=== PATIENT | female | born 1970 | race African-American/Black ===

== ENCOUNTER 2016-11-03 13:23 | Inpatient (IN) | payer MEDICAID ==
[2016-11-03] MEDS ORDERED: MORPHINE SULFATE 10 MG/ML INJ ONE (13:39)
[2016-11-03] MEDS ORDERED: HYDROMORPHONE HCL INJ/PF 2 MG/ML AMPULE ONE ×2 (14:25→19:50)
[2016-11-03] MEDS ORDERED: HYDROXYUREA 500 MG CAPSULE PO SCH (22:00)
[2016-11-03] MEDS ORDERED: WARFARIN SODIUM 5 MG TABLET PO SCH (22:00)
[2016-11-04] MEDS: OXYCODONE HCL SR 40 MG TABLET PO SCH ×3 (06:33→22:49)
[2016-11-04] MEDS: HYDROMORPHONE HCL INJ/PF 2 MG/ML AMPULE IV PRN ×5 (07:52→23:57)
[2016-11-04] MEDS: FOLIC ACID 1 MG TABLET PO SCH (09:06)
[2016-11-04 09:09] LABS: HEMATOCRIT 28.8 % (36.0-47.0); HEMOGLOBIN 9.7 g/dL (12.0-15.5); HGB HCT DIFFERENCE 0.3; MEAN CORPUSCULAR HGB CONC 33.8 g/dL (32.0-36.0); MEAN CORPUSCULAR VOLUME 136 fl (80-97); RED BLOOD COUNT 2.12 10^6/uL (3.72-5.28); RED CELL DISTRIBUTION WIDTH 18.8 % (11.5-14.0)
[2016-11-04 09:11] LABS: BASOPHILS % (MANUAL) 0 % (0-2); EOSINOPHILS % (MANUAL) 0 % (0-6); HYPOCHROMASIA 1+; LYMPHOCYTES % (MANUAL) 30 % (13-45); NUCLEATED RED BLOOD CELLS 80 /100 WBC (0); OVALOCYTES 1+; POIKILOCYTOSIS 2+; POLYCHROMASIA 2+; SCHISTOCYTES SLIGHT; TOTAL CELLS COUNTED 100
[2016-11-04 09:12] LABS: HOWELL-JOLLY BODIES PRESENT; RBC MORPHOLOGY COMMENT FOLDED RBCS NOTED
[2016-11-04 09:13] LABS: TEAR DROP CELLS SLIGHT
[2016-11-04] MEDS: OXYCODONE HCL IR 5 MG TABLET PO PRN (09:42)
--- NOTE | 2016-11-04 10:35 | EKG REPORT ---
SEVERITY:- NORMAL ECG - SINUS RHYTHM : Confirmed by: No Boss MD 04-Nov-2016 10:34:37
[2016-11-04] MEDS: ACETAMINOPHEN 325 MG TABLET PO PRN ×2 (12:53→20:02)
[2016-11-04 14:00] LABS: APPEARANCE,URINE CLEAR; BILIRUBIN,URINE NEGATIVE (NEGATIVE); GLUCOSE, URINE NEGATIVE (NEGATIVE); KETONES,URINE TRACE mg/dL (NEGATIVE); LEUKOCYTE ESTERASE,URINE NEGATIVE (NEGATIVE); NITRITE,URINE NEGATIVE (NEGATIVE); PROTEIN,URINE NEGATIVE (NEGATIVE); URINE SPECIFIC GRAVITY 1.009; UROBILINOGEN,URINE NEGATIVE mg/dL (<2.0)
[2016-11-04 15:42] LABS: BLOOD UREA NITROGEN 6 mg/dL (7-20); CALCIUM 9.9 mg/dL (8.4-10.2); CREATININE RESULT 0.59 mg/dL (0.52-1.25); GLUCOSE 106 mg/dL (75-110); POTASSIUM 3.6 mmol/L (3.6-5.0)
[2016-11-04 15:43] LABS: ALANINE AMINOTRANSFERASE 43 U/L (9-52); ALBUMIN 4.9 g/dL (3.5-5.0); ALKALINE PHOSPHATASE 179 U/L (38-126); ANION GAP 15 (5-19); ASPARTATE AMINO TRANSFERASE 50 U/L (14-36); BILIRUBIN,DIRECT 1.1 mg/dL (0.0-0.4); BILIRUBIN,TOTAL 4.6 mg/dL (0.2-1.3); CARBON DIOXIDE 19 mmol/L (22-30); CHLORIDE 112 mmol/L (98-107); SODIUM 146.2 mmol/L (137-145)
[2016-11-04 15:44] LABS: TOTAL PROTEIN 8.5 g/dL (6.3-8.2)
[2016-11-04] MEDS: ONDANSETRON HCL INJ/PF 4 MG/2 ML SDV IV PRN (16:08)
--- NOTE | 2016-11-04 20:00 | PDOC H&P ---
History of Present Illness Admission Date/PCP: 11/03/16 18:20 HOMA BARRAZA MD History of Present Illness: WILLIE ALAN is a 46 year old female, she has a history of sickle cell disease, she came to the emergency room because generalized body pain. She was seen in the emergency room and she was evaluated and she was advised to be admitted . The last admission for significant bone pain crisis was April 2016. 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 Past Surgical History Past Surgical History: Reports: Appendectomy, Section, Cholecystectomy , Orthopedic Surgery - R knee, Tonsillectomy Social History Smoking Status: Never Smoker Frequency of Alcohol Use: None Hx Recreational Drug Use: No Drugs: None Hx Prescription Drug Abuse: No Family History Family History: Reviewed & Not Pertinent Parental Family History Reviewed: Yes Children Family History Reviewed: Yes Sibling(s) Family History Reviewed.: Yes Medication/Allergy Home Medications: Epoetin Federico [Procrit] 35,000 unit IJ FR 11/03/16 Folic Acid [Folvite 1 mg Tablet] 1 mg PO DAILY 11/03/16 Hydroxyurea [Hydrea 500 Mg Capsule] 500 mg PO Q12 11/03/16 Ibuprofen [Motrin 800 mg Tablet] 800 mg PO BID 11/03/16 Multivitamin [Daily Multiple Vitamin] 1 each PO DAILY 11/03/16 Oxycodone HCl [Oxycontin Sr 40 mg Tablet] 40 mg PO Q8 11/03/16 Oxycodone HCl [Roxicodone] 30 mg PO Q6HP PRN 11/03/16 Rivaroxaban [Xarelto] 20 mg PO DAILY 11/03/16 Allergies/Adverse Reactions: doxycycline [Doxycycline] Allergy (Severe, Verified 10/31/14 18:48) morphine [Morphine] Allergy (Severe, Verified 10/31/14 18:48) unknown antibiotic Allergy (Uncoded 02/27/16 09:34) Review of Systems Constitutional: ABSENT: chills, fever(s), headache(s), weight gain, weight loss Eyes: ABSENT: visual disturbances Ears: ABSENT: hearing changes Cardiovascular: ABSENT: chest pain, dyspnea on exertion, edema, orthropnea, palpitations Respiratory: ABSENT: cough, hemoptysis Gastrointestinal: ABSENT: abdominal pain, constipation, diarrhea, hematemesis, hematochezia, nausea, vomiting Genitourinary: ABSENT: dysuria, hematuria Musculoskeletal: PRESENT: back pain, muscle weakness. ABSENT: joint swelling Integumentary: ABSENT: rash, wounds Neurological: ABSENT: abnormal gait, abnormal speech, confusion, dizziness, focal weakness, syncope Psychiatric: ABSENT: anxiety, depression, homidical ideation, suicidal ideation Endocrine: ABSENT: cold intolerance, heat intolerance, menstrual abnormalities, polydipsia, polyuria Hematologic/Lymphatic: ABSENT: easy bleeding, easy bruising, lymphadenopathy Physical Exam Vital Signs: Temp Pulse Resp BP Pulse Ox 98.2 F 65 19 109/67 97 11/04/16 15:00 11/04/16 15:00 11/04/16 15:00 11/04/16 15:00 11/04/16 15:00 Intake & Output 11/03/16 11/04/16 11/05/16 06:59 06:59 06:59 Intake Total 1440 1707 Output Total 0 1300 Balance 1440 407 Weight 59.4 kg General appearance: PRESENT: mild distress Head exam: PRESENT: atraumatic, normocephalic Eye exam: PRESENT: conjunctiva pink, EOMI, PERRLA Ear exam: PRESENT: normal external ear exam Mouth exam: PRESENT: moist, tongue midline Neck exam: PRESENT: full ROM Respiratory exam: PRESENT: clear to auscultation carolyn Cardiovascular exam: PRESENT: RRR, +S1, +S2 Pulses: PRESENT: normal dorsalis pedis pul, +2 pedal pulses bilateral Vascular exam: PRESENT: normal capillary refill GI/Abdominal exam: PRESENT: normal bowel sounds, soft Rectal exam: PRESENT: deferred Neurological exam: PRESENT: alert, awake, oriented to person, oriented to place , oriented to time, oriented to situation, CN II-XII grossly intact Psychiatric exam: PRESENT: appropriate affect, normal mood Skin exam: PRESENT: dry, intact, warm Results Impressions: Chest X-Ray 11/03/16 12:52 IMPRESSION: STABLE APPEARANCE OF THE CHEST. SUPPORT DEVICES UNCHANGED. Assessment & Plan - Diagnosis (1) Sickle cell anemia with crisis Is this a current diagnosis for this admission?: YesPlan: Admitted into the hospital for management
--- NOTE | 2016-11-04 20:03 | PDOC PROGRESS REPORT ---
Subjective Progress Note for:: 11/04/16 Subjective:: She was admitted yesterday for bone pain crisis from sickle cell disease Physical Exam Vital Signs: Temp Pulse Resp BP Pulse Ox 98.2 F 65 19 109/67 97 11/04/16 15:00 11/04/16 15:00 11/04/16 15:00 11/04/16 15:00 11/04/16 15:00 Intake & Output 11/03/16 11/04/16 11/05/16 06:59 06:59 06:59 Intake Total 1440 1707 Output Total 0 1300 Balance 1440 407 Weight 59.4 kg General appearance: PRESENT: mild distress Eye exam: PRESENT: PERRLA Neck exam: PRESENT: full ROM Respiratory exam: PRESENT: clear to auscultation carolyn Cardiovascular exam: PRESENT: RRR, +S1, +S2 GI/Abdominal exam: PRESENT: normal bowel sounds, soft Rectal exam: PRESENT: deferred Neurological exam: PRESENT: alert, awake, oriented to person, oriented to place , oriented to time, oriented to situation, CN II-XII grossly intact. ABSENT: motor sensory deficit Psychiatric exam: PRESENT: appropriate affect, normal mood. ABSENT: homicidal ideation, suicidal ideation Skin exam: PRESENT: dry, intact, warm Results Impressions: Chest X-Ray 11/03/16 12:52 IMPRESSION: STABLE APPEARANCE OF THE CHEST. SUPPORT DEVICES UNCHANGED. Assessment & Plan - Diagnosis (1) Sickle cell anemia with crisis Is this a current diagnosis for this admission?: YesPlan: She is presently on IV Dilaudid for pain control, IV fluids, there is no evidence of infection , treated with IV Toradol
[2016-11-04 21:16] LABS: HEMATOCRIT 22.2 % (36.0-47.0); HGB HCT DIFFERENCE 0.9; MEAN CORPUSCULAR HEMOGLOBIN 46.2 pg (27.0-33.4); MEAN CORPUSCULAR HGB CONC 34.7 g/dL (32.0-36.0); MEAN CORPUSCULAR VOLUME 133 fl (80-97); RED BLOOD COUNT 1.66 10^6/uL (3.72-5.28); RED CELL DISTRIBUTION WIDTH 17.8 % (11.5-14.0); WHITE BLOOD COUNT 4.6 10^3/uL (4.0-10.5)
[2016-11-04 21:27] LABS: ALANINE AMINOTRANSFERASE 37 U/L (9-52); ALBUMIN 3.9 g/dL (3.5-5.0); ALKALINE PHOSPHATASE 121 U/L (38-126); ANION GAP 9 (5-19); ASPARTATE AMINO TRANSFERASE 40 U/L (14-36); BILIRUBIN,DIRECT 0.8 mg/dL (0.0-0.4); BILIRUBIN,TOTAL 3.5 mg/dL (0.2-1.3); BLOOD UREA NITROGEN 4 mg/dL (7-20); CALCIUM 8.8 mg/dL (8.4-10.2); CARBON DIOXIDE 22 mmol/L (22-30); CHLORIDE 113 mmol/L (98-107); CREATININE RESULT 0.56 mg/dL (0.52-1.25); GLUCOSE 94 mg/dL (75-110); LDH 825 U/L (313-618); POTASSIUM 3.5 mmol/L (3.6-5.0); SODIUM 143.9 mmol/L (137-145); TOTAL PROTEIN 6.4 g/dL (6.3-8.2)
[2016-11-04 21:30] LABS: BASOPHILS % (MANUAL) 0 % (0-2); EOSINOPHILS % (MANUAL) 3 % (0-6); LYMPHOCYTES % (MANUAL) 44 % (13-45); NUCLEATED RED BLOOD CELLS 58 /100 WBC (0); TOTAL CELLS COUNTED 100
[2016-11-04 21:35] LABS: ANISOCYTOSIS 1+; HELMET CELLS SLIGHT; HOWELL-JOLLY BODIES PRESENT; OVALOCYTES SLIGHT; POIKILOCYTOSIS 2+; TARGET CELLS 1+
[2016-11-04 21:38] LABS: HEMOGLOBIN 7.7 g/dL (12.0-15.5)
[2016-11-04 22:02] LABS: PROTHROMBIN TIME 18.1 SEC (11.4-15.4)
[2016-11-04] MEDS: WARFARIN SODIUM 5 MG TABLET PO SCH (22:49)
[2016-11-04] MEDS: KETOROLAC TROMETHAMINE INJ/PF 30 MG/1 ML SDV IV SCH (23:57)
[2016-11-05] MEDS: HYDROMORPHONE HCL INJ/PF 2 MG/ML AMPULE IV PRN ×5 (03:56→21:45)
[2016-11-05] MEDS: OXYCODONE HCL SR 40 MG TABLET PO SCH ×3 (06:27→22:09)
[2016-11-05] MEDS: KETOROLAC TROMETHAMINE INJ/PF 30 MG/1 ML SDV IV SCH ×3 (06:28→17:34)
[2016-11-05 06:49] LABS: ALANINE AMINOTRANSFERASE 35 U/L (9-52); ALBUMIN 3.6 g/dL (3.5-5.0); ALKALINE PHOSPHATASE 125 U/L (38-126); ANION GAP 7 (5-19); ASPARTATE AMINO TRANSFERASE 38 U/L (14-36); BILIRUBIN,TOTAL 3.9 mg/dL (0.2-1.3); BLOOD UREA NITROGEN 6 mg/dL (7-20); CALCIUM 8.7 mg/dL (8.4-10.2); CARBON DIOXIDE 20 mmol/L (22-30); CHLORIDE 116 mmol/L (98-107); CREATININE RESULT 0.68 mg/dL (0.52-1.25); GLUCOSE 92 mg/dL (75-110); POTASSIUM 3.8 mmol/L (3.6-5.0); SODIUM 143.1 mmol/L (137-145); TOTAL PROTEIN 6.4 g/dL (6.3-8.2)
[2016-11-05 07:58] LABS: HEMATOCRIT 21.8 % (36.0-47.0); MEAN CORPUSCULAR HEMOGLOBIN 46.1 pg (27.0-33.4); MEAN CORPUSCULAR HGB CONC 34.6 g/dL (32.0-36.0); MEAN CORPUSCULAR VOLUME 133 fl (80-97); RED BLOOD COUNT 1.64 10^6/uL (3.72-5.28); RED CELL DISTRIBUTION WIDTH 18.3 % (11.5-14.0); WHITE BLOOD COUNT 4.1 10^3/uL (4.0-10.5)
[2016-11-05 08:31] LABS: HEMOGLOBIN 7.6 g/dL (12.0-15.5)
[2016-11-05 08:41] LABS: BASOPHILS % (MANUAL) 1 % (0-2); EOSINOPHILS % (MANUAL) 5 % (0-6); LYMPHOCYTES % (MANUAL) 44 % (13-45); NUCLEATED RED BLOOD CELLS 85 /100 WBC (0); TOTAL CELLS COUNTED 100
[2016-11-05 08:45] LABS: HOWELL-JOLLY BODIES PRESENT
[2016-11-05 08:55] LABS: STOMATOCYTES SLIGHT
[2016-11-05 08:56] LABS: OVALOCYTES 1+; SCHISTOCYTES 1+; TARGET CELLS 1+; TEAR DROP CELLS SLIGHT
[2016-11-05 09:00] LABS: ANISOCYTOSIS 2+
[2016-11-05 09:02] LABS: POIKILOCYTOSIS 1+
[2016-11-05] MEDS ORDERED: EPOETIN ALFA SUBCUT SCH (10:00)
[2016-11-05] MEDS ORDERED: DISPOSABLE SUBCUT SCH (10:00)
[2016-11-05] MEDS: FOLIC ACID 1 MG TABLET PO SCH (10:04)
[2016-11-05] MEDS: ONDANSETRON HCL INJ/PF 4 MG/2 ML SDV IV PRN ×2 (10:39→21:45)
[2016-11-05] MEDS: OXYCODONE HCL IR 5 MG TABLET PO PRN (10:39)
[2016-11-05] MEDS ORDERED: EPOETIN ALFA INJ 20000 UNIT/1 ML VIAL (RENAL) SUBCUT ONE (11:00)
[2016-11-05] MEDS ORDERED: EPOETIN ALFA INJ 40000 UNIT/1 ML (ONCOLOGY) SUBCUT ONE (11:00)
--- NOTE | 2016-11-05 21:47 | PDOC PROGRESS REPORT ---
Subjective Progress Note for:: 11/05/16 Subjective:: She complains of pain of multiple areas of the body Physical Exam Vital Signs: Temp Pulse Resp BP Pulse Ox 98.3 F 56 L 18 106/63 99 11/05/16 16:01 11/05/16 16:01 11/05/16 16:01 11/05/16 16:01 11/05/16 16:01 Intake & Output 11/04/16 11/05/16 11/06/16 06:59 06:59 06:59 Intake Total 1440 4355 1200 Output Total 0 2700 Balance 1440 1655 1200 Weight 59.4 kg General appearance: PRESENT: mild distress Eye exam: PRESENT: PERRLA Respiratory exam: PRESENT: clear to auscultation carolyn Cardiovascular exam: PRESENT: +S1, +S2 GI/Abdominal exam: PRESENT: soft Results Laboratory Results: 11/05/16 07:28 11/05/16 06:20 11/05/16 11/05/16 11/05/16 06:20 06:20 07:28 WBC Cancelled 4.1 RBC Cancelled 1.64 L Hgb Cancelled 7.6 L Hct Cancelled 21.8 L MCV Cancelled 133 H MCH Cancelled 46.1 H MCHC Cancelled 34.6 RDW Cancelled 18.3 H Plt Count Cancelled 135 L Seg Neutrophils % Cancelled Not Reportable Lymphocytes % Cancelled Not Reportable Monocytes % Cancelled Not Reportable Eosinophils % Cancelled Not Reportable Basophils % Cancelled Not Reportable Absolute Neutrophils Cancelled Not Reportable Absolute Lymphocytes Cancelled Not Reportable Absolute Monocytes Cancelled Not Reportable Absolute Eosinophils Cancelled Not Reportable Absolute Basophils Cancelled Not Reportable Sodium 143.1 Potassium 3.8 Chloride 116 H Carbon Dioxide 20 L Anion Gap 7 BUN 6 L Creatinine 0.68 Est GFR ( Amer) > 60 Est GFR (Non-Af Amer) > 60 Glucose 92 Calcium 8.7 Total Bilirubin 3.9 H AST 38 H ALT 35 Alkaline Phosphatase 125 Total Protein 6.4 Albumin 3.6 Impressions: Chest X-Ray 11/03/16 12:52 IMPRESSION: STABLE APPEARANCE OF THE CHEST. SUPPORT DEVICES UNCHANGED. Assessment & Plan - Diagnosis (1) Sickle cell anemia with crisis Is this a current diagnosis for this admission?: Yes
[2016-11-05] MEDS: WARFARIN SODIUM 5 MG TABLET PO SCH (22:09)
[2016-11-06] MEDS: OXYCODONE HCL IR 5 MG TABLET PO PRN ×2 (00:08→16:39)
[2016-11-06] MEDS: KETOROLAC TROMETHAMINE INJ/PF 30 MG/1 ML SDV IV SCH ×4 (00:09→17:22)
[2016-11-06] MEDS: HYDROMORPHONE HCL INJ/PF 2 MG/ML AMPULE IV PRN ×6 (01:54→22:47)
[2016-11-06] MEDS: OXYCODONE HCL SR 40 MG TABLET PO SCH ×3 (05:09→21:37)
[2016-11-06] MEDS: ONDANSETRON HCL INJ/PF 4 MG/2 ML SDV IV PRN ×2 (06:00→13:56)
[2016-11-06 06:38] LABS: APPEARANCE,URINE CLEAR; BILIRUBIN,URINE NEGATIVE (NEGATIVE); GLUCOSE, URINE NEGATIVE (NEGATIVE); KETONES,URINE NEGATIVE (NEGATIVE); LEUKOCYTE ESTERASE,URINE MODERATE (NEGATIVE); NITRITE,URINE NEGATIVE (NEGATIVE); PROTEIN,URINE NEGATIVE (NEGATIVE); URINE SPECIFIC GRAVITY 1.006
[2016-11-06 06:41] LABS: PROTHROMBIN TIME 16.8 SEC (11.4-15.4)
[2016-11-06] MEDS: FOLIC ACID 1 MG TABLET PO SCH (09:05)
--- NOTE | 2016-11-06 10:58 | PDOC PROGRESS REPORT ---
Subjective Progress Note for:: 11/06/16 Subjective:: Patient was admitted for the sickle cell crisis and currently doing fair patient is complaining of right leg pain which is chronic Denied any chest pain denied any shortness of breath Physical Exam Vital Signs: Temp Pulse Resp BP Pulse Ox 98.5 F 66 16 105/63 96 11/06/16 07:58 11/06/16 07:58 11/06/16 07:58 11/06/16 07:58 11/06/16 07:58 Intake & Output 11/05/16 11/06/16 11/07/16 06:59 06:59 06:59 Intake Total 4355 2700 Output Total 2700 1800 Balance 1655 900 General appearance: PRESENT: no acute distress, well-developed, well-nourished Head exam: PRESENT: atraumatic, normocephalic Eye exam: PRESENT: conjunctiva pink, EOMI, PERRLA. ABSENT: scleral icterus Ear exam: PRESENT: normal external ear exam Mouth exam: PRESENT: moist, tongue midline Neck exam: PRESENT: full ROM. ABSENT: carotid bruit, JVD, lymphadenopathy, thyromegaly Cardiovascular exam: PRESENT: RRR. ABSENT: diastolic murmur, rubs, systolic murmur Pulses: PRESENT: normal dorsalis pedis pul, +2 pedal pulses bilateral Vascular exam: PRESENT: normal capillary refill GI/Abdominal exam: PRESENT: normal bowel sounds, soft. ABSENT: distended, guarding, mass, organolmegaly, rebound, tenderness Rectal exam: PRESENT: deferred Additional comments: On the right leg with the chronic status dermatitis Neurological exam: PRESENT: alert, awake, oriented to person, oriented to place , oriented to time, oriented to situation, CN II-XII grossly intact. ABSENT: motor sensory deficit Psychiatric exam: PRESENT: appropriate affect, normal mood. ABSENT: homicidal ideation, suicidal ideation Skin exam: PRESENT: dry, intact, warm. ABSENT: cyanosis, rash Results Laboratory Results: 11/05/16 07:28 11/05/16 06:20 11/06/16 06:10 Urine Color YELLOW Urine Appearance CLEAR Urine pH 6.0 Ur Specific [place] 1.006 Urine Protein NEGATIVE Urine Glucose (UA) NEGATIVE Urine Ketones NEGATIVE Urine Blood SMALL H Urine Nitrite NEGATIVE Ur Leukocyte Esterase MODERATE H Urine WBC (Auto) 4 Urine RBC (Auto) 1 Impressions: Chest X-Ray 11/03/16 12:52 IMPRESSION: STABLE APPEARANCE OF THE CHEST. SUPPORT DEVICES UNCHANGED. Assessment & Plan - Diagnosis (1) Sickle cell anemia with crisis Is this a current diagnosis for this admission?: YesPlan: Continues to current medications (2) Anemia Qualifiers: Anemia type: unspecified type Qualified Code(s): D64.9 - Anemia, unspecified Is this a current diagnosis for this admission?: YesPlan: Currently stable - Time Time Spent with patient: 15-24 minutes Medications reviewed and adjusted accordingly: Yes Anticipated discharge: Home, Other Within: Other - Inpatient Certification Medical Necessity: Need Close Monitoring Due to Risk of Patient Decompensation Post Hospital Care: D/C Property Field Inspector Documentation - Plan Summary Plan Summary: We will check a CBC and Chem-7 in the morning
[2016-11-06] MEDS: NORMAL SALINE 1000 ML 1,000 ML IV PRN (16:45)
[2016-11-06] MEDS: WARFARIN SODIUM 5 MG TABLET PO SCH (21:38)
[2016-11-07] MEDS: KETOROLAC TROMETHAMINE INJ/PF 30 MG/1 ML SDV IV SCH ×5 (00:42→23:57)
[2016-11-07] MEDS: HYDROMORPHONE HCL INJ/PF 2 MG/ML AMPULE IV PRN ×6 (03:02→23:03)
[2016-11-07] MEDS: OXYCODONE HCL SR 40 MG TABLET PO SCH ×3 (05:39→21:27)
[2016-11-07 05:43] LABS: ANION GAP 8 (5-19); BLOOD UREA NITROGEN 9 mg/dL (7-20); CALCIUM 8.6 mg/dL (8.4-10.2); CARBON DIOXIDE 21 mmol/L (22-30); CHLORIDE 114 mmol/L (98-107); CREATININE RESULT 0.69 mg/dL (0.52-1.25); GLUCOSE 97 mg/dL (75-110); POTASSIUM 3.5 mmol/L (3.6-5.0); SODIUM 143.3 mmol/L (137-145)
[2016-11-07 06:31] LABS: PROTHROMBIN TIME 17.4 SEC (11.4-15.4)
[2016-11-07] MEDS: OXYCODONE HCL IR 5 MG TABLET PO PRN (09:19)
[2016-11-07] MEDS: FOLIC ACID 1 MG TABLET PO SCH (09:21)
--- NOTE | 2016-11-07 10:45 | PDOC PROGRESS REPORT ---
Subjective Progress Note for:: 11/07/16 Subjective:: Patient is doing same still complains of pain in the leg and the hand. Patient' s all blood work is currently stable Physical Exam Vital Signs: Temp Pulse Resp BP Pulse Ox 98.4 F 70 20 100/60 97 11/07/16 08:00 11/07/16 08:00 11/07/16 08:00 11/07/16 08:00 11/07/16 08:00 Intake & Output 11/06/16 11/07/16 11/08/16 06:59 06:59 06:59 Intake Total 2700 3326 Output Total 1800 3100 Balance 900 226 Weight 65.8 kg General appearance: PRESENT: no acute distress, well-developed, well-nourished Head exam: PRESENT: atraumatic, normocephalic Eye exam: PRESENT: conjunctiva pink, EOMI, PERRLA. ABSENT: scleral icterus Ear exam: PRESENT: normal external ear exam Mouth exam: PRESENT: moist, tongue midline Neck exam: PRESENT: full ROM. ABSENT: carotid bruit, JVD, lymphadenopathy, thyromegaly Cardiovascular exam: PRESENT: RRR. ABSENT: diastolic murmur, rubs, systolic murmur Pulses: PRESENT: normal dorsalis pedis pul, +2 pedal pulses bilateral Vascular exam: PRESENT: normal capillary refill GI/Abdominal exam: PRESENT: normal bowel sounds, soft. ABSENT: distended, guarding, mass, organolmegaly, rebound, tenderness Rectal exam: PRESENT: deferred Extremities exam: PRESENT: other Additional comments: Chronic status dermatitis type of the changes in the lower extremities especially on the left leg Neurological exam: PRESENT: alert, awake, oriented to person, oriented to place , oriented to time, oriented to situation, CN II-XII grossly intact. ABSENT: motor sensory deficit Psychiatric exam: PRESENT: appropriate affect, normal mood. ABSENT: homicidal ideation, suicidal ideation Skin exam: PRESENT: dry, intact, warm. ABSENT: cyanosis, rash Results Laboratory Results: 11/05/16 07:28 11/07/16 05:00 11/07/16 05:00 Sodium 143.3 Potassium 3.5 L Chloride 114 H Carbon Dioxide 21 L Anion Gap 8 BUN 9 Creatinine 0.69 Est GFR ( Amer) > 60 Est GFR (Non-Af Amer) > 60 Glucose 97 Calcium 8.6 Impressions: Chest X-Ray 11/03/16 12:52 IMPRESSION: STABLE APPEARANCE OF THE CHEST. SUPPORT DEVICES UNCHANGED. Assessment & Plan - Diagnosis (1) Sickle cell anemia with crisis Is this a current diagnosis for this admission?: YesPlan: Continues to current medications (2) Anemia Qualifiers: Anemia type: unspecified type Qualified Code(s): D64.9 - Anemia, unspecified Is this a current diagnosis for this admission?: YesPlan: Currently stable - Time Time Spent with patient: 15-24 minutes Medications reviewed and adjusted accordingly: Yes Anticipated discharge: Home Within: Other - Inpatient Certification Medical Necessity: Need Close Monitoring Due to Risk of Patient Decompensation Post Hospital Care: D/C Medical Imaging Tech Documentation - Plan Summary Plan Summary: Continues to current medications
[2016-11-07] MEDS: ONDANSETRON HCL INJ/PF 4 MG/2 ML SDV IV PRN ×2 (10:47→23:03)
[2016-11-07] MEDS ORDERED: POTASSIUM CHLORIDE 10 MEQ TABLET.SA PO ONE (11:30)
[2016-11-07] MEDS: NORMAL SALINE 1000 ML 1,000 ML IV PRN (14:24)
[2016-11-07] MEDS: WARFARIN SODIUM 5 MG TABLET PO SCH (21:27)
[2016-11-08] MEDS: NORMAL SALINE 1000 ML 1,000 ML IV PRN (01:46)
[2016-11-08] MEDS: OXYCODONE HCL IR 5 MG TABLET PO PRN ×2 (01:48→16:29)
[2016-11-08] MEDS: HYDROMORPHONE HCL INJ/PF 2 MG/ML AMPULE IV PRN ×4 (03:13→19:47)
[2016-11-08] MEDS: KETOROLAC TROMETHAMINE INJ/PF 30 MG/1 ML SDV IV SCH ×3 (05:19→18:27)
[2016-11-08] MEDS: OXYCODONE HCL SR 40 MG TABLET PO SCH ×3 (05:19→23:01)
[2016-11-08 06:07] LABS: PROTHROMBIN TIME 17.4 SEC (11.4-15.4)
[2016-11-08 06:23] LABS: ANION GAP 10 (5-19); BLOOD UREA NITROGEN 10 mg/dL (7-20); CALCIUM 8.7 mg/dL (8.4-10.2); CARBON DIOXIDE 20 mmol/L (22-30); CHLORIDE 112 mmol/L (98-107); CREATININE RESULT 0.68 mg/dL (0.52-1.25); GLUCOSE 97 mg/dL (75-110); POTASSIUM 3.8 mmol/L (3.6-5.0); SODIUM 142.2 mmol/L (137-145)
[2016-11-08] MEDS: ONDANSETRON HCL INJ/PF 4 MG/2 ML SDV IV PRN (07:04)
[2016-11-08] MEDS: FOLIC ACID 1 MG TABLET PO SCH (11:16)
--- NOTE | 2016-11-08 16:50 | PDOC PROGRESS REPORT ---
Subjective Progress Note for:: 11/08/16 Subjective:: She was seen by the bedside, she continues to complain of pain of many joints. Physical Exam Vital Signs: Temp Pulse Resp BP Pulse Ox 98.5 F 57 L 20 115/63 98 11/08/16 11:07 11/08/16 11:07 11/08/16 11:07 11/08/16 11:07 11/08/16 11:07 Intake & Output 11/07/16 11/08/16 11/09/16 06:59 06:59 06:59 Intake Total 3326 3230 Output Total 3100 1300 Balance 226 1930 Weight 65.8 kg 66.6 kg General appearance: PRESENT: mild distress Eye exam: PRESENT: PERRLA Respiratory exam: PRESENT: clear to auscultation carolyn Cardiovascular exam: PRESENT: +S1, +S2 GI/Abdominal exam: PRESENT: soft Neurological exam: PRESENT: alert Results Laboratory Results: 11/05/16 07:28 11/08/16 05:15 11/08/16 05:15 Sodium 142.2 Potassium 3.8 Chloride 112 H Carbon Dioxide 20 L Anion Gap 10 BUN 10 Creatinine 0.68 Est GFR ( Amer) > 60 Est GFR (Non-Af Amer) > 60 Glucose 97 Calcium 8.7 Impressions: Chest X-Ray 11/03/16 12:52 IMPRESSION: STABLE APPEARANCE OF THE CHEST. SUPPORT DEVICES UNCHANGED. Assessment & Plan - Diagnosis (1) Sickle cell anemia with crisis Is this a current diagnosis for this admission?: YesPlan: Continue Present
[2016-11-08 18:58] LABS: HEMATOCRIT 22.4 % (36.0-47.0); HGB HCT DIFFERENCE 0.7; MEAN CORPUSCULAR HEMOGLOBIN 45.2 pg (27.0-33.4); MEAN CORPUSCULAR HGB CONC 34.2 g/dL (32.0-36.0); MEAN CORPUSCULAR VOLUME 132 fl (80-97); RED CELL DISTRIBUTION WIDTH 17.2 % (11.5-14.0); WHITE BLOOD COUNT 3.6 10^3/uL (4.0-10.5)
[2016-11-08 19:22] LABS: BASOPHILS % (MANUAL) 1 % (0-2); EOSINOPHILS % (MANUAL) 15 % (0-6); LYMPHOCYTES % (MANUAL) 37 % (13-45); NUCLEATED RED BLOOD CELLS 14 /100 WBC (0); TOTAL CELLS COUNTED 100
[2016-11-08 19:25] LABS: OVALOCYTES 1+; POLYCHROMASIA SLIGHT; TARGET CELLS 1+
[2016-11-08 19:26] LABS: ANISOCYTOSIS 1+; SCHISTOCYTES SLIGHT
[2016-11-08 19:29] LABS: HEMOGLOBIN 7.7 g/dL (12.0-15.5)
[2016-11-08] MEDS: WARFARIN SODIUM 5 MG TABLET PO SCH (23:13)
[2016-11-09] MEDS: KETOROLAC TROMETHAMINE INJ/PF 30 MG/1 ML SDV IV SCH ×5 (00:08→23:57)
[2016-11-09] MEDS: HYDROMORPHONE HCL INJ/PF 2 MG/ML AMPULE IV PRN ×6 (00:09→20:01)
[2016-11-09] MEDS: ONDANSETRON HCL INJ/PF 4 MG/2 ML SDV IV PRN ×3 (04:00→20:01)
[2016-11-09] MEDS: OXYCODONE HCL SR 40 MG TABLET PO SCH ×3 (06:03→21:45)
[2016-11-09] MEDS: NORMAL SALINE 1000 ML 1,000 ML IV PRN ×2 (06:03→16:11)
[2016-11-09 06:41] LABS: PROTHROMBIN TIME 19.9 SEC (11.4-15.4)
[2016-11-09 06:48] LABS: ANION GAP 9 (5-19); BLOOD UREA NITROGEN 9 mg/dL (7-20); CALCIUM 8.8 mg/dL (8.4-10.2); CARBON DIOXIDE 21 mmol/L (22-30); CHLORIDE 112 mmol/L (98-107); CREATININE RESULT 0.62 mg/dL (0.52-1.25); GLUCOSE 82 mg/dL (75-110); POTASSIUM 3.8 mmol/L (3.6-5.0)
[2016-11-09] MEDS: FOLIC ACID 1 MG TABLET PO SCH (10:09)
[2016-11-09 16:01] LABS: APPEARANCE,URINE CLEAR; BILIRUBIN,URINE NEGATIVE (NEGATIVE); GLUCOSE, URINE NEGATIVE (NEGATIVE); KETONES,URINE NEGATIVE (NEGATIVE); LEUKOCYTE ESTERASE,URINE TRACE (NEGATIVE); NITRITE,URINE NEGATIVE (NEGATIVE); PROTEIN,URINE NEGATIVE (NEGATIVE); URINE SPECIFIC GRAVITY 1.006; UROBILINOGEN,URINE NEGATIVE mg/dL (<2.0)
--- NOTE | 2016-11-09 18:47 | PDOC PROGRESS REPORT ---
Subjective Progress Note for:: 11/09/16 Subjective:: Seen by the bedside, she is still complain of pain pain but improving. Physical Exam Vital Signs: Temp Pulse Resp BP Pulse Ox 98.3 F 72 18 125/76 100 11/09/16 12:18 11/09/16 12:18 11/09/16 12:18 11/09/16 12:18 11/09/16 12:18 Intake & Output 11/08/16 11/09/16 11/10/16 06:59 06:59 06:59 Intake Total 4778 3330 1740 Output Total 2500 2100 Balance 2278 3330 -360 Weight 66.6 kg General appearance: PRESENT: no acute distress Head exam: PRESENT: atraumatic, normocephalic Eye exam: PRESENT: PERRLA Mouth exam: PRESENT: moist, tongue midline Neck exam: PRESENT: full ROM Respiratory exam: PRESENT: clear to auscultation carolyn Cardiovascular exam: PRESENT: +S1, +S2 Pulses: PRESENT: normal dorsalis pedis pul, +2 pedal pulses bilateral Vascular exam: PRESENT: normal capillary refill GI/Abdominal exam: PRESENT: normal bowel sounds, soft Rectal exam: PRESENT: deferred Neurological exam: PRESENT: alert, awake, oriented to person, oriented to place , oriented to time, oriented to situation, CN II-XII grossly intact Psychiatric exam: PRESENT: appropriate affect, normal mood Skin exam: PRESENT: dry, intact, warm Results Laboratory Results: 11/08/16 18:05 11/09/16 06:03 11/08/16 11/09/16 11/09/16 18:05 06:03 12:00 WBC 3.6 L RBC 1.70 L Hgb 7.7 L Hct 22.4 L MCV 132 H MCH 45.2 H MCHC 34.2 RDW 17.2 H Plt Count 82 L Seg Neutrophils % Not Reportable Lymphocytes % Not Reportable Monocytes % Not Reportable Eosinophils % Not Reportable Basophils % Not Reportable Absolute Neutrophils Not Reportable Absolute Lymphocytes Not Reportable Absolute Monocytes Not Reportable Absolute Eosinophils Not Reportable Absolute Basophils Not Reportable Sodium 142.0 Potassium 3.8 Chloride 112 H Carbon Dioxide 21 L Anion Gap 9 BUN 9 Creatinine 0.62 Est GFR ( Amer) > 60 Est GFR (Non-Af Amer) > 60 Glucose 82 Calcium 8.8 Urine Color Urine Appearance Urine pH Ur Specific [place] Urine Protein Urine Glucose (UA) Urine Ketones Urine Blood Urine Nitrite Ur Leukocyte Esterase Urine WBC (Auto) Urine RBC (Auto) Stool Occult Blood NEGATIVE 11/09/16 15:50 WBC RBC Hgb Hct MCV MCH MCHC RDW Plt Count Seg Neutrophils % Lymphocytes % Monocytes % Eosinophils % Basophils % Absolute Neutrophils Absolute Lymphocytes Absolute Monocytes Absolute Eosinophils Absolute Basophils Sodium Potassium Chloride Carbon Dioxide Anion Gap BUN Creatinine Est GFR ( Amer) Est GFR (Non-Af Amer) Glucose Calcium Urine Color YELLOW Urine Appearance CLEAR Urine pH 6.0 Ur Specific [place] 1.006 Urine Protein NEGATIVE Urine Glucose (UA) NEGATIVE Urine Ketones NEGATIVE Urine Blood SMALL H Urine Nitrite NEGATIVE Ur Leukocyte Esterase TRACE H Urine WBC (Auto) 3 Urine RBC (Auto) 1 Stool Occult Blood Impressions: Chest X-Ray 11/03/16 12:52 IMPRESSION: STABLE APPEARANCE OF THE CHEST. SUPPORT DEVICES UNCHANGED. Assessment & Plan - Diagnosis (1) Sickle cell anemia with crisis Is this a current diagnosis for this admission?: YesPlan: Continue Present
[2016-11-09] MEDS: WARFARIN SODIUM 5 MG TABLET PO SCH (21:45)
[2016-11-10] MEDS: HYDROMORPHONE HCL INJ/PF 2 MG/ML AMPULE IV PRN ×6 (00:34→20:26)
[2016-11-10] MEDS: ONDANSETRON HCL INJ/PF 4 MG/2 ML SDV IV PRN ×3 (04:21→16:27)
[2016-11-10] MEDS: OXYCODONE HCL SR 40 MG TABLET PO SCH ×2 (06:17→13:45)
[2016-11-10] MEDS: FOLIC ACID 1 MG TABLET PO SCH (09:02)
[2016-11-10 11:14] LABS: APPEARANCE,URINE CLEAR; BILIRUBIN,URINE NEGATIVE (NEGATIVE); GLUCOSE, URINE NEGATIVE (NEGATIVE); KETONES,URINE NEGATIVE (NEGATIVE); LEUKOCYTE ESTERASE,URINE TRACE (NEGATIVE); NITRITE,URINE NEGATIVE (NEGATIVE); PROTEIN,URINE NEGATIVE (NEGATIVE); URINE SPECIFIC GRAVITY 1.006; UROBILINOGEN,URINE NEGATIVE mg/dL (<2.0)
--- NOTE | 2016-11-10 14:40 | PDOC PROGRESS REPORT ---
Subjective Progress Note for:: 11/10/16 Subjective:: she was seen by the bedside ,she continues to complains of pain Physical Exam Vital Signs: Temp Pulse Resp BP Pulse Ox 98.7 F 55 L 18 124/63 99 11/10/16 11:53 11/10/16 11:53 11/10/16 11:53 11/10/16 11:53 11/10/16 11:53 Intake & Output 11/09/16 11/10/16 11/11/16 06:59 06:59 06:59 Intake Total 3330 3829 1200 Output Total 3700 Balance 3330 129 1200 General appearance: PRESENT: no acute distress Eye exam: PRESENT: PERRLA Respiratory exam: PRESENT: clear to auscultation carolyn Cardiovascular exam: PRESENT: +S1, +S2 GI/Abdominal exam: PRESENT: soft Results Laboratory Results: 11/08/16 18:05 11/09/16 06:03 11/09/16 11/10/16 15:50 10:35 Urine Color YELLOW YELLOW Urine Appearance CLEAR CLEAR Urine pH 6.0 6.0 Ur Specific [place] 1.006 1.006 Urine Protein NEGATIVE NEGATIVE Urine Glucose (UA) NEGATIVE NEGATIVE Urine Ketones NEGATIVE NEGATIVE Urine Blood SMALL H SMALL H Urine Nitrite NEGATIVE NEGATIVE Ur Leukocyte Esterase TRACE H TRACE H Urine WBC (Auto) 3 2 Urine RBC (Auto) 1 1 Impressions: Chest X-Ray 11/03/16 12:52 IMPRESSION: STABLE APPEARANCE OF THE CHEST. SUPPORT DEVICES UNCHANGED. Assessment & Plan - Diagnosis (1) Sickle cell anemia with crisis Is this a current diagnosis for this admission?: YesPlan: Continue Present
[2016-11-10] MEDS: WARFARIN SODIUM 5 MG TABLET PO SCH (21:53)
[2016-11-11] MEDS ORDERED: HYDROMORPHONE HCL INJ/PF 2 MG/ML AMPULE ONE (00:43)
[2016-11-11] MEDS: ONDANSETRON HCL INJ/PF 4 MG/2 ML SDV IV PRN ×3 (00:46→17:17)
[2016-11-11] MEDS: HYDROMORPHONE HCL INJ/PF 2 MG/ML AMPULE IV PRN ×6 (00:53→21:14)
[2016-11-11 06:09] LABS: HEMATOCRIT 21.4 % (36.0-47.0); HGB HCT DIFFERENCE 0.5; MEAN CORPUSCULAR HGB CONC 34.1 g/dL (32.0-36.0); MEAN CORPUSCULAR VOLUME 132 fl (80-97); RED BLOOD COUNT 1.63 10^6/uL (3.72-5.28); RED CELL DISTRIBUTION WIDTH 17.4 % (11.5-14.0); WHITE BLOOD COUNT 4.3 10^3/uL (4.0-10.5)
[2016-11-11 07:14] LABS: HEMOGLOBIN 7.3 g/dL (12.0-15.5)
[2016-11-11] MEDS: OXYCODONE HCL IR 5 MG TABLET PO PRN (08:00)
[2016-11-11] MEDS: FOLIC ACID 1 MG TABLET PO SCH (09:13)
[2016-11-11] MEDS ORDERED: OXYCODONE HCL SR 40 MG TABLET PO ONE (16:00)
--- NOTE | 2016-11-11 20:06 | PDOC PROGRESS REPORT ---
Subjective Progress Note for:: 11/11/16 Subjective:: She was seen by the bedside, she complained of pain in the right shoulder, she stated that she cannot elevate the right shoulder. She was admitted because of bone pain crisis and sickle cell disease. she Continues to complain of pain involving the legs and other body parts. Physical Exam Vital Signs: Temp Pulse Resp BP Pulse Ox 98.9 F 50 L 21 H 124/62 99 11/11/16 16:00 11/11/16 16:00 11/11/16 16:00 11/11/16 16:00 11/11/16 16:00 Intake & Output 11/10/16 11/11/16 11/12/16 06:59 06:59 06:59 Intake Total 3829 3484 1680 Output Total 3700 2550 1100 Balance 129 934 580 General appearance: PRESENT: mild distress Eye exam: PRESENT: PERRLA Respiratory exam: PRESENT: clear to auscultation carolyn Cardiovascular exam: PRESENT: +S1, +S2 Extremities exam: PRESENT: joint swelling - Limitation of range of motion of the right shoulder Results Laboratory Results: 11/11/16 05:20 11/09/16 06:03 11/11/16 05:20 WBC 4.3 RBC 1.63 L Hgb 7.3 L Hct 21.4 L MCV 132 H MCH 45.0 H MCHC 34.1 RDW 17.4 H Plt Count 77 L Impressions: Chest X-Ray 11/03/16 12:52 IMPRESSION: STABLE APPEARANCE OF THE CHEST. SUPPORT DEVICES UNCHANGED. Assessment & Plan - Diagnosis (1) Sickle cell anemia with crisis Is this a current diagnosis for this admission?: Yes (2) Right shoulder pain Qualifiers: Chronicity: acute Qualified Code(s): M25.511 - Pain in right shoulder Is this a current diagnosis for this admission?: YesPlan: MRI of the right shoulder is ordered
[2016-11-11] MEDS: OXYCODONE HCL SR 40 MG TABLET PO SCH (22:06)
[2016-11-11] MEDS: WARFARIN SODIUM 5 MG TABLET PO SCH (22:06)
[2016-11-12] MEDS: HYDROMORPHONE HCL INJ/PF 2 MG/ML AMPULE IV PRN ×6 (01:17→23:20)
[2016-11-12] MEDS: ONDANSETRON HCL INJ/PF 4 MG/2 ML SDV IV PRN ×3 (05:22→23:20)
[2016-11-12] MEDS: OXYCODONE HCL SR 40 MG TABLET PO SCH ×3 (05:22→22:41)
[2016-11-12] MEDS: FOLIC ACID 1 MG TABLET PO SCH (10:01)
--- NOTE | 2016-11-12 17:06 | PDOC PROGRESS REPORT ---
Subjective Progress Note for:: 11/12/16 Subjective:: MRI of the right shoulder was done, it showed of rotator cuff. She complained of pain in multiple joints Physical Exam Vital Signs: Temp Pulse Resp BP Pulse Ox 98.8 F 72 20 102/53 L 98 11/12/16 11:14 11/12/16 11:14 11/12/16 11:14 11/12/16 11:14 11/12/16 11:14 Intake & Output 11/11/16 11/12/16 11/13/16 06:59 06:59 06:59 Intake Total 3484 2980 Output Total 2550 2300 Balance 934 680 Weight 66.7 kg General appearance: PRESENT: mild distress Eye exam: PRESENT: PERRLA Respiratory exam: PRESENT: clear to auscultation carolyn Cardiovascular exam: PRESENT: +S1, +S2 GI/Abdominal exam: PRESENT: soft Results Laboratory Results: 11/11/16 05:20 11/09/16 06:03 Impressions: Chest X-Ray 11/03/16 12:52 IMPRESSION: STABLE APPEARANCE OF THE CHEST. SUPPORT DEVICES UNCHANGED. Assessment & Plan - Diagnosis (1) Sickle cell anemia with crisis Is this a current diagnosis for this admission?: Yes (2) Left rotator cuff tear Qualifiers: Rotator cuff tear extent: incomplete Qualified Code(s): M75.112 - Incomplete rotator cuff tear or rupture of left shoulder, not specified as traumatic Is this a current diagnosis for this admission?: Yes
[2016-11-12] MEDS: NORMAL SALINE 1000 ML 1,000 ML IV PRN (17:17)
[2016-11-12] MEDS: OXYCODONE HCL IR 5 MG TABLET PO PRN (17:17)
--- NOTE | 2016-11-12 17:23 | RADIOLOGY REPORT (SQ) ---
EXAM DESCRIPTION: MRI RT UPPER JOINT WITHOUT COMPLETED DATE/TIME: 11/12/2016 4:44 pm REASON FOR STUDY: RT shoulder pain COMPARISON: MRI right shoulder 05/19/2016 Right humerus radiographs 05/20/2016 TECHNIQUE: Right shoulder images acquired and stored on PACS. Multiplanar imaging to include fat sen sitive sequences such as T1, water sensitive sequences such as FST2/STIR, cartilage sensitive sequenc es such as FSPD/gradient-echo sequences. LIMITATIONS: None. 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 Set there is red marrow conversion in the right humeral head and scapula related to the patient's sic kle cell anemia. No gross fracture. JOINT OR BURSAL EFFUSION: Trace fluid in the subacromial/subdeltoid bursa on sagittal image 11 and co corine image 10 GLENO-HUMERAL ARTICULATION: Normal articulation. No subluxation. No cystic change. No osteophytes or cartilage loss. ACROMION AND AC JOINT: Type 2 acromion No down-sloping or distal spur. Sub-acromial space maintaine d. No significant AC joint arthropathy. ROTATOR CUFF AND INTERVAL: The anterior half of the supraspinatus tendon is very thin and high in sig nal from tendinopathy and high-grade partial thickness tear. This is best shown on coronal images 8- 11, and sagittal images 3-7. Mild tendinopathy in the infraspinatus tendon. subscapularis is intact . No rotator interval tear. No rotator interval thickening to suggest adhesive capsulitis. LABRUM AND BICEPS LABRAL COMPLEX: Mild intra-articular long head biceps tendinopathy. Mild increas ed intrinsic signal in the superior labrum small tear extending into the posterosuperior labrum. No paralabral cyst. REMAINDER OF LABRUM AND IGHL : No gross tear or paralabral cyst formation. Labral evaluation is less than optimal without joint distention. No thickening of IGHL to suggest adhesive capsulitis. PERIARTICULAR AND ADJACENT SOFT TISSUES: No masses or abnormal nodes. OTHER: No other significant finding. IMPRESSION: Persistent marrow signal abnormalities in the proximal right humeral diaphysis from bony infarct. High-grade partial thickness tear in the anterior half of the supraspinatus tendon Small superior labral tear without paralabral cyst TECHNICAL DOCUMENTATION: JOB ID: [id number] [facility]- All Rights Reserved
[2016-11-12] MEDS: WARFARIN SODIUM 5 MG TABLET PO SCH (22:41)
[2016-11-13] MEDS: HYDROMORPHONE HCL INJ/PF 2 MG/ML AMPULE IV PRN ×6 (03:22→23:33)
[2016-11-13] MEDS: OXYCODONE HCL SR 40 MG TABLET PO SCH ×3 (05:34→22:22)
[2016-11-13] MEDS: ONDANSETRON HCL INJ/PF 4 MG/2 ML SDV IV PRN ×3 (07:30→23:33)
[2016-11-13] MEDS: FOLIC ACID 1 MG TABLET PO SCH (10:27)
[2016-11-13] MEDS: NORMAL SALINE 1000 ML 1,000 ML IV PRN ×2 (12:34→23:33)
--- NOTE | 2016-11-13 14:21 | PDOC PROGRESS REPORT ---
Subjective Progress Note for:: 11/13/16 Subjective:: MRI of the right shoulder was done, it showed of rotator cuff. She complained of pain in multiple joints Physical Exam Vital Signs: Temp Pulse Resp BP Pulse Ox 98.5 F 50 L 18 111/58 L 100 11/13/16 11:55 11/13/16 11:55 11/13/16 11:55 11/13/16 11:55 11/13/16 11:55 Intake & Output 11/12/16 11/13/16 11/14/16 06:59 06:59 06:59 Intake Total 3837 1520 Output Total 4300 1950 Balance -463 -430 Weight 66.7 kg General appearance: PRESENT: no acute distress Eye exam: PRESENT: PERRLA Cardiovascular exam: PRESENT: +S1, +S2 GI/Abdominal exam: PRESENT: soft Neurological exam: PRESENT: alert Results Laboratory Results: 11/11/16 05:20 11/09/16 06:03 Impressions: Chest X-Ray 11/03/16 12:52 IMPRESSION: STABLE APPEARANCE OF THE CHEST. SUPPORT DEVICES UNCHANGED. 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 High-grade partial thickness tear in the anterior half of the supraspinatus tendon Small superior labral tear without paralabral cyst Assessment & Plan - Diagnosis (1) Sickle cell anemia with crisis Is this a current diagnosis for this admission?: Yes (2) Left rotator cuff tear Qualifiers: Rotator cuff tear extent: incomplete Qualified Code(s): M75.112 - Incomplete rotator cuff tear or rupture of left shoulder, not specified as traumatic Is this a current diagnosis for this admission?: Yes
[2016-11-13 16:15] LABS: APPEARANCE,URINE CLEAR; BILIRUBIN,URINE NEGATIVE (NEGATIVE); GLUCOSE, URINE NEGATIVE (NEGATIVE); KETONES,URINE NEGATIVE (NEGATIVE); LEUKOCYTE ESTERASE,URINE TRACE (NEGATIVE); NITRITE,URINE NEGATIVE (NEGATIVE); PROTEIN,URINE NEGATIVE (NEGATIVE); URINE SPECIFIC GRAVITY 1.005; UROBILINOGEN,URINE NEGATIVE mg/dL (<2.0)
[2016-11-13] MEDS: OXYCODONE HCL IR 5 MG TABLET PO PRN (17:39)
[2016-11-13] MEDS: WARFARIN SODIUM 5 MG TABLET PO SCH (22:21)
[2016-11-14] MEDS: HYDROMORPHONE HCL INJ/PF 2 MG/ML AMPULE IV PRN ×6 (03:30→23:36)
[2016-11-14] MEDS: DIPHENHYDRAMINE HCL 50 MG/ML VIAL IV PRN ×2 (03:30→23:37)
[2016-11-14] MEDS: OXYCODONE HCL SR 40 MG TABLET PO SCH ×3 (06:32→22:58)
[2016-11-14] MEDS: ONDANSETRON HCL INJ/PF 4 MG/2 ML SDV IV PRN ×3 (07:27→23:36)
[2016-11-14 07:55] LABS: PROTHROMBIN TIME 25.4 SEC (11.4-15.4)
[2016-11-14] MEDS: FOLIC ACID 1 MG TABLET PO SCH (10:03)
[2016-11-14] MEDS: NORMAL SALINE 1000 ML 1,000 ML IV PRN ×2 (10:04→20:48)
--- NOTE | 2016-11-14 12:40 | PDOC CONSULTATION ---
History of Present Illness Admission Date/PCP: 11/03/16 18:20 HOMA BARRAZA MD Patient complains of: Right Shoulder Pain History of Present Illness: WILLIE ALAN is a 46 year old female who presented to the emergency room for generalized body pain. She was found to have sickle cell crisis which she has fairly regularly. Her major complaint today is right shoulder pain which is worse than the other extremities. Patient has had right shoulder pain in the past back in April but she states it is worse currently because she is unable to fully move the arm without discomfort. Pain /10. Patient denies specific injury. Denies numbness or tingling. Previous HPI as per primary she has a history of sickle cell disease, she came to the emergency room because generalized body pain. She was seen in the emergency room and she was evaluated and she was advised to be admitted . The last admission for significant bone pain crisis was April 2016. 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 Past Surgical History Past Surgical History: Reports: Appendectomy, Section, Cholecystectomy , Orthopedic Surgery - R knee, Tonsillectomy Denies: Amputation, Coronary Artery Bypass Graft, Gastric Bypass Surgery, Herniorrhaphy, Mastectomy, Pacemaker, Tubal Ligation Social History Smoking Status: Never Smoker Frequency of Alcohol Use: None Hx Recreational Drug Use: No Drugs: None Hx Prescription Drug Abuse: No Family History Family History: Reviewed & Not Pertinent Parental Family History Reviewed: No Children Family History Reviewed: No Sibling(s) Family History Reviewed.: No Medication/Allergy Home Medications: Epoetin Federico [Procrit] 35,000 unit IJ FR 11/03/16 Folic Acid [Folvite 1 mg Tablet] 1 mg PO DAILY 11/03/16 Hydroxyurea [Hydrea 500 Mg Capsule] 500 mg PO Q12 11/03/16 Ibuprofen [Motrin 800 mg Tablet] 800 mg PO BID 11/03/16 Multivitamin [Daily Multiple Vitamin] 1 each PO DAILY 11/03/16 Oxycodone HCl [Oxycontin Sr 40 mg Tablet] 40 mg PO Q8 11/03/16 Oxycodone HCl [Roxicodone] 30 mg PO Q6HP PRN 11/03/16 Rivaroxaban [Xarelto] 20 mg PO DAILY 11/03/16 Allergies/Adverse Reactions: doxycycline [Doxycycline] Allergy (Severe, Verified 10/31/14 18:48) morphine [Morphine] Allergy (Severe, Verified 10/31/14 18:48) unknown antibiotic Allergy (Uncoded 02/27/16 09:34) Review of Systems Constitutional: PRESENT: fatigue, weakness. ABSENT: fever(s), headache(s), weight gain, weight loss Eyes: ABSENT: visual disturbances Ears: ABSENT: hearing changes Cardiovascular: ABSENT: chest pain, dyspnea on exertion, edema, orthropnea, palpitations Respiratory: ABSENT: cough, hemoptysis Gastrointestinal: ABSENT: abdominal pain, constipation, diarrhea, hematemesis, hematochezia, nausea, vomiting Genitourinary: ABSENT: dysuria, hematuria Musculoskeletal: PRESENT: as per HPI, joint swelling, muscle weakness Integumentary: ABSENT: rash, wounds Neurological: ABSENT: abnormal gait, abnormal speech, confusion, dizziness, focal weakness, syncope Psychiatric: ABSENT: anxiety, depression, homidical ideation, suicidal ideation Endocrine: ABSENT: cold intolerance, heat intolerance, menstrual abnormalities, polydipsia, polyuria Hematologic/Lymphatic: ABSENT: easy bleeding, easy bruising, lymphadenopathy Physical Exam Vital Signs: Temp Pulse Resp BP Pulse Ox 97.8 F 57 L 20 122/68 99 11/14/16 08:00 11/14/16 08:35 11/14/16 08:35 11/14/16 08:35 11/14/16 08:00 Intake & Output 11/13/16 11/14/16 11/15/16 06:59 06:59 06:59 Intake Total 1520 2470 Output Total 1950 3400 Balance -430 -930 General appearance: PRESENT: no acute distress, well-developed, well-nourished Head exam: PRESENT: atraumatic, normocephalic Eye exam: PRESENT: conjunctiva pink, EOMI, PERRLA. ABSENT: scleral icterus Ear exam: PRESENT: normal external ear exam Mouth exam: PRESENT: moist, tongue midline Neck exam: PRESENT: full ROM. ABSENT: carotid bruit, JVD, lymphadenopathy, thyromegaly Respiratory exam: PRESENT: unlabored Cardiovascular exam: PRESENT: RRR. ABSENT: diastolic murmur, rubs, systolic murmur Pulses: PRESENT: normal dorsalis pedis pul, +2 pedal pulses bilateral Vascular exam: PRESENT: normal capillary refill GI/Abdominal exam: PRESENT: normal bowel sounds, soft. ABSENT: distended, guarding, mass, organolmegaly, rebound, tenderness Rectal exam: PRESENT: deferred Musculoskeletal exam: PRESENT: other - Right shoulder: Diffuse tenderness to palpation anteriorly, posteriorly and along the acromioclavicular joint. No significant swelling. No erythema. Pain with passive abduction greater than 90 and forward flexion greater than 90. No pain with external rotation. Patient able to lean forward flexion abduction greater than 90 however positive drop arm test. Positive Neer's, [place] and [place] test but rotator cuff strength difficult to examine secondary to patient's discomfort. Neurological exam: PRESENT: alert, awake, oriented to person, oriented to place , oriented to time, oriented to situation, CN II-XII grossly intact. ABSENT: motor sensory deficit Psychiatric exam: PRESENT: appropriate affect, normal mood. ABSENT: homicidal ideation, suicidal ideation Skin exam: PRESENT: dry, intact, warm, other - Notable skin lesions throughout.. ABSENT: cyanosis Results Laboratory Results: 11/11/16 05:20 11/09/16 06:03 11/12/16 15:45 Urine Color YELLOW Urine Appearance CLEAR Urine pH 7.0 Ur Specific [place] 1.005 Urine Protein NEGATIVE Urine Glucose (UA) NEGATIVE Urine Ketones NEGATIVE Urine Blood SMALL H Urine Nitrite NEGATIVE Ur Leukocyte Esterase TRACE H Urine WBC (Auto) 2 Impressions: Chest X-Ray 11/03/16 12:52 IMPRESSION: STABLE APPEARANCE OF THE CHEST. SUPPORT DEVICES UNCHANGED. 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 High-grade partial thickness tear in the anterior half of the supraspinatus tendon Small superior labral tear without paralabral cyst Status: Image reviewed by me - I have reviewed patient's MRI which demonstrates no infarct throughout the right middle head which is consistent with previous MRI. She also has evidence of labral degenerative tears which is consistent with age and patient's pathologic process along with partial-thickness supraspinatus tear which was evident at her prior MRI. Assessment & Plan - Diagnosis (1) Right rotator cuff tear Qualifiers: Rotator cuff tear extent: incomplete Qualified Code(s): M75.111 - Incomplete rotator cuff tear or rupture of right shoulder, not specified as traumatic Is this a current diagnosis for this admission?: YesPlan: Patient is evidence of rotator cuff tear on MRI however this partial-thickness and compared to her previous MRI is unchanged. Concomitantly she has evidence of bone infarcts which may also be contributing to some of her symptoms once again a relatively stable and unchanged. 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 (2) Bone infarct Is this a current diagnosis for this admission?: Yes
--- NOTE | 2016-11-14 14:31 | PDOC PROGRESS REPORT ---
Subjective Progress Note for:: 11/14/16 Subjective:: She was seen by orthopedic the plan is to inject the shoulder with steroid Physical Exam Vital Signs: Temp Pulse Resp BP Pulse Ox 98.6 F 64 20 108/62 98 11/14/16 11:29 11/14/16 11:29 11/14/16 11:29 11/14/16 11:29 11/14/16 11:29 Intake & Output 11/13/16 11/14/16 11/15/16 06:59 06:59 06:59 Intake Total 1520 2470 Output Total 1950 3400 Balance -430 -930 General appearance: PRESENT: mild distress Eye exam: PRESENT: scleral icterus Ear exam: PRESENT: normal external ear exam Mouth exam: PRESENT: moist, tongue midline Neck exam: PRESENT: full ROM Respiratory exam: PRESENT: clear to auscultation carolyn Cardiovascular exam: PRESENT: +S1, +S2 Pulses: PRESENT: normal dorsalis pedis pul, +2 pedal pulses bilateral Vascular exam: PRESENT: normal capillary refill GI/Abdominal exam: PRESENT: normal bowel sounds, soft Rectal exam: PRESENT: deferred Neurological exam: PRESENT: alert, awake, oriented to person, oriented to place , oriented to time, oriented to situation, CN II-XII grossly intact Psychiatric exam: PRESENT: appropriate affect, normal mood Skin exam: PRESENT: dry, intact, warm Results Laboratory Results: 11/11/16 05:20 11/09/16 06:03 11/12/16 15:45 Urine Color YELLOW Urine Appearance CLEAR Urine pH 7.0 Ur Specific [place] 1.005 Urine Protein NEGATIVE Urine Glucose (UA) NEGATIVE Urine Ketones NEGATIVE Urine Blood SMALL H Urine Nitrite NEGATIVE Ur Leukocyte Esterase TRACE H Urine WBC (Auto) 2 Impressions: Chest X-Ray 11/03/16 12:52 IMPRESSION: STABLE APPEARANCE OF THE CHEST. SUPPORT DEVICES UNCHANGED. 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 High-grade partial thickness tear in the anterior half of the supraspinatus tendon Small superior labral tear without paralabral cyst Assessment & Plan - Diagnosis (1) Sickle cell anemia with crisis Is this a current diagnosis for this admission?: Yes (2) Left rotator cuff tear Qualifiers: Rotator cuff tear extent: incomplete Qualified Code(s): M75.112 - Incomplete rotator cuff tear or rupture of left shoulder, not specified as traumatic Is this a current diagnosis for this admission?: Yes
[2016-11-14 14:46] LABS: HEMATOCRIT 21.2 % (36.0-47.0); HGB HCT DIFFERENCE 0.7; MEAN CORPUSCULAR HEMOGLOBIN 45.7 pg (27.0-33.4); MEAN CORPUSCULAR HGB CONC 34.7 g/dL (32.0-36.0); MEAN CORPUSCULAR VOLUME 132 fl (80-97); RED BLOOD COUNT 1.61 10^6/uL (3.72-5.28); RED CELL DISTRIBUTION WIDTH 16.2 % (11.5-14.0); WHITE BLOOD COUNT 3.6 10^3/uL (4.0-10.5)
[2016-11-14 14:59] LABS: BASOPHILS % (MANUAL) 0 % (0-2); EOSINOPHILS % (MANUAL) 8 % (0-6); LYMPHOCYTES % (MANUAL) 54 % (13-45); NUCLEATED RED BLOOD CELLS 4 /100 WBC (0); TOTAL CELLS COUNTED 100
[2016-11-14 15:01] LABS: HELMET CELLS SLIGHT; OVALOCYTES SLIGHT; POIKILOCYTOSIS 2+; TARGET CELLS SLIGHT
[2016-11-14 15:02] LABS: ANION GAP 9 (5-19); ANISOCYTOSIS 1+; BLOOD UREA NITROGEN 7 mg/dL (7-20); CALCIUM 8.7 mg/dL (8.4-10.2); CARBON DIOXIDE 26 mmol/L (22-30); CHLORIDE 106 mmol/L (98-107); CREATININE RESULT 0.64 mg/dL (0.52-1.25); GLUCOSE 105 mg/dL (75-110); HOWELL-JOLLY BODIES PRESENT; POLYCHROMASIA SLIGHT; POTASSIUM 3.9 mmol/L (3.6-5.0); SODIUM 140.8 mmol/L (137-145)
[2016-11-14 15:04] LABS: HEMOGLOBIN 7.3 g/dL (12.0-15.5)
[2016-11-14] MEDS: HYDROXYUREA 500 MG CAPSULE PO SCH (22:58)
[2016-11-15] MEDS: HYDROMORPHONE HCL INJ/PF 2 MG/ML AMPULE IV PRN ×5 (03:54→20:28)
[2016-11-15] MEDS: OXYCODONE HCL SR 40 MG TABLET PO SCH ×3 (05:57→21:34)
[2016-11-15] MEDS: NORMAL SALINE 1000 ML 1,000 ML IV PRN ×2 (05:58→16:00)
[2016-11-15] MEDS: DIPHENHYDRAMINE HCL 50 MG/ML VIAL IV PRN ×2 (07:59→16:25)
[2016-11-15] MEDS: FOLIC ACID 1 MG TABLET PO SCH (12:06)
[2016-11-15] MEDS: RIVAROXABAN 10 MG TABLET PO SCH (12:06)
[2016-11-15] MEDS: ONDANSETRON HCL INJ/PF 4 MG/2 ML SDV IV PRN ×2 (12:07→20:29)
[2016-11-15] MEDS: HYDROXYUREA 500 MG CAPSULE PO SCH ×2 (12:07→21:34)
[2016-11-15] MEDS: MULTIVITAMIN TABLET PO SCH (12:07)
--- NOTE | 2016-11-15 13:20 | PDOC PROGRESS REPORT ---
Subjective Progress Note for:: 11/15/16 Subjective:: She said she does not feel well today Physical Exam Vital Signs: Temp Pulse Resp BP Pulse Ox 98.2 F 81 20 101/61 97 11/15/16 11:53 11/15/16 11:53 11/15/16 11:53 11/15/16 11:53 11/15/16 11:53 Intake & Output 11/14/16 11/15/16 11/16/16 06:59 06:59 06:59 Intake Total 2470 3984 Output Total 3400 4600 Balance -930 -616 General appearance: PRESENT: mild distress Eye exam: PRESENT: PERRLA Respiratory exam: PRESENT: clear to auscultation carolyn Cardiovascular exam: PRESENT: +S1, +S2 Results Laboratory Results: 11/14/16 14:00 11/14/16 14:00 11/14/16 11/14/16 14:00 14:00 WBC 3.6 L RBC 1.61 L Hgb 7.3 L Hct 21.2 L MCV 132 H MCH 45.7 H MCHC 34.7 RDW 16.2 H Plt Count 105 L Seg Neutrophils % Not Reportable Lymphocytes % Not Reportable Monocytes % Not Reportable Eosinophils % Not Reportable Basophils % Not Reportable Absolute Neutrophils Not Reportable Absolute Lymphocytes Not Reportable Absolute Monocytes Not Reportable Absolute Eosinophils Not Reportable Absolute Basophils Not Reportable Sodium 140.8 Potassium 3.9 Chloride 106 Carbon Dioxide 26 Anion Gap 9 BUN 7 Creatinine 0.64 Est GFR ( Amer) > 60 Est GFR (Non-Af Amer) > 60 Glucose 105 Calcium 8.7 Impressions: Chest X-Ray 11/03/16 12:52 IMPRESSION: STABLE APPEARANCE OF THE CHEST. SUPPORT DEVICES UNCHANGED. 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 High-grade partial thickness tear in the anterior half of the supraspinatus tendon Small superior labral tear without paralabral cyst Assessment & Plan - Diagnosis (1) Sickle cell anemia with crisis Is this a current diagnosis for this admission?: Yes (2) Left rotator cuff tear Qualifiers: Rotator cuff tear extent: incomplete Qualified Code(s): M75.112 - Incomplete rotator cuff tear or rupture of left shoulder, not specified as traumatic Is this a current diagnosis for this admission?: Yes (3) Anemia Qualifiers: Anemia type: unspecified type Qualified Code(s): D64.9 - Anemia, unspecified Is this a current diagnosis for this admission?: Yes
[2016-11-15 17:25] LABS: HEMATOCRIT 21.2 % (36.0-47.0); HGB HCT DIFFERENCE 0.4; MEAN CORPUSCULAR HGB CONC 34.1 g/dL (32.0-36.0); MEAN CORPUSCULAR VOLUME 132 fl (80-97); RED BLOOD COUNT 1.61 10^6/uL (3.72-5.28); RED CELL DISTRIBUTION WIDTH 15.9 % (11.5-14.0); WHITE BLOOD COUNT 4.1 10^3/uL (4.0-10.5)
[2016-11-15 17:30] LABS: ALANINE AMINOTRANSFERASE 58 U/L (9-52); ALBUMIN 3.8 g/dL (3.5-5.0); ALKALINE PHOSPHATASE 147 U/L (38-126); ANION GAP 7 (5-19); ASPARTATE AMINO TRANSFERASE 58 U/L (14-36); BILIRUBIN,DIRECT 0.4 mg/dL (0.0-0.4); BILIRUBIN,TOTAL 3.8 mg/dL (0.2-1.3); BLOOD UREA NITROGEN 10 mg/dL (7-20); CALCIUM 8.9 mg/dL (8.4-10.2); CARBON DIOXIDE 27 mmol/L (22-30); CHLORIDE 105 mmol/L (98-107); CREATININE RESULT 0.67 mg/dL (0.52-1.25); GLUCOSE 82 mg/dL (75-110); POTASSIUM 4.1 mmol/L (3.6-5.0); SODIUM 139.1 mmol/L (137-145); TOTAL PROTEIN 6.6 g/dL (6.3-8.2)
[2016-11-15 17:44] LABS: BAND NEUTROPHILS % (MANUAL) 1 % (3-5); BASOPHILS % (MANUAL) 0 % (0-2); EOSINOPHILS % (MANUAL) 17 % (0-6); LYMPHOCYTES % (MANUAL) 46 % (13-45); NUCLEATED RED BLOOD CELLS 5 /100 WBC (0); TOTAL CELLS COUNTED 100
[2016-11-15 17:47] LABS: OVALOCYTES SLIGHT; POIKILOCYTOSIS 2+; POLYCHROMASIA SLIGHT; ROULEAUX SLIGHT; TARGET CELLS 1+; TEAR DROP CELLS SLIGHT
[2016-11-15 17:49] LABS: HEMOGLOBIN 7.2 g/dL (12.0-15.5)
[2016-11-15 18:14] LABS: APPEARANCE,URINE CLEAR; BILIRUBIN,URINE NEGATIVE (NEGATIVE); GLUCOSE, URINE NEGATIVE (NEGATIVE); KETONES,URINE NEGATIVE (NEGATIVE); LEUKOCYTE ESTERASE,URINE SMALL (NEGATIVE); NITRITE,URINE NEGATIVE (NEGATIVE); PROTEIN,URINE NEGATIVE (NEGATIVE); URINE SPECIFIC GRAVITY 1.005
[2016-11-16] MEDS: HYDROMORPHONE HCL INJ/PF 2 MG/ML AMPULE IV PRN ×6 (00:29→20:44)
[2016-11-16] MEDS: DIPHENHYDRAMINE HCL 50 MG/ML VIAL IV PRN ×4 (00:29→22:50)
[2016-11-16] MEDS: ONDANSETRON HCL INJ/PF 4 MG/2 ML SDV IV PRN ×3 (04:40→20:44)
[2016-11-16] MEDS: OXYCODONE HCL SR 40 MG TABLET PO SCH ×3 (05:05→22:50)
[2016-11-16] MEDS: MULTIVITAMIN TABLET PO SCH (11:12)
[2016-11-16] MEDS: FOLIC ACID 1 MG TABLET PO SCH (11:13)
[2016-11-16] MEDS: RIVAROXABAN 10 MG TABLET PO SCH (11:13)
[2016-11-16] MEDS: HYDROXYUREA 500 MG CAPSULE PO SCH ×2 (11:13→22:49)
[2016-11-16] MEDS: NORMAL SALINE 1000 ML 1,000 ML IV PRN (11:14)
--- NOTE | 2016-11-16 23:06 | PDOC PROGRESS REPORT ---
Subjective Progress Note for:: 11/16/16 Subjective:: Patient reported Flu like feeling with generalized body aches, low grade fever, congestion and stuffiness with sore throat. She claimed similar symptoms with diagnosis of flu infection in the past. No chest pain or difficulty with breathing. No nausea, vomiting or abdominal pain. Physical Exam Vital Signs: Temp Pulse Resp BP Pulse Ox 99.0 F 73 15 105/59 L 99 11/16/16 00:07 11/16/16 00:07 11/16/16 00:07 11/16/16 00:07 11/16/16 00:07 Intake & Output 11/15/16 11/16/16 11/17/16 06:59 06:59 06:59 Intake Total 3984 3030 Output Total 4600 5100 Balance -616 -7520 General appearance: PRESENT: no acute distress, well-developed, well-nourished Head exam: PRESENT: atraumatic, normocephalic Eye exam: PRESENT: conjunctiva pink, EOMI, PERRLA. ABSENT: scleral icterus Mouth exam: PRESENT: moist, neck supple, tongue midline Throat exam: PRESENT: post pharyngeal erythema - minimal. ABSENT: tonsillar erythema, tonsillar exudate, tonsillogmegaly, other Neck exam: ABSENT: lymphadenopathy, tenderness Respiratory exam: PRESENT: clear to auscultation carolyn Cardiovascular exam: PRESENT: RRR. ABSENT: diastolic murmur, rubs, systolic murmur GI/Abdominal exam: PRESENT: normal bowel sounds, soft. ABSENT: distended, guarding, mass, organolmegaly, rebound, tenderness Extremities exam: ABSENT: pedal edema Musculoskeletal exam: PRESENT: deformity - related to joint deformity from her SCD Neurological exam: PRESENT: alert, awake, oriented to person, oriented to place , oriented to time, oriented to situation, CN II-XII grossly intact. ABSENT: motor sensory deficit Psychiatric exam: PRESENT: appropriate affect, normal mood. ABSENT: homicidal ideation, suicidal ideation Skin exam: PRESENT: dry, intact, warm. ABSENT: cyanosis, rash Results Laboratory Results: 11/15/16 16:30 11/15/16 16:30 11/15/16 11/15/16 11/15/16 16:30 16:30 17:50 WBC 4.1 RBC 1.61 L Hgb 7.2 L Hct 21.2 L MCV 132 H MCH 45.0 H MCHC 34.1 RDW 15.9 H Plt Count 135 L Seg Neutrophils % Not Reportable Lymphocytes % Not Reportable Monocytes % Not Reportable Eosinophils % Not Reportable Basophils % Not Reportable Absolute Neutrophils Not Reportable Absolute Lymphocytes Not Reportable Absolute Monocytes Not Reportable Absolute Eosinophils Not Reportable Absolute Basophils Not Reportable Sodium 139.1 Potassium 4.1 Chloride 105 Carbon Dioxide 27 Anion Gap 7 BUN 10 Creatinine 0.67 Est GFR ( Amer) > 60 Est GFR (Non-Af Amer) > 60 Glucose 82 Calcium 8.9 Total Bilirubin 3.8 H AST 58 H ALT 58 H Alkaline Phosphatase 147 H Total Protein 6.6 Albumin 3.8 Urine Color YELLOW Urine Appearance CLEAR Urine pH 7.0 Ur Specific [place] 1.005 Urine Protein NEGATIVE Urine Glucose (UA) NEGATIVE Urine Ketones NEGATIVE Urine Blood SMALL H Urine Nitrite NEGATIVE Ur Leukocyte Esterase SMALL H Urine WBC (Auto) 1 Urine RBC (Auto) 1 Impressions: Chest X-Ray 11/03/16 12:52 IMPRESSION: STABLE APPEARANCE OF THE CHEST. SUPPORT DEVICES UNCHANGED. 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 High-grade partial thickness tear in the anterior half of the supraspinatus tendon Small superior labral tear without paralabral cyst Assessment & Plan - Diagnosis (1) Left rotator cuff tear Qualifiers: Rotator cuff tear extent: incomplete Qualified Code(s): M75.112 - Incomplete rotator cuff tear or rupture of left shoulder, not specified as traumatic Is this a current diagnosis for this admission?: YesPlan: See covering attending physician orders. (2) Sickle cell anemia with crisis Is this a current diagnosis for this admission?: YesPlan: Continue current supportive management. Monitor Hemoglobin level and transfuse if indicated. (3) Flu-like symptoms Is this a current diagnosis for this admission?: NoPlan: Obtain Rapid influenza A and B antigen test and Rapid Strept. throat evaluation.Maintain on current medication management pending evaluation of requested test results. - Time Time Spent with patient: 25-34 minutes Medications reviewed and adjusted accordingly: Yes Anticipated discharge: Home Within: Other - Inpatient Certification Medical Necessity: Need Close Monitoring Due to Risk of Patient Decompensation, Need For IV Fluids, Need for Pain Control, Risk of Complication if Not Cared For in Hospital Post Hospital Care: D/C Training Assistant Documentation - Plan Summary Plan Summary: See covering attending physician order.
[2016-11-17] MEDS: HYDROMORPHONE HCL INJ/PF 2 MG/ML AMPULE IV PRN ×5 (00:47→21:40)
[2016-11-17] MEDS: ONDANSETRON HCL INJ/PF 4 MG/2 ML SDV IV PRN ×2 (04:49→17:27)
[2016-11-17] MEDS: DIPHENHYDRAMINE HCL 50 MG/ML VIAL IV PRN ×3 (04:49→21:40)
[2016-11-17] MEDS: OXYCODONE HCL SR 40 MG TABLET PO SCH ×3 (05:47→22:48)
[2016-11-17] MEDS: NORMAL SALINE 1000 ML 1,000 ML IV PRN (09:37)
[2016-11-17] MEDS: MULTIVITAMIN TABLET PO SCH (09:39)
[2016-11-17] MEDS: FOLIC ACID 1 MG TABLET PO SCH (09:39)
[2016-11-17] MEDS: HYDROXYUREA 500 MG CAPSULE PO SCH ×2 (09:39→22:48)
[2016-11-17] MEDS: RIVAROXABAN 10 MG TABLET PO SCH (09:40)
--- NOTE | 2016-11-17 13:12 | PDOC PROGRESS REPORT ---
Subjective Progress Note for:: 11/17/16 Subjective:: Patient denied chest pain or difficulty with breathing. No fever or chills. No significant sore throat. No nausea, vomiting or abdominal pain. Physical Exam Vital Signs: Temp Pulse Resp BP Pulse Ox 99.3 F 72 20 96/51 L 97 11/16/16 23:07 11/16/16 23:07 11/16/16 23:07 11/16/16 23:07 11/16/16 23:07 Intake & Output 11/16/16 11/17/16 11/18/16 06:59 06:59 06:59 Intake Total 3030 4052 Output Total 5100 3850 Balance -2070 202 General appearance: PRESENT: no acute distress, well-developed, well-nourished Head exam: PRESENT: atraumatic, normocephalic Eye exam: PRESENT: conjunctiva pink, EOMI, PERRLA. ABSENT: scleral icterus Mouth exam: PRESENT: moist, neck supple, tongue midline Respiratory exam: PRESENT: clear to auscultation carolyn Cardiovascular exam: PRESENT: RRR. ABSENT: diastolic murmur, rubs, systolic murmur GI/Abdominal exam: PRESENT: normal bowel sounds, soft. ABSENT: distended, guarding, mass, organomegaly, rebound, tenderness Extremities exam: ABSENT: pedal edema Musculoskeletal exam: PRESENT: deformity - related to joint deformity from her SCD Neurological exam: PRESENT: alert, awake, oriented to person, oriented to place , oriented to time, oriented to situation, CN II-XII grossly intact. ABSENT: motor sensory deficit Psychiatric exam: PRESENT: appropriate affect, normal mood. ABSENT: homicidal ideation, suicidal ideation Skin exam: PRESENT: dry, intact, warm. ABSENT: cyanosis, rash Results Laboratory Results: 11/15/16 16:30 11/15/16 16:30 Impressions: Chest X-Ray 11/03/16 12:52 IMPRESSION: STABLE APPEARANCE OF THE CHEST. SUPPORT DEVICES UNCHANGED. 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 High-grade partial thickness tear in the anterior half of the supraspinatus tendon Small superior labral tear without paralabral cyst Assessment & Plan - Diagnosis (1) Left rotator cuff tear Qualifiers: Rotator cuff tear extent: incomplete Qualified Code(s): M75.112 - Incomplete rotator cuff tear or rupture of left shoulder, not specified as traumatic Is this a current diagnosis for this admission?: Yes (2) Sickle cell anemia with crisis Is this a current diagnosis for this admission?: Yes (3) Flu-like symptoms Is this a current diagnosis for this admission?: No - Time Time Spent with patient: 25-34 minutes Medications reviewed and adjusted accordingly: Yes Anticipated discharge: Home with Homehealth Within: Other - Inpatient Certification Medical Necessity: Need Close Monitoring Due to Risk of Patient Decompensation, Need For IV Fluids, Need For Continuous Telemetry Monitoring, Need for Pain Control, Risk of Complication if Not Cared For in Hospital Post Hospital Care: D/C Treasury Manager Documentation - Plan Summary Plan Summary: Continue current medication management. Obtain CBC with differential, CMP. If Hgb is < 7.0 consider PRBC transfusion.
[2016-11-17 16:51] LABS: HEMATOCRIT 19.6 % (36.0-47.0); HGB HCT DIFFERENCE 0.5; MEAN CORPUSCULAR HEMOGLOBIN 44.8 pg (27.0-33.4); MEAN CORPUSCULAR HGB CONC 34.4 g/dL (32.0-36.0); MEAN CORPUSCULAR VOLUME 130 fl (80-97); RED CELL DISTRIBUTION WIDTH 15.6 % (11.5-14.0); WHITE BLOOD COUNT 3.6 10^3/uL (4.0-10.5)
[2016-11-17 16:56] LABS: ALANINE AMINOTRANSFERASE 54 U/L (9-52); ALBUMIN 3.7 g/dL (3.5-5.0); ALKALINE PHOSPHATASE 156 U/L (38-126); ANION GAP 7 (5-19); ASPARTATE AMINO TRANSFERASE 60 U/L (14-36); BILIRUBIN,DIRECT 0.7 mg/dL (0.0-0.4); BILIRUBIN,TOTAL 3.4 mg/dL (0.2-1.3); BLOOD UREA NITROGEN 11 mg/dL (7-20); CALCIUM 8.6 mg/dL (8.4-10.2); CARBON DIOXIDE 26 mmol/L (22-30); CHLORIDE 106 mmol/L (98-107); CREATININE RESULT 0.71 mg/dL (0.52-1.25); GLUCOSE 108 mg/dL (75-110); POTASSIUM 4.1 mmol/L (3.6-5.0); TOTAL PROTEIN 6.4 g/dL (6.3-8.2)
[2016-11-17 17:04] LABS: HEMOGLOBIN 6.7 g/dL (12.0-15.5)
[2016-11-17 17:10] LABS: ANISOCYTOSIS 1+; BASOPHILS % (MANUAL) 2 % (0-2); EOSINOPHILS % (MANUAL) 17 % (0-6); LYMPHOCYTES % (MANUAL) 49 % (13-45); NUCLEATED RED BLOOD CELLS 1 /100 WBC (0); OVALOCYTES 2+; POIKILOCYTOSIS 2+; TOTAL CELLS COUNTED 100
[2016-11-17 17:11] LABS: HOWELL-JOLLY BODIES PRESENT; HYPOCHROMASIA 2+; POLYCHROMASIA 2+; ROULEAUX SLIGHT; SCHISTOCYTES SLIGHT
[2016-11-18] MEDS: ONDANSETRON HCL INJ/PF 4 MG/2 ML SDV IV PRN ×2 (01:37→09:47)
[2016-11-18] MEDS: HYDROMORPHONE HCL INJ/PF 2 MG/ML AMPULE IV PRN ×5 (02:24→21:37)
[2016-11-18] MEDS: DIPHENHYDRAMINE HCL 50 MG/ML VIAL IV PRN ×3 (04:54→21:37)
[2016-11-18] MEDS: OXYCODONE HCL SR 40 MG TABLET PO SCH ×3 (05:59→21:37)
[2016-11-18] MEDS: HYDROXYUREA 500 MG CAPSULE PO SCH ×2 (09:47→21:37)
[2016-11-18] MEDS: RIVAROXABAN 10 MG TABLET PO SCH (09:47)
[2016-11-18] MEDS: MULTIVITAMIN TABLET PO SCH (09:47)
[2016-11-18] MEDS: FOLIC ACID 1 MG TABLET PO SCH (09:47)
[2016-11-18 12:23] LABS: HEMATOCRIT 25.2 % (36.0-47.0); HGB HCT DIFFERENCE 1.2; MEAN CORPUSCULAR HEMOGLOBIN 39.5 pg (27.0-33.4); MEAN CORPUSCULAR HGB CONC 34.8 g/dL (32.0-36.0); RED BLOOD COUNT 2.22 10^6/uL (3.72-5.28); RED CELL DISTRIBUTION WIDTH 28.9 % (11.5-14.0); WHITE BLOOD COUNT 4.3 10^3/uL (4.0-10.5)
[2016-11-18 13:31] LABS: HEMOGLOBIN 8.8 g/dL (12.0-15.5); MEAN CORPUSCULAR VOLUME 114 fl (80-97)
[2016-11-18] MEDS: OXYCODONE HCL IR 5 MG TABLET PO PRN (16:05)
--- NOTE | 2016-11-18 21:08 | PDOC PROGRESS REPORT ---
Subjective Progress Note for:: 11/18/16 Subjective:: Patient was seen by the bedside, she says she feels bad, she is requesting IV banana infusion Physical Exam Vital Signs: Temp Pulse Resp BP Pulse Ox 99.0 F 68 18 99/50 L 98 11/18/16 11:30 11/18/16 15:23 11/18/16 15:23 11/18/16 15:23 11/18/16 15:23 Intake & Output 11/17/16 11/18/16 11/19/16 06:59 06:59 06:59 Intake Total 4052 4810 1170 Output Total 3850 4300 1300 Balance 202 510 -130 General appearance: PRESENT: no acute distress Eye exam: PRESENT: PERRLA Respiratory exam: PRESENT: clear to auscultation carolyn Cardiovascular exam: PRESENT: +S1, +S2 Results Laboratory Results: 11/18/16 11:45 11/17/16 15:30 11/17/16 11/18/16 18:58 11:45 WBC 4.3 RBC 2.22 L Hgb 8.8 L D Hct 25.2 L MCV 114 H D MCH 39.5 H MCHC 34.8 RDW 28.9 H Plt Count 217 Blood Type O POSITIVE Antibody Screen NEGATIVE 11/16/16 16:25 Throat Throat Culture - Final GREATLY REDUCED NORMAL JIM Impressions: Chest X-Ray 11/03/16 12:52 IMPRESSION: STABLE APPEARANCE OF THE CHEST. SUPPORT DEVICES UNCHANGED. 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 High-grade partial thickness tear in the anterior half of the supraspinatus tendon Small superior labral tear without paralabral cyst Assessment & Plan - Diagnosis (1) Sickle cell anemia with crisis Is this a current diagnosis for this admission?: Yes (2) Left rotator cuff tear Qualifiers: Rotator cuff tear extent: incomplete Qualified Code(s): M75.112 - Incomplete rotator cuff tear or rupture of left shoulder, not specified as traumatic Is this a current diagnosis for this admission?: Yes (3) Anemia Qualifiers: Anemia type: unspecified type Qualified Code(s): D64.9 - Anemia, unspecified Is this a current diagnosis for this admission?: Yes - Plan Summary Plan Summary: To be transfused with IV banana infusion and hopefully discharge home tomorrow
[2016-11-18] MEDS: NORMAL SALINE 1000 ML 1,000 ML with POTASSIUM CHLORIDE 20 MEQ, MAGNESIUM SULFATE 8 MEQ,... IV SCH ×5 (22:20)
[2016-11-19] MEDS: ONDANSETRON HCL INJ/PF 4 MG/2 ML SDV IV PRN ×3 (01:44→18:16)
[2016-11-19] MEDS: HYDROMORPHONE HCL INJ/PF 2 MG/ML AMPULE IV PRN ×6 (01:44→22:16)
[2016-11-19] MEDS: OXYCODONE HCL SR 40 MG TABLET PO SCH ×3 (05:41→22:16)
[2016-11-19] MEDS: DIPHENHYDRAMINE HCL 50 MG/ML VIAL IV PRN ×3 (05:41→22:16)
[2016-11-19] MEDS: FOLIC ACID 1 MG TABLET PO SCH (09:42)
[2016-11-19] MEDS: MULTIVITAMIN TABLET PO SCH (09:42)
[2016-11-19] MEDS: RIVAROXABAN 10 MG TABLET PO SCH (09:43)
[2016-11-19] MEDS: HYDROXYUREA 500 MG CAPSULE PO SCH ×2 (09:45→22:16)
[2016-11-19] MEDS: NORMAL SALINE 1000 ML 1,000 ML IV PRN ×2 (09:46→19:58)
[2016-11-19 15:44] LABS: APPEARANCE,URINE CLEAR; BILIRUBIN,URINE NEGATIVE (NEGATIVE); GLUCOSE, URINE NEGATIVE (NEGATIVE); KETONES,URINE NEGATIVE (NEGATIVE); LEUKOCYTE ESTERASE,URINE SMALL (NEGATIVE); NITRITE,URINE NEGATIVE (NEGATIVE); PROTEIN,URINE NEGATIVE (NEGATIVE); URINE SPECIFIC GRAVITY 1.008; UROBILINOGEN,URINE NEGATIVE mg/dL (<2.0)
[2016-11-19] MEDS: OXYCODONE HCL IR 5 MG TABLET PO PRN (17:03)
[2016-11-19] MEDS ORDERED: DISPOSABLE SUBCUT ONE (18:00)
[2016-11-19] MEDS ORDERED: EPOETIN ALFA SUBCUT ONE (18:00)
--- NOTE | 2016-11-19 19:53 | PDOC PROGRESS REPORT ---
Subjective Progress Note for:: 11/19/16 Subjective:: Patient was seen by the bedside she has less pain today Physical Exam Vital Signs: Temp Pulse Resp BP Pulse Ox 98.9 F 72 14 105/67 99 11/19/16 16:00 11/19/16 16:00 11/19/16 16:00 11/19/16 16:00 11/19/16 16:00 Intake & Output 11/18/16 11/19/16 11/20/16 06:59 06:59 06:59 Intake Total 4810 1770 500 Output Total 4300 3300 600 Balance 510 -1530 -100 Weight 67.5 kg General appearance: PRESENT: no acute distress Eye exam: PRESENT: PERRLA Respiratory exam: PRESENT: clear to auscultation carolyn Cardiovascular exam: PRESENT: +S1, +S2 GI/Abdominal exam: PRESENT: soft Neurological exam: PRESENT: alert Results Laboratory Results: 11/18/16 11:45 11/17/16 15:30 11/19/16 11/19/16 14:20 14:25 Urine Color YELLOW Urine Appearance CLEAR Urine pH 7.0 Ur Specific [place] 1.008 Urine Protein NEGATIVE Urine Glucose (UA) NEGATIVE Urine Ketones NEGATIVE Urine Blood SMALL H Urine Nitrite NEGATIVE Ur Leukocyte Esterase SMALL H Urine WBC (Auto) 2 Urine RBC (Auto) 0 Stool Occult Blood NEGATIVE Impressions: Chest X-Ray 11/03/16 12:52 IMPRESSION: STABLE APPEARANCE OF THE CHEST. SUPPORT DEVICES UNCHANGED. 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 High-grade partial thickness tear in the anterior half of the supraspinatus tendon Small superior labral tear without paralabral cyst Assessment & Plan - Diagnosis (1) Sickle cell anemia with crisis Is this a current diagnosis for this admission?: Yes (2) Left rotator cuff tear Qualifiers: Rotator cuff tear extent: incomplete Qualified Code(s): M75.112 - Incomplete rotator cuff tear or rupture of left shoulder, not specified as traumatic Is this a current diagnosis for this admission?: Yes (3) Anemia Qualifiers: Anemia type: unspecified type Qualified Code(s): D64.9 - Anemia, unspecified Is this a current diagnosis for this admission?: Yes
[2016-11-19] MEDS: NORMAL SALINE 1000 ML 1,000 ML with POTASSIUM CHLORIDE 20 MEQ, MAGNESIUM SULFATE 8 MEQ,... IV SCH ×5 (22:16)
[2016-11-20] MEDS: ONDANSETRON HCL INJ/PF 4 MG/2 ML SDV IV PRN ×3 (02:14→22:35)
[2016-11-20] MEDS: HYDROMORPHONE HCL INJ/PF 2 MG/ML AMPULE IV PRN ×6 (02:14→22:35)
[2016-11-20] MEDS: DIPHENHYDRAMINE HCL 50 MG/ML VIAL IV PRN ×3 (05:59→22:35)
[2016-11-20] MEDS: OXYCODONE HCL SR 40 MG TABLET PO SCH ×3 (05:59→22:35)
[2016-11-20] MEDS: RIVAROXABAN 10 MG TABLET PO SCH (10:15)
[2016-11-20] MEDS: MULTIVITAMIN TABLET PO SCH (10:15)
[2016-11-20] MEDS: FOLIC ACID 1 MG TABLET PO SCH (10:15)
[2016-11-20] MEDS: HYDROXYUREA 500 MG CAPSULE PO SCH ×2 (10:16→22:35)
--- NOTE | 2016-11-20 10:16 | PDOC PROGRESS REPORT ---
Subjective Progress Note for:: 11/20/16 Subjective:: Right shoulder joint pain persist. Awaiting orthopod intervention with intrathecal injection for pain management. Patient denied chest pain or difficulty with breathing. No fever or chills. No nausea, vomiting or abdominal pain. Physical Exam Vital Signs: Temp Pulse Resp BP Pulse Ox 98.4 F 71 20 101/57 L 99 11/20/16 07:46 11/20/16 07:46 11/20/16 07:46 11/20/16 07:46 11/20/16 07:46 Intake & Output 11/19/16 11/20/16 11/21/16 06:59 06:59 06:59 Intake Total 1770 3050 Output Total 3300 600 Balance -1530 2450 Weight 67.5 kg 67.5 kg Physical Exam: General appearance: PRESENT: no acute distress, well-developed, well-nourished Head exam: PRESENT: atraumatic, normocephalic Eye exam: PRESENT: conjunctiva pink, EOMI, PERRLA. ABSENT: scleral icterus Mouth exam: PRESENT: moist, neck supple, tongue midline Respiratory exam: PRESENT: clear to auscultation carolyn Cardiovascular exam: PRESENT: RRR. ABSENT: diastolic murmur, rubs, systolic murmur GI/Abdominal exam: PRESENT: normal bowel sounds, soft. ABSENT: distended, guarding, mass, organomegaly, rebound, tenderness Extremities exam: ABSENT: pedal edema Musculoskeletal exam: PRESENT: deformity - related to joint deformity from her SCD; Right shoulder joint limited mobility due to elicited tenderness. Neurological exam: PRESENT: alert, awake, oriented to person, oriented to place , oriented to time, oriented to situation, CN II-XII grossly intact. ABSENT: motor sensory deficit Psychiatric exam: PRESENT: appropriate affect, normal mood. ABSENT: homicidal ideation, suicidal ideation Skin exam: PRESENT: dry, intact, warm. ABSENT: cyanosis, rash Results Laboratory Results: 11/18/16 11:45 11/17/16 15:30 11/19/16 11/19/16 14:20 14:25 Urine Color YELLOW Urine Appearance CLEAR Urine pH 7.0 Ur Specific [place] 1.008 Urine Protein NEGATIVE Urine Glucose (UA) NEGATIVE Urine Ketones NEGATIVE Urine Blood SMALL H Urine Nitrite NEGATIVE Ur Leukocyte Esterase SMALL H Urine WBC (Auto) 2 Urine RBC (Auto) 0 Stool Occult Blood NEGATIVE Impressions: Chest X-Ray 11/03/16 12:52 IMPRESSION: STABLE APPEARANCE OF THE CHEST. SUPPORT DEVICES UNCHANGED. 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 High-grade partial thickness tear in the anterior half of the supraspinatus tendon Small superior labral tear without paralabral cyst Assessment & Plan - Diagnosis (1) Left rotator cuff tear Qualifiers: Rotator cuff tear extent: incomplete Qualified Code(s): M75.112 - Incomplete rotator cuff tear or rupture of left shoulder, not specified as traumatic Is this a current diagnosis for this admission?: YesPlan: See covering attending physician orders. Follow up on intrathecal injection by Dr. Stern. (2) Sickle cell anemia with crisis Is this a current diagnosis for this admission?: YesPlan: Continue current supportive management. Monitor Hemoglobin level and transfuse if indicated. - Time Time Spent with patient: 25-34 minutes Medications reviewed and adjusted accordingly: Yes Anticipated discharge: Home Within: Other - Inpatient Certification Medical Necessity: Need Close Monitoring Due to Risk of Patient Decompensation, Need For IV Fluids, Need for Pain Control, Risk of Complication if Not Cared For in Hospital Post Hospital Care: D/C Application Administrator Documentation - Plan Summary Plan Summary: See covering attending physician orders.
[2016-11-20] MEDS: NORMAL SALINE 1000 ML 1,000 ML with POTASSIUM CHLORIDE 20 MEQ, MAGNESIUM SULFATE 8 MEQ,... IV SCH ×5 (22:35)
[2016-11-21] MEDS: OXYCODONE HCL IR 5 MG TABLET PO PRN (01:07)
[2016-11-21] MEDS: HYDROMORPHONE HCL INJ/PF 2 MG/ML AMPULE IV PRN ×6 (02:34→23:02)
[2016-11-21] MEDS: OXYCODONE HCL SR 40 MG TABLET PO SCH ×3 (06:28→23:06)
[2016-11-21] MEDS: ONDANSETRON HCL INJ/PF 4 MG/2 ML SDV IV PRN (06:28)
[2016-11-21] MEDS: DIPHENHYDRAMINE HCL 50 MG/ML VIAL IV PRN ×3 (06:28→23:03)
--- NOTE | 2016-11-21 09:32 | PDOC PROGRESS REPORT ---
Subjective Progress Note for:: 11/21/16 Subjective:: Right shoulder joint pain persist. Still awaiting orthopedic intervention with intrathecal injection for pain management. Patient denied chest pain or difficulty with breathing. No fever or chills. No nausea, vomiting or abdominal pain. Physical Exam Vital Signs: Temp Pulse Resp BP Pulse Ox 98.7 F 77 20 100/59 L 98 11/21/16 07:55 11/21/16 07:55 11/21/16 07:55 11/21/16 07:55 11/21/16 07:55 Intake & Output 11/20/16 11/21/16 11/22/16 06:59 06:59 06:59 Intake Total 3050 5004 Output Total 600 3600 Balance 2450 1404 Weight 67.5 kg 67.5 kg Physical Exam: General appearance: PRESENT: no acute distress, well-developed, well-nourished Head exam: PRESENT: atraumatic, normocephalic Eye exam: PRESENT: conjunctiva pink, EOMI, PERRLA. ABSENT: scleral icterus Mouth exam: PRESENT: moist, neck supple, tongue midline Respiratory exam: PRESENT: clear to auscultation carolyn Cardiovascular exam: PRESENT: RRR. ABSENT: diastolic murmur, rubs, systolic murmur GI/Abdominal exam: PRESENT: normal bowel sounds, soft. ABSENT: distended, guarding, mass, organomegaly, rebound, tenderness Extremities exam: ABSENT: pedal edema Musculoskeletal exam: PRESENT: deformity - related to joint deformity from her SCD; Right shoulder joint limited mobility due to elicited tenderness. Neurological exam: PRESENT: alert, awake, oriented to person, oriented to place , oriented to time, oriented to situation, CN II-XII grossly intact. ABSENT: motor sensory deficit Psychiatric exam: PRESENT: appropriate affect, normal mood. ABSENT: homicidal ideation, suicidal ideation Skin exam: PRESENT: dry, intact, warm. ABSENT: cyanosis, rash Results Laboratory Results: 11/18/16 11:45 11/17/16 15:30 Impressions: Chest X-Ray 11/03/16 12:52 IMPRESSION: STABLE APPEARANCE OF THE CHEST. SUPPORT DEVICES UNCHANGED. 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 High-grade partial thickness tear in the anterior half of the supraspinatus tendon Small superior labral tear without paralabral cyst Assessment & Plan - Diagnosis (1) Left rotator cuff tear Qualifiers: Rotator cuff tear extent: incomplete Qualified Code(s): M75.112 - Incomplete rotator cuff tear or rupture of left shoulder, not specified as traumatic Is this a current diagnosis for this admission?: Yes (2) Sickle cell anemia with crisis Is this a current diagnosis for this admission?: Yes - Time Time Spent with patient: 25-34 minutes Medications reviewed and adjusted accordingly: Yes Anticipated discharge: Home Within: Other - Inpatient Certification Medical Necessity: Need Close Monitoring Due to Risk of Patient Decompensation, Need for Pain Control, Risk of Complication if Not Cared For in Hospital Post Hospital Care: D/C Courtroom Deputy Or Calendar Clerk Documentation - Plan Summary Plan Summary: See covering attending physician orders.
[2016-11-21] MEDS: RIVAROXABAN 10 MG TABLET PO SCH (10:20)
[2016-11-21] MEDS: HYDROXYUREA 500 MG CAPSULE PO SCH ×2 (10:22→23:06)
[2016-11-21] MEDS: MULTIVITAMIN TABLET PO SCH (10:22)
[2016-11-21] MEDS: FOLIC ACID 1 MG TABLET PO SCH (10:22)
[2016-11-21] MEDS: NORMAL SALINE 1000 ML 1,000 ML with POTASSIUM CHLORIDE 20 MEQ, MAGNESIUM SULFATE 8 MEQ,... IV SCH ×5 (23:41)
[2016-11-21] MEDS: NORMAL SALINE 1000 ML 1,000 ML IV PRN (23:49)
[2016-11-22] MEDS: HYDROMORPHONE HCL INJ/PF 2 MG/ML AMPULE IV PRN ×5 (03:05→20:53)
[2016-11-22] MEDS: ONDANSETRON HCL INJ/PF 4 MG/2 ML SDV IV PRN (03:08)
[2016-11-22] MEDS: OXYCODONE HCL SR 40 MG TABLET PO SCH ×3 (05:36→23:45)
[2016-11-22] MEDS: DIPHENHYDRAMINE HCL 50 MG/ML VIAL IV PRN ×3 (07:34→20:52)
[2016-11-22] MEDS: HYDROXYUREA 500 MG CAPSULE PO SCH ×2 (10:55→23:46)
[2016-11-22] MEDS: FOLIC ACID 1 MG TABLET PO SCH (10:55)
[2016-11-22] MEDS: RIVAROXABAN 10 MG TABLET PO SCH (10:55)
[2016-11-22] MEDS: MULTIVITAMIN TABLET PO SCH (10:55)
[2016-11-22 19:15] LABS: APPEARANCE,URINE SLIGHTLY-CLOUDY; BILIRUBIN,URINE NEGATIVE (NEGATIVE); GLUCOSE, URINE NEGATIVE (NEGATIVE); KETONES,URINE NEGATIVE (NEGATIVE); LEUKOCYTE ESTERASE,URINE SMALL (NEGATIVE); NITRITE,URINE NEGATIVE (NEGATIVE); PROTEIN,URINE NEGATIVE (NEGATIVE); URINE SPECIFIC GRAVITY 1.008; UROBILINOGEN,URINE NEGATIVE mg/dL (<2.0)
--- NOTE | 2016-11-22 19:51 | PDOC DISCHARGE SUMMARY ---
General - Admit/Disc Date/PCP Admission Date/Primary Care Provider: 11/03/16 18:20 HOMA BARRAZA MD Discharge Date: 11/22/16 - Discharge Diagnosis (1) Sickle cell anemia with crisis Is this a current diagnosis for this admission?: Yes (2) Left rotator cuff tear Is this a current diagnosis for this admission?: Yes (3) Anemia Is this a current diagnosis for this admission?: Yes - Additional Information Home Medications: Epoetin Federico [Procrit] 35,000 unit IJ FR 11/03/16 Folic Acid [Folvite 1 mg Tablet] 1 mg PO DAILY 11/03/16 Hydroxyurea [Hydrea 500 mg Capsule] 500 mg PO Q12 11/03/16 Ibuprofen [Motrin 800 mg Tablet] 800 mg PO BID 11/03/16 Multivitamin [Daily Multiple Vitamin] 1 each PO DAILY 11/03/16 Oxycodone HCl [Oxycontin Sr 40 mg Tablet] 40 mg PO Q8 11/03/16 Oxycodone HCl [Roxicodone] 30 mg PO Q6HP PRN 11/03/16 Rivaroxaban [Xarelto] 20 mg PO DAILY 11/03/16 History of Present Illness History of Present Illness: WILLIE ALAN is a 46 year old female, she has a history of sickle cell disease, she came to the emergency room because generalized body pain. She was seen in the emergency room and she was evaluated and she was advised to be admitted . The last admission for significant bone pain crisis was April 2016. Hospital Course Hospital Course: Admitted because of bone pain crisis, sickle cell anemia requiring blood transfusion. She was treated with IV Dilaudid, and IV fluids. MRI of the right shoulder was done it showed tear of the rotator cuff Physical Exam Vital Signs: Temp Pulse Resp BP Pulse Ox 98.8 F 69 17 100/64 97 11/22/16 16:19 11/22/16 16:19 11/22/16 16:19 11/22/16 16:19 11/22/16 16:19 Intake & Output 11/21/16 11/22/16 11/23/16 06:59 06:59 06:59 Intake Total 5004 4058 1997 Output Total 3600 3300 3200 Balance 1404 758 -1203 Weight 67.5 kg General appearance: PRESENT: no acute distress Eye exam: PRESENT: PERRLA Respiratory exam: PRESENT: clear to auscultation carolyn Cardiovascular exam: PRESENT: +S1, +S2 GI/Abdominal exam: PRESENT: soft Neurological exam: PRESENT: alert, CN II-XII grossly intact Results Laboratory Results: 11/18/16 11:45 11/17/16 15:30 11/22/16 17:00 Urine Color YELLOW Urine Appearance SLIGHTLY-CLOUDY Urine pH 7.0 Ur Specific [place] 1.008 Urine Protein NEGATIVE Urine Glucose (UA) NEGATIVE Urine Ketones NEGATIVE Urine Blood SMALL H Urine Nitrite NEGATIVE Ur Leukocyte Esterase SMALL H Urine WBC (Auto) 2 Impressions: Chest X-Ray 11/03/16 12:52 IMPRESSION: STABLE APPEARANCE OF THE CHEST. SUPPORT DEVICES UNCHANGED. 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 High-grade partial thickness tear in the anterior half of the supraspinatus tendon Small superior labral tear without paralabral cyst
[2016-11-22] MEDS: NORMAL SALINE 1000 ML 1,000 ML with POTASSIUM CHLORIDE 20 MEQ, MAGNESIUM SULFATE 8 MEQ,... IV SCH ×5 (23:47)
[2016-11-23] MEDS: HYDROMORPHONE HCL INJ/PF 2 MG/ML AMPULE IV PRN ×3 (01:18→09:24)
[2016-11-23] MEDS: ONDANSETRON HCL INJ/PF 4 MG/2 ML SDV IV PRN ×2 (01:21→09:24)
[2016-11-23] MEDS: DIPHENHYDRAMINE HCL 50 MG/ML VIAL IV PRN (05:30)
[2016-11-23] MEDS: OXYCODONE HCL SR 40 MG TABLET PO SCH (05:34)
[2016-11-23 08:26] VITALS: BP 107/60
[2016-11-23] MEDS: MULTIVITAMIN TABLET PO SCH (09:24)
[2016-11-23] MEDS: HYDROXYUREA 500 MG CAPSULE PO SCH (09:24)
[2016-11-23] MEDS: FOLIC ACID 1 MG TABLET PO SCH (09:24)
== END 2016-11-23 12:03 | disposition home or self-care (01) | DRG 812 ==
LOC: ER 13:23 → 4N 18:20
PROVIDERS: ADMIT Internal Medicine; ATTEND Internal Medicine
DX: D57.819 Other sickle-cell disorders with crisis, unspecified (principal); M75.112 Incomplete rotator cuff tear or rupture of left shoulder, not specified as traumatic; Z86.14 Personal history of Methicillin resistant Staphylococcus aureus infection; Z90.49 Acquired absence of other specified parts of digestive tract; Z79.899 Other long term (current) drug therapy; Z88.8 Allergy status to other drugs, medicaments and biological substances
CPT/HCPCS: 36415; 36430; 71020; 80048; 80053; 81001; 81025; 82272; 83010; 83615; 85025; 85027; 85045; 85610; 86850; 86900; 86901; 86920; 87070; 87804; 87880; 93005; 93010; 96361; 96374; 96375; J0885; J1170; J1200; J1885; J2405; J3411; J3475; J3480; J3490; J7030; P9016; Q4081

== ENCOUNTER 2016-12-19 02:14 | Emergency (ER) | payer MEDICAID ==
[2016-12-19] MEDS ORDERED: HYDROMORPHONE HCL INJ/PF 2 MG/ML AMPULE IV ONE (03:16)
[2016-12-19] MEDS ORDERED: NORMAL SALINE 1000 ML 1,000 ML IV ONE (03:16)
[2016-12-19] MEDS ORDERED: ONDANSETRON HCL INJ/PF 4 MG/2 ML SDV IV ONE (03:17)
--- NOTE | 2016-12-19 03:31 | ER Document Report ---
ED General - General Chief Complaint: Sickle Cell Crisis Stated Complaint: BODY PAIN Time Seen by Provider: 12/19/16 02:53 Mode of Arrival: Ambulatory Information source: Patient TRAVEL OUTSIDE OF THE [place] IN LAST 30 DAYS: No - HPI Notes: Patient is a 46-year-old female history of chronic sickle cell disease presents emergency department with report that she ran out of her OxyContin 40 mg 3 times daily this morning and her oxycodone 30 mg p.o. every 6 hours as needed this morning related to needing additional medication from a bone infarct and pain and problems with the right shoulder. She received a previous cortisone injection last month for this without improvement. The patient states she has diffuse bony pain throughout her arms and legs. She denies any significant abdominal pain. She reports no chest pain or difficulty breathing. She describes mild nausea. No fever or chills. The patient states this is similar to previous episode of sickle cell pain crisis. The patient has infrequent emergency department visits and usually is very well controlled. - Related Data Allergies/Adverse Reactions: doxycycline [Doxycycline] Allergy (Severe, Verified 10/31/14 18:48) morphine [Morphine] Allergy (Severe, Verified 10/31/14 18:48) unknown antibiotic Allergy (Uncoded 02/27/16 09:34) Past Medical History - General Information source: Patient - Social History Smoking Status: Never Smoker Frequency of alcohol use: None Drug Abuse: None Lives with: Family Family History: Reviewed & Not Pertinent Patient has suicidal ideation: No Patient has homicidal ideation: No - Past Medical History Cardiac Medical History: Reports: Hx Heart Murmur Renal/ Medical History: Reports: Hx Ovarian Cysts. Denies: Hx Peritoneal Dialysis Musculoskeltal Medical History: Denies Hx Muscular Dystrophy Skin Medical History: Reports Hx MRSA Psychiatric Medical History: Reports: Hx Anxiety Denies: Hx Depression Traumatic Medical History: Denies: Hx Fractures Infectious Medical History: Reports: Hx MRSA - History of MRSA osteomyelitis Past Surgical History: Reports: Hx Appendectomy, Hx Section, Hx Cholecystectomy, Hx Orthopedic Surgery - R knee, Hx Tonsillectomy. Denies: Hx Bowel Surgery, Hx Coronary Artery Bypass Graft, Hx Gastric Bypass Surgery, Hx Herniorrhaphy, Hx Mastectomy, Hx Pacemaker, Hx Tubal Ligation - Immunizations Immunizations up to date: Yes Hx Diphtheria, Pertussis, Tetanus Vaccination: Yes Hx Pneumococcal Vaccination: 03/20/14 Review of Systems - Review of Systems Notes: REVIEW OF SYSTEMS: CONSTITUTIONAL : Denies fever, chills, or sweats. Denies recent illness. EENT: Denies eye, ear, throat, or mouth pain or symptoms. Denies nasal or sinus congestion or discharge. Denies throat, tongue, or mouth swelling or difficulty swallowing. CARDIOVASCULAR: Denies chest pain. Denies palpitations or racing or irregular heart beat. Denies ankle edema. RESPIRATORY: Denies cough, cold, or chest congestion. Denies shortness of breath, difficulty breathing, or wheezing. GASTROINTESTINAL: Denies abdominal pain or distention. Denies nausea, vomiting , or diarrhea. Denies blood in vomitus, stools, or per rectum. Denies black, tarry stools. Denies constipation. GENITOURINARY: Denies difficulty urinating, painful urination, burning, frequency, blood in urine, or discharge. FEMALE GENITOURINARY: Denies vaginal bleeding, heavy or abnormal periods, irregular periods. Denies vaginal discharge or odor. MUSCULOSKELETAL: Patient reports pain throughout her arms and her legs and through her pelvis posteriorly. The patient reports worse pain to the right lateral shoulder. SKIN: Denies rash, lesions or sores. Patient states previous cellulitis left lower extremity is resolved. HEMATOLOGIC : Denies easy bruising or bleeding. LYMPHATIC: Denies swollen, enlarged glands. NEUROLOGICAL: Denies confusion or altered mental status. Denies passing out or loss of consciousness. Denies dizziness or lightheadedness. Denies headache. Denies weakness or paralysis or loss of use of either side. Denies problems with gait or speech. Denies sensory loss, numbness, or tingling. Denies seizures. PSYCHIATRIC: Denies anxiety or stress. Denies depression, suicidal ideation, or homicidal ideation. ALL OTHER SYSTEMS REVIEWED AND NEGATIVE. Dictation was performed using [employer] voice recognition software to morbid and to wait and try to save Physical Exam - Vital signs Vitals: Temp Pulse Resp BP Pulse Ox 99.1 F 79 20 113/75 98 12/19/16 02:20 12/19/16 02:20 12/19/16 02:20 12/19/16 02:20 12/19/16 02:20 - Notes Notes: PHYSICAL EXAMINATION: GENERAL: Well-appearing, well-nourished and in Obvious discomfort. HEAD: Atraumatic, normocephalic. EYES: Pupils equal round and reactive to light, extraocular movements intact, conjunctiva are normal. ENT: Nares patent, oropharynx clear without exudates. Moist mucous membranes. NECK: Normal range of motion, supple without lymphadenopathy LUNGS: Breath sounds clear to auscultation bilaterally and equal. No wheezes rales or rhonchi. HEART: Regular rate and rhythm without murmurs ABDOMEN: Soft, nontender, nondistended abdomen. No guarding, no rebound. No masses appreciated. Female : deferred Musculoskeletal: no pitting or edema. No cyanosis. Patient has diffuse tenderness to bilateral humerus and both femurs into the bony pelvis. There is no crepitance or bony deformity or significant erythema noted. Distally the patient is neurovascularly intact. NEUROLOGICAL: Cranial nerves grossly intact. Normal speech, normal gait. Normal sensory, motor exams PSYCH: Normal mood, normal affect. SKIN: Mild dermatitis left lower extremity. No evidence for acute cellulitis or abscess or other abnormality. Course - Re-evaluation Re-evalutation: 12/19/16 03:30 Orders given for lab work, oxygen, IV normal saline bolus chest x-ray and Zofran and Dilaudid for pain relief. - Vital Signs Vital signs: Temp Pulse Resp BP Pulse Ox 99.1 F 79 20 113/75 98 12/19/16 02:20 12/19/16 02:20 12/19/16 02:20 12/19/16 02:20 12/19/16 02:20 Discharge - Discharge Clinical Impression: Sickle cell pain crisis, Opioid withdrawal
[2016-12-19] MEDS ORDERED: OXYCODONE HCL SR 10 MG TABLET PO ONE ×2 (04:04)
--- NOTE | 2016-12-19 04:56 | RADIOLOGY REPORT (SQ) ---
EXAM DESCRIPTION: CHEST SINGLE VIEW COMPLETED DATE/TIME: 12/19/2016 4:31 am REASON FOR STUDY: sickle cell pain crisis COMPARISON: 5.17.17. 09/09/2015. EXAM PARAMETERS: NUMBER OF VIEWS: One view. TECHNIQUE: Single frontal radiographic view of the chest acquired. RADIATION DOSE: NA LIMITATIONS: None. FINDINGS: LUNGS AND PLEURA: Mild in-moderate interstitial markings. Chronic. MEDIASTINUM AND HILAR STRUCTURES: No masses. Contour normal. HEART AND VASCULAR STRUCTURES: Heart normal in size. Normal vasculature. BONES: No acute findings. HARDWARE: Left mini port central line tip at the cavoatrial junction. Right upper abdominal clips. OTHER: No other significant finding. IMPRESSION: No significant interval change. Mild chronic interstitial lung disease pattern. Mini p ort central line. TECHNICAL DOCUMENTATION: JOB ID: [id number]
[2016-12-19 05:03] LABS: HEMATOCRIT 23.9 % (36.0-47.0); HGB HCT DIFFERENCE 0.1; MEAN CORPUSCULAR HEMOGLOBIN 38.2 pg (27.0-33.4); MEAN CORPUSCULAR HGB CONC 33.3 g/dL (32.0-36.0); RED BLOOD COUNT 2.08 10^6/uL (3.72-5.28); RED CELL DISTRIBUTION WIDTH 26.5 % (11.5-14.0); WHITE BLOOD COUNT 6.6 10^3/uL (4.0-10.5)
[2016-12-19 05:09] LABS: ALANINE AMINOTRANSFERASE 45 U/L (9-52); ALKALINE PHOSPHATASE 180 U/L (38-126); ANION GAP 13 (5-19); ASPARTATE AMINO TRANSFERASE 44 U/L (14-36); BILIRUBIN,DIRECT 0.7 mg/dL (0.0-0.4); BILIRUBIN,TOTAL 4.1 mg/dL (0.2-1.3); BLOOD UREA NITROGEN 8 mg/dL (7-20); CALCIUM 9.9 mg/dL (8.4-10.2); CARBON DIOXIDE 20 mmol/L (22-30); CHLORIDE 112 mmol/L (98-107); CREATININE RESULT 0.63 mg/dL (0.52-1.25); GLUCOSE 116 mg/dL (75-110); POTASSIUM 3.2 mmol/L (3.6-5.0); SODIUM 144.9 mmol/L (137-145); TOTAL PROTEIN 8.8 g/dL (6.3-8.2)
[2016-12-19 05:34] LABS: MEAN CORPUSCULAR VOLUME 115 fl (80-97)
[2016-12-19 05:38] LABS: BASOPHILS % (MANUAL) 0 % (0-2); EOSINOPHILS % (MANUAL) 0 % (0-6); LYMPHOCYTES % (MANUAL) 35 % (13-45); TOTAL CELLS COUNTED 100
[2016-12-19 05:42] LABS: ANISOCYTOSIS 3+; POIKILOCYTOSIS 2+
[2016-12-19 05:43] LABS: ACANTHOCYTES SLIGHT; BURR CELLS 1+; OVALOCYTES 1+
[2016-12-19] MEDS ORDERED: POTASSIUM CHLORIDE 10 MEQ TABLET.SA PO ONE (05:59)
[2016-12-19 06:31] LABS: APPEARANCE,URINE SLIGHTLY-CLOUDY; BILIRUBIN,URINE NEGATIVE (NEGATIVE); GLUCOSE, URINE NEGATIVE (NEGATIVE); KETONES,URINE NEGATIVE (NEGATIVE); LEUKOCYTE ESTERASE,URINE LARGE (NEGATIVE); NITRITE,URINE NEGATIVE (NEGATIVE); PROTEIN,URINE 30 mg/dL (NEGATIVE); URINE SPECIFIC GRAVITY 1.011; UROBILINOGEN,URINE NEGATIVE mg/dL (<2.0)
[2016-12-19 07:10] VITALS: BP 107/72
== END 2016-12-19 07:28 | disposition home or self-care (01) ==
LOC: ER 02:14
DX: D57.00 Hb-SS disease with crisis, unspecified (principal); F11.23 Opioid dependence with withdrawal; N30.01 Acute cystitis with hematuria; R11.0 Nausea; Z88.1 Allergy status to other antibiotic agents; Z88.5 Allergy status to narcotic agent; Z86.14 Personal history of Methicillin resistant Staphylococcus aureus infection; L30.9 Dermatitis, unspecified
CPT/HCPCS: 99284; 96361; 96374; 96375; 36415; 87086; 83735; 85025; 85045; 80053; 81001; 71010; J1170; J3490; J2405; J7030

== ENCOUNTER 2017-01-13 12:17 | Inpatient (IN) | payer MEDICAID ==
[2017-01-13] MEDS: CLINDAMYCIN 600 MG/D5W RTU 600 MG/50 ML RTUPB IV SCH ×2 (13:36→21:49)
[2017-01-13] MEDS: HYDROMORPHONE HCL INJ/PF 2 MG/ML AMPULE IV PRN ×3 (13:37→21:49)
[2017-01-13] MEDS: NORMAL SALINE 1000 ML 1,000 ML IV PRN (13:38)
--- NOTE | 2017-01-13 13:49 | RADIOLOGY REPORT (SQ) ---
EXAM DESCRIPTION: CHEST PA/LAT COMPLETED DATE/TIME: 01/13/2017 1:21 pm REASON FOR STUDY: ABDOMINAL PAIN COMPARISON: 12/19/2016 EXAM PARAMETERS: NUMBER OF VIEWS: two views TECHNIQUE: Digital Frontal and Lateral radiographic views of the chest acquired. RADIATION DOSE: NA LIMITATIONS: none FINDINGS: LUNGS AND PLEURA: No opacities, masses or pneumothorax. No pleural effusion. MEDIASTINUM AND HILAR STRUCTURES: No masses or contour abnormalities. HEART AND VASCULAR STRUCTURES: Heart normal size. No evidence for failure. BONES: No acute findings. HARDWARE: Stable position of left-sided port. OTHER: No other significant finding. IMPRESSION: NO ACUTE RADIOGRAPHIC FINDING IN THE CHEST. TECHNICAL DOCUMENTATION: JOB ID: [id number] [employer]- All Rights Reserved
--- NOTE | 2017-01-13 13:50 | RADIOLOGY REPORT (SQ) ---
EXAM DESCRIPTION: KUB/ABDOMEN (SINGLE VIEW) COMPLETED DATE/TIME: 01/13/2017 1:21 pm REASON FOR STUDY: ABDOMINAL PAIN COMPARISON: None. NUMBER OF VIEWS: One view. TECHNIQUE: Supine radiographic image of the abdomen acquired. LIMITATIONS: None. FINDINGS: BOWEL GAS PATTERN: Normal bowel gas pattern. No dilated loops. CALCIFICATIONS: No suspicious calcifications. SOFT TISSUES: Liver shadow extends to the level of the iliac crest. This could be a normal variant o r hepatomegaly. HARDWARE: Clips right upper quadrant. BONES: No bone lesions or fracture. OTHER: No other significant finding. IMPRESSION: Possible hepatomegaly.
[2017-01-13 14:17] LABS: HEMATOCRIT 20.5 % (36.0-47.0); HGB HCT DIFFERENCE 1.7; MEAN CORPUSCULAR HEMOGLOBIN 41.4 pg (27.0-33.4); MEAN CORPUSCULAR VOLUME 115 fl (80-97); RED BLOOD COUNT 1.78 10^6/uL (3.72-5.28); RED CELL DISTRIBUTION WIDTH 24.2 % (11.5-14.0)
[2017-01-13 14:36] LABS: ALANINE AMINOTRANSFERASE 45 U/L (9-52); ALKALINE PHOSPHATASE 174 U/L (38-126); ANION GAP 15 (5-19); ASPARTATE AMINO TRANSFERASE 64 U/L (14-36); BILIRUBIN,DIRECT 1.2 mg/dL (0.0-0.4); BILIRUBIN,TOTAL 5.1 mg/dL (0.2-1.3); BLOOD UREA NITROGEN 10 mg/dL (7-20); CALCIUM 9.9 mg/dL (8.4-10.2); CARBON DIOXIDE 18 mmol/L (22-30); CHLORIDE 110 mmol/L (98-107); CREATININE RESULT 0.94 mg/dL (0.52-1.25); GLUCOSE 111 mg/dL (75-110); POTASSIUM 3.8 mmol/L (3.6-5.0); SODIUM 143.1 mmol/L (137-145); TOTAL PROTEIN 8.7 g/dL (6.3-8.2)
[2017-01-13 14:43] LABS: HEMOGLOBIN 7.4 g/dL (12.0-15.5)
[2017-01-13 14:50] LABS: ANISOCYTOSIS 3+; BASOPHILS % (MANUAL) 2 % (0-2); EOSINOPHILS % (MANUAL) 1 % (0-6); HOWELL-JOLLY BODIES PRESENT; HYPOCHROMASIA SLIGHT; LYMPHOCYTES % (MANUAL) 47 % (13-45); NUCLEATED RED BLOOD CELLS 1 /100 WBC (0); OVALOCYTES 2+; POIKILOCYTOSIS 3+; POLYCHROMASIA 2+; SCHISTOCYTES 1+; TARGET CELLS 1+; TOTAL CELLS COUNTED 100
[2017-01-13] MEDS: ONDANSETRON HCL INJ/PF 4 MG/2 ML SDV IV PRN ×2 (16:34→21:49)
--- NOTE | 2017-01-13 17:15 | EKG REPORT ---
SEVERITY:- NORMAL ECG - SINUS RHYTHM : Confirmed by: No Boss MD 13-Jan-2017 17:15:25
--- NOTE | 2017-01-13 20:37 | PDOC H&P ---
History of Present Illness Admission Date/PCP: 01/13/17 12:17 History of Present Illness: WILLIE ALAN is a 47 year old female, She has a history of sickle cell disease, she came to the office today for evaluation of cellulitis affecting the left leg, pain involving multiple extremity and also jaundice,She has sickle cell disease with multiple hospital admission for sickle cell crisis including bone pain crisis, hemolytic crisis, sequestration crisis, vaso- occlusive crisis, she was evaluated in the office, on examination she has scleral jaundice, she looks sick she was in pain, she was admitted directly from the office into the hospital for management of her symptoms the hemogram revealed anemia with hemoglobin of 7 that was elevated reticulocyte count suggesting active bone marrow function. 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 Denies: HIV Past Surgical History Past Surgical History: Reports: Appendectomy, Section, Cholecystectomy , Orthopedic Surgery - R knee, Tonsillectomy Social History Smoking Status: Never Smoker Frequency of Alcohol Use: None Hx Recreational Drug Use: No Drugs: None Hx Prescription Drug Abuse: No Family History Family History: Reviewed & Not Pertinent Parental Family History Reviewed: Yes Children Family History Reviewed: Yes Sibling(s) Family History Reviewed.: Yes Medication/Allergy Home Medications: Epoetin Federico [Procrit] 60,000 unit IJ FR@1000 11/03/16 Folic Acid [Folvite 1 mg Tablet] 1 mg PO DAILY 11/03/16 Hydroxyurea [Hydrea 500 mg Capsule] 500 mg PO Q12 11/03/16 Ibuprofen [Motrin 800 mg Tablet] 800 mg PO BID 11/03/16 Multivitamin [Daily Multiple Vitamin] 1 each PO DAILY 11/03/16 Oxycodone HCl [Roxicodone] 30 mg PO Q6HP PRN 11/03/16 Rivaroxaban [Xarelto] 20 mg PO DAILY 11/03/16 Gabapentin [Neurontin 300 mg Capsule] 300 mg PO Q8 01/13/17 Oxycodone HCl [Oxycontin Sr 40 mg Tablet] 40 mg PO Q8 01/13/17 Allergies/Adverse Reactions: doxycycline [Doxycycline] Allergy (Severe, Verified 10/31/14 18:48) morphine [Morphine] Allergy (Severe, Verified 10/31/14 18:48) unknown antibiotic Allergy (Uncoded 02/27/16 09:34) Review of Systems Constitutional: PRESENT: chills, fatigue, headache(s) Eyes: ABSENT: visual disturbances Ears: ABSENT: hearing changes Cardiovascular: PRESENT: chest pain Respiratory: ABSENT: cough, hemoptysis Gastrointestinal: ABSENT: abdominal pain, constipation, diarrhea, hematemesis, hematochezia, nausea, vomiting Genitourinary: ABSENT: dysuria, hematuria Musculoskeletal: PRESENT: back pain, deformity, joint swelling Integumentary: ABSENT: rash, wounds Neurological: ABSENT: abnormal gait, abnormal speech, confusion, dizziness, focal weakness, syncope Psychiatric: ABSENT: anxiety, depression, homidical ideation, suicidal ideation Endocrine: ABSENT: cold intolerance, heat intolerance, menstrual abnormalities, polydipsia, polyuria Hematologic/Lymphatic: ABSENT: easy bleeding, easy bruising, lymphadenopathy Physical Exam Vital Signs: Temp Pulse Resp BP Pulse Ox 98.8 F 75 16 99/60 L 96 01/13/17 15:59 01/13/17 15:59 01/13/17 15:59 01/13/17 15:59 01/13/17 15:59 Intake & Output 01/12/17 01/13/17 01/14/17 06:59 06:59 06:59 Intake Total 646 Balance 646 Weight 53.3 kg General appearance: PRESENT: mild distress Eye exam: PRESENT: PERRLA Respiratory exam: PRESENT: clear to auscultation carolyn Cardiovascular exam: PRESENT: +S1, +S2 GI/Abdominal exam: PRESENT: soft Extremities exam: PRESENT: other - There is cellulitis of the left leg Musculoskeletal exam: PRESENT: deformity Neurological exam: PRESENT: alert, CN II-XII grossly intact Results Laboratory Results: 01/13/17 13:30 01/13/17 13:30 01/13/17 01/13/17 01/13/17 13:30 13:30 13:30 WBC 6.0 RBC 1.78 L Hgb 7.4 L Hct 20.5 L MCV 115 H MCH 41.4 H MCHC 36.0 RDW 24.2 H Plt Count 346 Seg Neutrophils % Not Reportable Lymphocytes % Not Reportable Monocytes % Not Reportable Eosinophils % Not Reportable Basophils % Not Reportable Absolute Neutrophils Not Reportable Absolute Lymphocytes Not Reportable Absolute Monocytes Not Reportable Absolute Eosinophils Not Reportable Absolute Basophils Not Reportable Retic Count (auto) 3.01 H Absolute Retic 0.054 Sodium 143.1 Potassium 3.8 Chloride 110 H Carbon Dioxide 18 L Anion Gap 15 BUN 10 Creatinine 0.94 Est GFR ( Amer) > 60 Est GFR (Non-Af Amer) > 60 Glucose 111 H Calcium 9.9 Total Bilirubin 5.1 H AST 64 H ALT 45 Alkaline Phosphatase 174 H Total Protein 8.7 H Albumin 5.0 TSH 0.98 Impressions: Chest X-Ray 01/13/17 00:00 IMPRESSION: NO ACUTE RADIOGRAPHIC FINDING IN THE CHEST. KUB X-Ray 01/13/17 00:00 IMPRESSION: Possible hepatomegaly. Assessment & Plan - Diagnosis (1) Cellulitis of left leg Is this a current diagnosis for this admission?: YesPlan: She will be treated with IV antibiotic (2) Jaundice Is this a current diagnosis for this admission?: Yes (3) Nulwph-bedr-xkrygirxww C disease with crisis Is this a current diagnosis for this admission?: YesPlan: IV fluids and pain control with Dilaudid (4) Mbczmk-bpdb-lnjgxltpej C disease with crisis Is this a current diagnosis for this admission?: Yes
[2017-01-14] MEDS: HYDROMORPHONE HCL INJ/PF 2 MG/ML AMPULE IV PRN ×6 (01:39→21:18)
[2017-01-14] MEDS: ONDANSETRON HCL INJ/PF 4 MG/2 ML SDV IV PRN ×4 (01:39→21:19)
[2017-01-14 02:35] LABS: APPEARANCE,URINE CLEAR; BILIRUBIN,URINE NEGATIVE (NEGATIVE); GLUCOSE, URINE NEGATIVE (NEGATIVE); KETONES,URINE NEGATIVE (NEGATIVE); LEUKOCYTE ESTERASE,URINE NEGATIVE (NEGATIVE); NITRITE,URINE NEGATIVE (NEGATIVE); PROTEIN,URINE NEGATIVE (NEGATIVE); URINE SPECIFIC GRAVITY 1.011
[2017-01-14] MEDS: DIPHENHYDRAMINE HCL 50 MG/ML VIAL IV PRN ×3 (03:34→21:19)
[2017-01-14] MEDS: CLINDAMYCIN 600 MG/D5W RTU 600 MG/50 ML RTUPB IV SCH ×3 (05:40→21:18)
[2017-01-14] MEDS: NORMAL SALINE 1000 ML 1,000 ML IV PRN (13:06)
[2017-01-14 19:01] LABS: ABSOLUTE BASOPHILS # (AUTO) 0.1 10^3/uL (0.0-0.2); ABSOLUTE EOSINOPHILS # (AUTO) 0.4 10^3/uL (0.0-0.6); ABSOLUTE LYMPHOCYTES (AUTO) 3.1 10^3/uL (0.5-4.7); ABSOLUTE MONOCYTES (AUTO) 0.7 10^3/uL (0.1-1.4); ABSOLUTE NEUT (AUTO) 2.4 10^3/uL (1.7-8.2); BASOPHILS % (AUTO) 0.8 % (0-2); EOSINOPHILS % (AUTO) 5.3 % (0-6); HEMATOCRIT 16.5 % (36.0-47.0); HGB HCT DIFFERENCE 0.9; LYMPHOCYTES % (AUTO) 47.5 % (13-45); MEAN CORPUSCULAR HEMOGLOBIN 40.9 pg (27.0-33.4); MEAN CORPUSCULAR HGB CONC 35.3 g/dL (32.0-36.0); MEAN CORPUSCULAR VOLUME 116 fl (80-97); MONOCYTES % (AUTO) 10.3 % (3-13); RED BLOOD COUNT 1.42 10^6/uL (3.72-5.28); RED CELL DISTRIBUTION WIDTH 23.8 % (11.5-14.0); SEGMENTED NEUTROPHILS % (AUTO) 36.1 % (42-78); WHITE BLOOD COUNT 6.6 10^3/uL (4.0-10.5)
[2017-01-14 19:17] LABS: ALANINE AMINOTRANSFERASE 40 U/L (9-52); ALBUMIN 3.8 g/dL (3.5-5.0); ALKALINE PHOSPHATASE 141 U/L (38-126); ANION GAP 10 (5-19); ASPARTATE AMINO TRANSFERASE 44 U/L (14-36); BILIRUBIN,DIRECT 0.5 mg/dL (0.0-0.4); BILIRUBIN,TOTAL 3.3 mg/dL (0.2-1.3); BLOOD UREA NITROGEN 9 mg/dL (7-20); CALCIUM 8.7 mg/dL (8.4-10.2); CARBON DIOXIDE 21 mmol/L (22-30); CHLORIDE 112 mmol/L (98-107); CREATININE RESULT 0.94 mg/dL (0.52-1.25); GLUCOSE 109 mg/dL (75-110); POTASSIUM 3.6 mmol/L (3.6-5.0); SODIUM 142.7 mmol/L (137-145); TOTAL PROTEIN 6.7 g/dL (6.3-8.2)
[2017-01-14 19:32] LABS: ANISOCYTOSIS 3+; HYPOCHROMASIA SLIGHT; OVALOCYTES SLIGHT; POIKILOCYTOSIS 1+; POLYCHROMASIA 1+
[2017-01-14 19:33] LABS: HOWELL-JOLLY BODIES PRESENT; TARGET CELLS 1+; TEAR DROP CELLS SLIGHT
[2017-01-14 19:34] LABS: ACANTHOCYTES SLIGHT; HEMOGLOBIN 5.8 g/dL (12.0-15.5)
[2017-01-14] MEDS: OXYCODONE HCL IR 5 MG TABLET PO PRN (19:54)
[2017-01-14] MEDS ORDERED: HYDROXYUREA 500 MG CAPSULE PO ONE (20:00)
[2017-01-14] MEDS ORDERED: FOLIC ACID 1 MG TABLET PO ONE (20:00)
[2017-01-14] MEDS ORDERED: RIVAROXABAN 10 MG TABLET PO ONE (20:00)
--- NOTE | 2017-01-14 20:27 | PDOC PROGRESS REPORT ---
Subjective Progress Note for:: 01/14/17 Subjective:: The hemoglobin is low this is most likely dilutional due to IV fluid therapy, I do not think she needs blood transfusion at this point will continue to monitor hemogram closely Physical Exam Vital Signs: Temp Pulse Resp BP Pulse Ox 98.9 F 70 20 99/59 L 99 01/14/17 19:00 01/14/17 19:00 01/14/17 19:00 01/14/17 19:00 01/14/17 19:00 Intake & Output 01/13/17 01/14/17 01/15/17 06:59 06:59 06:59 Intake Total 2626 710 Output Total 480 600 Balance 2146 110 Weight 60.2 kg General appearance: PRESENT: no acute distress Eye exam: PRESENT: PERRLA Cardiovascular exam: PRESENT: +S1, +S2 GI/Abdominal exam: PRESENT: soft Neurological exam: PRESENT: alert Results Laboratory Results: 01/14/17 18:53 01/14/17 18:53 01/14/17 01/14/17 01/14/17 01:42 18:53 18:53 WBC 6.6 RBC 1.42 L Hgb 5.8 L Hct 16.5 L MCV 116 H MCH 40.9 H MCHC 35.3 RDW 23.8 H Plt Count 268 Seg Neutrophils % 36.1 L Lymphocytes % 47.5 H Monocytes % 10.3 Eosinophils % 5.3 Basophils % 0.8 Absolute Neutrophils 2.4 Absolute Lymphocytes 3.1 Absolute Monocytes 0.7 Absolute Eosinophils 0.4 Absolute Basophils 0.1 Sodium 142.7 Potassium 3.6 Chloride 112 H Carbon Dioxide 21 L Anion Gap 10 BUN 9 Creatinine 0.94 Est GFR ( Amer) > 60 Est GFR (Non-Af Amer) > 60 Glucose 109 Calcium 8.7 Total Bilirubin 3.3 H AST 44 H ALT 40 Alkaline Phosphatase 141 H Total Protein 6.7 Albumin 3.8 Urine Color HINA Urine Appearance CLEAR Urine pH 6.0 Ur Specific [place] 1.011 Urine Protein NEGATIVE Urine Glucose (UA) NEGATIVE Urine Ketones NEGATIVE Urine Blood NEGATIVE Urine Nitrite NEGATIVE Ur Leukocyte Esterase NEGATIVE Urine WBC (Auto) 1 Urine RBC (Auto) 0 Impressions: Chest X-Ray 01/13/17 00:00 IMPRESSION: NO ACUTE RADIOGRAPHIC FINDING IN THE CHEST. KUB X-Ray 01/13/17 00:00 IMPRESSION: Possible hepatomegaly. Assessment & Plan - Diagnosis (1) Cellulitis of left leg Is this a current diagnosis for this admission?: Yes (2) Jaundice Is this a current diagnosis for this admission?: Yes (3) Dylgow-ahia-evhakhczfp C disease with crisis Is this a current diagnosis for this admission?: Yes (4) Wfazew-fpej-kuzguhauwy C disease with crisis Is this a current diagnosis for this admission?: Yes - Plan Summary Plan Summary: Continue present treatment
[2017-01-14] MEDS: GABAPENTIN 300 MG CAPSULE PO SCH (21:19)
[2017-01-14] MEDS: OXYCODONE HCL SR 40 MG TABLET PO SCH (23:33)
[2017-01-15] MEDS: ONDANSETRON HCL INJ/PF 4 MG/2 ML SDV IV PRN ×2 (01:25→17:50)
[2017-01-15] MEDS: HYDROMORPHONE HCL INJ/PF 2 MG/ML AMPULE IV PRN ×5 (01:25→23:09)
[2017-01-15] MEDS: OXYCODONE HCL IR 5 MG TABLET PO PRN ×2 (04:50→16:57)
[2017-01-15] MEDS: DIPHENHYDRAMINE HCL 50 MG/ML VIAL IV PRN ×3 (05:34→23:09)
[2017-01-15] MEDS: GABAPENTIN 300 MG CAPSULE PO SCH ×3 (05:34→21:21)
[2017-01-15] MEDS: HYDROXYUREA 500 MG CAPSULE PO SCH ×2 (05:34→17:04)
[2017-01-15] MEDS: OXYCODONE HCL SR 40 MG TABLET PO SCH ×3 (06:10→21:21)
[2017-01-15] MEDS: CLINDAMYCIN 600 MG/D5W RTU 600 MG/50 ML RTUPB IV SCH ×3 (06:10→21:21)
[2017-01-15 08:42] LABS: HEMATOCRIT 22.1 % (36.0-47.0); HGB HCT DIFFERENCE 0.7; MEAN CORPUSCULAR HEMOGLOBIN 36.9 pg (27.0-33.4); MEAN CORPUSCULAR HGB CONC 34.3 g/dL (32.0-36.0); RED BLOOD COUNT 2.06 10^6/uL (3.72-5.28); RED CELL DISTRIBUTION WIDTH 27.1 % (11.5-14.0); WHITE BLOOD COUNT 6.2 10^3/uL (4.0-10.5)
[2017-01-15 08:48] LABS: BAND NEUTROPHILS % (MANUAL) 1 % (3-5); BASOPHILS % (MANUAL) 2 % (0-2); EOSINOPHILS % (MANUAL) 6 % (0-6); LYMPHOCYTES % (MANUAL) 59 % (13-45); NUCLEATED RED BLOOD CELLS 5 /100 WBC (0); TOTAL CELLS COUNTED 100
[2017-01-15 08:50] LABS: ANISOCYTOSIS 2+; OVALOCYTES SLIGHT; POIKILOCYTOSIS 2+; POLYCHROMASIA SLIGHT
[2017-01-15 08:51] LABS: MEAN CORPUSCULAR VOLUME 107 fl (80-97); TARGET CELLS SLIGHT; TEAR DROP CELLS SLIGHT
[2017-01-15 08:54] LABS: ALANINE AMINOTRANSFERASE 36 U/L (9-52); ALBUMIN 3.7 g/dL (3.5-5.0); ALKALINE PHOSPHATASE 144 U/L (38-126); ANION GAP 10 (5-19); ASPARTATE AMINO TRANSFERASE 41 U/L (14-36); BILIRUBIN,DIRECT 0.3 mg/dL (0.0-0.4); BILIRUBIN,TOTAL 3.1 mg/dL (0.2-1.3); BLOOD UREA NITROGEN 10 mg/dL (7-20); CALCIUM 8.7 mg/dL (8.4-10.2); CARBON DIOXIDE 20 mmol/L (22-30); CHLORIDE 112 mmol/L (98-107); CREATININE RESULT 0.91 mg/dL (0.52-1.25); GLUCOSE 97 mg/dL (75-110); HEMOGLOBIN 7.6 g/dL (12.0-15.5); TOTAL PROTEIN 6.5 g/dL (6.3-8.2)
[2017-01-15] MEDS: NORMAL SALINE 1000 ML 1,000 ML IV PRN ×3 (09:03→17:04)
[2017-01-15] MEDS: FOLIC ACID 1 MG TABLET PO SCH (09:04)
--- NOTE | 2017-01-15 10:33 | PDOC PROGRESS REPORT ---
Subjective Progress Note for:: 01/15/17 Subjective:: No fever or chills. Persistent diarrhea. Discomfort in areas of cellulitis on left leg. Nausea but no vomiting. Remain on IV Dilaudid and Zofran therapy. No difficulty with breathing. No chest pain. S/P PRBC 2 units transfusion due to severe anemia with Hgb of 5.8 gm/dL. Physical Exam Vital Signs: Temp Pulse Resp BP Pulse Ox 98.9 F 70 17 100/57 L 100 01/15/17 07:32 01/15/17 07:32 01/15/17 07:32 01/15/17 07:32 01/15/17 07:32 Intake & Output 01/14/17 01/15/17 01/16/17 06:59 06:59 06:59 Intake Total 2626 2460 Output Total 480 1600 Balance 2146 860 Weight 60.2 kg 58.1 kg General appearance: PRESENT: no acute distress, cooperative Head exam: PRESENT: atraumatic, normocephalic Eye exam: PRESENT: conjunctiva pale, EOMI, PERRLA, scleral icterus - slight Mouth exam: PRESENT: moist Respiratory exam: PRESENT: clear to auscultation carolyn Cardiovascular exam: PRESENT: RRR, +S1, +S2 Vascular exam: PRESENT: pallor GI/Abdominal exam: PRESENT: normal bowel sounds, soft, tenderness - nonspecific and diffuse. ABSENT: organolmegaly Rectal exam: PRESENT: deferred Extremities exam: ABSENT: pedal edema Musculoskeletal exam: PRESENT: deformity - related to SSC disease complications Neurological exam: PRESENT: alert, awake, oriented to person, oriented to place , oriented to time, oriented to situation, CN II-XII grossly intact. ABSENT: motor sensory deficit Psychiatric exam: PRESENT: appropriate affect, normal mood. ABSENT: homicidal ideation, suicidal ideation Skin exam: PRESENT: dry, warm, other - stasis pigmentation lower left leg with excuriation martínez. Results Laboratory Results: 01/15/17 08:00 01/15/17 08:00 01/14/17 01/14/17 01/14/17 18:53 18:53 20:05 WBC 6.6 RBC 1.42 L Hgb 5.8 L Hct 16.5 L MCV 116 H MCH 40.9 H MCHC 35.3 RDW 23.8 H Plt Count 268 Seg Neutrophils % 36.1 L Lymphocytes % 47.5 H Monocytes % 10.3 Eosinophils % 5.3 Basophils % 0.8 Absolute Neutrophils 2.4 Absolute Lymphocytes 3.1 Absolute Monocytes 0.7 Absolute Eosinophils 0.4 Absolute Basophils 0.1 Sodium 142.7 Potassium 3.6 Chloride 112 H Carbon Dioxide 21 L Anion Gap 10 BUN 9 Creatinine 0.94 Est GFR ( Amer) > 60 Est GFR (Non-Af Amer) > 60 Glucose 109 Calcium 8.7 Total Bilirubin 3.3 H AST 44 H ALT 40 Alkaline Phosphatase 141 H Total Protein 6.7 Albumin 3.8 Blood Type O POSITIVE Antibody Screen NEGATIVE 01/15/17 01/15/17 08:00 08:00 WBC 6.2 RBC 2.06 L Hgb 7.6 L Hct 22.1 L MCV 107 H D MCH 36.9 H MCHC 34.3 RDW 27.1 H Plt Count 255 Seg Neutrophils % Not Reportable Lymphocytes % Not Reportable Monocytes % Not Reportable Eosinophils % Not Reportable Basophils % Not Reportable Absolute Neutrophils Not Reportable Absolute Lymphocytes Not Reportable Absolute Monocytes Not Reportable Absolute Eosinophils Not Reportable Absolute Basophils Not Reportable Sodium 142.0 Potassium 4.0 Chloride 112 H Carbon Dioxide 20 L Anion Gap 10 BUN 10 Creatinine 0.91 Est GFR ( Amer) > 60 Est GFR (Non-Af Amer) > 60 Glucose 97 Calcium 8.7 Total Bilirubin 3.1 H AST 41 H ALT 36 Alkaline Phosphatase 144 H Total Protein 6.5 Albumin 3.7 Blood Type Antibody Screen Impressions: Chest X-Ray 01/13/17 00:00 IMPRESSION: NO ACUTE RADIOGRAPHIC FINDING IN THE CHEST. KUB X-Ray 01/13/17 00:00 IMPRESSION: Possible hepatomegaly. Assessment & Plan - Diagnosis (1) Cellulitis of left leg Is this a current diagnosis for this admission?: YesPlan: Continue IV Cleocin coverage. Follow up on blood and urine culture findings. Eucerin cream topical application to affected areas for comfort. (2) Anemia, sickle cell with crisis Is this a current diagnosis for this admission?: YesPlan: Follow up on CBC indices and transfuse as indicated. (3) Diarrhea Qualifiers: Diarrhea type: unspecified type Qualified Code(s): R19.7 - Diarrhea , unspecified Is this a current diagnosis for this admission?: YesPlan: Obtain C.difficile toxin titer level. Continue supportive care withIV fluid. (4) Vvhatx-ftzp-tcloirneut C disease with crisis Is this a current diagnosis for this admission?: YesPlan: Maintain on current pain and hydration management. Monitor CBC indices. - Time Time Spent with patient: 25-34 minutes Medications reviewed and adjusted accordingly: Yes Anticipated discharge: Home - Inpatient Certification Based on my medical assessment, after consideration of the patient's comorbidities, presenting symptoms, or acuity I expect that the services needed warrant INPATIENT care.: Yes I certify that my determination is in accordance with my understanding of Medicare's requirements for reasonable and necessary INPATIENT services [42 CFR 412.3e].: Yes Medical Necessity: Need Close Monitoring Due to Risk of Patient Decompensation, Need For IV Fluids, Need for Pain Control, Need for IV Antibiotics, Risk of Complication if Not Cared For in Hospital Post Hospital Care: D/C Business Process Coordinator Documentation - Plan Summary Plan Summary: See covering attending physician orders.
[2017-01-15] MEDS: RIVAROXABAN 10 MG TABLET PO SCH (16:55)
[2017-01-15] MEDS: MINERAL OIL/PETROLATUM,WHITE CREAM 114 GM TP SCH (16:57)
[2017-01-16] MEDS: ONDANSETRON HCL INJ/PF 4 MG/2 ML SDV IV PRN ×3 (03:30→20:26)
[2017-01-16] MEDS: HYDROMORPHONE HCL INJ/PF 2 MG/ML AMPULE IV PRN ×5 (03:31→20:26)
[2017-01-16] MEDS: HYDROXYUREA 500 MG CAPSULE PO SCH ×2 (05:30→17:05)
[2017-01-16] MEDS: GABAPENTIN 300 MG CAPSULE PO SCH ×3 (05:30→21:51)
[2017-01-16] MEDS: OXYCODONE HCL SR 40 MG TABLET PO SCH ×3 (05:30→21:51)
[2017-01-16] MEDS: CLINDAMYCIN 600 MG/D5W RTU 600 MG/50 ML RTUPB IV SCH ×3 (05:30→21:51)
[2017-01-16 06:11] LABS: ABSOLUTE BASOPHILS # (AUTO) 0.1 10^3/uL (0.0-0.2); ABSOLUTE EOSINOPHILS # (AUTO) 0.7 10^3/uL (0.0-0.6); ABSOLUTE LYMPHOCYTES (AUTO) 3.2 10^3/uL (0.5-4.7); ABSOLUTE MONOCYTES (AUTO) 0.5 10^3/uL (0.1-1.4); ABSOLUTE NEUT (AUTO) 2.3 10^3/uL (1.7-8.2); BASOPHILS % (AUTO) 1.4 % (0-2); EOSINOPHILS % (AUTO) 10.2 % (0-6); HEMATOCRIT 20.7 % (36.0-47.0); HGB HCT DIFFERENCE 1.2; LYMPHOCYTES % (AUTO) 47.6 % (13-45); MEAN CORPUSCULAR HEMOGLOBIN 37.4 pg (27.0-33.4); MEAN CORPUSCULAR VOLUME 107 fl (80-97); MONOCYTES % (AUTO) 7.5 % (3-13); RED BLOOD COUNT 1.94 10^6/uL (3.72-5.28); RED CELL DISTRIBUTION WIDTH 26.9 % (11.5-14.0); SEGMENTED NEUTROPHILS % (AUTO) 33.3 % (42-78); WHITE BLOOD COUNT 6.8 10^3/uL (4.0-10.5)
[2017-01-16 06:26] LABS: HEMOGLOBIN 7.3 g/dL (12.0-15.5)
[2017-01-16 06:27] LABS: ANISOCYTOSIS 3+; OVALOCYTES 1+; POIKILOCYTOSIS 1+; POLYCHROMASIA SLIGHT; TARGET CELLS 1+; TEAR DROP CELLS SLIGHT
[2017-01-16 06:28] LABS: PLATELET CLUMPS PRESENT
[2017-01-16] MEDS: DIPHENHYDRAMINE HCL 50 MG/ML VIAL IV PRN ×2 (07:36→15:57)
[2017-01-16] MEDS: NORMAL SALINE 1000 ML 1,000 ML IV PRN ×2 (08:42→20:26)
[2017-01-16] MEDS: FOLIC ACID 1 MG TABLET PO SCH (10:01)
[2017-01-16] MEDS: MINERAL OIL/PETROLATUM,WHITE CREAM 114 GM TP SCH ×2 (10:07→17:05)
--- NOTE | 2017-01-16 12:11 | PDOC PROGRESS REPORT ---
Subjective Progress Note for:: 01/16/17 Subjective:: Less diarrhea frequency and abdominal discomfort. Improved nausea. No vomiting. No chest pain or difficulty with breathing. No fever or chills. Physical Exam Vital Signs: Temp Pulse Resp BP Pulse Ox 98.7 F 77 16 94/59 L 99 01/16/17 08:00 01/16/17 08:00 01/16/17 08:00 01/16/17 08:00 01/16/17 08:00 Intake & Output 01/15/17 01/16/17 01/17/17 06:59 06:59 06:59 Intake Total 2460 3270 Output Total 1600 4300 Balance 860 -1030 Weight 58.1 kg 57.3 kg Physical Exam: General appearance: PRESENT: no acute distress, cooperative Head exam: PRESENT: atraumatic, normocephalic Eye exam: PRESENT: conjunctiva pale, EOMI, PERRLA, scleral icterus - slight Mouth exam: PRESENT: moist Respiratory exam: PRESENT: clear to auscultation carolyn Cardiovascular exam: PRESENT: RRR, +S1, +S2 Vascular exam: PRESENT: pallor GI/Abdominal exam: PRESENT: normal bowel sounds, soft, tenderness - nonspecific and diffuse. ABSENT: organomegaly Rectal exam: PRESENT: deferred Extremities exam: ABSENT: pedal edema Musculoskeletal exam: PRESENT: deformity - related to SSC disease complications Neurological exam: PRESENT: alert, awake, oriented to person, oriented to place , oriented to time, oriented to situation, CN II-XII grossly intact. ABSENT: motor sensory deficit Psychiatric exam: PRESENT: appropriate affect, normal mood. ABSENT: homicidal ideation, suicidal ideation Skin exam: PRESENT: dry, warm, other - stasis pigmentation lower left leg. Results Laboratory Results: 01/16/17 06:00 01/15/17 08:00 01/14/17 01/16/17 20:05 06:00 WBC 6.8 RBC 1.94 L Hgb 7.3 L Hct 20.7 L MCV 107 H MCH 37.4 H MCHC 35.0 RDW 26.9 H Plt Count 253 Seg Neutrophils % 33.3 L Lymphocytes % 47.6 H Monocytes % 7.5 Eosinophils % 10.2 H Basophils % 1.4 Absolute Neutrophils 2.3 Absolute Lymphocytes 3.2 Absolute Monocytes 0.5 Absolute Eosinophils 0.7 H Absolute Basophils 0.1 Blood Type O POSITIVE Antibody Screen NEGATIVE 01/14/17 01:42 Clean Catch Midstream Urine Culture - Final NO GROWTH 2 DAYS Impressions: Chest X-Ray 01/13/17 00:00 IMPRESSION: NO ACUTE RADIOGRAPHIC FINDING IN THE CHEST. KUB X-Ray 01/13/17 00:00 IMPRESSION: Possible hepatomegaly. Assessment & Plan - Diagnosis (1) Cellulitis of left leg Is this a current diagnosis for this admission?: Yes (2) Anemia, sickle cell with crisis Is this a current diagnosis for this admission?: Yes (3) Diarrhea Qualifiers: Diarrhea type: unspecified type Qualified Code(s): R19.7 - Diarrhea , unspecified Is this a current diagnosis for this admission?: Yes (4) Mnqfhy-utbl-xofvoxrcfr C disease with crisis Is this a current diagnosis for this admission?: Yes - Time Time Spent with patient: 25-34 minutes Medications reviewed and adjusted accordingly: Yes Anticipated discharge: Home Within: Other - Inpatient Certification Based on my medical assessment, after consideration of the patient's comorbidities, presenting symptoms, or acuity I expect that the services needed warrant INPATIENT care.: Yes I certify that my determination is in accordance with my understanding of Medicare's requirements for reasonable and necessary INPATIENT services [42 CFR 412.3e].: Yes Medical Necessity: Need Close Monitoring Due to Risk of Patient Decompensation, Need For IV Fluids, Need for Pain Control, Need for IV Antibiotics, Risk of Complication if Not Cared For in Hospital Post Hospital Care: D/C Memory Care Director Documentation - Plan Summary Plan Summary: Continue current medication management. Follow up on blood culture findings. Obtain stool for C. difficile toxin titer in view of associated diarrhea on IV antibiotic therapy.
[2017-01-16] MEDS: RIVAROXABAN 10 MG TABLET PO SCH (17:03)
[2017-01-17] MEDS: HYDROMORPHONE HCL INJ/PF 2 MG/ML AMPULE IV PRN ×6 (00:37→20:57)
[2017-01-17] MEDS: DIPHENHYDRAMINE HCL 50 MG/ML VIAL IV PRN ×3 (00:37→16:54)
[2017-01-17] MEDS: ONDANSETRON HCL INJ/PF 4 MG/2 ML SDV IV PRN ×5 (00:37→20:57)
[2017-01-17] MEDS: GABAPENTIN 300 MG CAPSULE PO SCH ×3 (06:20→22:43)
[2017-01-17] MEDS: CLINDAMYCIN 600 MG/D5W RTU 600 MG/50 ML RTUPB IV SCH ×3 (06:20→22:43)
[2017-01-17] MEDS: HYDROXYUREA 500 MG CAPSULE PO SCH ×2 (06:20→18:21)
[2017-01-17] MEDS: OXYCODONE HCL SR 40 MG TABLET PO SCH ×3 (06:20→22:43)
[2017-01-17] MEDS: NORMAL SALINE 1000 ML 1,000 ML IV PRN ×2 (08:37→19:48)
[2017-01-17] MEDS: FOLIC ACID 1 MG TABLET PO SCH (10:39)
[2017-01-17] MEDS: MINERAL OIL/PETROLATUM,WHITE CREAM 114 GM TP SCH ×2 (10:39→18:21)
[2017-01-17] MEDS: RIVAROXABAN 10 MG TABLET PO SCH (16:08)
--- NOTE | 2017-01-17 20:44 | PDOC PROGRESS REPORT ---
Subjective Progress Note for:: 01/17/17 Subjective:: Patient was seen by the bedside, she was admitted because of sickle cell disease bone pain crisis, severe anemia and cellulitis of the left leg. 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 Physical Exam Vital Signs: Temp Pulse Resp BP Pulse Ox 98.9 F 78 20 91/54 L 100 01/17/17 19:21 01/17/17 19:21 01/17/17 19:21 01/17/17 19:21 01/17/17 19:21 Intake & Output 01/16/17 01/17/17 01/18/17 06:59 06:59 06:59 Intake Total 3270 5876 1761 Output Total 4300 2900 900 Balance -1030 2976 861 Weight 57.3 kg 61.1 kg General appearance: PRESENT: severe distress Eye exam: PRESENT: PERRLA Respiratory exam: PRESENT: clear to auscultation carolyn Cardiovascular exam: PRESENT: +S1, +S2 GI/Abdominal exam: PRESENT: soft Extremities exam: PRESENT: other - There is cellulitis of the left leg, swelling of the left fooT with tenderness on mild palpation of the foot Results Laboratory Results: 01/16/17 06:00 01/15/17 08:00 01/13/17 13:55 Blood Blood Culture - Final Micrococcus Species Impressions: Chest X-Ray 01/13/17 00:00 IMPRESSION: NO ACUTE RADIOGRAPHIC FINDING IN THE CHEST. KUB X-Ray 01/13/17 00:00 IMPRESSION: Possible hepatomegaly. Assessment & Plan - Diagnosis (1) Cellulitis of left leg Is this a current diagnosis for this admission?: Yes (2) Jaundice Is this a current diagnosis for this admission?: Yes (3) Xmyuna-othh-eaurchiozx C disease with crisis Is this a current diagnosis for this admission?: Yes (4) Dyqkvf-ttvd-jxneneeejh C disease with crisis Is this a current diagnosis for this admission?: Yes - Plan Summary Plan Summary: She will continue present treatment with IV fluid,antibiotic and pain control
[2017-01-18] MEDS: HYDROMORPHONE HCL INJ/PF 2 MG/ML AMPULE IV PRN ×6 (01:20→23:02)
[2017-01-18] MEDS: DIPHENHYDRAMINE HCL 50 MG/ML VIAL IV PRN ×3 (01:20→18:36)
[2017-01-18] MEDS: ONDANSETRON HCL INJ/PF 4 MG/2 ML SDV IV PRN ×6 (01:20→23:02)
[2017-01-18] MEDS: GABAPENTIN 300 MG CAPSULE PO SCH ×3 (05:17→22:00)
[2017-01-18] MEDS: HYDROXYUREA 500 MG CAPSULE PO SCH ×2 (05:17→17:34)
[2017-01-18] MEDS: NORMAL SALINE 1000 ML 1,000 ML IV PRN ×2 (06:05→19:38)
[2017-01-18] MEDS: OXYCODONE HCL SR 40 MG TABLET PO SCH ×3 (06:06→22:00)
[2017-01-18] MEDS: CLINDAMYCIN 600 MG/D5W RTU 600 MG/50 ML RTUPB IV SCH ×3 (06:06→22:00)
[2017-01-18] MEDS: MINERAL OIL/PETROLATUM,WHITE CREAM 114 GM TP SCH ×2 (09:20→17:34)
[2017-01-18] MEDS: FOLIC ACID 1 MG TABLET PO SCH (09:20)
[2017-01-18] MEDS: RIVAROXABAN 10 MG TABLET PO SCH (17:34)
[2017-01-18 19:27] LABS: HEMATOCRIT 19.8 % (36.0-47.0); HGB HCT DIFFERENCE 1.2; MEAN CORPUSCULAR HEMOGLOBIN 37.4 pg (27.0-33.4); MEAN CORPUSCULAR HGB CONC 35.3 g/dL (32.0-36.0); MEAN CORPUSCULAR VOLUME 106 fl (80-97); RED BLOOD COUNT 1.87 10^6/uL (3.72-5.28); RED CELL DISTRIBUTION WIDTH 26.2 % (11.5-14.0); WHITE BLOOD COUNT 5.7 10^3/uL (4.0-10.5)
[2017-01-18 19:41] LABS: ALANINE AMINOTRANSFERASE 53 U/L (9-52); ALBUMIN 3.9 g/dL (3.5-5.0); ALKALINE PHOSPHATASE 164 U/L (38-126); ANION GAP 9 (5-19); ASPARTATE AMINO TRANSFERASE 70 U/L (14-36); BILIRUBIN,DIRECT 0.4 mg/dL (0.0-0.4); BILIRUBIN,TOTAL 2.3 mg/dL (0.2-1.3); BLOOD UREA NITROGEN 13 mg/dL (7-20); CALCIUM 8.7 mg/dL (8.4-10.2); CARBON DIOXIDE 23 mmol/L (22-30); CHLORIDE 107 mmol/L (98-107); GLUCOSE 103 mg/dL (75-110); POTASSIUM 4.2 mmol/L (3.6-5.0); SODIUM 139.2 mmol/L (137-145); TOTAL PROTEIN 6.7 g/dL (6.3-8.2)
[2017-01-18 19:42] LABS: BASOPHILS % (MANUAL) 1 % (0-2); EOSINOPHILS % (MANUAL) 8 % (0-6); LYMPHOCYTES % (MANUAL) 51 % (13-45); NUCLEATED RED BLOOD CELLS 4 /100 WBC (0); TOTAL CELLS COUNTED 100
[2017-01-18 19:45] LABS: ANISOCYTOSIS 2+; OVALOCYTES SLIGHT; POIKILOCYTOSIS 2+; TARGET CELLS SLIGHT; TEAR DROP CELLS SLIGHT
--- NOTE | 2017-01-18 21:50 | PDOC PROGRESS REPORT ---
Subjective Progress Note for:: 01/18/17 Subjective:: Patient was seen by the bedside, she continued to complain of pain Physical Exam Vital Signs: Temp Pulse Resp BP Pulse Ox 99.3 F 87 16 103/55 L 99 01/18/17 19:51 01/18/17 19:51 01/18/17 19:51 01/18/17 19:51 01/18/17 19:51 Intake & Output 01/17/17 01/18/17 01/19/17 06:59 06:59 06:59 Intake Total 5876 3841 2196 Output Total 2900 2400 2500 Balance 2976 1441 -304 Weight 61.1 kg 61.8 kg General appearance: PRESENT: mild distress Eye exam: PRESENT: scleral icterus Ear exam: PRESENT: normal external ear exam Neck exam: PRESENT: full ROM Cardiovascular exam: PRESENT: RRR, +S1, +S2 Vascular exam: PRESENT: normal capillary refill GI/Abdominal exam: PRESENT: normal bowel sounds, soft Rectal exam: PRESENT: deferred Neurological exam: PRESENT: alert Skin exam: PRESENT: dry, intact, warm Results Laboratory Results: 01/18/17 19:04 01/18/17 19:04 01/18/17 01/18/17 19:04 19:04 WBC 5.7 RBC 1.87 L Hgb 7.0 L Hct 19.8 L MCV 106 H MCH 37.4 H MCHC 35.3 RDW 26.2 H Plt Count 227 Seg Neutrophils % Not Reportable Lymphocytes % Not Reportable Monocytes % Not Reportable Eosinophils % Not Reportable Basophils % Not Reportable Absolute Neutrophils Not Reportable Absolute Lymphocytes Not Reportable Absolute Monocytes Not Reportable Absolute Eosinophils Not Reportable Absolute Basophils Not Reportable Sodium 139.2 Potassium 4.2 Chloride 107 Carbon Dioxide 23 Anion Gap 9 BUN 13 Creatinine 0.90 Est GFR ( Amer) > 60 Est GFR (Non-Af Amer) > 60 Glucose 103 Calcium 8.7 Total Bilirubin 2.3 H AST 70 H ALT 53 H Alkaline Phosphatase 164 H Total Protein 6.7 Albumin 3.9 01/13/17 13:30 Blood Blood Culture - Final NO GROWTH IN 5 DAYS Impressions: Chest X-Ray 01/13/17 00:00 IMPRESSION: NO ACUTE RADIOGRAPHIC FINDING IN THE CHEST. KUB X-Ray 01/13/17 00:00 IMPRESSION: Possible hepatomegaly. Assessment & Plan - Diagnosis (1) Cellulitis of left leg Is this a current diagnosis for this admission?: Yes (2) Jaundice Is this a current diagnosis for this admission?: Yes (3) Treadi-qbjg-bjaadelmat C disease with crisis Is this a current diagnosis for this admission?: Yes (4) Zpdjyo-haye-sfzaaqpyzz C disease with crisis Is this a current diagnosis for this admission?: Yes - Plan Summary Plan Summary: Continue treatment
[2017-01-19] MEDS: DIPHENHYDRAMINE HCL 50 MG/ML VIAL IV PRN ×3 (03:52→20:42)
[2017-01-19] MEDS: ONDANSETRON HCL INJ/PF 4 MG/2 ML SDV IV PRN ×5 (03:52→20:37)
[2017-01-19] MEDS: HYDROMORPHONE HCL INJ/PF 2 MG/ML AMPULE IV PRN ×5 (03:52→20:37)
[2017-01-19] MEDS: GABAPENTIN 300 MG CAPSULE PO SCH ×3 (06:32→23:22)
[2017-01-19] MEDS: OXYCODONE HCL SR 40 MG TABLET PO SCH ×3 (06:32→23:22)
[2017-01-19] MEDS: CLINDAMYCIN 600 MG/D5W RTU 600 MG/50 ML RTUPB IV SCH ×3 (06:32→23:22)
[2017-01-19] MEDS: NORMAL SALINE 1000 ML 1,000 ML IV PRN ×2 (06:32→20:38)
[2017-01-19] MEDS: HYDROXYUREA 500 MG CAPSULE PO SCH ×2 (06:33→17:30)
[2017-01-19] MEDS: FOLIC ACID 1 MG TABLET PO SCH (09:48)
[2017-01-19] MEDS: MINERAL OIL/PETROLATUM,WHITE CREAM 114 GM TP SCH ×2 (09:48→17:30)
[2017-01-19] MEDS: RIVAROXABAN 10 MG TABLET PO SCH (17:30)
[2017-01-19] MEDS: NORMAL SALINE 1000 ML 1,000 ML with POTASSIUM CHLORIDE 20 MEQ, MAGNESIUM SULFATE 8 MEQ,... IV SCH ×5 (23:23)
[2017-01-20] MEDS: HYDROMORPHONE HCL INJ/PF 2 MG/ML AMPULE IV PRN ×6 (00:36→21:15)
[2017-01-20] MEDS: ONDANSETRON HCL INJ/PF 4 MG/2 ML SDV IV PRN ×6 (00:36→21:15)
[2017-01-20] MEDS: DIPHENHYDRAMINE HCL 50 MG/ML VIAL IV PRN ×3 (04:31→21:16)
[2017-01-20] MEDS: CLINDAMYCIN 600 MG/D5W RTU 600 MG/50 ML RTUPB IV SCH (05:34)
[2017-01-20] MEDS: GABAPENTIN 300 MG CAPSULE PO SCH ×3 (05:35→23:52)
[2017-01-20] MEDS: HYDROXYUREA 500 MG CAPSULE PO SCH ×2 (05:35→17:08)
[2017-01-20] MEDS: OXYCODONE HCL SR 40 MG TABLET PO SCH ×3 (05:35→23:52)
[2017-01-20] MEDS: MINERAL OIL/PETROLATUM,WHITE CREAM 114 GM TP SCH ×2 (10:56→17:08)
[2017-01-20] MEDS: FOLIC ACID 1 MG TABLET PO SCH (10:56)
[2017-01-20] MEDS ORDERED: NORMAL SALINE 10 ML SDV (AFTER EACH USE) IV PRN (16:41)
[2017-01-20] MEDS: RIVAROXABAN 10 MG TABLET PO SCH (17:08)
--- NOTE | 2017-01-20 20:50 | PDOC PROGRESS REPORT ---
Subjective Progress Note for:: 01/19/17 Subjective:: Patient was seen by the bedside, she continued to complain of pain Physical Exam Vital Signs: Temp Pulse Resp BP Pulse Ox 98.5 F 69 17 101/58 L 98 01/20/17 19:47 01/20/17 19:47 01/20/17 19:47 01/20/17 19:47 01/20/17 19:47 Intake & Output 01/19/17 01/20/17 01/21/17 06:59 06:59 06:59 Intake Total 3931 3846 2725 Output Total 3720 1580 5400 Balance 211 2266 -2675 General appearance: PRESENT: no acute distress Eye exam: PRESENT: PERRLA Cardiovascular exam: PRESENT: +S1, +S2 GI/Abdominal exam: PRESENT: soft Neurological exam: PRESENT: alert Results Laboratory Results: 01/18/17 19:04 01/18/17 19:04 01/13/17 01/20/17 13:30 09:15 Free T4 (Dialysis) 0.91 Stool for White Cells NO WBCs SEEN Impressions: Chest X-Ray 01/13/17 00:00 IMPRESSION: NO ACUTE RADIOGRAPHIC FINDING IN THE CHEST. KUB X-Ray 01/13/17 00:00 IMPRESSION: Possible hepatomegaly. Assessment & Plan - Diagnosis (1) Cellulitis of left leg Is this a current diagnosis for this admission?: Yes (2) Jaundice Is this a current diagnosis for this admission?: Yes (3) Ljcnsr-jzyr-aiyiusvnhq C disease with crisis Is this a current diagnosis for this admission?: Yes (4) Tuziea-dvfk-qcfnpgpwwr C disease with crisis Is this a current diagnosis for this admission?: Yes
--- NOTE | 2017-01-20 20:51 | PDOC PROGRESS REPORT ---
Subjective Progress Note for:: 01/20/17 Subjective:: She said she does not feel well today, She had episode of vomiting earlier today Physical Exam Vital Signs: Temp Pulse Resp BP Pulse Ox 98.5 F 69 17 101/58 L 98 01/20/17 19:47 01/20/17 19:47 01/20/17 19:47 01/20/17 19:47 01/20/17 19:47 Intake & Output 01/19/17 01/20/17 01/21/17 06:59 06:59 06:59 Intake Total 3931 3846 2725 Output Total 3720 1580 5400 Balance 211 9426 -5625 Eye exam: PRESENT: PERRLA, scleral icterus Respiratory exam: PRESENT: clear to auscultation carolyn Cardiovascular exam: PRESENT: +S1, +S2 GI/Abdominal exam: PRESENT: soft Neurological exam: PRESENT: alert Results Laboratory Results: 01/18/17 19:04 01/18/17 19:04 01/13/17 01/20/17 13:30 09:15 Free T4 (Dialysis) 0.91 Stool for White Cells NO WBCs SEEN Impressions: Chest X-Ray 01/13/17 00:00 IMPRESSION: NO ACUTE RADIOGRAPHIC FINDING IN THE CHEST. KUB X-Ray 01/13/17 00:00 IMPRESSION: Possible hepatomegaly. Assessment & Plan - Diagnosis (1) Cellulitis of left leg Is this a current diagnosis for this admission?: Yes (2) Jaundice Is this a current diagnosis for this admission?: Yes (3) Hwaqvc-jgmu-mxsojcxtli C disease with crisis Is this a current diagnosis for this admission?: Yes (4) Hvgfkq-zcbr-hqoyrhbfbe C disease with crisis Is this a current diagnosis for this admission?: Yes
[2017-01-20] MEDS: NORMAL SALINE 1000 ML 1,000 ML with POTASSIUM CHLORIDE 20 MEQ, MAGNESIUM SULFATE 8 MEQ,... IV SCH ×5 (21:15)
[2017-01-20] MEDS ORDERED: NORMAL SALINE 10 ML SDV (SCHEDULED) IV SCH (22:00)
[2017-01-21] MEDS: ONDANSETRON HCL INJ/PF 4 MG/2 ML SDV IV PRN ×6 (01:15→21:35)
[2017-01-21] MEDS: HYDROMORPHONE HCL INJ/PF 2 MG/ML AMPULE IV PRN ×6 (01:15→21:35)
[2017-01-21] MEDS: OXYCODONE HCL IR 5 MG TABLET PO PRN (03:10)
[2017-01-21] MEDS: OXYCODONE HCL SR 40 MG TABLET PO SCH ×2 (05:13→13:25)
[2017-01-21] MEDS: HYDROXYUREA 500 MG CAPSULE PO SCH ×2 (05:13→17:33)
[2017-01-21] MEDS: GABAPENTIN 300 MG CAPSULE PO SCH ×3 (05:13→21:35)
[2017-01-21] MEDS: DIPHENHYDRAMINE HCL 50 MG/ML VIAL IV PRN ×3 (05:14→21:35)
[2017-01-21] MEDS: FOLIC ACID 1 MG TABLET PO SCH (09:21)
[2017-01-21] MEDS: MINERAL OIL/PETROLATUM,WHITE CREAM 114 GM TP SCH ×2 (09:25→17:34)
[2017-01-21] MEDS ORDERED: EPOETIN ALFA INJ 40000 UNIT/1 ML (RENAL) SUBCUT SCH (10:00)
[2017-01-21] MEDS: RIVAROXABAN 10 MG TABLET PO SCH (16:27)
[2017-01-21] MEDS: NORMAL SALINE 1000 ML 1,000 ML IV PRN (16:27)
[2017-01-21] MEDS: NORMAL SALINE 1000 ML 1,000 ML with POTASSIUM CHLORIDE 20 MEQ, MAGNESIUM SULFATE 8 MEQ,... IV SCH ×5 (21:35)
--- NOTE | 2017-01-21 22:13 | PDOC PROGRESS REPORT ---
Subjective Progress Note for:: 01/21/17 Subjective:: She was seen by the bedside, she said that pains, she said whenever she walks her leg will swell Physical Exam Vital Signs: Temp Pulse Resp BP Pulse Ox 99.2 F 84 18 103/66 99 01/21/17 20:00 01/21/17 20:00 01/21/17 20:00 01/21/17 20:00 01/21/17 20:00 Intake & Output 01/20/17 01/21/17 01/22/17 06:59 06:59 06:59 Intake Total 3846 4350 2240 Output Total 1580 6800 Balance 2266 -2450 2240 General appearance: PRESENT: no acute distress Eye exam: PRESENT: PERRLA Respiratory exam: PRESENT: clear to auscultation carolyn Cardiovascular exam: PRESENT: +S1, +S2 GI/Abdominal exam: PRESENT: soft Neurological exam: PRESENT: alert Results Laboratory Results: 01/18/17 19:04 01/18/17 19:04 Impressions: Chest X-Ray 01/13/17 00:00 IMPRESSION: NO ACUTE RADIOGRAPHIC FINDING IN THE CHEST. KUB X-Ray 01/13/17 00:00 IMPRESSION: Possible hepatomegaly. Assessment & Plan - Diagnosis (1) Cellulitis of left leg Is this a current diagnosis for this admission?: Yes (2) Jaundice Is this a current diagnosis for this admission?: Yes (3) Gouxoq-wugy-iajmknbkhh C disease with crisis Is this a current diagnosis for this admission?: Yes (4) Plksay-dtkg-wciacvymhc C disease with crisis Is this a current diagnosis for this admission?: Yes
[2017-01-22 00:03] LABS: HEMATOCRIT 18.3 % (36.0-47.0); HGB HCT DIFFERENCE 0.9; MEAN CORPUSCULAR HEMOGLOBIN 37.4 pg (27.0-33.4); MEAN CORPUSCULAR HGB CONC 34.8 g/dL (32.0-36.0); MEAN CORPUSCULAR VOLUME 108 fl (80-97); RED CELL DISTRIBUTION WIDTH 25.7 % (11.5-14.0); WHITE BLOOD COUNT 5.6 10^3/uL (4.0-10.5)
[2017-01-22 00:06] LABS: ALANINE AMINOTRANSFERASE 69 U/L (9-52); ALBUMIN 3.7 g/dL (3.5-5.0); ALKALINE PHOSPHATASE 151 U/L (38-126); ANION GAP 9 (5-19); ASPARTATE AMINO TRANSFERASE 77 U/L (14-36); BILIRUBIN,DIRECT 0.3 mg/dL (0.0-0.4); BILIRUBIN,TOTAL 2.1 mg/dL (0.2-1.3); BLOOD UREA NITROGEN 12 mg/dL (7-20); CALCIUM 8.5 mg/dL (8.4-10.2); CARBON DIOXIDE 25 mmol/L (22-30); CHLORIDE 104 mmol/L (98-107); CREATININE RESULT 0.74 mg/dL (0.52-1.25); GLUCOSE 143 mg/dL (75-110); POTASSIUM 3.9 mmol/L (3.6-5.0); SODIUM 137.7 mmol/L (137-145); TOTAL PROTEIN 6.6 g/dL (6.3-8.2)
[2017-01-22 00:26] LABS: BAND NEUTROPHILS % (MANUAL) 1 % (3-5); BASOPHILS % (MANUAL) 0 % (0-2); EOSINOPHILS % (MANUAL) 1 % (0-6); LYMPHOCYTES % (MANUAL) 50 % (13-45); NUCLEATED RED BLOOD CELLS 1 /100 WBC (0); TOTAL CELLS COUNTED 100
[2017-01-22 00:30] LABS: ANISOCYTOSIS 3+; HYPOCHROMASIA SLIGHT; POIKILOCYTOSIS SLIGHT; POLYCHROMASIA 1+; TOXIC GRANULATION SLIGHT
[2017-01-22 00:31] LABS: OVALOCYTES SLIGHT; SCHISTOCYTES SLIGHT; TARGET CELLS SLIGHT; TEAR DROP CELLS SLIGHT
[2017-01-22 00:34] LABS: HEMOGLOBIN 6.4 g/dL (12.0-15.5)
[2017-01-22] MEDS: ONDANSETRON HCL INJ/PF 4 MG/2 ML SDV IV PRN ×6 (01:27→22:54)
[2017-01-22] MEDS: HYDROMORPHONE HCL INJ/PF 2 MG/ML AMPULE IV PRN ×6 (01:27→22:54)
[2017-01-22] MEDS: DIPHENHYDRAMINE HCL 50 MG/ML VIAL IV PRN ×3 (05:29→22:54)
[2017-01-22] MEDS: GABAPENTIN 300 MG CAPSULE PO SCH ×3 (05:29→22:54)
[2017-01-22] MEDS: HYDROXYUREA 500 MG CAPSULE PO SCH ×2 (05:29→17:22)
[2017-01-22] MEDS: OXYCODONE HCL SR 40 MG TABLET PO SCH ×3 (05:50→22:54)
[2017-01-22 06:16] LABS: ALANINE AMINOTRANSFERASE 66 U/L (9-52); ALBUMIN 3.7 g/dL (3.5-5.0); ALKALINE PHOSPHATASE 157 U/L (38-126); ANION GAP 7 (5-19); ASPARTATE AMINO TRANSFERASE 79 U/L (14-36); BILIRUBIN,DIRECT 0.4 mg/dL (0.0-0.4); BLOOD UREA NITROGEN 11 mg/dL (7-20); CALCIUM 8.8 mg/dL (8.4-10.2); CARBON DIOXIDE 25 mmol/L (22-30); CHLORIDE 106 mmol/L (98-107); CREATININE RESULT 0.75 mg/dL (0.52-1.25); GLUCOSE 102 mg/dL (75-110); POTASSIUM 4.5 mmol/L (3.6-5.0); SODIUM 137.9 mmol/L (137-145); TOTAL PROTEIN 6.7 g/dL (6.3-8.2)
[2017-01-22 06:44] LABS: HEMATOCRIT 18.1 % (36.0-47.0); HGB HCT DIFFERENCE 1.1; MEAN CORPUSCULAR HEMOGLOBIN 37.8 pg (27.0-33.4); MEAN CORPUSCULAR HGB CONC 35.2 g/dL (32.0-36.0); MEAN CORPUSCULAR VOLUME 107 fl (80-97); RED BLOOD COUNT 1.68 10^6/uL (3.72-5.28); RED CELL DISTRIBUTION WIDTH 25.5 % (11.5-14.0); WHITE BLOOD COUNT 5.1 10^3/uL (4.0-10.5)
[2017-01-22 06:52] LABS: BASOPHILS % (MANUAL) 0 % (0-2); EOSINOPHILS % (MANUAL) 6 % (0-6); LYMPHOCYTES % (MANUAL) 55 % (13-45); NUCLEATED RED BLOOD CELLS 4 /100 WBC (0); TOTAL CELLS COUNTED 100
[2017-01-22 06:53] LABS: ANISOCYTOSIS 3+; BURR CELLS SLIGHT; OVALOCYTES SLIGHT; POIKILOCYTOSIS 1+; POLYCHROMASIA SLIGHT; TOXIC GRANULATION SLIGHT
[2017-01-22 06:54] LABS: TARGET CELLS SLIGHT
[2017-01-22 06:56] LABS: HEMOGLOBIN 6.4 g/dL (12.0-15.5)
[2017-01-22] MEDS: FOLIC ACID 1 MG TABLET PO SCH (09:47)
[2017-01-22] MEDS: MINERAL OIL/PETROLATUM,WHITE CREAM 114 GM TP SCH ×2 (09:48→17:22)
[2017-01-22] MEDS: NORMAL SALINE 1000 ML 1,000 ML IV PRN (09:49)
[2017-01-22] MEDS: RIVAROXABAN 10 MG TABLET PO SCH (16:14)
--- NOTE | 2017-01-22 16:58 | PDOC PROGRESS REPORT ---
Subjective Progress Note for:: 01/22/17 Subjective:: She has sickle cell anemia admitted for sickle cell crisis Physical Exam Vital Signs: Temp Pulse Resp BP Pulse Ox 99.2 F 69 16 101/57 L 98 01/22/17 16:00 01/22/17 16:00 01/22/17 16:00 01/22/17 16:00 01/22/17 04:38 Intake & Output 01/21/17 01/22/17 01/23/17 06:59 06:59 06:59 Intake Total 4350 4085 540 Output Total 6800 2400 Balance -2450 1685 540 General appearance: PRESENT: no acute distress Eye exam: PRESENT: PERRLA Respiratory exam: PRESENT: clear to auscultation carolyn Cardiovascular exam: PRESENT: +S1, +S2 GI/Abdominal exam: PRESENT: soft Results Laboratory Results: 01/22/17 05:40 01/22/17 05:40 01/21/17 01/21/17 01/22/17 23:30 23:30 05:40 WBC 5.6 5.1 RBC 1.70 L 1.68 L Hgb 6.4 L 6.4 L Hct 18.3 L 18.1 L MCV 108 H 107 H MCH 37.4 H 37.8 H MCHC 34.8 35.2 RDW 25.7 H 25.5 H Plt Count 191 197 Seg Neutrophils % Not Reportable Not Reportable Lymphocytes % Not Reportable Not Reportable Monocytes % Not Reportable Not Reportable Eosinophils % Not Reportable Not Reportable Basophils % Not Reportable Not Reportable Absolute Neutrophils Not Reportable Not Reportable Absolute Lymphocytes Not Reportable Not Reportable Absolute Monocytes Not Reportable Not Reportable Absolute Eosinophils Not Reportable Not Reportable Absolute Basophils Not Reportable Not Reportable Sodium 137.7 Potassium 3.9 Chloride 104 Carbon Dioxide 25 Anion Gap 9 BUN 12 Creatinine 0.74 Est GFR ( Amer) > 60 Est GFR (Non-Af Amer) > 60 Glucose 143 H Calcium 8.5 Total Bilirubin 2.1 H AST 77 H ALT 69 H Alkaline Phosphatase 151 H Total Protein 6.6 Albumin 3.7 01/22/17 05:40 WBC RBC Hgb Hct MCV MCH MCHC RDW Plt Count Seg Neutrophils % Lymphocytes % Monocytes % Eosinophils % Basophils % Absolute Neutrophils Absolute Lymphocytes Absolute Monocytes Absolute Eosinophils Absolute Basophils Sodium 137.9 Potassium 4.5 Chloride 106 Carbon Dioxide 25 Anion Gap 7 BUN 11 Creatinine 0.75 Est GFR ( Amer) > 60 Est GFR (Non-Af Amer) > 60 Glucose 102 Calcium 8.8 Total Bilirubin 2.0 H AST 79 H ALT 66 H Alkaline Phosphatase 157 H Total Protein 6.7 Albumin 3.7 Impressions: Chest X-Ray 01/13/17 00:00 IMPRESSION: NO ACUTE RADIOGRAPHIC FINDING IN THE CHEST. KUB X-Ray 01/13/17 00:00 IMPRESSION: Possible hepatomegaly. Assessment & Plan - Diagnosis (1) Cellulitis of left leg Is this a current diagnosis for this admission?: Yes (2) Jaundice Is this a current diagnosis for this admission?: Yes (3) Rjrgrt-hvut-tjvgmfskux C disease with crisis Is this a current diagnosis for this admission?: Yes (4) Zupwme-ukcw-lwcbtvpwob C disease with crisis Is this a current diagnosis for this admission?: Yes
[2017-01-22] MEDS: NORMAL SALINE 1000 ML 1,000 ML with POTASSIUM CHLORIDE 20 MEQ, MAGNESIUM SULFATE 8 MEQ,... IV SCH ×5 (21:39)
[2017-01-23] MEDS: HYDROMORPHONE HCL INJ/PF 2 MG/ML AMPULE IV PRN ×6 (02:54→22:33)
[2017-01-23] MEDS: ONDANSETRON HCL INJ/PF 4 MG/2 ML SDV IV PRN ×6 (02:54→22:33)
[2017-01-23] MEDS: GABAPENTIN 300 MG CAPSULE PO SCH ×3 (06:34→22:04)
[2017-01-23] MEDS: DIPHENHYDRAMINE HCL 50 MG/ML VIAL IV PRN ×3 (06:35→22:33)
[2017-01-23] MEDS: HYDROXYUREA 500 MG CAPSULE PO SCH ×2 (06:35→17:20)
[2017-01-23] MEDS: OXYCODONE HCL SR 40 MG TABLET PO SCH ×3 (06:35→22:03)
[2017-01-23] MEDS: NORMAL SALINE 1000 ML 1,000 ML IV PRN ×2 (08:09→18:38)
[2017-01-23] MEDS: MINERAL OIL/PETROLATUM,WHITE CREAM 114 GM TP SCH ×2 (10:38→17:22)
[2017-01-23] MEDS: FOLIC ACID 1 MG TABLET PO SCH (10:38)
[2017-01-23 12:34] LABS: HGB HCT DIFFERENCE 0.4; MEAN CORPUSCULAR HGB CONC 34.1 g/dL (32.0-36.0); MEAN CORPUSCULAR VOLUME 109 fl (80-97); RED BLOOD COUNT 1.84 10^6/uL (3.72-5.28); RED CELL DISTRIBUTION WIDTH 26.3 % (11.5-14.0); WHITE BLOOD COUNT 6.4 10^3/uL (4.0-10.5)
[2017-01-23 12:49] LABS: HEMOGLOBIN 6.8 g/dL (12.0-15.5)
[2017-01-23 12:59] LABS: BASOPHILS % (MANUAL) 2 % (0-2); EOSINOPHILS % (MANUAL) 3 % (0-6); LYMPHOCYTES % (MANUAL) 53 % (13-45); NUCLEATED RED BLOOD CELLS 5 /100 WBC (0); TOTAL CELLS COUNTED 100
[2017-01-23 13:00] LABS: HOWELL-JOLLY BODIES PRESENT; TOXIC GRANULATION 1+
[2017-01-23 13:01] LABS: ANISOCYTOSIS 3+; OVALOCYTES 1+; POIKILOCYTOSIS 1+; POLYCHROMASIA 2+; SCHISTOCYTES SLIGHT
[2017-01-23 13:02] LABS: TARGET CELLS 1+
--- NOTE | 2017-01-23 16:42 | PDOC PROGRESS REPORT ---
Subjective Progress Note for:: 01/23/17 Subjective:: Patient was seen by the bedside ,still anemic Physical Exam Vital Signs: Temp Pulse Resp BP Pulse Ox 98.9 F 83 15 108/70 98 01/23/17 15:29 01/23/17 15:29 01/23/17 15:29 01/23/17 15:29 01/23/17 15:29 Intake & Output 01/22/17 01/23/17 01/24/17 06:59 06:59 06:59 Intake Total 4085 4080 480 Output Total 2400 1200 1300 Balance 1685 2880 -820 General appearance: PRESENT: mild distress Eye exam: PRESENT: scleral icterus Respiratory exam: PRESENT: clear to auscultation carolyn Cardiovascular exam: PRESENT: +S1, +S2 Results Laboratory Results: 01/23/17 12:10 01/22/17 05:40 01/23/17 12:10 WBC 6.4 RBC 1.84 L Hgb 6.8 L Hct 20.0 L MCV 109 H MCH 37.0 H MCHC 34.1 RDW 26.3 H Plt Count 222 Seg Neutrophils % Not Reportable Lymphocytes % Not Reportable Monocytes % Not Reportable Eosinophils % Not Reportable Basophils % Not Reportable Absolute Neutrophils Not Reportable Absolute Lymphocytes Not Reportable Absolute Monocytes Not Reportable Absolute Eosinophils Not Reportable Absolute Basophils Not Reportable Impressions: Chest X-Ray 01/13/17 00:00 IMPRESSION: NO ACUTE RADIOGRAPHIC FINDING IN THE CHEST. KUB X-Ray 01/13/17 00:00 IMPRESSION: Possible hepatomegaly. Assessment & Plan - Diagnosis (1) Cellulitis of left leg Is this a current diagnosis for this admission?: Yes (2) Jaundice Is this a current diagnosis for this admission?: Yes (3) Aasgkp-bect-lirgwsuwpx C disease with crisis Is this a current diagnosis for this admission?: Yes (4) Kijodn-nsuq-ixbssbdgmw C disease with crisis Is this a current diagnosis for this admission?: Yes
[2017-01-23] MEDS: RIVAROXABAN 10 MG TABLET PO SCH (17:20)
[2017-01-23] MEDS: NORMAL SALINE 1000 ML 1,000 ML with POTASSIUM CHLORIDE 20 MEQ, MAGNESIUM SULFATE 8 MEQ,... IV SCH ×5 (22:03)
[2017-01-24] MEDS: HYDROMORPHONE HCL INJ/PF 2 MG/ML AMPULE IV PRN ×6 (02:25→23:43)
[2017-01-24] MEDS: ONDANSETRON HCL INJ/PF 4 MG/2 ML SDV IV PRN ×6 (02:25→23:43)
[2017-01-24] MEDS: GABAPENTIN 300 MG CAPSULE PO SCH ×3 (06:01→21:59)
[2017-01-24] MEDS: OXYCODONE HCL SR 40 MG TABLET PO SCH ×3 (06:01→22:00)
[2017-01-24] MEDS: HYDROXYUREA 500 MG CAPSULE PO SCH ×2 (06:01→17:27)
[2017-01-24] MEDS: NORMAL SALINE 1000 ML 1,000 ML IV PRN ×2 (06:02→15:27)
[2017-01-24] MEDS: DIPHENHYDRAMINE HCL 50 MG/ML VIAL IV PRN ×3 (06:38→23:43)
[2017-01-24] MEDS: MINERAL OIL/PETROLATUM,WHITE CREAM 114 GM TP SCH ×2 (09:39→17:28)
[2017-01-24] MEDS: FOLIC ACID 1 MG TABLET PO SCH (09:46)
[2017-01-24] MEDS ORDERED: NORMAL SALINE 250 ML IV PRN ×2 (16:28)
[2017-01-24 17:20] LABS: HEMATOCRIT 19.9 % (36.0-47.0); HGB HCT DIFFERENCE 0.5; MEAN CORPUSCULAR HEMOGLOBIN 37.2 pg (27.0-33.4); MEAN CORPUSCULAR VOLUME 109 fl (80-97); RED BLOOD COUNT 1.82 10^6/uL (3.72-5.28); RED CELL DISTRIBUTION WIDTH 27.1 % (11.5-14.0); WHITE BLOOD COUNT 6.2 10^3/uL (4.0-10.5)
[2017-01-24] MEDS: RIVAROXABAN 10 MG TABLET PO SCH (17:27)
[2017-01-24 17:40] LABS: HEMOGLOBIN 6.8 g/dL (12.0-15.5)
--- NOTE | 2017-01-24 19:53 | PDOC PROGRESS REPORT ---
Subjective Progress Note for:: 01/24/17 Subjective:: She has anemia requiring blood transfusion Physical Exam Vital Signs: Temp Pulse Resp BP Pulse Ox 98.8 F 75 16 98/62 L 100 01/24/17 15:03 01/24/17 15:03 01/24/17 15:03 01/24/17 15:03 01/24/17 15:03 Intake & Output 01/23/17 01/24/17 01/25/17 06:59 06:59 06:59 Intake Total 4080 4114 1850 Output Total 1200 3650 900 Balance 2880 464 950 Weight 66.8 kg General appearance: PRESENT: no acute distress Eye exam: PRESENT: PERRLA Respiratory exam: PRESENT: clear to auscultation carolyn Cardiovascular exam: PRESENT: +S1, +S2 Results Laboratory Results: 01/24/17 16:35 01/22/17 05:40 01/24/17 01/24/17 16:35 16:35 WBC 6.2 RBC 1.82 L Hgb 6.8 L Hct 19.9 L MCV 109 H MCH 37.2 H MCHC 34.0 RDW 27.1 H Plt Count 225 Blood Type O POSITIVE Antibody Screen NEGATIVE Impressions: Chest X-Ray 01/13/17 00:00 IMPRESSION: NO ACUTE RADIOGRAPHIC FINDING IN THE CHEST. KUB X-Ray 01/13/17 00:00 IMPRESSION: Possible hepatomegaly. Assessment & Plan - Diagnosis (1) Cellulitis of left leg Is this a current diagnosis for this admission?: Yes (2) Jaundice Is this a current diagnosis for this admission?: Yes (3) Pbnfzr-tvdr-ucskclsdjp C disease with crisis Is this a current diagnosis for this admission?: Yes (4) Ewzkhx-qokt-eboguzwfof C disease with crisis Is this a current diagnosis for this admission?: Yes
[2017-01-25] MEDS: HYDROMORPHONE HCL INJ/PF 2 MG/ML AMPULE IV PRN ×5 (03:48→23:40)
[2017-01-25] MEDS: ONDANSETRON HCL INJ/PF 4 MG/2 ML SDV IV PRN ×4 (03:49→23:40)
[2017-01-25] MEDS: NORMAL SALINE 1000 ML 1,000 ML with POTASSIUM CHLORIDE 20 MEQ, MAGNESIUM SULFATE 8 MEQ,... IV SCH ×10 (05:24→22:33)
[2017-01-25] MEDS: HYDROXYUREA 500 MG CAPSULE PO SCH ×2 (06:06→17:20)
[2017-01-25] MEDS: GABAPENTIN 300 MG CAPSULE PO SCH ×3 (06:06→22:33)
[2017-01-25] MEDS: OXYCODONE HCL SR 40 MG TABLET PO SCH ×3 (06:06→22:32)
[2017-01-25] MEDS: DIPHENHYDRAMINE HCL 50 MG/ML VIAL IV PRN ×2 (07:53→18:58)
[2017-01-25 08:01] LABS: HEMATOCRIT 23.3 % (36.0-47.0); HEMOGLOBIN 8.2 g/dL (12.0-15.5); HGB HCT DIFFERENCE 1.3; MEAN CORPUSCULAR HEMOGLOBIN 36.7 pg (27.0-33.4); MEAN CORPUSCULAR HGB CONC 35.4 g/dL (32.0-36.0); RED BLOOD COUNT 2.25 10^6/uL (3.72-5.28); RED CELL DISTRIBUTION WIDTH 24.4 % (11.5-14.0); WHITE BLOOD COUNT 5.7 10^3/uL (4.0-10.5)
[2017-01-25 08:32] LABS: MEAN CORPUSCULAR VOLUME 104 fl (80-97)
[2017-01-25 08:34] LABS: ANISOCYTOSIS 3+; BASOPHILS % (MANUAL) 0 % (0-2); EOSINOPHILS % (MANUAL) 3 % (0-6); LYMPHOCYTES % (MANUAL) 50 % (13-45); NUCLEATED RED BLOOD CELLS 18 /100 WBC (0); OVALOCYTES 1+; POIKILOCYTOSIS 1+; POLYCHROMASIA SLIGHT; TARGET CELLS SLIGHT; TEAR DROP CELLS SLIGHT; TOTAL CELLS COUNTED 100
[2017-01-25] MEDS: FOLIC ACID 1 MG TABLET PO SCH (10:17)
[2017-01-25] MEDS: MINERAL OIL/PETROLATUM,WHITE CREAM 114 GM TP SCH ×2 (10:17→17:20)
[2017-01-25] MEDS: NORMAL SALINE 1000 ML 1,000 ML IV PRN (16:51)
[2017-01-25] MEDS: RIVAROXABAN 10 MG TABLET PO SCH (17:20)
--- NOTE | 2017-01-25 21:48 | PDOC PROGRESS REPORT ---
Subjective Progress Note for:: 01/25/17 Subjective:: She is alert, she was transfused with packed red blood cells, she will be discharged home in a.m. Physical Exam Vital Signs: Temp Pulse Resp BP Pulse Ox 98.9 F 74 19 134/63 H 98 01/25/17 19:19 01/25/17 19:19 01/25/17 19:19 01/25/17 19:19 01/25/17 19:19 Intake & Output 01/24/17 01/25/17 01/26/17 06:59 06:59 06:59 Intake Total 4114 3540 1960 Output Total 3650 2500 1800 Balance 464 1040 160 Weight 66.8 kg 68.1 kg General appearance: PRESENT: no acute distress Eye exam: PRESENT: PERRLA Respiratory exam: PRESENT: clear to auscultation carolyn Cardiovascular exam: PRESENT: +S1, +S2 GI/Abdominal exam: PRESENT: soft Results Laboratory Results: 01/25/17 06:52 01/22/17 05:40 01/24/17 01/25/17 16:35 06:52 WBC 5.7 RBC 2.25 L Hgb 8.2 L Hct 23.3 L MCV 104 H D MCH 36.7 H MCHC 35.4 RDW 24.4 H Plt Count 194 Seg Neutrophils % Not Reportable Lymphocytes % Not Reportable Monocytes % Not Reportable Eosinophils % Not Reportable Basophils % Not Reportable Absolute Neutrophils Not Reportable Absolute Lymphocytes Not Reportable Absolute Monocytes Not Reportable Absolute Eosinophils Not Reportable Absolute Basophils Not Reportable Blood Type O POSITIVE Antibody Screen NEGATIVE Impressions: Chest X-Ray 01/13/17 00:00 IMPRESSION: NO ACUTE RADIOGRAPHIC FINDING IN THE CHEST. KUB X-Ray 01/13/17 00:00 IMPRESSION: Possible hepatomegaly. Assessment & Plan - Diagnosis (1) Cellulitis of left leg Is this a current diagnosis for this admission?: Yes (2) Jaundice Is this a current diagnosis for this admission?: Yes (3) Xofehb-wnnn-fzzfgcyuec C disease with crisis Is this a current diagnosis for this admission?: Yes (4) Sfaagr-bwuo-mnbmlmtvup C disease with crisis Is this a current diagnosis for this admission?: Yes
[2017-01-26] MEDS: ONDANSETRON HCL INJ/PF 4 MG/2 ML SDV IV PRN ×5 (03:50→19:51)
[2017-01-26] MEDS: DIPHENHYDRAMINE HCL 50 MG/ML VIAL IV PRN ×3 (03:50→19:51)
[2017-01-26] MEDS: HYDROMORPHONE HCL INJ/PF 2 MG/ML AMPULE IV PRN ×5 (03:50→19:52)
[2017-01-26] MEDS: HYDROXYUREA 500 MG CAPSULE PO SCH ×2 (06:18→17:43)
[2017-01-26] MEDS: OXYCODONE HCL SR 40 MG TABLET PO SCH ×2 (06:18→15:10)
[2017-01-26] MEDS: GABAPENTIN 300 MG CAPSULE PO SCH ×2 (06:18→15:11)
[2017-01-26] MEDS: MINERAL OIL/PETROLATUM,WHITE CREAM 114 GM TP SCH ×2 (09:41→17:43)
[2017-01-26] MEDS: FOLIC ACID 1 MG TABLET PO SCH (09:41)
[2017-01-26] MEDS: NORMAL SALINE 1000 ML 1,000 ML IV PRN (15:11)
--- NOTE | 2017-01-26 15:45 | PDOC DISCHARGE SUMMARY ---
General - Admit/Disc Date/PCP Admission Date/Primary Care Provider: 01/13/17 12:17 Discharge Date: 01/26/17 - Discharge Diagnosis (1) Cellulitis of left leg Is this a current diagnosis for this admission?: Yes (2) Jaundice Is this a current diagnosis for this admission?: Yes (3) Qqjeff-gvxg-fmtbdensyn C disease with crisis Is this a current diagnosis for this admission?: Yes (4) [place]-ugmi-wnnamnvctp C disease with crisis Is this a current diagnosis for this admission?: Yes - Additional Information Discharge Diet: As Tolerated Discharge Activity: Activity As Tolerated Home Medications: Epoetin Federico [Procrit] 60,000 unit IJ FR@1000 11/03/16 Folic Acid [Folvite 1 mg Tablet] 1 mg PO DAILY 11/03/16 Hydroxyurea [Hydrea 500 mg Capsule] 500 mg PO Q12 11/03/16 Ibuprofen [Motrin 800 mg Tablet] 800 mg PO BID 11/03/16 Multivitamin [Daily Multiple Vitamin] 1 each PO DAILY 11/03/16 Oxycodone HCl [Roxicodone] 30 mg PO Q6HP PRN 11/03/16 Rivaroxaban [Xarelto] 20 mg PO DAILY 11/03/16 Gabapentin [Neurontin 300 mg Capsule] 300 mg PO Q8 01/13/17 Oxycodone HCl [Oxycontin Sr 40 mg Tablet] 40 mg PO Q8 01/13/17 History of Present Illness History of Present Illness: WILLIE ALAN is a 47 year old female, She has a history of sickle cell disease, she came to the office today for evaluation of cellulitis affecting the left leg, pain involving multiple extremity and also jaundice,She has sickle cell disease with multiple hospital admission for sickle cell crisis including bone pain crisis, hemolytic crisis, sequestration crisis, vaso- occlusive crisis, she was evaluated in the office, on examination she has scleral jaundice, she looks sick she was in pain, she was admitted directly from the office into the hospital for management of her symptoms the hemogram revealed anemia with hemoglobin of 7 that was elevated reticulocyte count suggesting active bone marrow function. Hospital Course Hospital Course: Patient was admitted for the management of sickle cell disease with bone pain crisis, she also had hemolytic anemia requiring blood transfusion.. On admission she had cellulitis of the left leg, this was treated with IV antibiotic. Patient required intravenous Dilaudid for control of pain. She was treated with isotonic normal saline. She was maintained on adequate hydration for the most part of hospital stay. Physical Exam Vital Signs: Temp Pulse Resp BP Pulse Ox 98.5 F 73 16 100/69 99 01/26/17 12:00 01/26/17 14:00 01/26/17 12:00 01/26/17 12:00 01/26/17 12:00 Intake & Output 01/25/17 01/26/17 01/27/17 06:59 06:59 06:59 Intake Total 3540 3010 Output Total 2500 4000 Balance 1040 -990 Weight 68.1 kg 61.2 kg General appearance: PRESENT: no acute distress Head exam: PRESENT: atraumatic, normocephalic Eye exam: PRESENT: PERRLA Ear exam: PRESENT: normal external ear exam Mouth exam: PRESENT: moist, tongue midline Neck exam: PRESENT: full ROM Cardiovascular exam: PRESENT: RRR, +S1, +S2 GI/Abdominal exam: PRESENT: normal bowel sounds, soft Rectal exam: PRESENT: deferred Neurological exam: PRESENT: alert, CN II-XII grossly intact Psychiatric exam: PRESENT: appropriate affect, normal mood Results Laboratory Results: 01/25/17 06:52 01/22/17 05:40 Impressions: Chest X-Ray 01/13/17 00:00 IMPRESSION: NO ACUTE RADIOGRAPHIC FINDING IN THE CHEST. KUB X-Ray 01/13/17 00:00 IMPRESSION: Possible hepatomegaly.
[2017-01-26 16:46] VITALS: BP 101/56
[2017-01-26] MEDS: RIVAROXABAN 10 MG TABLET PO SCH (17:43)
[2017-01-26 18:39] LABS: HEMATOCRIT 27.5 % (36.0-47.0); HEMOGLOBIN 9.5 g/dL (12.0-15.5); MEAN CORPUSCULAR HEMOGLOBIN 36.2 pg (27.0-33.4); MEAN CORPUSCULAR HGB CONC 34.5 g/dL (32.0-36.0); MEAN CORPUSCULAR VOLUME 105 fl (80-97); RED BLOOD COUNT 2.62 10^6/uL (3.72-5.28); RED CELL DISTRIBUTION WIDTH 24.2 % (11.5-14.0); WHITE BLOOD COUNT 5.6 10^3/uL (4.0-10.5)
[2017-01-26 19:06] LABS: BASOPHILS % (MANUAL) 0 % (0-2); EOSINOPHILS % (MANUAL) 8 % (0-6); LYMPHOCYTES % (MANUAL) 45 % (13-45); NUCLEATED RED BLOOD CELLS 19 /100 WBC (0); TOTAL CELLS COUNTED 100
[2017-01-26 19:10] LABS: ANISOCYTOSIS 3+; BURR CELLS SLIGHT; HOWELL-JOLLY BODIES PRESENT; OVALOCYTES 1+; POIKILOCYTOSIS 1+; POLYCHROMASIA SLIGHT; SCHISTOCYTES SLIGHT; TARGET CELLS 1+
== END 2017-01-26 20:30 | disposition home or self-care (01) | DRG 812 ==
LOC: 4N 12:17
PROVIDERS: ADMIT Internal Medicine; ATTEND Internal Medicine
PROC: 30233N1 Transfusion of Nonautologous Red Blood Cells into Peripheral Vein, Percutaneous Approach (ICD-10-PCS; principal; 2017-01-14)
DX: D57.219 Sickle-cell/Hb-C disease with crisis, unspecified (principal); L03.116 Cellulitis of left lower limb; D58.2 Other hemoglobinopathies; R01.1 Cardiac murmur, unspecified; R19.7 Diarrhea, unspecified; Z79.899 Other long term (current) drug therapy; Z86.14 Personal history of Methicillin resistant Staphylococcus aureus infection; Z90.49 Acquired absence of other specified parts of digestive tract; Z88.6 Allergy status to analgesic agent; Z88.1 Allergy status to other antibiotic agents; Z88.3 Allergy status to other anti-infective agents
CPT/HCPCS: 36415; 36430; 71020; 74000; 80048; 80053; 80076; 81001; 84439; 84443; 85025; 85045; 86850; 86900; 86901; 86920; 87040; 87077; 87086; 87493; 89055; 93005; 93010; J1170; J1200; J2405; J3411; J3475; J3480; J3490; J7030; P9016

== ENCOUNTER 2017-03-01 13:47 | Emergency (ER) | payer MEDICAID ==
[2017-03-01] MEDS ORDERED: HYDROMORPHONE HCL INJ/PF 2 MG/ML AMPULE IV ONE ×2 (16:17→17:25)
[2017-03-01] MEDS ORDERED: NORMAL SALINE 1000 ML 1,000 ML IV ONE (16:17)
--- NOTE | 2017-03-01 16:44 | RADIOLOGY REPORT (SQ) ---
EXAM DESCRIPTION: CHEST PA/LAT COMPLETED DATE/TIME: 03/01/2017 4:15 pm REASON FOR STUDY: sickle cell crisis COMPARISON: Two-view chest 01/13/2017, 11/03/2016, 05/29/2016 EXAM PARAMETERS: NUMBER OF VIEWS: two views TECHNIQUE: Digital Frontal and Lateral radiographic views of the chest acquired. RADIATION DOSE: NA LIMITATIONS: none FINDINGS: LUNGS AND PLEURA: No opacities, masses or pneumothorax. No pleural effusion. MEDIASTINUM AND HILAR STRUCTURES: No masses or contour abnormalities. HEART AND VASCULAR STRUCTURES: Heart normal size. No evidence for failure. BONES: No acute findings. HARDWARE: Left-sided permanent central line tip superior vena cava. Clips right upper quadrant post cholecystectomy. OTHER: No other significant finding. IMPRESSION: NO SIGNIFICANT RADIOGRAPHIC FINDING IN THE CHEST. TECHNICAL DOCUMENTATION: JOB ID: [id number] [employer]- All Rights Reserved
[2017-03-01 16:52] LABS: MEAN CORPUSCULAR HEMOGLOBIN 37.8 pg (27.0-33.4); MEAN CORPUSCULAR HGB CONC 34.5 g/dL (32.0-36.0); MEAN CORPUSCULAR VOLUME 110 fl (80-97); RED BLOOD COUNT 2.37 10^6/uL (3.72-5.28); RED CELL DISTRIBUTION WIDTH 28.5 % (11.5-14.0); WHITE BLOOD COUNT 5.8 10^3/uL (4.0-10.5)
[2017-03-01 17:11] LABS: ALANINE AMINOTRANSFERASE 45 U/L (9-52); ALBUMIN 4.6 g/dL (3.5-5.0); ALKALINE PHOSPHATASE 172 U/L (38-126); ANION GAP 13 (5-19); ASPARTATE AMINO TRANSFERASE 51 U/L (14-36); BILIRUBIN,DIRECT 1.1 mg/dL (0.0-0.4); BILIRUBIN,TOTAL 3.9 mg/dL (0.2-1.3); BLOOD UREA NITROGEN 5 mg/dL (7-20); CALCIUM 9.6 mg/dL (8.4-10.2); CARBON DIOXIDE 19 mmol/L (22-30); CHLORIDE 114 mmol/L (98-107); CREATININE RESULT 0.57 mg/dL (0.52-1.25); GLUCOSE 110 mg/dL (75-110); POTASSIUM 3.4 mmol/L (3.6-5.0); SODIUM 146.1 mmol/L (137-145); TOTAL PROTEIN 7.8 g/dL (6.3-8.2)
[2017-03-01 17:12] LABS: BASOPHILS % (MANUAL) 0 % (0-2); EOSINOPHILS % (MANUAL) 0 % (0-6); LYMPHOCYTES % (MANUAL) 37 % (13-45); NUCLEATED RED BLOOD CELLS 27 /100 WBC (0); TOTAL CELLS COUNTED 100
[2017-03-01 17:16] LABS: ANISOCYTOSIS 2+; POIKILOCYTOSIS 2+; POLYCHROMASIA SLIGHT
[2017-03-01 17:17] LABS: BURR CELLS SLIGHT; OVALOCYTES SLIGHT; PLATELET CLUMPS PRESENT; TARGET CELLS 1+
[2017-03-01] MEDS ORDERED: NORMAL SALINE 500 ML IV PRN (18:13)
[2017-03-01] MEDS ORDERED: OXYCODONE HCL SR 10 MG TABLET PO ONE (18:41)
--- NOTE | 2017-03-01 18:41 | ER Document Report ---
ED General Pain - General Chief Complaint: Sickle Cell Crisis Stated Complaint: ALL OVER PAIN Time Seen by Provider: 03/01/17 15:47 Notes: Patient is a 47-year-old female presents emergency department complaining of sickle cell crisis pain for the past 3 days. 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 Patient states that she has since followed up with Dr. Mcneil and Dr. Barraza. Patient states that she has run out of her pain medications for the past 2 weeks. She admits to generalized pain in her legs, back, extremities. TRAVEL OUTSIDE OF THE [place] IN LAST 30 DAYS: No - Related Data Allergies/Adverse Reactions: doxycycline [Doxycycline] Allergy (Severe, Verified 03/01/17 14:06) morphine [Morphine] Allergy (Severe, Verified 03/01/17 14:06) unknown antibiotic Allergy (Uncoded 03/01/17 14:06) Past Medical History - Social History Smoking Status: Unknown if Ever Smoked Family History: Reviewed & Not Pertinent - Past Medical History Cardiac Medical History: Reports: Hx Heart Murmur Denies: Hx Atrial Fibrillation, Hx Congestive Heart Failure, Hx Coronary Artery Disease, Hx Heart Attack, Hx Hypercholesterolemia, Hx Hypertension, Hx Peripheral Vascular Disease Pulmonary Medical History: Denies: Hx Tuberculosis Neurological Medical History: Denies: Hx Seizures Renal/ Medical History: Reports: Hx Ovarian Cysts. 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 Denies: Hx HIV Past Surgical History: Reports: Hx Appendectomy, Hx Section, Hx Cholecystectomy, Hx Orthopedic Surgery - R knee, Hx Tonsillectomy. Denies: Hx Bowel Surgery, Hx Coronary Artery Bypass Graft, Hx Gastric Bypass Surgery, Hx Herniorrhaphy, Hx Mastectomy, Hx Pacemaker, Hx Tubal Ligation - Immunizations Immunizations up to date: Yes Hx Diphtheria, Pertussis, Tetanus Vaccination: Yes Hx Pneumococcal Vaccination: 03/20/14 Review of Systems - Review of Systems Constitutional: No symptoms reported Cardiovascular: No symptoms reported Respiratory: No symptoms reported Gastrointestinal: No symptoms reported Musculoskeletal: No symptoms reported Hematologic/Lymphatic: See HPI Neurological/Psychological: No symptoms reported -: Yes All other systems reviewed and negative Physical Exam - Vital signs Vitals: Temp Pulse Resp BP Pulse Ox 98.8 F 71 18 107/60 97 03/01/17 14:05 03/01/17 14:05 03/01/17 14:05 03/01/17 14:05 03/01/17 14:05 - Notes Notes: PHYSICAL EXAM GENERAL: Alert, interacts well. HEAD: Normocephalic, atraumatic. EYES: Pupils equal, round, and reactive to light. Extraocular movements intact. ENT: Oral mucosa moist, tongue midline. NECK: Full range of motion. Supple. Trachea midline. LUNGS: Clear to auscultation bilaterally, no wheezes, rales, or rhonchi. No respiratory distress. HEART: Regular rate and rhythm. No murmurs, gallops, or rubs. ABDOMEN: Soft, nondistended, nontender. No guarding, rebound, or rigidity.. Bowel sounds present in all 4 quadrants. EXTREMITIES: Moves all 4 extremities spontaneously with guarding 2/2 to pain. No edema, radial and dorsalis pedis pulses 2/4 bilaterally. No cyanosis. NEUROLOGICAL: Alert and oriented x4. Normal speech. PSYCH: Normal affect, normal mood. SKIN: Warm, dry, normal turgor. No rashes or lesions noted. Course - Re-evaluation Re-evalutation: 03/01/17 20:08 Presentation is most consistent with an uncomplicated sickle cell pain crisis. Patient has no evidence of an aplastic crisis on labs. Chest x-ray and vitals are not consistent with acute chest syndrome. Vitals have remained within normal limits here in the emergency department. Patient's pain has been able to be controlled using IV analgesia. The patient is agreeable to discharge home at this time. I recommended that they follow closely with their primary psychiatric aide instructor. Return precautions have been reviewed and discussed and patient has verbalized indications to return to the emergency department. - Vital Signs Vital signs: Temp Pulse Resp BP Pulse Ox 98.8 F 71 18 114/72 98 03/01/17 14:05 03/01/17 14:05 03/01/17 17:03 03/01/17 17:03 03/01/17 17:03 - Laboratory Result Diagrams: 03/01/17 16:40 03/01/17 16:40 Laboratory results interpreted by me: 03/01/17 03/01/17 16:40 16:40 RBC 2.37 L Hgb 9.0 L Hct 26.0 L MCV 110 H MCH 37.8 H RDW 28.5 H Retic Count (auto) 7.20 H Absolute Retic 0.171 H Sodium 146.1 H Potassium 3.4 L Chloride 114 H Carbon Dioxide 19 L BUN 5 L Total Bilirubin 3.9 H Direct Bilirubin 1.1 H AST 51 H Alkaline Phosphatase 172 H - Diagnostic Test Radiology reviewed: Image reviewed, Reports reviewed Discharge - Discharge Clinical Impression: Sickle cell anemia Qualifiers: Sickle-cell associated disorders: without crisis Qualified Code(s): D57.1 - Sickle-cell disease without crisis Condition: Good Disposition: HOME, SELF-CARE Instructions: Sickle Cell Crisis ([facility]) Referrals: HOMA BARRAZA MD [Primary Care Provider] - Follow up in 3-5 days ANH MCNEIL MD [ACTIVE STAFF] - Follow up in 3-5 days
[2017-03-01 20:25] VITALS: BP 106/69
== END 2017-03-01 20:25 | disposition home or self-care (01) ==
LOC: ER 13:47
DX: D57.1 Sickle-cell disease without crisis (principal); Z88.6 Allergy status to analgesic agent; Z86.14 Personal history of Methicillin resistant Staphylococcus aureus infection; Z90.49 Acquired absence of other specified parts of digestive tract
CPT/HCPCS: 99284; 96374; 36415; 83735; 85025; 85045; 80053; 71020; J1170; J3490; J7030

== ENCOUNTER 2017-03-02 13:19 | Inpatient (IN) | payer MEDICAID ==
[2017-03-02] MEDS ORDERED: NORMAL SALINE 1000 ML 1,000 ML IV PRN (14:39)
[2017-03-02] MEDS ORDERED: HYDROMORPHONE HCL INJ/PF 2 MG/ML AMPULE ONE (14:48)
[2017-03-02 15:33] LABS: HEMATOCRIT 24.8 % (36.0-47.0); HEMOGLOBIN 8.8 g/dL (12.0-15.5); HGB HCT DIFFERENCE 1.6; MEAN CORPUSCULAR HEMOGLOBIN 38.1 pg (27.0-33.4); MEAN CORPUSCULAR HGB CONC 35.3 g/dL (32.0-36.0); MEAN CORPUSCULAR VOLUME 108 fl (80-97); RED CELL DISTRIBUTION WIDTH 28.2 % (11.5-14.0)
[2017-03-02 15:47] LABS: ANION GAP 14 (5-19); BLOOD UREA NITROGEN 4 mg/dL (7-20); CALCIUM 9.7 mg/dL (8.4-10.2); CARBON DIOXIDE 18 mmol/L (22-30); CHLORIDE 114 mmol/L (98-107); CREATININE RESULT 0.56 mg/dL (0.52-1.25); GLUCOSE 107 mg/dL (75-110); POTASSIUM 3.4 mmol/L (3.6-5.0); SODIUM 146.1 mmol/L (137-145)
[2017-03-02 16:14] LABS: WHITE BLOOD COUNT 6.4 10^3/uL (4.0-10.5)
[2017-03-02] MEDS: HYDROMORPHONE HCL INJ/PF 2 MG/ML AMPULE IV PRN ×2 (18:35→22:12)
[2017-03-02] MEDS ORDERED: (PENDING PHARMACY ID) (Oxycodone Hcl [Oxycodone Hcl] 30 MG) PO PRN (19:38)
[2017-03-02] MEDS ORDERED: DEFERASIROX PO SCH (19:45)
[2017-03-02] MEDS ORDERED: FOLIC ACID 1 MG TABLET PO ONE (21:00)
[2017-03-02] MEDS ORDERED: DULOXETINE HCL 20 MG CAPSULE.DR PO ONE (21:00)
[2017-03-02] MEDS ORDERED: GABAPENTIN 300 MG CAPSULE PO ONE (21:00)
[2017-03-02] MEDS: POTASSI CL 40 MEQ/D5-1/2NS 1L 40 MEQ/1,000 ML RTUINJ IV PRN (21:27)
[2017-03-02] MEDS: WARFARIN SODIUM 5 MG TABLET PO SCH (22:09)
[2017-03-02] MEDS: OXYCODONE HCL SR 40 MG TABLET PO SCH (22:11)
[2017-03-02] MEDS: HYDROXYUREA 500 MG CAPSULE PO SCH (22:12)
[2017-03-03] MEDS: HYDROMORPHONE HCL INJ/PF 2 MG/ML AMPULE IV PRN ×6 (01:57→22:08)
[2017-03-03] MEDS: OXYCODONE HCL SR 40 MG TABLET PO SCH ×3 (06:06→22:09)
[2017-03-03] MEDS: GABAPENTIN 300 MG CAPSULE PO SCH ×3 (06:06→22:08)
[2017-03-03 06:30] LABS: HEMATOCRIT 21.7 % (36.0-47.0); HGB HCT DIFFERENCE 1.7; MEAN CORPUSCULAR HEMOGLOBIN 38.9 pg (27.0-33.4); MEAN CORPUSCULAR HGB CONC 35.9 g/dL (32.0-36.0); MEAN CORPUSCULAR VOLUME 108 fl (80-97); RED CELL DISTRIBUTION WIDTH 27.9 % (11.5-14.0)
[2017-03-03 06:32] LABS: PROTHROMBIN TIME 15.8 SEC (11.4-15.4)
[2017-03-03 06:44] LABS: HEMOGLOBIN 7.8 g/dL (12.0-15.5)
[2017-03-03 07:52] LABS: WHITE BLOOD COUNT 5.7 10^3/uL (4.0-10.5)
[2017-03-03] MEDS: DULOXETINE HCL 20 MG CAPSULE.DR PO SCH (10:07)
[2017-03-03] MEDS: HYDROXYUREA 500 MG CAPSULE PO SCH ×2 (10:07→22:08)
[2017-03-03] MEDS: FOLIC ACID 1 MG TABLET PO SCH (10:07)
[2017-03-03] MEDS: POTASSI CL 40 MEQ/D5-1/2NS 1L 40 MEQ/1,000 ML RTUINJ IV PRN (18:29)
--- NOTE | 2017-03-03 20:03 | PDOC H&P ---
History of Present Illness Admission Date/PCP: 03/02/17 13:19 HOMA BARRAZA MD History of Present Illness: WILLIE ALAN is a 47 year old female,She has history of sickle cell disease, she was recently admitted for sickle cell bone pain crisis she presented to the emergency room the day before she came to the office for bone pain she came to the office with complaint of bone pains. There is no apparent source of any acute infection could have trigger the bone pain crisis. The initial blood work showed a preserved bone marrow erythropoiesis the reticulocyte count is normal. There is no urine collected yet for analysis. 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 Past Surgical History Past Surgical History: Reports: Appendectomy, Section, Cholecystectomy , Orthopedic Surgery - R knee, Tonsillectomy Social History Smoking Status: Never Smoker Frequency of Alcohol Use: None Hx Recreational Drug Use: No Drugs: None Hx Prescription Drug Abuse: No Family History Family History: Reviewed & Not Pertinent Parental Family History Reviewed: Yes Children Family History Reviewed: Yes Sibling(s) Family History Reviewed.: Yes Medication/Allergy Home Medications: Deferasirox [Exjade] 2,500 mg PO TID 03/02/17 Duloxetine HCl [Cymbalta 20 Mg Capsule.Dr] 20 mg PO DAILY 03/02/17 Epoetin Federico [Procrit Inj 40,000 Unit/1 Ml Vial (Nrd-Subq)] 40,000 unit SUBCUT FR@1000 03/02/17 Folic Acid [Folvite 1 mg Tablet] 1 mg PO DAILY 03/02/17 Gabapentin [Neurontin 300 mg Capsule] 300 mg PO Q8 03/02/17 Hydroxyurea [Hydrea 500 Mg Capsule] 500 mg PO BID 03/02/17 Ibuprofen [Motrin 800 mg Tablet] 800 mg PO Q8 03/02/17 Oxycodone HCl 30 mg PO Q6HP PRN 03/02/17 Oxycodone HCl [Oxycontin Sr 40 mg Tablet] 40 mg PO Q8 03/02/17 Sumatriptan Succinate [Imitrex 100 Mg Tablet] 100 mg PO DAILYP PRN 03/02/17 Warfarin Sodium [Coumadin 5 mg Tablet] 10 mg PO QHS 09/13/17 Allergies/Adverse Reactions: doxycycline [Doxycycline] Allergy (Severe, Verified 03/02/17 20:20) Review of Systems Constitutional: PRESENT: headache(s) Eyes: ABSENT: visual disturbances Ears: ABSENT: hearing changes Cardiovascular: ABSENT: chest pain, dyspnea on exertion, edema, orthropnea, palpitations Respiratory: ABSENT: cough, hemoptysis Gastrointestinal: ABSENT: abdominal pain, constipation, diarrhea, hematemesis, hematochezia, nausea, vomiting Genitourinary: ABSENT: dysuria, hematuria Musculoskeletal: PRESENT: back pain. ABSENT: joint swelling Integumentary: ABSENT: rash, wounds Neurological: ABSENT: abnormal gait, abnormal speech, confusion, dizziness, focal weakness, syncope Psychiatric: ABSENT: anxiety, depression, homidical ideation, suicidal ideation Endocrine: ABSENT: cold intolerance, heat intolerance, menstrual abnormalities, polydipsia, polyuria Hematologic/Lymphatic: ABSENT: easy bleeding, easy bruising, lymphadenopathy Physical Exam Vital Signs: Temp Pulse Resp BP Pulse Ox 98.3 F 65 17 108/57 L 98 03/03/17 16:00 03/03/17 16:00 03/03/17 16:00 03/03/17 16:00 03/03/17 16:00 Intake & Output 03/02/17 03/03/17 03/04/17 06:59 06:59 06:59 Intake Total 2030 1980 Output Total 300 900 Balance 1730 1080 Weight 53.6 kg General appearance: PRESENT: mild distress Head exam: PRESENT: atraumatic, normocephalic Eye exam: PRESENT: conjunctiva pink, EOMI, PERRLA. ABSENT: scleral icterus Ear exam: PRESENT: normal external ear exam Mouth exam: PRESENT: moist, tongue midline Neck exam: PRESENT: full ROM Respiratory exam: PRESENT: clear to auscultation carolyn Cardiovascular exam: PRESENT: RRR, +S1, +S2 Pulses: PRESENT: normal dorsalis pedis pul, +2 pedal pulses bilateral Vascular exam: PRESENT: normal capillary refill GI/Abdominal exam: PRESENT: normal bowel sounds, soft Rectal exam: PRESENT: deferred Neurological exam: PRESENT: alert, awake, oriented to person, oriented to place , oriented to time, oriented to situation, CN II-XII grossly intact Psychiatric exam: PRESENT: appropriate affect, normal mood Skin exam: PRESENT: dry, intact, warm Results Laboratory Results: 03/03/17 05:45 03/02/17 14:55 03/02/17 03/03/17 21:50 05:45 WBC 5.7 RBC 2.00 L Hgb 7.8 L Hct 21.7 L MCV 108 H MCH 38.9 H MCHC 35.9 RDW 27.9 H Plt Count 211 Stool Occult Blood NEGATIVE Assessment & Plan - Diagnosis (1) Sickle cell disease with crisis Is this a current diagnosis for this admission?: Yes Plan: Patient is admitted for management, she is admitted for observation, she will be treated with IV fluid consultation from hematology
[2017-03-03 21:29] LABS: ANION GAP 9 (5-19); BLOOD UREA NITROGEN 6 mg/dL (7-20); CALCIUM 9.3 mg/dL (8.4-10.2); CARBON DIOXIDE 21 mmol/L (22-30); CHLORIDE 110 mmol/L (98-107); CREATININE RESULT 0.65 mg/dL (0.52-1.25); GLUCOSE 108 mg/dL (75-110); POTASSIUM 4.4 mmol/L (3.6-5.0); SODIUM 139.9 mmol/L (137-145)
[2017-03-03] MEDS: ONDANSETRON HCL INJ/PF 4 MG/2 ML SDV IV PRN (22:07)
[2017-03-03] MEDS: WARFARIN SODIUM 5 MG TABLET PO SCH (22:09)
[2017-03-04 00:58] LABS: APPEARANCE,URINE CLEAR; BILIRUBIN,URINE NEGATIVE (NEGATIVE); GLUCOSE, URINE NEGATIVE (NEGATIVE); KETONES,URINE NEGATIVE (NEGATIVE); LEUKOCYTE ESTERASE,URINE MODERATE (NEGATIVE); NITRITE,URINE NEGATIVE (NEGATIVE); PROTEIN,URINE NEGATIVE (NEGATIVE); URINE SPECIFIC GRAVITY 1.005; UROBILINOGEN,URINE NEGATIVE mg/dL (<2.0)
[2017-03-04] MEDS: HYDROMORPHONE HCL INJ/PF 2 MG/ML AMPULE IV PRN ×6 (02:03→21:42)
[2017-03-04] MEDS: GABAPENTIN 300 MG CAPSULE PO SCH ×3 (05:21→21:41)
[2017-03-04] MEDS: POTASSI CL 40 MEQ/D5-1/2NS 1L 40 MEQ/1,000 ML RTUINJ IV PRN ×2 (05:21→18:02)
[2017-03-04] MEDS: OXYCODONE HCL SR 40 MG TABLET PO SCH ×3 (05:21→21:41)
[2017-03-04 06:19] LABS: PROTHROMBIN TIME 19.4 SEC (11.4-15.4)
[2017-03-04 06:58] LABS: HEMATOCRIT 22.3 % (36.0-47.0); HGB HCT DIFFERENCE 1.1; MEAN CORPUSCULAR HEMOGLOBIN 38.4 pg (27.0-33.4); MEAN CORPUSCULAR HGB CONC 35.2 g/dL (32.0-36.0); MEAN CORPUSCULAR VOLUME 109 fl (80-97); RED BLOOD COUNT 2.04 10^6/uL (3.72-5.28); RED CELL DISTRIBUTION WIDTH 27.4 % (11.5-14.0)
[2017-03-04 07:19] LABS: HEMOGLOBIN 7.8 g/dL (12.0-15.5)
[2017-03-04] MEDS: HYDROXYUREA 500 MG CAPSULE PO SCH ×2 (09:48→21:42)
[2017-03-04] MEDS: DULOXETINE HCL 20 MG CAPSULE.DR PO SCH (09:48)
[2017-03-04] MEDS: ONDANSETRON HCL INJ/PF 4 MG/2 ML SDV IV PRN ×2 (09:48→18:02)
[2017-03-04] MEDS: FOLIC ACID 1 MG TABLET PO SCH (09:48)
[2017-03-04] MEDS ORDERED: EPOETIN ALFA INJ 40000 UNIT/1 ML (ONCOLOGY) SUBCUT SCH (10:00)
[2017-03-04 15:08] LABS: APPEARANCE,URINE CLEAR; BILIRUBIN,URINE NEGATIVE (NEGATIVE); GLUCOSE, URINE NEGATIVE (NEGATIVE); KETONES,URINE NEGATIVE (NEGATIVE); LEUKOCYTE ESTERASE,URINE LARGE (NEGATIVE); NITRITE,URINE NEGATIVE (NEGATIVE); PROTEIN,URINE NEGATIVE (NEGATIVE); URINE SPECIFIC GRAVITY 1.006; UROBILINOGEN,URINE NEGATIVE mg/dL (<2.0)
--- NOTE | 2017-03-04 18:55 | PDOC PROGRESS REPORT ---
Subjective Progress Note for:: 03/04/17 Subjective:: Patient was seen by the bedside she was admitted initially for observation for the management of bone pain crisis due to sickle cell disease. She was seen by the bedside she still expresses severe pain involving the lower extremities the shoulders, she is actually able to walk from the bed to the toilet in the room. The urinalysis was positive for leukocyte esterase, bacteriuria this suggest UTI, this infection could be a contributing factor in the etiology of the bone pain crisis that she is experiencing, she will empirically be treated with IV antibiotic for UTI. The utilization review department is suggesting that patient is only appropriate for observation but patient is not dischargeable at this time due to the severe pain she is experiencing and she is requiring a lot of IV Dilaudid and p.o. analgesia. Physical Exam Vital Signs: Temp Pulse Resp BP Pulse Ox 99.0 F 75 17 97/48 L 95 03/04/17 15:06 03/04/17 15:06 03/04/17 15:06 03/04/17 15:06 03/04/17 15:06 Intake & Output 03/03/17 03/04/17 03/05/17 06:59 06:59 06:59 Intake Total 2030 5265 1710 Output Total 300 3125 1300 Balance 1730 2140 410 Weight 53.6 kg General appearance: PRESENT: severe distress Eye exam: PRESENT: PERRLA Respiratory exam: PRESENT: clear to auscultation carolyn Cardiovascular exam: PRESENT: +S1, +S2 GI/Abdominal exam: PRESENT: soft Extremities exam: PRESENT: tenderness Neurological exam: PRESENT: alert Results Laboratory Results: 03/04/17 05:45 03/03/17 20:25 03/03/17 03/04/17 03/04/17 20:25 00:35 05:45 WBC 7.0 RBC 2.04 L Hgb 7.8 L Hct 22.3 L MCV 109 H MCH 38.4 H MCHC 35.2 RDW 27.4 H Plt Count 187 Sodium 139.9 Potassium 4.4 Chloride 110 H Carbon Dioxide 21 L Anion Gap 9 BUN 6 L Creatinine 0.65 Est GFR ( Amer) > 60 Est GFR (Non-Af Amer) > 60 Glucose 108 Calcium 9.3 Urine Color YELLOW Urine Appearance CLEAR Urine pH 6.0 Ur Specific [place] 1.005 Urine Protein NEGATIVE Urine Glucose (UA) NEGATIVE Urine Ketones NEGATIVE Urine Blood NEGATIVE Urine Nitrite NEGATIVE Ur Leukocyte Esterase MODERATE H Urine WBC (Auto) 27 Urine RBC (Auto) 1 03/04/17 12:15 WBC RBC Hgb Hct MCV MCH MCHC RDW Plt Count Sodium Potassium Chloride Carbon Dioxide Anion Gap BUN Creatinine Est GFR ( Amer) Est GFR (Non-Af Amer) Glucose Calcium Urine Color YELLOW Urine Appearance CLEAR Urine pH 5.0 Ur Specific [place] 1.006 Urine Protein NEGATIVE Urine Glucose (UA) NEGATIVE Urine Ketones NEGATIVE Urine Blood SMALL H Urine Nitrite NEGATIVE Ur Leukocyte Esterase LARGE H Urine WBC (Auto) 16 Urine RBC (Auto) 1 03/02/17 20:40 Nasophary (Mrsa Only) MRSA Surveillance Culture - Final NO MRSA RECOVERED Assessment & Plan - Diagnosis (1) Sickle cell disease with crisis Is this a current diagnosis for this admission?: Yes Plan: Continue IV fluid therapy pain control with IV Dilaudid, p.o. analgesia (2) Urinary tract infection Qualifiers: Urinary tract infection type: site unspecified Hematuria presence: without hematuria Qualified Code(s): N39.0 - Urinary tract infection, site not specified Is this a current diagnosis for this admission?: Yes Plan: Patient to be started on IV Cipro 400 mg every 12
[2017-03-04] MEDS ORDERED: CIPROFLOXACIN 400 MG/D5W RTU 400 MG/200 ML RTUPB IV ONE (20:00)
[2017-03-04] MEDS: WARFARIN SODIUM 5 MG TABLET PO SCH (21:42)
[2017-03-05] MEDS: HYDROMORPHONE HCL INJ/PF 2 MG/ML AMPULE IV PRN ×6 (01:29→20:49)
[2017-03-05] MEDS: ONDANSETRON HCL INJ/PF 4 MG/2 ML SDV IV PRN ×3 (01:29→16:55)
[2017-03-05] MEDS: OXYCODONE HCL IR 5 MG TABLET PO PRN (03:59)
[2017-03-05] MEDS: GABAPENTIN 300 MG CAPSULE PO SCH ×3 (05:05→21:56)
[2017-03-05] MEDS: OXYCODONE HCL SR 40 MG TABLET PO SCH ×3 (05:05→21:56)
[2017-03-05] MEDS: CIPROFLOXACIN 400 MG/D5W RTU 400 MG/200 ML RTUPB IV SCH ×2 (05:05→17:00)
[2017-03-05] MEDS: POTASSI CL 40 MEQ/D5-1/2NS 1L 40 MEQ/1,000 ML RTUINJ IV PRN ×2 (05:06→16:57)
[2017-03-05 06:03] LABS: PROTHROMBIN TIME 24.4 SEC (11.4-15.4)
[2017-03-05 07:00] LABS: HEMATOCRIT 23.1 % (36.0-47.0); HGB HCT DIFFERENCE 0.9; MEAN CORPUSCULAR HEMOGLOBIN 37.2 pg (27.0-33.4); MEAN CORPUSCULAR HGB CONC 34.8 g/dL (32.0-36.0); MEAN CORPUSCULAR VOLUME 107 fl (80-97); RED BLOOD COUNT 2.16 10^6/uL (3.72-5.28); RED CELL DISTRIBUTION WIDTH 26.8 % (11.5-14.0); WHITE BLOOD COUNT 5.3 10^3/uL (4.0-10.5)
--- NOTE | 2017-03-05 07:50 | PDOC PROGRESS REPORT ---
Subjective Progress Note for:: 03/05/17 Subjective:: Patient continue to experience SCD related multiple joint aches and pain and episodes of nausea with vomiting. No diarrhea in last 24 hours. No difficulty with breathing. No cardiac related chest pain. No fever or chills. Physical Exam Vital Signs: Temp Pulse Resp BP Pulse Ox 98.7 F 77 18 99/63 L 94 03/05/17 00:00 03/05/17 00:00 03/05/17 00:00 03/05/17 00:00 03/05/17 00:00 Intake & Output 03/04/17 03/05/17 03/06/17 06:59 06:59 06:59 Intake Total 5265 4090 Output Total 3125 3100 Balance 2140 990 Weight 59 kg General appearance: PRESENT: mild distress - related to SCD pain Head exam: PRESENT: atraumatic, normocephalic Eye exam: PRESENT: conjunctiva pink. ABSENT: conjunctiva pale, scleral icterus Mouth exam: PRESENT: moist Respiratory exam: PRESENT: clear to auscultation carolyn Cardiovascular exam: PRESENT: RRR. ABSENT: diastolic murmur, rubs, systolic murmur Vascular exam: ABSENT: pallor GI/Abdominal exam: PRESENT: normal bowel sounds, soft. ABSENT: distended, guarding, mass, organolmegaly, rebound, tenderness Musculoskeletal exam: PRESENT: ambulatory - in her room with quad cane assistance Neurological exam: PRESENT: alert, awake, oriented to person, oriented to place , oriented to time, oriented to situation, CN II-XII grossly intact. ABSENT: motor sensory deficit Psychiatric exam: PRESENT: appropriate affect, normal mood. ABSENT: homicidal ideation, suicidal ideation Skin exam: PRESENT: dry, intact, warm. ABSENT: cyanosis, rash Results Laboratory Results: 03/03/17 20:25 03/04/17 12:15 Urine Color YELLOW Urine Appearance CLEAR Urine pH 5.0 Ur Specific [place] 1.006 Urine Protein NEGATIVE Urine Glucose (UA) NEGATIVE Urine Ketones NEGATIVE Urine Blood SMALL H Urine Nitrite NEGATIVE Ur Leukocyte Esterase LARGE H Urine WBC (Auto) 16 Urine RBC (Auto) 1 03/02/17 20:40 Nasophary (Mrsa Only) MRSA Surveillance Culture - Final NO MRSA RECOVERED Assessment & Plan - Diagnosis (1) Urinary tract infection Qualifiers: Urinary tract infection type: site unspecified Hematuria presence: without hematuria Qualified Code(s): N39.0 - Urinary tract infection, site not specified Is this a current diagnosis for this admission?: Yes Plan: Continue IV Ciprofloxacin coverage. Maintain on IV fluid. (2) [id number] C disease with crisis Is this a current diagnosis for this admission?: Yes - Time Time Spent with patient: 25-34 minutes Medications reviewed and adjusted accordingly: Yes Anticipated discharge: Home Within: Other - Inpatient Certification Based on my medical assessment, after consideration of the patient's comorbidities, presenting symptoms, or acuity I expect that the services needed warrant INPATIENT care.: Yes I certify that my determination is in accordance with my understanding of Medicare's requirements for reasonable and necessary INPATIENT services [42 CFR 412.3e].: Yes Medical Necessity: Need For IV Fluids, Need for Pain Control, Need for IV Antibiotics, Risk of Complication if Not Cared For in Hospital - Plan Summary Plan Summary: Continue current medication management. Change status to full inpatient in view of her persistent SCD related pain with need for IV Dilaudid, IV antibiotic for UTI due to associated nausea, vomiting and diarrhea upon presentation.
[2017-03-05] MEDS: DULOXETINE HCL 20 MG CAPSULE.DR PO SCH (11:27)
[2017-03-05] MEDS: FOLIC ACID 1 MG TABLET PO SCH (11:28)
[2017-03-05] MEDS: HYDROXYUREA 500 MG CAPSULE PO SCH ×2 (11:28→21:56)
[2017-03-05] MEDS: WARFARIN SODIUM 5 MG TABLET PO SCH (21:56)
[2017-03-06] MEDS: HYDROMORPHONE HCL INJ/PF 2 MG/ML AMPULE IV PRN ×6 (00:47→21:33)
[2017-03-06] MEDS: ONDANSETRON HCL INJ/PF 4 MG/2 ML SDV IV PRN ×3 (00:47→17:13)
[2017-03-06] MEDS: OXYCODONE HCL IR 5 MG TABLET PO PRN ×2 (03:23→23:19)
[2017-03-06] MEDS: OXYCODONE HCL SR 40 MG TABLET PO SCH ×3 (05:01→21:33)
[2017-03-06] MEDS: GABAPENTIN 300 MG CAPSULE PO SCH ×3 (05:01→21:33)
[2017-03-06] MEDS: POTASSI CL 40 MEQ/D5-1/2NS 1L 40 MEQ/1,000 ML RTUINJ IV PRN ×2 (05:01→19:18)
[2017-03-06] MEDS: CIPROFLOXACIN 400 MG/D5W RTU 400 MG/200 ML RTUPB IV SCH ×2 (05:01→17:13)
[2017-03-06 05:34] LABS: HEMATOCRIT 20.9 % (36.0-47.0); HGB HCT DIFFERENCE 1.6; MEAN CORPUSCULAR HEMOGLOBIN 38.2 pg (27.0-33.4); MEAN CORPUSCULAR HGB CONC 35.7 g/dL (32.0-36.0); MEAN CORPUSCULAR VOLUME 107 fl (80-97); RED BLOOD COUNT 1.95 10^6/uL (3.72-5.28); RED CELL DISTRIBUTION WIDTH 26.3 % (11.5-14.0); WHITE BLOOD COUNT 7.8 10^3/uL (4.0-10.5)
[2017-03-06 05:38] LABS: PROTHROMBIN TIME 33.7 SEC (11.4-15.4)
[2017-03-06 05:54] LABS: HEMOGLOBIN 7.5 g/dL (12.0-15.5)
[2017-03-06] MEDS: DULOXETINE HCL 20 MG CAPSULE.DR PO SCH (09:09)
[2017-03-06] MEDS: FOLIC ACID 1 MG TABLET PO SCH (09:09)
[2017-03-06] MEDS: HYDROXYUREA 500 MG CAPSULE PO SCH ×2 (09:09→21:33)
--- NOTE | 2017-03-06 11:16 | PDOC PROGRESS REPORT ---
Subjective Subjective:: Patient continue to experience SCD related multiple joint and back aches and pain. She reported fairly satisfactory pain control on her current regimen but intermittent nausea and vomiting do persist. No abdominal pain or diarrhea. No difficulty with breathing. No chest pain. No fever or chills. Urine culture is growing gram negative rods > 100,000 col/mL. Physical Exam Vital Signs: Temp Pulse Resp BP Pulse Ox 99.2 F 86 19 110/58 L 95 03/06/17 07:35 03/06/17 07:35 03/06/17 07:35 03/06/17 07:35 03/06/17 07:35 Intake & Output 03/05/17 03/06/17 03/07/17 06:59 06:59 06:59 Intake Total 4090 4564 Output Total 3100 3200 Balance 990 1364 Weight 59 kg Physical Exam: General appearance: PRESENT: mild distress - related to SCD pain Head exam: PRESENT: atraumatic, normocephalic Eye exam: PRESENT: conjunctiva pink. ABSENT: conjunctiva pale, scleral icterus Mouth exam: PRESENT: moist Respiratory exam: PRESENT: clear to auscultation carolyn Cardiovascular exam: PRESENT: RRR. ABSENT: diastolic murmur, rubs, systolic murmur Vascular exam: ABSENT: pallor GI/Abdominal exam: PRESENT: normal bowel sounds, soft. ABSENT: distended, guarding, mass, organomegaly, rebound, tenderness Musculoskeletal exam: PRESENT: ambulatory - in her room with quad cane assistance, tenderness multiple joints and back due to SCD pain crisis Neurological exam: PRESENT: alert, awake, oriented to person, oriented to place , oriented to time, oriented to situation, CN II-XII grossly intact. ABSENT: motor sensory deficit Psychiatric exam: PRESENT: appropriate affect, normal mood. ABSENT: homicidal ideation, suicidal ideation Skin exam: PRESENT: dry, intact, warm. ABSENT: cyanosis, rash Results Laboratory Results: 03/06/17 05:00 03/03/17 20:25 03/06/17 05:00 WBC 7.8 RBC 1.95 L Hgb 7.5 L Hct 20.9 L MCV 107 H MCH 38.2 H MCHC 35.7 RDW 26.3 H Plt Count 165 Assessment & Plan - Diagnosis (1) Urinary tract infection Qualifiers: Urinary tract infection type: site unspecified Hematuria presence: without hematuria Qualified Code(s): N39.0 - Urinary tract infection, site not specified Is this a current diagnosis for this admission?: Yes (2) [id number] C disease with crisis Is this a current diagnosis for this admission?: Yes - Time Time Spent with patient: 25-34 minutes Medications reviewed and adjusted accordingly: Yes Anticipated discharge: Home Within: Other - Inpatient Certification Based on my medical assessment, after consideration of the patient's comorbidities, presenting symptoms, or acuity I expect that the services needed warrant INPATIENT care.: Yes I certify that my determination is in accordance with my understanding of Medicare's requirements for reasonable and necessary INPATIENT services [42 CFR 412.3e].: Yes Medical Necessity: Need Close Monitoring Due to Risk of Patient Decompensation, Need For IV Fluids, Need for Pain Control, Need for IV Antibiotics, Risk of Complication if Not Cared For in Hospital 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 Monitor hemoglobin level and consider transfusion if below 7.0gm/dL
[2017-03-06] MEDS: WARFARIN SODIUM 5 MG TABLET PO SCH (21:33)
[2017-03-07] MEDS: HYDROMORPHONE HCL INJ/PF 2 MG/ML AMPULE IV PRN ×6 (01:38→22:04)
[2017-03-07] MEDS: ONDANSETRON HCL INJ/PF 4 MG/2 ML SDV IV PRN ×3 (01:38→17:51)
[2017-03-07] MEDS: POTASSI CL 40 MEQ/D5-1/2NS 1L 40 MEQ/1,000 ML RTUINJ IV PRN ×2 (05:06→16:27)
[2017-03-07] MEDS: OXYCODONE HCL SR 40 MG TABLET PO SCH ×3 (05:06→22:04)
[2017-03-07] MEDS: GABAPENTIN 300 MG CAPSULE PO SCH ×3 (05:06→22:04)
[2017-03-07] MEDS: CIPROFLOXACIN 400 MG/D5W RTU 400 MG/200 ML RTUPB IV SCH ×2 (05:06→17:51)
[2017-03-07 07:09] LABS: HEMATOCRIT 19.8 % (36.0-47.0); HGB HCT DIFFERENCE 1.5; MEAN CORPUSCULAR HEMOGLOBIN 38.3 pg (27.0-33.4); MEAN CORPUSCULAR VOLUME 106 fl (80-97); RED BLOOD COUNT 1.86 10^6/uL (3.72-5.28); RED CELL DISTRIBUTION WIDTH 26.3 % (11.5-14.0)
[2017-03-07 07:19] LABS: PROTHROMBIN TIME 41.6 SEC (11.4-15.4)
[2017-03-07] MEDS: OXYCODONE HCL IR 5 MG TABLET PO PRN (07:26)
[2017-03-07 08:02] LABS: HEMOGLOBIN 7.1 g/dL (12.0-15.5)
[2017-03-07 08:22] LABS: WHITE BLOOD COUNT 6.5 10^3/uL (4.0-10.5)
[2017-03-07] MEDS: FOLIC ACID 1 MG TABLET PO SCH (09:32)
[2017-03-07] MEDS: DULOXETINE HCL 20 MG CAPSULE.DR PO SCH (09:32)
[2017-03-07] MEDS: HYDROXYUREA 500 MG CAPSULE PO SCH ×2 (09:32→22:05)
[2017-03-07 15:29] LABS: APPEARANCE,URINE CLEAR; BILIRUBIN,URINE NEGATIVE (NEGATIVE); GLUCOSE, URINE NEGATIVE (NEGATIVE); KETONES,URINE NEGATIVE (NEGATIVE); LEUKOCYTE ESTERASE,URINE LARGE (NEGATIVE); NITRITE,URINE NEGATIVE (NEGATIVE); PROTEIN,URINE NEGATIVE (NEGATIVE); URINE SPECIFIC GRAVITY 1.005; UROBILINOGEN,URINE NEGATIVE mg/dL (<2.0)
--- NOTE | 2017-03-07 21:47 | PDOC PROGRESS REPORT ---
Subjective Progress Note for:: 03/07/17 Subjective:: She was seen by the bedside she continues to complain of pain of the bones she also complained of itching of the legs Physical Exam Vital Signs: Temp Pulse Resp BP Pulse Ox 98.8 F 78 17 99/55 L 94 03/07/17 20:00 03/07/17 20:00 03/07/17 20:00 03/07/17 20:00 03/07/17 20:00 Intake & Output 03/06/17 03/07/17 03/08/17 06:59 06:59 06:59 Intake Total 4564 4620 1844 Output Total 3200 2700 1000 Balance 1364 1920 844 General appearance: PRESENT: severe distress Head exam: PRESENT: atraumatic, normocephalic Eye exam: PRESENT: PERRLA Neck exam: PRESENT: full ROM Respiratory exam: PRESENT: clear to auscultation carolyn Cardiovascular exam: PRESENT: RRR, +S1, +S2 Pulses: PRESENT: normal dorsalis pedis pul, +2 pedal pulses bilateral Vascular exam: PRESENT: normal capillary refill GI/Abdominal exam: PRESENT: normal bowel sounds, soft Rectal exam: PRESENT: deferred Neurological exam: PRESENT: alert Psychiatric exam: PRESENT: appropriate affect, normal mood Skin exam: PRESENT: dry, intact, warm Results Laboratory Results: 03/07/17 06:30 03/03/17 20:25 03/07/17 03/07/17 06:30 13:50 WBC 6.5 RBC 1.86 L Hgb 7.1 L Hct 19.8 L MCV 106 H MCH 38.3 H MCHC 36.0 RDW 26.3 H Plt Count 178 Urine Color YELLOW Urine Appearance CLEAR Urine pH 5.0 Ur Specific [place] 1.005 Urine Protein NEGATIVE Urine Glucose (UA) NEGATIVE Urine Ketones NEGATIVE Urine Blood MODERATE H Urine Nitrite NEGATIVE Ur Leukocyte Esterase LARGE H Urine WBC (Auto) 15 Urine RBC (Auto) 0 03/02/17 17:42 Blood Blood Culture - Final NO GROWTH IN 5 DAYS 03/02/17 14:55 Blood Blood Culture - Final NO GROWTH IN 5 DAYS 03/04/17 00:35 Clean Catch Midstream Urine Culture - Final Klebsiella Pneumoniae Assessment & Plan - Diagnosis (1) Sickle cell disease with crisis Is this a current diagnosis for this admission?: Yes (2) Urinary tract infection Qualifiers: Urinary tract infection type: site unspecified Hematuria presence: without hematuria Qualified Code(s): N39.0 - Urinary tract infection, site not specified Is this a current diagnosis for this admission?: Yes (3) UTI due to Klebsiella species Is this a current diagnosis for this admission?: Yes
[2017-03-07] MEDS: DIPHENHYDRAMINE HCL 25 MG CAPSULE PO PRN (22:04)
[2017-03-07] MEDS: WARFARIN SODIUM 5 MG TABLET PO SCH (22:04)
[2017-03-08] MEDS: ONDANSETRON HCL INJ/PF 4 MG/2 ML SDV IV PRN ×2 (04:03→15:51)
[2017-03-08] MEDS: HYDROMORPHONE HCL INJ/PF 2 MG/ML AMPULE IV PRN ×5 (04:03→19:59)
[2017-03-08] MEDS: GABAPENTIN 300 MG CAPSULE PO SCH ×3 (05:17→21:55)
[2017-03-08] MEDS: CIPROFLOXACIN 400 MG/D5W RTU 400 MG/200 ML RTUPB IV SCH ×2 (05:17→17:40)
[2017-03-08] MEDS: OXYCODONE HCL SR 40 MG TABLET PO SCH ×3 (05:18→21:55)
[2017-03-08] MEDS: POTASSI CL 40 MEQ/D5-1/2NS 1L 40 MEQ/1,000 ML RTUINJ IV PRN ×2 (05:19→17:40)
[2017-03-08 06:00] LABS: HEMATOCRIT 19.6 % (36.0-47.0); HGB HCT DIFFERENCE 1.7; MEAN CORPUSCULAR HEMOGLOBIN 39.1 pg (27.0-33.4); MEAN CORPUSCULAR HGB CONC 36.4 g/dL (32.0-36.0); MEAN CORPUSCULAR VOLUME 108 fl (80-97); RED BLOOD COUNT 1.82 10^6/uL (3.72-5.28); RED CELL DISTRIBUTION WIDTH 27.3 % (11.5-14.0); WHITE BLOOD COUNT 6.1 10^3/uL (4.0-10.5)
[2017-03-08 06:38] LABS: HEMOGLOBIN 7.1 g/dL (12.0-15.5)
[2017-03-08] MEDS: DULOXETINE HCL 20 MG CAPSULE.DR PO SCH (09:38)
[2017-03-08] MEDS: FOLIC ACID 1 MG TABLET PO SCH (09:39)
[2017-03-08] MEDS: HYDROXYUREA 500 MG CAPSULE PO SCH ×2 (09:39→21:55)
--- NOTE | 2017-03-08 20:41 | PDOC PROGRESS REPORT ---
Subjective Progress Note for:: 03/08/17 Subjective:: She continues to experience bone pain from a sickle cell disease shows a complaint of left leg itching, she is requesting Benadryl intravenously Physical Exam Vital Signs: Temp Pulse Resp BP Pulse Ox 98.8 F 78 17 99/55 L 94 03/07/17 20:00 03/07/17 20:00 03/07/17 20:00 03/07/17 20:00 03/07/17 20:00 Intake & Output 03/07/17 03/08/17 03/09/17 06:59 06:59 06:59 Intake Total 4620 4089 1994 Output Total 2700 2000 1600 Balance 1920 2089 394 General appearance: PRESENT: no acute distress Eye exam: PRESENT: PERRLA Respiratory exam: PRESENT: clear to auscultation carolyn Cardiovascular exam: PRESENT: +S1, +S2 GI/Abdominal exam: PRESENT: soft Results Laboratory Results: 03/08/17 05:15 03/03/17 20:25 03/08/17 05:15 WBC 6.1 RBC 1.82 L Hgb 7.1 L Hct 19.6 L MCV 108 H MCH 39.1 H MCHC 36.4 H RDW 27.3 H Plt Count 196 03/02/17 17:42 Blood Blood Culture - Final NO GROWTH IN 5 DAYS Assessment & Plan - Diagnosis (1) Sickle cell disease with crisis Is this a current diagnosis for this admission?: Yes (2) Urinary tract infection Qualifiers: Urinary tract infection type: site unspecified Hematuria presence: without hematuria Qualified Code(s): N39.0 - Urinary tract infection, site not specified Is this a current diagnosis for this admission?: Yes (3) UTI due to Klebsiella species Is this a current diagnosis for this admission?: Yes
[2017-03-09] MEDS: ONDANSETRON HCL INJ/PF 4 MG/2 ML SDV IV PRN ×3 (00:02→15:51)
[2017-03-09] MEDS: HYDROMORPHONE HCL INJ/PF 2 MG/ML AMPULE IV PRN ×6 (00:02→20:10)
[2017-03-09] MEDS: OXYCODONE HCL SR 40 MG TABLET PO SCH ×3 (05:13→21:33)
[2017-03-09] MEDS: CIPROFLOXACIN 400 MG/D5W RTU 400 MG/200 ML RTUPB IV SCH ×2 (05:13→18:05)
[2017-03-09] MEDS: GABAPENTIN 300 MG CAPSULE PO SCH ×3 (05:13→21:33)
[2017-03-09 07:47] LABS: HEMATOCRIT 20.3 % (36.0-47.0); HGB HCT DIFFERENCE 1.9; MEAN CORPUSCULAR HGB CONC 36.3 g/dL (32.0-36.0); MEAN CORPUSCULAR VOLUME 107 fl (80-97); RED BLOOD COUNT 1.89 10^6/uL (3.72-5.28); RED CELL DISTRIBUTION WIDTH 28.4 % (11.5-14.0)
[2017-03-09] MEDS: POTASSI CL 40 MEQ/D5-1/2NS 1L 40 MEQ/1,000 ML RTUINJ IV PRN ×2 (08:00→18:08)
[2017-03-09 08:16] LABS: HEMOGLOBIN 7.4 g/dL (12.0-15.5)
[2017-03-09 08:17] LABS: WHITE BLOOD COUNT 5.5 10^3/uL (4.0-10.5)
[2017-03-09] MEDS: HYDROXYUREA 500 MG CAPSULE PO SCH ×2 (09:48→21:32)
[2017-03-09] MEDS: FOLIC ACID 1 MG TABLET PO SCH (09:48)
[2017-03-09] MEDS: DULOXETINE HCL 20 MG CAPSULE.DR PO SCH (09:48)
[2017-03-09] MEDS: DIPHENHYDRAMINE HCL 50 MG/ML VIAL IV PRN ×2 (12:12→20:10)
[2017-03-09] MEDS: RIVAROXABAN 10 MG TABLET PO SCH (18:04)
--- NOTE | 2017-03-09 18:57 | PDOC PROGRESS REPORT ---
Subjective Progress Note for:: 03/09/17 Subjective:: Patient continued to have pain, itching of the legs Physical Exam Vital Signs: Temp Pulse Resp BP Pulse Ox 99 F 88 15 108/57 L 94 03/09/17 16:00 03/09/17 16:00 03/09/17 16:00 03/09/17 16:00 03/09/17 16:00 Intake & Output 03/08/17 03/09/17 03/10/17 06:59 06:59 06:59 Intake Total 4089 4354 Output Total 1999 3800 Balance 2089 554 General appearance: PRESENT: no acute distress Eye exam: PRESENT: PERRLA Respiratory exam: PRESENT: clear to auscultation carolyn Cardiovascular exam: PRESENT: +S1, +S2 GI/Abdominal exam: PRESENT: soft Neurological exam: PRESENT: alert Results Laboratory Results: 03/09/17 07:34 03/03/17 20:25 03/09/17 03/09/17 05:20 07:34 WBC Cancelled 5.5 RBC Cancelled 1.89 L Hgb Cancelled 7.4 L Hct Cancelled 20.3 L MCV Cancelled 107 H MCH Cancelled 39.0 H MCHC Cancelled 36.3 H RDW Cancelled 28.4 H Plt Count Cancelled 227 Assessment & Plan - Diagnosis (1) Sickle cell disease with crisis Is this a current diagnosis for this admission?: Yes (2) Urinary tract infection Qualifiers: Urinary tract infection type: site unspecified Hematuria presence: without hematuria Qualified Code(s): N39.0 - Urinary tract infection, site not specified Is this a current diagnosis for this admission?: Yes (3) UTI due to Klebsiella species Is this a current diagnosis for this admission?: Yes
[2017-03-10] MEDS: ONDANSETRON HCL INJ/PF 4 MG/2 ML SDV IV PRN ×3 (00:11→16:23)
[2017-03-10] MEDS: HYDROMORPHONE HCL INJ/PF 2 MG/ML AMPULE IV PRN ×6 (00:11→20:05)
[2017-03-10] MEDS: DIPHENHYDRAMINE HCL 50 MG/ML VIAL IV PRN ×3 (04:11→20:05)
[2017-03-10] MEDS: CIPROFLOXACIN 400 MG/D5W RTU 400 MG/200 ML RTUPB IV SCH ×2 (05:13→17:20)
[2017-03-10] MEDS: GABAPENTIN 300 MG CAPSULE PO SCH ×3 (05:13→21:27)
[2017-03-10] MEDS: OXYCODONE HCL SR 40 MG TABLET PO SCH ×3 (05:13→21:27)
[2017-03-10] MEDS: POTASSI CL 40 MEQ/D5-1/2NS 1L 40 MEQ/1,000 ML RTUINJ IV PRN ×2 (08:03→18:52)
[2017-03-10 08:13] LABS: WHITE BLOOD COUNT 5.2 10^3/uL (4.0-10.5)
[2017-03-10 08:14] LABS: HEMATOCRIT 19.5 % (36.0-47.0); HGB HCT DIFFERENCE 0.9; MEAN CORPUSCULAR HGB CONC 35.1 g/dL (32.0-36.0); MEAN CORPUSCULAR VOLUME 108 fl (80-97); RED CELL DISTRIBUTION WIDTH 28.6 % (11.5-14.0)
[2017-03-10 09:11] LABS: HEMOGLOBIN 6.8 g/dL (12.0-15.5)
[2017-03-10] MEDS: DULOXETINE HCL 20 MG CAPSULE.DR PO SCH (11:16)
[2017-03-10] MEDS: HYDROXYUREA 500 MG CAPSULE PO SCH ×2 (11:17→21:27)
[2017-03-10] MEDS: FOLIC ACID 1 MG TABLET PO SCH (11:18)
[2017-03-10] MEDS: RIVAROXABAN 10 MG TABLET PO SCH (17:20)
[2017-03-10] MEDS ORDERED: EPOETIN ALFA INJ 40000 UNIT/1 ML (RENAL) SUBCUT ONE (21:03)
--- NOTE | 2017-03-10 21:03 | PDOC PROGRESS REPORT ---
Subjective Progress Note for:: 03/10/17 Subjective:: She has hemoglobin 6.8 will hold off transfusion today if the hemoglobin should drop further tomorrow she be transfused with blood Physical Exam Vital Signs: Temp Pulse Resp BP Pulse Ox 98.4 F 85 17 104/59 L 93 03/10/17 15:39 03/10/17 15:39 03/10/17 15:39 03/10/17 15:39 03/10/17 15:39 Intake & Output 03/09/17 03/10/17 03/11/17 06:59 06:59 06:59 Intake Total 4354 3513 2480 Output Total 3800 3600 1800 Balance 554 -54 680 General appearance: PRESENT: mild distress Eye exam: PRESENT: PERRLA Respiratory exam: PRESENT: clear to auscultation carolyn Cardiovascular exam: PRESENT: +S1, +S2 GI/Abdominal exam: PRESENT: soft Neurological exam: PRESENT: alert, CN II-XII grossly intact Results Laboratory Results: 03/10/17 06:30 03/03/17 20:25 03/10/17 03/10/17 06:30 12:00 WBC 5.2 RBC 1.80 L Hgb 6.8 L Hct 19.5 L MCV 108 H MCH 38.0 H MCHC 35.1 RDW 28.6 H Plt Count 202 Stool Occult Blood NEGATIVE Assessment & Plan - Diagnosis (1) Sickle cell disease with crisis Is this a current diagnosis for this admission?: Yes (2) Urinary tract infection Qualifiers: Urinary tract infection type: site unspecified Hematuria presence: without hematuria Qualified Code(s): N39.0 - Urinary tract infection, site not specified Is this a current diagnosis for this admission?: Yes (3) UTI due to Klebsiella species Is this a current diagnosis for this admission?: Yes
[2017-03-10] MEDS ORDERED: EPOETIN ALFA INJ 40000 UNIT/1 ML (ONCOLOGY) SUBCUT ONE (22:00)
[2017-03-11] MEDS: HYDROMORPHONE HCL INJ/PF 2 MG/ML AMPULE IV PRN ×6 (00:25→21:11)
[2017-03-11] MEDS: ONDANSETRON HCL INJ/PF 4 MG/2 ML SDV IV PRN ×3 (00:26→17:01)
[2017-03-11] MEDS: DIPHENHYDRAMINE HCL 50 MG/ML VIAL IV PRN ×3 (04:31→21:11)
[2017-03-11] MEDS: OXYCODONE HCL SR 40 MG TABLET PO SCH ×3 (05:29→21:10)
[2017-03-11] MEDS: GABAPENTIN 300 MG CAPSULE PO SCH ×3 (05:29→21:10)
[2017-03-11] MEDS: CIPROFLOXACIN 400 MG/D5W RTU 400 MG/200 ML RTUPB IV SCH ×2 (05:29→19:09)
[2017-03-11] MEDS: POTASSI CL 40 MEQ/D5-1/2NS 1L 40 MEQ/1,000 ML RTUINJ IV PRN (05:29)
[2017-03-11 07:51] LABS: HGB HCT DIFFERENCE 1.2; MEAN CORPUSCULAR HEMOGLOBIN 39.2 pg (27.0-33.4); MEAN CORPUSCULAR HGB CONC 35.8 g/dL (32.0-36.0); MEAN CORPUSCULAR VOLUME 110 fl (80-97); RED BLOOD COUNT 1.64 10^6/uL (3.72-5.28); RED CELL DISTRIBUTION WIDTH 29.2 % (11.5-14.0)
[2017-03-11 08:41] LABS: HEMOGLOBIN 6.4 g/dL (12.0-15.5)
[2017-03-11 08:43] LABS: WHITE BLOOD COUNT 5.9 10^3/uL (4.0-10.5)
[2017-03-11] MEDS: FOLIC ACID 1 MG TABLET PO SCH (09:08)
[2017-03-11] MEDS: DULOXETINE HCL 20 MG CAPSULE.DR PO SCH (09:08)
[2017-03-11] MEDS: HYDROXYUREA 500 MG CAPSULE PO SCH ×2 (09:08→21:10)
[2017-03-11 11:59] LABS: ANION GAP 11 (5-19); BLOOD UREA NITROGEN 13 mg/dL (7-20); CALCIUM 9.4 mg/dL (8.4-10.2); CARBON DIOXIDE 26 mmol/L (22-30); CHLORIDE 100 mmol/L (98-107); CREATININE RESULT 0.85 mg/dL (0.52-1.25); GLUCOSE 89 mg/dL (75-110); POTASSIUM 5.3 mmol/L (3.6-5.0); SODIUM 136.9 mmol/L (137-145)
[2017-03-11] MEDS: RIVAROXABAN 10 MG TABLET PO SCH (17:05)
--- NOTE | 2017-03-11 19:28 | PDOC PROGRESS REPORT ---
Subjective Progress Note for:: 03/11/17 Subjective:: The hemoglobin is 6.4, patient was seen by the bedside, there is no new complaints Physical Exam Vital Signs: Temp Pulse Resp BP Pulse Ox 99.0 F 88 16 106/61 94 03/11/17 17:15 03/11/17 17:15 03/11/17 17:15 03/11/17 17:15 03/11/17 17:15 Intake & Output 03/10/17 03/11/17 03/12/17 06:59 06:59 06:59 Intake Total 3513 5580 2630 Output Total 3600 4300 1200 Balance -87 1280 1430 General appearance: PRESENT: mild distress Eye exam: PRESENT: PERRLA Respiratory exam: PRESENT: clear to auscultation carolyn Cardiovascular exam: PRESENT: +S1, +S2 GI/Abdominal exam: PRESENT: soft Neurological exam: PRESENT: alert Results Laboratory Results: 03/11/17 07:30 03/11/17 11:20 03/11/17 03/11/17 03/11/17 07:30 11:20 11:20 WBC 5.9 RBC 1.64 L Hgb 6.4 L Hct 18.0 L MCV 110 H MCH 39.2 H MCHC 35.8 RDW 29.2 H Plt Count 190 Sodium 136.9 L Potassium 5.3 H Chloride 100 Carbon Dioxide 26 Anion Gap 11 BUN 13 Creatinine 0.85 Est GFR ( Amer) > 60 Est GFR (Non-Af Amer) > 60 Glucose 89 Calcium 9.4 Blood Type O POSITIVE Antibody Screen NEGATIVE Assessment & Plan - Diagnosis (1) Sickle cell disease with crisis Is this a current diagnosis for this admission?: Yes (2) Urinary tract infection Qualifiers: Urinary tract infection type: site unspecified Hematuria presence: without hematuria Qualified Code(s): N39.0 - Urinary tract infection, site not specified Is this a current diagnosis for this admission?: Yes (3) UTI due to Klebsiella species Is this a current diagnosis for this admission?: Yes (4) Anemia Qualifiers: Anemia type: other cause Other causes of anemia: other cause, not classified Qualified Code(s): D64.89 - Other specified anemias Plan: She will be transfused with 2 units of packed red blood cells
[2017-03-12] MEDS: HYDROMORPHONE HCL INJ/PF 2 MG/ML AMPULE IV PRN ×6 (01:09→22:16)
[2017-03-12] MEDS: ONDANSETRON HCL INJ/PF 4 MG/2 ML SDV IV PRN ×3 (01:10→18:10)
[2017-03-12] MEDS: DIPHENHYDRAMINE HCL 25 MG CAPSULE PO PRN (04:03)
[2017-03-12] MEDS: OXYCODONE HCL IR 5 MG TABLET PO PRN (04:03)
[2017-03-12] MEDS: GABAPENTIN 300 MG CAPSULE PO SCH ×3 (05:04→22:16)
[2017-03-12] MEDS: DIPHENHYDRAMINE HCL 50 MG/ML VIAL IV PRN ×3 (05:04→22:16)
[2017-03-12] MEDS: OXYCODONE HCL SR 40 MG TABLET PO SCH ×3 (05:05→23:32)
[2017-03-12 05:59] LABS: HEMATOCRIT 25.4 % (36.0-47.0); HGB HCT DIFFERENCE 1.6; MEAN CORPUSCULAR HEMOGLOBIN 37.1 pg (27.0-33.4); MEAN CORPUSCULAR HGB CONC 35.6 g/dL (32.0-36.0); RED BLOOD COUNT 2.44 10^6/uL (3.72-5.28); RED CELL DISTRIBUTION WIDTH 25.6 % (11.5-14.0)
[2017-03-12 06:21] LABS: MEAN CORPUSCULAR VOLUME 104 fl (80-97); WHITE BLOOD COUNT 5.1 10^3/uL (4.0-10.5)
[2017-03-12] MEDS: DULOXETINE HCL 20 MG CAPSULE.DR PO SCH (09:26)
[2017-03-12] MEDS: FOLIC ACID 1 MG TABLET PO SCH (09:26)
[2017-03-12] MEDS: HYDROXYUREA 500 MG CAPSULE PO SCH ×2 (09:26→22:16)
[2017-03-12] MEDS: POTASSI CL 40 MEQ/D5-1/2NS 1L 40 MEQ/1,000 ML RTUINJ IV PRN (09:36)
--- NOTE | 2017-03-12 11:11 | PDOC PROGRESS REPORT ---
Subjective Progress Note for:: 03/12/17 Subjective:: Patient is currently doing much better. Patient's potassium is little high patient is currently taking the IV fluid with the potassiums. Patient also received 2 units of the blood yesterday hemoglobin is about 9. Patient still complaining of hand pain and leg pain Physical Exam Vital Signs: Temp Pulse Resp BP Pulse Ox 98.9 F 79 16 103/56 L 93 03/12/17 06:32 03/12/17 06:32 03/12/17 06:32 03/12/17 06:32 03/12/17 06:32 Intake & Output 03/11/17 03/12/17 03/13/17 06:59 06:59 06:59 Intake Total 5580 3030 Output Total 4300 1200 Balance 1280 1830 General appearance: PRESENT: no acute distress, well-developed, well-nourished Head exam: PRESENT: atraumatic, normocephalic Eye exam: PRESENT: conjunctiva pink, EOMI, PERRLA. ABSENT: scleral icterus Ear exam: PRESENT: normal external ear exam Mouth exam: PRESENT: moist, tongue midline Neck exam: PRESENT: full ROM. ABSENT: carotid bruit, JVD, lymphadenopathy, thyromegaly Respiratory exam: PRESENT: clear to auscultation carolyn Cardiovascular exam: PRESENT: RRR. ABSENT: diastolic murmur, rubs, systolic murmur Pulses: PRESENT: normal dorsalis pedis pul, +2 pedal pulses bilateral Vascular exam: PRESENT: normal capillary refill GI/Abdominal exam: PRESENT: normal bowel sounds, soft. ABSENT: distended, guarding, mass, organolmegaly, rebound, tenderness Rectal exam: PRESENT: deferred Neurological exam: PRESENT: alert, awake, oriented to person, oriented to place , oriented to time, oriented to situation, CN II-XII grossly intact. ABSENT: motor sensory deficit Psychiatric exam: PRESENT: appropriate affect, normal mood. ABSENT: homicidal ideation, suicidal ideation Skin exam: PRESENT: dry, intact, warm. ABSENT: cyanosis, rash Results Laboratory Results: 03/12/17 05:05 03/11/17 11:20 03/11/17 03/11/17 03/12/17 11:20 11:20 05:05 WBC 5.1 RBC 2.44 L Hgb 9.0 L D Hct 25.4 L MCV 104 H D MCH 37.1 H MCHC 35.6 RDW 25.6 H Plt Count 200 Sodium 136.9 L Potassium 5.3 H Chloride 100 Carbon Dioxide 26 Anion Gap 11 BUN 13 Creatinine 0.85 Est GFR ( Amer) > 60 Est GFR (Non-Af Amer) > 60 Glucose 89 Calcium 9.4 Blood Type O POSITIVE Antibody Screen NEGATIVE Assessment & Plan - Diagnosis (1) Sickle cell disease with crisis Is this a current diagnosis for this admission?: Yes (2) UTI due to Klebsiella species Is this a current diagnosis for this admission?: Yes (3) Anemia Qualifiers: Anemia type: other cause Other causes of anemia: other cause, not classified Qualified Code(s): D64.89 - Other specified anemias - Time Time Spent with patient: 15-24 minutes Medications reviewed and adjusted accordingly: Yes Within: Other - Inpatient Certification Medical Necessity: Need For IV Fluids Post Hospital Care: D/C Resident Care Spec Documentation - Plan Summary Plan Summary: cont current medications. The IV fluid with the potassiums and started on D5 one half normal saline
[2017-03-12] MEDS: DEXTROSE 5%-1/2 NORMAL SALINE 1,000 ML IV PRN (11:34)
[2017-03-12] MEDS ORDERED: CIPROFLOXACIN HCL 500 MG TABLET PO ONE (12:00)
[2017-03-12] MEDS: RIVAROXABAN 10 MG TABLET PO SCH (17:48)
[2017-03-12] MEDS: CIPROFLOXACIN HCL 500 MG TABLET PO SCH (23:31)
[2017-03-13] MEDS: ONDANSETRON HCL INJ/PF 4 MG/2 ML SDV IV PRN ×3 (03:28→19:45)
[2017-03-13] MEDS: HYDROMORPHONE HCL INJ/PF 2 MG/ML AMPULE IV PRN ×6 (03:28→23:49)
[2017-03-13] MEDS: DEXTROSE 5%-1/2 NORMAL SALINE 1,000 ML IV PRN ×2 (03:35→17:14)
[2017-03-13] MEDS: OXYCODONE HCL SR 40 MG TABLET PO SCH ×3 (05:38→21:16)
[2017-03-13] MEDS: GABAPENTIN 300 MG CAPSULE PO SCH ×3 (05:38→21:16)
[2017-03-13 07:13] LABS: HEMATOCRIT 25.6 % (36.0-47.0); HGB HCT DIFFERENCE 1.4; MEAN CORPUSCULAR HEMOGLOBIN 37.4 pg (27.0-33.4); MEAN CORPUSCULAR HGB CONC 35.3 g/dL (32.0-36.0); MEAN CORPUSCULAR VOLUME 106 fl (80-97); RED BLOOD COUNT 2.42 10^6/uL (3.72-5.28); RED CELL DISTRIBUTION WIDTH 28.6 % (11.5-14.0); WHITE BLOOD COUNT 4.2 10^3/uL (4.0-10.5)
[2017-03-13 07:16] LABS: ANION GAP 9 (5-19); BLOOD UREA NITROGEN 12 mg/dL (7-20); CARBON DIOXIDE 30 mmol/L (22-30); CHLORIDE 98 mmol/L (98-107); CREATININE RESULT 0.85 mg/dL (0.52-1.25); GLUCOSE 99 mg/dL (75-110); POTASSIUM 4.6 mmol/L (3.6-5.0); SODIUM 137.1 mmol/L (137-145)
[2017-03-13] MEDS: DIPHENHYDRAMINE HCL 50 MG/ML VIAL IV PRN ×3 (07:38→23:49)
[2017-03-13] MEDS: FOLIC ACID 1 MG TABLET PO SCH (09:03)
[2017-03-13] MEDS: HYDROXYUREA 500 MG CAPSULE PO SCH ×2 (09:04→21:15)
[2017-03-13] MEDS: CIPROFLOXACIN HCL 500 MG TABLET PO SCH ×2 (09:04→21:16)
[2017-03-13] MEDS: DULOXETINE HCL 20 MG CAPSULE.DR PO SCH (09:04)
--- NOTE | 2017-03-13 13:19 | PDOC PROGRESS REPORT ---
Subjective Progress Note for:: 03/13/17 Subjective:: She is currently doing much better. Still complaining some leg and hand pain but other than that no other events happens Physical Exam Vital Signs: Temp Pulse Resp BP Pulse Ox 98.6 F 81 18 99/54 L 93 03/13/17 11:27 03/13/17 11:27 03/13/17 11:27 03/13/17 11:27 03/13/17 11:27 Intake & Output 03/12/17 03/13/17 03/14/17 06:59 06:59 06:59 Intake Total 3030 3935 Output Total 1200 2700 Balance 1830 1235 General appearance: PRESENT: no acute distress, well-developed, well-nourished Head exam: PRESENT: atraumatic, normocephalic Eye exam: PRESENT: conjunctiva pink, EOMI, PERRLA. ABSENT: scleral icterus Ear exam: PRESENT: normal external ear exam Mouth exam: PRESENT: moist, tongue midline Neck exam: PRESENT: full ROM. ABSENT: carotid bruit, JVD, lymphadenopathy, thyromegaly Respiratory exam: PRESENT: clear to auscultation carolyn Cardiovascular exam: PRESENT: RRR. ABSENT: diastolic murmur, rubs, systolic murmur Pulses: PRESENT: normal dorsalis pedis pul, +2 pedal pulses bilateral Vascular exam: PRESENT: normal capillary refill GI/Abdominal exam: PRESENT: normal bowel sounds, soft. ABSENT: distended, guarding, mass, organolmegaly, rebound, tenderness Rectal exam: PRESENT: deferred Neurological exam: PRESENT: alert, awake, oriented to person, oriented to place , oriented to time, oriented to situation, CN II-XII grossly intact. ABSENT: motor sensory deficit Psychiatric exam: PRESENT: appropriate affect, normal mood. ABSENT: homicidal ideation, suicidal ideation Skin exam: PRESENT: dry, intact, warm. ABSENT: cyanosis, rash Results Laboratory Results: 03/13/17 06:10 03/13/17 06:10 03/12/17 03/13/17 03/13/17 23:35 06:10 06:10 WBC 4.2 RBC 2.42 L Hgb 9.0 L Hct 25.6 L MCV 106 H MCH 37.4 H MCHC 35.3 RDW 28.6 H Plt Count 200 Sodium 137.1 Potassium 4.6 Chloride 98 Carbon Dioxide 30 Anion Gap 9 BUN 12 Creatinine 0.85 Est GFR ( Amer) > 60 Est GFR (Non-Af Amer) > 60 Glucose 99 Calcium 9.0 Stool Occult Blood NEGATIVE Assessment & Plan - Diagnosis (1) Sickle cell disease with crisis Is this a current diagnosis for this admission?: Yes Plan: continue IV fluid (2) UTI due to Klebsiella species Is this a current diagnosis for this admission?: Yes Plan: Continues p.o. 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
[2017-03-13] MEDS: RIVAROXABAN 10 MG TABLET PO SCH (17:12)
[2017-03-14] MEDS: ONDANSETRON HCL INJ/PF 4 MG/2 ML SDV IV PRN ×3 (04:07→19:59)
[2017-03-14] MEDS: HYDROMORPHONE HCL INJ/PF 2 MG/ML AMPULE IV PRN ×6 (04:07→23:47)
[2017-03-14] MEDS: GABAPENTIN 300 MG CAPSULE PO SCH ×3 (05:20→21:36)
[2017-03-14] MEDS: OXYCODONE HCL SR 40 MG TABLET PO SCH ×3 (05:20→21:36)
[2017-03-14 06:26] LABS: ANION GAP 8 (5-19); BLOOD UREA NITROGEN 13 mg/dL (7-20); CALCIUM 9.1 mg/dL (8.4-10.2); CARBON DIOXIDE 28 mmol/L (22-30); CHLORIDE 102 mmol/L (98-107); CREATININE RESULT 0.82 mg/dL (0.52-1.25); GLUCOSE 83 mg/dL (75-110); POTASSIUM 4.3 mmol/L (3.6-5.0); SODIUM 138.2 mmol/L (137-145)
[2017-03-14] MEDS: DIPHENHYDRAMINE HCL 50 MG/ML VIAL IV PRN ×3 (07:58→23:47)
[2017-03-14] MEDS: CIPROFLOXACIN HCL 500 MG TABLET PO SCH ×2 (09:47→21:36)
[2017-03-14] MEDS: FOLIC ACID 1 MG TABLET PO SCH (09:47)
[2017-03-14] MEDS: DULOXETINE HCL 20 MG CAPSULE.DR PO SCH (09:47)
[2017-03-14] MEDS: HYDROXYUREA 500 MG CAPSULE PO SCH ×2 (09:47→21:36)
[2017-03-14] MEDS: DEXTROSE 5%-1/2 NORMAL SALINE 1,000 ML IV PRN (09:49)
[2017-03-14 13:31] LABS: HEMATOCRIT 25.4 % (36.0-47.0); HEMOGLOBIN 9.1 g/dL (12.0-15.5); HGB HCT DIFFERENCE 1.9; MEAN CORPUSCULAR HEMOGLOBIN 38.4 pg (27.0-33.4); MEAN CORPUSCULAR HGB CONC 35.9 g/dL (32.0-36.0); MEAN CORPUSCULAR VOLUME 107 fl (80-97); RED BLOOD COUNT 2.38 10^6/uL (3.72-5.28); WHITE BLOOD COUNT 4.1 10^3/uL (4.0-10.5)
[2017-03-14] MEDS: RIVAROXABAN 10 MG TABLET PO SCH (17:18)
--- NOTE | 2017-03-14 21:53 | PDOC PROGRESS REPORT ---
Subjective Progress Note for:: 03/14/17 Subjective:: The hemoglobin is 6.4, patient was seen by the bedside, there is no new complaints Physical Exam Vital Signs: Temp Pulse Resp BP Pulse Ox 98.8 F 78 19 95/63 L 97 03/14/17 20:00 03/14/17 20:00 03/14/17 20:00 03/14/17 20:00 03/14/17 20:00 Intake & Output 03/13/17 03/14/17 03/15/17 06:59 06:59 06:59 Intake Total 3935 4171 2079 Output Total 2700 3200 1500 Balance 1235 971 579 General appearance: PRESENT: mild distress Eye exam: PRESENT: PERRLA Respiratory exam: PRESENT: clear to auscultation carolyn Cardiovascular exam: PRESENT: +S1, +S2 GI/Abdominal exam: PRESENT: soft Results Laboratory Results: 03/14/17 06:07 03/14/17 06:07 03/14/17 03/14/17 06:07 06:07 WBC 4.1 RBC 2.38 L Hgb 9.1 L Hct 25.4 L MCV 107 H MCH 38.4 H MCHC 35.9 RDW 28.0 H Plt Count 172 Sodium 138.2 Potassium 4.3 Chloride 102 Carbon Dioxide 28 Anion Gap 8 BUN 13 Creatinine 0.82 Est GFR ( Amer) > 60 Est GFR (Non-Af Amer) > 60 Glucose 83 Calcium 9.1 Assessment & Plan - Diagnosis (1) Sickle cell disease with crisis Is this a current diagnosis for this admission?: Yes (2) Urinary tract infection Qualifiers: Urinary tract infection type: site unspecified Hematuria presence: without hematuria Qualified Code(s): N39.0 - Urinary tract infection, site not specified Is this a current diagnosis for this admission?: Yes (3) UTI due to Klebsiella species Is this a current diagnosis for this admission?: Yes (4) Anemia Qualifiers: Anemia type: other cause Other causes of anemia: other cause, not classified Qualified Code(s): D64.89 - Other specified anemias Is this a current diagnosis for this admission?: Yes
[2017-03-15] MEDS: HYDROMORPHONE HCL INJ/PF 2 MG/ML AMPULE IV PRN ×5 (03:47→20:48)
[2017-03-15] MEDS: ONDANSETRON HCL INJ/PF 4 MG/2 ML SDV IV PRN ×3 (03:47→20:48)
[2017-03-15] MEDS: OXYCODONE HCL SR 40 MG TABLET PO SCH ×3 (05:25→21:16)
[2017-03-15] MEDS: GABAPENTIN 300 MG CAPSULE PO SCH ×3 (05:25→21:17)
[2017-03-15 06:16] LABS: ANION GAP 8 (5-19); BLOOD UREA NITROGEN 14 mg/dL (7-20); CALCIUM 9.2 mg/dL (8.4-10.2); CARBON DIOXIDE 28 mmol/L (22-30); CHLORIDE 102 mmol/L (98-107); CREATININE RESULT 0.86 mg/dL (0.52-1.25); GLUCOSE 116 mg/dL (75-110); POTASSIUM 4.1 mmol/L (3.6-5.0); SODIUM 138.1 mmol/L (137-145)
[2017-03-15 07:32] LABS: HEMATOCRIT 25.3 % (36.0-47.0); HEMOGLOBIN 9.1 g/dL (12.0-15.5); MEAN CORPUSCULAR HEMOGLOBIN 38.6 pg (27.0-33.4); MEAN CORPUSCULAR HGB CONC 35.8 g/dL (32.0-36.0); MEAN CORPUSCULAR VOLUME 108 fl (80-97); RED BLOOD COUNT 2.35 10^6/uL (3.72-5.28); RED CELL DISTRIBUTION WIDTH 28.3 % (11.5-14.0)
[2017-03-15] MEDS: DIPHENHYDRAMINE HCL 50 MG/ML VIAL IV PRN ×2 (07:47→16:45)
[2017-03-15 07:57] LABS: WHITE BLOOD COUNT 3.3 10^3/uL (4.0-10.5)
[2017-03-15] MEDS: DULOXETINE HCL 20 MG CAPSULE.DR PO SCH (09:28)
[2017-03-15] MEDS: CIPROFLOXACIN HCL 500 MG TABLET PO SCH ×2 (09:28→21:16)
[2017-03-15] MEDS: HYDROXYUREA 500 MG CAPSULE PO SCH ×2 (09:29→21:16)
[2017-03-15] MEDS: FOLIC ACID 1 MG TABLET PO SCH (09:29)
[2017-03-15] MEDS: RIVAROXABAN 10 MG TABLET PO SCH (17:58)
--- NOTE | 2017-03-15 21:27 | PDOC PROGRESS REPORT ---
Subjective Progress Note for:: 03/15/17 Subjective:: She continues to complain of pain Physical Exam Vital Signs: Temp Pulse Resp BP Pulse Ox 99.1 F 77 16 101/55 L 95 03/15/17 19:56 03/15/17 19:56 03/15/17 19:56 03/15/17 19:56 03/15/17 19:56 Intake & Output 03/14/17 03/15/17 03/16/17 06:59 06:59 06:59 Intake Total 4171 3719 2531 Output Total 3200 3150 1300 Balance 179 988 2167 General appearance: PRESENT: mild distress Eye exam: PRESENT: PERRLA Respiratory exam: PRESENT: clear to auscultation carolyn Cardiovascular exam: PRESENT: +S1, +S2 GI/Abdominal exam: PRESENT: soft Results Laboratory Results: 03/15/17 05:47 03/15/17 05:47 03/15/17 03/15/17 03/15/17 05:47 05:47 10:00 WBC 3.3 L RBC 2.35 L Hgb 9.1 L Hct 25.3 L MCV 108 H MCH 38.6 H MCHC 35.8 RDW 28.3 H Plt Count 170 Sodium 138.1 Potassium 4.1 Chloride 102 Carbon Dioxide 28 Anion Gap 8 BUN 14 Creatinine 0.86 Est GFR ( Amer) > 60 Est GFR (Non-Af Amer) > 60 Glucose 116 H Calcium 9.2 Stool Occult Blood NEGATIVE Assessment & Plan - Diagnosis (1) Sickle cell disease with crisis Is this a current diagnosis for this admission?: Yes (2) Urinary tract infection Qualifiers: Urinary tract infection type: site unspecified Hematuria presence: without hematuria Qualified Code(s): N39.0 - Urinary tract infection, site not specified Is this a current diagnosis for this admission?: Yes (3) UTI due to Klebsiella species Is this a current diagnosis for this admission?: Yes (4) Anemia Qualifiers: Anemia type: other cause Other causes of anemia: other cause, not classified Qualified Code(s): D64.89 - Other specified anemias Is this a current diagnosis for this admission?: Yes
[2017-03-16] MEDS: DIPHENHYDRAMINE HCL 50 MG/ML VIAL IV PRN ×3 (00:56→17:39)
[2017-03-16] MEDS: HYDROMORPHONE HCL INJ/PF 2 MG/ML AMPULE IV PRN ×6 (00:56→22:07)
[2017-03-16] MEDS: ONDANSETRON HCL INJ/PF 4 MG/2 ML SDV IV PRN ×3 (05:13→22:07)
[2017-03-16] MEDS: OXYCODONE HCL SR 40 MG TABLET PO SCH ×3 (05:13→22:07)
[2017-03-16] MEDS: GABAPENTIN 300 MG CAPSULE PO SCH ×3 (05:13→22:07)
[2017-03-16] MEDS: DEXTROSE 5%-1/2 NORMAL SALINE 1,000 ML IV PRN (05:24)
[2017-03-16 06:29] LABS: HEMATOCRIT 16.6 % (36.0-47.0); HGB HCT DIFFERENCE 0.8; MEAN CORPUSCULAR HEMOGLOBIN 37.6 pg (27.0-33.4); MEAN CORPUSCULAR HGB CONC 34.6 g/dL (32.0-36.0); MEAN CORPUSCULAR VOLUME 109 fl (80-97); RED BLOOD COUNT 1.53 10^6/uL (3.72-5.28); RED CELL DISTRIBUTION WIDTH 28.2 % (11.5-14.0); WHITE BLOOD COUNT 2.8 10^3/uL (4.0-10.5)
[2017-03-16 07:09] LABS: HEMOGLOBIN 5.8 g/dL (12.0-15.5)
[2017-03-16] MEDS: DULOXETINE HCL 20 MG CAPSULE.DR PO SCH (09:30)
[2017-03-16] MEDS: HYDROXYUREA 500 MG CAPSULE PO SCH ×2 (09:30→22:07)
[2017-03-16] MEDS: FOLIC ACID 1 MG TABLET PO SCH (09:30)
[2017-03-16] MEDS: CIPROFLOXACIN HCL 500 MG TABLET PO SCH ×2 (09:30→22:06)
[2017-03-16 15:51] LABS: HEMATOCRIT 26.1 % (36.0-47.0); HGB HCT DIFFERENCE 1.2; MEAN CORPUSCULAR HEMOGLOBIN 37.5 pg (27.0-33.4); MEAN CORPUSCULAR HGB CONC 34.9 g/dL (32.0-36.0); MEAN CORPUSCULAR VOLUME 107 fl (80-97); RED BLOOD COUNT 2.43 10^6/uL (3.72-5.28); RED CELL DISTRIBUTION WIDTH 28.2 % (11.5-14.0)
[2017-03-16 15:54] LABS: HEMOGLOBIN 9.1 g/dL (12.0-15.5)
[2017-03-16 16:26] LABS: BASOPHILS % (MANUAL) 0 % (0-2); EOSINOPHILS % (MANUAL) 7 % (0-6); LYMPHOCYTES % (MANUAL) 52 % (13-45); NUCLEATED RED BLOOD CELLS 22 /100 WBC (0); TOTAL CELLS COUNTED 100
[2017-03-16 16:30] LABS: POLYCHROMASIA SLIGHT
[2017-03-16 16:31] LABS: ANISOCYTOSIS 3+; OVALOCYTES 1+; POIKILOCYTOSIS 1+; SCHISTOCYTES 1+; TARGET CELLS 1+; TEAR DROP CELLS SLIGHT
[2017-03-16 16:32] LABS: PLATELET CLUMPS PRESENT; TOXIC GRANULATION SLIGHT
[2017-03-16 16:34] LABS: WHITE BLOOD COUNT 3.2 10^3/uL (4.0-10.5)
--- NOTE | 2017-03-16 17:20 | PDOC PROGRESS REPORT ---
Subjective Progress Note for:: 03/16/17 Subjective:: I received a call from the RN on the floor this morning that patient hemoglobin was 5.8, a repeat that was done this afternoon came back as 9.1 suggesting that the hemoglobin from this morning was erroneous, the blood was probably drawn from IV sites where the fluid was. She continued to decline of pain despite the fact that she has been on pain medication since admission Physical Exam Vital Signs: Temp Pulse Resp BP Pulse Ox 98.7 F 73 16 94/55 L 96 03/16/17 15:33 03/16/17 15:33 03/16/17 15:33 03/16/17 15:33 03/16/17 15:33 Intake & Output 03/15/17 03/16/17 03/17/17 06:59 06:59 06:59 Intake Total 3719 4381 1240 Output Total 3150 3900 700 Balance 569 481 540 General appearance: PRESENT: no acute distress, well-developed, well-nourished Head exam: PRESENT: atraumatic, normocephalic Eye exam: PRESENT: PERRLA. ABSENT: scleral icterus Ear exam: PRESENT: normal external ear exam Mouth exam: PRESENT: moist, tongue midline Neck exam: PRESENT: full ROM Cardiovascular exam: PRESENT: RRR, +S1, +S2 Pulses: PRESENT: normal dorsalis pedis pul, +2 pedal pulses bilateral Vascular exam: PRESENT: normal capillary refill GI/Abdominal exam: PRESENT: normal bowel sounds, soft Rectal exam: PRESENT: deferred Neurological exam: PRESENT: alert, awake, oriented to person, oriented to place , oriented to time, oriented to situation, CN II-XII grossly intact Psychiatric exam: PRESENT: appropriate affect, normal mood Skin exam: PRESENT: dry, intact, warm Results Laboratory Results: 03/16/17 15:40 03/15/17 05:47 03/16/17 03/16/17 03/16/17 05:56 14:20 15:40 WBC 2.8 L Cancelled 3.2 L RBC 1.53 L Cancelled 2.43 L Hgb 5.8 L D Cancelled 9.1 L D Hct 16.6 L Cancelled 26.1 L MCV 109 H Cancelled 107 H MCH 37.6 H Cancelled 37.5 H MCHC 34.6 Cancelled 34.9 RDW 28.2 H Cancelled 28.2 H Plt Count 106 L Cancelled 171 Seg Neutrophils % Cancelled Not Reportable Lymphocytes % Cancelled Not Reportable Monocytes % Cancelled Not Reportable Eosinophils % Cancelled Not Reportable Basophils % Cancelled Not Reportable Absolute Neutrophils Cancelled Not Reportable Absolute Lymphocytes Cancelled Not Reportable Absolute Monocytes Cancelled Not Reportable Absolute Eosinophils Cancelled Not Reportable Absolute Basophils Cancelled Not Reportable Assessment & Plan - Diagnosis (1) Sickle cell disease with crisis Is this a current diagnosis for this admission?: Yes (2) Urinary tract infection Qualifiers: Urinary tract infection type: site unspecified Hematuria presence: without hematuria Qualified Code(s): N39.0 - Urinary tract infection, site not specified Is this a current diagnosis for this admission?: Yes (3) UTI due to Klebsiella species Is this a current diagnosis for this admission?: Yes (4) Anemia Qualifiers: Anemia type: other cause Other causes of anemia: other cause, not classified Qualified Code(s): D64.89 - Other specified anemias Is this a current diagnosis for this admission?: Yes
[2017-03-16] MEDS: RIVAROXABAN 10 MG TABLET PO SCH (17:39)
[2017-03-17] MEDS: DIPHENHYDRAMINE HCL 50 MG/ML VIAL IV PRN ×3 (02:04→18:34)
[2017-03-17] MEDS: HYDROMORPHONE HCL INJ/PF 2 MG/ML AMPULE IV PRN ×6 (02:04→22:35)
[2017-03-17] MEDS: GABAPENTIN 300 MG CAPSULE PO SCH ×3 (05:59→21:51)
[2017-03-17] MEDS: OXYCODONE HCL SR 40 MG TABLET PO SCH ×3 (05:59→21:51)
[2017-03-17] MEDS: ONDANSETRON HCL INJ/PF 4 MG/2 ML SDV IV PRN ×2 (05:59→22:35)
[2017-03-17 06:17] LABS: HEMATOCRIT 25.1 % (36.0-47.0); HEMOGLOBIN 8.7 g/dL (12.0-15.5); MEAN CORPUSCULAR HEMOGLOBIN 37.3 pg (27.0-33.4); MEAN CORPUSCULAR HGB CONC 34.7 g/dL (32.0-36.0); MEAN CORPUSCULAR VOLUME 107 fl (80-97); RED BLOOD COUNT 2.34 10^6/uL (3.72-5.28); RED CELL DISTRIBUTION WIDTH 27.8 % (11.5-14.0)
[2017-03-17] MEDS: DULOXETINE HCL 20 MG CAPSULE.DR PO SCH (10:20)
[2017-03-17] MEDS: CIPROFLOXACIN HCL 500 MG TABLET PO SCH ×2 (10:20→21:51)
[2017-03-17] MEDS: FOLIC ACID 1 MG TABLET PO SCH (10:20)
[2017-03-17] MEDS: HYDROXYUREA 500 MG CAPSULE PO SCH ×2 (10:20→21:51)
[2017-03-17] MEDS: RIVAROXABAN 10 MG TABLET PO SCH (18:34)
--- NOTE | 2017-03-17 18:56 | PDOC PROGRESS REPORT ---
Subjective Progress Note for:: 03/17/17 Subjective:: I received a call from the RN on the floor this morning that patient hemoglobin was 5.8, a repeat that was done this afternoon came back as 9.1 suggesting that the hemoglobin from this morning was erroneous, the blood was probably drawn from IV sites where the fluid was. She continued to decline of pain despite the fact that she has been on pain medication since admission Physical Exam Vital Signs: Temp Pulse Resp BP Pulse Ox 98.7 F 77 17 100/54 L 96 03/17/17 15:36 03/17/17 15:36 03/17/17 15:36 03/17/17 15:36 03/17/17 15:36 Intake & Output 03/16/17 03/17/17 03/18/17 06:59 06:59 06:59 Intake Total 4381 3190 600 Output Total 3900 1120 Balance 481 2070 600 Weight 61.7 kg General appearance: PRESENT: mild distress Head exam: PRESENT: atraumatic, normocephalic Eye exam: PRESENT: conjunctiva pink, EOMI, PERRLA Ear exam: PRESENT: normal external ear exam Mouth exam: PRESENT: moist, tongue midline Neck exam: PRESENT: full ROM Respiratory exam: PRESENT: clear to auscultation carolyn Cardiovascular exam: PRESENT: RRR, +S1, +S2 Pulses: PRESENT: normal dorsalis pedis pul, +2 pedal pulses bilateral Vascular exam: PRESENT: normal capillary refill GI/Abdominal exam: PRESENT: normal bowel sounds, soft Rectal exam: PRESENT: deferred Neurological exam: PRESENT: alert, awake, oriented to person, oriented to place , oriented to time, oriented to situation, CN II-XII grossly intact. ABSENT: motor sensory deficit Psychiatric exam: PRESENT: appropriate affect, normal mood. ABSENT: homicidal ideation, suicidal ideation Skin exam: PRESENT: dry, intact, warm. ABSENT: cyanosis, rash Results Laboratory Results: 03/17/17 05:58 03/15/17 05:47 03/17/17 05:58 WBC 4.2 RBC 2.34 L Hgb 8.7 L Hct 25.1 L MCV 107 H MCH 37.3 H MCHC 34.7 RDW 27.8 H Plt Count 153 Assessment & Plan - Diagnosis (1) Sickle cell disease with crisis Is this a current diagnosis for this admission?: Yes (2) Urinary tract infection Qualifiers: Urinary tract infection type: site unspecified Hematuria presence: without hematuria Qualified Code(s): N39.0 - Urinary tract infection, site not specified Is this a current diagnosis for this admission?: Yes (3) UTI due to Klebsiella species Is this a current diagnosis for this admission?: Yes (4) Anemia Qualifiers: Anemia type: other cause Other causes of anemia: other cause, not classified Qualified Code(s): D64.89 - Other specified anemias Is this a current diagnosis for this admission?: Yes
[2017-03-18] MEDS: HYDROMORPHONE HCL INJ/PF 2 MG/ML AMPULE IV PRN ×5 (02:33→19:44)
[2017-03-18] MEDS: DIPHENHYDRAMINE HCL 50 MG/ML VIAL IV PRN ×3 (02:34→20:42)
[2017-03-18] MEDS: OXYCODONE HCL SR 40 MG TABLET PO SCH ×3 (05:21→21:55)
[2017-03-18] MEDS: GABAPENTIN 300 MG CAPSULE PO SCH ×3 (05:21→21:55)
[2017-03-18] MEDS: ONDANSETRON HCL INJ/PF 4 MG/2 ML SDV IV PRN ×2 (06:27→15:05)
[2017-03-18 06:50] LABS: HEMATOCRIT 25.9 % (36.0-47.0); HGB HCT DIFFERENCE 1.1; MEAN CORPUSCULAR HEMOGLOBIN 37.5 pg (27.0-33.4); MEAN CORPUSCULAR HGB CONC 34.7 g/dL (32.0-36.0); MEAN CORPUSCULAR VOLUME 108 fl (80-97); RED BLOOD COUNT 2.39 10^6/uL (3.72-5.28); RED CELL DISTRIBUTION WIDTH 28.2 % (11.5-14.0); WHITE BLOOD COUNT 4.5 10^3/uL (4.0-10.5)
[2017-03-18] MEDS ORDERED: EPOETIN ALFA INJ 40000 UNIT/1 ML (ONCOLOGY) SUBCUT SCH (10:00)
[2017-03-18] MEDS: CIPROFLOXACIN HCL 500 MG TABLET PO SCH ×2 (11:01→21:55)
[2017-03-18] MEDS: DULOXETINE HCL 20 MG CAPSULE.DR PO SCH (11:02)
[2017-03-18] MEDS: HYDROXYUREA 500 MG CAPSULE PO SCH ×2 (11:02→21:55)
[2017-03-18] MEDS: FOLIC ACID 1 MG TABLET PO SCH (11:03)
[2017-03-18 11:37] LABS: WHITE BLOOD COUNT 4.2 10^3/uL (4.0-10.5)
[2017-03-18] MEDS: RIVAROXABAN 10 MG TABLET PO SCH (17:52)
[2017-03-18] MEDS: DEXTROSE 5%-1/2 NORMAL SALINE 1,000 ML IV PRN (17:56)
--- NOTE | 2017-03-18 21:36 | PDOC PROGRESS REPORT ---
Subjective Progress Note for:: 03/18/17 Subjective:: I received a call from the RN on the floor this morning that patient hemoglobin was 5.8, a repeat that was done this afternoon came back as 9.1 suggesting that the hemoglobin from this morning was erroneous, the blood was probably drawn from IV sites where the fluid was. She continued to decline of pain despite the fact that she has been on pain medication since admission Physical Exam Vital Signs: Temp Pulse Resp BP Pulse Ox 98.8 F 74 18 97/64 L 97 03/18/17 19:07 03/18/17 19:07 03/18/17 19:07 03/18/17 19:07 03/18/17 19:07 Intake & Output 03/17/17 03/18/17 03/19/17 06:59 06:59 06:59 Intake Total 3190 2490 3942 Output Total 0986 649 9192 Balance 2070 1940 942 Weight 61.7 kg General appearance: PRESENT: no acute distress, well-developed, well-nourished Head exam: PRESENT: atraumatic, normocephalic Eye exam: PRESENT: conjunctiva pink, EOMI, PERRLA Ear exam: PRESENT: normal external ear exam Mouth exam: PRESENT: moist, tongue midline Neck exam: PRESENT: full ROM Cardiovascular exam: PRESENT: RRR, +S1, +S2 Pulses: PRESENT: normal dorsalis pedis pul, +2 pedal pulses bilateral Vascular exam: PRESENT: normal capillary refill GI/Abdominal exam: PRESENT: normal bowel sounds, soft Rectal exam: PRESENT: deferred Neurological exam: PRESENT: alert, awake, oriented to person, oriented to place , oriented to time, oriented to situation, CN II-XII grossly intact. ABSENT: motor sensory deficit Psychiatric exam: PRESENT: appropriate affect, normal mood Skin exam: PRESENT: dry, intact, warm Results Laboratory Results: 03/18/17 05:24 03/15/17 05:47 03/17/17 03/18/17 05:58 05:24 WBC 4.2 4.5 RBC 2.39 L Hgb 9.0 L Hct 25.9 L MCV 108 H MCH 37.5 H MCHC 34.7 RDW 28.2 H Plt Count 154 Assessment & Plan - Diagnosis (1) Sickle cell disease with crisis Is this a current diagnosis for this admission?: Yes (2) Urinary tract infection Qualifiers: Urinary tract infection type: site unspecified Hematuria presence: without hematuria Qualified Code(s): N39.0 - Urinary tract infection, site not specified Is this a current diagnosis for this admission?: Yes (3) UTI due to Klebsiella species Is this a current diagnosis for this admission?: Yes (4) Anemia Qualifiers: Anemia type: other cause Other causes of anemia: other cause, not classified Qualified Code(s): D64.89 - Other specified anemias Is this a current diagnosis for this admission?: Yes
[2017-03-19] MEDS: HYDROMORPHONE HCL INJ/PF 2 MG/ML AMPULE IV PRN ×6 (00:04→20:41)
[2017-03-19] MEDS: ONDANSETRON HCL INJ/PF 4 MG/2 ML SDV IV PRN ×2 (00:04→08:23)
[2017-03-19] MEDS: DIPHENHYDRAMINE HCL 50 MG/ML VIAL IV PRN ×3 (04:15→20:40)
[2017-03-19] MEDS: OXYCODONE HCL SR 40 MG TABLET PO SCH ×3 (05:06→21:43)
[2017-03-19] MEDS: GABAPENTIN 300 MG CAPSULE PO SCH ×3 (05:06→21:43)
[2017-03-19 05:44] LABS: HEMOGLOBIN 8.5 g/dL (12.0-15.5); HGB HCT DIFFERENCE 1.5; MEAN CORPUSCULAR HEMOGLOBIN 37.8 pg (27.0-33.4); MEAN CORPUSCULAR HGB CONC 35.2 g/dL (32.0-36.0); MEAN CORPUSCULAR VOLUME 107 fl (80-97); RED BLOOD COUNT 2.24 10^6/uL (3.72-5.28); RED CELL DISTRIBUTION WIDTH 27.8 % (11.5-14.0)
[2017-03-19] MEDS: DEXTROSE 5%-1/2 NORMAL SALINE 1,000 ML IV PRN ×2 (06:55→17:35)
[2017-03-19] MEDS: DULOXETINE HCL 20 MG CAPSULE.DR PO SCH (09:55)
[2017-03-19] MEDS: HYDROXYUREA 500 MG CAPSULE PO SCH ×2 (09:55→21:43)
[2017-03-19] MEDS: CIPROFLOXACIN HCL 500 MG TABLET PO SCH (09:56)
[2017-03-19] MEDS: FOLIC ACID 1 MG TABLET PO SCH (09:56)
--- NOTE | 2017-03-19 15:14 | PDOC DISCHARGE SUMMARY ---
General - Admit/Disc Date/PCP Admission Date/Primary Care Provider: 03/06/17 18:55 HOMA BARRAZA MD Discharge Date: 03/19/17 - Discharge Diagnosis (1) Sickle cell disease with crisis Is this a current diagnosis for this admission?: Yes (2) Urinary tract infection Is this a current diagnosis for this admission?: Yes (3) UTI due to Klebsiella species Is this a current diagnosis for this admission?: Yes (4) Anemia Is this a current diagnosis for this admission?: Yes (5) Opioid dependence Is this a current diagnosis for this admission?: Yes - Additional Information Discharge Diet: Regular Discharge Activity: Activity As Tolerated Home Medications: Deferasirox [Exjade] 2,500 mg PO TID 03/02/17 Duloxetine HCl [Cymbalta 20 mg Capsule.dr] 20 mg PO DAILY 03/02/17 Epoetin Federico [Procrit Inj 40,000 Unit/1 ml Vial (Oncology)] 40,000 unit SUBCUT FR@1000 03/02/17 Folic Acid [Folvite 1 mg Tablet] 1 mg PO DAILY 03/02/17 Gabapentin [Neurontin 300 mg Capsule] 300 mg PO Q8 03/02/17 Hydroxyurea [Hydrea 500 mg Capsule] 500 mg PO BID 03/02/17 Ibuprofen [Motrin 800 mg Tablet] 800 mg PO Q8 03/02/17 Oxycodone HCl 30 mg PO Q6HP PRN 03/02/17 Oxycodone HCl [Oxycontin Sr 40 mg Tablet] 40 mg PO Q8 03/02/17 Sumatriptan Succinate [Imitrex 100 mg Tablet] 100 mg PO DAILYP PRN 03/02/17 Warfarin Sodium [Coumadin 5 mg Tablet] 10 mg PO QHS 03/02/17 History of Present Illness History of Present Illness: WILLIE ALAN is a 47 year old female,She has history of sickle cell disease, she was recently admitted for sickle cell bone pain crisis she presented to the emergency room the day before she came to the office for bone pain she came to the office with complaint of bone pains. There is no apparent source of any acute infection could have trigger the bone pain crisis. The initial blood work showed a preserved bone marrow erythropoiesis the reticulocyte count is normal. There is no urine collected yet for analysis. She has multiple comorbid conditions including bone infarct, history of MRSA infection Hospital Course Hospital Course: She was admitted for the management of sickle cell disease with bone pain crisis and anemia. She was treated with IV fluid pain control was achieved with IV Dilaudid she will require blood transfusion. She also had UTI urine culture grew Klebsiella, she was treated with intravenous antibiotic, ciprofloxacin. She has a strong penchant for opioid therapy, she is on megadoses of opioid outpatient Physical Exam Vital Signs: Temp Pulse Resp BP Pulse Ox 98.2 F 77 20 103/64 97 03/19/17 12:06 03/19/17 12:06 03/19/17 12:06 03/19/17 12:06 03/19/17 12:06 Intake & Output 03/18/17 03/19/17 03/20/17 06:59 06:59 06:59 Intake Total 2490 5311 Output Total 550 4050 Balance 1940 1261 General appearance: PRESENT: no acute distress Eye exam: PRESENT: PERRLA Respiratory exam: PRESENT: clear to auscultation carolyn Cardiovascular exam: PRESENT: +S1, +S2 GI/Abdominal exam: PRESENT: soft Neurological exam: PRESENT: alert Results Laboratory Results: 03/19/17 05:00 03/15/17 05:47 03/19/17 05:00 WBC 4.0 RBC 2.24 L Hgb 8.5 L Hct 24.0 L MCV 107 H MCH 37.8 H MCHC 35.2 RDW 27.8 H Plt Count 160
[2017-03-19] MEDS: RIVAROXABAN 10 MG TABLET PO SCH (17:31)
[2017-03-20] MEDS: ONDANSETRON HCL INJ/PF 4 MG/2 ML SDV IV PRN ×3 (00:44→17:11)
[2017-03-20] MEDS: HYDROMORPHONE HCL INJ/PF 2 MG/ML AMPULE IV PRN ×6 (00:44→21:18)
[2017-03-20] MEDS: DIPHENHYDRAMINE HCL 50 MG/ML VIAL IV PRN ×3 (04:50→21:18)
[2017-03-20] MEDS: OXYCODONE HCL SR 40 MG TABLET PO SCH ×3 (05:35→21:18)
[2017-03-20] MEDS: GABAPENTIN 300 MG CAPSULE PO SCH ×3 (05:35→21:18)
[2017-03-20 05:56] LABS: HEMATOCRIT 23.9 % (36.0-47.0); HEMOGLOBIN 8.4 g/dL (12.0-15.5); HGB HCT DIFFERENCE 1.3; MEAN CORPUSCULAR HEMOGLOBIN 37.8 pg (27.0-33.4); MEAN CORPUSCULAR HGB CONC 35.2 g/dL (32.0-36.0); MEAN CORPUSCULAR VOLUME 107 fl (80-97); RED BLOOD COUNT 2.22 10^6/uL (3.72-5.28); RED CELL DISTRIBUTION WIDTH 27.4 % (11.5-14.0)
[2017-03-20] MEDS: FOLIC ACID 1 MG TABLET PO SCH (09:03)
[2017-03-20] MEDS: HYDROXYUREA 500 MG CAPSULE PO SCH ×2 (09:03→21:21)
[2017-03-20] MEDS: DULOXETINE HCL 20 MG CAPSULE.DR PO SCH (09:03)
[2017-03-20] MEDS: DEXTROSE 5%-1/2 NORMAL SALINE 1,000 ML IV PRN (11:22)
[2017-03-20] MEDS ORDERED: INFLUENZA ADLT QUAD (36MOS+) 2017-18 VAC 0.5 ML SYR IM PRN (11:24)
[2017-03-20] MEDS: RIVAROXABAN 10 MG TABLET PO SCH (17:10)
[2017-03-21] MEDS: ONDANSETRON HCL INJ/PF 4 MG/2 ML SDV IV PRN ×2 (01:59→09:52)
[2017-03-21] MEDS: DEXTROSE 5%-1/2 NORMAL SALINE 1,000 ML IV PRN (01:59)
[2017-03-21] MEDS: HYDROMORPHONE HCL INJ/PF 2 MG/ML AMPULE IV PRN ×4 (01:59→14:08)
[2017-03-21] MEDS: GABAPENTIN 300 MG CAPSULE PO SCH ×2 (06:00→14:07)
[2017-03-21] MEDS: DIPHENHYDRAMINE HCL 50 MG/ML VIAL IV PRN ×2 (06:00→14:08)
[2017-03-21] MEDS: OXYCODONE HCL SR 40 MG TABLET PO SCH ×2 (06:00→14:07)
[2017-03-21 06:01] LABS: HEMATOCRIT 24.2 % (36.0-47.0); HEMOGLOBIN 8.7 g/dL (12.0-15.5); HGB HCT DIFFERENCE 1.9; MEAN CORPUSCULAR HEMOGLOBIN 38.7 pg (27.0-33.4); MEAN CORPUSCULAR VOLUME 107 fl (80-97); RED BLOOD COUNT 2.26 10^6/uL (3.72-5.28); RED CELL DISTRIBUTION WIDTH 27.3 % (11.5-14.0); WHITE BLOOD COUNT 5.7 10^3/uL (4.0-10.5)
[2017-03-21] MEDS: HYDROXYUREA 500 MG CAPSULE PO SCH (09:53)
[2017-03-21] MEDS: FOLIC ACID 1 MG TABLET PO SCH (09:53)
[2017-03-21] MEDS: DULOXETINE HCL 20 MG CAPSULE.DR PO SCH (09:53)
[2017-03-21 10:08] LABS: APPEARANCE,URINE CLEAR; BILIRUBIN,URINE NEGATIVE (NEGATIVE); GLUCOSE, URINE NEGATIVE (NEGATIVE); KETONES,URINE NEGATIVE (NEGATIVE); LEUKOCYTE ESTERASE,URINE TRACE (NEGATIVE); NITRITE,URINE NEGATIVE (NEGATIVE); PROTEIN,URINE NEGATIVE (NEGATIVE); UROBILINOGEN,URINE NEGATIVE mg/dL (<2.0)
[2017-03-21 12:36] LABS: WHITE BLOOD COUNT 4.2 10^3/uL (4.0-10.5)
[2017-03-21 12:51] VITALS: BP 94/57
== END 2017-03-21 14:53 | disposition home or self-care (01) | DRG 812 ==
LOC: 4N 13:19 → UNDOADMOB 13:19 → OBSVTOIN 03-06 18:55 → 4N 03-06 18:55 → INTOOBSV 03-06 18:55 → 4S 03-16 18:11
PROVIDERS: ADMIT Internal Medicine; ATTEND Internal Medicine
PROC: 30233N1 Transfusion of Nonautologous Red Blood Cells into Peripheral Vein, Percutaneous Approach (ICD-10-PCS; principal; 2017-03-11)
DX: D57.00 Hb-SS disease with crisis, unspecified (principal); N39.0 Urinary tract infection, site not specified; F11.20 Opioid dependence, uncomplicated; B96.1 Klebsiella pneumoniae [K. pneumoniae] as the cause of diseases classified elsewhere; Z86.14 Personal history of Methicillin resistant Staphylococcus aureus infection; Z90.49 Acquired absence of other specified parts of digestive tract; Z79.02 Long term (current) use of antithrombotics/antiplatelets; Z79.899 Other long term (current) drug therapy; Z88.3 Allergy status to other anti-infective agents; Z86.711 Personal history of pulmonary embolism; Z88.6 Allergy status to analgesic agent
CPT/HCPCS: 36415; 36430; 80048; 81001; 82272; 82962; 84443; 85025; 85027; 85045; 85610; 86850; 86900; 86901; 86920; 87040; 87086; 87088; 87186; G0378; G0379; J0744; J0885; J1170; J1200; J2405; J3480; J3490; J7030; P9016

== ENCOUNTER 2017-08-04 13:34 | Inpatient (IN) | payer MEDICAID ==
[2017-08-04] MEDS ORDERED: NORMAL SALINE 1000 ML 1,000 ML IV PRN (14:54)
[2017-08-04] MEDS ORDERED: ONDANSETRON HCL INJ/PF 4 MG/2 ML SDV IV ONE ×2 (14:56→20:51)
[2017-08-04] MEDS ORDERED: HYDROMORPHONE HCL INJ/PF 2 MG/ML AMPULE IV ONE ×4 (14:56→20:51)
--- NOTE | 2017-08-04 14:56 | ER Document Report ---
ED Medical Screen (RME) - General Chief Complaint: Chest Pain Stated Complaint: CHEST PAIN Time Seen by Provider: 08/04/17 14:54 Mode of Arrival: Ambulatory Information source: Patient Notes: This is a 47-year-old female with a history of sickle cell disease who presents with sickle crisis. She has pain to the arms, legs and back. Past medical history: Sickle cell disease, PE Medications: Hydroxyurea, folate, oxycodone, OxyContin, Procrit, ibuprofen TRAVEL OUTSIDE OF THE [place] IN LAST 30 DAYS: No - Related Data Allergies/Adverse Reactions: doxycycline [Doxycycline] Allergy (Severe, Verified 03/02/17 20:20) Past Medical History - Social History Frequency of alcohol use: None Drug Abuse: None - Past Medical History Cardiac Medical History: Reports: Hx Heart Murmur Denies: Hx Atrial Fibrillation, Hx Congestive Heart Failure, Hx Coronary Artery Disease, Hx Heart Attack, Hx Hypercholesterolemia, Hx Hypertension, Hx Peripheral Vascular Disease Pulmonary Medical History: Denies: Hx Tuberculosis Neurological Medical History: Denies: Hx Seizures Renal/ Medical History: Reports: Hx Ovarian Cysts. 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 Denies: Hx HIV Past Surgical History: Reports: Hx Appendectomy, Hx Section, Hx Cholecystectomy, Hx Orthopedic Surgery - R knee, Hx Tonsillectomy. Denies: Hx Bowel Surgery, Hx Coronary Artery Bypass Graft, Hx Gastric Bypass Surgery, Hx Herniorrhaphy, Hx Mastectomy, Hx Pacemaker, Hx Tubal Ligation - Immunizations Immunizations up to date: Yes Hx Diphtheria, Pertussis, Tetanus Vaccination: Yes History of Influenza Vaccine for 03/2017 - 08/2017 Season: No Physical Exam - Vital signs Vitals: Temp Pulse Resp BP Pulse Ox 99.0 F 77 20 94/58 L 96 08/04/17 14:19 08/04/17 14:19 08/04/17 14:19 08/04/17 14:19 08/04/17 14:19 Course - Vital Signs Vital signs: Temp Pulse Resp BP Pulse Ox 99.0 F 77 20 94/58 L 96 08/04/17 14:19 08/04/17 14:19 08/04/17 14:19 08/04/17 14:19 08/04/17 14:19
--- NOTE | 2017-08-04 15:08 | ER Document Report ---
ED General - General Chief Complaint: Chest Pain Stated Complaint: CHEST PAIN Time Seen by Provider: 08/04/17 14:54 Mode of Arrival: Ambulatory Notes: The patient is a 47-year-old female, past medical history sickle cell disease, PE (on Xarelto), presents with 1 day of dry cough, chest pain and diffuse body aches. She said her last sickle cell crisis was 6 months ago and this feels similar to her prior episodes. Patient denies fevers, cough, increased shortness of breath, nausea, vomiting, rash or headaches. TRAVEL OUTSIDE OF THE [place] IN LAST 30 DAYS: No - Related Data Allergies/Adverse Reactions: doxycycline [Doxycycline] Allergy (Severe, Verified 03/02/17 20:20) Past Medical History - General Information source: Patient - Social History Smoking Status: Never Smoker Frequency of alcohol use: None Drug Abuse: None Family History: Reviewed & Not Pertinent Patient has suicidal ideation: No Patient has homicidal ideation: No - Past Medical History Cardiac Medical History: Reports: Hx Heart Murmur Denies: Hx Atrial Fibrillation, Hx Congestive Heart Failure, Hx Coronary Artery Disease, Hx Heart Attack, Hx Hypercholesterolemia, Hx Hypertension, Hx Peripheral Vascular Disease Pulmonary Medical History: Denies: Hx Tuberculosis Neurological Medical History: Denies: Hx Seizures Renal/ Medical History: Reports: Hx Ovarian Cysts. 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 Denies: Hx HIV Past Surgical History: Reports: Hx Appendectomy, Hx Section, Hx Cholecystectomy, Hx Orthopedic Surgery - R knee, Hx Tonsillectomy. Denies: Hx Bowel Surgery, Hx Coronary Artery Bypass Graft, Hx Gastric Bypass Surgery, Hx Herniorrhaphy, Hx Mastectomy, Hx Pacemaker, Hx Tubal Ligation - Immunizations Immunizations up to date: Yes Hx Diphtheria, Pertussis, Tetanus Vaccination: Yes Hx Pneumococcal Vaccination: 03/20/14 Review of Systems - Review of Systems Notes: REVIEW OF SYSTEMS: CONSTITUTIONAL: -fevers, -chills EENT: -eye pain, -difficulty swallowing, -nasal congestion CARDIOVASCULAR: +chest pain, -syncope. RESPIRATORY: -cough, -SOB GASTROINTESTINAL: -abdominal pain, -nausea, -vomiting, -diarrhea GENITOURINARY: -dysuria, -hematuria MUSCULOSKELETAL: +back pain, -neck pain, +arthralgias SKIN: -rash or skin lesions. HEMATOLOGIC: -easy bruising or bleeding. LYMPHATIC: -swollen, enlarged glands. NEUROLOGICAL: -altered mental status or loss of consciousness, -headache, - neurologic symptoms PSYCHIATRIC: -anxiety, -depression. ALL OTHER SYSTEMS REVIEWED AND NEGATIVE. Physical Exam - Vital signs Vitals: Temp Pulse Resp BP Pulse Ox 99.0 F 77 20 94/58 L 96 08/04/17 14:19 08/04/17 14:19 08/04/17 14:19 08/04/17 14:19 08/04/17 14:19 - Notes Notes: PHYSICAL EXAMINATION: GENERAL: Well-appearing, well-nourished and in no acute distress. HEAD: Atraumatic, normocephalic. EYES: Pupils equal round and reactive to light, extraocular movements intact, sclera anicteric, conjunctiva are pale. ENT: nares patent, oropharynx clear without exudates. Moist mucous membranes. NECK: Normal range of motion, supple without lymphadenopathy LUNGS: Breath sounds clear to auscultation bilaterally and equal. No wheezes rales or rhonchi. HEART: Regular rate and rhythm without murmurs ABDOMEN: Soft, nontender, normoactive bowel sounds. No guarding, no rebound. No masses appreciated. EXTREMITIES: Normal range of motion, no pitting or edema. No cyanosis. NEUROLOGICAL: Cranial nerves grossly intact. Normal speech, normal gait. Normal sensory and motor exams. PSYCH: Normal mood, normal affect. SKIN: Warm, Dry, normal turgor, no rashes or lesions noted. Course - Re-evaluation Re-evalutation: Patient's hemoglobin is 5.8. No active bleeding and her reticulocyte count is 10. Will transfuse patient 2 units of PRBCs. CXR is clear and she is not hypoxic to suggest acute chest syndrome. 08/04/17 20:47 Patient continuing to have her usual sickle cell pain despite multiple doses of IV narcotics. She is still receiving her PRBCs and said that she requires Benadryl and Tylenol due to mild transfusion reactions in the past. Spoke to Dr. Barraza and will admit patient as Inpatient to [facility]. - Vital Signs Vital signs: Temp Pulse Resp BP Pulse Ox 98.7 F 79 16 98/23 L 99 08/04/17 20:32 08/04/17 20:32 08/04/17 20:32 08/04/17 20:32 08/04/17 20:32 - Laboratory Result Diagrams: 08/04/17 15:23 08/04/17 15:23 Laboratory results interpreted by me: 08/04/17 08/04/17 08/04/17 15:23 15:23 16:52 RBC 1.37 L Hgb 5.8 L Hct 16.1 L MCV 117 H MCH 42.3 H RDW 18.9 H Retic Count (auto) 9.73 H Absolute Retic 0.134 H Chloride 108 H Total Bilirubin 4.6 H Direct Bilirubin 0.5 H AST 78 H Alkaline Phosphatase 141 H Crossmatch See Detail - Diagnostic Test Radiology reviewed: Image reviewed, Reports reviewed - EKG Interpretation by Me EKG shows normal: Sinus rhythm, Vega, Intervals, QRS Complexes, ST-T Waves Rate: Normal Discharge - Discharge Clinical Impression: [id number] C disease with crisis Anemia Qualifiers: Anemia type: unspecified type Qualified Code(s): D64.9 - Anemia, unspecified Condition: Stable Disposition: ADMITTED INPATIENT Admitting Provider: Da Referrals: HOMA BARRAZA MD [Primary Care Provider] - Follow up as needed
[2017-08-04 15:43] LABS: ABSOLUTE RETICS # 0.134 10^6/uL (0.028-0.122); HEMATOCRIT 16.1 % (36.0-47.0); MEAN CORPUSCULAR HEMOGLOBIN 42.3 pg (27.0-33.4); MEAN CORPUSCULAR VOLUME 117 fl (80-97); PLATELET COUNT 232 10^3/uL (150-450); RED BLOOD COUNT 1.37 10^6/uL (3.72-5.28); RED CELL DISTRIBUTION WIDTH 18.9 % (11.5-14.0); RETICULOCYTE COUNT (AUTO) 9.73 % (0.66-2.85); WHITE BLOOD COUNT 8.2 10^3/uL (4.0-10.5)
[2017-08-04 16:00] LABS: ALANINE AMINOTRANSFERASE 48 U/L (9-52); ALBUMIN 4.3 g/dL (3.5-5.0); ALKALINE PHOSPHATASE 141 U/L (38-126); ANION GAP 8 (5-19); ASPARTATE AMINO TRANSFERASE 78 U/L (14-36); BILIRUBIN,DIRECT 0.5 mg/dL (0.0-0.4); BILIRUBIN,TOTAL 4.6 mg/dL (0.2-1.3); BLOOD UREA NITROGEN 15 mg/dL (7-20); CALCIUM 9.5 mg/dL (8.4-10.2); CARBON DIOXIDE 23 mmol/L (22-30); CHLORIDE 108 mmol/L (98-107); GLUCOSE 92 mg/dL (75-110); POTASSIUM 4.9 mmol/L (3.6-5.0); SODIUM 139.1 mmol/L (137-145); TOTAL PROTEIN 6.6 g/dL (6.3-8.2)
[2017-08-04 16:15] LABS: ABSOLUTE LYMPHOCYTES# (MANUAL) 2.8 10^3/uL (0.5-4.7); ABSOLUTE MONOCYTES # (MANUAL) 0.2 10^3/uL (0.1-1.4); ABSOLUTE NEUTROPHILS# (MANUAL) 4.8 10^3/uL (1.7-8.2); BASOPHILS % (MANUAL) 1 % (0-2); EOSINOPHILS % (MANUAL) 4 % (0-6); LYMPHOCYTES % (MANUAL) 34 % (13-45); MONOCYTES % (MANUAL) 3 % (3-13); SEGMENTED NEUTROPHILS % (MAN) 58 % (42-78); TOTAL CELLS COUNTED 100
[2017-08-04 16:22] LABS: ANISOCYTOSIS 2+; OVALOCYTES SLIGHT; POIKILOCYTOSIS 2+; SCHISTOCYTES 2+; SICKLE RED CELLS 1+; TOXIC GRANULATION 2+
[2017-08-04 16:23] LABS: PLATELET COMMENT ADEQUATE; PLATELET GIANT PRESENT; PLATELET LARGE PRESENT
[2017-08-04 16:25] LABS: HEMOGLOBIN 5.8 g/dL (12.0-15.5)
[2017-08-04] MEDS ORDERED: NORMAL SALINE 250 ML IV PRN ×2 (16:26→21:31)
[2017-08-04 16:35] LABS: NUCLEATED RED BLOOD CELLS 9 /100 WBC (0)
--- NOTE | 2017-08-04 16:37 | RADIOLOGY REPORT (SQ) ---
EXAM DESCRIPTION: CHEST PA/LAT COMPLETED DATE/TIME: 08/04/2017 4:29 pm REASON FOR STUDY: chest pain COMPARISON: February 2017 EXAM PARAMETERS: NUMBER OF VIEWS: two views TECHNIQUE: Digital Frontal and Lateral radiographic views of the chest acquired. RADIATION DOSE: NA LIMITATIONS: none FINDINGS: LUNGS AND PLEURA: No opacities, masses or pneumothorax. No pleural effusion. There is daniel e prominence of the bronchovascular markings. MEDIASTINUM AND HILAR STRUCTURES: No masses or contour abnormalities. HEART AND VASCULAR STRUCTURES: The configuration of the heart and mediastinal structures is unchanged . BONES: No acute findings. HARDWARE: Port-A-Cath is unchanged in position. OTHER: No other significant finding. IMPRESSION: No acute consolidations or pleural effusions are identified. There is some prominence o f the bronchovascular markings. Other findings as noted above TECHNICAL DOCUMENTATION: JOB ID: [id number] [employer]- All Rights Reserved
[2017-08-04] MEDS ORDERED: DIPHENHYDRAMINE HCL 50 MG/ML VIAL IV ONE (19:58)
[2017-08-04] MEDS ORDERED: ACETAMINOPHEN 325 MG TABLET PO ONE (19:58)
[2017-08-04 22:03] LABS: IRON(TIBC) 230.3 ug/dL (37-170)
[2017-08-04 22:22] LABS: FREE T4 (FREE THYROXINE) 1.52 ng/dL (0.78-2.19)
[2017-08-04] MEDS ORDERED: DULOXETINE HCL 20 MG CAPSULE.DR PO ONE (22:30)
[2017-08-04] MEDS ORDERED: MULTIVITAMIN TABLET PO ONE (22:30)
[2017-08-04] MEDS ORDERED: FOLIC ACID 1 MG TABLET PO ONE (22:30)
--- NOTE | 2017-08-04 22:32 | RADIOLOGY REPORT (SQ) ---
EXAM DESCRIPTION: CT CHEST WITHOUT COMPLETED DATE/TIME: 08/04/2017 9:51 pm REASON FOR STUDY: acute chest syndrome COMPARISON: 11/19/2014 TECHNIQUE: CT scan performed of the chest without intravenous contrast. Images reviewed with lung, soft tissue and bone windows. Reconstructed coronal and sagittal MPR images reviewed. All images st ored on PACS. All CT scanners at this facility use dose modulation, iterative reconstruction, and/or weight based d osing when appropriate to reduce radiation dose to as low as reasonably achievable (ALARA). [facility]: Dose Right [facility]: CareDose [facility]: Dose Right [facility]: Teradose 4D [facility]: [employer] RADIATION DOSE: CT Rad equipment meets quality standard of care and radiation dose reduction techniq ues were employed. CTDIvol: 8.3 mGy. DLP: 311 mGy-cm. mGy. LIMITATIONS: No technical limitations. FINDINGS: LUNGS AND PLEURA: Small area patchy airspace disease is present in the posterior segment o f the right upper lobe. Small areas of subsegmental atelectasis are present in the posterior segment s of both lower lobes. No pleural effusion. HILAR AND MEDIASTINAL STRUCTURES: Stable mediastinal lymph nodes. HEART AND VASCULAR STRUCTURES: No aneurysm. No pericardial effusion. UPPER ABDOMEN: No acute findings. Limited exam. THYROID AND OTHER SOFT TISSUES: No masses. No adenopathy. BONES: No acute finding. HARDWARE: Left chest port. OTHER: No other significant findings. IMPRESSION: Small area patchy airspace disease is present in the posterior segment of the right uppe r lobe. Small areas of subsegmental atelectasis are present in the posterior segments of both lower lobes. No pleural effusion. TECHNICAL DOCUMENTATION: JOB ID: [id number] [place]-[id number] Quality ID # [id number]: Final reports with documentation of one or more dose reduction techniques (e.g., Au tomated exposure control, adjustment of the mA and/or kV according to patient size, use of iterative reconstruction technique) 2010 [employer]- All Rights Reserved
[2017-08-04 22:35] LABS: THYROID STIMULATING HORMONE 1.65 uIU/mL (0.47-4.68)
[2017-08-04 23:03] LABS: ABSOLUTE RETICS # 0.112 10^6/uL (0.028-0.122); RETICULOCYTE COUNT (AUTO) 6.94 % (0.66-2.85)
[2017-08-04 23:28] LABS: FOLATE > 20.00 ng/mL (>2.76)
[2017-08-05] MEDS: RIVAROXABAN 10 MG TABLET PO SCH ×2 (00:13→21:32)
[2017-08-05] MEDS: GABAPENTIN 300 MG CAPSULE PO SCH ×4 (00:16→21:31)
[2017-08-05] MEDS: OXYCODONE HCL SR 40 MG TABLET PO SCH ×3 (00:17→21:31)
[2017-08-05] MEDS: HYDROMORPHONE HCL INJ/PF 2 MG/ML AMPULE IV SCH ×6 (00:21→18:01)
[2017-08-05] MEDS ORDERED: DULOXETINE HCL 20 MG CAPSULE.DR PO ONE (00:51)
[2017-08-05 02:23] LABS: APPEARANCE,URINE CLEAR; BILIRUBIN,URINE NEGATIVE (NEGATIVE); COLOR,URINE YELLOW; GLUCOSE, URINE NEGATIVE (NEGATIVE); KETONES,URINE NEGATIVE (NEGATIVE); LEUKOCYTE ESTERASE,URINE SMALL (NEGATIVE); NITRITE,URINE NEGATIVE (NEGATIVE); PROTEIN,URINE NEGATIVE (NEGATIVE); URINE SPECIFIC GRAVITY 1.008; UROBILINOGEN,URINE NEGATIVE mg/dL (<2.0)
[2017-08-05 02:37] LABS: URINE AMPHETAMINES SCREEN NEGATIVE; URINE BARBITURATES SCREEN NEGATIVE; URINE BENZODIAZEPINES SCREEN NEGATIVE; URINE COCAINE SCREEN NEGATIVE; URINE MARIJUANA (THC) SCREEN NEGATIVE; URINE METHADONE SCREEN NEGATIVE; URINE PHENCYCLIDINE SCREEN NEGATIVE
[2017-08-05] MEDS: LEVOFLOXACIN 750 MG/D5W RTU 750 MG/150 ML RTUPB IV SCH ×2 (03:02→21:31)
[2017-08-05] MEDS: NORMAL SALINE 1000 ML 1,000 ML IV PRN (03:04)
[2017-08-05 05:07] LABS: ABSOLUTE BASOPHILS # (AUTO) 0.1 10^3/uL (0.0-0.2); ABSOLUTE EOSINOPHILS # (AUTO) 0.4 10^3/uL (0.0-0.6); ABSOLUTE LYMPHOCYTES (AUTO) 2.6 10^3/uL (0.5-4.7); ABSOLUTE MONOCYTES (AUTO) 0.4 10^3/uL (0.1-1.4); ABSOLUTE NEUT (AUTO) 2.9 10^3/uL (1.7-8.2); BASOPHILS % (AUTO) 1.3 % (0-2); EOSINOPHILS % (AUTO) 6.4 % (0-6); HEMATOCRIT 20.7 % (36.0-47.0); LYMPHOCYTES % (AUTO) 41.4 % (13-45); MEAN CORPUSCULAR HEMOGLOBIN 37.5 pg (27.0-33.4); MEAN CORPUSCULAR HGB CONC 35.7 g/dL (32.0-36.0); MONOCYTES % (AUTO) 5.7 % (3-13); PLATELET COUNT 217 10^3/uL (150-450); RED BLOOD COUNT 1.97 10^6/uL (3.72-5.28); RED CELL DISTRIBUTION WIDTH 26.1 % (11.5-14.0); SEGMENTED NEUTROPHILS % (AUTO) 45.2 % (42-78); TOTAL CELLS COUNTED % (AUTO) 100 %; WHITE BLOOD COUNT 6.4 10^3/uL (4.0-10.5)
[2017-08-05 05:13] LABS: INTERNATIONAL RATION (INR) 2.49; PROTHROMBIN TIME 28.2 SEC (11.4-15.4)
[2017-08-05 05:20] LABS: HEMOGLOBIN 7.4 g/dL (12.0-15.5)
[2017-08-05 05:21] LABS: ALBUMIN 3.8 g/dL (3.5-5.0); ASPARTATE AMINO TRANSFERASE 65 U/L (14-36); BILIRUBIN,DIRECT 0.8 mg/dL (0.0-0.4); BILIRUBIN,TOTAL 4.1 mg/dL (0.2-1.3); BLOOD UREA NITROGEN 14 mg/dL (7-20); CARBON DIOXIDE 23 mmol/L (22-30); CHLORIDE 109 mmol/L (98-107); GLUCOSE 86 mg/dL (75-110); MEAN CORPUSCULAR VOLUME 105 fl (80-97); PHOSPHORUS 4.1 mg/dL (2.5-4.5); TOTAL PROTEIN 5.9 g/dL (6.3-8.2)
[2017-08-05 05:22] LABS: ALANINE AMINOTRANSFERASE 40 U/L (9-52); ALKALINE PHOSPHATASE 94 U/L (38-126); ANION GAP 8 (5-19); CALCIUM 8.9 mg/dL (8.4-10.2); CHOLESTEROL 120.34 mg/dL (0-200); LIPASE 46.3 U/L (23-300); POTASSIUM 4.5 mmol/L (3.6-5.0); SODIUM 139.6 mmol/L (137-145); TRIGLYCERIDES 39 mg/dL (<150)
[2017-08-05 05:29] LABS: AMYLASE < 30 U/L (30-110)
[2017-08-05 05:33] LABS: DIRECT LDL 43 mg/dL (<100)
[2017-08-05 05:40] LABS: ANISOCYTOSIS 3+; OVALOCYTES 1+; POIKILOCYTOSIS 1+; POLYCHROMASIA SLIGHT
[2017-08-05 05:46] LABS: PLATELET COMMENT ADEQUATE
[2017-08-05] MEDS: OXYCODONE HCL IR 5 MG TABLET PO PRN ×2 (08:57→15:39)
[2017-08-05] MEDS ORDERED: DISPOSABLE SUBCUT ONE (10:00)
[2017-08-05] MEDS ORDERED: EPOETIN ALFA INJ 20000 UNIT/1 ML VIAL (RENAL) SUBCUT SCH (10:00)
[2017-08-05] MEDS ORDERED: EPOETIN ALFA SUBCUT ONE (10:00)
[2017-08-05] MEDS ORDERED: EPOETIN ALFA INJ 40000 UNIT/1 ML (ONCOLOGY) SUBCUT SCH (10:00)
[2017-08-05] MEDS: HYDROXYUREA 500 MG CAPSULE PO SCH ×2 (10:05→18:02)
[2017-08-05] MEDS: MULTIVITAMIN TABLET PO SCH (10:06)
[2017-08-05] MEDS: FOLIC ACID 1 MG TABLET PO SCH (10:06)
[2017-08-05] MEDS: DULOXETINE HCL 20 MG CAPSULE.DR PO SCH (10:19)
--- NOTE | 2017-08-05 10:59 | EKG REPORT ---
SEVERITY:- NORMAL ECG - SINUS RHYTHM : Confirmed by: Keyla Alexander 05-Aug-2017 10:59:02
[2017-08-05 11:35] LABS: PATH REVIEW PATHOLOGIST REVIEWED
[2017-08-05] MEDS: ONDANSETRON HCL INJ/PF 4 MG/2 ML SDV IV PRN (18:01)
--- NOTE | 2017-08-05 20:48 | PDOC H&P ---
History of Present Illness Admission Date/PCP: 08/04/17 21:33 HOMA BARRAZA MD History of Present Illness: WILLIE ALAN is a 47 year old femaleShe has a history of sickle cell disease, she is well-known to this hospital, she presented to the emergency room with severe bone pains associated with severe anemia, hemoglobin was 5 on presentation. A CAT scan of the chest was ordered, it showed small patchy areas of airspace disease.In the right upper lobe. This is patient first hospital admission this year, the last time she was admitted for similar presentation was in February 2017. 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 Past Surgical History Past Surgical History: Reports: Appendectomy, Section, Cholecystectomy , Orthopedic Surgery - R knee, Tonsillectomy Denies: Amputation, Coronary Artery Bypass Graft, Gastric Bypass Surgery, Herniorrhaphy, Mastectomy, Pacemaker, Tubal Ligation Social History Smoking Status: Never Smoker Frequency of Alcohol Use: None Hx Recreational Drug Use: No Drugs: None Hx Prescription Drug Abuse: No - Advance Directive Resuscitation Status: Full Code Family History Family History: Reviewed & Not Pertinent Parental Family History Reviewed: Yes Children Family History Reviewed: Yes Sibling(s) Family History Reviewed.: Yes Medication/Allergy Home Medications: Duloxetine HCl [Cymbalta 20 Mg Capsule.] 20 mg PO DAILY 08/04/17 Epoetin Federico [Procrit Inj 40,000 Unit/1 Ml Vial (Nrd-Subq)] 40,000 unit SUBCUT FR@1000 08/04/17 Epoetin Federico [Procrit] 20,000 unit SUBCUT FR@1000 08/04/17 Folic Acid [Folvite 1 mg Tablet] 1 mg PO DAILY 08/04/17 Gabapentin [Neurontin 300 mg Capsule] 300 mg PO Q8 08/04/17 Hydroxyurea [Hydrea 500 Mg Capsule] 500 mg PO BID 08/04/17 Ibuprofen [Motrin 800 mg Tablet] 800 mg PO Q8 08/04/17 Multivitamin [Tab-A-Yosvany] 1 tab PO DAILY 08/04/17 Oxycodone HCl 30 mg PO Q6HP PRN 08/04/17 Oxycodone HCl [Oxycontin Sr 40 mg Tablet] 40 mg PO Q8 08/04/17 Rivaroxaban [Xarelto] 20 mg PO QHS 08/04/17 Allergies/Adverse Reactions: doxycycline [Doxycycline] Allergy (Severe, Verified 03/02/17 20:20) Review of Systems Constitutional: PRESENT: other Eyes: ABSENT: visual disturbances Ears: ABSENT: hearing changes Respiratory: PRESENT: cough Genitourinary: ABSENT: dysuria, hematuria Musculoskeletal: PRESENT: back pain, joint swelling Neurological: PRESENT: weakness Psychiatric: ABSENT: anxiety, depression, homidical ideation, suicidal ideation Endocrine: ABSENT: cold intolerance, heat intolerance, menstrual abnormalities, polydipsia, polyuria Hematologic/Lymphatic: ABSENT: easy bleeding, easy bruising, lymphadenopathy Physical Exam Vital Signs: Temp Pulse Resp BP Pulse Ox 98.7 F 69 18 110/60 98 08/05/17 16:00 08/05/17 16:00 08/05/17 16:00 08/05/17 16:00 08/05/17 16:00 Intake & Output 08/04/17 08/05/17 08/06/17 06:59 06:59 06:59 Intake Total 1763 1340 Output Total 1000 700 Balance 763 640 Weight 64.6 kg General appearance: PRESENT: severe distress Eye exam: PRESENT: conjunctiva pale Neck exam: PRESENT: full ROM Respiratory exam: PRESENT: clear to auscultation carolyn Cardiovascular exam: PRESENT: RRR, +S1, +S2 Vascular exam: PRESENT: normal capillary refill GI/Abdominal exam: PRESENT: normal bowel sounds, soft Neurological exam: PRESENT: alert Results Laboratory Results: 08/05/17 04:35 08/05/17 04:35 08/04/17 08/05/17 08/05/17 22:39 02:05 04:35 WBC 6.4 RBC 1.97 L Hgb 7.4 L Hct 20.7 L MCV 105 H D MCH 37.5 H MCHC 35.7 RDW 26.1 H Plt Count 217 Seg Neutrophils % 45.2 Lymphocytes % 41.4 Monocytes % 5.7 Eosinophils % 6.4 H Basophils % 1.3 Absolute Neutrophils 2.9 Absolute Lymphocytes 2.6 Absolute Monocytes 0.4 Absolute Eosinophils 0.4 Absolute Basophils 0.1 Retic Count (auto) 6.94 H Absolute Retic 0.112 Sodium Potassium Chloride Carbon Dioxide Anion Gap BUN Creatinine Est GFR ( Amer) Est GFR (Non-Af Amer) Glucose Calcium Phosphorus Magnesium Total Bilirubin AST ALT Alkaline Phosphatase Ammonia Total Protein Albumin Triglycerides Cholesterol LDL Cholesterol Direct VLDL Cholesterol HDL Cholesterol Amylase Lipase Urine Color YELLOW Urine Appearance CLEAR Urine pH 6.0 Ur Specific [place] 1.008 Urine Protein NEGATIVE Urine Glucose (UA) NEGATIVE Urine Ketones NEGATIVE Urine Blood NEGATIVE Urine Nitrite NEGATIVE Ur Leukocyte Esterase SMALL H Urine WBC (Auto) 5 Urine RBC (Auto) 0 08/05/17 08/05/17 04:35 04:35 WBC RBC Hgb Hct MCV MCH MCHC RDW Plt Count Seg Neutrophils % Lymphocytes % Monocytes % Eosinophils % Basophils % Absolute Neutrophils Absolute Lymphocytes Absolute Monocytes Absolute Eosinophils Absolute Basophils Retic Count (auto) Absolute Retic Sodium 139.6 Potassium 4.5 Chloride 109 H Carbon Dioxide 23 Anion Gap 8 BUN 14 Creatinine 0.81 Est GFR ( Amer) > 60 Est GFR (Non-Af Amer) > 60 Glucose 86 Calcium 8.9 Phosphorus 4.1 Magnesium 1.9 Total Bilirubin 4.1 H AST 65 H ALT 40 Alkaline Phosphatase 94 Ammonia 38.2 H Total Protein 5.9 L Albumin 3.8 Triglycerides 39 Cholesterol 120.34 LDL Cholesterol Direct 43 VLDL Cholesterol 8.0 L HDL Cholesterol 64 Amylase < 30 L Lipase 46.3 Urine Color Urine Appearance Urine pH Ur Specific [place] Urine Protein Urine Glucose (UA) Urine Ketones Urine Blood Urine Nitrite Ur Leukocyte Esterase Urine WBC (Auto) Urine RBC (Auto) 08/04/17 08/05/17 08/05/17 22:39 04:35 04:35 Troponin I < 0.012 < 0.012 NT-Pro-B Natriuret Pep 265 H 08/05/17 15:45 Troponin I < 0.012 NT-Pro-B Natriuret Pep Impressions: Chest CT 08/04/17 00:00 IMPRESSION: Small area patchy airspace disease is present in the posterior segment of the right upper lobe. Small areas of subsegmental atelectasis are present in the posterior segments of both lower lobes. No pleural effusion. Chest X-Ray 08/04/17 16:18 IMPRESSION: No acute consolidations or pleural effusions are identified. There is some prominence of the bronchovascular markings. Other findings as noted above Assessment & Plan - Diagnosis (1) Hemolytic crisis Is this a current diagnosis for this admission?: Yes Plan: Patient presents with hemolytic crisis she requires blood transfusion (2) Sickle-cell anemia with crisis Is this a current diagnosis for this admission?: Yes
--- NOTE | 2017-08-05 20:50 | PDOC PROGRESS REPORT ---
Subjective Progress Note for:: 08/05/17 Subjective:: Patient was admitted yesterday for the management of hemolytic crises, bone pain crisis, she was seen by the bedside. Reason For Visit: BONE PAIN CRISIS/HEMOLYTIC CRISIS/ Physical Exam Vital Signs: Temp Pulse Resp BP Pulse Ox 98.7 F 69 18 110/60 98 08/05/17 16:00 08/05/17 16:00 08/05/17 16:00 08/05/17 16:00 08/05/17 16:00 Intake & Output 08/04/17 08/05/17 08/06/17 06:59 06:59 06:59 Intake Total 1763 1340 Output Total 1000 700 Balance 763 640 Weight 64.6 kg General appearance: PRESENT: mild distress Eye exam: PRESENT: PERRLA Respiratory exam: PRESENT: clear to auscultation carolyn Cardiovascular exam: PRESENT: +S1, +S2 GI/Abdominal exam: PRESENT: soft Neurological exam: PRESENT: alert Results Laboratory Results: 08/05/17 04:35 08/05/17 04:35 08/04/17 08/05/17 08/05/17 22:39 02:05 04:35 WBC 6.4 RBC 1.97 L Hgb 7.4 L Hct 20.7 L MCV 105 H D MCH 37.5 H MCHC 35.7 RDW 26.1 H Plt Count 217 Seg Neutrophils % 45.2 Lymphocytes % 41.4 Monocytes % 5.7 Eosinophils % 6.4 H Basophils % 1.3 Absolute Neutrophils 2.9 Absolute Lymphocytes 2.6 Absolute Monocytes 0.4 Absolute Eosinophils 0.4 Absolute Basophils 0.1 Retic Count (auto) 6.94 H Absolute Retic 0.112 Sodium Potassium Chloride Carbon Dioxide Anion Gap BUN Creatinine Est GFR ( Amer) Est GFR (Non-Af Amer) Glucose Calcium Phosphorus Magnesium Total Bilirubin AST ALT Alkaline Phosphatase Ammonia Total Protein Albumin Triglycerides Cholesterol LDL Cholesterol Direct VLDL Cholesterol HDL Cholesterol Amylase Lipase Urine Color YELLOW Urine Appearance CLEAR Urine pH 6.0 Ur Specific [place] 1.008 Urine Protein NEGATIVE Urine Glucose (UA) NEGATIVE Urine Ketones NEGATIVE Urine Blood NEGATIVE Urine Nitrite NEGATIVE Ur Leukocyte Esterase SMALL H Urine WBC (Auto) 5 Urine RBC (Auto) 0 08/05/17 08/05/17 04:35 04:35 WBC RBC Hgb Hct MCV MCH MCHC RDW Plt Count Seg Neutrophils % Lymphocytes % Monocytes % Eosinophils % Basophils % Absolute Neutrophils Absolute Lymphocytes Absolute Monocytes Absolute Eosinophils Absolute Basophils Retic Count (auto) Absolute Retic Sodium 139.6 Potassium 4.5 Chloride 109 H Carbon Dioxide 23 Anion Gap 8 BUN 14 Creatinine 0.81 Est GFR ( Amer) > 60 Est GFR (Non-Af Amer) > 60 Glucose 86 Calcium 8.9 Phosphorus 4.1 Magnesium 1.9 Total Bilirubin 4.1 H AST 65 H ALT 40 Alkaline Phosphatase 94 Ammonia 38.2 H Total Protein 5.9 L Albumin 3.8 Triglycerides 39 Cholesterol 120.34 LDL Cholesterol Direct 43 VLDL Cholesterol 8.0 L HDL Cholesterol 64 Amylase < 30 L Lipase 46.3 Urine Color Urine Appearance Urine pH Ur Specific [place] Urine Protein Urine Glucose (UA) Urine Ketones Urine Blood Urine Nitrite Ur Leukocyte Esterase Urine WBC (Auto) Urine RBC (Auto) 08/04/17 08/05/17 08/05/17 22:39 04:35 04:35 Troponin I < 0.012 < 0.012 NT-Pro-B Natriuret Pep 265 H 08/05/17 15:45 Troponin I < 0.012 NT-Pro-B Natriuret Pep Impressions: Chest CT 08/04/17 00:00 IMPRESSION: Small area patchy airspace disease is present in the posterior segment of the right upper lobe. Small areas of subsegmental atelectasis are present in the posterior segments of both lower lobes. No pleural effusion. Chest X-Ray 08/04/17 16:18 IMPRESSION: No acute consolidations or pleural effusions are identified. There is some prominence of the bronchovascular markings. Other findings as noted above Assessment & Plan - Diagnosis (1) Hemolytic crisis Is this a current diagnosis for this admission?: Yes (2) Sickle-cell anemia with crisis Is this a current diagnosis for this admission?: Yes (3) Pneumonia Qualifiers: Pneumonia type: due to unspecified organism Laterality: right Lung location: upper lobe of lung Qualified Code(s): J18.1 - Lobar pneumonia, unspecified organism Is this a current diagnosis for this admission?: Yes Plan: The CAT scan of the chest suggests right upper lobe pneumonia, already on Levaquin, start cefepime
[2017-08-05] MEDS ORDERED: CEFEPIME 2 GM/D5W RTU 2 GM/50 ML RTUPB IV SCH (21:00)
[2017-08-05] MEDS: HYDROMORPHONE HCL INJ/PF 2 MG/ML AMPULE IV PRN (21:30)
[2017-08-06] MEDS: CEFEPIME HCL 2 GM in NORMAL SALINE 100 ML IV SCH ×2 (00:14→12:04)
[2017-08-06] MEDS: ONDANSETRON HCL INJ/PF 4 MG/2 ML SDV IV PRN ×4 (00:32→19:30)
[2017-08-06] MEDS: HYDROMORPHONE HCL INJ/PF 2 MG/ML AMPULE IV PRN ×8 (00:33→22:38)
[2017-08-06] MEDS: NORMAL SALINE 1000 ML 1,000 ML IV PRN (00:34)
[2017-08-06] MEDS: OXYCODONE HCL SR 40 MG TABLET PO SCH ×3 (05:52→22:38)
[2017-08-06] MEDS: GABAPENTIN 300 MG CAPSULE PO SCH ×3 (05:53→22:38)
[2017-08-06 06:47] LABS: INTERNATIONAL RATION (INR) 2.67; PROTHROMBIN TIME 29.8 SEC (11.4-15.4)
[2017-08-06 06:59] LABS: ALANINE AMINOTRANSFERASE 50 U/L (9-52); ALKALINE PHOSPHATASE 113 U/L (38-126); AMYLASE 36 U/L (30-110); ANION GAP 9 (5-19); ASPARTATE AMINO TRANSFERASE 78 U/L (14-36); BILIRUBIN,DIRECT 0.7 mg/dL (0.0-0.4); BILIRUBIN,TOTAL 5.4 mg/dL (0.2-1.3); BLOOD UREA NITROGEN 12 mg/dL (7-20); CALCIUM 9.2 mg/dL (8.4-10.2); CARBON DIOXIDE 23 mmol/L (22-30); CHLORIDE 105 mmol/L (98-107); GLUCOSE 96 mg/dL (75-110); LIPASE 35.9 U/L (23-300); PHOSPHORUS 4.4 mg/dL (2.5-4.5); POTASSIUM 4.9 mmol/L (3.6-5.0); SODIUM 136.5 mmol/L (137-145); TOTAL PROTEIN 6.3 g/dL (6.3-8.2)
[2017-08-06 07:18] LABS: HEMATOCRIT 20.8 % (36.0-47.0); MEAN CORPUSCULAR HEMOGLOBIN 37.7 pg (27.0-33.4); MEAN CORPUSCULAR VOLUME 105 fl (80-97); PLATELET COUNT 206 10^3/uL (150-450); RED BLOOD COUNT 1.98 10^6/uL (3.72-5.28); RED CELL DISTRIBUTION WIDTH 25.9 % (11.5-14.0); WHITE BLOOD COUNT 5.6 10^3/uL (4.0-10.5)
[2017-08-06 08:19] LABS: ABSOLUTE MONOCYTES # (MANUAL) 0.2 10^3/uL (0.1-1.4); ABSOLUTE NEUTROPHILS# (MANUAL) 3.3 10^3/uL (1.7-8.2); BASOPHILS % (MANUAL) 0 % (0-2); EOSINOPHILS % (MANUAL) 2 % (0-6); LYMPHOCYTES % (MANUAL) 35 % (13-45); MONOCYTES % (MANUAL) 4 % (3-13); NUCLEATED RED BLOOD CELLS 4 /100 WBC (0); SEGMENTED NEUTROPHILS % (MAN) 59 % (42-78); TOTAL CELLS COUNTED 100
[2017-08-06 08:22] LABS: POLYCHROMASIA SLIGHT
[2017-08-06 08:23] LABS: ANISOCYTOSIS 3+; OVALOCYTES 2+; PLATELET COMMENT ADEQUATE; POIKILOCYTOSIS SLIGHT
[2017-08-06 08:24] LABS: HEMOGLOBIN 7.5 g/dL (12.0-15.5)
[2017-08-06] MEDS: MULTIVITAMIN TABLET PO SCH (10:02)
[2017-08-06] MEDS: HYDROXYUREA 500 MG CAPSULE PO SCH ×2 (10:02→17:48)
[2017-08-06] MEDS: FOLIC ACID 1 MG TABLET PO SCH (10:02)
[2017-08-06] MEDS: DULOXETINE HCL 20 MG CAPSULE.DR PO SCH (10:02)
[2017-08-06] MEDS: OXYCODONE HCL IR 5 MG TABLET PO PRN ×2 (11:19→17:48)
--- NOTE | 2017-08-06 14:06 | PDOC PROGRESS REPORT ---
Subjective Progress Note for:: 08/06/17 Subjective:: Patient reported fairly controlled pain level on her current regimen. There is slight nausea but no vomiting. No chest pain or difficulty with breathing. No fever or chills. Reason For Visit: BONE PAIN CRISIS/HEMOLYTIC CRISIS/ Physical Exam Vital Signs: Temp Pulse Resp BP Pulse Ox 98.5 F 70 18 103/59 L 92 08/06/17 10:47 08/06/17 10:47 08/06/17 10:47 08/06/17 10:47 08/06/17 10:47 Intake & Output 08/05/17 08/06/17 08/07/17 06:59 06:59 06:59 Intake Total 1763 2955 Output Total 1000 2400 Balance 763 555 Weight 64.6 kg 64.6 kg General appearance: PRESENT: mild distress - due to multiple joints and back localized pain Head exam: PRESENT: atraumatic, normocephalic Eye exam: PRESENT: conjunctiva pink, EOMI, PERRLA. ABSENT: scleral icterus Mouth exam: PRESENT: moist Respiratory exam: PRESENT: clear to auscultation carolyn Cardiovascular exam: PRESENT: RRR. ABSENT: diastolic murmur, rubs, systolic murmur GI/Abdominal exam: PRESENT: normal bowel sounds, soft. ABSENT: distended, guarding, mass, organolmegaly, rebound, tenderness Extremities exam: ABSENT: pedal edema Musculoskeletal exam: PRESENT: tenderness - multiple joints and mid to lower back Neurological exam: PRESENT: alert, awake, oriented to person, oriented to place , oriented to time, oriented to situation, CN II-XII grossly intact. ABSENT: motor sensory deficit Psychiatric exam: PRESENT: appropriate affect, normal mood. ABSENT: homicidal ideation, suicidal ideation Skin exam: PRESENT: dry, intact, warm. ABSENT: cyanosis, rash Results Laboratory Results: 08/06/17 06:15 08/06/17 06:15 08/06/17 08/06/17 08/06/17 06:15 06:15 06:15 WBC 5.6 RBC 1.98 L Hgb 7.5 L Hct 20.8 L MCV 105 H MCH 37.7 H MCHC 36.0 RDW 25.9 H Plt Count 206 Seg Neutrophils % Not Reportable Lymphocytes % Not Reportable Monocytes % Not Reportable Eosinophils % Not Reportable Basophils % Not Reportable Absolute Neutrophils Not Reportable Absolute Lymphocytes Not Reportable Absolute Monocytes Not Reportable Absolute Eosinophils Not Reportable Absolute Basophils Not Reportable Sodium 136.5 L Potassium 4.9 Chloride 105 Carbon Dioxide 23 Anion Gap 9 BUN 12 Creatinine 0.70 Est GFR ( Amer) > 60 Est GFR (Non-Af Amer) > 60 Glucose 96 Calcium 9.2 Phosphorus 4.4 Magnesium 1.9 Total Bilirubin 5.4 H AST 78 H ALT 50 Alkaline Phosphatase 113 Ammonia 31.3 Total Protein 6.3 Albumin 4.0 Amylase 36 Lipase 35.9 08/04/17 08/05/17 08/05/17 22:39 04:35 04:35 Troponin I < 0.012 < 0.012 NT-Pro-B Natriuret Pep 265 H 08/05/17 08/06/17 15:45 06:15 Troponin I < 0.012 NT-Pro-B Natriuret Pep 380 H Impressions: Chest CT 08/04/17 00:00 IMPRESSION: Small area patchy airspace disease is present in the posterior segment of the right upper lobe. Small areas of subsegmental atelectasis are present in the posterior segments of both lower lobes. No pleural effusion. Chest X-Ray 08/04/17 16:18 IMPRESSION: No acute consolidations or pleural effusions are identified. There is some prominence of the bronchovascular markings. Other findings as noted above Assessment & Plan - Diagnosis (1) Qkpzcy-adjr-xiptbjmaug C disease with crisis Is this a current diagnosis for this admission?: Yes Plan: See covering attending physician orders. (2) Anemia, sickle cell with crisis Is this a current diagnosis for this admission?: Yes Plan: See covering attending physician orders. (3) Sickle cell pain crisis Is this a current diagnosis for this admission?: Yes Plan: See covering attending physician orders. (4) Pneumonia Qualifiers: Pneumonia type: due to unspecified organism Laterality: right Lung location: upper lobe of lung Qualified Code(s): J18.1 - Lobar pneumonia, unspecified organism Is this a current diagnosis for this admission?: Yes Plan: See covering attending physician orders. Continue IV antibiotic therapy (5) Narcotic dependency, continuous Is this a current diagnosis for this admission?: Yes Plan: See covering attending physician orders. - Time Time Spent with patient: 25-34 minutes Medications reviewed and adjusted accordingly: Yes Anticipated discharge: Home Within: Other - Inpatient Certification Based on my medical assessment, after consideration of the patient's comorbidities, presenting symptoms, or acuity I expect that the services needed warrant INPATIENT care.: Yes I certify that my determination is in accordance with my understanding of Medicare's requirements for reasonable and necessary INPATIENT services [42 CFR 412.3e].: Yes Medical Necessity: Need Close Monitoring Due to Risk of Patient Decompensation, Need For IV Fluids, Need For Continuous Telemetry Monitoring, Need for Pain Control, Risk of Complication if Not Cared For in Hospital Post Hospital Care: D/C Eddy Current Inspector Documentation - Plan Summary Plan Summary: See covering attending physician orders.
[2017-08-06] MEDS: RIVAROXABAN 10 MG TABLET PO SCH (22:38)
[2017-08-06] MEDS: LEVOFLOXACIN 750 MG/D5W RTU 750 MG/150 ML RTUPB IV SCH (22:38)
[2017-08-07] MEDS: CEFEPIME HCL 2 GM in NORMAL SALINE 100 ML IV SCH ×3 (00:05→23:09)
[2017-08-07] MEDS: ONDANSETRON HCL INJ/PF 4 MG/2 ML SDV IV PRN ×5 (01:33→23:09)
[2017-08-07] MEDS: NORMAL SALINE 1000 ML 1,000 ML IV PRN ×3 (01:33→23:09)
[2017-08-07] MEDS: HYDROMORPHONE HCL INJ/PF 2 MG/ML AMPULE IV PRN ×8 (01:33→23:09)
[2017-08-07] MEDS: GABAPENTIN 300 MG CAPSULE PO SCH ×3 (04:55→22:25)
[2017-08-07] MEDS: OXYCODONE HCL SR 40 MG TABLET PO SCH ×3 (04:56→22:25)
[2017-08-07 05:49] LABS: HEMATOCRIT 21.6 % (36.0-47.0); MEAN CORPUSCULAR HEMOGLOBIN 37.6 pg (27.0-33.4); MEAN CORPUSCULAR HGB CONC 35.2 g/dL (32.0-36.0); MEAN CORPUSCULAR VOLUME 107 fl (80-97); PLATELET COUNT 203 10^3/uL (150-450); RED BLOOD COUNT 2.02 10^6/uL (3.72-5.28); RED CELL DISTRIBUTION WIDTH 25.6 % (11.5-14.0); WHITE BLOOD COUNT 7.3 10^3/uL (4.0-10.5)
[2017-08-07 05:50] LABS: HEMOGLOBIN 7.6 g/dL (12.0-15.5)
[2017-08-07 05:52] LABS: INTERNATIONAL RATION (INR) 2.43; PROTHROMBIN TIME 27.7 SEC (11.4-15.4)
[2017-08-07 06:26] LABS: ANISOCYTOSIS 3+; HYPOCHROMASIA 1+; POIKILOCYTOSIS 1+; POLYCHROMASIA SLIGHT; SICKLE RED CELLS 1+
[2017-08-07 06:27] LABS: PLATELET COMMENT ADEQUATE
[2017-08-07 06:40] LABS: ALANINE AMINOTRANSFERASE 46 U/L (9-52); ALBUMIN 3.8 g/dL (3.5-5.0); ALKALINE PHOSPHATASE 108 U/L (38-126); ANION GAP 7 (5-19); ASPARTATE AMINO TRANSFERASE 64 U/L (14-36); BILIRUBIN,TOTAL 5.3 mg/dL (0.2-1.3); BLOOD UREA NITROGEN 13 mg/dL (7-20); CALCIUM 9.1 mg/dL (8.4-10.2); CARBON DIOXIDE 24 mmol/L (22-30); CHLORIDE 106 mmol/L (98-107); GLUCOSE 115 mg/dL (75-110); POTASSIUM 4.5 mmol/L (3.6-5.0); SODIUM 137.4 mmol/L (137-145); TOTAL PROTEIN 6.2 g/dL (6.3-8.2)
[2017-08-07 06:43] LABS: LIPASE 40.7 U/L (23-300)
[2017-08-07 07:22] LABS: ABSOLUTE LYMPHOCYTES# (MANUAL) 2.6 10^3/uL (0.5-4.7); ABSOLUTE MONOCYTES # (MANUAL) 0.4 10^3/uL (0.1-1.4); ABSOLUTE NEUTROPHILS# (MANUAL) 3.6 10^3/uL (1.7-8.2); BASOPHILS % (MANUAL) 1 % (0-2); EOSINOPHILS % (MANUAL) 9 % (0-6); LYMPHOCYTES % (MANUAL) 36 % (13-45); MONOCYTES % (MANUAL) 5 % (3-13); NUCLEATED RED BLOOD CELLS 5 /100 WBC (0); SEGMENTED NEUTROPHILS % (MAN) 49 % (42-78); TOTAL CELLS COUNTED 100
[2017-08-07] MEDS: DULOXETINE HCL 20 MG CAPSULE.DR PO SCH (11:09)
[2017-08-07] MEDS: FOLIC ACID 1 MG TABLET PO SCH (11:10)
[2017-08-07] MEDS: HYDROXYUREA 500 MG CAPSULE PO SCH ×2 (11:10→17:04)
[2017-08-07] MEDS: MULTIVITAMIN TABLET PO SCH (11:10)
--- NOTE | 2017-08-07 16:20 | PDOC PROGRESS REPORT ---
Subjective Progress Note for:: 08/07/17 Subjective:: No chest pain or difficulty with breathing. No fever or chills. Patient continue to report nausea, poor appetite, and PO intake. No vomiting or abdominal pain. Reason For Visit: BONE PAIN CRISIS/HEMOLYTIC CRISIS/ Physical Exam Vital Signs: Temp Pulse Resp BP Pulse Ox 98.0 F 70 18 100/52 L 99 08/07/17 15:36 08/07/17 15:36 08/07/17 15:36 08/07/17 15:36 08/07/17 15:36 Intake & Output 08/06/17 08/07/17 08/08/17 06:59 06:59 06:59 Intake Total 2955 3566 Output Total 2400 1900 Balance 555 1666 Weight 64.6 kg 65 kg Physical Exam: General appearance: PRESENT: mild distress - due to multiple joints and back localized pain Head exam: PRESENT: atraumatic, normocephalic Eye exam: PRESENT: conjunctiva pink, EOMI, PERRLA. ABSENT: scleral icterus Mouth exam: PRESENT: moist Respiratory exam: PRESENT: clear to auscultation carolyn Cardiovascular exam: PRESENT: RRR. ABSENT: diastolic murmur, rubs, systolic murmur GI/Abdominal exam: PRESENT: normal bowel sounds, soft. ABSENT: distended, guarding, mass, organomegaly, rebound, tenderness Extremities exam: ABSENT: pedal edema Musculoskeletal exam: PRESENT: tenderness - multiple joints and mid to lower back Neurological exam: PRESENT: alert, awake, oriented to person, oriented to place , oriented to time, oriented to situation, CN II-XII grossly intact. ABSENT: motor sensory deficit Psychiatric exam: PRESENT: appropriate affect, normal mood. ABSENT: homicidal ideation, suicidal ideation Skin exam: PRESENT: dry, intact, warm. ABSENT: cyanosis, rash Results Laboratory Results: 08/07/17 05:00 08/07/17 05:00 08/04/17 08/07/17 08/07/17 22:39 05:00 05:00 WBC 7.3 RBC 2.02 L Hgb 7.6 L Hct 21.6 L MCV 107 H MCH 37.6 H MCHC 35.2 RDW 25.6 H Plt Count 203 Seg Neutrophils % Not Reportable Lymphocytes % Not Reportable Monocytes % Not Reportable Eosinophils % Not Reportable Basophils % Not Reportable Absolute Neutrophils Not Reportable Absolute Lymphocytes Not Reportable Absolute Monocytes Not Reportable Absolute Eosinophils Not Reportable Absolute Basophils Not Reportable Sodium 137.4 Potassium 4.5 Chloride 106 Carbon Dioxide 24 Anion Gap 7 BUN 13 Creatinine 0.80 Est GFR ( Amer) > 60 Est GFR (Non-Af Amer) > 60 Glucose 115 H Calcium 9.1 Phosphorus 4.0 Magnesium 1.8 Transferrin 178 L Total Bilirubin 5.3 H AST 64 H ALT 46 Alkaline Phosphatase 108 Ammonia Total Protein 6.2 L Albumin 3.8 Amylase Cancelled Lipase 40.7 08/07/17 08/07/17 06:59 11:05 WBC RBC Hgb Hct MCV MCH MCHC RDW Plt Count Seg Neutrophils % Lymphocytes % Monocytes % Eosinophils % Basophils % Absolute Neutrophils Absolute Lymphocytes Absolute Monocytes Absolute Eosinophils Absolute Basophils Sodium Potassium Chloride Carbon Dioxide Anion Gap BUN Creatinine Est GFR ( Amer) Est GFR (Non-Af Amer) Glucose Calcium Phosphorus Magnesium Transferrin Total Bilirubin AST ALT Alkaline Phosphatase Ammonia 44.7 H Total Protein Albumin Amylase 35 Lipase 08/05/17 02:05 Clean Catch Midstream Urine Culture - Final Mixed Urogenital [place] 08/04/17 08/05/17 08/05/17 22:39 04:35 04:35 Troponin I < 0.012 < 0.012 NT-Pro-B Natriuret Pep 265 H 08/05/17 08/06/17 08/07/17 15:45 06:15 06:59 Troponin I < 0.012 NT-Pro-B Natriuret Pep 380 H 302 H Impressions: Chest CT 08/04/17 00:00 IMPRESSION: Small area patchy airspace disease is present in the posterior segment of the right upper lobe. Small areas of subsegmental atelectasis are present in the posterior segments of both lower lobes. No pleural effusion. Chest X-Ray 08/04/17 16:18 IMPRESSION: No acute consolidations or pleural effusions are identified. There is some prominence of the bronchovascular markings. Other findings as noted above Assessment & Plan - Diagnosis (1) Fuzlnq-nrvd-qfdxyqhdyq C disease with crisis Is this a current diagnosis for this admission?: Yes (2) Anemia, sickle cell with crisis Is this a current diagnosis for this admission?: Yes (3) Sickle cell pain crisis Is this a current diagnosis for this admission?: Yes (4) Pneumonia Qualifiers: Pneumonia type: due to unspecified organism Laterality: right Lung location: upper lobe of lung Qualified Code(s): J18.1 - Lobar pneumonia, unspecified organism Is this a current diagnosis for this admission?: Yes (5) Narcotic dependency, continuous Is this a current diagnosis for this admission?: Yes - Time Time Spent with patient: 25-34 minutes Medications reviewed and adjusted accordingly: Yes Anticipated discharge: Home Within: Other - Inpatient Certification Based on my medical assessment, after consideration of the patient's comorbidities, presenting symptoms, or acuity I expect that the services needed warrant INPATIENT care.: Yes I certify that my determination is in accordance with my understanding of Medicare's requirements for reasonable and necessary INPATIENT services [42 CFR 412.3e].: Yes Medical Necessity: Need Close Monitoring Due to Risk of Patient Decompensation, Need For IV Fluids, Need For Continuous Telemetry Monitoring, Need for Pain Control, Risk of Complication if Not Cared For in Hospital Post Hospital Care: D/C Piper Helper Documentation - Plan Summary Plan Summary: Continue current medication management. Change IV Zofran dosing to q4hrs.
[2017-08-07] MEDS: RIVAROXABAN 10 MG TABLET PO SCH (22:25)
[2017-08-07] MEDS: LEVOFLOXACIN 750 MG/D5W RTU 750 MG/150 ML RTUPB IV SCH (22:25)
[2017-08-08] MEDS: HYDROMORPHONE HCL INJ/PF 2 MG/ML AMPULE IV PRN ×7 (02:08→21:43)
[2017-08-08] MEDS: ONDANSETRON HCL INJ/PF 4 MG/2 ML SDV IV PRN ×3 (05:09→18:07)
[2017-08-08] MEDS: OXYCODONE HCL SR 40 MG TABLET PO SCH ×3 (05:09→21:43)
[2017-08-08] MEDS: GABAPENTIN 300 MG CAPSULE PO SCH ×3 (05:09→21:44)
[2017-08-08] MEDS: DULOXETINE HCL 20 MG CAPSULE.DR PO SCH (10:17)
[2017-08-08] MEDS: MULTIVITAMIN TABLET PO SCH (10:17)
[2017-08-08] MEDS: FOLIC ACID 1 MG TABLET PO SCH (10:17)
[2017-08-08] MEDS: CEFEPIME HCL 2 GM in NORMAL SALINE 100 ML IV SCH ×2 (10:17→22:57)
[2017-08-08] MEDS: HYDROXYUREA 500 MG CAPSULE PO SCH ×2 (10:17→18:06)
--- NOTE | 2017-08-08 21:14 | PDOC PROGRESS REPORT ---
Subjective Progress Note for:: 08/08/17 Subjective:: She was admitted 4 management of bone pain crisis, hemolytic crisis Reason For Visit: BONE PAIN CRISIS/HEMOLYTIC CRISIS/ Physical Exam Vital Signs: Temp Pulse Resp BP Pulse Ox 98.1 F 70 16 90/41 L 95 08/08/17 15:52 08/08/17 15:52 08/08/17 15:52 08/08/17 15:52 08/08/17 15:52 Intake & Output 08/07/17 08/08/17 08/09/17 06:59 06:59 06:59 Intake Total 3566 3537 1663 Output Total 1900 2400 1800 Balance 1666 1137 -137 Weight 65 kg 64.6 kg General appearance: PRESENT: no acute distress Eye exam: PRESENT: PERRLA Respiratory exam: PRESENT: clear to auscultation carolyn Cardiovascular exam: PRESENT: +S1 GI/Abdominal exam: PRESENT: soft Neurological exam: PRESENT: alert Results Laboratory Results: 08/07/17 05:00 08/07/17 05:00 08/04/17 08/05/17 08/05/17 22:39 04:35 04:35 Troponin I < 0.012 < 0.012 NT-Pro-B Natriuret Pep 265 H 08/05/17 08/06/17 08/07/17 15:45 06:15 06:59 Troponin I < 0.012 NT-Pro-B Natriuret Pep 380 H 302 H Impressions: Chest CT 08/04/17 00:00 IMPRESSION: Small area patchy airspace disease is present in the posterior segment of the right upper lobe. Small areas of subsegmental atelectasis are present in the posterior segments of both lower lobes. No pleural effusion. Chest X-Ray 08/04/17 16:18 IMPRESSION: No acute consolidations or pleural effusions are identified. There is some prominence of the bronchovascular markings. Other findings as noted above Assessment & Plan - Diagnosis (1) Hemolytic crisis Is this a current diagnosis for this admission?: Yes (2) Sickle-cell anemia with crisis Is this a current diagnosis for this admission?: Yes (3) Pneumonia Qualifiers: Pneumonia type: due to unspecified organism Laterality: right Lung location: upper lobe of lung Qualified Code(s): J18.1 - Lobar pneumonia, unspecified organism Is this a current diagnosis for this admission?: Yes
[2017-08-08] MEDS: LEVOFLOXACIN 750 MG TABLET PO SCH (21:43)
[2017-08-08] MEDS: RIVAROXABAN 10 MG TABLET PO SCH (21:43)
[2017-08-09] MEDS: HYDROMORPHONE HCL INJ/PF 2 MG/ML AMPULE IV PRN ×8 (00:52→23:02)
[2017-08-09] MEDS: ONDANSETRON HCL INJ/PF 4 MG/2 ML SDV IV PRN ×5 (00:52→23:02)
[2017-08-09] MEDS: OXYCODONE HCL SR 40 MG TABLET PO SCH ×3 (05:36→23:02)
[2017-08-09] MEDS: GABAPENTIN 300 MG CAPSULE PO SCH ×3 (05:36→23:02)
[2017-08-09] MEDS: DULOXETINE HCL 20 MG CAPSULE.DR PO SCH (10:09)
[2017-08-09] MEDS: HYDROXYUREA 500 MG CAPSULE PO SCH ×2 (10:09→17:21)
[2017-08-09] MEDS: MULTIVITAMIN TABLET PO SCH (10:09)
[2017-08-09] MEDS: FOLIC ACID 1 MG TABLET PO SCH (10:10)
[2017-08-09] MEDS: CEFEPIME HCL 2 GM in NORMAL SALINE 100 ML IV SCH ×2 (10:33→23:02)
[2017-08-09] MEDS: NORMAL SALINE 1000 ML 1,000 ML IV PRN (11:34)
[2017-08-09] MEDS: OXYCODONE HCL IR 5 MG TABLET PO PRN (11:38)
[2017-08-09] MEDS ORDERED: DOCUSATE SODIUM 100 MG CAPSULE PO ONE (15:00)
--- NOTE | 2017-08-09 22:40 | PDOC PROGRESS REPORT ---
Subjective Progress Note for:: 08/09/17 Subjective:: She was admitted 4 management of bone pain crisis, hemolytic crisis Reason For Visit: BONE PAIN CRISIS/HEMOLYTIC CRISIS/ Physical Exam Vital Signs: Temp Pulse Resp BP Pulse Ox 99.1 F 80 14 91/48 L 96 08/09/17 16:00 08/09/17 16:00 08/09/17 16:00 08/09/17 16:00 08/09/17 16:00 Intake & Output 08/08/17 08/09/17 08/10/17 06:59 06:59 06:59 Intake Total 3537 4193 1984 Output Total 2400 4800 1600 Balance 1137 -607 384 Weight 64.6 kg 64.7 kg General appearance: PRESENT: no acute distress Eye exam: PRESENT: PERRLA Respiratory exam: PRESENT: clear to auscultation carolyn Cardiovascular exam: PRESENT: +S1, +S2 GI/Abdominal exam: PRESENT: soft Results Laboratory Results: 08/07/17 05:00 08/07/17 05:00 08/04/17 08/05/17 08/05/17 22:39 04:35 04:35 Troponin I < 0.012 < 0.012 NT-Pro-B Natriuret Pep 265 H 08/05/17 08/06/17 08/07/17 15:45 06:15 06:59 Troponin I < 0.012 NT-Pro-B Natriuret Pep 380 H 302 H Impressions: Chest CT 08/04/17 00:00 IMPRESSION: Small area patchy airspace disease is present in the posterior segment of the right upper lobe. Small areas of subsegmental atelectasis are present in the posterior segments of both lower lobes. No pleural effusion. Chest X-Ray 08/04/17 16:18 IMPRESSION: No acute consolidations or pleural effusions are identified. There is some prominence of the bronchovascular markings. Other findings as noted above Assessment & Plan - Diagnosis (1) Hemolytic crisis Is this a current diagnosis for this admission?: Yes (2) Sickle-cell anemia with crisis Is this a current diagnosis for this admission?: Yes (3) Pneumonia Qualifiers: Pneumonia type: due to unspecified organism Laterality: right Lung location: upper lobe of lung Qualified Code(s): J18.1 - Lobar pneumonia, unspecified organism Is this a current diagnosis for this admission?: Yes
[2017-08-09] MEDS: RIVAROXABAN 10 MG TABLET PO SCH (23:01)
[2017-08-09] MEDS: LEVOFLOXACIN 750 MG TABLET PO SCH (23:02)
[2017-08-10] MEDS: HYDROMORPHONE HCL INJ/PF 2 MG/ML AMPULE IV PRN ×7 (02:17→22:39)
[2017-08-10] MEDS: GABAPENTIN 300 MG CAPSULE PO SCH ×3 (05:34→21:16)
[2017-08-10] MEDS: OXYCODONE HCL SR 40 MG TABLET PO SCH ×3 (05:34→21:16)
[2017-08-10] MEDS: ONDANSETRON HCL INJ/PF 4 MG/2 ML SDV IV PRN ×3 (05:35→19:13)
[2017-08-10] MEDS: NORMAL SALINE 1000 ML 1,000 ML IV PRN ×2 (06:12→17:55)
[2017-08-10] MEDS: OXYCODONE HCL IR 5 MG TABLET PO PRN ×2 (07:55→17:52)
[2017-08-10] MEDS: MULTIVITAMIN TABLET PO SCH (10:12)
[2017-08-10] MEDS: DOCUSATE SODIUM 100 MG CAPSULE PO SCH ×2 (10:12→17:45)
[2017-08-10] MEDS: DULOXETINE HCL 20 MG CAPSULE.DR PO SCH (10:13)
[2017-08-10] MEDS: FOLIC ACID 1 MG TABLET PO SCH (10:13)
[2017-08-10] MEDS: HYDROXYUREA 500 MG CAPSULE PO SCH ×2 (10:13→17:46)
[2017-08-10] MEDS: CEFEPIME HCL 2 GM in NORMAL SALINE 100 ML IV SCH (10:23)
[2017-08-10] MEDS ORDERED: LACTULOSE SYRUP 20 GM/30 ML UDCUP PO ONE (12:00)
[2017-08-10] MEDS ORDERED: DIPHENHYDRAMINE HCL 25 MG CAPSULE PO PRN (13:51)
--- NOTE | 2017-08-10 20:29 | PDOC PROGRESS REPORT ---
Subjective Progress Note for:: 08/10/17 Subjective:: Patient was seen by the bedside, she continues to improve Reason For Visit: BONE PAIN CRISIS/HEMOLYTIC CRISIS/ Physical Exam Vital Signs: Temp Pulse Resp BP Pulse Ox 98.8 F 70 14 92/52 L 95 08/10/17 16:00 08/10/17 16:00 08/10/17 16:00 08/10/17 16:00 08/10/17 16:00 Intake & Output 08/09/17 08/10/17 08/11/17 06:59 06:59 06:59 Intake Total 4193 2634 1290 Output Total 4800 4300 1900 Balance -838 -8081 -097 Weight 64.7 kg 66.4 kg General appearance: PRESENT: no acute distress, well-developed, well-nourished Head exam: PRESENT: atraumatic, normocephalic Eye exam: PRESENT: conjunctiva pink, EOMI, PERRLA Ear exam: PRESENT: normal external ear exam Mouth exam: PRESENT: moist, tongue midline Neck exam: PRESENT: full ROM Respiratory exam: PRESENT: clear to auscultation carolyn Cardiovascular exam: PRESENT: RRR, +S1, +S2 Pulses: PRESENT: normal dorsalis pedis pul, +2 pedal pulses bilateral Vascular exam: PRESENT: normal capillary refill GI/Abdominal exam: PRESENT: normal bowel sounds, soft Rectal exam: PRESENT: deferred Neurological exam: PRESENT: alert, awake, oriented to person, oriented to place , oriented to time, oriented to situation, CN II-XII grossly intact Psychiatric exam: PRESENT: appropriate affect, normal mood Skin exam: PRESENT: dry, intact, warm Results Laboratory Results: 08/07/17 05:00 08/07/17 05:00 08/05/17 04:35 Blood Blood Culture - Final NO GROWTH IN 5 DAYS 08/04/17 22:39 Blood Blood Culture - Final NO GROWTH IN 5 DAYS 08/04/17 08/05/17 08/05/17 22:39 04:35 04:35 Troponin I < 0.012 < 0.012 NT-Pro-B Natriuret Pep 265 H 08/05/17 08/06/17 08/07/17 15:45 06:15 06:59 Troponin I < 0.012 NT-Pro-B Natriuret Pep 380 H 302 H Impressions: Chest CT 08/04/17 00:00 IMPRESSION: Small area patchy airspace disease is present in the posterior segment of the right upper lobe. Small areas of subsegmental atelectasis are present in the posterior segments of both lower lobes. No pleural effusion. Chest X-Ray 08/04/17 16:18 IMPRESSION: No acute consolidations or pleural effusions are identified. There is some prominence of the bronchovascular markings. Other findings as noted above Assessment & Plan - Diagnosis (1) Hemolytic crisis Is this a current diagnosis for this admission?: Yes (2) Sickle-cell anemia with crisis Is this a current diagnosis for this admission?: Yes (3) Pneumonia Qualifiers: Pneumonia type: due to unspecified organism Laterality: right Lung location: upper lobe of lung Qualified Code(s): J18.1 - Lobar pneumonia, unspecified organism Is this a current diagnosis for this admission?: Yes
[2017-08-10] MEDS: LEVOFLOXACIN 750 MG TABLET PO SCH (21:16)
[2017-08-10] MEDS: RIVAROXABAN 10 MG TABLET PO SCH (21:16)
[2017-08-11] MEDS: HYDROMORPHONE HCL INJ/PF 2 MG/ML AMPULE IV PRN ×7 (01:43→21:58)
[2017-08-11] MEDS: ONDANSETRON HCL INJ/PF 4 MG/2 ML SDV IV PRN ×4 (01:43→18:41)
[2017-08-11] MEDS: OXYCODONE HCL SR 40 MG TABLET PO SCH ×2 (05:22→13:50)
[2017-08-11] MEDS: GABAPENTIN 300 MG CAPSULE PO SCH ×3 (05:22→21:58)
[2017-08-11] MEDS: DULOXETINE HCL 20 MG CAPSULE.DR PO SCH (08:42)
[2017-08-11] MEDS: DOCUSATE SODIUM 100 MG CAPSULE PO SCH ×2 (08:45→17:51)
[2017-08-11] MEDS: HYDROXYUREA 500 MG CAPSULE PO SCH ×2 (08:46→17:51)
[2017-08-11] MEDS: FOLIC ACID 1 MG TABLET PO SCH (08:46)
[2017-08-11] MEDS: MULTIVITAMIN TABLET PO SCH (08:46)
[2017-08-11] MEDS: NORMAL SALINE 1000 ML 1,000 ML IV PRN ×2 (12:33→22:04)
[2017-08-11] MEDS: OXYCODONE HCL IR 5 MG TABLET PO PRN (17:51)
[2017-08-11] MEDS: RIVAROXABAN 10 MG TABLET PO SCH (21:58)
[2017-08-11] MEDS: LEVOFLOXACIN 750 MG TABLET PO SCH (21:58)
--- NOTE | 2017-08-11 21:58 | PDOC PROGRESS REPORT ---
Subjective Progress Note for:: 08/11/17 Subjective:: Patient was seen by the bedside, she continues to improve Reason For Visit: BONE PAIN CRISIS/HEMOLYTIC CRISIS/ Physical Exam Vital Signs: Temp Pulse Resp BP Pulse Ox 98.5 F 81 22 H 100/66 97 08/11/17 20:37 08/11/17 20:37 08/11/17 20:37 08/11/17 20:37 08/11/17 20:37 Intake & Output 08/10/17 08/11/17 08/12/17 06:59 06:59 06:59 Intake Total 2634 2750 1847 Output Total 4300 1900 1100 Balance -1666 850 747 Weight 66.4 kg 67.8 kg General appearance: PRESENT: mild distress Head exam: PRESENT: atraumatic, normocephalic Eye exam: ABSENT: scleral icterus Ear exam: PRESENT: normal external ear exam Mouth exam: PRESENT: moist, tongue midline Neck exam: PRESENT: full ROM Respiratory exam: PRESENT: clear to auscultation carolyn Cardiovascular exam: PRESENT: RRR, +S1, +S2 Vascular exam: PRESENT: normal capillary refill GI/Abdominal exam: PRESENT: normal bowel sounds, soft Rectal exam: PRESENT: deferred Neurological exam: PRESENT: alert. ABSENT: motor sensory deficit Psychiatric exam: PRESENT: appropriate affect, normal mood Skin exam: PRESENT: dry, intact, warm. ABSENT: cyanosis, rash Results Laboratory Results: 08/07/17 05:00 08/07/17 05:00 08/04/17 08/05/17 08/05/17 22:39 04:35 04:35 Troponin I < 0.012 < 0.012 NT-Pro-B Natriuret Pep 265 H 08/05/17 08/06/17 08/07/17 15:45 06:15 06:59 Troponin I < 0.012 NT-Pro-B Natriuret Pep 380 H 302 H Impressions: Chest CT 08/04/17 00:00 IMPRESSION: Small area patchy airspace disease is present in the posterior segment of the right upper lobe. Small areas of subsegmental atelectasis are present in the posterior segments of both lower lobes. No pleural effusion. Chest X-Ray 08/04/17 16:18 IMPRESSION: No acute consolidations or pleural effusions are identified. There is some prominence of the bronchovascular markings. Other findings as noted above Assessment & Plan - Diagnosis (1) Hemolytic crisis Is this a current diagnosis for this admission?: Yes (2) Sickle-cell anemia with crisis Is this a current diagnosis for this admission?: Yes (3) Pneumonia Qualifiers: Pneumonia type: due to unspecified organism Laterality: right Lung location: upper lobe of lung Qualified Code(s): J18.1 - Lobar pneumonia, unspecified organism Is this a current diagnosis for this admission?: Yes
[2017-08-12] MEDS: ONDANSETRON HCL INJ/PF 4 MG/2 ML SDV IV PRN ×4 (00:58→20:17)
[2017-08-12] MEDS: HYDROMORPHONE HCL INJ/PF 2 MG/ML AMPULE IV PRN ×8 (00:59→23:28)
[2017-08-12] MEDS: GABAPENTIN 300 MG CAPSULE PO SCH ×3 (05:40→21:40)
[2017-08-12] MEDS: FOLIC ACID 1 MG TABLET PO SCH (10:44)
[2017-08-12] MEDS: DOCUSATE SODIUM 100 MG CAPSULE PO SCH ×2 (10:44→16:53)
[2017-08-12] MEDS: HYDROXYUREA 500 MG CAPSULE PO SCH ×2 (10:45→16:53)
[2017-08-12] MEDS: MULTIVITAMIN TABLET PO SCH (10:46)
[2017-08-12] MEDS: DULOXETINE HCL 20 MG CAPSULE.DR PO SCH (10:46)
[2017-08-12] MEDS: OXYCODONE HCL IR 5 MG TABLET PO PRN (11:53)
[2017-08-12] MEDS ORDERED: HYDROMORPHONE HCL INJ/PF 2 MG/ML AMPULE IV PRN (19:29)
[2017-08-12] MEDS: OXYCODONE HCL SR 40 MG TABLET PO SCH (21:39)
[2017-08-12] MEDS: RIVAROXABAN 10 MG TABLET PO SCH (21:40)
[2017-08-12] MEDS: LEVOFLOXACIN 750 MG TABLET PO SCH (21:40)
--- NOTE | 2017-08-12 22:17 | PDOC PROGRESS REPORT ---
Subjective Progress Note for:: 08/12/17 Subjective:: She continues to complain of pain she said the present dose of Dilaudid, 1 mg every 4 hours as needed is not strong enough for the control pain she is requesting to have the dose increase to 2 mg every 4 hours as needed for pain control Reason For Visit: BONE PAIN CRISIS/HEMOLYTIC CRISIS/ Physical Exam Vital Signs: Temp Pulse Resp BP Pulse Ox 99.3 F 69 18 114/69 98 08/12/17 19:34 08/12/17 19:34 08/12/17 19:34 08/12/17 19:34 08/12/17 19:34 Intake & Output 08/11/17 08/12/17 08/13/17 06:59 06:59 06:59 Intake Total 2750 2813 1347 Output Total 1900 3800 Balance 850 -987 1347 Weight 67.8 kg 66.4 kg General appearance: PRESENT: no acute distress Eye exam: PRESENT: PERRLA Respiratory exam: PRESENT: clear to auscultation carolyn Cardiovascular exam: PRESENT: +S1, +S2 GI/Abdominal exam: PRESENT: soft Neurological exam: PRESENT: alert Results Laboratory Results: 08/07/17 05:00 08/07/17 05:00 08/04/17 08/05/17 08/05/17 22:39 04:35 04:35 Troponin I < 0.012 < 0.012 NT-Pro-B Natriuret Pep 265 H 08/05/17 08/06/17 08/07/17 15:45 06:15 06:59 Troponin I < 0.012 NT-Pro-B Natriuret Pep 380 H 302 H Impressions: Chest CT 08/04/17 00:00 IMPRESSION: Small area patchy airspace disease is present in the posterior segment of the right upper lobe. Small areas of subsegmental atelectasis are present in the posterior segments of both lower lobes. No pleural effusion. Chest X-Ray 08/04/17 16:18 IMPRESSION: No acute consolidations or pleural effusions are identified. There is some prominence of the bronchovascular markings. Other findings as noted above Assessment & Plan - Diagnosis (1) Hemolytic crisis Is this a current diagnosis for this admission?: Yes (2) Sickle-cell anemia with crisis Is this a current diagnosis for this admission?: Yes (3) Pneumonia Qualifiers: Pneumonia type: due to unspecified organism Laterality: right Lung location: upper lobe of lung Qualified Code(s): J18.1 - Lobar pneumonia, unspecified organism Is this a current diagnosis for this admission?: Yes
[2017-08-12] MEDS: NORMAL SALINE 1000 ML 1,000 ML IV PRN (23:29)
[2017-08-13] MEDS: ONDANSETRON HCL INJ/PF 4 MG/2 ML SDV IV PRN ×5 (02:28→23:07)
[2017-08-13] MEDS: HYDROMORPHONE HCL INJ/PF 2 MG/ML AMPULE IV PRN ×8 (02:29→23:06)
[2017-08-13] MEDS: OXYCODONE HCL IR 5 MG TABLET PO PRN ×3 (04:47→22:22)
[2017-08-13] MEDS: GABAPENTIN 300 MG CAPSULE PO SCH ×3 (06:16→21:15)
[2017-08-13] MEDS: OXYCODONE HCL SR 40 MG TABLET PO SCH ×3 (06:16→21:15)
[2017-08-13] MEDS: DOCUSATE SODIUM 100 MG CAPSULE PO SCH ×2 (09:46→17:30)
[2017-08-13] MEDS: FOLIC ACID 1 MG TABLET PO SCH (09:46)
[2017-08-13] MEDS: MULTIVITAMIN TABLET PO SCH (09:46)
[2017-08-13] MEDS: HYDROXYUREA 500 MG CAPSULE PO SCH ×2 (09:46→17:30)
[2017-08-13] MEDS: DULOXETINE HCL 20 MG CAPSULE.DR PO SCH (09:46)
[2017-08-13] MEDS: DIPHENHYDRAMINE HCL 50 MG/ML VIAL IV PRN (20:32)
--- NOTE | 2017-08-13 21:00 | PDOC PROGRESS REPORT ---
Subjective Progress Note for:: 08/13/17 Subjective:: Patient was seen by the bedside she has no new complaints Reason For Visit: BONE PAIN CRISIS/HEMOLYTIC CRISIS/ Physical Exam Vital Signs: Temp Pulse Resp BP Pulse Ox 98.9 F 90 18 112/66 96 08/13/17 20:00 08/13/17 20:00 08/13/17 20:00 08/13/17 20:00 08/13/17 20:00 Intake & Output 08/12/17 08/13/17 08/14/17 06:59 06:59 06:59 Intake Total 2813 4218 2093 Output Total 3800 1000 2400 Balance -987 3218 -307 Weight 66.4 kg 64.3 kg General appearance: PRESENT: no acute distress, well-developed, well-nourished Head exam: PRESENT: atraumatic, normocephalic Eye exam: PRESENT: conjunctiva pink, EOMI, PERRLA Ear exam: PRESENT: normal external ear exam Mouth exam: PRESENT: moist, tongue midline Neck exam: PRESENT: full ROM Respiratory exam: PRESENT: clear to auscultation carolyn Cardiovascular exam: PRESENT: RRR, +S1, +S2 Vascular exam: PRESENT: normal capillary refill GI/Abdominal exam: PRESENT: normal bowel sounds, soft Rectal exam: PRESENT: deferred Neurological exam: PRESENT: alert, awake, oriented to person, oriented to place , oriented to time, oriented to situation, CN II-XII grossly intact Psychiatric exam: PRESENT: appropriate affect, normal mood Skin exam: PRESENT: dry, intact, warm. ABSENT: cyanosis, rash Results Laboratory Results: 08/07/17 05:00 08/07/17 05:00 08/04/17 08/05/17 08/05/17 22:39 04:35 04:35 Troponin I < 0.012 < 0.012 NT-Pro-B Natriuret Pep 265 H 08/05/17 08/06/17 08/07/17 15:45 06:15 06:59 Troponin I < 0.012 NT-Pro-B Natriuret Pep 380 H 302 H Impressions: Chest CT 08/04/17 00:00 IMPRESSION: Small area patchy airspace disease is present in the posterior segment of the right upper lobe. Small areas of subsegmental atelectasis are present in the posterior segments of both lower lobes. No pleural effusion. Chest X-Ray 08/04/17 16:18 IMPRESSION: No acute consolidations or pleural effusions are identified. There is some prominence of the bronchovascular markings. Other findings as noted above Assessment & Plan - Diagnosis (1) Hemolytic crisis Is this a current diagnosis for this admission?: Yes (2) Sickle-cell anemia with crisis Is this a current diagnosis for this admission?: Yes (3) Pneumonia Qualifiers: Pneumonia type: due to unspecified organism Laterality: right Lung location: upper lobe of lung Qualified Code(s): J18.1 - Lobar pneumonia, unspecified organism Is this a current diagnosis for this admission?: Yes
[2017-08-13] MEDS: LEVOFLOXACIN 750 MG TABLET PO SCH (21:15)
[2017-08-13] MEDS: RIVAROXABAN 10 MG TABLET PO SCH (21:15)
[2017-08-13 23:19] LABS: HEMATOCRIT 18.1 % (36.0-47.0); MEAN CORPUSCULAR HEMOGLOBIN 38.9 pg (27.0-33.4); MEAN CORPUSCULAR HGB CONC 35.3 g/dL (32.0-36.0); MEAN CORPUSCULAR VOLUME 110 fl (80-97); PLATELET COUNT 194 10^3/uL (150-450); RED BLOOD COUNT 1.64 10^6/uL (3.72-5.28); RED CELL DISTRIBUTION WIDTH 27.5 % (11.5-14.0); WHITE BLOOD COUNT 6.3 10^3/uL (4.0-10.5)
[2017-08-13 23:25] LABS: ALANINE AMINOTRANSFERASE 58 U/L (9-52); ALBUMIN 3.9 g/dL (3.5-5.0); ALKALINE PHOSPHATASE 128 U/L (38-126); ANION GAP 8 (5-19); ASPARTATE AMINO TRANSFERASE 81 U/L (14-36); BILIRUBIN,DIRECT 0.4 mg/dL (0.0-0.4); BILIRUBIN,TOTAL 3.8 mg/dL (0.2-1.3); BLOOD UREA NITROGEN 12 mg/dL (7-20); CARBON DIOXIDE 30 mmol/L (22-30); CHLORIDE 106 mmol/L (98-107); GLUCOSE 98 mg/dL (75-110); POTASSIUM 4.3 mmol/L (3.6-5.0); SODIUM 143.8 mmol/L (137-145)
[2017-08-13 23:48] LABS: HYPOCHROMASIA 2+; OVALOCYTES SLIGHT; POLYCHROMASIA SLIGHT; SCHISTOCYTES SLIGHT; SICKLE RED CELLS SLIGHT; STOMATOCYTES SLIGHT; TARGET CELLS SLIGHT
[2017-08-13 23:49] LABS: ANISOCYTOSIS 3+; PLATELET COMMENT ADEQUATE; POIKILOCYTOSIS 1+
[2017-08-13 23:52] LABS: HEMOGLOBIN 6.4 g/dL (12.0-15.5)
[2017-08-13 23:58] LABS: ABSOLUTE LYMPHOCYTES# (MANUAL) 2.8 10^3/uL (0.5-4.7); ABSOLUTE MONOCYTES # (MANUAL) 0.3 10^3/uL (0.1-1.4); ABSOLUTE NEUTROPHILS# (MANUAL) 2.9 10^3/uL (1.7-8.2); BASOPHILS % (MANUAL) 1 % (0-2); EOSINOPHILS % (MANUAL) 5 % (0-6); LYMPHOCYTES % (MANUAL) 44 % (13-45); MONOCYTES % (MANUAL) 4 % (3-13); NUCLEATED RED BLOOD CELLS 22 /100 WBC (0); SEGMENTED NEUTROPHILS % (MAN) 46 % (42-78); TOTAL CELLS COUNTED 100
[2017-08-14] MEDS: HYDROMORPHONE HCL INJ/PF 2 MG/ML AMPULE IV PRN ×8 (01:55→23:27)
[2017-08-14] MEDS: DIPHENHYDRAMINE HCL 50 MG/ML VIAL IV PRN ×4 (01:56→20:17)
[2017-08-14] MEDS: ONDANSETRON HCL INJ/PF 4 MG/2 ML SDV IV PRN ×4 (04:48→23:31)
[2017-08-14] MEDS: OXYCODONE HCL SR 40 MG TABLET PO SCH ×3 (05:05→21:44)
[2017-08-14] MEDS: GABAPENTIN 300 MG CAPSULE PO SCH ×3 (05:05→21:45)
[2017-08-14] MEDS: OXYCODONE HCL IR 5 MG TABLET PO PRN ×2 (06:14→17:56)
[2017-08-14 06:44] LABS: MEAN CORPUSCULAR HEMOGLOBIN 38.3 pg (27.0-33.4); MEAN CORPUSCULAR HGB CONC 34.9 g/dL (32.0-36.0); MEAN CORPUSCULAR VOLUME 110 fl (80-97); PLATELET COUNT 192 10^3/uL (150-450); RED BLOOD COUNT 1.64 10^6/uL (3.72-5.28); RED CELL DISTRIBUTION WIDTH 27.2 % (11.5-14.0); WHITE BLOOD COUNT 6.4 10^3/uL (4.0-10.5)
[2017-08-14 06:48] LABS: ALANINE AMINOTRANSFERASE 51 U/L (9-52); ALKALINE PHOSPHATASE 134 U/L (38-126); ANION GAP 10 (5-19); ASPARTATE AMINO TRANSFERASE 78 U/L (14-36); BILIRUBIN,DIRECT 0.4 mg/dL (0.0-0.4); BILIRUBIN,TOTAL 3.9 mg/dL (0.2-1.3); BLOOD UREA NITROGEN 12 mg/dL (7-20); CALCIUM 8.8 mg/dL (8.4-10.2); CARBON DIOXIDE 28 mmol/L (22-30); CHLORIDE 105 mmol/L (98-107); GLUCOSE 112 mg/dL (75-110); POTASSIUM 4.2 mmol/L (3.6-5.0); SODIUM 143.4 mmol/L (137-145)
[2017-08-14 07:27] LABS: HEMOGLOBIN 6.3 g/dL (12.0-15.5)
[2017-08-14 07:35] LABS: ABSOLUTE LYMPHOCYTES# (MANUAL) 3.2 10^3/uL (0.5-4.7); ABSOLUTE MONOCYTES # (MANUAL) 0.1 10^3/uL (0.1-1.4); ABSOLUTE NEUTROPHILS# (MANUAL) 2.8 10^3/uL (1.7-8.2); BASOPHILS % (MANUAL) 3 % (0-2); EOSINOPHILS % (MANUAL) 2 % (0-6); LYMPHOCYTES % (MANUAL) 50 % (13-45); MONOCYTES % (MANUAL) 2 % (3-13); NUCLEATED RED BLOOD CELLS 16 /100 WBC (0); SEGMENTED NEUTROPHILS % (MAN) 43 % (42-78); TOTAL CELLS COUNTED 100
[2017-08-14 07:36] LABS: PLATELET COMMENT ADEQUATE
[2017-08-14 07:38] LABS: ANISOCYTOSIS 3+; HYPOCHROMASIA 2+; OVALOCYTES SLIGHT; POIKILOCYTOSIS 1+; POLYCHROMASIA 1+; SICKLE RED CELLS SLIGHT
[2017-08-14] MEDS: MULTIVITAMIN TABLET PO SCH (09:40)
[2017-08-14] MEDS: FOLIC ACID 1 MG TABLET PO SCH (09:40)
[2017-08-14] MEDS: DOCUSATE SODIUM 100 MG CAPSULE PO SCH ×2 (09:40→17:15)
[2017-08-14] MEDS: DULOXETINE HCL 20 MG CAPSULE.DR PO SCH (09:40)
[2017-08-14] MEDS: HYDROXYUREA 500 MG CAPSULE PO SCH ×2 (09:40→17:15)
[2017-08-14] MEDS: LEVOFLOXACIN 750 MG TABLET PO SCH (21:45)
[2017-08-14] MEDS: RIVAROXABAN 10 MG TABLET PO SCH (21:45)
[2017-08-15] MEDS: OXYCODONE HCL IR 5 MG TABLET PO PRN (00:52)
[2017-08-15] MEDS: HYDROMORPHONE HCL INJ/PF 2 MG/ML AMPULE IV PRN ×8 (02:27→23:58)
[2017-08-15] MEDS: DIPHENHYDRAMINE HCL 50 MG/ML VIAL IV PRN ×4 (02:27→21:00)
[2017-08-15] MEDS: NORMAL SALINE 1000 ML 1,000 ML IV PRN (02:31)
[2017-08-15] MEDS: ONDANSETRON HCL INJ/PF 4 MG/2 ML SDV IV PRN ×4 (05:33→23:58)
[2017-08-15] MEDS: OXYCODONE HCL SR 40 MG TABLET PO SCH ×3 (06:37→21:47)
[2017-08-15] MEDS: GABAPENTIN 300 MG CAPSULE PO SCH ×3 (06:38→21:48)
[2017-08-15] MEDS: DULOXETINE HCL 20 MG CAPSULE.DR PO SCH (09:16)
[2017-08-15] MEDS: MULTIVITAMIN TABLET PO SCH (09:16)
[2017-08-15] MEDS: HYDROXYUREA 500 MG CAPSULE PO SCH ×2 (09:16→19:45)
[2017-08-15] MEDS: FOLIC ACID 1 MG TABLET PO SCH (09:17)
[2017-08-15] MEDS: DOCUSATE SODIUM 100 MG CAPSULE PO SCH ×2 (09:17→17:58)
[2017-08-15] MEDS: RIVAROXABAN 10 MG TABLET PO SCH (21:48)
--- NOTE | 2017-08-15 21:54 | PDOC PROGRESS REPORT ---
Subjective Progress Note for:: 08/15/17 Subjective:: Patient was seen by the bedside she has no new complaints Reason For Visit: BONE PAIN CRISIS/HEMOLYTIC CRISIS/ Physical Exam Vital Signs: Temp Pulse Resp BP Pulse Ox 98.9 F 80 16 96/50 L 92 08/15/17 19:51 08/15/17 19:51 08/15/17 19:51 08/15/17 19:51 08/15/17 19:51 Intake & Output 08/14/17 08/15/17 08/16/17 06:59 06:59 06:59 Intake Total 3798 3943 1903 Output Total 5000 1500 Balance -1202 2443 1903 Weight 65.3 kg 70.7 kg General appearance: PRESENT: no acute distress Eye exam: PRESENT: PERRLA Respiratory exam: PRESENT: clear to auscultation carolyn GI/Abdominal exam: PRESENT: soft Neurological exam: PRESENT: alert Results Laboratory Results: 08/14/17 06:30 08/14/17 06:30 08/04/17 08/05/17 08/05/17 22:39 04:35 04:35 Troponin I < 0.012 < 0.012 NT-Pro-B Natriuret Pep 265 H 08/05/17 08/06/17 08/07/17 15:45 06:15 06:59 Troponin I < 0.012 NT-Pro-B Natriuret Pep 380 H 302 H Impressions: Chest CT 08/04/17 00:00 IMPRESSION: Small area patchy airspace disease is present in the posterior segment of the right upper lobe. Small areas of subsegmental atelectasis are present in the posterior segments of both lower lobes. No pleural effusion. Chest X-Ray 08/04/17 16:18 IMPRESSION: No acute consolidations or pleural effusions are identified. There is some prominence of the bronchovascular markings. Other findings as noted above Assessment & Plan - Diagnosis (1) Hemolytic crisis Is this a current diagnosis for this admission?: Yes (2) Sickle-cell anemia with crisis Is this a current diagnosis for this admission?: Yes (3) Pneumonia Qualifiers: Pneumonia type: due to unspecified organism Laterality: right Lung location: upper lobe of lung Qualified Code(s): J18.1 - Lobar pneumonia, unspecified organism Is this a current diagnosis for this admission?: Yes
[2017-08-16] MEDS: OXYCODONE HCL IR 5 MG TABLET PO PRN (01:00)
[2017-08-16] MEDS: DIPHENHYDRAMINE HCL 50 MG/ML VIAL IV PRN ×4 (03:00→21:00)
[2017-08-16] MEDS: HYDROMORPHONE HCL INJ/PF 2 MG/ML AMPULE IV PRN ×8 (03:00→23:58)
[2017-08-16] MEDS: ONDANSETRON HCL INJ/PF 4 MG/2 ML SDV IV PRN ×4 (04:19→23:58)
[2017-08-16] MEDS: OXYCODONE HCL SR 40 MG TABLET PO SCH ×3 (05:07→21:01)
[2017-08-16] MEDS: GABAPENTIN 300 MG CAPSULE PO SCH ×3 (05:08→21:00)
[2017-08-16] MEDS: NORMAL SALINE 1000 ML 1,000 ML IV PRN (08:59)
[2017-08-16] MEDS: DULOXETINE HCL 20 MG CAPSULE.DR PO SCH (09:07)
[2017-08-16] MEDS: HYDROXYUREA 500 MG CAPSULE PO SCH ×2 (09:07→18:00)
[2017-08-16] MEDS: DOCUSATE SODIUM 100 MG CAPSULE PO SCH ×2 (09:07→18:00)
[2017-08-16] MEDS: FOLIC ACID 1 MG TABLET PO SCH (09:07)
[2017-08-16] MEDS: MULTIVITAMIN TABLET PO SCH (09:07)
[2017-08-16] MEDS: RIVAROXABAN 10 MG TABLET PO SCH (21:01)
[2017-08-17] MEDS: NORMAL SALINE 1000 ML 1,000 ML IV PRN (03:10)
[2017-08-17] MEDS: HYDROMORPHONE HCL INJ/PF 2 MG/ML AMPULE IV PRN ×7 (03:10→20:54)
[2017-08-17] MEDS: DIPHENHYDRAMINE HCL 50 MG/ML VIAL IV PRN ×4 (03:11→20:55)
[2017-08-17] MEDS: GABAPENTIN 300 MG CAPSULE PO SCH ×3 (06:07→21:03)
[2017-08-17] MEDS: OXYCODONE HCL SR 40 MG TABLET PO SCH ×3 (06:07→21:02)
[2017-08-17] MEDS: ONDANSETRON HCL INJ/PF 4 MG/2 ML SDV IV PRN ×3 (06:10→18:02)
[2017-08-17] MEDS: MULTIVITAMIN TABLET PO SCH (09:02)
[2017-08-17] MEDS: DULOXETINE HCL 20 MG CAPSULE.DR PO SCH (09:02)
[2017-08-17] MEDS: FOLIC ACID 1 MG TABLET PO SCH (09:02)
[2017-08-17] MEDS: DOCUSATE SODIUM 100 MG CAPSULE PO SCH ×2 (09:02→17:00)
[2017-08-17] MEDS: HYDROXYUREA 500 MG CAPSULE PO SCH ×2 (11:17→17:00)
--- NOTE | 2017-08-17 20:55 | PDOC PROGRESS REPORT ---
Subjective Progress Note for:: 08/16/17 Subjective:: She continues to complain of pain requiring intravenous Dilaudid, she is also requesting intravenous banana infusion Reason For Visit: BONE PAIN CRISIS/HEMOLYTIC CRISIS/ Physical Exam Vital Signs: Temp Pulse Resp BP Pulse Ox 99.7 F 83 16 108/48 L 98 08/17/17 16:09 08/17/17 16:09 08/17/17 16:09 08/17/17 16:09 08/17/17 16:09 Intake & Output 08/16/17 08/17/17 08/18/17 06:59 06:59 06:59 Intake Total 4423 4050 2378 Output Total 4550 2200 1400 Balance -127 1850 978 Weight 70 kg 70 kg General appearance: PRESENT: no acute distress Eye exam: PRESENT: PERRLA Respiratory exam: PRESENT: clear to auscultation carolyn Cardiovascular exam: PRESENT: +S1, +S2 GI/Abdominal exam: PRESENT: soft Results Laboratory Results: 08/14/17 06:30 08/14/17 06:30 08/04/17 08/05/17 08/05/17 22:39 04:35 04:35 Troponin I < 0.012 < 0.012 NT-Pro-B Natriuret Pep 265 H 08/05/17 08/06/17 08/07/17 15:45 06:15 06:59 Troponin I < 0.012 NT-Pro-B Natriuret Pep 380 H 302 H Impressions: Chest CT 08/04/17 00:00 IMPRESSION: Small area patchy airspace disease is present in the posterior segment of the right upper lobe. Small areas of subsegmental atelectasis are present in the posterior segments of both lower lobes. No pleural effusion. Chest X-Ray 08/04/17 16:18 IMPRESSION: No acute consolidations or pleural effusions are identified. There is some prominence of the bronchovascular markings. Other findings as noted above Assessment & Plan - Diagnosis (1) Hemolytic crisis Is this a current diagnosis for this admission?: Yes (2) Sickle-cell anemia with crisis Is this a current diagnosis for this admission?: Yes (3) Pneumonia Qualifiers: Pneumonia type: due to unspecified organism Laterality: right Lung location: upper lobe of lung Qualified Code(s): J18.1 - Lobar pneumonia, unspecified organism Is this a current diagnosis for this admission?: Yes
--- NOTE | 2017-08-17 20:58 | PDOC PROGRESS REPORT ---
Subjective Progress Note for:: 08/17/17 Subjective:: She continues to complain of pain requiring intravenous Dilaudid, she is also requesting intravenous banana infusion Reason For Visit: BONE PAIN CRISIS/HEMOLYTIC CRISIS/ Physical Exam Vital Signs: Temp Pulse Resp BP Pulse Ox 99.7 F 83 16 108/48 L 98 08/17/17 16:09 08/17/17 16:09 08/17/17 16:09 08/17/17 16:09 08/17/17 16:09 Intake & Output 08/16/17 08/17/17 08/18/17 06:59 06:59 06:59 Intake Total 4423 4050 2378 Output Total 4550 2200 1400 Balance -127 1850 978 Weight 70 kg 70 kg General appearance: PRESENT: no acute distress Head exam: PRESENT: atraumatic, normocephalic Eye exam: PRESENT: conjunctiva pink, EOMI, PERRLA Ear exam: PRESENT: normal external ear exam Mouth exam: PRESENT: moist, tongue midline Neck exam: PRESENT: full ROM Cardiovascular exam: PRESENT: RRR, +S1, +S2 Vascular exam: PRESENT: normal capillary refill GI/Abdominal exam: PRESENT: normal bowel sounds, soft Rectal exam: PRESENT: deferred Psychiatric exam: PRESENT: appropriate affect, normal mood Skin exam: PRESENT: dry, intact, warm Results Laboratory Results: 08/14/17 06:30 08/14/17 06:30 08/04/17 08/05/17 08/05/17 22:39 04:35 04:35 Troponin I < 0.012 < 0.012 NT-Pro-B Natriuret Pep 265 H 08/05/17 08/06/17 08/07/17 15:45 06:15 06:59 Troponin I < 0.012 NT-Pro-B Natriuret Pep 380 H 302 H Impressions: Chest CT 08/04/17 00:00 IMPRESSION: Small area patchy airspace disease is present in the posterior segment of the right upper lobe. Small areas of subsegmental atelectasis are present in the posterior segments of both lower lobes. No pleural effusion. Chest X-Ray 08/04/17 16:18 IMPRESSION: No acute consolidations or pleural effusions are identified. There is some prominence of the bronchovascular markings. Other findings as noted above Assessment & Plan - Diagnosis (1) Hemolytic crisis Is this a current diagnosis for this admission?: Yes (2) Sickle-cell anemia with crisis Is this a current diagnosis for this admission?: Yes (3) Pneumonia Qualifiers: Pneumonia type: due to unspecified organism Laterality: right Lung location: upper lobe of lung Qualified Code(s): J18.1 - Lobar pneumonia, unspecified organism Is this a current diagnosis for this admission?: Yes
[2017-08-17] MEDS: RIVAROXABAN 10 MG TABLET PO SCH (21:03)
[2017-08-17 21:44] LABS: HEMATOCRIT 16.7 % (36.0-47.0); MEAN CORPUSCULAR HEMOGLOBIN 39.3 pg (27.0-33.4); MEAN CORPUSCULAR HGB CONC 35.4 g/dL (32.0-36.0); MEAN CORPUSCULAR VOLUME 111 fl (80-97); PLATELET COUNT 166 10^3/uL (150-450); RED CELL DISTRIBUTION WIDTH 28.2 % (11.5-14.0); WHITE BLOOD COUNT 6.3 10^3/uL (4.0-10.5)
[2017-08-17 22:01] LABS: ALANINE AMINOTRANSFERASE 52 U/L (9-52); ALBUMIN 3.7 g/dL (3.5-5.0); ALKALINE PHOSPHATASE 135 U/L (38-126); ANION GAP 5 (5-19); ASPARTATE AMINO TRANSFERASE 75 U/L (14-36); BILIRUBIN,DIRECT 0.4 mg/dL (0.0-0.4); BLOOD UREA NITROGEN 9 mg/dL (7-20); CALCIUM 8.7 mg/dL (8.4-10.2); CARBON DIOXIDE 30 mmol/L (22-30); CHLORIDE 103 mmol/L (98-107); GLUCOSE 80 mg/dL (75-110); POTASSIUM 4.2 mmol/L (3.6-5.0); SODIUM 137.6 mmol/L (137-145); TOTAL PROTEIN 6.1 g/dL (6.3-8.2)
[2017-08-17] MEDS: NORMAL SALINE 1000 ML 1,000 ML with POTASSIUM CHLORIDE 20 MEQ, MAGNESIUM SULFATE 8 MEQ,... IV SCH ×5 (22:08)
[2017-08-17 22:14] LABS: ABSOLUTE LYMPHOCYTES# (MANUAL) 3.5 10^3/uL (0.5-4.7); ABSOLUTE MONOCYTES # (MANUAL) 0.1 10^3/uL (0.1-1.4); ABSOLUTE NEUTROPHILS# (MANUAL) 2.1 10^3/uL (1.7-8.2); BASOPHILS % (MANUAL) 2 % (0-2); EOSINOPHILS % (MANUAL) 7 % (0-6); LYMPHOCYTES % (MANUAL) 55 % (13-45); MONOCYTES % (MANUAL) 2 % (3-13); NUCLEATED RED BLOOD CELLS 9 /100 WBC (0); SEGMENTED NEUTROPHILS % (MAN) 34 % (42-78); TOTAL CELLS COUNTED 100
[2017-08-17 22:15] LABS: ANISOCYTOSIS 4+; PLATELET COMMENT ADEQUATE
[2017-08-17 22:17] LABS: OVALOCYTES SLIGHT; POIKILOCYTOSIS 1+; POLYCHROMASIA 1+; TARGET CELLS 1+
[2017-08-17 22:36] LABS: HEMOGLOBIN 5.9 g/dL (12.0-15.5)
[2017-08-18] MEDS: ONDANSETRON HCL INJ/PF 4 MG/2 ML SDV IV PRN ×3 (00:14→12:25)
[2017-08-18] MEDS: HYDROMORPHONE HCL INJ/PF 2 MG/ML AMPULE IV PRN ×8 (00:14→22:16)
[2017-08-18] MEDS: DIPHENHYDRAMINE HCL 50 MG/ML VIAL IV PRN ×4 (03:15→22:16)
[2017-08-18] MEDS: GABAPENTIN 300 MG CAPSULE PO SCH ×3 (06:14→22:16)
[2017-08-18] MEDS: OXYCODONE HCL SR 40 MG TABLET PO SCH ×3 (06:14→22:16)
[2017-08-18 06:54] LABS: HEMATOCRIT 16.8 % (36.0-47.0); MEAN CORPUSCULAR HEMOGLOBIN 38.5 pg (27.0-33.4); MEAN CORPUSCULAR HGB CONC 35.2 g/dL (32.0-36.0); MEAN CORPUSCULAR VOLUME 110 fl (80-97); PLATELET COUNT 177 10^3/uL (150-450); RED BLOOD COUNT 1.53 10^6/uL (3.72-5.28); RED CELL DISTRIBUTION WIDTH 28.1 % (11.5-14.0); WHITE BLOOD COUNT 6.3 10^3/uL (4.0-10.5)
[2017-08-18 06:56] LABS: ALANINE AMINOTRANSFERASE 51 U/L (9-52); ALBUMIN 3.7 g/dL (3.5-5.0); ALKALINE PHOSPHATASE 134 U/L (38-126); ANION GAP 9 (5-19); ASPARTATE AMINO TRANSFERASE 76 U/L (14-36); BILIRUBIN,DIRECT 0.6 mg/dL (0.0-0.4); BILIRUBIN,TOTAL 3.2 mg/dL (0.2-1.3); BLOOD UREA NITROGEN 8 mg/dL (7-20); CALCIUM 8.7 mg/dL (8.4-10.2); CARBON DIOXIDE 30 mmol/L (22-30); CHLORIDE 102 mmol/L (98-107); GLUCOSE 84 mg/dL (75-110); POTASSIUM 4.3 mmol/L (3.6-5.0); SODIUM 140.9 mmol/L (137-145); TOTAL PROTEIN 5.7 g/dL (6.3-8.2)
[2017-08-18 07:42] LABS: HEMOGLOBIN 5.9 g/dL (12.0-15.5)
[2017-08-18 07:46] LABS: ABSOLUTE LYMPHOCYTES# (MANUAL) 2.8 10^3/uL (0.5-4.7); ABSOLUTE MONOCYTES # (MANUAL) 0.3 10^3/uL (0.1-1.4); ABSOLUTE NEUTROPHILS# (MANUAL) 2.5 10^3/uL (1.7-8.2); BASOPHILS % (MANUAL) 1 % (0-2); EOSINOPHILS % (MANUAL) 10 % (0-6); LYMPHOCYTES % (MANUAL) 45 % (13-45); MONOCYTES % (MANUAL) 5 % (3-13); NUCLEATED RED BLOOD CELLS 13 /100 WBC (0); SEGMENTED NEUTROPHILS % (MAN) 39 % (42-78); TOTAL CELLS COUNTED 100
[2017-08-18 07:47] LABS: ANISOCYTOSIS 3+; HOWELL-JOLLY BODIES PRESENT; HYPERSEGMENTED NEUTROPHILS PRESENT; HYPOCHROMASIA 1+; OVALOCYTES 1+; PLATELET COMMENT ADEQUATE; POIKILOCYTOSIS 2+; POLYCHROMASIA 2+; SCHISTOCYTES SLIGHT; SICKLE RED CELLS SLIGHT; TOXIC GRANULATION 1+
[2017-08-18] MEDS: MULTIVITAMIN TABLET PO SCH (09:14)
[2017-08-18] MEDS: HYDROXYUREA 500 MG CAPSULE PO SCH ×2 (09:14→17:49)
[2017-08-18] MEDS: DOCUSATE SODIUM 100 MG CAPSULE PO SCH ×2 (09:14→17:50)
[2017-08-18] MEDS: FOLIC ACID 1 MG TABLET PO SCH (09:14)
[2017-08-18] MEDS: DULOXETINE HCL 20 MG CAPSULE.DR PO SCH (09:14)
[2017-08-18] MEDS: NORMAL SALINE 1000 ML 1,000 ML with POTASSIUM CHLORIDE 20 MEQ, MAGNESIUM SULFATE 8 MEQ,... IV SCH ×5 (22:16)
[2017-08-18] MEDS: RIVAROXABAN 10 MG TABLET PO SCH (22:16)
--- NOTE | 2017-08-18 22:28 | PDOC PROGRESS REPORT ---
Subjective Progress Note for:: 08/18/17 Subjective:: She was admitted for the management of hemolytic anemia with a background of bone pain crisis on admission she required blood transfusion hemoglobin is low Reason For Visit: BONE PAIN CRISIS/HEMOLYTIC CRISIS/ Physical Exam Vital Signs: Temp Pulse Resp BP Pulse Ox 99.3 F 67 20 103/62 95 08/18/17 19:21 08/18/17 19:21 08/18/17 19:21 08/18/17 19:21 08/18/17 19:21 Intake & Output 08/17/17 08/18/17 08/19/17 06:59 06:59 06:59 Intake Total 4050 3618 1711 Output Total 2200 4100 800 Balance 1850 -482 911 Weight 70 kg 70.7 kg General appearance: PRESENT: mild distress Eye exam: PRESENT: PERRLA Respiratory exam: PRESENT: clear to auscultation carolyn Cardiovascular exam: PRESENT: +S1, +S2 GI/Abdominal exam: PRESENT: soft Neurological exam: PRESENT: alert Results Laboratory Results: 08/18/17 06:15 08/18/17 06:15 08/17/17 08/17/17 08/18/17 21:30 22:25 06:15 WBC 6.3 6.3 RBC 1.50 L 1.53 L Hgb 5.9 L 5.9 L Hct 16.7 L 16.8 L MCV 111 H 110 H MCH 39.3 H 38.5 H MCHC 35.4 35.2 RDW 28.2 H 28.1 H Plt Count 166 177 Seg Neutrophils % Not Reportable Lymphocytes % Not Reportable Monocytes % Not Reportable Eosinophils % Not Reportable Basophils % Not Reportable Absolute Neutrophils Not Reportable Absolute Lymphocytes Not Reportable Absolute Monocytes Not Reportable Absolute Eosinophils Not Reportable Absolute Basophils Not Reportable Sodium Potassium Chloride Carbon Dioxide Anion Gap BUN Creatinine Est GFR ( Amer) Est GFR (Non-Af Amer) Glucose Calcium Total Bilirubin AST ALT Alkaline Phosphatase Total Protein Albumin Blood Type O POSITIVE Antibody Screen NEGATIVE 08/18/17 06:15 WBC RBC Hgb Hct MCV MCH MCHC RDW Plt Count Seg Neutrophils % Lymphocytes % Monocytes % Eosinophils % Basophils % Absolute Neutrophils Absolute Lymphocytes Absolute Monocytes Absolute Eosinophils Absolute Basophils Sodium 140.9 Potassium 4.3 Chloride 102 Carbon Dioxide 30 Anion Gap 9 BUN 8 Creatinine 0.81 Est GFR ( Amer) > 60 Est GFR (Non-Af Amer) > 60 Glucose 84 Calcium 8.7 Total Bilirubin 3.2 H AST 76 H ALT 51 Alkaline Phosphatase 134 H Total Protein 5.7 L Albumin 3.7 Blood Type Antibody Screen 08/04/17 08/05/17 08/05/17 22:39 04:35 04:35 Troponin I < 0.012 < 0.012 NT-Pro-B Natriuret Pep 265 H 08/05/17 08/06/17 08/07/17 15:45 06:15 06:59 Troponin I < 0.012 NT-Pro-B Natriuret Pep 380 H 302 H Impressions: Chest CT 08/04/17 00:00 IMPRESSION: Small area patchy airspace disease is present in the posterior segment of the right upper lobe. Small areas of subsegmental atelectasis are present in the posterior segments of both lower lobes. No pleural effusion. Chest X-Ray 08/04/17 16:18 IMPRESSION: No acute consolidations or pleural effusions are identified. There is some prominence of the bronchovascular markings. Other findings as noted above Assessment & Plan - Diagnosis (1) Hemolytic crisis Is this a current diagnosis for this admission?: Yes (2) Sickle-cell anemia with crisis Is this a current diagnosis for this admission?: Yes (3) Pneumonia Qualifiers: Pneumonia type: due to unspecified organism Laterality: right Lung location: upper lobe of lung Qualified Code(s): J18.1 - Lobar pneumonia, unspecified organism Is this a current diagnosis for this admission?: Yes
[2017-08-19] MEDS: HYDROMORPHONE HCL INJ/PF 2 MG/ML AMPULE IV PRN ×6 (01:14→20:39)
[2017-08-19] MEDS: ONDANSETRON HCL INJ/PF 4 MG/2 ML SDV IV PRN ×3 (01:15→20:40)
[2017-08-19] MEDS: DIPHENHYDRAMINE HCL 50 MG/ML VIAL IV PRN ×3 (04:02→17:11)
[2017-08-19] MEDS: HYDROXYUREA 500 MG CAPSULE PO SCH ×2 (09:32→17:11)
[2017-08-19] MEDS: FOLIC ACID 1 MG TABLET PO SCH (09:32)
[2017-08-19] MEDS: DULOXETINE HCL 20 MG CAPSULE.DR PO SCH (09:32)
[2017-08-19] MEDS: DOCUSATE SODIUM 100 MG CAPSULE PO SCH ×2 (09:32→17:11)
[2017-08-19] MEDS: MULTIVITAMIN TABLET PO SCH (09:33)
[2017-08-19] MEDS: GABAPENTIN 300 MG CAPSULE PO SCH ×3 (09:50→22:34)
[2017-08-19] MEDS: OXYCODONE HCL SR 40 MG TABLET PO SCH ×2 (09:50→13:56)
[2017-08-19] MEDS: EPOETIN ALFA INJ 40000 UNIT/1 ML (ONCOLOGY) SUBCUT SCH (10:53)
--- NOTE | 2017-08-19 21:55 | PDOC PROGRESS REPORT ---
Subjective Progress Note for:: 08/19/17 Subjective:: She continues to feel unwell yesterday the hemoglobin was 5 but she was not transfused it was felt that this could be partly due to dilutional yesterday she was prescribed banana infusion Reason For Visit: BONE PAIN CRISIS/HEMOLYTIC CRISIS/ Physical Exam Vital Signs: Temp Pulse Resp BP Pulse Ox 99.1 F 73 18 109/63 96 08/19/17 20:06 08/19/17 20:06 08/19/17 20:06 08/19/17 20:06 08/19/17 20:06 Intake & Output 08/18/17 08/19/17 08/20/17 06:59 06:59 06:59 Intake Total 3619 2155 2914 Output Total 4100 3700 2400 Balance -482 -1545 514 Weight 70.7 kg 70.7 kg General appearance: PRESENT: mild distress Head exam: PRESENT: atraumatic, normocephalic Eye exam: PRESENT: conjunctiva pink, EOMI, PERRLA. ABSENT: scleral icterus Ear exam: PRESENT: normal external ear exam Mouth exam: PRESENT: moist, tongue midline Neck exam: PRESENT: full ROM Respiratory exam: PRESENT: clear to auscultation carolyn Cardiovascular exam: PRESENT: RRR, +S1, +S2 Pulses: PRESENT: normal dorsalis pedis pul, +2 pedal pulses bilateral Vascular exam: PRESENT: normal capillary refill GI/Abdominal exam: PRESENT: normal bowel sounds, soft Rectal exam: PRESENT: deferred Neurological exam: PRESENT: alert Skin exam: PRESENT: dry, intact, warm Results Laboratory Results: 08/18/17 06:15 08/18/17 06:15 08/04/17 08/05/17 08/05/17 22:39 04:35 04:35 Troponin I < 0.012 < 0.012 NT-Pro-B Natriuret Pep 265 H 08/05/17 08/06/17 08/07/17 15:45 06:15 06:59 Troponin I < 0.012 NT-Pro-B Natriuret Pep 380 H 302 H Impressions: Chest CT 08/04/17 00:00 IMPRESSION: Small area patchy airspace disease is present in the posterior segment of the right upper lobe. Small areas of subsegmental atelectasis are present in the posterior segments of both lower lobes. No pleural effusion. Chest X-Ray 08/04/17 16:18 IMPRESSION: No acute consolidations or pleural effusions are identified. There is some prominence of the bronchovascular markings. Other findings as noted above Assessment & Plan - Diagnosis (1) Hemolytic crisis Is this a current diagnosis for this admission?: Yes (2) Sickle-cell anemia with crisis Is this a current diagnosis for this admission?: Yes (3) Pneumonia Qualifiers: Pneumonia type: due to unspecified organism Laterality: right Lung location: upper lobe of lung Qualified Code(s): J18.1 - Lobar pneumonia, unspecified organism Is this a current diagnosis for this admission?: Yes - Plan Summary Plan Summary: Repeat CBC, continue other treatment
[2017-08-19] MEDS: RIVAROXABAN 10 MG TABLET PO SCH (22:34)
[2017-08-19] MEDS: NORMAL SALINE 1000 ML 1,000 ML with POTASSIUM CHLORIDE 20 MEQ, MAGNESIUM SULFATE 8 MEQ,... IV SCH ×5 (22:34)
[2017-08-20] MEDS: HYDROMORPHONE HCL INJ/PF 2 MG/ML AMPULE IV PRN ×8 (00:01→21:53)
[2017-08-20] MEDS: DIPHENHYDRAMINE HCL 50 MG/ML VIAL IV PRN ×4 (00:02→17:47)
[2017-08-20] MEDS: ONDANSETRON HCL INJ/PF 4 MG/2 ML SDV IV PRN ×4 (02:34→21:55)
[2017-08-20 03:09] LABS: HEMATOCRIT 25.1 % (36.0-47.0); MEAN CORPUSCULAR HEMOGLOBIN 35.9 pg (27.0-33.4); MEAN CORPUSCULAR HGB CONC 34.2 g/dL (32.0-36.0); PLATELET COUNT 185 10^3/uL (150-450); RED BLOOD COUNT 2.39 10^6/uL (3.72-5.28); RED CELL DISTRIBUTION WIDTH 28.5 % (11.5-14.0)
[2017-08-20 03:14] LABS: HEMOGLOBIN 8.6 g/dL (12.0-15.5)
[2017-08-20 03:15] LABS: MEAN CORPUSCULAR VOLUME 105 fl (80-97)
[2017-08-20 03:35] LABS: ABSOLUTE MONOCYTES # (MANUAL) 0.3 10^3/uL (0.1-1.4); ABSOLUTE NEUTROPHILS# (MANUAL) 2.3 10^3/uL (1.7-8.2); BASOPHILS % (MANUAL) 0 % (0-2); EOSINOPHILS % (MANUAL) 10 % (0-6); LYMPHOCYTES % (MANUAL) 40 % (13-45); MONOCYTES % (MANUAL) 5 % (3-13); NUCLEATED RED BLOOD CELLS 20 /100 WBC (0); SEGMENTED NEUTROPHILS % (MAN) 45 % (42-78); TOTAL CELLS COUNTED 100
[2017-08-20 03:46] LABS: ANISOCYTOSIS 4+; HOWELL-JOLLY BODIES PRESENT; OVALOCYTES 2+; PLATELET COMMENT ADEQUATE; POIKILOCYTOSIS 1+; TARGET CELLS 1+
[2017-08-20] MEDS: OXYCODONE HCL SR 40 MG TABLET PO SCH ×3 (06:05→22:04)
[2017-08-20] MEDS: GABAPENTIN 300 MG CAPSULE PO SCH ×3 (06:06→22:04)
[2017-08-20] MEDS: DULOXETINE HCL 20 MG CAPSULE.DR PO SCH (10:27)
[2017-08-20] MEDS: HYDROXYUREA 500 MG CAPSULE PO SCH ×2 (10:27→17:46)
[2017-08-20] MEDS: DOCUSATE SODIUM 100 MG CAPSULE PO SCH ×2 (10:28→17:47)
[2017-08-20] MEDS: FOLIC ACID 1 MG TABLET PO SCH (10:28)
[2017-08-20] MEDS: MULTIVITAMIN TABLET PO SCH (10:28)
--- NOTE | 2017-08-20 11:35 | PDOC PROGRESS REPORT ---
Subjective Progress Note for:: 08/20/17 Subjective:: Patient is currently doing fair Since still have a lot of pain Is complaining of stomach discomfort and heartburn Reason For Visit: BONE PAIN CRISIS/HEMOLYTIC CRISIS/ Physical Exam Vital Signs: Temp Pulse Resp BP Pulse Ox 99.0 F 69 16 97/55 L 96 08/20/17 04:00 08/20/17 07:00 08/20/17 00:40 08/20/17 00:40 08/20/17 00:40 Intake & Output 08/19/17 08/20/17 08/21/17 06:59 06:59 06:59 Intake Total 2155 4294 Output Total 3700 3150 Balance -1545 1144 Weight 70.7 kg 70.7 kg General appearance: PRESENT: no acute distress, well-developed, well-nourished Head exam: PRESENT: atraumatic, normocephalic Eye exam: PRESENT: conjunctiva pink, EOMI, PERRLA. ABSENT: scleral icterus Ear exam: PRESENT: normal external ear exam Mouth exam: PRESENT: moist, tongue midline Neck exam: PRESENT: full ROM. ABSENT: carotid bruit, JVD, lymphadenopathy, thyromegaly Respiratory exam: PRESENT: clear to auscultation carolyn Cardiovascular exam: PRESENT: RRR. ABSENT: diastolic murmur, rubs, systolic murmur Pulses: PRESENT: normal dorsalis pedis pul, +2 pedal pulses bilateral Vascular exam: PRESENT: normal capillary refill GI/Abdominal exam: PRESENT: normal bowel sounds, soft. ABSENT: distended, guarding, mass, organolmegaly, rebound, tenderness Rectal exam: PRESENT: deferred Neurological exam: PRESENT: alert, awake, oriented to person, oriented to place. ABSENT: motor sensory deficit Psychiatric exam: PRESENT: appropriate affect, normal mood. ABSENT: homicidal ideation, suicidal ideation Skin exam: PRESENT: dry, intact, warm. ABSENT: cyanosis, rash Results Laboratory Results: 08/20/17 02:03 08/18/17 06:15 08/20/17 02:03 WBC 5.0 RBC 2.39 L Hgb 8.6 L D Hct 25.1 L MCV 105 H D MCH 35.9 H MCHC 34.2 RDW 28.5 H Plt Count 185 Seg Neutrophils % Not Reportable Lymphocytes % Not Reportable Monocytes % Not Reportable Eosinophils % Not Reportable Basophils % Not Reportable Absolute Neutrophils Not Reportable Absolute Lymphocytes Not Reportable Absolute Monocytes Not Reportable Absolute Eosinophils Not Reportable Absolute Basophils Not Reportable 08/04/17 08/05/17 08/05/17 22:39 04:35 04:35 Troponin I < 0.012 < 0.012 NT-Pro-B Natriuret Pep 265 H 08/05/17 08/06/17 08/07/17 15:45 06:15 06:59 Troponin I < 0.012 NT-Pro-B Natriuret Pep 380 H 302 H Impressions: Chest CT 08/04/17 00:00 IMPRESSION: Small area patchy airspace disease is present in the posterior segment of the right upper lobe. Small areas of subsegmental atelectasis are present in the posterior segments of both lower lobes. No pleural effusion. Chest X-Ray 08/04/17 16:18 IMPRESSION: No acute consolidations or pleural effusions are identified. There is some prominence of the bronchovascular markings. 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
[2017-08-20] MEDS: NORMAL SALINE 1000 ML 1,000 ML IV PRN (11:38)
[2017-08-20] MEDS ORDERED: FAMOTIDINE 20 MG TABLET PO ONE (12:00)
[2017-08-20 12:44] LABS: HEMATOCRIT 28.6 % (36.0-47.0); MEAN CORPUSCULAR HEMOGLOBIN 36.5 pg (27.0-33.4); MEAN CORPUSCULAR HGB CONC 34.8 g/dL (32.0-36.0); MEAN CORPUSCULAR VOLUME 105 fl (80-97); PLATELET COUNT 196 10^3/uL (150-450); RED BLOOD COUNT 2.73 10^6/uL (3.72-5.28); RED CELL DISTRIBUTION WIDTH 28.4 % (11.5-14.0); WHITE BLOOD COUNT 5.3 10^3/uL (4.0-10.5)
[2017-08-20 13:09] LABS: ABSOLUTE LYMPHOCYTES# (MANUAL) 1.9 10^3/uL (0.5-4.7); ABSOLUTE MONOCYTES # (MANUAL) 0.3 10^3/uL (0.1-1.4); BASOPHILS % (MANUAL) 1 % (0-2); EOSINOPHILS % (MANUAL) 2 % (0-6); LYMPHOCYTES % (MANUAL) 34 % (13-45); MONOCYTES % (MANUAL) 5 % (3-13); NUCLEATED RED BLOOD CELLS 32 /100 WBC (0); SEGMENTED NEUTROPHILS % (MAN) 57 % (42-78); TOTAL CELLS COUNTED 100
[2017-08-20 13:11] LABS: ANISOCYTOSIS 2+; OVALOCYTES SLIGHT; POIKILOCYTOSIS 1+; POLYCHROMASIA SLIGHT; TARGET CELLS SLIGHT
[2017-08-20 13:12] LABS: PLATELET COMMENT ADEQUATE
[2017-08-20] MEDS ORDERED: ONDANSETRON HCL INJ/PF 4 MG/2 ML SDV ONE (21:44)
[2017-08-20] MEDS: NORMAL SALINE 1000 ML 1,000 ML with POTASSIUM CHLORIDE 20 MEQ, MAGNESIUM SULFATE 8 MEQ,... IV SCH ×5 (22:01)
[2017-08-20] MEDS: FAMOTIDINE 20 MG TABLET PO SCH (22:03)
[2017-08-20] MEDS: RIVAROXABAN 10 MG TABLET PO SCH (22:12)
[2017-08-21] MEDS: DIPHENHYDRAMINE HCL 50 MG/ML VIAL IV PRN ×4 (00:55→21:22)
[2017-08-21] MEDS: HYDROMORPHONE HCL INJ/PF 2 MG/ML AMPULE IV PRN ×3 (00:56→07:12)
[2017-08-21] MEDS: ONDANSETRON HCL INJ/PF 4 MG/2 ML SDV IV PRN ×2 (04:05→10:12)
[2017-08-21 06:08] LABS: ANION GAP 8 (5-19); BLOOD UREA NITROGEN 13 mg/dL (7-20); CALCIUM 9.1 mg/dL (8.4-10.2); CARBON DIOXIDE 27 mmol/L (22-30); CHLORIDE 103 mmol/L (98-107); GLUCOSE 112 mg/dL (75-110); SODIUM 137.7 mmol/L (137-145)
[2017-08-21] MEDS: GABAPENTIN 300 MG CAPSULE PO SCH ×3 (06:38→21:22)
[2017-08-21] MEDS: OXYCODONE HCL SR 40 MG TABLET PO SCH ×3 (06:38→21:22)
[2017-08-21] MEDS: NORMAL SALINE 1000 ML 1,000 ML IV PRN (09:59)
[2017-08-21] MEDS: FOLIC ACID 1 MG TABLET PO SCH (10:01)
[2017-08-21] MEDS: FAMOTIDINE 20 MG TABLET PO SCH ×2 (10:02→21:23)
[2017-08-21] MEDS: MULTIVITAMIN TABLET PO SCH (10:03)
[2017-08-21] MEDS: HYDROXYUREA 500 MG CAPSULE PO SCH ×2 (10:03→17:13)
[2017-08-21] MEDS: DOCUSATE SODIUM 100 MG CAPSULE PO SCH ×2 (10:04→17:13)
[2017-08-21] MEDS: DULOXETINE HCL 20 MG CAPSULE.DR PO SCH (10:04)
[2017-08-21] MEDS: OXYCODONE HCL IR 5 MG TABLET PO PRN ×2 (10:13→16:20)
--- NOTE | 2017-08-21 10:34 | PDOC PROGRESS REPORT ---
Subjective Progress Note for:: 08/21/17 Subjective:: Patient is currently doing fair Since still have a lot of pain Is complaining of stomach discomfort and heartburn Reason For Visit: BONE PAIN CRISIS/HEMOLYTIC CRISIS/ Physical Exam Vital Signs: Temp Pulse Resp BP Pulse Ox 98.2 F 74 18 97/57 L 98 08/21/17 07:13 08/21/17 07:13 08/21/17 07:13 08/21/17 07:13 08/21/17 07:13 Intake & Output 08/20/17 08/21/17 08/22/17 06:59 06:59 06:59 Intake Total 4294 3511 Output Total 3150 3700 Balance 1144 -189 Weight 70.7 kg 70.7 kg General appearance: PRESENT: no acute distress, well-developed, well-nourished Head exam: PRESENT: atraumatic, normocephalic Eye exam: PRESENT: conjunctiva pink, EOMI, PERRLA. ABSENT: scleral icterus Ear exam: PRESENT: normal external ear exam Mouth exam: PRESENT: moist, tongue midline Neck exam: PRESENT: full ROM. ABSENT: carotid bruit, JVD, lymphadenopathy, thyromegaly Respiratory exam: PRESENT: clear to auscultation carolyn Cardiovascular exam: PRESENT: RRR. ABSENT: diastolic murmur, rubs, systolic murmur Pulses: PRESENT: normal dorsalis pedis pul, +2 pedal pulses bilateral Vascular exam: PRESENT: normal capillary refill GI/Abdominal exam: PRESENT: normal bowel sounds, soft. ABSENT: distended, guarding, mass, organolmegaly, rebound, tenderness Rectal exam: PRESENT: deferred Neurological exam: PRESENT: alert, awake, oriented to person, oriented to place , oriented to time, oriented to situation, CN II-XII grossly intact. ABSENT: motor sensory deficit Psychiatric exam: PRESENT: appropriate affect, normal mood. ABSENT: homicidal ideation, suicidal ideation Skin exam: PRESENT: dry, intact, warm. ABSENT: cyanosis, rash Results Laboratory Results: 08/20/17 12:20 08/21/17 05:12 08/20/17 08/21/17 12:20 05:12 WBC 5.3 RBC 2.73 L Hgb 10.0 L Hct 28.6 L MCV 105 H MCH 36.5 H MCHC 34.8 RDW 28.4 H Plt Count 196 Seg Neutrophils % Not Reportable Lymphocytes % Not Reportable Monocytes % Not Reportable Eosinophils % Not Reportable Basophils % Not Reportable Absolute Neutrophils Not Reportable Absolute Lymphocytes Not Reportable Absolute Monocytes Not Reportable Absolute Eosinophils Not Reportable Absolute Basophils Not Reportable Sodium 137.7 Potassium 5.0 Chloride 103 Carbon Dioxide 27 Anion Gap 8 BUN 13 Creatinine 0.77 Est GFR ( Amer) > 60 Est GFR (Non-Af Amer) > 60 Glucose 112 H Calcium 9.1 08/04/17 08/05/17 08/05/17 22:39 04:35 04:35 Troponin I < 0.012 < 0.012 NT-Pro-B Natriuret Pep 265 H 08/05/17 08/06/17 08/07/17 15:45 06:15 06:59 Troponin I < 0.012 NT-Pro-B Natriuret Pep 380 H 302 H Impressions: Chest CT 08/04/17 00:00 IMPRESSION: Small area patchy airspace disease is present in the posterior segment of the right upper lobe. Small areas of subsegmental atelectasis are present in the posterior segments of both lower lobes. No pleural effusion. Chest X-Ray 08/04/17 16:18 IMPRESSION: No acute consolidations or pleural effusions are identified. There is some prominence of the bronchovascular markings. 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
[2017-08-21] MEDS: NORMAL SALINE 1000 ML 1,000 ML with POTASSIUM CHLORIDE 20 MEQ, MAGNESIUM SULFATE 8 MEQ,... IV SCH ×5 (21:23)
[2017-08-21] MEDS: RIVAROXABAN 10 MG TABLET PO SCH (21:23)
[2017-08-22] MEDS: OXYCODONE HCL IR 5 MG TABLET PO PRN ×3 (00:20→15:44)
[2017-08-22] MEDS: DIPHENHYDRAMINE HCL 50 MG/ML VIAL IV PRN ×4 (03:34→21:20)
[2017-08-22] MEDS: GABAPENTIN 300 MG CAPSULE PO SCH ×3 (05:36→21:19)
[2017-08-22] MEDS: OXYCODONE HCL SR 40 MG TABLET PO SCH ×3 (05:36→21:19)
[2017-08-22 06:42] LABS: ANION GAP 9 (5-19); BLOOD UREA NITROGEN 13 mg/dL (7-20); CALCIUM 9.1 mg/dL (8.4-10.2); CARBON DIOXIDE 27 mmol/L (22-30); CHLORIDE 101 mmol/L (98-107); GLUCOSE 102 mg/dL (75-110); POTASSIUM 4.9 mmol/L (3.6-5.0); SODIUM 136.8 mmol/L (137-145)
[2017-08-22] MEDS: ONDANSETRON HCL INJ/PF 4 MG/2 ML SDV IV PRN (08:03)
[2017-08-22] MEDS: DOCUSATE SODIUM 100 MG CAPSULE PO SCH ×2 (09:41→17:27)
[2017-08-22] MEDS: MULTIVITAMIN TABLET PO SCH (09:41)
[2017-08-22] MEDS: DULOXETINE HCL 20 MG CAPSULE.DR PO SCH (09:42)
[2017-08-22] MEDS: HYDROXYUREA 500 MG CAPSULE PO SCH ×2 (09:42→17:27)
[2017-08-22] MEDS: FAMOTIDINE 20 MG TABLET PO SCH ×2 (09:42→21:19)
[2017-08-22] MEDS: FOLIC ACID 1 MG TABLET PO SCH (09:42)
[2017-08-22] MEDS: NORMAL SALINE 1000 ML 1,000 ML IV PRN (10:47)
--- NOTE | 2017-08-22 21:14 | PDOC PROGRESS REPORT ---
Subjective Progress Note for:: 08/22/17 Subjective:: She was transfused over the weekend, she complained of pain, there is no IV Dilaudid in the hospital Reason For Visit: BONE PAIN CRISIS/HEMOLYTIC CRISIS/ Physical Exam Vital Signs: Temp Pulse Resp BP Pulse Ox 98 F 71 15 128/76 H 98 08/22/17 20:00 08/22/17 20:00 08/22/17 20:00 08/22/17 20:00 08/22/17 20:00 Intake & Output 08/21/17 08/22/17 08/23/17 06:59 06:59 06:59 Intake Total 3511 3186 2309 Output Total 3700 2300 3600 Balance -189 886 -1291 Weight 70.7 kg 70.7 kg General appearance: PRESENT: no acute distress Eye exam: PRESENT: PERRLA Respiratory exam: PRESENT: clear to auscultation carolyn Cardiovascular exam: PRESENT: +S1, +S2 GI/Abdominal exam: PRESENT: soft Results Laboratory Results: 08/20/17 12:20 08/22/17 05:30 08/22/17 05:30 Sodium 136.8 L Potassium 4.9 Chloride 101 Carbon Dioxide 27 Anion Gap 9 BUN 13 Creatinine 0.73 Est GFR ( Amer) > 60 Est GFR (Non-Af Amer) > 60 Glucose 102 Calcium 9.1 08/04/17 08/05/17 08/05/17 22:39 04:35 04:35 Troponin I < 0.012 < 0.012 NT-Pro-B Natriuret Pep 265 H 08/05/17 08/06/17 08/07/17 15:45 06:15 06:59 Troponin I < 0.012 NT-Pro-B Natriuret Pep 380 H 302 H Impressions: Chest CT 08/04/17 00:00 IMPRESSION: Small area patchy airspace disease is present in the posterior segment of the right upper lobe. Small areas of subsegmental atelectasis are present in the posterior segments of both lower lobes. No pleural effusion. Chest X-Ray 08/04/17 16:18 IMPRESSION: No acute consolidations or pleural effusions are identified. There is some prominence of the bronchovascular markings. Other findings as noted above Assessment & Plan - Diagnosis (1) Hemolytic crisis Is this a current diagnosis for this admission?: Yes (2) Sickle-cell anemia with crisis Is this a current diagnosis for this admission?: Yes (3) Pneumonia Qualifiers: Pneumonia type: due to unspecified organism Laterality: right Lung location: upper lobe of lung Qualified Code(s): J18.1 - Lobar pneumonia, unspecified organism Is this a current diagnosis for this admission?: Yes
[2017-08-22] MEDS: RIVAROXABAN 10 MG TABLET PO SCH (21:19)
[2017-08-22] MEDS: NORMAL SALINE 1000 ML 1,000 ML with POTASSIUM CHLORIDE 20 MEQ, MAGNESIUM SULFATE 8 MEQ,... IV SCH ×5 (21:20)
[2017-08-22] MEDS: HYDROMORPHONE HCL 2 MG TABLET PO PRN (22:30)
[2017-08-23] MEDS: OXYCODONE HCL IR 5 MG TABLET PO PRN (00:05)
[2017-08-23] MEDS: ONDANSETRON HCL INJ/PF 4 MG/2 ML SDV IV PRN ×4 (01:41→18:11)
[2017-08-23] MEDS: HYDROMORPHONE HCL 2 MG TABLET PO PRN ×7 (01:41→23:47)
[2017-08-23] MEDS: DIPHENHYDRAMINE HCL 50 MG/ML VIAL IV PRN ×4 (03:19→21:29)
[2017-08-23] MEDS: GABAPENTIN 300 MG CAPSULE PO SCH ×3 (05:42→21:29)
[2017-08-23] MEDS: OXYCODONE HCL SR 40 MG TABLET PO SCH ×3 (05:44→21:29)
[2017-08-23 06:36] LABS: ANION GAP 8 (5-19); BLOOD UREA NITROGEN 13 mg/dL (7-20); CALCIUM 8.9 mg/dL (8.4-10.2); CARBON DIOXIDE 28 mmol/L (22-30); CHLORIDE 104 mmol/L (98-107); GLUCOSE 103 mg/dL (75-110); SODIUM 139.8 mmol/L (137-145)
[2017-08-23] MEDS: NORMAL SALINE 1000 ML 1,000 ML IV PRN ×2 (08:01→18:10)
[2017-08-23] MEDS: FAMOTIDINE 20 MG TABLET PO SCH ×2 (09:52→21:29)
[2017-08-23] MEDS: HYDROXYUREA 500 MG CAPSULE PO SCH ×2 (09:52→17:02)
[2017-08-23] MEDS: DOCUSATE SODIUM 100 MG CAPSULE PO SCH ×2 (09:52→17:02)
[2017-08-23] MEDS: FOLIC ACID 1 MG TABLET PO SCH (09:52)
[2017-08-23] MEDS: MULTIVITAMIN TABLET PO SCH (09:52)
[2017-08-23] MEDS: DULOXETINE HCL 20 MG CAPSULE.DR PO SCH (09:53)
--- NOTE | 2017-08-23 20:43 | PDOC PROGRESS REPORT ---
Subjective Progress Note for:: 08/30/17 Subjective:: She was transfused over the weekend, she complained of pain, there is no IV Dilaudid in the hospital, she is on p.o. Dilaudid Reason For Visit: BONE PAIN CRISIS/HEMOLYTIC CRISIS/ Physical Exam Vital Signs: Temp Pulse Resp BP Pulse Ox 98.9 F 73 16 96/62 L 97 08/23/17 15:31 08/23/17 15:31 08/23/17 15:31 08/23/17 15:31 08/23/17 15:31 Intake & Output 08/22/17 08/23/17 08/24/17 06:59 06:59 06:59 Intake Total 3186 5368 1816 Output Total 2300 6200 3400 Balance 886 832 -1584 Weight 70.7 kg 70.5 kg General appearance: PRESENT: no acute distress Eye exam: PRESENT: PERRLA Respiratory exam: PRESENT: clear to auscultation carolyn Cardiovascular exam: PRESENT: +S1, +S2 GI/Abdominal exam: PRESENT: soft Neurological exam: PRESENT: alert Results Laboratory Results: 08/20/17 12:20 08/23/17 05:40 08/23/17 05:40 Sodium 139.8 Potassium 5.0 Chloride 104 Carbon Dioxide 28 Anion Gap 8 BUN 13 Creatinine 0.65 Est GFR ( Amer) > 60 Est GFR (Non-Af Amer) > 60 Glucose 103 Calcium 8.9 08/04/17 08/05/17 08/05/17 22:39 04:35 04:35 Troponin I < 0.012 < 0.012 NT-Pro-B Natriuret Pep 265 H 08/05/17 08/06/17 08/07/17 15:45 06:15 06:59 Troponin I < 0.012 NT-Pro-B Natriuret Pep 380 H 302 H Impressions: Chest CT 08/04/17 00:00 IMPRESSION: Small area patchy airspace disease is present in the posterior segment of the right upper lobe. Small areas of subsegmental atelectasis are present in the posterior segments of both lower lobes. No pleural effusion. Chest X-Ray 08/04/17 16:18 IMPRESSION: No acute consolidations or pleural effusions are identified. There is some prominence of the bronchovascular markings. Other findings as noted above Assessment & Plan - Diagnosis (1) Hemolytic crisis Is this a current diagnosis for this admission?: Yes (2) Sickle-cell anemia with crisis Is this a current diagnosis for this admission?: Yes (3) Pneumonia Qualifiers: Pneumonia type: due to unspecified organism Laterality: right Lung location: upper lobe of lung Qualified Code(s): J18.1 - Lobar pneumonia, unspecified organism Is this a current diagnosis for this admission?: Yes - Plan Summary Plan Summary: Continue treatment
[2017-08-23] MEDS: RIVAROXABAN 10 MG TABLET PO SCH (21:29)
[2017-08-23] MEDS: NORMAL SALINE 1000 ML 1,000 ML with POTASSIUM CHLORIDE 20 MEQ, MAGNESIUM SULFATE 8 MEQ,... IV SCH ×5 (21:35)
[2017-08-24] MEDS: HYDROMORPHONE HCL 2 MG TABLET PO PRN ×6 (03:24→22:13)
[2017-08-24] MEDS: DIPHENHYDRAMINE HCL 50 MG/ML VIAL IV PRN ×4 (03:24→22:13)
[2017-08-24] MEDS: OXYCODONE HCL SR 40 MG TABLET PO SCH ×3 (06:02→22:12)
[2017-08-24] MEDS: GABAPENTIN 300 MG CAPSULE PO SCH ×3 (06:02→22:12)
[2017-08-24] MEDS: DOCUSATE SODIUM 100 MG CAPSULE PO SCH ×2 (09:23→17:25)
[2017-08-24] MEDS: MULTIVITAMIN TABLET PO SCH (09:24)
[2017-08-24] MEDS: DULOXETINE HCL 20 MG CAPSULE.DR PO SCH (09:24)
[2017-08-24] MEDS: FAMOTIDINE 20 MG TABLET PO SCH ×2 (09:24→22:12)
[2017-08-24] MEDS: HYDROXYUREA 500 MG CAPSULE PO SCH ×2 (09:24→17:22)
[2017-08-24] MEDS: FOLIC ACID 1 MG TABLET PO SCH (09:24)
[2017-08-24] MEDS: ONDANSETRON HCL INJ/PF 4 MG/2 ML SDV IV PRN ×2 (12:00→18:48)
--- NOTE | 2017-08-24 15:23 | PDOC PROGRESS REPORT ---
Subjective Progress Note for:: 08/24/17 Subjective:: She was seen by the bedside, she is improving not getting out of bed yet Reason For Visit: BONE PAIN CRISIS/HEMOLYTIC CRISIS/ Physical Exam Vital Signs: Temp Pulse Resp BP Pulse Ox 99.0 F 73 15 102/54 L 94 08/24/17 12:20 08/24/17 12:20 08/24/17 12:20 08/24/17 12:20 08/24/17 12:20 Intake & Output 08/23/17 08/24/17 08/25/17 06:59 06:59 06:59 Intake Total 5353 3108 Output Total 6200 0715 Balance -492 -0304 Weight 70.5 kg 67.6 kg General appearance: PRESENT: no acute distress Eye exam: PRESENT: PERRLA Respiratory exam: PRESENT: clear to auscultation carolyn Cardiovascular exam: PRESENT: +S1, +S2 GI/Abdominal exam: PRESENT: soft Neurological exam: PRESENT: alert Results Laboratory Results: 08/20/17 12:20 08/23/17 05:40 08/04/17 08/05/17 08/05/17 22:39 04:35 04:35 Troponin I < 0.012 < 0.012 NT-Pro-B Natriuret Pep 265 H 08/05/17 08/06/17 08/07/17 15:45 06:15 06:59 Troponin I < 0.012 NT-Pro-B Natriuret Pep 380 H 302 H Impressions: Chest CT 08/04/17 00:00 IMPRESSION: Small area patchy airspace disease is present in the posterior segment of the right upper lobe. Small areas of subsegmental atelectasis are present in the posterior segments of both lower lobes. No pleural effusion. Chest X-Ray 08/04/17 16:18 IMPRESSION: No acute consolidations or pleural effusions are identified. There is some prominence of the bronchovascular markings. Other findings as noted above Assessment & Plan - Diagnosis (1) Hemolytic crisis Is this a current diagnosis for this admission?: Yes (2) Sickle-cell anemia with crisis Is this a current diagnosis for this admission?: Yes (3) Pneumonia Qualifiers: Pneumonia type: due to unspecified organism Laterality: right Lung location: upper lobe of lung Qualified Code(s): J18.1 - Lobar pneumonia, unspecified organism Is this a current diagnosis for this admission?: Yes
[2017-08-24] MEDS: NORMAL SALINE 1000 ML 1,000 ML IV PRN (18:48)
[2017-08-24] MEDS: RIVAROXABAN 10 MG TABLET PO SCH (22:12)
[2017-08-24] MEDS: NORMAL SALINE 1000 ML 1,000 ML with POTASSIUM CHLORIDE 20 MEQ, MAGNESIUM SULFATE 8 MEQ,... IV SCH ×5 (22:13)
[2017-08-25] MEDS: ONDANSETRON HCL INJ/PF 4 MG/2 ML SDV IV PRN ×3 (01:39→19:34)
[2017-08-25] MEDS: HYDROMORPHONE HCL 2 MG TABLET PO PRN ×6 (01:39→22:37)
[2017-08-25] MEDS: DIPHENHYDRAMINE HCL 50 MG/ML VIAL IV PRN ×4 (04:12→22:37)
[2017-08-25] MEDS: GABAPENTIN 300 MG CAPSULE PO SCH ×3 (05:39→21:28)
[2017-08-25] MEDS: OXYCODONE HCL SR 40 MG TABLET PO SCH ×3 (05:39→21:28)
[2017-08-25] MEDS: HYDROXYUREA 500 MG CAPSULE PO SCH ×2 (10:10→17:38)
[2017-08-25] MEDS: MULTIVITAMIN TABLET PO SCH (10:10)
[2017-08-25] MEDS: FOLIC ACID 1 MG TABLET PO SCH (10:10)
[2017-08-25] MEDS: DOCUSATE SODIUM 100 MG CAPSULE PO SCH ×2 (10:10→17:38)
[2017-08-25] MEDS: DULOXETINE HCL 20 MG CAPSULE.DR PO SCH (10:10)
[2017-08-25] MEDS: FAMOTIDINE 20 MG TABLET PO SCH ×2 (10:10→21:28)
--- NOTE | 2017-08-25 21:02 | PDOC PROGRESS REPORT ---
Subjective Progress Note for:: 08/25/17 Subjective:: Patient is seen by the bedside, she will hopefully be discharged home tomorrow Reason For Visit: BONE PAIN CRISIS/HEMOLYTIC CRISIS/ Physical Exam Vital Signs: Temp Pulse Resp BP Pulse Ox 98.2 F 82 19 95/60 L 95 08/25/17 19:52 08/25/17 19:52 08/25/17 19:52 08/25/17 19:52 08/25/17 19:52 Intake & Output 08/24/17 08/25/17 08/26/17 06:59 06:59 06:59 Intake Total 3108 1910 1924 Output Total 5850 1050 2500 Balance -2742 860 -576 Weight 67.6 kg 67.9 kg General appearance: PRESENT: no acute distress Eye exam: PRESENT: PERRLA Respiratory exam: PRESENT: clear to auscultation carolyn Cardiovascular exam: PRESENT: +S1, +S2 GI/Abdominal exam: PRESENT: soft Neurological exam: PRESENT: alert Results Laboratory Results: 08/20/17 12:20 08/23/17 05:40 08/04/17 08/05/17 08/05/17 22:39 04:35 04:35 Troponin I < 0.012 < 0.012 NT-Pro-B Natriuret Pep 265 H 08/05/17 08/06/17 08/07/17 15:45 06:15 06:59 Troponin I < 0.012 NT-Pro-B Natriuret Pep 380 H 302 H Impressions: Chest CT 08/04/17 00:00 IMPRESSION: Small area patchy airspace disease is present in the posterior segment of the right upper lobe. Small areas of subsegmental atelectasis are present in the posterior segments of both lower lobes. No pleural effusion. Chest X-Ray 08/04/17 16:18 IMPRESSION: No acute consolidations or pleural effusions are identified. There is some prominence of the bronchovascular markings. Other findings as noted above Assessment & Plan - Diagnosis (1) Hemolytic crisis Is this a current diagnosis for this admission?: Yes (2) Sickle-cell anemia with crisis Is this a current diagnosis for this admission?: Yes (3) Pneumonia Qualifiers: Pneumonia type: due to unspecified organism Laterality: right Lung location: upper lobe of lung Qualified Code(s): J18.1 - Lobar pneumonia, unspecified organism Is this a current diagnosis for this admission?: Yes
[2017-08-25] MEDS: RIVAROXABAN 10 MG TABLET PO SCH (21:28)
[2017-08-25] MEDS: NORMAL SALINE 1000 ML 1,000 ML with POTASSIUM CHLORIDE 20 MEQ, MAGNESIUM SULFATE 8 MEQ,... IV SCH ×5 (21:28)
[2017-08-26 00:43] LABS: HEMOGLOBIN 8.4 g/dL (12.0-15.5); MEAN CORPUSCULAR HEMOGLOBIN 35.7 pg (27.0-33.4); MEAN CORPUSCULAR HGB CONC 33.4 g/dL (32.0-36.0); MEAN CORPUSCULAR VOLUME 107 fl (80-97); PLATELET COUNT 167 10^3/uL (150-450); RED BLOOD COUNT 2.34 10^6/uL (3.72-5.28); RED CELL DISTRIBUTION WIDTH 27.6 % (11.5-14.0); WHITE BLOOD COUNT 4.8 10^3/uL (4.0-10.5)
[2017-08-26 01:07] LABS: ALANINE AMINOTRANSFERASE 84 U/L (9-52); ALBUMIN 3.9 g/dL (3.5-5.0); ALKALINE PHOSPHATASE 148 U/L (38-126); ANION GAP 9 (5-19); ASPARTATE AMINO TRANSFERASE 112 U/L (14-36); BILIRUBIN,TOTAL 3.8 mg/dL (0.2-1.3); BLOOD UREA NITROGEN 14 mg/dL (7-20); CARBON DIOXIDE 26 mmol/L (22-30); CHLORIDE 107 mmol/L (98-107); GLUCOSE 134 mg/dL (75-110); POTASSIUM 4.4 mmol/L (3.6-5.0); SODIUM 141.5 mmol/L (137-145); TOTAL PROTEIN 6.7 g/dL (6.3-8.2)
[2017-08-26 01:08] LABS: ABSOLUTE LYMPHOCYTES# (MANUAL) 2.4 10^3/uL (0.5-4.7); ABSOLUTE MONOCYTES # (MANUAL) 0.2 10^3/uL (0.1-1.4); BAND NEUTROPHILS % (MANUAL) 1 % (3-5); BASOPHILS % (MANUAL) 0 % (0-2); EOSINOPHILS % (MANUAL) 5 % (0-6); LYMPHOCYTES % (MANUAL) 50 % (13-45); MONOCYTES % (MANUAL) 4 % (3-13); NUCLEATED RED BLOOD CELLS 4 /100 WBC (0); SEGMENTED NEUTROPHILS % (MAN) 40 % (42-78); TOTAL CELLS COUNTED 100
[2017-08-26 01:10] LABS: ANISOCYTOSIS 4+; OVALOCYTES SLIGHT; PLATELET COMMENT ADEQUATE; POIKILOCYTOSIS 1+; POLYCHROMASIA SLIGHT; TARGET CELLS 1+
[2017-08-26] MEDS: HYDROMORPHONE HCL 2 MG TABLET PO PRN ×7 (01:39→21:08)
[2017-08-26] MEDS: ONDANSETRON HCL INJ/PF 4 MG/2 ML SDV IV PRN ×5 (01:39→21:08)
[2017-08-26] MEDS: DIPHENHYDRAMINE HCL 50 MG/ML VIAL IV PRN ×4 (04:31→22:39)
[2017-08-26] MEDS: OXYCODONE HCL SR 40 MG TABLET PO SCH ×3 (05:40→21:08)
[2017-08-26] MEDS: GABAPENTIN 300 MG CAPSULE PO SCH ×3 (05:40→21:08)
[2017-08-26] MEDS: DOCUSATE SODIUM 100 MG CAPSULE PO SCH ×2 (10:21→17:03)
[2017-08-26] MEDS: MULTIVITAMIN TABLET PO SCH (10:21)
[2017-08-26] MEDS: FAMOTIDINE 20 MG TABLET PO SCH ×2 (10:22→21:08)
[2017-08-26] MEDS: EPOETIN ALFA INJ 40000 UNIT/1 ML (ONCOLOGY) SUBCUT SCH (10:22)
[2017-08-26] MEDS: DULOXETINE HCL 20 MG CAPSULE.DR PO SCH (10:22)
[2017-08-26] MEDS: HYDROXYUREA 500 MG CAPSULE PO SCH ×2 (10:22→17:04)
[2017-08-26] MEDS: FOLIC ACID 1 MG TABLET PO SCH (10:22)
[2017-08-26] MEDS: OXYCODONE HCL IR 5 MG TABLET PO PRN ×2 (12:48→18:50)
[2017-08-26] MEDS: NORMAL SALINE 1000 ML 1,000 ML IV PRN (18:46)
--- NOTE | 2017-08-26 20:27 | PDOC DISCHARGE SUMMARY ---
General - Admit/Disc Date/PCP Admission Date/Primary Care Provider: 08/04/17 21:33 HOMA BARRAZA MD Discharge Date: 08/26/17 - Discharge Diagnosis (1) Hemolytic crisis Is this a current diagnosis for this admission?: Yes (2) Sickle-cell anemia with crisis Is this a current diagnosis for this admission?: Yes (3) Pneumonia Is this a current diagnosis for this admission?: Yes - Additional Information Resuscitation Status: Full Code Home Medications: Duloxetine HCl [Cymbalta 20 mg Capsule.dr] 20 mg PO DAILY 08/04/17 Epoetin Federico [Procrit Inj 40,000 Unit/1 ml Vial (Oncology)] 40,000 unit SUBCUT FR@1000 08/04/17 Epoetin Federico [Procrit] 20,000 unit SUBCUT FR@1000 08/04/17 Folic Acid [Folvite 1 mg Tablet] 1 mg PO DAILY 08/04/17 Gabapentin [Neurontin 300 mg Capsule] 300 mg PO Q8 08/04/17 Hydroxyurea [Hydrea 500 mg Capsule] 500 mg PO BID 08/04/17 Ibuprofen [Motrin 800 mg Tablet] 800 mg PO Q8 08/04/17 Multivitamin [Tab-A-Yosvany] 1 tab PO DAILY 08/04/17 Oxycodone HCl 30 mg PO Q6HP PRN 08/04/17 Oxycodone HCl [Oxycontin Sr 40 mg Tablet] 40 mg PO Q8 08/04/17 Rivaroxaban [Xarelto] 20 mg PO QHS 08/04/17 History of Present Illness History of Present Illness: WILLIE ALAN is a 47 year old femaleShe has a history of sickle cell disease, she is well-known to this hospital, she presented to the emergency room with severe bone pains associated with severe anemia, hemoglobin was 5 on presentation. A CAT scan of the chest was ordered, it showed small patchy areas of airspace disease.In the right upper lobe. This is patient first hospital admission this year, the last time she was admitted for similar presentation was in February 2017. She follows regularly with planner chief for her sickle cell disease ,she is on chronic anticoagulation with Xarelto Hospital Course Hospital Course: She was admitted for the management of sickle cell disease bone pain crisis with hemolytic crises and pneumonia. She was treated with IV fluids, antibiotic , bone pain was controlled with intravenous Dilaudid.She required transfusion with red blood cells Patient hospital course was prolonged because of bone pain crisis requiring pain medications, IV multivitamin Physical Exam Vital Signs: Temp Pulse Resp BP Pulse Ox 98.6 F 72 16 102/55 L 97 08/26/17 16:12 08/26/17 16:12 08/26/17 16:12 08/26/17 16:12 08/26/17 16:12 Intake & Output 08/25/17 08/26/17 08/27/17 06:59 06:59 06:59 Intake Total 1910 3258 1341 Output Total 1050 4000 1900 Balance 860 -052 -131 Weight 67.9 kg 65.7 kg General appearance: PRESENT: no acute distress Head exam: PRESENT: atraumatic Eye exam: PRESENT: PERRLA Ear exam: PRESENT: normal external ear exam Mouth exam: PRESENT: moist, tongue midline Neck exam: PRESENT: full ROM Respiratory exam: PRESENT: clear to auscultation carolyn Cardiovascular exam: PRESENT: RRR, +S1, +S2 Pulses: PRESENT: normal dorsalis pedis pul, +2 pedal pulses bilateral Vascular exam: PRESENT: normal capillary refill GI/Abdominal exam: PRESENT: normal bowel sounds, soft Rectal exam: PRESENT: deferred Neurological exam: PRESENT: alert, CN II-XII grossly intact Psychiatric exam: PRESENT: appropriate affect, normal mood Skin exam: PRESENT: dry, intact, warm Results Laboratory Results: 08/26/17 00:16 08/26/17 00:16 08/26/17 08/26/17 00:16 00:16 WBC 4.8 RBC 2.34 L Hgb 8.4 L Hct 25.0 L MCV 107 H MCH 35.7 H MCHC 33.4 RDW 27.6 H Plt Count 167 Seg Neutrophils % Not Reportable Lymphocytes % Not Reportable Monocytes % Not Reportable Eosinophils % Not Reportable Basophils % Not Reportable Absolute Neutrophils Not Reportable Absolute Lymphocytes Not Reportable Absolute Monocytes Not Reportable Absolute Eosinophils Not Reportable Absolute Basophils Not Reportable Sodium 141.5 Potassium 4.4 Chloride 107 Carbon Dioxide 26 Anion Gap 9 BUN 14 Creatinine 0.80 Est GFR ( Amer) > 60 Est GFR (Non-Af Amer) > 60 Glucose 134 H Calcium 9.0 Total Bilirubin 3.8 H AST 112 H ALT 84 H Alkaline Phosphatase 148 H Total Protein 6.7 Albumin 3.9 08/04/17 08/05/17 08/05/17 22:39 04:35 04:35 Troponin I < 0.012 < 0.012 NT-Pro-B Natriuret Pep 265 H 08/05/17 08/06/17 08/07/17 15:45 06:15 06:59 Troponin I < 0.012 NT-Pro-B Natriuret Pep 380 H 302 H Impressions: Chest CT 08/04/17 00:00 IMPRESSION: Small area patchy airspace disease is present in the posterior segment of the right upper lobe. Small areas of subsegmental atelectasis are present in the posterior segments of both lower lobes. No pleural effusion. Chest X-Ray 08/04/17 16:18 IMPRESSION: No acute consolidations or pleural effusions are identified. There is some prominence of the bronchovascular markings. Other findings as noted above Qualifiers - * PATEINT BEING DISCHARGED WITH ANY OF THE FOLLOWING DIAGNOSIS?: No
--- NOTE | 2017-08-26 20:34 | PDOC PROGRESS REPORT ---
Subjective Progress Note for:: 08/26/17 Reason For Visit: BONE PAIN CRISIS/HEMOLYTIC CRISIS/ Physical Exam Vital Signs: Temp Pulse Resp BP Pulse Ox 98.6 F 72 16 102/55 L 97 08/26/17 16:12 08/26/17 16:12 08/26/17 16:12 08/26/17 16:12 08/26/17 16:12 Intake & Output 08/25/17 08/26/17 08/27/17 06:59 06:59 06:59 Intake Total 1910 3258 1341 Output Total 1050 4000 1900 Balance 670 -821 -424 Weight 67.9 kg 65.7 kg Results Laboratory Results: 08/26/17 00:16 08/26/17 00:16 08/26/17 08/26/17 00:16 00:16 WBC 4.8 RBC 2.34 L Hgb 8.4 L Hct 25.0 L MCV 107 H MCH 35.7 H MCHC 33.4 RDW 27.6 H Plt Count 167 Seg Neutrophils % Not Reportable Lymphocytes % Not Reportable Monocytes % Not Reportable Eosinophils % Not Reportable Basophils % Not Reportable Absolute Neutrophils Not Reportable Absolute Lymphocytes Not Reportable Absolute Monocytes Not Reportable Absolute Eosinophils Not Reportable Absolute Basophils Not Reportable Sodium 141.5 Potassium 4.4 Chloride 107 Carbon Dioxide 26 Anion Gap 9 BUN 14 Creatinine 0.80 Est GFR ( Amer) > 60 Est GFR (Non-Af Amer) > 60 Glucose 134 H Calcium 9.0 Total Bilirubin 3.8 H AST 112 H ALT 84 H Alkaline Phosphatase 148 H Total Protein 6.7 Albumin 3.9 08/04/17 08/05/17 08/05/17 22:39 04:35 04:35 Troponin I < 0.012 < 0.012 NT-Pro-B Natriuret Pep 265 H 08/05/17 08/06/17 08/07/17 15:45 06:15 06:59 Troponin I < 0.012 NT-Pro-B Natriuret Pep 380 H 302 H Impressions: Chest CT 08/04/17 00:00 IMPRESSION: Small area patchy airspace disease is present in the posterior segment of the right upper lobe. Small areas of subsegmental atelectasis are present in the posterior segments of both lower lobes. No pleural effusion. Chest X-Ray 08/04/17 16:18 IMPRESSION: No acute consolidations or pleural effusions are identified. There is some prominence of the bronchovascular markings. Other findings as noted above Assessment & Plan - Diagnosis (1) Hemolytic crisis Is this a current diagnosis for this admission?: Yes (2) Sickle-cell anemia with crisis Is this a current diagnosis for this admission?: Yes (3) Pneumonia Qualifiers: Pneumonia type: due to unspecified organism Laterality: right Lung location: upper lobe of lung Qualified Code(s): J18.1 - Lobar pneumonia, unspecified organism Is this a current diagnosis for this admission?: Yes
[2017-08-26] MEDS: RIVAROXABAN 10 MG TABLET PO SCH (21:08)
[2017-08-26] MEDS: NORMAL SALINE 1000 ML 1,000 ML with POTASSIUM CHLORIDE 20 MEQ, MAGNESIUM SULFATE 8 MEQ,... IV SCH ×5 (22:39)
[2017-08-27] MEDS: HYDROMORPHONE HCL 2 MG TABLET PO PRN ×6 (00:21→16:14)
[2017-08-27] MEDS: ONDANSETRON HCL INJ/PF 4 MG/2 ML SDV IV PRN ×4 (00:46→17:05)
[2017-08-27] MEDS: OXYCODONE HCL IR 5 MG TABLET PO PRN (01:21)
[2017-08-27] MEDS: DIPHENHYDRAMINE HCL 50 MG/ML VIAL IV PRN ×3 (04:23→16:14)
[2017-08-27] MEDS: GABAPENTIN 300 MG CAPSULE PO SCH ×2 (07:02→13:05)
[2017-08-27] MEDS: DULOXETINE HCL 20 MG CAPSULE.DR PO SCH (10:05)
[2017-08-27] MEDS: FOLIC ACID 1 MG TABLET PO SCH (10:05)
[2017-08-27] MEDS: MULTIVITAMIN TABLET PO SCH (10:05)
[2017-08-27] MEDS: FAMOTIDINE 20 MG TABLET PO SCH (10:05)
[2017-08-27] MEDS: HYDROXYUREA 500 MG CAPSULE PO SCH ×2 (10:06→17:05)
[2017-08-27] MEDS: DOCUSATE SODIUM 100 MG CAPSULE PO SCH ×2 (10:07→17:03)
[2017-08-27 16:35] VITALS: BP 101/81
== END 2017-08-27 18:19 | disposition home or self-care (01) | DRG 811 ==
LOC: ER 13:34 → EH 21:33 → 4S 23:00
PROVIDERS: ADMIT Internal Medicine; ATTEND Internal Medicine
PROC: 30233N1 Transfusion of Nonautologous Red Blood Cells into Peripheral Vein, Percutaneous Approach (ICD-10-PCS; principal; 2017-08-04)
PROC: 30233N1 Transfusion of Nonautologous Red Blood Cells into Peripheral Vein, Percutaneous Approach (ICD-10-PCS; 2017-08-18)
DX: D57.00 Hb-SS disease with crisis, unspecified (principal); J18.1 Lobar pneumonia, unspecified organism; R01.1 Cardiac murmur, unspecified; Z79.899 Other long term (current) drug therapy; Z79.01 Long term (current) use of anticoagulants; Z86.14 Personal history of Methicillin resistant Staphylococcus aureus infection; Z90.49 Acquired absence of other specified parts of digestive tract; Z88.3 Allergy status to other anti-infective agents; Z79.891 Long term (current) use of opiate analgesic; Z86.711 Personal history of pulmonary embolism
CPT/HCPCS: 36415; 36430; 36591; 71046; 71250; 80048; 80053; 80061; 80076; 80307; 81001; 82140; 82150; 82607; 82728; 82746; 83010; 83540; 83550; 83690; 83735; 83880; 84100; 84439; 84443; 84466; 84484; 85025; 85045; 85610; 86850; 86900; 86901; 86902; 86920; 87040; 87086; 93005; 93010; 96361; 96374; 96375; 96376; 99285; J0692; J0885; J1170; J1200; J1956; J2405; J3411; J3475; J3480; J3490; J7030; P9016; Q4081

== ENCOUNTER 2017-09-08 17:04 | Inpatient (IN) | payer MEDICAID ==
[2017-09-08 19:25] LABS: ABSOLUTE BASOPHILS # (AUTO) 0.1 10^3/uL (0.0-0.2); ABSOLUTE EOSINOPHILS # (AUTO) 0.1 10^3/uL (0.0-0.6); ABSOLUTE LYMPHOCYTES (AUTO) 2.8 10^3/uL (0.5-4.7); ABSOLUTE MONOCYTES (AUTO) 0.5 10^3/uL (0.1-1.4); ABSOLUTE NEUT (AUTO) 2.7 10^3/uL (1.7-8.2); BASOPHILS % (AUTO) 1.9 % (0-2); HEMATOCRIT 18.8 % (36.0-47.0); LYMPHOCYTES % (AUTO) 44.3 % (13-45); MEAN CORPUSCULAR HEMOGLOBIN 35.6 pg (27.0-33.4); MEAN CORPUSCULAR VOLUME 105 fl (80-97); MONOCYTES % (AUTO) 8.7 % (3-13); PLATELET COUNT 213 10^3/uL (150-450); RED BLOOD COUNT 1.79 10^6/uL (3.72-5.28); RED CELL DISTRIBUTION WIDTH 25.9 % (11.5-14.0); SEGMENTED NEUTROPHILS % (AUTO) 43.1 % (42-78); TOTAL CELLS COUNTED % (AUTO) 100 %; WHITE BLOOD COUNT 6.3 10^3/uL (4.0-10.5)
[2017-09-08] MEDS ORDERED: AMPICILLIN SODIUM/SULBACTAM NA 3 GM in NORMAL SALINE 100 ML IV ONE (19:30)
[2017-09-08 19:35] LABS: ANION GAP 5 (5-19); BLOOD UREA NITROGEN 8 mg/dL (7-20); CALCIUM 9.3 mg/dL (8.4-10.2); CARBON DIOXIDE 26 mmol/L (22-30); CHLORIDE 106 mmol/L (98-107); GLUCOSE 87 mg/dL (75-110); POTASSIUM 3.7 mmol/L (3.6-5.0); SODIUM 137.1 mmol/L (137-145)
[2017-09-08 19:43] LABS: ALANINE AMINOTRANSFERASE 44 U/L (9-52); ALBUMIN 4.1 g/dL (3.5-5.0); ALKALINE PHOSPHATASE 110 U/L (38-126); ASPARTATE AMINO TRANSFERASE 38 U/L (14-36); BILIRUBIN,DIRECT 0.9 mg/dL (0.0-0.4); TOTAL PROTEIN 6.9 g/dL (6.3-8.2)
[2017-09-08] MEDS ORDERED: (PENDING PHARMACY ID) (Oxycodone Hcl [Oxycodone Hcl] 30 MG) PO PRN (20:01)
[2017-09-08 20:10] LABS: ANISOCYTOSIS 3+; PLATELET COMMENT ADEQUATE
[2017-09-08 20:11] LABS: OVALOCYTES SLIGHT; POIKILOCYTOSIS SLIGHT; TARGET CELLS SLIGHT
[2017-09-08 20:14] LABS: HEMOGLOBIN 6.4 g/dL (12.0-15.5)
[2017-09-08] MEDS: NORMAL SALINE 1000 ML 1,000 ML IV PRN (20:19)
--- NOTE | 2017-09-08 20:46 | PDOC H&P ---
History of Present Illness Admission Date/PCP: 09/08/17 17:04 HOMA BARRAZA MD History of Present Illness: WILLIE ALAN is a 47 year old female, She has a history of sickle cell disease, she was in the office on Tuesday for evaluation of left foot pain, she was diagnosed with cellulitis and she was prescribed clindamycin. 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 Denies: HIV Past Surgical History Past Surgical History: Reports: Appendectomy, Section, Cholecystectomy , Orthopedic Surgery - R knee, Tonsillectomy Social History Smoking Status: Never Smoker Frequency of Alcohol Use: None Hx Recreational Drug Use: No Drugs: None Hx Prescription Drug Abuse: No Family History Family History: Reviewed & Not Pertinent Parental Family History Reviewed: Yes Children Family History Reviewed: Yes Sibling(s) Family History Reviewed.: Yes Medication/Allergy Home Medications: Epoetin Federico [Procrit Inj 40,000 Unit/1 ml Vial (Oncology)] 40,000 unit SUBCUT FR@1000 08/04/17 Epoetin Federico [Procrit] 20,000 unit SUBCUT FR@1000 08/04/17 Folic Acid [Folvite 1 mg Tablet] 1 mg PO DAILY 08/04/17 Gabapentin [Neurontin 300 mg Capsule] 300 mg PO Q8 08/04/17 Hydroxyurea [Hydrea 500 mg Capsule] 500 mg PO BID 08/04/17 Ibuprofen [Motrin 800 mg Tablet] 800 mg PO Q8 08/04/17 Multivitamin [Tab-A-Yosvany] 1 tab PO DAILY 08/04/17 Oxycodone HCl 30 mg PO Q6HP PRN 08/04/17 Oxycodone HCl [Oxycontin Sr 40 mg Tablet] 40 mg PO Q8 08/04/17 Rivaroxaban [Xarelto] 20 mg PO QHS 08/04/17 Allergies/Adverse Reactions: doxycycline [Doxycycline] Allergy (Severe, Verified 03/02/17 20:20) Review of Systems Constitutional: ABSENT: chills, fever(s), headache(s), weight gain, weight loss Eyes: ABSENT: visual disturbances Ears: ABSENT: hearing changes Cardiovascular: ABSENT: chest pain, dyspnea on exertion, edema, orthropnea, palpitations Respiratory: ABSENT: cough, hemoptysis Gastrointestinal: ABSENT: abdominal pain, constipation, diarrhea, hematemesis, hematochezia, nausea, vomiting Genitourinary: ABSENT: dysuria, hematuria Musculoskeletal: PRESENT: joint swelling Integumentary: ABSENT: rash, wounds Neurological: ABSENT: abnormal gait, abnormal speech, confusion, dizziness, focal weakness, syncope Psychiatric: ABSENT: anxiety, depression, homidical ideation, suicidal ideation Endocrine: ABSENT: cold intolerance, heat intolerance, menstrual abnormalities, polydipsia, polyuria Hematologic/Lymphatic: ABSENT: easy bleeding, easy bruising, lymphadenopathy Physical Exam Vital Signs: Temp Pulse Resp BP Pulse Ox 99.0 F 76 20 96/45 L 98 09/08/17 18:08 09/08/17 18:08 09/08/17 18:08 09/08/17 18:08 09/08/17 18:08 Intake & Output 09/07/17 09/08/17 09/09/17 06:59 06:59 06:59 Weight 62.5 kg General appearance: PRESENT: no acute distress, well-developed, well-nourished Head exam: PRESENT: atraumatic, normocephalic Eye exam: PRESENT: conjunctiva pink, EOMI, PERRLA Ear exam: PRESENT: normal external ear exam Mouth exam: PRESENT: moist, tongue midline Neck exam: PRESENT: full ROM Respiratory exam: PRESENT: clear to auscultation carolyn Cardiovascular exam: PRESENT: +S1, +S2 Pulses: PRESENT: normal dorsalis pedis pul, +2 pedal pulses bilateral Vascular exam: PRESENT: normal capillary refill GI/Abdominal exam: PRESENT: soft Rectal exam: PRESENT: deferred Musculoskeletal exam: PRESENT: tenderness, other - Redness tenderness of left foot Neurological exam: PRESENT: alert Psychiatric exam: PRESENT: appropriate affect, normal mood. ABSENT: homicidal ideation, suicidal ideation Skin exam: PRESENT: dry, intact, warm Results Laboratory Results: 09/08/17 18:55 09/08/17 18:55 09/08/17 09/08/17 09/08/17 18:55 18:55 18:55 WBC 6.3 RBC 1.79 L Hgb 6.4 L Hct 18.8 L MCV 105 H MCH 35.6 H MCHC 34.0 RDW 25.9 H Plt Count 213 Seg Neutrophils % 43.1 Lymphocytes % 44.3 Monocytes % 8.7 Eosinophils % 2.0 Basophils % 1.9 Absolute Neutrophils 2.7 Absolute Lymphocytes 2.8 Absolute Monocytes 0.5 Absolute Eosinophils 0.1 Absolute Basophils 0.1 Sodium 137.1 Potassium 3.7 Chloride 106 Carbon Dioxide 26 Anion Gap 5 BUN 8 Creatinine 0.61 Est GFR ( Amer) > 60 Est GFR (Non-Af Amer) > 60 Glucose 87 Calcium 9.3 Total Bilirubin 3.0 H AST 38 H ALT 44 Alkaline Phosphatase 110 Total Protein 6.9 Albumin 4.1 Assessment & Plan - Diagnosis (1) Cellulitis of left foot Is this a current diagnosis for this admission?: Yes Plan: She is admitted inpatient to be treated with IV antibiotic because she failed outpatient treatment MRI ordered to rule out osteomyelitis (2) Sickle cell anemia Qualifiers: Sickle-cell associated disorders: with unspecified crisis Qualified Code(s) : D57.00 - Hb-SS disease with crisis, unspecified; D57.0 - Hb-SS disease with crisis Is this a current diagnosis for this admission?: Yes (3) Failure of outpatient treatment Is this a current diagnosis for this admission?: Yes
[2017-09-08] MEDS: OXYCODONE HCL IR 5 MG TABLET PO PRN (20:53)
[2017-09-08] MEDS ORDERED: FOLIC ACID 1 MG TABLET PO ONE (21:00)
[2017-09-08] MEDS ORDERED: MULTIVITAMIN TABLET PO ONE (21:00)
[2017-09-08] MEDS: GABAPENTIN 300 MG CAPSULE PO SCH (21:02)
[2017-09-08] MEDS: RIVAROXABAN 10 MG TABLET PO SCH (21:03)
[2017-09-08] MEDS: OXYCODONE HCL SR 40 MG TABLET PO SCH (21:05)
[2017-09-08 21:10] LABS: ABSOLUTE RETICS # 0.031 10^6/uL (0.028-0.122); RETICULOCYTE COUNT (AUTO) 1.75 % (0.66-2.85)
[2017-09-08] MEDS: HYDROXYUREA 500 MG CAPSULE PO SCH (21:44)
[2017-09-09] MEDS: AMPICILLIN SODIUM/SULBACTAM NA 3 GM in NORMAL SALINE 100 ML IV SCH ×3 (01:07→17:55)
[2017-09-09] MEDS: OXYCODONE HCL IR 5 MG TABLET PO PRN ×4 (03:04→22:16)
[2017-09-09] MEDS: OXYCODONE HCL SR 40 MG TABLET PO SCH ×3 (05:47→22:15)
[2017-09-09] MEDS: GABAPENTIN 300 MG CAPSULE PO SCH ×3 (05:48→22:16)
[2017-09-09 09:06] LABS: HEMATOCRIT 18.6 % (36.0-47.0); MEAN CORPUSCULAR HEMOGLOBIN 35.9 pg (27.0-33.4); MEAN CORPUSCULAR VOLUME 106 fl (80-97); PLATELET COUNT 224 10^3/uL (150-450); RED BLOOD COUNT 1.76 10^6/uL (3.72-5.28); RED CELL DISTRIBUTION WIDTH 26.3 % (11.5-14.0); WHITE BLOOD COUNT 5.9 10^3/uL (4.0-10.5)
[2017-09-09 09:19] LABS: HEMOGLOBIN 6.3 g/dL (12.0-15.5)
[2017-09-09 09:31] LABS: ABSOLUTE LYMPHOCYTES# (MANUAL) 1.9 10^3/uL (0.5-4.7); ABSOLUTE MONOCYTES # (MANUAL) 0.5 10^3/uL (0.1-1.4); ABSOLUTE NEUTROPHILS# (MANUAL) 3.3 10^3/uL (1.7-8.2); ANISOCYTOSIS 3+; BAND NEUTROPHILS % (MANUAL) 1 % (3-5); BASOPHILS % (MANUAL) 1 % (0-2); EOSINOPHILS % (MANUAL) 1 % (0-6); LYMPHOCYTES % (MANUAL) 30 % (13-45); MONOCYTES % (MANUAL) 9 % (3-13); OVALOCYTES 2+; PLATELET COMMENT ADEQUATE; PLATELET LARGE PRESENT; POIKILOCYTOSIS 2+; POLYCHROMASIA 1+; SCHISTOCYTES SLIGHT; SEGMENTED NEUTROPHILS % (MAN) 55 % (42-78); TOTAL CELLS COUNTED 100
[2017-09-09 09:32] LABS: ROULEAUX SLIGHT; TARGET CELLS SLIGHT
[2017-09-09 09:33] LABS: HOWELL-JOLLY BODIES PRESENT; PAPPENHEIMER BODIES PRESENT; TOXIC GRANULATION 2+
--- NOTE | 2017-09-09 09:57 | RADIOLOGY REPORT (SQ) ---
EXAM DESCRIPTION: CHEST SINGLE VIEW COMPLETED DATE/TIME: 09/08/2017 6:51 pm REASON FOR STUDY: cough COMPARISON: CT chest 08/04/2017 Chest films 08/04/2017, 03/01/2017 EXAM PARAMETERS: NUMBER OF VIEWS: One view. TECHNIQUE: Single frontal radiographic view of the chest acquired. RADIATION DOSE: NA LIMITATIONS: None. FINDINGS: LUNGS AND PLEURA: No opacities, masses or pneumothorax. No pleural effusion. MEDIASTINUM AND HILAR STRUCTURES: No masses. Contour normal. HEART AND VASCULAR STRUCTURES: Stable mild cardiomegaly BONES: No acute findings. HARDWARE: Unchanged left-sided permanent central line with the tip in the superior vena cava. Clips right upper quadrant post cholecystectomy OTHER: No other significant finding. IMPRESSION: Stable cardiomegaly TECHNICAL DOCUMENTATION: JOB ID: [id number] [employer]- All Rights Reserved Reading location - IP/workstation name: [email or web address]
[2017-09-09] MEDS: MULTIVITAMIN TABLET PO SCH (12:09)
[2017-09-09] MEDS: HYDROXYUREA 500 MG CAPSULE PO SCH ×2 (12:09→22:17)
[2017-09-09] MEDS: FOLIC ACID 1 MG TABLET PO SCH (12:09)
[2017-09-09] MEDS: EPOETIN ALFA INJ 20000 UNIT/1 ML VIAL (RENAL) SUBCUT SCH (12:10)
[2017-09-09] MEDS: EPOETIN ALFA INJ 40000 UNIT/1 ML (ONCOLOGY) SUBCUT SCH (12:10)
[2017-09-09] MEDS: NORMAL SALINE 1000 ML 1,000 ML IV PRN (12:11)
--- NOTE | 2017-09-09 16:28 | RADIOLOGY REPORT (SQ) ---
EXAM DESCRIPTION: MRI LT LOWER EXTREMITY WITHOUT COMPLETED DATE/TIME: 09/09/2017 3:48 pm REASON FOR STUDY: Left foot r/o osteomyelitis COMPARISON: No plain films for correlation TECHNIQUE: Multiplanar imaging of the left forefoot to include fat and fluid sensitive sequences. LIMITATIONS: None. FINDINGS: BONE MARROW: No marrow signal abnormalities worrisome for occult fracture or aggressive ma rrow replacement process. No marrow signal abnormalities worrisome for infection. There is joint sp josefina narrowing and minimal marrow edema at the base of the 1st toe proximal phalanx and metatarsal hea d related to osteoarthritis. SOFT TISSUES: No soft tissue abscess or swelling. OTHER: No other significant finding. IMPRESSION: NO EVIDENCE FOR OSTEOMYELITIS. TECHNICAL DOCUMENTATION: JOB ID: [id number] [employer]- All Rights Reserved Reading location - IP/workstation name: [email or web address]
[2017-09-09 19:10] LABS: APPEARANCE,URINE CLEAR; BILIRUBIN,URINE NEGATIVE (NEGATIVE); COLOR,URINE YELLOW; GLUCOSE, URINE NEGATIVE (NEGATIVE); KETONES,URINE NEGATIVE (NEGATIVE); LEUKOCYTE ESTERASE,URINE NEGATIVE (NEGATIVE); NITRITE,URINE NEGATIVE (NEGATIVE); PROTEIN,URINE NEGATIVE (NEGATIVE); URINE SPECIFIC GRAVITY 1.006; UROBILINOGEN,URINE NEGATIVE mg/dL (<2.0)
[2017-09-09] MEDS ORDERED: NORMAL SALINE 250 ML IV PRN ×2 (20:50)
--- NOTE | 2017-09-09 20:56 | PDOC PROGRESS REPORT ---
Subjective Progress Note for:: 09/09/17 Subjective:: She was seen by the bedside, MRI of the food was done osteomyelitis rule out, continue IV antibiotic Reason For Visit: CELLULITIS LEFT FOOT,FAILED OUT PATIENT TREATMENT Physical Exam Vital Signs: Temp Pulse Resp BP Pulse Ox 98.7 F 71 18 97/45 L 98 09/09/17 16:00 09/09/17 16:00 09/09/17 16:00 09/09/17 16:00 09/09/17 16:00 Intake & Output 09/08/17 09/09/17 09/10/17 06:59 06:59 06:59 Intake Total 1730 2160 Output Total 780 Balance 950 2160 Weight 62.5 kg General appearance: PRESENT: no acute distress Eye exam: PRESENT: PERRLA Respiratory exam: PRESENT: clear to auscultation carolyn Cardiovascular exam: PRESENT: +S1, +S2 GI/Abdominal exam: PRESENT: soft Neurological exam: PRESENT: alert Results Laboratory Results: 09/09/17 08:35 09/08/17 18:55 09/08/17 09/08/17 09/09/17 18:40 18:55 08:35 WBC 5.9 RBC 1.76 L Hgb 6.3 L Hct 18.6 L MCV 106 H MCH 35.9 H MCHC 34.0 RDW 26.3 H Plt Count 224 Seg Neutrophils % Not Reportable Lymphocytes % Not Reportable Monocytes % Not Reportable Eosinophils % Not Reportable Basophils % Not Reportable Absolute Neutrophils Not Reportable Absolute Lymphocytes Not Reportable Absolute Monocytes Not Reportable Absolute Eosinophils Not Reportable Absolute Basophils Not Reportable Retic Count (auto) 1.75 Absolute Retic 0.031 Urine Color YELLOW Urine Appearance CLEAR Urine pH 7.0 Ur Specific [place] 1.006 Urine Protein NEGATIVE Urine Glucose (UA) NEGATIVE Urine Ketones NEGATIVE Urine Blood NEGATIVE Urine Nitrite NEGATIVE Ur Leukocyte Esterase NEGATIVE Urine WBC (Auto) 1 Urine RBC (Auto) 0 Impressions: Chest X-Ray 09/08/17 00:00 IMPRESSION: Stable cardiomegaly Lower Extremity MRI 09/09/17 00:00 IMPRESSION: NO EVIDENCE FOR OSTEOMYELITIS. Assessment & Plan - Diagnosis (1) Cellulitis of left foot Is this a current diagnosis for this admission?: Yes (2) Sickle cell anemia Qualifiers: Sickle-cell associated disorders: with unspecified crisis Qualified Code(s) : D57.00 - Hb-SS disease with crisis, unspecified; D57.0 - Hb-SS disease with crisis Is this a current diagnosis for this admission?: Yes Plan: Transfuse with packed red blood cells, hemoglobin is 6 (3) Failure of outpatient treatment Is this a current diagnosis for this admission?: Yes
[2017-09-09] MEDS: RIVAROXABAN 10 MG TABLET PO SCH (22:16)
[2017-09-09] MEDS: DIPHENHYDRAMINE HCL 50 MG/ML VIAL IV PRN (23:18)
[2017-09-10] MEDS: OXYCODONE HCL IR 5 MG TABLET PO PRN ×5 (04:16→23:23)
[2017-09-10] MEDS: AMPICILLIN SODIUM/SULBACTAM NA 3 GM in NORMAL SALINE 100 ML IV SCH ×3 (04:17→17:28)
[2017-09-10] MEDS: GABAPENTIN 300 MG CAPSULE PO SCH ×3 (05:35→21:29)
[2017-09-10] MEDS: OXYCODONE HCL SR 40 MG TABLET PO SCH ×3 (05:35→21:29)
[2017-09-10] MEDS: DIPHENHYDRAMINE HCL 50 MG/ML VIAL IV PRN ×3 (07:56→23:23)
[2017-09-10] MEDS: MULTIVITAMIN TABLET PO SCH (10:09)
[2017-09-10] MEDS: HYDROXYUREA 500 MG CAPSULE PO SCH ×2 (10:09→21:29)
[2017-09-10] MEDS: FOLIC ACID 1 MG TABLET PO SCH (10:09)
--- NOTE | 2017-09-10 12:56 | PDOC PROGRESS REPORT ---
Subjective Progress Note for:: 09/10/17 Subjective:: pt is still complaining of a lot of pain due to sickle cell crisis Otherwise denied any fever patient hemoglobin is stable Reason For Visit: CELLULITIS LEFT FOOT,FAILED OUT PATIENT TREATMENT Physical Exam Vital Signs: Temp Pulse Resp BP Pulse Ox 98.9 F 76 20 93/59 L 98 09/10/17 11:19 09/10/17 11:19 09/10/17 11:19 09/10/17 11:19 09/10/17 11:19 Intake & Output 09/09/17 09/10/17 09/11/17 06:59 06:59 06:59 Intake Total 1730 4500 300 Output Total 780 Balance 950 4500 300 Weight 62.5 kg General appearance: PRESENT: no acute distress, well-developed, well-nourished Head exam: PRESENT: atraumatic, normocephalic Eye exam: PRESENT: conjunctiva pink, EOMI, PERRLA. ABSENT: scleral icterus Ear exam: PRESENT: normal external ear exam Mouth exam: PRESENT: moist, tongue midline Neck exam: PRESENT: full ROM. ABSENT: carotid bruit, JVD, lymphadenopathy, thyromegaly Respiratory exam: PRESENT: clear to auscultation carolyn Cardiovascular exam: PRESENT: RRR. ABSENT: diastolic murmur, rubs, systolic murmur Pulses: PRESENT: normal dorsalis pedis pul, +2 pedal pulses bilateral Vascular exam: PRESENT: normal capillary refill GI/Abdominal exam: PRESENT: normal bowel sounds, soft. ABSENT: distended, guarding, mass, organolmegaly, rebound, tenderness Rectal exam: PRESENT: deferred Neurological exam: PRESENT: alert, awake, oriented to person, oriented to place. ABSENT: motor sensory deficit Psychiatric exam: PRESENT: appropriate affect, normal mood. ABSENT: homicidal ideation, suicidal ideation Skin exam: PRESENT: dry, intact, warm. ABSENT: cyanosis, rash Results Laboratory Results: 09/09/17 08:35 09/08/17 18:55 09/08/17 09/09/17 18:40 21:25 Urine Color YELLOW Urine Appearance CLEAR Urine pH 7.0 Ur Specific [place] 1.006 Urine Protein NEGATIVE Urine Glucose (UA) NEGATIVE Urine Ketones NEGATIVE Urine Blood NEGATIVE Urine Nitrite NEGATIVE Ur Leukocyte Esterase NEGATIVE Urine WBC (Auto) 1 Urine RBC (Auto) 0 Blood Type O POSITIVE Antibody Screen NEGATIVE Impressions: Chest X-Ray 09/08/17 00:00 IMPRESSION: Stable cardiomegaly Lower Extremity MRI 09/09/17 00:00 IMPRESSION: NO EVIDENCE FOR OSTEOMYELITIS. Assessment & Plan - Diagnosis (1) Cellulitis of left foot Is this a current diagnosis for this admission?: Yes (2) Sickle cell anemia Qualifiers: Sickle-cell associated disorders: with unspecified crisis Qualified Code(s) : D57.00 - Hb-SS disease with crisis, unspecified; D57.0 - Hb-SS disease with crisis Is this a current diagnosis for this admission?: Yes (3) Anemia, sickle cell with crisis Is this a current diagnosis for this admission?: Yes (4) Chronic pain syndrome Is this a current diagnosis for this admission?: Yes - Time Time Spent with patient: 15-24 minutes Medications reviewed and adjusted accordingly: Yes Anticipated discharge: Other Within: Other - Inpatient Certification Medical Necessity: Need Close Monitoring Due to Risk of Patient Decompensation, Need For IV Fluids 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
[2017-09-10] MEDS: RIVAROXABAN 10 MG TABLET PO SCH (21:29)
[2017-09-11] MEDS: AMPICILLIN SODIUM/SULBACTAM NA 3 GM in NORMAL SALINE 100 ML IV SCH ×3 (01:51→17:47)
[2017-09-11] MEDS: OXYCODONE HCL IR 5 MG TABLET PO PRN ×5 (03:27→21:06)
[2017-09-11] MEDS: OXYCODONE HCL SR 40 MG TABLET PO SCH ×3 (05:35→21:06)
[2017-09-11] MEDS: DIPHENHYDRAMINE HCL 50 MG/ML VIAL IV PRN ×4 (05:35→22:58)
[2017-09-11] MEDS: GABAPENTIN 300 MG CAPSULE PO SCH ×3 (05:35→21:06)
--- NOTE | 2017-09-11 07:19 | PDOC PROGRESS REPORT ---
Subjective Progress Note for:: 09/11/17 Subjective:: pt is still complaining of a lot of pain due to sickle cell crisis Otherwise denied any fever patient hemoglobin is stable Reason For Visit: CELLULITIS LEFT FOOT,FAILED OUT PATIENT TREATMENT Physical Exam Vital Signs: Temp Pulse Resp BP Pulse Ox 99.3 F 74 19 104/60 97 09/11/17 00:00 09/11/17 00:00 09/11/17 00:00 09/11/17 00:00 09/11/17 00:00 Intake & Output 09/10/17 09/11/17 09/12/17 06:59 06:59 06:59 Intake Total 4500 3150 Balance 4500 3150 Weight 67.5 kg General appearance: PRESENT: no acute distress, well-developed, well-nourished Head exam: PRESENT: atraumatic, normocephalic Eye exam: PRESENT: conjunctiva pink, EOMI, PERRLA. ABSENT: scleral icterus Ear exam: PRESENT: normal external ear exam Mouth exam: PRESENT: moist, tongue midline Neck exam: PRESENT: full ROM. ABSENT: carotid bruit, JVD, lymphadenopathy, thyromegaly Respiratory exam: PRESENT: clear to auscultation carolyn Cardiovascular exam: PRESENT: RRR. ABSENT: diastolic murmur, rubs, systolic murmur Pulses: PRESENT: normal dorsalis pedis pul, +2 pedal pulses bilateral Vascular exam: PRESENT: normal capillary refill GI/Abdominal exam: PRESENT: normal bowel sounds, soft. ABSENT: distended, guarding, mass, organolmegaly, rebound, tenderness Rectal exam: PRESENT: deferred Additional comments: Left lower extremity discolorations with chronic venous status changes Neurological exam: PRESENT: alert, awake, oriented to person, oriented to place , oriented to time, oriented to situation, CN II-XII grossly intact. ABSENT: motor sensory deficit Psychiatric exam: PRESENT: appropriate affect, normal mood. ABSENT: homicidal ideation, suicidal ideation Skin exam: PRESENT: dry, intact, warm. ABSENT: cyanosis, rash Results Laboratory Results: 09/09/17 08:35 09/08/17 18:55 Impressions: Chest X-Ray 09/08/17 00:00 IMPRESSION: Stable cardiomegaly Lower Extremity MRI 09/09/17 00:00 IMPRESSION: NO EVIDENCE FOR OSTEOMYELITIS. Assessment & Plan - Diagnosis (1) Cellulitis of left foot Is this a current diagnosis for this admission?: Yes (2) Sickle cell anemia Qualifiers: Sickle-cell associated disorders: with unspecified crisis Qualified Code(s) : D57.00 - Hb-SS disease with crisis, unspecified; D57.0 - Hb-SS disease with crisis Is this a current diagnosis for this admission?: Yes (3) Anemia, sickle cell with crisis Is this a current diagnosis for this admission?: Yes (4) Chronic pain syndrome Is this a current diagnosis for this admission?: Yes - Time Time Spent with patient: 15-24 minutes Medications reviewed and adjusted accordingly: Yes Anticipated discharge: Other Within: Other - Inpatient Certification Medical Necessity: Need Close Monitoring Due to Risk of Patient Decompensation 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
[2017-09-11 08:10] LABS: HEMATOCRIT 23.5 % (36.0-47.0); HEMOGLOBIN 8.2 g/dL (12.0-15.5); MEAN CORPUSCULAR HEMOGLOBIN 34.8 pg (27.0-33.4); MEAN CORPUSCULAR HGB CONC 34.7 g/dL (32.0-36.0); PLATELET COUNT 286 10^3/uL (150-450); RED BLOOD COUNT 2.34 10^6/uL (3.72-5.28); RED CELL DISTRIBUTION WIDTH 23.7 % (11.5-14.0); WHITE BLOOD COUNT 6.7 10^3/uL (4.0-10.5)
[2017-09-11 08:21] LABS: ANION GAP 6 (5-19); BLOOD UREA NITROGEN 5 mg/dL (7-20); CALCIUM 8.9 mg/dL (8.4-10.2); CARBON DIOXIDE 26 mmol/L (22-30); CHLORIDE 108 mmol/L (98-107); GLUCOSE 85 mg/dL (75-110); POTASSIUM 3.7 mmol/L (3.6-5.0); SODIUM 139.9 mmol/L (137-145)
[2017-09-11] MEDS: GUAIFENESIN 600 MG TABLET.SA PO SCH ×2 (08:21→21:06)
[2017-09-11 08:34] LABS: MEAN CORPUSCULAR VOLUME 100 fl (80-97)
[2017-09-11 08:40] LABS: ABSOLUTE LYMPHOCYTES# (MANUAL) 3.1 10^3/uL (0.5-4.7); ABSOLUTE MONOCYTES # (MANUAL) 0.4 10^3/uL (0.1-1.4); ABSOLUTE NEUTROPHILS# (MANUAL) 2.8 10^3/uL (1.7-8.2); BAND NEUTROPHILS % (MANUAL) 1 % (3-5); BASOPHILS % (MANUAL) 0 % (0-2); EOSINOPHILS % (MANUAL) 5 % (0-6); LYMPHOCYTES % (MANUAL) 47 % (13-45); MONOCYTES % (MANUAL) 6 % (3-13); NUCLEATED RED BLOOD CELLS 2 /100 WBC (0); SEGMENTED NEUTROPHILS % (MAN) 41 % (42-78); TOTAL CELLS COUNTED 100
[2017-09-11 08:42] LABS: ANISOCYTOSIS 3+; POIKILOCYTOSIS 1+; POLYCHROMASIA 1+; TOXIC GRANULATION 1+
[2017-09-11 08:43] LABS: OVALOCYTES 2+; PLATELET CLUMPS PRESENT; PLATELET COMMENT ADEQUATE; TARGET CELLS 1+
[2017-09-11] MEDS: MULTIVITAMIN TABLET PO SCH (10:16)
[2017-09-11] MEDS: FOLIC ACID 1 MG TABLET PO SCH (10:16)
[2017-09-11] MEDS: HYDROXYUREA 500 MG CAPSULE PO SCH ×2 (10:17→21:06)
[2017-09-11] MEDS: RIVAROXABAN 10 MG TABLET PO SCH (21:06)
[2017-09-12] MEDS: OXYCODONE HCL IR 5 MG TABLET PO PRN ×2 (02:32→07:43)
[2017-09-12] MEDS: AMPICILLIN SODIUM/SULBACTAM NA 3 GM in NORMAL SALINE 100 ML IV SCH ×3 (02:32→17:36)
[2017-09-12] MEDS: DIPHENHYDRAMINE HCL 50 MG/ML VIAL IV PRN ×4 (05:16→23:25)
[2017-09-12] MEDS: GABAPENTIN 300 MG CAPSULE PO SCH ×3 (05:16→22:01)
[2017-09-12] MEDS: OXYCODONE HCL SR 40 MG TABLET PO SCH ×3 (05:16→22:00)
[2017-09-12] MEDS: GUAIFENESIN 600 MG TABLET.SA PO SCH ×2 (07:43→19:50)
[2017-09-12] MEDS: FOLIC ACID 1 MG TABLET PO SCH (10:03)
[2017-09-12] MEDS: MULTIVITAMIN TABLET PO SCH (10:03)
[2017-09-12] MEDS: HYDROXYUREA 500 MG CAPSULE PO SCH ×2 (10:03→22:01)
[2017-09-12] MEDS: NORMAL SALINE 1000 ML 1,000 ML IV PRN ×2 (11:12→22:06)
[2017-09-12] MEDS: HYDROMORPHONE HCL 2 MG TABLET PO PRN ×2 (12:56→19:50)
--- NOTE | 2017-09-12 20:28 | RADIOLOGY REPORT (SQ) ---
EXAM DESCRIPTION: KNEE RIGHT 2 VIEWS COMPLETED DATE/TIME: 09/12/2017 7:40 pm REASON FOR STUDY: right knee pain COMPARISON: 11/23/2014 NUMBER OF VIEWS: Two views. TECHNIQUE: AP and lateral radiographic images acquired of the right knee. LIMITATIONS: None. FINDINGS: MINERALIZATION: Normal. BONES: There is questionably mild depression of the lateral tibial plateau. No definite fracture is seen. There are some marginal osteophytes. JOINT: No effusion. SOFT TISSUES: No soft tissue swelling. No radio-opaque foreign body. OTHER: No other significant finding. IMPRESSION: Cannot exclude mild depression of the lateral tibial plateau. The absence of a signific ant joint effusion would mitigate against tibial plateau fracture. Mild degenerative joint changes i s seen in the lateral joint compartment. TECHNICAL DOCUMENTATION: JOB ID: [id number]- All Rights Reserved Reading location - IP/workstation name: [email or web address]
--- NOTE | 2017-09-12 21:45 | PDOC PROGRESS REPORT ---
Subjective Progress Note for:: 09/12/17 Subjective:: She was seen by the bedside, she complains of pain on the right knee, x-ray was done, so just osteoarthritis, the left foot is improving, MRI negative for osteomyelitis Reason For Visit: CELLULITIS LEFT FOOT,FAILED OUT PATIENT TREATMENT Physical Exam Vital Signs: Temp Pulse Resp BP Pulse Ox 99.2 F 66 20 104/54 L 99 09/12/17 19:47 09/12/17 19:47 09/12/17 19:47 09/12/17 19:47 09/12/17 19:47 Intake & Output 09/11/17 09/12/17 09/13/17 06:59 06:59 06:59 Intake Total 3150 3944 764 Balance 3150 3944 764 Weight 67.5 kg 67.8 kg General appearance: PRESENT: no acute distress Eye exam: PRESENT: PERRLA Respiratory exam: PRESENT: clear to auscultation carolyn Cardiovascular exam: PRESENT: +S2 Neurological exam: PRESENT: alert Results Laboratory Results: 09/11/17 07:29 09/11/17 07:29 Impressions: Chest X-Ray 09/08/17 00:00 IMPRESSION: Stable cardiomegaly Lower Extremity MRI 09/09/17 00:00 IMPRESSION: NO EVIDENCE FOR OSTEOMYELITIS. Knee X-Ray 09/12/17 00:00 IMPRESSION: Cannot exclude mild depression of the lateral tibial plateau. The absence of a significant joint effusion would mitigate against tibial plateau fracture. Mild degenerative joint changes is seen in the lateral joint compartment. Assessment & Plan - Diagnosis (1) Cellulitis of left foot Is this a current diagnosis for this admission?: Yes (2) Sickle cell anemia Qualifiers: Sickle-cell associated disorders: with unspecified crisis Qualified Code(s) : D57.00 - Hb-SS disease with crisis, unspecified; D57.0 - Hb-SS disease with crisis Is this a current diagnosis for this admission?: Yes (3) Failure of outpatient treatment Is this a current diagnosis for this admission?: Yes - Plan Summary Plan Summary: Continue treatment
[2017-09-12] MEDS: RIVAROXABAN 10 MG TABLET PO SCH (22:00)
[2017-09-13] MEDS: AMPICILLIN SODIUM/SULBACTAM NA 3 GM in NORMAL SALINE 100 ML IV SCH ×3 (01:09→17:30)
[2017-09-13] MEDS: HYDROMORPHONE HCL 2 MG TABLET PO PRN ×4 (01:52→19:46)
[2017-09-13] MEDS: GABAPENTIN 300 MG CAPSULE PO SCH ×3 (05:47→21:28)
[2017-09-13] MEDS: OXYCODONE HCL SR 40 MG TABLET PO SCH ×3 (05:47→21:27)
[2017-09-13] MEDS: DIPHENHYDRAMINE HCL 50 MG/ML VIAL IV PRN ×3 (05:47→18:17)
[2017-09-13] MEDS: GUAIFENESIN 600 MG TABLET.SA PO SCH ×2 (08:06→19:46)
[2017-09-13] MEDS: MULTIVITAMIN TABLET PO SCH (09:20)
[2017-09-13] MEDS: HYDROXYUREA 500 MG CAPSULE PO SCH ×2 (09:20→21:28)
[2017-09-13] MEDS: FOLIC ACID 1 MG TABLET PO SCH (09:20)
[2017-09-13] MEDS: RIVAROXABAN 10 MG TABLET PO SCH (21:28)
--- NOTE | 2017-09-13 21:35 | PDOC PROGRESS REPORT ---
Subjective Progress Note for:: 09/13/17 Subjective:: She was seen by the bedside, continue antibiotic for 1 more day, continue present treatment Reason For Visit: CELLULITIS LEFT FOOT,FAILED OUT PATIENT TREATMENT Physical Exam Vital Signs: Temp Pulse Resp BP Pulse Ox 99.3 F 70 18 101/63 98 09/13/17 15:43 09/13/17 15:43 09/13/17 15:43 09/13/17 15:43 09/13/17 15:43 Intake & Output 09/12/17 09/13/17 09/14/17 06:59 06:59 06:59 Intake Total 3944 2967 1964 Output Total 3050 Balance 3944 -83 1964 Weight 67.8 kg General appearance: PRESENT: no acute distress Eye exam: PRESENT: PERRLA Respiratory exam: PRESENT: clear to auscultation carolyn Cardiovascular exam: PRESENT: +S1, +S2 GI/Abdominal exam: PRESENT: soft Neurological exam: PRESENT: alert, CN II-XII grossly intact Results Laboratory Results: 09/11/17 07:29 09/11/17 07:29 09/08/17 19:09 Blood Blood Culture - Final NO GROWTH IN 5 DAYS 09/08/17 18:55 Blood Blood Culture - Final NO GROWTH IN 5 DAYS Impressions: Chest X-Ray 09/08/17 00:00 IMPRESSION: Stable cardiomegaly Lower Extremity MRI 09/09/17 00:00 IMPRESSION: NO EVIDENCE FOR OSTEOMYELITIS. Knee X-Ray 09/12/17 00:00 IMPRESSION: Cannot exclude mild depression of the lateral tibial plateau. The absence of a significant joint effusion would mitigate against tibial plateau fracture. Mild degenerative joint changes is seen in the lateral joint compartment. Assessment & Plan - Diagnosis (1) Cellulitis of left foot Is this a current diagnosis for this admission?: Yes (2) Sickle cell anemia Qualifiers: Sickle-cell associated disorders: with unspecified crisis Qualified Code(s) : D57.00 - Hb-SS disease with crisis, unspecified; D57.0 - Hb-SS disease with crisis Is this a current diagnosis for this admission?: Yes (3) Failure of outpatient treatment Is this a current diagnosis for this admission?: Yes
[2017-09-14] MEDS: DIPHENHYDRAMINE HCL 50 MG/ML VIAL IV PRN ×4 (00:20→17:58)
[2017-09-14] MEDS: HYDROMORPHONE HCL 2 MG TABLET PO PRN ×4 (02:28→20:54)
[2017-09-14] MEDS: AMPICILLIN SODIUM/SULBACTAM NA 3 GM in NORMAL SALINE 100 ML IV SCH ×2 (02:28→09:34)
[2017-09-14] MEDS: OXYCODONE HCL SR 40 MG TABLET PO SCH ×3 (05:52→20:54)
[2017-09-14] MEDS: GABAPENTIN 300 MG CAPSULE PO SCH ×3 (05:52→20:54)
[2017-09-14] MEDS: HYDROXYUREA 500 MG CAPSULE PO SCH ×2 (09:34→20:58)
[2017-09-14] MEDS: GUAIFENESIN 600 MG TABLET.SA PO SCH ×2 (09:34→20:54)
[2017-09-14] MEDS: MULTIVITAMIN TABLET PO SCH (09:34)
[2017-09-14] MEDS: FOLIC ACID 1 MG TABLET PO SCH (09:34)
[2017-09-14] MEDS ORDERED: AMPICILLIN SODIUM/SULBACTAM NA 3 GM in NORMAL SALINE 100 ML IV SCH (18:00)
--- NOTE | 2017-09-14 20:20 | PDOC PROGRESS REPORT ---
Subjective Progress Note for:: 09/14/17 Subjective:: Patient is seen by the bedside the cellulitis of the left foot is improved, she had a low-grade fever, she said she has more pain today Reason For Visit: CELLULITIS LEFT FOOT,FAILED OUT PATIENT TREATMENT Physical Exam Vital Signs: Temp Pulse Resp BP Pulse Ox 99.2 F 76 14 101/65 100 09/14/17 16:39 09/14/17 16:39 09/14/17 16:39 09/14/17 16:39 09/14/17 16:39 Intake & Output 09/13/17 09/14/17 09/15/17 06:59 06:59 06:59 Intake Total 2967 4096 3000 Output Total 3050 2700 2000 Balance -83 1396 1000 General appearance: PRESENT: no acute distress Head exam: PRESENT: atraumatic, normocephalic Neck exam: PRESENT: full ROM Respiratory exam: PRESENT: clear to auscultation carolyn Cardiovascular exam: PRESENT: RRR, +S1, +S2 Pulses: PRESENT: normal dorsalis pedis pul, +2 pedal pulses bilateral Vascular exam: PRESENT: normal capillary refill GI/Abdominal exam: PRESENT: normal bowel sounds, soft Rectal exam: PRESENT: deferred Neurological exam: PRESENT: alert, awake, oriented to person, oriented to place , oriented to time, oriented to situation, CN II-XII grossly intact Psychiatric exam: PRESENT: appropriate affect, normal mood Skin exam: PRESENT: dry, intact, warm. ABSENT: cyanosis, rash Results Laboratory Results: 09/11/17 07:29 09/11/17 07:29 09/08/17 19:09 Blood Blood Culture - Final NO GROWTH IN 5 DAYS 09/08/17 18:55 Blood Blood Culture - Final NO GROWTH IN 5 DAYS Impressions: Chest X-Ray 09/08/17 00:00 IMPRESSION: Stable cardiomegaly Lower Extremity MRI 09/09/17 00:00 IMPRESSION: NO EVIDENCE FOR OSTEOMYELITIS. Knee X-Ray 09/12/17 00:00 IMPRESSION: Cannot exclude mild depression of the lateral tibial plateau. The absence of a significant joint effusion would mitigate against tibial plateau fracture. Mild degenerative joint changes is seen in the lateral joint compartment. Assessment & Plan - Diagnosis (1) Cellulitis of left foot Is this a current diagnosis for this admission?: Yes (2) Sickle cell anemia Qualifiers: Sickle-cell associated disorders: with unspecified crisis Qualified Code(s) : D57.00 - Hb-SS disease with crisis, unspecified; D57.0 - Hb-SS disease with crisis Is this a current diagnosis for this admission?: Yes (3) Failure of outpatient treatment Is this a current diagnosis for this admission?: Yes
[2017-09-14] MEDS: RIVAROXABAN 10 MG TABLET PO SCH (20:54)
[2017-09-14] MEDS: NORMAL SALINE 1000 ML 1,000 ML IV PRN (20:54)
[2017-09-15] MEDS: DIPHENHYDRAMINE HCL 50 MG/ML VIAL IV PRN ×4 (00:04→18:24)
[2017-09-15] MEDS: HYDROMORPHONE HCL 2 MG TABLET PO PRN ×4 (03:38→22:08)
[2017-09-15] MEDS: OXYCODONE HCL SR 40 MG TABLET PO SCH ×2 (06:07→14:00)
[2017-09-15] MEDS: GABAPENTIN 300 MG CAPSULE PO SCH ×3 (06:07→22:09)
[2017-09-15] MEDS: GUAIFENESIN 600 MG TABLET.SA PO SCH ×2 (09:31→20:23)
[2017-09-15] MEDS: HYDROXYUREA 500 MG CAPSULE PO SCH ×2 (09:31→22:10)
[2017-09-15] MEDS: MULTIVITAMIN TABLET PO SCH (09:31)
[2017-09-15] MEDS: FOLIC ACID 1 MG TABLET PO SCH (09:31)
[2017-09-15] MEDS: NORMAL SALINE 1000 ML 1,000 ML IV PRN (18:04)
--- NOTE | 2017-09-15 20:48 | PDOC PROGRESS REPORT ---
Subjective Progress Note for:: 09/15/17 Subjective:: She was seen by the bedside, she complained of itching and some discoloration of the left foot, advised to use Bactroban cream Reason For Visit: CELLULITIS LEFT FOOT,FAILED OUT PATIENT TREATMENT Physical Exam Vital Signs: Temp Pulse Resp BP Pulse Ox 98.8 F 74 16 95/52 L 96 09/15/17 15:21 09/15/17 15:21 09/15/17 15:21 09/15/17 15:21 09/15/17 15:21 Intake & Output 09/14/17 09/15/17 09/16/17 06:59 06:59 06:59 Intake Total 4096 4644 4135 Output Total 2700 2000 Balance 1396 2644 4135 General appearance: PRESENT: no acute distress Eye exam: PRESENT: PERRLA Respiratory exam: PRESENT: clear to auscultation carolyn Cardiovascular exam: PRESENT: +S1, +S2 Results Laboratory Results: 09/11/17 07:29 09/11/17 07:29 Impressions: Chest X-Ray 09/08/17 00:00 IMPRESSION: Stable cardiomegaly Lower Extremity MRI 09/09/17 00:00 IMPRESSION: NO EVIDENCE FOR OSTEOMYELITIS. Knee X-Ray 09/12/17 00:00 IMPRESSION: Cannot exclude mild depression of the lateral tibial plateau. The absence of a significant joint effusion would mitigate against tibial plateau fracture. Mild degenerative joint changes is seen in the lateral joint compartment. Assessment & Plan - Diagnosis (1) Cellulitis of left foot Is this a current diagnosis for this admission?: Yes (2) Sickle cell anemia Qualifiers: Sickle-cell associated disorders: with unspecified crisis Qualified Code(s) : D57.00 - Hb-SS disease with crisis, unspecified; D57.0 - Hb-SS disease with crisis Is this a current diagnosis for this admission?: Yes (3) Failure of outpatient treatment Is this a current diagnosis for this admission?: Yes
[2017-09-15] MEDS ORDERED: MUPIROCIN CALCIUM 2% CREAM 15 GM TP ONE (22:00)
[2017-09-15] MEDS: RIVAROXABAN 10 MG TABLET PO SCH (22:09)
[2017-09-16] MEDS: DIPHENHYDRAMINE HCL 50 MG/ML VIAL IV PRN ×2 (00:28→06:29)
[2017-09-16] MEDS: HYDROMORPHONE HCL 2 MG TABLET PO PRN ×2 (04:01→10:17)
[2017-09-16] MEDS: NORMAL SALINE 1000 ML 1,000 ML IV PRN (04:04)
[2017-09-16] MEDS: GABAPENTIN 300 MG CAPSULE PO SCH (06:29)
--- NOTE | 2017-09-16 08:13 | PDOC DISCHARGE SUMMARY ---
General - Admit/Disc Date/PCP Admission Date/Primary Care Provider: 09/09/17 16:00 HOMA BARRAZA MD Discharge Date: 09/16/17 - Discharge Diagnosis (1) Cellulitis of left foot Is this a current diagnosis for this admission?: Yes (2) Sickle cell anemia Is this a current diagnosis for this admission?: Yes (3) Failure of outpatient treatment Is this a current diagnosis for this admission?: Yes - Additional Information Discharge Activity: Activity As Tolerated Home Medications: Epoetin Federico [Procrit Inj 40,000 Unit/1 ml Vial (Oncology)] 40,000 unit SUBCUT FR@1000 08/04/17 Epoetin Federico [Procrit] 20,000 unit SUBCUT FR@1000 08/04/17 Folic Acid [Folvite 1 mg Tablet] 1 mg PO DAILY 08/04/17 Gabapentin [Neurontin 300 mg Capsule] 300 mg PO Q8 08/04/17 Hydroxyurea [Hydrea 500 mg Capsule] 500 mg PO BID 08/04/17 Ibuprofen [Motrin 800 mg Tablet] 800 mg PO Q8 08/04/17 Multivitamin [Tab-A-Yosvany] 1 tab PO DAILY 08/04/17 Oxycodone HCl 30 mg PO Q6HP PRN 08/04/17 Oxycodone HCl [Oxycontin Sr 40 mg Tablet] 40 mg PO Q8 08/04/17 Rivaroxaban [Xarelto] 20 mg PO QHS 08/04/17 History of Present Illness History of Present Illness: WILLIE ALAN is a 47 year old female, She has a history of sickle cell disease, she was in the office on Tuesday for evaluation of left foot pain, she was diagnosed with cellulitis and she was prescribed clindamycin. 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 Hospital Course Hospital Course: Patient was admitted for the management of cellulitis of the left foot, she failed outpatient treatment, she was treated outpatient with p.o. clindamycin for 5 days without much improvement she was admitted to the hospital treated with IV Unasyn ,MRI of the foot was done Osteomyelits was rule out as a potential cause. She requiredmedication for the control of chronic pain from sickle cell disease, she required blood transfusion from sickle cell anemia. Physical Exam Vital Signs: Temp Pulse Resp BP Pulse Ox 98.6 F 72 18 93/54 L 99 09/16/17 03:42 09/16/17 03:42 09/16/17 03:42 09/16/17 03:42 09/16/17 03:42 Intake & Output 09/15/17 09/16/17 09/17/17 06:59 06:59 06:59 Intake Total 4644 5335 Output Total 2000 Balance 2644 5335 General appearance: PRESENT: no acute distress, well-developed, well-nourished Head exam: PRESENT: atraumatic, normocephalic Eye exam: PRESENT: conjunctiva pink, EOMI, PERRLA Ear exam: PRESENT: normal external ear exam Mouth exam: PRESENT: moist, tongue midline Neck exam: PRESENT: full ROM. ABSENT: carotid bruit, JVD, lymphadenopathy, thyromegaly Respiratory exam: PRESENT: clear to auscultation carolyn Cardiovascular exam: PRESENT: RRR, +S1, +S2 Pulses: PRESENT: normal dorsalis pedis pul, +2 pedal pulses bilateral Vascular exam: PRESENT: normal capillary refill GI/Abdominal exam: PRESENT: normal bowel sounds, soft Rectal exam: PRESENT: deferred Neurological exam: PRESENT: alert, awake, oriented to person, oriented to place , oriented to time, oriented to situation, CN II-XII grossly intact Psychiatric exam: PRESENT: appropriate affect, normal mood Skin exam: PRESENT: dry, intact, warm. ABSENT: cyanosis, rash Results Laboratory Results: 09/11/17 07:29 09/11/17 07:29 Impressions: Chest X-Ray 09/08/17 00:00 IMPRESSION: Stable cardiomegaly Lower Extremity MRI 09/09/17 00:00 IMPRESSION: NO EVIDENCE FOR OSTEOMYELITIS. Knee X-Ray 09/12/17 00:00 IMPRESSION: Cannot exclude mild depression of the lateral tibial plateau. The absence of a significant joint effusion would mitigate against tibial plateau fracture. Mild degenerative joint changes is seen in the lateral joint compartment. Qualifiers - * PATEINT BEING DISCHARGED WITH ANY OF THE FOLLOWING DIAGNOSIS?: No VTE patient discharged on overlapping Therapy?: Yes
[2017-09-16 09:22] VITALS: BP 98/58
[2017-09-16] MEDS ORDERED: MUPIROCIN CALCIUM 2% CREAM 15 GM TP SCH (10:00)
[2017-09-16] MEDS: GUAIFENESIN 600 MG TABLET.SA PO SCH (10:14)
[2017-09-16] MEDS: EPOETIN ALFA INJ 40000 UNIT/1 ML (ONCOLOGY) SUBCUT SCH (10:17)
[2017-09-16] MEDS: MULTIVITAMIN TABLET PO SCH (10:17)
[2017-09-16] MEDS: EPOETIN ALFA INJ 20000 UNIT/1 ML VIAL (RENAL) SUBCUT SCH (10:17)
[2017-09-16] MEDS: FOLIC ACID 1 MG TABLET PO SCH (10:17)
[2017-09-16] MEDS: HYDROXYUREA 500 MG CAPSULE PO SCH (10:17)
== END 2017-09-16 14:38 | disposition home or self-care (01) | DRG 602 ==
LOC: 5 17:04 → OBSVTOIN 09-09 16:00 → 2N 09-15 23:02
PROVIDERS: ADMIT Internal Medicine; ATTEND Internal Medicine
PROC: 30233N1 Transfusion of Nonautologous Red Blood Cells into Peripheral Vein, Percutaneous Approach (ICD-10-PCS; principal; 2017-09-10)
DX: L03.116 Cellulitis of left lower limb (principal); D57.00 Hb-SS disease with crisis, unspecified; R01.1 Cardiac murmur, unspecified; G89.4 Chronic pain syndrome; Z79.899 Other long term (current) drug therapy; Z86.14 Personal history of Methicillin resistant Staphylococcus aureus infection; Z90.49 Acquired absence of other specified parts of digestive tract; Z88.3 Allergy status to other anti-infective agents; Z90.81 Acquired absence of spleen; Z88.6 Allergy status to analgesic agent
CPT/HCPCS: 36415; 36430; 71045; 80048; 80076; 81001; 83010; 83615; 85025; 85045; 86850; 86900; 86901; 86920; 87040; 87086; G0378; G0379; J0295; J0885; J1200; J3490; J7030; J7050; P9016; Q4081

== ENCOUNTER 2017-10-09 08:26 | Emergency (ER) | payer MEDICAID ==
[2017-10-09] MEDS ORDERED: HYDROMORPHONE HCL INJ/PF 2 MG/ML AMPULE IV ONE ×2 (09:08→12:03)
[2017-10-09] MEDS ORDERED: NORMAL SALINE 1000 ML 1,000 ML IV ONE ×2 (09:08→11:39)
[2017-10-09 09:09] VITALS: BP 97/55
--- NOTE | 2017-10-09 09:44 | RADIOLOGY REPORT (SQ) ---
EXAM DESCRIPTION: CHEST 2 VIEWS COMPLETED DATE/TIME: 10/09/2017 9:32 am REASON FOR STUDY: sickle cell, pain COMPARISON: 08/04/2017 EXAM PARAMETERS: NUMBER OF VIEWS: two views TECHNIQUE: Digital Frontal and Lateral radiographic views of the chest acquired. RADIATION DOSE: NA LIMITATIONS: none FINDINGS: LUNGS AND PLEURA: Stable chronic lung change without new opacities, masses or pneumothorax . No pleural effusion. MEDIASTINUM AND HILAR STRUCTURES: No masses or contour abnormalities. HEART AND VASCULAR STRUCTURES: Heart stable in size. No evidence for failure. BONES: Stable chronic changes compatible with history of sickle cell disease. No acute osseous abnor mality. HARDWARE: Stable. OTHER: No other significant finding. IMPRESSION: NO ACUTE RADIOGRAPHIC FINDING IN THE CHEST. STABLE CHRONIC CHANGES RELATED TO PATIENT'S KNOWN SICKLE CELL DISEASE. TECHNICAL DOCUMENTATION: JOB ID: [id number] [email or web address]- All Rights Reserved Reading location - IP/workstation name: [email or web address]
[2017-10-09 10:10] LABS: ABSOLUTE RETICS # 0.123 10^6/uL (0.028-0.122); HEMATOCRIT 23.8 % (36.0-47.0); HEMOGLOBIN 8.2 g/dL (12.0-15.5); MEAN CORPUSCULAR HGB CONC 34.3 g/dL (32.0-36.0); PLATELET COUNT 272 10^3/uL (150-450); RED BLOOD COUNT 2.27 10^6/uL (3.72-5.28); RED CELL DISTRIBUTION WIDTH 25.7 % (11.5-14.0); RETICULOCYTE COUNT (AUTO) 5.42 % (0.66-2.85); WHITE BLOOD COUNT 5.2 10^3/uL (4.0-10.5)
[2017-10-09] MEDS ORDERED: FENTANYL CITRATE INJ/PF 100 MCG/2 ML AMPUL IV ONE (10:21)
[2017-10-09 10:26] LABS: ALANINE AMINOTRANSFERASE 63 U/L (9-52); ALBUMIN 3.6 g/dL (3.5-5.0); ALKALINE PHOSPHATASE 141 U/L (38-126); ANION GAP 9 (5-19); ASPARTATE AMINO TRANSFERASE 57 U/L (14-36); BILIRUBIN,DIRECT 0.7 mg/dL (0.0-0.4); BILIRUBIN,TOTAL 2.4 mg/dL (0.2-1.3); BLOOD UREA NITROGEN 7 mg/dL (7-20); CALCIUM 8.7 mg/dL (8.4-10.2); CARBON DIOXIDE 26 mmol/L (22-30); CHLORIDE 108 mmol/L (98-107); GLUCOSE 100 mg/dL (75-110); POTASSIUM 3.8 mmol/L (3.6-5.0); TOTAL PROTEIN 6.4 g/dL (6.3-8.2)
[2017-10-09 10:35] LABS: MEAN CORPUSCULAR VOLUME 105 fl (80-97)
[2017-10-09 10:41] LABS: ABSOLUTE LYMPHOCYTES# (MANUAL) 1.6 10^3/uL (0.5-4.7); ABSOLUTE MONOCYTES # (MANUAL) 0.3 10^3/uL (0.1-1.4); ABSOLUTE NEUTROPHILS# (MANUAL) 3.4 10^3/uL (1.7-8.2); BASOPHILS % (MANUAL) 0 % (0-2); EOSINOPHILS % (MANUAL) 0 % (0-6); LYMPHOCYTES % (MANUAL) 30 % (13-45); MONOCYTES % (MANUAL) 5 % (3-13); NUCLEATED RED BLOOD CELLS 19 /100 WBC (0); SEGMENTED NEUTROPHILS % (MAN) 65 % (42-78); TOTAL CELLS COUNTED 100
[2017-10-09 10:54] LABS: ANISOCYTOSIS 3+; OVALOCYTES 1+; POIKILOCYTOSIS 2+; POLYCHROMASIA 1+; TARGET CELLS SLIGHT
[2017-10-09 10:55] LABS: PLATELET COMMENT ADEQUATE
[2017-10-09] MEDS ORDERED: KETOROLAC TROMETHAMINE INJ/PF 30 MG/1 ML SDV IV ONE (11:39)
--- NOTE | 2017-10-09 12:30 | ER Document Report ---
ED General Pain - General Chief Complaint: Low Back Pain Stated Complaint: LOWER BACK/LEG PAIN Time Seen by Provider: 10/09/17 08:57 Mode of Arrival: Ambulatory Information source: Patient Notes: Patient is a 47 year old female with sickle cell anemia who presents to the ER today for bilateral leg and arm pain that started last night. Patient has OxyContin and oxycodone that she takes at home for pain but states has not been helping. She admits to intermittent chest pain only after I asked her if she has had chest pain. Patient denies any shortness of breath, nausea, vomiting, fever or chills. She sees Dr. Parker for her sickle cell. TRAVEL OUTSIDE OF THE [place] IN LAST 30 DAYS: No - Related Data Allergies/Adverse Reactions: doxycycline [Doxycycline] Allergy (Severe, Verified 03/02/17 20:20) Past Medical History - General Information source: Patient - Social History Smoking Status: Never Smoker Chew tobacco use (# tins/day): No Frequency of alcohol use: None Drug Abuse: None Family History: Reviewed & Not Pertinent Patient has suicidal ideation: No Patient has homicidal ideation: No - Past Medical History Cardiac Medical History: Reports: Hx Heart Murmur Denies: Hx Atrial Fibrillation, Hx Congestive Heart Failure, Hx Coronary Artery Disease, Hx Heart Attack, Hx Hypercholesterolemia, Hx Hypertension, Hx Peripheral Vascular Disease Pulmonary Medical History: Denies: Hx Tuberculosis Neurological Medical History: Denies: Hx Seizures Renal/ Medical History: Reports: Hx Ovarian Cysts. 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 Denies: Hx HIV Past Surgical History: Reports: Hx Appendectomy, Hx Section, Hx Cholecystectomy, Hx Orthopedic Surgery - R knee, Hx Tonsillectomy. Denies: Hx Bowel Surgery, Hx Coronary Artery Bypass Graft, Hx Gastric Bypass Surgery, Hx Herniorrhaphy, Hx Mastectomy, Hx Pacemaker, Hx Tubal Ligation - Immunizations Immunizations up to date: Yes Hx Diphtheria, Pertussis, Tetanus Vaccination: Yes Hx Pneumococcal Vaccination: 03/20/14 Review of Systems - Review of Systems Constitutional: No symptoms reported EENT: No symptoms reported Cardiovascular: See HPI Respiratory: No symptoms reported Gastrointestinal: No symptoms reported Genitourinary: No symptoms reported Female Genitourinary: No symptoms reported Musculoskeletal: See HPI Skin: No symptoms reported Hematologic/Lymphatic: No symptoms reported Neurological/Psychological: No symptoms reported Physical Exam - Vital signs Vitals: Temp Pulse Resp BP Pulse Ox 98.1 F 65 20 97/55 L 99 10/09/17 08:30 10/09/17 08:30 10/09/17 08:30 10/09/17 08:30 10/09/17 08:30 - Notes Notes: PHYSICAL EXAMINATION: GENERAL: Uncomfortable, moaning, but in no acute distress. HEAD: Atraumatic, normocephalic. EYES: Pupils equal round and reactive to light, extraocular movements intact, sclera anicteric, conjunctiva are normal. NECK: Normal range of motion, supple without lymphadenopathy LUNGS: CTAB and equal. No wheezes rales or rhonchi. HEART: Regular rate and rhythm without murmurs ABDOMEN: Soft, no tenderness. No guarding, no rebound BACK: no vertebral tenderness, normal ROM GI/: no CVA tenderness EXTREMITIES: Exquisitely tender to palpation of bilateral lower extremities and upper extremities to extremely light touch, normal capillary refill and pulses distally, normal range of motion, no pitting edema. No cyanosis. NEUROLOGICAL: Cranial nerves grossly intact. Normal sensory/motor exams. PSYCH: Normal mood, normal affect. SKIN: Warm, Dry, normal turgor, no rashes or lesions noted Course - Re-evaluation Re-evalutation: 10/09/17 12:28 absolute reticulocyte count is just barely elevated at 0.123, hemoglobin stable at 8.2, patient continues to ask for pain medication. I did consult with Dr. Parker, patient's supervisor electric who states that she can be discharged with these lab values and that she has plenty of pain medication to take at home. States that she can follow-up tomorrow in the office at 9 AM with her and is happy that we fluid resuscitated her with 2 L of IV fluids here. - Vital Signs Vital signs: Temp Pulse Resp BP Pulse Ox 98.1 F 65 20 97/55 L 99 10/09/17 08:31 10/09/17 08:31 10/09/17 08:31 10/09/17 08:31 10/09/17 08:31 - Laboratory Result Diagrams: 10/09/17 09:51 10/09/17 09:51 Laboratory results interpreted by me: 10/09/17 10/09/17 09:51 09:51 RBC 2.27 L Hgb 8.2 L Hct 23.8 L MCV 105 H D MCH 36.0 H RDW 25.7 H Retic Count (auto) 5.42 H Absolute Retic 0.123 H Chloride 108 H Total Bilirubin 2.4 H Direct Bilirubin 0.7 H AST 57 H ALT 63 H Alkaline Phosphatase 141 H Discharge - Discharge Clinical Impression: Bilateral leg pain, Bilateral arm pain Sickle cell anemia Qualifiers: Sickle-cell associated disorders: without crisis Qualified Code(s): D57.1 - Sickle-cell disease without crisis Condition: Stable Disposition: HOME, SELF-CARE Additional Instructions: Dr. Parker would like for you to call the office at 9 AM tomorrow morning to see her. Please take the pain medication she has prescribed for you. Return immediately for any new or worsening symptoms. Follow up with primary care provider, call tomorrow to make followup appointment. Referrals: HOMA BARRAZA MD [Primary Care Provider] - Follow up as needed
== END 2017-10-09 13:09 | disposition home or self-care (01) ==
LOC: ER 08:26
DX: D57.1 Sickle-cell disease without crisis (principal); M79.604 Pain in right leg; M79.605 Pain in left leg; M79.601 Pain in right arm; M79.602 Pain in left arm; R07.9 Chest pain, unspecified; Z79.891 Long term (current) use of opiate analgesic; Z88.1 Allergy status to other antibiotic agents
CPT/HCPCS: 36591; 96376; 99284; 96361; 96374; 96375; 36415; 85025; 85045; 80053; 71046; J3010; J1885; J1170; J7030

== ENCOUNTER 2017-12-03 18:39 | Emergency (ER) | payer MEDICAID ==
--- NOTE | 2017-12-03 19:01 | ER Document Report ---
ED Medical Screen (RME) - General Chief Complaint: Sickle Cell Crisis Stated Complaint: VOMITING, CHEST PAIN Time Seen by Provider: 12/03/17 19:01 Notes: 47-year-old female, history of sickle cell crisis, followed by Dr. Parekr here to the emergency department complaining of diffuse body pain, chest pain, shortness of breath. Thinks she may have a UTI. Feeling very weak. Denies any fevers. Cannot seem to get her pain under control. Has been doing okay recently with her sickle cell disease. Taking all of her medications as prescribed. I have greeted and performed a rapid initial assessment of this patient. A comprehensive ED assessment and evaluation of the patient, analysis of test results and completion of the medical decision making process will be conducted by additional ED providers. TRAVEL OUTSIDE OF THE [place] IN LAST 30 DAYS: No - Related Data Allergies/Adverse Reactions: doxycycline [Doxycycline] Allergy (Severe, Verified 12/03/17 18:53) Past Medical History - Social History Chew tobacco use (# tins/day): No Frequency of alcohol use: None Drug Abuse: None - Past Medical History Cardiac Medical History: Reports: Hx Heart Murmur Denies: Hx Atrial Fibrillation, Hx Congestive Heart Failure, Hx Coronary Artery Disease, Hx Heart Attack, Hx Hypercholesterolemia, Hx Hypertension, Hx Peripheral Vascular Disease Pulmonary Medical History: Denies: Hx Tuberculosis Neurological Medical History: Denies: Hx Seizures Renal/ Medical History: Reports: Hx Ovarian Cysts. 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 Denies: Hx HIV Past Surgical History: Reports: Hx Appendectomy, Hx Section, Hx Cholecystectomy, Hx Orthopedic Surgery - R knee, Hx Tonsillectomy. Denies: Hx Bowel Surgery, Hx Coronary Artery Bypass Graft, Hx Gastric Bypass Surgery, Hx Herniorrhaphy, Hx Mastectomy, Hx Pacemaker, Hx Tubal Ligation - Immunizations Immunizations up to date: Yes Hx Diphtheria, Pertussis, Tetanus Vaccination: Yes History of Influenza Vaccine for 03/2017 - 08/2017 Season: Refused Review of Systems - Review of Systems Constitutional: Malaise, Weakness. denies: Fever EENT: denies: Double vision, Throat pain, Mouth pain Cardiovascular: Chest pain, Heart racing. denies: Syncope, Dizziness Respiratory: Short of breath. denies: Cough, Wheezing Gastrointestinal: Nausea, Vomiting. denies: Abdominal pain Genitourinary: Burning, Dysuria. denies: Discharge, Flank pain, Hematuria Musculoskeletal: Back pain, Joint pain, Muscle pain Hematologic/Lymphatic: Other - Sickle cell disease Physical Exam - Vital signs Vitals: Temp Pulse Resp BP Pulse Ox 99.5 F 71 26 H 104/61 97 12/03/17 18:46 12/03/17 18:46 12/03/17 18:46 12/03/17 18:46 12/03/17 18:46 Interpretation: Normal - General General appearance: Appears well, Alert - Respiratory Respiratory status: No respiratory distress Chest status: Nontender Breath sounds: Normal Chest palpation: Normal - Cardiovascular Rhythm: Regular Heart sounds: Normal auscultation Murmur: No - Extremities General upper extremity: Normal inspection, Nontender, Normal color, Normal ROM , Normal temperature General lower extremity: Normal inspection, Nontender, Normal color, Normal ROM , Normal temperature, Normal weight bearing. No: Kin's sign Course - Vital Signs Vital signs: Temp Pulse Resp BP Pulse Ox 99.5 F 71 26 H 104/61 97 12/03/17 18:46 12/03/17 18:46 12/03/17 18:46 12/03/17 18:46 12/03/17 18:46 Doctor's Discharge - Discharge Referrals: HOMA BARRAZA MD [Primary Care Provider] - Follow up as needed
[2017-12-03] MEDS ORDERED: PROCHLORPERAZINE EDISYLATE INJ 10 MG/2 ML VIAL IV ONE (19:05)
[2017-12-03] MEDS ORDERED: NORMAL SALINE 1000 ML 1,000 ML IV ONE (19:05)
[2017-12-03] MEDS ORDERED: HYDROMORPHONE HCL INJ/PF 2 MG/ML AMPULE IV ONE (19:05)
[2017-12-03] MEDS ORDERED: METOCLOPRAMIDE HCL INJ/PF 10 MG/2 ML SDV IV ONE (19:13)
--- NOTE | 2017-12-03 19:35 | RADIOLOGY REPORT (SQ) ---
EXAM DESCRIPTION: CHEST SINGLE VIEW COMPLETED DATE/TIME: 12/03/2017 7:19 pm REASON FOR STUDY: sob COMPARISON: 10/09/2017 EXAM PARAMETERS: NUMBER OF VIEWS: One view. TECHNIQUE: Single frontal radiographic view of the chest acquired. RADIATION DOSE: NA LIMITATIONS: None. FINDINGS: LUNGS AND PLEURA: Stable pulmonary exam. No new focal consolidation, mass, pneumothorax, or pleural effusion. MEDIASTINUM AND HILAR STRUCTURES: No masses. Contour normal. HEART AND VASCULAR STRUCTURES: Heart normal in size. Normal vasculature. BONES: No acute findings. HARDWARE: Stable position and appearance of a left-sided Port-A-Cath. OTHER: No other significant finding. IMPRESSION: NO ACUTE RADIOGRAPHIC FINDING IN THE CHEST. TECHNICAL DOCUMENTATION: JOB ID: [id number] [employer]- All Rights Reserved Reading location - IP/workstation name: [email or web address]
[2017-12-03] MEDS: HYDROMORPHONE HCL INJ/PF 2 MG/ML AMPULE IV PRN ×3 (19:39→23:05)
[2017-12-03 20:11] LABS: HEMATOCRIT 26.3 % (36.0-47.0); HEMOGLOBIN 9.1 g/dL (12.0-15.5); MEAN CORPUSCULAR HEMOGLOBIN 40.5 pg (27.0-33.4); MEAN CORPUSCULAR HGB CONC 34.8 g/dL (32.0-36.0); MEAN CORPUSCULAR VOLUME 117 fl (80-97); PLATELET COUNT 389 10^3/uL (150-450); RED BLOOD COUNT 2.26 10^6/uL (3.72-5.28); RED CELL DISTRIBUTION WIDTH 25.2 % (11.5-14.0)
[2017-12-03 20:13] LABS: APPEARANCE,URINE SLIGHTLY-CLOUDY; BILIRUBIN,URINE NEGATIVE (NEGATIVE); COLOR,URINE YELLOW; GLUCOSE, URINE NEGATIVE (NEGATIVE); KETONES,URINE NEGATIVE (NEGATIVE); LEUKOCYTE ESTERASE,URINE LARGE (NEGATIVE); NITRITE,URINE POSITIVE (NEGATIVE); PROTEIN,URINE NEGATIVE (NEGATIVE)
[2017-12-03 20:18] LABS: ABSOLUTE RETICS # 0.202 10^6/uL (0.028-0.122); RETICULOCYTE COUNT (AUTO) 9.03 % (0.66-2.85)
[2017-12-03 20:21] LABS: ALANINE AMINOTRANSFERASE 65 U/L (9-52); ALBUMIN 4.8 g/dL (3.5-5.0); ALKALINE PHOSPHATASE 156 U/L (38-126); ANION GAP 13 (5-19); ASPARTATE AMINO TRANSFERASE 60 U/L (14-36); BILIRUBIN,DIRECT 0.8 mg/dL (0.0-0.4); BLOOD UREA NITROGEN 6 mg/dL (7-20); CARBON DIOXIDE 21 mmol/L (22-30); CHLORIDE 113 mmol/L (98-107); GLUCOSE 97 mg/dL (75-110); POTASSIUM 3.7 mmol/L (3.6-5.0); SODIUM 146.7 mmol/L (137-145)
[2017-12-03] MEDS ORDERED: CEFTRIAXONE INJ 1000 MG VIAL IV ONE (20:35)
[2017-12-03 20:36] LABS: BASOPHILS % (MANUAL) 0 % (0-2); EOSINOPHILS % (MANUAL) 2 % (0-6); LYMPHOCYTES % (MANUAL) 42 % (13-45); MONOCYTES % (MANUAL) 9 % (3-13); NUCLEATED RED BLOOD CELLS 31 /100 WBC (0); SEGMENTED NEUTROPHILS % (MAN) 47 % (42-78); TOTAL CELLS COUNTED 100
--- NOTE | 2017-12-03 20:37 | ER Document Report ---
ED General - General Chief Complaint: Sickle Cell Crisis Stated Complaint: VOMITING, CHEST PAIN Time Seen by Provider: 12/03/17 19:01 Notes: Patient is a 47-year-old female with a past medical history of sickle cell anemia type SC who presents with dysuria, body pain including pain in her extremities, chest, abdomen and back the past 2-3 days. Patient states that her symptoms started gradually and have gotten progressively worse since that time. She describes the pain as an aching, cramping pain to the affected areas. She has taken her home oxycodone with mild improvement of the pain. Nothing worsens the pain. She states that this feels very similar to when she has had sickle cell pain crises in the past. She has not seen her general doctor regarding today's concerns. She denies any associated fever, headache, neck pain, confusion, although she notes she has had some nausea and vomiting which she often gets when she is in severe pain. She is also out of her chronic pain medications at this time. TRAVEL OUTSIDE OF THE [place] IN LAST 30 DAYS: No - Related Data Allergies/Adverse Reactions: doxycycline [Doxycycline] Allergy (Severe, Verified 12/03/17 18:53) Past Medical History - General Information source: Patient - Social History Smoking Status: Never Smoker Chew tobacco use (# tins/day): No Frequency of alcohol use: None Drug Abuse: None Lives with: Alone Family History: Reviewed & Not Pertinent Patient has suicidal ideation: No Patient has homicidal ideation: No - Past Medical History Cardiac Medical History: Reports: Hx Heart Murmur Denies: Hx Atrial Fibrillation, Hx Congestive Heart Failure, Hx Coronary Artery Disease, Hx Heart Attack, Hx Hypercholesterolemia, Hx Hypertension, Hx Peripheral Vascular Disease Pulmonary Medical History: Denies: Hx Tuberculosis Neurological Medical History: Denies: Hx Seizures Renal/ Medical History: Reports: Hx Ovarian Cysts. 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 Denies: Hx HIV Past Surgical History: Reports: Hx Appendectomy, Hx Section, Hx Cholecystectomy, Hx Orthopedic Surgery - R knee, Hx Tonsillectomy. Denies: Hx Bowel Surgery, Hx Coronary Artery Bypass Graft, Hx Gastric Bypass Surgery, Hx Herniorrhaphy, Hx Mastectomy, Hx Pacemaker, Hx Tubal Ligation - Immunizations Immunizations up to date: Yes Hx Diphtheria, Pertussis, Tetanus Vaccination: Yes Hx Pneumococcal Vaccination: 03/20/14 Review of Systems - Review of Systems Notes: Constitutional: Negative for fever. HENT: Negative for sore throat. Eyes: Negative for visual changes. Cardiovascular: Negative for chest pain. Respiratory: Negative for shortness of breath. Gastrointestinal: Negative for abdominal pain, positive for nausea and vomiting Genitourinary: Positive for dysuria. Musculoskeletal: Positive for diffuse musculoskeletal pain Skin: Negative for rash. Neurological: Negative for headaches, weakness or numbness. 10 point ROS negative except as marked above and in HPI. Physical Exam - Vital signs Vitals: Temp Pulse Resp BP Pulse Ox 99.5 F 71 26 H 104/61 97 12/03/17 18:46 12/03/17 18:46 12/03/17 18:46 12/03/17 18:46 12/03/17 18:46 Interpretation: Tachypneic Notes: PHYSICAL EXAMINATION: GENERAL: Appears to be moderately uncomfortable but in no acute distress HEAD: Atraumatic, normocephalic. EYES: Pupils equal round and reactive to light, extraocular movements intact, sclera anicteric, conjunctiva are normal. ENT: nares patent, oropharynx clear without exudates. Moderately dry mucous membranes. NECK: Normal range of motion, supple without lymphadenopathy LUNGS: Breath sounds clear to auscultation bilaterally and equal. No wheezes rales or rhonchi. HEART: Regular rate and rhythm without murmurs ABDOMEN: Soft, nontender, normoactive bowel sounds. No guarding, no rebound. No masses appreciated. EXTREMITIES: Normal range of motion, no pitting or edema. No cyanosis. NEUROLOGICAL: No focal neurological deficits. Moves all extremities spontaneously and on command. PSYCH: Normal mood, normal affect. SKIN: Warm, Dry, normal turgor, no rashes or lesions noted. Course - Re-evaluation Re-evalutation: 12/03/17 20:36 The patient presents with symptoms consistent with her typical pain crisis including diffuse bilateral upper and lower extremity pain as well as abdominal and back pain. She states this is identical to prior pain crises that she has had in the past. She does however also note associated dysuria. Her urinalysis is consistent with acute cystitis. A culture has been sent and she has been given 1 g of ceftriaxone here in the emergency department. She is also had associated nausea and vomiting. Her nausea and vomiting has been controlled with a single dose of metoclopramide and she has since been able to tolerate oral intake. IV fluids have also been administered. Her chest x-rays without any evidence of acute chest syndrome. Laboratories do demonstrate ongoing hemolysis although appropriate reticulocyte count. Will continue to monitor and assess for appropriate pain control. 12/03/17 21:46 Patient's hemoglobin is improved from her prior assessment in September. Although her bilirubin level is slightly higher she does not appear to having an aplastic crisis given her hemoglobin level as well as her reticulocyte count. Patient's pain is much improved at this time point. She continues to tolerate oral intake without difficulty. She will be discharged on cephalexin. I have recommended very close up outpatient follow-up with her outfitter cabin. At this time will discharge with return precautions and follow-up recommendations. Verbal discharge instructions given a the bedside and opportunity for questions given. Medication warnings reviewed. Patient is in agreement with this plan and has verbalized understanding of return precautions and the need for primary care follow-up in the next 24-72 hours. - Vital Signs Vital signs: Temp Pulse Resp BP Pulse Ox 98.2 F 70 16 102/67 97 12/03/17 23:11 12/03/17 23:11 12/03/17 23:11 12/03/17 23:11 12/03/17 23:11 - Laboratory Result Diagrams: 12/03/17 19:45 12/03/17 19:45 Laboratory results interpreted by me: 12/03/17 12/03/17 12/03/17 19:23 19:45 19:45 RBC 2.26 L Hgb 9.1 L Hct 26.3 L MCV 117 H MCH 40.5 H RDW 25.2 H Abs Neuts (Manual) 0.0 L Abs Lymphs (Manual) 0.0 L Abs Monocytes (Manual) 0.0 L Retic Count (auto) 9.03 H Absolute Retic 0.202 H Sodium Chloride Carbon Dioxide BUN POC Glucose 113 H Total Bilirubin Direct Bilirubin AST ALT Alkaline Phosphatase Urine Blood Urine Nitrite Urine Urobilinogen Ur Leukocyte Esterase 12/03/17 12/03/17 19:45 19:45 RBC Hgb Hct MCV MCH RDW Abs Neuts (Manual) Abs Lymphs (Manual) Abs Monocytes (Manual) Retic Count (auto) Absolute Retic Sodium 146.7 H Chloride 113 H Carbon Dioxide 21 L BUN 6 L POC Glucose Total Bilirubin 5.0 H Direct Bilirubin 0.8 H AST 60 H ALT 65 H Alkaline Phosphatase 156 H Urine Blood SMALL H Urine Nitrite POSITIVE H Urine Urobilinogen 2.0 H Ur Leukocyte Esterase LARGE H - Diagnostic Test Radiology reviewed: Image reviewed, Reports reviewed Radiology results interpreted by me: 12/03/17 21:47 Chest x-ray: No acute infiltrate or pneumothorax Discharge - Discharge Clinical Impression: Sickle cell pain crisis, Cystitis Nausea and vomiting Qualifiers: Vomiting type: unspecified Vomiting Intractability: non-intractable Qualified Code(s): R11.2 - Nausea with vomiting, unspecified Condition: Stable Disposition: HOME, SELF-CARE Additional Instructions: Your urine shows findings consistent with a urinary tract infection. Please take all the antibiotics as directed even if your symptoms have improved. Please follow-up with your primary care physician as needed. Return to emergency room if you develop fever >101F, persistent vomiting, become lethargic , have severe pain in your sides, or any other symptoms that are concerning to you. You were seen today for sickle cell pain crisis. Please follow-up with your outfitter cabin. Returning to the ED if you have worsening pain, fever greater than 100.4, shortness of breath, persistent vomiting, or any other symptoms that are concerning to you. Prescriptions: Cephalexin Monohydrate [Keflex 500 mg Capsule] 500 mg PO Q6H 5 Days capsule Referrals: HOMA BARRAZA MD [Primary Care Provider] - Follow up in 3-5 days
[2017-12-03 20:47] LABS: ANISOCYTOSIS 3+; POIKILOCYTOSIS 2+; POLYCHROMASIA SLIGHT; SICKLE RED CELLS 1+; TARGET CELLS 1+
[2017-12-03 20:48] LABS: HYPOCHROMASIA 1+
[2017-12-03 20:49] LABS: PLATELET COMMENT ADEQUATE; PLATELET LARGE PRESENT
[2017-12-03 20:50] LABS: WHITE BLOOD COUNT 5.8 10^3/uL (4.0-10.5)
[2017-12-03 20:52] LABS: HOWELL-JOLLY BODIES PRESENT
[2017-12-03 20:53] LABS: OVALOCYTES SLIGHT
[2017-12-03 23:12] VITALS: BP 102/67
--- NOTE | 2017-12-04 00:12 | EKG REPORT ---
SEVERITY:- ABNORMAL ECG - SINUS RHYTHM PROBABLE POSTERIOR INFARCT : Confirmed by: Killian Moraes MD 04-Dec-2017 00:11:50
== END 2017-12-03 23:30 | disposition home or self-care (01) ==
LOC: ER 18:39
DX: D57.219 Sickle-cell/Hb-C disease with crisis, unspecified (principal); N30.90 Cystitis, unspecified without hematuria; R11.2 Nausea with vomiting, unspecified; Z88.1 Allergy status to other antibiotic agents; R06.82 Tachypnea, not elsewhere classified
CPT/HCPCS: 93005; 36591; 96376; 99284; 96375; 96365; 36415; 87086; 82962; 85025; 87088; 85045; 80053; 81001; 87186; 71045; 93010; J2765; J1170; J0696

== ENCOUNTER 2018-02-21 19:56 | Inpatient (IN) | payer MEDICAID ==
[2018-02-21 22:11] LABS: ABSOLUTE RETICS # 0.067 10^6/uL (0.028-0.122); HEMATOCRIT 26.9 % (36.0-47.0); HEMOGLOBIN 9.5 g/dL (12.0-15.5); MEAN CORPUSCULAR HEMOGLOBIN 42.6 pg (27.0-33.4); MEAN CORPUSCULAR HGB CONC 35.1 g/dL (32.0-36.0); MEAN CORPUSCULAR VOLUME 121 fl (80-97); PLATELET COUNT 241 10^3/uL (150-450); RED BLOOD COUNT 2.22 10^6/uL (3.72-5.28); RED CELL DISTRIBUTION WIDTH 15.2 % (11.5-14.0); RETICULOCYTE COUNT (AUTO) 3.03 % (0.66-2.85); WHITE BLOOD COUNT 6.3 10^3/uL (4.0-10.5)
[2018-02-21 22:20] LABS: APPEARANCE,URINE SLIGHTLY-CLOUDY; BILIRUBIN,URINE NEGATIVE (NEGATIVE); COLOR,URINE AMBER; GLUCOSE, URINE NEGATIVE (NEGATIVE); KETONES,URINE NEGATIVE (NEGATIVE); LEUKOCYTE ESTERASE,URINE SMALL (NEGATIVE); NITRITE,URINE NEGATIVE (NEGATIVE); PROTEIN,URINE NEGATIVE (NEGATIVE)
[2018-02-21 22:28] LABS: ALANINE AMINOTRANSFERASE 71 U/L (9-52); ALBUMIN 4.7 g/dL (3.5-5.0); ALKALINE PHOSPHATASE 149 U/L (38-126); ANION GAP 12 (5-19); ASPARTATE AMINO TRANSFERASE 89 U/L (14-36); BILIRUBIN,DIRECT 1.1 mg/dL (0.0-0.4); BILIRUBIN,TOTAL 6.6 mg/dL (0.2-1.3); BLOOD UREA NITROGEN 8 mg/dL (7-20); CARBON DIOXIDE 20 mmol/L (22-30); CHLORIDE 111 mmol/L (98-107); GLUCOSE 108 mg/dL (75-110); POTASSIUM 3.5 mmol/L (3.6-5.0); SODIUM 143.1 mmol/L (137-145); TOTAL PROTEIN 8.4 g/dL (6.3-8.2)
[2018-02-21] MEDS: NORMAL SALINE 1000 ML 1,000 ML IV PRN (23:06)
[2018-02-21] MEDS: CIPROFLOXACIN 400 MG/D5W RTU 400 MG/200 ML RTUPB IV SCH (23:09)
[2018-02-21] MEDS: OXYCODONE HCL IR 5 MG TABLET PO PRN (23:44)
[2018-02-22] MEDS: HYDROMORPHONE HCL INJ/PF 2 MG/ML AMPULE IV PRN ×6 (03:14→23:47)
--- NOTE | 2018-02-22 04:01 | RADIOLOGY REPORT (SQ) ---
EXAM DESCRIPTION: US ABDOMEN COMPLETED DATE/TME: 02/22/2018 00:00 CLINICAL HISTORY: abnormal liver function tests COMPARISON: None. TECHNIQUE: Real-time sonographic images of the abdomen were obtained using a curved multihertz transducer. FINDINGS: The visualized portions of the pancreas are unremarkable. The visualized portions of the aorta and IVC are unremarkable. The liver has normal contour and heterogeneous echogenicity. The common bile duct measures 0.2 cm. Prior cholecystectomy. The right kidney measures 8.5 cm in length. The left kidney measures 10.0 cm in length. No solid renal mass, shadowing renal calculi, or hydronephrosis. 2.0 cm simple cyst involving the superior pole of the right kidney. Prior splenectomy. IMPRESSION: 1. Mildly heterogeneous echogenicity of the liver is nonspecific and can be seen with acute or chronic liver disease. 2. Prior cholecystectomy and splenomegaly.
[2018-02-22] MEDS: OXYCODONE HCL SR 40 MG TABLET PO SCH ×3 (05:51→21:39)
[2018-02-22] MEDS: GABAPENTIN 300 MG CAPSULE PO SCH ×3 (05:52→21:39)
[2018-02-22] MEDS: OXYCODONE HCL IR 5 MG TABLET PO PRN ×2 (08:19→15:38)
--- NOTE | 2018-02-22 08:23 | RADIOLOGY REPORT (SQ) ---
EXAM DESCRIPTION: CHEST SINGLE VIEW COMPLETED DATE/TIME: 02/21/2018 9:28 pm REASON FOR STUDY: SOB COMPARISON: 12/03/2017 EXAM PARAMETERS: NUMBER OF VIEWS: One view. TECHNIQUE: Single frontal radiographic view of the chest acquired. RADIATION DOSE: NA LIMITATIONS: None. FINDINGS: LUNGS AND PLEURA: Stable scarring in the left base. No effusions. MEDIASTINUM AND HILAR STRUCTURES: No masses. Contour normal. HEART AND VASCULAR STRUCTURES: Heart normal in size. Normal vasculature. BONES: No acute findings. HARDWARE: None in the chest. OTHER: Unchanged position of left-sided port. IMPRESSION: NO ACUTE RADIOGRAPHIC FINDING IN THE CHEST. TECHNICAL DOCUMENTATION: JOB ID: [id number] [employer]- All Rights Reserved Reading location - IP/workstation name: [email or web address]
--- NOTE | 2018-02-22 08:24 | RADIOLOGY REPORT (SQ) ---
EXAM DESCRIPTION: CHEST SINGLE VIEW COMPLETED DATE/TIME: 02/22/2018 8:00 am REASON FOR STUDY: SOB COMPARISON: 02/21/2018. FINDINGS: Single-view chest, AP timed approximately 0741 hours. No developing opacities. No pneumothorax. Stable cardiomediastinal silhouette. Left port with tip to the superior vena cava. IMPRESSION: No acute cardiopulmonary disease. TECHNICAL DOCUMENTATION: JOB ID: [id number] Reading location - IP/workstation name: [email or web address]
[2018-02-22] MEDS: MULTIVITAMIN TABLET PO SCH (09:34)
[2018-02-22] MEDS: HYDROXYUREA 500 MG CAPSULE PO SCH ×2 (09:34→21:45)
[2018-02-22] MEDS: FOLIC ACID 1 MG TABLET PO SCH (09:34)
[2018-02-22] MEDS: CIPROFLOXACIN 400 MG/D5W RTU 400 MG/200 ML RTUPB IV SCH ×2 (09:34→21:37)
[2018-02-22] MEDS: NORMAL SALINE 1000 ML 1,000 ML IV PRN (10:56)
--- NOTE | 2018-02-22 14:36 | PDOC H&P ---
History of Present Illness Admission Date/PCP: 02/21/18 19:56 HOMA BARRAZA MD History of Present Illness: WILLIE ALAN is a 48 year old female ,she has sickle cell disease,, SS type, she came to the office for evaluation of generalized malaise, fever, generalized body pains, urinary symptoms, she stated that she does not feel well. She says she has been doing well for the last couple of weeks until the last few days when she felt unwell she thought she had a UTI and that is the trigger for the bone pain crisis she is experiencing. She was admitted directly from the office to the hospital, the blood work that was done suggest hyperbilirubinemia more in direct bilirubin suggesting hemolysis, the LFT pattern suggest obstructive jaundice. Ultrasound of the liver was done, the common bile duct is not dilated. The urinalysis is grossly abnormal the hemogram showed hemoglobin of 9 which is pretty good for this patient. 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 Denies: HIV Past Surgical History Past Surgical History: Reports: Appendectomy, Section, Cholecystectomy , Orthopedic Surgery - R knee, Tonsillectomy Social History Smoking Status: Never Smoker Frequency of Alcohol Use: None Hx Recreational Drug Use: No Drugs: None Hx Prescription Drug Abuse: No Family History Family History: Reviewed & Not Pertinent Parental Family History Reviewed: Yes Children Family History Reviewed: Yes Sibling(s) Family History Reviewed.: Yes Medication/Allergy Home Medications: Epoetin Federico [Procrit Inj 40,000 Unit/1 ml Vial (Oncology)] 40,000 unit SUBCUT FR@1000 08/04/17 Epoetin Federico [Procrit] 20,000 unit SUBCUT FR@1000 08/04/17 Folic Acid [Folvite 1 mg Tablet] 1 mg PO DAILY 08/04/17 Gabapentin [Neurontin 300 mg Capsule] 300 mg PO Q8 08/04/17 Hydroxyurea [Hydrea 500 mg Capsule] 500 mg PO BID 08/04/17 Multivitamin [Tab-A-Yosvany] 1 tab PO DAILY 08/04/17 Oxycodone HCl 30 mg PO Q6HP PRN 08/04/17 Oxycodone HCl [Oxycontin Sr 40 mg Tablet] 40 mg PO Q8 08/04/17 Rivaroxaban [Xarelto] 20 mg PO QHS 08/04/17 Allergies/Adverse Reactions: doxycycline [Doxycycline] Allergy (Severe, Verified 12/03/17 18:53) Review of Systems Constitutional: PRESENT: anorexia, fever(s) Eyes: ABSENT: visual disturbances Ears: ABSENT: hearing changes Cardiovascular: ABSENT: chest pain, dyspnea on exertion, edema, orthropnea, palpitations Respiratory: ABSENT: cough, hemoptysis Gastrointestinal: ABSENT: abdominal pain, constipation, diarrhea, hematemesis, hematochezia, nausea, vomiting Genitourinary: PRESENT: difficulty urinating, dysuria Musculoskeletal: PRESENT: back pain, joint swelling Integumentary: ABSENT: rash, wounds Neurological: ABSENT: abnormal gait, abnormal speech, confusion, dizziness, focal weakness, syncope Psychiatric: ABSENT: anxiety, depression, homidical ideation, suicidal ideation Endocrine: ABSENT: cold intolerance, heat intolerance, menstrual abnormalities, polydipsia, polyuria Hematologic/Lymphatic: ABSENT: easy bleeding, easy bruising, lymphadenopathy Physical Exam Vital Signs: Temp Pulse Resp BP Pulse Ox 98.7 F 78 17 106/63 100 02/22/18 12:05 02/22/18 12:05 02/22/18 12:05 02/22/18 12:05 02/22/18 12:05 Intake & Output 02/21/18 02/22/18 02/23/18 06:59 06:59 06:59 Intake Total 1754 1200 Balance 1754 1200 Weight 55.4 kg General appearance: PRESENT: no acute distress Head exam: PRESENT: atraumatic, normocephalic Eye exam: PRESENT: PERRLA, scleral icterus Ear exam: PRESENT: normal external ear exam Mouth exam: PRESENT: moist, tongue midline Neck exam: PRESENT: full ROM Respiratory exam: PRESENT: clear to auscultation carolyn Cardiovascular exam: PRESENT: RRR, +S1, +S2 Vascular exam: PRESENT: normal capillary refill GI/Abdominal exam: PRESENT: normal bowel sounds, soft Rectal exam: PRESENT: deferred Neurological exam: PRESENT: alert, awake, oriented to person, oriented to place , oriented to time, oriented to situation, CN II-XII grossly intact Psychiatric exam: PRESENT: appropriate affect, normal mood Skin exam: PRESENT: dry, intact, warm Results Laboratory Results: 02/21/18 21:45 02/21/18 21:45 02/21/18 02/21/18 02/21/18 21:45 21:45 21:45 WBC 6.3 RBC 2.22 L Hgb 9.5 L Hct 26.9 L MCV 121 H MCH 42.6 H MCHC 35.1 RDW 15.2 H Plt Count 241 Retic Count (auto) 3.03 H Absolute Retic 0.067 Sodium 143.1 Potassium 3.5 L Chloride 111 H Carbon Dioxide 20 L Anion Gap 12 BUN 8 Creatinine 0.56 Est GFR ( Amer) > 60 Est GFR (Non-Af Amer) > 60 Glucose 108 Calcium 10.0 Total Bilirubin 6.6 H AST 89 H ALT 71 H Alkaline Phosphatase 149 H Total Protein 8.4 H Albumin 4.7 Urine Color HINA Urine Appearance SLIGHTLY-CLOUDY Urine pH 6.0 Ur Specific [place] 1.010 Urine Protein NEGATIVE Urine Glucose (UA) NEGATIVE Urine Ketones NEGATIVE Urine Blood SMALL H Urine Nitrite NEGATIVE Ur Leukocyte Esterase SMALL H Urine WBC (Auto) 24 Urine RBC (Auto) 1 Impressions: Abdomen Ultrasound 02/22/18 00:00 IMPRESSION: 1. Mildly heterogeneous echogenicity of the liver is nonspecific and can be seen with acute or chronic liver disease. 2. Prior cholecystectomy and splenomegaly. Chest X-Ray 02/22/18 00:00 IMPRESSION: No acute cardiopulmonary disease. Assessment & Plan - Diagnosis (1) Sickle-cell anemia with crisis Is this a current diagnosis for this admission?: Yes Plan: She has bone pain crisis with sickle cell anemia, start IV fluid hydration pain control with morphine (2) Hb-SS disease with vaso-occlusive crisis Is this a current diagnosis for this admission?: Yes (3) Urinary tract infection Qualifiers: Urinary tract infection type: site unspecified Hematuria presence: without hematuria Qualified Code(s): N39.0 - Urinary tract infection, site not specified Is this a current diagnosis for this admission?: Yes Plan: Start IV antibiotic empirically (4) Hyperbilirubinemia Is this a current diagnosis for this admission?: Yes Plan: the indirect bilirubin is elevated suggesting hemolysis
[2018-02-22] MEDS: RIVAROXABAN 10 MG TABLET PO SCH (16:43)
--- NOTE | 2018-02-22 16:56 | PDOC PROGRESS REPORT ---
Subjective Progress Note for:: 02/22/18 Subjective:: Patient was admitted yesterday for bone pain crisis, she was started on Dilaudid 1 mg IV every 4 as needed, she said the Dilaudid is not effective at this dose, the dose be increased to 2 mg Reason For Visit: SICKLE CELL BONE CRISIS, UTI Physical Exam Vital Signs: Temp Pulse Resp BP Pulse Ox 98.6 F 77 20 102/58 L 100 02/22/18 16:02 02/22/18 16:02 02/22/18 16:02 02/22/18 16:02 02/22/18 16:02 Intake & Output 02/21/18 02/22/18 02/23/18 06:59 06:59 06:59 Intake Total 1754 1200 Balance 1754 1200 Weight 55.4 kg General appearance: PRESENT: mild distress Eye exam: PRESENT: PERRLA Respiratory exam: PRESENT: clear to auscultation carolyn Cardiovascular exam: PRESENT: +S1, +S2 GI/Abdominal exam: PRESENT: soft Neurological exam: PRESENT: alert Results Laboratory Results: 02/21/18 21:45 02/21/18 21:45 02/21/18 02/21/18 02/21/18 21:45 21:45 21:45 WBC 6.3 RBC 2.22 L Hgb 9.5 L Hct 26.9 L MCV 121 H MCH 42.6 H MCHC 35.1 RDW 15.2 H Plt Count 241 Retic Count (auto) 3.03 H Absolute Retic 0.067 Sodium 143.1 Potassium 3.5 L Chloride 111 H Carbon Dioxide 20 L Anion Gap 12 BUN 8 Creatinine 0.56 Est GFR ( Amer) > 60 Est GFR (Non-Af Amer) > 60 Glucose 108 Calcium 10.0 Total Bilirubin 6.6 H AST 89 H ALT 71 H Alkaline Phosphatase 149 H Total Protein 8.4 H Albumin 4.7 Urine Color HINA Urine Appearance SLIGHTLY-CLOUDY Urine pH 6.0 Ur Specific [place] 1.010 Urine Protein NEGATIVE Urine Glucose (UA) NEGATIVE Urine Ketones NEGATIVE Urine Blood SMALL H Urine Nitrite NEGATIVE Ur Leukocyte Esterase SMALL H Urine WBC (Auto) 24 Urine RBC (Auto) 1 Impressions: Abdomen Ultrasound 02/22/18 00:00 IMPRESSION: 1. Mildly heterogeneous echogenicity of the liver is nonspecific and can be seen with acute or chronic liver disease. 2. Prior cholecystectomy and splenomegaly. Chest X-Ray 02/22/18 00:00 IMPRESSION: No acute cardiopulmonary disease. Assessment & Plan - Diagnosis (1) Sickle-cell anemia with crisis Is this a current diagnosis for this admission?: Yes (2) Hb-SS disease with vaso-occlusive crisis Is this a current diagnosis for this admission?: Yes (3) Urinary tract infection Qualifiers: Urinary tract infection type: site unspecified Hematuria presence: without hematuria Qualified Code(s): N39.0 - Urinary tract infection, site not specified Is this a current diagnosis for this admission?: Yes (4) Hyperbilirubinemia Is this a current diagnosis for this admission?: Yes - Plan Summary Plan Summary: Continue IV fluid therapy, antibiotic for UTI and other treatments
[2018-02-22] MEDS ORDERED: ONDANSETRON 4 MG TAB.RAPDIS PO PRN (17:27)
[2018-02-22] MEDS: ONDANSETRON HCL INJ/PF 4 MG/2 ML SDV IV PRN (21:40)
[2018-02-23] MEDS: ONDANSETRON HCL INJ/PF 4 MG/2 ML SDV IV PRN ×4 (08:10→20:04)
[2018-02-23] MEDS: HYDROMORPHONE HCL INJ/PF 2 MG/ML AMPULE IV PRN ×4 (08:10→20:05)
[2018-02-23] MEDS: GABAPENTIN 300 MG CAPSULE PO SCH ×3 (09:38→21:54)
[2018-02-23] MEDS: OXYCODONE HCL SR 40 MG TABLET PO SCH ×3 (09:38→21:54)
[2018-02-23] MEDS: FOLIC ACID 1 MG TABLET PO SCH (09:44)
[2018-02-23] MEDS: MULTIVITAMIN TABLET PO SCH (09:44)
[2018-02-23] MEDS: HYDROXYUREA 500 MG CAPSULE PO SCH ×2 (09:45→21:54)
[2018-02-23] MEDS: CIPROFLOXACIN 400 MG/D5W RTU 400 MG/200 ML RTUPB IV SCH ×2 (09:46→21:53)
[2018-02-23] MEDS: RIVAROXABAN 10 MG TABLET PO SCH (16:03)
[2018-02-23] MEDS: NORMAL SALINE 1000 ML 1,000 ML IV PRN (21:55)
--- NOTE | 2018-02-23 22:29 | PDOC PROGRESS REPORT ---
Subjective Progress Note for:: 02/23/18 Subjective:: She was seen by the bedside, she continues to complain of pain Reason For Visit: SICKLE CELL BONE CRISIS, UTI Physical Exam Vital Signs: Temp Pulse Resp BP Pulse Ox 98.7 F 84 14 95/56 L 100 02/23/18 19:22 02/23/18 19:22 02/23/18 19:22 02/23/18 19:22 02/23/18 19:22 Intake & Output 02/22/18 02/23/18 02/24/18 06:59 06:59 06:59 Intake Total 1754 3166 882 Output Total 700 Balance 1754 3166 182 Weight 55.4 kg 60.3 kg General appearance: PRESENT: mild distress Eye exam: PRESENT: PERRLA Respiratory exam: PRESENT: clear to auscultation carolyn Cardiovascular exam: PRESENT: +S1, +S2 GI/Abdominal exam: PRESENT: soft Neurological exam: PRESENT: alert Results Laboratory Results: 02/21/18 21:45 02/21/18 21:45 Impressions: Abdomen Ultrasound 02/22/18 00:00 IMPRESSION: 1. Mildly heterogeneous echogenicity of the liver is nonspecific and can be seen with acute or chronic liver disease. 2. Prior cholecystectomy and splenomegaly. Chest X-Ray 02/22/18 00:00 IMPRESSION: No acute cardiopulmonary disease. Assessment & Plan - Diagnosis (1) Sickle-cell anemia with crisis Is this a current diagnosis for this admission?: Yes (2) Hb-SS disease with vaso-occlusive crisis Is this a current diagnosis for this admission?: Yes (3) Urinary tract infection Qualifiers: Urinary tract infection type: site unspecified Hematuria presence: without hematuria Qualified Code(s): N39.0 - Urinary tract infection, site not specified Is this a current diagnosis for this admission?: Yes Plan: The urine culture is growing gram-negative rods patient already on IV antibiotic , specific pathogen is not known yet (4) Hyperbilirubinemia Is this a current diagnosis for this admission?: Yes
[2018-02-24 00:02] LABS: HEMATOCRIT 20.5 % (36.0-47.0); MEAN CORPUSCULAR HEMOGLOBIN 41.6 pg (27.0-33.4); MEAN CORPUSCULAR HGB CONC 34.5 g/dL (32.0-36.0); MEAN CORPUSCULAR VOLUME 121 fl (80-97); PLATELET COUNT 211 10^3/uL (150-450); RED CELL DISTRIBUTION WIDTH 15.1 % (11.5-14.0); WHITE BLOOD COUNT 7.6 10^3/uL (4.0-10.5)
[2018-02-24] MEDS: ONDANSETRON HCL INJ/PF 4 MG/2 ML SDV IV PRN ×6 (00:02→20:42)
[2018-02-24] MEDS: HYDROMORPHONE HCL INJ/PF 2 MG/ML AMPULE IV PRN ×6 (00:02→20:42)
[2018-02-24 00:13] LABS: ALANINE AMINOTRANSFERASE 63 U/L (9-52); ALBUMIN 3.8 g/dL (3.5-5.0); ALKALINE PHOSPHATASE 107 U/L (38-126); ANION GAP 7 (5-19); ASPARTATE AMINO TRANSFERASE 66 U/L (14-36); BILIRUBIN,DIRECT 0.2 mg/dL (0.0-0.4); BILIRUBIN,TOTAL 3.9 mg/dL (0.2-1.3); BLOOD UREA NITROGEN 11 mg/dL (7-20); CALCIUM 8.8 mg/dL (8.4-10.2); CARBON DIOXIDE 24 mmol/L (22-30); CHLORIDE 107 mmol/L (98-107); GLUCOSE 94 mg/dL (75-110); SODIUM 137.5 mmol/L (137-145); TOTAL PROTEIN 6.7 g/dL (6.3-8.2)
[2018-02-24 00:22] LABS: ABSOLUTE MONOCYTES # (MANUAL) 0.8 10^3/uL (0.1-1.4); ABSOLUTE NEUTROPHILS# (MANUAL) 2.4 10^3/uL (1.7-8.2); BASOPHILS % (MANUAL) 0 % (0-2); EOSINOPHILS % (MANUAL) 6 % (0-6); LYMPHOCYTES % (MANUAL) 51 % (13-45); MONOCYTES % (MANUAL) 10 % (3-13); SEGMENTED NEUTROPHILS % (MAN) 32 % (42-78); TOTAL CELLS COUNTED 100
[2018-02-24 00:24] LABS: ANISOCYTOSIS SLIGHT; HOWELL-JOLLY BODIES PRESENT; PLATELET COMMENT ADEQUATE; POIKILOCYTOSIS SLIGHT; POLYCHROMASIA SLIGHT; SICKLE RED CELLS SLIGHT; TARGET CELLS SLIGHT
[2018-02-24 00:27] LABS: HEMOGLOBIN 7.1 g/dL (12.0-15.5)
[2018-02-24] MEDS: GABAPENTIN 300 MG CAPSULE PO SCH ×3 (06:02→22:26)
[2018-02-24] MEDS: OXYCODONE HCL SR 40 MG TABLET PO SCH ×3 (06:02→22:26)
[2018-02-24 07:24] LABS: HEMATOCRIT 18.3 % (36.0-47.0); MEAN CORPUSCULAR HEMOGLOBIN 42.3 pg (27.0-33.4); MEAN CORPUSCULAR VOLUME 121 fl (80-97); PLATELET COUNT 192 10^3/uL (150-450); RED BLOOD COUNT 1.52 10^6/uL (3.72-5.28); RED CELL DISTRIBUTION WIDTH 14.9 % (11.5-14.0); WHITE BLOOD COUNT 6.8 10^3/uL (4.0-10.5)
[2018-02-24 07:28] LABS: ALANINE AMINOTRANSFERASE 54 U/L (9-52); ALBUMIN 3.4 g/dL (3.5-5.0); ALKALINE PHOSPHATASE 116 U/L (38-126); ANION GAP 8 (5-19); ASPARTATE AMINO TRANSFERASE 60 U/L (14-36); BILIRUBIN,DIRECT 0.5 mg/dL (0.0-0.4); BILIRUBIN,TOTAL 3.7 mg/dL (0.2-1.3); BLOOD UREA NITROGEN 11 mg/dL (7-20); CALCIUM 8.8 mg/dL (8.4-10.2); CARBON DIOXIDE 23 mmol/L (22-30); CHLORIDE 108 mmol/L (98-107); GLUCOSE 105 mg/dL (75-110)
[2018-02-24 08:05] LABS: ABSOLUTE LYMPHOCYTES# (MANUAL) 3.7 10^3/uL (0.5-4.7); ABSOLUTE MONOCYTES # (MANUAL) 0.2 10^3/uL (0.1-1.4); ABSOLUTE NEUTROPHILS# (MANUAL) 2.5 10^3/uL (1.7-8.2); BASOPHILS % (MANUAL) 1 % (0-2); EOSINOPHILS % (MANUAL) 4 % (0-6); LYMPHOCYTES % (MANUAL) 52 % (13-45); MONOCYTES % (MANUAL) 3 % (3-13); NUCLEATED RED BLOOD CELLS 2 /100 WBC (0); SEGMENTED NEUTROPHILS % (MAN) 37 % (42-78); TOTAL CELLS COUNTED 100
[2018-02-24 08:07] LABS: PLATELET GIANT PRESENT; PLATELET LARGE PRESENT
[2018-02-24 08:08] LABS: ANISOCYTOSIS 3+; POIKILOCYTOSIS 2+
[2018-02-24 08:09] LABS: PLATELET COMMENT ADEQUATE
[2018-02-24 08:11] LABS: OVALOCYTES 1+; POLYCHROMASIA SLIGHT; SICKLE RED CELLS SLIGHT
[2018-02-24 08:13] LABS: ACANTHOCYTES SLIGHT; SCHISTOCYTES SLIGHT
[2018-02-24 08:17] LABS: HEMOGLOBIN 6.4 g/dL (12.0-15.5)
[2018-02-24] MEDS: NORMAL SALINE 1000 ML 1,000 ML IV PRN ×2 (08:46→22:30)
[2018-02-24] MEDS ORDERED: EPOETIN ALFA INJ 40000 UNIT/1 ML (ONCOLOGY) SUBCUT SCH (10:00)
[2018-02-24] MEDS ORDERED: EPOETIN ALFA INJ 20,000 UNIT/1 ML VIAL (ONCOLOGY) SUBCUT SCH (10:00)
[2018-02-24] MEDS: FOLIC ACID 1 MG TABLET PO SCH (11:00)
[2018-02-24] MEDS: CIPROFLOXACIN 400 MG/D5W RTU 400 MG/200 ML RTUPB IV SCH ×2 (11:00→22:20)
[2018-02-24] MEDS: MULTIVITAMIN TABLET PO SCH (11:00)
[2018-02-24] MEDS ORDERED: DIPHENHYDRAMINE HCL 25 MG CAPSULE PO PRN (16:14)
[2018-02-24] MEDS: RIVAROXABAN 10 MG TABLET PO SCH (16:31)
[2018-02-24] MEDS: HYDROXYUREA 500 MG CAPSULE PO SCH ×2 (16:33→22:27)
[2018-02-24] MEDS ORDERED: OXYCODONE HCL SR 40 MG TABLET PO ONE (18:44)
--- NOTE | 2018-02-24 21:04 | PDOC PROGRESS REPORT ---
Subjective Progress Note for:: 02/24/18 Subjective:: Patient continues to have bone pains due to vaso-occlusive crisis of sickle cell disease Reason For Visit: SICKLE CELL BONE CRISIS, UTI Physical Exam Vital Signs: Temp Pulse Resp BP Pulse Ox 99.3 F 79 16 101/59 L 100 02/24/18 19:21 02/24/18 19:21 02/24/18 19:21 02/24/18 19:21 02/24/18 19:21 Intake & Output 02/23/18 02/24/18 02/25/18 06:59 06:59 06:59 Intake Total 3166 1790 2049 Output Total 700 Balance 3166 1090 2049 Weight 60.3 kg 62.9 kg General appearance: PRESENT: no acute distress Eye exam: PRESENT: PERRLA Respiratory exam: PRESENT: clear to auscultation carolyn Cardiovascular exam: PRESENT: +S1, +S2 GI/Abdominal exam: PRESENT: soft Neurological exam: PRESENT: alert Results Laboratory Results: 02/24/18 06:45 02/24/18 06:45 02/23/18 02/23/18 02/24/18 23:40 23:40 06:45 WBC 7.6 6.8 RBC 1.70 L 1.52 L Hgb 7.1 L D 6.4 L Hct 20.5 L 18.3 L MCV 121 H 121 H MCH 41.6 H 42.3 H MCHC 34.5 35.0 RDW 15.1 H 14.9 H Plt Count 211 192 Seg Neutrophils % Not Reportable Not Reportable Lymphocytes % Not Reportable Not Reportable Monocytes % Not Reportable Not Reportable Eosinophils % Not Reportable Not Reportable Basophils % Not Reportable Not Reportable Absolute Neutrophils Not Reportable Not Reportable Absolute Lymphocytes Not Reportable Not Reportable Absolute Monocytes Not Reportable Not Reportable Absolute Eosinophils Not Reportable Not Reportable Absolute Basophils Not Reportable Not Reportable Sodium 137.5 Potassium 4.0 Chloride 107 Carbon Dioxide 24 Anion Gap 7 BUN 11 Creatinine 0.81 Est GFR ( Amer) > 60 Est GFR (Non-Af Amer) > 60 Glucose 94 Calcium 8.8 Total Bilirubin 3.9 H AST 66 H ALT 63 H Alkaline Phosphatase 107 Total Protein 6.7 Albumin 3.8 Blood Type Antibody Screen 02/24/18 02/24/18 06:45 11:35 WBC RBC Hgb Hct MCV MCH MCHC RDW Plt Count Seg Neutrophils % Lymphocytes % Monocytes % Eosinophils % Basophils % Absolute Neutrophils Absolute Lymphocytes Absolute Monocytes Absolute Eosinophils Absolute Basophils Sodium 139.0 Potassium 4.0 Chloride 108 H Carbon Dioxide 23 Anion Gap 8 BUN 11 Creatinine 0.83 Est GFR ( Amer) > 60 Est GFR (Non-Af Amer) > 60 Glucose 105 Calcium 8.8 Total Bilirubin 3.7 H AST 60 H ALT 54 H Alkaline Phosphatase 116 Total Protein 6.0 L Albumin 3.4 L Blood Type O POSITIVE Antibody Screen NEGATIVE 02/21/18 21:45 Clean Catch Midstream Urine Culture - Final Escherichia Coli Impressions: Abdomen Ultrasound 02/22/18 00:00 IMPRESSION: 1. Mildly heterogeneous echogenicity of the liver is nonspecific and can be seen with acute or chronic liver disease. 2. Prior cholecystectomy and splenomegaly. Chest X-Ray 02/22/18 00:00 IMPRESSION: No acute cardiopulmonary disease. Assessment & Plan - Diagnosis (1) Sickle-cell anemia with crisis Is this a current diagnosis for this admission?: Yes (2) Hb-SS disease with vaso-occlusive crisis Is this a current diagnosis for this admission?: Yes (3) Urinary tract infection Qualifiers: Urinary tract infection type: site unspecified Hematuria presence: without hematuria Qualified Code(s): N39.0 - Urinary tract infection, site not specified Is this a current diagnosis for this admission?: Yes Plan: She has E. coli UTI sensitive to ciprofloxacin (4) Hyperbilirubinemia Is this a current diagnosis for this admission?: Yes
[2018-02-24 21:18] LABS: HEMATOCRIT 22.4 % (36.0-47.0); MEAN CORPUSCULAR HEMOGLOBIN 39.7 pg (27.0-33.4); MEAN CORPUSCULAR HGB CONC 35.6 g/dL (32.0-36.0); PLATELET COUNT 213 10^3/uL (150-450); RED BLOOD COUNT 2.01 10^6/uL (3.72-5.28); RED CELL DISTRIBUTION WIDTH 22.7 % (11.5-14.0); WHITE BLOOD COUNT 6.4 10^3/uL (4.0-10.5)
[2018-02-24 21:55] LABS: MEAN CORPUSCULAR VOLUME 112 fl (80-97)
[2018-02-25] MEDS: HYDROMORPHONE HCL INJ/PF 2 MG/ML AMPULE IV PRN ×6 (00:45→21:36)
[2018-02-25] MEDS: ONDANSETRON HCL INJ/PF 4 MG/2 ML SDV IV PRN ×6 (00:45→21:35)
[2018-02-25] MEDS: GABAPENTIN 300 MG CAPSULE PO SCH ×3 (05:02→21:35)
[2018-02-25] MEDS: OXYCODONE HCL SR 40 MG TABLET PO SCH ×3 (05:03→21:47)
[2018-02-25] MEDS: MULTIVITAMIN TABLET PO SCH (09:03)
[2018-02-25] MEDS: CIPROFLOXACIN 400 MG/D5W RTU 400 MG/200 ML RTUPB IV SCH ×2 (09:03→21:33)
[2018-02-25] MEDS: FOLIC ACID 1 MG TABLET PO SCH (09:04)
[2018-02-25] MEDS: NORMAL SALINE 1000 ML 1,000 ML IV PRN ×2 (09:18→21:44)
[2018-02-25] MEDS: HYDROXYUREA 500 MG CAPSULE PO SCH ×2 (12:34→21:33)
--- NOTE | 2018-02-25 15:29 | PDOC PROGRESS REPORT ---
Subjective Progress Note for:: 02/25/18 Subjective:: Patient seen by the bedside, complaint of pain and swelling of the left thumb. Reason For Visit: SICKLE CELL BONE CRISIS, UTI Physical Exam Vital Signs: Temp Pulse Resp BP Pulse Ox 98.9 F 79 18 99/57 L 98 02/25/18 07:21 02/25/18 07:21 02/25/18 07:21 02/25/18 07:21 02/25/18 07:21 Intake & Output 02/24/18 02/25/18 02/26/18 06:59 06:59 06:59 Intake Total 1790 3991 1200 Output Total 700 4000 Balance 1090 -9 1200 Weight 62.9 kg 64.3 kg General appearance: PRESENT: mild distress Eye exam: PRESENT: PERRLA Respiratory exam: PRESENT: clear to auscultation carolyn Cardiovascular exam: PRESENT: +S1, +S2 GI/Abdominal exam: PRESENT: soft Neurological exam: PRESENT: alert Results Laboratory Results: 02/24/18 20:40 02/24/18 06:45 02/24/18 02/24/18 11:35 20:40 WBC 6.4 RBC 2.01 L Hgb 8.0 L Hct 22.4 L MCV 112 H D MCH 39.7 H MCHC 35.6 RDW 22.7 H Plt Count 213 Blood Type O POSITIVE Antibody Screen NEGATIVE Impressions: Abdomen Ultrasound 02/22/18 00:00 IMPRESSION: 1. Mildly heterogeneous echogenicity of the liver is nonspecific and can be seen with acute or chronic liver disease. 2. Prior cholecystectomy and splenomegaly. Chest X-Ray 02/22/18 00:00 IMPRESSION: No acute cardiopulmonary disease. Assessment & Plan - Diagnosis (1) Sickle-cell anemia with crisis Is this a current diagnosis for this admission?: Yes (2) Hb-SS disease with vaso-occlusive crisis Is this a current diagnosis for this admission?: Yes (3) Urinary tract infection Qualifiers: Urinary tract infection type: site unspecified Hematuria presence: without hematuria Qualified Code(s): N39.0 - Urinary tract infection, site not specified Is this a current diagnosis for this admission?: Yes (4) Hyperbilirubinemia Is this a current diagnosis for this admission?: Yes (5) E. coli UTI (urinary tract infection) Is this a current diagnosis for this admission?: Yes Plan: Continue IV ciprofloxacin
[2018-02-25] MEDS: RIVAROXABAN 10 MG TABLET PO SCH (17:05)
[2018-02-25] MEDS: DIPHENHYDRAMINE HCL 50 MG/ML VIAL IV PRN (18:55)
[2018-02-26] MEDS: HYDROMORPHONE HCL INJ/PF 2 MG/ML AMPULE IV PRN ×6 (01:37→22:28)
[2018-02-26] MEDS: DIPHENHYDRAMINE HCL 50 MG/ML VIAL IV PRN ×3 (01:39→17:57)
[2018-02-26] MEDS: OXYCODONE HCL SR 40 MG TABLET PO SCH ×3 (05:29→22:32)
[2018-02-26] MEDS: GABAPENTIN 300 MG CAPSULE PO SCH ×3 (05:29→22:32)
[2018-02-26] MEDS: CIPROFLOXACIN 400 MG/D5W RTU 400 MG/200 ML RTUPB IV SCH ×2 (09:58→22:31)
[2018-02-26] MEDS: ONDANSETRON HCL INJ/PF 4 MG/2 ML SDV IV PRN ×4 (09:58→22:28)
[2018-02-26] MEDS: FOLIC ACID 1 MG TABLET PO SCH (09:59)
[2018-02-26] MEDS: HYDROXYUREA 500 MG CAPSULE PO SCH ×2 (09:59→22:33)
[2018-02-26] MEDS: MULTIVITAMIN TABLET PO SCH (09:59)
--- NOTE | 2018-02-26 14:26 | PDOC PROGRESS REPORT ---
Subjective Progress Note for:: 02/26/18 Subjective:: She was by the bedside,, she has swelling of the left hand , x-ray ordered Reason For Visit: SICKLE CELL BONE CRISIS, UTI Physical Exam Vital Signs: Temp Pulse Resp BP Pulse Ox 99.7 F 78 18 93/48 L 99 02/26/18 11:24 02/26/18 11:24 02/26/18 11:24 02/26/18 11:24 02/26/18 11:24 Intake & Output 02/25/18 02/26/18 02/27/18 06:59 06:59 06:59 Intake Total 3991 7144 Output Total 4000 68556 Balance -9 -8870 Weight 64.3 kg 65.1 kg General appearance: PRESENT: no acute distress Eye exam: PRESENT: PERRLA Respiratory exam: PRESENT: clear to auscultation carolyn Cardiovascular exam: PRESENT: +S1, +S2 GI/Abdominal exam: PRESENT: soft Neurological exam: PRESENT: alert, CN II-XII grossly intact Results Laboratory Results: 02/24/18 20:40 02/24/18 06:45 Impressions: Abdomen Ultrasound 02/22/18 00:00 IMPRESSION: 1. Mildly heterogeneous echogenicity of the liver is nonspecific and can be seen with acute or chronic liver disease. 2. Prior cholecystectomy and splenomegaly. Chest X-Ray 02/22/18 00:00 IMPRESSION: No acute cardiopulmonary disease. Assessment & Plan - Diagnosis (1) Sickle-cell anemia with crisis Is this a current diagnosis for this admission?: Yes (2) Hb-SS disease with vaso-occlusive crisis Is this a current diagnosis for this admission?: Yes (3) Urinary tract infection Qualifiers: Urinary tract infection type: site unspecified Hematuria presence: without hematuria Qualified Code(s): N39.0 - Urinary tract infection, site not specified Is this a current diagnosis for this admission?: Yes (4) Hyperbilirubinemia Is this a current diagnosis for this admission?: Yes (5) E. coli UTI (urinary tract infection) Is this a current diagnosis for this admission?: Yes
--- NOTE | 2018-02-26 16:54 | RADIOLOGY REPORT (SQ) ---
EXAM DESCRIPTION: HAND LEFT 2 VIEWS COMPLETED DATE/TIME: 02/26/2018 4:41 pm REASON FOR STUDY: bone infarct COMPARISON: None. EXAM PARAMETERS: NUMBER OF VIEWS: Three views. TECHNIQUE: AP, lateral and oblique radiographic images acquired of the left hand. LIMITATIONS: None. FINDINGS: MINERALIZATION: Normal. BONES: No acute fracture or dislocation. No worrisome bone lesions. Joint space narrowing with sclero sis and osteophytes at the 1st carpal metacarpal joint. JOINTS: No erosions. No radha-articular osteopenia. No chondrocalcinosis. SOFT TISSUES: No swelling. No calcifications. OTHER: No other significant finding. IMPRESSION: CHRONIC DEGENERATIVE CHANGES AT THE BASE OF THE THUMB. NO ACUTE FINDINGS. TECHNICAL DOCUMENTATION: JOB ID: [id number] [employer]- All Rights Reserved Reading location - IP/workstation name: [email or web address]
[2018-02-26] MEDS: RIVAROXABAN 10 MG TABLET PO SCH (17:55)
[2018-02-26] MEDS: NORMAL SALINE 1000 ML 1,000 ML IV PRN (19:47)
[2018-02-27] MEDS: DIPHENHYDRAMINE HCL 50 MG/ML VIAL IV PRN ×3 (02:33→19:21)
[2018-02-27] MEDS: HYDROMORPHONE HCL INJ/PF 2 MG/ML AMPULE IV PRN ×6 (02:33→23:32)
[2018-02-27] MEDS: ONDANSETRON HCL INJ/PF 4 MG/2 ML SDV IV PRN ×6 (02:33→23:32)
[2018-02-27] MEDS: OXYCODONE HCL SR 40 MG TABLET PO SCH ×3 (05:37→22:30)
[2018-02-27] MEDS: GABAPENTIN 300 MG CAPSULE PO SCH ×3 (05:37→22:30)
[2018-02-27] MEDS: NORMAL SALINE 1000 ML 1,000 ML IV PRN ×2 (06:46→17:27)
[2018-02-27] MEDS: MULTIVITAMIN TABLET PO SCH (10:54)
[2018-02-27] MEDS: FOLIC ACID 1 MG TABLET PO SCH (10:55)
[2018-02-27] MEDS: CIPROFLOXACIN 400 MG/D5W RTU 400 MG/200 ML RTUPB IV SCH ×2 (10:55→22:29)
[2018-02-27] MEDS: HYDROXYUREA 500 MG CAPSULE PO SCH ×2 (11:02→22:30)
[2018-02-27] MEDS: RIVAROXABAN 10 MG TABLET PO SCH (17:26)
--- NOTE | 2018-02-27 20:55 | PDOC PROGRESS REPORT ---
Subjective Progress Note for:: 02/27/18 Subjective:: She was by the bedside,, she has swelling of the left hand , x-ray ordered Reason For Visit: SICKLE CELL BONE CRISIS, UTI Physical Exam Vital Signs: Temp Pulse Resp BP Pulse Ox 99.6 F 78 20 98/50 L 99 02/27/18 15:08 02/27/18 15:08 02/27/18 15:08 02/27/18 15:08 02/27/18 15:08 Intake & Output 02/26/18 02/27/18 02/28/18 06:59 06:59 06:59 Intake Total 7144 3830 2103 Output Total 65402 7100 1700 Balance -5304 -8534 403 Weight 65.1 kg 65.5 kg General appearance: PRESENT: no acute distress Eye exam: PRESENT: PERRLA Respiratory exam: PRESENT: clear to auscultation carolyn Cardiovascular exam: PRESENT: +S1, +S2 Neurological exam: PRESENT: alert Results Laboratory Results: 02/24/18 20:40 02/24/18 06:45 02/21/18 23:58 Blood Blood Culture - Final NO GROWTH IN 5 DAYS 02/21/18 21:45 Blood Blood Culture - Final NO GROWTH IN 5 DAYS Impressions: Abdomen Ultrasound 02/22/18 00:00 IMPRESSION: 1. Mildly heterogeneous echogenicity of the liver is nonspecific and can be seen with acute or chronic liver disease. 2. Prior cholecystectomy and splenomegaly. Chest X-Ray 02/22/18 00:00 IMPRESSION: No acute cardiopulmonary disease. Hand X-Ray 02/26/18 00:00 IMPRESSION: CHRONIC DEGENERATIVE CHANGES AT THE BASE OF THE THUMB. NO ACUTE FINDINGS. Assessment & Plan - Diagnosis (1) Sickle-cell anemia with crisis Is this a current diagnosis for this admission?: Yes (2) Hb-SS disease with vaso-occlusive crisis Is this a current diagnosis for this admission?: Yes (3) Urinary tract infection Qualifiers: Urinary tract infection type: site unspecified Hematuria presence: without hematuria Qualified Code(s): N39.0 - Urinary tract infection, site not specified Is this a current diagnosis for this admission?: Yes (4) Hyperbilirubinemia Is this a current diagnosis for this admission?: Yes (5) E. coli UTI (urinary tract infection) Is this a current diagnosis for this admission?: Yes
[2018-02-28] MEDS: HYDROMORPHONE HCL INJ/PF 2 MG/ML AMPULE IV PRN ×5 (03:24→19:59)
[2018-02-28] MEDS: DIPHENHYDRAMINE HCL 50 MG/ML VIAL IV PRN (03:25)
[2018-02-28] MEDS: ONDANSETRON HCL INJ/PF 4 MG/2 ML SDV IV PRN ×4 (03:25→20:00)
[2018-02-28] MEDS: OXYCODONE HCL SR 40 MG TABLET PO SCH ×3 (06:34→21:40)
[2018-02-28] MEDS: GABAPENTIN 300 MG CAPSULE PO SCH ×3 (06:34→21:40)
[2018-02-28] MEDS: NORMAL SALINE 1000 ML 1,000 ML IV PRN ×2 (06:34→17:50)
[2018-02-28] MEDS: CIPROFLOXACIN 400 MG/D5W RTU 400 MG/200 ML RTUPB IV SCH (10:28)
[2018-02-28] MEDS: FOLIC ACID 1 MG TABLET PO SCH (10:29)
[2018-02-28] MEDS: MULTIVITAMIN TABLET PO SCH (10:29)
[2018-02-28] MEDS: HYDROXYUREA 500 MG CAPSULE PO SCH ×2 (10:29→21:40)
--- NOTE | 2018-02-28 15:01 | PDOC DISCHARGE SUMMARY ---
General - Admit/Disc Date/PCP Admission Date/Primary Care Provider: 02/21/18 19:56 HOMA BARRAZA MD Discharge Date: 02/28/18 - Discharge Diagnosis (1) Sickle-cell anemia with crisis Is this a current diagnosis for this admission?: Yes (2) Hb-SS disease with vaso-occlusive crisis Is this a current diagnosis for this admission?: Yes (3) Urinary tract infection Is this a current diagnosis for this admission?: Yes (4) Hyperbilirubinemia Is this a current diagnosis for this admission?: Yes (5) E. coli UTI (urinary tract infection) Is this a current diagnosis for this admission?: Yes - Additional Information Home Medications: Epoetin Federico [Procrit Inj 40,000 Unit/1 ml Vial (Oncology)] 40,000 unit SUBCUT FR@1000 08/04/17 Epoetin Federico [Procrit] 20,000 unit SUBCUT FR@1000 08/04/17 Folic Acid [Folvite 1 mg Tablet] 1 mg PO DAILY 08/04/17 Gabapentin [Neurontin 300 mg Capsule] 300 mg PO Q8 08/04/17 Hydroxyurea [Hydrea 500 mg Capsule] 500 mg PO BID 08/04/17 Multivitamin [Tab-A-Yosvany] 1 tab PO DAILY 08/04/17 Oxycodone HCl 30 mg PO Q6HP PRN 08/04/17 Oxycodone HCl [Oxycontin Sr 40 mg Tablet] 40 mg PO Q8 08/04/17 Rivaroxaban [Xarelto] 20 mg PO QHS 08/04/17 History of Present Illness History of Present Illness: WILLIE ALAN is a 48 year old female ,she has sickle cell disease,, SS type, she came to the office for evaluation of generalized malaise, fever, generalized body pains, urinary symptoms, she stated that she does not feel well. She says she has been doing well for the last couple of weeks until the last few days when she felt unwell she thought she had a UTI and that is the trigger for the bone pain crisis she is experiencing. She was admitted directly from the office to the hospital, the blood work that was done suggest hyperbilirubinemia more in direct bilirubin suggesting hemolysis, the LFT pattern suggest obstructive jaundice. Ultrasound of the liver was done, the common bile duct is not dilated. The urinalysis is grossly abnormal the hemogram showed hemoglobin of 9 which is pretty good for this patient. Hospital Course Hospital Course: Patient was admitted for the management of vaso-occlusive sickle cell crisis, E. coli UTI, she was treated with IV antibiotic ,hydration and pain control with Dilaudid. Because of the inclement weather on the fact that [facility] declared mandatory evacuation, patient has been transfer to another facility for continuity of care. Physical Exam Vital Signs: Temp Pulse Resp BP Pulse Ox 99.3 F 82 18 103/60 100 02/28/18 11:56 02/28/18 14:00 02/28/18 11:56 02/28/18 11:56 02/28/18 11:56 Intake & Output 02/27/18 02/28/18 03/01/18 06:59 06:59 06:59 Intake Total 3830 3969 200 Output Total 7100 3600 Balance -3270 369 200 Weight 65.5 kg 65 kg General appearance: PRESENT: mild distress Eye exam: PRESENT: PERRLA Respiratory exam: PRESENT: clear to auscultation carolyn Cardiovascular exam: PRESENT: +S1, +S2 GI/Abdominal exam: PRESENT: soft Results Laboratory Results: 02/24/18 20:40 02/24/18 06:45 Impressions: Abdomen Ultrasound 02/22/18 00:00 IMPRESSION: 1. Mildly heterogeneous echogenicity of the liver is nonspecific and can be seen with acute or chronic liver disease. 2. Prior cholecystectomy and splenomegaly. Chest X-Ray 02/22/18 00:00 IMPRESSION: No acute cardiopulmonary disease. Hand X-Ray 02/26/18 00:00 IMPRESSION: CHRONIC DEGENERATIVE CHANGES AT THE BASE OF THE THUMB. NO ACUTE FINDINGS. Qualifiers - * PATIENT BEING DISCHARGED WITH ANY OF THE FOLLOWING DIAGNOSIS: No
[2018-02-28] MEDS: RIVAROXABAN 10 MG TABLET PO SCH (17:50)
[2018-03-01] MEDS: ONDANSETRON HCL INJ/PF 4 MG/2 ML SDV IV PRN ×3 (00:26→08:44)
[2018-03-01] MEDS: HYDROMORPHONE HCL INJ/PF 2 MG/ML AMPULE IV PRN ×4 (00:26→12:44)
[2018-03-01 00:28] VITALS: BP 107/66
[2018-03-01] MEDS: NORMAL SALINE 1000 ML 1,000 ML IV PRN (03:12)
[2018-03-01] MEDS: GABAPENTIN 300 MG CAPSULE PO SCH ×2 (06:01→13:08)
[2018-03-01] MEDS: FOLIC ACID 1 MG TABLET PO SCH (09:00)
[2018-03-01] MEDS: HYDROXYUREA 500 MG CAPSULE PO SCH (09:00)
[2018-03-01] MEDS: MULTIVITAMIN TABLET PO SCH (09:00)
[2018-03-01 10:28] LABS: ALANINE AMINOTRANSFERASE 110 U/L (9-52); ALBUMIN 3.5 g/dL (3.5-5.0); ALKALINE PHOSPHATASE 148 U/L (38-126); ANION GAP 7 (5-19); ASPARTATE AMINO TRANSFERASE 128 U/L (14-36); BILIRUBIN,DIRECT 0.4 mg/dL (0.0-0.4); BILIRUBIN,TOTAL 3.5 mg/dL (0.2-1.3); BLOOD UREA NITROGEN 8 mg/dL (7-20); CALCIUM 8.7 mg/dL (8.4-10.2); CARBON DIOXIDE 27 mmol/L (22-30); CHLORIDE 105 mmol/L (98-107); GLUCOSE 128 mg/dL (75-110); SODIUM 138.7 mmol/L (137-145); TOTAL PROTEIN 6.3 g/dL (6.3-8.2)
== END 2018-03-01 15:40 | disposition home or self-care (01) | DRG 812 ==
LOC: 4S 19:56
PROVIDERS: ADMIT Internal Medicine; ATTEND Internal Medicine
DX: D57.819 Other sickle-cell disorders with crisis, unspecified (principal); N39.0 Urinary tract infection, site not specified; B96.20 Unspecified Escherichia coli [E. coli] as the cause of diseases classified elsewhere; E80.6 Other disorders of bilirubin metabolism; F32.9 Major depressive disorder, single episode, unspecified; Z86.14 Personal history of Methicillin resistant Staphylococcus aureus infection; Z90.49 Acquired absence of other specified parts of digestive tract; Z79.899 Other long term (current) drug therapy; Z88.1 Allergy status to other antibiotic agents
CPT/HCPCS: 36415; 36430; 71045; 76700; 80053; 81001; 83010; 83615; 85025; 85027; 85045; 86850; 86900; 86901; 86902; 86920; 87040; 87086; 87088; 87186; J0744; J0885; J1170; J1200; J2405; J7030; P9016; S0119

== ENCOUNTER 2018-04-11 13:20 | Inpatient (IN) | payer MEDICAID ==
[2018-04-11] MEDS: HYDROMORPHONE HCL INJ/PF 2 MG/ML AMPULE IV PRN ×3 (16:44→21:56)
[2018-04-11 17:26] LABS: APPEARANCE,URINE CLEAR; BILIRUBIN,URINE NEGATIVE (NEGATIVE); COLOR,URINE AMBER; GLUCOSE, URINE NEGATIVE (NEGATIVE); KETONES,URINE NEGATIVE (NEGATIVE); LEUKOCYTE ESTERASE,URINE TRACE (NEGATIVE); NITRITE,URINE NEGATIVE (NEGATIVE); PROTEIN,URINE NEGATIVE (NEGATIVE); URINE SPECIFIC GRAVITY 1.014
[2018-04-11] MEDS: LEVOFLOXACIN 750 MG/D5W RTU 750 MG/150 ML RTUPB IV SCH (17:55)
[2018-04-11] MEDS: NORMAL SALINE 1000 ML 1,000 ML IV PRN (17:55)
--- NOTE | 2018-04-11 18:11 | RADIOLOGY REPORT (SQ) ---
EXAM DESCRIPTION: CHEST 2 VIEWS COMPLETED DATE/TIME: 04/11/2018 5:16 pm REASON FOR STUDY: pain crisis COMPARISON: 10/09/2017 EXAM PARAMETERS: NUMBER OF VIEWS: two views TECHNIQUE: Digital Frontal and Lateral radiographic views of the chest acquired. RADIATION DOSE: NA LIMITATIONS: none FINDINGS: LUNGS AND PLEURA: Interstitial markings are prominent but unchanged. No focal consolidati on. MEDIASTINUM AND HILAR STRUCTURES: No masses or contour abnormalities. HEART AND VASCULAR STRUCTURES: Heart normal size. No evidence for failure. BONES: No acute findings. HARDWARE: [id number] remains in place. OTHER: No other significant finding. IMPRESSION: No significant interval change in the chest. TECHNICAL DOCUMENTATION: JOB ID: [id number] [employer]- All Rights Reserved Reading location - IP/workstation name: [email or web address]
[2018-04-11 19:15] LABS: ABSOLUTE RETICS # 0.112 10^6/uL (0.028-0.122); HEMATOCRIT 24.2 % (36.0-47.0); HEMOGLOBIN 8.5 g/dL (12.0-15.5); MEAN CORPUSCULAR HEMOGLOBIN 41.1 pg (27.0-33.4); MEAN CORPUSCULAR VOLUME 117 fl (80-97); PLATELET COUNT 292 10^3/uL (150-450); RED BLOOD COUNT 2.06 10^6/uL (3.72-5.28); RED CELL DISTRIBUTION WIDTH 21.1 % (11.5-14.0); RETICULOCYTE COUNT (AUTO) 5.45 % (0.66-2.85); WHITE BLOOD COUNT 7.7 10^3/uL (4.0-10.5)
[2018-04-11 19:33] LABS: ANION GAP 13 (5-19); BLOOD UREA NITROGEN 10 mg/dL (7-20); CALCIUM 9.7 mg/dL (8.4-10.2); CARBON DIOXIDE 21 mmol/L (22-30); CHLORIDE 106 mmol/L (98-107); GLUCOSE 149 mg/dL (75-110); POTASSIUM 3.7 mmol/L (3.6-5.0)
[2018-04-11 19:37] LABS: ABSOLUTE LYMPHOCYTES# (MANUAL) 1.8 10^3/uL (0.5-4.7); ABSOLUTE MONOCYTES # (MANUAL) 0.8 10^3/uL (0.1-1.4); ABSOLUTE NEUTROPHILS# (MANUAL) 4.9 10^3/uL (1.7-8.2); BASOPHILS % (MANUAL) 0 % (0-2); EOSINOPHILS % (MANUAL) 1 % (0-6); LYMPHOCYTES % (MANUAL) 22 % (13-45); MONOCYTES % (MANUAL) 11 % (3-13); NUCLEATED RED BLOOD CELLS 2 /100 WBC (0); SEGMENTED NEUTROPHILS % (MAN) 64 % (42-78); TOTAL CELLS COUNTED 100
[2018-04-11 19:40] LABS: ANISOCYTOSIS 3+; OVALOCYTES SLIGHT; PLATELET COMMENT ADEQUATE; POIKILOCYTOSIS 1+; SCHISTOCYTES SLIGHT; SICKLE RED CELLS SLIGHT; TOXIC GRANULATION SLIGHT
[2018-04-11] MEDS ORDERED: PROMETHAZINE HCL 25 MG TABLET PO PRN (21:18)
--- NOTE | 2018-04-11 21:20 | PDOC H&P ---
History of Present Illness Admission Date/PCP: 04/11/18 13:20 HOMA BARRAZA MD History of Present Illness: WILLIE ALAN is a 48 year old female, she has history of sickle cell disease, SS, she came to the office for evaluation of body pains, jaundice, malaise. She has a history of multiple hospitalization for acute vaso- occlusive syndromes. In the office she was evaluated she was found to be jaundiced suggesting sickle cell hemolytic crisis, she was admitted directly from the office to the hospital. The hemoglobin is 8.5, there is hyperbilirubinemia, mostly in the right, elevated LDH level consistent with hemolysis. 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 Past Surgical History Past Surgical History: Reports: Appendectomy, Section, Cholecystectomy , Orthopedic Surgery - R knee, Tonsillectomy Social History Smoking Status: Never Smoker Frequency of Alcohol Use: None Hx Recreational Drug Use: No Drugs: None Hx Prescription Drug Abuse: No Family History Family History: Reviewed & Not Pertinent Parental Family History Reviewed: Yes Children Family History Reviewed: Yes Sibling(s) Family History Reviewed.: Yes Medication/Allergy Home Medications: Epoetin Federico [Procrit] 20,000 unit SUBCUT FR@1000 04/11/18 Epoetin Federico [Procrit] 40,000 unit SUBCUT FR@1000 04/11/18 Folic Acid [Folvite 1 mg Tablet] 1 mg PO DAILY 04/11/18 Gabapentin [Neurontin 300 mg Capsule] 300 mg PO Q8 04/11/18 Hydroxyurea [Hydrea 500 Mg Capsule] 500 mg PO BID 04/11/18 Morphine Sulfate [Morphine Sulfate ER] 30 mg PO Q12 04/11/18 Multivitamin [Tab-A-Yosvany (Multiple Vitamin) Tablet] 1 tab PO DAILY 04/11/18 Oxycodone HCl [Roxicodone] 30 mg PO Q6HP PRN 04/11/18 Promethazine HCl [Phenergan 25 mg Tablet] 25 mg PO Q6HP PRN 04/11/18 Rivaroxaban [Xarelto] 20 mg PO QPM 04/11/18 Allergies/Adverse Reactions: doxycycline [Doxycycline] Allergy (Severe, Verified 12/03/17 18:53) Review of Systems Constitutional: PRESENT: chills, fatigue Eyes: ABSENT: visual disturbances Ears: ABSENT: hearing changes Cardiovascular: ABSENT: chest pain, dyspnea on exertion, edema, orthropnea, palpitations Respiratory: ABSENT: cough, hemoptysis Gastrointestinal: ABSENT: abdominal pain, constipation, diarrhea, hematemesis, hematochezia, nausea, vomiting Genitourinary: ABSENT: dysuria, hematuria Musculoskeletal: PRESENT: back pain Integumentary: ABSENT: rash, wounds Neurological: ABSENT: abnormal gait, abnormal speech, confusion, dizziness, focal weakness, syncope Psychiatric: ABSENT: anxiety, depression, homidical ideation, suicidal ideation Endocrine: ABSENT: cold intolerance, heat intolerance, menstrual abnormalities, polydipsia, polyuria Hematologic/Lymphatic: ABSENT: easy bleeding, easy bruising, lymphadenopathy Physical Exam Vital Signs: Temp Pulse Resp BP Pulse Ox 99.0 F 87 21 H 110/60 100 04/11/18 19:27 04/11/18 19:27 04/11/18 19:27 04/11/18 19:27 04/11/18 19:27 Intake & Output 04/10/18 04/11/18 04/12/18 06:59 06:59 06:59 Intake Total 594 Output Total 100 Balance 494 Weight 55 kg General appearance: PRESENT: mild distress Head exam: PRESENT: atraumatic, normocephalic Eye exam: PRESENT: PERRLA, scleral icterus Ear exam: PRESENT: normal external ear exam Mouth exam: PRESENT: moist, tongue midline Neck exam: PRESENT: full ROM Respiratory exam: PRESENT: clear to auscultation carolyn Cardiovascular exam: PRESENT: RRR, +S1, +S2 Pulses: PRESENT: normal dorsalis pedis pul, +2 pedal pulses bilateral Vascular exam: PRESENT: normal capillary refill GI/Abdominal exam: PRESENT: normal bowel sounds, soft Rectal exam: PRESENT: deferred Neurological exam: PRESENT: alert Psychiatric exam: PRESENT: appropriate affect, normal mood Skin exam: PRESENT: dry, intact, warm Results Laboratory Results: 04/11/18 18:45 04/11/18 18:45 04/11/18 04/11/18 04/11/18 17:00 18:45 18:45 WBC 7.7 RBC 2.06 L Hgb 8.5 L Hct 24.2 L MCV 117 H MCH 41.1 H MCHC 35.0 RDW 21.1 H Plt Count 292 Seg Neutrophils % Not Reportable Lymphocytes % Not Reportable Monocytes % Not Reportable Eosinophils % Not Reportable Basophils % Not Reportable Absolute Neutrophils Not Reportable Absolute Lymphocytes Not Reportable Absolute Monocytes Not Reportable Absolute Eosinophils Not Reportable Absolute Basophils Not Reportable Retic Count (auto) 5.45 H Absolute Retic 0.112 Sodium 140.0 Potassium 3.7 Chloride 106 Carbon Dioxide 21 L Anion Gap 13 BUN 10 Creatinine 0.65 Est GFR ( Amer) > 60 Est GFR (Non-Af Amer) > 60 Glucose 149 H Calcium 9.7 TSH Urine Color HINA Urine Appearance CLEAR Urine pH 6.0 Ur Specific [place] 1.014 Urine Protein NEGATIVE Urine Glucose (UA) NEGATIVE Urine Ketones NEGATIVE Urine Blood SMALL H Urine Nitrite NEGATIVE Ur Leukocyte Esterase TRACE H Urine WBC (Auto) 3 Urine RBC (Auto) 0 04/11/18 18:45 WBC RBC Hgb Hct MCV MCH MCHC RDW Plt Count Seg Neutrophils % Lymphocytes % Monocytes % Eosinophils % Basophils % Absolute Neutrophils Absolute Lymphocytes Absolute Monocytes Absolute Eosinophils Absolute Basophils Retic Count (auto) Absolute Retic Sodium Potassium Chloride Carbon Dioxide Anion Gap BUN Creatinine Est GFR ( Amer) Est GFR (Non-Af Amer) Glucose Calcium TSH 1.40 Urine Color Urine Appearance Urine pH Ur Specific [place] Urine Protein Urine Glucose (UA) Urine Ketones Urine Blood Urine Nitrite Ur Leukocyte Esterase Urine WBC (Auto) Urine RBC (Auto) Impressions: Chest X-Ray 04/11/18 00:00 IMPRESSION: No significant interval change in the chest. Assessment & Plan - Diagnosis (1) Vasoocclusive sickle cell crisis Is this a current diagnosis for this admission?: Yes Plan: She has acute vaso-occlusive sickle cell crisis, start IV fluid, pain control with opioid (2) Sickle cell hemolytic anemia Qualifiers: Sickle-cell associated disorders: with unspecified crisis Qualified Code(s) : D57.00 - Hb-SS disease with crisis, unspecified; D57.0 - Hb-SS disease with crisis Is this a current diagnosis for this admission?: Yes Plan: She has hemolytic crisis, no need for immediate transition with erythrocyte presently, continue to monitor
[2018-04-11 21:32] LABS: ALANINE AMINOTRANSFERASE 38 U/L (9-52); ALBUMIN 4.8 g/dL (3.5-5.0); ALKALINE PHOSPHATASE 113 U/L (38-126); ASPARTATE AMINO TRANSFERASE 60 U/L (14-36); BILIRUBIN,DIRECT 1.3 mg/dL (0.0-0.4); BILIRUBIN,TOTAL 5.9 mg/dL (0.2-1.3); TOTAL PROTEIN 7.8 g/dL (6.3-8.2)
[2018-04-11] MEDS: MORPHINE SULFATE SR 30 MG TABLET PO SCH (22:08)
[2018-04-11] MEDS: HYDROXYUREA 500 MG CAPSULE PO SCH (22:08)
[2018-04-11] MEDS: MULTIVITAMIN TABLET PO SCH (22:09)
[2018-04-11] MEDS: GABAPENTIN 300 MG CAPSULE PO SCH (22:12)
[2018-04-11] MEDS: FOLIC ACID 1 MG TABLET PO SCH (22:57)
[2018-04-11] MEDS: OXYCODONE HCL IR 5 MG TABLET PO PRN (22:59)
[2018-04-12] MEDS: HYDROMORPHONE HCL INJ/PF 2 MG/ML AMPULE IV PRN ×7 (00:53→20:19)
[2018-04-12] MEDS: GABAPENTIN 300 MG CAPSULE PO SCH ×3 (05:07→21:54)
[2018-04-12] MEDS: OXYCODONE HCL IR 5 MG TABLET PO PRN (05:07)
[2018-04-12 08:11] LABS: INTERNATIONAL RATION (INR) 1.28; PARTIAL THROMBOPLASTIN TIME 27.6 SEC (23.5-35.8); PROTHROMBIN TIME 16.6 SEC (11.4-15.4)
[2018-04-12] MEDS: MULTIVITAMIN TABLET PO SCH (10:03)
[2018-04-12] MEDS: MORPHINE SULFATE SR 30 MG TABLET PO SCH ×2 (10:03→21:54)
[2018-04-12] MEDS: HYDROXYUREA 500 MG CAPSULE PO SCH ×2 (10:03→21:55)
[2018-04-12] MEDS: FOLIC ACID 1 MG TABLET PO SCH (10:12)
[2018-04-12] MEDS: NORMAL SALINE 1000 ML 1,000 ML IV PRN (15:04)
[2018-04-12] MEDS: PROMETHAZINE HCL INJ 25 MG/1 ML VIAL IV PRN (15:04)
--- NOTE | 2018-04-12 16:00 | PDOC PROGRESS REPORT ---
Subjective Progress Note for:: 04/12/18 Subjective:: Patient was admitted yesterday for the management of sickle cell crisis, complaint of nausea vomiting, not responding to Zofran Reason For Visit: SICK CELL, BONE PAIN CRISIS,HEMOLYTIC CRISIS, Physical Exam Vital Signs: Temp Pulse Resp BP Pulse Ox 98.8 F 88 16 109/66 98 04/12/18 15:05 04/12/18 15:05 04/12/18 15:05 04/12/18 15:05 04/12/18 15:05 Intake & Output 04/11/18 04/12/18 04/13/18 06:59 06:59 06:59 Intake Total 1816 354 Output Total 100 950 Balance 1716 -596 Weight 59.1 kg General appearance: PRESENT: mild distress Eye exam: PRESENT: PERRLA, scleral icterus Respiratory exam: PRESENT: clear to auscultation carolyn Cardiovascular exam: PRESENT: +S1, +S2 GI/Abdominal exam: PRESENT: soft Neurological exam: PRESENT: alert Results Laboratory Results: 04/11/18 18:45 04/11/18 18:45 04/11/18 04/11/18 04/11/18 17:00 18:45 18:45 WBC 7.7 RBC 2.06 L Hgb 8.5 L Hct 24.2 L MCV 117 H MCH 41.1 H MCHC 35.0 RDW 21.1 H Plt Count 292 Seg Neutrophils % Not Reportable Lymphocytes % Not Reportable Monocytes % Not Reportable Eosinophils % Not Reportable Basophils % Not Reportable Absolute Neutrophils Not Reportable Absolute Lymphocytes Not Reportable Absolute Monocytes Not Reportable Absolute Eosinophils Not Reportable Absolute Basophils Not Reportable Retic Count (auto) 5.45 H Absolute Retic 0.112 Sodium 140.0 Potassium 3.7 Chloride 106 Carbon Dioxide 21 L Anion Gap 13 BUN 10 Creatinine 0.65 Est GFR ( Amer) > 60 Est GFR (Non-Af Amer) > 60 Glucose 149 H Calcium 9.7 Total Bilirubin AST ALT Alkaline Phosphatase Total Protein Albumin TSH Free T4 Urine Color HINA Urine Appearance CLEAR Urine pH 6.0 Ur Specific [place] 1.014 Urine Protein NEGATIVE Urine Glucose (UA) NEGATIVE Urine Ketones NEGATIVE Urine Blood SMALL H Urine Nitrite NEGATIVE Ur Leukocyte Esterase TRACE H Urine WBC (Auto) 3 Urine RBC (Auto) 0 04/11/18 04/11/18 04/12/18 18:45 20:50 07:40 WBC RBC Hgb Hct MCV MCH MCHC RDW Plt Count Seg Neutrophils % Lymphocytes % Monocytes % Eosinophils % Basophils % Absolute Neutrophils Absolute Lymphocytes Absolute Monocytes Absolute Eosinophils Absolute Basophils Retic Count (auto) Absolute Retic Sodium Potassium Chloride Carbon Dioxide Anion Gap BUN Creatinine Est GFR ( Amer) Est GFR (Non-Af Amer) Glucose Calcium Total Bilirubin 5.9 H AST 60 H ALT 38 Alkaline Phosphatase 113 Total Protein 7.8 Albumin 4.8 TSH 1.40 Free T4 0.99 Urine Color Urine Appearance Urine pH Ur Specific [place] Urine Protein Urine Glucose (UA) Urine Ketones Urine Blood Urine Nitrite Ur Leukocyte Esterase Urine WBC (Auto) Urine RBC (Auto) Impressions: Chest X-Ray 04/11/18 00:00 IMPRESSION: No significant interval change in the chest. Assessment & Plan - Diagnosis (1) Vasoocclusive sickle cell crisis Is this a current diagnosis for this admission?: Yes Plan: Continue treatment (2) Sickle cell hemolytic anemia Qualifiers: Sickle-cell associated disorders: with unspecified crisis Qualified Code(s) : D57.00 - Hb-SS disease with crisis, unspecified; D57.0 - Hb-SS disease with crisis Is this a current diagnosis for this admission?: Yes Plan: She has hemolytic crisis, no need for immediate transition with erythrocyte presently, continue to monitor
[2018-04-12 16:17] LABS: HEMATOCRIT 20.1 % (36.0-47.0); MEAN CORPUSCULAR HGB CONC 35.4 g/dL (32.0-36.0); MEAN CORPUSCULAR VOLUME 116 fl (80-97); PLATELET COUNT 243 10^3/uL (150-450); RED BLOOD COUNT 1.74 10^6/uL (3.72-5.28); RED CELL DISTRIBUTION WIDTH 21.3 % (11.5-14.0)
[2018-04-12 16:34] LABS: ALANINE AMINOTRANSFERASE 42 U/L (9-52); ALBUMIN 4.3 g/dL (3.5-5.0); ALKALINE PHOSPHATASE 103 U/L (38-126); ANION GAP 11 (5-19); ASPARTATE AMINO TRANSFERASE 54 U/L (14-36); BILIRUBIN,DIRECT 1.4 mg/dL (0.0-0.4); BILIRUBIN,TOTAL 7.1 mg/dL (0.2-1.3); BLOOD UREA NITROGEN 11 mg/dL (7-20); CALCIUM 9.1 mg/dL (8.4-10.2); CARBON DIOXIDE 25 mmol/L (22-30); CHLORIDE 107 mmol/L (98-107); GLUCOSE 108 mg/dL (75-110); SODIUM 143.2 mmol/L (137-145); TOTAL PROTEIN 7.4 g/dL (6.3-8.2)
[2018-04-12] MEDS: LEVOFLOXACIN 750 MG/D5W RTU 750 MG/150 ML RTUPB IV SCH (17:04)
[2018-04-12] MEDS: RIVAROXABAN 10 MG TABLET PO SCH (17:04)
[2018-04-12 17:12] LABS: WHITE BLOOD COUNT 8.9 10^3/uL (4.0-10.5)
[2018-04-12 17:13] LABS: ABSOLUTE LYMPHOCYTES# (MANUAL) 2.3 10^3/uL (0.5-4.7); ABSOLUTE MONOCYTES # (MANUAL) 0.4 10^3/uL (0.1-1.4); ABSOLUTE NEUTROPHILS# (MANUAL) 5.9 10^3/uL (1.7-8.2); ANISOCYTOSIS 3+; BASOPHILS % (MANUAL) 0 % (0-2); EOSINOPHILS % (MANUAL) 4 % (0-6); HYPOCHROMASIA 3+; LYMPHOCYTES % (MANUAL) 26 % (13-45); MONOCYTES % (MANUAL) 4 % (3-13); NUCLEATED RED BLOOD CELLS 3 /100 WBC (0); POIKILOCYTOSIS 2+; POLYCHROMASIA SLIGHT; SEGMENTED NEUTROPHILS % (MAN) 66 % (42-78); SICKLE RED CELLS 1+; TARGET CELLS 2+; TOTAL CELLS COUNTED 100
[2018-04-12 17:14] LABS: PLATELET COMMENT ADEQUATE
[2018-04-12 17:15] LABS: HEMOGLOBIN 7.1 g/dL (12.0-15.5)
[2018-04-13] MEDS: HYDROMORPHONE HCL INJ/PF 2 MG/ML AMPULE IV PRN ×8 (00:21→22:01)
[2018-04-13] MEDS: PROMETHAZINE HCL INJ 25 MG/1 ML VIAL IV PRN ×4 (00:21→22:01)
[2018-04-13] MEDS: NORMAL SALINE 1000 ML 1,000 ML IV PRN ×2 (03:55→12:43)
[2018-04-13] MEDS: GABAPENTIN 300 MG CAPSULE PO SCH ×3 (06:22→21:59)
[2018-04-13 08:38] LABS: HEMATOCRIT 19.3 % (36.0-47.0); MEAN CORPUSCULAR HEMOGLOBIN 41.4 pg (27.0-33.4); MEAN CORPUSCULAR HGB CONC 35.6 g/dL (32.0-36.0); MEAN CORPUSCULAR VOLUME 116 fl (80-97); PLATELET COUNT 252 10^3/uL (150-450); RED BLOOD COUNT 1.65 10^6/uL (3.72-5.28); RED CELL DISTRIBUTION WIDTH 21.1 % (11.5-14.0); WHITE BLOOD COUNT 8.3 10^3/uL (4.0-10.5)
[2018-04-13 08:50] LABS: HEMOGLOBIN 6.9 g/dL (12.0-15.5)
[2018-04-13 09:04] LABS: ALANINE AMINOTRANSFERASE 35 U/L (9-52); ALKALINE PHOSPHATASE 116 U/L (38-126); ANION GAP 7 (5-19); ASPARTATE AMINO TRANSFERASE 46 U/L (14-36); BILIRUBIN,DIRECT 1.3 mg/dL (0.0-0.4); BILIRUBIN,TOTAL 6.6 mg/dL (0.2-1.3); BLOOD UREA NITROGEN 10 mg/dL (7-20); CALCIUM 9.3 mg/dL (8.4-10.2); CARBON DIOXIDE 23 mmol/L (22-30); CHLORIDE 109 mmol/L (98-107); GLUCOSE 105 mg/dL (75-110); POTASSIUM 4.4 mmol/L (3.6-5.0); SODIUM 139.3 mmol/L (137-145); TOTAL PROTEIN 6.6 g/dL (6.3-8.2)
[2018-04-13 09:05] LABS: ABSOLUTE LYMPHOCYTES# (MANUAL) 3.2 10^3/uL (0.5-4.7); ABSOLUTE MONOCYTES # (MANUAL) 0.8 10^3/uL (0.1-1.4); ABSOLUTE NEUTROPHILS# (MANUAL) 3.7 10^3/uL (1.7-8.2); ANISOCYTOSIS 2+; BASOPHILS % (MANUAL) 2 % (0-2); EOSINOPHILS % (MANUAL) 6 % (0-6); LYMPHOCYTES % (MANUAL) 38 % (13-45); MONOCYTES % (MANUAL) 10 % (3-13); OVALOCYTES 2+; PLATELET COMMENT ADEQUATE; POIKILOCYTOSIS 2+; SEGMENTED NEUTROPHILS % (MAN) 44 % (42-78); SICKLE RED CELLS SLIGHT; TOTAL CELLS COUNTED 100; TOXIC GRANULATION SLIGHT
[2018-04-13 09:06] LABS: HOWELL-JOLLY BODIES PRESENT; HYPOCHROMASIA SLIGHT; POLYCHROMASIA 2+; SCHISTOCYTES SLIGHT
[2018-04-13] MEDS: MORPHINE SULFATE SR 30 MG TABLET PO SCH ×2 (09:30→22:00)
[2018-04-13] MEDS: FOLIC ACID 1 MG TABLET PO SCH (09:30)
[2018-04-13] MEDS: HYDROXYUREA 500 MG CAPSULE PO SCH ×2 (09:31→22:00)
[2018-04-13] MEDS: MULTIVITAMIN TABLET PO SCH (09:31)
--- NOTE | 2018-04-13 09:40 | Physician Advisory Note ---
Physician Advisor ProgressNote .: Pursuant to the plan for [facility], I have reviewed the medical record for this patient. 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 Please consider documenting, if you agree: 1. 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 CK
[2018-04-13] MEDS: RIVAROXABAN 10 MG TABLET PO SCH (18:35)
[2018-04-13] MEDS: LEVOFLOXACIN 750 MG/D5W RTU 750 MG/150 ML RTUPB IV SCH (18:36)
--- NOTE | 2018-04-13 21:42 | PDOC PROGRESS REPORT ---
Subjective Progress Note for:: 04/13/18 Subjective:: Patient seen by the bedside she continues to complain of pain, she is empirically on IV antibiotic for possible UTI, history of recurrent UTI she has a painful nodule on her back, questionable, pustules , small abscess Reason For Visit: SICK CELL, BONE PAIN CRISIS,HEMOLYTIC CRISIS, Physical Exam Vital Signs: Temp Pulse Resp BP Pulse Ox 98.5 F 109 H 18 107/57 L 92 04/13/18 20:12 04/13/18 20:12 04/13/18 20:12 04/13/18 20:12 04/13/18 20:12 Intake & Output 04/12/18 04/13/18 04/14/18 06:59 06:59 06:59 Intake Total 1816 1976 1524 Output Total 100 1950 1800 Balance 1716 26 -276 Weight 59.1 kg 59.9 kg General appearance: PRESENT: no acute distress Eye exam: PRESENT: PERRLA Respiratory exam: PRESENT: clear to auscultation carolyn Cardiovascular exam: PRESENT: +S1, +S2 GI/Abdominal exam: PRESENT: soft Neurological exam: PRESENT: alert Results Laboratory Results: 04/13/18 08:15 04/13/18 08:15 04/13/18 04/13/18 08:15 08:15 WBC 8.3 RBC 1.65 L Hgb 6.9 L Hct 19.3 L MCV 116 H MCH 41.4 H MCHC 35.6 RDW 21.1 H Plt Count 252 Seg Neutrophils % Not Reportable Lymphocytes % Not Reportable Monocytes % Not Reportable Eosinophils % Not Reportable Basophils % Not Reportable Absolute Neutrophils Not Reportable Absolute Lymphocytes Not Reportable Absolute Monocytes Not Reportable Absolute Eosinophils Not Reportable Absolute Basophils Not Reportable Sodium 139.3 Potassium 4.4 Chloride 109 H Carbon Dioxide 23 Anion Gap 7 BUN 10 Creatinine 0.67 Est GFR ( Amer) > 60 Est GFR (Non-Af Amer) > 60 Glucose 105 Calcium 9.3 Total Bilirubin 6.6 H AST 46 H ALT 35 Alkaline Phosphatase 116 Total Protein 6.6 Albumin 4.0 Impressions: Chest X-Ray 04/11/18 00:00 IMPRESSION: No significant interval change in the chest. Assessment & Plan - Diagnosis (1) Vasoocclusive sickle cell crisis Is this a current diagnosis for this admission?: Yes Plan: Continue treatment (2) Sickle cell hemolytic anemia Qualifiers: Sickle-cell associated disorders: with unspecified crisis Qualified Code(s) : D57.00 - Hb-SS disease with crisis, unspecified; D57.0 - Hb-SS disease with crisis Is this a current diagnosis for this admission?: Yes
[2018-04-14] MEDS: NORMAL SALINE 1000 ML 1,000 ML IV PRN ×3 (00:59→19:37)
[2018-04-14] MEDS: HYDROMORPHONE HCL INJ/PF 2 MG/ML AMPULE IV PRN ×8 (00:59→22:29)
[2018-04-14] MEDS: PROMETHAZINE HCL INJ 25 MG/1 ML VIAL IV PRN ×3 (04:18→19:33)
[2018-04-14] MEDS: GABAPENTIN 300 MG CAPSULE PO SCH ×3 (06:35→21:01)
[2018-04-14 08:34] LABS: MEAN CORPUSCULAR HEMOGLOBIN 40.8 pg (27.0-33.4); MEAN CORPUSCULAR HGB CONC 35.2 g/dL (32.0-36.0); MEAN CORPUSCULAR VOLUME 116 fl (80-97); PLATELET COUNT 260 10^3/uL (150-450); RED BLOOD COUNT 1.47 10^6/uL (3.72-5.28); RED CELL DISTRIBUTION WIDTH 21.5 % (11.5-14.0); WHITE BLOOD COUNT 7.6 10^3/uL (4.0-10.5)
[2018-04-14 08:56] LABS: ABSOLUTE LYMPHOCYTES# (MANUAL) 3.2 10^3/uL (0.5-4.7); ABSOLUTE MONOCYTES # (MANUAL) 0.6 10^3/uL (0.1-1.4); ABSOLUTE NEUTROPHILS# (MANUAL) 3.1 10^3/uL (1.7-8.2); ALANINE AMINOTRANSFERASE 34 U/L (9-52); ALBUMIN 3.6 g/dL (3.5-5.0); ALKALINE PHOSPHATASE 130 U/L (38-126); ANION GAP 13 (5-19); ASPARTATE AMINO TRANSFERASE 47 U/L (14-36); BAND NEUTROPHILS % (MANUAL) 1 % (3-5); BASOPHILS % (MANUAL) 0 % (0-2); BILIRUBIN,DIRECT 1.2 mg/dL (0.0-0.4); BILIRUBIN,TOTAL 5.4 mg/dL (0.2-1.3); BLOOD UREA NITROGEN 12 mg/dL (7-20); CARBON DIOXIDE 25 mmol/L (22-30); CHLORIDE 107 mmol/L (98-107); EOSINOPHILS % (MANUAL) 9 % (0-6); GLUCOSE 128 mg/dL (75-110); HYPERSEGMENTED NEUTROPHILS PRESENT; LYMPHOCYTES % (MANUAL) 42 % (13-45); MONOCYTES % (MANUAL) 8 % (3-13); NUCLEATED RED BLOOD CELLS 1 /100 WBC (0); POTASSIUM 3.9 mmol/L (3.6-5.0); SEGMENTED NEUTROPHILS % (MAN) 40 % (42-78); TOTAL CELLS COUNTED 100; TOTAL PROTEIN 6.3 g/dL (6.3-8.2); TOXIC GRANULATION SLIGHT; TOXIC VACUOLATION PRESENT
[2018-04-14 08:57] LABS: ANISOCYTOSIS 2+; HOWELL-JOLLY BODIES PRESENT; HYPOCHROMASIA SLIGHT; PLATELET COMMENT ADEQUATE; POIKILOCYTOSIS 2+; POLYCHROMASIA 1+; SICKLE RED CELLS 1+; TEAR DROP CELLS SLIGHT
[2018-04-14 08:58] LABS: PLATELET LARGE PRESENT
[2018-04-14] MEDS: MORPHINE SULFATE SR 30 MG TABLET PO SCH ×2 (09:49→21:01)
[2018-04-14] MEDS: HYDROXYUREA 500 MG CAPSULE PO SCH ×2 (09:50→21:02)
[2018-04-14] MEDS: MULTIVITAMIN TABLET PO SCH (09:50)
[2018-04-14] MEDS: FOLIC ACID 1 MG TABLET PO SCH (09:50)
[2018-04-14] MEDS: RIVAROXABAN 10 MG TABLET PO SCH (17:30)
--- NOTE | 2018-04-14 20:33 | PDOC PROGRESS REPORT ---
Subjective Progress Note for:: 04/14/18 Subjective:: She was seen by the bedside continues to have pain Reason For Visit: SICK CELL, BONE PAIN CRISIS,HEMOLYTIC CRISIS, Physical Exam Vital Signs: Temp Pulse Resp BP Pulse Ox 100.2 F 102 H 20 97/45 L 95 04/14/18 19:54 04/14/18 19:54 04/14/18 19:54 04/14/18 19:54 04/14/18 19:54 Intake & Output 04/13/18 04/14/18 04/15/18 06:59 06:59 06:59 Intake Total 1975 2674 2304 Output Total 1950 2450 500 Balance 26 224 1804 Weight 59.9 kg 60.4 kg General appearance: PRESENT: no acute distress Eye exam: PRESENT: PERRLA Respiratory exam: PRESENT: clear to auscultation carolyn Cardiovascular exam: PRESENT: +S1, systolic murmur GI/Abdominal exam: PRESENT: soft Results Laboratory Results: 04/14/18 08:10 04/14/18 08:10 04/14/18 04/14/18 08:10 08:10 WBC 7.6 RBC 1.47 L Hgb 6.0 L Hct 17.0 L MCV 116 H MCH 40.8 H MCHC 35.2 RDW 21.5 H Plt Count 260 Seg Neutrophils % Not Reportable Lymphocytes % Not Reportable Monocytes % Not Reportable Eosinophils % Not Reportable Basophils % Not Reportable Absolute Neutrophils Not Reportable Absolute Lymphocytes Not Reportable Absolute Monocytes Not Reportable Absolute Eosinophils Not Reportable Absolute Basophils Not Reportable Sodium 145.0 Potassium 3.9 Chloride 107 Carbon Dioxide 25 Anion Gap 13 BUN 12 Creatinine 0.73 Est GFR ( Amer) > 60 Est GFR (Non-Af Amer) > 60 Glucose 128 H Calcium 9.0 Total Bilirubin 5.4 H AST 47 H ALT 34 Alkaline Phosphatase 130 H Total Protein 6.3 Albumin 3.6 Impressions: Chest X-Ray 04/11/18 00:00 IMPRESSION: No significant interval change in the chest. Assessment & Plan - Diagnosis (1) Vasoocclusive sickle cell crisis Is this a current diagnosis for this admission?: Yes (2) Sickle cell hemolytic anemia Qualifiers: Sickle-cell associated disorders: with unspecified crisis Qualified Code(s) : D57.00 - Hb-SS disease with crisis, unspecified; D57.0 - Hb-SS disease with crisis Is this a current diagnosis for this admission?: Yes
[2018-04-15] MEDS: HYDROMORPHONE HCL INJ/PF 2 MG/ML AMPULE IV PRN ×7 (02:02→21:45)
[2018-04-15] MEDS: PROMETHAZINE HCL INJ 25 MG/1 ML VIAL IV PRN ×4 (02:02→21:45)
[2018-04-15] MEDS: NORMAL SALINE 1000 ML 1,000 ML IV PRN ×2 (05:18→17:50)
[2018-04-15] MEDS: GABAPENTIN 300 MG CAPSULE PO SCH ×3 (05:18→21:46)
[2018-04-15 06:09] LABS: HEMATOCRIT 16.3 % (36.0-47.0); MEAN CORPUSCULAR HEMOGLOBIN 41.3 pg (27.0-33.4); MEAN CORPUSCULAR HGB CONC 35.3 g/dL (32.0-36.0); MEAN CORPUSCULAR VOLUME 117 fl (80-97); PLATELET COUNT 280 10^3/uL (150-450); RED CELL DISTRIBUTION WIDTH 21.3 % (11.5-14.0); WHITE BLOOD COUNT 7.9 10^3/uL (4.0-10.5)
[2018-04-15 06:27] LABS: ALANINE AMINOTRANSFERASE 36 U/L (9-52); ALBUMIN 3.5 g/dL (3.5-5.0); ALKALINE PHOSPHATASE 126 U/L (38-126); ANION GAP 10 (5-19); ASPARTATE AMINO TRANSFERASE 48 U/L (14-36); BILIRUBIN,TOTAL 5.2 mg/dL (0.2-1.3); BLOOD UREA NITROGEN 12 mg/dL (7-20); CALCIUM 8.6 mg/dL (8.4-10.2); CARBON DIOXIDE 23 mmol/L (22-30); CHLORIDE 108 mmol/L (98-107); GLUCOSE 102 mg/dL (75-110); POTASSIUM 4.3 mmol/L (3.6-5.0); SODIUM 140.5 mmol/L (137-145); TOTAL PROTEIN 6.2 g/dL (6.3-8.2)
[2018-04-15 06:30] LABS: ABSOLUTE LYMPHOCYTES# (MANUAL) 3.3 10^3/uL (0.5-4.7); ABSOLUTE MONOCYTES # (MANUAL) 0.7 10^3/uL (0.1-1.4); ABSOLUTE NEUTROPHILS# (MANUAL) 3.2 10^3/uL (1.7-8.2); BASOPHILS % (MANUAL) 0 % (0-2); EOSINOPHILS % (MANUAL) 8 % (0-6); LYMPHOCYTES % (MANUAL) 41 % (13-45); MONOCYTES % (MANUAL) 9 % (3-13); NUCLEATED RED BLOOD CELLS 2 /100 WBC (0); SEGMENTED NEUTROPHILS % (MAN) 41 % (42-78); TOTAL CELLS COUNTED 100
[2018-04-15 06:32] LABS: ANISOCYTOSIS 3+; OVALOCYTES SLIGHT; PLATELET COMMENT ADEQUATE; POIKILOCYTOSIS SLIGHT; POLYCHROMASIA SLIGHT; SICKLE RED CELLS SLIGHT; TARGET CELLS SLIGHT; TEAR DROP CELLS SLIGHT; TOXIC VACUOLATION PRESENT
[2018-04-15 06:34] LABS: HEMOGLOBIN 5.8 g/dL (12.0-15.5)
[2018-04-15] MEDS: MULTIVITAMIN TABLET PO SCH (09:04)
[2018-04-15] MEDS: HYDROXYUREA 500 MG CAPSULE PO SCH ×2 (09:04→21:46)
[2018-04-15] MEDS: MORPHINE SULFATE SR 30 MG TABLET PO SCH ×2 (09:04→21:45)
[2018-04-15] MEDS: FOLIC ACID 1 MG TABLET PO SCH (09:05)
--- NOTE | 2018-04-15 17:22 | PDOC PROGRESS REPORT ---
Subjective Progress Note for:: 04/15/18 Subjective:: She is admitted for the management of severe vaso-occlusive crisis and hemolytic anemia for sickle cell disease Reason For Visit: SICK CELL, BONE PAIN CRISIS,HEMOLYTIC CRISIS, Physical Exam Vital Signs: Temp Pulse Resp BP Pulse Ox 100.2 F 104 H 16 94/51 L 94 04/15/18 16:00 04/15/18 16:00 04/15/18 16:00 04/15/18 16:00 04/15/18 11:41 Intake & Output 04/14/18 04/15/18 04/16/18 06:59 06:59 06:59 Intake Total 2674 4344 670 Output Total 2450 3000 Balance 224 1344 670 Weight 60.4 kg 64 kg General appearance: PRESENT: no acute distress Eye exam: PRESENT: PERRLA, scleral icterus Respiratory exam: PRESENT: clear to auscultation carolyn Cardiovascular exam: PRESENT: +S1, +S2 GI/Abdominal exam: PRESENT: soft Neurological exam: PRESENT: alert Results Laboratory Results: 04/15/18 05:40 04/15/18 05:40 04/15/18 04/15/18 05:40 05:40 WBC 7.9 RBC 1.40 L Hgb 5.8 L Hct 16.3 L MCV 117 H MCH 41.3 H MCHC 35.3 RDW 21.3 H Plt Count 280 Seg Neutrophils % Not Reportable Lymphocytes % Not Reportable Monocytes % Not Reportable Eosinophils % Not Reportable Basophils % Not Reportable Absolute Neutrophils Not Reportable Absolute Lymphocytes Not Reportable Absolute Monocytes Not Reportable Absolute Eosinophils Not Reportable Absolute Basophils Not Reportable Sodium 140.5 Potassium 4.3 Chloride 108 H Carbon Dioxide 23 Anion Gap 10 BUN 12 Creatinine 0.73 Est GFR ( Amer) > 60 Est GFR (Non-Af Amer) > 60 Glucose 102 Calcium 8.6 Total Bilirubin 5.2 H AST 48 H ALT 36 Alkaline Phosphatase 126 Total Protein 6.2 L Albumin 3.5 04/11/18 17:00 Clean Catch Midstream Urine Culture - Final Streptococcus Bovis Grp Impressions: Chest X-Ray 04/11/18 00:00 IMPRESSION: No significant interval change in the chest. Assessment & Plan - Diagnosis (1) Vasoocclusive sickle cell crisis Is this a current diagnosis for this admission?: Yes (2) Sickle cell hemolytic anemia Qualifiers: Sickle-cell associated disorders: with unspecified crisis Qualified Code(s) : D57.00 - Hb-SS disease with crisis, unspecified; D57.0 - Hb-SS disease with crisis Is this a current diagnosis for this admission?: Yes Plan: Continue treatment, hemoglobin 5.8 she may need blood transfusion
[2018-04-15] MEDS: RIVAROXABAN 10 MG TABLET PO SCH (17:50)
[2018-04-16] MEDS: HYDROMORPHONE HCL INJ/PF 2 MG/ML AMPULE IV PRN ×8 (01:06→23:28)
[2018-04-16] MEDS: PROMETHAZINE HCL INJ 25 MG/1 ML VIAL IV PRN ×4 (05:03→23:28)
[2018-04-16] MEDS: NORMAL SALINE 1000 ML 1,000 ML IV PRN ×2 (05:03→14:09)
[2018-04-16] MEDS: GABAPENTIN 300 MG CAPSULE PO SCH ×3 (05:04→21:48)
[2018-04-16 08:30] LABS: HEMATOCRIT 15.9 % (36.0-47.0); MEAN CORPUSCULAR HEMOGLOBIN 42.6 pg (27.0-33.4); MEAN CORPUSCULAR VOLUME 118 fl (80-97); PLATELET COUNT 290 10^3/uL (150-450); RED BLOOD COUNT 1.35 10^6/uL (3.72-5.28); WHITE BLOOD COUNT 6.1 10^3/uL (4.0-10.5)
[2018-04-16 08:36] LABS: ALANINE AMINOTRANSFERASE 44 U/L (9-52); ALBUMIN 3.4 g/dL (3.5-5.0); ALKALINE PHOSPHATASE 143 U/L (38-126); ANION GAP 9 (5-19); ASPARTATE AMINO TRANSFERASE 63 U/L (14-36); BILIRUBIN,DIRECT 1.1 mg/dL (0.0-0.4); BILIRUBIN,TOTAL 4.8 mg/dL (0.2-1.3); BLOOD UREA NITROGEN 9 mg/dL (7-20); CALCIUM 8.7 mg/dL (8.4-10.2); CARBON DIOXIDE 22 mmol/L (22-30); CHLORIDE 110 mmol/L (98-107); GLUCOSE 112 mg/dL (75-110); HEMOGLOBIN 5.7 g/dL (12.0-15.5); POTASSIUM 3.9 mmol/L (3.6-5.0); SODIUM 141.4 mmol/L (137-145); TOTAL PROTEIN 6.1 g/dL (6.3-8.2)
[2018-04-16 08:51] LABS: ABSOLUTE LYMPHOCYTES# (MANUAL) 2.3 10^3/uL (0.5-4.7); ABSOLUTE NEUTROPHILS# (MANUAL) 3.1 10^3/uL (1.7-8.2); BASOPHILS % (MANUAL) 0 % (0-2); EOSINOPHILS % (MANUAL) 11 % (0-6); LYMPHOCYTES % (MANUAL) 38 % (13-45); MONOCYTES % (MANUAL) 0 % (3-13); NUCLEATED RED BLOOD CELLS 12 /100 WBC (0); SEGMENTED NEUTROPHILS % (MAN) 51 % (42-78); TOTAL CELLS COUNTED 100
[2018-04-16 08:55] LABS: ANISOCYTOSIS 3+; OVALOCYTES 2+; PLATELET COMMENT ADEQUATE; POIKILOCYTOSIS 2+; POLYCHROMASIA SLIGHT; TEAR DROP CELLS SLIGHT; TOXIC GRANULATION 1+
[2018-04-16 08:56] LABS: PLATELET GIANT PRESENT
[2018-04-16] MEDS: HYDROXYUREA 500 MG CAPSULE PO SCH ×2 (10:15→21:47)
[2018-04-16] MEDS: MORPHINE SULFATE SR 30 MG TABLET PO SCH ×2 (10:15→21:47)
[2018-04-16] MEDS: MULTIVITAMIN TABLET PO SCH (10:15)
[2018-04-16] MEDS: FOLIC ACID 1 MG TABLET PO SCH (10:16)
[2018-04-16] MEDS ORDERED: NORMAL SALINE 250 ML IV PRN ×2 (15:11)
--- NOTE | 2018-04-16 15:11 | PDOC PROGRESS REPORT ---
Subjective Progress Note for:: 04/16/18 Subjective:: She has sickle cell hemolytic crisis, she does not need exchange blood transfusion at this time since there is no acute chest syndrome, she may require a unit of packed red blood cells Reason For Visit: SICK CELL, BONE PAIN CRISIS,HEMOLYTIC CRISIS, Physical Exam Vital Signs: Temp Pulse Resp BP Pulse Ox 99.6 F 86 20 101/49 L 93 04/16/18 12:24 04/16/18 14:00 04/16/18 12:24 04/16/18 12:24 04/16/18 12:24 Intake & Output 04/15/18 04/16/18 04/17/18 06:59 06:59 06:59 Intake Total 4344 3483 1350 Output Total 3000 2250 900 Balance 1344 1233 450 Weight 64 kg 64.7 kg General appearance: PRESENT: no acute distress Eye exam: PRESENT: PERRLA Respiratory exam: PRESENT: clear to auscultation carolyn Cardiovascular exam: PRESENT: +S1, +S2 GI/Abdominal exam: PRESENT: soft Results Laboratory Results: 04/16/18 08:00 04/16/18 08:00 04/16/18 04/16/18 08:00 08:00 WBC 6.1 RBC 1.35 L Hgb 5.7 L Hct 15.9 L MCV 118 H MCH 42.6 H MCHC 36.0 RDW 22.0 H Plt Count 290 Seg Neutrophils % Not Reportable Lymphocytes % Not Reportable Monocytes % Not Reportable Eosinophils % Not Reportable Basophils % Not Reportable Absolute Neutrophils Not Reportable Absolute Lymphocytes Not Reportable Absolute Monocytes Not Reportable Absolute Eosinophils Not Reportable Absolute Basophils Not Reportable Sodium 141.4 Potassium 3.9 Chloride 110 H Carbon Dioxide 22 Anion Gap 9 BUN 9 Creatinine 0.51 L Est GFR ( Amer) > 60 Est GFR (Non-Af Amer) > 60 Glucose 112 H Calcium 8.7 Total Bilirubin 4.8 H AST 63 H ALT 44 Alkaline Phosphatase 143 H Total Protein 6.1 L Albumin 3.4 L Impressions: Chest X-Ray 04/11/18 00:00 IMPRESSION: No significant interval change in the chest. Assessment & Plan - Diagnosis (1) Vasoocclusive sickle cell crisis Is this a current diagnosis for this admission?: Yes (2) Sickle cell hemolytic anemia Qualifiers: Sickle-cell associated disorders: with unspecified crisis Qualified Code(s) : D57.00 - Hb-SS disease with crisis, unspecified; D57.0 - Hb-SS disease with crisis Is this a current diagnosis for this admission?: Yes Plan: Transfuse 1 unit of packed red blood cells
[2018-04-16 15:27] LABS: ABSOLUTE RETICS # 0.091 10^6/uL (0.028-0.122); RETICULOCYTE COUNT (AUTO) 6.71 % (0.66-2.85)
[2018-04-16 15:48] LABS: IRON(TIBC) 168.2 ug/dL (37-170)
[2018-04-16] MEDS: RIVAROXABAN 10 MG TABLET PO SCH (19:03)
[2018-04-16] MEDS: ACETAMINOPHEN 325 MG TABLET PO PRN (20:33)
[2018-04-16 21:19] LABS: HEMATOCRIT 19.3 % (36.0-47.0); MEAN CORPUSCULAR HEMOGLOBIN 39.6 pg (27.0-33.4); MEAN CORPUSCULAR HGB CONC 35.8 g/dL (32.0-36.0); PLATELET COUNT 305 10^3/uL (150-450); RED BLOOD COUNT 1.75 10^6/uL (3.72-5.28); WHITE BLOOD COUNT 5.7 10^3/uL (4.0-10.5)
[2018-04-16 21:44] LABS: HEMOGLOBIN 6.9 g/dL (12.0-15.5)
[2018-04-16 21:52] LABS: ABSOLUTE LYMPHOCYTES# (MANUAL) 2.2 10^3/uL (0.5-4.7); ABSOLUTE MONOCYTES # (MANUAL) 0.5 10^3/uL (0.1-1.4); ABSOLUTE NEUTROPHILS# (MANUAL) 2.7 10^3/uL (1.7-8.2); BASOPHILS % (MANUAL) 0 % (0-2); EOSINOPHILS % (MANUAL) 6 % (0-6); LYMPHOCYTES % (MANUAL) 38 % (13-45); MONOCYTES % (MANUAL) 8 % (3-13); SEGMENTED NEUTROPHILS % (MAN) 48 % (42-78); TOTAL CELLS COUNTED 100
[2018-04-16 21:55] LABS: ANISOCYTOSIS 4+; BURR CELLS 2+; HYPOCHROMASIA 1+; PLATELET COMMENT ADEQUATE; POLYCHROMASIA 2+; SICKLE RED CELLS 1+; TARGET CELLS 1+
[2018-04-16 21:58] LABS: MEAN CORPUSCULAR VOLUME 110 fl (80-97)
[2018-04-17] MEDS: HYDROMORPHONE HCL INJ/PF 2 MG/ML AMPULE IV PRN ×7 (02:44→21:45)
[2018-04-17] MEDS: NORMAL SALINE 1000 ML 1,000 ML IV PRN ×2 (02:49→14:15)
[2018-04-17] MEDS: PROMETHAZINE HCL INJ 25 MG/1 ML VIAL IV PRN ×3 (05:34→18:43)
[2018-04-17] MEDS: GABAPENTIN 300 MG CAPSULE PO SCH ×3 (05:34→21:46)
[2018-04-17 07:44] LABS: NUCLEATED RED BLOOD CELLS 34 /100 WBC (0)
[2018-04-17] MEDS: OXYCODONE HCL IR 5 MG TABLET PO PRN (07:45)
[2018-04-17 08:19] LABS: MEAN CORPUSCULAR HEMOGLOBIN 39.9 pg (27.0-33.4); MEAN CORPUSCULAR HGB CONC 36.4 g/dL (32.0-36.0); MEAN CORPUSCULAR VOLUME 110 fl (80-97); PLATELET COUNT 298 10^3/uL (150-450); RED BLOOD COUNT 1.74 10^6/uL (3.72-5.28); WHITE BLOOD COUNT 4.8 10^3/uL (4.0-10.5)
[2018-04-17 08:43] LABS: ALANINE AMINOTRANSFERASE 51 U/L (9-52); ALBUMIN 3.8 g/dL (3.5-5.0); ALKALINE PHOSPHATASE 128 U/L (38-126); ANION GAP 10 (5-19); ASPARTATE AMINO TRANSFERASE 75 U/L (14-36); BILIRUBIN,DIRECT 1.1 mg/dL (0.0-0.4); BILIRUBIN,TOTAL 4.8 mg/dL (0.2-1.3); BLOOD UREA NITROGEN 8 mg/dL (7-20); CALCIUM 8.9 mg/dL (8.4-10.2); CARBON DIOXIDE 25 mmol/L (22-30); CHLORIDE 107 mmol/L (98-107); GLUCOSE 93 mg/dL (75-110); POTASSIUM 4.3 mmol/L (3.6-5.0); TOTAL PROTEIN 6.4 g/dL (6.3-8.2)
[2018-04-17 08:53] LABS: HEMOGLOBIN 6.9 g/dL (12.0-15.5)
[2018-04-17 09:01] LABS: ABSOLUTE LYMPHOCYTES# (MANUAL) 2.1 10^3/uL (0.5-4.7); ABSOLUTE MONOCYTES # (MANUAL) 0.2 10^3/uL (0.1-1.4); ABSOLUTE NEUTROPHILS# (MANUAL) 2.1 10^3/uL (1.7-8.2); BASOPHILS % (MANUAL) 0 % (0-2); EOSINOPHILS % (MANUAL) 9 % (0-6); LYMPHOCYTES % (MANUAL) 43 % (13-45); MONOCYTES % (MANUAL) 5 % (3-13); NUCLEATED RED BLOOD CELLS 11 /100 WBC (0); SEGMENTED NEUTROPHILS % (MAN) 43 % (42-78); TOTAL CELLS COUNTED 100
[2018-04-17 09:13] LABS: TOXIC GRANULATION SLIGHT; TOXIC VACUOLATION PRESENT
[2018-04-17 09:14] LABS: ANISOCYTOSIS 3+; HYPOCHROMASIA 1+; OVALOCYTES 1+; PLATELET COMMENT ADEQUATE; POIKILOCYTOSIS 2+; POLYCHROMASIA 2+; SICKLE RED CELLS 1+; TARGET CELLS 1+
[2018-04-17] MEDS: MORPHINE SULFATE SR 30 MG TABLET PO SCH ×2 (10:12→21:46)
[2018-04-17] MEDS: HYDROXYUREA 500 MG CAPSULE PO SCH ×2 (10:12→21:46)
[2018-04-17] MEDS: FOLIC ACID 1 MG TABLET PO SCH (10:12)
[2018-04-17] MEDS: MULTIVITAMIN TABLET PO SCH (10:12)
[2018-04-17] MEDS: RIVAROXABAN 10 MG TABLET PO SCH (17:18)
--- NOTE | 2018-04-17 21:05 | PDOC PROGRESS REPORT ---
Subjective Progress Note for:: 04/17/18 Subjective:: ,Patient was seen by the bedside, she is very upset, she continues to complain of pain, bone pain, complaint of bone pains, swelling of the low back, advised to get a bone scan, part of the pain could be from bone infarct Reason For Visit: SICK CELL, BONE PAIN CRISIS,HEMOLYTIC CRISIS, Physical Exam Vital Signs: Temp Pulse Resp BP Pulse Ox 99.8 F 105 H 18 92/52 L 100 04/17/18 16:21 04/17/18 19:00 04/17/18 16:21 04/17/18 16:21 04/17/18 16:21 Intake & Output 04/16/18 04/17/18 04/18/18 06:59 06:59 06:59 Intake Total 3483 3772 1799 Output Total 2250 4300 4800 Balance 1233 -130 -3001 Weight 64.7 kg General appearance: PRESENT: no acute distress Eye exam: PRESENT: PERRLA Respiratory exam: PRESENT: clear to auscultation carolyn Cardiovascular exam: PRESENT: +S1, +S2 GI/Abdominal exam: PRESENT: soft Neurological exam: PRESENT: alert Results Laboratory Results: 04/17/18 07:49 04/17/18 07:49 04/16/18 04/17/18 04/17/18 20:50 07:49 07:49 WBC 5.7 4.8 RBC 1.75 L 1.74 L Hgb 6.9 L 6.9 L Hct 19.3 L 19.0 L MCV 110 H D 110 H MCH 39.6 H 39.9 H MCHC 35.8 36.4 H RDW 28.0 H 28.0 H Plt Count 305 298 Seg Neutrophils % Not Reportable Not Reportable Lymphocytes % Not Reportable Not Reportable Monocytes % Not Reportable Not Reportable Eosinophils % Not Reportable Not Reportable Basophils % Not Reportable Not Reportable Absolute Neutrophils Not Reportable Not Reportable Absolute Lymphocytes Not Reportable Not Reportable Absolute Monocytes Not Reportable Not Reportable Absolute Eosinophils Not Reportable Not Reportable Absolute Basophils Not Reportable Not Reportable Sodium 142.0 Potassium 4.3 Chloride 107 Carbon Dioxide 25 Anion Gap 10 BUN 8 Creatinine 0.63 Est GFR ( Amer) > 60 Est GFR (Non-Af Amer) > 60 Glucose 93 Calcium 8.9 Total Bilirubin 4.8 H AST 75 H ALT 51 Alkaline Phosphatase 128 H Total Protein 6.4 Albumin 3.8 04/11/18 18:57 Blood Blood Culture - Final NO GROWTH IN 5 DAYS 04/11/18 18:45 Blood Blood Culture - Final NO GROWTH IN 5 DAYS Impressions: Chest X-Ray 04/11/18 00:00 IMPRESSION: No significant interval change in the chest. Assessment & Plan - Diagnosis (1) Vasoocclusive sickle cell crisis Is this a current diagnosis for this admission?: Yes Plan: Get a bone scan (2) Sickle cell hemolytic anemia Qualifiers: Sickle-cell associated disorders: with unspecified crisis Qualified Code(s) : D57.00 - Hb-SS disease with crisis, unspecified; D57.0 - Hb-SS disease with crisis Is this a current diagnosis for this admission?: Yes
[2018-04-18] MEDS: NORMAL SALINE 1000 ML 1,000 ML IV PRN ×3 (00:23→23:45)
[2018-04-18] MEDS: OXYCODONE HCL IR 5 MG TABLET PO PRN ×4 (01:41→22:37)
[2018-04-18] MEDS: PROMETHAZINE HCL INJ 25 MG/1 ML VIAL IV PRN ×4 (01:41→22:37)
[2018-04-18] MEDS: HYDROMORPHONE HCL INJ/PF 2 MG/ML AMPULE IV PRN ×6 (01:41→18:46)
[2018-04-18] MEDS: GABAPENTIN 300 MG CAPSULE PO SCH ×3 (05:04→22:38)
[2018-04-18 08:49] LABS: HEMATOCRIT 18.8 % (36.0-47.0); MEAN CORPUSCULAR HGB CONC 35.3 g/dL (32.0-36.0); MEAN CORPUSCULAR VOLUME 111 fl (80-97); PLATELET COUNT 275 10^3/uL (150-450); RED CELL DISTRIBUTION WIDTH 27.7 % (11.5-14.0); WHITE BLOOD COUNT 4.8 10^3/uL (4.0-10.5)
[2018-04-18 09:09] LABS: ALANINE AMINOTRANSFERASE 58 U/L (9-52); ALBUMIN 3.7 g/dL (3.5-5.0); ALKALINE PHOSPHATASE 118 U/L (38-126); ANION GAP 10 (5-19); ASPARTATE AMINO TRANSFERASE 86 U/L (14-36); BILIRUBIN,DIRECT 1.1 mg/dL (0.0-0.4); BILIRUBIN,TOTAL 3.8 mg/dL (0.2-1.3); BLOOD UREA NITROGEN 9 mg/dL (7-20); CALCIUM 8.6 mg/dL (8.4-10.2); CARBON DIOXIDE 26 mmol/L (22-30); CHLORIDE 105 mmol/L (98-107); GLUCOSE 95 mg/dL (75-110); SODIUM 141.3 mmol/L (137-145); TOTAL PROTEIN 6.3 g/dL (6.3-8.2)
[2018-04-18 09:53] LABS: ABSOLUTE MONOCYTES # (MANUAL) 0.4 10^3/uL (0.1-1.4); ABSOLUTE NEUTROPHILS# (MANUAL) 1.2 10^3/uL (1.7-8.2); BASOPHILS % (MANUAL) 0 % (0-2); EOSINOPHILS % (MANUAL) 6 % (0-6); LYMPHOCYTES % (MANUAL) 62 % (13-45); MONOCYTES % (MANUAL) 8 % (3-13); NUCLEATED RED BLOOD CELLS 29 /100 WBC (0); SEGMENTED NEUTROPHILS % (MAN) 24 % (42-78); TOTAL CELLS COUNTED 100
[2018-04-18 09:55] LABS: ANISOCYTOSIS 3+; PLATELET COMMENT ADEQUATE; POLYCHROMASIA SLIGHT; SCHISTOCYTES SLIGHT; SICKLE RED CELLS 1+; TARGET CELLS SLIGHT
[2018-04-18 09:56] LABS: HEMOGLOBIN 6.6 g/dL (12.0-15.5)
[2018-04-18] MEDS: MORPHINE SULFATE SR 30 MG TABLET PO SCH ×2 (11:05→22:38)
[2018-04-18] MEDS: FOLIC ACID 1 MG TABLET PO SCH (11:06)
[2018-04-18] MEDS: HYDROXYUREA 500 MG CAPSULE PO SCH ×2 (11:06→22:38)
[2018-04-18] MEDS: MULTIVITAMIN TABLET PO SCH (11:06)
--- NOTE | 2018-04-18 16:49 | RADIOLOGY REPORT (SQ) ---
EXAM DESCRIPTION: NM WHOLE BODY BONE SCAN COMPLETED DATE/TIME: 04/18/2018 4:36 pm REASON FOR STUDY: bone pain COMPARISON: 01/29/2011. RADIONUCLIDE AND DOSE: 18.8 millicuries Tc99m HDP. The route of agent administration: Intravenous. ADDITIONAL DRUGS AND DOSES: None. TECHNIQUE: Routine delayed images at 3 hour post radionuclide injection acquired of the bony skeleto n including anterior and posterior whole-body projections and additional focused images as needed. LIMITATIONS: None. FINDINGS: BONES: Focal activity at the base of the left thumb. Otherwise normal visualization witho ut areas of photopenia or increased bony uptake of radiopharmaceutical. KIDNEYS: Symmetric excretion without obstruction. OTHER: No other significant finding. IMPRESSION: FOCAL ACTIVITY AT THE BASE OF THE LEFT THUMB CONSISTENT WITH DEGENERATIVE CHANGE. OTHER [place] UNREMARKABLE BONE SCAN. COMMENT: Quality measure 147: Current bone scan is compared with any available plain radiographs, p rior bone scans, and CT/MRI. TECHNICAL DOCUMENTATION: JOB ID: [id number] [employer]- All Rights Reserved Reading location - IP/workstation name: [email or web address]
[2018-04-18] MEDS: RIVAROXABAN 10 MG TABLET PO SCH (17:35)
--- NOTE | 2018-04-18 21:17 | PDOC PROGRESS REPORT ---
Subjective Progress Note for:: 04/18/18 Subjective:: She was seen by the bedside, the bone scan that was done did not show significant lesion Reason For Visit: SICK CELL, BONE PAIN CRISIS,HEMOLYTIC CRISIS, Physical Exam Vital Signs: Temp Pulse Resp BP Pulse Ox 99.5 F 90 20 106/58 L 100 04/18/18 16:30 04/18/18 16:30 04/18/18 16:30 04/18/18 16:30 04/18/18 16:30 Intake & Output 04/17/18 04/18/18 04/19/18 06:59 06:59 06:59 Intake Total 3772 3021 1444 Output Total 4300 7200 900 Balance -528 -5442 544 Weight 63.7 kg General appearance: PRESENT: no acute distress Neck exam: PRESENT: full ROM Respiratory exam: PRESENT: clear to auscultation carolyn Cardiovascular exam: PRESENT: +S1, +S2 Vascular exam: PRESENT: normal capillary refill GI/Abdominal exam: PRESENT: soft Rectal exam: PRESENT: deferred Neurological exam: PRESENT: alert, CN II-XII grossly intact Skin exam: PRESENT: dry, intact, warm Results Laboratory Results: 04/18/18 08:04 04/18/18 08:04 04/18/18 04/18/18 08:04 08:04 WBC 4.8 RBC 1.70 L Hgb 6.6 L Hct 18.8 L MCV 111 H MCH 39.0 H MCHC 35.3 RDW 27.7 H Plt Count 275 Seg Neutrophils % Not Reportable Lymphocytes % Not Reportable Monocytes % Not Reportable Eosinophils % Not Reportable Basophils % Not Reportable Absolute Neutrophils Not Reportable Absolute Lymphocytes Not Reportable Absolute Monocytes Not Reportable Absolute Eosinophils Not Reportable Absolute Basophils Not Reportable Sodium 141.3 Potassium 4.0 Chloride 105 Carbon Dioxide 26 Anion Gap 10 BUN 9 Creatinine 0.62 Est GFR ( Amer) > 60 Est GFR (Non-Af Amer) > 60 Glucose 95 Calcium 8.6 Total Bilirubin 3.8 H AST 86 H ALT 58 H Alkaline Phosphatase 118 Total Protein 6.3 Albumin 3.7 Impressions: Chest X-Ray 04/11/18 00:00 IMPRESSION: No significant interval change in the chest. Body Scan Nuclear Medicine 04/17/18 00:00 IMPRESSION: FOCAL ACTIVITY AT THE BASE OF THE LEFT THUMB CONSISTENT WITH DEGENERATIVE CHANGE. OTHERWISE UNREMARKABLE BONE SCAN. Assessment & Plan - Diagnosis (1) Vasoocclusive sickle cell crisis Is this a current diagnosis for this admission?: Yes Plan: Continue present treatment (2) Sickle cell hemolytic anemia Qualifiers: Sickle-cell associated disorders: with unspecified crisis Qualified Code(s) : D57.00 - Hb-SS disease with crisis, unspecified; D57.0 - Hb-SS disease with crisis Is this a current diagnosis for this admission?: Yes
[2018-04-19] MEDS: HYDROMORPHONE HCL INJ/PF 2 MG/ML AMPULE IV PRN ×8 (00:31→21:57)
[2018-04-19] MEDS: ACETAMINOPHEN 325 MG TABLET PO PRN (00:53)
[2018-04-19] MEDS: GABAPENTIN 300 MG CAPSULE PO SCH ×3 (06:42→22:02)
[2018-04-19] MEDS: PROMETHAZINE HCL INJ 25 MG/1 ML VIAL IV PRN ×3 (06:42→19:01)
[2018-04-19 08:19] LABS: MEAN CORPUSCULAR HEMOGLOBIN 38.7 pg (27.0-33.4); MEAN CORPUSCULAR HGB CONC 35.1 g/dL (32.0-36.0); MEAN CORPUSCULAR VOLUME 110 fl (80-97); PLATELET COUNT 246 10^3/uL (150-450); RED BLOOD COUNT 1.54 10^6/uL (3.72-5.28); RED CELL DISTRIBUTION WIDTH 27.1 % (11.5-14.0); WHITE BLOOD COUNT 6.1 10^3/uL (4.0-10.5)
[2018-04-19 08:28] LABS: ALANINE AMINOTRANSFERASE 60 U/L (9-52); ALBUMIN 3.5 g/dL (3.5-5.0); ALKALINE PHOSPHATASE 131 U/L (38-126); ANION GAP 9 (5-19); ASPARTATE AMINO TRANSFERASE 79 U/L (14-36); BILIRUBIN,TOTAL 3.2 mg/dL (0.2-1.3); BLOOD UREA NITROGEN 10 mg/dL (7-20); CALCIUM 8.5 mg/dL (8.4-10.2); CARBON DIOXIDE 25 mmol/L (22-30); CHLORIDE 107 mmol/L (98-107); GLUCOSE 105 mg/dL (75-110); POTASSIUM 4.2 mmol/L (3.6-5.0); SODIUM 140.7 mmol/L (137-145); TOTAL PROTEIN 6.1 g/dL (6.3-8.2)
[2018-04-19 09:01] LABS: ABSOLUTE LYMPHOCYTES# (MANUAL) 3.2 10^3/uL (0.5-4.7); ABSOLUTE MONOCYTES # (MANUAL) 0.8 10^3/uL (0.1-1.4); ABSOLUTE NEUTROPHILS# (MANUAL) 1.6 10^3/uL (1.7-8.2); BASOPHILS % (MANUAL) 2 % (0-2); EOSINOPHILS % (MANUAL) 7 % (0-6); LYMPHOCYTES % (MANUAL) 52 % (13-45); MONOCYTES % (MANUAL) 13 % (3-13); NUCLEATED RED BLOOD CELLS 10 /100 WBC (0); SEGMENTED NEUTROPHILS % (MAN) 26 % (42-78); TOTAL CELLS COUNTED 100
[2018-04-19 09:02] LABS: ANISOCYTOSIS 3+; HYPERSEGMENTED NEUTROPHILS PRESENT; PLATELET COMMENT ADEQUATE; POIKILOCYTOSIS 2+; POLYCHROMASIA 2+; TOXIC GRANULATION SLIGHT; TOXIC VACUOLATION PRESENT
[2018-04-19 09:03] LABS: OVALOCYTES 1+; SCHISTOCYTES SLIGHT; TARGET CELLS SLIGHT
[2018-04-19] MEDS: FOLIC ACID 1 MG TABLET PO SCH (09:28)
[2018-04-19] MEDS: MULTIVITAMIN TABLET PO SCH (09:28)
[2018-04-19] MEDS: MORPHINE SULFATE SR 30 MG TABLET PO SCH ×2 (09:28→22:01)
[2018-04-19] MEDS: HYDROXYUREA 500 MG CAPSULE PO SCH ×2 (09:29→22:01)
[2018-04-19] MEDS: NORMAL SALINE 1000 ML 1,000 ML IV PRN (09:36)
--- NOTE | 2018-04-19 16:57 | PDOC PROGRESS REPORT ---
Subjective Progress Note for:: 04/19/18 Subjective:: She was seen by the bedside, she continues to have pain Reason For Visit: SICK CELL, BONE PAIN CRISIS,HEMOLYTIC CRISIS, Physical Exam Vital Signs: Temp Pulse Resp BP Pulse Ox 99.4 F 79 20 92/53 L 100 04/19/18 15:07 04/19/18 15:07 04/19/18 15:07 04/19/18 15:07 04/19/18 15:07 Intake & Output 04/18/18 04/19/18 04/20/18 06:59 06:59 06:59 Intake Total 3021 3110 1479 Output Total 7200 3050 500 Balance -4179 60 979 Weight 63.7 kg 66.9 kg General appearance: PRESENT: no acute distress Eye exam: PRESENT: PERRLA Respiratory exam: PRESENT: clear to auscultation carolyn Cardiovascular exam: PRESENT: +S1, +S2 GI/Abdominal exam: PRESENT: soft Neurological exam: PRESENT: alert Results Laboratory Results: 04/19/18 06:50 04/19/18 06:50 04/19/18 04/19/18 06:50 06:50 WBC 6.1 RBC 1.54 L Hgb 6.0 L Hct 17.0 L MCV 110 H MCH 38.7 H MCHC 35.1 RDW 27.1 H Plt Count 246 Seg Neutrophils % Not Reportable Lymphocytes % Not Reportable Monocytes % Not Reportable Eosinophils % Not Reportable Basophils % Not Reportable Absolute Neutrophils Not Reportable Absolute Lymphocytes Not Reportable Absolute Monocytes Not Reportable Absolute Eosinophils Not Reportable Absolute Basophils Not Reportable Sodium 140.7 Potassium 4.2 Chloride 107 Carbon Dioxide 25 Anion Gap 9 BUN 10 Creatinine 0.66 Est GFR ( Amer) > 60 Est GFR (Non-Af Amer) > 60 Glucose 105 Calcium 8.5 Total Bilirubin 3.2 H AST 79 H ALT 60 H Alkaline Phosphatase 131 H Total Protein 6.1 L Albumin 3.5 Impressions: Chest X-Ray 04/11/18 00:00 IMPRESSION: No significant interval change in the chest. Body Scan Nuclear Medicine 04/17/18 00:00 IMPRESSION: FOCAL ACTIVITY AT THE BASE OF THE LEFT THUMB CONSISTENT WITH DEGENERATIVE CHANGE. OTHERWISE UNREMARKABLE BONE SCAN. Assessment & Plan - Diagnosis (1) Vasoocclusive sickle cell crisis Is this a current diagnosis for this admission?: Yes (2) Sickle cell hemolytic anemia Qualifiers: Sickle-cell associated disorders: with unspecified crisis Qualified Code(s) : D57.00 - Hb-SS disease with crisis, unspecified; D57.0 - Hb-SS disease with crisis Is this a current diagnosis for this admission?: Yes - Plan Summary Plan Summary: Continue IV therapy, fluid and opioid
[2018-04-19] MEDS: RIVAROXABAN 10 MG TABLET PO SCH (19:02)
[2018-04-20] MEDS: PROMETHAZINE HCL INJ 25 MG/1 ML VIAL IV PRN ×4 (01:00→19:19)
[2018-04-20] MEDS: HYDROMORPHONE HCL INJ/PF 2 MG/ML AMPULE IV PRN ×8 (01:01→22:38)
[2018-04-20] MEDS: NORMAL SALINE 1000 ML 1,000 ML IV PRN (06:52)
[2018-04-20] MEDS: GABAPENTIN 300 MG CAPSULE PO SCH ×3 (06:53→21:04)
[2018-04-20 06:58] LABS: ALANINE AMINOTRANSFERASE 58 U/L (9-52); ALBUMIN 3.3 g/dL (3.5-5.0); ALKALINE PHOSPHATASE 120 U/L (38-126); ANION GAP 8 (5-19); ASPARTATE AMINO TRANSFERASE 77 U/L (14-36); BILIRUBIN,DIRECT 0.7 mg/dL (0.0-0.4); BLOOD UREA NITROGEN 9 mg/dL (7-20); CALCIUM 8.5 mg/dL (8.4-10.2); CARBON DIOXIDE 26 mmol/L (22-30); CHLORIDE 106 mmol/L (98-107); GLUCOSE 111 mg/dL (75-110); POTASSIUM 4.1 mmol/L (3.6-5.0); TOTAL PROTEIN 5.6 g/dL (6.3-8.2)
[2018-04-20 06:59] LABS: HEMATOCRIT 16.5 % (36.0-47.0); MEAN CORPUSCULAR HGB CONC 35.2 g/dL (32.0-36.0); MEAN CORPUSCULAR VOLUME 111 fl (80-97); PLATELET COUNT 226 10^3/uL (150-450); RED BLOOD COUNT 1.49 10^6/uL (3.72-5.28); RED CELL DISTRIBUTION WIDTH 26.9 % (11.5-14.0); WHITE BLOOD COUNT 4.7 10^3/uL (4.0-10.5)
[2018-04-20 07:31] LABS: HEMOGLOBIN 5.8 g/dL (12.0-15.5)
[2018-04-20 07:39] LABS: ABSOLUTE LYMPHOCYTES# (MANUAL) 2.7 10^3/uL (0.5-4.7); ABSOLUTE MONOCYTES # (MANUAL) 0.1 10^3/uL (0.1-1.4); ABSOLUTE NEUTROPHILS# (MANUAL) 1.8 10^3/uL (1.7-8.2); BASOPHILS % (MANUAL) 0 % (0-2); EOSINOPHILS % (MANUAL) 3 % (0-6); LYMPHOCYTES % (MANUAL) 57 % (13-45); MONOCYTES % (MANUAL) 2 % (3-13); NUCLEATED RED BLOOD CELLS 9 /100 WBC (0); SEGMENTED NEUTROPHILS % (MAN) 38 % (42-78); TOTAL CELLS COUNTED 100
[2018-04-20 07:41] LABS: POIKILOCYTOSIS 2+; SCHISTOCYTES 1+
[2018-04-20 07:42] LABS: ANISOCYTOSIS 3+; HYPERSEGMENTED NEUTROPHILS PRESENT; OVALOCYTES 1+; PLATELET COMMENT ADEQUATE; POLYCHROMASIA 3+; SICKLE RED CELLS 1+; TOXIC GRANULATION SLIGHT
[2018-04-20 07:43] LABS: HYPOCHROMASIA 2+
[2018-04-20] MEDS: MULTIVITAMIN TABLET PO SCH (09:19)
[2018-04-20] MEDS: FOLIC ACID 1 MG TABLET PO SCH (09:19)
[2018-04-20] MEDS: HYDROXYUREA 500 MG CAPSULE PO SCH ×2 (09:19→21:04)
[2018-04-20] MEDS: MORPHINE SULFATE SR 30 MG TABLET PO SCH ×2 (09:19→21:55)
[2018-04-20] MEDS: RIVAROXABAN 10 MG TABLET PO SCH (17:01)
[2018-04-20] MEDS: NORMAL SALINE 1000 ML 1,000 ML with POTASSIUM CHLORIDE 20 MEQ, MAGNESIUM SULFATE 8 MEQ,... IV SCH ×5 (17:02)
--- NOTE | 2018-04-20 20:11 | PDOC PROGRESS REPORT ---
Subjective Progress Note for:: 04/20/18 Subjective:: Patient seen by the bedside, hemoglobin is 5.8 Reason For Visit: SICK CELL, BONE PAIN CRISIS,HEMOLYTIC CRISIS, Physical Exam Vital Signs: Temp Pulse Resp BP Pulse Ox 98.4 F 79 20 101/57 L 100 04/20/18 19:33 04/20/18 19:33 04/20/18 19:33 04/20/18 19:33 04/20/18 19:33 Intake & Output 04/19/18 04/20/18 04/21/18 06:59 06:59 06:59 Intake Total 3110 2701 2166 Output Total 3050 4650 1900 Balance 60 -1949 266 Weight 66.9 kg 66.7 kg General appearance: PRESENT: no acute distress Eye exam: PRESENT: PERRLA Respiratory exam: PRESENT: clear to auscultation carolyn Cardiovascular exam: PRESENT: +S1, +S2 GI/Abdominal exam: PRESENT: soft Neurological exam: PRESENT: alert Results Laboratory Results: 04/20/18 06:30 04/20/18 06:30 04/20/18 04/20/18 04/20/18 06:30 06:30 18:15 WBC 4.7 RBC 1.49 L Hgb 5.8 L Hct 16.5 L MCV 111 H MCH 39.0 H MCHC 35.2 RDW 26.9 H Plt Count 226 Seg Neutrophils % Not Reportable Lymphocytes % Not Reportable Monocytes % Not Reportable Eosinophils % Not Reportable Basophils % Not Reportable Absolute Neutrophils Not Reportable Absolute Lymphocytes Not Reportable Absolute Monocytes Not Reportable Absolute Eosinophils Not Reportable Absolute Basophils Not Reportable Sodium 140.0 Potassium 4.1 Chloride 106 Carbon Dioxide 26 Anion Gap 8 BUN 9 Creatinine 0.53 Est GFR ( Amer) > 60 Est GFR (Non-Af Amer) > 60 Glucose 111 H Calcium 8.5 Total Bilirubin 3.0 H AST 77 H ALT 58 H Alkaline Phosphatase 120 Total Protein 5.6 L Albumin 3.3 L Blood Type O POSITIVE Antibody Screen NEGATIVE Impressions: Chest X-Ray 04/11/18 00:00 IMPRESSION: No significant interval change in the chest. Body Scan Nuclear Medicine 04/17/18 00:00 IMPRESSION: FOCAL ACTIVITY AT THE BASE OF THE LEFT THUMB CONSISTENT WITH DEGENERATIVE CHANGE. OTHERWISE UNREMARKABLE BONE SCAN. Assessment & Plan - Diagnosis (1) Vasoocclusive sickle cell crisis Is this a current diagnosis for this admission?: Yes (2) Sickle cell hemolytic anemia Qualifiers: Sickle-cell associated disorders: with unspecified crisis Qualified Code(s) : D57.00 - Hb-SS disease with crisis, unspecified; D57.0 - Hb-SS disease with crisis Is this a current diagnosis for this admission?: Yes - Plan Summary Plan Summary: Transfuse with packed red blood cells
[2018-04-21] MEDS: HYDROMORPHONE HCL INJ/PF 2 MG/ML AMPULE IV PRN ×8 (01:42→23:12)
[2018-04-21] MEDS: PROMETHAZINE HCL INJ 25 MG/1 ML VIAL IV PRN ×4 (01:43→20:12)
[2018-04-21 03:20] LABS: MEAN CORPUSCULAR HEMOGLOBIN 37.6 pg (27.0-33.4); MEAN CORPUSCULAR HGB CONC 35.6 g/dL (32.0-36.0); PLATELET COUNT 246 10^3/uL (150-450); RED CELL DISTRIBUTION WIDTH 27.4 % (11.5-14.0)
[2018-04-21 03:37] LABS: ALANINE AMINOTRANSFERASE 56 U/L (9-52); ALBUMIN 3.6 g/dL (3.5-5.0); ALKALINE PHOSPHATASE 144 U/L (38-126); ANION GAP 11 (5-19); ASPARTATE AMINO TRANSFERASE 87 U/L (14-36); BILIRUBIN,DIRECT 0.7 mg/dL (0.0-0.4); BILIRUBIN,TOTAL 3.2 mg/dL (0.2-1.3); BLOOD UREA NITROGEN 10 mg/dL (7-20); CALCIUM 8.7 mg/dL (8.4-10.2); CARBON DIOXIDE 26 mmol/L (22-30); CHLORIDE 106 mmol/L (98-107); GLUCOSE 135 mg/dL (75-110); POTASSIUM 4.2 mmol/L (3.6-5.0); SODIUM 142.6 mmol/L (137-145); TOTAL PROTEIN 6.3 g/dL (6.3-8.2)
[2018-04-21 03:41] LABS: MEAN CORPUSCULAR VOLUME 106 fl (80-97); WHITE BLOOD COUNT 5.7 10^3/uL (4.0-10.5)
[2018-04-21 03:42] LABS: HEMOGLOBIN 7.1 g/dL (12.0-15.5)
[2018-04-21] MEDS: GABAPENTIN 300 MG CAPSULE PO SCH ×3 (05:03→22:24)
[2018-04-21] MEDS: NORMAL SALINE 1000 ML 1,000 ML IV PRN (06:15)
[2018-04-21] MEDS: HYDROXYUREA 500 MG CAPSULE PO SCH ×2 (11:05→22:24)
[2018-04-21] MEDS: MULTIVITAMIN TABLET PO SCH (11:06)
[2018-04-21] MEDS: FOLIC ACID 1 MG TABLET PO SCH (11:06)
[2018-04-21] MEDS: MORPHINE SULFATE SR 30 MG TABLET PO SCH ×2 (12:09→22:24)
[2018-04-21] MEDS: NORMAL SALINE 1000 ML 1,000 ML with POTASSIUM CHLORIDE 20 MEQ, MAGNESIUM SULFATE 8 MEQ,... IV SCH ×5 (17:49)
[2018-04-21] MEDS: RIVAROXABAN 10 MG TABLET PO SCH (17:49)
--- NOTE | 2018-04-21 19:42 | PDOC PROGRESS REPORT ---
Subjective Progress Note for:: 04/21/18 Subjective:: Patient seen by the bedside, she was admitted for the management of vaso- occlusive bone pain crisis, hemolytic anemia Reason For Visit: SICK CELL, BONE PAIN CRISIS,HEMOLYTIC CRISIS, Physical Exam Vital Signs: Temp Pulse Resp BP Pulse Ox 98.1 F 74 18 95/54 L 100 04/21/18 16:13 04/21/18 16:13 04/21/18 16:13 04/21/18 16:13 04/21/18 16:13 Intake & Output 04/20/18 04/21/18 04/22/18 06:59 06:59 06:59 Intake Total 2701 3539 1200 Output Total 5446 2450 1999 Balance -1949 -211 -800 Weight 66.7 kg 67 kg General appearance: PRESENT: no acute distress Eye exam: PRESENT: PERRLA Respiratory exam: PRESENT: clear to auscultation carolyn Cardiovascular exam: PRESENT: +S1, +S2 Neurological exam: PRESENT: alert, CN II-XII grossly intact Results Laboratory Results: 04/21/18 03:11 04/21/18 03:11 04/20/18 04/21/18 04/21/18 18:15 03:11 03:11 WBC 5.7 RBC 1.90 L Hgb 7.1 L Hct 20.0 L MCV 106 H D MCH 37.6 H MCHC 35.6 RDW 27.4 H Plt Count 246 Sodium 142.6 Potassium 4.2 Chloride 106 Carbon Dioxide 26 Anion Gap 11 BUN 10 Creatinine 0.58 Est GFR ( Amer) > 60 Est GFR (Non-Af Amer) > 60 Glucose 135 H Calcium 8.7 Total Bilirubin 3.2 H AST 87 H ALT 56 H Alkaline Phosphatase 144 H Total Protein 6.3 Albumin 3.6 Blood Type O POSITIVE Antibody Screen NEGATIVE Impressions: Chest X-Ray 04/11/18 00:00 IMPRESSION: No significant interval change in the chest. Body Scan Nuclear Medicine 04/17/18 00:00 IMPRESSION: FOCAL ACTIVITY AT THE BASE OF THE LEFT THUMB CONSISTENT WITH DEGENERATIVE CHANGE. OTHERWISE UNREMARKABLE BONE SCAN. Assessment & Plan - Diagnosis (1) Vasoocclusive sickle cell crisis Is this a current diagnosis for this admission?: Yes (2) Sickle cell hemolytic anemia Qualifiers: Sickle-cell associated disorders: with unspecified crisis Qualified Code(s) : D57.00 - Hb-SS disease with crisis, unspecified; D57.0 - Hb-SS disease with crisis Is this a current diagnosis for this admission?: Yes - Plan Summary Plan Summary: Continue treatment
[2018-04-22] MEDS: PROMETHAZINE HCL INJ 25 MG/1 ML VIAL IV PRN ×4 (02:21→19:41)
[2018-04-22] MEDS: HYDROMORPHONE HCL INJ/PF 2 MG/ML AMPULE IV PRN ×8 (02:21→23:09)
[2018-04-22] MEDS: GABAPENTIN 300 MG CAPSULE PO SCH ×3 (05:25→21:42)
[2018-04-22] MEDS: NORMAL SALINE 1000 ML 1,000 ML IV PRN ×2 (05:26→14:02)
[2018-04-22 06:32] LABS: HEMATOCRIT 20.2 % (36.0-47.0); MEAN CORPUSCULAR HEMOGLOBIN 38.6 pg (27.0-33.4); MEAN CORPUSCULAR HGB CONC 36.8 g/dL (32.0-36.0); MEAN CORPUSCULAR VOLUME 105 fl (80-97); PLATELET COUNT 233 10^3/uL (150-450); RED BLOOD COUNT 1.92 10^6/uL (3.72-5.28); RED CELL DISTRIBUTION WIDTH 27.6 % (11.5-14.0); WHITE BLOOD COUNT 5.1 10^3/uL (4.0-10.5)
[2018-04-22 06:36] LABS: ALANINE AMINOTRANSFERASE 55 U/L (9-52); ALBUMIN 3.7 g/dL (3.5-5.0); ALKALINE PHOSPHATASE 130 U/L (38-126); ANION GAP 9 (5-19); ASPARTATE AMINO TRANSFERASE 89 U/L (14-36); BILIRUBIN,DIRECT 0.7 mg/dL (0.0-0.4); BILIRUBIN,TOTAL 3.5 mg/dL (0.2-1.3); BLOOD UREA NITROGEN 11 mg/dL (7-20); CARBON DIOXIDE 26 mmol/L (22-30); CHLORIDE 105 mmol/L (98-107); GLUCOSE 104 mg/dL (75-110); POTASSIUM 4.4 mmol/L (3.6-5.0); SODIUM 139.6 mmol/L (137-145); TOTAL PROTEIN 6.4 g/dL (6.3-8.2)
[2018-04-22 07:15] LABS: ABSOLUTE LYMPHOCYTES# (MANUAL) 3.2 10^3/uL (0.5-4.7); ABSOLUTE MONOCYTES # (MANUAL) 0.5 10^3/uL (0.1-1.4); ABSOLUTE NEUTROPHILS# (MANUAL) 1.4 10^3/uL (1.7-8.2); BASOPHILS % (MANUAL) 0 % (0-2); EOSINOPHILS % (MANUAL) 2 % (0-6); LYMPHOCYTES % (MANUAL) 61 % (13-45); MONOCYTES % (MANUAL) 9 % (3-13); NUCLEATED RED BLOOD CELLS 2 /100 WBC (0); SEGMENTED NEUTROPHILS % (MAN) 27 % (42-78); TOTAL CELLS COUNTED 100
[2018-04-22 07:16] LABS: ANISOCYTOSIS 3+; PLATELET COMMENT ADEQUATE; POLYCHROMASIA 1+
[2018-04-22 07:18] LABS: HEMOGLOBIN 7.4 g/dL (12.0-15.5)
[2018-04-22] MEDS: MORPHINE SULFATE SR 30 MG TABLET PO SCH ×2 (09:49→21:42)
[2018-04-22] MEDS: MULTIVITAMIN TABLET PO SCH (09:49)
[2018-04-22] MEDS: OXYCODONE HCL IR 5 MG TABLET PO PRN (09:49)
[2018-04-22] MEDS: FOLIC ACID 1 MG TABLET PO SCH (09:49)
[2018-04-22] MEDS: HYDROXYUREA 500 MG CAPSULE PO SCH ×2 (09:49→21:42)
--- NOTE | 2018-04-22 10:21 | PDOC PROGRESS REPORT ---
Subjective Progress Note for:: 04/22/18 Subjective:: Is admitted for the sickle cell crisis currently doing well Patient received a 1 unit of the blood yesterday Other than that patient's denied any other symptoms except ongoing pain Reason For Visit: SICK CELL, BONE PAIN CRISIS,HEMOLYTIC CRISIS, Physical Exam Vital Signs: Temp Pulse Resp BP Pulse Ox 98.7 F 70 16 89/48 L 100 04/22/18 07:35 04/22/18 07:35 04/22/18 07:35 04/22/18 07:35 04/22/18 08:34 Intake & Output 04/21/18 04/22/18 04/23/18 06:59 06:59 05:59 Intake Total 3539 3559 Output Total 3750 2300 Balance -211 1259 Weight 67 kg 65.6 kg General appearance: PRESENT: no acute distress, well-developed, well-nourished Head exam: PRESENT: atraumatic, normocephalic Eye exam: PRESENT: conjunctiva pink, EOMI, PERRLA. ABSENT: scleral icterus Ear exam: PRESENT: normal external ear exam Mouth exam: PRESENT: moist, tongue midline Neck exam: PRESENT: full ROM. ABSENT: carotid bruit, JVD, lymphadenopathy, thyromegaly Respiratory exam: PRESENT: clear to auscultation carolyn Cardiovascular exam: PRESENT: RRR. ABSENT: diastolic murmur, rubs, systolic murmur Pulses: PRESENT: normal dorsalis pedis pul, +2 pedal pulses bilateral Vascular exam: PRESENT: normal capillary refill GI/Abdominal exam: PRESENT: normal bowel sounds, soft. ABSENT: distended, guarding, mass, organolmegaly, rebound, tenderness Rectal exam: PRESENT: deferred Neurological exam: PRESENT: alert, awake, oriented to person, oriented to place , oriented to time, oriented to situation, CN II-XII grossly intact. ABSENT: motor sensory deficit Psychiatric exam: PRESENT: appropriate affect, normal mood. ABSENT: homicidal ideation, suicidal ideation Skin exam: PRESENT: dry, intact, warm. ABSENT: cyanosis, rash Results Laboratory Results: 04/22/18 05:35 04/22/18 05:35 04/22/18 04/22/18 05:35 05:35 WBC 5.1 RBC 1.92 L Hgb 7.4 L Hct 20.2 L MCV 105 H MCH 38.6 H MCHC 36.8 H RDW 27.6 H Plt Count 233 Seg Neutrophils % Not Reportable Lymphocytes % Not Reportable Monocytes % Not Reportable Eosinophils % Not Reportable Basophils % Not Reportable Absolute Neutrophils Not Reportable Absolute Lymphocytes Not Reportable Absolute Monocytes Not Reportable Absolute Eosinophils Not Reportable Absolute Basophils Not Reportable Sodium 139.6 Potassium 4.4 Chloride 105 Carbon Dioxide 26 Anion Gap 9 BUN 11 Creatinine 0.51 L Est GFR ( Amer) > 60 Est GFR (Non-Af Amer) > 60 Glucose 104 Calcium 9.0 Total Bilirubin 3.5 H AST 89 H ALT 55 H Alkaline Phosphatase 130 H Total Protein 6.4 Albumin 3.7 Impressions: Chest X-Ray 04/11/18 00:00 IMPRESSION: No significant interval change in the chest. Body Scan Nuclear Medicine 04/17/18 00:00 IMPRESSION: FOCAL ACTIVITY AT THE BASE OF THE LEFT THUMB CONSISTENT WITH DEGENERATIVE CHANGE. OTHERWISE UNREMARKABLE BONE SCAN. Assessment & Plan - Diagnosis (1) Vasoocclusive sickle cell crisis Is this a current diagnosis for this admission?: Yes Plan: Continue a pain medication and IV fluid (2) Anemia Qualifiers: Anemia type: unspecified type Qualified Code(s): D64.9 - Anemia, unspecified Is this a current diagnosis for this admission?: Yes Plan: Post 1 unit of blood currently all stable - Time Time Spent with patient: 15-24 minutes Medications reviewed and adjusted accordingly: Yes Anticipated discharge: Home Within: Other - Inpatient Certification Based on my medical assessment, after consideration of the patient's comorbidities, presenting symptoms, or acuity I expect that the services needed warrant INPATIENT care.: Yes I certify that my determination is in accordance with my understanding of Medicare's requirements for reasonable and necessary INPATIENT services [42 CFR 412.3e].: Yes Medical Necessity: Need Close Monitoring Due to Risk of Patient Decompensation Post Hospital Care: D/C Insights Analyst Documentation - Plan Summary Plan Summary: Continues to current medications no other concerns
[2018-04-22] MEDS: NORMAL SALINE 1000 ML 1,000 ML with POTASSIUM CHLORIDE 20 MEQ, MAGNESIUM SULFATE 8 MEQ,... IV SCH ×5 (19:42)
[2018-04-22] MEDS: RIVAROXABAN 10 MG TABLET PO SCH (19:42)
[2018-04-23] MEDS: HYDROMORPHONE HCL INJ/PF 2 MG/ML AMPULE IV PRN ×8 (01:13→21:33)
[2018-04-23] MEDS: PROMETHAZINE HCL INJ 25 MG/1 ML VIAL IV PRN ×4 (01:13→18:33)
[2018-04-23] MEDS: GABAPENTIN 300 MG CAPSULE PO SCH ×3 (05:05→21:32)
[2018-04-23] MEDS: NORMAL SALINE 1000 ML 1,000 ML IV PRN (05:05)
[2018-04-23 06:00] LABS: ALANINE AMINOTRANSFERASE 53 U/L (9-52); ALBUMIN 3.7 g/dL (3.5-5.0); ALKALINE PHOSPHATASE 139 U/L (38-126); ANION GAP 8 (5-19); ASPARTATE AMINO TRANSFERASE 77 U/L (14-36); BILIRUBIN,DIRECT 0.8 mg/dL (0.0-0.4); BILIRUBIN,TOTAL 3.4 mg/dL (0.2-1.3); BLOOD UREA NITROGEN 11 mg/dL (7-20); CARBON DIOXIDE 26 mmol/L (22-30); CHLORIDE 106 mmol/L (98-107); GLUCOSE 84 mg/dL (75-110); HEMATOCRIT 19.7 % (36.0-47.0); MEAN CORPUSCULAR HEMOGLOBIN 37.5 pg (27.0-33.4); MEAN CORPUSCULAR HGB CONC 35.3 g/dL (32.0-36.0); MEAN CORPUSCULAR VOLUME 106 fl (80-97); PLATELET COUNT 234 10^3/uL (150-450); POTASSIUM 4.8 mmol/L (3.6-5.0); RED BLOOD COUNT 1.85 10^6/uL (3.72-5.28); RED CELL DISTRIBUTION WIDTH 27.8 % (11.5-14.0); TOTAL PROTEIN 6.4 g/dL (6.3-8.2); WHITE BLOOD COUNT 5.4 10^3/uL (4.0-10.5)
[2018-04-23 06:33] LABS: ABSOLUTE LYMPHOCYTES# (MANUAL) 2.8 10^3/uL (0.5-4.7); ABSOLUTE NEUTROPHILS# (MANUAL) 1.9 10^3/uL (1.7-8.2); BASOPHILS % (MANUAL) 3 % (0-2); EOSINOPHILS % (MANUAL) 9 % (0-6); LYMPHOCYTES % (MANUAL) 52 % (13-45); MONOCYTES % (MANUAL) 0 % (3-13); POLYCHROMASIA SLIGHT; SEGMENTED NEUTROPHILS % (MAN) 36 % (42-78); TOTAL CELLS COUNTED 100
[2018-04-23 06:34] LABS: ANISOCYTOSIS 3+; HYPOCHROMASIA 3+; POIKILOCYTOSIS 2+; SCHISTOCYTES 2+; SICKLE RED CELLS SLIGHT
[2018-04-23 06:35] LABS: PLATELET COMMENT ADEQUATE; TARGET CELLS 3+
--- NOTE | 2018-04-23 09:10 | PDOC PROGRESS REPORT ---
Subjective Progress Note for:: 04/23/18 Subjective:: Is admitted for the sickle cell crisis currently doing well Patient received a 1 unit of the blood yesterday Other than that patient's denied any other symptoms except ongoing pain Reason For Visit: SICK CELL, BONE PAIN CRISIS,HEMOLYTIC CRISIS, Physical Exam Vital Signs: Temp Pulse Resp BP Pulse Ox 98.9 F 73 20 93/51 L 97 04/23/18 03:12 04/23/18 03:12 04/23/18 03:12 04/23/18 05:11 04/23/18 03:12 Intake & Output 04/22/18 04/23/18 04/24/18 07:59 06:59 06:59 Intake Total Output Total Balance Weight General appearance: PRESENT: no acute distress, well-developed, well-nourished Head exam: PRESENT: atraumatic, normocephalic Eye exam: PRESENT: conjunctiva pink, EOMI, PERRLA. ABSENT: scleral icterus Ear exam: PRESENT: normal external ear exam Mouth exam: PRESENT: moist, tongue midline Neck exam: PRESENT: full ROM. ABSENT: carotid bruit, JVD, lymphadenopathy, thyromegaly Respiratory exam: PRESENT: clear to auscultation carolyn Cardiovascular exam: PRESENT: RRR. ABSENT: diastolic murmur, rubs, systolic murmur Pulses: PRESENT: normal dorsalis pedis pul, +2 pedal pulses bilateral Vascular exam: PRESENT: normal capillary refill GI/Abdominal exam: PRESENT: normal bowel sounds, soft. ABSENT: distended, guarding, mass, organolmegaly, rebound, tenderness Rectal exam: PRESENT: deferred Musculoskeletal exam: PRESENT: ambulatory Neurological exam: PRESENT: alert, awake, oriented to person, oriented to place , oriented to time, oriented to situation, CN II-XII grossly intact. ABSENT: motor sensory deficit Psychiatric exam: PRESENT: appropriate affect, normal mood. ABSENT: homicidal ideation, suicidal ideation Skin exam: PRESENT: dry, intact, warm. ABSENT: cyanosis, rash Results Laboratory Results: 04/23/18 05:10 04/23/18 05:10 04/23/18 04/23/18 05:10 05:10 WBC 5.4 RBC 1.85 L Hgb 7.0 L Hct 19.7 L MCV 106 H MCH 37.5 H MCHC 35.3 RDW 27.8 H Plt Count 234 Seg Neutrophils % Not Reportable Lymphocytes % Not Reportable Monocytes % Not Reportable Eosinophils % Not Reportable Basophils % Not Reportable Absolute Neutrophils Not Reportable Absolute Lymphocytes Not Reportable Absolute Monocytes Not Reportable Absolute Eosinophils Not Reportable Absolute Basophils Not Reportable Sodium 140.0 Potassium 4.8 Chloride 106 Carbon Dioxide 26 Anion Gap 8 BUN 11 Creatinine 0.56 Est GFR ( Amer) > 60 Est GFR (Non-Af Amer) > 60 Glucose 84 Calcium 9.0 Total Bilirubin 3.4 H AST 77 H ALT 53 H Alkaline Phosphatase 139 H Total Protein 6.4 Albumin 3.7 Impressions: Chest X-Ray 04/11/18 00:00 IMPRESSION: No significant interval change in the chest. Body Scan Nuclear Medicine 04/17/18 00:00 IMPRESSION: FOCAL ACTIVITY AT THE BASE OF THE LEFT THUMB CONSISTENT WITH DEGENERATIVE CHANGE. OTHERWISE UNREMARKABLE BONE SCAN. Assessment & Plan - Diagnosis (1) Vasoocclusive sickle cell crisis Is this a current diagnosis for this admission?: Yes Plan: Continue a pain medication and IV fluid (2) Anemia Qualifiers: Anemia type: unspecified type Qualified Code(s): D64.9 - Anemia, unspecified Is this a current diagnosis for this admission?: Yes Plan: Post 1 unit of blood currently all stable - Time Time Spent with patient: 15-24 minutes Medications reviewed and adjusted accordingly: Yes Anticipated discharge: Home Within: Other - Inpatient Certification Based on my medical assessment, after consideration of the patient's comorbidities, presenting symptoms, or acuity I expect that the services needed warrant INPATIENT care.: Yes I certify that my determination is in accordance with my understanding of Medicare's requirements for reasonable and necessary INPATIENT services [42 CFR 412.3e].: Yes Medical Necessity: Need Close Monitoring Due to Risk of Patient Decompensation Post Hospital Care: D/C Director Of Oncology Documentation - Plan Summary Plan Summary: Patient is currently doing well patient's p.o. intake is good. The IV fluid
[2018-04-23] MEDS: MORPHINE SULFATE SR 30 MG TABLET PO SCH ×2 (10:22→21:32)
[2018-04-23] MEDS: FOLIC ACID 1 MG TABLET PO SCH (10:22)
[2018-04-23] MEDS: HYDROXYUREA 500 MG CAPSULE PO SCH ×2 (10:23→21:32)
[2018-04-23] MEDS: MULTIVITAMIN TABLET PO SCH (10:23)
[2018-04-23] MEDS: OXYCODONE HCL IR 5 MG TABLET PO PRN (15:00)
[2018-04-23] MEDS: RIVAROXABAN 10 MG TABLET PO SCH (18:35)
[2018-04-24] MEDS: HYDROMORPHONE HCL INJ/PF 2 MG/ML AMPULE IV PRN ×9 (00:10→23:12)
[2018-04-24] MEDS: PROMETHAZINE HCL INJ 25 MG/1 ML VIAL IV PRN ×5 (00:10→23:13)
[2018-04-24 05:31] LABS: HEMATOCRIT 20.1 % (36.0-47.0); MEAN CORPUSCULAR HEMOGLOBIN 38.6 pg (27.0-33.4); MEAN CORPUSCULAR HGB CONC 36.7 g/dL (32.0-36.0); MEAN CORPUSCULAR VOLUME 105 fl (80-97); PLATELET COUNT 235 10^3/uL (150-450); RED BLOOD COUNT 1.91 10^6/uL (3.72-5.28); RED CELL DISTRIBUTION WIDTH 27.1 % (11.5-14.0); WHITE BLOOD COUNT 5.7 10^3/uL (4.0-10.5)
[2018-04-24 05:42] LABS: ALANINE AMINOTRANSFERASE 49 U/L (9-52); ALBUMIN 3.9 g/dL (3.5-5.0); ALKALINE PHOSPHATASE 143 U/L (38-126); ANION GAP 10 (5-19); ASPARTATE AMINO TRANSFERASE 75 U/L (14-36); BILIRUBIN,TOTAL 3.5 mg/dL (0.2-1.3); BLOOD UREA NITROGEN 12 mg/dL (7-20); CALCIUM 9.4 mg/dL (8.4-10.2); CARBON DIOXIDE 28 mmol/L (22-30); CHLORIDE 103 mmol/L (98-107); GLUCOSE 100 mg/dL (75-110); POTASSIUM 4.5 mmol/L (3.6-5.0); SODIUM 141.3 mmol/L (137-145); TOTAL PROTEIN 6.5 g/dL (6.3-8.2)
[2018-04-24] MEDS: GABAPENTIN 300 MG CAPSULE PO SCH ×3 (05:45→22:00)
[2018-04-24 06:34] LABS: ABSOLUTE LYMPHOCYTES# (MANUAL) 2.5 10^3/uL (0.5-4.7); ABSOLUTE MONOCYTES # (MANUAL) 0.1 10^3/uL (0.1-1.4); ABSOLUTE NEUTROPHILS# (MANUAL) 2.7 10^3/uL (1.7-8.2); BASOPHILS % (MANUAL) 0 % (0-2); EOSINOPHILS % (MANUAL) 6 % (0-6); LYMPHOCYTES % (MANUAL) 44 % (13-45); MONOCYTES % (MANUAL) 2 % (3-13); SEGMENTED NEUTROPHILS % (MAN) 48 % (42-78); TOTAL CELLS COUNTED 100
[2018-04-24 06:36] LABS: ANISOCYTOSIS 3+; PLATELET COMMENT ADEQUATE; POLYCHROMASIA 1+
[2018-04-24 06:41] LABS: HEMOGLOBIN 7.4 g/dL (12.0-15.5)
[2018-04-24] MEDS: MORPHINE SULFATE SR 30 MG TABLET PO SCH ×2 (09:45→22:00)
[2018-04-24] MEDS: HYDROXYUREA 500 MG CAPSULE PO SCH ×2 (09:46→22:00)
[2018-04-24] MEDS: MULTIVITAMIN TABLET PO SCH (09:46)
[2018-04-24] MEDS: FOLIC ACID 1 MG TABLET PO SCH (09:46)
[2018-04-24] MEDS: RIVAROXABAN 10 MG TABLET PO SCH (17:39)
--- NOTE | 2018-04-24 20:13 | PDOC PROGRESS REPORT ---
Subjective Progress Note for:: 04/24/18 Subjective:: Patient seen by the bedside Reason For Visit: SICK CELL, BONE PAIN CRISIS,HEMOLYTIC CRISIS, Physical Exam Vital Signs: Temp Pulse Resp BP Pulse Ox 99.6 F 92 21 H 106/65 98 04/24/18 15:18 04/24/18 15:18 04/24/18 15:18 04/24/18 15:18 04/24/18 15:18 Intake & Output 04/23/18 04/24/18 04/25/18 06:59 06:59 06:59 Intake Total 2281 681 Output Total 3200 1800 Balance -919 -1119 Weight 65.6 kg General appearance: PRESENT: no acute distress Eye exam: PRESENT: PERRLA Respiratory exam: PRESENT: clear to auscultation carolyn Cardiovascular exam: PRESENT: +S1, +S2 GI/Abdominal exam: PRESENT: soft Neurological exam: PRESENT: alert Results Laboratory Results: 04/24/18 05:00 04/24/18 05:00 04/24/18 04/24/18 05:00 05:00 WBC 5.7 RBC 1.91 L Hgb 7.4 L Hct 20.1 L MCV 105 H MCH 38.6 H MCHC 36.7 H RDW 27.1 H Plt Count 235 Seg Neutrophils % Not Reportable Lymphocytes % Not Reportable Monocytes % Not Reportable Eosinophils % Not Reportable Basophils % Not Reportable Absolute Neutrophils Not Reportable Absolute Lymphocytes Not Reportable Absolute Monocytes Not Reportable Absolute Eosinophils Not Reportable Absolute Basophils Not Reportable Sodium 141.3 Potassium 4.5 Chloride 103 Carbon Dioxide 28 Anion Gap 10 BUN 12 Creatinine 0.64 Est GFR ( Amer) > 60 Est GFR (Non-Af Amer) > 60 Glucose 100 Calcium 9.4 Total Bilirubin 3.5 H AST 75 H ALT 49 Alkaline Phosphatase 143 H Total Protein 6.5 Albumin 3.9 Impressions: Chest X-Ray 04/11/18 00:00 IMPRESSION: No significant interval change in the chest. Body Scan Nuclear Medicine 04/17/18 00:00 IMPRESSION: FOCAL ACTIVITY AT THE BASE OF THE LEFT THUMB CONSISTENT WITH DEGENERATIVE CHANGE. OTHERWISE UNREMARKABLE BONE SCAN. Assessment & Plan - Diagnosis (1) Vasoocclusive sickle cell crisis Is this a current diagnosis for this admission?: Yes (2) Sickle cell hemolytic anemia Qualifiers: Sickle-cell associated disorders: with unspecified crisis Qualified Code(s) : D57.00 - Hb-SS disease with crisis, unspecified; D57.0 - Hb-SS disease with crisis Is this a current diagnosis for this admission?: Yes
[2018-04-24] MEDS: NORMAL SALINE 1000 ML 1,000 ML with POTASSIUM CHLORIDE 20 MEQ, MAGNESIUM SULFATE 8 MEQ,... IV SCH ×5 (22:01)
[2018-04-25] MEDS: HYDROMORPHONE HCL INJ/PF 2 MG/ML AMPULE IV PRN ×8 (02:21→23:50)
[2018-04-25] MEDS: PROMETHAZINE HCL INJ 25 MG/1 ML VIAL IV PRN ×4 (05:30→23:51)
[2018-04-25] MEDS: GABAPENTIN 300 MG CAPSULE PO SCH ×3 (05:31→21:18)
[2018-04-25 06:00] LABS: ABSOLUTE EOSINOPHILS # (AUTO) 0.4 10^3/uL (0.0-0.6); TOTAL CELLS COUNTED % (AUTO) 100 %; WHITE BLOOD COUNT 6.2 10^3/uL (4.0-10.5)
[2018-04-25 06:24] LABS: ALANINE AMINOTRANSFERASE 47 U/L (9-52); ALBUMIN 3.6 g/dL (3.5-5.0); ALKALINE PHOSPHATASE 146 U/L (38-126); ANION GAP 8 (5-19); ASPARTATE AMINO TRANSFERASE 73 U/L (14-36); BILIRUBIN,DIRECT 0.8 mg/dL (0.0-0.4); BILIRUBIN,TOTAL 3.2 mg/dL (0.2-1.3); BLOOD UREA NITROGEN 12 mg/dL (7-20); CALCIUM 9.1 mg/dL (8.4-10.2); CARBON DIOXIDE 29 mmol/L (22-30); CHLORIDE 104 mmol/L (98-107); GLUCOSE 99 mg/dL (75-110); POTASSIUM 4.5 mmol/L (3.6-5.0); SODIUM 141.4 mmol/L (137-145); TOTAL PROTEIN 6.3 g/dL (6.3-8.2)
[2018-04-25 06:38] LABS: ABSOLUTE BASOPHILS # (AUTO) 0.1 10^3/uL (0.0-0.2); ABSOLUTE LYMPHOCYTES (AUTO) 1.3 10^3/uL (0.5-4.7); ABSOLUTE MONOCYTES (AUTO) 0.7 10^3/uL (0.1-1.4); ABSOLUTE NEUT (AUTO) 3.7 10^3/uL (1.7-8.2); BASOPHILS % (AUTO) 1.8 % (0-2); HEMATOCRIT 19.3 % (36.0-47.0); LYMPHOCYTES % (AUTO) 20.3 % (13-45); MEAN CORPUSCULAR HEMOGLOBIN 37.8 pg (27.0-33.4); MEAN CORPUSCULAR HGB CONC 35.3 g/dL (32.0-36.0); MEAN CORPUSCULAR VOLUME 107 fl (80-97); MONOCYTES % (AUTO) 11.1 % (3-13); PLATELET COUNT 227 10^3/uL (150-450); RED CELL DISTRIBUTION WIDTH 27.3 % (11.5-14.0); SEGMENTED NEUTROPHILS % (AUTO) 59.8 % (42-78)
[2018-04-25 07:20] LABS: HEMOGLOBIN 6.8 g/dL (12.0-15.5)
[2018-04-25 07:24] LABS: ANISOCYTOSIS 3+; POLYCHROMASIA 1+
[2018-04-25 07:27] LABS: OVALOCYTES SLIGHT; SICKLE RED CELLS SLIGHT
[2018-04-25 07:28] LABS: HOWELL-JOLLY BODIES PRESENT; PAPPENHEIMER BODIES PRESENT; POIKILOCYTOSIS 1+; TARGET CELLS 1+
[2018-04-25 07:29] LABS: PLATELET COMMENT ADEQUATE
[2018-04-25] MEDS: HYDROXYUREA 500 MG CAPSULE PO SCH ×2 (09:35→21:18)
[2018-04-25] MEDS: FOLIC ACID 1 MG TABLET PO SCH (09:35)
[2018-04-25] MEDS: MORPHINE SULFATE SR 30 MG TABLET PO SCH ×2 (09:36→21:18)
[2018-04-25] MEDS: RIVAROXABAN 10 MG TABLET PO SCH (17:31)
--- NOTE | 2018-04-25 19:45 | PDOC PROGRESS REPORT ---
Subjective Progress Note for:: 04/25/18 Subjective:: Patient is seen by the bedside, she continues to complain of pain Reason For Visit: SICK CELL, BONE PAIN CRISIS,HEMOLYTIC CRISIS, Physical Exam Vital Signs: Temp Pulse Resp BP Pulse Ox 99.6 F 85 15 91/58 L 98 04/25/18 16:45 04/25/18 16:45 04/25/18 16:45 04/25/18 16:45 04/25/18 16:45 Intake & Output 04/24/18 04/25/18 04/26/18 06:59 06:59 06:59 Intake Total 2281 2547 1688 Output Total 3200 3200 1200 Balance -919 -733 488 Weight 65.6 kg 64.4 kg General appearance: PRESENT: no acute distress Eye exam: PRESENT: PERRLA Respiratory exam: PRESENT: clear to auscultation carolyn Cardiovascular exam: PRESENT: +S1, +S2 GI/Abdominal exam: PRESENT: soft Results Laboratory Results: 04/25/18 05:30 04/25/18 05:30 04/25/18 04/25/18 05:30 05:30 WBC 6.2 RBC 1.80 L Hgb 6.8 L Hct 19.3 L MCV 107 H MCH 37.8 H MCHC 35.3 RDW 27.3 H Plt Count 227 Seg Neutrophils % 59.8 Lymphocytes % 20.3 Monocytes % 11.1 Eosinophils % 7.0 H Basophils % 1.8 Absolute Neutrophils 3.7 Absolute Lymphocytes 1.3 Absolute Monocytes 0.7 Absolute Eosinophils 0.4 Absolute Basophils 0.1 Sodium 141.4 Potassium 4.5 Chloride 104 Carbon Dioxide 29 Anion Gap 8 BUN 12 Creatinine 0.63 Est GFR ( Amer) > 60 Est GFR (Non-Af Amer) > 60 Glucose 99 Calcium 9.1 Total Bilirubin 3.2 H AST 73 H ALT 47 Alkaline Phosphatase 146 H Total Protein 6.3 Albumin 3.6 Impressions: Chest X-Ray 04/11/18 00:00 IMPRESSION: No significant interval change in the chest. Body Scan Nuclear Medicine 04/17/18 00:00 IMPRESSION: FOCAL ACTIVITY AT THE BASE OF THE LEFT THUMB CONSISTENT WITH DEGENERATIVE CHANGE. OTHERWISE UNREMARKABLE BONE SCAN. Assessment & Plan - Diagnosis (1) Vasoocclusive sickle cell crisis Is this a current diagnosis for this admission?: Yes (2) Sickle cell hemolytic anemia Qualifiers: Sickle-cell associated disorders: with unspecified crisis Qualified Code(s) : D57.00 - Hb-SS disease with crisis, unspecified; D57.0 - Hb-SS disease with crisis Is this a current diagnosis for this admission?: Yes
[2018-04-25] MEDS: NORMAL SALINE 1000 ML 1,000 ML with POTASSIUM CHLORIDE 20 MEQ, MAGNESIUM SULFATE 8 MEQ,... IV SCH ×5 (21:21)
[2018-04-26] MEDS: HYDROMORPHONE HCL INJ/PF 2 MG/ML AMPULE IV PRN ×6 (03:03→23:22)
[2018-04-26] MEDS: GABAPENTIN 300 MG CAPSULE PO SCH ×3 (05:04→23:17)
[2018-04-26 06:02] LABS: HEMATOCRIT 19.4 % (36.0-47.0); MEAN CORPUSCULAR HGB CONC 35.8 g/dL (32.0-36.0); MEAN CORPUSCULAR VOLUME 106 fl (80-97); PLATELET COUNT 227 10^3/uL (150-450); RED BLOOD COUNT 1.83 10^6/uL (3.72-5.28); RED CELL DISTRIBUTION WIDTH 27.3 % (11.5-14.0); WHITE BLOOD COUNT 5.5 10^3/uL (4.0-10.5)
[2018-04-26 06:06] LABS: HEMOGLOBIN 6.9 g/dL (12.0-15.5)
[2018-04-26 06:11] LABS: ALANINE AMINOTRANSFERASE 54 U/L (9-52); ALBUMIN 3.9 g/dL (3.5-5.0); ALKALINE PHOSPHATASE 150 U/L (38-126); ANION GAP 11 (5-19); ASPARTATE AMINO TRANSFERASE 86 U/L (14-36); BILIRUBIN,DIRECT 0.8 mg/dL (0.0-0.4); BILIRUBIN,TOTAL 3.3 mg/dL (0.2-1.3); BLOOD UREA NITROGEN 13 mg/dL (7-20); CALCIUM 9.1 mg/dL (8.4-10.2); CARBON DIOXIDE 26 mmol/L (22-30); CHLORIDE 104 mmol/L (98-107); GLUCOSE 92 mg/dL (75-110); POTASSIUM 5.1 mmol/L (3.6-5.0); TOTAL PROTEIN 6.5 g/dL (6.3-8.2)
[2018-04-26 06:21] LABS: ABSOLUTE LYMPHOCYTES# (MANUAL) 2.4 10^3/uL (0.5-4.7); ABSOLUTE MONOCYTES # (MANUAL) 0.3 10^3/uL (0.1-1.4); ABSOLUTE NEUTROPHILS# (MANUAL) 2.3 10^3/uL (1.7-8.2); BAND NEUTROPHILS % (MANUAL) 1 % (3-5); BASOPHILS % (MANUAL) 2 % (0-2); EOSINOPHILS % (MANUAL) 8 % (0-6); LYMPHOCYTES % (MANUAL) 43 % (13-45); MONOCYTES % (MANUAL) 5 % (3-13); NUCLEATED RED BLOOD CELLS 3 /100 WBC (0); SEGMENTED NEUTROPHILS % (MAN) 41 % (42-78); TOTAL CELLS COUNTED 100
[2018-04-26 06:22] LABS: ANISOCYTOSIS 3+; POIKILOCYTOSIS 1+; POLYCHROMASIA 1+; TOXIC GRANULATION 1+
[2018-04-26 06:23] LABS: HOWELL-JOLLY BODIES PRESENT; PLATELET COMMENT ADEQUATE; PLATELET LARGE PRESENT; SCHISTOCYTES SLIGHT; SICKLE RED CELLS SLIGHT
[2018-04-26] MEDS: PROMETHAZINE HCL INJ 25 MG/1 ML VIAL IV PRN ×3 (07:07→23:24)
[2018-04-26] MEDS: MORPHINE SULFATE SR 30 MG TABLET PO SCH ×2 (10:35→23:17)
[2018-04-26] MEDS: FOLIC ACID 1 MG TABLET PO SCH (10:41)
[2018-04-26] MEDS: HYDROXYUREA 500 MG CAPSULE PO SCH ×2 (10:41→23:19)
[2018-04-26] MEDS: RIVAROXABAN 10 MG TABLET PO SCH (17:15)
[2018-04-26] MEDS ORDERED: NORMAL SALINE 250 ML IV PRN ×2 (18:05)
--- NOTE | 2018-04-26 18:05 | PDOC PROGRESS REPORT ---
Subjective Progress Note for:: 04/26/18 Subjective:: Patient is seen by the bedside, the blood count is low, she will receive 1 unit of red blood cell Reason For Visit: SICK CELL, BONE PAIN CRISIS,HEMOLYTIC CRISIS, Physical Exam Vital Signs: Temp Pulse Resp BP Pulse Ox 99.0 F 79 18 88/45 L 99 04/26/18 15:46 04/26/18 15:46 04/26/18 15:46 04/26/18 15:46 04/26/18 15:46 Intake & Output 04/25/18 04/26/18 04/27/18 06:59 06:59 06:59 Intake Total 2547 3977 450 Output Total 3200 2100 Balance -653 1877 450 Weight 64.4 kg 63.3 kg General appearance: PRESENT: no acute distress Eye exam: PRESENT: PERRLA Respiratory exam: PRESENT: clear to auscultation carolyn Cardiovascular exam: PRESENT: +S1, +S2 GI/Abdominal exam: PRESENT: soft Neurological exam: PRESENT: alert Results Laboratory Results: 04/26/18 05:00 04/26/18 05:00 04/26/18 04/26/18 05:00 05:00 WBC 5.5 RBC 1.83 L Hgb 6.9 L Hct 19.4 L MCV 106 H MCH 38.0 H MCHC 35.8 RDW 27.3 H Plt Count 227 Seg Neutrophils % Not Reportable Lymphocytes % Not Reportable Monocytes % Not Reportable Eosinophils % Not Reportable Basophils % Not Reportable Absolute Neutrophils Not Reportable Absolute Lymphocytes Not Reportable Absolute Monocytes Not Reportable Absolute Eosinophils Not Reportable Absolute Basophils Not Reportable Sodium 141.0 Potassium 5.1 H Chloride 104 Carbon Dioxide 26 Anion Gap 11 BUN 13 Creatinine 0.50 L Est GFR ( Amer) > 60 Est GFR (Non-Af Amer) > 60 Glucose 92 Calcium 9.1 Total Bilirubin 3.3 H AST 86 H ALT 54 H Alkaline Phosphatase 150 H Total Protein 6.5 Albumin 3.9 Impressions: Chest X-Ray 04/11/18 00:00 IMPRESSION: No significant interval change in the chest. Body Scan Nuclear Medicine 04/17/18 00:00 IMPRESSION: FOCAL ACTIVITY AT THE BASE OF THE LEFT THUMB CONSISTENT WITH DEGENERATIVE CHANGE. OTHERWISE UNREMARKABLE BONE SCAN. Assessment & Plan - Diagnosis (1) Vasoocclusive sickle cell crisis Is this a current diagnosis for this admission?: Yes (2) Sickle cell hemolytic anemia Qualifiers: Sickle-cell associated disorders: with unspecified crisis Qualified Code(s) : D57.00 - Hb-SS disease with crisis, unspecified; D57.0 - Hb-SS disease with crisis Is this a current diagnosis for this admission?: Yes Plan: Transfuse 1 unit of red blood cell
[2018-04-26] MEDS: NORMAL SALINE 1000 ML 1,000 ML with POTASSIUM CHLORIDE 20 MEQ, MAGNESIUM SULFATE 8 MEQ,... IV SCH ×5 (23:16)
[2018-04-27 00:40] LABS: HEMATOCRIT 22.6 % (36.0-47.0); HEMOGLOBIN 8.2 g/dL (12.0-15.5); MEAN CORPUSCULAR HEMOGLOBIN 37.5 pg (27.0-33.4); MEAN CORPUSCULAR HGB CONC 36.5 g/dL (32.0-36.0); MEAN CORPUSCULAR VOLUME 103 fl (80-97); PLATELET COUNT 245 10^3/uL (150-450); RED CELL DISTRIBUTION WIDTH 27.1 % (11.5-14.0); WHITE BLOOD COUNT 5.6 10^3/uL (4.0-10.5)
[2018-04-27 00:48] LABS: ALANINE AMINOTRANSFERASE 55 U/L (9-52); ALBUMIN 3.9 g/dL (3.5-5.0); ALKALINE PHOSPHATASE 159 U/L (38-126); ANION GAP 10 (5-19); ASPARTATE AMINO TRANSFERASE 97 U/L (14-36); BILIRUBIN,DIRECT 0.7 mg/dL (0.0-0.4); BILIRUBIN,TOTAL 3.5 mg/dL (0.2-1.3); BLOOD UREA NITROGEN 18 mg/dL (7-20); CALCIUM 9.4 mg/dL (8.4-10.2); CARBON DIOXIDE 27 mmol/L (22-30); CHLORIDE 104 mmol/L (98-107); GLUCOSE 121 mg/dL (75-110); POTASSIUM 4.7 mmol/L (3.6-5.0); SODIUM 141.2 mmol/L (137-145); TOTAL PROTEIN 6.6 g/dL (6.3-8.2)
[2018-04-27 01:01] LABS: ABSOLUTE LYMPHOCYTES# (MANUAL) 2.4 10^3/uL (0.5-4.7); ABSOLUTE MONOCYTES # (MANUAL) 0.5 10^3/uL (0.1-1.4); ABSOLUTE NEUTROPHILS# (MANUAL) 2.1 10^3/uL (1.7-8.2); BAND NEUTROPHILS % (MANUAL) 1 % (3-5); BASOPHILS % (MANUAL) 1 % (0-2); EOSINOPHILS % (MANUAL) 11 % (0-6); LYMPHOCYTES % (MANUAL) 42 % (13-45); MONOCYTES % (MANUAL) 9 % (3-13); NUCLEATED RED BLOOD CELLS 3 /100 WBC (0); SEGMENTED NEUTROPHILS % (MAN) 36 % (42-78); TOTAL CELLS COUNTED 100
[2018-04-27 01:06] LABS: ANISOCYTOSIS 4+; POIKILOCYTOSIS 2+; POLYCHROMASIA SLIGHT; TARGET CELLS 1+
[2018-04-27 01:07] LABS: OVALOCYTES 1+; PLATELET COMMENT ADEQUATE; SICKLE RED CELLS SLIGHT
[2018-04-27] MEDS: OXYCODONE HCL IR 5 MG TABLET PO PRN ×3 (02:37→15:20)
[2018-04-27] MEDS: HYDROMORPHONE HCL INJ/PF 2 MG/ML AMPULE IV PRN ×3 (06:22→18:24)
[2018-04-27] MEDS: PROMETHAZINE HCL INJ 25 MG/1 ML VIAL IV PRN ×3 (06:23→18:24)
[2018-04-27] MEDS: GABAPENTIN 300 MG CAPSULE PO SCH ×3 (06:25→22:02)
[2018-04-27] MEDS: FOLIC ACID 1 MG TABLET PO SCH (09:17)
[2018-04-27] MEDS: MORPHINE SULFATE SR 30 MG TABLET PO SCH ×2 (09:17→22:02)
[2018-04-27] MEDS: HYDROXYUREA 500 MG CAPSULE PO SCH ×2 (09:17→22:02)
[2018-04-27] MEDS: RIVAROXABAN 10 MG TABLET PO SCH (17:34)
--- NOTE | 2018-04-27 21:00 | PDOC DISCHARGE SUMMARY ---
General - Admit/Disc Date/PCP Admission Date/Primary Care Provider: 04/11/18 13:20 HOMA BARRAZA MD Discharge Date: 04/27/18 - Discharge Diagnosis (1) Vasoocclusive sickle cell crisis Is this a current diagnosis for this admission?: Yes (2) Sickle cell hemolytic anemia Is this a current diagnosis for this admission?: Yes - Additional Information Prescriptions: Oxycodone HCl [Roxicodone] 30 mg PO Q6HP PRN #20 tablet PRN Reason: For Pain Morphine Sulfate [Ms-Contin Sr 30 mg Tablet] 30 mg PO Q12 #10 tablet.sa Home Medications: Epoetin Federico [Procrit] 20,000 unit SUBCUT FR@1000 04/11/18 Epoetin Federico [Procrit] 40,000 unit SUBCUT FR@1000 04/11/18 Folic Acid [Folvite 1 mg Tablet] 1 mg PO DAILY 04/11/18 Gabapentin [Neurontin 300 mg Capsule] 300 mg PO Q8 04/11/18 Hydroxyurea [Hydrea 500 mg Capsule] 500 mg PO BID 04/11/18 Morphine Sulfate [Morphine Sulfate ER] 30 mg PO Q12 04/11/18 Multivitamin [Tab-A-Yosvany (Multiple Vitamin) Tablet] 1 tab PO DAILY 04/11/18 Promethazine HCl [Phenergan 25 mg Tablet] 25 mg PO Q6HP PRN 04/11/18 Rivaroxaban [Xarelto] 20 mg PO QPM 04/11/18 Morphine Sulfate [Ms-Contin Sr 30 mg Tablet] 30 mg PO Q12 #10 tablet.sa Oxycodone HCl [Roxicodone] 30 mg PO Q6HP PRN #20 tablet 04/27/18 History of Present Illness History of Present Illness: WILLIE ALAN is a 48 year old female, she has history of sickle cell disease, SS, she came to the office for evaluation of body pains, jaundice, malaise. She has a history of multiple hospitalization for acute vaso- occlusive syndromes. In the office she was evaluated she was found to be jaundiced suggesting sickle cell hemolytic crisis, she was admitted directly from the office to the hospital. The hemoglobin is 8.5, there is hyperbilirubinemia, mostly in the right, elevated LDH level consistent with hemolysis. She also have bone pains does suggest vaso-occlusive syndrome Hospital Course Hospital Course: She was admitted for the management of vaso-occlusive syndrome, hemolytic anemia due to sickle cell disease, she required blood transfusion ,pain control was achieved with Dilaudid intravenously, IV fluid was also administered Physical Exam Vital Signs: Temp Pulse Resp BP Pulse Ox 99.8 F 94 14 107/75 97 04/27/18 18:23 04/27/18 19:00 04/27/18 18:23 04/27/18 18:23 04/27/18 18:23 Intake & Output 04/26/18 04/27/18 04/28/18 06:59 06:59 06:59 Intake Total 3977 2795 2111 Output Total 2100 2800 2000 Balance 1877 -5 111 Weight 63.3 kg 64.9 kg General appearance: PRESENT: no acute distress Eye exam: PRESENT: PERRLA, scleral icterus Respiratory exam: PRESENT: clear to auscultation carolyn Cardiovascular exam: PRESENT: +S1, +S2 GI/Abdominal exam: PRESENT: soft Neurological exam: PRESENT: alert Results Laboratory Results: 04/27/18 00:27 04/27/18 00:27 04/27/18 04/27/18 00:27 00:27 WBC 5.6 RBC 2.20 L Hgb 8.2 L Hct 22.6 L MCV 103 H MCH 37.5 H MCHC 36.5 H RDW 27.1 H Plt Count 245 Seg Neutrophils % Not Reportable Lymphocytes % Not Reportable Monocytes % Not Reportable Eosinophils % Not Reportable Basophils % Not Reportable Absolute Neutrophils Not Reportable Absolute Lymphocytes Not Reportable Absolute Monocytes Not Reportable Absolute Eosinophils Not Reportable Absolute Basophils Not Reportable Sodium 141.2 Potassium 4.7 Chloride 104 Carbon Dioxide 27 Anion Gap 10 BUN 18 Creatinine 0.68 Est GFR ( Amer) > 60 Est GFR (Non-Af Amer) > 60 Glucose 121 H Calcium 9.4 Total Bilirubin 3.5 H AST 97 H ALT 55 H Alkaline Phosphatase 159 H Total Protein 6.6 Albumin 3.9 Impressions: Chest X-Ray 04/11/18 00:00 IMPRESSION: No significant interval change in the chest. Body Scan Nuclear Medicine 04/17/18 00:00 IMPRESSION: FOCAL ACTIVITY AT THE BASE OF THE LEFT THUMB CONSISTENT WITH DEGENERATIVE CHANGE. OTHERWISE UNREMARKABLE BONE SCAN. Qualifiers - * PATIENT BEING DISCHARGED WITH ANY OF THE FOLLOWING DIAGNOSIS: No
[2018-04-27] MEDS: NORMAL SALINE 1000 ML 1,000 ML with POTASSIUM CHLORIDE 20 MEQ, MAGNESIUM SULFATE 8 MEQ,... IV SCH ×5 (22:02)
[2018-04-28] MEDS: HYDROMORPHONE HCL INJ/PF 2 MG/ML AMPULE IV PRN ×2 (00:21→06:43)
[2018-04-28] MEDS: PROMETHAZINE HCL INJ 25 MG/1 ML VIAL IV PRN ×2 (00:21→06:44)
[2018-04-28] MEDS: OXYCODONE HCL IR 5 MG TABLET PO PRN (02:34)
[2018-04-28] MEDS: GABAPENTIN 300 MG CAPSULE PO SCH (06:43)
[2018-04-28] MEDS: MORPHINE SULFATE SR 30 MG TABLET PO SCH (09:59)
[2018-04-28] MEDS: HYDROXYUREA 500 MG CAPSULE PO SCH (09:59)
[2018-04-28] MEDS: FOLIC ACID 1 MG TABLET PO SCH (10:01)
[2018-04-28] MEDS ORDERED: ONDANSETRON 4 MG TAB.RAPDIS ONE (12:06)
[2018-04-28] MEDS ORDERED: ONDANSETRON 4 MG TAB.RAPDIS SL ONE (12:30)
[2018-04-28 15:53] VITALS: BP 95/56
== END 2018-04-28 16:52 | disposition home or self-care (01) | DRG 812 ==
LOC: EEVIPCON 13:20 → 3W 13:20
PROVIDERS: ADMIT Internal Medicine; ATTEND Internal Medicine
PROC: 30273N1 Transfusion of Nonautologous Red Blood Cells into Products of Conception, Circulatory, Percutaneous Approach (ICD-10-PCS; principal; 2018-04-16)
PROC: 30273N1 Transfusion of Nonautologous Red Blood Cells into Products of Conception, Circulatory, Percutaneous Approach (ICD-10-PCS; 2018-04-20)
PROC: 30273N1 Transfusion of Nonautologous Red Blood Cells into Products of Conception, Circulatory, Percutaneous Approach (ICD-10-PCS; 2018-04-26)
PROC: 3E0234Z Introduction of Serum, Toxoid and Vaccine into Muscle, Percutaneous Approach (ICD-10-PCS; 2018-04-28)
DX: D57.00 Hb-SS disease with crisis, unspecified (principal); R17 Unspecified jaundice; M89.8X0 Other specified disorders of bone, multiple sites; Z23 Encounter for immunization; Z86.14 Personal history of Methicillin resistant Staphylococcus aureus infection; Z79.01 Long term (current) use of anticoagulants; Z79.891 Long term (current) use of opiate analgesic; Z79.899 Other long term (current) drug therapy
CPT/HCPCS: 36415; 36430; 71046; 78306; 80048; 80053; 80076; 81001; 82607; 82728; 82746; 83010; 83540; 83550; 83615; 84439; 84443; 85025; 85027; 85045; 85610; 85730; 86850; 86900; 86901; 86902; 86920; 87040; 87086; 87088; 87186; 90686; A9561; J1170; J1956; J2550; J3411; J3475; J3480; J3490; J7030; P9016; Q9969; S0119

== ENCOUNTER 2018-05-12 08:15 | Emergency (ER) | payer MEDICAID ==
--- NOTE | 2018-05-12 08:55 | ER Document Report ---
ED GI/ - General Mode of Arrival: Ambulatory Information source: Patient TRAVEL OUTSIDE OF THE [place] IN LAST 30 DAYS: No <GEORGINA RÍOS - Last Filed: 05/12/18 11:47> <RAÚL CAMP - Last Filed: 05/12/18 14:54> - General Chief Complaint: Sickle Cell Crisis Stated Complaint: STOMACH/CHEST PAIN Time Seen by Provider: 05/12/18 08:48 Notes: 48-year-old female with sickle cell disease who presents to the emergency department today with complaints of vomiting, diarrhea, abdominal pain, and associated chest pain for 2 days. Patient mentions that she now is developing "pain all over" which is consistent with her normal sickle cell flares. Patient states that she took the last of her oxycodone last night. Patient states that she has not taken her temperature because she "was too worn out to check it". Patient denies any blood in her vomiting/diarrhea or shortness of breath. (GEORGINA RÍOS) - Related Data Allergies/Adverse Reactions: doxycycline [Doxycycline] Allergy (Severe, Verified 05/12/18 08:19) Past Medical History - General Information source: Patient - Social History Smoking Status: Never Smoker Cigarette use (# per day): No Frequency of alcohol use: None Drug Abuse: None Family History: Reviewed & Not Pertinent - Past Medical History Cardiac Medical History: Reports: Hx Heart Murmur Renal/ Medical History: Reports: Hx Ovarian Cysts Skin Medical History: Reports Hx MRSA Psychiatric Medical History: Reports: Hx Anxiety, Hx Depression Infectious Medical History: Reports: Hx MRSA - History of MRSA osteomyelitis Past Surgical History: Reports: Hx Appendectomy, Hx Section, Hx Cholecystectomy, Hx Orthopedic Surgery - R knee, Hx Tonsillectomy - Immunizations Immunizations up to date: Yes Hx Diphtheria, Pertussis, Tetanus Vaccination: Yes Hx Pneumococcal Vaccination: 03/20/14 <GEORGINA RÍOS - Last Filed: 05/12/18 11:47> Review of Systems - Review of Systems Constitutional: No symptoms reported EENT: No symptoms reported Cardiovascular: See HPI, Chest pain Respiratory: denies: Short of breath Gastrointestinal: See HPI, Abdominal pain, Diarrhea, Vomiting Genitourinary: No symptoms reported Female Genitourinary: No symptoms reported Musculoskeletal: No symptoms reported Skin: No symptoms reported Hematologic/Lymphatic: No symptoms reported Neurological/Psychological: No symptoms reported -: Yes All other systems reviewed and negative <GEORGINA RÍOS - Last Filed: 05/12/18 11:47> Physical Exam <GEORGINA RÍOS - Last Filed: 05/12/18 11:47> <RAÚL CAMP - Last Filed: 05/12/18 14:54> - Vital signs Vitals: Temp Pulse Resp BP Pulse Ox 98.9 F 77 16 97/62 L 99 05/12/18 08:25 05/12/18 08:25 05/12/18 08:25 05/12/18 08:25 05/12/18 08:25 - Notes Notes: PHYSICAL EXAM GENERAL: Alert, interacts well. No acute distress. HEAD: Normocephalic, atraumatic. EYES: Pupils equal, round, and reactive to light. Extraocular movements intact. ENT: Dry oral mucosa, tongue midline. NECK: Full range of motion. Supple. Trachea midline. CHEST: Palpable port in left chest. LUNGS: Clear to auscultation bilaterally, no wheezes, rales, or rhonchi. No respiratory distress. HEART: Regular rate and rhythm. No murmurs, gallops, or rubs. ABDOMEN: Soft, diffuse mild abdominal tenderness with palpation. Non-distended. Bowel sounds present in all 4 quadrants. Slight guarding, no rigidity or rebound. EXTREMITIES: Moves all 4 extremities spontaneously. No edema, radial and dorsalis pedis pulses 2/4 bilaterally. No cyanosis. NEUROLOGICAL: Alert and oriented x3. Normal speech. PSYCH: Normal affect, normal mood. SKIN: Warm, dry, normal turgor. No rashes or lesions noted. (GEORGINA RÍOS) Course - Laboratory Result Diagrams: 05/12/18 11:30 05/12/18 11:30 <GEORGINA RÍOS - Last Filed: 05/12/18 11:47> - Laboratory Result Diagrams: 05/12/18 11:30 05/12/18 11:30 <RAÚL CAMP - Last Filed: 05/12/18 14:54> - Re-evaluation Re-evalutation: 05/12/18 14:00 CBC shows stable anemia with hemoglobin 8.1, on discharge on the eighth it was 8.2, no leukocytosis, platelets are normal, reticulocyte count is 4.13 absolute reticulocyte count of 0.091, CO2 is normal, no evidence of dehydration at this time, total and direct bilirubin are both elevated at 4.8 and 1.0, this is consistent with her prior baseline, lipase normal at 122.5, test is negative, rapid flu a and B are negative, chest x-ray was ordered for possible acute chest syndrome and this chest x-ray is negative, EKG is also negative. Patient is not hypoxic or tachypneic. Patient has no evidence of pain at this time, she is not tachycardic. Patient remains persistently mildly hypotensive, this is compared to prior blood pressures from other hospital visits and is consistent with her baseline. Patient has been hydrated with 2 L of normal saline, no further vomiting or diarrhea while in the emergency department. Discussed the case with Dr. Mcneil who states that the patient should not be prescribed any further narcotics for use at home, agrees with using Zofran, I have also advised the patient to start taking Imodium if she has further diarrhea. Agrees with discharged home and follow-up on Tuesday morning at 8 AM. ( RAÚL CAMP) - Vital Signs Vital signs: Temp Pulse Resp BP Pulse Ox 98.9 F 77 15 99/63 L 99 05/12/18 08:25 05/12/18 08:25 05/12/18 12:01 05/12/18 12:00 05/12/18 12:01 - Laboratory Laboratory results interpreted by me: 05/12/18 05/12/18 11:30 11:30 RBC 2.21 L Hgb 8.1 L Hct 23.2 L MCV 105 H MCH 36.7 H RDW 28.2 H Lymphocytes % (Manual) 47 H Retic Count (auto) 4.13 H Sodium 146.0 H Potassium 3.4 L Chloride 113 H BUN 6 L Total Bilirubin 4.8 H Direct Bilirubin 1.0 H AST 42 H Alkaline Phosphatase 133 H - EKG Interpretation by Me Additional EKG results interpreted by me: 05/12/18 14:02 EKG shows sinus rhythm at a rate of 61, normal axis, normal intervals, no ST segment elevations or depressions, no T wave inversions per my interpretation. ( RAÚL CAMP) Discharge <GEORGINA RÍOS - Last Filed: 05/12/18 11:47> <RAÚL CAMP - Last Filed: 05/12/18 14:54> - Discharge Clinical Impression: Nausea vomiting and diarrhea, Sickle cell anemia with crisis Condition: Stable Disposition: HOME, SELF-CARE Additional Instructions: Please use the Zofran 1 tablet under the tongue every 4 hours as needed for nausea or vomiting. Please drink plenty of fluids. Please slowly reintroduce food starting with bland foods such as bananas, rice, applesauce and toast and initially avoid greasy foods. You may use Imodium as directed on the package [id number]. Please return to the emergency department for worsening pain, for fevers, for uncontrollable vomiting or for new any new or concerning symptoms. Please follow-up with Dr. Mcneil at 8 AM on Tuesday morning at her office. Prescriptions: Ondansetron [Zofran Odt 4 mg Tablet] 1 - 2 tab PO Q4H PRN #15 tab.rapdis PRN Reason: For Nausea/Vomiting Referrals: HOMA BARRAZA MD [Primary Care Provider] - Follow up as needed ANH MCNEIL MD [ACTIVE STAFF] - 05/15/18 8:00 am Scribe Attestation: 05/12/18 14:54 I personally performed the services described in the documentation, reviewed and edited the documentation which was dictated to the scribe in my presence, and it accurately records my words and actions. (RAÚL CAMP) Scribe Documentation - Scribe Written by Scribe:: Jocelin Ghosh, 05/12/2018 [id number] acting as scribe for :: Marcelino <GEORGINA RÍOS - Last Filed: 05/12/18 11:47>
[2018-05-12] MEDS ORDERED: ONDANSETRON HCL INJ/PF 4 MG/2 ML SDV IV ONE ×2 (08:56→13:54)
[2018-05-12] MEDS ORDERED: HYDROMORPHONE HCL INJ/PF 2 MG/ML AMPULE IV ONE ×2 (08:57→12:00)
[2018-05-12 10:15] LABS: A TYPE INFLUENZA AG NEGATIVE (NEGATIVE); B INFLUENZA AG NEGATIVE (NEGATIVE)
--- NOTE | 2018-05-12 10:23 | RADIOLOGY REPORT (SQ) ---
EXAM DESCRIPTION: CHEST 2 VIEWS COMPLETED DATE/TIME: 05/12/2018 10:05 am REASON FOR STUDY: sickle cell chest pain COMPARISON: 04/11/2018. EXAM PARAMETERS: NUMBER OF VIEWS: two views TECHNIQUE: Digital Frontal and Lateral radiographic views of the chest acquired. RADIATION DOSE: NA LIMITATIONS: none FINDINGS: LUNGS AND PLEURA: No opacities, masses or pneumothorax. No pleural effusion. MEDIASTINUM AND HILAR STRUCTURES: No masses or contour abnormalities. HEART AND VASCULAR STRUCTURES: Heart normal size. No evidence for failure. BONES: No acute findings. HARDWARE: Vascular access port. OTHER: No other significant finding. IMPRESSION: NO ACUTE RADIOGRAPHIC FINDING IN THE CHEST. TECHNICAL DOCUMENTATION: JOB ID: [id number] [employer]- All Rights Reserved Reading location - IP/workstation name: [email or web address]
[2018-05-12] MEDS: NORMAL SALINE 1000 ML 1,000 ML IV PRN ×2 (10:58→12:56)
[2018-05-12 11:44] LABS: ABSOLUTE RETICS # 0.091 10^6/uL (0.028-0.122); HEMATOCRIT 23.2 % (36.0-47.0); HEMOGLOBIN 8.1 g/dL (12.0-15.5); MEAN CORPUSCULAR HEMOGLOBIN 36.7 pg (27.0-33.4); MEAN CORPUSCULAR VOLUME 105 fl (80-97); PLATELET COUNT 286 10^3/uL (150-450); RED BLOOD COUNT 2.21 10^6/uL (3.72-5.28); RED CELL DISTRIBUTION WIDTH 28.2 % (11.5-14.0); RETICULOCYTE COUNT (AUTO) 4.13 % (0.66-2.85); WHITE BLOOD COUNT 5.5 10^3/uL (4.0-10.5)
[2018-05-12 11:56] LABS: ALANINE AMINOTRANSFERASE 36 U/L (9-52); ALBUMIN 4.4 g/dL (3.5-5.0); ALKALINE PHOSPHATASE 133 U/L (38-126); ANION GAP 11 (5-19); ASPARTATE AMINO TRANSFERASE 42 U/L (14-36); BILIRUBIN,TOTAL 4.8 mg/dL (0.2-1.3); BLOOD UREA NITROGEN 6 mg/dL (7-20); CALCIUM 9.4 mg/dL (8.4-10.2); CARBON DIOXIDE 22 mmol/L (22-30); CHLORIDE 113 mmol/L (98-107); GLUCOSE 105 mg/dL (75-110); LIPASE 122.5 U/L (23-300); POTASSIUM 3.4 mmol/L (3.6-5.0); TOTAL PROTEIN 7.3 g/dL (6.3-8.2)
[2018-05-12] MEDS ORDERED: LIDOCAINE 2% VISCOUS SOLN 20 ML UDCUP PO ONE (12:00)
[2018-05-12] MEDS ORDERED: MAG HYDROX/AL HYDROX/SIMETH SUSP 30 ML UDCUP PO ONE (12:00)
[2018-05-12] MEDS ORDERED: METOCLOPRAMIDE HCL ORAL SOLN 10 MG/10 ML UDCUP PO ONE (12:00)
[2018-05-12 12:14] LABS: ABSOLUTE LYMPHOCYTES# (MANUAL) 2.6 10^3/uL (0.5-4.7); ABSOLUTE MONOCYTES # (MANUAL) 0.3 10^3/uL (0.1-1.4); ABSOLUTE NEUTROPHILS# (MANUAL) 2.5 10^3/uL (1.7-8.2); BASOPHILS % (MANUAL) 0 % (0-2); BURR CELLS 1+; EOSINOPHILS % (MANUAL) 2 % (0-6); LYMPHOCYTES % (MANUAL) 47 % (13-45); MONOCYTES % (MANUAL) 5 % (3-13); OVALOCYTES 1+; POLYCHROMASIA 1+; SEGMENTED NEUTROPHILS % (MAN) 46 % (42-78); TOTAL CELLS COUNTED 100
[2018-05-12 12:16] LABS: PLATELET COMMENT ADEQUATE
[2018-05-12] MEDS ORDERED: OXYCODONE-ACETAMINOPHEN 5-325 MG TABLET PO ONE (13:54)
[2018-05-12] MEDS ORDERED: ONDANSETRON ODT 4 MG TAB (6 TAB/ER DISP) PO PRN (13:59)
[2018-05-12 15:16] VITALS: BP 105/69
--- NOTE | 2018-05-12 19:16 | EKG REPORT ---
SEVERITY:- NORMAL ECG - SINUS RHYTHM : Confirmed by: No Boss MD 12-May-2018 19:15:16
== END 2018-05-12 15:15 | disposition home or self-care (01) ==
LOC: ER 08:15
DX: D57.00 Hb-SS disease with crisis, unspecified (principal); R11.2 Nausea with vomiting, unspecified; R19.7 Diarrhea, unspecified; R10.9 Unspecified abdominal pain; R07.9 Chest pain, unspecified; Z79.899 Other long term (current) drug therapy
CPT/HCPCS: 93005; 36591; 96376; 99284; 96361; 96374; 96375; 36415; 83690; 84703; 85025; 85045; 80053; 87804; 71046; 93010; J3490 ×3; J1170; J2405; J7030

== ENCOUNTER 2018-05-16 20:21 | Inpatient (IN) | payer MEDICAID ==
--- NOTE | 2018-05-16 22:41 | ER Document Report ---
ED Medical Screen (RME) - General Chief Complaint: Sickle Cell Crisis Stated Complaint: LEG PAIN Time Seen by Provider: 05/16/18 22:39 Mode of Arrival: Ambulatory Information source: Patient Notes: 48-year-old female presented to ED for complaint of sickle cell pain to the arms legs and abdomen. She states she came into the emergency room on for viral infection with nausea and vomiting. She was states she was given a GI cocktail and sent home. She states she has been nausea and vomiting since then and has not been able to keep anything down. Patient is alert and oriented respirations regular and unlabored abdomen is tender to palpation. She does have active bowel sounds and clear lung sounds. She states she has a port and she does not want peripheral blood drawn and does not want a peripheral IV. I have greeted and performed a rapid initial assessment of this patient. A comprehensive ED assessment and evaluation of the patient, analysis of test results and completion of medical decision making process will be conducted by an additional ED providers. TRAVEL OUTSIDE OF THE [place] IN LAST 30 DAYS: No - Related Data Allergies/Adverse Reactions: doxycycline [Doxycycline] Allergy (Severe, Verified 05/12/18 08:19) Past Medical History - Past Medical History Cardiac Medical History: Reports: Hx Heart Murmur Denies: Hx Atrial Fibrillation, Hx Congestive Heart Failure, Hx Coronary Artery Disease, Hx Heart Attack, Hx Hypercholesterolemia, Hx Hypertension, Hx Peripheral Vascular Disease Pulmonary Medical History: Denies: Hx Tuberculosis Neurological Medical History: Denies: Hx Seizures Renal/ Medical History: Reports: Hx Ovarian Cysts. Denies: Hx Peritoneal Dialysis Malignancy Medical History: Denies: Hx Leukemia Musculoskeltal Medical History: Denies Hx Arthritis, Denies Hx Fibromyalgia, Denies Hx Muscular Dystrophy Skin Medical History: Reports Hx MRSA Psychiatric Medical History: Reports: Hx Anxiety, Hx Depression Traumatic Medical History: Denies: Hx Fractures Infectious Medical History: Reports: Hx MRSA - History of MRSA osteomyelitis. Denies: Hx HIV Past Surgical History: Reports: Hx Appendectomy, Hx Section, Hx Cholecystectomy, Hx Orthopedic Surgery - R knee, Hx Tonsillectomy. Denies: Hx Bowel Surgery, Hx Coronary Artery Bypass Graft, Hx Gastric Bypass Surgery, Hx Herniorrhaphy, Hx Mastectomy, Hx Pacemaker, Hx Tubal Ligation - Immunizations Immunizations up to date: Yes Hx Diphtheria, Pertussis, Tetanus Vaccination: Yes History of Influenza Vaccine for 03/2017 - 08/2017 Season: Refused Physical Exam - Vital signs Vitals: Temp Pulse Resp BP Pulse Ox 98.1 F 77 18 107/66 99 05/16/18 20:28 05/16/18 20:28 05/16/18 20:28 05/16/18 20:28 05/16/18 20:28 Course - Vital Signs Vital signs: Temp Pulse Resp BP Pulse Ox 98.1 F 77 18 107/66 99 05/16/18 20:28 05/16/18 20:28 05/16/18 20:28 05/16/18 20:28 05/16/18 20:28 Doctor's Discharge - Discharge Referrals: HOMA BARRAZA MD [Primary Care Provider] - Follow up as needed
[2018-05-17] MEDS ORDERED: HYDROMORPHONE HCL INJ/PF 2 MG/ML AMPULE IV ONE ×2 (00:29→02:52)
[2018-05-17] MEDS ORDERED: ONDANSETRON HCL INJ/PF 4 MG/2 ML SDV IV ONE ×2 (00:29→02:53)
--- NOTE | 2018-05-17 00:36 | ER Document Report ---
ED General - General Chief Complaint: Sickle Cell Crisis Stated Complaint: LEG PAIN Time Seen by Provider: 05/16/18 22:39 Mode of Arrival: Ambulatory Notes: Patient is a 48-year-old female with a past medical history of sickle cell anemia that comes to the emergency department for chief complaint of 5 days of 6 symptoms with a main complaint of vomiting and inability to keep her medications down. She states she is on hydroxyurea and oxycodone, states she has vomited 6 times today. She also states that she has had a cough, some congestion, vague shortness of breath. Denies chest pain. She reports pain in her abdomen and legs, she was evaluated 5 to get this ago for pain in the same locations. She denies fever. She follows with Dr. Parker, hematology. She has a history of cholecystectomy, appendectomy, splenectomy, tubal ligation. TRAVEL OUTSIDE OF THE [place] IN LAST 30 DAYS: No - Related Data Allergies/Adverse Reactions: doxycycline [Doxycycline] Allergy (Severe, Verified 05/12/18 08:19) Past Medical History - General Information source: Patient - Social History Smoking Status: Never Smoker Frequency of alcohol use: None Drug Abuse: None Lives with: Family Family History: Reviewed & Not Pertinent - Past Medical History Cardiac Medical History: Reports: Hx Heart Murmur Denies: Hx Atrial Fibrillation, Hx Congestive Heart Failure, Hx Coronary Artery Disease, Hx Heart Attack, Hx Hypercholesterolemia, Hx Hypertension, Hx Peripheral Vascular Disease Pulmonary Medical History: Denies: Hx Tuberculosis Neurological Medical History: Denies: Hx Seizures Renal/ Medical History: Reports: Hx Ovarian Cysts. Denies: Hx Peritoneal Dialysis Malignancy Medical History: Denies: Hx Leukemia Musculoskeletal Medical History: Denies Hx Arthritis, Denies Hx Fibromyalgia, Denies Hx Muscular Dystrophy Skin Medical History: Reports Hx MRSA Psychiatric Medical History: Reports: Hx Anxiety, Hx Depression Traumatic Medical History: Denies: Hx Fractures Infectious Medical History: Reports: Hx MRSA - History of MRSA osteomyelitis. Denies: Hx HIV Past Surgical History: Reports: Hx Appendectomy, Hx Section, Hx Cholecystectomy, Hx Orthopedic Surgery - R knee, Hx Tonsillectomy. Denies: Hx Bowel Surgery, Hx Coronary Artery Bypass Graft, Hx Gastric Bypass Surgery, Hx Herniorrhaphy, Hx Mastectomy, Hx Pacemaker, Hx Tubal Ligation - Immunizations Immunizations up to date: Yes Hx Diphtheria, Pertussis, Tetanus Vaccination: Yes Hx Pneumococcal Vaccination: 03/20/14 Review of Systems - Review of Systems Constitutional: See HPI EENT: See HPI Cardiovascular: No symptoms reported Respiratory: See HPI Gastrointestinal: See HPI Genitourinary: No symptoms reported Female Genitourinary: No symptoms reported Musculoskeletal: See HPI Skin: No symptoms reported Hematologic/Lymphatic: No symptoms reported Neurological/Psychological: No symptoms reported Physical Exam - Vital signs Vitals: Temp Pulse Resp BP Pulse Ox 98.1 F 77 18 107/66 99 05/16/18 20:28 05/16/18 20:28 05/16/18 20:28 05/16/18 20:28 05/16/18 20:28 - Notes Notes: GENERAL: Alert, interacts well. No acute distress. HEAD: Normocephalic, atraumatic. EYES: Pupils equal, round, and reactive to light. Extraocular movements intact. ENT: Oral mucosa moist, tongue midline. Oropharynx unremarkable. Airway patent. Minimal congestion, no nasal septal hematoma, TM's intact. NECK: Full range of motion. Supple. Trachea midline. LUNGS: Clear to auscultation bilaterally, no wheezes, rales, or rhonchi. No respiratory distress. HEART: Regular rate and rhythm. No murmur ABDOMEN: Soft, non-tender. Non-distended. Bowel sounds present in all 4 quadrants. GENITOURINARY: Deferred EXTREMITIES: Moves all 4 extremities spontaneously. No edema, normal radial and dorsalis pedis pulses bilaterally. No cyanosis. BACK: no cervical, thoracic, lumbar midline tenderness. No saddle anesthesia, normal distal neurovascular exam. NEUROLOGICAL: Alert and oriented x3. Normal speech. [cranial nerves II through XII grossly intact]. PSYCH: Normal affect, normal mood. SKIN: Warm, dry, normal turgor. No rashes or lesions noted. Course - Re-evaluation Re-evalutation: Patient is not tachycardic, she appears to have a viral illness, she does not appear toxic. You no fever. CBC, reticulocytes, chemistry, bilirubin without significant change from prior. Given a dose of potassium. Urinalysis with contamination but possible infection. Given Keflex. After multiple doses of pain medication patient reports still feeling uncomfortable and uncomfortable going home. She states that she has had a problem filling her prescriptions because of difficulty with insurance coverage and new policies, she states that because of this she is in constant pain at home. Patient will be discussed with her provider for possible admission for sickle cell pain crisis and possible UTI. Discussed with Dr. Wyatt. Discussed with Dr. Roberson, patient's provider, patient will be admitted to the hospital. - Vital Signs Vital signs: Temp Pulse Resp BP Pulse Ox 98.1 F 77 18 107/66 99 05/16/18 20:28 05/16/18 20:28 05/16/18 20:28 05/16/18 20:28 05/16/18 20:28 - Laboratory Result Diagrams: 05/17/18 01:02 05/17/18 01:02 Laboratory results interpreted by me: 05/17/18 05/17/18 05/17/18 01:02 01:02 01:33 RBC 2.17 L Hgb 8.0 L Hct 22.8 L MCV 105 H MCH 37.0 H RDW 27.5 H Lymphocytes % (Manual) 47 H Sodium 146.8 H Potassium 3.3 L Chloride 113 H Carbon Dioxide 21 L Glucose 118 H Total Bilirubin 4.9 H Direct Bilirubin 1.3 H Urine Blood SMALL H Urine Urobilinogen 4.0 H Ur Leukocyte Esterase LARGE H Discharge - Discharge Clinical Impression: Sickle cell pain crisis Vomiting Qualifiers: Vomiting type: unspecified Vomiting Intractability: intractable Nausea presence : with nausea Qualified Code(s): R11.2 - Nausea with vomiting, unspecified Abdominal pain Qualifiers: Abdominal location: generalized Qualified Code(s): R10.84 - Generalized abdominal pain Condition: Stable Disposition: ADMITTED INPATIENT Admitting Provider: Da Unit Admitted: Medical Floor
[2018-05-17 01:30] LABS: ABSOLUTE RETICS # 0.048 10^6/uL (0.028-0.122); HEMATOCRIT 22.8 % (36.0-47.0); MEAN CORPUSCULAR HGB CONC 35.2 g/dL (32.0-36.0); MEAN CORPUSCULAR VOLUME 105 fl (80-97); PLATELET COUNT 271 10^3/uL (150-450); RED BLOOD COUNT 2.17 10^6/uL (3.72-5.28); RED CELL DISTRIBUTION WIDTH 27.5 % (11.5-14.0); WHITE BLOOD COUNT 6.8 10^3/uL (4.0-10.5)
[2018-05-17 01:53] LABS: ALANINE AMINOTRANSFERASE 33 U/L (9-52); ALBUMIN 4.6 g/dL (3.5-5.0); ALKALINE PHOSPHATASE 124 U/L (38-126); ANION GAP 13 (5-19); ASPARTATE AMINO TRANSFERASE 36 U/L (14-36); BILIRUBIN,DIRECT 1.3 mg/dL (0.0-0.4); BILIRUBIN,TOTAL 4.9 mg/dL (0.2-1.3); BLOOD UREA NITROGEN 9 mg/dL (7-20); CALCIUM 9.4 mg/dL (8.4-10.2); CARBON DIOXIDE 21 mmol/L (22-30); CHLORIDE 113 mmol/L (98-107); GLUCOSE 118 mg/dL (75-110); LIPASE 126.8 U/L (23-300); POTASSIUM 3.3 mmol/L (3.6-5.0); SODIUM 146.8 mmol/L (137-145); TOTAL PROTEIN 7.7 g/dL (6.3-8.2)
[2018-05-17 01:55] LABS: ABSOLUTE LYMPHOCYTES# (MANUAL) 3.2 10^3/uL (0.5-4.7); ABSOLUTE MONOCYTES # (MANUAL) 0.4 10^3/uL (0.1-1.4); ABSOLUTE NEUTROPHILS# (MANUAL) 2.9 10^3/uL (1.7-8.2); BASOPHILS % (MANUAL) 0 % (0-2); EOSINOPHILS % (MANUAL) 5 % (0-6); LYMPHOCYTES % (MANUAL) 47 % (13-45); MONOCYTES % (MANUAL) 6 % (3-13); NUCLEATED RED BLOOD CELLS 1 /100 WBC (0); SEGMENTED NEUTROPHILS % (MAN) 42 % (42-78); TOTAL CELLS COUNTED 100
[2018-05-17 01:56] LABS: APPEARANCE,URINE CLOUDY; BILIRUBIN,URINE NEGATIVE (NEGATIVE); COLOR,URINE YELLOW; GLUCOSE, URINE NEGATIVE (NEGATIVE); KETONES,URINE NEGATIVE (NEGATIVE); LEUKOCYTE ESTERASE,URINE LARGE (NEGATIVE); NITRITE,URINE NEGATIVE (NEGATIVE); PROTEIN,URINE NEGATIVE (NEGATIVE); URINE SPECIFIC GRAVITY 1.012
[2018-05-17 01:56] LABS: ANISOCYTOSIS 3+; OVALOCYTES SLIGHT; PLATELET COMMENT ADEQUATE; PLATELET GIANT PRESENT; PLATELET LARGE PRESENT; POIKILOCYTOSIS SLIGHT; TARGET CELLS 1+
--- NOTE | 2018-05-17 01:57 | RADIOLOGY REPORT (SQ) ---
EXAM DESCRIPTION: XR CHEST 1 VIEW COMPLETED DATE/TME: 05/17/2018 00:31 CLINICAL HISTORY: 48 years, Female, cough, shortness of breath, sickle cell COMPARISON: 05/12/2018 chest x-ray NUMBER OF VIEWS: 1 TECHNIQUE: Upright portable chest LIMITATIONS: None. FINDINGS: The heart size is normal. Wxerem-a-Fibj catheter in place. Calcified granulomata are suggested bilaterally. Lungs are otherwise clear. No pneumothorax. IMPRESSION: No acute cardiopulmonary process copyright 2010 [employer]- All Rights Reserved
[2018-05-17] MEDS ORDERED: FAMOTIDINE 20 MG TABLET PO ONE (02:52)
[2018-05-17] MEDS ORDERED: SUCRALFATE 1 GM TABLET PO ONE (02:52)
[2018-05-17] MEDS ORDERED: CEPHALEXIN 500 MG CAPSULE PO ONE (04:05)
[2018-05-17] MEDS ORDERED: POTASSIUM CHLORIDE 10 MEQ CAPSULE.ER PO ONE (04:05)
[2018-05-17] MEDS: POTASSI CL 40 MEQ/D5-1/2NS 1L 40 MEQ/1,000 ML RTUINJ IV PRN ×2 (04:59→19:16)
[2018-05-17] MEDS ORDERED: HYDROXYUREA 500 MG CAPSULE PO ONE (05:00)
[2018-05-17 05:46] LABS: URINE AMPHETAMINES SCREEN NEGATIVE; URINE BARBITURATES SCREEN NEGATIVE; URINE BENZODIAZEPINES SCREEN UNCONFIRMED POSITIVE; URINE COCAINE SCREEN NEGATIVE; URINE MARIJUANA (THC) SCREEN NEGATIVE; URINE METHADONE SCREEN NEGATIVE; URINE PHENCYCLIDINE SCREEN NEGATIVE
[2018-05-17] MEDS: PROMETHAZINE HCL INJ 25 MG/1 ML VIAL IV PRN ×3 (06:15→20:45)
[2018-05-17] MEDS: OXYCODONE HCL IR 5 MG TABLET PO PRN ×3 (06:51→19:13)
[2018-05-17] MEDS: ENOXAPARIN SODIUM INJ 40 MG/0.4 ML DISP.SYRIN SUBCUT SCH (12:49)
[2018-05-17] MEDS: HYDROXYUREA 500 MG CAPSULE PO SCH ×2 (13:09→20:44)
[2018-05-17] MEDS: HYDROMORPHONE HCL INJ/PF 2 MG/ML AMPULE IV PRN ×2 (16:41→20:46)
[2018-05-17] MEDS ORDERED: HYDROXYUREA 500 MG CAPSULE PO SCH (18:00)
[2018-05-17] MEDS ORDERED: (PENDING PHARMACY ID) (Oxycodone Hcl [Oxycontin] 40 MG) PO PRN (18:07)
[2018-05-17] MEDS ORDERED: PROMETHAZINE HCL 25 MG TABLET PO PRN (18:07)
--- NOTE | 2018-05-17 18:09 | PDOC H&P ---
History of Present Illness Admission Date/PCP: 05/17/18 04:26 HOMA BARRAZA MD History of Present Illness: WILLIE ALAN is a 48 year old female,She came to the emergency room twice for evaluation of vomiting, she said she has stomach flu virus, she is not able to keep any food down, she has sickle cell disease,. At the second emergency room visit she was not willing to go home because of the persistent vomiting. 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 Past Surgical History Past Surgical History: Reports: Appendectomy, Section, Cholecystectomy , Orthopedic Surgery - R knee, Tonsillectomy Social History Lives with: Family Smoking Status: Never Smoker Frequency of Alcohol Use: None Hx Recreational Drug Use: No Drugs: None Hx Prescription Drug Abuse: No - Advance Directive Resuscitation Status: Full Code Family History Family History: Reviewed & Not Pertinent Parental Family History Reviewed: Yes Children Family History Reviewed: Yes Sibling(s) Family History Reviewed.: Yes Medication/Allergy Home Medications: RX: Epoetin Federico [Procrit] 20,000 unit SUBCUT FR@1000 04/11/18 RX: Epoetin Federico [Procrit] 40,000 unit SUBCUT FR@1000 04/11/18 RX: Folic Acid [Folvite 1 mg Tablet] 1 mg PO DAILY 04/11/18 RX: Gabapentin [Neurontin 300 mg Capsule] 300 mg PO Q8 04/11/18 RX: Hydroxyurea [Hydrea 500 mg Capsule] 500 mg PO TID 04/11/18 RX: Multivitamin [Tab-A-Yosvany (Multiple Vitamin) Tablet] 1 tab PO DAILY 04/11/18 RX: Promethazine HCl [Phenergan 25 mg Tablet] 25 mg PO Q6HP PRN 04/11/18 RX: Rivaroxaban [Xarelto] 20 mg PO QPM 04/11/18 RX: Oxycodone HCl [Roxicodone] 30 mg PO Q6HP PRN #20 tablet 04/27/18 Oxycodone HCl [Oxycontin] 40 mg PO Q8HP PRN 05/17/18 Allergies/Adverse Reactions: doxycycline [Doxycycline] Allergy (Severe, Verified 05/12/18 08:19) Review of Systems Constitutional: ABSENT: chills, fever(s), headache(s), weight gain, weight loss Eyes: ABSENT: visual disturbances Ears: ABSENT: hearing changes Cardiovascular: ABSENT: chest pain, dyspnea on exertion, edema, orthropnea, palpitations Respiratory: ABSENT: cough, hemoptysis Gastrointestinal: PRESENT: vomiting Genitourinary: ABSENT: dysuria, hematuria Musculoskeletal: PRESENT: back pain, deformity Integumentary: ABSENT: rash, wounds Neurological: ABSENT: abnormal gait, abnormal speech, confusion, dizziness, focal weakness, syncope Psychiatric: ABSENT: anxiety, depression, homidical ideation, suicidal ideation Endocrine: ABSENT: cold intolerance, heat intolerance, menstrual abnormalities, polydipsia, polyuria Hematologic/Lymphatic: ABSENT: easy bleeding, easy bruising, lymphadenopathy Physical Exam Vital Signs: Temp Pulse Resp BP Pulse Ox 98.9 F 102 H 16 119/53 L 96 05/17/18 16:01 05/17/18 16:01 05/17/18 16:01 05/17/18 16:01 05/17/18 16:01 Intake & Output 05/16/18 05/17/18 05/18/18 06:59 06:59 06:59 Intake Total 1120 Balance 1120 Weight 57.4 kg General appearance: PRESENT: mild distress Head exam: PRESENT: atraumatic, normocephalic Eye exam: PRESENT: PERRLA Neck exam: PRESENT: full ROM Respiratory exam: PRESENT: clear to auscultation carolyn Cardiovascular exam: PRESENT: RRR, +S1, +S2 Vascular exam: PRESENT: normal capillary refill GI/Abdominal exam: PRESENT: normal bowel sounds, soft Rectal exam: PRESENT: deferred Neurological exam: PRESENT: alert Psychiatric exam: PRESENT: appropriate affect, normal mood Skin exam: PRESENT: dry, intact, warm Results Impressions: Chest X-Ray 05/17/18 00:31 IMPRESSION: No acute cardiopulmonary process copyright 2011 [employer]- All Rights Reserved Assessment & Plan - Diagnosis (1) Persistent vomiting Is this a current diagnosis for this admission?: Yes Plan: Patient is admitted for management (2) Sickle cell hemoglobin C disease Qualifiers: Sickle-cell associated disorders: with unspecified crisis Qualified Code(s) : D57.219 - Sickle-cell/Hb-C disease with crisis, unspecified Is this a current diagnosis for this admission?: Yes
[2018-05-17] MEDS: RIVAROXABAN 10 MG TABLET PO SCH (20:45)
[2018-05-17] MEDS: GABAPENTIN 300 MG CAPSULE PO SCH (20:45)
[2018-05-18] MEDS: PROMETHAZINE HCL INJ 25 MG/1 ML VIAL IV PRN ×5 (00:54→22:11)
[2018-05-18] MEDS: HYDROMORPHONE HCL INJ/PF 2 MG/ML AMPULE IV PRN ×6 (00:54→22:12)
[2018-05-18] MEDS: OXYCODONE HCL SR 40 MG TABLET PO PRN (01:58)
[2018-05-18] MEDS: GABAPENTIN 300 MG CAPSULE PO SCH ×3 (05:20→22:11)
[2018-05-18 06:01] LABS: HEMATOCRIT 17.2 % (36.0-47.0); MEAN CORPUSCULAR HEMOGLOBIN 36.5 pg (27.0-33.4); MEAN CORPUSCULAR HGB CONC 35.4 g/dL (32.0-36.0); MEAN CORPUSCULAR VOLUME 103 fl (80-97); PLATELET COUNT 192 10^3/uL (150-450); RED BLOOD COUNT 1.66 10^6/uL (3.72-5.28); RED CELL DISTRIBUTION WIDTH 26.4 % (11.5-14.0); WHITE BLOOD COUNT 10.6 10^3/uL (4.0-10.5)
[2018-05-18 06:19] LABS: HEMOGLOBIN 6.1 g/dL (12.0-15.5)
[2018-05-18 06:21] LABS: ALANINE AMINOTRANSFERASE 20 U/L (9-52); ALBUMIN 3.9 g/dL (3.5-5.0); ALKALINE PHOSPHATASE 113 U/L (38-126); ANION GAP 9 (5-19); ASPARTATE AMINO TRANSFERASE 31 U/L (14-36); BILIRUBIN,DIRECT 0.9 mg/dL (0.0-0.4); BILIRUBIN,TOTAL 4.4 mg/dL (0.2-1.3); BLOOD UREA NITROGEN 15 mg/dL (7-20); CALCIUM 9.1 mg/dL (8.4-10.2); CARBON DIOXIDE 23 mmol/L (22-30); CHLORIDE 109 mmol/L (98-107); GLUCOSE 101 mg/dL (75-110); POTASSIUM 5.1 mmol/L (3.6-5.0); SODIUM 141.3 mmol/L (137-145); TOTAL PROTEIN 6.7 g/dL (6.3-8.2)
[2018-05-18 06:24] LABS: ABSOLUTE LYMPHOCYTES# (MANUAL) 3.8 10^3/uL (0.5-4.7); ABSOLUTE MONOCYTES # (MANUAL) 0.7 10^3/uL (0.1-1.4); ABSOLUTE NEUTROPHILS# (MANUAL) 5.7 10^3/uL (1.7-8.2); BASOPHILS % (MANUAL) 1 % (0-2); EOSINOPHILS % (MANUAL) 2 % (0-6); LYMPHOCYTES % (MANUAL) 36 % (13-45); MONOCYTES % (MANUAL) 7 % (3-13); NUCLEATED RED BLOOD CELLS 1 /100 WBC (0); SEGMENTED NEUTROPHILS % (MAN) 54 % (42-78); TOTAL CELLS COUNTED 100; TOXIC GRANULATION 1+
[2018-05-18 06:25] LABS: ANISOCYTOSIS 3+; HOWELL-JOLLY BODIES PRESENT; PLATELET COMMENT ADEQUATE; POIKILOCYTOSIS 1+; SCHISTOCYTES 1+; SICKLE RED CELLS 1+
[2018-05-18] MEDS: OXYCODONE HCL IR 5 MG TABLET PO PRN (08:35)
[2018-05-18] MEDS: ENOXAPARIN SODIUM INJ 40 MG/0.4 ML DISP.SYRIN SUBCUT SCH (09:41)
[2018-05-18] MEDS: HYDROXYUREA 500 MG CAPSULE PO SCH ×2 (09:41→17:54)
[2018-05-18] MEDS: MULTIVITAMIN TABLET PO SCH (09:41)
[2018-05-18] MEDS: POTASSI CL 40 MEQ/D5-1/2NS 1L 40 MEQ/1,000 ML RTUINJ IV PRN (09:43)
[2018-05-18] MEDS: EPOETIN ALFA INJ 40000 UNIT/1 ML (RENAL) SUBCUT SCH (12:25)
[2018-05-18] MEDS: EPOETIN ALFA INJ 20000 UNIT/1 ML VIAL (RENAL) SUBCUT SCH (12:27)
[2018-05-18] MEDS: FOLIC ACID 1 MG TABLET PO SCH (12:36)
[2018-05-18] MEDS ORDERED: NORMAL SALINE 250 ML IV PRN ×2 (13:57)
[2018-05-18 14:17] LABS: ABSOLUTE RETICS # 0.032 10^6/uL (0.028-0.122); RETICULOCYTE COUNT (AUTO) 1.87 % (0.66-2.85)
[2018-05-18 15:27] LABS: FOLATE 8.52 ng/mL (>2.76)
--- NOTE | 2018-05-18 20:35 | PDOC PROGRESS REPORT ---
Subjective Progress Note for:: 05/18/18 Subjective:: Patient was admitted yesterday the hemoglobin is less than 7 Reason For Visit: PERSISTENT VOMITING,UTI,SICKLE CELL DISEASE?PAIN Physical Exam Vital Signs: Temp Pulse Resp BP Pulse Ox 99.1 F 93 17 95/55 L 96 05/18/18 18:49 05/18/18 18:49 05/18/18 18:49 05/18/18 18:49 05/18/18 18:49 Intake & Output 05/17/18 05/18/18 05/19/18 06:59 06:59 06:59 Intake Total 2800 2952 Output Total 1600 2150 Balance 1200 802 Weight 58.6 kg General appearance: PRESENT: no acute distress Eye exam: PRESENT: PERRLA Respiratory exam: PRESENT: clear to auscultation carolyn Cardiovascular exam: PRESENT: +S1, +S2 GI/Abdominal exam: PRESENT: soft Results Laboratory Results: 05/18/18 05:30 05/18/18 05:30 05/18/18 05/18/18 05/18/18 05:30 05:30 05:30 WBC 10.6 H RBC 1.66 L Hgb 6.1 L Hct 17.2 L MCV 103 H MCH 36.5 H MCHC 35.4 RDW 26.4 H Plt Count 192 Seg Neutrophils % Not Reportable Lymphocytes % Not Reportable Monocytes % Not Reportable Eosinophils % Not Reportable Basophils % Not Reportable Absolute Neutrophils Not Reportable Absolute Lymphocytes Not Reportable Absolute Monocytes Not Reportable Absolute Eosinophils Not Reportable Absolute Basophils Not Reportable Retic Count (auto) 1.87 Absolute Retic 0.032 Sodium 141.3 Potassium 5.1 H Chloride 109 H Carbon Dioxide 23 Anion Gap 9 BUN 15 Creatinine 0.87 Est GFR ( Amer) > 60 Est GFR (Non-Af Amer) > 60 Glucose 101 Calcium 9.1 Iron TIBC % Saturation Ferritin Total Bilirubin 4.4 H AST 31 ALT 20 Alkaline Phosphatase 113 Total Protein 6.7 Albumin 3.9 Vitamin B12 Folate Blood Type Antibody Screen 05/18/18 05/18/18 05:30 14:24 WBC RBC Hgb Hct MCV MCH MCHC RDW Plt Count Seg Neutrophils % Lymphocytes % Monocytes % Eosinophils % Basophils % Absolute Neutrophils Absolute Lymphocytes Absolute Monocytes Absolute Eosinophils Absolute Basophils Retic Count (auto) Absolute Retic Sodium Potassium Chloride Carbon Dioxide Anion Gap BUN Creatinine Est GFR ( Amer) Est GFR (Non-Af Amer) Glucose Calcium Iron 173.0 H TIBC 212 L % Saturation 82 Ferritin 2950.00 H Total Bilirubin AST ALT Alkaline Phosphatase Total Protein Albumin Vitamin B12 330.0 Folate 8.52 Blood Type O POSITIVE Antibody Screen NEGATIVE Impressions: Chest X-Ray 05/17/18 00:31 IMPRESSION: No acute cardiopulmonary process copyright 2010 [employer]- All Rights Reserved 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: Sickle-cell associated disorders: with unspecified crisis Qualified Code(s) : D57.219 - Sickle-cell/Hb-C disease with crisis, unspecified Is this a current diagnosis for this admission?: Yes (3) Sickle cell anemia Qualifiers: Sickle-cell associated disorders: with unspecified crisis Qualified Code(s) : D57.00 - Hb-SS disease with crisis, unspecified; D57.0 - Hb-SS disease with crisis Is this a current diagnosis for this admission?: Yes Plan: Transfuse 2 units of packed red blood cells
[2018-05-19] MEDS: OXYCODONE HCL IR 5 MG TABLET PO PRN (00:25)
[2018-05-19 01:02] LABS: ABSOLUTE BASOPHILS # (AUTO) 0.1 10^3/uL (0.0-0.2); ABSOLUTE EOSINOPHILS # (AUTO) 0.4 10^3/uL (0.0-0.6); ABSOLUTE MONOCYTES (AUTO) 0.9 10^3/uL (0.1-1.4); ABSOLUTE NEUT (AUTO) 4.5 10^3/uL (1.7-8.2); BASOPHILS % (AUTO) 1.4 % (0-2); EOSINOPHILS % (AUTO) 3.7 % (0-6); HEMATOCRIT 22.8 % (36.0-47.0); HEMOGLOBIN 8.1 g/dL (12.0-15.5); LYMPHOCYTES % (AUTO) 39.9 % (13-45); MEAN CORPUSCULAR HEMOGLOBIN 34.6 pg (27.0-33.4); MEAN CORPUSCULAR HGB CONC 35.6 g/dL (32.0-36.0); MONOCYTES % (AUTO) 9.5 % (3-13); PLATELET COUNT 191 10^3/uL (150-450); RED BLOOD COUNT 2.35 10^6/uL (3.72-5.28); RED CELL DISTRIBUTION WIDTH 24.9 % (11.5-14.0); SEGMENTED NEUTROPHILS % (AUTO) 45.5 % (42-78); TOTAL CELLS COUNTED % (AUTO) 100 %
[2018-05-19 01:05] LABS: MEAN CORPUSCULAR VOLUME 97 fl (80-97)
[2018-05-19 01:19] LABS: ANISOCYTOSIS 3+; PLATELET COMMENT ADEQUATE; POIKILOCYTOSIS 1+; SCHISTOCYTES SLIGHT; SICKLE RED CELLS 1+; TOXIC GRANULATION SLIGHT
[2018-05-19] MEDS: HYDROMORPHONE HCL INJ/PF 2 MG/ML AMPULE IV PRN ×5 (02:36→20:09)
[2018-05-19] MEDS: PROMETHAZINE HCL INJ 25 MG/1 ML VIAL IV PRN ×4 (06:36→20:09)
[2018-05-19] MEDS: GABAPENTIN 300 MG CAPSULE PO SCH ×3 (06:37→21:10)
[2018-05-19] MEDS ORDERED: EPOETIN ALFA INJ 40000 UNIT/1 ML (RENAL) SUBCUT SCH (10:00)
[2018-05-19] MEDS ORDERED: EPOETIN ALFA INJ 20000 UNIT/1 ML VIAL (RENAL) SUBCUT SCH (10:00)
[2018-05-19] MEDS: POTASSI CL 40 MEQ/D5-1/2NS 1L 40 MEQ/1,000 ML RTUINJ IV PRN (10:29)
[2018-05-19] MEDS: FOLIC ACID 1 MG TABLET PO SCH (10:29)
[2018-05-19] MEDS: MULTIVITAMIN TABLET PO SCH (10:29)
[2018-05-19] MEDS: HYDROXYUREA 500 MG CAPSULE PO SCH ×2 (10:30→18:14)
--- NOTE | 2018-05-19 14:11 | PDOC PROGRESS REPORT ---
Subjective Progress Note for:: 05/19/18 Subjective:: The urine culture is growing strep specie ,mot likely it is enterococcus specie, yaw emprically start IV ampicillin She was initially admitted for observation, this is transitioned to inpatient care Reason For Visit: SICKLE CELL CRISIS ANEMIA Physical Exam Vital Signs: Temp Pulse Resp BP Pulse Ox 100.0 F 96 16 97/64 L 94 05/19/18 11:21 05/19/18 11:21 05/19/18 11:21 05/19/18 11:21 05/19/18 11:21 Intake & Output 05/18/18 05/19/18 05/20/18 06:59 06:59 06:59 Intake Total 4550 Output Total 3150 Balance 1400 Weight 58.6 kg General appearance: PRESENT: mild distress Eye exam: PRESENT: PERRLA Respiratory exam: PRESENT: clear to auscultation carolyn Cardiovascular exam: PRESENT: +S1, +S2 GI/Abdominal exam: PRESENT: soft Extremities exam: PRESENT: other Neurological exam: PRESENT: alert Results Laboratory Results: 05/19/18 00:25 05/18/18 05/19/18 14:24 00:25 WBC 10.0 RBC 2.35 L Hgb 8.1 L Hct 22.8 L MCV 97 D MCH 34.6 H MCHC 35.6 RDW 24.9 H Plt Count 191 Seg Neutrophils % 45.5 Lymphocytes % 39.9 Monocytes % 9.5 Eosinophils % 3.7 Basophils % 1.4 Absolute Neutrophils 4.5 Absolute Lymphocytes 4.0 Absolute Monocytes 0.9 Absolute Eosinophils 0.4 Absolute Basophils 0.1 Blood Type O POSITIVE Antibody Screen NEGATIVE Impressions: Chest X-Ray 05/17/18 00:31 IMPRESSION: No acute cardiopulmonary process copyright 2011 [employer]- All Rights Reserved 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: Sickle-cell associated disorders: with unspecified crisis Qualified Code(s) : D57.219 - Sickle-cell/Hb-C disease with crisis, unspecified Is this a current diagnosis for this admission?: Yes (3) Sickle cell anemia Qualifiers: Sickle-cell associated disorders: with unspecified crisis Qualified Code(s) : D57.00 - Hb-SS disease with crisis, unspecified; D57.0 - Hb-SS disease with crisis Is this a current diagnosis for this admission?: Yes (4) Urinary tract infection Qualifiers: Urinary tract infection type: site unspecified Hematuria presence: without hematuria Qualified Code(s): N39.0 - Urinary tract infection, site not specified Is this a current diagnosis for this admission?: Yes Plan: Start IV ampicillin
[2018-05-19] MEDS: AMPICILLIN SODIUM 500 MG in NORMAL SALINE 25 ML IV SCH ×2 (16:03→20:10)
[2018-05-19] MEDS: DEXTROSE 5%-1/2 NORMAL SALINE 1,000 ML IV PRN (16:05)
[2018-05-19] MEDS: RIVAROXABAN 10 MG TABLET PO SCH ×2 (18:14→18:18)
[2018-05-20] MEDS: PROMETHAZINE HCL INJ 25 MG/1 ML VIAL IV PRN ×6 (00:18→20:54)
[2018-05-20] MEDS: HYDROMORPHONE HCL INJ/PF 2 MG/ML AMPULE IV PRN ×6 (00:18→20:55)
[2018-05-20] MEDS: AMPICILLIN SODIUM 500 MG in NORMAL SALINE 25 ML IV SCH ×4 (02:33→20:55)
[2018-05-20] MEDS: GABAPENTIN 300 MG CAPSULE PO SCH ×3 (05:39→21:24)
[2018-05-20 06:08] LABS: ABSOLUTE BASOPHILS # (AUTO) 0.1 10^3/uL (0.0-0.2); ABSOLUTE EOSINOPHILS # (AUTO) 0.4 10^3/uL (0.0-0.6); ABSOLUTE LYMPHOCYTES (AUTO) 2.2 10^3/uL (0.5-4.7); ABSOLUTE MONOCYTES (AUTO) 0.7 10^3/uL (0.1-1.4); ABSOLUTE NEUT (AUTO) 4.4 10^3/uL (1.7-8.2); BASOPHILS % (AUTO) 1.6 % (0-2); EOSINOPHILS % (AUTO) 5.5 % (0-6); HEMATOCRIT 23.5 % (36.0-47.0); HEMOGLOBIN 8.3 g/dL (12.0-15.5); LYMPHOCYTES % (AUTO) 27.8 % (13-45); MEAN CORPUSCULAR HGB CONC 35.5 g/dL (32.0-36.0); MEAN CORPUSCULAR VOLUME 99 fl (80-97); MONOCYTES % (AUTO) 9.1 % (3-13); PLATELET COUNT 209 10^3/uL (150-450); RED BLOOD COUNT 2.38 10^6/uL (3.72-5.28); RED CELL DISTRIBUTION WIDTH 25.3 % (11.5-14.0); TOTAL CELLS COUNTED % (AUTO) 100 %; WHITE BLOOD COUNT 7.9 10^3/uL (4.0-10.5)
[2018-05-20 07:01] LABS: ANISOCYTOSIS 3+; PLATELET COMMENT ADEQUATE; POIKILOCYTOSIS 1+; POLYCHROMASIA 2+; TARGET CELLS 1+
[2018-05-20 07:02] LABS: BURR CELLS 1+; SICKLE RED CELLS 1+
[2018-05-20] MEDS: FOLIC ACID 1 MG TABLET PO SCH (09:38)
[2018-05-20] MEDS: DEXTROSE 5%-1/2 NORMAL SALINE 1,000 ML IV PRN (09:38)
[2018-05-20] MEDS: HYDROXYUREA 500 MG CAPSULE PO SCH ×2 (09:38→18:43)
[2018-05-20] MEDS: MULTIVITAMIN TABLET PO SCH (09:38)
--- NOTE | 2018-05-20 18:31 | PDOC PROGRESS REPORT ---
Subjective Progress Note for:: 05/20/18 Subjective:: Patient seen by the bedside, complaining of pain ,fatigue Reason For Visit: SICKLE CELL CRISIS ANEMIA Physical Exam Vital Signs: Temp Pulse Resp BP Pulse Ox 98.2 F 84 16 97/52 L 98 05/20/18 16:00 05/20/18 16:00 05/20/18 16:00 05/20/18 16:00 05/20/18 16:00 Intake & Output 05/19/18 05/20/18 05/21/18 06:59 06:59 06:59 Intake Total 4550 4465 705 Output Total 3150 2500 2000 Balance 1400 1965 -1295 Weight 58.6 kg 58.9 kg General appearance: PRESENT: no acute distress Eye exam: PRESENT: PERRLA Respiratory exam: PRESENT: clear to auscultation carolyn Cardiovascular exam: PRESENT: +S1, +S2 GI/Abdominal exam: PRESENT: soft Neurological exam: PRESENT: alert, CN II-XII grossly intact Results Laboratory Results: 05/20/18 05:45 05/20/18 05:45 WBC 7.9 RBC 2.38 L Hgb 8.3 L Hct 23.5 L MCV 99 H MCH 35.0 H MCHC 35.5 RDW 25.3 H Plt Count 209 Seg Neutrophils % 56.0 Lymphocytes % 27.8 Monocytes % 9.1 Eosinophils % 5.5 Basophils % 1.6 Absolute Neutrophils 4.4 Absolute Lymphocytes 2.2 Absolute Monocytes 0.7 Absolute Eosinophils 0.4 Absolute Basophils 0.1 Impressions: Chest X-Ray 05/17/18 00:31 IMPRESSION: No acute cardiopulmonary process copyright 2011 [employer]- All Rights Reserved 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: Sickle-cell associated disorders: with unspecified crisis Qualified Code(s) : D57.219 - Sickle-cell/Hb-C disease with crisis, unspecified Is this a current diagnosis for this admission?: Yes (3) Sickle cell anemia Qualifiers: Sickle-cell associated disorders: with unspecified crisis Qualified Code(s) : D57.00 - Hb-SS disease with crisis, unspecified; D57.0 - Hb-SS disease with crisis Is this a current diagnosis for this admission?: Yes - Plan Summary Plan Summary: Continue treatment
[2018-05-20] MEDS: RIVAROXABAN 10 MG TABLET PO SCH (18:43)
[2018-05-21] MEDS: HYDROMORPHONE HCL INJ/PF 2 MG/ML AMPULE IV PRN ×6 (01:08→21:36)
[2018-05-21] MEDS: PROMETHAZINE HCL INJ 25 MG/1 ML VIAL IV PRN ×6 (01:08→21:36)
[2018-05-21] MEDS: DEXTROSE 5%-1/2 NORMAL SALINE 1,000 ML IV PRN ×2 (01:09→17:36)
[2018-05-21] MEDS: AMPICILLIN SODIUM 500 MG in NORMAL SALINE 25 ML IV SCH ×4 (03:13→21:38)
[2018-05-21] MEDS: GABAPENTIN 300 MG CAPSULE PO SCH ×3 (05:31→21:37)
[2018-05-21] MEDS: HYDROXYUREA 500 MG CAPSULE PO SCH ×2 (09:30→17:37)
[2018-05-21] MEDS: FOLIC ACID 1 MG TABLET PO SCH (09:30)
[2018-05-21] MEDS: MULTIVITAMIN TABLET PO SCH (09:30)
[2018-05-21] MEDS: RIVAROXABAN 10 MG TABLET PO SCH (17:37)
--- NOTE | 2018-05-21 18:25 | PDOC PROGRESS REPORT ---
Subjective Progress Note for:: 05/21/18 Subjective:: The urine culture grew Enterococcus faecalis group D, she was empirically started on IV ampicillin, will continue same antibiotic. Reason For Visit: SICKLE CELL CRISIS ANEMIA Physical Exam Vital Signs: Temp Pulse Resp BP Pulse Ox 98.8 F 82 16 93/60 L 98 05/21/18 16:00 05/21/18 16:00 05/21/18 16:00 05/21/18 16:00 05/21/18 16:00 Intake & Output 05/20/18 05/21/18 05/22/18 06:59 06:59 06:59 Intake Total 4465 2415 1075 Output Total 2500 2000 Balance 2207 663 3026 Weight 58.9 kg 60.2 kg General appearance: PRESENT: no acute distress Eye exam: PRESENT: PERRLA Respiratory exam: PRESENT: clear to auscultation carolyn Cardiovascular exam: PRESENT: +S1, +S2 GI/Abdominal exam: PRESENT: soft Neurological exam: PRESENT: alert Results Laboratory Results: 05/20/18 05:45 Impressions: Chest X-Ray 05/17/18 00:31 IMPRESSION: No acute cardiopulmonary process copyright 2011 [employer] All Rights Reserved 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: Sickle-cell associated disorders: with unspecified crisis Qualified Code(s) : D57.219 - Sickle-cell/Hb-C disease with crisis, unspecified Is this a current diagnosis for this admission?: Yes (3) Sickle cell anemia Qualifiers: Sickle-cell associated disorders: with unspecified crisis Qualified Code(s) : D57.00 - Hb-SS disease with crisis, unspecified; D57.0 - Hb-SS disease with crisis Is this a current diagnosis for this admission?: Yes (4) Enterococcus UTI Is this a current diagnosis for this admission?: Yes Plan: Continue IV ampicillin
[2018-05-22] MEDS: HYDROMORPHONE HCL INJ/PF 2 MG/ML AMPULE IV PRN ×6 (01:24→22:50)
[2018-05-22] MEDS: PROMETHAZINE HCL INJ 25 MG/1 ML VIAL IV PRN ×6 (01:25→22:51)
[2018-05-22] MEDS: AMPICILLIN SODIUM 500 MG in NORMAL SALINE 25 ML IV SCH ×4 (02:41→20:49)
[2018-05-22] MEDS: OXYCODONE HCL SR 40 MG TABLET PO PRN ×2 (02:43→21:00)
[2018-05-22] MEDS: GABAPENTIN 300 MG CAPSULE PO SCH ×3 (05:24→21:00)
[2018-05-22] MEDS: MULTIVITAMIN TABLET PO SCH (10:06)
[2018-05-22] MEDS: HYDROXYUREA 500 MG CAPSULE PO SCH ×2 (10:06→18:37)
[2018-05-22] MEDS: FOLIC ACID 1 MG TABLET PO SCH (10:06)
[2018-05-22] MEDS: DEXTROSE 5%-1/2 NORMAL SALINE 1,000 ML IV PRN (11:03)
[2018-05-22] MEDS: RIVAROXABAN 10 MG TABLET PO SCH (18:37)
[2018-05-22 21:04] LABS: ALANINE AMINOTRANSFERASE 141 U/L (9-52); ALBUMIN 3.8 g/dL (3.5-5.0); ALKALINE PHOSPHATASE 189 U/L (38-126); ANION GAP 11 (5-19); ASPARTATE AMINO TRANSFERASE 141 U/L (14-36); BILIRUBIN,DIRECT 0.3 mg/dL (0.0-0.4); BILIRUBIN,TOTAL 2.2 mg/dL (0.2-1.3); BLOOD UREA NITROGEN 12 mg/dL (7-20); CALCIUM 8.7 mg/dL (8.4-10.2); CARBON DIOXIDE 26 mmol/L (22-30); CHLORIDE 104 mmol/L (98-107); GLUCOSE 108 mg/dL (75-110); POTASSIUM 4.1 mmol/L (3.6-5.0); SODIUM 141.4 mmol/L (137-145); TOTAL PROTEIN 6.3 g/dL (6.3-8.2)
[2018-05-22 21:09] LABS: HEMATOCRIT 24.7 % (36.0-47.0); HEMOGLOBIN 8.6 g/dL (12.0-15.5); MEAN CORPUSCULAR HEMOGLOBIN 35.7 pg (27.0-33.4); MEAN CORPUSCULAR HGB CONC 34.8 g/dL (32.0-36.0); PLATELET COUNT 226 10^3/uL (150-450); RED CELL DISTRIBUTION WIDTH 25.2 % (11.5-14.0)
--- NOTE | 2018-05-22 21:15 | PDOC PROGRESS REPORT ---
Subjective Progress Note for:: 05/22/18 Subjective:: She complained of pain of the shoulder, the hips x-ray was obtained, The x-ray did not show any acute pathology of the shoulder on the hips Reason For Visit: SICKLE CELL CRISIS ANEMIA Physical Exam Vital Signs: Temp Pulse Resp BP Pulse Ox 99.2 F 91 16 91/51 L 98 05/22/18 15:23 05/22/18 15:23 05/22/18 15:23 05/22/18 15:23 05/22/18 15:23 Intake & Output 05/21/18 05/22/18 05/23/18 06:59 06:59 06:59 Intake Total 2414 1965 2048 Output Total 1999 Balance 415 1965 2048 Weight 60.2 kg 60.3 kg General appearance: PRESENT: no acute distress Eye exam: PRESENT: PERRLA Respiratory exam: PRESENT: clear to auscultation carolyn Cardiovascular exam: PRESENT: +S1, +S2 GI/Abdominal exam: PRESENT: soft Neurological exam: PRESENT: alert Results Laboratory Results: 05/22/18 20:40 05/22/18 20:40 Sodium 141.4 Potassium 4.1 Chloride 104 Carbon Dioxide 26 Anion Gap 11 BUN 12 Creatinine 0.72 Est GFR ( Amer) > 60 Est GFR (Non-Af Amer) > 60 Glucose 108 Calcium 8.7 Total Bilirubin 2.2 H AST 141 H ALT 141 H Alkaline Phosphatase 189 H Total Protein 6.3 Albumin 3.8 Impressions: Chest X-Ray 05/17/18 00:31 IMPRESSION: No acute cardiopulmonary process copyright 2011 [employer]- All Rights Reserved 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: Sickle-cell associated disorders: with unspecified crisis Qualified Code(s) : D57.219 - Sickle-cell/Hb-C disease with crisis, unspecified Is this a current diagnosis for this admission?: Yes (3) Sickle cell anemia Qualifiers: Sickle-cell associated disorders: with unspecified crisis Qualified Code(s) : D57.00 - Hb-SS disease with crisis, unspecified; D57.0 - Hb-SS disease with crisis Is this a current diagnosis for this admission?: Yes (4) Enterococcus UTI Is this a current diagnosis for this admission?: Yes
[2018-05-22 21:31] LABS: MEAN CORPUSCULAR VOLUME 103 fl (80-97)
[2018-05-22 21:38] LABS: ABSOLUTE LYMPHOCYTES# (MANUAL) 2.3 10^3/uL (0.5-4.7); ABSOLUTE MONOCYTES # (MANUAL) 0.4 10^3/uL (0.1-1.4); ABSOLUTE NEUTROPHILS# (MANUAL) 3.5 10^3/uL (1.7-8.2); BASOPHILS % (MANUAL) 0 % (0-2); EOSINOPHILS % (MANUAL) 3 % (0-6); LYMPHOCYTES % (MANUAL) 36 % (13-45); MONOCYTES % (MANUAL) 6 % (3-13); NUCLEATED RED BLOOD CELLS 39 /100 WBC (0); SEGMENTED NEUTROPHILS % (MAN) 55 % (42-78); TOTAL CELLS COUNTED 100
[2018-05-22 21:39] LABS: ANISOCYTOSIS 3+; POLYCHROMASIA SLIGHT
[2018-05-22 21:40] LABS: POIKILOCYTOSIS 1+; TARGET CELLS 1+; TEAR DROP CELLS SLIGHT
[2018-05-22 21:41] LABS: OVALOCYTES SLIGHT
[2018-05-22 21:48] LABS: WHITE BLOOD COUNT 8.5 10^3/uL (4.0-10.5)
[2018-05-22 21:53] LABS: PLATELET COMMENT ADEQUATE
[2018-05-23] MEDS: HYDROMORPHONE HCL INJ/PF 2 MG/ML AMPULE IV PRN ×5 (02:55→20:02)
[2018-05-23] MEDS: PROMETHAZINE HCL INJ 25 MG/1 ML VIAL IV PRN ×5 (02:55→20:02)
[2018-05-23] MEDS: AMPICILLIN SODIUM 500 MG in NORMAL SALINE 25 ML IV SCH ×4 (03:01→20:03)
[2018-05-23] MEDS: DEXTROSE 5%-1/2 NORMAL SALINE 1,000 ML IV PRN ×2 (03:03→20:05)
[2018-05-23] MEDS: GABAPENTIN 300 MG CAPSULE PO SCH ×3 (07:13→22:31)
[2018-05-23] MEDS: OXYCODONE HCL SR 40 MG TABLET PO PRN (08:52)
[2018-05-23] MEDS: FOLIC ACID 1 MG TABLET PO SCH (10:43)
[2018-05-23] MEDS: HYDROXYUREA 500 MG CAPSULE PO SCH ×2 (10:43→17:47)
[2018-05-23] MEDS: MULTIVITAMIN TABLET PO SCH (10:43)
[2018-05-23] MEDS: OXYCODONE HCL IR 5 MG TABLET PO PRN (14:02)
[2018-05-23] MEDS: RIVAROXABAN 10 MG TABLET PO SCH (17:47)
--- NOTE | 2018-05-23 19:08 | RADIOLOGY REPORT (SQ) ---
EXAM DESCRIPTION: SHOULDER BILAT 2 OR MORE VIEWS COMPLETED DATE/TIME: 05/23/2018 6:34 pm REASON FOR STUDY: pain bilateral shoulder pain. COMPARISON: None. NUMBER OF VIEWS: Three views. TECHNIQUE: Internal rotation, external rotation, and Y view images acquired of the right shoulder. LIMITATIONS: None. FINDINGS: MINERALIZATION: Normal. BONES: No acute fracture or dislocation. No worrisome bone lesions. JOINTS: No dislocation. VISUALIZED LUNGS AND RIBS: There is bilateral airspace disease new from prior chest 28 SOFT TISSUES: No radiopaque foreign body. OTHER: No other significant finding. IMPRESSION: 1. No acute findings involving the right or left shoulder. 2. Fairly extensive bilateral airspace disease new from prior study. TECHNICAL DOCUMENTATION: JOB ID: [id number] [employer]- All Rights Reserved Reading location - IP/workstation name: [email or web address]
--- NOTE | 2018-05-23 19:08 | RADIOLOGY REPORT (SQ) ---
EXAM DESCRIPTION: HIP BILATERAL COMPLETED DATE/TIME: 05/23/2018 6:34 pm REASON FOR STUDY: pain COMPARISON: None. NUMBER OF VIEWS: Two views TECHNIQUE: AP pelvis and additional frog-leg view of both hips. LIMITATIONS: None. FINDINGS: MINERALIZATION: Normal. HIPS: No acute fracture or dislocation. No worrisome bone lesions. PELVIS AND SACRUM: No acute fracture or dislocation. No worrisome bone lesions. PUBIS AND ISCHIUM: No acute fracture. LOWER LUMBAR SPINE: No significant findings as visualized. SOFT TISSUES: No findings. OTHER: No other significant finding. IMPRESSION: NEGATIVE STUDY OF THE PELVIS AND HIPS. TECHNICAL DOCUMENTATION: JOB ID: [id number] [employer]- All Rights Reserved Reading location - IP/workstation name: [email or web address]
--- NOTE | 2018-05-23 19:10 | RADIOLOGY REPORT (SQ) ---
EXAM DESCRIPTION: SACROILIAC JOINTS 3 OR MORE COMPLETED DATE/TIME: 05/23/2018 6:34 pm REASON FOR STUDY: pain COMPARISON: None. NUMBER OF VIEWS: Three views. TECHNIQUE: AP and oblique views of the sacroiliac joints. LIMITATIONS: None. FINDINGS: MINERALIZATION: Normal. BONES: No acute fracture or dislocation. No worrisome bone lesions. No significant osteophytes. JOINTS: The sacroiliac joints are patent. No unusual widening, sclerosis, or fusion. SOFT TISSUES: No soft tissue swelling. No radio-opaque foreign body. OTHER: No other significant finding. IMPRESSION: NORMAL STUDY OF THE SACROILIAC JOINTS. TECHNICAL DOCUMENTATION: JOB ID: [id number] [employer]- All Rights Reserved Reading location - IP/workstation name: [email or web address]
--- NOTE | 2018-05-23 21:16 | PDOC PROGRESS REPORT ---
Subjective Progress Note for:: 05/23/18 Subjective:: She complained of pain of the shoulder, the hips x-ray was obtained, The x-ray did not show any acute pathology of the shoulder on the hips Reason For Visit: SICKLE CELL CRISIS ANEMIA Physical Exam Vital Signs: Temp Pulse Resp BP Pulse Ox 99.2 F 92 18 106/59 L 98 05/23/18 20:10 05/23/18 20:10 05/23/18 20:10 05/23/18 20:10 05/23/18 20:10 Intake & Output 05/22/18 05/23/18 05/24/18 06:59 06:59 06:59 Intake Total 1965 3399 2200 Balance 1965 339 220 Weight 60.3 kg 61 kg General appearance: PRESENT: no acute distress Eye exam: PRESENT: PERRLA Respiratory exam: PRESENT: clear to auscultation carolyn Cardiovascular exam: PRESENT: +S1, +S2 Neurological exam: PRESENT: alert Results Laboratory Results: 05/22/18 20:40 05/22/18 20:40 05/22/18 20:40 WBC 8.5 RBC 2.40 L Hgb 8.6 L Hct 24.7 L MCV 103 H D MCH 35.7 H MCHC 34.8 RDW 25.2 H Plt Count 226 Seg Neutrophils % Not Reportable Lymphocytes % Not Reportable Monocytes % Not Reportable Eosinophils % Not Reportable Basophils % Not Reportable Absolute Neutrophils Not Reportable Absolute Lymphocytes Not Reportable Absolute Monocytes Not Reportable Absolute Eosinophils Not Reportable Absolute Basophils Not Reportable Impressions: Chest X-Ray 05/17/18 00:31 IMPRESSION: No acute cardiopulmonary process copyright 2011 [employer]- All Rights Reserved Hip X-Ray 05/23/18 00:00 IMPRESSION: NEGATIVE STUDY OF THE PELVIS AND HIPS. Sacroiliac Joint X-Ray 05/23/18 00:00 IMPRESSION: NORMAL STUDY OF THE SACROILIAC JOINTS. Shoulder X-Ray 05/23/18 00:00 IMPRESSION: 1. No acute findings involving the right or left shoulder. 2. Fairly extensive bilateral airspace disease new from prior study. 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: Sickle-cell associated disorders: with unspecified crisis Qualified Code(s) : D57.219 - Sickle-cell/Hb-C disease with crisis, unspecified Is this a current diagnosis for this admission?: Yes (3) Sickle cell anemia Qualifiers: Sickle-cell associated disorders: with unspecified crisis Qualified Code(s) : D57.00 - Hb-SS disease with crisis, unspecified; D57.0 - Hb-SS disease with crisis Is this a current diagnosis for this admission?: Yes (4) Enterococcus UTI Is this a current diagnosis for this admission?: Yes
[2018-05-23 21:26] LABS: ARTERIAL BLOOD FIO2 2L; ARTERIAL BLOOD H2CO3 1.43 mmol/L (1.05-1.35); ARTERIAL BLOOD HCO3 27.5 mmol/L (20-24); ARTERIAL BLOOD O2 SATURATION 98.1 % (94-98); ARTERIAL BLOOD PCO2 47.4 mmHg (35-45); ARTERIAL BLOOD PH 7.38 (7.35-7.45); ARTERIAL BLOOD PO2 116.3 mmHg (80-100)
--- NOTE | 2018-05-23 22:30 | RADIOLOGY REPORT (SQ) ---
Clinical History : pneumonia , Exam : PA and lateral views of the chest 05/23/2018 12:00 AM [employer] Comparisons : Portable AP view of the chest May 17, 2018 Findings : There is mild diffuse peribronchial thickening throughout the lungs bilaterally. There are patchy airspace opacities throughout the lung bases. The heart is normal in size. The mediastinal contours are normal in appearance. There is a left subclavian MediPort with its tip in the distal SVC. The thoracic spine is age appropriate. The shoulders are unremarkable. Limited evaluation of the upper abdomen demonstrates no gross abnormalities. Impression: Peribronchial thickening with patchy airspace opacities in the lung bases, likely representing infectious process.
[2018-05-23 22:41] LABS: HEMATOCRIT 23.4 % (36.0-47.0); HEMOGLOBIN 8.3 g/dL (12.0-15.5); MEAN CORPUSCULAR HEMOGLOBIN 36.6 pg (27.0-33.4); MEAN CORPUSCULAR HGB CONC 35.5 g/dL (32.0-36.0); MEAN CORPUSCULAR VOLUME 103 fl (80-97); PLATELET COUNT 197 10^3/uL (150-450); RED BLOOD COUNT 2.27 10^6/uL (3.72-5.28); WHITE BLOOD COUNT 5.5 10^3/uL (4.0-10.5)
[2018-05-23 22:50] LABS: ALANINE AMINOTRANSFERASE 144 U/L (9-52); ALBUMIN 3.9 g/dL (3.5-5.0); ALKALINE PHOSPHATASE 186 U/L (38-126); ANION GAP 12 (5-19); ASPARTATE AMINO TRANSFERASE 132 U/L (14-36); BILIRUBIN,DIRECT 0.5 mg/dL (0.0-0.4); BILIRUBIN,TOTAL 2.6 mg/dL (0.2-1.3); BLOOD UREA NITROGEN 13 mg/dL (7-20); CARBON DIOXIDE 26 mmol/L (22-30); CHLORIDE 103 mmol/L (98-107); GLUCOSE 109 mg/dL (75-110); POTASSIUM 4.3 mmol/L (3.6-5.0); SODIUM 140.8 mmol/L (137-145); TOTAL PROTEIN 6.5 g/dL (6.3-8.2)
[2018-05-23 23:01] LABS: ABSOLUTE LYMPHOCYTES# (MANUAL) 2.6 10^3/uL (0.5-4.7); ABSOLUTE MONOCYTES # (MANUAL) 0.8 10^3/uL (0.1-1.4); ABSOLUTE NEUTROPHILS# (MANUAL) 1.9 10^3/uL (1.7-8.2); BASOPHILS % (MANUAL) 1 % (0-2); EOSINOPHILS % (MANUAL) 2 % (0-6); LYMPHOCYTES % (MANUAL) 48 % (13-45); MONOCYTES % (MANUAL) 15 % (3-13); NUCLEATED RED BLOOD CELLS 82 /100 WBC (0); SEGMENTED NEUTROPHILS % (MAN) 34 % (42-78); TOTAL CELLS COUNTED 100
[2018-05-23 23:03] LABS: ANISOCYTOSIS 3+; PLATELET COMMENT ADEQUATE
[2018-05-23 23:05] LABS: POLYCHROMASIA SLIGHT; TARGET CELLS 1+
[2018-05-23 23:06] LABS: OVALOCYTES SLIGHT; POIKILOCYTOSIS 1+
[2018-05-24] MEDS: PROMETHAZINE HCL INJ 25 MG/1 ML VIAL IV PRN ×6 (00:30→20:45)
[2018-05-24] MEDS: HYDROMORPHONE HCL INJ/PF 2 MG/ML AMPULE IV PRN ×6 (00:31→20:45)
[2018-05-24] MEDS: AMPICILLIN SODIUM 500 MG in NORMAL SALINE 25 ML IV SCH ×2 (04:32→08:33)
[2018-05-24 06:04] LABS: HEMATOCRIT 23.9 % (36.0-47.0); HEMOGLOBIN 8.3 g/dL (12.0-15.5); MEAN CORPUSCULAR HEMOGLOBIN 35.9 pg (27.0-33.4); MEAN CORPUSCULAR HGB CONC 34.7 g/dL (32.0-36.0); MEAN CORPUSCULAR VOLUME 103 fl (80-97); PLATELET COUNT 189 10^3/uL (150-450); RED BLOOD COUNT 2.32 10^6/uL (3.72-5.28); RED CELL DISTRIBUTION WIDTH 26.7 % (11.5-14.0); WHITE BLOOD COUNT 4.7 10^3/uL (4.0-10.5)
[2018-05-24] MEDS: GABAPENTIN 300 MG CAPSULE PO SCH ×3 (06:11→21:51)
[2018-05-24 06:21] LABS: ALANINE AMINOTRANSFERASE 139 U/L (9-52); ALBUMIN 3.6 g/dL (3.5-5.0); ALKALINE PHOSPHATASE 186 U/L (38-126); ANION GAP 10 (5-19); ASPARTATE AMINO TRANSFERASE 133 U/L (14-36); BILIRUBIN,DIRECT 1.1 mg/dL (0.0-0.4); BILIRUBIN,TOTAL 3.2 mg/dL (0.2-1.3); BLOOD UREA NITROGEN 13 mg/dL (7-20); CALCIUM 8.8 mg/dL (8.4-10.2); CARBON DIOXIDE 28 mmol/L (22-30); CHLORIDE 105 mmol/L (98-107); GLUCOSE 124 mg/dL (75-110); POTASSIUM 4.1 mmol/L (3.6-5.0); SODIUM 142.5 mmol/L (137-145); TOTAL PROTEIN 6.1 g/dL (6.3-8.2)
[2018-05-24 06:45] LABS: ABSOLUTE LYMPHOCYTES# (MANUAL) 1.9 10^3/uL (0.5-4.7); ABSOLUTE MONOCYTES # (MANUAL) 0.5 10^3/uL (0.1-1.4); ABSOLUTE NEUTROPHILS# (MANUAL) 2.1 10^3/uL (1.7-8.2); BASOPHILS % (MANUAL) 0 % (0-2); EOSINOPHILS % (MANUAL) 4 % (0-6); LYMPHOCYTES % (MANUAL) 41 % (13-45); MONOCYTES % (MANUAL) 10 % (3-13); SEGMENTED NEUTROPHILS % (MAN) 45 % (42-78); TOTAL CELLS COUNTED 100
[2018-05-24 06:46] LABS: ANISOCYTOSIS 3+; HOWELL-JOLLY BODIES PRESENT; POIKILOCYTOSIS SLIGHT; POLYCHROMASIA SLIGHT; SCHISTOCYTES SLIGHT; SICKLE RED CELLS SLIGHT; TARGET CELLS SLIGHT; TOXIC GRANULATION 1+
[2018-05-24 06:47] LABS: PLATELET COMMENT ADEQUATE
[2018-05-24] MEDS: LEVOFLOXACIN 750 MG/D5W RTU 750 MG/150 ML RTUPB IV SCH (10:26)
[2018-05-24] MEDS: DEXTROSE 5%-1/2 NORMAL SALINE 1,000 ML IV PRN (10:26)
[2018-05-24] MEDS: FOLIC ACID 1 MG TABLET PO SCH (10:27)
[2018-05-24] MEDS: HYDROXYUREA 500 MG CAPSULE PO SCH ×2 (10:27→17:33)
[2018-05-24] MEDS: MULTIVITAMIN TABLET PO SCH (10:27)
[2018-05-24 11:21] LABS: NUCLEATED RED BLOOD CELLS 86 /100 WBC (0)
[2018-05-24] MEDS: RIVAROXABAN 10 MG TABLET PO SCH (17:33)
--- NOTE | 2018-05-24 17:50 | RADIOLOGY REPORT (SQ) ---
EXAM DESCRIPTION: CT ABD/PELVIS WITH IV ONLY COMPLETED DATE/TIME: 05/24/2018 5:26 pm REASON FOR STUDY: ABDOMINAL PAIN /ABNORMAL LFT COMPARISON: None. TECHNIQUE: CT scan of the abdomen and pelvis performed using helical scanning technique with dynamic intravenous contrast injection. No oral contrast. Images reviewed with lung, soft tissue, and bone windows. Reconstructed coronal and sagittal MPR images reviewed. Delayed images for evaluation of the urinary system also acquired. All images stored on PACS. All CT scanners at this facility use dose modulation, iterative reconstruction, and/or weight based d osing when appropriate to reduce radiation dose to as low as reasonably achievable (ALARA). [facility]: Dose Right [facility]: CareDose [facility]: Dose Right [facility]: Teradose 4D [facility]: Portable Zoo CONTRAST TYPE AND DOSE: contrast/concentration: Isovue 350.00 mg/ml; Total Contrast Delivered: 69.0 ml; Total Saline Delivered: 65.0 ml RENAL FUNCTION: GFR > 60. RADIATION DOSE: CT Rad equipment meets quality standard of care and radiation dose reduction techniq ues were employed. CTDIvol: 7.0 - 8.0 mGy. DLP: 1108 mGy-cm.. LIMITATIONS: None. FINDINGS: LOWER CHEST: No significant findings. No nodules or infiltrates. LIVER: Normal size. No masses. No dilated ducts. SPLEEN: Normal size. No focal lesions. PANCREAS: No masses. No significant calcifications. No adjacent inflammation or peripancreatic fluid collections. Pancreatic duct not dilated. GALLBLADDER: Surgically absent. ADRENAL GLANDS: No significant masses or asymmetry. RIGHT KIDNEY AND URETER: No solid masses. No significant calcifications. Mild hydronephrosis. LEFT KIDNEY AND URETER: No solid masses. No significant calcifications. Mild hydronephrosis. AORTA AND VESSELS: No aneurysm. No dissection. Renal arteries, SMA, celiac without stenosis. RETROPERITONEUM: No retroperitoneal adenopathy, hemorrhage or masses. BOWEL AND PERITONEAL CAVITY: No masses or inflammatory changes. No free fluid or peritoneal masses. APPENDIX: Surgically absent. PELVIS: Marked bladder distention to the level of the emboli kiss. ABDOMINAL WALL: No masses. No hernias. BONES: No significant or acute findings. OTHER: No other significant finding. IMPRESSION: Marked bladder distention to the level above mellitus. Mild bilateral hydronephrosis. TECHNICAL DOCUMENTATION: JOB ID: [id number] Quality ID # [id number]: Final reports with documentation of one or more dose reduction techniques (e.g., Au tomated exposure control, adjustment of the mA and/or kV according to patient size, use of iterative reconstruction technique) 2010 [employer]- All Rights Reserved Reading location - IP/workstation name: [email or web address]
[2018-05-24] MEDS: OXYCODONE HCL IR 5 MG TABLET PO PRN (17:52)
--- NOTE | 2018-05-24 18:28 | PDOC PROGRESS REPORT ---
Subjective Progress Note for:: 05/24/18 Subjective:: Patient was seen by the bedside, she complained of pain in the pelvic area, yesterday she complained of pain in both shoulders shoulder x-ray was done, there was a suggestion that she may have pneumonia on the basis of the shoulder x-ray, a chest x-ray was obtained, it confirmed pneumonia, patient was on IV ampicillin for E faecalis UTI, the bacteria is also sensitive to Levaquin, because she has pneumonia on the basis of the chest x-ray the antibiotic was changed from ampicillin to Levaquin. A CAT scan of the abdomen and pelvis with IV contrast was obtained, it demonstrated marked bladder distention with urine with bilateral mild nephrosis suggesting urinary retention Reason For Visit: SICKLE CELL CRISIS ANEMIA Physical Exam Vital Signs: Temp Pulse Resp BP Pulse Ox 99.2 F 86 20 94/56 L 99 05/24/18 15:49 05/24/18 15:49 05/24/18 15:49 05/24/18 15:49 05/24/18 15:49 Intake & Output 05/23/18 05/24/18 05/25/18 06:59 06:59 06:59 Intake Total 3399 2825 2350 Balance 3399 2825 2350 Weight 61 kg 63.6 kg General appearance: PRESENT: no acute distress Eye exam: PRESENT: PERRLA Respiratory exam: PRESENT: clear to auscultation carolyn Cardiovascular exam: PRESENT: +S1, +S2 GI/Abdominal exam: PRESENT: distended, soft Neurological exam: PRESENT: alert Results Laboratory Results: 05/24/18 05:50 05/24/18 05:50 05/23/18 05/23/18 05/23/18 21:10 22:20 22:20 WBC 5.5 RBC 2.27 L Hgb 8.3 L Hct 23.4 L MCV 103 H MCH 36.6 H MCHC 35.5 RDW 26.0 H Plt Count 197 Seg Neutrophils % Not Reportable Lymphocytes % Not Reportable Monocytes % Not Reportable Eosinophils % Not Reportable Basophils % Not Reportable Absolute Neutrophils Not Reportable Absolute Lymphocytes Not Reportable Absolute Monocytes Not Reportable Absolute Eosinophils Not Reportable Absolute Basophils Not Reportable Carbonic Acid 1.43 H HCO3/H2CO3 Ratio 19:1 ABG pH 7.38 ABG pCO2 47.4 H ABG pO2 116.3 H ABG HCO3 27.5 H ABG O2 Saturation 98.1 H ABG Base Excess 2.0 FiO2 2L Sodium 140.8 Potassium 4.3 Chloride 103 Carbon Dioxide 26 Anion Gap 12 BUN 13 Creatinine 0.80 Est GFR ( Amer) > 60 Est GFR (Non-Af Amer) > 60 Glucose 109 Calcium 9.0 Total Bilirubin 2.6 H AST 132 H ALT 144 H Alkaline Phosphatase 186 H Total Protein 6.5 Albumin 3.9 05/24/18 05/24/18 05:50 05:50 WBC 4.7 RBC 2.32 L Hgb 8.3 L Hct 23.9 L MCV 103 H MCH 35.9 H MCHC 34.7 RDW 26.7 H Plt Count 189 Seg Neutrophils % Not Reportable Lymphocytes % Not Reportable Monocytes % Not Reportable Eosinophils % Not Reportable Basophils % Not Reportable Absolute Neutrophils Not Reportable Absolute Lymphocytes Not Reportable Absolute Monocytes Not Reportable Absolute Eosinophils Not Reportable Absolute Basophils Not Reportable Carbonic Acid HCO3/H2CO3 Ratio ABG pH ABG pCO2 ABG pO2 ABG HCO3 ABG O2 Saturation ABG Base Excess FiO2 Sodium 142.5 Potassium 4.1 Chloride 105 Carbon Dioxide 28 Anion Gap 10 BUN 13 Creatinine 0.65 Est GFR ( Amer) > 60 Est GFR (Non-Af Amer) > 60 Glucose 124 H Calcium 8.8 Total Bilirubin 3.2 H AST 133 H ALT 139 H Alkaline Phosphatase 186 H Total Protein 6.1 L Albumin 3.6 Impressions: Hip X-Ray 05/23/18 00:00 IMPRESSION: NEGATIVE STUDY OF THE PELVIS AND HIPS. Sacroiliac Joint X-Ray 05/23/18 00:00 IMPRESSION: NORMAL STUDY OF THE SACROILIAC JOINTS. Shoulder X-Ray 05/23/18 00:00 IMPRESSION: 1. No acute findings involving the right or left shoulder. 2. Fairly extensive bilateral airspace disease new from prior study. Abdomen/Pelvis CT 05/24/18 00:00 IMPRESSION: Marked bladder distention to the level above mellitus. Mild bilateral hydronephrosis. 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: Sickle-cell associated disorders: with unspecified crisis Qualified Code(s) : D57.219 - Sickle-cell/Hb-C disease with crisis, unspecified Is this a current diagnosis for this admission?: Yes (3) Sickle cell anemia Qualifiers: Sickle-cell associated disorders: with unspecified crisis Qualified Code(s) : D57.00 - Hb-SS disease with crisis, unspecified; D57.0 - Hb-SS disease with crisis Is this a current diagnosis for this admission?: Yes (4) Enterococcus UTI Is this a current diagnosis for this admission?: Yes (5) Pneumonia Qualifiers: Pneumonia type: due to unspecified organism Laterality: unspecified laterality Lung location: unspecified part of lung Qualified Code(s): J18.9 - Pneumonia, unspecified organism Is this a current diagnosis for this admission?: Yes Plan: Continue IV Levaquin (6) Bilateral hydronephrosis Is this a current diagnosis for this admission?: Yes Plan: Insert Harris catheter (7) Retention of urine Is this a current diagnosis for this admission?: Yes Plan: Insert Harris catheter, The etiology is most likely from chronic narcotic use
[2018-05-25] MEDS: HYDROMORPHONE HCL INJ/PF 2 MG/ML AMPULE IV PRN ×6 (00:38→20:56)
[2018-05-25] MEDS: PROMETHAZINE HCL INJ 25 MG/1 ML VIAL IV PRN ×6 (00:39→20:56)
[2018-05-25] MEDS: DEXTROSE 5%-1/2 NORMAL SALINE 1,000 ML IV PRN ×2 (03:37→19:35)
[2018-05-25] MEDS: GABAPENTIN 300 MG CAPSULE PO SCH ×3 (08:47→21:19)
[2018-05-25] MEDS: FOLIC ACID 1 MG TABLET PO SCH (10:06)
[2018-05-25] MEDS: MULTIVITAMIN TABLET PO SCH (10:06)
[2018-05-25] MEDS: HYDROXYUREA 500 MG CAPSULE PO SCH ×2 (10:06→17:05)
[2018-05-25] MEDS: LEVOFLOXACIN 750 MG/D5W RTU 750 MG/150 ML RTUPB IV SCH (10:07)
[2018-05-25] MEDS: EPOETIN ALFA INJ 40000 UNIT/1 ML (RENAL) SUBCUT SCH (12:52)
[2018-05-25] MEDS: EPOETIN ALFA INJ 20000 UNIT/1 ML VIAL (RENAL) SUBCUT SCH (12:53)
[2018-05-25] MEDS: OXYCODONE HCL IR 5 MG TABLET PO PRN (14:24)
[2018-05-25] MEDS: RIVAROXABAN 10 MG TABLET PO SCH (17:05)
--- NOTE | 2018-05-25 21:23 | PDOC PROGRESS REPORT ---
Subjective Progress Note for:: 05/25/18 Subjective:: She was seen by the bedside,she has retention of urine Reason For Visit: SICKLE CELL CRISIS ANEMIA Physical Exam Vital Signs: Temp Pulse Resp BP Pulse Ox 98.7 F 75 16 94/52 L 99 05/25/18 08:27 05/25/18 08:27 05/25/18 08:27 05/25/18 08:27 05/25/18 08:27 Intake & Output 05/24/18 05/25/18 05/26/18 06:59 06:59 06:59 Intake Total 2825 3350 1000 Output Total 2400 2700 Balance 2825 950 -1700 Weight 63.6 kg 63.2 kg General appearance: PRESENT: no acute distress Eye exam: PRESENT: PERRLA Respiratory exam: PRESENT: clear to auscultation carolyn Cardiovascular exam: PRESENT: +S1, +S2 GI/Abdominal exam: PRESENT: soft Neurological exam: PRESENT: alert Results Laboratory Results: 05/24/18 05:50 05/24/18 05:50 Impressions: Hip X-Ray 05/23/18 00:00 IMPRESSION: NEGATIVE STUDY OF THE PELVIS AND HIPS. Sacroiliac Joint X-Ray 05/23/18 00:00 IMPRESSION: NORMAL STUDY OF THE SACROILIAC JOINTS. Shoulder X-Ray 05/23/18 00:00 IMPRESSION: 1. No acute findings involving the right or left shoulder. 2. Fairly extensive bilateral airspace disease new from prior study. Abdomen/Pelvis CT 05/24/18 00:00 IMPRESSION: Marked bladder distention to the level above mellitus. Mild bilateral hydronephrosis. 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: Sickle-cell associated disorders: with unspecified crisis Qualified Code(s) : D57.219 - Sickle-cell/Hb-C disease with crisis, unspecified Is this a current diagnosis for this admission?: Yes (3) Sickle cell anemia Qualifiers: Sickle-cell associated disorders: with unspecified crisis Qualified Code(s) : D57.00 - Hb-SS disease with crisis, unspecified; D57.0 - Hb-SS disease with crisis Is this a current diagnosis for this admission?: Yes (4) Enterococcus UTI Is this a current diagnosis for this admission?: Yes (5) Bilateral hydronephrosis Is this a current diagnosis for this admission?: Yes (6) Retention of urine Is this a current diagnosis for this admission?: Yes
[2018-05-26] MEDS: HYDROMORPHONE HCL INJ/PF 2 MG/ML AMPULE IV PRN ×6 (00:54→21:33)
[2018-05-26] MEDS: PROMETHAZINE HCL INJ 25 MG/1 ML VIAL IV PRN ×6 (00:54→21:34)
[2018-05-26] MEDS: GABAPENTIN 300 MG CAPSULE PO SCH ×3 (05:02→21:34)
[2018-05-26] MEDS: MULTIVITAMIN TABLET PO SCH (09:23)
[2018-05-26] MEDS: LEVOFLOXACIN 750 MG/D5W RTU 750 MG/150 ML RTUPB IV SCH (09:24)
[2018-05-26] MEDS: HYDROXYUREA 500 MG CAPSULE PO SCH ×2 (09:25→17:27)
[2018-05-26] MEDS: FOLIC ACID 1 MG TABLET PO SCH (09:34)
[2018-05-26] MEDS: DEXTROSE 5%-1/2 NORMAL SALINE 1,000 ML IV PRN (09:39)
[2018-05-26] MEDS: RIVAROXABAN 10 MG TABLET PO SCH (17:24)
--- NOTE | 2018-05-26 20:39 | PDOC PROGRESS REPORT ---
Subjective Progress Note for:: 05/26/18 Subjective:: She was seen by the bedside,she has retention of urine, Pneumonia, UTI, sickle cell disease Reason For Visit: SICKLE CELL CRISIS ANEMIA Physical Exam Vital Signs: Temp Pulse Resp BP Pulse Ox 99.5 F 94 18 106/66 99 05/26/18 19:42 05/26/18 19:42 05/26/18 19:42 05/26/18 19:42 05/26/18 19:42 Intake & Output 05/25/18 05/26/18 05/27/18 06:59 06:59 06:59 Intake Total 3350 1850 4055 Output Total 2400 4250 2700 Balance 950 -2400 1355 Weight 63.2 kg 63.7 kg General appearance: PRESENT: no acute distress Eye exam: PRESENT: PERRLA Respiratory exam: PRESENT: clear to auscultation carolyn Cardiovascular exam: PRESENT: +S1, +S2 GI/Abdominal exam: PRESENT: soft Neurological exam: PRESENT: alert Results Laboratory Results: 05/24/18 05:50 05/24/18 05:50 Impressions: Hip X-Ray 05/23/18 00:00 IMPRESSION: NEGATIVE STUDY OF THE PELVIS AND HIPS. Sacroiliac Joint X-Ray 05/23/18 00:00 IMPRESSION: NORMAL STUDY OF THE SACROILIAC JOINTS. Shoulder X-Ray 05/23/18 00:00 IMPRESSION: 1. No acute findings involving the right or left shoulder. 2. Fairly extensive bilateral airspace disease new from prior study. Abdomen/Pelvis CT 05/24/18 00:00 IMPRESSION: Marked bladder distention to the level above mellitus. Mild bilateral hydronephrosis. 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: Sickle-cell associated disorders: with unspecified crisis Qualified Code(s) : D57.219 - Sickle-cell/Hb-C disease with crisis, unspecified Is this a current diagnosis for this admission?: Yes (3) Sickle cell anemia Qualifiers: Sickle-cell associated disorders: with unspecified crisis Qualified Code(s) : D57.00 - Hb-SS disease with crisis, unspecified; D57.0 - Hb-SS disease with crisis Is this a current diagnosis for this admission?: Yes (4) Enterococcus UTI Is this a current diagnosis for this admission?: Yes (5) Bilateral hydronephrosis Is this a current diagnosis for this admission?: Yes (6) Retention of urine Is this a current diagnosis for this admission?: Yes
[2018-05-27] MEDS: HYDROMORPHONE HCL INJ/PF 2 MG/ML AMPULE IV PRN ×6 (01:37→21:59)
[2018-05-27] MEDS: PROMETHAZINE HCL INJ 25 MG/1 ML VIAL IV PRN ×6 (01:38→22:00)
[2018-05-27] MEDS: DEXTROSE 5%-1/2 NORMAL SALINE 1,000 ML IV PRN ×2 (01:38→17:56)
[2018-05-27] MEDS: GABAPENTIN 300 MG CAPSULE PO SCH ×3 (05:43→22:01)
[2018-05-27] MEDS: MULTIVITAMIN TABLET PO SCH (09:36)
[2018-05-27] MEDS: FOLIC ACID 1 MG TABLET PO SCH (09:36)
[2018-05-27] MEDS: HYDROXYUREA 500 MG CAPSULE PO SCH ×2 (09:36→17:55)
[2018-05-27] MEDS: LEVOFLOXACIN 750 MG/D5W RTU 750 MG/150 ML RTUPB IV SCH (09:42)
--- NOTE | 2018-05-27 12:04 | PDOC PROGRESS REPORT ---
Subjective Progress Note for:: 05/27/18 Subjective:: Patient is currently doing well Insert a Harris catheter in place draining the urine well without any problems Denied any abdominal pain denied any chest pain No fever no chills Reason For Visit: SICKLE CELL CRISIS ANEMIA Physical Exam Vital Signs: Temp Pulse Resp BP Pulse Ox 99.1 F 84 18 102/51 L 100 05/27/18 08:08 05/27/18 08:08 05/27/18 08:08 05/27/18 08:08 05/27/18 08:08 Intake & Output 05/26/18 05/27/18 05/28/18 06:59 06:59 06:59 Intake Total 1850 5055 Output Total 4250 4650 Balance -2400 405 Weight 63.7 kg General appearance: PRESENT: no acute distress, well-developed, well-nourished Head exam: PRESENT: atraumatic, normocephalic Eye exam: PRESENT: conjunctiva pink, EOMI, PERRLA. ABSENT: scleral icterus Ear exam: PRESENT: normal external ear exam Mouth exam: PRESENT: moist, tongue midline Neck exam: PRESENT: full ROM. ABSENT: carotid bruit, JVD, lymphadenopathy, thyromegaly Respiratory exam: PRESENT: clear to auscultation carolyn Cardiovascular exam: PRESENT: RRR. ABSENT: diastolic murmur, rubs, systolic murmur Pulses: PRESENT: normal dorsalis pedis pul, +2 pedal pulses bilateral Vascular exam: PRESENT: normal capillary refill GI/Abdominal exam: PRESENT: normal bowel sounds, soft. ABSENT: distended, guarding, mass, organolmegaly, rebound, tenderness Rectal exam: PRESENT: deferred Extremities exam: ABSENT: pedal edema Neurological exam: PRESENT: alert, awake, oriented to person, oriented to place , oriented to time, oriented to situation, CN II-XII grossly intact. ABSENT: motor sensory deficit Psychiatric exam: PRESENT: appropriate affect, normal mood. ABSENT: homicidal ideation, suicidal ideation Skin exam: PRESENT: dry, intact, warm. ABSENT: cyanosis, rash Results Laboratory Results: 05/24/18 05:50 05/24/18 05:50 Impressions: Hip X-Ray 05/23/18 00:00 IMPRESSION: NEGATIVE STUDY OF THE PELVIS AND HIPS. Sacroiliac Joint X-Ray 05/23/18 00:00 IMPRESSION: NORMAL STUDY OF THE SACROILIAC JOINTS. Shoulder X-Ray 05/23/18 00:00 IMPRESSION: 1. No acute findings involving the right or left shoulder. 2. Fairly extensive bilateral airspace disease new from prior study. Abdomen/Pelvis CT 05/24/18 00:00 IMPRESSION: Marked bladder distention to the level above mellitus. Mild bilateral hydronephrosis. Assessment & Plan - Diagnosis (1) Bilateral hydronephrosis Is this a current diagnosis for this admission?: Yes (2) Enterococcus UTI Is this a current diagnosis for this admission?: Yes (3) Pneumonia Qualifiers: Pneumonia type: due to unspecified organism Laterality: unspecified laterality Lung location: unspecified part of lung Qualified Code(s): J18.9 - Pneumonia, unspecified organism Is this a current diagnosis for this admission?: Yes (4) Sickle cell anemia Qualifiers: Sickle-cell associated disorders: with unspecified crisis Qualified Code(s) : D57.00 - Hb-SS disease with crisis, unspecified; D57.0 - Hb-SS disease with crisis Is this a current diagnosis for this admission?: Yes - Time Time Spent with patient: 15-24 minutes Medications reviewed and adjusted accordingly: Yes Anticipated discharge: Other Within: Other - Inpatient Certification 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
[2018-05-27] MEDS: RIVAROXABAN 10 MG TABLET PO SCH (17:55)
[2018-05-28] MEDS: HYDROMORPHONE HCL INJ/PF 2 MG/ML AMPULE IV PRN ×6 (02:17→23:19)
[2018-05-28] MEDS: PROMETHAZINE HCL INJ 25 MG/1 ML VIAL IV PRN ×6 (02:17→23:19)
[2018-05-28] MEDS: GABAPENTIN 300 MG CAPSULE PO SCH ×3 (05:10→21:46)
[2018-05-28] MEDS: DEXTROSE 5%-1/2 NORMAL SALINE 1,000 ML IV PRN ×2 (05:11→21:47)
--- NOTE | 2018-05-28 10:27 | PDOC PROGRESS REPORT ---
Subjective Progress Note for:: 05/28/18 Subjective:: Patient is currently doing well Insert a Harris catheter in place draining the urine well without any problems Denied any abdominal pain denied any chest pain No fever no chills Reason For Visit: SICKLE CELL CRISIS ANEMIA Physical Exam Vital Signs: Temp Pulse Resp BP Pulse Ox 99.6 F 91 16 105/62 98 05/28/18 08:01 05/28/18 08:01 05/28/18 08:01 05/28/18 08:01 05/28/18 08:01 Intake & Output 05/27/18 05/28/18 05/29/18 06:59 06:59 06:59 Intake Total 5055 2268 Output Total 4650 2250 Balance 405 18 Weight 63.5 kg 62.9 kg General appearance: PRESENT: no acute distress, well-developed, well-nourished Head exam: PRESENT: atraumatic, normocephalic Eye exam: PRESENT: conjunctiva pink, EOMI, PERRLA. ABSENT: scleral icterus Ear exam: PRESENT: normal external ear exam Mouth exam: PRESENT: moist, tongue midline Neck exam: PRESENT: full ROM. ABSENT: carotid bruit, JVD, lymphadenopathy, thyromegaly Respiratory exam: PRESENT: clear to auscultation carolyn Cardiovascular exam: PRESENT: RRR. ABSENT: diastolic murmur, rubs, systolic murmur Pulses: PRESENT: normal dorsalis pedis pul, +2 pedal pulses bilateral Vascular exam: PRESENT: normal capillary refill GI/Abdominal exam: PRESENT: normal bowel sounds, soft. ABSENT: distended, guarding, mass, organolmegaly, rebound, tenderness Rectal exam: PRESENT: deferred Neurological exam: PRESENT: alert, awake, oriented to person, oriented to place , oriented to time, oriented to situation, CN II-XII grossly intact. ABSENT: motor sensory deficit Psychiatric exam: PRESENT: appropriate affect, normal mood. ABSENT: homicidal ideation, suicidal ideation Skin exam: PRESENT: dry, intact, warm. ABSENT: cyanosis, rash Results Laboratory Results: 05/24/18 05:50 05/24/18 05:50 Impressions: Hip X-Ray 05/23/18 00:00 IMPRESSION: NEGATIVE STUDY OF THE PELVIS AND HIPS. Sacroiliac Joint X-Ray 05/23/18 00:00 IMPRESSION: NORMAL STUDY OF THE SACROILIAC JOINTS. Shoulder X-Ray 05/23/18 00:00 IMPRESSION: 1. No acute findings involving the right or left shoulder. 2. Fairly extensive bilateral airspace disease new from prior study. Abdomen/Pelvis CT 05/24/18 00:00 IMPRESSION: Marked bladder distention to the level above mellitus. Mild bilateral hydronephrosis. Assessment & Plan - Diagnosis (1) Bilateral hydronephrosis Is this a current diagnosis for this admission?: Yes (2) Enterococcus UTI Is this a current diagnosis for this admission?: Yes (3) Pneumonia Qualifiers: Pneumonia type: due to unspecified organism Laterality: unspecified laterality Lung location: unspecified part of lung Qualified Code(s): J18.9 - Pneumonia, unspecified organism Is this a current diagnosis for this admission?: Yes (4) Sickle cell anemia Qualifiers: Sickle-cell associated disorders: with unspecified crisis Qualified Code(s) : D57.00 - Hb-SS disease with crisis, unspecified; D57.0 - Hb-SS disease with crisis Is this a current diagnosis for this admission?: Yes - Time Time Spent with patient: 15-24 minutes Medications reviewed and adjusted accordingly: Yes Anticipated discharge: Home Within: Other - Plan Summary Plan Summary: Continues current medications
[2018-05-28] MEDS: MULTIVITAMIN TABLET PO SCH (10:41)
[2018-05-28] MEDS: LEVOFLOXACIN 750 MG/D5W RTU 750 MG/150 ML RTUPB IV SCH (10:41)
[2018-05-28] MEDS: FOLIC ACID 1 MG TABLET PO SCH (10:41)
[2018-05-28] MEDS: HYDROXYUREA 500 MG CAPSULE PO SCH ×2 (10:41→17:04)
[2018-05-28] MEDS: OXYCODONE HCL IR 5 MG TABLET PO PRN (17:06)
[2018-05-28] MEDS: RIVAROXABAN 10 MG TABLET PO SCH (17:06)
[2018-05-29] MEDS: OXYCODONE HCL IR 5 MG TABLET PO PRN ×2 (01:27→13:41)
[2018-05-29] MEDS: PROMETHAZINE HCL INJ 25 MG/1 ML VIAL IV PRN ×6 (03:22→23:39)
[2018-05-29] MEDS: HYDROMORPHONE HCL INJ/PF 2 MG/ML AMPULE IV PRN ×6 (03:22→23:39)
[2018-05-29] MEDS: GABAPENTIN 300 MG CAPSULE PO SCH ×3 (05:55→21:40)
[2018-05-29] MEDS: LEVOFLOXACIN 750 MG/D5W RTU 750 MG/150 ML RTUPB IV SCH (09:52)
[2018-05-29] MEDS: HYDROXYUREA 500 MG CAPSULE PO SCH ×2 (09:53→17:32)
[2018-05-29] MEDS: FOLIC ACID 1 MG TABLET PO SCH (09:53)
[2018-05-29] MEDS: MULTIVITAMIN TABLET PO SCH (09:54)
[2018-05-29] MEDS: DEXTROSE 5%-1/2 NORMAL SALINE 1,000 ML IV PRN (13:47)
[2018-05-29] MEDS: RIVAROXABAN 10 MG TABLET PO SCH (17:32)
--- NOTE | 2018-05-29 22:09 | PDOC PROGRESS REPORT ---
Subjective Progress Note for:: 05/29/18 Subjective:: She was seen by the bedside, she has pain of both knees Reason For Visit: SICKLE CELL CRISIS ANEMIA Physical Exam Vital Signs: Temp Pulse Resp BP Pulse Ox 99.3 F 87 16 98/58 L 98 05/29/18 20:06 05/29/18 20:06 05/29/18 15:48 05/29/18 20:06 05/29/18 20:06 Intake & Output 05/28/18 05/29/18 05/30/18 06:59 06:59 06:59 Intake Total 2418 1150 2380 Output Total 2250 2550 2300 Balance 168 -1400 80 Weight 63.5 kg 64.5 kg General appearance: PRESENT: no acute distress Eye exam: PRESENT: PERRLA Respiratory exam: PRESENT: clear to auscultation carolyn Cardiovascular exam: PRESENT: +S1, +S2 Neurological exam: PRESENT: alert, CN II-XII grossly intact Results Laboratory Results: 05/24/18 05:50 05/24/18 05:50 Impressions: Hip X-Ray 05/23/18 00:00 IMPRESSION: NEGATIVE STUDY OF THE PELVIS AND HIPS. Sacroiliac Joint X-Ray 05/23/18 00:00 IMPRESSION: NORMAL STUDY OF THE SACROILIAC JOINTS. Shoulder X-Ray 05/23/18 00:00 IMPRESSION: 1. No acute findings involving the right or left shoulder. 2. Fairly extensive bilateral airspace disease new from prior study. Abdomen/Pelvis CT 05/24/18 00:00 IMPRESSION: Marked bladder distention to the level above mellitus. Mild bilateral hydronephrosis. 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: Sickle-cell associated disorders: with unspecified crisis Qualified Code(s) : D57.219 - Sickle-cell/Hb-C disease with crisis, unspecified Is this a current diagnosis for this admission?: Yes (3) Sickle cell anemia Qualifiers: Sickle-cell associated disorders: with unspecified crisis Qualified Code(s) : D57.00 - Hb-SS disease with crisis, unspecified; D57.0 - Hb-SS disease with crisis Is this a current diagnosis for this admission?: Yes (4) Enterococcus UTI Is this a current diagnosis for this admission?: Yes (5) Bilateral hydronephrosis Is this a current diagnosis for this admission?: Yes (6) Retention of urine Is this a current diagnosis for this admission?: Yes
[2018-05-30] MEDS: PROMETHAZINE HCL INJ 25 MG/1 ML VIAL IV PRN ×4 (03:56→21:03)
[2018-05-30] MEDS: HYDROMORPHONE HCL INJ/PF 2 MG/ML AMPULE IV PRN ×5 (03:56→21:03)
[2018-05-30] MEDS: DEXTROSE 5%-1/2 NORMAL SALINE 1,000 ML IV PRN ×2 (03:59→19:14)
[2018-05-30] MEDS: GABAPENTIN 300 MG CAPSULE PO SCH ×3 (05:48→21:04)
[2018-05-30] MEDS: FOLIC ACID 1 MG TABLET PO SCH (09:47)
[2018-05-30] MEDS: MULTIVITAMIN TABLET PO SCH (09:47)
[2018-05-30] MEDS: LEVOFLOXACIN 750 MG/D5W RTU 750 MG/150 ML RTUPB IV SCH (09:47)
[2018-05-30] MEDS: HYDROXYUREA 500 MG CAPSULE PO SCH ×2 (09:47→18:03)
[2018-05-30] MEDS: RIVAROXABAN 10 MG TABLET PO SCH (18:03)
--- NOTE | 2018-05-30 21:00 | PDOC PROGRESS REPORT ---
Subjective Progress Note for:: 05/30/18 Subjective:: Patient seen by the bedside continues to improve Reason For Visit: SICKLE CELL CRISIS ANEMIA Physical Exam Vital Signs: Temp Pulse Resp BP Pulse Ox 98.8 F 85 18 102/62 100 05/30/18 20:03 05/30/18 20:03 05/30/18 20:03 05/30/18 20:03 05/30/18 20:03 Intake & Output 05/29/18 05/30/18 05/31/18 06:59 06:59 06:59 Intake Total 1150 4799 2200 Output Total 2550 3700 2650 Balance -1400 1099 -450 Weight 64.5 kg 65.8 kg General appearance: PRESENT: no acute distress Eye exam: PRESENT: PERRLA Respiratory exam: PRESENT: clear to auscultation carolyn Cardiovascular exam: PRESENT: +S1, +S2 GI/Abdominal exam: PRESENT: soft Neurological exam: PRESENT: alert Results Laboratory Results: 05/24/18 05:50 05/24/18 05:50 Impressions: Hip X-Ray 05/23/18 00:00 IMPRESSION: NEGATIVE STUDY OF THE PELVIS AND HIPS. Sacroiliac Joint X-Ray 05/23/18 00:00 IMPRESSION: NORMAL STUDY OF THE SACROILIAC JOINTS. Shoulder X-Ray 05/23/18 00:00 IMPRESSION: 1. No acute findings involving the right or left shoulder. 2. Fairly extensive bilateral airspace disease new from prior study. Abdomen/Pelvis CT 05/24/18 00:00 IMPRESSION: Marked bladder distention to the level above mellitus. Mild bilateral hydronephrosis. 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: Sickle-cell associated disorders: with unspecified crisis Qualified Code(s) : D57.219 - Sickle-cell/Hb-C disease with crisis, unspecified Is this a current diagnosis for this admission?: Yes (3) Sickle cell anemia Qualifiers: Sickle-cell associated disorders: with unspecified crisis Qualified Code(s) : D57.00 - Hb-SS disease with crisis, unspecified; D57.0 - Hb-SS disease with crisis Is this a current diagnosis for this admission?: Yes (4) Enterococcus UTI Is this a current diagnosis for this admission?: Yes (5) Bilateral hydronephrosis Is this a current diagnosis for this admission?: Yes (6) Retention of urine Is this a current diagnosis for this admission?: Yes
[2018-05-30 22:16] LABS: HEMATOCRIT 29.2 % (36.0-47.0); HEMOGLOBIN 10.2 g/dL (12.0-15.5); MEAN CORPUSCULAR HEMOGLOBIN 37.4 pg (27.0-33.4); MEAN CORPUSCULAR HGB CONC 34.9 g/dL (32.0-36.0); PLATELET COUNT 274 10^3/uL (150-450); RED BLOOD COUNT 2.72 10^6/uL (3.72-5.28); RED CELL DISTRIBUTION WIDTH 31.5 % (11.5-14.0); WHITE BLOOD COUNT 6.6 10^3/uL (4.0-10.5)
[2018-05-30 22:19] LABS: MEAN CORPUSCULAR VOLUME 107 fl (80-97)
[2018-05-30 22:28] LABS: ALANINE AMINOTRANSFERASE 122 U/L (9-52); ALBUMIN 4.2 g/dL (3.5-5.0); ALKALINE PHOSPHATASE 222 U/L (38-126); ANION GAP 9 (5-19); ASPARTATE AMINO TRANSFERASE 111 U/L (14-36); BILIRUBIN,DIRECT 0.7 mg/dL (0.0-0.4); BILIRUBIN,TOTAL 3.5 mg/dL (0.2-1.3); BLOOD UREA NITROGEN 12 mg/dL (7-20); CALCIUM 9.5 mg/dL (8.4-10.2); CARBON DIOXIDE 26 mmol/L (22-30); CHLORIDE 104 mmol/L (98-107); GLUCOSE 119 mg/dL (75-110); POTASSIUM 4.1 mmol/L (3.6-5.0); SODIUM 139.4 mmol/L (137-145); TOTAL PROTEIN 7.1 g/dL (6.3-8.2)
[2018-05-30 22:35] LABS: ABSOLUTE MONOCYTES # (MANUAL) 0.8 10^3/uL (0.1-1.4); ABSOLUTE NEUTROPHILS# (MANUAL) 3.4 10^3/uL (1.7-8.2); BASOPHILS % (MANUAL) 0 % (0-2); EOSINOPHILS % (MANUAL) 5 % (0-6); LYMPHOCYTES % (MANUAL) 31 % (13-45); MONOCYTES % (MANUAL) 12 % (3-13); NUCLEATED RED BLOOD CELLS 14 /100 WBC (0); SEGMENTED NEUTROPHILS % (MAN) 52 % (42-78); TOTAL CELLS COUNTED 100
[2018-05-30 22:38] LABS: TOXIC GRANULATION SLIGHT
[2018-05-30 22:39] LABS: ANISOCYTOSIS 4+; PLATELET COMMENT ADEQUATE; POIKILOCYTOSIS 2+; SICKLE RED CELLS SLIGHT; TARGET CELLS SLIGHT
[2018-05-31] MEDS: HYDROMORPHONE HCL INJ/PF 2 MG/ML AMPULE IV PRN ×6 (01:07→21:14)
[2018-05-31] MEDS: PROMETHAZINE HCL INJ 25 MG/1 ML VIAL IV PRN ×6 (01:07→21:14)
[2018-05-31] MEDS: GABAPENTIN 300 MG CAPSULE PO SCH ×3 (05:07→21:14)
[2018-05-31 06:11] LABS: HEMATOCRIT 27.3 % (36.0-47.0); HEMOGLOBIN 9.6 g/dL (12.0-15.5); MEAN CORPUSCULAR HEMOGLOBIN 37.5 pg (27.0-33.4); MEAN CORPUSCULAR HGB CONC 35.1 g/dL (32.0-36.0); MEAN CORPUSCULAR VOLUME 107 fl (80-97); PLATELET COUNT 242 10^3/uL (150-450); RED BLOOD COUNT 2.55 10^6/uL (3.72-5.28); RED CELL DISTRIBUTION WIDTH 31.2 % (11.5-14.0); WHITE BLOOD COUNT 6.2 10^3/uL (4.0-10.5)
[2018-05-31 06:28] LABS: ALANINE AMINOTRANSFERASE 107 U/L (9-52); ALBUMIN 3.8 g/dL (3.5-5.0); ALKALINE PHOSPHATASE 199 U/L (38-126); ANION GAP 8 (5-19); ASPARTATE AMINO TRANSFERASE 100 U/L (14-36); BILIRUBIN,DIRECT 1.2 mg/dL (0.0-0.4); BILIRUBIN,TOTAL 4.4 mg/dL (0.2-1.3); BLOOD UREA NITROGEN 13 mg/dL (7-20); CALCIUM 9.3 mg/dL (8.4-10.2); CARBON DIOXIDE 25 mmol/L (22-30); CHLORIDE 107 mmol/L (98-107); GLUCOSE 96 mg/dL (75-110); POTASSIUM 4.2 mmol/L (3.6-5.0); SODIUM 140.4 mmol/L (137-145); TOTAL PROTEIN 6.6 g/dL (6.3-8.2)
[2018-05-31 06:49] LABS: ABSOLUTE LYMPHOCYTES# (MANUAL) 2.3 10^3/uL (0.5-4.7); ABSOLUTE MONOCYTES # (MANUAL) 0.4 10^3/uL (0.1-1.4); ABSOLUTE NEUTROPHILS# (MANUAL) 3.3 10^3/uL (1.7-8.2); BASOPHILS % (MANUAL) 0 % (0-2); EOSINOPHILS % (MANUAL) 4 % (0-6); LYMPHOCYTES % (MANUAL) 37 % (13-45); MONOCYTES % (MANUAL) 6 % (3-13); NUCLEATED RED BLOOD CELLS 18 /100 WBC (0); SEGMENTED NEUTROPHILS % (MAN) 53 % (42-78); TOTAL CELLS COUNTED 100
[2018-05-31 06:50] LABS: OVALOCYTES SLIGHT; TARGET CELLS SLIGHT; TEAR DROP CELLS SLIGHT
[2018-05-31 06:51] LABS: ANISOCYTOSIS 4+; HOWELL-JOLLY BODIES PRESENT; PLATELET COMMENT ADEQUATE; POIKILOCYTOSIS SLIGHT; POLYCHROMASIA 1+
[2018-05-31] MEDS: DEXTROSE 5%-1/2 NORMAL SALINE 1,000 ML IV PRN ×2 (09:05→22:51)
[2018-05-31] MEDS: HYDROXYUREA 500 MG CAPSULE PO SCH ×2 (09:06→17:07)
[2018-05-31] MEDS: FOLIC ACID 1 MG TABLET PO SCH (09:06)
[2018-05-31] MEDS: MULTIVITAMIN TABLET PO SCH (09:06)
[2018-05-31] MEDS: RIVAROXABAN 10 MG TABLET PO SCH (17:04)
--- NOTE | 2018-05-31 20:35 | PDOC PROGRESS REPORT ---
Subjective Progress Note for:: 05/31/18 Subjective:: Patient seen by the bedside, DC Harris catheter, ambulate patient, hopefully discharge home soon Reason For Visit: SICKLE CELL CRISIS ANEMIA Physical Exam Vital Signs: Temp Pulse Resp BP Pulse Ox 98.9 F 93 14 101/74 97 05/31/18 20:00 05/31/18 20:00 05/31/18 20:00 05/31/18 20:00 05/31/18 20:00 Intake & Output 05/30/18 05/31/18 06/01/18 06:59 06:59 06:59 Intake Total 4799 2200 1570 Output Total 3700 4000 700 Balance 1099 -1800 870 Weight 65.8 kg 65.8 kg General appearance: PRESENT: no acute distress Eye exam: PRESENT: PERRLA Respiratory exam: PRESENT: clear to auscultation carolyn Cardiovascular exam: PRESENT: +S1, +S2 GI/Abdominal exam: PRESENT: soft Neurological exam: PRESENT: alert Results Laboratory Results: 05/31/18 05:55 05/31/18 05:55 05/30/18 05/30/18 05/31/18 21:55 21:55 05:55 WBC 6.6 6.2 RBC 2.72 L 2.55 L Hgb 10.2 L 9.6 L Hct 29.2 L 27.3 L MCV 107 H D 107 H MCH 37.4 H 37.5 H MCHC 34.9 35.1 RDW 31.5 H 31.2 H Plt Count 274 242 Seg Neutrophils % Not Reportable Not Reportable Lymphocytes % Not Reportable Not Reportable Monocytes % Not Reportable Not Reportable Eosinophils % Not Reportable Not Reportable Basophils % Not Reportable Not Reportable Absolute Neutrophils Not Reportable Not Reportable Absolute Lymphocytes Not Reportable Not Reportable Absolute Monocytes Not Reportable Not Reportable Absolute Eosinophils Not Reportable Not Reportable Absolute Basophils Not Reportable Not Reportable Sodium 139.4 Potassium 4.1 Chloride 104 Carbon Dioxide 26 Anion Gap 9 BUN 12 Creatinine 0.54 Est GFR ( Amer) > 60 Est GFR (Non-Af Amer) > 60 Glucose 119 H Calcium 9.5 Total Bilirubin 3.5 H AST 111 H ALT 122 H Alkaline Phosphatase 222 H Total Protein 7.1 Albumin 4.2 05/31/18 05:55 WBC RBC Hgb Hct MCV MCH MCHC RDW Plt Count Seg Neutrophils % Lymphocytes % Monocytes % Eosinophils % Basophils % Absolute Neutrophils Absolute Lymphocytes Absolute Monocytes Absolute Eosinophils Absolute Basophils Sodium 140.4 Potassium 4.2 Chloride 107 Carbon Dioxide 25 Anion Gap 8 BUN 13 Creatinine 0.55 Est GFR ( Amer) > 60 Est GFR (Non-Af Amer) > 60 Glucose 96 Calcium 9.3 Total Bilirubin 4.4 H AST 100 H ALT 107 H Alkaline Phosphatase 199 H Total Protein 6.6 Albumin 3.8 Impressions: Hip X-Ray 05/23/18 00:00 IMPRESSION: NEGATIVE STUDY OF THE PELVIS AND HIPS. Sacroiliac Joint X-Ray 05/23/18 00:00 IMPRESSION: NORMAL STUDY OF THE SACROILIAC JOINTS. Shoulder X-Ray 05/23/18 00:00 IMPRESSION: 1. No acute findings involving the right or left shoulder. 2. Fairly extensive bilateral airspace disease new from prior study. Abdomen/Pelvis CT 05/24/18 00:00 IMPRESSION: Marked bladder distention to the level above mellitus. Mild bilateral hydronephrosis. 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: Sickle-cell associated disorders: with unspecified crisis Qualified Code(s) : D57.219 - Sickle-cell/Hb-C disease with crisis, unspecified Is this a current diagnosis for this admission?: Yes (3) Sickle cell anemia Qualifiers: Sickle-cell associated disorders: with unspecified crisis Qualified Code(s) : D57.00 - Hb-SS disease with crisis, unspecified; D57.0 - Hb-SS disease with crisis Is this a current diagnosis for this admission?: Yes (4) Enterococcus UTI Is this a current diagnosis for this admission?: Yes (5) Bilateral hydronephrosis Is this a current diagnosis for this admission?: Yes (6) Retention of urine Is this a current diagnosis for this admission?: Yes
[2018-06-01] MEDS: HYDROMORPHONE HCL INJ/PF 2 MG/ML AMPULE IV PRN ×6 (01:16→22:01)
[2018-06-01] MEDS: PROMETHAZINE HCL INJ 25 MG/1 ML VIAL IV PRN ×6 (01:16→22:03)
[2018-06-01] MEDS: GABAPENTIN 300 MG CAPSULE PO SCH ×3 (05:27→22:03)
[2018-06-01] MEDS: MULTIVITAMIN TABLET PO SCH (09:41)
[2018-06-01] MEDS: FOLIC ACID 1 MG TABLET PO SCH (09:41)
[2018-06-01] MEDS: HYDROXYUREA 500 MG CAPSULE PO SCH ×2 (09:41→17:43)
[2018-06-01] MEDS: EPOETIN ALFA INJ 40000 UNIT/1 ML (RENAL) SUBCUT SCH (12:59)
[2018-06-01] MEDS: EPOETIN ALFA INJ 20000 UNIT/1 ML VIAL (RENAL) SUBCUT SCH (13:00)
[2018-06-01] MEDS: DEXTROSE 5%-1/2 NORMAL SALINE 1,000 ML IV PRN (13:06)
[2018-06-01] MEDS: RIVAROXABAN 10 MG TABLET PO SCH (17:43)
--- NOTE | 2018-06-01 21:11 | RADIOLOGY REPORT (SQ) ---
EXAM DESCRIPTION: CT ABD/PELVIS NO ORAL OR IV COMPLETED DATE/TIME: 06/01/2018 8:50 pm REASON FOR STUDY: FLANK PAIN R/O KIDNEY STONE COMPARISON: CT abdomen pelvis 05/24/2018 Abdominal ultrasound 02/22/2018 CT abdomen pelvis 07/31/2014, 02/22/2011 TECHNIQUE: CT scan of the abdomen and pelvis performed without intravenous or oral contrast. Images reviewed with lung, soft tissue, and bone windows. Reconstructed coronal and sagittal MPR images revi ewed. All images stored on PACS. All CT scanners at this facility use dose modulation, iterative reconstruction, and/or weight based d osing when appropriate to reduce radiation dose to as low as reasonably achievable (ALARA). [facility]: Dose Right [facility]: CareDose [facility]: Dose Right [facility]: Teradose 4D [facility]: Smart Aviate RADIATION DOSE: CT Rad equipment meets quality standard of care and radiation dose reduction techniq ues were employed. CTDIvol: 6.8 mGy. DLP: 305 mGy-cm.mGy. LIMITATIONS: None. FINDINGS: LOWER CHEST: No significant findings. No nodules or infiltrates. NON-CONTRASTED LIVER, SPLEEN, ADRENALS: No gross liver masses. Prominent portal veins and hepatic ve ins, without gross biliary ductal dilatation. Spleen surgically absent. Normal size adrenal glands PANCREAS: No masses. No peripancreatic inflammatory changes. GALLBLADDER: Surgically absent RIGHT KIDNEY AND URETER: 10 mm hyperdense lesion in the right lower pole kidney likely a hemorrhagic cyst best shown on coronal image 52. Correlation with renal ultrasound recommended for followup. N o significant calcifications. No hydronephrosis or hydroureter. LEFT KIDNEY AND URETER: No suspicious masses. Assessment limited by lack of IV contrast. No signifi cant calcifications. No hydronephrosis or hydroureter. AORTA AND RETROPERITONEUM: No aneurysm. No retroperitoneal masses or adenopathy. BOWEL AND PERITONEAL CAVITY: No obvious masses or inflammatory changes. No free fluid. APPENDIX: Surgically absent PELVIS, BLADDER, AND ABDOMINAL WALL:No abnormal masses. No free fluid. Bladder markedly distended. N ormal size female pelvic organs BONES: Biconcave vertebral bodies could be seen in sickle cell or thalassemia. OTHER: No other significant finding. IMPRESSION: Prominent portal veins and hepatic veins. No gross biliary ductal dilatation. Urinary bladder distention COMMENT: Quality ID # [id number]: Final reports with documentation of one or more dose reduction techniques (e.g., Automated exposure control, adjustment of the mA and/or kV according to patient size, use of iterative reconstruction technique) TECHNICAL DOCUMENTATION: JOB ID: [id number] [employer]- All Rights Reserved Reading location - IP/workstation name: [email or web address]
--- NOTE | 2018-06-01 22:29 | PDOC PROGRESS REPORT ---
Subjective Progress Note for:: 06/01/18 Subjective:: She has right flank pain CT scan of the abdomen showed the hemorrhagic cyst in the inferior pole of the right kidney, bladder distended Reason For Visit: SICKLE CELL CRISIS ANEMIA Physical Exam Vital Signs: Temp Pulse Resp BP Pulse Ox 99.2 F 85 18 98/57 L 97 06/01/18 20:21 06/01/18 20:21 06/01/18 20:21 06/01/18 20:21 06/01/18 20:21 Intake & Output 05/31/18 06/01/18 06/02/18 06:59 06:59 06:59 Intake Total 2200 2534 997 Output Total 4000 700 Balance -1800 1834 997 Weight 65.8 kg 64.5 kg General appearance: PRESENT: no acute distress Eye exam: PRESENT: PERRLA Respiratory exam: PRESENT: clear to auscultation carolyn Cardiovascular exam: PRESENT: +S1, +S2 Neurological exam: PRESENT: alert Results Laboratory Results: 05/31/18 05:55 05/31/18 05:55 Impressions: Hip X-Ray 05/23/18 00:00 IMPRESSION: NEGATIVE STUDY OF THE PELVIS AND HIPS. Sacroiliac Joint X-Ray 05/23/18 00:00 IMPRESSION: NORMAL STUDY OF THE SACROILIAC JOINTS. Shoulder X-Ray 05/23/18 00:00 IMPRESSION: 1. No acute findings involving the right or left shoulder. 2. Fairly extensive bilateral airspace disease new from prior study. Abdomen/Pelvis CT 06/01/18 00:00 IMPRESSION: Prominent portal veins and hepatic veins. No gross biliary ductal dilatation. Urinary bladder distention 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: Sickle-cell associated disorders: with unspecified crisis Qualified Code(s) : D57.219 - Sickle-cell/Hb-C disease with crisis, unspecified Is this a current diagnosis for this admission?: Yes (3) Sickle cell anemia Qualifiers: Sickle-cell associated disorders: with unspecified crisis Qualified Code(s) : D57.00 - Hb-SS disease with crisis, unspecified; D57.0 - Hb-SS disease with crisis Is this a current diagnosis for this admission?: Yes (4) Enterococcus UTI Is this a current diagnosis for this admission?: Yes (5) Bilateral hydronephrosis Is this a current diagnosis for this admission?: Yes (6) Retention of urine Is this a current diagnosis for this admission?: Yes (7) Hemorrhage of cyst of [place] kidney Is this a current diagnosis for this admission?: Yes
[2018-06-02] MEDS: HYDROMORPHONE HCL INJ/PF 2 MG/ML AMPULE IV PRN ×6 (01:59→22:47)
[2018-06-02] MEDS: PROMETHAZINE HCL INJ 25 MG/1 ML VIAL IV PRN ×6 (02:00→22:47)
[2018-06-02] MEDS: DEXTROSE 5%-1/2 NORMAL SALINE 1,000 ML IV PRN ×2 (06:04→19:05)
[2018-06-02] MEDS: GABAPENTIN 300 MG CAPSULE PO SCH ×3 (06:04→22:47)
[2018-06-02] MEDS: FOLIC ACID 1 MG TABLET PO SCH (10:06)
[2018-06-02] MEDS: MULTIVITAMIN TABLET PO SCH (10:06)
[2018-06-02] MEDS: HYDROXYUREA 500 MG CAPSULE PO SCH ×2 (10:22→18:49)
[2018-06-02] MEDS: RIVAROXABAN 10 MG TABLET PO SCH (18:49)
--- NOTE | 2018-06-02 20:24 | PDOC DISCHARGE SUMMARY ---
General - Admit/Disc Date/PCP Admission Date/Primary Care Provider: 05/18/18 06:26 HOMA BARRAZA MD Discharge Date: 06/02/18 - Discharge Diagnosis (1) Enterococcus UTI Is this a current diagnosis for this admission?: Yes (2) Persistent vomiting Is this a current diagnosis for this admission?: Yes (3) Sickle cell hemoglobin C disease Is this a current diagnosis for this admission?: Yes (4) Sickle cell anemia Is this a current diagnosis for this admission?: Yes (5) Bilateral hydronephrosis Is this a current diagnosis for this admission?: Yes (6) Retention of urine Is this a current diagnosis for this admission?: Yes (7) Hemorrhage of cyst of [place] kidney Is this a current diagnosis for this admission?: Yes (8) Pneumonia Is this a current diagnosis for this admission?: Yes (9) Pneumonia Is this a current diagnosis for this admission?: Yes - Additional Information Resuscitation Status: Full Code Home Medications: Epoetin Federico [Procrit] 20,000 unit SUBCUT FR@1000 04/11/18 Epoetin Federico [Procrit] 40,000 unit SUBCUT FR@1000 04/11/18 Folic Acid [Folvite 1 mg Tablet] 1 mg PO DAILY 04/11/18 Gabapentin [Neurontin 300 mg Capsule] 300 mg PO Q8 04/11/18 Hydroxyurea [Hydrea 500 mg Capsule] 500 mg PO TID 04/11/18 Multivitamin [Tab-A-Yosvany (Multiple Vitamin) Tablet] 1 tab PO DAILY 04/11/18 Promethazine HCl [Phenergan 25 mg Tablet] 25 mg PO Q6HP PRN 04/11/18 Rivaroxaban [Xarelto] 20 mg PO QPM 04/11/18 Oxycodone HCl [Roxicodone] 30 mg PO Q6HP PRN #20 tablet 04/27/18 Oxycodone HCl [Oxycontin] 40 mg PO Q8HP PRN 05/17/18 History of Present Illness History of Present Illness: WILLIE ALAN is a 48 year old female,She came to the emergency room twice for evaluation of vomiting, she said she has stomach flu virus, she is not able to keep any food down, she has sickle cell disease,. At the second emergency room visit she was not willing to go home because of the persistent vomiting. She has a history of sickle cell disease recently admitted to the hospital for sickle cell crisis including hemolytic crisis, vaso-occlusive crisis with bone pain Hospital Course Hospital Course: She was admitted for the management of sickle cell crisis including vaso- occlusive crisis, urinary tract infection, urine culture grew Enterococcus faecalis. She also had pneumonia, she was treated with IV antibiotic.Hospital course was complicated with retention of urine The etiology of the retention of urine was not clear ,this was treated with Harris catheterization,Pain control was achieved with intravenous Dilaudid. She also require blood transfusion Physical Exam Vital Signs: Temp Pulse Resp BP Pulse Ox 99.3 F 91 16 104/65 96 06/02/18 15:15 06/02/18 15:15 06/02/18 15:15 06/02/18 15:15 06/02/18 15:15 Intake & Output 06/01/18 06/02/18 06/03/18 06:59 06:59 06:59 Intake Total 2534 1997 911 Output Total 700 1700 Balance 1834 297 911 Weight 64.5 kg 64.56 kg General appearance: PRESENT: no acute distress Eye exam: PRESENT: PERRLA Respiratory exam: PRESENT: clear to auscultation carolyn Cardiovascular exam: PRESENT: +S1, +S2 GI/Abdominal exam: PRESENT: soft Neurological exam: PRESENT: alert Results Laboratory Results: 05/31/18 05:55 05/31/18 05:55 Impressions: Hip X-Ray 05/23/18 00:00 IMPRESSION: NEGATIVE STUDY OF THE PELVIS AND HIPS. Sacroiliac Joint X-Ray 05/23/18 00:00 IMPRESSION: NORMAL STUDY OF THE SACROILIAC JOINTS. Shoulder X-Ray 05/23/18 00:00 IMPRESSION: 1. No acute findings involving the right or left shoulder. 2. Fairly extensive bilateral airspace disease new from prior study. Abdomen/Pelvis CT 06/01/18 00:00 IMPRESSION: Prominent portal veins and hepatic veins. No gross biliary ductal dilatation. Urinary bladder distention Qualifiers - * PATIENT BEING DISCHARGED WITH ANY OF THE FOLLOWING DIAGNOSIS: No
[2018-06-03] MEDS: OXYCODONE HCL IR 5 MG TABLET PO PRN ×2 (01:00→13:55)
[2018-06-03] MEDS: PROMETHAZINE HCL INJ 25 MG/1 ML VIAL IV PRN ×3 (03:06→10:47)
[2018-06-03] MEDS: HYDROMORPHONE HCL INJ/PF 2 MG/ML AMPULE IV PRN ×3 (03:07→10:46)
[2018-06-03] MEDS: GABAPENTIN 300 MG CAPSULE PO SCH ×2 (06:57→13:55)
[2018-06-03] MEDS: MULTIVITAMIN TABLET PO SCH (09:51)
[2018-06-03] MEDS: FOLIC ACID 1 MG TABLET PO SCH (09:51)
[2018-06-03] MEDS: HYDROXYUREA 500 MG CAPSULE PO SCH (09:54)
[2018-06-03 12:34] VITALS: BP 115/68
== END 2018-06-03 14:22 | disposition home or self-care (01) | DRG 811 ==
LOC: ER 20:21 → INTOOBSV 05-17 04:26 → EH 05-17 04:26 → 2N 05-17 07:30 → OBSVTOIN 05-18 06:26
PROVIDERS: ADMIT Internal Medicine; ATTEND Internal Medicine
PROC: 30233N1 Transfusion of Nonautologous Red Blood Cells into Peripheral Vein, Percutaneous Approach (ICD-10-PCS; principal; 2018-05-18)
DX: D57.219 Sickle-cell/Hb-C disease with crisis, unspecified (principal); J18.9 Pneumonia, unspecified organism; N39.0 Urinary tract infection, site not specified; N13.30 Unspecified hydronephrosis; D57.00 Hb-SS disease with crisis, unspecified; B95.2 Enterococcus as the cause of diseases classified elsewhere; R33.9 Retention of urine, unspecified; N28.1 Cyst of kidney, acquired; N28.89 Other specified disorders of kidney and ureter; M89.8X9 Other specified disorders of bone, unspecified site; F41.8 Other specified anxiety disorders; Z79.01 Long term (current) use of anticoagulants; Z79.891 Long term (current) use of opiate analgesic; Z79.899 Other long term (current) drug therapy; Z86.14 Personal history of Methicillin resistant Staphylococcus aureus infection
CPT/HCPCS: 36415; 36430; 36591; 36600; 71045; 71046; 72202; 73522; 74176; 74177; 80053; 80307; 81001; 82607; 82728; 82746; 82803; 83540; 83550; 83690; 83735; 84703; 85025; 85045; 86850; 86900; 86901; 86902; 86920; 87086; 87088; 87186; 96374; 96375; 96376; 99285; G0378; J0290; J1170; J1650; J1956; J2405; J2550; J3480; J7050; P9016; Q4081

== ENCOUNTER 2018-07-06 11:48 | Emergency (ER) | payer MEDICAID ==
[2018-07-06] MEDS ORDERED: RINGERS SOLUTION,LACTATED 1,000 ML IV ONE (12:53)
[2018-07-06] MEDS ORDERED: HYDROMORPHONE HCL INJ/PF 2 MG/ML AMPULE IV ONE ×2 (12:53→16:41)
[2018-07-06] MEDS ORDERED: ONDANSETRON HCL INJ/PF 4 MG/2 ML SDV IV ONE (12:53)
--- NOTE | 2018-07-06 12:55 | ER Document Report ---
ED Medical Screen (RME) - General Chief Complaint: Pain All Over Stated Complaint: POSSIBLE SICKLE CELL CRISIS Time Seen by Provider: 07/06/18 12:45 Mode of Arrival: Ambulatory Information source: Patient Notes: This is a 48-year-old female with a history of sickle cell disease, VTE (Xarelto) who presents to the emergency room with cough, congestion, nausea and vomiting and abdominal cramping, muscle aches and pains. Patient states she felt like she started to get an upper respiratory infection a few days ago and then started getting the nausea, back pain symptoms consistent with previous sickle cell crisis. TRAVEL OUTSIDE OF THE [place] IN LAST 30 DAYS: No - Related Data Allergies/Adverse Reactions: doxycycline [Doxycycline] Allergy (Severe, Verified 07/06/18 11:54) Past Medical History - Social History Chew tobacco use (# tins/day): No Frequency of alcohol use: None Drug Abuse: None - Past Medical History Cardiac Medical History: Reports: Hx Heart Murmur Denies: Hx Atrial Fibrillation, Hx Congestive Heart Failure, Hx Coronary Artery Disease, Hx Heart Attack, Hx Hypercholesterolemia, Hx Hypertension, Hx Peripheral Vascular Disease Pulmonary Medical History: Denies: Hx Tuberculosis Neurological Medical History: Denies: Hx Seizures Renal/ Medical History: Reports: Hx Ovarian Cysts. Denies: Hx Peritoneal Dialysis Malignancy Medical History: Denies: Hx Leukemia Musculoskeltal Medical History: Denies Hx Arthritis, Denies Hx Fibromyalgia, Denies Hx Muscular Dystrophy Skin Medical History: Reports Hx MRSA Psychiatric Medical History: Reports: Hx Anxiety, Hx Depression Traumatic Medical History: Denies: Hx Fractures Infectious Medical History: Reports: Hx MRSA - History of MRSA osteomyelitis. Denies: Hx HIV Past Surgical History: Reports: Hx Appendectomy, Hx Section, Hx Cholecystectomy, Hx Orthopedic Surgery - R knee, Hx Tonsillectomy. Denies: Hx Bowel Surgery, Hx Coronary Artery Bypass Graft, Hx Gastric Bypass Surgery, Hx Herniorrhaphy, Hx Mastectomy, Hx Pacemaker, Hx Tubal Ligation - Immunizations Immunizations up to date: Yes Hx Diphtheria, Pertussis, Tetanus Vaccination: Yes History of Influenza Vaccine for 03/2017 - 08/2017 Season: No Physical Exam - Vital signs Vitals: Temp Pulse Resp BP Pulse Ox 99.2 F 78 15 106/64 98 07/06/18 12:16 07/06/18 12:16 07/06/18 12:16 07/06/18 12:16 07/06/18 12:16 Course - Vital Signs Vital signs: Temp Pulse Resp BP Pulse Ox 99.2 F 78 15 106/64 98 07/06/18 12:16 07/06/18 12:16 07/06/18 12:16 07/06/18 12:16 07/06/18 12:16 Doctor's Discharge - Discharge Referrals: HOMA BARRAZA MD [Primary Care Provider] - Follow up as needed
--- NOTE | 2018-07-06 13:24 | RADIOLOGY REPORT (SQ) ---
EXAM DESCRIPTION: CHEST 2 VIEWS COMPLETED DATE/TIME: 07/06/2018 1:14 pm REASON FOR STUDY: cough COMPARISON: 05/23/2018. EXAM PARAMETERS: NUMBER OF VIEWS: two views TECHNIQUE: Digital Frontal and Lateral radiographic views of the chest acquired. RADIATION DOSE: NA LIMITATIONS: none FINDINGS: LUNGS AND PLEURA: Chronic interstitial changes. No opacities, masses or pneumothorax. No pleural effusion. MEDIASTINUM AND HILAR STRUCTURES: No masses or contour abnormalities. HEART AND VASCULAR STRUCTURES: Heart normal size. No evidence for failure. BONES: No acute findings. HARDWARE: Vascular port. OTHER: No other significant finding. IMPRESSION: CHRONIC INTERSTITIAL CHANGES. NO ACUTE RADIOGRAPHIC FINDING IN THE CHEST. TECHNICAL DOCUMENTATION: JOB ID: [id number] [employer]- All Rights Reserved Reading location - IP/workstation name: [email or web address]
[2018-07-06 14:02] LABS: A TYPE INFLUENZA AG NEGATIVE (NEGATIVE); B INFLUENZA AG NEGATIVE (NEGATIVE)
--- NOTE | 2018-07-06 15:05 | ER Document Report ---
ED General - General Chief Complaint: Pain All Over Stated Complaint: POSSIBLE SICKLE CELL CRISIS Time Seen by Provider: 07/06/18 12:45 Mode of Arrival: Ambulatory Information source: Patient, [facility] Records Notes: This is a 48-year-old female with a history of sickle cell disease, VTE (Xarelto) who presents to the emergency room with cough, congestion, nausea and vomiting and abdominal cramping, muscle aches and pains. Patient states she felt like she started to get an upper respiratory infection a few days ago and then started getting the nausea, back pain symptoms consistent with previous sickle cell crisis. Patient abdominal pain is generalized, described as cramping and has been associated with vomiting and diarrhea. Patient states that she has been unable to keep anything down over the last 48 hours. She also reports multiple episodes of diarrhea. Patient also experiencing some aching chest pain that is associated with coughing. She describes a fever at home, chills, sweats. Patient had a hospitalization in April 2018 for pneumonia. Her primary care physician is Dr. Barraza and her oncologist is Dr. Parker. TRAVEL OUTSIDE OF THE [place] IN LAST 30 DAYS: No - HPI Onset: Other Onset/Duration: Persistent, Worse Quality of pain: Achy, Cramping, Throbbing Severity: Moderate Associated symptoms: Chest pain, Productive cough, Diarrhea, Fever, Nausea, Vomiting. denies: Shortness of breath Exacerbated by: Coughing Relieved by: Denies Similar symptoms previously: Yes Recently seen / treated by doctor: Yes - Related Data Allergies/Adverse Reactions: doxycycline [Doxycycline] Allergy (Severe, Verified 07/06/18 11:54) Past Medical History - General Information source: Patient - Social History Smoking Status: Never Smoker Chew tobacco use (# tins/day): No Frequency of alcohol use: None Drug Abuse: None Lives with: Family Family History: Reviewed & Not Pertinent Patient has suicidal ideation: No Patient has homicidal ideation: No - Past Medical History Cardiac Medical History: Reports: Hx Heart Murmur Denies: Hx Atrial Fibrillation, Hx Congestive Heart Failure, Hx Coronary Artery Disease, Hx Heart Attack, Hx Hypercholesterolemia, Hx Hypertension, Hx Peripheral Vascular Disease Pulmonary Medical History: Denies: Hx Tuberculosis Neurological Medical History: Denies: Hx Seizures Renal/ Medical History: Reports: Hx Ovarian Cysts. Denies: Hx Peritoneal Dialysis Malignancy Medical History: Denies: Hx Leukemia Musculoskeletal Medical History: Denies Hx Arthritis, Denies Hx Fibromyalgia, Denies Hx Muscular Dystrophy Skin Medical History: Reports Hx MRSA Psychiatric Medical History: Reports: Hx Anxiety, Hx Depression Traumatic Medical History: Denies: Hx Fractures Infectious Medical History: Reports: Hx MRSA - History of MRSA osteomyelitis. Denies: Hx HIV Past Surgical History: Reports: Hx Appendectomy, Hx Section, Hx Cholecystectomy, Hx Orthopedic Surgery - R knee, Hx Tonsillectomy. Denies: Hx Bowel Surgery, Hx Coronary Artery Bypass Graft, Hx Gastric Bypass Surgery, Hx Herniorrhaphy, Hx Mastectomy, Hx Pacemaker, Hx Tubal Ligation - Immunizations Immunizations up to date: Yes Hx Diphtheria, Pertussis, Tetanus Vaccination: Yes Hx Pneumococcal Vaccination: 03/20/14 Review of Systems - Review of Systems Constitutional: Fever, Malaise. denies: Weight loss EENT: Nose congestion, Throat pain. denies: Blurred vision Cardiovascular: Chest pain. denies: Dizziness, Lightheaded Respiratory: Cough. denies: Short of breath Gastrointestinal: Abdominal pain, Diarrhea, Nausea, Vomiting Genitourinary: denies: Dysuria Musculoskeletal: Back pain, Muscle pain, Muscle stiffness Skin: denies: Rash Hematologic/Lymphatic: No symptoms reported Neurological/Psychological: denies: Lost consciousness, Headaches -: Yes All other systems reviewed and negative Physical Exam - Vital signs Vitals: Temp Pulse Resp BP Pulse Ox 99.2 F 78 15 106/64 98 07/06/18 12:16 07/06/18 12:16 07/06/18 12:16 07/06/18 12:16 07/06/18 12:16 Interpretation: Normal - Notes Notes: PHYSICAL EXAMINATION: GENERAL: Well-appearing, well-nourished and in no acute distress. HEAD: Atraumatic, normocephalic. EYES: Pupils equal round and reactive to light, extraocular movements intact, conjunctiva are normal. ENT: Nares patent, oropharynx clear without exudates. Moist mucous membranes. NECK: Normal range of motion, supple without lymphadenopathy LUNGS: Breath sounds clear to auscultation bilaterally and equal. No wheezes rales or rhonchi. HEART: Regular rate and rhythm without murmurs ABDOMEN: Soft, nontender, nondistended abdomen. No guarding, no rebound. No masses appreciated. Female : deferred Musculoskeletal: Normal range of motion, no pitting or edema. No cyanosis. NEUROLOGICAL: Cranial nerves grossly intact. Normal speech, normal gait. Normal sensory, motor exams PSYCH: Normal mood, normal affect. SKIN: Warm, Dry, normal turgor, no rashes or lesions noted. Course - Re-evaluation Re-evalutation: Laboratory 07/06/18 07/06/18 07/06/18 13:20 15:06 15:06 WBC 5.4 RBC 2.31 L Hgb 8.9 L Hct 25.3 L MCV 110 H MCH 38.7 H MCHC 35.3 RDW 31.0 H Plt Count 269 Total Counted 100 Seg Neutrophils % Not Reportable Seg Neuts % (Manual) 71 Lymphocytes % Not Reportable Lymphocytes % (Manual) 22 Monocytes % Not Reportable Monocytes % (Manual) 6 Eosinophils % Not Reportable Eosinophils % (Manual) 0 Basophils % Not Reportable Basophils % (Manual) 1 Absolute Neutrophils Not Reportable Abs Neuts (Manual) 3.8 Absolute Lymphocytes Not Reportable Abs Lymphs (Manual) 1.2 Absolute Monocytes Not Reportable Abs Monocytes (Manual) 0.3 Absolute Eosinophils Not Reportable Absolute Eos (Manual) 0.0 Absolute Basophils Not Reportable Abs Basophils (Manual) 0.1 Nucleated RBCs 13 Platelet Comment ADEQUATE Polychromasia 1+ Hypochromasia 2+ Poikilocytosis 2+ Basophilic Stippling PRESENT Anisocytosis 3+ Macrocytosis 3+ Pappenheimer Bodies PRESENT Sickle Cells 1+ Target Cells 2+ Ovalocytes SLIGHT Schistocytes 1+ Retic Count (auto) 6.09 H Absolute Retic 0.141 H Sodium 139.8 Potassium 3.7 Chloride 107 Carbon Dioxide 23 Anion Gap 10 BUN 7 Creatinine 0.55 Est GFR ( Amer) > 60 Est GFR (Non-Af Amer) > 60 Glucose 113 H Calcium 9.8 Total Bilirubin 5.1 H Direct Bilirubin 0.8 H Neonat Total Bilirubin Not Reportable Neonat Direct Bilirubin Not Reportable Neonat Indirect Bili Not Reportable AST 57 H ALT 45 Alkaline Phosphatase 191 H Total Protein 8.2 Albumin 5.1 H Influenza A (Rapid) NEGATIVE Influenza B (Rapid) NEGATIVE Chest X-Ray 07/06/18 12:55 IMPRESSION: CHRONIC INTERSTITIAL CHANGES. NO ACUTE RADIOGRAPHIC FINDING IN THE CHEST. Temp Pulse Resp BP Pulse Ox 98.3 F 78 14 103/63 100 07/06/18 19:21 07/06/18 12:16 07/06/18 19:01 07/06/18 19:01 07/06/18 19:01 48-year-old female with sickle cell disease presents with upper respiratory complaints including cough, nasal congestion as well as complaints of pain in her legs and low back which is typical of a sickle cell flare. Patient is currently undergoing treatment with Dr. Parker and states that her pain medications have been suddenly decreased. CBC shows a stable anemia. Reticulocyte count and absolute reticulocyte are elevated. No evidence of acute chest on chest x-ray. Patient is influenza negative. Exam most consistent with upper respiratory infection likely viral. Patient did receive IV fluids, Dilaudid, fentanyl, Reglan, Benadryl during her ED course. 07/06/18 16:40 Patient reevaluated and reports that pain has not resolved. She does state that she was recently cut off from her pain medications medical aide. 07/07/18 11:25 On third reevaluation patient is resting comfortably. She will be discharged home in stable condition. Patient was evaluated and treated as appropriate for the patient's presenting symptoms and complaint, with consideration of any critical or life threatening conditions that may be associated with their obtained history and exam as noted above. All results were discussed with patient . Patient provided the opportunity to ask questions, and express concerns. Patient was educated on treatments based on their presumed diagnosis as noted above. At this time we will discharge the patient with return precautions and follow-up recommendations. Verbal discharge instructions given a the bedside. Medication warnings reviewed. Patient is in agreement with this plan and has verbalized understanding of return precautions. After careful consideration I feel that that patient can be safely discharged from the emergency department, they were advised to followup with a primary care physician in 2-3 days. Dictation on this chart was performed using voice recognition software and may result in unintended grammatical, spelling, syntax or errors. 07/07/18 11:28 Presentation is most consistent with a viral upper respiratory infection. Patient is overall well appearance, vitals within normal limits, well-hydrated. Patient denies any headache, neck pain, and has no evidence of meningismus on examination. Lungs are clear bilaterally. No evidence of respiratory distress. Based on clinical exam and history, I do not suspect an acute pneumonia, meningitis, strep pharyngitis, or an acute encephalitis. Will discharge patient with return precautions and followup recommendations. They are in agreement this plan have verbalized understanding return precautions. - Vital Signs Vital signs: Temp Pulse Resp BP Pulse Ox 98.3 F 78 14 103/63 100 07/06/18 19:21 07/06/18 12:16 07/06/18 19:01 07/06/18 19:01 07/06/18 19:01 - Laboratory Result Diagrams: 07/06/18 15:06 07/06/18 15:06 Laboratory results interpreted by me: 07/06/18 07/06/18 15:06 15:06 RBC 2.31 L Hgb 8.9 L Hct 25.3 L MCV 110 H MCH 38.7 H RDW 31.0 H Retic Count (auto) 6.09 H Absolute Retic 0.141 H Glucose 113 H Total Bilirubin 5.1 H Direct Bilirubin 0.8 H AST 57 H Alkaline Phosphatase 191 H Albumin 5.1 H - Diagnostic Test Radiology reviewed: Image reviewed, Reports reviewed Discharge - Discharge Clinical Impression: Sickle cell anemia with crisis URI (upper respiratory infection) Qualifiers: URI type: unspecified URI Qualified Code(s): J06.9 - Acute upper respiratory infection, unspecified Nausea & vomiting Qualifiers: Vomiting type: unspecified Vomiting Intractability: unspecified Qualified Code(s): R11.2 - Nausea with vomiting, unspecified Diarrhea Qualifiers: Diarrhea type: unspecified type Qualified Code(s): R19.7 - Diarrhea, unsp ecified Abdominal pain Qualifiers: Abdominal location: unspecified location Qualified Code(s): R10.9 - Unspecified abdominal pain Condition: Good Disposition: HOME, SELF-CARE Instructions: Diarrhea, Nonspecific ([facility]), Intravenous (IV) Fluids ([facility]), Sickle Cell Crisis ([facility]), Upper Respiratory Illness ([facility]), Viral Syndrome ([facility]), Vomiting ([facility]) Additional Instructions: Your symptoms are most likely due to a viral infection it should resolve over the next 7-14 days. You should take [id number] guanfacine per bottle instructions to help thin the mucus. For nasal congestion: I would recommend that you get [id number] oxymetazoline also known is afrin. Use only per bottle instructions and be sure to never use this for more than 3 days if you can develop severe rebound congestion. You may also use tylenol or ibuprofen as needed for aches and thorat discomfort. Please be sure to drink plenty of fluids and get rest. Return to the emergency department he began having difficulty breathing, chest pain, persistent vomiting, or any other symptoms that are concerning to you. Your symptoms are likely due to a viral illness and should resolve in the next several days. You can take [id number] loperamide also known as Imodium as needed for diarrhea per box instructions. Continue to stay hydrated with plenty of solution such as Gatorade or Pedialyte. You are being prescribed Zofran to take as needed for nausea and vomiting. Please return if you develop severe abdominal pain, pass out, become unable to tolerate any oral fluids for 12 more hours, or any other symptoms that are concerning to you. Prescriptions: Ondansetron [Zofran Odt 4 mg Tablet] 1 - 2 tab PO Q4H PRN #15 tab.rapdis PRN Reason: For Nausea/Vomiting Referrals: HOMA BARRAZA MD [Primary Care Provider] - Follow up as needed
[2018-07-06 15:27] LABS: ABSOLUTE RETICS # 0.141 10^6/uL (0.028-0.122); HEMATOCRIT 25.3 % (36.0-47.0); HEMOGLOBIN 8.9 g/dL (12.0-15.5); MEAN CORPUSCULAR HEMOGLOBIN 38.7 pg (27.0-33.4); MEAN CORPUSCULAR HGB CONC 35.3 g/dL (32.0-36.0); MEAN CORPUSCULAR VOLUME 110 fl (80-97); PLATELET COUNT 269 10^3/uL (150-450); RED BLOOD COUNT 2.31 10^6/uL (3.72-5.28); RETICULOCYTE COUNT (AUTO) 6.09 % (0.66-2.85); WHITE BLOOD COUNT 5.4 10^3/uL (4.0-10.5)
[2018-07-06 15:34] LABS: ALANINE AMINOTRANSFERASE 45 U/L (9-52); ALBUMIN 5.1 g/dL (3.5-5.0); ALKALINE PHOSPHATASE 191 U/L (38-126); ANION GAP 10 (5-19); ASPARTATE AMINO TRANSFERASE 57 U/L (14-36); BILIRUBIN,DIRECT 0.8 mg/dL (0.0-0.4); BILIRUBIN,TOTAL 5.1 mg/dL (0.2-1.3); BLOOD UREA NITROGEN 7 mg/dL (7-20); CALCIUM 9.8 mg/dL (8.4-10.2); CARBON DIOXIDE 23 mmol/L (22-30); CHLORIDE 107 mmol/L (98-107); GLUCOSE 113 mg/dL (75-110); POTASSIUM 3.7 mmol/L (3.6-5.0); SODIUM 139.8 mmol/L (137-145); TOTAL PROTEIN 8.2 g/dL (6.3-8.2)
[2018-07-06 15:59] LABS: ABSOLUTE LYMPHOCYTES# (MANUAL) 1.2 10^3/uL (0.5-4.7); ABSOLUTE MONOCYTES # (MANUAL) 0.3 10^3/uL (0.1-1.4); ABSOLUTE NEUTROPHILS# (MANUAL) 3.8 10^3/uL (1.7-8.2); ANISOCYTOSIS 3+; BASOPHILS % (MANUAL) 1 % (0-2); EOSINOPHILS % (MANUAL) 0 % (0-6); LYMPHOCYTES % (MANUAL) 22 % (13-45); MONOCYTES % (MANUAL) 6 % (3-13); NUCLEATED RED BLOOD CELLS 13 /100 WBC (0); POIKILOCYTOSIS 2+; POLYCHROMASIA 1+; SEGMENTED NEUTROPHILS % (MAN) 71 % (42-78); TOTAL CELLS COUNTED 100
[2018-07-06 16:00] LABS: HYPOCHROMASIA 2+; OVALOCYTES SLIGHT; PAPPENHEIMER BODIES PRESENT; SCHISTOCYTES 1+; SICKLE RED CELLS 1+; TARGET CELLS 2+
[2018-07-06 16:01] LABS: PLATELET COMMENT ADEQUATE
[2018-07-06] MEDS ORDERED: DIPHENHYDRAMINE HCL 50 MG/ML VIAL IV ONE (16:41)
[2018-07-06] MEDS ORDERED: METOCLOPRAMIDE HCL INJ/PF 10 MG/2 ML SDV IV ONE (16:41)
[2018-07-06] MEDS ORDERED: FENTANYL CITRATE INJ/PF 100 MCG/2 ML AMPUL IV ONE (17:34)
[2018-07-06] MEDS ORDERED: ONDANSETRON ODT 4 MG TAB (6 TAB/ER DISP) PO PRN (18:04)
[2018-07-06] MEDS ORDERED: HYDROCODONE/ACETAMINOPHEN 5-325 MG (6 TAB/ER DISP) PO PRN (18:04)
[2018-07-06 19:11] VITALS: BP 103/63
== END 2018-07-06 19:22 | disposition home or self-care (01) ==
LOC: EEVIPCON 11:48 → ER 11:48
DX: D57.00 Hb-SS disease with crisis, unspecified (principal); J06.9 Acute upper respiratory infection, unspecified; M79.10 Myalgia, unspecified site; R11.2 Nausea with vomiting, unspecified; R19.7 Diarrhea, unspecified; R10.9 Unspecified abdominal pain; Z79.02 Long term (current) use of antithrombotics/antiplatelets
CPT/HCPCS: 36591; 96376; 99284; 96374; 96375; 36415; 85025; 85045; 80053; 87804; 71046; J1200; J3010; J2765; J1170; J2405; J7120; 96361

== ENCOUNTER 2018-07-09 14:23 | Emergency (ER) | payer MEDICAID ==
[2018-07-09] MEDS ORDERED: NORMAL SALINE 1000 ML 1,000 ML IV ONE (14:43)
[2018-07-09] MEDS ORDERED: MORPHINE SULFATE 10 MG/ML INJ IV ONE (14:43)
--- NOTE | 2018-07-09 14:45 | ER Document Report ---
ED Medical Screen (RME) - General Chief Complaint: Sickle Cell Crisis Stated Complaint: FEVER Time Seen by Provider: 07/09/18 14:42 Mode of Arrival: Ambulatory Information source: Patient TRAVEL OUTSIDE OF THE [place] IN LAST 30 DAYS: No - HPI Patient complains to provider of: fever; sickle cell crisis, ST Onset: Yesterday - pt with c/o SC crisis, ST, and decreased po intake - Related Data Allergies/Adverse Reactions: doxycycline [Doxycycline] Allergy (Severe, Verified 07/06/18 11:54) Past Medical History - Social History Chew tobacco use (# tins/day): No Frequency of alcohol use: None Drug Abuse: None - Past Medical History Cardiac Medical History: Reports: Hx Heart Murmur Denies: Hx Atrial Fibrillation, Hx Congestive Heart Failure, Hx Coronary Artery Disease, Hx Heart Attack, Hx Hypercholesterolemia, Hx Hypertension, Hx Peripheral Vascular Disease Pulmonary Medical History: Denies: Hx Tuberculosis Neurological Medical History: Denies: Hx Seizures Renal/ Medical History: Reports: Hx Ovarian Cysts. Denies: Hx Peritoneal Dialysis Malignancy Medical History: Denies: Hx Leukemia Musculoskeltal Medical History: Denies Hx Arthritis, Denies Hx Fibromyalgia, Denies Hx Muscular Dystrophy Skin Medical History: Reports Hx MRSA Psychiatric Medical History: Reports: Hx Anxiety, Hx Depression Traumatic Medical History: Denies: Hx Fractures Infectious Medical History: Reports: Hx MRSA - History of MRSA osteomyelitis. Denies: Hx HIV Past Surgical History: Reports: Hx Appendectomy, Hx Section, Hx Cholecystectomy, Hx Orthopedic Surgery - R knee, Hx Tonsillectomy. Denies: Hx Bowel Surgery, Hx Coronary Artery Bypass Graft, Hx Gastric Bypass Surgery, Hx Herniorrhaphy, Hx Mastectomy, Hx Pacemaker, Hx Tubal Ligation - Immunizations Immunizations up to date: Yes Hx Diphtheria, Pertussis, Tetanus Vaccination: Yes History of Influenza Vaccine for 03/2017 - 08/2017 Season: No Physical Exam - Vital signs Vitals: Temp Pulse Resp BP Pulse Ox 99.1 F 97 20 116/70 98 07/09/18 14:28 07/09/18 14:28 07/09/18 14:28 07/09/18 14:28 07/09/18 14:28 Course - Vital Signs Vital signs: Temp Pulse Resp BP Pulse Ox 99.1 F 97 20 116/70 98 07/09/18 14:28 07/09/18 14:28 07/09/18 14:28 07/09/18 14:28 07/09/18 14:28 Doctor's Discharge - Discharge Referrals: HOMA BARRAZA MD [Primary Care Provider] - Follow up as needed
--- NOTE | 2018-07-09 15:24 | RADIOLOGY REPORT (SQ) ---
EXAM DESCRIPTION: CHEST 2 VIEWS COMPLETED DATE/TIME: 07/09/2018 3:16 pm REASON FOR STUDY: fever; cough COMPARISON: 07/06/2018. EXAM PARAMETERS: NUMBER OF VIEWS: two views TECHNIQUE: Digital Frontal and Lateral radiographic views of the chest acquired. RADIATION DOSE: NA LIMITATIONS: none FINDINGS: LUNGS AND PLEURA: No opacities, masses or pneumothorax. No pleural effusion. MEDIASTINUM AND HILAR STRUCTURES: No masses or contour abnormalities. HEART AND VASCULAR STRUCTURES: Heart normal size. No evidence for failure. BONES: No acute findings. HARDWARE: Vascular port. Surgical clips in the upper abdomen. OTHER: No other significant finding. IMPRESSION: NO ACUTE RADIOGRAPHIC FINDING IN THE CHEST. TECHNICAL DOCUMENTATION: JOB ID: [id number] [employer]- All Rights Reserved Reading location - IP/workstation name: [email or web address]
[2018-07-09 15:30] LABS: APPEARANCE,URINE CLEAR; BILIRUBIN,URINE NEGATIVE (NEGATIVE); COLOR,URINE AMBER; GLUCOSE, URINE NEGATIVE (NEGATIVE); KETONES,URINE NEGATIVE (NEGATIVE); LEUKOCYTE ESTERASE,URINE SMALL (NEGATIVE); NITRITE,URINE NEGATIVE (NEGATIVE); PROTEIN,URINE NEGATIVE (NEGATIVE); URINE SPECIFIC GRAVITY 1.014
[2018-07-09] MEDS ORDERED: HYDROMORPHONE HCL INJ/PF 2 MG/ML AMPULE IV ONE ×2 (16:20→18:37)
--- NOTE | 2018-07-09 16:25 | ER Document Report ---
ED General - General Chief Complaint: Sickle Cell Crisis Stated Complaint: FEVER Time Seen by Provider: 07/09/18 14:42 Mode of Arrival: Ambulatory Notes: Patient is a 48-year-old female with sickle cell disease that presents to the emergency department for chief complaint of cough, runny nose, congestion, and some chest discomfort. Patient states that the symptoms started several days ago, she was seen in the emergency department earlier in the week, was diagnosed with a URI, her symptoms persisted, and she thinks that her sickle cell is flared up, she is having pain in her back, shoulders and legs, which is typical of her sickle cell pain crisis, so she decided come back to the emergency department. She currently rates her pain as a 6 out of 10, describes as a constant aching sensation in several joints. She had a cough that is been nonproductive as well as a sore throat. She is had a hard time swallowing and decreased oral intake as a result of her sore throat. Past Medical History: Sickle cell disease, hemolytic anemia Past Surgical History: Tonsillectomy, cholecystectomy, tubal ligation, appen dectomy, splenectomy, port placement Social History: Denies tobacco, alcohol or drug use. Family History: Reviewed and noncontributory for presenting illness Allergies: Reviewed, see documented allergy list. REVIEW OF SYSTEMS: Other than noted above, the 12 point review of systems was reviewed with the patient and were negative, all pertinent findings are included in the HPI. PHYSICAL EXAMINATION: Vital signs reviewed, nursing noted reviewed. GENERAL: Well-appearing, well-nourished and in no acute distress. HEAD: Atraumatic, normocephalic. EYES: Eyes appear normal, extraocular movements intact, scleral icterus, conjunctiva are normal. ENT: nares patent, mild posterior pharynx erythema, tonsils are surgically absent, moist mucous membranes. NECK: Normal range of motion, supple without lymphadenopathy LUNGS: Breath sounds clear to auscultation bilaterally and equal. No wheezes rales or rhonchi. HEART: Regular rate and rhythm without murmurs ABDOMEN: Soft, nontender, normoactive bowel sounds. No rebound, guarding, or rigidity. No masses appreciated. EXTREMITIES: Nontender, good range of motion, no pitting or edema. NEUROLOGICAL: No focal neurological deficits. Moves all extremities spontaneously Motor and sensory grossly intact on exam. PSYCH: Normal mood, normal affect. SKIN: Warm, Dry, normal turgor, no rashes or lesions noted on exposed skin TRAVEL OUTSIDE OF THE [place] IN LAST 30 DAYS: No - Related Data Allergies/Adverse Reactions: doxycycline [Doxycycline] Allergy (Severe, Verified 07/06/18 11:54) Past Medical History - General Information source: Patient - Social History Smoking Status: Never Smoker Chew tobacco use (# tins/day): No Frequency of alcohol use: None Drug Abuse: None Family History: Reviewed & Not Pertinent Patient has suicidal ideation: No Patient has homicidal ideation: No - Past Medical History Cardiac Medical History: Reports: Hx Heart Murmur Denies: Hx Atrial Fibrillation, Hx Congestive Heart Failure, Hx Coronary Artery Disease, Hx Heart Attack, Hx Hypercholesterolemia, Hx Hypertension, Hx Peripheral Vascular Disease Pulmonary Medical History: Denies: Hx Tuberculosis Neurological Medical History: Denies: Hx Seizures Renal/ Medical History: Reports: Hx Ovarian Cysts. Denies: Hx Peritoneal Dialysis Malignancy Medical History: Denies: Hx Leukemia Musculoskeletal Medical History: Denies Hx Arthritis, Denies Hx Fibromyalgia, Denies Hx Muscular Dystrophy Skin Medical History: Reports Hx MRSA Psychiatric Medical History: Reports: Hx Anxiety, Hx Depression Traumatic Medical History: Denies: Hx Fractures Infectious Medical History: Reports: Hx MRSA - History of MRSA osteomyelitis. Denies: Hx HIV Past Surgical History: Reports: Hx Appendectomy, Hx Section, Hx Cholecystectomy, Hx Orthopedic Surgery - R knee, Hx Tonsillectomy. Denies: Hx Bowel Surgery, Hx Coronary Artery Bypass Graft, Hx Gastric Bypass Surgery, Hx Herniorrhaphy, Hx Mastectomy, Hx Pacemaker, Hx Tubal Ligation - Immunizations Immunizations up to date: Yes Hx Diphtheria, Pertussis, Tetanus Vaccination: Yes Hx Pneumococcal Vaccination: 03/20/14 Physical Exam - Vital signs Vitals: Temp Pulse Resp BP Pulse Ox 99.1 F 97 20 116/70 98 07/09/18 14:28 07/09/18 14:28 07/09/18 14:28 07/09/18 14:28 07/09/18 14:28 Course - Re-evaluation Re-evalutation: Patient seen and examined vital signs reviewed. Laboratory data and imaging were ordered as appropriate for the patient's presenting symptoms and complaint, with consideration of any critical or life threatening conditions that may be associated with their obtained history and exam as noted above. Patient was treated with IV fluids, IV Dilaudid and Phenergan Results were reviewed when available and demonstrated slightly increased bilirubin from the patient's prior visit, and slightly decreased hemoglobin, but still in safe range, patient does have a history of hemolytic anemia, she is missed several doses of her hydroxyurea, which is explaining a worsening of her hemolytic anemia, but it has been worse in the past, the patient is not demonstrating any signs of kernicterus, or worsening symptoms from that st andpoint, I advised her that she needs to resume taking her hydroxyurea, she is given a prescription for Phenergan to take at home, and is well as oxycodone IR to take for her breakthrough pain for her sickle cell pain crisis. There was otherwise no evidence of acute infection, her chest x-ray is negative, no bilateral infiltrates, no concern for acute chest syndrome. Patient will be discharged to home advised to follow-up or if her symptoms worsen to return to the ED which she was agreeable to. The patient was re-evaluated and was improved, her evaluation was most consistent with hemolytic anemia, hyperbilirubinemia, URI, sickle cell pain crisis. Results were discussed with the patient at this point, after careful consideration I feel that that patient can be discharged from the emergency department, the patient was educated treatments and reasons to return to the emergency department based on their presumed diagnosis as noted above, they were advised to followup with a primary care physician in 2-3 days. Patient was agreeable to plan of care. *Note is created using voice recognition software and may contain spelling, syntax or grammatical errors. Laboratory 07/09/18 07/09/18 07/09/18 14:59 14:59 16:30 WBC 7.6 RBC 2.09 L Hgb 8.3 L Hct 23.0 L MCV 110 H MCH 39.7 H MCHC 36.0 RDW 30.0 H Plt Count 238 Total Counted 100 Seg Neutrophils % Not Reportable Seg Neuts % (Manual) 50 Lymphocytes % Not Reportable Lymphocytes % (Manual) 38 Monocytes % Not Reportable Monocytes % (Manual) 5 Eosinophils % Not Reportable Eosinophils % (Manual) 7 H Basophils % Not Reportable Basophils % (Manual) 0 Absolute Neutrophils Not Reportable Abs Neuts (Manual) 3.8 Absolute Lymphocytes Not Reportable Abs Lymphs (Manual) 2.9 Absolute Monocytes Not Reportable Abs Monocytes (Manual) 0.4 Absolute Eosinophils Not Reportable Absolute Eos (Manual) 0.5 Absolute Basophils Not Reportable Abs Basophils (Manual) 0.0 Platelet Comment ADEQUATE Polychromasia SLIGHT Poikilocytosis 1+ Anisocytosis 4+ Macrocytosis 2+ Target Cells SLIGHT Ovalocytes SLIGHT Retic Count (auto) 3.64 H Absolute Retic 0.076 Sodium Potassium Chloride Carbon Dioxide Anion Gap BUN Creatinine Est GFR ( Amer) Est GFR (Non-Af Amer) Glucose Calcium Total Bilirubin Direct Bilirubin Neonat Total Bilirubin Neonat Direct Bilirubin Neonat Indirect Bili AST ALT Alkaline Phosphatase Total Protein Albumin Urine Color HINA Urine Appearance CLEAR Urine pH 5.0 Ur Specific [place] 1.014 Urine Protein NEGATIVE Urine Glucose (UA) NEGATIVE Urine Ketones NEGATIVE Urine Blood NEGATIVE Urine Nitrite NEGATIVE Urine Bilirubin NEGATIVE Urine Urobilinogen 4.0 H Ur Leukocyte Esterase SMALL H Urine WBC (Auto) 2 Urine RBC (Auto) 0 Squamous Epi Cells Auto 2 Urine Mucus (Auto) OCC Urine Ascorbic Acid NEGATIVE Group A Strep Rapid NEGATIVE 07/09/18 16:30 WBC RBC Hgb Hct MCV MCH MCHC RDW Plt Count Total Counted Seg Neutrophils % Seg Neuts % (Manual) Lymphocytes % Lymphocytes % (Manual) Monocytes % Monocytes % (Manual) Eosinophils % Eosinophils % (Manual) Basophils % Basophils % (Manual) Absolute Neutrophils Abs Neuts (Manual) Absolute Lymphocytes Abs Lymphs (Manual) Absolute Monocytes Abs Monocytes (Manual) Absolute Eosinophils Absolute Eos (Manual) Absolute Basophils Abs Basophils (Manual) Platelet Comment Polychromasia Poikilocytosis Anisocytosis Macrocytosis Target Cells Ovalocytes Retic Count (auto) Absolute Retic Sodium 140.3 Potassium 3.7 Chloride 110 H Carbon Dioxide 20 L Anion Gap 10 BUN 11 Creatinine 0.76 Est GFR ( Amer) > 60 Est GFR (Non-Af Amer) > 60 Glucose 104 Calcium 9.9 Total Bilirubin 6.0 H Direct Bilirubin 1.0 H Neonat Total Bilirubin Not Reportable Neonat Direct Bilirubin Not Reportable Neonat Indirect Bili Not Reportable AST 38 H ALT 37 Alkaline Phosphatase 157 H Total Protein 7.9 Albumin 5.0 Urine Color Urine Appearance Urine pH Ur Specific [place] Urine Protein Urine Glucose (UA) Urine Ketones Urine Blood Urine Nitrite Urine Bilirubin Urine Urobilinogen Ur Leukocyte Esterase Urine WBC (Auto) Urine RBC (Auto) Squamous Epi Cells Auto Urine Mucus (Auto) Urine Ascorbic Acid Group A Strep Rapid Chest X-Ray 07/09/18 14:43 IMPRESSION: NO ACUTE RADIOGRAPHIC FINDING IN THE CHEST. - Vital Signs Vital signs: Temp Pulse Resp BP Pulse Ox 99.1 F 87 17 106/75 99 07/09/18 19:14 07/09/18 19:14 07/09/18 19:14 07/09/18 19:14 07/09/18 19:14 - Laboratory Result Diagrams: 07/09/18 16:30 07/09/18 16:30 Laboratory results interpreted by me: 07/09/18 07/09/18 07/09/18 14:59 16:30 16:30 RBC 2.09 L Hgb 8.3 L Hct 23.0 L MCV 110 H MCH 39.7 H RDW 30.0 H Eosinophils % (Manual) 7 H Retic Count (auto) 3.64 H Chloride 110 H Carbon Dioxide 20 L Total Bilirubin 6.0 H Direct Bilirubin 1.0 H AST 38 H Alkaline Phosphatase 157 H Urine Urobilinogen 4.0 H Ur Leukocyte Esterase SMALL H Discharge - Discharge Clinical Impression: Sickle cell pain crisis, Hyperbilirubinemia Hemolytic anemia Qualifiers: Hemolytic anemia type: other hemoglobinopathy Qualified Code(s): D58.2 - Other hemoglobinopathies URI (upper respiratory infection) Qualifiers: URI type: unspecified URI Qualified Code(s): J06.9 - Acute upper respiratory infection, unspecified Condition: Stable Disposition: HOME, SELF-CARE Additional Instructions: Please follow-up with your primary care physician, and please start retaking your hydroxyurea, as your hemolytic anemia could continue to worsen if you do not, please take the prescribed medications to help manage her symptoms at home, you can also purchase Chloraseptic spray from the pharmacy, its [id number] to help with your sore throat. And ultimately if your symptoms do not improve, or they are worsening, you can always return to the emergency department. Prescriptions: Oxycodone HCl [Oxycontin Ir 5 Mg Tablet] 1 mg PO Q6H PRN #15 tablet PRN Reason: For Pain Promethazine HCl [Phenergan 25 mg Tablet] 1 tab PO Q6H PRN #15 tablet PRN Reason: nausea/vomiting Referrals: HOMA BARRAZA MD [Primary Care Provider] - Follow up in 3-5 days
[2018-07-09] MEDS ORDERED: DEXAMETHASONE SOD PHOS INJ 10 MG/1 ML VIAL IV ONE (16:26)
[2018-07-09 16:44] LABS: ABSOLUTE RETICS # 0.076 10^6/uL (0.028-0.122); HEMOGLOBIN 8.3 g/dL (12.0-15.5); MEAN CORPUSCULAR HEMOGLOBIN 39.7 pg (27.0-33.4); MEAN CORPUSCULAR VOLUME 110 fl (80-97); PLATELET COUNT 238 10^3/uL (150-450); RED BLOOD COUNT 2.09 10^6/uL (3.72-5.28); RETICULOCYTE COUNT (AUTO) 3.64 % (0.66-2.85); WHITE BLOOD COUNT 7.6 10^3/uL (4.0-10.5)
[2018-07-09 16:59] LABS: ALANINE AMINOTRANSFERASE 37 U/L (9-52); ALKALINE PHOSPHATASE 157 U/L (38-126); ANION GAP 10 (5-19); ASPARTATE AMINO TRANSFERASE 38 U/L (14-36); BLOOD UREA NITROGEN 11 mg/dL (7-20); CALCIUM 9.9 mg/dL (8.4-10.2); CARBON DIOXIDE 20 mmol/L (22-30); CHLORIDE 110 mmol/L (98-107); GLUCOSE 104 mg/dL (75-110); POTASSIUM 3.7 mmol/L (3.6-5.0); SODIUM 140.3 mmol/L (137-145); TOTAL PROTEIN 7.9 g/dL (6.3-8.2)
[2018-07-09 17:03] LABS: ABSOLUTE LYMPHOCYTES# (MANUAL) 2.9 10^3/uL (0.5-4.7); ABSOLUTE MONOCYTES # (MANUAL) 0.4 10^3/uL (0.1-1.4); ABSOLUTE NEUTROPHILS# (MANUAL) 3.8 10^3/uL (1.7-8.2); BASOPHILS % (MANUAL) 0 % (0-2); EOSINOPHILS % (MANUAL) 7 % (0-6); LYMPHOCYTES % (MANUAL) 38 % (13-45); MONOCYTES % (MANUAL) 5 % (3-13); SEGMENTED NEUTROPHILS % (MAN) 50 % (42-78); TOTAL CELLS COUNTED 100
[2018-07-09 17:05] LABS: ANISOCYTOSIS 4+; OVALOCYTES SLIGHT; PLATELET COMMENT ADEQUATE; POIKILOCYTOSIS 1+; POLYCHROMASIA SLIGHT; TARGET CELLS SLIGHT
[2018-07-09] MEDS ORDERED: ONDANSETRON HCL INJ/PF 4 MG/2 ML SDV IV ONE (17:24)
[2018-07-09] MEDS ORDERED: PROMETHAZINE HCL INJ 25 MG/1 ML VIAL IV ONE (17:31)
[2018-07-09] MEDS ORDERED: LIDOCAINE 2% INJ-PF (20 MG/ML) 10 ML AMPUL NEB ONE (17:32)
[2018-07-09 19:15] VITALS: BP 106/75
== END 2018-07-09 19:15 | disposition home or self-care (01) ==
LOC: ER 14:23
DX: D57.00 Hb-SS disease with crisis, unspecified (principal); E80.6 Other disorders of bilirubin metabolism; J06.9 Acute upper respiratory infection, unspecified; Z86.14 Personal history of Methicillin resistant Staphylococcus aureus infection; Z90.49 Acquired absence of other specified parts of digestive tract
CPT/HCPCS: 36591; 96376; 94640; 99284; 96361; 96374; 96375; 36415; 87070; 87880; 85025; 85045; 80053; 81001; 71046; J2270; J1170; J2550; J7030; J3490; J1100

== ENCOUNTER 2018-07-14 10:22 | Emergency (ER) | payer MEDICAID ==
[2018-07-14] MEDS ORDERED: HYDROMORPHONE HCL INJ/PF 2 MG/ML AMPULE IV ONE ×3 (10:44→13:12)
[2018-07-14] MEDS ORDERED: NORMAL SALINE 1000 ML 1,000 ML IV ONE (10:44)
--- NOTE | 2018-07-14 11:07 | ER Document Report ---
Entered by GEORGINA RÍOS SCRIBE 07/14/18 1104 Acting as scribe for:RAÚL CAMP DO ED Medical Screen (RME) - General Chief Complaint: Sickle Cell Crisis Stated Complaint: CHEST PAIN Time Seen by Provider: 07/14/18 10:39 Primary Care Provider: HOMA BARRAZA MD [Primary Care Provider] - Follow up as needed Notes: 48-year-old female with sickle cell disease on Xarelto who presents to the emergency department today with complaints of chest pain and feeling like her "throat is closing". Patient states she was treated here in this ED about one week ago for this same throat sensation. Patient states that it seemed to subside but she has had recent sick contacts and she states "it came right back". Patient states she "feels like she is choking in her sleep" and describes it as a "closing sensation" which she states she has had several times in the past. Patient states she has a history of acute chest syndrome in the past and her symptoms today feel more similar to that then a lung infection. Patient states she has never had to have an exchange transfusion but has had PEs in the past. Patient states she is prescribed OxyContin 40 mg twice daily for her pain ane she has been taking it as prescribed. Patient states she had a fever of 101.2 prior to arrival today. I have greeted and performed a rapid initial assessment of this patient. A comprehensive ED assessment and evaluation of the patient, analysis of test results, and completion of the medical decision making process will be conducted by additional ED providers. Review of systems: Constitutional: Fevers. EENT: Throat closing sensation. Cardiovascular: Chest pain. Respiratory: No symptoms reported Gastrointestinal: No symptoms reported Genitourinary: No symptoms reported Musculoskeletal: No symptoms reported Skin: No symptoms reported Hematologic/Lymphatic: No symptoms reported Neurological/Psychological: No symptoms reported Yes All other systems reviewed and negative PHYSICAL EXAM GENERAL: Alert, interacts well. No acute distress. HEAD: Normocephalic, atraumatic. EYES: Pupils equal, round, and reactive to light. Extraocular movements intact. ENT: Oral mucosa moist, tongue midline. NECK: Full range of motion. Supple. Trachea midline. LUNGS: Clear to auscultation bilaterally, no wheezes, rales, or rhonchi. No respiratory distress. HEART: Regular rate and rhythm. 06/25 end systolic murmur. EXTREMITIES: Moves all 4 extremities spontaneously. NEUROLOGICAL: Alert and oriented x3. Normal speech. PSYCH: Normal affect, normal mood. SKIN: Warm and dry. TRAVEL OUTSIDE OF THE [place] IN LAST 30 DAYS: No - Related Data Allergies/Adverse Reactions: doxycycline [Doxycycline] Allergy (Severe, Verified 07/14/18 10:25) Past Medical History - Past Medical History Cardiac Medical History: Reports: Hx Heart Murmur Denies: Hx Atrial Fibrillation, Hx Congestive Heart Failure, Hx Coronary Artery Disease, Hx Heart Attack, Hx Hypercholesterolemia, Hx Hypertension, Hx Peripheral Vascular Disease Pulmonary Medical History: Denies: Hx Tuberculosis Neurological Medical History: Denies: Hx Seizures Renal/ Medical History: Reports: Hx Ovarian Cysts. Denies: Hx Peritoneal Dialysis Malignancy Medical History: Denies: Hx Leukemia Musculoskeltal Medical History: Denies Hx Arthritis, Denies Hx Fibromyalgia, Denies Hx Muscular Dystrophy Skin Medical History: Reports Hx MRSA Psychiatric Medical History: Reports: Hx Anxiety, Hx Depression Traumatic Medical History: Denies: Hx Fractures Infectious Medical History: Reports: Hx MRSA - History of MRSA osteomyelitis. Denies: Hx HIV Past Surgical History: Reports: Hx Appendectomy, Hx Section, Hx Cholecystectomy, Hx Orthopedic Surgery - R knee, Hx Tonsillectomy. Denies: Hx Bowel Surgery, Hx Coronary Artery Bypass Graft, Hx Gastric Bypass Surgery, Hx Herniorrhaphy, Hx Mastectomy, Hx Pacemaker, Hx Tubal Ligation - Immunizations Immunizations up to date: Yes Hx Diphtheria, Pertussis, Tetanus Vaccination: Yes History of Influenza Vaccine for 03/2017 - 08/2017 Season: No Physical Exam - Vital signs Vitals: Temp Pulse Resp BP Pulse Ox 99.0 F 91 18 93/54 L 99 07/14/18 10:37 07/14/18 10:37 07/14/18 10:37 07/14/18 10:37 07/14/18 10:37 Course - Vital Signs Vital signs: Temp Pulse Resp BP Pulse Ox 99.0 F 91 18 93/54 L 99 07/14/18 10:37 07/14/18 10:37 07/14/18 10:37 07/14/18 10:37 07/14/18 10:37 Doctor's Discharge - Discharge Referrals: HOMA BARRAZA MD [Primary Care Provider] - Follow up as needed I personally performed the services described in the documentation, reviewed and edited the documentation which was dictated to the scribe in my presence, and it accurately records my words and actions.
--- NOTE | 2018-07-14 11:27 | RADIOLOGY REPORT (SQ) ---
EXAM DESCRIPTION: CHEST 2 VIEWS COMPLETED DATE/TIME: 07/14/2018 11:14 am REASON FOR STUDY: chest pain, sickle cell, ?acute chest COMPARISON: 07/09/2018 EXAM PARAMETERS: NUMBER OF VIEWS: two views TECHNIQUE: Digital Frontal and Lateral radiographic views of the chest acquired. RADIATION DOSE: NA LIMITATIONS: none FINDINGS: LUNGS AND PLEURA: No opacities, masses or pneumothorax. No pleural effusion. MEDIASTINUM AND HILAR STRUCTURES: No masses or contour abnormalities. HEART AND VASCULAR STRUCTURES: Heart normal size. No evidence for failure. BONES: No acute findings. HARDWARE: Injection port on the left. OTHER: No other significant finding. IMPRESSION: NO ACUTE RADIOGRAPHIC FINDING IN THE CHEST. TECHNICAL DOCUMENTATION: JOB ID: [id number] [employer]- All Rights Reserved Reading location - IP/workstation name: [email or web address]
[2018-07-14] MEDS ORDERED: KETOROLAC TROMETHAMINE INJ/PF 30 MG/1 ML SDV IV ONE (11:45)
[2018-07-14 12:18] LABS: ALANINE AMINOTRANSFERASE 53 U/L (9-52); ALBUMIN 4.7 g/dL (3.5-5.0); ALKALINE PHOSPHATASE 159 U/L (38-126); ANION GAP 8 (5-19); ASPARTATE AMINO TRANSFERASE 50 U/L (14-36); BILIRUBIN,DIRECT 0.5 mg/dL (0.0-0.4); BILIRUBIN,TOTAL 3.6 mg/dL (0.2-1.3); BLOOD UREA NITROGEN 8 mg/dL (7-20); CALCIUM 9.8 mg/dL (8.4-10.2); CARBON DIOXIDE 23 mmol/L (22-30); CHLORIDE 111 mmol/L (98-107); GLUCOSE 106 mg/dL (75-110); POTASSIUM 4.2 mmol/L (3.6-5.0); TOTAL PROTEIN 7.6 g/dL (6.3-8.2)
[2018-07-14 12:24] LABS: A TYPE INFLUENZA AG NEGATIVE (NEGATIVE); B INFLUENZA AG NEGATIVE (NEGATIVE)
[2018-07-14 12:35] LABS: ABSOLUTE RETICS # 0.069 10^6/uL (0.028-0.122); HEMATOCRIT 21.6 % (36.0-47.0); MEAN CORPUSCULAR HGB CONC 35.5 g/dL (32.0-36.0); MEAN CORPUSCULAR VOLUME 110 fl (80-97); PLATELET COUNT 289 10^3/uL (150-450); RED BLOOD COUNT 1.97 10^6/uL (3.72-5.28); RED CELL DISTRIBUTION WIDTH 30.4 % (11.5-14.0); RETICULOCYTE COUNT (AUTO) 3.52 % (0.66-2.85); WHITE BLOOD COUNT 5.4 10^3/uL (4.0-10.5)
[2018-07-14 12:48] LABS: HEMOGLOBIN 7.7 g/dL (12.0-15.5)
[2018-07-14 12:54] LABS: ABSOLUTE LYMPHOCYTES# (MANUAL) 1.6 10^3/uL (0.5-4.7); ABSOLUTE MONOCYTES # (MANUAL) 0.2 10^3/uL (0.1-1.4); ABSOLUTE NEUTROPHILS# (MANUAL) 3.4 10^3/uL (1.7-8.2); BASOPHILS % (MANUAL) 0 % (0-2); EOSINOPHILS % (MANUAL) 4 % (0-6); LYMPHOCYTES % (MANUAL) 30 % (13-45); MONOCYTES % (MANUAL) 3 % (3-13); NUCLEATED RED BLOOD CELLS 5 /100 WBC (0); SEGMENTED NEUTROPHILS % (MAN) 63 % (42-78); TOTAL CELLS COUNTED 100
[2018-07-14 12:56] LABS: ANISOCYTOSIS 4+; OVALOCYTES 1+; PLATELET COMMENT ADEQUATE; PLATELET LARGE PRESENT; POIKILOCYTOSIS 2+; POLYCHROMASIA 2+; SCHISTOCYTES 1+; SICKLE RED CELLS SLIGHT
[2018-07-14 12:57] LABS: HYPOCHROMASIA 2+; PAPPENHEIMER BODIES PRESENT; TARGET CELLS SLIGHT
[2018-07-14 13:08] VITALS: BP 111/73
--- NOTE | 2018-07-14 13:52 | ER Document Report ---
ED General - General Chief Complaint: Sickle Cell Crisis Stated Complaint: CHEST PAIN Time Seen by Provider: 07/14/18 10:39 Primary Care Provider: HOMA BARRAZA MD [Primary Care Provider] - Follow up in 3-5 days TRAVEL OUTSIDE OF THE [place] IN LAST 30 DAYS: No - HPI Patient complains to provider of: Sickle cell pain chest pain feeling unwell Notes: Patient coming in for the above-stated symptoms. Patient was seen by triage provider's notes provided below 48-year-old female with sickle cell disease on Xarelto who presents to the emergency department today with complaints of chest pain and feeling like her "throat is closing". Patient states she was treated here in this ED about one week ago for this same throat sensation. Patient states that it seemed to subside but she has had recent sick contacts and she states "it came right back". Patient states she "feels like she is choking in her sleep" and describes it as a "closing sensation" which she states she has had several times in the past. Patient states she has a history of acute chest syndrome in the past and her symptoms today feel more similar to that then a lung infection. Patient states she has never had to have an exchange transfusion but has had PEs in the past. Patient states she is prescribed OxyContin 40 mg twice daily for her pain ane she has been taking it as prescribed. Patient states she had a fever of 101.2 prior to arrival today. Upon my evaluation patient is resting healthily. Patient states that multiple sick contacts with grandchildren coming over with viral-like illnesses. Patient states she has been compliant with her pain management at home. Patient states most of her pain is throughout her entire body in her neck and arms and her chest. Patient looks to be no obvious distress upon my evaluation. Patient states she is slightly nauseous. Patient does state recent multiple visits here to the ER. A brief review of the patient's past medical records available in [employer] was performed - Related Data Allergies/Adverse Reactions: doxycycline [Doxycycline] Allergy (Severe, Verified 07/14/18 10:25) Past Medical History - Social History Smoking Status: Unknown if Ever Smoked Family History: Reviewed & Not Pertinent Patient has suicidal ideation: No Patient has homicidal ideation: No - Past Medical History Cardiac Medical History: Reports: Hx Heart Murmur Denies: Hx Atrial Fibrillation, Hx Congestive Heart Failure, Hx Coronary Artery Disease, Hx Heart Attack, Hx Hypercholesterolemia, Hx Hypertension, Hx Peripheral Vascular Disease Pulmonary Medical History: Denies: Hx Tuberculosis Neurological Medical History: Denies: Hx Seizures Renal/ Medical History: Reports: Hx Ovarian Cysts. Denies: Hx Peritoneal Dialysis Malignancy Medical History: Denies: Hx Leukemia Musculoskeletal Medical History: Denies Hx Arthritis, Denies Hx Fibromyalgia, Denies Hx Muscular Dystrophy Skin Medical History: Reports Hx MRSA Psychiatric Medical History: Reports: Hx Anxiety, Hx Depression Traumatic Medical History: Denies: Hx Fractures Infectious Medical History: Reports: Hx MRSA - History of MRSA osteomyelitis. Denies: Hx HIV Past Surgical History: Reports: Hx Appendectomy, Hx Section, Hx Cholecystectomy, Hx Orthopedic Surgery - R knee, Hx Tonsillectomy. Denies: Hx Bowel Surgery, Hx Coronary Artery Bypass Graft, Hx Gastric Bypass Surgery, Hx H erniorrhaphy, Hx Mastectomy, Hx Pacemaker, Hx Tubal Ligation - Immunizations Immunizations up to date: Yes Hx Diphtheria, Pertussis, Tetanus Vaccination: Yes Hx Pneumococcal Vaccination: 03/20/14 Review of Systems - Review of Systems Constitutional: No symptoms reported EENT: No symptoms reported Cardiovascular: Chest pain Respiratory: No symptoms reported Gastrointestinal: Nausea Genitourinary: No symptoms reported Female Genitourinary: No symptoms reported Musculoskeletal: Muscle pain Skin: No symptoms reported Hematologic/Lymphatic: No symptoms reported Neurological/Psychological: No symptoms reported -: Yes All other systems reviewed and negative Physical Exam - Vital signs Vitals: Temp Pulse Resp BP Pulse Ox 99.0 F 91 18 93/54 L 99 07/14/18 10:37 07/14/18 10:37 07/14/18 10:37 07/14/18 10:37 07/14/18 10:37 Interpretation: Normal - General General appearance: Appears well, Alert - HEENT Head: Normocephalic, Atraumatic Eyes: Normal Pupils: PERRL - Respiratory Respiratory status: No respiratory distress Chest status: Nontender Breath sounds: Normal Chest palpation: Normal - Cardiovascular Rhythm: Regular Heart sounds: Normal auscultation Murmur: No - Abdominal Inspection: Normal Distension: No distension Bowel sounds: Normal Tenderness: Nontender Organomegaly: No organomegaly - Back Back: Normal, Nontender - Extremities General upper extremity: Normal inspection, Nontender, Normal color, Normal ROM, Normal temperature General lower extremity: Normal inspection, Nontender, Normal color, Normal ROM, Normal temperature, Normal weight bearing. No: Kin's sign - Neurological Neuro grossly intact: Yes Cognition: Normal Orientation: AAOx4 Zeeshan Coma Scale Eye Opening: Spontaneous [place] Coma Scale Verbal: Oriented [place] Coma Scale Motor: Obeys Commands Zeeshan Coma Scale Total: 15 Speech: Normal Motor strength normal: LUE, RUE, LLE, RLE Sensory: Normal - Psychological Associated symptoms: Normal affect, Normal mood - Skin Skin Temperature: Warm Skin Moisture: Dry Skin Color: Normal Course - Re-evaluation Re-evalutation: 07/14/18 15:30 Laboratory studies actually showed improvement patient's reticulocyte count and decrease in the patient's bilirubin. Patient does have slight worsening of her anemia at 7.7 however patient states normally she is only transfuse when this becomes below 7. Vital signs remained stable. Patient stating that she was still and a small amount of pain and did recommend another dose however explained the patient with her vital signs and her laboratory studies show improvement more likely she will be discharged home requesting as discussed her case with her PCP I did call Dr. Barraza did reviewed patient's laboratory studies who agrees with outpatient management at this time no need for admission patient is to continue her home medications. - Vital Signs Vital signs: Temp Pulse Resp BP Pulse Ox 99.0 F 80 18 111/73 100 07/14/18 10:37 07/14/18 13:07 07/14/18 13:07 07/14/18 13:07 07/14/18 13:07 - Laboratory Result Diagrams: 07/14/18 11:35 07/14/18 11:35 Laboratory results interpreted by me: 07/14/18 07/14/18 11:35 11:35 RBC 1.97 L Hgb 7.7 L Hct 21.6 L MCV 110 H MCH 39.0 H RDW 30.4 H Retic Count (auto) 3.52 H Chloride 111 H Total Bilirubin 3.6 H Direct Bilirubin 0.5 H AST 50 H ALT 53 H Alkaline Phosphatase 159 H Lactate Dehydrogenase 284 H Discharge - Discharge Clinical Impression: Flu-like symptoms Sickle cell anemia Qualifiers: Sickle-cell associated disorders: with unspecified crisis Qualified Code(s): D57.00 - Hb-SS disease with crisis, unspecified; D57.0 - Hb-SS disease with cr cate Condition: Good Disposition: HOME, SELF-CARE Instructions: Sickle Cell Crisis ([facility]) Additional Instructions: Laboratory studies today showed improvement of your reticulocyte count your anemia is at 7.7 I did discuss your case with Dr. Barraza and did review your lab results from the last 3 visits he recommends discharge at this time for you to follow-up in his office sometime next week please call their office today to schedule an appointment continue all home medications Prescriptions: Ondansetron [Zofran Odt 4 mg Tablet] 1 - 2 tab PO Q4H PRN #30 tab.rapdis PRN Reason: For Nausea/Vomiting Referrals: HOMA BARRAZA MD [Primary Care Provider] - Follow up in 3-5 days
--- NOTE | 2018-07-14 22:57 | EKG REPORT ---
SEVERITY:- NORMAL ECG - SINUS RHYTHM : Confirmed by: No Boss MD 14-Jul-2018 22:55:58
== END 2018-07-14 14:33 | disposition home or self-care (01) ==
LOC: ER 10:22
DX: D57.00 Hb-SS disease with crisis, unspecified (principal); R07.9 Chest pain, unspecified; R50.9 Fever, unspecified; Z79.01 Long term (current) use of anticoagulants
CPT/HCPCS: 93005; 36591; 96376; 99284; 96361; 96374; 96375; 36415; 87040; 83615; 85025; 85045; 80053; 87804; 71046; 93010; J1885; J1170; J7030

== ENCOUNTER 2018-09-11 14:16 | Inpatient (IN) | payer MEDICAID ==
--- NOTE | 2018-09-11 15:59 | ER Document Report ---
ED Medical Screen (RME) - General Chief Complaint: Sickle Cell Crisis Stated Complaint: ABDOMINAL PAIN Time Seen by Provider: 09/11/18 15:54 Primary Care Provider: HOMA BARRAZA MD [Primary Care Provider] - Follow up as needed Notes: Patient is a 48-year-old female with sickle cell anemia that presents to the emergency department for chief complaint of chest pain, nausea, vomiting, diarrhea and overall body aches. Patient reports that she does not have any symptoms over the weekend, and seem to get worse so she decided come to the emergency department. ROS: Other than noted above, the 12 point review of systems was reviewed with the patient and were negative, all pertinent findings are included in the HPI. PHYSICAL EXAMINATION: Vital signs reviewed. GENERAL: Well-appearing, well-nourished and in no acute distress, but appears uncomfortable HEAD: Atraumatic, normocephalic. EYES: Pupils equal round extraocular movements intact, conjunctiva are normal. ENT: Nares patent NECK: Normal range of motion CV: Heart regular rate and rhythm LUNGS: No respiratory distress, lungs clear to auscultation Musculoskeletal: Normal range of motion NEUROLOGICAL: Normal speech PSYCH: Normal mood, normal affect. MDM: Patient seen and examined for rapid initial assessment. Vital signs reviewed. A comprehensive ED assessment and evaluation of the patient, analysis of test results and completion of the medical decision making process will be conducted by additional ED providers. *Note is created using voice recognition software and may contain spelling, syntax or grammatical errors. TRAVEL OUTSIDE OF THE [place] IN LAST 30 DAYS: No - Related Data Allergies/Adverse Reactions: doxycycline [Doxycycline] Allergy (Severe, Verified 08/03/18 12:34) Past Medical History - Past Medical History Cardiac Medical History: Reports: Hx Heart Murmur Denies: Hx Atrial Fibrillation, Hx Congestive Heart Failure, Hx Coronary Artery Disease, Hx Heart Attack, Hx Hypercholesterolemia, Hx Hypertension, Hx Peripheral Vascular Disease Pulmonary Medical History: Denies: Hx Tuberculosis Neurological Medical History: Denies: Hx Seizures Renal/ Medical History: Reports: Hx Ovarian Cysts. 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 Denies: Hx HIV Past Surgical History: Reports: Hx Appendectomy, Hx Section, Hx Cholecystectomy, Hx Orthopedic Surgery - R knee, Hx Tonsillectomy. Denies: Hx Bowel Surgery, Hx Coronary Artery Bypass Graft, Hx Gastric Bypass Surgery, Hx Herniorrhaphy, Hx Mastectomy, Hx Pacemaker, Hx Tubal Ligation - Immunizations Immunizations up to date: Yes Hx Diphtheria, Pertussis, Tetanus Vaccination: Yes History of Influenza Vaccine for 03/2017 - 08/2017 Season: No Physical Exam - Vital signs Vitals: Temp Pulse Resp BP Pulse Ox 98.5 F 79 18 104/64 95 09/11/18 14:25 09/11/18 14:25 09/11/18 14:25 09/11/18 14:25 09/11/18 14:25 Course - Vital Signs Vital signs: Temp Pulse Resp BP Pulse Ox 98.5 F 79 18 104/64 95 09/11/18 14:25 09/11/18 14:25 09/11/18 14:25 09/11/18 14:25 09/11/18 14:25 Doctor's Discharge - Discharge Referrals: HOMA BARRAZA MD [Primary Care Provider] - Follow up as needed
[2018-09-11] MEDS ORDERED: NORMAL SALINE 1000 ML 1,000 ML IV ONE (16:01)
[2018-09-11] MEDS ORDERED: ONDANSETRON HCL INJ/PF 4 MG/2 ML SDV IV ONE (16:01)
[2018-09-11] MEDS ORDERED: HYDROMORPHONE HCL INJ/PF 2 MG/ML AMPULE IV ONE (16:01)
--- NOTE | 2018-09-11 16:43 | RADIOLOGY REPORT (SQ) ---
EXAM DESCRIPTION: CHEST 2 VIEWS COMPLETED DATE/TIME: 09/11/2018 4:34 pm REASON FOR STUDY: chest pain, sickle cell COMPARISON: 08/03/2018. EXAM PARAMETERS: NUMBER OF VIEWS: two views TECHNIQUE: Digital Frontal and Lateral radiographic views of the chest acquired. RADIATION DOSE: NA LIMITATIONS: none FINDINGS: LUNGS AND PLEURA: No opacities, masses or pneumothorax. No pleural effusion. MEDIASTINUM AND HILAR STRUCTURES: No masses or contour abnormalities. HEART AND VASCULAR STRUCTURES: Heart normal size. No evidence for failure. BONES: No acute findings. HARDWARE: Vascular port. OTHER: No other significant finding. IMPRESSION: NO ACUTE RADIOGRAPHIC FINDING IN THE CHEST. TECHNICAL DOCUMENTATION: JOB ID: [id number] [employer]- All Rights Reserved Reading location - IP/workstation name: [email or web address]
[2018-09-11 17:46] LABS: ABSOLUTE RETICS # 0.107 10^6/uL (0.028-0.122); HEMOGLOBIN 9.5 g/dL (12.0-15.5); MEAN CORPUSCULAR HEMOGLOBIN 41.8 pg (27.0-33.4); MEAN CORPUSCULAR HGB CONC 35.3 g/dL (32.0-36.0); PLATELET COUNT 218 10^3/uL (150-450); RED BLOOD COUNT 2.28 10^6/uL (3.72-5.28); RED CELL DISTRIBUTION WIDTH 32.3 % (11.5-14.0); RETICULOCYTE COUNT (AUTO) 4.72 % (0.66-2.85); WHITE BLOOD COUNT 6.4 10^3/uL (4.0-10.5)
[2018-09-11 17:59] LABS: ALANINE AMINOTRANSFERASE 45 U/L (9-52); ALKALINE PHOSPHATASE 167 U/L (38-126); ANION GAP 13 (5-19); ASPARTATE AMINO TRANSFERASE 56 U/L (14-36); BILIRUBIN,DIRECT 0.7 mg/dL (0.0-0.4); BILIRUBIN,TOTAL 3.5 mg/dL (0.2-1.3); BLOOD UREA NITROGEN 8 mg/dL (7-20); CALCIUM 10.1 mg/dL (8.4-10.2); CARBON DIOXIDE 20 mmol/L (22-30); CHLORIDE 107 mmol/L (98-107); GLUCOSE 102 mg/dL (75-110); LIPASE 89.2 U/L (23-300); POTASSIUM 4.5 mmol/L (3.6-5.0); SODIUM 139.9 mmol/L (137-145); TOTAL PROTEIN 9.2 g/dL (6.3-8.2)
[2018-09-11 18:00] LABS: MEAN CORPUSCULAR VOLUME 119 fl (80-97)
[2018-09-11 18:28] LABS: ABSOLUTE LYMPHOCYTES# (MANUAL) 2.4 10^3/uL (0.5-4.7); ABSOLUTE NEUTROPHILS# (MANUAL) 3.8 10^3/uL (1.7-8.2); ANISOCYTOSIS 3+; BASOPHILS % (MANUAL) 1 % (0-2); EOSINOPHILS % (MANUAL) 2 % (0-6); HYPOCHROMASIA 3+; LYMPHOCYTES % (MANUAL) 37 % (13-45); MONOCYTES % (MANUAL) 0 % (3-13); POIKILOCYTOSIS 1+; POLYCHROMASIA 2+; SCHISTOCYTES SLIGHT; SEGMENTED NEUTROPHILS % (MAN) 60 % (42-78); TARGET CELLS 2+; TOTAL CELLS COUNTED 100
[2018-09-11 18:29] LABS: NUCLEATED RED BLOOD CELLS 31 /100 WBC (0)
[2018-09-11 18:30] LABS: PLATELET COMMENT ADEQUATE
[2018-09-11] MEDS: HYDROMORPHONE HCL INJ/PF 2 MG/ML AMPULE IV PRN ×2 (21:15→22:37)
--- NOTE | 2018-09-11 21:22 | ER Document Report ---
ED General - General Chief Complaint: Sickle Cell Crisis Stated Complaint: ABDOMINAL PAIN Time Seen by Provider: 09/11/18 15:54 Primary Care Provider: HOMA BARRAZA MD [Primary Care Provider] - Follow up as needed Notes: Patient is a 48-year-old female with a past medical history of sickle cell anemia, presents with nausea, vomiting, diarrhea and bilateral lower extremity pain. Patient states that symptoms have been ongoing for the past 72 hours, have not been improving despite use of oxycodone. She states this prompted her to come to the emergency department for assessment. States this feels very toi lar to pain crisis that she has had in the past. The pain in the bilateral lower extremities is described as being the entirety of both legs and has a severe, throbbing, constant, spasming pain. Nothing seems to trigger the pain. Oxycodone does not help. She has not seen her primary doctor today regarding today's concerns. Denies fever. Has been able to tolerate oral intake in between episodes of vomiting. She denies any focal abdominal pain, does states she developed some generalized abdominal cramping prior to episodes of vomiting or diarrhea but denies any abdominal pain at the time of my assessment. TRAVEL OUTSIDE OF THE [place] IN LAST 30 DAYS: No - Related Data Allergies/Adverse Reactions: doxycycline [Doxycycline] Allergy (Severe, Verified 08/03/18 12:34) Past Medical History - General Information source: Patient - Social History Smoking Status: Never Smoker Frequency of alcohol use: None Drug Abuse: None Lives with: Family Family History: Reviewed & Not Pertinent Patient has suicidal ideation: No Patient has homicidal ideation: No - Past Medical History Cardiac Medical History: Reports: Hx Heart Murmur Denies: Hx Atrial Fibrillation, Hx Congestive Heart Failure, Hx Coronary Artery Disease, Hx Heart Attack, Hx Hypercholesterolemia, Hx Hypertension, Hx Peripheral Vascular Disease Pulmonary Medical History: Denies: Hx Tuberculosis Neurological Medical History: Denies: Hx Seizures Renal/ Medical History: Reports: Hx Ovarian Cysts. 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 Denies: Hx HIV Past Surgical History: Reports: Hx Appendectomy, Hx Section, Hx Chol ecystectomy, Hx Orthopedic Surgery - R knee, Hx Tonsillectomy. Denies: Hx Bowel Surgery, Hx Coronary Artery Bypass Graft, Hx Gastric Bypass Surgery, Hx Herniorrhaphy, Hx Mastectomy, Hx Pacemaker, Hx Tubal Ligation - Immunizations Immunizations up to date: Yes Hx Diphtheria, Pertussis, Tetanus Vaccination: Yes Hx Pneumococcal Vaccination: 03/20/14 Review of Systems - Review of Systems Notes: Constitutional: Negative for fever. HENT: Negative for sore throat. Eyes: Negative for visual changes. Cardiovascular: Negative for chest pain. Respiratory: Negative for shortness of breath. Gastrointestinal: Positive for abdominal cramping, vomiting and diarrhea Genitourinary: Negative for dysuria. Musculoskeletal: Positive for bilateral lower extremity pain Skin: Negative for rash. Neurological: Negative for headaches, weakness or numbness. 10 point ROS negative except as marked above and in HPI. Physical Exam - Vital signs Vitals: Temp Pulse Resp BP Pulse Ox 98.5 F 79 18 104/64 95 09/11/18 14:25 09/11/18 14:25 09/11/18 14:25 09/11/18 14:25 09/11/18 14:25 Interpretation: Normal Notes: PHYSICAL EXAMINATION: GENERAL: Appears moderately uncomfortable but in no acute distress HEAD: Atraumatic, normocephalic. EYES: Pupils equal round and reactive to light, extraocular movements intact, s clera anicteric, conjunctiva are normal. ENT: nares patent, oropharynx clear without exudates. Moderately dry mucous membranes. NECK: Normal range of motion, supple without lymphadenopathy LUNGS: Breath sounds clear to auscultation bilaterally and equal. No wheezes rales or rhonchi. HEART: Regular rate and rhythm without murmurs ABDOMEN: Soft, nontender, normoactive bowel sounds. No guarding, no rebound. No masses appreciated. EXTREMITIES: Normal range of motion, no pitting or edema. No cyanosis. NEUROLOGICAL: No focal neurological deficits. Moves all extremities spontaneously and on command. PSYCH: Normal mood, normal affect. SKIN: Warm, Dry, normal turgor, no rashes or lesions noted. Course - Re-evaluation Re-evalutation: 09/11/18 21:21 Presentation is most consistent with an uncomplicated sickle cell pain crisis. Patient has had associated nausea, vomiting and diarrhea which she states is normal for her pain crises. Patient has no evidence of an aplastic crisis on labs. Chest x-ray and vitals are not consistent with acute chest syndrome. Vitals have remained within normal limits here in the emergency department. Patient however has not had successful pain control here in the ED, is requesting hospitalizastion. - Vital Signs Vital signs: Temp Pulse Resp BP Pulse Ox 98.5 F 73 20 111/59 L 98 09/11/18 22:15 09/11/18 22:15 09/11/18 22:15 09/11/18 22:15 09/11/18 22:15 - Laboratory Result Diagrams: 09/11/18 17:25 09/11/18 17:25 Laboratory results interpreted by me: 09/11/18 09/11/18 17:25 17:25 RBC 2.28 L Hgb 9.5 L Hct 27.0 L MCV 119 H D MCH 41.8 H RDW 32.3 H Monocytes % (Manual) 0 L Abs Monocytes (Manual) 0.0 L Retic Count (auto) 4.72 H Carbon Dioxide 20 L Total Bilirubin 3.5 H Direct Bilirubin 0.7 H AST 56 H Alkaline Phosphatase 167 H Total Protein 9.2 H - Diagnostic Test Radiology reviewed: Image reviewed, Reports reviewed Radiology results interpreted by me: 09/11/18 21:21 Chest x-ray: No acute infiltrate or pneumothorax - EKG Interpretation by Me Additional EKG results interpreted by me: 09/12/18 02:24 Sinus rhythm, rate 79. No ST elevations or depressions. QTC is 445. Discharge - Discharge Clinical Impression: Nausea vomiting and diarrhea, Sickle cell pain crisis Condition: Fair Disposition: ADMITTED INPATIENT Admitting Provider: Da Unit Admitted: Medical Floor Referrals: HOMA BARRAZA MD [Primary Care Provider] - Follow up as needed
--- NOTE | 2018-09-11 21:24 | EKG REPORT ---
SEVERITY:- NORMAL ECG - SINUS RHYTHM : Confirmed by: No Boss MD 11-Sep-2018 21:22:20
[2018-09-12] MEDS: HYDROMORPHONE HCL INJ/PF 2 MG/ML AMPULE IV PRN ×7 (00:57→22:55)
[2018-09-12] MEDS ORDERED: HYDROMORPHONE HCL INJ/PF 2 MG/ML AMPULE IV PRN (03:34)
[2018-09-12] MEDS: NORMAL SALINE 1000 ML 1,000 ML IV PRN ×2 (06:08→17:42)
--- NOTE | 2018-09-12 21:49 | PDOC H&P ---
History of Present Illness Admission Date/PCP: 09/12/18 02:32 HOMA BARRAZA MD History of Present Illness: WILLIE ALAN is a 48 year old female, She to the emergency room for ev aluation of pain of the extremities, generalized body pain she has sickle cell disease. 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 Past Surgical History Past Surgical History: Reports: Appendectomy, Section, Cholecystectomy, Orthopedic Surgery - R knee, Tonsillectomy Social History Lives with: Family Smoking Status: Never Smoker Frequency of Alcohol Use: None Hx Recreational Drug Use: No Drugs: None Hx Prescription Drug Abuse: No - Advance Directive Resuscitation Status: Full Code Family History Family History: Reviewed & Not Pertinent Parental Family History Reviewed: Yes Children Family History Reviewed: Yes Sibling(s) Family History Reviewed.: Yes Medication/Allergy Home Medications: Epoetin Federico [Procrit Inj 20,000 Unit/1 ml Vial (Renal)] 20,000 unit SQ FR 08/03/18 Epoetin Federico [Procrit Inj 40,000 Unit/1 ml Vial (Renal)] 40,000 unit SQ FR 08/03/18 Folic Acid [Folvite 1 mg Tablet] 1 mg PO DAILY 08/03/18 Gabapentin [Neurontin 300 mg Capsule] 300 mg PO Q12 08/03/18 Hydroxyurea [Hydrea 500 mg Capsule] 500 mg PO TID 08/03/18 Multivitamin [Multiple Vitamins] 1 tab PO DAILY 08/03/18 Oxycodone HCl [Oxycontin Sr 40 mg Tablet] 40 mg PO Q12 08/03/18 Promethazine HCl [Phenergan 25 mg Tablet] 25 mg PO Q6HP PRN 08/03/18 Rivaroxaban [Xarelto] 20 mg PO QPM 08/03/18 Allergies/Adverse Reactions: doxycycline [Doxycycline] Allergy (Severe, Verified 08/03/18 12:34) Review of Systems Constitutional: PRESENT: headache(s) Respiratory: ABSENT: as per HPI, cough, dyspnea, hemoptysis, sputum, other Gastrointestinal: PRESENT: abdominal pain Genitourinary: ABSENT: as per HPI, difficulty urinating, dysuria, hematuria, nocturia, other Musculoskeletal: PRESENT: back pain, joint swelling Neurological: PRESENT: abnormal gait Physical Exam Vital Signs: Temp Pulse Resp BP Pulse Ox 99.5 F 83 16 101/67 97 09/12/18 19:13 09/12/18 19:13 09/12/18 19:13 09/12/18 19:13 09/12/18 19:13 Intake & Output 09/11/18 09/12/18 09/13/18 06:59 06:59 06:59 Intake Total 1000 1708 Output Total 5 Balance 1000 1703 Weight 61 kg Head exam: PRESENT: atraumatic, normocephalic Eye exam: PRESENT: conjunctiva pink, EOMI, PERRLA Ear exam: PRESENT: normal external ear exam Mouth exam: PRESENT: moist, tongue midline Neck exam: PRESENT: full ROM Respiratory exam: PRESENT: clear to auscultation carolyn Cardiovascular exam: PRESENT: RRR, +S1, +S2 Vascular exam: PRESENT: normal capillary refill GI/Abdominal exam: PRESENT: normal bowel sounds, soft Rectal exam: PRESENT: deferred Neurological exam: PRESENT: alert, CN II-XII grossly intact Psychiatric exam: PRESENT: appropriate affect, normal mood Skin exam: PRESENT: dry, intact, warm Results Laboratory Results: 09/11/18 17:25 09/11/18 17:25 09/11/18 17:25 Troponin I < 0.012 Impressions: Chest X-Ray 09/11/18 16:00 IMPRESSION: NO ACUTE RADIOGRAPHIC FINDING IN THE CHEST. Assessment & Plan - Diagnosis (1) Sickle-cell disease with vaso-occlusive pain Is this a current diagnosis for this admission?: Yes
[2018-09-12] MEDS ORDERED: RIVAROXABAN 10 MG TABLET PO ONE (22:30)
[2018-09-12] MEDS: GABAPENTIN 300 MG CAPSULE PO SCH (22:44)
[2018-09-12] MEDS: MULTIVITAMIN TABLET PO SCH (22:45)
[2018-09-12] MEDS ORDERED: HYDROXYUREA 500 MG CAPSULE PO ONE (23:00)
[2018-09-13] MEDS: PROMETHAZINE HCL 25 MG TABLET PO PRN ×3 (02:23→22:58)
[2018-09-13] MEDS: HYDROMORPHONE HCL INJ/PF 2 MG/ML AMPULE IV PRN ×6 (02:59→22:57)
[2018-09-13] MEDS: NORMAL SALINE 1000 ML 1,000 ML IV PRN ×3 (03:00→23:00)
[2018-09-13] MEDS: GABAPENTIN 300 MG CAPSULE PO SCH ×2 (10:14→22:57)
[2018-09-13] MEDS: FOLIC ACID 1 MG TABLET PO SCH (10:14)
[2018-09-13] MEDS: MULTIVITAMIN TABLET PO SCH (10:14)
[2018-09-13] MEDS: HYDROXYUREA 500 MG CAPSULE PO SCH ×3 (10:15→17:11)
--- NOTE | 2018-09-13 16:53 | PDOC PROGRESS REPORT ---
Subjective Progress Note for:: 09/13/18 Subjective:: Patient seen by the bedside, she continues to complain of pain Reason For Visit: NAUSEA,VOMITING,DIARRHEA,SICKLE CELL PAIN CRISIS Physical Exam Vital Signs: Temp Pulse Resp BP Pulse Ox 99.0 F 77 16 97/61 L 94 09/13/18 08:06 09/13/18 08:06 09/13/18 08:06 09/13/18 08:06 09/13/18 08:06 Intake & Output 09/12/18 09/13/18 09/14/18 06:59 06:59 06:59 Intake Total 1000 2638 1000 Output Total 5 Balance 1000 2633 1000 Weight 61 kg 61 kg Eye exam: PRESENT: PERRLA Mouth exam: PRESENT: moist, tongue midline Neck exam: PRESENT: full ROM Respiratory exam: PRESENT: clear to auscultation carolyn Cardiovascular exam: PRESENT: RRR, +S1, +S2 Vascular exam: PRESENT: normal capillary refill GI/Abdominal exam: PRESENT: normal bowel sounds, soft Rectal exam: PRESENT: deferred Neurological exam: PRESENT: alert, CN II-XII grossly intact Psychiatric exam: PRESENT: appropriate affect, normal mood Skin exam: PRESENT: dry, intact, warm Results Laboratory Results: 09/11/18 17:25 09/11/18 17:25 09/11/18 17:25 Troponin I < 0.012 Impressions: Chest X-Ray 09/11/18 16:00 IMPRESSION: NO ACUTE RADIOGRAPHIC FINDING IN THE CHEST. Assessment & Plan - Diagnosis (1) Sickle-cell disease with vaso-occlusive pain Is this a current diagnosis for this admission?: Yes Plan: Continue treatment
[2018-09-13] MEDS: RIVAROXABAN 10 MG TABLET PO SCH (17:11)
[2018-09-13 18:49] LABS: HEMATOCRIT 22.7 % (36.0-47.0); MEAN CORPUSCULAR HEMOGLOBIN 42.1 pg (27.0-33.4); MEAN CORPUSCULAR HGB CONC 35.3 g/dL (32.0-36.0); MEAN CORPUSCULAR VOLUME 119 fl (80-97); PLATELET COUNT 187 10^3/uL (150-450); WHITE BLOOD COUNT 5.3 10^3/uL (4.0-10.5)
[2018-09-13 18:51] LABS: ALANINE AMINOTRANSFERASE 41 U/L (9-52); ALBUMIN 4.1 g/dL (3.5-5.0); ALKALINE PHOSPHATASE 136 U/L (38-126); ANION GAP 8 (5-19); ASPARTATE AMINO TRANSFERASE 53 U/L (14-36); BILIRUBIN,DIRECT 0.1 mg/dL (0.0-0.4); BLOOD UREA NITROGEN 8 mg/dL (7-20); CALCIUM 9.2 mg/dL (8.4-10.2); CARBON DIOXIDE 25 mmol/L (22-30); CHLORIDE 105 mmol/L (98-107); GLUCOSE 110 mg/dL (75-110); POTASSIUM 4.1 mmol/L (3.6-5.0); SODIUM 137.7 mmol/L (137-145); TOTAL PROTEIN 7.6 g/dL (6.3-8.2)
[2018-09-13 19:16] LABS: ABSOLUTE MONOCYTES # (MANUAL) 0.1 10^3/uL (0.1-1.4); BASOPHILS % (MANUAL) 1 % (0-2); EOSINOPHILS % (MANUAL) 3 % (0-6); LYMPHOCYTES % (MANUAL) 56 % (13-45); MONOCYTES % (MANUAL) 2 % (3-13); NUCLEATED RED BLOOD CELLS 4 /100 WBC (0); SEGMENTED NEUTROPHILS % (MAN) 38 % (42-78); TOTAL CELLS COUNTED 100
[2018-09-13 19:19] LABS: ANISOCYTOSIS 4+; OVALOCYTES 1+; POIKILOCYTOSIS 2+; POLYCHROMASIA SLIGHT; TARGET CELLS 1+
[2018-09-13 19:20] LABS: PLATELET COMMENT ADEQUATE
[2018-09-14] MEDS: HYDROMORPHONE HCL INJ/PF 2 MG/ML AMPULE IV PRN ×4 (03:12→19:56)
[2018-09-14 06:55] LABS: MEAN CORPUSCULAR HEMOGLOBIN 42.3 pg (27.0-33.4); MEAN CORPUSCULAR HGB CONC 35.1 g/dL (32.0-36.0); MEAN CORPUSCULAR VOLUME 121 fl (80-97); PLATELET COUNT 187 10^3/uL (150-450); RED BLOOD COUNT 1.74 10^6/uL (3.72-5.28); RED CELL DISTRIBUTION WIDTH 30.6 % (11.5-14.0)
[2018-09-14 07:18] LABS: ABSOLUTE LYMPHOCYTES# (MANUAL) 2.2 10^3/uL (0.5-4.7); ABSOLUTE MONOCYTES # (MANUAL) 0.2 10^3/uL (0.1-1.4); ABSOLUTE NEUTROPHILS# (MANUAL) 2.4 10^3/uL (1.7-8.2); ANISOCYTOSIS 4+; BASOPHILS % (MANUAL) 0 % (0-2); EOSINOPHILS % (MANUAL) 7 % (0-6); HOWELL-JOLLY BODIES PRESENT; LYMPHOCYTES % (MANUAL) 43 % (13-45); MONOCYTES % (MANUAL) 4 % (3-13); NUCLEATED RED BLOOD CELLS 3 /100 WBC (0); OVALOCYTES SLIGHT; PLATELET COMMENT ADEQUATE; POIKILOCYTOSIS 1+; SEGMENTED NEUTROPHILS % (MAN) 46 % (42-78); TARGET CELLS SLIGHT; TEAR DROP CELLS SLIGHT; TOTAL CELLS COUNTED 100
[2018-09-14 07:19] LABS: ALANINE AMINOTRANSFERASE 42 U/L (9-52); ALBUMIN 3.8 g/dL (3.5-5.0); ALKALINE PHOSPHATASE 152 U/L (38-126); ANION GAP 9 (5-19); ASPARTATE AMINO TRANSFERASE 51 U/L (14-36); BILIRUBIN,DIRECT 0.6 mg/dL (0.0-0.4); BILIRUBIN,TOTAL 3.4 mg/dL (0.2-1.3); BLOOD UREA NITROGEN 11 mg/dL (7-20); CALCIUM 9.2 mg/dL (8.4-10.2); CARBON DIOXIDE 22 mmol/L (22-30); CHLORIDE 106 mmol/L (98-107); GLUCOSE 121 mg/dL (75-110); POLYCHROMASIA SLIGHT; POTASSIUM 3.9 mmol/L (3.6-5.0); SODIUM 136.6 mmol/L (137-145); TOTAL PROTEIN 7.2 g/dL (6.3-8.2); WHITE BLOOD COUNT 5.3 10^3/uL (4.0-10.5)
[2018-09-14 07:20] LABS: HEMOGLOBIN 7.4 g/dL (12.0-15.5)
[2018-09-14] MEDS: FOLIC ACID 1 MG TABLET PO SCH (10:08)
[2018-09-14] MEDS: GABAPENTIN 300 MG CAPSULE PO SCH (10:08)
[2018-09-14] MEDS: HYDROXYUREA 500 MG CAPSULE PO SCH ×3 (10:08→17:37)
[2018-09-14] MEDS: MULTIVITAMIN TABLET PO SCH (10:08)
[2018-09-14] MEDS: NORMAL SALINE 1000 ML 1,000 ML IV PRN ×2 (11:09→20:02)
[2018-09-14] MEDS: PROMETHAZINE HCL 25 MG TABLET PO PRN (15:56)
[2018-09-14] MEDS: RIVAROXABAN 10 MG TABLET PO SCH (17:37)
--- NOTE | 2018-09-14 20:20 | PDOC PROGRESS REPORT ---
Subjective Progress Note for:: 09/14/18 Subjective:: Patient was seen by the bedside complain of pain Reason For Visit: NAUSEA,VOMITING,DIARRHEA,SICKLE CELL PAIN CRISIS Physical Exam Vital Signs: Temp Pulse Resp BP Pulse Ox 98.0 F 80 20 97/66 L 100 09/14/18 14:48 09/14/18 14:48 09/14/18 14:48 09/14/18 14:48 09/14/18 14:48 Intake & Output 09/13/18 09/14/18 09/15/18 06:59 06:59 06:59 Intake Total 2638 2293 3145 Output Total 5 Balance 2633 2293 3145 Weight 61 kg 62 kg General appearance: PRESENT: no acute distress Eye exam: PRESENT: PERRLA Respiratory exam: PRESENT: clear to auscultation carolyn Cardiovascular exam: PRESENT: +S1, +S2 GI/Abdominal exam: PRESENT: soft Neurological exam: PRESENT: alert Results Laboratory Results: 09/14/18 05:00 09/14/18 05:00 09/14/18 09/14/18 05:00 05:00 WBC 5.3 RBC 1.74 L Hgb 7.4 L Hct 21.0 L MCV 121 H MCH 42.3 H MCHC 35.1 RDW 30.6 H Plt Count 187 Seg Neutrophils % Not Reportable Lymphocytes % Not Reportable Monocytes % Not Reportable Eosinophils % Not Reportable Basophils % Not Reportable Absolute Neutrophils Not Reportable Absolute Lymphocytes Not Reportable Absolute Monocytes Not Reportable Absolute Eosinophils Not Reportable Absolute Basophils Not Reportable Sodium 136.6 L Potassium 3.9 Chloride 106 Carbon Dioxide 22 Anion Gap 9 BUN 11 Creatinine 0.58 Est GFR ( Amer) > 60 Est GFR (Non-Af Amer) > 60 Glucose 121 H Calcium 9.2 Total Bilirubin 3.4 H AST 51 H ALT 42 Alkaline Phosphatase 152 H Total Protein 7.2 Albumin 3.8 09/11/18 17:25 Troponin I < 0.012 Impressions: Chest X-Ray 09/11/18 16:00 IMPRESSION: NO ACUTE RADIOGRAPHIC FINDING IN THE CHEST. Assessment & Plan - Diagnosis (1) Sickle-cell disease with vaso-occlusive pain Is this a current diagnosis for this admission?: Yes Plan: Continue present treatment
[2018-09-14] MEDS ORDERED: ONDANSETRON 4 MG TAB.RAPDIS PO PRN (21:22)
[2018-09-15] MEDS: HYDROMORPHONE HCL INJ/PF 2 MG/ML AMPULE IV PRN ×6 (00:03→21:14)
[2018-09-15] MEDS: GABAPENTIN 300 MG CAPSULE PO SCH ×3 (00:03→21:17)
[2018-09-15] MEDS: NORMAL SALINE 1000 ML 1,000 ML IV PRN ×3 (04:16→23:25)
[2018-09-15 07:33] LABS: ALANINE AMINOTRANSFERASE 45 U/L (9-52); ALBUMIN 3.5 g/dL (3.5-5.0); ALKALINE PHOSPHATASE 178 U/L (38-126); ANION GAP 10 (5-19); ASPARTATE AMINO TRANSFERASE 54 U/L (14-36); BILIRUBIN,DIRECT 0.8 mg/dL (0.0-0.4); BILIRUBIN,TOTAL 3.1 mg/dL (0.2-1.3); BLOOD UREA NITROGEN 10 mg/dL (7-20); CALCIUM 9.1 mg/dL (8.4-10.2); CARBON DIOXIDE 23 mmol/L (22-30); CHLORIDE 107 mmol/L (98-107); GLUCOSE 108 mg/dL (75-110); POTASSIUM 3.8 mmol/L (3.6-5.0); SODIUM 139.6 mmol/L (137-145); TOTAL PROTEIN 7.2 g/dL (6.3-8.2)
[2018-09-15 07:39] LABS: HEMATOCRIT 19.1 % (36.0-47.0); MEAN CORPUSCULAR HEMOGLOBIN 41.2 pg (27.0-33.4); MEAN CORPUSCULAR HGB CONC 34.5 g/dL (32.0-36.0); MEAN CORPUSCULAR VOLUME 120 fl (80-97); PLATELET COUNT 166 10^3/uL (150-450); RED BLOOD COUNT 1.59 10^6/uL (3.72-5.28); RED CELL DISTRIBUTION WIDTH 29.9 % (11.5-14.0); WHITE BLOOD COUNT 4.5 10^3/uL (4.0-10.5)
[2018-09-15 08:07] LABS: ABSOLUTE NEUTROPHILS# (MANUAL) 2.3 10^3/uL (1.7-8.2); BASOPHILS % (MANUAL) 1 % (0-2); EOSINOPHILS % (MANUAL) 2 % (0-6); LYMPHOCYTES % (MANUAL) 45 % (13-45); MONOCYTES % (MANUAL) 1 % (3-13); NUCLEATED RED BLOOD CELLS 4 /100 WBC (0); SEGMENTED NEUTROPHILS % (MAN) 51 % (42-78); TOTAL CELLS COUNTED 100
[2018-09-15 08:19] LABS: ANISOCYTOSIS 3+; BURR CELLS SLIGHT; HOWELL-JOLLY BODIES PRESENT; OVALOCYTES 1+; PAPPENHEIMER BODIES PRESENT; PLATELET COMMENT ADEQUATE; POIKILOCYTOSIS 1+; POLYCHROMASIA SLIGHT; SCHISTOCYTES 1+; SICKLE RED CELLS SLIGHT; TARGET CELLS SLIGHT
[2018-09-15 08:21] LABS: HEMOGLOBIN 6.6 g/dL (12.0-15.5)
[2018-09-15] MEDS: MULTIVITAMIN TABLET PO SCH (10:14)
[2018-09-15] MEDS: FOLIC ACID 1 MG TABLET PO SCH (10:14)
[2018-09-15] MEDS: HYDROXYUREA 500 MG CAPSULE PO SCH ×3 (10:16→17:44)
[2018-09-15] MEDS: RIVAROXABAN 10 MG TABLET PO SCH (17:43)
[2018-09-15] MEDS: PROMETHAZINE HCL 25 MG TABLET PO PRN (17:48)
[2018-09-15] MEDS: EPOETIN ALFA INJ 40000 UNIT/1 ML (RENAL) SUBCUT SCH (21:16)
[2018-09-15] MEDS: EPOETIN ALFA INJ 20000 UNIT/1 ML VIAL (RENAL) SUBCUT SCH (21:17)
--- NOTE | 2018-09-15 22:01 | PDOC PROGRESS REPORT ---
Subjective Progress Note for:: 09/15/18 Subjective:: Patient seen by the bedside, she continues to complain of pain Reason For Visit: NAUSEA,VOMITING,DIARRHEA,SICKLE CELL PAIN CRISIS Physical Exam Vital Signs: Temp Pulse Resp BP Pulse Ox 99.2 F 88 18 102/62 99 09/15/18 19:28 09/15/18 19:28 09/15/18 19:28 09/15/18 19:28 09/15/18 19:28 Intake & Output 09/14/18 09/15/18 09/16/18 06:59 06:59 06:59 Intake Total 2293 4390 1503 Balance 2293 4390 1503 Weight 62 kg 61.4 kg General appearance: PRESENT: no acute distress Eye exam: PRESENT: PERRLA Respiratory exam: PRESENT: clear to auscultation carolyn Cardiovascular exam: PRESENT: +S1, +S2 GI/Abdominal exam: PRESENT: soft Neurological exam: PRESENT: alert Results Laboratory Results: 09/15/18 05:30 09/15/18 05:30 09/15/18 09/15/18 05:30 05:30 WBC 4.5 RBC 1.59 L Hgb 6.6 L Hct 19.1 L MCV 120 H MCH 41.2 H MCHC 34.5 RDW 29.9 H Plt Count 166 Seg Neutrophils % Not Reportable Lymphocytes % Not Reportable Monocytes % Not Reportable Eosinophils % Not Reportable Basophils % Not Reportable Absolute Neutrophils Not Reportable Absolute Lymphocytes Not Reportable Absolute Monocytes Not Reportable Absolute Eosinophils Not Reportable Absolute Basophils Not Reportable Sodium 139.6 Potassium 3.8 Chloride 107 Carbon Dioxide 23 Anion Gap 10 BUN 10 Creatinine 0.58 Est GFR ( Amer) > 60 Est GFR (Non-Af Amer) > 60 Glucose 108 Calcium 9.1 Total Bilirubin 3.1 H AST 54 H ALT 45 Alkaline Phosphatase 178 H Total Protein 7.2 Albumin 3.5 09/11/18 17:25 Troponin I < 0.012 Impressions: Chest X-Ray 09/11/18 16:00 IMPRESSION: NO ACUTE RADIOGRAPHIC FINDING IN THE CHEST. Assessment & Plan - Diagnosis (1) Sickle-cell disease with vaso-occlusive pain Is this a current diagnosis for this admission?: Yes Plan: Continue present treatment
[2018-09-16] MEDS: HYDROMORPHONE HCL INJ/PF 2 MG/ML AMPULE IV PRN ×6 (01:04→21:06)
[2018-09-16 06:09] LABS: HEMATOCRIT 19.5 % (36.0-47.0); MEAN CORPUSCULAR HEMOGLOBIN 41.8 pg (27.0-33.4); MEAN CORPUSCULAR HGB CONC 35.3 g/dL (32.0-36.0); MEAN CORPUSCULAR VOLUME 118 fl (80-97); PLATELET COUNT 183 10^3/uL (150-450); RED BLOOD COUNT 1.65 10^6/uL (3.72-5.28); RED CELL DISTRIBUTION WIDTH 29.7 % (11.5-14.0); WHITE BLOOD COUNT 4.7 10^3/uL (4.0-10.5)
[2018-09-16 06:15] LABS: HEMOGLOBIN 6.9 g/dL (12.0-15.5)
[2018-09-16 06:19] LABS: ALANINE AMINOTRANSFERASE 48 U/L (9-52); ALBUMIN 3.7 g/dL (3.5-5.0); ALKALINE PHOSPHATASE 179 U/L (38-126); ANION GAP 6 (5-19); ASPARTATE AMINO TRANSFERASE 72 U/L (14-36); BILIRUBIN,DIRECT 0.6 mg/dL (0.0-0.4); BLOOD UREA NITROGEN 8 mg/dL (7-20); CARBON DIOXIDE 23 mmol/L (22-30); CHLORIDE 109 mmol/L (98-107); GLUCOSE 94 mg/dL (75-110); SODIUM 138.4 mmol/L (137-145); TOTAL PROTEIN 6.7 g/dL (6.3-8.2)
[2018-09-16 06:39] LABS: ABSOLUTE LYMPHOCYTES# (MANUAL) 2.5 10^3/uL (0.5-4.7); ABSOLUTE MONOCYTES # (MANUAL) 0.2 10^3/uL (0.1-1.4); BASOPHILS % (MANUAL) 0 % (0-2); EOSINOPHILS % (MANUAL) 0 % (0-6); LYMPHOCYTES % (MANUAL) 53 % (13-45); MONOCYTES % (MANUAL) 4 % (3-13); SEGMENTED NEUTROPHILS % (MAN) 43 % (42-78); TOTAL CELLS COUNTED 100
[2018-09-16 06:40] LABS: POLYCHROMASIA 3+
[2018-09-16 06:41] LABS: ANISOCYTOSIS 4+; BURR CELLS 1+; PLATELET COMMENT ADEQUATE; POIKILOCYTOSIS 3+; SICKLE RED CELLS 1+; TARGET CELLS 1+
[2018-09-16] MEDS: MULTIVITAMIN TABLET PO SCH (09:11)
[2018-09-16] MEDS: GABAPENTIN 300 MG CAPSULE PO SCH ×2 (09:11→21:05)
[2018-09-16] MEDS: HYDROXYUREA 500 MG CAPSULE PO SCH ×3 (09:11→17:04)
[2018-09-16] MEDS: FOLIC ACID 1 MG TABLET PO SCH (09:12)
[2018-09-16] MEDS: NORMAL SALINE 1000 ML 1,000 ML IV PRN ×2 (12:56→17:08)
--- NOTE | 2018-09-16 13:38 | PDOC PROGRESS REPORT ---
Subjective Progress Note for:: 09/16/18 Subjective:: Patient reported nausea but no vomiting. P.O intake limited due to associated nausea. No abdominal pain. No chest pain or difficulty with breathing. Patient reported itchy wound on dorsal aspect of left foot. No fever or chills. Reason For Visit: NAUSEA,VOMITING,DIARRHEA,SICKLE CELL PAIN CRISIS Physical Exam Vital Signs: Temp Pulse Resp BP Pulse Ox 98.0 F 82 18 100/57 L 100 09/16/18 11:49 09/16/18 11:49 09/16/18 11:49 09/16/18 11:49 09/16/18 11:49 Intake & Output 09/15/18 09/16/18 09/17/18 06:59 06:59 06:59 Intake Total 4390 3224 1000 Balance 4390 3224 1000 Weight 61.4 kg 63.3 kg General appearance: PRESENT: no acute distress Head exam: PRESENT: atraumatic, normocephalic Eye exam: PRESENT: conjunctiva pink. ABSENT: scleral icterus Ear exam: PRESENT: normal external ear exam Mouth exam: PRESENT: moist Respiratory exam: PRESENT: clear to auscultation carolyn Cardiovascular exam: PRESENT: RRR. ABSENT: diastolic murmur, rubs, systolic murmur Vascular exam: ABSENT: pallor GI/Abdominal exam: PRESENT: normal bowel sounds, soft. ABSENT: distended, guarding, mass, organolmegaly, rebound, tenderness Extremities exam: ABSENT: pedal edema Neurological exam: PRESENT: alert, awake, oriented to person, oriented to place, oriented to time, oriented to situation, CN II-XII grossly intact. ABSENT: motor sensory deficit Psychiatric exam: PRESENT: appropriate affect, normal mood. ABSENT: homicidal ideation, suicidal ideation Skin exam: PRESENT: dry, warm Results Laboratory Results: 09/16/18 05:00 09/16/18 05:00 09/16/18 09/16/18 05:00 05:00 WBC 4.7 RBC 1.65 L Hgb 6.9 L Hct 19.5 L MCV 118 H MCH 41.8 H MCHC 35.3 RDW 29.7 H Plt Count 183 Seg Neutrophils % Not Reportable Lymphocytes % Not Reportable Monocytes % Not Reportable Eosinophils % Not Reportable Basophils % Not Reportable Absolute Neutrophils Not Reportable Absolute Lymphocytes Not Reportable Absolute Monocytes Not Reportable Absolute Eosinophils Not Reportable Absolute Basophils Not Reportable Sodium 138.4 Potassium 4.0 Chloride 109 H Carbon Dioxide 23 Anion Gap 6 BUN 8 Creatinine 0.55 Est GFR ( Amer) > 60 Est GFR (Non-Af Amer) > 60 Glucose 94 Calcium 9.0 Total Bilirubin 3.0 H AST 72 H ALT 48 Alkaline Phosphatase 179 H Total Protein 6.7 Albumin 3.7 09/11/18 17:25 Troponin I < 0.012 Impressions: Chest X-Ray 09/11/18 16:00 IMPRESSION: NO ACUTE RADIOGRAPHIC FINDING IN THE CHEST. Assessment & Plan - Diagnosis (1) Nausea alone Is this a current diagnosis for this admission?: Yes Plan: D/C oral Zofran. Start on IV Zofran 4 mg [id number] prn for nausea or vomiting. (2) Sickle-cell disease with vaso-occlusive pain Is this a current diagnosis for this admission?: Yes Plan: Continue all current medication management. (3) Cellulitis of left foot Is this a current diagnosis for this admission?: Yes Plan: Start on Bactroban topically to affected areas bid. - Time Time Spent with patient: 25-34 minutes Medications reviewed and adjusted accordingly: Yes Anticipated discharge: Home Within: Other - Inpatient Certification Based on my medical assessment, after consideration of the patient's comorbidities, presenting symptoms, or acuity I expect that the services needed warrant INPATIENT care.: Yes I certify that my determination is in accordance with my understanding of Medicare's requirements for reasonable and necessary INPATIENT services [42 CFR 412.3e].: Yes Medical Necessity: Significant Comorbidiites Make Outpatient Treatment Too Risky, Need Close Monitoring Due to Risk of Patient Decompensation, Need for Pain Control, Risk of Complication if Not Cared For in Hospital, Risk of Diagnosis Which Will Require Inpatient Eval/Care/Monitoring Post Hospital Care: D/C Mental Health Program Specialist Documentation - Plan Summary Plan Summary: Continue current medication management. with necessary adjustment.
[2018-09-16] MEDS: RIVAROXABAN 10 MG TABLET PO SCH (17:04)
[2018-09-16] MEDS: MUPIROCIN 2% OINTMENT 22 GM TP SCH (17:05)
[2018-09-17] MEDS: HYDROMORPHONE HCL INJ/PF 2 MG/ML AMPULE IV PRN ×6 (01:07→21:35)
[2018-09-17] MEDS: PROMETHAZINE HCL 25 MG TABLET PO PRN (01:08)
[2018-09-17] MEDS: NORMAL SALINE 1000 ML 1,000 ML IV PRN ×3 (01:08→20:00)
[2018-09-17 06:08] LABS: HEMATOCRIT 20.1 % (36.0-47.0); MEAN CORPUSCULAR HEMOGLOBIN 42.1 pg (27.0-33.4); MEAN CORPUSCULAR HGB CONC 35.5 g/dL (32.0-36.0); MEAN CORPUSCULAR VOLUME 119 fl (80-97); PLATELET COUNT 189 10^3/uL (150-450); RED BLOOD COUNT 1.69 10^6/uL (3.72-5.28); RED CELL DISTRIBUTION WIDTH 30.1 % (11.5-14.0); WHITE BLOOD COUNT 5.1 10^3/uL (4.0-10.5)
[2018-09-17 06:11] LABS: ALANINE AMINOTRANSFERASE 65 U/L (9-52); ALBUMIN 3.6 g/dL (3.5-5.0); ALKALINE PHOSPHATASE 175 U/L (38-126); ANION GAP 7 (5-19); ASPARTATE AMINO TRANSFERASE 81 U/L (14-36); BILIRUBIN,DIRECT 0.7 mg/dL (0.0-0.4); BILIRUBIN,TOTAL 2.8 mg/dL (0.2-1.3); BLOOD UREA NITROGEN 10 mg/dL (7-20); CARBON DIOXIDE 23 mmol/L (22-30); CHLORIDE 108 mmol/L (98-107); GLUCOSE 109 mg/dL (75-110); POTASSIUM 3.5 mmol/L (3.6-5.0); SODIUM 137.9 mmol/L (137-145); TOTAL PROTEIN 6.8 g/dL (6.3-8.2)
[2018-09-17 06:14] LABS: HEMOGLOBIN 7.1 g/dL (12.0-15.5)
[2018-09-17 06:37] LABS: ABSOLUTE LYMPHOCYTES# (MANUAL) 2.4 10^3/uL (0.5-4.7); ABSOLUTE MONOCYTES # (MANUAL) 0.4 10^3/uL (0.1-1.4); ABSOLUTE NEUTROPHILS# (MANUAL) 2.1 10^3/uL (1.7-8.2); BAND NEUTROPHILS % (MANUAL) 1 % (3-5); BASOPHILS % (MANUAL) 0 % (0-2); EOSINOPHILS % (MANUAL) 3 % (0-6); LYMPHOCYTES % (MANUAL) 46 % (13-45); MONOCYTES % (MANUAL) 8 % (3-13); NUCLEATED RED BLOOD CELLS 1 /100 WBC (0); SEGMENTED NEUTROPHILS % (MAN) 41 % (42-78); TOTAL CELLS COUNTED 100
[2018-09-17 06:39] LABS: PLATELET COMMENT ADEQUATE
[2018-09-17 06:40] LABS: PAPPENHEIMER BODIES PRESENT
[2018-09-17 06:44] LABS: ANISOCYTOSIS 4+; HYPOCHROMASIA 2+
[2018-09-17 06:45] LABS: SCHISTOCYTES SLIGHT; TARGET CELLS 1+
[2018-09-17 06:46] LABS: SICKLE RED CELLS 1+
[2018-09-17] MEDS: MULTIVITAMIN TABLET PO SCH (09:22)
[2018-09-17] MEDS: GABAPENTIN 300 MG CAPSULE PO SCH ×2 (09:22→21:35)
[2018-09-17] MEDS: HYDROXYUREA 500 MG CAPSULE PO SCH ×3 (09:22→17:25)
[2018-09-17] MEDS: FOLIC ACID 1 MG TABLET PO SCH (09:22)
[2018-09-17] MEDS: MUPIROCIN 2% OINTMENT 22 GM TP SCH ×2 (09:22→17:25)
--- NOTE | 2018-09-17 13:11 | PDOC PROGRESS REPORT ---
Subjective Progress Note for:: 09/17/18 Subjective:: Patient reported some improvement in her nausea. No abdominal pain or vomiting. No chest pain or difficulty with breathing. No fever or chills. Reason For Visit: NAUSEA,VOMITING,DIARRHEA,SICKLE CELL PAIN CRISIS Physical Exam Vital Signs: Temp Pulse Resp BP Pulse Ox 99.0 F 88 18 108/55 L 98 09/17/18 07:54 09/17/18 07:54 09/17/18 07:54 09/17/18 07:54 09/17/18 07:54 Intake & Output 09/16/18 09/17/18 09/18/18 06:59 06:59 06:59 Intake Total 3224 4932 833 Balance 3224 4932 833 Weight 63.3 kg 64.8 kg Physical Exam: General appearance: PRESENT: no acute distress Head exam: PRESENT: atraumatic, normocephalic Eye exam: PRESENT: conjunctiva pink. ABSENT: scleral icterus Ear exam: PRESENT: normal external ear exam Mouth exam: PRESENT: moist Respiratory exam: PRESENT: clear to auscultation carolyn Cardiovascular exam: PRESENT: RRR. ABSENT: diastolic murmur, rubs, systolic murmur Vascular exam: ABSENT: pallor GI/Abdominal exam: PRESENT: normal bowel sounds, soft. ABSENT: distended, guarding, mass, organomegaly, rebound, tenderness Extremities exam: ABSENT: pedal edema Neurological exam: PRESENT: alert, awake, oriented to person, oriented to place, oriented to time, oriented to situation, CN II-XII grossly intact. ABSENT: motor sensory deficit Psychiatric exam: PRESENT: appropriate affect, normal mood. ABSENT: homicidal ideation, suicidal ideation Skin exam: PRESENT: dry, warm, lesion on dorsal aspect of right foot. Results Laboratory Results: 09/17/18 05:20 09/17/18 05:20 09/17/18 09/17/18 05:20 05:20 WBC 5.1 RBC 1.69 L Hgb 7.1 L Hct 20.1 L MCV 119 H MCH 42.1 H MCHC 35.5 RDW 30.1 H Plt Count 189 Seg Neutrophils % Not Reportable Lymphocytes % Not Reportable Monocytes % Not Reportable Eosinophils % Not Reportable Basophils % Not Reportable Absolute Neutrophils Not Reportable Absolute Lymphocytes Not Reportable Absolute Monocytes Not Reportable Absolute Eosinophils Not Reportable Absolute Basophils Not Reportable Sodium 137.9 Potassium 3.5 L Chloride 108 H Carbon Dioxide 23 Anion Gap 7 BUN 10 Creatinine 0.57 Est GFR ( Amer) > 60 Est GFR (Non-Af Amer) > 60 Glucose 109 Calcium 9.0 Total Bilirubin 2.8 H AST 81 H ALT 65 H Alkaline Phosphatase 175 H Total Protein 6.8 Albumin 3.6 09/11/18 17:25 Troponin I < 0.012 Impressions: Chest X-Ray 09/11/18 16:00 IMPRESSION: NO ACUTE RADIOGRAPHIC FINDING IN THE CHEST. Assessment & Plan - Diagnosis (1) Nausea alone Is this a current diagnosis for this admission?: Yes (2) Sickle-cell disease with vaso-occlusive pain Is this a current diagnosis for this admission?: Yes (3) Cellulitis of left foot Is this a current diagnosis for this admission?: Yes - Time Time Spent with patient: 25-34 minutes Medications reviewed and adjusted accordingly: Yes Anticipated discharge: Home Within: Other - Inpatient Certification Based on my medical assessment, after consideration of the patient's comorbidities, presenting symptoms, or acuity I expect that the services needed warrant INPATIENT care.: Yes I certify that my determination is in accordance with my understanding of Medicare's requirements for reasonable and necessary INPATIENT services [42 CFR 412.3e].: Yes Medical Necessity: Significant Comorbidiites Make Outpatient Treatment Too Risky, Need Close Monitoring Due to Risk of Patient Decompensation, Need For IV Fluids, Need for Pain Control, Risk of Complication if Not Cared For in Hospital, Risk of Diagnosis Which Will Require Inpatient Eval/Care/Monitoring Post Hospital Care: D/C Process Design Chemical Engineer Documentation - Plan Summary Plan Summary: Continue current medication management.
[2018-09-17] MEDS: ONDANSETRON HCL INJ/PF 4 MG/2 ML SDV IV PRN ×2 (13:23→17:27)
[2018-09-17] MEDS: RIVAROXABAN 10 MG TABLET PO SCH (17:25)
[2018-09-18] MEDS: HYDROMORPHONE HCL INJ/PF 2 MG/ML AMPULE IV PRN ×6 (01:38→21:49)
[2018-09-18] MEDS: PROMETHAZINE HCL 25 MG TABLET PO PRN (01:38)
[2018-09-18] MEDS: ONDANSETRON HCL INJ/PF 4 MG/2 ML SDV IV PRN ×4 (05:47→17:42)
[2018-09-18] MEDS: NORMAL SALINE 1000 ML 1,000 ML IV PRN ×2 (05:57→13:49)
[2018-09-18 06:29] LABS: HEMATOCRIT 19.4 % (36.0-47.0); MEAN CORPUSCULAR HEMOGLOBIN 42.3 pg (27.0-33.4); MEAN CORPUSCULAR HGB CONC 35.8 g/dL (32.0-36.0); MEAN CORPUSCULAR VOLUME 118 fl (80-97); PLATELET COUNT 200 10^3/uL (150-450); RED BLOOD COUNT 1.64 10^6/uL (3.72-5.28); RED CELL DISTRIBUTION WIDTH 30.3 % (11.5-14.0); WHITE BLOOD COUNT 4.4 10^3/uL (4.0-10.5)
[2018-09-18 06:33] LABS: HEMOGLOBIN 6.9 g/dL (12.0-15.5)
[2018-09-18 06:36] LABS: ALANINE AMINOTRANSFERASE 80 U/L (9-52); ALBUMIN 3.6 g/dL (3.5-5.0); ALKALINE PHOSPHATASE 156 U/L (38-126); ANION GAP 8 (5-19); ASPARTATE AMINO TRANSFERASE 88 U/L (14-36); BILIRUBIN,DIRECT 0.7 mg/dL (0.0-0.4); BILIRUBIN,TOTAL 3.3 mg/dL (0.2-1.3); BLOOD UREA NITROGEN 11 mg/dL (7-20); CALCIUM 8.7 mg/dL (8.4-10.2); CARBON DIOXIDE 24 mmol/L (22-30); CHLORIDE 106 mmol/L (98-107); GLUCOSE 108 mg/dL (75-110); SODIUM 137.5 mmol/L (137-145); TOTAL PROTEIN 6.4 g/dL (6.3-8.2)
[2018-09-18 07:09] LABS: ABSOLUTE LYMPHOCYTES# (MANUAL) 1.8 10^3/uL (0.5-4.7); ABSOLUTE MONOCYTES # (MANUAL) 0.4 10^3/uL (0.1-1.4); ABSOLUTE NEUTROPHILS# (MANUAL) 1.8 10^3/uL (1.7-8.2); BASOPHILS % (MANUAL) 0 % (0-2); EOSINOPHILS % (MANUAL) 6 % (0-6); LYMPHOCYTES % (MANUAL) 41 % (13-45); MONOCYTES % (MANUAL) 10 % (3-13); NUCLEATED RED BLOOD CELLS 12 /100 WBC (0); SEGMENTED NEUTROPHILS % (MAN) 42 % (42-78); TOTAL CELLS COUNTED 100
[2018-09-18 07:13] LABS: TOXIC VACUOLATION PRESENT
[2018-09-18 07:16] LABS: ANISOCYTOSIS 3+; HOWELL-JOLLY BODIES PRESENT; TARGET CELLS 2+
[2018-09-18 07:17] LABS: POLYCHROMASIA 2+
[2018-09-18 07:18] LABS: HELMET CELLS SLIGHT; SCHISTOCYTES SLIGHT
[2018-09-18 07:19] LABS: HYPOCHROMASIA SLIGHT
[2018-09-18 07:20] LABS: PLATELET COMMENT ADEQUATE
[2018-09-18 07:21] LABS: SICKLE RED CELLS 1+
[2018-09-18] MEDS: MUPIROCIN 2% OINTMENT 22 GM TP SCH ×2 (09:35→17:42)
[2018-09-18] MEDS: MULTIVITAMIN TABLET PO SCH (09:35)
[2018-09-18] MEDS: GABAPENTIN 300 MG CAPSULE PO SCH ×2 (09:35→21:04)
[2018-09-18] MEDS: HYDROXYUREA 500 MG CAPSULE PO SCH ×3 (09:35→17:41)
[2018-09-18] MEDS: FOLIC ACID 1 MG TABLET PO SCH (09:35)
[2018-09-18] MEDS ORDERED: DIPHENHYDRAMINE HCL 25 MG CAPSULE PO PRN (17:18)
[2018-09-18] MEDS: RIVAROXABAN 10 MG TABLET PO SCH (17:42)
--- NOTE | 2018-09-18 19:01 | PDOC PROGRESS REPORT ---
Subjective Progress Note for:: 09/18/18 Subjective:: Patient continues to have pain affecting extremities, she continues to require pain medication, she is asking for Benadryl Reason For Visit: NAUSEA,VOMITING,DIARRHEA,SICKLE CELL PAIN CRISIS Physical Exam Vital Signs: Temp Pulse Resp BP Pulse Ox 98.6 F 84 16 95/52 L 99 09/18/18 15:52 09/18/18 15:52 09/18/18 15:52 09/18/18 15:52 09/18/18 16:45 Intake & Output 09/17/18 09/18/18 09/19/18 06:59 06:59 06:59 Intake Total 4932 2813 2119 Balance 4932 2813 2119 Weight 64.8 kg General appearance: PRESENT: no acute distress Eye exam: PRESENT: PERRLA Respiratory exam: PRESENT: clear to auscultation carolyn Cardiovascular exam: PRESENT: +S1, +S2 GI/Abdominal exam: PRESENT: soft Neurological exam: PRESENT: alert Results Laboratory Results: 09/18/18 05:40 09/18/18 05:40 09/18/18 09/18/18 05:40 05:40 WBC 4.4 RBC 1.64 L Hgb 6.9 L Hct 19.4 L MCV 118 H MCH 42.3 H MCHC 35.8 RDW 30.3 H Plt Count 200 Seg Neutrophils % Not Reportable Lymphocytes % Not Reportable Monocytes % Not Reportable Eosinophils % Not Reportable Basophils % Not Reportable Absolute Neutrophils Not Reportable Absolute Lymphocytes Not Reportable Absolute Monocytes Not Reportable Absolute Eosinophils Not Reportable Absolute Basophils Not Reportable Sodium 137.5 Potassium 4.0 Chloride 106 Carbon Dioxide 24 Anion Gap 8 BUN 11 Creatinine 0.59 Est GFR ( Amer) > 60 Est GFR (Non-Af Amer) > 60 Glucose 108 Calcium 8.7 Total Bilirubin 3.3 H AST 88 H ALT 80 H Alkaline Phosphatase 156 H Total Protein 6.4 Albumin 3.6 09/11/18 17:25 Troponin I < 0.012 Impressions: Chest X-Ray 09/11/18 16:00 IMPRESSION: NO ACUTE RADIOGRAPHIC FINDING IN THE CHEST. Assessment & Plan - Diagnosis (1) Sickle-cell disease with vaso-occlusive pain Is this a current diagnosis for this admission?: Yes Plan: Continue treatment
[2018-09-18] MEDS: KETOROLAC TROMETHAMINE INJ/PF 30 MG/1 ML SDV IV SCH (21:04)
[2018-09-19] MEDS: KETOROLAC TROMETHAMINE INJ/PF 30 MG/1 ML SDV IV SCH ×3 (01:12→10:23)
[2018-09-19] MEDS: NORMAL SALINE 1000 ML 1,000 ML IV PRN ×3 (01:12→22:27)
[2018-09-19] MEDS: PROMETHAZINE HCL 25 MG TABLET PO PRN ×2 (01:50→22:24)
[2018-09-19] MEDS: HYDROMORPHONE HCL INJ/PF 2 MG/ML AMPULE IV PRN ×2 (01:50→22:22)
[2018-09-19 06:54] LABS: ALANINE AMINOTRANSFERASE 95 U/L (9-52); ALBUMIN 3.2 g/dL (3.5-5.0); ALKALINE PHOSPHATASE 173 U/L (38-126); ANION GAP 6 (5-19); ASPARTATE AMINO TRANSFERASE 108 U/L (14-36); BILIRUBIN,TOTAL 2.9 mg/dL (0.2-1.3); BLOOD UREA NITROGEN 10 mg/dL (7-20); CALCIUM 8.6 mg/dL (8.4-10.2); CARBON DIOXIDE 25 mmol/L (22-30); CHLORIDE 109 mmol/L (98-107); GLUCOSE 101 mg/dL (75-110); POTASSIUM 3.8 mmol/L (3.6-5.0); SODIUM 139.6 mmol/L (137-145); TOTAL PROTEIN 6.3 g/dL (6.3-8.2)
[2018-09-19 06:55] LABS: HEMATOCRIT 18.5 % (36.0-47.0); MEAN CORPUSCULAR HEMOGLOBIN 42.6 pg (27.0-33.4); MEAN CORPUSCULAR HGB CONC 35.4 g/dL (32.0-36.0); MEAN CORPUSCULAR VOLUME 120 fl (80-97); PLATELET COUNT 209 10^3/uL (150-450); RED BLOOD COUNT 1.54 10^6/uL (3.72-5.28); RED CELL DISTRIBUTION WIDTH 30.8 % (11.5-14.0); WHITE BLOOD COUNT 4.2 10^3/uL (4.0-10.5)
[2018-09-19 07:20] LABS: HEMOGLOBIN 6.6 g/dL (12.0-15.5)
[2018-09-19 07:25] LABS: ABSOLUTE LYMPHOCYTES# (MANUAL) 2.1 10^3/uL (0.5-4.7); ABSOLUTE MONOCYTES # (MANUAL) 0.2 10^3/uL (0.1-1.4); ABSOLUTE NEUTROPHILS# (MANUAL) 1.6 10^3/uL (1.7-8.2); BASOPHILS % (MANUAL) 0 % (0-2); EOSINOPHILS % (MANUAL) 8 % (0-6); LYMPHOCYTES % (MANUAL) 49 % (13-45); MONOCYTES % (MANUAL) 5 % (3-13); NUCLEATED RED BLOOD CELLS 9 /100 WBC (0); SEGMENTED NEUTROPHILS % (MAN) 38 % (42-78); TOTAL CELLS COUNTED 100
[2018-09-19 07:27] LABS: ANISOCYTOSIS 4+; TOXIC GRANULATION 1+
[2018-09-19 07:28] LABS: HELMET CELLS 1+; OVALOCYTES 2+; PLATELET COMMENT ADEQUATE; POIKILOCYTOSIS 3+; SCHISTOCYTES 1+; TARGET CELLS SLIGHT; TEAR DROP CELLS 1+
[2018-09-19] MEDS: MULTIVITAMIN TABLET PO SCH (10:22)
[2018-09-19] MEDS: MUPIROCIN 2% OINTMENT 22 GM TP SCH ×2 (10:22→18:35)
[2018-09-19] MEDS: FOLIC ACID 1 MG TABLET PO SCH (10:22)
[2018-09-19] MEDS: GABAPENTIN 300 MG CAPSULE PO SCH ×2 (10:22→22:24)
[2018-09-19] MEDS: HYDROXYUREA 500 MG CAPSULE PO SCH ×3 (10:23→18:38)
[2018-09-19] MEDS ORDERED: HYDROMORPHONE HCL INJ/PF 2 MG/ML AMPULE IV PRN ×2 (13:31→18:29)
[2018-09-19] MEDS: RIVAROXABAN 10 MG TABLET PO SCH (18:36)
[2018-09-19] MEDS: DIPHENHYDRAMINE HCL 50 MG/ML VIAL IV PRN (18:36)
--- NOTE | 2018-09-19 19:33 | PDOC PROGRESS REPORT ---
Subjective Progress Note for:: 09/19/18 Subjective:: Patient seen by the bedside,she continues to complain of pain Reason For Visit: NAUSEA,VOMITING,DIARRHEA,SICKLE CELL PAIN CRISIS Physical Exam Vital Signs: Temp Pulse Resp BP Pulse Ox 99.8 F 86 18 111/61 100 09/19/18 16:00 09/19/18 16:00 09/19/18 16:00 09/19/18 16:00 09/19/18 16:00 Intake & Output 09/18/18 09/19/18 09/20/18 06:59 06:59 06:59 Intake Total 2813 3499 1640 Balance 2813 3499 1640 Weight 64.3 kg General appearance: PRESENT: no acute distress Eye exam: PRESENT: PERRLA Respiratory exam: PRESENT: clear to auscultation carolyn Cardiovascular exam: PRESENT: +S1, +S2 GI/Abdominal exam: PRESENT: soft Neurological exam: PRESENT: alert Results Laboratory Results: 09/19/18 06:25 09/19/18 06:25 09/19/18 09/19/18 06:25 06:25 WBC 4.2 RBC 1.54 L Hgb 6.6 L Hct 18.5 L MCV 120 H MCH 42.6 H MCHC 35.4 RDW 30.8 H Plt Count 209 Seg Neutrophils % Not Reportable Lymphocytes % Not Reportable Monocytes % Not Reportable Eosinophils % Not Reportable Basophils % Not Reportable Absolute Neutrophils Not Reportable Absolute Lymphocytes Not Reportable Absolute Monocytes Not Reportable Absolute Eosinophils Not Reportable Absolute Basophils Not Reportable Sodium 139.6 Potassium 3.8 Chloride 109 H Carbon Dioxide 25 Anion Gap 6 BUN 10 Creatinine 0.67 Est GFR ( Amer) > 60 Est GFR (Non-Af Amer) > 60 Glucose 101 Calcium 8.6 Total Bilirubin 2.9 H AST 108 H ALT 95 H Alkaline Phosphatase 173 H Total Protein 6.3 Albumin 3.2 L 09/11/18 17:25 Troponin I < 0.012 Impressions: Chest X-Ray 09/11/18 16:00 IMPRESSION: NO ACUTE RADIOGRAPHIC FINDING IN THE CHEST. Assessment & Plan - Diagnosis (1) Sickle-cell disease with vaso-occlusive pain Is this a current diagnosis for this admission?: Yes Plan: increase dilaudid frequency
[2018-09-20] MEDS: DIPHENHYDRAMINE HCL 50 MG/ML VIAL IV PRN ×2 (00:35→17:52)
[2018-09-20] MEDS: HYDROMORPHONE HCL INJ/PF 2 MG/ML AMPULE IV PRN ×6 (01:41→21:59)
[2018-09-20] MEDS: ONDANSETRON HCL INJ/PF 4 MG/2 ML SDV IV PRN ×3 (04:31→21:58)
[2018-09-20] MEDS: NORMAL SALINE 1000 ML 1,000 ML IV PRN (08:24)
[2018-09-20] MEDS: MULTIVITAMIN TABLET PO SCH (09:35)
[2018-09-20] MEDS: FOLIC ACID 1 MG TABLET PO SCH (09:36)
[2018-09-20] MEDS: GABAPENTIN 300 MG CAPSULE PO SCH ×2 (09:36→21:59)
[2018-09-20] MEDS: HYDROXYUREA 500 MG CAPSULE PO SCH ×3 (10:04→17:51)
[2018-09-20] MEDS: MUPIROCIN 2% OINTMENT 22 GM TP SCH ×2 (10:04→17:54)
[2018-09-20 10:33] LABS: HEMATOCRIT 19.2 % (36.0-47.0); MEAN CORPUSCULAR HEMOGLOBIN 42.7 pg (27.0-33.4); MEAN CORPUSCULAR HGB CONC 35.6 g/dL (32.0-36.0); MEAN CORPUSCULAR VOLUME 120 fl (80-97); PLATELET COUNT 224 10^3/uL (150-450); RED CELL DISTRIBUTION WIDTH 31.2 % (11.5-14.0)
[2018-09-20 10:46] LABS: HEMOGLOBIN 6.8 g/dL (12.0-15.5)
[2018-09-20 10:53] LABS: BAND NEUTROPHILS % (MANUAL) 1 % (3-5); BASOPHILS % (MANUAL) 0 % (0-2); EOSINOPHILS % (MANUAL) 1 % (0-6); LYMPHOCYTES % (MANUAL) 43 % (13-45); MONOCYTES % (MANUAL) 7 % (3-13); NUCLEATED RED BLOOD CELLS 67 /100 WBC (0); SEGMENTED NEUTROPHILS % (MAN) 48 % (42-78); TOTAL CELLS COUNTED 100
[2018-09-20 11:01] LABS: ALANINE AMINOTRANSFERASE 101 U/L (9-52); ALBUMIN 3.5 g/dL (3.5-5.0); ALKALINE PHOSPHATASE 148 U/L (38-126); ASPARTATE AMINO TRANSFERASE 106 U/L (14-36); BILIRUBIN,DIRECT 0.7 mg/dL (0.0-0.4); BILIRUBIN,TOTAL 3.2 mg/dL (0.2-1.3); BLOOD UREA NITROGEN 7 mg/dL (7-20); GLUCOSE 118 mg/dL (75-110); POTASSIUM 4.1 mmol/L (3.6-5.0); TOTAL PROTEIN 6.6 g/dL (6.3-8.2)
[2018-09-20 11:04] LABS: ANISOCYTOSIS 4+; OVALOCYTES 1+; POIKILOCYTOSIS 2+; POLYCHROMASIA 2+; SCHISTOCYTES 1+; SICKLE RED CELLS SLIGHT; SMUDGE CELLS PRESENT; TARGET CELLS SLIGHT; TEAR DROP CELLS SLIGHT
[2018-09-20 11:05] LABS: HOWELL-JOLLY BODIES PRESENT; PAPPENHEIMER BODIES PRESENT
[2018-09-20 11:06] LABS: WHITE BLOOD COUNT 3.4 10^3/uL (4.0-10.5)
[2018-09-20 11:08] LABS: ABSOLUTE LYMPHOCYTES# (MANUAL) 1.5 10^3/uL (0.5-4.7); ABSOLUTE MONOCYTES # (MANUAL) 0.2 10^3/uL (0.1-1.4); ABSOLUTE NEUTROPHILS# (MANUAL) 1.7 10^3/uL (1.7-8.2)
[2018-09-20 11:09] LABS: PLATELET COMMENT ADEQUATE
[2018-09-20 11:36] LABS: CARBON DIOXIDE 24 mmol/L (22-30); CHLORIDE 110 mmol/L (98-107); SODIUM 139.1 mmol/L (137-145)
[2018-09-20 11:53] LABS: ANION GAP 5 (5-19)
[2018-09-20 16:25] LABS: ALANINE AMINOTRANSFERASE 107 U/L (9-52); ALBUMIN 3.9 g/dL (3.5-5.0); ALKALINE PHOSPHATASE 155 U/L (38-126); ASPARTATE AMINO TRANSFERASE 105 U/L (14-36); BILIRUBIN,DIRECT 0.3 mg/dL (0.0-0.4); BILIRUBIN,TOTAL 2.6 mg/dL (0.2-1.3); TOTAL PROTEIN 6.9 g/dL (6.3-8.2)
[2018-09-20] MEDS: RIVAROXABAN 10 MG TABLET PO SCH (17:51)
[2018-09-20] MEDS: NORMAL SALINE 1000 ML 1,000 ML with POTASSIUM CHLORIDE 20 MEQ, MAGNESIUM SULFATE 8 MEQ,... IV SCH ×5 (18:25)
--- NOTE | 2018-09-20 18:40 | PDOC PROGRESS REPORT ---
Subjective Progress Note for:: 09/27/18 Reason For Visit: NAUSEA,VOMITING,DIARRHEA,SICKLE CELL PAIN CRISIS Physical Exam Vital Signs: Temp Pulse Resp BP Pulse Ox 98.5 F 80 16 95/51 L 99 09/20/18 15:31 09/20/18 15:31 09/20/18 15:31 09/20/18 15:31 09/20/18 15:31 Intake & Output 09/19/18 09/20/18 09/21/18 06:59 06:59 06:59 Intake Total 3499 2458 2735 Balance 3499 2458 2735 Weight 64.3 kg 64.1 kg General appearance: PRESENT: no acute distress Eye exam: PRESENT: PERRLA Respiratory exam: PRESENT: clear to auscultation carolyn Cardiovascular exam: PRESENT: +S1, +S2 GI/Abdominal exam: PRESENT: soft Neurological exam: PRESENT: alert, CN II-XII grossly intact Results Laboratory Results: 09/20/18 10:10 09/20/18 10:10 09/20/18 09/20/18 09/20/18 10:10 10:10 15:23 WBC 3.4 L RBC 1.60 L Hgb 6.8 L Hct 19.2 L MCV 120 H MCH 42.7 H MCHC 35.6 RDW 31.2 H Plt Count 224 Seg Neutrophils % Not Reportable Lymphocytes % Not Reportable Monocytes % Not Reportable Eosinophils % Not Reportable Basophils % Not Reportable Absolute Neutrophils Not Reportable Absolute Lymphocytes Not Reportable Absolute Monocytes Not Reportable Absolute Eosinophils Not Reportable Absolute Basophils Not Reportable Sodium 139.1 Potassium 4.1 Chloride 110 H Carbon Dioxide 24 Anion Gap 5 BUN 7 Creatinine 0.58 Est GFR ( Amer) > 60 Est GFR (Non-Af Amer) > 60 Glucose 118 H Calcium 9.0 Total Bilirubin 3.2 H 2.6 H AST 106 H 105 H ALT 101 H 107 H Alkaline Phosphatase 148 H 155 H Total Protein 6.6 6.9 Albumin 3.5 3.9 09/11/18 17:25 Troponin I < 0.012 Impressions: Chest X-Ray 09/11/18 16:00 IMPRESSION: NO ACUTE RADIOGRAPHIC FINDING IN THE CHEST. Assessment & Plan - Diagnosis (1) Sickle-cell disease with vaso-occlusive pain Is this a current diagnosis for this admission?: Yes (2) Anemia, sickle cell with crisis Is this a current diagnosis for this admission?: Yes Plan: The anemia is partly hemolytic but is very mild ,it is mainly dilutional
[2018-09-21] MEDS: HYDROMORPHONE HCL INJ/PF 2 MG/ML AMPULE IV PRN ×7 (01:04→21:24)
[2018-09-21] MEDS: DIPHENHYDRAMINE HCL 50 MG/ML VIAL IV PRN ×3 (01:05→21:20)
[2018-09-21] MEDS: ONDANSETRON HCL INJ/PF 4 MG/2 ML SDV IV PRN ×2 (04:13→18:36)
[2018-09-21] MEDS: NORMAL SALINE 1000 ML 1,000 ML IV PRN ×2 (04:37→15:13)
[2018-09-21] MEDS: MUPIROCIN 2% OINTMENT 22 GM TP SCH ×2 (11:20→18:24)
[2018-09-21] MEDS: FOLIC ACID 1 MG TABLET PO SCH (11:20)
[2018-09-21] MEDS: GABAPENTIN 300 MG CAPSULE PO SCH ×2 (11:20→21:22)
[2018-09-21] MEDS: HYDROXYUREA 500 MG CAPSULE PO SCH ×3 (11:20→18:24)
[2018-09-21 11:56] LABS: HEMATOCRIT 19.8 % (36.0-47.0); MEAN CORPUSCULAR HEMOGLOBIN 43.4 pg (27.0-33.4); MEAN CORPUSCULAR HGB CONC 36.2 g/dL (32.0-36.0); MEAN CORPUSCULAR VOLUME 120 fl (80-97); PLATELET COUNT 231 10^3/uL (150-450); RED BLOOD COUNT 1.65 10^6/uL (3.72-5.28); RED CELL DISTRIBUTION WIDTH 31.8 % (11.5-14.0); WHITE BLOOD COUNT 4.4 10^3/uL (4.0-10.5)
[2018-09-21 12:16] LABS: ALANINE AMINOTRANSFERASE 90 U/L (9-52); ALBUMIN 3.7 g/dL (3.5-5.0); ALKALINE PHOSPHATASE 142 U/L (38-126); ANION GAP 7 (5-19); ASPARTATE AMINO TRANSFERASE 83 U/L (14-36); BILIRUBIN,DIRECT 0.6 mg/dL (0.0-0.4); BILIRUBIN,TOTAL 2.9 mg/dL (0.2-1.3); BLOOD UREA NITROGEN 8 mg/dL (7-20); CARBON DIOXIDE 25 mmol/L (22-30); CHLORIDE 107 mmol/L (98-107); GLUCOSE 85 mg/dL (75-110); POTASSIUM 4.2 mmol/L (3.6-5.0); SODIUM 138.7 mmol/L (137-145)
[2018-09-21 12:20] LABS: ABSOLUTE LYMPHOCYTES# (MANUAL) 1.9 10^3/uL (0.5-4.7); ABSOLUTE MONOCYTES # (MANUAL) 0.3 10^3/uL (0.1-1.4); ABSOLUTE NEUTROPHILS# (MANUAL) 2.1 10^3/uL (1.7-8.2); BASOPHILS % (MANUAL) 0 % (0-2); EOSINOPHILS % (MANUAL) 1 % (0-6); LYMPHOCYTES % (MANUAL) 44 % (13-45); MONOCYTES % (MANUAL) 7 % (3-13); NUCLEATED RED BLOOD CELLS 45 /100 WBC (0); SEGMENTED NEUTROPHILS % (MAN) 48 % (42-78); TOTAL CELLS COUNTED 100
[2018-09-21 12:25] LABS: ANISOCYTOSIS 3+; HOWELL-JOLLY BODIES PRESENT; OVALOCYTES 1+; PAPPENHEIMER BODIES PRESENT; PLATELET COMMENT ADEQUATE; POIKILOCYTOSIS 1+; POLYCHROMASIA SLIGHT; SCHISTOCYTES 1+; SICKLE RED CELLS 1+; SPHEROCYTES SLIGHT; TARGET CELLS 1+; TEAR DROP CELLS SLIGHT
[2018-09-21 12:27] LABS: HEMOGLOBIN 7.2 g/dL (12.0-15.5)
[2018-09-21] MEDS: RIVAROXABAN 10 MG TABLET PO SCH (18:24)
[2018-09-21] MEDS: NORMAL SALINE 1000 ML 1,000 ML with POTASSIUM CHLORIDE 20 MEQ, MAGNESIUM SULFATE 8 MEQ,... IV SCH ×5 (18:36)
--- NOTE | 2018-09-21 23:03 | PDOC PROGRESS REPORT ---
Subjective Progress Note for:: 09/21/18 Subjective:: Patient seen by the bedside,she continues to complain of pain Reason For Visit: NAUSEA,VOMITING,DIARRHEA,SICKLE CELL PAIN CRISIS Physical Exam Vital Signs: Temp Pulse Resp BP Pulse Ox 98.7 F 77 18 98/58 L 100 09/21/18 12:23 09/21/18 12:23 09/21/18 12:23 09/21/18 12:23 09/21/18 12:23 Intake & Output 09/20/18 09/21/18 09/22/18 06:59 06:59 06:59 Intake Total 9975 2335 2705 Balance 2987 3605 2700 Weight 64.1 kg 66.4 kg General appearance: PRESENT: no acute distress Eye exam: PRESENT: PERRLA Respiratory exam: PRESENT: chest wall tenderness Cardiovascular exam: PRESENT: +S1, +S2 GI/Abdominal exam: PRESENT: soft Neurological exam: PRESENT: alert Results Laboratory Results: 09/21/18 11:25 09/21/18 11:25 09/21/18 09/21/18 11:25 11:25 WBC 4.4 RBC 1.65 L Hgb 7.2 L Hct 19.8 L MCV 120 H MCH 43.4 H MCHC 36.2 H RDW 31.8 H Plt Count 231 Seg Neutrophils % Not Reportable Lymphocytes % Not Reportable Monocytes % Not Reportable Eosinophils % Not Reportable Basophils % Not Reportable Absolute Neutrophils Not Reportable Absolute Lymphocytes Not Reportable Absolute Monocytes Not Reportable Absolute Eosinophils Not Reportable Absolute Basophils Not Reportable Sodium 138.7 Potassium 4.2 Chloride 107 Carbon Dioxide 25 Anion Gap 7 BUN 8 Creatinine 0.69 Est GFR ( Amer) > 60 Est GFR (Non-Af Amer) > 60 Glucose 85 Calcium 9.0 Total Bilirubin 2.9 H AST 83 H ALT 90 H Alkaline Phosphatase 142 H Total Protein 7.0 Albumin 3.7 09/11/18 17:25 Troponin I < 0.012 Impressions: Chest X-Ray 09/11/18 16:00 IMPRESSION: NO ACUTE RADIOGRAPHIC FINDING IN THE CHEST. Assessment & Plan - Diagnosis (1) Sickle-cell disease with vaso-occlusive pain Is this a current diagnosis for this admission?: Yes Plan: increase dilaudid frequency (2) Anemia, sickle cell with crisis Is this a current diagnosis for this admission?: Yes Plan: The anemia is partly hemolytic but is very mild ,it is mainly dilutional
[2018-09-22] MEDS: HYDROMORPHONE HCL INJ/PF 2 MG/ML AMPULE IV PRN ×8 (00:24→23:09)
[2018-09-22 04:42] LABS: HEMATOCRIT 19.7 % (36.0-47.0); MEAN CORPUSCULAR HEMOGLOBIN 42.8 pg (27.0-33.4); MEAN CORPUSCULAR HGB CONC 35.3 g/dL (32.0-36.0); MEAN CORPUSCULAR VOLUME 121 fl (80-97); PLATELET COUNT 208 10^3/uL (150-450); RED BLOOD COUNT 1.63 10^6/uL (3.72-5.28); RED CELL DISTRIBUTION WIDTH 31.9 % (11.5-14.0); WHITE BLOOD COUNT 4.7 10^3/uL (4.0-10.5)
[2018-09-22 04:55] LABS: ALANINE AMINOTRANSFERASE 77 U/L (9-52); ALBUMIN 3.7 g/dL (3.5-5.0); ALKALINE PHOSPHATASE 175 U/L (38-126); ANION GAP 6 (5-19); ASPARTATE AMINO TRANSFERASE 68 U/L (14-36); BILIRUBIN,DIRECT 0.5 mg/dL (0.0-0.4); BILIRUBIN,TOTAL 2.8 mg/dL (0.2-1.3); BLOOD UREA NITROGEN 11 mg/dL (7-20); CALCIUM 9.1 mg/dL (8.4-10.2); CARBON DIOXIDE 23 mmol/L (22-30); CHLORIDE 110 mmol/L (98-107); GLUCOSE 101 mg/dL (75-110); SODIUM 138.6 mmol/L (137-145); TOTAL PROTEIN 6.4 g/dL (6.3-8.2)
[2018-09-22 05:29] LABS: ABSOLUTE LYMPHOCYTES# (MANUAL) 1.7 10^3/uL (0.5-4.7); ABSOLUTE MONOCYTES # (MANUAL) 0.5 10^3/uL (0.1-1.4); ABSOLUTE NEUTROPHILS# (MANUAL) 2.3 10^3/uL (1.7-8.2); BASOPHILS % (MANUAL) 1 % (0-2); EOSINOPHILS % (MANUAL) 4 % (0-6); LYMPHOCYTES % (MANUAL) 37 % (13-45); MONOCYTES % (MANUAL) 10 % (3-13); NUCLEATED RED BLOOD CELLS 33 /100 WBC (0); SEGMENTED NEUTROPHILS % (MAN) 48 % (42-78); TOTAL CELLS COUNTED 100
[2018-09-22 05:32] LABS: ANISOCYTOSIS 4+; HYPOCHROMASIA SLIGHT; POIKILOCYTOSIS 1+; POLYCHROMASIA 1+
[2018-09-22 05:33] LABS: HOWELL-JOLLY BODIES PRESENT; OVALOCYTES 1+; PLATELET COMMENT ADEQUATE; TARGET CELLS 1+
[2018-09-22] MEDS: DIPHENHYDRAMINE HCL 50 MG/ML VIAL IV PRN ×3 (07:19→20:23)
[2018-09-22] MEDS: HYDROXYUREA 500 MG CAPSULE PO SCH ×3 (09:19→17:27)
[2018-09-22] MEDS: FOLIC ACID 1 MG TABLET PO SCH (09:19)
[2018-09-22] MEDS: MUPIROCIN 2% OINTMENT 22 GM TP SCH ×2 (09:19→17:28)
[2018-09-22] MEDS: GABAPENTIN 300 MG CAPSULE PO SCH ×2 (09:19→21:48)
[2018-09-22] MEDS: ONDANSETRON HCL INJ/PF 4 MG/2 ML SDV IV PRN ×2 (10:46→17:34)
[2018-09-22] MEDS: NORMAL SALINE 1000 ML 1,000 ML IV PRN (11:20)
[2018-09-22] MEDS: RIVAROXABAN 10 MG TABLET PO SCH (17:27)
[2018-09-22] MEDS: NORMAL SALINE 1000 ML 1,000 ML with POTASSIUM CHLORIDE 20 MEQ, MAGNESIUM SULFATE 8 MEQ,... IV SCH ×5 (17:27)
[2018-09-22] MEDS: PROMETHAZINE HCL 25 MG TABLET PO PRN (21:50)
--- NOTE | 2018-09-22 22:01 | PDOC PROGRESS REPORT ---
Subjective Progress Note for:: 09/22/18 Subjective:: Patient seen by the bedside,she continues to complain of pain Reason For Visit: NAUSEA,VOMITING,DIARRHEA,SICKLE CELL PAIN CRISIS Physical Exam Vital Signs: Temp Pulse Resp BP Pulse Ox 98.5 F 80 22 H 96/59 L 100 09/22/18 19:11 09/22/18 19:11 09/22/18 19:11 09/22/18 19:11 09/22/18 19:11 Intake & Output 09/21/18 09/22/18 09/23/18 06:59 06:59 06:59 Intake Total 4758 4100 1023 Balance 4758 4100 1023 Weight 66.4 kg 66.5 kg General appearance: PRESENT: no acute distress Eye exam: PRESENT: PERRLA Respiratory exam: PRESENT: clear to auscultation carolyn Cardiovascular exam: PRESENT: +S1, +S2 GI/Abdominal exam: PRESENT: soft Neurological exam: PRESENT: alert Results Laboratory Results: 09/22/18 04:20 09/22/18 04:20 09/22/18 09/22/18 04:20 04:20 WBC 4.7 RBC 1.63 L Hgb 7.0 L Hct 19.7 L MCV 121 H MCH 42.8 H MCHC 35.3 RDW 31.9 H Plt Count 208 Seg Neutrophils % Not Reportable Lymphocytes % Not Reportable Monocytes % Not Reportable Eosinophils % Not Reportable Basophils % Not Reportable Absolute Neutrophils Not Reportable Absolute Lymphocytes Not Reportable Absolute Monocytes Not Reportable Absolute Eosinophils Not Reportable Absolute Basophils Not Reportable Sodium 138.6 Potassium 4.0 Chloride 110 H Carbon Dioxide 23 Anion Gap 6 BUN 11 Creatinine 0.57 Est GFR ( Amer) > 60 Est GFR (Non-Af Amer) > 60 Glucose 101 Calcium 9.1 Total Bilirubin 2.8 H AST 68 H ALT 77 H Alkaline Phosphatase 175 H Total Protein 6.4 Albumin 3.7 09/11/18 17:25 Troponin I < 0.012 Impressions: Chest X-Ray 09/11/18 16:00 IMPRESSION: NO ACUTE RADIOGRAPHIC FINDING IN THE CHEST. Assessment & Plan - Diagnosis (1) Sickle-cell disease with vaso-occlusive pain Is this a current diagnosis for this admission?: Yes (2) Anemia, sickle cell with crisis Is this a current diagnosis for this admission?: Yes
[2018-09-22] MEDS: EPOETIN ALFA INJ 20000 UNIT/1 ML VIAL (RENAL) SUBCUT SCH (22:51)
[2018-09-22] MEDS: EPOETIN ALFA INJ 40000 UNIT/1 ML (RENAL) SUBCUT SCH (22:52)
[2018-09-23] MEDS: HYDROMORPHONE HCL INJ/PF 2 MG/ML AMPULE IV PRN ×7 (02:02→22:14)
[2018-09-23] MEDS: PROMETHAZINE HCL 25 MG TABLET PO PRN (06:04)
[2018-09-23 06:37] LABS: ALANINE AMINOTRANSFERASE 70 U/L (9-52); ALBUMIN 3.6 g/dL (3.5-5.0); ALKALINE PHOSPHATASE 157 U/L (38-126); ANION GAP 6 (5-19); ASPARTATE AMINO TRANSFERASE 59 U/L (14-36); BILIRUBIN,DIRECT 0.5 mg/dL (0.0-0.4); BILIRUBIN,TOTAL 2.8 mg/dL (0.2-1.3); BLOOD UREA NITROGEN 10 mg/dL (7-20); CALCIUM 8.9 mg/dL (8.4-10.2); CARBON DIOXIDE 23 mmol/L (22-30); CHLORIDE 109 mmol/L (98-107); GLUCOSE 109 mg/dL (75-110); POTASSIUM 4.5 mmol/L (3.6-5.0); SODIUM 138.3 mmol/L (137-145); TOTAL PROTEIN 6.9 g/dL (6.3-8.2)
[2018-09-23 08:00] LABS: HEMATOCRIT 20.1 % (36.0-47.0); MEAN CORPUSCULAR HEMOGLOBIN 43.3 pg (27.0-33.4); MEAN CORPUSCULAR HGB CONC 35.4 g/dL (32.0-36.0); MEAN CORPUSCULAR VOLUME 122 fl (80-97); PLATELET COUNT 209 10^3/uL (150-450); RED BLOOD COUNT 1.64 10^6/uL (3.72-5.28); WHITE BLOOD COUNT 4.9 10^3/uL (4.0-10.5)
[2018-09-23 08:28] LABS: ABSOLUTE LYMPHOCYTES# (MANUAL) 2.2 10^3/uL (0.5-4.7); ABSOLUTE MONOCYTES # (MANUAL) 0.2 10^3/uL (0.1-1.4); ABSOLUTE NEUTROPHILS# (MANUAL) 2.3 10^3/uL (1.7-8.2); BASOPHILS % (MANUAL) 0 % (0-2); EOSINOPHILS % (MANUAL) 5 % (0-6); LYMPHOCYTES % (MANUAL) 44 % (13-45); MONOCYTES % (MANUAL) 4 % (3-13); NUCLEATED RED BLOOD CELLS 56 /100 WBC (0); SEGMENTED NEUTROPHILS % (MAN) 47 % (42-78); TOTAL CELLS COUNTED 100
[2018-09-23 08:33] LABS: ANISOCYTOSIS 4+; HOWELL-JOLLY BODIES PRESENT; OVALOCYTES 1+; PLATELET COMMENT ADEQUATE; POIKILOCYTOSIS 1+; POLYCHROMASIA 1+; SCHISTOCYTES SLIGHT; TARGET CELLS SLIGHT
[2018-09-23 08:35] LABS: HEMOGLOBIN 7.1 g/dL (12.0-15.5)
[2018-09-23] MEDS: DIPHENHYDRAMINE HCL 50 MG/ML VIAL IV PRN ×3 (09:04→22:15)
[2018-09-23] MEDS: FOLIC ACID 1 MG TABLET PO SCH (09:39)
[2018-09-23] MEDS: MUPIROCIN 2% OINTMENT 22 GM TP SCH ×2 (09:39→18:52)
[2018-09-23] MEDS: GABAPENTIN 300 MG CAPSULE PO SCH ×2 (09:39→22:16)
[2018-09-23] MEDS: HYDROXYUREA 500 MG CAPSULE PO SCH ×3 (09:39→19:01)
[2018-09-23] MEDS: ONDANSETRON HCL INJ/PF 4 MG/2 ML SDV IV PRN ×2 (12:11→19:01)
[2018-09-23] MEDS: RIVAROXABAN 10 MG TABLET PO SCH (19:01)
[2018-09-23] MEDS: NORMAL SALINE 1000 ML 1,000 ML with POTASSIUM CHLORIDE 20 MEQ, MAGNESIUM SULFATE 8 MEQ,... IV SCH ×5 (19:02)
--- NOTE | 2018-09-23 21:40 | PDOC PROGRESS REPORT ---
Subjective Progress Note for:: 09/23/18 Subjective:: Patient seen by the bedside,she continues to complain of pain Reason For Visit: NAUSEA,VOMITING,DIARRHEA,SICKLE CELL PAIN CRISIS Physical Exam Vital Signs: Temp Pulse Resp BP Pulse Ox 98.4 F 84 16 104/59 L 100 09/23/18 19:14 09/23/18 19:14 09/23/18 19:14 09/23/18 19:14 09/23/18 19:14 Intake & Output 09/22/18 09/23/18 09/24/18 06:59 06:59 06:59 Intake Total 4100 3646 1500 Balance 4100 3646 1500 Weight 66.5 kg 67.9 kg General appearance: PRESENT: no acute distress Eye exam: PRESENT: PERRLA Respiratory exam: PRESENT: clear to auscultation carolyn Cardiovascular exam: PRESENT: +S1, +S2 GI/Abdominal exam: PRESENT: soft Neurological exam: PRESENT: alert Results Laboratory Results: 09/23/18 07:16 09/23/18 06:08 09/23/18 09/23/18 09/23/18 06:08 06:08 07:16 WBC Cancelled 4.9 RBC Cancelled 1.64 L Hgb Cancelled 7.1 L Hct Cancelled 20.1 L MCV Cancelled 122 H MCH Cancelled 43.3 H MCHC Cancelled 35.4 RDW Cancelled 32.0 H Plt Count Cancelled 209 Seg Neutrophils % Cancelled Not Reportable Lymphocytes % Cancelled Not Reportable Monocytes % Cancelled Not Reportable Eosinophils % Cancelled Not Reportable Basophils % Cancelled Not Reportable Absolute Neutrophils Cancelled Not Reportable Absolute Lymphocytes Cancelled Not Reportable Absolute Monocytes Cancelled Not Reportable Absolute Eosinophils Cancelled Not Reportable Absolute Basophils Cancelled Not Reportable Sodium 138.3 Potassium 4.5 Chloride 109 H Carbon Dioxide 23 Anion Gap 6 BUN 10 Creatinine 0.60 Est GFR ( Amer) > 60 Est GFR (Non-Af Amer) > 60 Glucose 109 Calcium 8.9 Total Bilirubin 2.8 H AST 59 H ALT 70 H Alkaline Phosphatase 157 H Total Protein 6.9 Albumin 3.6 09/11/18 17:25 Troponin I < 0.012 Impressions: Chest X-Ray 09/11/18 16:00 IMPRESSION: NO ACUTE RADIOGRAPHIC FINDING IN THE CHEST. Assessment & Plan - Diagnosis (1) Sickle-cell disease with vaso-occlusive pain Is this a current diagnosis for this admission?: Yes Plan: increase dilaudid frequency (2) Anemia, sickle cell with crisis Is this a current diagnosis for this admission?: Yes Plan: The anemia is partly hemolytic but is very mild ,it is mainly dilutional
[2018-09-24] MEDS: PROMETHAZINE HCL 25 MG TABLET PO PRN (02:04)
[2018-09-24] MEDS: HYDROMORPHONE HCL INJ/PF 2 MG/ML AMPULE IV PRN ×6 (02:05→21:44)
[2018-09-24] MEDS: NORMAL SALINE 1000 ML 1,000 ML IV PRN (05:45)
[2018-09-24] MEDS: DIPHENHYDRAMINE HCL 50 MG/ML VIAL IV PRN ×3 (08:56→21:46)
[2018-09-24] MEDS: FOLIC ACID 1 MG TABLET PO SCH (10:48)
[2018-09-24] MEDS: MUPIROCIN 2% OINTMENT 22 GM TP SCH ×2 (10:48→19:50)
[2018-09-24] MEDS: HYDROXYUREA 500 MG CAPSULE PO SCH ×3 (10:48→19:49)
[2018-09-24] MEDS: GABAPENTIN 300 MG CAPSULE PO SCH ×2 (10:48→21:47)
[2018-09-24] MEDS: ONDANSETRON HCL INJ/PF 4 MG/2 ML SDV IV PRN (11:59)
[2018-09-24 12:42] LABS: HEMATOCRIT 20.1 % (36.0-47.0); MEAN CORPUSCULAR HEMOGLOBIN 43.8 pg (27.0-33.4); MEAN CORPUSCULAR HGB CONC 35.4 g/dL (32.0-36.0); MEAN CORPUSCULAR VOLUME 124 fl (80-97); PLATELET COUNT 198 10^3/uL (150-450); RED BLOOD COUNT 1.63 10^6/uL (3.72-5.28); RED CELL DISTRIBUTION WIDTH 32.2 % (11.5-14.0); WHITE BLOOD COUNT 4.1 10^3/uL (4.0-10.5)
[2018-09-24 12:55] LABS: ALANINE AMINOTRANSFERASE 61 U/L (9-52); ALBUMIN 3.8 g/dL (3.5-5.0); ALKALINE PHOSPHATASE 167 U/L (38-126); ANION GAP 8 (5-19); ASPARTATE AMINO TRANSFERASE 52 U/L (14-36); BILIRUBIN,DIRECT 0.4 mg/dL (0.0-0.4); BILIRUBIN,TOTAL 2.4 mg/dL (0.2-1.3); BLOOD UREA NITROGEN 9 mg/dL (7-20); CARBON DIOXIDE 25 mmol/L (22-30); CHLORIDE 104 mmol/L (98-107); GLUCOSE 109 mg/dL (75-110); POTASSIUM 4.6 mmol/L (3.6-5.0); SODIUM 137.1 mmol/L (137-145); TOTAL PROTEIN 6.8 g/dL (6.3-8.2)
[2018-09-24 13:31] LABS: ABSOLUTE LYMPHOCYTES# (MANUAL) 1.8 10^3/uL (0.5-4.7); ABSOLUTE MONOCYTES # (MANUAL) 0.2 10^3/uL (0.1-1.4); ABSOLUTE NEUTROPHILS# (MANUAL) 1.7 10^3/uL (1.7-8.2); BASOPHILS % (MANUAL) 0 % (0-2); EOSINOPHILS % (MANUAL) 10 % (0-6); LYMPHOCYTES % (MANUAL) 45 % (13-45); MONOCYTES % (MANUAL) 4 % (3-13); NUCLEATED RED BLOOD CELLS 68 /100 WBC (0); SEGMENTED NEUTROPHILS % (MAN) 41 % (42-78); TOTAL CELLS COUNTED 100
[2018-09-24 13:34] LABS: TOXIC GRANULATION 1+
[2018-09-24 13:35] LABS: ANISOCYTOSIS 4+; HOWELL-JOLLY BODIES PRESENT; OVALOCYTES 1+; PLATELET COMMENT ADEQUATE; POIKILOCYTOSIS 2+; TARGET CELLS SLIGHT; TEAR DROP CELLS SLIGHT
[2018-09-24 13:39] LABS: HEMOGLOBIN 7.1 g/dL (12.0-15.5)
--- NOTE | 2018-09-24 18:35 | PDOC PROGRESS REPORT ---
Subjective Progress Note for:: 09/24/18 Subjective:: Patient seen by the bedside,she continues to complain of pain Reason For Visit: NAUSEA,VOMITING,DIARRHEA,SICKLE CELL PAIN CRISIS Physical Exam Vital Signs: Temp Pulse Resp BP Pulse Ox 98.9 F 83 16 108/64 100 09/24/18 15:26 09/24/18 15:26 09/24/18 15:26 09/24/18 15:26 09/24/18 15:26 Intake & Output 09/23/18 09/24/18 09/25/18 06:59 06:59 06:59 Intake Total 4646 2150 Output Total 140 Balance 4646 2009 Weight 67.9 kg 69.3 kg General appearance: PRESENT: no acute distress Eye exam: PRESENT: PERRLA Respiratory exam: PRESENT: clear to auscultation carolyn Cardiovascular exam: PRESENT: +S1, +S2 GI/Abdominal exam: PRESENT: soft Neurological exam: PRESENT: alert, CN II-XII grossly intact Results Laboratory Results: 09/24/18 11:50 09/24/18 11:50 09/24/18 09/24/18 11:50 11:50 WBC 4.1 RBC 1.63 L Hgb 7.1 L Hct 20.1 L MCV 124 H MCH 43.8 H MCHC 35.4 RDW 32.2 H Plt Count 198 Seg Neutrophils % Not Reportable Lymphocytes % Not Reportable Monocytes % Not Reportable Eosinophils % Not Reportable Basophils % Not Reportable Absolute Neutrophils Not Reportable Absolute Lymphocytes Not Reportable Absolute Monocytes Not Reportable Absolute Eosinophils Not Reportable Absolute Basophils Not Reportable Sodium 137.1 Potassium 4.6 Chloride 104 Carbon Dioxide 25 Anion Gap 8 BUN 9 Creatinine 0.60 Est GFR ( Amer) > 60 Est GFR (Non-Af Amer) > 60 Glucose 109 Calcium 9.0 Total Bilirubin 2.4 H AST 52 H ALT 61 H Alkaline Phosphatase 167 H Total Protein 6.8 Albumin 3.8 09/11/18 17:25 Troponin I < 0.012 Impressions: Chest X-Ray 09/11/18 16:00 IMPRESSION: NO ACUTE RADIOGRAPHIC FINDING IN THE CHEST. Assessment & Plan - Diagnosis (1) Sickle-cell disease with vaso-occlusive pain Is this a current diagnosis for this admission?: Yes Plan: increase dilaudid frequency (2) Anemia, sickle cell with crisis Is this a current diagnosis for this admission?: Yes
[2018-09-24] MEDS: RIVAROXABAN 10 MG TABLET PO SCH (19:49)
[2018-09-25] MEDS: HYDROMORPHONE HCL INJ/PF 2 MG/ML AMPULE IV PRN ×6 (00:55→22:40)
[2018-09-25] MEDS: PROMETHAZINE HCL 25 MG TABLET PO PRN (00:58)
[2018-09-25] MEDS: DIPHENHYDRAMINE HCL 50 MG/ML VIAL IV PRN ×3 (04:12→17:57)
[2018-09-25 06:44] LABS: MEAN CORPUSCULAR HEMOGLOBIN 44.2 pg (27.0-33.4); MEAN CORPUSCULAR HGB CONC 35.6 g/dL (32.0-36.0); MEAN CORPUSCULAR VOLUME 124 fl (80-97); PLATELET COUNT 170 10^3/uL (150-450); RED BLOOD COUNT 1.61 10^6/uL (3.72-5.28); RED CELL DISTRIBUTION WIDTH 32.7 % (11.5-14.0); WHITE BLOOD COUNT 4.8 10^3/uL (4.0-10.5)
[2018-09-25 06:54] LABS: ALANINE AMINOTRANSFERASE 59 U/L (9-52); ALBUMIN 3.8 g/dL (3.5-5.0); ALKALINE PHOSPHATASE 186 U/L (38-126); ANION GAP 8 (5-19); ASPARTATE AMINO TRANSFERASE 59 U/L (14-36); BILIRUBIN,DIRECT 0.6 mg/dL (0.0-0.4); BILIRUBIN,TOTAL 2.7 mg/dL (0.2-1.3); BLOOD UREA NITROGEN 11 mg/dL (7-20); CARBON DIOXIDE 27 mmol/L (22-30); CHLORIDE 103 mmol/L (98-107); GLUCOSE 94 mg/dL (75-110); POTASSIUM 4.3 mmol/L (3.6-5.0); SODIUM 137.8 mmol/L (137-145); TOTAL PROTEIN 7.2 g/dL (6.3-8.2)
[2018-09-25] MEDS: ONDANSETRON HCL INJ/PF 4 MG/2 ML SDV IV PRN ×2 (07:40→17:57)
[2018-09-25 08:47] LABS: ABSOLUTE LYMPHOCYTES# (MANUAL) 1.8 10^3/uL (0.5-4.7); ABSOLUTE MONOCYTES # (MANUAL) 0.3 10^3/uL (0.1-1.4); ABSOLUTE NEUTROPHILS# (MANUAL) 2.2 10^3/uL (1.7-8.2); BASOPHILS % (MANUAL) 0 % (0-2); EOSINOPHILS % (MANUAL) 10 % (0-6); LYMPHOCYTES % (MANUAL) 37 % (13-45); MONOCYTES % (MANUAL) 7 % (3-13); NUCLEATED RED BLOOD CELLS 59 /100 WBC (0); SEGMENTED NEUTROPHILS % (MAN) 46 % (42-78); TOTAL CELLS COUNTED 100
[2018-09-25 08:50] LABS: ANISOCYTOSIS 4+; HOWELL-JOLLY BODIES PRESENT; PAPPENHEIMER BODIES PRESENT; PLATELET COMMENT ADEQUATE; POLYCHROMASIA SLIGHT; SICKLE RED CELLS 1+; TARGET CELLS 1+
[2018-09-25 08:58] LABS: HEMOGLOBIN 7.1 g/dL (12.0-15.5)
[2018-09-25] MEDS: HYDROXYUREA 500 MG CAPSULE PO SCH ×3 (11:07→17:22)
[2018-09-25] MEDS: GABAPENTIN 300 MG CAPSULE PO SCH ×2 (11:07→22:38)
[2018-09-25] MEDS: FOLIC ACID 1 MG TABLET PO SCH (11:07)
[2018-09-25] MEDS: MUPIROCIN 2% OINTMENT 22 GM TP SCH ×2 (11:08→17:22)
[2018-09-25] MEDS: OXYCODONE HCL SR 40 MG TABLET PO SCH (17:20)
[2018-09-25] MEDS: RIVAROXABAN 10 MG TABLET PO SCH (17:21)
--- NOTE | 2018-09-25 21:41 | PDOC DISCHARGE SUMMARY ---
General - Admit/Disc Date/PCP Admission Date/Primary Care Provider: 09/12/18 02:32 HOMA BARRAZA MD Discharge Date: 09/26/18 - Discharge Diagnosis (1) Sickle-cell disease with vaso-occlusive pain Is this a current diagnosis for this admission?: Yes (2) Anemia, sickle cell with crisis Is this a current diagnosis for this admission?: Yes - Additional Information Resuscitation Status: Full Code Home Medications: Epoetin Federico [Procrit Inj 20,000 Unit/1 ml Vial (Renal)] 20,000 unit SQ FR 08/03/18 Epoetin Federico [Procrit Inj 40,000 Unit/1 ml Vial (Renal)] 40,000 unit SQ FR 08/03/18 Folic Acid [Folvite 1 mg Tablet] 1 mg PO DAILY 08/03/18 Gabapentin [Neurontin 300 mg Capsule] 300 mg PO Q12 08/03/18 Hydroxyurea [Hydrea 500 mg Capsule] 500 mg PO TID 08/03/18 Multivitamin [Multiple Vitamins] 1 tab PO DAILY 08/03/18 Oxycodone HCl [Oxycontin Sr 40 mg Tablet] 40 mg PO Q12 08/03/18 Promethazine HCl [Phenergan 25 mg Tablet] 25 mg PO Q6HP PRN 08/03/18 Rivaroxaban [Xarelto] 20 mg PO QPM 08/03/18 History of Present Illness History of Present Illness: WILLIE ALAN is a 48 year old female, She to the emergency room for evaluation of pain of the extremities, generalized body pain she has sickle cell disease. She was just discharged from this hospital on 08/21/2018.She has chronic sickle cell hemolytic anemia, the hemogram that was done in the emergency room demonstrated hemoglobin 9.5 which is super good for this patient.She complains of diffuse pain Hospital Course Hospital Course: Patient was admitted for the management of vaso-occlusive sickle cell pain crises she was treated with intravenous opioid therapy, intravenous fluid. Hospital course was prolongedDue to prolonged vaso-occlusive pain crisis.There was anemia but she was not symptomatic from the anemia it was not hemolytic a nemia, consistent with dilutional anemia there was no indication for blood transfusion Physical Exam Vital Signs: Temp Pulse Resp BP Pulse Ox 99.5 F 87 18 100/60 99 09/25/18 14:50 09/25/18 14:50 09/25/18 14:50 09/25/18 14:50 09/25/18 14:50 Intake & Output 09/24/18 09/25/18 09/26/18 06:59 06:59 06:59 Intake Total 2150 290 Output Total 140 Balance 2009 290 Weight 69.3 kg 71.2 kg General appearance: PRESENT: no acute distress Head exam: PRESENT: atraumatic, normocephalic Eye exam: PRESENT: PERRLA Ear exam: PRESENT: normal external ear exam Mouth exam: PRESENT: moist, tongue midline Neck exam: PRESENT: full ROM Respiratory exam: PRESENT: clear to auscultation carolyn Cardiovascular exam: PRESENT: RRR, +S1, +S2 Pulses: PRESENT: normal dorsalis pedis pul, +2 pedal pulses bilateral Vascular exam: PRESENT: normal capillary refill GI/Abdominal exam: PRESENT: normal bowel sounds, soft Rectal exam: PRESENT: deferred Neurological exam: PRESENT: alert, CN II-XII grossly intact Psychiatric exam: PRESENT: appropriate affect, normal mood Skin exam: PRESENT: dry, intact, warm Results Laboratory Results: 09/25/18 06:30 09/25/18 06:30 09/25/18 09/25/18 06:30 06:30 WBC 4.8 RBC 1.61 L Hgb 7.1 L Hct 20.0 L MCV 124 H MCH 44.2 H MCHC 35.6 RDW 32.7 H Plt Count 170 Seg Neutrophils % Not Reportable Lymphocytes % Not Reportable Monocytes % Not Reportable Eosinophils % Not Reportable Basophils % Not Reportable Absolute Neutrophils Not Reportable Absolute Lymphocytes Not Reportable Absolute Monocytes Not Reportable Absolute Eosinophils Not Reportable Absolute Basophils Not Reportable Sodium 137.8 Potassium 4.3 Chloride 103 Carbon Dioxide 27 Anion Gap 8 BUN 11 Creatinine 0.67 Est GFR ( Amer) > 60 Est GFR (Non-Af Amer) > 60 Glucose 94 Calcium 9.0 Total Bilirubin 2.7 H AST 59 H ALT 59 H Alkaline Phosphatase 186 H Total Protein 7.2 Albumin 3.8 09/11/18 17:25 Troponin I < 0.012 Impressions: Chest X-Ray 09/11/18 16:00 IMPRESSION: NO ACUTE RADIOGRAPHIC FINDING IN THE CHEST. Qualifiers - * PATIENT BEING DISCHARGED WITH ANY OF THE FOLLOWING DIAGNOSIS: No
[2018-09-26] MEDS: DIPHENHYDRAMINE HCL 50 MG/ML VIAL IV PRN ×2 (00:30→07:16)
[2018-09-26] MEDS: OXYCODONE HCL SR 40 MG TABLET PO SCH (05:22)
[2018-09-26] MEDS: HYDROMORPHONE HCL INJ/PF 2 MG/ML AMPULE IV PRN (07:16)
[2018-09-26 08:32] VITALS: BP 111/62
[2018-09-26] MEDS: MUPIROCIN 2% OINTMENT 22 GM TP SCH (09:39)
[2018-09-26] MEDS: GABAPENTIN 300 MG CAPSULE PO SCH (09:41)
[2018-09-26] MEDS: FOLIC ACID 1 MG TABLET PO SCH (09:41)
[2018-09-26] MEDS: HYDROXYUREA 500 MG CAPSULE PO SCH (09:41)
[2018-09-26] MEDS: ONDANSETRON HCL INJ/PF 4 MG/2 ML SDV IV PRN (12:03)
== END 2018-09-26 12:42 | disposition home or self-care (01) | DRG 812 ==
LOC: ER 14:16 → EH 09-12 02:32 → 4S 09-12 05:55 → 2N 09-19 23:20
PROVIDERS: ADMIT Internal Medicine; ATTEND Internal Medicine
DX: D57.00 Hb-SS disease with crisis, unspecified (principal); L03.116 Cellulitis of left lower limb; Z79.01 Long term (current) use of anticoagulants; Z79.899 Other long term (current) drug therapy; Z86.14 Personal history of Methicillin resistant Staphylococcus aureus infection
CPT/HCPCS: 36415; 71046; 80053; 80076; 83010; 83615; 83690; 83735; 84484; 85025; 85045; 93005; 93010; 96361; 96374; 96375; 96376; 99285; J1170; J1200; J1642; J1885; J2405; J3411; J3475; J3480; J3490; J7030; Q4081

== ENCOUNTER 2018-10-17 17:00 | Emergency (ER) | payer MEDICAID ==
[2018-10-17] MEDS ORDERED: DIPHENHYDRAMINE HCL 50 MG/ML VIAL IV ONE ×2 (17:42→22:15)
[2018-10-17] MEDS ORDERED: HYDROMORPHONE HCL INJ/PF 2 MG/ML AMPULE IV ONE ×3 (17:42→23:45)
[2018-10-17] MEDS ORDERED: ONDANSETRON HCL INJ/PF 4 MG/2 ML SDV IV ONE ×2 (17:42→22:15)
--- NOTE | 2018-10-17 17:45 | ER Document Report ---
ED Medical Screen (RME) - General Chief Complaint: Sickle Cell Crisis Stated Complaint: LEG PAIN Time Seen by Provider: 10/17/18 17:34 Primary Care Provider: HOMA BARRAZA MD [Primary Care Provider] - Follow up as needed TRAVEL OUTSIDE OF THE [place] IN LAST 30 DAYS: No - HPI Notes: 10/17/18 17:42 Patient is a 48-year-old female who presents emergency department complaining of sickle cell exacerbation/crisis that began over the past 1.5 days. She was evaluated a couple days ago and was feeling better upon discharge, but symptoms worsened thereafter. Patient states that the pain is in her legs, abdomen, chest, arms. Patient states that this is typical presentation for her flareups. She did see her family provider, Dr. Barraza, who was going to try to admit her, but told her that there are no beds available and to come to the emergency department. He did not call ahead, but told patient to have ED provider give him a call. Denies HOFFMANN, fever, neck pain, URI, SOB, or rash. I have treated and performed a rapid initial assessment of this patient. A comprehensive ED assessment and evaluation of the patient, analysis of test results and completion of medical decision making process will be conducted by additional ED providers. PHYSICAL EXAMINATION: GENERAL: Well-appearing, well-nourished and in no acute distress. A&Ox4. Answers questions appropriately. LUNGS: Breath sounds clear to auscultation bilaterally and equal. No wheezes rales or rhonchi. HEART: Regular rate and rhythm without murmurs, rubs, gallops. - Related Data Allergies/Adverse Reactions: doxycycline [Doxycycline] Allergy (Severe, Verified 08/03/18 12:34) Past Medical History - Past Medical History Cardiac Medical History: Reports: Hx Heart Murmur Denies: Hx Atrial Fibrillation, Hx Congestive Heart Failure, Hx Coronary Artery Disease, Hx Heart Attack, Hx Hypercholesterolemia, Hx Hypertension, Hx Peripheral Vascular Disease Pulmonary Medical History: Denies: Hx Tuberculosis Neurological Medical History: Denies: Hx Seizures Renal/ Medical History: Reports: Hx Ovarian Cysts. 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 Denies: Hx HIV Past Surgical History: Reports: Hx Appendectomy, Hx Section, Hx Cholecystectomy, Hx Orthopedic Surgery - R knee, Hx Tonsillectomy. Denies: Hx Bowel Surgery, Hx Coronary Artery Bypass Graft, Hx Gastric Bypass Surgery, Hx Herniorrhaphy, Hx Mastectomy, Hx Pacemaker, Hx Tubal Ligation - Immunizations Immunizations up to date: Yes Hx Diphtheria, Pertussis, Tetanus Vaccination: Yes History of Influenza Vaccine for 03/2017 - 08/2017 Season: No Physical Exam - Vital signs Vitals: Temp Pulse Resp BP Pulse Ox 99.4 F 90 18 104/62 100 10/17/18 17:13 10/17/18 17:13 10/17/18 17:13 10/17/18 17:13 10/17/18 17:13 Course - Vital Signs Vital signs: Temp Pulse Resp BP Pulse Ox 99.4 F 90 18 104/62 100 10/17/18 17:13 10/17/18 17:13 10/17/18 17:13 10/17/18 17:13 10/17/18 17:13 Doctor's Discharge - Discharge Referrals: HOMA BARRAZA MD [Primary Care Provider] - Follow up as needed
--- NOTE | 2018-10-17 18:11 | RADIOLOGY REPORT (SQ) ---
EXAM DESCRIPTION: CHEST 2 VIEWS COMPLETED DATE/TIME: 10/17/2018 5:56 pm REASON FOR STUDY: chest pain COMPARISON: 10/15/2018 EXAM PARAMETERS: NUMBER OF VIEWS: two views TECHNIQUE: Digital Frontal and Lateral radiographic views of the chest acquired. RADIATION DOSE: NA LIMITATIONS: none FINDINGS: LUNGS AND PLEURA: No opacities, masses or pneumothorax. No pleural effusion. MEDIASTINUM AND HILAR STRUCTURES: No masses or contour abnormalities. HEART AND VASCULAR STRUCTURES: Heart normal size. No evidence for failure. BONES: No acute findings. HARDWARE: [id number] is in place. OTHER: No other significant finding. IMPRESSION: NO ACUTE RADIOGRAPHIC FINDING IN THE CHEST. TECHNICAL DOCUMENTATION: JOB ID: [id number] [employer]- All Rights Reserved Reading location - IP/workstation name: [email or web address]
[2018-10-17] MEDS ORDERED: FENTANYL CITRATE INJ/PF 100 MCG/2 ML AMPUL IM ONE (19:07)
[2018-10-17] MEDS: NORMAL SALINE 1000 ML 1,000 ML IV PRN (22:26)
[2018-10-17 23:01] LABS: HEMATOCRIT 24.3 % (36.0-47.0); HEMOGLOBIN 8.5 g/dL (12.0-15.5); MEAN CORPUSCULAR VOLUME 123 fl (80-97); RED BLOOD COUNT 1.97 10^6/uL (3.72-5.28); WHITE BLOOD COUNT 6.6 10^3/uL (4.0-10.5)
[2018-10-17 23:02] LABS: ABSOLUTE RETICS # 0.058 10^6/uL (0.028-0.122); MEAN CORPUSCULAR HEMOGLOBIN 43.3 pg (27.0-33.4); MEAN CORPUSCULAR HGB CONC 35.2 g/dL (32.0-36.0); PLATELET COUNT 295 10^3/uL (150-450); RED CELL DISTRIBUTION WIDTH 24.4 % (11.5-14.0); RETICULOCYTE COUNT (AUTO) 2.96 % (0.66-2.85)
[2018-10-17 23:03] LABS: ALANINE AMINOTRANSFERASE 54 U/L (9-52); ALBUMIN 5.1 g/dL (3.5-5.0); ALKALINE PHOSPHATASE 171 U/L (38-126); ANION GAP 14 (5-19); ASPARTATE AMINO TRANSFERASE 58 U/L (14-36); BILIRUBIN,DIRECT 1.1 mg/dL (0.0-0.4); BILIRUBIN,TOTAL 5.8 mg/dL (0.2-1.3); BLOOD UREA NITROGEN 10 mg/dL (7-20); CALCIUM 10.2 mg/dL (8.4-10.2); CARBON DIOXIDE 19 mmol/L (22-30); CHLORIDE 113 mmol/L (98-107); GLUCOSE 106 mg/dL (75-110); POTASSIUM 3.9 mmol/L (3.6-5.0); SODIUM 145.5 mmol/L (137-145); TOTAL PROTEIN 9.2 g/dL (6.3-8.2)
[2018-10-17 23:14] LABS: ABSOLUTE LYMPHOCYTES# (MANUAL) 2.4 10^3/uL (0.5-4.7); ABSOLUTE MONOCYTES # (MANUAL) 0.8 10^3/uL (0.1-1.4); ANISOCYTOSIS 3+; BASOPHILS % (MANUAL) 2 % (0-2); EOSINOPHILS % (MANUAL) 0 % (0-6); LYMPHOCYTES % (MANUAL) 36 % (13-45); METAMYELOCYTES % (MANUAL) 2 % (0); MONOCYTES % (MANUAL) 12 % (3-13); NUCLEATED RED BLOOD CELLS 4 /100 WBC (0); SEGMENTED NEUTROPHILS % (MAN) 48 % (42-78); TOTAL CELLS COUNTED 100
[2018-10-17 23:15] LABS: PLATELET COMMENT ADEQUATE; PLATELET GIANT PRESENT; PLATELET LARGE PRESENT; TARGET CELLS SLIGHT
--- NOTE | 2018-10-17 23:28 | EKG REPORT ---
SEVERITY:- NORMAL ECG - SINUS RHYTHM : Confirmed by: Keyla Alexander 17-Oct-2018 23:28:11
--- NOTE | 2018-10-17 23:44 | ER Document Report ---
ED General - General Chief Complaint: Sickle Cell Crisis Stated Complaint: LEG PAIN Time Seen by Provider: 10/17/18 17:34 Primary Care Provider: HOMA BARRAZA MD [Primary Care Provider] - Follow up tomorrow Mode of Arrival: Ambulatory Information source: Patient, [facility] Records Notes: Patient is a 48-year-old female who presents emergency department complaining of sickle cell exacerbation/crisis that began over the past 1.5 days. She was evaluated a couple days ago and was feeling better upon discharge, but symptoms worsened thereafter. Patient states that the pain is in her legs, abdomen, chest, arms. Patient states that this is typical presentation for her flareups. She did see her family provider, Dr. Barraza, who was going to try to admit her, but told her that there are no beds available and to come to the emergency department. He did not call ahead, but told patient to have ED provider give him a call. Denies HOFFMANN, fever, neck pain, URI, SOB, or rash. TRAVEL OUTSIDE OF THE [place] IN LAST 30 DAYS: No - HPI Onset: Other Onset/Duration: Persistent, Worse Quality of pain: Achy, Throbbing Severity: Moderate Pain Level: 3 Associated symptoms: Body/muscle aches. denies: Chills, Fever, Nausea, Vomiting, Shortness of breath Exacerbated by: Denies Relieved by: Denies Similar symptoms previously: Yes Recently seen / treated by doctor: Yes - Related Data Allergies/Adverse Reactions: doxycycline [Doxycycline] Allergy (Severe, Verified 08/03/18 12:34) Past Medical History - General Information source: Patient - Social History Smoking Status: Never Smoker Frequency of alcohol use: None Drug Abuse: None Lives with: Family Family History: Reviewed & Not Pertinent Patient has suicidal ideation: No Patient has homicidal ideation: No - Past Medical History Cardiac Medical History: Reports: Hx Heart Murmur Denies: Hx Atrial Fibrillation, Hx Congestive Heart Failure, Hx Coronary Artery Disease, Hx Heart Attack, Hx Hypercholesterolemia, Hx Hypertension, Hx Peripheral Vascular Disease Pulmonary Medical History: Denies: Hx Tuberculosis Neurological Medical History: Denies: Hx Seizures Renal/ Medical History: Reports: Hx Ovarian Cysts. 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 Denies: Hx HIV Past Surgical History: Reports: Hx Appendectomy, Hx Section, Hx Cholecystectomy, Hx Orthopedic Surgery - R knee, Hx Tonsillectomy. Denies: Hx Bowel Surgery, Hx Coronary Artery Bypass Graft, Hx Gastric Bypass Surgery, Hx Herniorrhaphy, Hx Mastectomy, Hx Pacemaker, Hx Tubal Ligation - Immunizations Immunizations up to date: Yes Hx Diphtheria, Pertussis, Tetanus Vaccination: Yes Hx Pneumococcal Vaccination: 03/20/14 Review of Systems - Review of Systems Notes: REVIEW OF SYSTEMS: CONSTITUTIONAL : Denies fever, chills, or sweats. Denies recent illness. Denies weight loss, recent hospitalizations. EENT: Denies visual changes, eye pain. Denies sore throat, oral lesions, difficulty swallowing. CARDIOVASCULAR: Denies chest pain. Denies palpitations. Denies lower extremity edema. RESPIRATORY: Denies cough. Denies shortness of breath, wheezing. GASTROINTESTINAL: Denies abdominal distention. Denies nausea, vomiting, or diarrhea. Denies blood in vomitus, stools, or per rectum. Denies black, tarry stools. Denies constipation. GENITOURINARY: Denies difficulty urinating, painful urination, frequency, blood in urine, or vaginal discharge. MUSCULOSKELETAL: Denies neck pain or stiffness. + joint pain SKIN: Denies rash, lesions or sores. HEMATOLOGIC : Denies easy bruising or bleeding. LYMPHATIC: Denies swollen glands. NEUROLOGICAL: Denies confusion or altered mental status. Denies loss of consciousness. Denies dizziness or lightheadedness. Denies headache. Denies weakness or paralysis. Denies problems difficulty with ambulation, slurred speech. Denies sensory loss, numbness, or tingling. Denies seizures. PSYCHIATRIC: Denies anxiety or stress. Denies depression, suicidal ideation, or homicidal ideation. Denies visual or auditory hallucinations. Physical Exam - Vital signs Vitals: Temp Pulse Resp BP Pulse Ox 99.4 F 90 18 104/62 100 10/17/18 17:13 10/17/18 17:13 10/17/18 17:13 10/17/18 17:13 10/17/18 17:13 - Notes Notes: PHYSICAL EXAMINATION: GENERAL: Well-appearing, well-nourished and in no acute distress. HEAD: Atraumatic, normocephalic. EYES: Pupils equal round and reactive to light, extraocular movements intact, conjunctiva are normal. ENT: Nares patent, oropharynx clear without exudates. Moist mucous membranes. NECK: Normal range of motion, supple without lymphadenopathy LUNGS: Breath sounds clear to auscultation bilaterally and equal. No wheezes rales or rhonchi. HEART: Regular rate and rhythm without murmurs ABDOMEN: Soft, nontender, nondistended abdomen. No guarding, no rebound. No masses appreciated. Female : deferred Musculoskeletal: Normal range of motion, no pitting or edema. No cyanosis. Left lower extremity with skin texture and color change. DP pulse intact. No obvious deformity. NEUROLOGICAL: Cranial nerves grossly intact. Normal speech, normal gait. Normal sensory, motor exams PSYCH: Normal mood, normal affect. SKIN: Left lower extremity with skin texture and color change. Course - Re-evaluation Re-evalutation: Laboratory 10/17/18 10/17/18 10/17/18 22:20 22:20 22:20 WBC 6.6 RBC 1.97 L Hgb 8.5 L Hct 24.3 L MCV 123 H MCH 43.3 H MCHC 35.2 RDW 24.4 H Plt Count 295 Total Counted 100 Seg Neutrophils % Not Reportable Seg Neuts % (Manual) 48 Lymphocytes % Not Reportable Lymphocytes % (Manual) 36 Monocytes % Not Reportable Monocytes % (Manual) 12 Eosinophils % Not Reportable Eosinophils % (Manual) 0 Basophils % Not Reportable Basophils % (Manual) 2 Metamyelocytes % 2 H Absolute Neutrophils Not Reportable Abs Neuts (Manual) 3.3 Absolute Lymphocytes Not Reportable Abs Lymphs (Manual) 2.4 Absolute Monocytes Not Reportable Abs Monocytes (Manual) 0.8 Absolute Eosinophils Not Reportable Absolute Eos (Manual) 0.0 Absolute Basophils Not Reportable Abs Basophils (Manual) 0.1 Nucleated RBCs 4 Large Platelets PRESENT Giant Platelets PRESENT Platelet Comment ADEQUATE Anisocytosis 3+ Macrocytosis 4+ Target Cells SLIGHT Retic Count (auto) 2.96 H Absolute Retic 0.058 Sodium 145.5 H Potassium 3.9 Chloride 113 H Carbon Dioxide 19 L Anion Gap 14 BUN 10 Creatinine 0.61 Est GFR ( Amer) > 60 Est GFR (Non-Af Amer) > 60 Glucose 106 Calcium 10.2 Total Bilirubin 5.8 H Direct Bilirubin 1.1 H Neonat Total Bilirubin Not Reportable Neonat Direct Bilirubin Not Reportable Neonat Indirect Bili Not Reportable AST 58 H ALT 54 H Alkaline Phosphatase 171 H Troponin I < 0.012 Total Protein 9.2 H Albumin 5.1 H Chest X-Ray 10/17/18 17:41 IMPRESSION: NO ACUTE RADIOGRAPHIC FINDING IN THE CHEST. 48-year-old female with sickle cell anemia presents with complaint of abdominal pain, back pain and leg pain. Patient was recently admitted and discharged home for similar symptoms. Vital signs reviewed upon arrival and within normal limits. Patient does not appear toxic or dehydrated. She is in no acute distress. 10/17/18 23:47 Patient states that she is supposed to be a direct admission by Dr. Barraza who I just spoke to and states that he does not want the patient admitted and that she can be discharged home. 10/18/18 01:01 I explained to the patient that Dr. Barraza does not want her admitted at this time. Patient is requesting additional pain medication and Benadryl. Advised to follow-up with her primary care physician for outpatient pain medications. Patient was evaluated and treated as appropriate for the patient's presenting symptoms and complaint, with consideration of any critical or life threatening conditions that may be associated with their obtained history and exam as noted above. All results were discussed with patient and her primary care physician Dr. Barraza. Patient provided the opportunity to ask questions, and express concerns. Patient was educated on treatments based on their presumed diagnosis as noted above. At this time we will discharge the patient with return precautions and follow-up recommendations. Verbal discharge instructions given a the bedside. Medication warnings reviewed. Patient is in agreement with this plan and has verbalized understanding of return precautions. After careful consideration I feel that that patient can be safely discharged from the emergency department, they were advised to followup with a primary care physician in 2-3 days. Dictation on this chart was performed using voice recognition software and may result in unintended grammatical, spelling, syntax or errors. - Vital Signs Vital signs: Temp Pulse Resp BP Pulse Ox 99.4 F 90 18 104/62 100 10/17/18 17:13 10/17/18 17:13 10/17/18 17:13 10/17/18 17:13 10/17/18 17:13 - Laboratory Result Diagrams: 10/17/18 22:20 10/17/18 22:20 Laboratory results interpreted by me: 10/17/18 10/17/18 22:20 22:20 RBC 1.97 L Hgb 8.5 L Hct 24.3 L MCV 123 H MCH 43.3 H RDW 24.4 H Metamyelocytes % 2 H Retic Count (auto) 2.96 H Sodium 145.5 H Chloride 113 H Carbon Dioxide 19 L Total Bilirubin 5.8 H Direct Bilirubin 1.1 H AST 58 H ALT 54 H Alkaline Phosphatase 171 H Total Protein 9.2 H Albumin 5.1 H - Diagnostic Test Radiology reviewed: Image reviewed, Reports reviewed - EKG Interpretation by Me EKG shows normal: Sinus rhythm Rate: Normal Rhythm: NSR When compared to previous EKG there are: No significant change Discharge - Discharge Clinical Impression: Sickle cell pain crisis Sickle cell anemia Qualifiers: Sickle-cell associated disorders: without crisis Qualified Code(s): D57.1 - Sickle-cell disease without crisis Condition: Good Disposition: HOME, SELF-CARE Instructions: Sickle Cell Crisis ([facility]) Additional Instructions: Follow up with your [id number] hours for further care or return to the ED IMMEDIATELY if symptoms worsen or you have any concerns. If you cannot afford to follow up with your primary care physician a list of low cost clinics have been provided at the end of your discharge papers as well. Most prescribed medications have multiple side effects. The safest thing to do is when filling your prescription speak to your pharmacist regarding possible interactions with your normal home medications and over the counter medications such as Ibuprofen, Tylenol, Benadryl. If you experience any symptoms that cause you discomfort or concern you should discontinue the medication immediately and return to the emergency room or call your primary care physician. Prescriptions: Oxycodone HCl [Oxycodone HCl 10 MG Tablet] 1 tab PO Q6H PRN #15 tablet PRN Reason: PAIN Referrals: HOMA BARRAZA MD [Primary Care Provider] - Follow up tomorrow
[2018-10-18] MEDS ORDERED: DIPHENHYDRAMINE HCL 50 MG/ML VIAL IV ONE (00:29)
[2018-10-18] MEDS: NORMAL SALINE 1000 ML 1,000 ML IV PRN (00:39)
[2018-10-18] MEDS ORDERED: METOCLOPRAMIDE HCL INJ/PF 10 MG/2 ML SDV IV ONE (02:10)
[2018-10-18] MEDS ORDERED: HYDROMORPHONE HCL INJ/PF 2 MG/ML AMPULE IV ONE (02:11)
[2018-10-18 02:36] VITALS: BP 111/65
== END 2018-10-18 02:49 | disposition home or self-care (01) ==
LOC: ER 17:00
DX: D57.00 Hb-SS disease with crisis, unspecified (principal)
CPT/HCPCS: 93005; 36591; 96376; 99284; 96372; 96374; 96375; 36415; 85025; 85045; 80053; 84484; 71046; 93010; J1200 ×2; J3010; J2765; J1170 ×2; J2405; J7030 ×2; J1642

== ENCOUNTER 2018-10-23 11:26 | Emergency (ER) | payer MEDICAID ==
--- NOTE | 2018-10-23 11:52 | ER Document Report ---
ED Medical Screen (RME) - General Chief Complaint: Chest Pain Stated Complaint: CHEST PAIN Time Seen by Provider: 10/23/18 11:44 Primary Care Provider: HOMA BARRAZA MD [Primary Care Provider] - Follow up as needed Mode of Arrival: Wheelchair Information source: Patient Notes: 48-year-old female presented to ED for complaint of chest pain since yesterday. She states she was seen in the emergency room a week ago for sickle cell crisis. She states that when she was discharged was given a prescription for oxycodone and the pharmacy would not fill it because she is on long-acting oxycodone. Patient states she has not really gotten better since she was here a week ago. She states she did follow-up with her primary care doctor but the chest pain started yesterday so she came back today. Patient is alert oriented respirations regular and unlabored speaking in full sentences walks with a even steady gait and is in no acute distress at this time. I have greeted and performed a rapid initial assessment of this patient. A comprehensive ED assessment and evaluation of the patient, analysis of test results and completion of medical decision making process will be conducted by an additional ED providers. TRAVEL OUTSIDE OF THE [place] IN LAST 30 DAYS: No - Related Data Allergies/Adverse Reactions: doxycycline [Doxycycline] Allergy (Severe, Verified 08/03/18 12:34) Past Medical History - Social History Frequency of alcohol use: None Drug Abuse: None - Past Medical History Cardiac Medical History: Reports: Hx Heart Murmur Denies: Hx Atrial Fibrillation, Hx Congestive Heart Failure, Hx Coronary Artery Disease, Hx Heart Attack, Hx Hypercholesterolemia, Hx Hypertension, Hx Peripheral Vascular Disease Pulmonary Medical History: Denies: Hx Tuberculosis Neurological Medical History: Denies: Hx Seizures Renal/ Medical History: Reports: Hx Ovarian Cysts. 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 Denies: Hx HIV Past Surgical History: Reports: Hx Appendectomy, Hx Section, Hx Cholecystectomy, Hx Orthopedic Surgery - R knee, Hx Tonsillectomy. Denies: Hx Bowel Surgery, Hx Coronary Artery Bypass Graft, Hx Gastric Bypass Surgery, Hx Herniorrhaphy, Hx Mastectomy, Hx Pacemaker, Hx Tubal Ligation - Immunizations Immunizations up to date: Yes Hx Diphtheria, Pertussis, Tetanus Vaccination: Yes History of Influenza Vaccine for 03/2017 - 08/2017 Season: No Physical Exam - Vital signs Vitals: Temp Pulse Resp BP Pulse Ox 98.7 F 79 16 95/56 L 100 10/23/18 11:32 10/23/18 11:32 10/23/18 11:32 10/23/18 11:32 10/23/18 11:32 Course - Vital Signs Vital signs: Temp Pulse Resp BP Pulse Ox 98.7 F 79 16 95/56 L 100 10/23/18 11:32 10/23/18 11:32 10/23/18 11:32 10/23/18 11:32 10/23/18 11:32 Doctor's Discharge - Discharge Referrals: HOMA BARRAZA MD [Primary Care Provider] - Follow up as needed
[2018-10-23] MEDS ORDERED: HYDROMORPHONE HCL INJ/PF 2 MG/ML AMPULE IV ONE ×2 (12:57→14:52)
[2018-10-23] MEDS ORDERED: NORMAL SALINE 1000 ML 1,000 ML IV ONE ×2 (12:57→14:52)
--- NOTE | 2018-10-23 13:16 | RADIOLOGY REPORT (SQ) ---
EXAM DESCRIPTION: CHEST 2 VIEWS COMPLETED DATE/TIME: 10/23/2018 1:08 pm REASON FOR STUDY: chest pain COMPARISON: 10/17/2018 EXAM PARAMETERS: NUMBER OF VIEWS: two views TECHNIQUE: Digital Frontal and Lateral radiographic views of the chest acquired. RADIATION DOSE: NA LIMITATIONS: none FINDINGS: LUNGS AND PLEURA: No opacities, masses or pneumothorax. No pleural effusion. MEDIASTINUM AND HILAR STRUCTURES: No masses or contour abnormalities. HEART AND VASCULAR STRUCTURES: Heart normal size. No evidence for failure. BONES: No acute findings. HARDWARE: None in the chest. OTHER: Unchanged position of left-sided port. IMPRESSION: NO ACUTE RADIOGRAPHIC FINDING IN THE CHEST. TECHNICAL DOCUMENTATION: JOB ID: [id number] [employer]- All Rights Reserved Reading location - IP/workstation name: [email or web address]
[2018-10-23 13:21] LABS: ALANINE AMINOTRANSFERASE 37 U/L (9-52); ALBUMIN 4.7 g/dL (3.5-5.0); ALKALINE PHOSPHATASE 179 U/L (38-126); ANION GAP 11 (5-19); ASPARTATE AMINO TRANSFERASE 51 U/L (14-36); BILIRUBIN,TOTAL 4.8 mg/dL (0.2-1.3); BLOOD UREA NITROGEN 9 mg/dL (7-20); CALCIUM 9.8 mg/dL (8.4-10.2); CARBON DIOXIDE 21 mmol/L (22-30); CHLORIDE 112 mmol/L (98-107); GLUCOSE 107 mg/dL (75-110); LIPASE 174.5 U/L (23-300); SODIUM 143.6 mmol/L (137-145); TOTAL PROTEIN 8.7 g/dL (6.3-8.2)
[2018-10-23 13:22] LABS: ABSOLUTE RETICS # 0.104 10^6/uL (0.028-0.122); HEMATOCRIT 23.6 % (36.0-47.0); HEMOGLOBIN 8.3 g/dL (12.0-15.5); MEAN CORPUSCULAR HGB CONC 35.1 g/dL (32.0-36.0); MEAN CORPUSCULAR VOLUME 123 fl (80-97); PLATELET COUNT 367 10^3/uL (150-450); RED BLOOD COUNT 1.93 10^6/uL (3.72-5.28); RED CELL DISTRIBUTION WIDTH 24.7 % (11.5-14.0); RETICULOCYTE COUNT (AUTO) 5.38 % (0.66-2.85); WHITE BLOOD COUNT 5.7 10^3/uL (4.0-10.5)
[2018-10-23 13:35] LABS: CREATINE KINASE MB < 0.22 ng/mL (<4.55); TROPONIN I < 0.012 ng/mL
[2018-10-23 14:16] LABS: ABSOLUTE LYMPHOCYTES# (MANUAL) 2.1 10^3/uL (0.5-4.7); ABSOLUTE MONOCYTES # (MANUAL) 0.3 10^3/uL (0.1-1.4); ABSOLUTE NEUTROPHILS# (MANUAL) 3.4 10^3/uL (1.7-8.2); BASOPHILS % (MANUAL) 0 % (0-2); EOSINOPHILS % (MANUAL) 0 % (0-6); LYMPHOCYTES % (MANUAL) 36 % (13-45); MONOCYTES % (MANUAL) 5 % (3-13); NUCLEATED RED BLOOD CELLS 6 /100 WBC (0); SEGMENTED NEUTROPHILS % (MAN) 59 % (42-78); TOTAL CELLS COUNTED 100
[2018-10-23 14:17] LABS: ANISOCYTOSIS 3+; OVALOCYTES 2+; POLYCHROMASIA 1+; SICKLE RED CELLS 2+; TARGET CELLS 1+
[2018-10-23 14:18] LABS: PLATELET COMMENT ADEQUATE; PLATELET LARGE PRESENT; POIKILOCYTOSIS 2+
[2018-10-23 15:53] LABS: APPEARANCE,URINE SLIGHTLY-CLOUDY; BILIRUBIN,URINE NEGATIVE (NEGATIVE); COLOR,URINE YELLOW; GLUCOSE, URINE NEGATIVE (NEGATIVE); KETONES,URINE NEGATIVE (NEGATIVE); LEUKOCYTE ESTERASE,URINE SMALL (NEGATIVE); NITRITE,URINE NEGATIVE (NEGATIVE); PROTEIN,URINE NEGATIVE (NEGATIVE); UROBILINOGEN,URINE NEGATIVE mg/dL (<2.0)
--- NOTE | 2018-10-23 16:11 | EKG REPORT ---
SEVERITY:- NORMAL ECG - SINUS RHYTHM : Confirmed by: No Boss MD 23-Oct-2018 16:10:15
[2018-10-23] MEDS ORDERED: OXYCODONE HCL IR 5 MG TABLET PO ONE (16:43)
--- NOTE | 2018-10-23 16:45 | ER Document Report ---
Entered by CARSON BEDOYA SCRIBE 10/23/18 1255 Acting as scribe for:RAÚL CAMP DO ED General - General Chief Complaint: Chest Pain Stated Complaint: CHEST PAIN Time Seen by Provider: 10/23/18 11:44 Primary Care Provider: HOMA BARRAZA MD [Primary Care Provider] - Follow up as needed Mode of Arrival: Wheelchair Information source: Patient Notes: Patient is a 48 year old female with sickle cell anemia presents to the emergency department complaining of generalized pain and chest pain onset 1 week ago. Patient states she is having her normal sickle cell pain but states her chest pain is new. She describes the chest pain as a constant sharpness with no alleviating or relieving factors. Patient states she has had chest pain in the past that was diagnosed with acute chest syndrome. She has never had to have an exchange transfusion. She did recently a sickle cell crisis for which she was prescribed oxycodone however the pharmacy would not fill it because she is already on OxyContin. Patient's grinding operator is Dr. Mcneil although she states she is transferring to Dr. Harris. Patient is currently prescribed gabapentin, hydroxyurea, procrit, oxycodone and oxycotin. TRAVEL OUTSIDE OF THE [place] IN LAST 30 DAYS: No - Related Data Allergies/Adverse Reactions: doxycycline [Doxycycline] Allergy (Severe, Verified 08/03/18 12:34) Past Medical History - General Information source: Patient - Social History Smoking Status: Never Smoker Frequency of alcohol use: None Drug Abuse: None Family History: Reviewed & Not Pertinent Patient has suicidal ideation: No Patient has homicidal ideation: No - Past Medical History Cardiac Medical History: Reports: Hx Heart Murmur Renal/ Medical History: Reports: Hx Ovarian Cysts Skin Medical History: Reports Hx MRSA Psychiatric Medical History: Reports: Hx Anxiety Infectious Medical History: Reports: Hx MRSA - History of MRSA osteomyelitis Past Surgical History: Reports: Hx Appendectomy, Hx Section, Hx Cholecystectomy, Hx Orthopedic Surgery - R knee, Hx Tonsillectomy - Immunizations Immunizations up to date: Yes Hx Diphtheria, Pertussis, Tetanus Vaccination: Yes Hx Pneumococcal Vaccination: 03/20/14 Review of Systems - Review of Systems Constitutional: See HPI EENT: No symptoms reported Cardiovascular: See HPI, Chest pain Respiratory: No symptoms reported Gastrointestinal: No symptoms reported Genitourinary: No symptoms reported Female Genitourinary: No symptoms reported Musculoskeletal: No symptoms reported Skin: No symptoms reported Hematologic/Lymphatic: No symptoms reported Neurological/Psychological: No symptoms reported -: Yes All other systems reviewed and negative Physical Exam - Vital signs Vitals: Temp Pulse Resp BP Pulse Ox 98.7 F 79 16 95/56 L 100 10/23/18 11:32 10/23/18 11:32 10/23/18 11:32 10/23/18 11:32 10/23/18 11:32 - Notes Notes: GENERAL: Alert, interacts well. No acute distress. HEAD: Normocephalic, atraumatic. EYES: Pupils equal, round, and reactive to light. Extraocular movements intact. ENT: Oral mucosa moist, tongue midline. NECK: Full range of motion. Supple. Trachea midline. LUNGS: Clear to auscultation bilaterally, no wheezes, rales, or rhonchi. No respiratory distress.Port in the left anterior chest wall. Tender to palpation over sternum. HEART: Regular rate and rhythm. No murmurs, gallops, or rubs. ABDOMEN: Soft, RLQ tender to palpation. Non-distended. Bowel sounds present in all 4 quadrants. No guarding, rigidity, or rebound. EXTREMITIES: Moves all 4 extremities spontaneously. No edema, radial and dorsalis pedis pulses 2/4 bilaterally. No cyanosis. NEUROLOGICAL: Alert and oriented x3. Normal speech. PSYCH: Normal affect, normal mood. SKIN: Warm, dry, normal turgor. No rashes or lesions noted. Course - Re-evaluation Re-evalutation: 10/23/18 14:53 CBC shows chronic anemia with hemoglobin 8.3 slightly lower than discharge, reticulocyte count elevated at 5.38, absolute reticulocyte count normal at 0.104, CO2 slightly low at 21, total and direct bilirubin persistently elevated at 4.8 and 1.0, cardiac enzymes negative, test negative, lipase normal at 174.5, chest x-ray does not reveal any signs of pulmonary infarct. EKG is nonischemic. Patient is rechecked, does appear somewhat uncomfortable however she states that she had been feeling better and her pain restarted approximately 30 minutes ago. Will be given another liter of fluid and another milligram of Dilaudid, cardiac enzymes will be repeated. 10/23/18 16:42 Troponin is negative on the repeat, pain is improved after second liter fluids and second dose of Dilaudid. Patient still has the prescription that she was written on the for oxycodone 10 mg 1 tablet every 6 hours as needed number 15 tablets. States that several pharmacies refused to fill it because she is already receiving other narcotics. I did call and discussed with this with the [facility] pharmacy who apparently called Dr. Mcneli's office on the and they stated that she has a pain contract with them and they should not fill this medication. I then spoke with Dr. Mcneil directly who said that she does not want to prescribe additional pain medications for this patient until she has seen her, states that the patient can come to our office tomorrow morning at 10 AM. Discussed this plan with the patient who states that she does not want to go see Dr. Mcneil tomorrow because she has a new patient appointment with Dr. Harris on 27 October. Discussed with patient that I cannot force a pharmacy to fill a prescription and if she is on a pain management contract that we have to abide by that. Patient will be given a single dose of oxycodone by mouth here and discharged to home. - Vital Signs Vital signs: Temp Pulse Resp BP Pulse Ox 98.7 F 79 16 95/56 L 100 10/23/18 11:32 10/23/18 11:32 10/23/18 11:32 10/23/18 11:32 10/23/18 11:32 - Laboratory Result Diagrams: 10/23/18 12:36 10/23/18 12:36 Laboratory results interpreted by me: 10/23/18 10/23/18 10/23/18 12:36 12:36 15:40 RBC 1.93 L Hgb 8.3 L Hct 23.6 L MCV 123 H MCH 43.0 H RDW 24.7 H Retic Count (auto) 5.38 H Chloride 112 H Carbon Dioxide 21 L Total Bilirubin 4.8 H Direct Bilirubin 1.0 H AST 51 H Alkaline Phosphatase 179 H Total Protein 8.7 H Urine Blood SMALL H Ur Leukocyte Esterase SMALL H - EKG Interpretation by Me Additional EKG results interpreted by me: 10/23/18 14:53 EKG shows sinus rhythm at a rate of 75, normal axis, normal intervals, no ST segment elevations or depressions, no T wave inversions per my interpretation. Discharge - Discharge Clinical Impression: Sickle cell anemia with crisis Condition: Stable Disposition: HOME, SELF-CARE Additional Instructions: We have given you an additional dose of oxycodone immediate release by mouth here. I spoke with Dr. Mcneil and she has requested that you come to her office tomorrow morning at 10 AM for reevaluation. Return to the emergency department for worsening chest pain, shortness of breath, fever or any new or concerning symptoms. Referrals: HOMA BARRAZA MD [Primary Care Provider] - Follow up as needed ANH MCNEIL MD [ACTIVE STAFF] - 10/24/18 10:00 am I personally performed the services described in the documentation, reviewed and edited the documentation which was dictated to the scribe in my presence, and it accurately records my words and actions.
[2018-10-23 17:05] VITALS: BP 117/87
[2018-10-23] MEDS ORDERED: HEPARIN SOD (PORCINE) 1,000 UNIT/ML 10 ML VIAL IV ONE (17:11)
[2018-10-23] MEDS ORDERED: HYDROCODONE/ACETAMINOPHEN 5-325 MG TABLET PO ONE (17:21)
== END 2018-10-23 17:27 | disposition home or self-care (01) ==
LOC: ER 11:26
DX: D57.00 Hb-SS disease with crisis, unspecified (principal); R07.9 Chest pain, unspecified; R10.813 Right lower quadrant abdominal tenderness; Z79.891 Long term (current) use of opiate analgesic; Z79.899 Other long term (current) drug therapy; Z88.1 Allergy status to other antibiotic agents
CPT/HCPCS: 93005; 36591; 96376; 99284; 96361; 96374; 36415; 87086; 82553; 83690; 84703; 85025; 87088; 85045; 80053; 81001; 84484; 87186; 71046; 93010; J1644; J1170; J7030; J3490

== ENCOUNTER 2018-10-30 09:43 | Emergency (ER) | payer MEDICAID ==
[2018-10-30] MEDS ORDERED: HYDROMORPHONE HCL INJ/PF 2 MG/ML AMPULE IV ONE ×4 (10:40→13:41)
[2018-10-30] MEDS ORDERED: NORMAL SALINE 1000 ML 1,000 ML IV ONE (10:40)
--- NOTE | 2018-10-30 10:42 | ER Document Report ---
ED Medical Screen (RME) - General Chief Complaint: Sickle Cell Crisis Stated Complaint: CHEST PAIN/LEGS,BACK AND SIDE PAIN Time Seen by Provider: 10/30/18 10:39 Primary Care Provider: HOMA BARRAZA MD [Primary Care Provider] - Follow up as needed Mode of Arrival: Wheelchair Information source: Patient Notes: 48-year-old female presented to ED for complaint of chest pain and swelling to the left side pain to the arms and legs with swelling. She states she is having a sickle cell crisis. She states she has similar pains to this when she has sickle cell crisis. Patient has been ordered blood and urine as well as pain medications. She is also been ordered IV fluids and oxygen. Her port has been accessed. I have greeted and performed a rapid initial assessment of this patient. A comprehensive ED assessment and evaluation of the patient, analysis of test results and completion of medical decision making process will be conducted by an additional ED providers. Dictation of this chart was performed using voice recognition software; therefore, there may be some unintended grammatical errors. TRAVEL OUTSIDE OF THE [place] IN LAST 30 DAYS: No - Related Data Allergies/Adverse Reactions: doxycycline [Doxycycline] Allergy (Severe, Verified 08/03/18 12:34) Past Medical History - Past Medical History Cardiac Medical History: Reports: Hx Heart Murmur Denies: Hx Atrial Fibrillation, Hx Congestive Heart Failure, Hx Coronary Artery Disease, Hx Heart Attack, Hx Hypercholesterolemia, Hx Hypertension, Hx Peripheral Vascular Disease Pulmonary Medical History: Denies: Hx Tuberculosis Neurological Medical History: Denies: Hx Seizures Renal/ Medical History: Reports: Hx Ovarian Cysts. 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 Denies: Hx HIV Past Surgical History: Reports: Hx Appendectomy, Hx Section, Hx Cholecystectomy, Hx Orthopedic Surgery - R knee, Hx Tonsillectomy. Denies: Hx Bowel Surgery, Hx Coronary Artery Bypass Graft, Hx Gastric Bypass Surgery, Hx Herniorrhaphy, Hx Mastectomy, Hx Pacemaker, Hx Tubal Ligation - Immunizations Immunizations up to date: Yes Hx Diphtheria, Pertussis, Tetanus Vaccination: Yes History of Influenza Vaccine for 03/2017 - 08/2017 Season: No Physical Exam - Vital signs Vitals: Temp Pulse Resp BP Pulse Ox 100.1 F 97 20 109/45 L 93 10/30/18 09:58 10/30/18 09:58 10/30/18 09:58 10/30/18 09:58 10/30/18 09:58 Course - Vital Signs Vital signs: Temp Pulse Resp BP Pulse Ox 100.1 F 97 20 109/45 L 93 10/30/18 09:58 10/30/18 09:58 10/30/18 09:58 10/30/18 09:58 10/30/18 09:58 Doctor's Discharge - Discharge Referrals: HOMA BARRAZA MD [Primary Care Provider] - Follow up as needed
--- NOTE | 2018-10-30 10:43 | ER Document Report ---
ED General - General Chief Complaint: Sickle Cell Crisis Stated Complaint: CHEST PAIN/LEGS,BACK AND SIDE PAIN Time Seen by Provider: 10/30/18 10:39 Primary Care Provider: HOMA BARRAZA MD [Primary Care Provider] - Follow up as needed Mode of Arrival: Wheelchair Notes: Patient is a 48-year-old female with history of sickle cell disease that presents to the emergency department for chief complaint of chest pain, and bone pain. Patient states that her symptoms started getting worse Tuesday, and progressed, she reports having a fever of 102 F at home as well, she is been taken Tylenol for that. She is had pain in her arms and legs as well. But mainly in her chest and she feels short of breath. She currently rates her pain as a 10 out of 10 describes it as a throbbing and aching sensation. She states that her pain is somewhat worse with it breath. She has been taking her home OxyContin 30 mg twice daily without any improvement of her symptoms so she decided come to the emergency department. She was recently here about 7 days ago for sickle cell pain crisis, was discharged home. She denies having any cough associated with this, but does feel short of breath. She has not had any nausea, vomiting, abdominal pain or diarrhea. She reports having acute chest syndrome remotely in the past. Patient also is complaining that her legs have been swollen, which is not typical for her. Past Medical History: Sickle cell disease Past Surgical History: Mediport placement Social History: Denies current tobacco, alcohol or drug use. 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 Family History: Reviewed and noncontributory for presenting illness Allergies: Reviewed, see documented allergy list. REVIEW OF SYSTEMS: Other than noted above, the 12 point review of systems was reviewed with the patient and were negative, all pertinent findings are included in the HPI. PHYSICAL EXAMINATION: Vital signs reviewed, nursing noted reviewed. GENERAL: Patient appears rather uncomfortable on exam HEAD: Atraumatic, normocephalic. EYES: Eyes appear normal, extraocular movements intact, sclera anicteric, conjunctiva are normal. ENT: nares patent, oropharynx clear without exudates. Moist mucous membranes. NECK: Normal range of motion, supple without lymphadenopathy LUNGS: Increased work of breathing, but lungs are clear bilaterally in all conrad. No wheezing, rhonchi or rales. HEART: Regular rate and rhythm without murmurs ABDOMEN: Soft, nontender, normoactive bowel sounds. No rebound, guarding, or rigidity. No masses appreciated. EXTREMITIES: Both legs are tender to palpate on exam, upper extremities are nontender, good range of motion, 1+ pitting edema to the distal tibias. NEUROLOGICAL: No focal neurological deficits. Moves all extremities s pontaneously Motor and sensory grossly intact on exam. PSYCH: Patient appears uncomfortable and anxious, answering questions appropriately. SKIN: Warm, Dry, normal turgor, no rashes or lesions noted on exposed skin TRAVEL OUTSIDE OF THE [place] IN LAST 30 DAYS: No - Related Data Allergies/Adverse Reactions: doxycycline [Doxycycline] Allergy (Severe, Verified 08/03/18 12:34) Past Medical History - General Information source: Patient - Social History Smoking Status: Never Smoker Family History: Reviewed & Not Pertinent - Past Medical History Cardiac Medical History: Reports: Hx Heart Murmur Denies: Hx Atrial Fibrillation, Hx Congestive Heart Failure, Hx Coronary Artery Disease, Hx Heart Attack, Hx Hypercholesterolemia, Hx Hypertension, Hx Peripheral Vascular Disease Pulmonary Medical History: Denies: Hx Tuberculosis Neurological Medical History: Denies: Hx Seizures Renal/ Medical History: Reports: Hx Ovarian Cysts. 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 Denies: Hx HIV Past Surgical History: Reports: Hx Appendectomy, Hx Section, Hx Cholecystectomy, Hx Orthopedic Surgery - R knee, Hx Tonsillectomy. Denies: Hx Bowel Surgery, Hx Coronary Artery Bypass Graft, Hx Gastric Bypass Surgery, Hx Herniorrhaphy, Hx Mastectomy, Hx Pacemaker, Hx Tubal Ligation - Immunizations Immunizations up to date: Yes Hx Diphtheria, Pertussis, Tetanus Vaccination: Yes Hx Pneumococcal Vaccination: 03/20/14 Physical Exam - Vital signs Vitals: Temp Pulse Resp BP Pulse Ox 100.1 F 97 20 109/45 L 93 10/30/18 09:58 10/30/18 09:58 10/30/18 09:58 10/30/18 09:58 10/30/18 09:58 Course - Re-evaluation Re-evalutation: Patient seen and examined vital signs reviewed. Laboratory data and imaging were ordered as appropriate for the patient's presenting symptoms and complaint, with consideration of any critical or life threatening conditions that may be associated with their obtained history and exam as noted above. Patient was treated with IV fluids, 1 L normal saline, given a total of 4 mg of IV Dilaudid which did help her pain, she is also given Zofran for nausea. Results were reviewed when available and demonstrated significant anemia of 5.9, which the patient has dropped several points, from 8.3 from less than a week ago, reticulocyte count is around her baseline, at 5. Bilirubin is around her baseline as well. Her chest x-ray was concerning for bilateral pulmonary edema and concern for acute chest syndrome, given patient's presenting with chest pain, and has sickle cell anemia and acute drop in her hemoglobin. Patient was started on broad-spectrum antibiotics, with Rocephin and azithromycin, and this presentation. She was noted to have a temperature of 100.1 F here, apparently had a temperature of 102 F at home. She was initially mildly hypoxic, at 91%, she is placed on submental oxygen, and has come up to 97% on 2 L nasal cannula. The patient was re-evaluated and was improved after pain control, is alert, respiratory rate is improved as well. Patient was started on 1 unit packed red blood cells simple blood transfusion, to help treat her acute chest syndrome as well, while awaiting transport to receive plasmapheresis presumably when she arrives to [facility]. Patient was reassessed several times, to check on how she was doing, and has been maintaining stable vital signs. Evaluation was most consistent with acute chest syndrome, acute on chronic anemia Results were discussed with the patient at this point after careful conside ration I feel that that patient should be transferred to [facility], ED to ED transfer due to likely need for plasmapheresis, and concern for acute chest syndrome. This was discussed with the patient that it is in the best interest for their care to be transferred, the risks and benefits of transfer were discussed, including but not limited to clinical deterioration during transport, respiratory distress, and potential for traumatic injuries. Patient agreed with this plan of care. *Note is created using voice recognition software and may contain spelling, syntax or grammatical errors. Laboratory 10/30/18 10/30/18 10/30/18 10:49 10:49 10:49 WBC 5.4 RBC 1.35 L Hgb 5.9 L Hct 16.1 L MCV 120 H MCH 43.6 H MCHC 36.5 H RDW 25.5 H Plt Count 301 Total Counted 100 Seg Neutrophils % Not Reportable Seg Neuts % (Manual) 63 Lymphocytes % Not Reportable Lymphocytes % (Manual) 30 Atypical Lymphs % 1 Monocytes % Not Reportable Monocytes % (Manual) 3 Eosinophils % Not Reportable Eosinophils % (Manual) 2 Basophils % Not Reportable Basophils % (Manual) 1 Absolute Neutrophils Not Reportable Abs Neuts (Manual) 3.4 Absolute Lymphocytes Not Reportable Abs Lymphs (Manual) 1.7 Absolute Monocytes Not Reportable Abs Monocytes (Manual) 0.2 Absolute Eosinophils Not Reportable Absolute Eos (Manual) 0.1 Absolute Basophils Not Reportable Abs Basophils (Manual) 0.1 Nucleated RBCs 41 Smudge Cells PRESENT Toxic Granulation SLIGHT Platelet Comment ADEQUATE Polychromasia 1+ Poikilocytosis 2+ Anisocytosis 3+ Macrocytosis 3+ Pappenheimer Bodies PRESENT Sickle Cells SLIGHT Tear Drop Cells SLIGHT Ovalocytes 1+ [place] Bodies PRESENT Schistocytes SLIGHT Retic Count (auto) 5.57 H Absolute Retic 0.075 Sodium 140.5 Potassium 3.7 Chloride 106 Carbon Dioxide 24 Anion Gap 11 BUN 9 Creatinine 0.69 Est GFR ( Amer) > 60 Est GFR (Non-Af Amer) > 60 Glucose 110 Calcium 9.1 Total Bilirubin 4.7 H Direct Bilirubin 0.8 H Neonat Total Bilirubin Not Reportable Neonat Direct Bilirubin Not Reportable Neonat Indirect Bili Not Reportable AST 46 H ALT 44 Alkaline Phosphatase 152 H Troponin I NT-Pro-B Natriuret Pep Total Protein 7.6 Albumin 4.1 Serum HCG, Qual NEGATIVE Blood Type Antibody Screen 10/30/18 10/30/18 10:49 12:05 WBC RBC Hgb Hct MCV MCH MCHC RDW Plt Count Total Counted Seg Neutrophils % Seg Neuts % (Manual) Lymphocytes % Lymphocytes % (Manual) Atypical Lymphs % Monocytes % Monocytes % (Manual) Eosinophils % Eosinophils % (Manual) Basophils % Basophils % (Manual) Absolute Neutrophils Abs Neuts (Manual) Absolute Lymphocytes Abs Lymphs (Manual) Absolute Monocytes Abs Monocytes (Manual) Absolute Eosinophils Absolute Eos (Manual) Absolute Basophils Abs Basophils (Manual) Nucleated RBCs Smudge Cells Toxic Granulation Platelet Comment Polychromasia Poikilocytosis Anisocytosis Macrocytosis Pappenheimer Bodies Sickle Cells Tear Drop Cells Ovalocytes [place] Bodies Schistocytes Retic Count (auto) Absolute Retic Sodium Potassium Chloride Carbon Dioxide Anion Gap BUN Creatinine Est GFR ( Amer) Est GFR (Non-Af Amer) Glucose Calcium Total Bilirubin Direct Bilirubin Neonat Total Bilirubin Neonat Direct Bilirubin Neonat Indirect Bili AST ALT Alkaline Phosphatase Troponin I < 0.012 NT-Pro-B Natriuret Pep 435 H Total Protein Albumin Serum HCG, Qual Blood Type O POSITIVE Antibody Screen NEGATIVE Chest X-Ray 10/30/18 10:42 IMPRESSION: Pulmonary vascular congestion. No pulmonary edema. At 1305 patient was reevaluated, and was hemodynamically stable, and prepared for transport, by air ALS transport, as the patient cannot wait for ground tra nsport, due to her acute chest syndrome, which is a life-threatening condition for sickle cell patients. - Vital Signs Vital signs: Temp Pulse Resp BP Pulse Ox 98.9 F 86 18 114/80 98 10/30/18 14:37 10/30/18 14:37 10/30/18 14:37 10/30/18 14:37 10/30/18 14:37 - Laboratory Result Diagrams: 10/30/18 10:49 10/30/18 10:49 Laboratory results interpreted by me: 10/30/18 10/30/18 10/30/18 10:49 10:49 10:49 RBC 1.35 L Hgb 5.9 L Hct 16.1 L MCV 120 H MCH 43.6 H MCHC 36.5 H RDW 25.5 H Retic Count (auto) 5.57 H Total Bilirubin 4.7 H Direct Bilirubin 0.8 H AST 46 H Alkaline Phosphatase 152 H NT-Pro-B Natriuret Pep 435 H Crossmatch 10/30/18 12:05 RBC Hgb Hct MCV MCH MCHC RDW Retic Count (auto) Total Bilirubin Direct Bilirubin AST Alkaline Phosphatase NT-Pro-B Natriuret Pep Crossmatch See Detail - EKG Interpretation by Me Additional EKG results interpreted by me: EKG demonstrates sinus rhythm with a ventricular rate of 92 bpm, normal axis, QTC 471 ms, no ST elevation, this is compared with the prior EKG from 10/23/2018, without significant change. Critical Care Note - Critical Care Note Total time excluding time spent on procedures (mins): 50 Comments: Critical care time 50 minutes exclusive from separate billable procedures for a patient requiring complex medical decision making, and high potential for clinical deterioration. In a patient with acute chest syndrome and sickle cell anemia. Time spent obtaining history from patient or surrogate, discussions with consultants, development of treatment plan with patient or surrogate, evaluation of patient's response to treatment, examination of patient, ordering and performing treatments and interventions, ordering and review of laboratory studies, re-evaluation of patient's condition, ordering and review of radiographic studies and review of old charts Discharge - Discharge Clinical Impression: Acute chest syndrome, Hemolytic crisis, Hyperbilirubinemia Sickle cell anemia Qualifiers: Sickle-cell associated disorders: with acute chest syndrome Qualified Code(s): D57.01 - Hb-SS disease with acute chest syndrome Condition: Serious Disposition: [place] Referrals: HOMA BARRAZA MD [Primary Care Provider] - Follow up as needed
--- NOTE | 2018-10-30 11:09 | RADIOLOGY REPORT (SQ) ---
EXAM DESCRIPTION: CHEST 2 VIEWS COMPLETED DATE/TIME: 10/30/2018 10:57 am REASON FOR STUDY: chest pain, sickle cell COMPARISON: 10/23/2018 EXAM PARAMETERS: NUMBER OF VIEWS: two views TECHNIQUE: Digital Frontal and Lateral radiographic views of the chest acquired. RADIATION DOSE: NA LIMITATIONS: none FINDINGS: LUNGS AND PLEURA: There is mild pulmonary vascular prominence. There is no pulmonary evesn a. No focal airspace disease is seen. MEDIASTINUM AND HILAR STRUCTURES: No masses or contour abnormalities. HEART AND VASCULAR STRUCTURES: Heart normal size. No evidence for failure. BONES: No acute findings. HARDWARE: Injection port on the left. OTHER: No other significant finding. IMPRESSION: Pulmonary vascular congestion. No pulmonary edema. TECHNICAL DOCUMENTATION: JOB ID: [id number]- All Rights Reserved Reading location - IP/workstation name: [email or web address]
[2018-10-30 11:16] LABS: HEMATOCRIT 16.1 % (36.0-47.0); MEAN CORPUSCULAR VOLUME 120 fl (80-97); RED BLOOD COUNT 1.35 10^6/uL (3.72-5.28); WHITE BLOOD COUNT 5.4 10^3/uL (4.0-10.5)
[2018-10-30 11:17] LABS: MEAN CORPUSCULAR HEMOGLOBIN 43.6 pg (27.0-33.4); MEAN CORPUSCULAR HGB CONC 36.5 g/dL (32.0-36.0); PLATELET COUNT 301 10^3/uL (150-450); RED CELL DISTRIBUTION WIDTH 25.5 % (11.5-14.0)
[2018-10-30 11:19] LABS: ABSOLUTE RETICS # 0.075 10^6/uL (0.028-0.122); RETICULOCYTE COUNT (AUTO) 5.57 % (0.66-2.85)
[2018-10-30 11:20] LABS: ALANINE AMINOTRANSFERASE 44 U/L (9-52); ALBUMIN 4.1 g/dL (3.5-5.0); ALKALINE PHOSPHATASE 152 U/L (38-126); ANION GAP 11 (5-19); ASPARTATE AMINO TRANSFERASE 46 U/L (14-36); BILIRUBIN,DIRECT 0.8 mg/dL (0.0-0.4); BILIRUBIN,TOTAL 4.7 mg/dL (0.2-1.3); BLOOD UREA NITROGEN 9 mg/dL (7-20); CALCIUM 9.1 mg/dL (8.4-10.2); CARBON DIOXIDE 24 mmol/L (22-30); CHLORIDE 106 mmol/L (98-107); GLUCOSE 110 mg/dL (75-110); POTASSIUM 3.7 mmol/L (3.6-5.0); SODIUM 140.5 mmol/L (137-145); TOTAL PROTEIN 7.6 g/dL (6.3-8.2)
[2018-10-30] MEDS ORDERED: CEFTRIAXONE 1 GM/D5W RTU 1 GM/50 ML RTUPB IV ONE (11:40)
[2018-10-30] MEDS ORDERED: AZITHROMYCIN INJ 500 MG VIAL IV ONE (11:41)
[2018-10-30 11:43] LABS: ABSOLUTE LYMPHOCYTES# (MANUAL) 1.7 10^3/uL (0.5-4.7); ABSOLUTE MONOCYTES # (MANUAL) 0.2 10^3/uL (0.1-1.4); ABSOLUTE NEUTROPHILS# (MANUAL) 3.4 10^3/uL (1.7-8.2); BASOPHILS % (MANUAL) 1 % (0-2); EOSINOPHILS % (MANUAL) 2 % (0-6); LYMPHOCYTES % (MANUAL) 30 % (13-45); MONOCYTES % (MANUAL) 3 % (3-13); NUCLEATED RED BLOOD CELLS 41 /100 WBC (0); SEGMENTED NEUTROPHILS % (MAN) 63 % (42-78); TOTAL CELLS COUNTED 100
[2018-10-30 11:45] LABS: NT PRO BNP 435 pg/mL (<125)
[2018-10-30 11:48] LABS: TROPONIN I < 0.012 ng/mL
[2018-10-30 11:49] LABS: POLYCHROMASIA 1+; TOXIC GRANULATION SLIGHT
[2018-10-30 11:50] LABS: ANISOCYTOSIS 3+; HOWELL-JOLLY BODIES PRESENT; OVALOCYTES 1+; PAPPENHEIMER BODIES PRESENT; POIKILOCYTOSIS 2+; SCHISTOCYTES SLIGHT; SICKLE RED CELLS SLIGHT; SMUDGE CELLS PRESENT; TEAR DROP CELLS SLIGHT
[2018-10-30 11:51] LABS: HEMOGLOBIN 5.9 g/dL (12.0-15.5); PLATELET COMMENT ADEQUATE
--- NOTE | 2018-10-30 12:58 | EKG REPORT ---
SEVERITY:- NORMAL ECG - SINUS RHYTHM : Confirmed by: Killian Moraes MD 30-Oct-2018 12:58:25
[2018-10-30] MEDS ORDERED: NORMAL SALINE 250 ML IV PRN (13:15)
[2018-10-30 14:38] VITALS: BP 114/80
== END 2018-10-30 14:38 | disposition short-term general hospital (02) ==
LOC: ER 09:43
DX: D57.01 Hb-SS disease with acute chest syndrome (principal); E80.6 Other disorders of bilirubin metabolism; R50.9 Fever, unspecified; R06.02 Shortness of breath; R60.0 Localized edema; R09.02 Hypoxemia; R09.89 Other specified symptoms and signs involving the circulatory and respiratory systems; Z88.1 Allergy status to other antibiotic agents
CPT/HCPCS: 93005; 36591; 96376; 99291; 96361; 96375; 96365; 96368; 86900; 86901; 36415; 87040; 36430; 86850; 84703; 85025; 85045; 80053; 84484; 86920; 86902; 83880; 71046; 93010; P9016; J1170; J7030; J0456; J0696

== ENCOUNTER 2018-11-19 22:11 | Inpatient (IN) | payer MEDICAID ==
[2018-11-20 00:44] LABS: ABSOLUTE RETICS # 0.052 10^6/uL (0.028-0.122); HEMATOCRIT 23.9 % (36.0-47.0); HEMOGLOBIN 8.4 g/dL (12.0-15.5); MEAN CORPUSCULAR HEMOGLOBIN 43.4 pg (27.0-33.4); MEAN CORPUSCULAR HGB CONC 35.2 g/dL (32.0-36.0); MEAN CORPUSCULAR VOLUME 123 fl (80-97); PLATELET COUNT 287 10^3/uL (150-450); RED BLOOD COUNT 1.94 10^6/uL (3.72-5.28); RED CELL DISTRIBUTION WIDTH 27.3 % (11.5-14.0); RETICULOCYTE COUNT (AUTO) 2.68 % (0.66-2.85); WHITE BLOOD COUNT 5.4 10^3/uL (4.0-10.5)
[2018-11-20 00:57] LABS: ALANINE AMINOTRANSFERASE 46 U/L (9-52); ALBUMIN 4.8 g/dL (3.5-5.0); ALKALINE PHOSPHATASE 155 U/L (38-126); ANION GAP 9 (5-19); ASPARTATE AMINO TRANSFERASE 60 U/L (14-36); BILIRUBIN,DIRECT 0.8 mg/dL (0.0-0.4); BILIRUBIN,TOTAL 4.8 mg/dL (0.2-1.3); BLOOD UREA NITROGEN 8 mg/dL (7-20); CALCIUM 9.9 mg/dL (8.4-10.2); CARBON DIOXIDE 20 mmol/L (22-30); CHLORIDE 110 mmol/L (98-107); GLUCOSE 107 mg/dL (75-110); POTASSIUM 3.8 mmol/L (3.6-5.0); SODIUM 139.4 mmol/L (137-145); TOTAL PROTEIN 8.6 g/dL (6.3-8.2)
[2018-11-20 00:58] LABS: ABSOLUTE LYMPHOCYTES# (MANUAL) 2.4 10^3/uL (0.5-4.7); ABSOLUTE MONOCYTES # (MANUAL) 0.3 10^3/uL (0.1-1.4); BASOPHILS % (MANUAL) 0 % (0-2); EOSINOPHILS % (MANUAL) 1 % (0-6); LYMPHOCYTES % (MANUAL) 44 % (13-45); MONOCYTES % (MANUAL) 6 % (3-13); NUCLEATED RED BLOOD CELLS 2 /100 WBC (0); SEGMENTED NEUTROPHILS % (MAN) 49 % (42-78); TOTAL CELLS COUNTED 100
[2018-11-20 01:00] LABS: PLATELET COMMENT ADEQUATE
[2018-11-20 01:01] LABS: HOWELL-JOLLY BODIES PRESENT
[2018-11-20 01:04] LABS: ANISOCYTOSIS 3+; HYPOCHROMASIA 1+; SCHISTOCYTES SLIGHT; SICKLE RED CELLS 1+; TARGET CELLS 3+
[2018-11-20] MEDS ORDERED: NORMAL SALINE 1000 ML 1,000 ML IV ONE ×2 (01:19→02:27)
[2018-11-20] MEDS ORDERED: ONDANSETRON HCL INJ/PF 4 MG/2 ML SDV IV ONE (01:20)
[2018-11-20] MEDS ORDERED: HYDROMORPHONE HCL INJ/PF 2 MG/ML AMPULE IV ONE ×4 (01:20→07:06)
[2018-11-20 01:36] LABS: LIPASE 165.7 U/L (23-300)
[2018-11-20 01:37] LABS: CREATINE KINASE < 20 U/L (30-135)
[2018-11-20 01:40] LABS: APPEARANCE,URINE CLEAR; BILIRUBIN,URINE NEGATIVE (NEGATIVE); COLOR,URINE YELLOW; GLUCOSE, URINE NEGATIVE (NEGATIVE); KETONES,URINE NEGATIVE (NEGATIVE); LEUKOCYTE ESTERASE,URINE TRACE (NEGATIVE); NITRITE,URINE NEGATIVE (NEGATIVE); PROTEIN,URINE NEGATIVE (NEGATIVE); URINE SPECIFIC GRAVITY 1.012
[2018-11-20 01:50] LABS: NT PRO BNP 120 pg/mL (<125)
[2018-11-20 01:51] LABS: CREATINE KINASE MB < 0.22 ng/mL (<4.55); TROPONIN I < 0.012 ng/mL
--- NOTE | 2018-11-20 02:18 | RADIOLOGY REPORT (SQ) ---
EXAM DESCRIPTION: XR CHEST 2 VIEWS COMPLETED DATE/TME: 11/20/2018 01:19 CLINICAL HISTORY: 48 years, Female, chest pain, h/o pulm edema, sickle cell COMPARISON: 10/15/2018 chest NUMBER OF VIEWS: 2 TECHNIQUE: 2 view chest LIMITATIONS: None. FINDINGS: Heart size normal. [id number] catheter in place. Minor scarring left lung base. Lungs otherwise clear. No pneumothorax IMPRESSION: No acute cardiopulmonary process copyright 2010 [employer]- All Rights Reserved
[2018-11-20] MEDS ORDERED: DIPHENHYDRAMINE HCL 50 MG/ML VIAL IV ONE ×2 (03:01→07:06)
--- NOTE | 2018-11-20 06:41 | ER Document Report ---
Entered by CARSON BEDOYA SCRIBE 11/20/18 0133 Acting as scribe for:RAÚL CAMP DO ED General - General Chief Complaint: Sickle Cell Crisis Stated Complaint: BODY PAIN, MUSCLE PAIN Time Seen by Provider: 11/20/18 01:07 Mode of Arrival: Ambulatory Information source: Patient Notes: Patient is a 48 year old female with sickle cell anemia presents to the emergency department complaining of generalized body pain and chest pain. Patient states she was recently transferred to [facility] after being diagnosed with pulmonary edema and was admitted for 6 days. Patient states she has not had any pain until 3 days ago. She states her pain is her "typical sickle cell pain" and describes it as pain in her bilateral upper extremities, bilateral lower extremities, back and chest. Patient states she has taken her prescribed 8mg of oxycodone (2x daily) with no relief. She also complains of fevers (peak fever of 101.0), denies shortness of breath, admits urinary burning and nausea. She denies any vomiting or hematuria. She states this does not feel like the pain she was having when she had to be transferred to [facility]. Patient's employee relations consultant is Dr. Parker she is attempting to transfer to Dr. Harris. Patient's PCP is Dr. Roberson. TRAVEL OUTSIDE OF THE [place] IN LAST 30 DAYS: No - Related Data Allergies/Adverse Reactions: doxycycline [Doxycycline] Allergy (Severe, Verified 08/03/18 12:34) Past Medical History - General Information source: Patient - Social History Smoking Status: Never Smoker Frequency of alcohol use: None Drug Abuse: None Family History: Reviewed & Not Pertinent Patient has suicidal ideation: No Patient has homicidal ideation: No - Past Medical History Cardiac Medical History: Reports: Hx Heart Murmur Renal/ Medical History: Reports: Hx Ovarian Cysts Skin Medical History: Reports Hx MRSA Psychiatric Medical History: Reports: Hx Anxiety Infectious Medical History: Reports: Hx MRSA - History of MRSA osteomyelitis Past Surgical History: Reports: Hx Appendectomy, Hx Section, Hx Cholecystectomy, Hx Orthopedic Surgery - R knee, Hx Tonsillectomy - Immunizations Immunizations up to date: Yes Hx Diphtheria, Pertussis, Tetanus Vaccination: Yes Hx Pneumococcal Vaccination: 03/20/14 Review of Systems - Review of Systems Constitutional: No symptoms reported EENT: No symptoms reported Cardiovascular: See HPI, Chest pain Respiratory: No symptoms reported. denies: Short of breath Gastrointestinal: No symptoms reported Genitourinary: See HPI Female Genitourinary: No symptoms reported Musculoskeletal: See HPI Skin: No symptoms reported Hematologic/Lymphatic: No symptoms reported Neurological/Psychological: No symptoms reported -: Yes All other systems reviewed and negative Physical Exam - Vital signs Vitals: Temp Pulse Resp BP Pulse Ox 99.1 F 64 24 H 97/67 L 100 11/19/18 22:30 11/19/18 22:30 11/19/18 22:30 11/19/18 22:30 11/19/18 22:30 - Notes Notes: GENERAL: Alert, interacts well. No acute distress. HEAD: Normocephalic, atraumatic. EYES: Pupils equal, round, and reactive to light. Extraocular movements intact. ENT: Oral mucosa moist, tongue midline. NECK: Full range of motion. Supple. Trachea midline. LUNGS: Clear to auscultation bilaterally, no wheezes, rales, or rhonchi. No respiratory distress. Port noted to the left side of the chest. HEART: Regular rate and rhythm. No murmurs, gallops, or rubs. ABDOMEN: Soft, diffuse mild tenderness to palpation, worse epigastrically. Non- distended. Bowel sounds present in all 4 quadrants. No guarding, rigidity, or rebound. EXTREMITIES: Moves all 4 extremities spontaneously. No edema, radial and dorsalis pedis pulses 2/4 bilaterally. No cyanosis. NEUROLOGICAL: Alert and oriented x3. Normal speech. PSYCH: Normal affect, normal mood. SKIN: Warm, dry, normal turgor. No rashes or lesions noted. Course - Re-evaluation Re-evalutation: 11/20/18 01:54 CBC reveals chronic anemia with hemoglobin 8.4, better than prior visit, reticulocyte counts are both actually normal, CMP reveals low CO2 at 20, total and direct bilirubin are both chronically elevated at 4.8 and 0.8, similarly she has elevated AST and alkaline phosphatase which is a chronic finding for her, cardiac enzymes negative, proBNP pretty normal at 120, significantly lower than when she had to be transferred to [facility], lipase normal, urinalysis shows trace leukocyte esterase, only 1 WBC and no squamous epithelial cells. This does not appear to be consistent with urinary tract infection, will be sent for culture. Chest x-ray is pending, EKG is nonischemic. Patient will be treated with fluids for hydration and pain medication and be reevaluated. Currently no evidence of acute chest syndrome. 11/20/18 03:02 Chest x-ray does not show any pulmonary edema. Patient is having no respiratory distress at this time. Adding oxygen has not decreased her pain. Patient is actually complaining of increased pain since going to radiology despite having had 2 doses of Dilaudid. Patient is rechecked and currently does appear somewhat uncomfortable wincing while I talked to her. We will try 1 more dose of Dilaudid through the IV and she request that we had Benadryl to this as she states that with Dr. Roberson typically does and it has helped her in the past. We will try this and then reevaluate. 11/20/18 06:33 Patient's pain is still not controlled, I have discussed the patient with Dr. Martinez, who is covering for Dr. Roberson who accepts the patient to the floor but also requests that I try and call Dr. Roberson at 7:00 to tell him about the patient. The grain wafer machine operator does tell me that he does not start taking his own call until 8 AM however I will still try to call him at [address] Martinez's request. 11/20/18 07:24 Dr. Mccabe did not answer when we called him at 710, he is not officially receiving his own calls again until 8 AM although I did try to contact him as requested by Dr. Martinez at 7 AM. Patient remains stable. - Vital Signs Vital signs: Temp Pulse Resp BP Pulse Ox 99.1 F 64 24 H 97/67 L 100 11/19/18 22:30 11/19/18 22:30 11/19/18 22:30 11/19/18 22:30 11/19/18 22:30 - Laboratory Result Diagrams: 11/20/18 00:24 11/20/18 00:24 Laboratory results interpreted by me: 11/20/18 11/20/18 11/20/18 00:24 00:24 00:24 RBC 1.94 L Hgb 8.4 L Hct 23.9 L MCV 123 H MCH 43.4 H RDW 27.3 H Chloride 110 H Carbon Dioxide 20 L Total Bilirubin 4.8 H Direct Bilirubin 0.8 H AST 60 H Alkaline Phosphatase 155 H Creatine Kinase < 20 L Total Protein 8.6 H Urine Urobilinogen Ur Leukocyte Esterase 11/20/18 00:47 RBC Hgb Hct MCV MCH RDW Chloride Carbon Dioxide Total Bilirubin Direct Bilirubin AST Alkaline Phosphatase Creatine Kinase Total Protein Urine Urobilinogen 2.0 H Ur Leukocyte Esterase TRACE H - EKG Interpretation by Me Additional EKG results interpreted by me: 11/20/18 01:55 EKG shows sinus rhythm at a rate of 68, normal axis, normal intervals, no ST segment elevations or depressions, isolated T wave inversions in lead III, T w ave flattening in V2 per my interpretation. Discharge - Discharge Clinical Impression: Sickle cell crisis Condition: Good Disposition: ADMITTED INPATIENT [facility]: Telemetry I personally performed the services described in the documentation, reviewed and edited the documentation which was dictated to the scribe in my presence, and it accurately records my words and actions.
--- NOTE | 2018-11-20 07:29 | EKG REPORT ---
SEVERITY:- NORMAL ECG - SINUS RHYTHM : Confirmed by: Killian Moraes MD 20-Nov-2018 07:27:46
[2018-11-20 09:36] LABS: INTERNATIONAL RATION (INR) 1.32; PROTHROMBIN TIME 17.1 SEC (11.4-15.4)
[2018-11-20 09:37] LABS: PARTIAL THROMBOPLASTIN TIME 29.6 SEC (23.5-35.8)
[2018-11-20 09:50] LABS: LIPASE 112.7 U/L (23-300); PHOSPHORUS 3.3 mg/dL (2.5-4.5)
[2018-11-20 10:11] LABS: FREE T4 (FREE THYROXINE) 1.02 ng/dL (0.78-2.19)
[2018-11-20 10:12] LABS: TROPONIN I < 0.012 ng/mL
[2018-11-20 10:18] LABS: CREATINE KINASE MB < 0.22 ng/mL (<4.55)
[2018-11-20 10:25] LABS: THYROID STIMULATING HORMONE 1.79 uIU/mL (0.47-4.68)
[2018-11-20] MEDS: NORMAL SALINE 1000 ML 1,000 ML IV PRN ×2 (10:37→17:33)
[2018-11-20] MEDS: HYDROMORPHONE HCL INJ/PF 2 MG/ML AMPULE IV PRN ×4 (11:27→23:34)
[2018-11-20 13:21] LABS: URINE AMPHETAMINES SCREEN NEGATIVE; URINE BARBITURATES SCREEN NEGATIVE; URINE BENZODIAZEPINES SCREEN NEGATIVE; URINE COCAINE SCREEN NEGATIVE; URINE MARIJUANA (THC) SCREEN NEGATIVE; URINE METHADONE SCREEN NEGATIVE; URINE PHENCYCLIDINE SCREEN NEGATIVE
[2018-11-20 15:43] LABS: CREATINE KINASE MB < 0.22 ng/mL (<4.55); TROPONIN I < 0.012 ng/mL
[2018-11-20] MEDS: CIPROFLOXACIN 400 MG/D5W RTU 400 MG/200 ML RTUPB IV SCH (18:13)
[2018-11-20] MEDS: DIPHENHYDRAMINE HCL 50 MG/ML VIAL IV PRN ×2 (18:13→22:15)
--- NOTE | 2018-11-20 21:24 | PDOC H&P ---
History of Present Illness Admission Date/PCP: 11/20/18 06:57 HOMA BARRAZA MD History of Present Illness: WILLIE ALAN is a 48 year old female,She came to emergency room for ev aluation of generalized body pains, urinary symptoms, recently discharged from [facility]. The last time she presented to the emergency room she was diagnosed with diffuse infiltrate of the chest, I assume they were concerned about acute chest syndrome she was then transferred to [place] for evaluation. She was not treated with exchange blood transfusion. She recently has increased ED visit for evaluation of bone pains which typically is felt to be due to acute vaso-occlusive crisis when she arrived in the ER, she was febrile to temperature recorded was 99.1, the blood pressure was on the low side 97/67, she also has urinary symptoms frequency of urination and urgency. 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 Past Surgical History Past Surgical History: Reports: Appendectomy, Section, Cholecystectomy, Orthopedic Surgery - R knee, Tonsillectomy Social History Smoking Status: Never Smoker Frequency of Alcohol Use: None Hx Recreational Drug Use: No Drugs: None Hx Prescription Drug Abuse: No Family History Family History: Reviewed & Not Pertinent Parental Family History Reviewed: Yes Children Family History Reviewed: Yes Sibling(s) Family History Reviewed.: Yes Medication/Allergy Home Medications: Epoetin Federico [Procrit Inj 40,000 Unit/1 ml Vial (Renal)] 60,000 unit SQ FR 11/20/18 Folic Acid [Folvite 1 mg Tablet] 1 mg PO DAILY 11/20/18 Gabapentin [Neurontin 300 mg Capsule] 300 mg PO Q8 11/20/18 Hydroxyurea [Hydrea 500 mg Capsule] 500 mg PO TID 11/20/18 Multivitamin [Multiple Vitamins] 1 tab PO DAILY 11/20/18 Oxycodone HCl [Oxycodone HCl 10 MG Tablet] 10 mg PO Q6HP PRN 11/20/18 Oxycodone HCl [Oxycontin] 30 mg PO Q12 11/20/18 Promethazine HCl [Phenergan 25 mg Tablet] 25 mg PO Q6HP PRN 11/20/18 Rivaroxaban [Xarelto] 20 mg PO QPM 11/20/18 Allergies/Adverse Reactions: doxycycline [Doxycycline] Allergy (Severe, Verified 08/03/18 12:34) Review of Systems Constitutional: ABSENT: chills, fever(s), headache(s), weight gain, weight loss Eyes: ABSENT: visual disturbances Ears: ABSENT: hearing changes Cardiovascular: ABSENT: chest pain, dyspnea on exertion, edema, orthropnea, palpitations Respiratory: ABSENT: cough, hemoptysis Gastrointestinal: ABSENT: abdominal pain, constipation, diarrhea, hematemesis, hematochezia, nausea, vomiting Genitourinary: ABSENT: dysuria, hematuria Musculoskeletal: PRESENT: back pain. ABSENT: joint swelling Integumentary: ABSENT: rash, wounds Neurological: ABSENT: abnormal gait, abnormal speech, confusion, dizziness, fo kristin weakness, syncope Psychiatric: ABSENT: anxiety, depression, homidical ideation, suicidal ideation Endocrine: ABSENT: cold intolerance, heat intolerance, menstrual abnormalities, polydipsia, polyuria Hematologic/Lymphatic: ABSENT: easy bleeding, easy bruising, lymphadenopathy Physical Exam Vital Signs: Temp Pulse Resp BP Pulse Ox 99.0 F 72 16 108/57 L 99 11/20/18 19:31 11/20/18 19:31 11/20/18 19:31 11/20/18 19:31 11/20/18 19:31 Intake & Output 11/19/18 11/20/18 11/21/18 06:59 06:59 06:59 Intake Total 1999 1032 Balance 1999 1032 Weight 66.224 kg General appearance: PRESENT: mild distress Head exam: PRESENT: atraumatic, normocephalic Eye exam: PRESENT: PERRLA Ear exam: PRESENT: normal external ear exam Mouth exam: PRESENT: moist, tongue midline Neck exam: PRESENT: full ROM Respiratory exam: PRESENT: clear to auscultation carolyn Cardiovascular exam: PRESENT: RRR, +S1, +S2 Pulses: PRESENT: normal dorsalis pedis pul, +2 pedal pulses bilateral Vascular exam: PRESENT: normal capillary refill GI/Abdominal exam: PRESENT: normal bowel sounds, soft Rectal exam: PRESENT: deferred Neurological exam: PRESENT: alert, CN II-XII grossly intact Psychiatric exam: PRESENT: appropriate affect, normal mood Skin exam: PRESENT: dry, intact, warm. ABSENT: cyanosis, rash Results Laboratory Results: 11/20/18 00:24 11/20/18 00:24 11/20/18 11/20/18 11/20/18 00:24 00:24 00:24 WBC 5.4 RBC 1.94 L Hgb 8.4 L Hct 23.9 L MCV 123 H MCH 43.4 H MCHC 35.2 RDW 27.3 H Plt Count 287 Seg Neutrophils % Not Reportable Lymphocytes % Not Reportable Monocytes % Not Reportable Eosinophils % Not Reportable Basophils % Not Reportable Absolute Neutrophils Not Reportable Absolute Lymphocytes Not Reportable Absolute Monocytes Not Reportable Absolute Eosinophils Not Reportable Absolute Basophils Not Reportable Retic Count (auto) 2.68 Absolute Retic 0.052 Sodium 139.4 Potassium 3.8 Chloride 110 H Carbon Dioxide 20 L Anion Gap 9 BUN 8 Creatinine 0.55 Est GFR ( Amer) > 60 Est GFR (Non-Af Amer) > 60 Glucose 107 Calcium 9.9 Phosphorus Magnesium Total Bilirubin 4.8 H AST 60 H ALT 46 Alkaline Phosphatase 155 H Ammonia Total Protein 8.6 H Albumin 4.8 Amylase Lipase 165.7 TSH Free T4 Urine Color Urine Appearance Urine pH Ur Specific [place] Urine Protein Urine Glucose (UA) Urine Ketones Urine Blood Urine Nitrite Ur Leukocyte Esterase Urine WBC (Auto) 11/20/18 11/20/18 11/20/18 00:47 09:15 09:15 WBC RBC Hgb Hct MCV MCH MCHC RDW Plt Count Seg Neutrophils % Lymphocytes % Monocytes % Eosinophils % Basophils % Absolute Neutrophils Absolute Lymphocytes Absolute Monocytes Absolute Eosinophils Absolute Basophils Retic Count (auto) Absolute Retic Sodium Potassium Chloride Carbon Dioxide Anion Gap BUN Creatinine Est GFR ( Amer) Est GFR (Non-Af Amer) Glucose Calcium Phosphorus 3.3 Magnesium 1.7 Total Bilirubin AST ALT Alkaline Phosphatase Ammonia 23.8 Total Protein Albumin Amylase 61 Lipase 112.7 TSH Free T4 Urine Color YELLOW Urine Appearance CLEAR Urine pH 6.0 Ur Specific [place] 1.012 Urine Protein NEGATIVE Urine Glucose (UA) NEGATIVE Urine Ketones NEGATIVE Urine Blood NEGATIVE Urine Nitrite NEGATIVE Ur Leukocyte Esterase TRACE H Urine WBC (Auto) 1 11/20/18 09:15 WBC RBC Hgb Hct MCV MCH MCHC RDW Plt Count Seg Neutrophils % Lymphocytes % Monocytes % Eosinophils % Basophils % Absolute Neutrophils Absolute Lymphocytes Absolute Monocytes Absolute Eosinophils Absolute Basophils Retic Count (auto) Absolute Retic Sodium Potassium Chloride Carbon Dioxide Anion Gap BUN Creatinine Est GFR ( Amer) Est GFR (Non-Af Amer) Glucose Calcium Phosphorus Magnesium Total Bilirubin AST ALT Alkaline Phosphatase Ammonia Total Protein Albumin Amylase Lipase TSH 1.79 Free T4 1.02 Urine Color Urine Appearance Urine pH Ur Specific [place] Urine Protein Urine Glucose (UA) Urine Ketones Urine Blood Urine Nitrite Ur Leukocyte Esterase Urine WBC (Auto) 11/20/18 11/20/18 11/20/18 00:24 00:24 09:15 Creatine Kinase < 20 L < 20 L CK-MB (CK-2) < 0.22 Troponin I < 0.012 NT-Pro-B Natriuret Pep 120 11/20/18 11/20/18 11/20/18 09:15 14:50 14:50 Creatine Kinase < 20 L CK-MB (CK-2) < 0.22 < 0.22 Troponin I < 0.012 < 0.012 NT-Pro-B Natriuret Pep Impressions: Chest X-Ray 11/20/18 01:19 IMPRESSION: No acute cardiopulmonary process copyright 2011 [employer]- All Rights Reserved Assessment & Plan - Diagnosis (1) Vaso-occlusive sickle cell crisis Is this a current diagnosis for this admission?: Yes Plan: Patient is admitted for management of vaso-occlusive sickle cell crisis (2) Sickle cell disease Qualifiers: Sickle-cell associated disorders: with unspecified crisis Qualified Code(s): D57.00 - Hb-SS disease with crisis, unspecified; D57.0 - Hb-SS disease with crisis Is this a current diagnosis for this admission?: Yes
[2018-11-20 22:17] LABS: CREATINE KINASE MB < 0.22 ng/mL (<4.55); TROPONIN I < 0.012 ng/mL
[2018-11-20] MEDS ORDERED: ACETAMINOPHEN 325 MG TABLET PO PRN (22:42)
[2018-11-20] MEDS: ONDANSETRON HCL INJ/PF 4 MG/2 ML SDV IV PRN (22:56)
[2018-11-21] MEDS: HYDROMORPHONE HCL INJ/PF 2 MG/ML AMPULE IV PRN ×6 (03:45→23:48)
[2018-11-21] MEDS: DIPHENHYDRAMINE HCL 50 MG/ML VIAL IV PRN ×6 (03:45→23:48)
[2018-11-21 04:55] LABS: MEAN CORPUSCULAR HEMOGLOBIN 43.1 pg (27.0-33.4); MEAN CORPUSCULAR VOLUME 123 fl (80-97); PLATELET COUNT 265 10^3/uL (150-450); RED CELL DISTRIBUTION WIDTH 27.3 % (11.5-14.0); WHITE BLOOD COUNT 3.5 10^3/uL (4.0-10.5)
[2018-11-21 04:59] LABS: ALANINE AMINOTRANSFERASE 45 U/L (9-52); ALBUMIN 4.2 g/dL (3.5-5.0); ALKALINE PHOSPHATASE 112 U/L (38-126); ANION GAP 11 (5-19); ASPARTATE AMINO TRANSFERASE 44 U/L (14-36); BILIRUBIN,DIRECT 0.6 mg/dL (0.0-0.4); BILIRUBIN,TOTAL 4.3 mg/dL (0.2-1.3); BLOOD UREA NITROGEN 6 mg/dL (7-20); CALCIUM 9.1 mg/dL (8.4-10.2); CARBON DIOXIDE 23 mmol/L (22-30); CHLORIDE 108 mmol/L (98-107); GLUCOSE 118 mg/dL (75-110); POTASSIUM 3.8 mmol/L (3.6-5.0); SODIUM 141.5 mmol/L (137-145); TOTAL PROTEIN 7.3 g/dL (6.3-8.2)
[2018-11-21 05:07] LABS: HEMOGLOBIN 7.4 g/dL (12.0-15.5)
[2018-11-21] MEDS: CIPROFLOXACIN 400 MG/D5W RTU 400 MG/200 ML RTUPB IV SCH ×2 (05:48→17:07)
[2018-11-21 06:33] LABS: ABSOLUTE MONOCYTES # (MANUAL) 0.2 10^3/uL (0.1-1.4); BAND NEUTROPHILS % (MANUAL) 1 % (3-5); BASOPHILS % (MANUAL) 0 % (0-2); EOSINOPHILS % (MANUAL) 3 % (0-6); LYMPHOCYTES % (MANUAL) 29 % (13-45); MONOCYTES % (MANUAL) 6 % (3-13); NUCLEATED RED BLOOD CELLS 4 /100 WBC (0); SEGMENTED NEUTROPHILS % (MAN) 61 % (42-78); TOTAL CELLS COUNTED 100
[2018-11-21 06:39] LABS: ANISOCYTOSIS 4+; BURR CELLS SLIGHT; HYPOCHROMASIA 1+; POIKILOCYTOSIS 2+; POLYCHROMASIA SLIGHT
[2018-11-21 06:40] LABS: HOWELL-JOLLY BODIES PRESENT; OVALOCYTES 1+; PAPPENHEIMER BODIES PRESENT; PLATELET COMMENT ADEQUATE; SCHISTOCYTES SLIGHT; SICKLE RED CELLS SLIGHT; STOMATOCYTES 1+; TARGET CELLS 1+
[2018-11-21] MEDS: ONDANSETRON HCL INJ/PF 4 MG/2 ML SDV IV PRN ×3 (07:41→23:48)
[2018-11-21] MEDS: NORMAL SALINE 1000 ML 1,000 ML IV PRN ×3 (09:34→19:53)
--- NOTE | 2018-11-21 19:41 | PDOC PROGRESS REPORT ---
Subjective Progress Note for:: 11/21/18 Subjective:: Patient seen by the bedside she continues to complain of pain, she is requesting more pain medication Reason For Visit: SICKLE CELL BONE PAIN CRISIS Physical Exam Vital Signs: Temp Pulse Resp BP Pulse Ox 99.0 F 65 16 101/66 98 11/20/18 23:14 11/20/18 23:14 11/20/18 23:14 11/20/18 23:14 11/20/18 23:14 Intake & Output 11/20/18 11/21/18 11/22/18 06:59 06:59 06:59 Intake Total 1999 2261 157 Output Total 300 Balance 1999 1961 157 Weight 66.224 kg 61.9 kg General appearance: PRESENT: no acute distress Eye exam: PRESENT: PERRLA Respiratory exam: PRESENT: clear to auscultation carolyn Cardiovascular exam: PRESENT: +S1, +S2 GI/Abdominal exam: PRESENT: soft Neurological exam: PRESENT: alert Results Laboratory Results: 11/21/18 04:25 11/21/18 04:25 11/21/18 11/21/18 04:25 04:25 WBC 3.5 L RBC 1.70 L Hgb 7.4 L Hct 21.0 L MCV 123 H MCH 43.1 H MCHC 35.0 RDW 27.3 H Plt Count 265 Seg Neutrophils % Not Reportable Lymphocytes % Not Reportable Monocytes % Not Reportable Eosinophils % Not Reportable Basophils % Not Reportable Absolute Neutrophils Not Reportable Absolute Lymphocytes Not Reportable Absolute Monocytes Not Reportable Absolute Eosinophils Not Reportable Absolute Basophils Not Reportable Sodium 141.5 Potassium 3.8 Chloride 108 H Carbon Dioxide 23 Anion Gap 11 BUN 6 L Creatinine 0.47 L Est GFR ( Amer) > 60 Est GFR (Non-Af Amer) > 60 Glucose 118 H Calcium 9.1 Total Bilirubin 4.3 H AST 44 H ALT 45 Alkaline Phosphatase 112 Total Protein 7.3 Albumin 4.2 11/20/18 11/20/18 11/20/18 00:24 00:24 09:15 Creatine Kinase < 20 L < 20 L CK-MB (CK-2) < 0.22 Troponin I < 0.012 NT-Pro-B Natriuret Pep 120 11/20/18 11/20/18 11/20/18 09:15 14:50 14:50 Creatine Kinase < 20 L CK-MB (CK-2) < 0.22 < 0.22 Troponin I < 0.012 < 0.012 NT-Pro-B Natriuret Pep 11/20/18 11/20/18 21:00 21:26 Creatine Kinase < 20 L CK-MB (CK-2) < 0.22 Troponin I < 0.012 NT-Pro-B Natriuret Pep Impressions: Chest X-Ray 11/20/18 01:19 IMPRESSION: No acute cardiopulmonary process copyright 2011 [employer]- All Rights Reserved Assessment & Plan - Diagnosis (1) Vaso-occlusive sickle cell crisis Is this a current diagnosis for this admission?: Yes (2) Sickle cell disease Qualifiers: Sickle-cell associated disorders: with unspecified crisis Qualified Code(s): D57.00 - Hb-SS disease with crisis, unspecified; D57.0 - Hb-SS disease with crisis Is this a current diagnosis for this admission?: Yes (3) Urinary tract infection Qualifiers: Encounter type: subsequent encounter Is this a current diagnosis for this admission?: Yes Plan: continue treatment with IV antibiotic
[2018-11-22] MEDS: DIPHENHYDRAMINE HCL 50 MG/ML VIAL IV PRN ×5 (03:54→20:28)
[2018-11-22] MEDS: HYDROMORPHONE HCL INJ/PF 2 MG/ML AMPULE IV PRN ×5 (03:54→20:29)
[2018-11-22] MEDS: NORMAL SALINE 1000 ML 1,000 ML IV PRN ×3 (03:55→23:06)
[2018-11-22 04:43] LABS: ABSOLUTE RETICS # 0.055 10^6/uL (0.028-0.122); HEMATOCRIT 19.9 % (36.0-47.0); MEAN CORPUSCULAR HGB CONC 35.6 g/dL (32.0-36.0); MEAN CORPUSCULAR VOLUME 124 fl (80-97); PLATELET COUNT 262 10^3/uL (150-450); RED BLOOD COUNT 1.61 10^6/uL (3.72-5.28); RETICULOCYTE COUNT (AUTO) 3.38 % (0.66-2.85); WHITE BLOOD COUNT 5.8 10^3/uL (4.0-10.5)
[2018-11-22 04:45] LABS: ALANINE AMINOTRANSFERASE 39 U/L (9-52); ALBUMIN 3.9 g/dL (3.5-5.0); ALKALINE PHOSPHATASE 100 U/L (38-126); ANION GAP 8 (5-19); ASPARTATE AMINO TRANSFERASE 41 U/L (14-36); BILIRUBIN,DIRECT 0.7 mg/dL (0.0-0.4); BILIRUBIN,TOTAL 4.4 mg/dL (0.2-1.3); BLOOD UREA NITROGEN 5 mg/dL (7-20); CALCIUM 9.2 mg/dL (8.4-10.2); CARBON DIOXIDE 22 mmol/L (22-30); CHLORIDE 111 mmol/L (98-107); GLUCOSE 94 mg/dL (75-110); POTASSIUM 3.7 mmol/L (3.6-5.0); SODIUM 141.3 mmol/L (137-145); TOTAL PROTEIN 6.8 g/dL (6.3-8.2)
[2018-11-22 04:48] LABS: HEMOGLOBIN 7.1 g/dL (12.0-15.5)
[2018-11-22] MEDS: CIPROFLOXACIN 400 MG/D5W RTU 400 MG/200 ML RTUPB IV SCH (05:15)
[2018-11-22 05:51] LABS: ABSOLUTE LYMPHOCYTES# (MANUAL) 3.7 10^3/uL (0.5-4.7); ABSOLUTE MONOCYTES # (MANUAL) 0.1 10^3/uL (0.1-1.4); BASOPHILS % (MANUAL) 0 % (0-2); EOSINOPHILS % (MANUAL) 2 % (0-6); LYMPHOCYTES % (MANUAL) 60 % (13-45); MONOCYTES % (MANUAL) 2 % (3-13); NUCLEATED RED BLOOD CELLS 4 /100 WBC (0); SEGMENTED NEUTROPHILS % (MAN) 32 % (42-78); TOTAL CELLS COUNTED 100
[2018-11-22 05:59] LABS: ANISOCYTOSIS 3+; POIKILOCYTOSIS 1+; POLYCHROMASIA SLIGHT
[2018-11-22 06:00] LABS: HOWELL-JOLLY BODIES PRESENT; OVALOCYTES 1+; PAPPENHEIMER BODIES PRESENT; PLATELET COMMENT ADEQUATE; SCHISTOCYTES 1+; SICKLE RED CELLS SLIGHT; STOMATOCYTES 1+; TARGET CELLS 1+
[2018-11-22] MEDS: ONDANSETRON HCL INJ/PF 4 MG/2 ML SDV IV PRN ×2 (12:22→20:28)
[2018-11-22] MEDS: AMPICILLIN SODIUM 1 GM in NORMAL SALINE 50 ML IV SCH ×3 (15:00→23:07)
[2018-11-23] MEDS: DIPHENHYDRAMINE HCL 50 MG/ML VIAL IV PRN ×6 (00:32→20:58)
[2018-11-23] MEDS: HYDROMORPHONE HCL INJ/PF 2 MG/ML AMPULE IV PRN ×6 (00:32→20:57)
[2018-11-23] MEDS: ONDANSETRON HCL INJ/PF 4 MG/2 ML SDV IV PRN ×2 (04:35→12:48)
[2018-11-23 04:57] LABS: HEMATOCRIT 20.3 % (36.0-47.0); MEAN CORPUSCULAR HEMOGLOBIN 43.5 pg (27.0-33.4); MEAN CORPUSCULAR HGB CONC 34.9 g/dL (32.0-36.0); MEAN CORPUSCULAR VOLUME 125 fl (80-97); PLATELET COUNT 259 10^3/uL (150-450); RED BLOOD COUNT 1.63 10^6/uL (3.72-5.28); RED CELL DISTRIBUTION WIDTH 26.1 % (11.5-14.0)
[2018-11-23 05:05] LABS: ALANINE AMINOTRANSFERASE 45 U/L (9-52); ALBUMIN 3.8 g/dL (3.5-5.0); ALKALINE PHOSPHATASE 124 U/L (38-126); ANION GAP 10 (5-19); ASPARTATE AMINO TRANSFERASE 37 U/L (14-36); BILIRUBIN,DIRECT 0.5 mg/dL (0.0-0.4); BLOOD UREA NITROGEN 7 mg/dL (7-20); CALCIUM 8.8 mg/dL (8.4-10.2); CARBON DIOXIDE 24 mmol/L (22-30); CHLORIDE 109 mmol/L (98-107); GLUCOSE 93 mg/dL (75-110); POTASSIUM 3.4 mmol/L (3.6-5.0); SODIUM 142.6 mmol/L (137-145); TOTAL PROTEIN 6.4 g/dL (6.3-8.2)
[2018-11-23 05:07] LABS: HEMOGLOBIN 7.1 g/dL (12.0-15.5)
[2018-11-23] MEDS: AMPICILLIN SODIUM 1 GM in NORMAL SALINE 50 ML IV SCH ×3 (05:11→17:14)
[2018-11-23 05:26] LABS: ABSOLUTE LYMPHOCYTES# (MANUAL) 2.5 10^3/uL (0.5-4.7); ABSOLUTE MONOCYTES # (MANUAL) 0.2 10^3/uL (0.1-1.4); BASOPHILS % (MANUAL) 1 % (0-2); EOSINOPHILS % (MANUAL) 8 % (0-6); LYMPHOCYTES % (MANUAL) 49 % (13-45); MONOCYTES % (MANUAL) 4 % (3-13); NUCLEATED RED BLOOD CELLS 3 /100 WBC (0); SEGMENTED NEUTROPHILS % (MAN) 37 % (42-78); TOTAL CELLS COUNTED 100
[2018-11-23 05:29] LABS: BURR CELLS SLIGHT; HOWELL-JOLLY BODIES PRESENT; OVALOCYTES 2+; PAPPENHEIMER BODIES PRESENT; PLATELET COMMENT ADEQUATE; SCHISTOCYTES 1+; SICKLE RED CELLS SLIGHT; TARGET CELLS 1+; TEAR DROP CELLS SLIGHT
[2018-11-23 05:30] LABS: ANISOCYTOSIS 3+; HYPOCHROMASIA SLIGHT; POIKILOCYTOSIS 2+; POLYCHROMASIA SLIGHT
[2018-11-23] MEDS: NORMAL SALINE 1000 ML 1,000 ML IV PRN ×2 (08:29→17:14)
--- NOTE | 2018-11-23 19:44 | PDOC PROGRESS REPORT ---
Subjective Progress Note for:: 11/22/18 Subjective:: She has seen by the bedside she continues to require Dilaudid Reason For Visit: SICKLE CELL BONE PAIN CRISIS Physical Exam Vital Signs: Temp Pulse Resp BP Pulse Ox 98.9 F 70 18 97/56 L 100 11/23/18 15:50 11/23/18 15:50 11/23/18 15:50 11/23/18 15:50 11/23/18 15:50 Intake & Output 11/22/18 11/23/18 11/24/18 06:59 06:59 06:59 Intake Total 3544 3564 3024 Balance 3546 3561 302 Weight 61.9 kg 61.9 kg General appearance: PRESENT: no acute distress Eye exam: PRESENT: PERRLA Respiratory exam: PRESENT: clear to auscultation carolyn Cardiovascular exam: PRESENT: +S1, +S2 Neurological exam: PRESENT: alert Results Laboratory Results: 11/23/18 04:30 11/23/18 04:30 11/23/18 11/23/18 04:30 04:30 WBC 5.0 RBC 1.63 L Hgb 7.1 L Hct 20.3 L MCV 125 H MCH 43.5 H MCHC 34.9 RDW 26.1 H Plt Count 259 Seg Neutrophils % Not Reportable Lymphocytes % Not Reportable Monocytes % Not Reportable Eosinophils % Not Reportable Basophils % Not Reportable Absolute Neutrophils Not Reportable Absolute Lymphocytes Not Reportable Absolute Monocytes Not Reportable Absolute Eosinophils Not Reportable Absolute Basophils Not Reportable Sodium 142.6 Potassium 3.4 L Chloride 109 H Carbon Dioxide 24 Anion Gap 10 BUN 7 Creatinine 0.56 Est GFR ( Amer) > 60 Est GFR (Non-Af Amer) > 60 Glucose 93 Calcium 8.8 Total Bilirubin 4.0 H AST 37 H ALT 45 Alkaline Phosphatase 124 Total Protein 6.4 Albumin 3.8 11/20/18 11/20/18 11/20/18 00:24 00:24 09:15 Creatine Kinase < 20 L < 20 L CK-MB (CK-2) < 0.22 Troponin I < 0.012 NT-Pro-B Natriuret Pep 120 11/20/18 11/20/18 11/20/18 09:15 14:50 14:50 Creatine Kinase < 20 L CK-MB (CK-2) < 0.22 < 0.22 Troponin I < 0.012 < 0.012 NT-Pro-B Natriuret Pep 11/20/18 11/20/18 21:00 21:26 Creatine Kinase < 20 L CK-MB (CK-2) < 0.22 Troponin I < 0.012 NT-Pro-B Natriuret Pep Impressions: Chest X-Ray 11/20/18 01:19 IMPRESSION: No acute cardiopulmonary process copyright 2011 [employer]- All Rights Reserved Assessment & Plan - Diagnosis (1) Vaso-occlusive sickle cell crisis Is this a current diagnosis for this admission?: Yes (2) Sickle cell disease Qualifiers: Sickle-cell associated disorders: with unspecified crisis Qualified Code(s): D57.00 - Hb-SS disease with crisis, unspecified; D57.0 - Hb-SS disease with crisis Is this a current diagnosis for this admission?: Yes (3) Urinary tract infection Qualifiers: Encounter type: subsequent encounter Is this a current diagnosis for this admission?: Yes (4) Urinary tract infection due to Enterococcus Is this a current diagnosis for this admission?: Yes Plan: Start IV ampicillin
--- NOTE | 2018-11-23 19:50 | PDOC PROGRESS REPORT ---
Subjective Progress Note for:: 11/23/18 Subjective:: Patient seen by the bedside, she complained of lower abdominal pain probably for UTI Reason For Visit: SICKLE CELL BONE PAIN CRISIS Physical Exam Vital Signs: Temp Pulse Resp BP Pulse Ox 98.9 F 70 18 97/56 L 100 11/23/18 15:50 11/23/18 15:50 11/23/18 15:50 11/23/18 15:50 11/23/18 15:50 Intake & Output 11/22/18 11/23/18 11/24/18 06:59 06:59 06:59 Intake Total 3544 3564 3029 Balance 3544 3564 3026 Weight 61.9 kg 61.9 kg General appearance: PRESENT: no acute distress Eye exam: PRESENT: PERRLA Respiratory exam: PRESENT: clear to auscultation carolyn Cardiovascular exam: PRESENT: +S1, +S2 GI/Abdominal exam: PRESENT: soft Neurological exam: PRESENT: alert Results Laboratory Results: 11/23/18 04:30 11/23/18 04:30 11/23/18 11/23/18 04:30 04:30 WBC 5.0 RBC 1.63 L Hgb 7.1 L Hct 20.3 L MCV 125 H MCH 43.5 H MCHC 34.9 RDW 26.1 H Plt Count 259 Seg Neutrophils % Not Reportable Lymphocytes % Not Reportable Monocytes % Not Reportable Eosinophils % Not Reportable Basophils % Not Reportable Absolute Neutrophils Not Reportable Absolute Lymphocytes Not Reportable Absolute Monocytes Not Reportable Absolute Eosinophils Not Reportable Absolute Basophils Not Reportable Sodium 142.6 Potassium 3.4 L Chloride 109 H Carbon Dioxide 24 Anion Gap 10 BUN 7 Creatinine 0.56 Est GFR ( Amer) > 60 Est GFR (Non-Af Amer) > 60 Glucose 93 Calcium 8.8 Total Bilirubin 4.0 H AST 37 H ALT 45 Alkaline Phosphatase 124 Total Protein 6.4 Albumin 3.8 11/20/18 11/20/18 11/20/18 00:24 00:24 09:15 Creatine Kinase < 20 L < 20 L CK-MB (CK-2) < 0.22 Troponin I < 0.012 NT-Pro-B Natriuret Pep 120 11/20/18 11/20/18 11/20/18 09:15 14:50 14:50 Creatine Kinase < 20 L CK-MB (CK-2) < 0.22 < 0.22 Troponin I < 0.012 < 0.012 NT-Pro-B Natriuret Pep 11/20/18 11/20/18 21:00 21:26 Creatine Kinase < 20 L CK-MB (CK-2) < 0.22 Troponin I < 0.012 NT-Pro-B Natriuret Pep Impressions: Chest X-Ray 11/20/18 01:19 IMPRESSION: No acute cardiopulmonary process copyright 2011 [employer]- All Rights Reserved Assessment & Plan - Diagnosis (1) Vaso-occlusive sickle cell crisis Is this a current diagnosis for this admission?: Yes Plan: continue treatment (2) Sickle cell disease Qualifiers: Sickle-cell associated disorders: with unspecified crisis Qualified Code(s): D57.00 - Hb-SS disease with crisis, unspecified; D57.0 - Hb-SS disease with crisis Is this a current diagnosis for this admission?: Yes (3) Urinary tract infection Qualifiers: Encounter type: subsequent encounter Is this a current diagnosis for this admission?: Yes (4) Urinary tract infection due to Enterococcus Is this a current diagnosis for this admission?: Yes Plan: continue IV ampicillin
[2018-11-24] MEDS: HYDROMORPHONE HCL INJ/PF 2 MG/ML AMPULE IV PRN ×6 (00:57→21:53)
[2018-11-24] MEDS: DIPHENHYDRAMINE HCL 50 MG/ML VIAL IV PRN ×6 (00:58→21:54)
[2018-11-24] MEDS: NORMAL SALINE 1000 ML 1,000 ML IV PRN ×2 (02:00→17:00)
[2018-11-24] MEDS: AMPICILLIN SODIUM 1 GM in NORMAL SALINE 50 ML IV SCH ×5 (05:18→17:01)
[2018-11-24] MEDS: ONDANSETRON HCL INJ/PF 4 MG/2 ML SDV IV PRN ×3 (05:19→21:54)
[2018-11-24] MEDS ORDERED: CLOBETASOL PROPIONATE 0.05% CREAM 15 GM TP PRN (18:31)
[2018-11-24] MEDS ORDERED: NORMAL SALINE 1000 ML 1,000 ML with POTASSIUM CHLORIDE 20 MEQ, MAGNESIUM SULFATE 8 MEQ,... IV ONE ×5 (20:00)
--- NOTE | 2018-11-24 20:52 | PDOC PROGRESS REPORT ---
Subjective Progress Note for:: 11/24/18 Subjective:: Patient seen by the bedside no new complaints Reason For Visit: SICKLE CELL BONE PAIN CRISIS Physical Exam Vital Signs: Temp Pulse Resp BP Pulse Ox 99.2 F 76 16 94/56 L 99 11/24/18 20:11 11/24/18 20:11 11/24/18 20:11 11/24/18 20:11 11/24/18 20:11 Intake & Output 11/23/18 11/24/18 11/25/18 06:59 06:59 06:59 Intake Total 3564 4846 1544 Balance 3564 4846 1544 Weight 61.9 kg 61.9 kg General appearance: PRESENT: no acute distress Eye exam: PRESENT: PERRLA Respiratory exam: PRESENT: clear to auscultation carolyn Cardiovascular exam: PRESENT: +S1, +S2 Results Laboratory Results: 11/23/18 04:30 11/23/18 04:30 11/20/18 11/20/18 11/20/18 00:24 00:24 09:15 Creatine Kinase < 20 L < 20 L CK-MB (CK-2) < 0.22 Troponin I < 0.012 NT-Pro-B Natriuret Pep 120 11/20/18 11/20/18 11/20/18 09:15 14:50 14:50 Creatine Kinase < 20 L CK-MB (CK-2) < 0.22 < 0.22 Troponin I < 0.012 < 0.012 NT-Pro-B Natriuret Pep 11/20/18 11/20/18 21:00 21:26 Creatine Kinase < 20 L CK-MB (CK-2) < 0.22 Troponin I < 0.012 NT-Pro-B Natriuret Pep Impressions: Chest X-Ray 11/20/18 01:19 IMPRESSION: No acute cardiopulmonary process copyright 2010 [employer]- All Rights Reserved Assessment & Plan - Diagnosis (1) Vaso-occlusive sickle cell crisis Is this a current diagnosis for this admission?: Yes Plan: continue treatment (2) Sickle cell disease Qualifiers: Sickle-cell associated disorders: with unspecified crisis Qualified Code(s): D57.00 - Hb-SS disease with crisis, unspecified; D57.0 - Hb-SS disease with crisis Is this a current diagnosis for this admission?: Yes (3) Urinary tract infection Qualifiers: Encounter type: subsequent encounter Is this a current diagnosis for this admission?: Yes (4) Urinary tract infection due to Enterococcus Is this a current diagnosis for this admission?: Yes
[2018-11-25] MEDS: AMPICILLIN SODIUM 1 GM in NORMAL SALINE 50 ML IV SCH ×5 (00:47→23:54)
[2018-11-25] MEDS: HYDROMORPHONE HCL INJ/PF 2 MG/ML AMPULE IV PRN ×6 (02:08→22:31)
[2018-11-25] MEDS: DIPHENHYDRAMINE HCL 50 MG/ML VIAL IV PRN ×6 (02:08→22:31)
[2018-11-25] MEDS: ONDANSETRON HCL INJ/PF 4 MG/2 ML SDV IV PRN ×3 (06:03→22:31)
[2018-11-25] MEDS: NORMAL SALINE 1000 ML 1,000 ML IV PRN ×2 (10:13→18:29)
--- NOTE | 2018-11-25 11:15 | PDOC PROGRESS REPORT ---
Subjective Progress Note for:: 11/25/18 Subjective:: Patient reported that most of her preadmission medication have not been administered. No chest pain or difficulty with breathing. Her nausea is currently under control. There is chills with low grade fever. Tolerating oral feeding. Reason For Visit: SICKLE CELL BONE PAIN CRISIS Physical Exam Vital Signs: Temp Pulse Resp BP Pulse Ox 99.3 F 81 18 97/63 L 100 11/25/18 08:01 11/25/18 08:01 11/25/18 08:01 11/25/18 08:01 11/25/18 08:01 Intake & Output 11/24/18 11/25/18 11/26/18 06:59 06:59 06:59 Intake Total 4846 3304 50 Balance 4846 3304 50 Weight 61.9 kg 62.2 kg General appearance: PRESENT: mild distress - due to her sickle cell disease related pain. Head exam: PRESENT: atraumatic, normocephalic Eye exam: PRESENT: conjunctiva pink. ABSENT: scleral icterus Ear exam: PRESENT: normal external ear exam Mouth exam: PRESENT: moist Respiratory exam: PRESENT: clear to auscultation carolyn Cardiovascular exam: PRESENT: RRR. ABSENT: diastolic murmur, rubs, systolic murmur Vascular exam: ABSENT: pallor GI/Abdominal exam: PRESENT: normal bowel sounds, soft. ABSENT: distended, guarding, mass, organolmegaly, rebound, tenderness Extremities exam: PRESENT: tenderness - multiple joints related to SCDx chronic pain. ABSENT: pedal edema Musculoskeletal exam: PRESENT: deformity - related to SCDx arthropathy Neurological exam: PRESENT: alert, awake, oriented to person, oriented to place, oriented to time, oriented to situation, CN II-XII grossly intact. ABSENT: motor sensory deficit Psychiatric exam: PRESENT: appropriate affect, normal mood. ABSENT: homicidal ideation, suicidal ideation Skin exam: PRESENT: dry, warm Results Laboratory Results: 11/23/18 04:30 11/23/18 04:30 11/20/18 11/20/18 11/20/18 00:24 00:24 09:15 Creatine Kinase < 20 L < 20 L CK-MB (CK-2) < 0.22 Troponin I < 0.012 NT-Pro-B Natriuret Pep 120 11/20/18 11/20/18 11/20/18 09:15 14:50 14:50 Creatine Kinase < 20 L CK-MB (CK-2) < 0.22 < 0.22 Troponin I < 0.012 < 0.012 NT-Pro-B Natriuret Pep 11/20/18 11/20/18 21:00 21:26 Creatine Kinase < 20 L CK-MB (CK-2) < 0.22 Troponin I < 0.012 NT-Pro-B Natriuret Pep Impressions: Chest X-Ray 11/20/18 01:19 IMPRESSION: No acute cardiopulmonary process copyright 2010 [employer]- All Rights Reserved Assessment & Plan - Diagnosis (1) Urinary tract infection due to Enterococcus Is this a current diagnosis for this admission?: Yes Plan: Continue IV Ampicillin coverage. (2) Chronic pain syndrome Is this a current diagnosis for this admission?: Yes Plan: Continue current medication management. (3) Vaso-occlusive sickle cell crisis Is this a current diagnosis for this admission?: Yes Plan: Maintain on current medication management. (4) Sickle-cell anemia with crisis Is this a current diagnosis for this admission?: Yes Plan: Restart her preadmission medication as appropriate for SCDx management. - Time Time Spent with patient: 25-34 minutes Medications reviewed and adjusted accordingly: Yes Anticipated discharge: Home with Homehealth Within: Other - Inpatient Certification Based on my medical assessment, after consideration of the patient's comorbidities, presenting symptoms, or acuity I expect that the services needed warrant INPATIENT care.: Yes I certify that my determination is in accordance with my understanding of Medicare's requirements for reasonable and necessary INPATIENT services [42 CFR 412.3e].: Yes Medical Necessity: Significant Comorbidiites Make Outpatient Treatment Too Risky, Need Close Monitoring Due to Risk of Patient Decompensation, Need For IV Fluids, Need For Continuous Telemetry Monitoring, Need for Pain Control, Need for IV Antibiotics, Risk of Complication if Not Cared For in Hospital, Risk of Diagnosis Which Will Require Inpatient Eval/Care/Monitoring Post Hospital Care: 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
[2018-11-25] MEDS: FOLIC ACID 1 MG TABLET PO SCH (12:35)
[2018-11-25] MEDS ORDERED: EPOETIN ALFA INJ 40000 UNIT/1 ML (RENAL) SUBCUT ONE (13:00)
[2018-11-25] MEDS: GABAPENTIN 300 MG CAPSULE PO SCH ×2 (14:24→22:27)
[2018-11-25] MEDS: HYDROXYUREA 500 MG CAPSULE PO SCH ×2 (14:24→18:27)
[2018-11-25] MEDS: MULTIVITAMIN TABLET PO SCH (14:41)
[2018-11-25] MEDS: RIVAROXABAN 10 MG TABLET PO SCH (17:22)
[2018-11-26] MEDS: DIPHENHYDRAMINE HCL 50 MG/ML VIAL IV PRN ×6 (02:23→22:37)
[2018-11-26] MEDS: HYDROMORPHONE HCL INJ/PF 2 MG/ML AMPULE IV PRN ×6 (02:23→22:37)
[2018-11-26] MEDS: NORMAL SALINE 1000 ML 1,000 ML IV PRN ×3 (02:36→22:37)
[2018-11-26] MEDS: GABAPENTIN 300 MG CAPSULE PO SCH ×3 (06:23→22:13)
[2018-11-26] MEDS: AMPICILLIN SODIUM 1 GM in NORMAL SALINE 50 ML IV SCH ×4 (06:23→23:50)
[2018-11-26] MEDS: FOLIC ACID 1 MG TABLET PO SCH (09:00)
[2018-11-26] MEDS: MULTIVITAMIN TABLET PO SCH (09:00)
[2018-11-26] MEDS: HYDROXYUREA 500 MG CAPSULE PO SCH ×2 (09:14→18:02)
[2018-11-26] MEDS: ONDANSETRON HCL INJ/PF 4 MG/2 ML SDV IV PRN ×2 (10:27→18:49)
[2018-11-26] MEDS ORDERED: HYDROXYUREA 500 MG CAPSULE PO ONE (11:00)
--- NOTE | 2018-11-26 14:13 | PDOC PROGRESS REPORT ---
Subjective Progress Note for:: 11/26/18 Subjective:: Patient reported right hand pain and swelling upon waking up this morning. She denied any known trauma but reported that similar event in the past was related to fracture on X ray of the affected hand. No chest pain. Breathing is okay. No fever or chills. Reason For Visit: SICKLE CELL BONE PAIN CRISIS Physical Exam Vital Signs: Temp Pulse Resp BP Pulse Ox 98.8 F 80 18 99/61 L 99 11/26/18 12:00 11/26/18 12:00 11/26/18 12:00 11/26/18 12:00 11/26/18 12:00 Intake & Output 11/25/18 11/26/18 11/27/18 06:59 06:59 06:59 Intake Total 3304 4340 1784 Balance 3304 4340 1784 Weight 62.2 kg 62.5 kg Physical Exam: General appearance: PRESENT: mild distress - due to her sickle cell disease related pain. Head exam: PRESENT: atraumatic, normocephalic Eye exam: PRESENT: conjunctiva pink. ABSENT: scleral icterus Ear exam: PRESENT: normal external ear exam Mouth exam: PRESENT: moist Respiratory exam: PRESENT: clear to auscultation carolyn Cardiovascular exam: PRESENT: RRR. ABSENT: diastolic murmur, rubs, systolic murmur Vascular exam: ABSENT: pallor GI/Abdominal exam: PRESENT: normal bowel sounds, soft. ABSENT: distended, guarding, mass, organomegaly, rebound, tenderness Extremities exam: PRESENT: tenderness - multiple joints related to SCDx chronic pain. ABSENT: pedal edema Musculoskeletal exam: PRESENT: deformity - related to SCDx arthropathy, there is obvious soft tissue swelling in the thenar region with expressed tenderness to palpation. Neurological exam: PRESENT: alert, awake, oriented to person, oriented to place, oriented to time, oriented to situation, CN II-XII grossly intact. ABSENT: mo tor sensory deficit Psychiatric exam: PRESENT: appropriate affect, normal mood. ABSENT: homicidal i deation, suicidal ideation Skin exam: PRESENT: dry, warm Results Laboratory Results: 11/23/18 04:30 11/23/18 04:30 11/20/18 18:21 Blood Blood Culture - Final NO GROWTH IN 5 DAYS 11/20/18 17:45 Blood Blood Culture - Final NO GROWTH IN 5 DAYS 11/20/18 11/20/18 11/20/18 00:24 00:24 09:15 Creatine Kinase < 20 L < 20 L CK-MB (CK-2) < 0.22 Troponin I < 0.012 NT-Pro-B Natriuret Pep 120 11/20/18 11/20/18 11/20/18 09:15 14:50 14:50 Creatine Kinase < 20 L CK-MB (CK-2) < 0.22 < 0.22 Troponin I < 0.012 < 0.012 NT-Pro-B Natriuret Pep 11/20/18 11/20/18 21:00 21:26 Creatine Kinase < 20 L CK-MB (CK-2) < 0.22 Troponin I < 0.012 NT-Pro-B Natriuret Pep Impressions: Chest X-Ray 11/20/18 01:19 IMPRESSION: No acute cardiopulmonary process copyright 2010 [employer]- All Rights Reserved Assessment & Plan - Diagnosis (1) Urinary tract infection due to Enterococcus Is this a current diagnosis for this admission?: Yes (2) Chronic pain syndrome Is this a current diagnosis for this admission?: Yes (3) Vaso-occlusive sickle cell crisis Is this a current diagnosis for this admission?: Yes (4) Sickle-cell anemia with crisis Is this a current diagnosis for this admission?: Yes (5) Localized swelling on right hand Is this a current diagnosis for this admission?: Yes Plan: Obtain X ray evaluation for possible fracture. Continue current pain management regimen. Emphasized avoidance of excessive stress on the affected hand. - Time Time Spent with patient: 25-34 minutes Medications reviewed and adjusted accordingly: Yes Anticipated discharge: Home with Homehealth Within: Other - Inpatient Certification Based on my medical assessment, after consideration of the patient's comorbidities, presenting symptoms, or acuity I expect that the services needed warrant INPATIENT care.: Yes I certify that my determination is in accordance with my understanding of Medicare's requirements for reasonable and necessary INPATIENT services [42 CFR 412.3e].: Yes Medical Necessity: Significant Comorbidiites Make Outpatient Treatment Too Risky, Need Close Monitoring Due to Risk of Patient Decompensation, Need For IV Fluids, Need for Pain Control, Need for IV Antibiotics, Risk of Complication if Not Cared For in Hospital, Risk of Diagnosis Which Will Require Inpatient Eval/Care/Monitoring Post Hospital Care: 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
[2018-11-26 14:59] LABS: HEMATOCRIT 19.5 % (36.0-47.0); MEAN CORPUSCULAR HEMOGLOBIN 43.1 pg (27.0-33.4); MEAN CORPUSCULAR VOLUME 123 fl (80-97); PLATELET COUNT 243 10^3/uL (150-450); RED BLOOD COUNT 1.58 10^6/uL (3.72-5.28); RED CELL DISTRIBUTION WIDTH 25.7 % (11.5-14.0); WHITE BLOOD COUNT 5.3 10^3/uL (4.0-10.5)
[2018-11-26 15:02] LABS: HEMOGLOBIN 6.8 g/dL (12.0-15.5)
--- NOTE | 2018-11-26 15:06 | RADIOLOGY REPORT (SQ) ---
EXAM DESCRIPTION: HAND RIGHT 2 VIEWS COMPLETED DATE/TIME: 11/26/2018 2:43 pm REASON FOR STUDY: swelling and pain COMPARISON: 08/09/2018 EXAM PARAMETERS: NUMBER OF VIEWS: Two view. TECHNIQUE: AP and lateral radiographic images acquired of the right hand. LIMITATIONS: None. FINDINGS: MINERALIZATION: Osteopenia. BONES: No acute fracture or dislocation. No worrisome bone lesions. JOINTS: No effusion. SOFT TISSUES: No significant soft tissue swelling. No radiopaque foreign body. OTHER: No other significant finding. IMPRESSION: NO FRACTURE. TECHNICAL DOCUMENTATION: JOB ID: [id number] [place]-72 2010 [employer]- All Rights Reserved Reading location - IP/workstation name: [email or web address]
[2018-11-26 15:19] LABS: ANION GAP 8 (5-19); BLOOD UREA NITROGEN 8 mg/dL (7-20); CALCIUM 8.9 mg/dL (8.4-10.2); CARBON DIOXIDE 25 mmol/L (22-30); CHLORIDE 107 mmol/L (98-107); GLUCOSE 92 mg/dL (75-110); POTASSIUM 4.2 mmol/L (3.6-5.0); SODIUM 139.6 mmol/L (137-145)
[2018-11-26 15:28] LABS: ABSOLUTE LYMPHOCYTES# (MANUAL) 2.7 10^3/uL (0.5-4.7); ABSOLUTE MONOCYTES # (MANUAL) 0.2 10^3/uL (0.1-1.4); BASOPHILS % (MANUAL) 4 % (0-2); EOSINOPHILS % (MANUAL) 7 % (0-6); LYMPHOCYTES % (MANUAL) 51 % (13-45); MONOCYTES % (MANUAL) 4 % (3-13); NUCLEATED RED BLOOD CELLS 10 /100 WBC (0); SEGMENTED NEUTROPHILS % (MAN) 34 % (42-78); TOTAL CELLS COUNTED 100
[2018-11-26 15:32] LABS: ANISOCYTOSIS 3+; OVALOCYTES 1+; PLATELET COMMENT ADEQUATE; POIKILOCYTOSIS 1+; POLYCHROMASIA SLIGHT; TARGET CELLS SLIGHT
[2018-11-26] MEDS: RIVAROXABAN 10 MG TABLET PO SCH (18:02)
[2018-11-27] MEDS: DIPHENHYDRAMINE HCL 50 MG/ML VIAL IV PRN ×5 (03:29→19:45)
[2018-11-27] MEDS: ONDANSETRON HCL INJ/PF 4 MG/2 ML SDV IV PRN ×2 (03:29→15:48)
[2018-11-27] MEDS: HYDROMORPHONE HCL INJ/PF 2 MG/ML AMPULE IV PRN ×5 (03:29→19:45)
[2018-11-27] MEDS: GABAPENTIN 300 MG CAPSULE PO SCH ×3 (05:16→22:56)
[2018-11-27] MEDS: AMPICILLIN SODIUM 1 GM in NORMAL SALINE 50 ML IV SCH ×3 (05:16→17:15)
[2018-11-27] MEDS: NORMAL SALINE 1000 ML 1,000 ML IV PRN ×2 (05:19→14:10)
[2018-11-27 05:47] LABS: HEMATOCRIT 19.3 % (36.0-47.0); MEAN CORPUSCULAR HGB CONC 34.5 g/dL (32.0-36.0); MEAN CORPUSCULAR VOLUME 125 fl (80-97); PLATELET COUNT 231 10^3/uL (150-450); RED BLOOD COUNT 1.55 10^6/uL (3.72-5.28); RED CELL DISTRIBUTION WIDTH 25.6 % (11.5-14.0)
[2018-11-27 06:02] LABS: HEMOGLOBIN 6.7 g/dL (12.0-15.5)
[2018-11-27 06:06] LABS: ABSOLUTE MONOCYTES # (MANUAL) 0.2 10^3/uL (0.1-1.4); BASOPHILS % (MANUAL) 1 % (0-2); EOSINOPHILS % (MANUAL) 4 % (0-6); LYMPHOCYTES % (MANUAL) 54 % (13-45); MONOCYTES % (MANUAL) 3 % (3-13); NUCLEATED RED BLOOD CELLS 9 /100 WBC (0); SEGMENTED NEUTROPHILS % (MAN) 38 % (42-78); TOTAL CELLS COUNTED 100
[2018-11-27 06:23] LABS: ANISOCYTOSIS 2+; HYPOCHROMASIA 1+; PLATELET COMMENT ADEQUATE; POLYCHROMASIA 1+; SCHISTOCYTES SLIGHT; SICKLE RED CELLS 2+; TARGET CELLS 2+
[2018-11-27 06:25] LABS: WHITE BLOOD COUNT 5.5 10^3/uL (4.0-10.5)
[2018-11-27] MEDS: FOLIC ACID 1 MG TABLET PO SCH (09:00)
[2018-11-27] MEDS: HYDROXYUREA 500 MG CAPSULE PO SCH ×3 (09:00→17:14)
[2018-11-27] MEDS: MULTIVITAMIN TABLET PO SCH (09:00)
[2018-11-27] MEDS: RIVAROXABAN 10 MG TABLET PO SCH (17:14)
--- NOTE | 2018-11-27 18:35 | PDOC PROGRESS REPORT ---
Subjective Progress Note for:: 11/27/18 Subjective:: Patient was seen by the bedside, she continues to complain of pain, the hemoglobin is 6.5, she wants to be transfused, she said whenever she has low hemoglobin she has more pain Reason For Visit: SICKLE CELL BONE PAIN CRISIS Physical Exam Vital Signs: Temp Pulse Resp BP Pulse Ox 99.5 F 82 16 93/57 L 100 11/27/18 15:07 11/27/18 15:07 11/27/18 15:07 11/27/18 15:07 11/27/18 15:07 Intake & Output 11/26/18 11/27/18 11/28/18 06:59 06:59 06:59 Intake Total 4340 4480 1320 Output Total 400 Balance 4340 4480 920 Weight 62.5 kg 63.7 kg General appearance: PRESENT: no acute distress Eye exam: PRESENT: PERRLA Respiratory exam: PRESENT: clear to auscultation carolyn Cardiovascular exam: PRESENT: +S1, +S2 GI/Abdominal exam: PRESENT: soft Neurological exam: PRESENT: alert Results Laboratory Results: 11/27/18 05:20 11/26/18 15:11 11/27/18 05:20 WBC 5.5 RBC 1.55 L Hgb 6.7 L Hct 19.3 L MCV 125 H MCH 43.0 H MCHC 34.5 RDW 25.6 H Plt Count 231 Seg Neutrophils % Not Reportable Lymphocytes % Not Reportable Monocytes % Not Reportable Eosinophils % Not Reportable Basophils % Not Reportable Absolute Neutrophils Not Reportable Absolute Lymphocytes Not Reportable Absolute Monocytes Not Reportable Absolute Eosinophils Not Reportable Absolute Basophils Not Reportable 11/20/18 11/20/18 11/20/18 00:24 00:24 09:15 Creatine Kinase < 20 L < 20 L CK-MB (CK-2) < 0.22 Troponin I < 0.012 NT-Pro-B Natriuret Pep 120 11/20/18 11/20/18 11/20/18 09:15 14:50 14:50 Creatine Kinase < 20 L CK-MB (CK-2) < 0.22 < 0.22 Troponin I < 0.012 < 0.012 NT-Pro-B Natriuret Pep 11/20/18 11/20/18 21:00 21:26 Creatine Kinase < 20 L CK-MB (CK-2) < 0.22 Troponin I < 0.012 NT-Pro-B Natriuret Pep Impressions: Chest X-Ray 11/20/18 01:19 IMPRESSION: No acute cardiopulmonary process copyright 2011 [employer]- All Rights Reserved Hand X-Ray 11/26/18 00:00 IMPRESSION: NO FRACTURE. Assessment & Plan - Diagnosis (1) Vaso-occlusive sickle cell crisis Is this a current diagnosis for this admission?: Yes Plan: continue treatment (2) Sickle cell disease Qualifiers: Sickle-cell associated disorders: with unspecified crisis Qualified Code(s): D57.00 - Hb-SS disease with crisis, unspecified; D57.0 - Hb-SS disease with crisis Is this a current diagnosis for this admission?: Yes (3) Urinary tract infection Qualifiers: Encounter type: subsequent encounter Is this a current diagnosis for this admission?: Yes Plan: continue treatment with IV antibiotic (4) Urinary tract infection due to Enterococcus Is this a current diagnosis for this admission?: Yes Plan: continue IV ampicillin
[2018-11-27] MEDS ORDERED: NORMAL SALINE 250 ML IV PRN ×2 (18:40)
[2018-11-28] MEDS: DIPHENHYDRAMINE HCL 50 MG/ML VIAL IV PRN ×6 (00:27→21:28)
[2018-11-28] MEDS: HYDROMORPHONE HCL INJ/PF 2 MG/ML AMPULE IV PRN ×6 (00:27→21:28)
[2018-11-28] MEDS: ONDANSETRON HCL INJ/PF 4 MG/2 ML SDV IV PRN ×3 (00:27→17:14)
[2018-11-28] MEDS: AMPICILLIN SODIUM 1 GM in NORMAL SALINE 50 ML IV SCH ×4 (00:29→18:03)
[2018-11-28] MEDS: GABAPENTIN 300 MG CAPSULE PO SCH ×3 (05:00→21:28)
[2018-11-28 06:13] LABS: HEMATOCRIT 22.9 % (36.0-47.0); MEAN CORPUSCULAR HGB CONC 34.7 g/dL (32.0-36.0); PLATELET COUNT 216 10^3/uL (150-450); RED BLOOD COUNT 1.99 10^6/uL (3.72-5.28); RED CELL DISTRIBUTION WIDTH 31.8 % (11.5-14.0); WHITE BLOOD COUNT 6.8 10^3/uL (4.0-10.5)
[2018-11-28] MEDS: NORMAL SALINE 1000 ML 1,000 ML IV PRN ×3 (06:39→22:13)
[2018-11-28 07:16] LABS: MEAN CORPUSCULAR VOLUME 115 fl (80-97)
[2018-11-28 07:28] LABS: HEMOGLOBIN 7.9 g/dL (12.0-15.5)
[2018-11-28 07:42] LABS: ABSOLUTE LYMPHOCYTES# (MANUAL) 3.5 10^3/uL (0.5-4.7); ABSOLUTE MONOCYTES # (MANUAL) 0.5 10^3/uL (0.1-1.4); BASOPHILS % (MANUAL) 1 % (0-2); EOSINOPHILS % (MANUAL) 5 % (0-6); LYMPHOCYTES % (MANUAL) 52 % (13-45); MONOCYTES % (MANUAL) 7 % (3-13); NUCLEATED RED BLOOD CELLS 17 /100 WBC (0); SEGMENTED NEUTROPHILS % (MAN) 35 % (42-78); TOTAL CELLS COUNTED 100
[2018-11-28 07:44] LABS: ANISOCYTOSIS 4+; BURR CELLS SLIGHT; HOWELL-JOLLY BODIES PRESENT; OVALOCYTES 1+; PLATELET COMMENT ADEQUATE; POIKILOCYTOSIS 2+; POLYCHROMASIA 1+; SCHISTOCYTES SLIGHT; SICKLE RED CELLS 1+; TARGET CELLS 1+
[2018-11-28] MEDS: FOLIC ACID 1 MG TABLET PO SCH (09:05)
[2018-11-28] MEDS: MULTIVITAMIN TABLET PO SCH (09:05)
[2018-11-28] MEDS: HYDROXYUREA 500 MG CAPSULE PO SCH ×3 (09:06→17:14)
[2018-11-28] MEDS: RIVAROXABAN 10 MG TABLET PO SCH (17:14)
--- NOTE | 2018-11-28 20:51 | PDOC PROGRESS REPORT ---
Subjective Progress Note for:: 11/28/18 Subjective:: she continues to complains of pain ,she was transfused with red blood cells yesterday Reason For Visit: SICKLE CELL BONE PAIN CRISIS Physical Exam Vital Signs: Temp Pulse Resp BP Pulse Ox 99.2 F 76 18 107/66 99 11/28/18 20:00 11/28/18 20:00 11/28/18 20:00 11/28/18 20:00 11/28/18 20:00 Intake & Output 11/27/18 11/28/18 11/29/18 06:59 06:59 06:59 Intake Total 4480 4470 1228 Output Total 400 Balance 4480 4070 1228 Weight 63.7 kg 63.1 kg General appearance: PRESENT: no acute distress Eye exam: PRESENT: PERRLA Respiratory exam: PRESENT: clear to auscultation carolyn Cardiovascular exam: PRESENT: +S1, +S2 GI/Abdominal exam: PRESENT: soft Neurological exam: PRESENT: alert Results Laboratory Results: 11/28/18 05:50 11/26/18 15:11 11/27/18 11/28/18 19:07 05:50 WBC 6.8 RBC 1.99 L Hgb 7.9 L Hct 22.9 L MCV 115 H D MCH 40.0 H MCHC 34.7 RDW 31.8 H Plt Count 216 Seg Neutrophils % Not Reportable Lymphocytes % Not Reportable Monocytes % Not Reportable Eosinophils % Not Reportable Basophils % Not Reportable Absolute Neutrophils Not Reportable Absolute Lymphocytes Not Reportable Absolute Monocytes Not Reportable Absolute Eosinophils Not Reportable Absolute Basophils Not Reportable Blood Type O POSITIVE Antibody Screen NEGATIVE 11/20/18 11/20/18 11/20/18 00:24 00:24 09:15 Creatine Kinase < 20 L < 20 L CK-MB (CK-2) < 0.22 Troponin I < 0.012 NT-Pro-B Natriuret Pep 120 11/20/18 11/20/18 11/20/18 09:15 14:50 14:50 Creatine Kinase < 20 L CK-MB (CK-2) < 0.22 < 0.22 Troponin I < 0.012 < 0.012 NT-Pro-B Natriuret Pep 11/20/18 11/20/18 21:00 21:26 Creatine Kinase < 20 L CK-MB (CK-2) < 0.22 Troponin I < 0.012 NT-Pro-B Natriuret Pep Impressions: Chest X-Ray 11/20/18 01:19 IMPRESSION: No acute cardiopulmonary process copyright 2011 [employer]- All Rights Reserved Hand X-Ray 11/26/18 00:00 IMPRESSION: NO FRACTURE. Assessment & Plan - Diagnosis (1) Vaso-occlusive sickle cell crisis Is this a current diagnosis for this admission?: Yes (2) Sickle cell disease Qualifiers: Sickle-cell associated disorders: with unspecified crisis Qualified Code(s): D57.00 - Hb-SS disease with crisis, unspecified; D57.0 - Hb-SS disease with crisis Is this a current diagnosis for this admission?: Yes (3) Urinary tract infection Qualifiers: Encounter type: subsequent encounter Is this a current diagnosis for this admission?: Yes (4) Urinary tract infection due to Enterococcus Is this a current diagnosis for this admission?: Yes
[2018-11-29] MEDS: AMPICILLIN SODIUM 1 GM in NORMAL SALINE 50 ML IV SCH ×3 (00:42→12:30)
[2018-11-29] MEDS: ONDANSETRON HCL INJ/PF 4 MG/2 ML SDV IV PRN ×3 (01:36→18:21)
[2018-11-29] MEDS: HYDROMORPHONE HCL INJ/PF 2 MG/ML AMPULE IV PRN ×6 (01:36→22:26)
[2018-11-29] MEDS: DIPHENHYDRAMINE HCL 50 MG/ML VIAL IV PRN ×6 (01:36→22:27)
[2018-11-29] MEDS: GABAPENTIN 300 MG CAPSULE PO SCH ×3 (05:42→22:27)
[2018-11-29] MEDS: MULTIVITAMIN TABLET PO SCH (09:52)
[2018-11-29] MEDS: HYDROXYUREA 500 MG CAPSULE PO SCH ×3 (09:52→18:20)
[2018-11-29] MEDS: FOLIC ACID 1 MG TABLET PO SCH (09:52)
[2018-11-29] MEDS: NORMAL SALINE 1000 ML 1,000 ML IV PRN ×2 (12:30→18:28)
[2018-11-29] MEDS: RIVAROXABAN 10 MG TABLET PO SCH (18:20)
--- NOTE | 2018-11-29 19:28 | PDOC PROGRESS REPORT ---
Subjective Progress Note for:: 11/29/18 Subjective:: She complain of pain of the coccyx on inspection of the back, there is redness of the coccyx Reason For Visit: SICKLE CELL BONE PAIN CRISIS Physical Exam Vital Signs: Temp Pulse Resp BP Pulse Ox 99.2 F 76 14 101/61 98 11/29/18 16:00 11/29/18 16:00 11/29/18 16:00 11/29/18 16:00 11/29/18 16:00 Intake & Output 11/28/18 11/29/18 11/30/18 06:59 06:59 06:59 Intake Total 4470 4297 1518 Output Total 400 Balance 4070 4297 1518 Weight 63.1 kg 64.8 kg General appearance: PRESENT: no acute distress Eye exam: PRESENT: PERRLA Respiratory exam: PRESENT: clear to auscultation carolyn Cardiovascular exam: PRESENT: +S1, +S2 GI/Abdominal exam: PRESENT: soft Neurological exam: PRESENT: alert Results Laboratory Results: 11/28/18 05:50 11/26/18 15:11 11/20/18 11/20/18 11/20/18 00:24 00:24 09:15 Creatine Kinase < 20 L < 20 L CK-MB (CK-2) < 0.22 Troponin I < 0.012 NT-Pro-B Natriuret Pep 120 11/20/18 11/20/18 11/20/18 09:15 14:50 14:50 Creatine Kinase < 20 L CK-MB (CK-2) < 0.22 < 0.22 Troponin I < 0.012 < 0.012 NT-Pro-B Natriuret Pep 11/20/18 11/20/18 21:00 21:26 Creatine Kinase < 20 L CK-MB (CK-2) < 0.22 Troponin I < 0.012 NT-Pro-B Natriuret Pep Impressions: Chest X-Ray 11/20/18 01:19 IMPRESSION: No acute cardiopulmonary process copyright 2011 [employer]- All Rights Reserved Hand X-Ray 11/26/18 00:00 IMPRESSION: NO FRACTURE. Assessment & Plan - Diagnosis (1) Vaso-occlusive sickle cell crisis Is this a current diagnosis for this admission?: Yes Plan: continue treatment (2) Sickle cell disease Qualifiers: Sickle-cell associated disorders: with unspecified crisis Qualified Code(s): D57.00 - Hb-SS disease with crisis, unspecified; D57.0 - Hb-SS disease with crisis Is this a current diagnosis for this admission?: Yes (3) Urinary tract infection Qualifiers: Encounter type: subsequent encounter Is this a current diagnosis for this admission?: Yes (4) Urinary tract infection due to Enterococcus Is this a current diagnosis for this admission?: Yes (5) Coccyalgia Is this a current diagnosis for this admission?: Yes Plan: X-Ray of the pelvis is ordered
--- NOTE | 2018-11-29 20:49 | RADIOLOGY REPORT (SQ) ---
XR PELVIS 1-2 VIEWS HISTORY: Coccyx pain COMPARISON: 05/23/2018 FINDINGS: The proximal femurs are intact. No hip joint dislocations. The iliopubic and ilioischial lines are well-maintained. There is no SI joint or pubic symphysis diastases. The sacrum and coccyx is obscured by overlying bowel gas. IMPRESSION: No displaced fracture is seen although evaluation is limited due to overlying bowel gas.
--- NOTE | 2018-11-29 20:53 | RADIOLOGY REPORT (SQ) ---
AP PELVIS AND 2 VIEWS OF SACRUM HISTORY: Pelvic pain. COMPARISON: None. FINDINGS: No acute fracture or dislocation is seen. The joint spaces are preserved. The soft tissues are unremarkable. IMPRESSION: No acute pelvic findings are seen, although evaluation is limited due to overlying bowel gas.
[2018-11-30] MEDS: ONDANSETRON HCL INJ/PF 4 MG/2 ML SDV IV PRN ×3 (02:29→18:46)
[2018-11-30] MEDS: HYDROMORPHONE HCL INJ/PF 2 MG/ML AMPULE IV PRN ×6 (02:29→22:57)
[2018-11-30] MEDS: DIPHENHYDRAMINE HCL 50 MG/ML VIAL IV PRN ×6 (02:29→22:57)
[2018-11-30] MEDS: NORMAL SALINE 1000 ML 1,000 ML IV PRN ×2 (03:12→10:54)
[2018-11-30] MEDS: GABAPENTIN 300 MG CAPSULE PO SCH ×3 (06:35→22:57)
[2018-11-30] MEDS: FOLIC ACID 1 MG TABLET PO SCH (09:02)
[2018-11-30] MEDS: HYDROXYUREA 500 MG CAPSULE PO SCH ×3 (09:02→17:44)
[2018-11-30] MEDS: MULTIVITAMIN TABLET PO SCH (09:02)
[2018-11-30] MEDS: RIVAROXABAN 10 MG TABLET PO SCH (17:44)
--- NOTE | 2018-11-30 20:45 | PDOC PROGRESS REPORT ---
Subjective Progress Note for:: 11/30/18 Subjective:: Patient seen by the bedside, she was able to get out of bed today Reason For Visit: SICKLE CELL BONE PAIN CRISIS Physical Exam Vital Signs: Temp Pulse Resp BP Pulse Ox 99.2 F 80 16 106/62 100 11/30/18 19:14 11/30/18 19:14 11/30/18 19:14 11/30/18 19:14 11/30/18 19:14 Intake & Output 11/29/18 11/30/18 12/01/18 06:59 06:59 06:59 Intake Total 4297 3874 1814 Balance 4297 3874 1814 Weight 64.8 kg 65.9 kg General appearance: PRESENT: no acute distress Eye exam: PRESENT: PERRLA Respiratory exam: PRESENT: clear to auscultation carolyn Cardiovascular exam: PRESENT: +S1, +S2 GI/Abdominal exam: PRESENT: soft Results Laboratory Results: 11/28/18 05:50 11/26/18 15:11 11/20/18 11/20/18 11/20/18 00:24 00:24 09:15 Creatine Kinase < 20 L < 20 L CK-MB (CK-2) < 0.22 Troponin I < 0.012 NT-Pro-B Natriuret Pep 120 11/20/18 11/20/18 11/20/18 09:15 14:50 14:50 Creatine Kinase < 20 L CK-MB (CK-2) < 0.22 < 0.22 Troponin I < 0.012 < 0.012 NT-Pro-B Natriuret Pep 11/20/18 11/20/18 21:00 21:26 Creatine Kinase < 20 L CK-MB (CK-2) < 0.22 Troponin I < 0.012 NT-Pro-B Natriuret Pep Impressions: Chest X-Ray 11/20/18 01:19 IMPRESSION: No acute cardiopulmonary process copyright 2011 [employer]- All Rights Reserved Hand X-Ray 11/26/18 00:00 IMPRESSION: NO FRACTURE. Pelvis X-Ray 11/29/18 00:00 IMPRESSION: No displaced fracture is seen although evaluation is limited due to overlying bowel gas. Sacrum and Coccyx X-Ray 11/29/18 00:00 IMPRESSION: No acute pelvic findings are seen, although evaluation is limited due to overlying bowel gas. Assessment & Plan - Diagnosis (1) Vaso-occlusive sickle cell crisis Is this a current diagnosis for this admission?: Yes (2) Sickle cell disease Qualifiers: Sickle-cell associated disorders: with unspecified crisis Qualified Code(s): D57.00 - Hb-SS disease with crisis, unspecified; D57.0 - Hb-SS disease with crisis Is this a current diagnosis for this admission?: Yes (3) Urinary tract infection Qualifiers: Encounter type: subsequent encounter Is this a current diagnosis for this admission?: Yes (4) Urinary tract infection due to Enterococcus Is this a current diagnosis for this admission?: Yes
[2018-12-01] MEDS: ONDANSETRON HCL INJ/PF 4 MG/2 ML SDV IV PRN ×3 (02:58→18:58)
[2018-12-01] MEDS: HYDROMORPHONE HCL INJ/PF 2 MG/ML AMPULE IV PRN ×6 (02:58→23:01)
[2018-12-01] MEDS: DIPHENHYDRAMINE HCL 50 MG/ML VIAL IV PRN ×6 (02:58→23:02)
[2018-12-01] MEDS: NORMAL SALINE 1000 ML 1,000 ML IV PRN ×2 (03:59→12:21)
[2018-12-01] MEDS: GABAPENTIN 300 MG CAPSULE PO SCH ×3 (06:54→21:29)
[2018-12-01] MEDS: HYDROXYUREA 500 MG CAPSULE PO SCH ×3 (09:40→17:24)
[2018-12-01] MEDS: FOLIC ACID 1 MG TABLET PO SCH (09:40)
[2018-12-01] MEDS: MULTIVITAMIN TABLET PO SCH (09:40)
[2018-12-01] MEDS ORDERED: EPOETIN ALFA INJ 20,000 UNIT/1 ML VIAL (ONCOLOGY) SUBCUT SCH (10:00)
[2018-12-01] MEDS ORDERED: DISPOSABLE SUBCUT ONE (10:00)
[2018-12-01] MEDS ORDERED: EPOETIN ALFA INJ 40000 UNIT/1 ML (ONCOLOGY) SUBCUT SCH (10:00)
[2018-12-01] MEDS ORDERED: EPOETIN ALFA INJ 40000 UNIT/1 ML (RENAL) SUBCUT SCH (10:00)
[2018-12-01] MEDS ORDERED: EPOETIN ALFA SUBCUT ONE (10:00)
[2018-12-01] MEDS: RIVAROXABAN 10 MG TABLET PO SCH (17:24)
[2018-12-02] MEDS: ONDANSETRON HCL INJ/PF 4 MG/2 ML SDV IV PRN ×3 (03:08→22:57)
[2018-12-02] MEDS: DIPHENHYDRAMINE HCL 50 MG/ML VIAL IV PRN ×5 (03:08→22:57)
[2018-12-02] MEDS: HYDROMORPHONE HCL INJ/PF 2 MG/ML AMPULE IV PRN ×6 (03:08→22:57)
[2018-12-02] MEDS: GABAPENTIN 300 MG CAPSULE PO SCH ×3 (07:15→23:08)
[2018-12-02] MEDS: HYDROXYUREA 500 MG CAPSULE PO SCH ×3 (10:00→18:15)
[2018-12-02] MEDS: NORMAL SALINE 1000 ML 1,000 ML IV PRN (15:07)
[2018-12-02] MEDS: RIVAROXABAN 10 MG TABLET PO SCH (18:10)
[2018-12-02] MEDS: MULTIVITAMIN TABLET PO SCH (18:14)
[2018-12-02] MEDS: FOLIC ACID 1 MG TABLET PO SCH (18:14)
[2018-12-03] MEDS: HYDROMORPHONE HCL INJ/PF 2 MG/ML AMPULE IV PRN ×2 (02:58→06:55)
[2018-12-03] MEDS: DIPHENHYDRAMINE HCL 50 MG/ML VIAL IV PRN ×5 (02:59→21:27)
[2018-12-03] MEDS: GABAPENTIN 300 MG CAPSULE PO SCH ×3 (06:50→21:27)
[2018-12-03] MEDS ORDERED: HYDROMORPHONE HCL INJ/PF 2 MG/ML AMPULE IV PRN (09:26)
[2018-12-03] MEDS: MULTIVITAMIN TABLET PO SCH (10:36)
[2018-12-03] MEDS: FOLIC ACID 1 MG TABLET PO SCH (10:36)
[2018-12-03] MEDS: HYDROXYUREA 500 MG CAPSULE PO SCH ×3 (10:36→18:17)
[2018-12-03] MEDS: ONDANSETRON HCL INJ/PF 4 MG/2 ML SDV IV PRN (11:10)
--- NOTE | 2018-12-03 14:03 | PDOC PROGRESS REPORT ---
Subjective Progress Note for:: 12/01/18 Subjective:: Patient seen by the bedside, she was able to get out of bed today Reason For Visit: SICKLE CELL BONE PAIN CRISIS Physical Exam Vital Signs: Temp Pulse Resp BP Pulse Ox 99.2 F 76 18 108/65 95 12/03/18 12:00 12/03/18 12:00 12/03/18 12:00 12/03/18 12:00 12/03/18 12:00 Intake & Output 12/02/18 12/03/18 12/04/18 06:59 06:59 06:59 Intake Total 3554 1850 Balance 3554 1850 Weight 65.3 kg 65.5 kg General appearance: PRESENT: no acute distress Eye exam: PRESENT: PERRLA Respiratory exam: PRESENT: clear to auscultation carolyn Cardiovascular exam: PRESENT: +S1, +S2 Neurological exam: PRESENT: alert Results Laboratory Results: 11/28/18 05:50 11/26/18 15:11 11/20/18 11/20/18 11/20/18 00:24 00:24 09:15 Creatine Kinase < 20 L < 20 L CK-MB (CK-2) < 0.22 Troponin I < 0.012 NT-Pro-B Natriuret Pep 120 11/20/18 11/20/18 11/20/18 09:15 14:50 14:50 Creatine Kinase < 20 L CK-MB (CK-2) < 0.22 < 0.22 Troponin I < 0.012 < 0.012 NT-Pro-B Natriuret Pep 11/20/18 11/20/18 21:00 21:26 Creatine Kinase < 20 L CK-MB (CK-2) < 0.22 Troponin I < 0.012 NT-Pro-B Natriuret Pep Impressions: Chest X-Ray 11/20/18 01:19 IMPRESSION: No acute cardiopulmonary process copyright 2011 [employer]- All Rights Reserved Hand X-Ray 11/26/18 00:00 IMPRESSION: NO FRACTURE. Pelvis X-Ray 11/29/18 00:00 IMPRESSION: No displaced fracture is seen although evaluation is limited due to overlying bowel gas. Sacrum and Coccyx X-Ray 11/29/18 00:00 IMPRESSION: No acute pelvic findings are seen, although evaluation is limited due to overlying bowel gas. Assessment & Plan - Diagnosis (1) Vaso-occlusive sickle cell crisis Is this a current diagnosis for this admission?: Yes Plan: continue treatment (2) Sickle cell disease Qualifiers: Sickle-cell associated disorders: with unspecified crisis Qualified Code(s): D57.00 - Hb-SS disease with crisis, unspecified; D57.0 - Hb-SS disease with crisis Is this a current diagnosis for this admission?: Yes (3) Urinary tract infection Qualifiers: Encounter type: subsequent encounter Is this a current diagnosis for this admission?: Yes (4) Urinary tract infection due to Enterococcus Is this a current diagnosis for this admission?: Yes
--- NOTE | 2018-12-03 14:05 | PDOC PROGRESS REPORT ---
Subjective Progress Note for:: 12/02/18 Subjective:: Patient is alert complaining of back pain Reason For Visit: SICKLE CELL BONE PAIN CRISIS Physical Exam Vital Signs: Temp Pulse Resp BP Pulse Ox 99.2 F 76 18 108/65 95 12/03/18 12:00 12/03/18 12:00 12/03/18 12:00 12/03/18 12:00 12/03/18 12:00 Intake & Output 12/02/18 12/03/18 12/04/18 06:59 06:59 06:59 Intake Total 3554 1850 Balance 3554 1850 Weight 65.3 kg 65.5 kg General appearance: PRESENT: no acute distress Eye exam: PRESENT: PERRLA Respiratory exam: PRESENT: clear to auscultation carolyn Cardiovascular exam: PRESENT: +S1, +S2 GI/Abdominal exam: PRESENT: soft Neurological exam: PRESENT: alert Results Laboratory Results: 11/28/18 05:50 11/26/18 15:11 11/20/18 11/20/18 11/20/18 00:24 00:24 09:15 Creatine Kinase < 20 L < 20 L CK-MB (CK-2) < 0.22 Troponin I < 0.012 NT-Pro-B Natriuret Pep 120 11/20/18 11/20/18 11/20/18 09:15 14:50 14:50 Creatine Kinase < 20 L CK-MB (CK-2) < 0.22 < 0.22 Troponin I < 0.012 < 0.012 NT-Pro-B Natriuret Pep 11/20/18 11/20/18 21:00 21:26 Creatine Kinase < 20 L CK-MB (CK-2) < 0.22 Troponin I < 0.012 NT-Pro-B Natriuret Pep Impressions: Chest X-Ray 11/20/18 01:19 IMPRESSION: No acute cardiopulmonary process copyright 2011 [employer]- All Rights Reserved Hand X-Ray 11/26/18 00:00 IMPRESSION: NO FRACTURE. Pelvis X-Ray 11/29/18 00:00 IMPRESSION: No displaced fracture is seen although evaluation is limited due to overlying bowel gas. Sacrum and Coccyx X-Ray 11/29/18 00:00 IMPRESSION: No acute pelvic findings are seen, although evaluation is limited due to overlying bowel gas. Assessment & Plan - Diagnosis (1) Vaso-occlusive sickle cell crisis Is this a current diagnosis for this admission?: Yes Plan: continue treatment (2) Sickle cell disease Qualifiers: Sickle-cell associated disorders: with unspecified crisis Qualified Code(s): D57.00 - Hb-SS disease with crisis, unspecified; D57.0 - Hb-SS disease with crisis Is this a current diagnosis for this admission?: Yes (3) Urinary tract infection Qualifiers: Encounter type: subsequent encounter Is this a current diagnosis for this admission?: Yes (4) Urinary tract infection due to Enterococcus Is this a current diagnosis for this admission?: Yes Plan: continue IV ampicillin
[2018-12-03] MEDS ORDERED: PROMETHAZINE HCL 25 MG TABLET PO PRN (14:07)
--- NOTE | 2018-12-03 14:07 | PDOC PROGRESS REPORT ---
Subjective Progress Note for:: 12/03/18 Subjective:: She continues to complain of pain, she has pain of the spine she said, I will DC IV Dilaudid, start p.o. medication get MRI of the spine Reason For Visit: SICKLE CELL BONE PAIN CRISIS Physical Exam Vital Signs: Temp Pulse Resp BP Pulse Ox 99.2 F 76 18 108/65 95 12/03/18 12:00 12/03/18 12:00 12/03/18 12:00 12/03/18 12:00 12/03/18 12:00 Intake & Output 12/02/18 12/03/18 12/04/18 06:59 06:59 06:59 Intake Total 3554 1850 Balance 3554 1850 Weight 65.3 kg 65.5 kg General appearance: PRESENT: no acute distress Eye exam: PRESENT: PERRLA Respiratory exam: PRESENT: clear to auscultation carolyn Cardiovascular exam: PRESENT: +S1, +S2 GI/Abdominal exam: PRESENT: soft Neurological exam: PRESENT: alert Results Laboratory Results: 11/28/18 05:50 11/26/18 15:11 11/20/18 11/20/18 11/20/18 00:24 00:24 09:15 Creatine Kinase < 20 L < 20 L CK-MB (CK-2) < 0.22 Troponin I < 0.012 NT-Pro-B Natriuret Pep 120 11/20/18 11/20/18 11/20/18 09:15 14:50 14:50 Creatine Kinase < 20 L CK-MB (CK-2) < 0.22 < 0.22 Troponin I < 0.012 < 0.012 NT-Pro-B Natriuret Pep 11/20/18 11/20/18 21:00 21:26 Creatine Kinase < 20 L CK-MB (CK-2) < 0.22 Troponin I < 0.012 NT-Pro-B Natriuret Pep Impressions: Chest X-Ray 11/20/18 01:19 IMPRESSION: No acute cardiopulmonary process copyright 2011 [employer]- All Rights Reserved Hand X-Ray 11/26/18 00:00 IMPRESSION: NO FRACTURE. Pelvis X-Ray 11/29/18 00:00 IMPRESSION: No displaced fracture is seen although evaluation is limited due to overlying bowel gas. Sacrum and Coccyx X-Ray 11/29/18 00:00 IMPRESSION: No acute pelvic findings are seen, although evaluation is limited due to overlying bowel gas. Assessment & Plan - Diagnosis (1) Vaso-occlusive sickle cell crisis Is this a current diagnosis for this admission?: Yes (2) Sickle cell disease Qualifiers: Sickle-cell associated disorders: with unspecified crisis Qualified Code(s): D57.00 - Hb-SS disease with crisis, unspecified; D57.0 - Hb-SS disease with crisis Is this a current diagnosis for this admission?: Yes (3) Urinary tract infection due to Enterococcus Is this a current diagnosis for this admission?: Yes Plan: d/c IV ampicillin
[2018-12-03] MEDS ORDERED: (PENDING PHARMACY ID) (Oxycodone Hcl [Oxycontin] 30 MG) PO SCH (14:15)
[2018-12-03] MEDS ORDERED: ONDANSETRON HCL INJ/PF 4 MG/2 ML SDV IV PRN (14:44)
[2018-12-03] MEDS ORDERED: OXYCODONE HCL SR 10 MG TABLET PO SCH (15:00)
[2018-12-03] MEDS: NORMAL SALINE 1000 ML 1,000 ML IV PRN (15:10)
[2018-12-03] MEDS: OXYCODONE HCL IR 5 MG TABLET PO PRN ×2 (15:12→21:26)
--- NOTE | 2018-12-03 17:36 | RADIOLOGY REPORT (SQ) ---
EXAM DESCRIPTION: MRI LUMBAR SPINE WITHOUT COMPLETED DATE/TIME: 12/03/2018 4:39 pm REASON FOR STUDY: radiculopathy ,lumbar COMPARISON: 04/25/2013 TECHNIQUE: Sagittal and Axial imaging includes T1, T2, STIR and gradient echo sequences. Coronal T2/ HASTE imaging. LIMITATIONS: None. FINDINGS: VISUALIZED UPPER ABDOMEN: Limited evaluation. No acute or suspicious findings suggested. 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 . The lowest well-developed disc space is labeled L5-S1. ALIGNMENT: Anatomic. VERTEBRAE: Intact. BONE MARROW: Normal. No marrow replacement or reactive changes. DISC SIGNAL: Normal. No significant abnormal signal or loss of height. POSTERIOR ELEMENTS: Generally intact. No pars defect evident. HARDWARE: None in the spine. CORD AND CONUS: Normal in size and signal intensity. Conus at the appropriate level. SOFT TISSUES: No aortic aneurysm seen. No bulky retroperitoneal adenopathy or mass. Similar multilev el small nerve root sheath cysts. L1-L2: No significant spinal stenosis or exit foraminal stenosis. L2-L3: No significant spinal stenosis or exit foraminal stenosis. L3-L4: No significant spinal stenosis or exit foraminal stenosis. L4-L5: No significant spinal stenosis or exit foraminal stenosis. L5-S1: No significant spinal stenosis or exit foraminal stenosis. LOWER THORACIC: Incompletely imaged. No stenosis seen. SACRUM: Visualized upper sacrum intact. OTHER: No other significant findings. IMPRESSION: No significant changes from the previous exam. No significant spinal stenosis or exit f oraminal stenosis. TECHNICAL DOCUMENTATION: JOB ID: [id number] [id number] 2010 [employer]- All Rights Reserved Reading location - IP/workstation name: [facility]
[2018-12-03] MEDS: RIVAROXABAN 10 MG TABLET PO SCH (18:17)
[2018-12-04] MEDS: DIPHENHYDRAMINE HCL 50 MG/ML VIAL IV PRN ×6 (01:30→22:22)
[2018-12-04] MEDS: GABAPENTIN 300 MG CAPSULE PO SCH ×3 (05:48→22:22)
[2018-12-04] MEDS ORDERED: OXYCODONE HCL SR 10 MG TABLET PO SCH (06:00)
[2018-12-04] MEDS: MULTIVITAMIN TABLET PO SCH (09:14)
[2018-12-04] MEDS: FOLIC ACID 1 MG TABLET PO SCH (09:14)
[2018-12-04] MEDS: HYDROXYUREA 500 MG CAPSULE PO SCH ×3 (09:14→18:02)
[2018-12-04] MEDS: OXYCODONE HCL IR 5 MG TABLET PO PRN ×3 (09:59→22:21)
[2018-12-04] MEDS: NORMAL SALINE 1000 ML 1,000 ML IV PRN ×2 (14:00→22:21)
[2018-12-04] MEDS: RIVAROXABAN 10 MG TABLET PO SCH (18:02)
[2018-12-04] MEDS: OXYCODONE HCL SR 10 MG TABLET PO SCH (18:03)
--- NOTE | 2018-12-04 21:53 | PDOC DISCHARGE SUMMARY ---
General - Admit/Disc Date/PCP Admission Date/Primary Care Provider: 11/20/18 06:57 HOMA BARRAZA MD Discharge Date: 12/05/18 - Discharge Diagnosis (1) Vaso-occlusive sickle cell crisis Is this a current diagnosis for this admission?: Yes (2) Sickle cell disease Is this a current diagnosis for this admission?: Yes (3) Urinary tract infection due to Enterococcus Is this a current diagnosis for this admission?: Yes - Additional Information Home Medications: Epoetin Federico [Procrit Inj 40,000 Unit/1 ml Vial (Renal)] 60,000 unit SQ FR 11/20/18 Folic Acid [Folvite 1 mg Tablet] 1 mg PO DAILY 11/20/18 Gabapentin [Neurontin 300 mg Capsule] 300 mg PO Q8 11/20/18 Hydroxyurea [Hydrea 500 mg Capsule] 500 mg PO TID 11/20/18 Multivitamin [Multiple Vitamins] 1 tab PO DAILY 11/20/18 Oxycodone HCl [Oxycodone HCl 10 MG Tablet] 10 mg PO Q6HP PRN 11/20/18 Oxycodone HCl [Oxycontin] 30 mg PO Q12 11/20/18 Promethazine HCl [Phenergan 25 mg Tablet] 25 mg PO Q6HP PRN 11/20/18 Rivaroxaban [Xarelto] 20 mg PO QPM 11/20/18 History of Present Illness History of Present Illness: WILLIE ALAN is a 48 year old female,She came to emergency room for evaluation of generalized body pains, urinary symptoms, recently discharged from [facility]. The last time she presented to the emergency room she was diagnosed with diffuse infiltrate of the chest, I assume they were concerned about acute chest syndrome she was then transferred to [place] for evaluation. She was not treated with exchange blood transfusion. She recently has increased ED visit for evaluation of bone pains which typically is felt to be due to acute vaso-occlusive crisis when she arrived in the ER, she was febrile to temperature recorded was 99.1, the blood pressure was on the low side 97/67, she also has urinary symptoms frequency of urination and urgency. The chest x-ray that was done on this visit was clear Hospital Course Hospital Course: She has sickle cell disease she was admitted for the management of acute vaso- occlusive crisis with bone pain crisis she was treated primarily with IV fluid pain control with Dilaudid. She also has UTI due to Enterococcus faecalis, she was treated with IV ampicillin. She also required blood transfusion with packed red blood cells because of hemolytic anemia Physical Exam Vital Signs: Temp Pulse Resp BP Pulse Ox 99.1 F 71 16 100/74 98 12/04/18 15:39 12/04/18 15:39 12/04/18 15:39 12/04/18 15:39 12/04/18 15:39 Intake & Output 12/03/18 12/04/18 12/05/18 06:59 06:59 06:59 Intake Total 1850 1420 960 Balance 1850 1420 960 Weight 65.5 kg General appearance: PRESENT: no acute distress, well-developed, well-nourished Head exam: PRESENT: atraumatic, normocephalic Eye exam: PRESENT: conjunctiva pink, EOMI, PERRLA Ear exam: PRESENT: normal external ear exam Mouth exam: PRESENT: moist, tongue midline Neck exam: PRESENT: full ROM Respiratory exam: PRESENT: clear to auscultation carolyn Cardiovascular exam: PRESENT: RRR, +S1, +S2 Pulses: PRESENT: normal dorsalis pedis pul, +2 pedal pulses bilateral Vascular exam: PRESENT: normal capillary refill GI/Abdominal exam: PRESENT: normal bowel sounds, soft Rectal exam: PRESENT: deferred Neurological exam: PRESENT: alert, awake, oriented to person, oriented to place, oriented to time, oriented to situation, CN II-XII grossly intact Psychiatric exam: PRESENT: appropriate affect, normal mood Skin exam: PRESENT: dry, intact, warm Results Laboratory Results: 11/28/18 05:50 11/26/18 15:11 11/20/18 11/20/18 11/20/18 00:24 00:24 09:15 Creatine Kinase < 20 L < 20 L CK-MB (CK-2) < 0.22 Troponin I < 0.012 NT-Pro-B Natriuret Pep 120 11/20/18 11/20/18 11/20/18 09:15 14:50 14:50 Creatine Kinase < 20 L CK-MB (CK-2) < 0.22 < 0.22 Troponin I < 0.012 < 0.012 NT-Pro-B Natriuret Pep 11/20/18 11/20/18 21:00 21:26 Creatine Kinase < 20 L CK-MB (CK-2) < 0.22 Troponin I < 0.012 NT-Pro-B Natriuret Pep Impressions: Chest X-Ray 11/20/18 01:19 IMPRESSION: No acute cardiopulmonary process copyright 2011 [employer]- All Rights Reserved Hand X-Ray 11/26/18 00:00 IMPRESSION: NO FRACTURE. Pelvis X-Ray 11/29/18 00:00 IMPRESSION: No displaced fracture is seen although evaluation is limited due to overlying bowel gas. Sacrum and Coccyx X-Ray 11/29/18 00:00 IMPRESSION: No acute pelvic findings are seen, although evaluation is limited due to overlying bowel gas. Lumbar Spine MRI 12/03/18 00:00 IMPRESSION: No significant changes from the previous exam. No significant spinal stenosis or exit foraminal stenosis. Qualifiers - * PATIENT BEING DISCHARGED WITH ANY OF THE FOLLOWING DIAGNOSIS: No VTE patient discharged on overlapping Therapy?: No Reason(s) for not prescribing Overlap Therapy:: Not indicated Stroke Pt being discharged on Anti-thrombolytic therapy?: No Reason(s) for not prescribing Anti-thrombolytic therapy:: Not indicated Stroke Pt being discharged on Anti-coagulation therapy?: No Reason(s) for not prescribing Anti-coagulation therapy:: Not indicated Stroke Pt being discharged on Statins?: No Reason(s) for not prescribing Statins therapy:: Not indicated LA Pt being discharged on Aspirin therapy?: No Reason(s) for not prescribing Aspirin therapy:: Not indicated LA Pt being discharged on Statins?: No Reason(s) for not prescribing Statin therapy:: Not indicated LA Pt discharged ACEI/ARBS?: No Reason(s) for not prescribing ACEI/ARBS:: Not indicated Acute Heart Failure - Is this a Heart Failure Patient?: No 3. Anticoagulant therapy for permanect/persistent/paraoxysmal Afib or Aflutter: N/A
[2018-12-05] MEDS: DIPHENHYDRAMINE HCL 50 MG/ML VIAL IV PRN ×3 (02:35→11:28)
[2018-12-05] MEDS: OXYCODONE HCL SR 10 MG TABLET PO SCH (05:25)
[2018-12-05] MEDS: GABAPENTIN 300 MG CAPSULE PO SCH (05:26)
[2018-12-05 09:37] VITALS: BP 156/69
[2018-12-05] MEDS: HYDROXYUREA 500 MG CAPSULE PO SCH (09:47)
[2018-12-05] MEDS: FOLIC ACID 1 MG TABLET PO SCH (09:47)
[2018-12-05] MEDS: MULTIVITAMIN TABLET PO SCH (09:47)
[2018-12-05] MEDS: OXYCODONE HCL IR 5 MG TABLET PO PRN (11:28)
== END 2018-12-05 13:15 | disposition home or self-care (01) | DRG 812 ==
LOC: ER 11-20 01:43 → EH 11-20 06:57 → 5 11-20 10:28
PROVIDERS: ADMIT Internal Medicine; ATTEND Internal Medicine
PROC: 30233N1 Transfusion of Nonautologous Red Blood Cells into Peripheral Vein, Percutaneous Approach (ICD-10-PCS; principal; 2018-11-27)
DX: D57.00 Hb-SS disease with crisis, unspecified (principal); N39.0 Urinary tract infection, site not specified; B95.2 Enterococcus as the cause of diseases classified elsewhere; Z79.899 Other long term (current) drug therapy; Z86.14 Personal history of Methicillin resistant Staphylococcus aureus infection; Z79.891 Long term (current) use of opiate analgesic; Z79.01 Long term (current) use of anticoagulants; Z88.1 Allergy status to other antibiotic agents
CPT/HCPCS: 36415; 36430; 36591; 71046; 72148; 72170; 72220; 80048; 80053; 80076; 80307; 81001; 82140; 82150; 82550; 82553; 83036; 83690; 83735; 83880; 84100; 84439; 84443; 84484; 85025; 85045; 85610; 85730; 86850; 86900; 86901; 86902; 86920; 87040; 87086; 87088; 87186; 93005; 93010; 96361; 96374; 96375; 96376; 99285; J0290; J0744; J0885; J1170; J1200; J1642; J2405; J3411; J3475; J3480; J3490; J7030; P9016; Q4081

== ENCOUNTER 2018-12-26 20:02 | Emergency (ER) | payer MEDICAID ==
[2018-12-26] MEDS ORDERED: NORMAL SALINE 1000 ML 1,000 ML IV ONE (20:58)
--- NOTE | 2018-12-26 21:01 | ER Document Report ---
ED Medical Screen (RME) - General Chief Complaint: Pain All Over Stated Complaint: BODY PAIN Time Seen by Provider: 12/26/18 20:58 Primary Care Provider: SAVANNA AWAN MD [Primary Care Provider] - Follow up as needed Mode of Arrival: Wheelchair Information source: Patient Notes: Patient presents complaining of sickle cell pain crisis for the past 4 days. Patient complains of leg arm chest and back pain. Patient also complains of dysuria symptoms and is concerned she may have a UTI. Patient states she has had urinary tract infection symptoms off and on for the past week. Patient does report fever at home that was 102. Patient does have a history of sickle cell anemia, previous cholecystectomy, appendectomy, tubal ligation, and splenectomy. I have greeted and performed a rapid initial assessment of this patient. A comprehensive ED assessment and evaluation of the patient, analysis of test results and completion of the medical decision making process will be conducted by additional ED providers. TRAVEL OUTSIDE OF THE [place] IN LAST 30 DAYS: No - Related Data Allergies/Adverse Reactions: doxycycline [Doxycycline] Allergy (Severe, Verified 12/26/18 20:21) Past Medical History - Social History Frequency of alcohol use: None Drug Abuse: None - Past Medical History Cardiac Medical History: Reports: Hx Heart Murmur Denies: Hx Atrial Fibrillation, Hx Congestive Heart Failure, Hx Coronary Artery Disease, Hx Heart Attack, Hx Hypercholesterolemia, Hx Hypertension, Hx Peripheral Vascular Disease Pulmonary Medical History: Denies: Hx Tuberculosis Neurological Medical History: Denies: Hx Seizures Renal/ Medical History: Reports: Hx Ovarian Cysts. 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 Denies: Hx HIV Past Surgical History: Reports: Hx Appendectomy, Hx Section, Hx Cholecystectomy, Hx Orthopedic Surgery - R knee, Hx Tonsillectomy. Denies: Hx Bowel Surgery, Hx Coronary Artery Bypass Graft, Hx Gastric Bypass Surgery, Hx Herniorrhaphy, Hx Mastectomy, Hx Pacemaker, Hx Tubal Ligation - Immunizations Immunizations up to date: Yes Hx Diphtheria, Pertussis, Tetanus Vaccination: Yes History of Influenza Vaccine for 03/2017 - 08/2017 Season: No Physical Exam - Vital signs Vitals: Temp Pulse Resp BP Pulse Ox 98.5 F 88 18 98/63 L 99 12/26/18 20:32 12/26/18 20:32 12/26/18 20:32 12/26/18 20:32 12/26/18 20:32 - General Notes: Sclera icteric, flank pain bilateral Course - Vital Signs Vital signs: Temp Pulse Resp BP Pulse Ox 98.5 F 88 18 98/63 L 99 12/26/18 20:32 12/26/18 20:32 12/26/18 20:32 12/26/18 20:32 12/26/18 20:32 Doctor's Discharge - Discharge Referrals: SAVANNA AWAN MD [Primary Care Provider] - Follow up as needed
--- NOTE | 2018-12-26 21:26 | EKG REPORT ---
SEVERITY:- NORMAL ECG - SINUS RHYTHM : Confirmed by: No Boss MD 26-Dec-2018 21:25:34
--- NOTE | 2018-12-26 21:58 | RADIOLOGY REPORT (SQ) ---
EXAM DESCRIPTION: PA and lateral views of the chest CLINICAL HISTORY: 48 years Female, cp COMPARISON: 11/20/2018. FINDINGS: Left chest port with tip in the distal superior vena cava. Cardiomediastinal silhouette is not enlarged. No obvious acute lung or pleural abnormalities. No change since recent study. Cannot exclude subtle chronic interstitial changes. IMPRESSION: No obvious acute findings. Possible subtle chronic interstitial findings.
[2018-12-26] MEDS ORDERED: HYDROMORPHONE HCL INJ/PF 2 MG/ML AMPULE IV ONE ×2 (22:14→23:51)
[2018-12-26] MEDS ORDERED: ONDANSETRON HCL INJ/PF 4 MG/2 ML SDV IV ONE (22:14)
--- NOTE | 2018-12-26 22:23 | ER Document Report ---
ED General - General Chief Complaint: Pain All Over Stated Complaint: BODY PAIN Time Seen by Provider: 12/26/18 20:58 Primary Care Provider: SAVANNA AWAN MD [Primary Care Provider] - Follow up as needed Mode of Arrival: Wheelchair TRAVEL OUTSIDE OF THE [place] IN LAST 30 DAYS: No - HPI Notes: Patient is a 48-year-old female history of sickle cell disease SC status post splenic and appendectomy tubal ligation and cholecystectomy and recurrent left lower extremity cellulitis presents to the emergency department with report of a 4-day history of bilateral leg pain and arm pain and some chest wall pain and back pain. The patient describes her back pain is left greater than right and reports some dysuria and describes a fever of 102 early this morning about 4 AM. The patient denies any difficulty breathing or vomiting, but she does report some nausea. No constipation or diarrhea or vaginal discharge. The patient states there have been no recent medication changes, and she is not out of her medications. No significant skin rash. - Related Data Allergies/Adverse Reactions: doxycycline [Doxycycline] Allergy (Severe, Verified 12/26/18 20:21) Past Medical History - General Information source: Patient - Social History Smoking Status: Never Smoker Frequency of alcohol use: None Drug Abuse: None Lives with: Family Family History: Reviewed & Not Pertinent Patient has suicidal ideation: No Patient has homicidal ideation: No - Past Medical History Cardiac Medical History: Reports: Hx Heart Murmur Denies: Hx Atrial Fibrillation, Hx Congestive Heart Failure, Hx Coronary Artery Disease, Hx Heart Attack, Hx Hypercholesterolemia, Hx Hypertension, Hx Peripheral Vascular Disease Pulmonary Medical History: Denies: Hx Tuberculosis Neurological Medical History: Denies: Hx Seizures Renal/ Medical History: Reports: Hx Ovarian Cysts. 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 Denies: Hx HIV Past Surgical History: Reports: Hx Appendectomy, Hx Section, Hx Cho lecystectomy, Hx Orthopedic Surgery - R knee, Hx Tonsillectomy. Denies: Hx Bowel Surgery, Hx Coronary Artery Bypass Graft, Hx Gastric Bypass Surgery, Hx Herniorrhaphy, Hx Mastectomy, Hx Pacemaker, Hx Tubal Ligation - Immunizations Immunizations up to date: Yes Hx Diphtheria, Pertussis, Tetanus Vaccination: Yes Hx Pneumococcal Vaccination: 03/20/14 Review of Systems - Review of Systems -: Yes All other systems reviewed and negative Physical Exam - Vital signs Vitals: Temp Pulse Resp BP Pulse Ox 98.5 F 88 18 98/63 L 99 12/26/18 20:32 12/26/18 20:32 12/26/18 20:32 12/26/18 20:32 12/26/18 20:32 - Notes Notes: PHYSICAL EXAMINATION: GENERAL: Well-appearing, well-nourished and in no acute distress. HEAD: Atraumatic, normocephalic. EYES: Pupils equal round and reactive to light, extraocular movements intact, conjunctiva are normal. ENT: Nares patent, oropharynx clear without exudates. Moist mucous membranes. NECK: Normal range of motion, supple without lymphadenopathy LUNGS: Breath sounds clear to auscultation bilaterally and equal. No wheezes rales or rhonchi. HEART: Regular rate and rhythm without murmurs. Examination of the patient's left upper chest wall shows mid port site is intact and clear without abnormality. ABDOMEN: Soft, nondistended abdomen. No guarding, no rebound. No masses appreciated. Surgical scars are well-healed. Patient has pain to the left lower quadrant of the abdomen extending around to the left flank region. Female : deferred Musculoskeletal: Normal range of motion. No cyanosis. Diffuse pain throughout the anterior chest and rib cage and back and lower extremities which patient states is typical for sickle cell pain. Trace edema right lower extremity with 1+ edema left lower extremity which patient states is chronic. NEUROLOGICAL: Cranial nerves grossly intact. Normal speech, normal gait. Normal sensory, motor exams PSYCH: Normal mood, normal affect. SKIN: Warm, Dry, normal turgor, no lesions noted. No gross cellulitis but she does have some exfoliative epidermal changes on the left which she states are chronic consistent with dermatitis and eczema. Course - Re-evaluation Re-evalutation: 12/26/18 22:22 Blood cultures taken. Patient was placed upon supplemental oxygen and was given normal saline bolus of 1 L. Patient was given IV Zofran and Dilaudid for pain. After repeat Dilaudid, the patient had adequate pain relief and felt stable for discharge. Patient was given Rocephin for possible UTI and a urine culture was obtained. She will be sent home on Bactrim. 12/27/18 01:53 12/27/18 01:55 Patient was given Benadryl for her itching with improvement. 12/27/18 01:56 No evidence for systemic allergic reaction or sepsis or significant anemia beyond the patient's baseline. No evidence for obvious cellulitis. No evidence for aplastic crisis and the patient's pain is controlled. - Vital Signs Vital signs: Temp Pulse Resp BP Pulse Ox 98.5 F 88 20 110/71 97 12/26/18 20:32 12/26/18 20:32 12/26/18 22:01 12/26/18 22:01 12/26/18 22:13 - Laboratory Result Diagrams: 12/26/18 22:00 12/26/18 22:00 Laboratory results interpreted by me: 12/26/18 12/26/18 12/26/18 22:00 22:00 22:00 RBC 2.06 L Hgb 8.4 L Hct 24.0 L MCV 117 H MCH 40.9 H RDW 28.5 H Retic Count (auto) 3.93 H PT 16.2 H Glucose 116 H Total Bilirubin 4.3 H Direct Bilirubin 0.7 H AST 73 H Alkaline Phosphatase 169 H Urine Blood Urine Urobilinogen Ur Leukocyte Esterase 12/27/18 00:30 RBC Hgb Hct MCV MCH RDW Retic Count (auto) PT Glucose Total Bilirubin Direct Bilirubin AST Alkaline Phosphatase Urine Blood SMALL H Urine Urobilinogen 4.0 H Ur Leukocyte Esterase SMALL H Discharge - Discharge Clinical Impression: Dermatitis Urinary tract infection Qualifiers: Urinary tract infection type: acute cystitis Hematuria presence: without hematuria Qualified Code(s): N30.00 - Acute cystitis without hematuria Sickle cell hemoglobin C disease Qualifiers: Sickle-cell associated disorders: with unspecified crisis Qualified Code(s): D57.219 - Sickle-cell/Hb-C disease with crisis, unspecified Condition: Stable Disposition: HOME, SELF-CARE Instructions: Trimethoprim-Sulfa ([facility]), Urinary Tract Infection ([facility]), Corticosteroid Medication ([facility]), Atopic Dermatitis (Eczema) ([facility]), Sickle Cell Crisis ([facility]) Additional Instructions: Drink plenty of fluids. Return to the emergency department in case of uncontrolled vomiting, uncontrolled pain, difficulty breathing or severe swelling to the leg. Prescriptions: Sulfamethoxazole/Trimethoprim [Bactrim Ds Tablet] 1 each PO BID #20 tablet RX: Triamcinolone Acetonide [Aristocort 0.1% Cream] 1 applic TP BID #1 tub Referrals: SAVANNA AWAN MD [Primary Care Provider] - Follow up as needed
[2018-12-26 22:30] LABS: VENOUS BLOOD BASE EXCESS -0.2 mmol/L; VENOUS BLOOD HCO3 24.6 mmol/L (20-32); VENOUS BLOOD PCO2 40.4 mmHg (35-63); VENOUS BLOOD PH 7.4 (7.30-7.42)
[2018-12-26 22:33] LABS: INTERNATIONAL RATION (INR) 1.29; PROTHROMBIN TIME 16.2 SEC (11.4-15.4)
[2018-12-26 22:43] LABS: ABSOLUTE BASOPHILS # (AUTO) 0.1 10^3/uL (0.0-0.2); ABSOLUTE EOSINOPHILS # (AUTO) 0.1 10^3/uL (0.0-0.6); ABSOLUTE LYMPHOCYTES (AUTO) 1.3 10^3/uL (0.5-4.7); ABSOLUTE MONOCYTES (AUTO) 0.3 10^3/uL (0.1-1.4); ABSOLUTE NEUT (AUTO) 4.4 10^3/uL (1.7-8.2); ABSOLUTE RETICS # 0.081 10^6/uL (0.028-0.122); BASOPHILS % (AUTO) 1.4 % (0-2); EOSINOPHILS % (AUTO) 1.5 % (0-6); HEMOGLOBIN 8.4 g/dL (12.0-15.5); LYMPHOCYTES % (AUTO) 20.9 % (13-45); MEAN CORPUSCULAR HEMOGLOBIN 40.9 pg (27.0-33.4); MEAN CORPUSCULAR VOLUME 117 fl (80-97); PLATELET COUNT 275 10^3/uL (150-450); RED BLOOD COUNT 2.06 10^6/uL (3.72-5.28); RED CELL DISTRIBUTION WIDTH 28.5 % (11.5-14.0); RETICULOCYTE COUNT (AUTO) 3.93 % (0.66-2.85); SEGMENTED NEUTROPHILS % (AUTO) 71.2 % (42-78); TOTAL CELLS COUNTED % (AUTO) 100 %; WHITE BLOOD COUNT 6.2 10^3/uL (4.0-10.5)
[2018-12-26 22:46] LABS: ALANINE AMINOTRANSFERASE 49 U/L (9-52); ALBUMIN 4.7 g/dL (3.5-5.0); ALKALINE PHOSPHATASE 169 U/L (38-126); ANION GAP 10 (5-19); ASPARTATE AMINO TRANSFERASE 73 U/L (14-36); BILIRUBIN,DIRECT 0.7 mg/dL (0.0-0.4); BILIRUBIN,TOTAL 4.3 mg/dL (0.2-1.3); BLOOD UREA NITROGEN 11 mg/dL (7-20); CALCIUM 9.5 mg/dL (8.4-10.2); CARBON DIOXIDE 24 mmol/L (22-30); CHLORIDE 104 mmol/L (98-107); GLUCOSE 116 mg/dL (75-110); POTASSIUM 4.3 mmol/L (3.6-5.0); SODIUM 137.9 mmol/L (137-145); TOTAL PROTEIN 8.1 g/dL (6.3-8.2)
--- NOTE | 2018-12-26 23:07 | RADIOLOGY REPORT (SQ) ---
EXAM DESCRIPTION: CT ABDOMEN PELVIS WITH IV CONTRAST COMPLETED DATE/TME: 12/26/2018 22:16 CLINICAL HISTORY: 48 years, Female, LLQ to L flank pain, hx sickle cell disease COMPARISON: 06/01/2018 CT TECHNIQUE: 440 Images stored on PACS. All CT scanners at this facility use dose modulation, iterative reconstruction, and/or weight based dosing when appropriate to reduce radiation dose to as low as reasonably achievable (ALARA). [facility]: Dose Right [facility]: CareDose [facility]: Dose Right [facility]: Teradose 4D [facility]: [employer] LIMITATIONS: None. FINDINGS: Limited evaluation of the lung bases show scarring in the left lung base. Osseous structures are grossly intact. Hepatomegaly. Presumed splenectomy. The adrenal glands, pancreas, kidneys are unremarkable. Status post cholecystectomy. No gross evidence for bowel obstruction. Large amount of stool in the colon. No free air or free fluid. Appendix not well seen. No pericecal inflammation. IMPRESSION: Abundant stool in the colon. Hepatomegaly. TECHNICAL DOCUMENTATION: Quality ID # [id number]: Final reports with documentation of one or more dose reduction techniques (e.g., Automated exposure control, adjustment of the mA and/or kV according to patient size, use of iterative reconstruction technique) copyright 2010 [employer]- All Rights Reserved
[2018-12-26 23:08] LABS: ANISOCYTOSIS 4+; HYPOCHROMASIA 2+; POIKILOCYTOSIS 2+; SICKLE RED CELLS 1+; TARGET CELLS 1+
[2018-12-26 23:10] LABS: PLATELET COMMENT ADEQUATE
[2018-12-26] MEDS ORDERED: SODIUM BICARBONATE 8.4% INJ 50 MEQ/50 ML DISP.SYRIN IV ONE (23:46)
[2018-12-26] MEDS ORDERED: CALCIUM GLUCONATE 1000 MG/10 ML INJ IV ONE (23:47)
[2018-12-26] MEDS ORDERED: INSULIN REG, HUMAN 100 UNIT/ML 3 ML VIAL (PYX) IV ONE (23:47)
[2018-12-27 01:15] LABS: APPEARANCE,URINE CLEAR; BILIRUBIN,URINE NEGATIVE (NEGATIVE); COLOR,URINE YELLOW; GLUCOSE, URINE NEGATIVE (NEGATIVE); KETONES,URINE NEGATIVE (NEGATIVE); LEUKOCYTE ESTERASE,URINE SMALL (NEGATIVE); NITRITE,URINE NEGATIVE (NEGATIVE); PROTEIN,URINE NEGATIVE (NEGATIVE); URINE SPECIFIC GRAVITY 1.033
[2018-12-27] MEDS ORDERED: DIPHENHYDRAMINE HCL 50 MG/ML VIAL IV ONE (01:28)
[2018-12-27] MEDS ORDERED: HYDROMORPHONE HCL INJ/PF 2 MG/ML AMPULE IV ONE (01:28)
[2018-12-27] MEDS ORDERED: CEFTRIAXONE 1 GM/D5W RTU 1 GM/50 ML RTUPB IV ONE (02:00)
[2018-12-27 04:13] VITALS: BP 116/74
== END 2018-12-27 04:25 | disposition home or self-care (01) ==
LOC: ER 20:02
DX: N30.00 Acute cystitis without hematuria (principal); D57.219 Sickle-cell/Hb-C disease with crisis, unspecified; L50.9 Urticaria, unspecified; Z90.49 Acquired absence of other specified parts of digestive tract; L03.116 Cellulitis of left lower limb; M79.604 Pain in right leg; M79.605 Pain in left leg; M79.601 Pain in right arm; M79.602 Pain in left arm; R07.89 Other chest pain; M54.9 Dorsalgia, unspecified; R30.0 Dysuria; R50.9 Fever, unspecified; R11.0 Nausea
CPT/HCPCS: 93005; 36591; 96376; 99284; 96361; 96375; 96365; 96366; 36415; 87040; 87086; 85025; 85610; 85045; 80053; 81001; 84484; 82803; 83605; 71046; 74177; 93010; J1200; J1170 ×2; J2405; J7030; J0696; J1642

== ENCOUNTER 2018-12-30 17:11 | Inpatient (IN) | payer MEDICAID ==
[2018-12-30] MEDS ORDERED: NORMAL SALINE 1000 ML 1,000 ML IV ONE ×2 (17:54→20:44)
[2018-12-30] MEDS ORDERED: HYDROMORPHONE HCL INJ/PF 2 MG/ML AMPULE IV ONE ×3 (17:54→22:00)
[2018-12-30] MEDS ORDERED: DIPHENHYDRAMINE HCL 50 MG/ML VIAL IV ONE ×2 (17:54→20:44)
[2018-12-30] MEDS ORDERED: ONDANSETRON HCL INJ/PF 4 MG/2 ML SDV IV ONE ×2 (17:54→20:44)
--- NOTE | 2018-12-30 17:56 | ER Document Report ---
ED Medical Screen (RME) - General Chief Complaint: Chest Pain Stated Complaint: WEAKNESS Time Seen by Provider: 12/30/18 17:50 Primary Care Provider: SAVANNA AWAN MD [Primary Care Provider] - Follow up as needed Notes: Patient is a 48-year-old female history of sickle cell anemia presents to the emergency department for "typical crisis." Patient is well-known to the emergency department for same. Patient states bilateral arms, bilateral legs, chest, lower back hurt. Patient states this is "my typical pain." Patient states "typically Dilaudid helps and then I go home." GENERAL: Alert, interacts well. No acute distress. LUNGS: Clear to auscultation bilaterally, no wheezes, rales, or rhonchi. No respiratory distress. I have greeted and performed a rapid initial assessment of this patient. A comprehensive ED assessment and evaluation of the patient, analysis of test results and completion of the medical decision making process will be conducted by additional ED providers. I have specifically instructed the patient or family members with the patient to immediately return to any nursing staff should anything change in the patient's condition or with their chief complaint. This medical record was dictated with voice recognizing software. There may be grammatical, syntax errors that are unintended. TRAVEL OUTSIDE OF THE [place] IN LAST 30 DAYS: No - Related Data Allergies/Adverse Reactions: doxycycline [Doxycycline] Allergy (Severe, Verified 12/30/18 17:12) Past Medical History - Social History Frequency of alcohol use: None Drug Abuse: None - Past Medical History Cardiac Medical History: Reports: Hx Heart Murmur Denies: Hx Atrial Fibrillation, Hx Congestive Heart Failure, Hx Coronary Artery Disease, Hx Heart Attack, Hx Hypercholesterolemia, Hx Hypertension, Hx Peripheral Vascular Disease Pulmonary Medical History: Denies: Hx Tuberculosis Neurological Medical History: Denies: Hx Seizures Renal/ Medical History: Reports: Hx Ovarian Cysts. 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 Denies: Hx HIV Past Surgical History: Reports: Hx Appendectomy, Hx Section, Hx Cholecystectomy, Hx Orthopedic Surgery - R knee, Hx Tonsillectomy. Denies: Hx Bowel Surgery, Hx Coronary Artery Bypass Graft, Hx Gastric Bypass Surgery, Hx Herniorrhaphy, Hx Mastectomy, Hx Pacemaker, Hx Tubal Ligation - Immunizations Immunizations up to date: Yes Hx Diphtheria, Pertussis, Tetanus Vaccination: Yes History of Influenza Vaccine for 03/2017 - 08/2017 Season: No Physical Exam - Vital signs Vitals: Temp Pulse Resp BP Pulse Ox 99.1 F 80 24 H 103/64 100 12/30/18 17:33 12/30/18 17:33 12/30/18 17:33 12/30/18 17:33 12/30/18 17:33 Course - Vital Signs Vital signs: Temp Pulse Resp BP Pulse Ox 99.1 F 80 24 H 103/64 100 12/30/18 17:33 12/30/18 17:33 12/30/18 17:33 12/30/18 17:33 12/30/18 17:33 Doctor's Discharge - Discharge Referrals: SAVANNA AWAN MD [Primary Care Provider] - Follow up as needed
[2018-12-30 19:07] LABS: ABSOLUTE RETICS # 0.061 10^6/uL (0.028-0.122); HEMOGLOBIN 8.4 g/dL (12.0-15.5); MEAN CORPUSCULAR HEMOGLOBIN 40.8 pg (27.0-33.4); MEAN CORPUSCULAR HGB CONC 34.9 g/dL (32.0-36.0); MEAN CORPUSCULAR VOLUME 117 fl (80-97); PLATELET COUNT 327 10^3/uL (150-450); RED BLOOD COUNT 2.06 10^6/uL (3.72-5.28); RETICULOCYTE COUNT (AUTO) 2.97 % (0.66-2.85); WHITE BLOOD COUNT 6.5 10^3/uL (4.0-10.5)
[2018-12-30 19:16] LABS: ABSOLUTE LYMPHOCYTES# (MANUAL) 1.8 10^3/uL (0.5-4.7); ABSOLUTE MONOCYTES # (MANUAL) 0.8 10^3/uL (0.1-1.4); ANISOCYTOSIS 3+; BASOPHILS % (MANUAL) 0 % (0-2); EOSINOPHILS % (MANUAL) 2 % (0-6); HYPOCHROMASIA SLIGHT; LYMPHOCYTES % (MANUAL) 28 % (13-45); MONOCYTES % (MANUAL) 12 % (3-13); PLATELET COMMENT ADEQUATE; POIKILOCYTOSIS 2+; POLYCHROMASIA 1+; SCHISTOCYTES 1+; SEGMENTED NEUTROPHILS % (MAN) 58 % (42-78); SICKLE RED CELLS 1+; TARGET CELLS 2+; TOTAL CELLS COUNTED 100
[2018-12-30 19:20] LABS: ALANINE AMINOTRANSFERASE 53 U/L (9-52); ALBUMIN 4.7 g/dL (3.5-5.0); ALKALINE PHOSPHATASE 179 U/L (38-126); ANION GAP 9 (5-19); ASPARTATE AMINO TRANSFERASE 76 U/L (14-36); BILIRUBIN,DIRECT 0.7 mg/dL (0.0-0.4); BILIRUBIN,TOTAL 4.4 mg/dL (0.2-1.3); BLOOD UREA NITROGEN 7 mg/dL (7-20); CALCIUM 9.8 mg/dL (8.4-10.2); CARBON DIOXIDE 22 mmol/L (22-30); CHLORIDE 110 mmol/L (98-107); GLUCOSE 105 mg/dL (75-110); POTASSIUM 3.9 mmol/L (3.6-5.0); TOTAL PROTEIN 8.5 g/dL (6.3-8.2)
--- NOTE | 2018-12-30 19:45 | RADIOLOGY REPORT (SQ) ---
EXAM DESCRIPTION: CHEST 2 VIEWS COMPLETED DATE/TIME: 12/30/2018 7:20 pm REASON FOR STUDY: SC with pain COMPARISON: Chest x-ray 12/26/2018. EXAM PARAMETERS: NUMBER OF VIEWS: two views TECHNIQUE: Digital Frontal and Lateral radiographic views of the chest acquired. RADIATION DOSE: NA LIMITATIONS: none FINDINGS: LUNGS AND PLEURA: No consolidation, pneumothorax or pleural effusion. MEDIASTINUM AND HILAR STRUCTURES: No masses or contour abnormalities. HEART AND VASCULAR STRUCTURES: Heart normal size. No evidence for failure. BONES: No acute findings. HARDWARE: There is a left-sided Port-A-Cath with the tip overlying the region of the SVC. IMPRESSION: NO ACUTE RADIOGRAPHIC FINDING IN THE CHEST. TECHNICAL DOCUMENTATION: JOB ID: [id number] [employer]- All Rights Reserved Reading location - IP/workstation name: [email or web address]
[2018-12-30 20:03] LABS: APPEARANCE,URINE CLEAR; BILIRUBIN,URINE NEGATIVE (NEGATIVE); COLOR,URINE YELLOW; GLUCOSE, URINE NEGATIVE (NEGATIVE); KETONES,URINE NEGATIVE (NEGATIVE); LEUKOCYTE ESTERASE,URINE NEGATIVE (NEGATIVE); NITRITE,URINE NEGATIVE (NEGATIVE); PROTEIN,URINE NEGATIVE (NEGATIVE); URINE SPECIFIC GRAVITY 1.011; UROBILINOGEN,URINE NEGATIVE mg/dL (<2.0)
[2018-12-30 20:18] LABS: NT PRO BNP 59 pg/mL (<125)
[2018-12-30 20:20] LABS: CREATINE KINASE MB < 0.22 ng/mL (<4.55); TROPONIN I < 0.012 ng/mL
--- NOTE | 2018-12-30 21:39 | ER Document Report ---
ED General - General Chief Complaint: Chest Pain Stated Complaint: WEAKNESS Time Seen by Provider: 12/30/18 17:50 Mode of Arrival: Ambulatory Information source: Patient TRAVEL OUTSIDE OF THE [place] IN LAST 30 DAYS: No - HPI Onset: Yesterday Onset/Duration: Sudden Quality of pain: Sharp Severity: Severe Pain Level: 5 Associated symptoms: Chest pain Exacerbated by: Denies Relieved by: Denies Similar symptoms previously: Yes Recently seen / treated by doctor: Yes - Related Data Allergies/Adverse Reactions: doxycycline [Doxycycline] Allergy (Severe, Verified 12/30/18 17:12) Past Medical History - General Information source: Patient - Social History Smoking Status: Never Smoker Frequency of alcohol use: None Drug Abuse: None Family History: Reviewed & Not Pertinent Patient has suicidal ideation: No Patient has homicidal ideation: No - Past Medical History Cardiac Medical History: Reports: Hx Heart Murmur Denies: Hx Atrial Fibrillation, Hx Congestive Heart Failure, Hx Coronary Artery Disease, Hx Heart Attack, Hx Hypercholesterolemia, Hx Hypertension, Hx Peripheral Vascular Disease Pulmonary Medical History: Denies: Hx Tuberculosis Neurological Medical History: Denies: Hx Seizures Renal/ Medical History: Reports: Hx Ovarian Cysts. 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 Denies: Hx HIV Past Surgical History: Reports: Hx Appendectomy, Hx Section, Hx Cholec ystectomy, Hx Orthopedic Surgery - R knee, Hx Tonsillectomy. Denies: Hx Bowel Surgery, Hx Coronary Artery Bypass Graft, Hx Gastric Bypass Surgery, Hx Herniorrhaphy, Hx Mastectomy, Hx Pacemaker, Hx Tubal Ligation - Immunizations Immunizations up to date: Yes Hx Diphtheria, Pertussis, Tetanus Vaccination: Yes Hx Pneumococcal Vaccination: 03/20/14 Review of Systems - Review of Systems Constitutional: No symptoms reported EENT: No symptoms reported Cardiovascular: Chest pain Respiratory: No symptoms reported Gastrointestinal: No symptoms reported Genitourinary: No symptoms reported Female Genitourinary: No symptoms reported Musculoskeletal: Back pain, Joint pain Skin: No symptoms reported Hematologic/Lymphatic: No symptoms reported Neurological/Psychological: No symptoms reported -: Yes All other systems reviewed and negative Physical Exam - Vital signs Vitals: Temp Pulse Resp BP Pulse Ox 99.1 F 80 24 H 103/64 100 12/30/18 17:33 12/30/18 17:33 12/30/18 17:33 12/30/18 17:33 12/30/18 17:33 Interpretation: Normal - General General appearance: Appears well, Alert In distress: Moderate - HEENT Head: Normocephalic, Atraumatic Eyes: Normal Pupils: PERRL - Respiratory Respiratory status: No respiratory distress Chest status: Nontender Breath sounds: Normal Chest palpation: Normal - Cardiovascular Rhythm: Regular Heart sounds: Normal auscultation Murmur: No - Abdominal Inspection: Normal Distension: No distension Bowel sounds: Normal Tenderness: Nontender Organomegaly: No organomegaly - Back Back: Normal, Nontender - Extremities General upper extremity: Normal inspection, Nontender, Normal color, Normal ROM, Normal temperature General lower extremity: Normal inspection, Nontender, Normal color, Normal ROM, Normal temperature, Normal weight bearing. No: Kin's sign - Neurological Neuro grossly intact: Yes Cognition: Normal Orientation: AAOx4 Zeeshan Coma Scale Eye Opening: Spontaneous [place] Coma Scale Verbal: Oriented Zeeshan Coma Scale Motor: Obeys Commands [place] Coma Scale Total: 15 Speech: Normal Motor strength normal: LUE, RUE, LLE, RLE Sensory: Normal - Psychological Associated symptoms: Normal affect, Normal mood - Skin Skin Temperature: Warm Skin Moisture: Dry Skin Color: Normal Course - Vital Signs Vital signs: Temp Pulse Resp BP Pulse Ox 99.1 F 80 14 116/60 100 12/30/18 17:33 12/30/18 17:33 12/30/18 22:02 12/30/18 22:02 12/30/18 22:02 - Laboratory Result Diagrams: 12/30/18 18:50 12/30/18 18:50 Laboratory results interpreted by me: 12/30/18 12/30/18 12/30/18 18:50 18:50 18:50 RBC 2.06 L Hgb 8.4 L Hct 24.0 L MCV 117 H MCH 40.8 H RDW 27.0 H Retic Count (auto) 2.97 H Chloride 110 H Creatinine 0.51 L Iron Ferritin Total Bilirubin 4.4 H Direct Bilirubin 0.7 H AST 76 H ALT 53 H Alkaline Phosphatase 179 H Creatine Kinase 22 L Total Protein 8.5 H 12/30/18 18:50 RBC Hgb Hct MCV MCH RDW Retic Count (auto) Chloride Creatinine Iron 218.4 H Ferritin 3250.00 H Total Bilirubin Direct Bilirubin AST ALT Alkaline Phosphatase Creatine Kinase Total Protein - Diagnostic Test Radiology reviewed: Reports reviewed Radiology results interpreted by me: 12/30/18 21:56 Chest x-ray is negative. - EKG Interpretation by Me EKG shows normal: Sinus rhythm Rate: Normal Rhythm: NSR When compared to previous EKG there are: No significant change Additional EKG results interpreted by me: 12/30/18 21:56 EKG is unchanged from old EKG on December 26, 2018. No STEMI. - Transfer of Care Notes: 12/30/18 21:57 I consulted the patient's primary care provider Dr. Roberson. He will admit patient to the hospital for pain control. Discharge - Discharge Clinical Impression: Sickle cell anemia with crisis, Sickle cell pain crisis Condition: Stable Disposition: ADMITTED INPATIENT Admitting Provider: Da Unit Admitted: Telemetry
[2018-12-30 21:43] LABS: IRON(TIBC) 218.4 ug/dL (37-170); PHOSPHORUS 3.8 mg/dL (2.5-4.5)
[2018-12-30 22:10] LABS: FREE T4 (FREE THYROXINE) 0.9 ng/dL (0.78-2.19)
[2018-12-30 22:24] LABS: THYROID STIMULATING HORMONE 0.84 uIU/mL (0.47-4.68)
[2018-12-30] MEDS: NORMAL SALINE 1000 ML 1,000 ML IV PRN (22:37)
[2018-12-31 00:11] LABS: URINE AMPHETAMINES SCREEN NEGATIVE; URINE BARBITURATES SCREEN NEGATIVE; URINE BENZODIAZEPINES SCREEN NEGATIVE; URINE COCAINE SCREEN NEGATIVE; URINE MARIJUANA (THC) SCREEN NEGATIVE; URINE METHADONE SCREEN NEGATIVE; URINE PHENCYCLIDINE SCREEN NEGATIVE
[2018-12-31 00:30] LABS: INTERNATIONAL RATION (INR) 1.46; PROTHROMBIN TIME 17.9 SEC (11.4-15.4)
[2018-12-31 01:39] LABS: CREATINE KINASE MB < 0.22 ng/mL (<4.55); TROPONIN I < 0.012 ng/mL
[2018-12-31] MEDS: HYDROMORPHONE HCL INJ/PF 2 MG/ML AMPULE IV SCH ×4 (02:11→20:08)
[2018-12-31] MEDS: OXYCODONE HCL IR 5 MG TABLET PO PRN ×3 (06:28→18:40)
[2018-12-31] MEDS: GABAPENTIN 300 MG CAPSULE PO SCH ×3 (06:28→22:13)
[2018-12-31 07:00] LABS: HEMATOCRIT 20.1 % (36.0-47.0); MEAN CORPUSCULAR HEMOGLOBIN 40.6 pg (27.0-33.4); MEAN CORPUSCULAR HGB CONC 34.9 g/dL (32.0-36.0); MEAN CORPUSCULAR VOLUME 116 fl (80-97); PLATELET COUNT 256 10^3/uL (150-450); RED BLOOD COUNT 1.73 10^6/uL (3.72-5.28); RED CELL DISTRIBUTION WIDTH 26.3 % (11.5-14.0); WHITE BLOOD COUNT 7.2 10^3/uL (4.0-10.5)
[2018-12-31 07:14] LABS: ABSOLUTE MONOCYTES # (MANUAL) 0.6 10^3/uL (0.1-1.4); BASOPHILS % (MANUAL) 1 % (0-2); EOSINOPHILS % (MANUAL) 0 % (0-6); LYMPHOCYTES % (MANUAL) 42 % (13-45); MONOCYTES % (MANUAL) 8 % (3-13); SEGMENTED NEUTROPHILS % (MAN) 49 % (42-78); TOTAL CELLS COUNTED 100
[2018-12-31 07:15] LABS: ANISOCYTOSIS 3+; PLATELET COMMENT ADEQUATE; POIKILOCYTOSIS 2+; POLYCHROMASIA SLIGHT; SCHISTOCYTES 1+; SICKLE RED CELLS 2+; TARGET CELLS 1+
[2018-12-31 07:25] LABS: ALANINE AMINOTRANSFERASE 47 U/L (9-52); ALBUMIN 3.5 g/dL (3.5-5.0); ALKALINE PHOSPHATASE 117 U/L (38-126); ANION GAP 7 (5-19); ASPARTATE AMINO TRANSFERASE 59 U/L (14-36); BILIRUBIN,DIRECT 0.5 mg/dL (0.0-0.4); BILIRUBIN,TOTAL 4.1 mg/dL (0.2-1.3); BLOOD UREA NITROGEN 8 mg/dL (7-20); CALCIUM 8.7 mg/dL (8.4-10.2); CARBON DIOXIDE 21 mmol/L (22-30); CHLORIDE 113 mmol/L (98-107); GLUCOSE 103 mg/dL (75-110); POTASSIUM 3.9 mmol/L (3.6-5.0); TOTAL PROTEIN 6.6 g/dL (6.3-8.2)
[2018-12-31 07:34] LABS: CREATINE KINASE MB < 0.22 ng/mL (<4.55); TROPONIN I < 0.012 ng/mL
[2018-12-31] MEDS ORDERED: ENOXAPARIN SODIUM INJ 40 MG/0.4 ML DISP.SYRIN SUBCUT SCH (10:00)
[2018-12-31] MEDS: SULFAMETHOXAZOLE/TRIMETHOPRIM 800-160 MG TABLET PO SCH ×2 (10:25→17:52)
[2018-12-31] MEDS: FOLIC ACID 1 MG TABLET PO SCH (10:25)
[2018-12-31] MEDS: OXYCODONE HCL SR 10 MG TABLET PO SCH ×2 (10:25→22:13)
[2018-12-31] MEDS: HYDROXYUREA 500 MG CAPSULE PO SCH ×3 (10:25→17:52)
[2018-12-31] MEDS: MULTIVITAMIN TABLET PO SCH (10:25)
[2018-12-31] MEDS: TRIAMCINOLONE ACETONIDE 0.1% CREAM 15 GM TOP SCH ×2 (10:26→17:53)
[2018-12-31] MEDS: NORMAL SALINE 1000 ML 1,000 ML IV PRN (11:12)
[2018-12-31] MEDS: DIPHENHYDRAMINE HCL 50 MG/ML VIAL IV PRN ×2 (12:34→18:41)
[2018-12-31] MEDS: ONDANSETRON HCL INJ/PF 4 MG/2 ML SDV IV PRN ×2 (14:06→20:08)
[2018-12-31 15:00] LABS: CREATINE KINASE MB < 0.22 ng/mL (<4.55); TROPONIN I < 0.012 ng/mL
--- NOTE | 2018-12-31 15:32 | PDOC H&P ---
History of Present Illness Admission Date/PCP: 12/30/18 21:46 HOMA BARRAZA MD History of Present Illness: WILLIE ALAN is a 48 year old female, She has a history of sickle cell disease, she came to the emergency room for evaluation of generalized body pains. 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, The ferritin is 3250, the percentage saturation of the transferrin is 80% Past Medical History Cardiac Medical History: Reports: Heart Murmur Psychiatric Medical History: Denies: Depression Hematology: Reports: Anemia - Sickle Cell, Sickle Cell Disease Infectious Medical History: 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 Past Surgical History Past Surgical History: Reports: Appendectomy, Section, Cholecystectomy, Orthopedic Surgery - R knee, Tonsillectomy Denies: Amputation, Coronary Artery Bypass Graft, Gastric Bypass Surgery, Herniorrhaphy, Mastectomy, Pacemaker, Tubal Ligation Social History Smoking Status: Never Smoker Frequency of Alcohol Use: None Hx Recreational Drug Use: No Drugs: None Hx Prescription Drug Abuse: No Family History Family History: Reviewed & Not Pertinent Parental Family History Reviewed: Yes Children Family History Reviewed: Yes Sibling(s) Family History Reviewed.: Yes Medication/Allergy Home Medications: Epoetin Federico [Procrit Inj 40,000 Unit/1 ml Vial (Renal)] 60,000 unit SQ FR 11/20/18 Folic Acid [Folvite 1 mg Tablet] 1 mg PO DAILY 11/20/18 Gabapentin [Neurontin 300 mg Capsule] 300 mg PO Q8 11/20/18 Hydroxyurea [Hydrea 500 mg Capsule] 500 mg PO TID 11/20/18 Multivitamin [Multiple Vitamins] 1 tab PO DAILY 11/20/18 Oxycodone HCl [Oxycodone HCl 10 MG Tablet] 10 mg PO Q6HP PRN 11/20/18 Oxycodone HCl [Oxycontin] 30 mg PO Q12 11/20/18 Promethazine HCl [Phenergan 25 mg Tablet] 25 mg PO Q6HP PRN 11/20/18 Rivaroxaban [Xarelto] 20 mg PO QPM 11/20/18 Sulfamethoxazole/Trimethoprim [Bactrim Ds Tablet] 1 each PO BID #20 tablet 12/27/18 Triamcinolone Acetonide [Aristocort 0.1% Cream] 1 applic TP BID #1 tub 12/27/18 Allergies/Adverse Reactions: doxycycline [Doxycycline] Allergy (Severe, Verified 12/30/18 17:12) Physical Exam Vital Signs: Temp Pulse Resp BP Pulse Ox 98.9 F 73 17 116/65 100 12/31/18 12:00 12/31/18 12:00 12/31/18 12:00 12/31/18 12:00 12/31/18 12:00 Intake & Output 12/30/18 12/31/18 01/01/19 06:59 06:59 06:59 Intake Total 2595 1360 Balance 2595 1360 Weight 61.3 kg Results Laboratory Results: 12/31/18 06:22 12/31/18 06:22 12/30/18 12/30/18 12/30/18 18:50 18:50 18:50 WBC 6.5 RBC 2.06 L Hgb 8.4 L Hct 24.0 L MCV 117 H MCH 40.8 H MCHC 34.9 RDW 27.0 H Plt Count 327 Seg Neutrophils % Not Reportable Lymphocytes % Not Reportable Monocytes % Not Reportable Eosinophils % Not Reportable Basophils % Not Reportable Absolute Neutrophils Not Reportable Absolute Lymphocytes Not Reportable Absolute Monocytes Not Reportable Absolute Eosinophils Not Reportable Absolute Basophils Not Reportable Retic Count (auto) 2.97 H Absolute Retic 0.061 Sodium 141.4 Potassium 3.9 Chloride 110 H Carbon Dioxide 22 Anion Gap 9 BUN 7 Creatinine 0.51 L Est GFR ( Amer) > 60 Est GFR (Non-Af Amer) > 60 Glucose 105 Calcium 9.8 Phosphorus Magnesium Iron TIBC % Saturation Ferritin Total Bilirubin 4.4 H AST 76 H ALT 53 H Alkaline Phosphatase 179 H Ammonia Total Protein 8.5 H Albumin 4.7 Amylase Lipase Vitamin B12 Folate TSH Free T4 Serum HCG, Qual NEGATIVE Urine Color Urine Appearance Urine pH Ur Specific [place] Urine Protein Urine Glucose (UA) Urine Ketones Urine Blood Urine Nitrite Ur Leukocyte Esterase Urine WBC (Auto) Urine RBC (Auto) 12/30/18 12/30/18 12/30/18 18:50 18:50 18:50 WBC RBC Hgb Hct MCV MCH MCHC RDW Plt Count Seg Neutrophils % Lymphocytes % Monocytes % Eosinophils % Basophils % Absolute Neutrophils Absolute Lymphocytes Absolute Monocytes Absolute Eosinophils Absolute Basophils Retic Count (auto) Cancelled Absolute Retic Cancelled Sodium Potassium Chloride Carbon Dioxide Anion Gap BUN Creatinine Est GFR ( Amer) Est GFR (Non-Af Amer) Glucose Calcium Phosphorus 3.8 Magnesium 2.2 Iron 218.4 H TIBC 256 % Saturation 85 Ferritin 3250.00 H Total Bilirubin AST ALT Alkaline Phosphatase Ammonia Total Protein Albumin Amylase 84 Lipase 157.4 Vitamin B12 370.0 Folate 16.10 TSH Free T4 Serum HCG, Qual Urine Color Urine Appearance Urine pH Ur Specific [place] Urine Protein Urine Glucose (UA) Urine Ketones Urine Blood Urine Nitrite Ur Leukocyte Esterase Urine WBC (Auto) Urine RBC (Auto) 12/30/18 12/30/18 12/30/18 18:50 19:35 23:45 WBC RBC Hgb Hct MCV MCH MCHC RDW Plt Count Seg Neutrophils % Lymphocytes % Monocytes % Eosinophils % Basophils % Absolute Neutrophils Absolute Lymphocytes Absolute Monocytes Absolute Eosinophils Absolute Basophils Retic Count (auto) Absolute Retic Sodium Potassium Chloride Carbon Dioxide Anion Gap BUN Creatinine Est GFR ( Amer) Est GFR (Non-Af Amer) Glucose Calcium Phosphorus Magnesium Iron TIBC % Saturation Ferritin Total Bilirubin AST ALT Alkaline Phosphatase Ammonia 27.1 Total Protein Albumin Amylase Lipase Vitamin B12 Folate TSH 0.84 Free T4 0.90 Serum HCG, Qual Urine Color YELLOW Urine Appearance CLEAR Urine pH 7.0 Ur Specific [place] 1.011 Urine Protein NEGATIVE Urine Glucose (UA) NEGATIVE Urine Ketones NEGATIVE Urine Blood NEGATIVE Urine Nitrite NEGATIVE Ur Leukocyte Esterase NEGATIVE Urine WBC (Auto) 1 Urine RBC (Auto) 0 12/31/18 12/31/18 06:22 06:22 WBC 7.2 RBC 1.73 L Hgb 7.0 L Hct 20.1 L MCV 116 H MCH 40.6 H MCHC 34.9 RDW 26.3 H Plt Count 256 Seg Neutrophils % Not Reportable Lymphocytes % Not Reportable Monocytes % Not Reportable Eosinophils % Not Reportable Basophils % Not Reportable Absolute Neutrophils Not Reportable Absolute Lymphocytes Not Reportable Absolute Monocytes Not Reportable Absolute Eosinophils Not Reportable Absolute Basophils Not Reportable Retic Count (auto) Absolute Retic Sodium 141.3 Potassium 3.9 Chloride 113 H Carbon Dioxide 21 L Anion Gap 7 BUN 8 Creatinine 0.60 Est GFR ( Amer) > 60 Est GFR (Non-Af Amer) > 60 Glucose 103 Calcium 8.7 Phosphorus Magnesium Iron TIBC % Saturation Ferritin Total Bilirubin 4.1 H AST 59 H ALT 47 Alkaline Phosphatase 117 Ammonia Total Protein 6.6 Albumin 3.5 Amylase Lipase Vitamin B12 Folate TSH Free T4 Serum HCG, Qual Urine Color Urine Appearance Urine pH Ur Specific [place] Urine Protein Urine Glucose (UA) Urine Ketones Urine Blood Urine Nitrite Ur Leukocyte Esterase Urine WBC (Auto) Urine RBC (Auto) 12/30/18 12/30/18 12/31/18 18:50 18:50 00:43 Creatine Kinase 22 L 20 L CK-MB (CK-2) < 0.22 Troponin I < 0.012 NT-Pro-B Natriuret Pep 59 12/31/18 12/31/18 12/31/18 00:43 06:22 06:22 Creatine Kinase 24 L CK-MB (CK-2) < 0.22 < 0.22 Troponin I < 0.012 < 0.012 NT-Pro-B Natriuret Pep 12/31/18 12/31/18 12:50 14:10 Creatine Kinase 26 L CK-MB (CK-2) < 0.22 Troponin I < 0.012 NT-Pro-B Natriuret Pep Impressions: Chest X-Ray 12/30/18 17:54 IMPRESSION: NO ACUTE RADIOGRAPHIC FINDING IN THE CHEST. Assessment & Plan - Diagnosis (1) Vaso-occlusive sickle cell crisis Is this a current diagnosis for this admission?: Yes Plan: Start pain medication ,IV fluid (2) Secondary hemochromatosis Is this a current diagnosis for this admission?: Yes (3) Hemolytic anemia Qualifiers: Hemolytic anemia type: other hemoglobinopathy Qualified Code(s): D58.2 - Other hemoglobinopathies Is this a current diagnosis for this admission?: Yes
[2018-12-31] MEDS: RIVAROXABAN 10 MG TABLET PO SCH (17:52)
--- NOTE | 2018-12-31 18:30 | PDOC PROGRESS REPORT ---
Subjective Progress Note for:: 12/31/18 Subjective:: Patient seen by the bedside, she continues to continues of pain Reason For Visit: SCD WITH BONE PAIN CRISIS,HEMOLYTIC CRISIS Physical Exam Vital Signs: Temp Pulse Resp BP Pulse Ox 98.8 F 85 12 112/65 100 12/31/18 16:00 12/31/18 16:00 12/31/18 16:00 12/31/18 16:00 12/31/18 16:00 Intake & Output 12/30/18 12/31/18 01/01/19 06:59 06:59 06:59 Intake Total 2595 1360 Balance 2595 1360 Weight 61.3 kg General appearance: PRESENT: no acute distress Eye exam: PRESENT: PERRLA Respiratory exam: PRESENT: clear to auscultation carolyn Cardiovascular exam: PRESENT: +S1, +S2 GI/Abdominal exam: PRESENT: soft Neurological exam: PRESENT: alert Results Laboratory Results: 12/31/18 06:22 12/31/18 06:22 12/30/18 12/30/18 12/30/18 18:50 18:50 18:50 WBC 6.5 RBC 2.06 L Hgb 8.4 L Hct 24.0 L MCV 117 H MCH 40.8 H MCHC 34.9 RDW 27.0 H Plt Count 327 Seg Neutrophils % Not Reportable Lymphocytes % Not Reportable Monocytes % Not Reportable Eosinophils % Not Reportable Basophils % Not Reportable Absolute Neutrophils Not Reportable Absolute Lymphocytes Not Reportable Absolute Monocytes Not Reportable Absolute Eosinophils Not Reportable Absolute Basophils Not Reportable Retic Count (auto) 2.97 H Absolute Retic 0.061 Sodium 141.4 Potassium 3.9 Chloride 110 H Carbon Dioxide 22 Anion Gap 9 BUN 7 Creatinine 0.51 L Est GFR ( Amer) > 60 Est GFR (Non-Af Amer) > 60 Glucose 105 Calcium 9.8 Phosphorus Magnesium Iron TIBC % Saturation Ferritin Total Bilirubin 4.4 H AST 76 H ALT 53 H Alkaline Phosphatase 179 H Ammonia Total Protein 8.5 H Albumin 4.7 Amylase Lipase Vitamin B12 Folate TSH Free T4 Serum HCG, Qual NEGATIVE Urine Color Urine Appearance Urine pH Ur Specific [place] Urine Protein Urine Glucose (UA) Urine Ketones Urine Blood Urine Nitrite Ur Leukocyte Esterase Urine WBC (Auto) Urine RBC (Auto) 12/30/18 12/30/18 12/30/18 18:50 18:50 18:50 WBC RBC Hgb Hct MCV MCH MCHC RDW Plt Count Seg Neutrophils % Lymphocytes % Monocytes % Eosinophils % Basophils % Absolute Neutrophils Absolute Lymphocytes Absolute Monocytes Absolute Eosinophils Absolute Basophils Retic Count (auto) Cancelled Absolute Retic Cancelled Sodium Potassium Chloride Carbon Dioxide Anion Gap BUN Creatinine Est GFR ( Amer) Est GFR (Non-Af Amer) Glucose Calcium Phosphorus 3.8 Magnesium 2.2 Iron 218.4 H TIBC 256 % Saturation 85 Ferritin 3250.00 H Total Bilirubin AST ALT Alkaline Phosphatase Ammonia Total Protein Albumin Amylase 84 Lipase 157.4 Vitamin B12 370.0 Folate 16.10 TSH Free T4 Serum HCG, Qual Urine Color Urine Appearance Urine pH Ur Specific [place] Urine Protein Urine Glucose (UA) Urine Ketones Urine Blood Urine Nitrite Ur Leukocyte Esterase Urine WBC (Auto) Urine RBC (Auto) 12/30/18 12/30/18 12/30/18 18:50 19:35 23:45 WBC RBC Hgb Hct MCV MCH MCHC RDW Plt Count Seg Neutrophils % Lymphocytes % Monocytes % Eosinophils % Basophils % Absolute Neutrophils Absolute Lymphocytes Absolute Monocytes Absolute Eosinophils Absolute Basophils Retic Count (auto) Absolute Retic Sodium Potassium Chloride Carbon Dioxide Anion Gap BUN Creatinine Est GFR ( Amer) Est GFR (Non-Af Amer) Glucose Calcium Phosphorus Magnesium Iron TIBC % Saturation Ferritin Total Bilirubin AST ALT Alkaline Phosphatase Ammonia 27.1 Total Protein Albumin Amylase Lipase Vitamin B12 Folate TSH 0.84 Free T4 0.90 Serum HCG, Qual Urine Color YELLOW Urine Appearance CLEAR Urine pH 7.0 Ur Specific [place] 1.011 Urine Protein NEGATIVE Urine Glucose (UA) NEGATIVE Urine Ketones NEGATIVE Urine Blood NEGATIVE Urine Nitrite NEGATIVE Ur Leukocyte Esterase NEGATIVE Urine WBC (Auto) 1 Urine RBC (Auto) 0 12/31/18 12/31/18 06:22 06:22 WBC 7.2 RBC 1.73 L Hgb 7.0 L Hct 20.1 L MCV 116 H MCH 40.6 H MCHC 34.9 RDW 26.3 H Plt Count 256 Seg Neutrophils % Not Reportable Lymphocytes % Not Reportable Monocytes % Not Reportable Eosinophils % Not Reportable Basophils % Not Reportable Absolute Neutrophils Not Reportable Absolute Lymphocytes Not Reportable Absolute Monocytes Not Reportable Absolute Eosinophils Not Reportable Absolute Basophils Not Reportable Retic Count (auto) Absolute Retic Sodium 141.3 Potassium 3.9 Chloride 113 H Carbon Dioxide 21 L Anion Gap 7 BUN 8 Creatinine 0.60 Est GFR ( Amer) > 60 Est GFR (Non-Af Amer) > 60 Glucose 103 Calcium 8.7 Phosphorus Magnesium Iron TIBC % Saturation Ferritin Total Bilirubin 4.1 H AST 59 H ALT 47 Alkaline Phosphatase 117 Ammonia Total Protein 6.6 Albumin 3.5 Amylase Lipase Vitamin B12 Folate TSH Free T4 Serum HCG, Qual Urine Color Urine Appearance Urine pH Ur Specific [place] Urine Protein Urine Glucose (UA) Urine Ketones Urine Blood Urine Nitrite Ur Leukocyte Esterase Urine WBC (Auto) Urine RBC (Auto) 12/30/18 12/30/18 12/31/18 18:50 18:50 00:43 Creatine Kinase 22 L 20 L CK-MB (CK-2) < 0.22 Troponin I < 0.012 NT-Pro-B Natriuret Pep 59 12/31/18 12/31/18 12/31/18 00:43 06:22 06:22 Creatine Kinase 24 L CK-MB (CK-2) < 0.22 < 0.22 Troponin I < 0.012 < 0.012 NT-Pro-B Natriuret Pep 12/31/18 12/31/18 12:50 14:10 Creatine Kinase 26 L CK-MB (CK-2) < 0.22 Troponin I < 0.012 NT-Pro-B Natriuret Pep Impressions: Chest X-Ray 12/30/18 17:54 IMPRESSION: NO ACUTE RADIOGRAPHIC FINDING IN THE CHEST. Assessment & Plan - Diagnosis (1) Vaso-occlusive sickle cell crisis Is this a current diagnosis for this admission?: Yes (2) Secondary hemochromatosis Is this a current diagnosis for this admission?: Yes (3) Hemolytic anemia Qualifiers: Hemolytic anemia type: other hemoglobinopathy Qualified Code(s): D58.2 - Other hemoglobinopathies Is this a current diagnosis for this admission?: Yes
[2018-12-31] MEDS: PROMETHAZINE HCL 25 MG TABLET PO PRN (18:41)
--- NOTE | 2018-12-31 19:01 | EKG REPORT ---
SEVERITY:- NORMAL ECG - SINUS RHYTHM : Confirmed by: No Boss MD 31-Dec-2018 19:00:58
--- NOTE | 2018-12-31 19:01 | EKG REPORT ---
SEVERITY:- NORMAL ECG - SINUS RHYTHM : Confirmed by: No Boss MD 31-Dec-2018 19:01:02
[2019-01-01] MEDS: HYDROMORPHONE HCL INJ/PF 2 MG/ML AMPULE IV SCH ×4 (02:04→20:45)
[2019-01-01] MEDS: DIPHENHYDRAMINE HCL 50 MG/ML VIAL IV PRN ×4 (02:04→20:45)
[2019-01-01] MEDS: GABAPENTIN 300 MG CAPSULE PO SCH ×3 (05:03→22:38)
[2019-01-01] MEDS: OXYCODONE HCL IR 5 MG TABLET PO PRN ×2 (05:03→19:35)
[2019-01-01 05:28] LABS: HEMATOCRIT 21.2 % (36.0-47.0); MEAN CORPUSCULAR HEMOGLOBIN 40.1 pg (27.0-33.4); MEAN CORPUSCULAR HGB CONC 34.3 g/dL (32.0-36.0); MEAN CORPUSCULAR VOLUME 117 fl (80-97); PLATELET COUNT 300 10^3/uL (150-450); RED BLOOD COUNT 1.81 10^6/uL (3.72-5.28); RED CELL DISTRIBUTION WIDTH 26.9 % (11.5-14.0); WHITE BLOOD COUNT 6.9 10^3/uL (4.0-10.5)
[2019-01-01 05:29] LABS: HEMOGLOBIN 7.3 g/dL (12.0-15.5)
[2019-01-01 05:39] LABS: ABSOLUTE LYMPHOCYTES# (MANUAL) 3.4 10^3/uL (0.5-4.7); ABSOLUTE MONOCYTES # (MANUAL) 0.6 10^3/uL (0.1-1.4); BASOPHILS % (MANUAL) 1 % (0-2); EOSINOPHILS % (MANUAL) 2 % (0-6); LYMPHOCYTES % (MANUAL) 49 % (13-45); MONOCYTES % (MANUAL) 8 % (3-13); NUCLEATED RED BLOOD CELLS 2 /100 WBC (0); SEGMENTED NEUTROPHILS % (MAN) 40 % (42-78); TOTAL CELLS COUNTED 100
[2019-01-01 05:40] LABS: PLATELET COMMENT ADEQUATE
[2019-01-01 05:41] LABS: ANISOCYTOSIS 3+; HOWELL-JOLLY BODIES PRESENT; POIKILOCYTOSIS 2+; POLYCHROMASIA SLIGHT; SCHISTOCYTES SLIGHT; SICKLE RED CELLS 1+; TARGET CELLS SLIGHT
[2019-01-01 05:42] LABS: HYPOCHROMASIA 1+
[2019-01-01 05:49] LABS: ALANINE AMINOTRANSFERASE 47 U/L (9-52); ALKALINE PHOSPHATASE 122 U/L (38-126); ANION GAP 11 (5-19); ASPARTATE AMINO TRANSFERASE 60 U/L (14-36); BILIRUBIN,DIRECT 0.6 mg/dL (0.0-0.4); BILIRUBIN,TOTAL 3.9 mg/dL (0.2-1.3); BLOOD UREA NITROGEN 7 mg/dL (7-20); CALCIUM 8.7 mg/dL (8.4-10.2); CARBON DIOXIDE 20 mmol/L (22-30); CHLORIDE 110 mmol/L (98-107); GLUCOSE 126 mg/dL (75-110); POTASSIUM 3.7 mmol/L (3.6-5.0); TOTAL PROTEIN 7.2 g/dL (6.3-8.2)
[2019-01-01] MEDS: NORMAL SALINE 1000 ML 1,000 ML IV PRN ×2 (06:40→22:38)
[2019-01-01] MEDS: HYDROXYUREA 500 MG CAPSULE PO SCH ×3 (11:24→20:44)
[2019-01-01] MEDS: FOLIC ACID 1 MG TABLET PO SCH (11:24)
[2019-01-01] MEDS: OXYCODONE HCL SR 10 MG TABLET PO SCH ×2 (11:24→22:38)
[2019-01-01] MEDS: MULTIVITAMIN TABLET PO SCH (11:24)
[2019-01-01] MEDS: SULFAMETHOXAZOLE/TRIMETHOPRIM 800-160 MG TABLET PO SCH ×2 (11:24→19:36)
[2019-01-01] MEDS: TRIAMCINOLONE ACETONIDE 0.1% CREAM 15 GM TOP SCH ×2 (11:31→20:45)
[2019-01-01] MEDS: RIVAROXABAN 10 MG TABLET PO SCH (19:35)
--- NOTE | 2019-01-01 20:44 | PDOC PROGRESS REPORT ---
Subjective Progress Note for:: 01/01/19 Subjective:: Patient seen by the bedside Reason For Visit: SCD WITH BONE PAIN CRISIS,HEMOLYTIC CRISIS Physical Exam Vital Signs: Temp Pulse Resp BP Pulse Ox 99.2 F 82 20 104/65 100 01/01/19 17:41 01/01/19 17:41 01/01/19 17:41 01/01/19 17:41 01/01/19 17:41 Intake & Output 12/31/18 01/01/19 01/02/19 06:59 06:59 06:59 Intake Total 2595 3320 437 Balance 2595 3320 437 Weight 61.3 kg 65.3 kg General appearance: PRESENT: no acute distress Eye exam: PRESENT: PERRLA Respiratory exam: PRESENT: clear to auscultation carolyn Cardiovascular exam: PRESENT: +S1, +S2 GI/Abdominal exam: PRESENT: soft Neurological exam: PRESENT: alert Results Laboratory Results: 01/01/19 05:00 01/01/19 05:00 01/01/19 01/01/19 05:00 05:00 WBC 6.9 RBC 1.81 L Hgb 7.3 L Hct 21.2 L MCV 117 H MCH 40.1 H MCHC 34.3 RDW 26.9 H Plt Count 300 Seg Neutrophils % Not Reportable Lymphocytes % Not Reportable Monocytes % Not Reportable Eosinophils % Not Reportable Basophils % Not Reportable Absolute Neutrophils Not Reportable Absolute Lymphocytes Not Reportable Absolute Monocytes Not Reportable Absolute Eosinophils Not Reportable Absolute Basophils Not Reportable Sodium 140.5 Potassium 3.7 Chloride 110 H Carbon Dioxide 20 L Anion Gap 11 BUN 7 Creatinine 0.65 Est GFR ( Amer) > 60 Est GFR (Non-Af Amer) > 60 Glucose 126 H Calcium 8.7 Total Bilirubin 3.9 H AST 60 H ALT 47 Alkaline Phosphatase 122 Total Protein 7.2 Albumin 4.0 12/30/18 12/30/18 12/31/18 18:50 18:50 00:43 Creatine Kinase 22 L 20 L CK-MB (CK-2) < 0.22 Troponin I < 0.012 NT-Pro-B Natriuret Pep 59 12/31/18 12/31/18 12/31/18 00:43 06:22 06:22 Creatine Kinase 24 L CK-MB (CK-2) < 0.22 < 0.22 Troponin I < 0.012 < 0.012 NT-Pro-B Natriuret Pep 12/31/18 12/31/18 12:50 14:10 Creatine Kinase 26 L CK-MB (CK-2) < 0.22 Troponin I < 0.012 NT-Pro-B Natriuret Pep Impressions: Chest X-Ray 12/30/18 17:54 IMPRESSION: NO ACUTE RADIOGRAPHIC FINDING IN THE CHEST. Assessment & Plan - Diagnosis (1) Vaso-occlusive sickle cell crisis Is this a current diagnosis for this admission?: Yes Plan: continue pain medication ,IV fluid (2) Secondary hemochromatosis Is this a current diagnosis for this admission?: Yes (3) Hemolytic anemia Qualifiers: Hemolytic anemia type: other hemoglobinopathy Qualified Code(s): D58.2 - O ther hemoglobinopathies Is this a current diagnosis for this admission?: Yes
[2019-01-02] MEDS: HYDROMORPHONE HCL INJ/PF 2 MG/ML AMPULE IV SCH ×4 (02:41→20:14)
[2019-01-02] MEDS: DIPHENHYDRAMINE HCL 50 MG/ML VIAL IV PRN ×4 (02:43→21:15)
[2019-01-02] MEDS: GABAPENTIN 300 MG CAPSULE PO SCH ×3 (06:10→21:15)
[2019-01-02] MEDS: OXYCODONE HCL IR 5 MG TABLET PO PRN (06:11)
[2019-01-02 06:40] LABS: ABSOLUTE BASOPHILS # (AUTO) 0.1 10^3/uL (0.0-0.2); ABSOLUTE EOSINOPHILS # (AUTO) 0.3 10^3/uL (0.0-0.6); ABSOLUTE LYMPHOCYTES (AUTO) 3.1 10^3/uL (0.5-4.7); ABSOLUTE MONOCYTES (AUTO) 0.4 10^3/uL (0.1-1.4); ABSOLUTE NEUT (AUTO) 2.2 10^3/uL (1.7-8.2); BASOPHILS % (AUTO) 1.2 % (0-2); EOSINOPHILS % (AUTO) 4.7 % (0-6); HEMATOCRIT 19.2 % (36.0-47.0); LYMPHOCYTES % (AUTO) 50.4 % (13-45); MEAN CORPUSCULAR HEMOGLOBIN 40.3 pg (27.0-33.4); MEAN CORPUSCULAR HGB CONC 34.8 g/dL (32.0-36.0); MEAN CORPUSCULAR VOLUME 116 fl (80-97); MONOCYTES % (AUTO) 7.1 % (3-13); PLATELET COUNT 274 10^3/uL (150-450); RED BLOOD COUNT 1.65 10^6/uL (3.72-5.28); RED CELL DISTRIBUTION WIDTH 26.3 % (11.5-14.0); SEGMENTED NEUTROPHILS % (AUTO) 36.6 % (42-78); TOTAL CELLS COUNTED % (AUTO) 100 %; WHITE BLOOD COUNT 6.1 10^3/uL (4.0-10.5)
[2019-01-02 06:42] LABS: HEMOGLOBIN 6.7 g/dL (12.0-15.5)
[2019-01-02 07:08] LABS: ANISOCYTOSIS 3+; HYPOCHROMASIA 1+; PLATELET COMMENT ADEQUATE; POIKILOCYTOSIS 1+; SICKLE RED CELLS 1+
[2019-01-02 07:16] LABS: ALANINE AMINOTRANSFERASE 53 U/L (9-52); ALBUMIN 3.7 g/dL (3.5-5.0); ALKALINE PHOSPHATASE 147 U/L (38-126); ANION GAP 8 (5-19); ASPARTATE AMINO TRANSFERASE 58 U/L (14-36); BILIRUBIN,DIRECT 0.6 mg/dL (0.0-0.4); BILIRUBIN,TOTAL 3.4 mg/dL (0.2-1.3); BLOOD UREA NITROGEN 10 mg/dL (7-20); CALCIUM 8.5 mg/dL (8.4-10.2); CARBON DIOXIDE 22 mmol/L (22-30); CHLORIDE 109 mmol/L (98-107); GLUCOSE 89 mg/dL (75-110); POTASSIUM 4.3 mmol/L (3.6-5.0); TOTAL PROTEIN 6.6 g/dL (6.3-8.2)
[2019-01-02] MEDS: OXYCODONE HCL SR 10 MG TABLET PO SCH ×2 (11:21→21:15)
[2019-01-02] MEDS: SULFAMETHOXAZOLE/TRIMETHOPRIM 800-160 MG TABLET PO SCH ×2 (11:22→17:35)
[2019-01-02] MEDS: HYDROXYUREA 500 MG CAPSULE PO SCH ×3 (11:22→17:36)
[2019-01-02] MEDS: FOLIC ACID 1 MG TABLET PO SCH (11:22)
[2019-01-02] MEDS: TRIAMCINOLONE ACETONIDE 0.1% CREAM 15 GM TOP SCH ×2 (11:22→17:36)
[2019-01-02] MEDS: MULTIVITAMIN TABLET PO SCH (11:22)
[2019-01-02] MEDS: NORMAL SALINE 1000 ML 1,000 ML IV PRN (14:53)
[2019-01-02] MEDS: RIVAROXABAN 10 MG TABLET PO SCH (17:36)
--- NOTE | 2019-01-02 22:34 | PDOC PROGRESS REPORT ---
Subjective Progress Note for:: 01/02/19 Subjective:: Patient seen by the bedside, the hemoglobin was 6.7 is most likely dilutional Reason For Visit: SCD WITH BONE PAIN CRISIS,HEMOLYTIC CRISIS Physical Exam Vital Signs: Temp Pulse Resp BP Pulse Ox 99.2 F 92 15 96/53 L 100 01/02/19 16:43 01/02/19 16:43 01/02/19 16:43 01/02/19 16:43 01/02/19 16:43 Intake & Output 01/01/19 01/02/19 01/03/19 06:59 06:59 06:59 Intake Total 3320 2607 1666 Balance 3320 2607 1666 Weight 65.3 kg 66.4 kg General appearance: PRESENT: no acute distress Eye exam: PRESENT: PERRLA Respiratory exam: PRESENT: clear to auscultation carolyn Cardiovascular exam: PRESENT: +S1, +S2 GI/Abdominal exam: PRESENT: soft Neurological exam: PRESENT: alert Results Laboratory Results: 01/02/19 06:00 01/02/19 06:00 01/02/19 01/02/19 06:00 06:00 WBC 6.1 RBC 1.65 L Hgb 6.7 L Hct 19.2 L MCV 116 H MCH 40.3 H MCHC 34.8 RDW 26.3 H Plt Count 274 Seg Neutrophils % 36.6 L Lymphocytes % 50.4 H Monocytes % 7.1 Eosinophils % 4.7 Basophils % 1.2 Absolute Neutrophils 2.2 Absolute Lymphocytes 3.1 Absolute Monocytes 0.4 Absolute Eosinophils 0.3 Absolute Basophils 0.1 Sodium 138.7 Potassium 4.3 Chloride 109 H Carbon Dioxide 22 Anion Gap 8 BUN 10 Creatinine 0.79 Est GFR ( Amer) > 60 Est GFR (Non-Af Amer) > 60 Glucose 89 Calcium 8.5 Total Bilirubin 3.4 H AST 58 H ALT 53 H Alkaline Phosphatase 147 H Total Protein 6.6 Albumin 3.7 12/30/18 19:35 Clean Catch Midstream Urine Culture - Final Staph Coagulase Negative 12/30/18 12/30/18 12/31/18 18:50 18:50 00:43 Creatine Kinase 22 L 20 L CK-MB (CK-2) < 0.22 Troponin I < 0.012 NT-Pro-B Natriuret Pep 59 12/31/18 12/31/18 12/31/18 00:43 06:22 06:22 Creatine Kinase 24 L CK-MB (CK-2) < 0.22 < 0.22 Troponin I < 0.012 < 0.012 NT-Pro-B Natriuret Pep 12/31/18 12/31/18 12:50 14:10 Creatine Kinase 26 L CK-MB (CK-2) < 0.22 Troponin I < 0.012 NT-Pro-B Natriuret Pep Impressions: Chest X-Ray 12/30/18 17:54 IMPRESSION: NO ACUTE RADIOGRAPHIC FINDING IN THE CHEST. Assessment & Plan - Diagnosis (1) Vaso-occlusive sickle cell crisis Is this a current diagnosis for this admission?: Yes (2) Secondary hemochromatosis Is this a current diagnosis for this admission?: Yes (3) Hemolytic anemia Qualifiers: Hemolytic anemia type: other hemoglobinopathy Qualified Code(s): D58.2 - Other hemoglobinopathies Is this a current diagnosis for this admission?: Yes
[2019-01-03] MEDS: HYDROMORPHONE HCL INJ/PF 2 MG/ML AMPULE IV SCH ×4 (02:33→20:15)
[2019-01-03] MEDS: NORMAL SALINE 1000 ML 1,000 ML IV PRN ×4 (02:33→20:21)
[2019-01-03] MEDS: GABAPENTIN 300 MG CAPSULE PO SCH ×3 (05:11→23:19)
[2019-01-03] MEDS: OXYCODONE HCL IR 5 MG TABLET PO PRN ×3 (05:11→18:41)
[2019-01-03 07:59] LABS: HEMATOCRIT 17.5 % (36.0-47.0); MEAN CORPUSCULAR HEMOGLOBIN 39.6 pg (27.0-33.4); MEAN CORPUSCULAR HGB CONC 34.1 g/dL (32.0-36.0); MEAN CORPUSCULAR VOLUME 116 fl (80-97); PLATELET COUNT 236 10^3/uL (150-450); RED CELL DISTRIBUTION WIDTH 26.7 % (11.5-14.0); WHITE BLOOD COUNT 5.6 10^3/uL (4.0-10.5)
[2019-01-03 08:16] LABS: ALANINE AMINOTRANSFERASE 48 U/L (9-52); ALBUMIN 3.5 g/dL (3.5-5.0); ALKALINE PHOSPHATASE 149 U/L (38-126); ANION GAP 7 (5-19); ASPARTATE AMINO TRANSFERASE 56 U/L (14-36); BILIRUBIN,DIRECT 0.7 mg/dL (0.0-0.4); BILIRUBIN,TOTAL 2.9 mg/dL (0.2-1.3); BLOOD UREA NITROGEN 11 mg/dL (7-20); CALCIUM 8.4 mg/dL (8.4-10.2); CARBON DIOXIDE 23 mmol/L (22-30); CHLORIDE 109 mmol/L (98-107); GLUCOSE 104 mg/dL (75-110); POTASSIUM 4.5 mmol/L (3.6-5.0); TOTAL PROTEIN 6.4 g/dL (6.3-8.2)
[2019-01-03] MEDS: DIPHENHYDRAMINE HCL 50 MG/ML VIAL IV PRN ×3 (08:25→20:19)
[2019-01-03 08:34] LABS: HEMOGLOBIN 5.9 g/dL (12.0-15.5)
[2019-01-03 08:51] LABS: ABSOLUTE LYMPHOCYTES# (MANUAL) 2.4 10^3/uL (0.5-4.7); ABSOLUTE MONOCYTES # (MANUAL) 0.1 10^3/uL (0.1-1.4); BAND NEUTROPHILS % (MANUAL) 1 % (3-5); BASOPHILS % (MANUAL) 0 % (0-2); EOSINOPHILS % (MANUAL) 9 % (0-6); LYMPHOCYTES % (MANUAL) 42 % (13-45); MONOCYTES % (MANUAL) 1 % (3-13); NUCLEATED RED BLOOD CELLS 4 /100 WBC (0); SEGMENTED NEUTROPHILS % (MAN) 47 % (42-78); TOTAL CELLS COUNTED 100
[2019-01-03 08:57] LABS: ANISOCYTOSIS 3+; HOWELL-JOLLY BODIES PRESENT; OVALOCYTES SLIGHT; PAPPENHEIMER BODIES PRESENT; PLATELET COMMENT ADEQUATE; POIKILOCYTOSIS 1+; POLYCHROMASIA SLIGHT; SCHISTOCYTES SLIGHT; TARGET CELLS SLIGHT
[2019-01-03] MEDS: TRIAMCINOLONE ACETONIDE 0.1% CREAM 15 GM TOP SCH ×2 (10:06→17:53)
[2019-01-03] MEDS: FOLIC ACID 1 MG TABLET PO SCH (10:07)
[2019-01-03] MEDS: SULFAMETHOXAZOLE/TRIMETHOPRIM 800-160 MG TABLET PO SCH ×2 (10:07→17:52)
[2019-01-03] MEDS: MULTIVITAMIN TABLET PO SCH (10:07)
[2019-01-03] MEDS: HYDROXYUREA 500 MG CAPSULE PO SCH ×3 (10:07→17:52)
[2019-01-03] MEDS: OXYCODONE HCL SR 10 MG TABLET PO SCH ×2 (10:07→23:18)
[2019-01-03] MEDS: ONDANSETRON HCL INJ/PF 4 MG/2 ML SDV IV PRN (14:23)
[2019-01-03] MEDS: RIVAROXABAN 10 MG TABLET PO SCH (17:52)
--- NOTE | 2019-01-03 19:20 | PDOC PROGRESS REPORT ---
Subjective Progress Note for:: 01/03/19 Subjective:: Patient is alert Reason For Visit: SCD WITH BONE PAIN CRISIS,HEMOLYTIC CRISIS Physical Exam Vital Signs: Temp Pulse Resp BP Pulse Ox 98.8 F 87 21 H 98/54 L 100 01/03/19 13:01 01/03/19 13:01 01/03/19 07:24 01/03/19 13:01 01/03/19 13:01 Intake & Output 01/02/19 01/03/19 01/04/19 06:59 06:59 06:59 Intake Total 2607 4493 910 Balance 2607 4493 910 Weight 66.4 kg 67.1 kg General appearance: PRESENT: no acute distress Eye exam: PRESENT: PERRLA Respiratory exam: PRESENT: clear to auscultation carolyn Cardiovascular exam: PRESENT: +S1, +S2 GI/Abdominal exam: PRESENT: soft Neurological exam: PRESENT: alert Results Laboratory Results: 01/03/19 07:00 01/03/19 07:00 01/03/19 01/03/19 07:00 07:00 WBC 5.6 RBC 1.50 L Hgb 5.9 L Hct 17.5 L MCV 116 H MCH 39.6 H MCHC 34.1 RDW 26.7 H Plt Count 236 Seg Neutrophils % Not Reportable Lymphocytes % Not Reportable Monocytes % Not Reportable Eosinophils % Not Reportable Basophils % Not Reportable Absolute Neutrophils Not Reportable Absolute Lymphocytes Not Reportable Absolute Monocytes Not Reportable Absolute Eosinophils Not Reportable Absolute Basophils Not Reportable Sodium 139.4 Potassium 4.5 Chloride 109 H Carbon Dioxide 23 Anion Gap 7 BUN 11 Creatinine 0.87 Est GFR ( Amer) > 60 Est GFR (Non-Af Amer) > 60 Glucose 104 Calcium 8.4 Total Bilirubin 2.9 H AST 56 H ALT 48 Alkaline Phosphatase 149 H Total Protein 6.4 Albumin 3.5 12/30/18 12/30/18 12/31/18 18:50 18:50 00:43 Creatine Kinase 22 L 20 L CK-MB (CK-2) < 0.22 Troponin I < 0.012 NT-Pro-B Natriuret Pep 59 12/31/18 12/31/18 12/31/18 00:43 06:22 06:22 Creatine Kinase 24 L CK-MB (CK-2) < 0.22 < 0.22 Troponin I < 0.012 < 0.012 NT-Pro-B Natriuret Pep 12/31/18 12/31/18 12:50 14:10 Creatine Kinase 26 L CK-MB (CK-2) < 0.22 Troponin I < 0.012 NT-Pro-B Natriuret Pep Impressions: Chest X-Ray 12/30/18 17:54 IMPRESSION: NO ACUTE RADIOGRAPHIC FINDING IN THE CHEST. Assessment & Plan - Diagnosis (1) Vaso-occlusive sickle cell crisis Is this a current diagnosis for this admission?: Yes (2) Secondary hemochromatosis Is this a current diagnosis for this admission?: Yes (3) Hemolytic anemia Qualifiers: Hemolytic anemia type: other hemoglobinopathy Qualified Code(s): D58.2 - Other hemoglobinopathies Is this a current diagnosis for this admission?: Yes Plan: The hemoglobin is 5, continue to watch closely
[2019-01-04] MEDS: DIPHENHYDRAMINE HCL 50 MG/ML VIAL IV PRN ×4 (02:04→20:47)
[2019-01-04] MEDS: HYDROMORPHONE HCL INJ/PF 2 MG/ML AMPULE IV SCH ×4 (02:04→20:45)
[2019-01-04] MEDS: OXYCODONE HCL IR 5 MG TABLET PO PRN ×2 (05:44→17:10)
[2019-01-04] MEDS: GABAPENTIN 300 MG CAPSULE PO SCH ×3 (05:45→21:58)
[2019-01-04] MEDS: NORMAL SALINE 1000 ML 1,000 ML IV PRN ×2 (09:36→18:42)
[2019-01-04] MEDS: HYDROXYUREA 500 MG CAPSULE PO SCH ×3 (09:37→17:06)
[2019-01-04] MEDS: OXYCODONE HCL SR 10 MG TABLET PO SCH ×2 (09:37→21:58)
[2019-01-04] MEDS: MULTIVITAMIN TABLET PO SCH (09:37)
[2019-01-04] MEDS: SULFAMETHOXAZOLE/TRIMETHOPRIM 800-160 MG TABLET PO SCH ×2 (09:37→17:06)
[2019-01-04] MEDS: FOLIC ACID 1 MG TABLET PO SCH (09:37)
[2019-01-04] MEDS: TRIAMCINOLONE ACETONIDE 0.1% CREAM 15 GM TOP SCH ×2 (09:39→17:06)
[2019-01-04] MEDS: RIVAROXABAN 10 MG TABLET PO SCH (17:06)
[2019-01-04 21:18] LABS: HEMATOCRIT 17.2 % (36.0-47.0); MEAN CORPUSCULAR HEMOGLOBIN 39.5 pg (27.0-33.4); MEAN CORPUSCULAR HGB CONC 34.3 g/dL (32.0-36.0); MEAN CORPUSCULAR VOLUME 115 fl (80-97); PLATELET COUNT 256 10^3/uL (150-450); RED BLOOD COUNT 1.49 10^6/uL (3.72-5.28); RED CELL DISTRIBUTION WIDTH 27.4 % (11.5-14.0); WHITE BLOOD COUNT 4.8 10^3/uL (4.0-10.5)
[2019-01-04 21:19] LABS: HEMOGLOBIN 5.9 g/dL (12.0-15.5)
[2019-01-04 21:32] LABS: BLOOD UREA NITROGEN 11 mg/dL (7-20); CALCIUM 8.6 mg/dL (8.4-10.2); GLUCOSE 86 mg/dL (75-110)
[2019-01-04 21:33] LABS: ABSOLUTE LYMPHOCYTES# (MANUAL) 2.1 10^3/uL (0.5-4.7); ABSOLUTE MONOCYTES # (MANUAL) 0.3 10^3/uL (0.1-1.4); BASOPHILS % (MANUAL) 0 % (0-2); EOSINOPHILS % (MANUAL) 9 % (0-6); LYMPHOCYTES % (MANUAL) 44 % (13-45); MONOCYTES % (MANUAL) 7 % (3-13); NUCLEATED RED BLOOD CELLS 15 /100 WBC (0); SEGMENTED NEUTROPHILS % (MAN) 40 % (42-78); TOTAL CELLS COUNTED 100
[2019-01-04 21:39] LABS: ANISOCYTOSIS 2+; HOWELL-JOLLY BODIES PRESENT; PLATELET COMMENT ADEQUATE; POIKILOCYTOSIS 1+; POLYCHROMASIA 1+; SCHISTOCYTES 1+; SICKLE RED CELLS 1+; TARGET CELLS 1+
[2019-01-04 21:40] LABS: ANION GAP 7 (5-19); CARBON DIOXIDE 24 mmol/L (22-30); CHLORIDE 106 mmol/L (98-107); POTASSIUM 4.7 mmol/L (3.6-5.0)
--- NOTE | 2019-01-04 21:43 | PDOC PROGRESS REPORT ---
Subjective Progress Note for:: 01/04/19 Subjective:: Patient seen by the bedside Reason For Visit: SCD WITH BONE PAIN CRISIS,HEMOLYTIC CRISIS Physical Exam Vital Signs: Temp Pulse Resp BP Pulse Ox 99.0 F 90 14 100/53 L 97 01/04/19 19:46 01/04/19 19:46 01/04/19 19:46 01/04/19 19:46 01/04/19 19:46 Intake & Output 01/03/19 01/04/19 01/05/19 06:59 06:59 06:59 Intake Total 4493 3978 1832 Balance 4493 3978 1832 Weight 67.1 kg 67.5 kg General appearance: PRESENT: no acute distress Eye exam: PRESENT: PERRLA Respiratory exam: PRESENT: clear to auscultation carolyn Cardiovascular exam: PRESENT: +S1, +S2 GI/Abdominal exam: PRESENT: soft Neurological exam: PRESENT: alert Results Laboratory Results: 01/04/19 21:04 Seg Neutrophils % Not Reportable Lymphocytes % Not Reportable Monocytes % Not Reportable Eosinophils % Not Reportable Basophils % Not Reportable Absolute Neutrophils Not Reportable Absolute Lymphocytes Not Reportable Absolute Monocytes Not Reportable Absolute Eosinophils Not Reportable Absolute Basophils Not Reportable 12/30/18 12/30/18 12/31/18 18:50 18:50 00:43 Creatine Kinase 22 L 20 L CK-MB (CK-2) < 0.22 Troponin I < 0.012 NT-Pro-B Natriuret Pep 59 12/31/18 12/31/18 12/31/18 00:43 06:22 06:22 Creatine Kinase 24 L CK-MB (CK-2) < 0.22 < 0.22 Troponin I < 0.012 < 0.012 NT-Pro-B Natriuret Pep 12/31/18 12/31/18 12:50 14:10 Creatine Kinase 26 L CK-MB (CK-2) < 0.22 Troponin I < 0.012 NT-Pro-B Natriuret Pep Impressions: Chest X-Ray 12/30/18 17:54 IMPRESSION: NO ACUTE RADIOGRAPHIC FINDING IN THE CHEST. Assessment & Plan - Diagnosis (1) Vaso-occlusive sickle cell crisis Is this a current diagnosis for this admission?: Yes (2) Secondary hemochromatosis Is this a current diagnosis for this admission?: Yes (3) Hemolytic anemia Qualifiers: Hemolytic anemia type: other hemoglobinopathy Qualified Code(s): D58.2 - Other hemoglobinopathies Is this a current diagnosis for this admission?: Yes
[2019-01-05] MEDS: OXYCODONE HCL IR 5 MG TABLET PO PRN ×4 (00:46→19:39)
[2019-01-05] MEDS: HYDROMORPHONE HCL INJ/PF 2 MG/ML AMPULE IV SCH ×4 (02:10→20:14)
[2019-01-05] MEDS: DIPHENHYDRAMINE HCL 50 MG/ML VIAL IV PRN ×4 (02:10→20:13)
[2019-01-05] MEDS: NORMAL SALINE 1000 ML 1,000 ML IV PRN ×2 (05:33→14:41)
[2019-01-05] MEDS: GABAPENTIN 300 MG CAPSULE PO SCH ×3 (05:34→21:03)
[2019-01-05 07:38] LABS: HEMATOCRIT 16.7 % (36.0-47.0); MEAN CORPUSCULAR HEMOGLOBIN 40.6 pg (27.0-33.4); MEAN CORPUSCULAR HGB CONC 35.1 g/dL (32.0-36.0); MEAN CORPUSCULAR VOLUME 116 fl (80-97); PLATELET COUNT 254 10^3/uL (150-450); RED BLOOD COUNT 1.44 10^6/uL (3.72-5.28); RED CELL DISTRIBUTION WIDTH 27.6 % (11.5-14.0); WHITE BLOOD COUNT 4.5 10^3/uL (4.0-10.5)
[2019-01-05 07:48] LABS: ANION GAP 6 (5-19); BLOOD UREA NITROGEN 12 mg/dL (7-20); CALCIUM 8.6 mg/dL (8.4-10.2); CARBON DIOXIDE 24 mmol/L (22-30); CHLORIDE 106 mmol/L (98-107); GLUCOSE 88 mg/dL (75-110); POTASSIUM 4.9 mmol/L (3.6-5.0)
[2019-01-05] MEDS: ONDANSETRON HCL INJ/PF 4 MG/2 ML SDV IV PRN (08:21)
[2019-01-05 08:35] LABS: HEMOGLOBIN 5.9 g/dL (12.0-15.5)
[2019-01-05 08:41] LABS: ABSOLUTE MONOCYTES # (MANUAL) 0.1 10^3/uL (0.1-1.4); BASOPHILS % (MANUAL) 0 % (0-2); EOSINOPHILS % (MANUAL) 7 % (0-6); LYMPHOCYTES % (MANUAL) 44 % (13-45); MONOCYTES % (MANUAL) 3 % (3-13); NUCLEATED RED BLOOD CELLS 15 /100 WBC (0); SEGMENTED NEUTROPHILS % (MAN) 46 % (42-78); TOTAL CELLS COUNTED 100
[2019-01-05 08:43] LABS: ANISOCYTOSIS 3+; OVALOCYTES 1+; PLATELET COMMENT ADEQUATE; PLATELET LARGE PRESENT; POIKILOCYTOSIS 1+; TARGET CELLS 1+
[2019-01-05] MEDS: EPOETIN ALFA EPBX SUBCUT SCH (09:46)
[2019-01-05] MEDS: DISPOSABLE SUBCUT SCH (09:46)
[2019-01-05] MEDS: [UNRECOGNIZED DRUG - OTHER] SUBCUT SCH (09:46)
[2019-01-05] MEDS: TRIAMCINOLONE ACETONIDE 0.1% CREAM 15 GM TOP SCH ×2 (09:52→17:03)
[2019-01-05] MEDS: MULTIVITAMIN TABLET PO SCH (09:53)
[2019-01-05] MEDS: HYDROXYUREA 500 MG CAPSULE PO SCH ×3 (09:53→17:02)
[2019-01-05] MEDS: SULFAMETHOXAZOLE/TRIMETHOPRIM 800-160 MG TABLET PO SCH ×2 (09:53→17:03)
[2019-01-05] MEDS: FOLIC ACID 1 MG TABLET PO SCH (09:53)
[2019-01-05] MEDS: OXYCODONE HCL SR 10 MG TABLET PO SCH ×2 (09:53→21:03)
[2019-01-05] MEDS ORDERED: EPOETIN ALFA INJ 40000 UNIT/1 ML (RENAL) SUBCUT SCH (10:00)
[2019-01-05] MEDS: RIVAROXABAN 10 MG TABLET PO SCH (17:02)
--- NOTE | 2019-01-05 20:51 | PDOC PROGRESS REPORT ---
Subjective Progress Note for:: 01/05/19 Subjective:: . Patient with persistent anemia ,hemoglobin 5.9 Reason For Visit: SCD WITH BONE PAIN CRISIS,HEMOLYTIC CRISIS Physical Exam Vital Signs: Temp Pulse Resp BP Pulse Ox 98.1 F 90 17 99/47 L 96 01/05/19 16:00 01/05/19 16:00 01/05/19 16:00 01/05/19 16:00 01/05/19 16:00 Intake & Output 01/04/19 01/05/19 01/06/19 06:59 06:59 06:59 Intake Total 3978 3582 1273 Output Total 700 Balance 3978 3582 573 Weight 67.5 kg 68.2 kg General appearance: PRESENT: no acute distress Eye exam: PRESENT: PERRLA Respiratory exam: PRESENT: clear to auscultation carolyn Cardiovascular exam: PRESENT: +S1, +S2 Neurological exam: PRESENT: alert Results Laboratory Results: 01/05/19 05:30 01/05/19 05:30 01/04/19 01/04/19 01/05/19 21:04 21:04 05:30 WBC 4.8 4.5 RBC 1.49 L 1.44 L Hgb 5.9 L 5.9 L Hct 17.2 L 16.7 L MCV 115 H 116 H MCH 39.5 H 40.6 H MCHC 34.3 35.1 RDW 27.4 H 27.6 H Plt Count 256 254 Seg Neutrophils % Not Reportable Not Reportable Lymphocytes % Not Reportable Not Reportable Monocytes % Not Reportable Not Reportable Eosinophils % Not Reportable Not Reportable Basophils % Not Reportable Not Reportable Absolute Neutrophils Not Reportable Not Reportable Absolute Lymphocytes Not Reportable Not Reportable Absolute Monocytes Not Reportable Not Reportable Absolute Eosinophils Not Reportable Not Reportable Absolute Basophils Not Reportable Not Reportable Sodium 136.6 L Potassium 4.7 Chloride 106 Carbon Dioxide 24 Anion Gap 7 BUN 11 Creatinine 0.90 Est GFR ( Amer) > 60 Est GFR (Non-Af Amer) > 60 Glucose 86 Calcium 8.6 01/05/19 05:30 WBC RBC Hgb Hct MCV MCH MCHC RDW Plt Count Seg Neutrophils % Lymphocytes % Monocytes % Eosinophils % Basophils % Absolute Neutrophils Absolute Lymphocytes Absolute Monocytes Absolute Eosinophils Absolute Basophils Sodium 136.2 L Potassium 4.9 Chloride 106 Carbon Dioxide 24 Anion Gap 6 BUN 12 Creatinine 0.82 Est GFR ( Amer) > 60 Est GFR (Non-Af Amer) > 60 Glucose 88 Calcium 8.6 01/04/19 22:35 Sputum Gram Stain - Final 01/04/19 22:35 Sputum Sputum Culture - Final 12/31/18 00:43 Blood Blood Culture - Final NO GROWTH IN 5 DAYS 12/30/18 23:45 Blood Blood Culture - Final NO GROWTH IN 5 DAYS 12/30/18 12/30/18 12/31/18 18:50 18:50 00:43 Creatine Kinase 22 L 20 L CK-MB (CK-2) < 0.22 Troponin I < 0.012 NT-Pro-B Natriuret Pep 59 12/31/18 12/31/18 12/31/18 00:43 06:22 06:22 Creatine Kinase 24 L CK-MB (CK-2) < 0.22 < 0.22 Troponin I < 0.012 < 0.012 NT-Pro-B Natriuret Pep 12/31/18 12/31/18 12:50 14:10 Creatine Kinase 26 L CK-MB (CK-2) < 0.22 Troponin I < 0.012 NT-Pro-B Natriuret Pep Impressions: Chest X-Ray 12/30/18 17:54 IMPRESSION: NO ACUTE RADIOGRAPHIC FINDING IN THE CHEST. Assessment & Plan - Diagnosis (1) Vaso-occlusive sickle cell crisis Is this a current diagnosis for this admission?: Yes (2) Secondary hemochromatosis Is this a current diagnosis for this admission?: Yes (3) Hemolytic anemia Qualifiers: Hemolytic anemia type: other hemoglobinopathy Qualified Code(s): D58.2 - Other hemoglobinopathies Is this a current diagnosis for this admission?: Yes
[2019-01-06] MEDS: NORMAL SALINE 1000 ML 1,000 ML IV PRN ×3 (01:29→18:07)
[2019-01-06] MEDS: OXYCODONE HCL IR 5 MG TABLET PO PRN (01:29)
[2019-01-06] MEDS: HYDROMORPHONE HCL INJ/PF 2 MG/ML AMPULE IV SCH ×3 (02:07→14:25)
[2019-01-06] MEDS: DIPHENHYDRAMINE HCL 50 MG/ML VIAL IV PRN ×4 (02:07→22:22)
[2019-01-06] MEDS: GABAPENTIN 300 MG CAPSULE PO SCH ×3 (06:05→21:38)
[2019-01-06] MEDS: HYDROXYUREA 500 MG CAPSULE PO SCH ×3 (11:00→17:42)
--- NOTE | 2019-01-06 11:02 | PDOC PROGRESS REPORT ---
Subjective Progress Note for:: 01/06/19 Subjective:: Patient was admitted for the sickle cell crisis chronic anemia Patient is currently seeing [facility] for rehab medicine for sickle cell crisis patient hemoglobin was 5.9 Patient received a blood transfusions 3 months back when hemoglobin was around 6 Patient's ferritin is high Patient is complaining of pain in the left elbow and the leg Reason For Visit: SCD WITH BONE PAIN CRISIS,HEMOLYTIC CRISIS Physical Exam Vital Signs: Temp Pulse Resp BP Pulse Ox 98.7 F 91 16 97/56 L 98 01/06/19 00:00 01/06/19 00:00 01/06/19 00:00 01/06/19 00:00 01/06/19 00:00 Intake & Output 01/05/19 01/06/19 01/07/19 06:59 06:59 06:59 Intake Total 3582 3215 Output Total 700 Balance 3582 2515 Weight 68.2 kg 69.5 kg General appearance: PRESENT: no acute distress, well-developed, well-nourished Head exam: PRESENT: atraumatic, normocephalic Eye exam: PRESENT: conjunctiva pink, EOMI, PERRLA. ABSENT: scleral icterus Ear exam: PRESENT: normal external ear exam Mouth exam: PRESENT: moist, tongue midline Neck exam: PRESENT: full ROM. ABSENT: carotid bruit, JVD, lymphadenopathy, thyromegaly Respiratory exam: PRESENT: clear to auscultation carolyn Cardiovascular exam: PRESENT: RRR. ABSENT: diastolic murmur, rubs, systolic murmur Vascular exam: PRESENT: normal capillary refill GI/Abdominal exam: PRESENT: normal bowel sounds, soft. ABSENT: distended, guarding, mass, organolmegaly, rebound, tenderness Rectal exam: PRESENT: deferred Neurological exam: PRESENT: alert, awake, oriented to person, oriented to place, oriented to time, oriented to situation, CN II-XII grossly intact. ABSENT: motor sensory deficit Psychiatric exam: PRESENT: appropriate affect, normal mood. ABSENT: homicidal ideation, suicidal ideation Skin exam: PRESENT: dry, intact, warm. ABSENT: cyanosis, rash Results Laboratory Results: 01/05/19 05:30 01/05/19 05:30 01/04/19 22:35 Sputum Gram Stain - Final 01/04/19 22:35 Sputum Sputum Culture - Final 07/13/19 07/13/19 07/14/19 18:50 18:50 00:43 Creatine Kinase 22 L 20 L CK-MB (CK-2) < 0.22 Troponin I < 0.012 NT-Pro-B Natriuret Pep 59 12/31/18 12/31/18 12/31/18 00:43 06:22 06:22 Creatine Kinase 24 L CK-MB (CK-2) < 0.22 < 0.22 Troponin I < 0.012 < 0.012 NT-Pro-B Natriuret Pep 12/31/18 12/31/18 12:50 14:10 Creatine Kinase 26 L CK-MB (CK-2) < 0.22 Troponin I < 0.012 NT-Pro-B Natriuret Pep Impressions: Chest X-Ray 12/30/18 17:54 IMPRESSION: NO ACUTE RADIOGRAPHIC FINDING IN THE CHEST. Assessment & Plan - Diagnosis (1) Sickle cell pain crisis Is this a current diagnosis for this admission?: Yes Plan: Consult the ethernet network architect for further evaluations (2) Sickle-cell anemia with crisis Is this a current diagnosis for this admission?: Yes Plan: Check the hemoglobin consult the ethernet network architect if is still below 6 consider 1 unit of the blood (3) Chronic pain syndrome Is this a current diagnosis for this admission?: Yes Plan: on chronic pain medications - Time Time Spent with patient: 15-24 minutes Medications reviewed and adjusted accordingly: Yes Anticipated discharge: Other Within: Other - Plan Summary Plan Summary: We will check a CBC and Chem-7 Consult ethernet network architect
[2019-01-06] MEDS: SULFAMETHOXAZOLE/TRIMETHOPRIM 800-160 MG TABLET PO SCH ×2 (11:05→17:42)
[2019-01-06] MEDS: MULTIVITAMIN TABLET PO SCH (11:05)
[2019-01-06] MEDS: TRIAMCINOLONE ACETONIDE 0.1% CREAM 15 GM TOP SCH ×2 (11:06→17:42)
[2019-01-06] MEDS: OXYCODONE HCL SR 10 MG TABLET PO SCH (11:06)
[2019-01-06] MEDS: FOLIC ACID 1 MG TABLET PO SCH (11:06)
[2019-01-06 11:19] LABS: MEAN CORPUSCULAR HEMOGLOBIN 40.7 pg (27.0-33.4); MEAN CORPUSCULAR HGB CONC 35.2 g/dL (32.0-36.0); MEAN CORPUSCULAR VOLUME 116 fl (80-97); PLATELET COUNT 235 10^3/uL (150-450); RED BLOOD COUNT 1.39 10^6/uL (3.72-5.28); RED CELL DISTRIBUTION WIDTH 27.8 % (11.5-14.0); WHITE BLOOD COUNT 4.9 10^3/uL (4.0-10.5)
[2019-01-06 11:25] LABS: ANION GAP 6 (5-19); BLOOD UREA NITROGEN 10 mg/dL (7-20); CALCIUM 8.5 mg/dL (8.4-10.2); CARBON DIOXIDE 22 mmol/L (22-30); CHLORIDE 107 mmol/L (98-107); GLUCOSE 121 mg/dL (75-110); POTASSIUM 4.2 mmol/L (3.6-5.0)
[2019-01-06 12:03] LABS: ABSOLUTE MONOCYTES # (MANUAL) 0.2 10^3/uL (0.1-1.4); BASOPHILS % (MANUAL) 4 % (0-2); EOSINOPHILS % (MANUAL) 7 % (0-6); LYMPHOCYTES % (MANUAL) 40 % (13-45); MONOCYTES % (MANUAL) 4 % (3-13); NUCLEATED RED BLOOD CELLS 27 /100 WBC (0); SEGMENTED NEUTROPHILS % (MAN) 45 % (42-78); TOTAL CELLS COUNTED 100
[2019-01-06 12:06] LABS: ANISOCYTOSIS 3+; OVALOCYTES 1+; POIKILOCYTOSIS 1+; POLYCHROMASIA SLIGHT
[2019-01-06 12:07] LABS: HOWELL-JOLLY BODIES PRESENT; PLATELET COMMENT ADEQUATE; TARGET CELLS SLIGHT
[2019-01-06 12:10] LABS: HEMOGLOBIN 5.6 g/dL (12.0-15.5)
--- NOTE | 2019-01-06 14:55 | PDOC CONSULTATION ---
Consultation Consult Date: 01/06/19 Provider Consulted: SAVANNA AWAN Consult reason:: Patient with acute Sickle Cell pain crisis History of Present Illness Admission Date/PCP: 12/30/18 21:46 HOMA BARRAZA MD History of Present Illness: WILLIE ALAN is a 49 year old female with long standing sickle cell anemia and frequent hospitalizations for the same. She states that over the past 5 days, during this admission, her pain has been continuous. It is typical for her pain crises. No new chest pain or dyspnea. No nausea or constipation. Her arms and hands are swollen. She is asking for her PRN meds to be increased from q 6 hours to q 4 hours. She has not yet been given any oxygen. 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 Denies: HIV Past Surgical History Past Surgical History: Reports: Appendectomy, Section, Cholecystectomy, Orthopedic Surgery - R knee, Tonsillectomy Denies: Amputation, Coronary Artery Bypass Graft, Gastric Bypass Surgery, Herniorrhaphy, Mastectomy, Pacemaker, Tubal Ligation Social History Smoking Status: Never Smoker Frequency of Alcohol Use: None Hx Recreational Drug Use: No Drugs: None Hx Prescription Drug Abuse: No Family History Family History: Reviewed & Not Pertinent Parental Family History Reviewed: Yes Children Family History Reviewed: Yes Sibling(s) Family History Reviewed.: Yes Medication/Allergy Home Medications: Epoetin Federico [Procrit Inj 40,000 Unit/1 ml Vial (Renal)] 60,000 unit SQ FR 11/20/18 Folic Acid [Folvite 1 mg Tablet] 1 mg PO DAILY 11/20/18 Gabapentin [Neurontin 300 mg Capsule] 300 mg PO Q8 11/20/18 Hydroxyurea [Hydrea 500 mg Capsule] 500 mg PO TID 11/20/18 Multivitamin [Multiple Vitamins] 1 tab PO DAILY 11/20/18 Oxycodone HCl [Oxycodone HCl 10 MG Tablet] 10 mg PO Q6HP PRN 11/20/18 Oxycodone HCl [Oxycontin] 30 mg PO Q12 11/20/18 Promethazine HCl [Phenergan 25 mg Tablet] 25 mg PO Q6HP PRN 11/20/18 Rivaroxaban [Xarelto] 20 mg PO QPM 11/20/18 Sulfamethoxazole/Trimethoprim [Bactrim Ds Tablet] 1 each PO BID #20 tablet 04/07 Triamcinolone Acetonide [Aristocort 0.1% Cream] 1 applic TP BID #1 tub 12/27/18 Allergies/Adverse Reactions: doxycycline [Doxycycline] Allergy (Severe, Verified 12/30/18 17:12) Review of Systems Constitutional: ABSENT: fever(s), headache(s) Eyes: ABSENT: visual disturbances Ears: ABSENT: hearing changes Nose, Mouth, and Throat: ABSENT: sore throat Cardiovascular: ABSENT: dyspnea on exertion Respiratory: ABSENT: dyspnea Gastrointestinal: ABSENT: constipation, diarrhea, nausea Musculoskeletal: PRESENT: as per HPI, joint swelling Integumentary: PRESENT: pruritus Neurological: ABSENT: confusion, dizziness Hematologic/Lymphatic: ABSENT: easy bruising Physical Exam Vital Signs: Temp Pulse Resp BP Pulse Ox 98.7 F 91 16 97/56 L 98 01/06/19 00:00 01/06/19 00:00 01/06/19 00:00 01/06/19 00:00 01/06/19 00:00 Intake & Output 01/05/19 01/06/19 01/07/19 06:59 06:59 06:59 Intake Total 3582 3215 1312 Output Total 700 Balance 3582 2515 1312 Weight 68.2 kg 69.5 kg General appearance: PRESENT: mild distress, well-developed, well-nourished Head exam: PRESENT: normocephalic Eye exam: PRESENT: EOMI, PERRLA Mouth exam: PRESENT: tongue midline Neck exam: ABSENT: lymphadenopathy, tenderness Respiratory exam: PRESENT: clear to auscultation carolyn, unlabored Cardiovascular exam: PRESENT: RRR. ABSENT: systolic murmur GI/Abdominal exam: PRESENT: normal bowel sounds, soft. ABSENT: tenderness Extremities exam: PRESENT: +1 edema - upper extremities. Musculoskeletal exam: PRESENT: normal inspection Neurological exam: PRESENT: alert, awake Psychiatric exam: PRESENT: appropriate affect Skin exam: PRESENT: normal color Results Laboratory Results: 01/06/19 10:15 01/06/19 10:15 01/06/19 01/06/19 10:15 10:15 WBC 4.9 RBC 1.39 L Hgb 5.6 L Hct 16.0 L MCV 116 H MCH 40.7 H MCHC 35.2 RDW 27.8 H Plt Count 235 Seg Neutrophils % Not Reportable Lymphocytes % Not Reportable Monocytes % Not Reportable Eosinophils % Not Reportable Basophils % Not Reportable Absolute Neutrophils Not Reportable Absolute Lymphocytes Not Reportable Absolute Monocytes Not Reportable Absolute Eosinophils Not Reportable Absolute Basophils Not Reportable Sodium 135.2 L Potassium 4.2 Chloride 107 Carbon Dioxide 22 Anion Gap 6 BUN 10 Creatinine 0.73 Est GFR ( Amer) > 60 Est GFR (Non-Af Amer) > 60 Glucose 121 H Calcium 8.5 12/30/18 12/30/18 12/31/18 18:50 18:50 00:43 Creatine Kinase 22 L 20 L CK-MB (CK-2) < 0.22 Troponin I < 0.012 NT-Pro-B Natriuret Pep 59 12/31/18 12/31/18 12/31/18 00:43 06:22 06:22 Creatine Kinase 24 L CK-MB (CK-2) < 0.22 < 0.22 Troponin I < 0.012 < 0.012 NT-Pro-B Natriuret Pep 12/31/18 12/31/18 12:50 14:10 Creatine Kinase 26 L CK-MB (CK-2) < 0.22 Troponin I < 0.012 NT-Pro-B Natriuret Pep Impressions: Chest X-Ray 12/30/18 17:54 IMPRESSION: NO ACUTE RADIOGRAPHIC FINDING IN THE CHEST. Assessment & Plan - Diagnosis (1) Secondary hemochromatosis Is this a current diagnosis for this admission?: Yes Plan: Will try to start Jadenu as outpatient. It is not available here in the hospital. Will try very hard to avoid blood transfusions. (2) Sickle-cell anemia with crisis Is this a current diagnosis for this admission?: Yes Plan: I will increase NS to 150 per hour. She should be wearing oxygen all the time. I will arrange. I will increase Dilaudid to q 4 hours and will temporarily increase her Oxycontin to 40 mg BID.
[2019-01-06] MEDS: RIVAROXABAN 10 MG TABLET PO SCH (17:42)
[2019-01-06] MEDS: HYDROMORPHONE HCL INJ/PF 2 MG/ML AMPULE IV PRN ×2 (18:35→22:22)
[2019-01-06] MEDS: PROMETHAZINE HCL 25 MG TABLET PO PRN (18:35)
[2019-01-06] MEDS: OXYCODONE HCL SR 40 MG TABLET PO SCH (21:38)
[2019-01-06] MEDS ORDERED: OXYCODONE HCL SR 10 MG TABLET PO SCH (22:00)
[2019-01-07] MEDS: PROMETHAZINE HCL 25 MG TABLET PO PRN (02:29)
[2019-01-07] MEDS: HYDROMORPHONE HCL INJ/PF 2 MG/ML AMPULE IV PRN ×6 (02:29→23:14)
[2019-01-07] MEDS: NORMAL SALINE 1000 ML 1,000 ML IV PRN ×4 (02:32→21:05)
[2019-01-07] MEDS: GABAPENTIN 300 MG CAPSULE PO SCH ×3 (05:30→21:04)
[2019-01-07] MEDS: DIPHENHYDRAMINE HCL 50 MG/ML VIAL IV PRN ×3 (06:10→23:13)
[2019-01-07] MEDS: HYDROXYUREA 500 MG CAPSULE PO SCH ×3 (09:19→18:28)
[2019-01-07] MEDS: FOLIC ACID 1 MG TABLET PO SCH (09:19)
[2019-01-07] MEDS: OXYCODONE HCL SR 40 MG TABLET PO SCH ×2 (09:19→21:04)
[2019-01-07] MEDS: MULTIVITAMIN TABLET PO SCH (09:19)
[2019-01-07] MEDS: TRIAMCINOLONE ACETONIDE 0.1% CREAM 15 GM TOP SCH ×2 (09:21→18:28)
--- NOTE | 2019-01-07 10:08 | PDOC PROGRESS REPORT ---
Subjective Progress Note for:: 01/07/19 Subjective:: Patient was admitted for the sickle cell crisis chronic anemia Patient is currently seeing [facility] for sickle cell crisis patient hemoglobin was 5.9 Patient received a blood transfusions 3 months back when hemoglobin was around 6 Patient's ferritin is high Patient is complaining of pain in the left elbow and the leg Reason For Visit: SCD WITH BONE PAIN CRISIS,HEMOLYTIC CRISIS Physical Exam Vital Signs: Temp Pulse Resp BP Pulse Ox 98.7 F 86 18 98/59 L 99 01/07/19 08:00 01/07/19 08:00 01/07/19 08:00 01/07/19 08:00 01/07/19 08:00 Intake & Output 01/06/19 01/07/19 01/08/19 06:59 06:59 06:59 Intake Total 3215 5564 1000 Output Total 700 Balance 2515 5564 1000 Weight 69.5 kg 69.2 kg General appearance: PRESENT: no acute distress, well-developed, well-nourished Head exam: PRESENT: atraumatic, normocephalic Eye exam: PRESENT: conjunctiva pink, EOMI, PERRLA. ABSENT: scleral icterus Ear exam: PRESENT: normal external ear exam Mouth exam: PRESENT: moist, tongue midline Neck exam: PRESENT: full ROM. ABSENT: carotid bruit, JVD, lymphadenopathy, thyromegaly Cardiovascular exam: PRESENT: RRR. ABSENT: diastolic murmur, rubs, systolic murmur Pulses: PRESENT: normal dorsalis pedis pul, +2 pedal pulses bilateral Vascular exam: PRESENT: normal capillary refill GI/Abdominal exam: PRESENT: normal bowel sounds, soft. ABSENT: distended, guarding, mass, organolmegaly, rebound, tenderness Rectal exam: PRESENT: deferred Neurological exam: PRESENT: alert, awake, oriented to person, oriented to place, oriented to time, oriented to situation, CN II-XII grossly intact. ABSENT: motor sensory deficit Psychiatric exam: PRESENT: appropriate affect, normal mood. ABSENT: homicidal ideation, suicidal ideation Skin exam: PRESENT: dry, intact, warm. ABSENT: cyanosis, rash Results Laboratory Results: 01/06/19 10:15 01/06/19 10:15 01/06/19 01/06/19 10:15 10:15 WBC 4.9 RBC 1.39 L Hgb 5.6 L Hct 16.0 L MCV 116 H MCH 40.7 H MCHC 35.2 RDW 27.8 H Plt Count 235 Seg Neutrophils % Not Reportable Lymphocytes % Not Reportable Monocytes % Not Reportable Eosinophils % Not Reportable Basophils % Not Reportable Absolute Neutrophils Not Reportable Absolute Lymphocytes Not Reportable Absolute Monocytes Not Reportable Absolute Eosinophils Not Reportable Absolute Basophils Not Reportable Sodium 135.2 L Potassium 4.2 Chloride 107 Carbon Dioxide 22 Anion Gap 6 BUN 10 Creatinine 0.73 Est GFR ( Amer) > 60 Est GFR (Non-Af Amer) > 60 Glucose 121 H Calcium 8.5 12/30/18 12/30/18 12/31/18 18:50 18:50 00:43 Creatine Kinase 22 L 20 L CK-MB (CK-2) < 0.22 Troponin I < 0.012 NT-Pro-B Natriuret Pep 59 12/31/18 12/31/18 12/31/18 00:43 06:22 06:22 Creatine Kinase 24 L CK-MB (CK-2) < 0.22 < 0.22 Troponin I < 0.012 < 0.012 NT-Pro-B Natriuret Pep 12/31/18 12/31/18 12:50 14:10 Creatine Kinase 26 L CK-MB (CK-2) < 0.22 Troponin I < 0.012 NT-Pro-B Natriuret Pep Impressions: Chest X-Ray 12/30/18 17:54 IMPRESSION: NO ACUTE RADIOGRAPHIC FINDING IN THE CHEST. Assessment & Plan - Diagnosis (1) Sickle cell pain crisis Is this a current diagnosis for this admission?: Yes Plan: Continues to current medications (2) Sickle-cell anemia with crisis Is this a current diagnosis for this admission?: Yes Plan: As per practice management consultant currently hold the blood transfusion (3) Chronic pain syndrome Is this a current diagnosis for this admission?: Yes Plan: on chronic pain medications - Time Time Spent with patient: 15-24 minutes Medications reviewed and adjusted accordingly: Yes Anticipated discharge: Other Within: Other - Plan Summary Plan Summary: Continue current medication
[2019-01-07] MEDS: ONDANSETRON HCL INJ/PF 4 MG/2 ML SDV IV PRN ×2 (10:51→19:32)
[2019-01-07] MEDS: RIVAROXABAN 10 MG TABLET PO SCH (18:28)
[2019-01-08] MEDS: ONDANSETRON HCL INJ/PF 4 MG/2 ML SDV IV PRN ×3 (02:53→18:27)
[2019-01-08] MEDS: HYDROMORPHONE HCL INJ/PF 2 MG/ML AMPULE IV PRN ×6 (02:53→22:30)
[2019-01-08] MEDS: DIPHENHYDRAMINE HCL 50 MG/ML VIAL IV PRN ×3 (06:30→22:30)
[2019-01-08] MEDS: GABAPENTIN 300 MG CAPSULE PO SCH ×3 (06:30→22:29)
[2019-01-08] MEDS: NORMAL SALINE 1000 ML 1,000 ML IV PRN ×4 (06:31→22:38)
--- NOTE | 2019-01-08 07:37 | PDOC PROGRESS REPORT ---
Subjective Progress Note for:: 01/08/19 Subjective:: Patient states that her feet and hands are still swollen. Pain is being controlled better with the increased pain medications, but overall, pain has not greatly improved. Right wrist is painful again, similar to previously when it was fractured. She requests X-ray. ROS: No dyspnea. No chest pain. Good appetite. Reason For Visit: SCD WITH BONE PAIN CRISIS,HEMOLYTIC CRISIS Physical Exam Vital Signs: Temp Pulse Resp BP Pulse Ox 99.4 F 89 16 106/62 100 01/07/19 23:06 01/07/19 23:06 01/07/19 23:06 01/07/19 23:06 01/07/19 23:06 Intake & Output 01/07/19 01/08/19 01/09/19 06:59 06:59 06:59 Intake Total 5564 5688 Balance 5564 5688 Weight 69.2 kg 69.2 kg General appearance: PRESENT: well-developed, well-nourished Head exam: PRESENT: normocephalic Respiratory exam: PRESENT: unlabored Musculoskeletal exam: PRESENT: other - chronic joint abnormalities. Moves all 4 extremities without difficulty. Edema in hands and feet. Neurological exam: PRESENT: alert, awake Psychiatric exam: PRESENT: appropriate affect Skin exam: PRESENT: normal color Results Laboratory Results: 01/06/19 10:15 01/06/19 10:15 12/30/18 12/30/18 12/31/18 18:50 18:50 00:43 Creatine Kinase 22 L 20 L CK-MB (CK-2) < 0.22 Troponin I < 0.012 NT-Pro-B Natriuret Pep 59 12/31/18 12/31/18 12/31/18 00:43 06:22 06:22 Creatine Kinase 24 L CK-MB (CK-2) < 0.22 < 0.22 Troponin I < 0.012 < 0.012 NT-Pro-B Natriuret Pep 12/31/18 12/31/18 12:50 14:10 Creatine Kinase 26 L CK-MB (CK-2) < 0.22 Troponin I < 0.012 NT-Pro-B Natriuret Pep Impressions: Chest X-Ray 12/30/18 17:54 IMPRESSION: NO ACUTE RADIOGRAPHIC FINDING IN THE CHEST. Assessment & Plan - Diagnosis (1) Secondary hemochromatosis Is this a current diagnosis for this admission?: Yes Plan: Try to hold off on blood transfusions. Will try to start Jadenu as outpatient. (2) Sickle-cell anemia with crisis Is this a current diagnosis for this admission?: Yes Plan: Continue oxygen, fluids, and pain medications without changes. I have encouraged her to walk in [place] with assistance. - Plan Summary Plan Summary: I will order right wrist X-ray for the pain, as per her request.
[2019-01-08] MEDS: HYDROXYUREA 500 MG CAPSULE PO SCH ×3 (10:16→17:06)
[2019-01-08] MEDS: MULTIVITAMIN TABLET PO SCH (10:16)
[2019-01-08] MEDS: FOLIC ACID 1 MG TABLET PO SCH (10:16)
[2019-01-08] MEDS: OXYCODONE HCL SR 40 MG TABLET PO SCH ×2 (10:17→22:29)
[2019-01-08] MEDS: TRIAMCINOLONE ACETONIDE 0.1% CREAM 15 GM TOP SCH ×2 (10:21→17:08)
--- NOTE | 2019-01-08 11:04 | RADIOLOGY REPORT (SQ) ---
EXAM DESCRIPTION: WRIST RIGHT 2 VIEWS COMPLETED DATE/TIME: 01/08/2019 9:30 am REASON FOR STUDY: pain COMPARISON: None. NUMBER OF VIEWS: Two views. TECHNIQUE: AP and lateral radiographic images acquired of the right wrist. LIMITATIONS: None. FINDINGS: No acute fracture or bony abnormality seen. Minimal degenerative change at the 1st carpom etacarpal joint. IMPRESSION: Minimal degenerative change 1st carpometacarpal joint. Otherwise, normal right wrist. TECHNICAL DOCUMENTATION: JOB ID: [id number] [employer]- All Rights Reserved Reading location - IP/workstation name: [email or web address]
[2019-01-08] MEDS: RIVAROXABAN 10 MG TABLET PO SCH (17:06)
--- NOTE | 2019-01-08 20:12 | PDOC PROGRESS REPORT ---
Subjective Progress Note for:: 01/08/19 Subjective:: Patient seen by the bedside, she has no new complaint, she was seen about the weekend by the management architect Reason For Visit: SCD WITH BONE PAIN CRISIS,HEMOLYTIC CRISIS Physical Exam Vital Signs: Temp Pulse Resp BP Pulse Ox 97.9 F 81 15 92/58 L 96 01/08/19 16:35 01/08/19 16:35 01/08/19 16:35 01/08/19 16:35 01/08/19 16:35 Intake & Output 01/07/19 01/08/19 01/09/19 06:59 06:59 06:59 Intake Total 5564 5688 2047 Balance 5564 5688 2047 Weight 69.2 kg 69.2 kg General appearance: PRESENT: no acute distress Eye exam: PRESENT: PERRLA Respiratory exam: PRESENT: clear to auscultation carolyn Cardiovascular exam: PRESENT: +S1, +S2 GI/Abdominal exam: PRESENT: soft Neurological exam: PRESENT: alert Results Laboratory Results: 01/06/19 10:15 01/06/19 10:15 12/30/18 12/30/18 12/31/18 18:50 18:50 00:43 Creatine Kinase 22 L 20 L CK-MB (CK-2) < 0.22 Troponin I < 0.012 NT-Pro-B Natriuret Pep 59 12/31/18 12/31/18 12/31/18 00:43 06:22 06:22 Creatine Kinase 24 L CK-MB (CK-2) < 0.22 < 0.22 Troponin I < 0.012 < 0.012 NT-Pro-B Natriuret Pep 12/31/18 12/31/18 12:50 14:10 Creatine Kinase 26 L CK-MB (CK-2) < 0.22 Troponin I < 0.012 NT-Pro-B Natriuret Pep Impressions: Chest X-Ray 12/30/18 17:54 IMPRESSION: NO ACUTE RADIOGRAPHIC FINDING IN THE CHEST. Wrist X-Ray 01/08/19 07:32 IMPRESSION: Minimal degenerative change 1st carpometacarpal joint. Otherwise, normal right wrist. Assessment & Plan - Diagnosis (1) Vaso-occlusive sickle cell crisis Is this a current diagnosis for this admission?: Yes (2) Secondary hemochromatosis Is this a current diagnosis for this admission?: Yes (3) Hemolytic anemia Qualifiers: Hemolytic anemia type: other hemoglobinopathy Qualified Code(s): D58.2 - Other hemoglobinopathies Is this a current diagnosis for this admission?: Yes
[2019-01-09] MEDS: ONDANSETRON HCL INJ/PF 4 MG/2 ML SDV IV PRN ×3 (02:36→18:46)
[2019-01-09] MEDS: HYDROMORPHONE HCL INJ/PF 2 MG/ML AMPULE IV PRN ×6 (02:36→22:43)
[2019-01-09] MEDS: NORMAL SALINE 1000 ML 1,000 ML IV PRN ×3 (06:42→22:44)
[2019-01-09] MEDS: GABAPENTIN 300 MG CAPSULE PO SCH ×3 (06:42→22:43)
[2019-01-09] MEDS: DIPHENHYDRAMINE HCL 50 MG/ML VIAL IV PRN ×3 (06:43→22:44)
--- NOTE | 2019-01-09 07:47 | PDOC PROGRESS REPORT ---
Subjective Progress Note for:: 01/09/19 Subjective:: Pain controlled but still severe, today had long discussion about SS dx in general and what to expect overall. Reason For Visit: SCD WITH BONE PAIN CRISIS,HEMOLYTIC CRISIS Physical Exam Vital Signs: Temp Pulse Resp BP Pulse Ox 98.1 F 79 16 102/55 L 99 01/08/19 23:43 01/08/19 23:43 01/08/19 23:43 01/08/19 23:43 01/08/19 23:43 Intake & Output 01/08/19 01/09/19 01/10/19 06:59 06:59 06:59 Intake Total 5688 4697 Balance 5688 4697 Weight 69.2 kg 68.1 kg General appearance: PRESENT: no acute distress, well-developed, well-nourished Head exam: PRESENT: atraumatic, normocephalic Eye exam: PRESENT: conjunctiva pink, EOMI, PERRLA. ABSENT: scleral icterus Ear exam: PRESENT: normal external ear exam Mouth exam: PRESENT: moist, tongue midline Neck exam: ABSENT: carotid bruit, JVD, lymphadenopathy, thyromegaly Respiratory exam: PRESENT: clear to auscultation carolyn. ABSENT: rales, rhonchi, wheezes Cardiovascular exam: PRESENT: RRR. ABSENT: diastolic murmur, rubs, systolic murmur Pulses: PRESENT: normal dorsalis pedis pul Vascular exam: PRESENT: normal capillary refill GI/Abdominal exam: PRESENT: normal bowel sounds, soft. ABSENT: distended, guarding, mass, organolmegaly, rebound, tenderness Rectal exam: PRESENT: deferred Extremities exam: PRESENT: full ROM. ABSENT: calf tenderness, clubbing, pedal edema Neurological exam: PRESENT: alert, awake, oriented to person, oriented to place, oriented to time, oriented to situation, CN II-XII grossly intact. ABSENT: motor sensory deficit Psychiatric exam: PRESENT: appropriate affect, normal mood. ABSENT: homicidal ideation, suicidal ideation Skin exam: PRESENT: dry, intact, warm. ABSENT: cyanosis, rash Results Laboratory Results: 01/06/19 10:15 01/06/19 10:15 12/30/18 12/30/18 12/31/18 18:50 18:50 00:43 Creatine Kinase 22 L 20 L CK-MB (CK-2) < 0.22 Troponin I < 0.012 NT-Pro-B Natriuret Pep 59 12/31/18 12/31/18 12/31/18 00:43 06:22 06:22 Creatine Kinase 24 L CK-MB (CK-2) < 0.22 < 0.22 Troponin I < 0.012 < 0.012 NT-Pro-B Natriuret Pep 12/31/18 12/31/18 12:50 14:10 Creatine Kinase 26 L CK-MB (CK-2) < 0.22 Troponin I < 0.012 NT-Pro-B Natriuret Pep Impressions: Chest X-Ray 12/30/18 17:54 IMPRESSION: NO ACUTE RADIOGRAPHIC FINDING IN THE CHEST. Wrist X-Ray 01/08/19 07:32 IMPRESSION: Minimal degenerative change 1st carpometacarpal joint. Otherwise, normal right wrist. Assessment & Plan - Diagnosis (1) Sickle-cell anemia with crisis Is this a current diagnosis for this admission?: Yes Plan: Cont w/ current pain control and other supportive measures. (2) Anemia Qualifiers: 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 Qualified Code(s): D58.2 - Other hemoglobinopathies Is this a current diagnosis for this admission?: Yes Plan: 2nd to SS disease, hold on transfusion for now. She usually did get transfusions in past once hb fell below 6 but she is very concerned about her 2nd hemachromatosis so as of now Dr. Ramirez and her have held on blood transfusion. She is clinically stable so we can hold today. (3) Secondary hemochromatosis Is this a current diagnosis for this admission?: Yes Plan: There are plans to start chelation tx w/ Jadenu as outpt - Time Time Spent with patient: 35 or more minutes - Inpatient Certification Based on my medical assessment, after consideration of the patient's comorbidities, presenting symptoms, or acuity I expect that the services needed warrant INPATIENT care.: Yes I certify that my determination is in accordance with my understanding of Medicare's requirements for reasonable and necessary INPATIENT services [42 CFR 412.3e].: Yes Medical Necessity: Need For IV Fluids, Need for Pain Control
[2019-01-09] MEDS: HYDROXYUREA 500 MG CAPSULE PO SCH ×3 (09:32→17:00)
[2019-01-09] MEDS: OXYCODONE HCL SR 40 MG TABLET PO SCH ×2 (09:32→22:43)
[2019-01-09] MEDS: MULTIVITAMIN TABLET PO SCH (09:32)
[2019-01-09] MEDS: FOLIC ACID 1 MG TABLET PO SCH (09:32)
[2019-01-09] MEDS: TRIAMCINOLONE ACETONIDE 0.1% CREAM 15 GM TOP SCH ×2 (09:33→17:01)
[2019-01-09] MEDS: RIVAROXABAN 10 MG TABLET PO SCH (17:00)
[2019-01-09 19:20] LABS: ANION GAP 5 (5-19); BLOOD UREA NITROGEN 6 mg/dL (7-20); CALCIUM 8.5 mg/dL (8.4-10.2); CARBON DIOXIDE 24 mmol/L (22-30); CHLORIDE 108 mmol/L (98-107); GLUCOSE 71 mg/dL (75-110); HEMATOCRIT 16.6 % (36.0-47.0); MEAN CORPUSCULAR HEMOGLOBIN 41.4 pg (27.0-33.4); MEAN CORPUSCULAR HGB CONC 34.6 g/dL (32.0-36.0); PLATELET COUNT 200 10^3/uL (150-450); POTASSIUM 4.2 mmol/L (3.6-5.0); RED BLOOD COUNT 1.39 10^6/uL (3.72-5.28); RED CELL DISTRIBUTION WIDTH 29.6 % (11.5-14.0); WHITE BLOOD COUNT 4.6 10^3/uL (4.0-10.5)
[2019-01-09 19:26] LABS: HEMOGLOBIN 5.7 g/dL (12.0-15.5)
[2019-01-09 19:27] LABS: MEAN CORPUSCULAR VOLUME 120 fl (80-97)
[2019-01-09 19:38] LABS: ABSOLUTE MONOCYTES # (MANUAL) 0.1 10^3/uL (0.1-1.4); BASOPHILS % (MANUAL) 2 % (0-2); EOSINOPHILS % (MANUAL) 5 % (0-6); LYMPHOCYTES % (MANUAL) 42 % (13-45); MONOCYTES % (MANUAL) 3 % (3-13); NUCLEATED RED BLOOD CELLS 108 /100 WBC (0); SEGMENTED NEUTROPHILS % (MAN) 47 % (42-78); TOTAL CELLS COUNTED 100
[2019-01-09 19:42] LABS: ANISOCYTOSIS 4+; HYPOCHROMASIA 4+; POIKILOCYTOSIS 1+; SICKLE RED CELLS 1+
[2019-01-09 19:45] LABS: PLATELET COMMENT ADEQUATE
--- NOTE | 2019-01-09 20:05 | PDOC PROGRESS REPORT ---
Subjective Progress Note for:: 01/09/19 Subjective:: Patient seen by the bedside, she has no new complaint, she was seen by the candy spreader Reason For Visit: SCD WITH BONE PAIN CRISIS,HEMOLYTIC CRISIS Physical Exam Vital Signs: Temp Pulse Resp BP Pulse Ox 98.8 F 80 16 91/50 L 98 01/09/19 15:20 01/09/19 15:20 01/09/19 15:20 01/09/19 15:20 01/09/19 15:20 Intake & Output 01/08/19 01/09/19 01/10/19 06:59 06:59 06:59 Intake Total 5688 4697 1240 Balance 5688 4697 1240 Weight 69.2 kg 68.1 kg General appearance: PRESENT: no acute distress Head exam: PRESENT: atraumatic, normocephalic Eye exam: PRESENT: PERRLA Mouth exam: PRESENT: moist, tongue midline Neck exam: PRESENT: full ROM Respiratory exam: PRESENT: clear to auscultation carolyn Cardiovascular exam: PRESENT: +S1, +S2 Vascular exam: PRESENT: normal capillary refill GI/Abdominal exam: PRESENT: normal bowel sounds, soft Rectal exam: PRESENT: deferred Neurological exam: PRESENT: alert, CN II-XII grossly intact Psychiatric exam: PRESENT: appropriate affect, normal mood Skin exam: PRESENT: dry, intact, warm. ABSENT: cyanosis, rash Results Laboratory Results: 01/09/19 18:37 01/09/19 18:37 01/09/19 01/09/19 18:37 18:37 WBC 4.6 RBC 1.39 L Hgb 5.7 L Hct 16.6 L MCV 120 H D MCH 41.4 H MCHC 34.6 RDW 29.6 H Plt Count 200 Seg Neutrophils % Not Reportable Lymphocytes % Not Reportable Monocytes % Not Reportable Eosinophils % Not Reportable Basophils % Not Reportable Absolute Neutrophils Not Reportable Absolute Lymphocytes Not Reportable Absolute Monocytes Not Reportable Absolute Eosinophils Not Reportable Absolute Basophils Not Reportable Sodium 137.0 Potassium 4.2 Chloride 108 H Carbon Dioxide 24 Anion Gap 5 BUN 6 L Creatinine 0.53 Est GFR ( Amer) > 60 Est GFR (Non-Af Amer) > 60 Glucose 71 L Calcium 8.5 12/30/18 12/30/18 12/31/18 18:50 18:50 00:43 Creatine Kinase 22 L 20 L CK-MB (CK-2) < 0.22 Troponin I < 0.012 NT-Pro-B Natriuret Pep 59 12/31/18 12/31/18 12/31/18 00:43 06:22 06:22 Creatine Kinase 24 L CK-MB (CK-2) < 0.22 < 0.22 Troponin I < 0.012 < 0.012 NT-Pro-B Natriuret Pep 12/31/18 12/31/18 12:50 14:10 Creatine Kinase 26 L CK-MB (CK-2) < 0.22 Troponin I < 0.012 NT-Pro-B Natriuret Pep Impressions: Chest X-Ray 12/30/18 17:54 IMPRESSION: NO ACUTE RADIOGRAPHIC FINDING IN THE CHEST. Wrist X-Ray 01/08/19 07:32 IMPRESSION: Minimal degenerative change 1st carpometacarpal joint. Otherwise, normal right wrist. Assessment & Plan - Diagnosis (1) Vaso-occlusive sickle cell crisis Is this a current diagnosis for this admission?: Yes (2) Secondary hemochromatosis Is this a current diagnosis for this admission?: Yes (3) Hemolytic anemia Qualifiers: Hemolytic anemia type: other hemoglobinopathy Qualified Code(s): D58.2 - Other hemoglobinopathies Is this a current diagnosis for this admission?: Yes
[2019-01-10] MEDS: HYDROMORPHONE HCL INJ/PF 2 MG/ML AMPULE IV PRN ×6 (02:46→23:26)
[2019-01-10] MEDS: ONDANSETRON HCL INJ/PF 4 MG/2 ML SDV IV PRN (02:46)
[2019-01-10] MEDS: NORMAL SALINE 1000 ML 1,000 ML IV PRN ×3 (05:33→15:57)
[2019-01-10] MEDS: GABAPENTIN 300 MG CAPSULE PO SCH ×3 (05:33→22:55)
[2019-01-10] MEDS: DIPHENHYDRAMINE HCL 50 MG/ML VIAL IV PRN ×3 (06:53→22:55)
[2019-01-10 07:07] LABS: MEAN CORPUSCULAR HEMOGLOBIN 41.7 pg (27.0-33.4); MEAN CORPUSCULAR HGB CONC 35.2 g/dL (32.0-36.0); MEAN CORPUSCULAR VOLUME 119 fl (80-97); PLATELET COUNT 214 10^3/uL (150-450); RED BLOOD COUNT 1.43 10^6/uL (3.72-5.28); RED CELL DISTRIBUTION WIDTH 30.4 % (11.5-14.0); WHITE BLOOD COUNT 4.9 10^3/uL (4.0-10.5)
[2019-01-10 07:22] LABS: ANION GAP 6 (5-19); BLOOD UREA NITROGEN 6 mg/dL (7-20); CALCIUM 8.2 mg/dL (8.4-10.2); CARBON DIOXIDE 25 mmol/L (22-30); CHLORIDE 107 mmol/L (98-107); GLUCOSE 87 mg/dL (75-110); POTASSIUM 4.1 mmol/L (3.6-5.0)
--- NOTE | 2019-01-10 07:26 | PDOC PROGRESS REPORT ---
Subjective Progress Note for:: 01/10/19 Subjective:: Still w/ pain but controlled, needs the IV pain meds on schedule, having headache and c/o of L ear pain this am. Discussed w/ pt that HOFFMANN can come from termite inspector zofran use so encouraged use of phenergan more for nausea for next 24 hours to see if that helps, told nursing also. Hb is still in 5 range, discussed w/ pt to talk to Dr. Ramirez about whether transfusion would be appropriate or not. Reason For Visit: SCD WITH BONE PAIN CRISIS,HEMOLYTIC CRISIS Physical Exam Vital Signs: Temp Pulse Resp BP Pulse Ox 97.8 F 78 16 94/55 L 99 01/10/19 00:00 01/10/19 00:00 01/10/19 00:00 01/10/19 00:00 01/10/19 00:00 Intake & Output 01/09/19 01/10/19 01/11/19 06:59 06:59 06:59 Intake Total 4697 3720 Balance 4697 3720 Weight 68.1 kg 68.1 kg General appearance: PRESENT: no acute distress, well-developed, well-nourished Head exam: PRESENT: atraumatic, normocephalic Eye exam: PRESENT: conjunctiva pink, EOMI, PERRLA. ABSENT: scleral icterus Ear exam: PRESENT: normal external ear exam Mouth exam: PRESENT: moist, tongue midline Neck exam: ABSENT: carotid bruit, JVD, lymphadenopathy, thyromegaly Respiratory exam: PRESENT: clear to auscultation carolyn. ABSENT: rales, rhonchi, wheezes Cardiovascular exam: PRESENT: RRR. ABSENT: diastolic murmur, rubs, systolic murmur Pulses: PRESENT: normal dorsalis pedis pul Vascular exam: PRESENT: normal capillary refill GI/Abdominal exam: PRESENT: normal bowel sounds, soft. ABSENT: distended, guarding, mass, organolmegaly, rebound, tenderness Rectal exam: PRESENT: deferred Extremities exam: PRESENT: full ROM. ABSENT: calf tenderness, clubbing, pedal edema Neurological exam: PRESENT: alert, awake, oriented to person, oriented to place, oriented to time, oriented to situation, CN II-XII grossly intact. ABSENT: motor sensory deficit Psychiatric exam: PRESENT: appropriate affect, normal mood. ABSENT: homicidal ideation, suicidal ideation Skin exam: PRESENT: dry, intact, warm. ABSENT: cyanosis, rash Results Laboratory Results: 01/09/19 01/09/19 18:37 18:37 WBC 4.6 RBC 1.39 L Hgb 5.7 L Hct 16.6 L MCV 120 H D MCH 41.4 H MCHC 34.6 RDW 29.6 H Plt Count 200 Seg Neutrophils % Not Reportable Lymphocytes % Not Reportable Monocytes % Not Reportable Eosinophils % Not Reportable Basophils % Not Reportable Absolute Neutrophils Not Reportable Absolute Lymphocytes Not Reportable Absolute Monocytes Not Reportable Absolute Eosinophils Not Reportable Absolute Basophils Not Reportable Sodium 137.0 Potassium 4.2 Chloride 108 H Carbon Dioxide 24 Anion Gap 5 BUN 6 L Creatinine 0.53 Est GFR ( Amer) > 60 Est GFR (Non-Af Amer) > 60 Glucose 71 L Calcium 8.5 12/30/18 12/30/18 12/31/18 18:50 18:50 00:43 Creatine Kinase 22 L 20 L CK-MB (CK-2) < 0.22 Troponin I < 0.012 NT-Pro-B Natriuret Pep 59 12/31/18 12/31/18 12/31/18 00:43 06:22 06:22 Creatine Kinase 24 L CK-MB (CK-2) < 0.22 < 0.22 Troponin I < 0.012 < 0.012 NT-Pro-B Natriuret Pep 12/31/18 12/31/18 12:50 14:10 Creatine Kinase 26 L CK-MB (CK-2) < 0.22 Troponin I < 0.012 NT-Pro-B Natriuret Pep Impressions: Chest X-Ray 12/30/18 17:54 IMPRESSION: NO ACUTE RADIOGRAPHIC FINDING IN THE CHEST. Wrist X-Ray 01/08/19 07:32 IMPRESSION: Minimal degenerative change 1st carpometacarpal joint. Otherwise, normal right wrist. Assessment & Plan - Diagnosis (1) Sickle-cell anemia with crisis Is this a current diagnosis for this admission?: Yes Plan: Con't current regimen, no changes in pain regimen today but still in moderate crisis so con't (2) Anemia Qualifiers: 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 Qualified Code(s): D58.2 - Other hemoglobinopathies Is this a current diagnosis for this admission?: Yes Plan: I believe pt would benefit from transfusion but will let Dr. Ramirez and pt decide after today's hb (3) Secondary hemochromatosis Is this a current diagnosis for this admission?: Yes Plan: Tx planned at outpt w/ Jadenu - Time Time Spent with patient: 15-24 minutes - Inpatient Certification Based on my medical assessment, after consideration of the patient's comorbidities, presenting symptoms, or acuity I expect that the services needed warrant INPATIENT care.: Yes I certify that my determination is in accordance with my understanding of Medicare's requirements for reasonable and necessary INPATIENT services [42 CFR 412.3e].: Yes Medical Necessity: Need For IV Fluids, Need for Pain Control
[2019-01-10 08:08] LABS: ABSOLUTE MONOCYTES # (MANUAL) 0.1 10^3/uL (0.1-1.4); BASOPHILS % (MANUAL) 0 % (0-2); EOSINOPHILS % (MANUAL) 4 % (0-6); LYMPHOCYTES % (MANUAL) 41 % (13-45); MONOCYTES % (MANUAL) 2 % (3-13); NUCLEATED RED BLOOD CELLS 102 /100 WBC (0); SEGMENTED NEUTROPHILS % (MAN) 53 % (42-78); TOTAL CELLS COUNTED 100
[2019-01-10 08:11] LABS: ANISOCYTOSIS 3+; HOWELL-JOLLY BODIES PRESENT; OVALOCYTES 1+; PAPPENHEIMER BODIES PRESENT; PLATELET COMMENT ADEQUATE; POIKILOCYTOSIS 1+; POLYCHROMASIA 1+; SICKLE RED CELLS 1+; TARGET CELLS SLIGHT
[2019-01-10] MEDS: HYDROXYUREA 500 MG CAPSULE PO SCH ×3 (09:18→17:01)
[2019-01-10] MEDS: OXYCODONE HCL SR 40 MG TABLET PO SCH ×2 (09:18→22:56)
[2019-01-10] MEDS: MULTIVITAMIN TABLET PO SCH (09:19)
[2019-01-10] MEDS: FOLIC ACID 1 MG TABLET PO SCH (09:19)
[2019-01-10] MEDS: TRIAMCINOLONE ACETONIDE 0.1% CREAM 15 GM TOP SCH ×2 (10:51→17:01)
[2019-01-10] MEDS: PROMETHAZINE HCL 25 MG TABLET PO PRN ×2 (10:52→19:20)
--- NOTE | 2019-01-10 14:33 | PDOC PROGRESS REPORT ---
Subjective Progress Note for:: 01/10/19 Subjective:: Patient seen by the bedside, still anemic from sickle cell disease Reason For Visit: SCD WITH BONE PAIN CRISIS,HEMOLYTIC CRISIS Physical Exam Vital Signs: Temp Pulse Resp BP Pulse Ox 99.3 F 80 18 100/56 L 100 01/10/19 07:34 01/10/19 07:34 01/10/19 07:34 01/10/19 07:34 01/10/19 07:34 Intake & Output 01/09/19 01/10/19 01/11/19 06:59 06:59 06:59 Intake Total 4697 3720 565 Balance 4697 3720 565 Weight 68.1 kg 68.1 kg General appearance: PRESENT: no acute distress Eye exam: PRESENT: PERRLA Respiratory exam: PRESENT: clear to auscultation carolyn Cardiovascular exam: PRESENT: +S1, +S2 Neurological exam: PRESENT: alert Results Laboratory Results: 01/10/19 06:00 01/10/19 06:00 01/09/19 01/09/19 01/10/19 18:37 18:37 06:00 WBC 4.6 RBC 1.39 L Hgb 5.7 L Hct 16.6 L MCV 120 H D MCH 41.4 H MCHC 34.6 RDW 29.6 H Plt Count 200 Seg Neutrophils % Not Reportable Lymphocytes % Not Reportable Monocytes % Not Reportable Eosinophils % Not Reportable Basophils % Not Reportable Absolute Neutrophils Not Reportable Absolute Lymphocytes Not Reportable Absolute Monocytes Not Reportable Absolute Eosinophils Not Reportable Absolute Basophils Not Reportable Sodium 137.0 138.3 Potassium 4.2 4.1 Chloride 108 H 107 Carbon Dioxide 24 25 Anion Gap 5 6 BUN 6 L 6 L Creatinine 0.53 0.59 Est GFR ( Amer) > 60 > 60 Est GFR (Non-Af Amer) > 60 > 60 Glucose 71 L 87 Calcium 8.5 8.2 L 01/10/19 06:00 WBC 4.9 RBC 1.43 L Hgb 6.0 L Hct 17.0 L MCV 119 H MCH 41.7 H MCHC 35.2 RDW 30.4 H Plt Count 214 Seg Neutrophils % Not Reportable Lymphocytes % Not Reportable Monocytes % Not Reportable Eosinophils % Not Reportable Basophils % Not Reportable Absolute Neutrophils Not Reportable Absolute Lymphocytes Not Reportable Absolute Monocytes Not Reportable Absolute Eosinophils Not Reportable Absolute Basophils Not Reportable Sodium Potassium Chloride Carbon Dioxide Anion Gap BUN Creatinine Est GFR ( Amer) Est GFR (Non-Af Amer) Glucose Calcium 12/30/18 12/30/18 12/31/18 18:50 18:50 00:43 Creatine Kinase 22 L 20 L CK-MB (CK-2) < 0.22 Troponin I < 0.012 NT-Pro-B Natriuret Pep 59 12/31/18 12/31/18 12/31/18 00:43 06:22 06:22 Creatine Kinase 24 L CK-MB (CK-2) < 0.22 < 0.22 Troponin I < 0.012 < 0.012 NT-Pro-B Natriuret Pep 12/31/18 12/31/18 12:50 14:10 Creatine Kinase 26 L CK-MB (CK-2) < 0.22 Troponin I < 0.012 NT-Pro-B Natriuret Pep Impressions: Chest X-Ray 12/30/18 17:54 IMPRESSION: NO ACUTE RADIOGRAPHIC FINDING IN THE CHEST. Wrist X-Ray 01/08/19 07:32 IMPRESSION: Minimal degenerative change 1st carpometacarpal joint. Otherwise, normal right wrist. Assessment & Plan - Diagnosis (1) Vaso-occlusive sickle cell crisis Is this a current diagnosis for this admission?: Yes (2) Secondary hemochromatosis Is this a current diagnosis for this admission?: Yes (3) Hemolytic anemia Qualifiers: Hemolytic anemia type: other hemoglobinopathy Qualified Code(s): D58.2 - Other hemoglobinopathies Is this a current diagnosis for this admission?: Yes
[2019-01-10] MEDS: RIVAROXABAN 10 MG TABLET PO SCH (17:00)
[2019-01-11] MEDS: HYDROMORPHONE HCL INJ/PF 2 MG/ML AMPULE IV PRN ×5 (03:42→20:01)
[2019-01-11] MEDS: GABAPENTIN 300 MG CAPSULE PO SCH ×3 (06:23→21:29)
[2019-01-11 06:29] LABS: HEMATOCRIT 17.1 % (36.0-47.0); MEAN CORPUSCULAR HEMOGLOBIN 42.2 pg (27.0-33.4); MEAN CORPUSCULAR HGB CONC 35.3 g/dL (32.0-36.0); MEAN CORPUSCULAR VOLUME 120 fl (80-97); PLATELET COUNT 190 10^3/uL (150-450); RED BLOOD COUNT 1.43 10^6/uL (3.72-5.28); RED CELL DISTRIBUTION WIDTH 31.1 % (11.5-14.0); WHITE BLOOD COUNT 3.6 10^3/uL (4.0-10.5)
[2019-01-11 06:41] LABS: ANION GAP 5 (5-19); BLOOD UREA NITROGEN 5 mg/dL (7-20); CALCIUM 8.6 mg/dL (8.4-10.2); CARBON DIOXIDE 25 mmol/L (22-30); CHLORIDE 108 mmol/L (98-107); GLUCOSE 99 mg/dL (75-110); POTASSIUM 3.9 mmol/L (3.6-5.0)
[2019-01-11] MEDS: DIPHENHYDRAMINE HCL 50 MG/ML VIAL IV PRN ×2 (07:44→15:41)
[2019-01-11] MEDS ORDERED: NORMAL SALINE 250 ML IV PRN (07:44)
--- NOTE | 2019-01-11 07:49 | PDOC PROGRESS REPORT ---
Subjective Progress Note for:: 01/11/19 Subjective:: Patient states that she still feels terrible. No improvement. Her pain is very bad and she has been told that it is not yet time for her pain meds. Reason For Visit: SCD WITH BONE PAIN CRISIS,HEMOLYTIC CRISIS Physical Exam Vital Signs: Temp Pulse Resp BP Pulse Ox 98.4 F 82 16 106/58 L 97 01/11/19 00:00 01/11/19 00:00 01/11/19 00:00 01/11/19 00:00 01/11/19 00:00 Intake & Output 01/10/19 01/11/19 01/12/19 06:59 06:59 06:59 Intake Total 3720 3186 Balance 3720 3186 Weight 68.1 kg 68.1 kg General appearance: PRESENT: mild distress, well-developed, well-nourished Head exam: PRESENT: normocephalic Respiratory exam: PRESENT: unlabored Neurological exam: PRESENT: alert, awake Psychiatric exam: PRESENT: appropriate affect Skin exam: PRESENT: normal color Results Laboratory Results: 01/11/19 05:53 01/09/19 01/10/19 01/11/19 18:37 06:00 05:53 WBC 4.6 4.9 RBC 1.39 L 1.43 L Hgb 5.7 L 6.0 L Hct 16.6 L 17.0 L MCV 120 H D 119 H MCH 41.4 H 41.7 H MCHC 34.6 35.2 RDW 29.6 H 30.4 H Plt Count 200 214 Seg Neutrophils % Not Reportable Lymphocytes % Not Reportable Monocytes % Not Reportable Eosinophils % Not Reportable Basophils % Not Reportable Absolute Neutrophils Not Reportable Absolute Lymphocytes Not Reportable Absolute Monocytes Not Reportable Absolute Eosinophils Not Reportable Absolute Basophils Not Reportable Sodium 138.2 Potassium 3.9 Chloride 108 H Carbon Dioxide 25 Anion Gap 5 BUN 5 L Creatinine 0.53 Est GFR ( Amer) > 60 Est GFR (Non-Af Amer) > 60 Glucose 99 Calcium 8.6 01/11/19 05:53 WBC RBC Hgb Hct MCV MCH MCHC RDW Plt Count Seg Neutrophils % Not Reportable Lymphocytes % Not Reportable Monocytes % Not Reportable Eosinophils % Not Reportable Basophils % Not Reportable Absolute Neutrophils Not Reportable Absolute Lymphocytes Not Reportable Absolute Monocytes Not Reportable Absolute Eosinophils Not Reportable Absolute Basophils Not Reportable Sodium Potassium Chloride Carbon Dioxide Anion Gap BUN Creatinine Est GFR ( Amer) Est GFR (Non-Af Amer) Glucose Calcium 12/30/18 12/30/18 12/31/18 18:50 18:50 00:43 Creatine Kinase 22 L 20 L CK-MB (CK-2) < 0.22 Troponin I < 0.012 NT-Pro-B Natriuret Pep 59 12/31/18 12/31/18 12/31/18 00:43 06:22 06:22 Creatine Kinase 24 L CK-MB (CK-2) < 0.22 < 0.22 Troponin I < 0.012 < 0.012 NT-Pro-B Natriuret Pep 12/31/18 12/31/18 12:50 14:10 Creatine Kinase 26 L CK-MB (CK-2) < 0.22 Troponin I < 0.012 NT-Pro-B Natriuret Pep Impressions: Chest X-Ray 12/30/18 17:54 IMPRESSION: NO ACUTE RADIOGRAPHIC FINDING IN THE CHEST. Wrist X-Ray 01/08/19 07:32 IMPRESSION: Minimal degenerative change 1st carpometacarpal joint. Otherwise, normal right wrist. Assessment & Plan - Diagnosis (1) Secondary hemochromatosis Is this a current diagnosis for this admission?: Yes Plan: To start [facility] as outpatient. (2) Sickle-cell anemia with crisis Is this a current diagnosis for this admission?: Yes Plan: Continue current care. We discussed blood transfusion. I will go ahead and transfuse 1 unit today. I offered to increase pain meds, but she declined. She has requested 1 banana bag. I will arrange.
[2019-01-11 08:26] LABS: ABSOLUTE LYMPHOCYTES# (MANUAL) 1.2 10^3/uL (0.5-4.7); ABSOLUTE MONOCYTES # (MANUAL) 0.1 10^3/uL (0.1-1.4); BASOPHILS % (MANUAL) 0 % (0-2); EOSINOPHILS % (MANUAL) 9 % (0-6); LYMPHOCYTES % (MANUAL) 33 % (13-45); MONOCYTES % (MANUAL) 2 % (3-13); NUCLEATED RED BLOOD CELLS 302 /100 WBC (0); SEGMENTED NEUTROPHILS % (MAN) 56 % (42-78); TOTAL CELLS COUNTED 100
[2019-01-11 08:42] LABS: ANISOCYTOSIS 4+; HOWELL-JOLLY BODIES PRESENT; PLATELET COMMENT ADEQUATE; POLYCHROMASIA SLIGHT; SCHISTOCYTES SLIGHT; SICKLE RED CELLS 1+; TARGET CELLS SLIGHT
[2019-01-11] MEDS: MULTIVITAMIN TABLET PO SCH (09:54)
[2019-01-11] MEDS: OXYCODONE HCL SR 40 MG TABLET PO SCH ×2 (09:54→21:29)
[2019-01-11] MEDS: HYDROXYUREA 500 MG CAPSULE PO SCH ×3 (09:54→17:40)
[2019-01-11] MEDS: FOLIC ACID 1 MG TABLET PO SCH (09:54)
[2019-01-11] MEDS: TRIAMCINOLONE ACETONIDE 0.1% CREAM 15 GM TOP SCH ×2 (09:55→17:40)
[2019-01-11] MEDS: PROMETHAZINE HCL 25 MG TABLET PO PRN ×2 (11:44→20:01)
[2019-01-11] MEDS ORDERED: NORMAL SALINE 1000 ML 1,000 ML with POTASSIUM CHLORIDE 10 MEQ, MAGNESIUM SULFATE 8 MEQ,... IV ONE ×5 (12:00)
[2019-01-11] MEDS: RIVAROXABAN 10 MG TABLET PO SCH (17:40)
--- NOTE | 2019-01-11 18:24 | PDOC PROGRESS REPORT ---
Subjective Progress Note for:: 01/11/19 Subjective:: Patient seen by the bedside, she said she is weak she received 1 unit of red blood cells Reason For Visit: SCD WITH BONE PAIN CRISIS,HEMOLYTIC CRISIS Physical Exam Vital Signs: Temp Pulse Resp BP Pulse Ox 97.8 F 72 18 98/56 L 99 01/11/19 16:00 01/11/19 16:00 01/11/19 16:00 01/11/19 16:00 01/11/19 16:00 Intake & Output 01/10/19 01/11/19 01/12/19 06:59 06:59 06:59 Intake Total 3720 3186 1300 Balance 3720 3186 1300 Weight 68.1 kg 68.1 kg General appearance: PRESENT: no acute distress Eye exam: PRESENT: PERRLA Respiratory exam: PRESENT: clear to auscultation carolyn Cardiovascular exam: PRESENT: +S1, +S2 GI/Abdominal exam: PRESENT: soft Neurological exam: PRESENT: alert Results Laboratory Results: 01/11/19 05:53 01/11/19 05:53 01/11/19 01/11/19 01/11/19 05:53 05:53 09:08 WBC 3.6 L RBC 1.43 L Hgb 6.0 L Hct 17.1 L MCV 120 H MCH 42.2 H MCHC 35.3 RDW 31.1 H Plt Count 190 Seg Neutrophils % Not Reportable Lymphocytes % Not Reportable Monocytes % Not Reportable Eosinophils % Not Reportable Basophils % Not Reportable Absolute Neutrophils Not Reportable Absolute Lymphocytes Not Reportable Absolute Monocytes Not Reportable Absolute Eosinophils Not Reportable Absolute Basophils Not Reportable Sodium 138.2 Potassium 3.9 Chloride 108 H Carbon Dioxide 25 Anion Gap 5 BUN 5 L Creatinine 0.53 Est GFR ( Amer) > 60 Est GFR (Non-Af Amer) > 60 Glucose 99 Calcium 8.6 Blood Type O POSITIVE Antibody Screen NEGATIVE 12/30/18 12/30/18 12/31/18 18:50 18:50 00:43 Creatine Kinase 22 L 20 L CK-MB (CK-2) < 0.22 Troponin I < 0.012 NT-Pro-B Natriuret Pep 59 12/31/18 12/31/18 12/31/18 00:43 06:22 06:22 Creatine Kinase 24 L CK-MB (CK-2) < 0.22 < 0.22 Troponin I < 0.012 < 0.012 NT-Pro-B Natriuret Pep 12/31/18 12/31/18 12:50 14:10 Creatine Kinase 26 L CK-MB (CK-2) < 0.22 Troponin I < 0.012 NT-Pro-B Natriuret Pep Impressions: Chest X-Ray 12/30/18 17:54 IMPRESSION: NO ACUTE RADIOGRAPHIC FINDING IN THE CHEST. Wrist X-Ray 01/08/19 07:32 IMPRESSION: Minimal degenerative change 1st carpometacarpal joint. Otherwise, normal right wrist. Assessment & Plan - Diagnosis (1) Vaso-occlusive sickle cell crisis Is this a current diagnosis for this admission?: Yes (2) Secondary hemochromatosis Is this a current diagnosis for this admission?: Yes (3) Hemolytic anemia Qualifiers: Hemolytic anemia type: other hemoglobinopathy Qualified Code(s): D58.2 - Other hemoglobinopathies Is this a current diagnosis for this admission?: Yes
[2019-01-11 19:00] LABS: HEMATOCRIT 21.5 % (36.0-47.0); MEAN CORPUSCULAR HGB CONC 35.3 g/dL (32.0-36.0); PLATELET COUNT 188 10^3/uL (150-450); RED BLOOD COUNT 1.94 10^6/uL (3.72-5.28); RED CELL DISTRIBUTION WIDTH 31.6 % (11.5-14.0)
[2019-01-11 19:01] LABS: HEMOGLOBIN 7.6 g/dL (12.0-15.5)
[2019-01-11 19:02] LABS: MEAN CORPUSCULAR VOLUME 111 fl (80-97)
[2019-01-11 19:16] LABS: WHITE BLOOD COUNT 4.3 10^3/uL (4.0-10.5)
[2019-01-12] MEDS: DIPHENHYDRAMINE HCL 50 MG/ML VIAL IV PRN ×3 (00:21→16:33)
[2019-01-12] MEDS: HYDROMORPHONE HCL INJ/PF 2 MG/ML AMPULE IV PRN ×6 (00:22→20:38)
[2019-01-12] MEDS: PROMETHAZINE HCL 25 MG TABLET PO PRN ×3 (04:24→20:38)
[2019-01-12] MEDS: GABAPENTIN 300 MG CAPSULE PO SCH ×3 (05:33→21:52)
[2019-01-12 06:10] LABS: HEMATOCRIT 21.1 % (36.0-47.0); MEAN CORPUSCULAR HEMOGLOBIN 39.7 pg (27.0-33.4); MEAN CORPUSCULAR HGB CONC 36.3 g/dL (32.0-36.0); MEAN CORPUSCULAR VOLUME 109 fl (80-97); PLATELET COUNT 175 10^3/uL (150-450); RED BLOOD COUNT 1.93 10^6/uL (3.72-5.28); RED CELL DISTRIBUTION WIDTH 32.5 % (11.5-14.0)
[2019-01-12 06:17] LABS: ALANINE AMINOTRANSFERASE 49 U/L (9-52); ALBUMIN 3.4 g/dL (3.5-5.0); ALKALINE PHOSPHATASE 128 U/L (38-126); ANION GAP 6 (5-19); ASPARTATE AMINO TRANSFERASE 63 U/L (14-36); BILIRUBIN,DIRECT 0.4 mg/dL (0.0-0.4); BILIRUBIN,TOTAL 2.8 mg/dL (0.2-1.3); BLOOD UREA NITROGEN 7 mg/dL (7-20); CALCIUM 8.1 mg/dL (8.4-10.2); CARBON DIOXIDE 24 mmol/L (22-30); CHLORIDE 110 mmol/L (98-107); GLUCOSE 87 mg/dL (75-110); HEMOGLOBIN 7.6 g/dL (12.0-15.5); POTASSIUM 3.7 mmol/L (3.6-5.0); TOTAL PROTEIN 6.2 g/dL (6.3-8.2)
[2019-01-12 07:41] LABS: ABSOLUTE LYMPHOCYTES# (MANUAL) 1.4 10^3/uL (0.5-4.7); ABSOLUTE MONOCYTES # (MANUAL) 0.2 10^3/uL (0.1-1.4); BASOPHILS % (MANUAL) 0 % (0-2); EOSINOPHILS % (MANUAL) 8 % (0-6); LYMPHOCYTES % (MANUAL) 34 % (13-45); MONOCYTES % (MANUAL) 5 % (3-13); NUCLEATED RED BLOOD CELLS 111 /100 WBC (0); SEGMENTED NEUTROPHILS % (MAN) 53 % (42-78); TOTAL CELLS COUNTED 100
[2019-01-12 07:43] LABS: ANISOCYTOSIS 4+; PLATELET COMMENT ADEQUATE
[2019-01-12 07:44] LABS: OVALOCYTES 1+; POIKILOCYTOSIS 2+; POLYCHROMASIA SLIGHT; TARGET CELLS 2+
[2019-01-12 07:50] LABS: SCHISTOCYTES SLIGHT; SICKLE RED CELLS SLIGHT
[2019-01-12] MEDS: NORMAL SALINE 1000 ML 1,000 ML IV PRN ×3 (08:30→20:38)
--- NOTE | 2019-01-12 08:31 | PDOC PROGRESS REPORT ---
Subjective Progress Note for:: 01/12/19 Subjective:: Patient feeling about the same. She states that she would like to try to walk later today. Her shoulder is still very painful. ROS: No nausea. No itching. Reason For Visit: SCD WITH BONE PAIN CRISIS,HEMOLYTIC CRISIS Physical Exam Vital Signs: Temp Pulse Resp BP Pulse Ox 98.8 F 76 17 107/57 L 100 01/12/19 00:35 01/12/19 00:35 01/12/19 00:35 01/12/19 00:35 01/12/19 00:35 Intake & Output 01/11/19 01/12/19 01/13/19 06:59 06:59 06:59 Intake Total 3186 3198 Balance 3186 3198 Weight 68.1 kg 67.3 kg General appearance: PRESENT: no acute distress, well-developed, well-nourished Head exam: PRESENT: normocephalic Respiratory exam: PRESENT: clear to auscultation carolyn, unlabored Cardiovascular exam: PRESENT: RRR. ABSENT: systolic murmur GI/Abdominal exam: PRESENT: soft. ABSENT: tenderness Extremities exam: ABSENT: pedal edema Neurological exam: PRESENT: alert, awake Psychiatric exam: PRESENT: appropriate affect Skin exam: PRESENT: normal color Results Laboratory Results: 01/12/19 05:36 01/12/19 05:36 01/11/19 01/11/19 01/11/19 05:53 09:08 18:45 WBC 3.6 L 4.3 RBC 1.43 L 1.94 L Hgb 6.0 L 7.6 L Hct 17.1 L 21.5 L MCV 120 H 111 H D MCH 42.2 H 39.0 H MCHC 35.3 35.3 RDW 31.1 H 31.6 H Plt Count 190 188 Seg Neutrophils % Lymphocytes % Monocytes % Eosinophils % Basophils % Absolute Neutrophils Absolute Lymphocytes Absolute Monocytes Absolute Eosinophils Absolute Basophils Sodium Potassium Chloride Carbon Dioxide Anion Gap BUN Creatinine Est GFR ( Amer) Est GFR (Non-Af Amer) Glucose Calcium Total Bilirubin AST ALT Alkaline Phosphatase Total Protein Albumin Blood Type O POSITIVE Antibody Screen NEGATIVE 01/12/19 01/12/19 05:36 05:36 WBC 4.0 RBC 1.93 L Hgb 7.6 L Hct 21.1 L MCV 109 H MCH 39.7 H MCHC 36.3 H RDW 32.5 H Plt Count 175 Seg Neutrophils % Not Reportable Lymphocytes % Not Reportable Monocytes % Not Reportable Eosinophils % Not Reportable Basophils % Not Reportable Absolute Neutrophils Not Reportable Absolute Lymphocytes Not Reportable Absolute Monocytes Not Reportable Absolute Eosinophils Not Reportable Absolute Basophils Not Reportable Sodium 139.7 Potassium 3.7 Chloride 110 H Carbon Dioxide 24 Anion Gap 6 BUN 7 Creatinine 0.49 L Est GFR ( Amer) > 60 Est GFR (Non-Af Amer) > 60 Glucose 87 Calcium 8.1 L Total Bilirubin 2.8 H AST 63 H ALT 49 Alkaline Phosphatase 128 H Total Protein 6.2 L Albumin 3.4 L Blood Type Antibody Screen 12/30/18 12/30/18 12/31/18 18:50 18:50 00:43 Creatine Kinase 22 L 20 L CK-MB (CK-2) < 0.22 Troponin I < 0.012 NT-Pro-B Natriuret Pep 59 12/31/18 12/31/18 12/31/18 00:43 06:22 06:22 Creatine Kinase 24 L CK-MB (CK-2) < 0.22 < 0.22 Troponin I < 0.012 < 0.012 NT-Pro-B Natriuret Pep 12/31/18 12/31/18 12:50 14:10 Creatine Kinase 26 L CK-MB (CK-2) < 0.22 Troponin I < 0.012 NT-Pro-B Natriuret Pep Impressions: Chest X-Ray 12/30/18 17:54 IMPRESSION: NO ACUTE RADIOGRAPHIC FINDING IN THE CHEST. Wrist X-Ray 01/08/19 07:32 IMPRESSION: Minimal degenerative change 1st carpometacarpal joint. Otherwise, normal right wrist. Assessment & Plan - Diagnosis (1) Secondary hemochromatosis Is this a current diagnosis for this admission?: Yes (2) Sickle-cell anemia with crisis Is this a current diagnosis for this admission?: Yes Plan: No changes today. She received 1 unit pRBCs yesterday. Continue fluids, pain management, oxygen.
[2019-01-12] MEDS: HYDROXYUREA 500 MG CAPSULE PO SCH ×3 (09:38→17:35)
[2019-01-12] MEDS: FOLIC ACID 1 MG TABLET PO SCH (09:38)
[2019-01-12] MEDS: OXYCODONE HCL SR 40 MG TABLET PO SCH ×2 (09:38→21:52)
[2019-01-12] MEDS: TRIAMCINOLONE ACETONIDE 0.1% CREAM 15 GM TOP SCH ×2 (09:38→17:35)
[2019-01-12] MEDS: MULTIVITAMIN TABLET PO SCH (09:38)
[2019-01-12] MEDS: [UNRECOGNIZED DRUG - OTHER] SUBCUT SCH ×2 (11:15→11:52)
[2019-01-12] MEDS: DISPOSABLE SUBCUT SCH ×2 (11:15→11:52)
[2019-01-12] MEDS: EPOETIN ALFA EPBX SUBCUT SCH ×2 (11:15→11:52)
--- NOTE | 2019-01-12 17:21 | PDOC PROGRESS REPORT ---
Subjective Progress Note for:: 01/12/19 Subjective:: Patient seen by the bedside she continues to complain of fatigue Reason For Visit: SCD WITH BONE PAIN CRISIS,HEMOLYTIC CRISIS Physical Exam Vital Signs: Temp Pulse Resp BP Pulse Ox 98.8 F 80 18 101/64 100 01/12/19 12:08 01/12/19 12:08 01/12/19 12:08 01/12/19 12:08 01/12/19 12:08 Intake & Output 01/11/19 01/12/19 01/13/19 06:59 06:59 06:59 Intake Total 3186 3198 933 Balance 3186 3198 933 Weight 68.1 kg 67.3 kg General appearance: PRESENT: no acute distress Eye exam: PRESENT: PERRLA Respiratory exam: PRESENT: clear to auscultation carolyn Cardiovascular exam: PRESENT: +S1, +S2 GI/Abdominal exam: PRESENT: soft Neurological exam: PRESENT: alert Results Laboratory Results: 01/12/19 05:36 01/12/19 05:36 01/11/19 01/12/19 01/12/19 18:45 05:36 05:36 WBC 4.3 4.0 RBC 1.94 L 1.93 L Hgb 7.6 L 7.6 L Hct 21.5 L 21.1 L MCV 111 H D 109 H MCH 39.0 H 39.7 H MCHC 35.3 36.3 H RDW 31.6 H 32.5 H Plt Count 188 175 Seg Neutrophils % Not Reportable Lymphocytes % Not Reportable Monocytes % Not Reportable Eosinophils % Not Reportable Basophils % Not Reportable Absolute Neutrophils Not Reportable Absolute Lymphocytes Not Reportable Absolute Monocytes Not Reportable Absolute Eosinophils Not Reportable Absolute Basophils Not Reportable Sodium 139.7 Potassium 3.7 Chloride 110 H Carbon Dioxide 24 Anion Gap 6 BUN 7 Creatinine 0.49 L Est GFR ( Amer) > 60 Est GFR (Non-Af Amer) > 60 Glucose 87 Calcium 8.1 L Total Bilirubin 2.8 H AST 63 H ALT 49 Alkaline Phosphatase 128 H Total Protein 6.2 L Albumin 3.4 L 12/30/18 12/30/18 12/31/18 18:50 18:50 00:43 Creatine Kinase 22 L 20 L CK-MB (CK-2) < 0.22 Troponin I < 0.012 NT-Pro-B Natriuret Pep 59 12/31/18 12/31/18 12/31/18 00:43 06:22 06:22 Creatine Kinase 24 L CK-MB (CK-2) < 0.22 < 0.22 Troponin I < 0.012 < 0.012 NT-Pro-B Natriuret Pep 12/31/18 12/31/18 12:50 14:10 Creatine Kinase 26 L CK-MB (CK-2) < 0.22 Troponin I < 0.012 NT-Pro-B Natriuret Pep Impressions: Chest X-Ray 12/30/18 17:54 IMPRESSION: NO ACUTE RADIOGRAPHIC FINDING IN THE CHEST. Wrist X-Ray 01/08/19 07:32 IMPRESSION: Minimal degenerative change 1st carpometacarpal joint. Otherwise, normal right wrist. Assessment & Plan - Diagnosis (1) Vaso-occlusive sickle cell crisis Is this a current diagnosis for this admission?: Yes (2) Secondary hemochromatosis Is this a current diagnosis for this admission?: Yes (3) Hemolytic anemia Qualifiers: Hemolytic anemia type: other hemoglobinopathy Qualified Code(s): D58.2 - Other hemoglobinopathies Is this a current diagnosis for this admission?: Yes
[2019-01-12] MEDS: RIVAROXABAN 10 MG TABLET PO SCH (17:35)
[2019-01-13] MEDS: HYDROMORPHONE HCL INJ/PF 2 MG/ML AMPULE IV PRN ×6 (00:39→23:35)
[2019-01-13] MEDS: ONDANSETRON HCL INJ/PF 4 MG/2 ML SDV IV PRN (00:39)
[2019-01-13] MEDS: DIPHENHYDRAMINE HCL 50 MG/ML VIAL IV PRN ×3 (00:39→19:29)
[2019-01-13] MEDS: NORMAL SALINE 1000 ML 1,000 ML IV PRN ×4 (04:48→23:35)
[2019-01-13] MEDS: PROMETHAZINE HCL 25 MG TABLET PO PRN ×3 (04:48→23:35)
[2019-01-13 06:39] LABS: HEMATOCRIT 21.6 % (36.0-47.0); MEAN CORPUSCULAR HEMOGLOBIN 39.6 pg (27.0-33.4); MEAN CORPUSCULAR HGB CONC 35.4 g/dL (32.0-36.0); MEAN CORPUSCULAR VOLUME 112 fl (80-97); PLATELET COUNT 164 10^3/uL (150-450); RED BLOOD COUNT 1.93 10^6/uL (3.72-5.28); RED CELL DISTRIBUTION WIDTH 32.9 % (11.5-14.0); WHITE BLOOD COUNT 4.4 10^3/uL (4.0-10.5)
[2019-01-13] MEDS: GABAPENTIN 300 MG CAPSULE PO SCH ×3 (06:59→21:07)
[2019-01-13 07:00] LABS: ANION GAP 7 (5-19); BLOOD UREA NITROGEN 7 mg/dL (7-20); CALCIUM 8.3 mg/dL (8.4-10.2); CARBON DIOXIDE 25 mmol/L (22-30); CHLORIDE 107 mmol/L (98-107); GLUCOSE 112 mg/dL (75-110); POTASSIUM 3.7 mmol/L (3.6-5.0)
[2019-01-13 07:18] LABS: ABSOLUTE LYMPHOCYTES# (MANUAL) 1.4 10^3/uL (0.5-4.7); ABSOLUTE MONOCYTES # (MANUAL) 0.3 10^3/uL (0.1-1.4); BASOPHILS % (MANUAL) 1 % (0-2); EOSINOPHILS % (MANUAL) 5 % (0-6); LYMPHOCYTES % (MANUAL) 31 % (13-45); MONOCYTES % (MANUAL) 6 % (3-13); NUCLEATED RED BLOOD CELLS 70 /100 WBC (0); SEGMENTED NEUTROPHILS % (MAN) 57 % (42-78); TOTAL CELLS COUNTED 100
[2019-01-13 07:22] LABS: ANISOCYTOSIS 4+; BURR CELLS SLIGHT; HOWELL-JOLLY BODIES PRESENT; OVALOCYTES 1+; PLATELET COMMENT ADEQUATE; POIKILOCYTOSIS 1+; POLYCHROMASIA 1+; TARGET CELLS SLIGHT
[2019-01-13 07:25] LABS: HEMOGLOBIN 7.7 g/dL (12.0-15.5)
[2019-01-13] MEDS: TRIAMCINOLONE ACETONIDE 0.1% CREAM 15 GM TOP SCH ×2 (09:48→17:05)
[2019-01-13] MEDS: OXYCODONE HCL SR 40 MG TABLET PO SCH (09:48)
[2019-01-13] MEDS: HYDROXYUREA 500 MG CAPSULE PO SCH ×3 (09:48→17:04)
[2019-01-13] MEDS: MULTIVITAMIN TABLET PO SCH (09:48)
[2019-01-13] MEDS: FOLIC ACID 1 MG TABLET PO SCH (09:48)
--- NOTE | 2019-01-13 12:00 | PDOC PROGRESS REPORT ---
Subjective Progress Note for:: 01/13/19 Subjective:: Pt w/ still a lot of pain, tearful when I saw her, received pain med at 8am but I have ordered extra dose for now Reason For Visit: SCD WITH BONE PAIN CRISIS,HEMOLYTIC CRISIS Physical Exam Vital Signs: Temp Pulse Resp BP Pulse Ox 99.1 F 90 18 99/52 L 97 01/13/19 07:29 01/13/19 07:29 01/13/19 07:29 01/13/19 07:29 01/13/19 07:29 Intake & Output 01/12/19 01/13/19 01/14/19 06:59 06:59 06:59 Intake Total 3198 3821 753 Balance 3198 3821 753 Weight 67.3 kg 67.5 kg General appearance: PRESENT: no acute distress, well-developed, well-nourished Head exam: PRESENT: atraumatic, normocephalic Eye exam: PRESENT: conjunctiva pink, EOMI, PERRLA. ABSENT: scleral icterus Ear exam: PRESENT: normal external ear exam Mouth exam: PRESENT: moist, tongue midline Neck exam: ABSENT: carotid bruit, JVD, lymphadenopathy, thyromegaly Respiratory exam: PRESENT: clear to auscultation carolyn. ABSENT: rales, rhonchi, wheezes Cardiovascular exam: PRESENT: RRR. ABSENT: diastolic murmur, rubs, systolic murmur Pulses: PRESENT: normal dorsalis pedis pul Vascular exam: PRESENT: normal capillary refill GI/Abdominal exam: PRESENT: normal bowel sounds, soft. ABSENT: distended, gu arding, mass, organolmegaly, rebound, tenderness Rectal exam: PRESENT: deferred Extremities exam: PRESENT: full ROM. ABSENT: calf tenderness, clubbing, pedal edema Neurological exam: PRESENT: alert, awake, oriented to person, oriented to place, oriented to time, oriented to situation, CN II-XII grossly intact. ABSENT: mot or sensory deficit Psychiatric exam: PRESENT: appropriate affect, normal mood. ABSENT: homicidal ideation, suicidal ideation Skin exam: PRESENT: dry, intact, warm. ABSENT: cyanosis, rash Results Laboratory Results: 01/13/19 05:31 01/13/19 05:31 01/13/19 01/13/19 05:31 05:31 WBC 4.4 RBC 1.93 L Hgb 7.7 L Hct 21.6 L MCV 112 H MCH 39.6 H MCHC 35.4 RDW 32.9 H Plt Count 164 Seg Neutrophils % Not Reportable Lymphocytes % Not Reportable Monocytes % Not Reportable Eosinophils % Not Reportable Basophils % Not Reportable Absolute Neutrophils Not Reportable Absolute Lymphocytes Not Reportable Absolute Monocytes Not Reportable Absolute Eosinophils Not Reportable Absolute Basophils Not Reportable Sodium 138.9 Potassium 3.7 Chloride 107 Carbon Dioxide 25 Anion Gap 7 BUN 7 Creatinine 0.53 Est GFR ( Amer) > 60 Est GFR (Non-Af Amer) > 60 Glucose 112 H Calcium 8.3 L 12/30/18 12/30/18 12/31/18 18:50 18:50 00:43 Creatine Kinase 22 L 20 L CK-MB (CK-2) < 0.22 Troponin I < 0.012 NT-Pro-B Natriuret Pep 59 12/31/18 12/31/18 12/31/18 00:43 06:22 06:22 Creatine Kinase 24 L CK-MB (CK-2) < 0.22 < 0.22 Troponin I < 0.012 < 0.012 NT-Pro-B Natriuret Pep 12/31/18 12/31/18 12:50 14:10 Creatine Kinase 26 L CK-MB (CK-2) < 0.22 Troponin I < 0.012 NT-Pro-B Natriuret Pep Impressions: Chest X-Ray 12/30/18 17:54 IMPRESSION: NO ACUTE RADIOGRAPHIC FINDING IN THE CHEST. Wrist X-Ray 01/08/19 07:32 IMPRESSION: Minimal degenerative change 1st carpometacarpal joint. Otherwise, normal right wrist. Assessment & Plan - Diagnosis (1) Sickle-cell anemia with crisis Is this a current diagnosis for this admission?: Yes Plan: Still severe, con't supportive measures, give extra dose pain med now (2) Anemia Qualifiers: 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 Qualified Code(s): D58.2 - Other hemoglobinopathies Is this a current diagnosis for this admission?: Yes Plan: Severe, given transfusion w/ minimal benefit. (3) Secondary hemochromatosis Is this a current diagnosis for this admission?: Yes Plan: Plan Rx at outpt - Time Time Spent with patient: 15-24 minutes - Inpatient Certification Based on my medical assessment, after consideration of the patient's comor bidities, presenting symptoms, or acuity I expect that the services needed warrant INPATIENT care.: Yes I certify that my determination is in accordance with my understanding of Medicare's requirements for reasonable and necessary INPATIENT services [42 CFR 412.3e].: Yes Medical Necessity: Need for Pain Control
--- NOTE | 2019-01-13 12:03 | PDOC PROGRESS REPORT ---
Subjective Progress Note for:: 01/13/19 Subjective:: She complain of fatigue, tiredness, malaise Reason For Visit: SCD WITH BONE PAIN CRISIS,HEMOLYTIC CRISIS Physical Exam Vital Signs: Temp Pulse Resp BP Pulse Ox 99.1 F 90 18 99/52 L 97 01/13/19 07:29 01/13/19 07:29 01/13/19 07:29 01/13/19 07:29 01/13/19 07:29 Intake & Output 01/12/19 01/13/19 01/14/19 06:59 06:59 06:59 Intake Total 3198 3821 753 Balance 3198 3821 753 Weight 67.3 kg 67.5 kg General appearance: PRESENT: no acute distress Eye exam: PRESENT: PERRLA Respiratory exam: PRESENT: clear to auscultation carolyn Cardiovascular exam: PRESENT: +S1, +S2 Results Laboratory Results: 01/13/19 05:31 01/13/19 05:31 01/13/19 01/13/19 05:31 05:31 WBC 4.4 RBC 1.93 L Hgb 7.7 L Hct 21.6 L MCV 112 H MCH 39.6 H MCHC 35.4 RDW 32.9 H Plt Count 164 Seg Neutrophils % Not Reportable Lymphocytes % Not Reportable Monocytes % Not Reportable Eosinophils % Not Reportable Basophils % Not Reportable Absolute Neutrophils Not Reportable Absolute Lymphocytes Not Reportable Absolute Monocytes Not Reportable Absolute Eosinophils Not Reportable Absolute Basophils Not Reportable Sodium 138.9 Potassium 3.7 Chloride 107 Carbon Dioxide 25 Anion Gap 7 BUN 7 Creatinine 0.53 Est GFR ( Amer) > 60 Est GFR (Non-Af Amer) > 60 Glucose 112 H Calcium 8.3 L 12/30/18 12/30/18 12/31/18 18:50 18:50 00:43 Creatine Kinase 22 L 20 L CK-MB (CK-2) < 0.22 Troponin I < 0.012 NT-Pro-B Natriuret Pep 59 12/31/18 12/31/18 12/31/18 00:43 06:22 06:22 Creatine Kinase 24 L CK-MB (CK-2) < 0.22 < 0.22 Troponin I < 0.012 < 0.012 NT-Pro-B Natriuret Pep 07/14/19 07/14/19 12:50 14:10 Creatine Kinase 26 L CK-MB (CK-2) < 0.22 Troponin I < 0.012 NT-Pro-B Natriuret Pep Impressions: Chest X-Ray 12/30/18 17:54 IMPRESSION: NO ACUTE RADIOGRAPHIC FINDING IN THE CHEST. Wrist X-Ray 01/08/19 07:32 IMPRESSION: Minimal degenerative change 1st carpometacarpal joint. Otherwise, normal right wrist. Assessment & Plan - Diagnosis (1) Vaso-occlusive sickle cell crisis Is this a current diagnosis for this admission?: Yes (2) Secondary hemochromatosis Is this a current diagnosis for this admission?: Yes (3) Hemolytic anemia Qualifiers: Hemolytic anemia type: other hemoglobinopathy Qualified Code(s): D58.2 - Other hemoglobinopathies Is this a current diagnosis for this admission?: Yes
[2019-01-13] MEDS ORDERED: HYDROMORPHONE HCL INJ/PF 2 MG/ML AMPULE IV ONE (15:00)
[2019-01-13] MEDS: RIVAROXABAN 10 MG TABLET PO SCH (17:04)
[2019-01-14] MEDS: HYDROMORPHONE HCL INJ/PF 2 MG/ML AMPULE IV PRN ×5 (03:36→20:23)
[2019-01-14] MEDS: DIPHENHYDRAMINE HCL 50 MG/ML VIAL IV PRN ×3 (03:36→20:23)
[2019-01-14] MEDS: GABAPENTIN 300 MG CAPSULE PO SCH ×3 (06:13→21:03)
[2019-01-14 06:46] LABS: HEMATOCRIT 21.8 % (36.0-47.0); MEAN CORPUSCULAR HEMOGLOBIN 39.9 pg (27.0-33.4); MEAN CORPUSCULAR VOLUME 114 fl (80-97); PLATELET COUNT 139 10^3/uL (150-450); RED BLOOD COUNT 1.91 10^6/uL (3.72-5.28); RED CELL DISTRIBUTION WIDTH 33.6 % (11.5-14.0)
[2019-01-14 06:55] LABS: ANION GAP 6 (5-19); BLOOD UREA NITROGEN 8 mg/dL (7-20); CALCIUM 8.4 mg/dL (8.4-10.2); CARBON DIOXIDE 26 mmol/L (22-30); CHLORIDE 108 mmol/L (98-107); GLUCOSE 96 mg/dL (75-110)
[2019-01-14 07:09] LABS: HEMOGLOBIN 7.6 g/dL (12.0-15.5)
[2019-01-14 07:15] LABS: ABSOLUTE MONOCYTES # (MANUAL) 0.1 10^3/uL (0.1-1.4); BASOPHILS % (MANUAL) 0 % (0-2); EOSINOPHILS % (MANUAL) 12 % (0-6); LYMPHOCYTES % (MANUAL) 39 % (13-45); MONOCYTES % (MANUAL) 3 % (3-13); NUCLEATED RED BLOOD CELLS 100 /100 WBC (0); SEGMENTED NEUTROPHILS % (MAN) 46 % (42-78); TOTAL CELLS COUNTED 100
[2019-01-14 07:17] LABS: WHITE BLOOD COUNT 3.6 10^3/uL (4.0-10.5)
[2019-01-14 07:21] LABS: ABSOLUTE LYMPHOCYTES# (MANUAL) 1.4 10^3/uL (0.5-4.7); PLATELET COMMENT DECREASED
[2019-01-14 07:22] LABS: ANISOCYTOSIS 4+; BURR CELLS 2+; POIKILOCYTOSIS 1+; POLYCHROMASIA 1+
[2019-01-14 07:23] LABS: HOWELL-JOLLY BODIES PRESENT; SCHISTOCYTES 1+; SICKLE RED CELLS 2+; TARGET CELLS 1+
[2019-01-14] MEDS: PROMETHAZINE HCL 25 MG TABLET PO PRN ×2 (07:43→16:16)
[2019-01-14] MEDS: NORMAL SALINE 1000 ML 1,000 ML IV PRN ×3 (08:20→21:04)
[2019-01-14] MEDS: TRIAMCINOLONE ACETONIDE 0.1% CREAM 15 GM TOP SCH ×2 (09:53→17:00)
[2019-01-14] MEDS: MULTIVITAMIN TABLET PO SCH (09:53)
[2019-01-14] MEDS: HYDROXYUREA 500 MG CAPSULE PO SCH ×3 (09:53→17:00)
[2019-01-14] MEDS: FOLIC ACID 1 MG TABLET PO SCH (09:53)
--- NOTE | 2019-01-14 11:35 | PDOC PROGRESS REPORT ---
Subjective Progress Note for:: 01/14/19 Subjective:: Pain better today, patient has been getting up. Reason For Visit: SCD WITH BONE PAIN CRISIS,HEMOLYTIC CRISIS Physical Exam Vital Signs: Temp Pulse Resp BP Pulse Ox 98.1 F 75 17 102/62 95 01/14/19 08:00 01/14/19 08:00 01/14/19 08:00 01/14/19 08:00 01/14/19 08:00 Intake & Output 01/13/19 01/14/19 01/15/19 06:59 06:59 06:59 Intake Total 3821 4153 1000 Balance 3821 4153 1000 Weight 67.5 kg 68.2 kg General appearance: PRESENT: no acute distress, well-developed, well-nourished Head exam: PRESENT: atraumatic, normocephalic Eye exam: PRESENT: conjunctiva pink, EOMI, PERRLA. ABSENT: scleral icterus Ear exam: PRESENT: normal external ear exam Mouth exam: PRESENT: moist, tongue midline Neck exam: ABSENT: carotid bruit, JVD, lymphadenopathy, thyromegaly Respiratory exam: PRESENT: clear to auscultation carolyn. ABSENT: rales, rhonchi, wheezes Cardiovascular exam: PRESENT: RRR. ABSENT: diastolic murmur, rubs, systolic murmur Pulses: PRESENT: normal dorsalis pedis pul Vascular exam: PRESENT: normal capillary refill GI/Abdominal exam: PRESENT: normal bowel sounds, soft. ABSENT: distended, guarding, mass, organolmegaly, rebound, tenderness Rectal exam: PRESENT: deferred Extremities exam: PRESENT: full ROM. ABSENT: calf tenderness, clubbing, pedal edema Neurological exam: PRESENT: alert, awake, oriented to person, oriented to place, oriented to time, oriented to situation, CN II-XII grossly intact. ABSENT: motor sensory deficit Psychiatric exam: PRESENT: appropriate affect, normal mood. ABSENT: homicidal ideation, suicidal ideation Skin exam: PRESENT: dry, intact, warm. ABSENT: cyanosis, rash Results Laboratory Results: 01/14/19 06:18 01/14/19 06:18 01/14/19 01/14/19 06:18 06:18 WBC 3.6 L RBC 1.91 L Hgb 7.6 L Hct 21.8 L MCV 114 H MCH 39.9 H MCHC 35.0 RDW 33.6 H Plt Count 139 L Seg Neutrophils % Not Reportable Lymphocytes % Not Reportable Monocytes % Not Reportable Eosinophils % Not Reportable Basophils % Not Reportable Absolute Neutrophils Not Reportable Absolute Lymphocytes Not Reportable Absolute Monocytes Not Reportable Absolute Eosinophils Not Reportable Absolute Basophils Not Reportable Sodium 140.0 Potassium 4.0 Chloride 108 H Carbon Dioxide 26 Anion Gap 6 BUN 8 Creatinine 0.48 L Est GFR ( Amer) > 60 Est GFR (Non-Af Amer) > 60 Glucose 96 Calcium 8.4 12/30/18 12/30/18 12/31/18 18:50 18:50 00:43 Creatine Kinase 22 L 20 L CK-MB (CK-2) < 0.22 Troponin I < 0.012 NT-Pro-B Natriuret Pep 59 12/31/18 12/31/18 12/31/18 00:43 06:22 06:22 Creatine Kinase 24 L CK-MB (CK-2) < 0.22 < 0.22 Troponin I < 0.012 < 0.012 NT-Pro-B Natriuret Pep 12/31/18 12/31/18 12:50 14:10 Creatine Kinase 26 L CK-MB (CK-2) < 0.22 Troponin I < 0.012 NT-Pro-B Natriuret Pep Impressions: Chest X-Ray 12/30/18 17:54 IMPRESSION: NO ACUTE RADIOGRAPHIC FINDING IN THE CHEST. Wrist X-Ray 01/08/19 07:32 IMPRESSION: Minimal degenerative change 1st carpometacarpal joint. Otherwise, normal right wrist. Assessment & Plan - Diagnosis (1) Sickle-cell anemia with crisis Is this a current diagnosis for this admission?: Yes Plan: Continue with current supportive measures (2) Anemia Qualifiers: 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 Qualified Code(s): D58.2 - Other hemoglobinopathies Is this a current diagnosis for this admission?: Yes Plan: Hemoglobin stable hold on transfusion (3) Secondary hemochromatosis Is this a current diagnosis for this admission?: Yes Plan: Further treatment as an outpatient
[2019-01-14] MEDS: RIVAROXABAN 10 MG TABLET PO SCH (17:00)
--- NOTE | 2019-01-14 17:11 | PDOC PROGRESS REPORT ---
Subjective Progress Note for:: 01/14/19 Subjective:: Patient is extremely deconditioned what she needs now is physical therapy and rehabilitation, she has Medicaid insurance I do not know that we play out, discharge planning to be consulted for advise Reason For Visit: SCD WITH BONE PAIN CRISIS,HEMOLYTIC CRISIS Physical Exam Vital Signs: Temp Pulse Resp BP Pulse Ox 98.5 F 76 18 101/55 L 97 01/14/19 16:00 01/14/19 16:00 01/14/19 16:00 01/14/19 16:00 01/14/19 16:00 Intake & Output 01/13/19 01/14/19 01/15/19 06:59 06:59 06:59 Intake Total 3821 4153 2560 Balance 3821 4153 2560 Weight 67.5 kg 68.2 kg General appearance: PRESENT: no acute distress Eye exam: PRESENT: PERRLA Respiratory exam: PRESENT: clear to auscultation carolyn Cardiovascular exam: PRESENT: +S1, +S2 GI/Abdominal exam: PRESENT: soft Neurological exam: PRESENT: alert Results Laboratory Results: 01/14/19 06:18 01/14/19 06:18 01/14/19 01/14/19 06:18 06:18 WBC 3.6 L RBC 1.91 L Hgb 7.6 L Hct 21.8 L MCV 114 H MCH 39.9 H MCHC 35.0 RDW 33.6 H Plt Count 139 L Seg Neutrophils % Not Reportable Lymphocytes % Not Reportable Monocytes % Not Reportable Eosinophils % Not Reportable Basophils % Not Reportable Absolute Neutrophils Not Reportable Absolute Lymphocytes Not Reportable Absolute Monocytes Not Reportable Absolute Eosinophils Not Reportable Absolute Basophils Not Reportable Sodium 140.0 Potassium 4.0 Chloride 108 H Carbon Dioxide 26 Anion Gap 6 BUN 8 Creatinine 0.48 L Est GFR ( Amer) > 60 Est GFR (Non-Af Amer) > 60 Glucose 96 Calcium 8.4 12/30/18 12/30/18 12/31/18 18:50 18:50 00:43 Creatine Kinase 22 L 20 L CK-MB (CK-2) < 0.22 Troponin I < 0.012 NT-Pro-B Natriuret Pep 59 12/31/18 12/31/18 12/31/18 00:43 06:22 06:22 Creatine Kinase 24 L CK-MB (CK-2) < 0.22 < 0.22 Troponin I < 0.012 < 0.012 NT-Pro-B Natriuret Pep 12/31/18 12/31/18 12:50 14:10 Creatine Kinase 26 L CK-MB (CK-2) < 0.22 Troponin I < 0.012 NT-Pro-B Natriuret Pep Impressions: Chest X-Ray 12/30/18 17:54 IMPRESSION: NO ACUTE RADIOGRAPHIC FINDING IN THE CHEST. Wrist X-Ray 01/08/19 07:32 IMPRESSION: Minimal degenerative change 1st carpometacarpal joint. Otherwise, normal right wrist. Assessment & Plan - Diagnosis (1) Vaso-occlusive sickle cell crisis Is this a current diagnosis for this admission?: Yes (2) Secondary hemochromatosis Is this a current diagnosis for this admission?: Yes (3) Hemolytic anemia Qualifiers: Hemolytic anemia type: other hemoglobinopathy Qualified Code(s): D58.2 - Other hemoglobinopathies Is this a current diagnosis for this admission?: Yes
[2019-01-15] MEDS: PROMETHAZINE HCL 25 MG TABLET PO PRN (00:23)
[2019-01-15] MEDS: HYDROMORPHONE HCL INJ/PF 2 MG/ML AMPULE IV PRN ×6 (00:23→22:42)
[2019-01-15] MEDS: DIPHENHYDRAMINE HCL 50 MG/ML VIAL IV PRN ×3 (04:54→22:41)
[2019-01-15] MEDS: GABAPENTIN 300 MG CAPSULE PO SCH ×3 (05:00→22:42)
[2019-01-15 06:06] LABS: HEMATOCRIT 23.7 % (36.0-47.0); HEMOGLOBIN 8.3 g/dL (12.0-15.5); MEAN CORPUSCULAR HEMOGLOBIN 40.4 pg (27.0-33.4); MEAN CORPUSCULAR HGB CONC 34.8 g/dL (32.0-36.0); MEAN CORPUSCULAR VOLUME 116 fl (80-97); PLATELET COUNT 150 10^3/uL (150-450); RED BLOOD COUNT 2.05 10^6/uL (3.72-5.28); RED CELL DISTRIBUTION WIDTH 33.6 % (11.5-14.0)
[2019-01-15 06:25] LABS: ANION GAP 7 (5-19); BLOOD UREA NITROGEN 6 mg/dL (7-20); CALCIUM 8.9 mg/dL (8.4-10.2); CARBON DIOXIDE 27 mmol/L (22-30); CHLORIDE 107 mmol/L (98-107); GLUCOSE 101 mg/dL (75-110); POTASSIUM 3.8 mmol/L (3.6-5.0)
[2019-01-15 06:28] LABS: WHITE BLOOD COUNT 3.7 10^3/uL (4.0-10.5)
[2019-01-15 06:29] LABS: ABSOLUTE LYMPHOCYTES# (MANUAL) 1.6 10^3/uL (0.5-4.7); ABSOLUTE MONOCYTES # (MANUAL) 0.4 10^3/uL (0.1-1.4); BASOPHILS % (MANUAL) 0 % (0-2); EOSINOPHILS % (MANUAL) 6 % (0-6); LYMPHOCYTES % (MANUAL) 43 % (13-45); MONOCYTES % (MANUAL) 10 % (3-13); NUCLEATED RED BLOOD CELLS 75 /100 WBC (0); PLATELET COMMENT ADEQUATE; SEGMENTED NEUTROPHILS % (MAN) 41 % (42-78); TOTAL CELLS COUNTED 100
[2019-01-15 06:39] LABS: ANISOCYTOSIS 4+; POIKILOCYTOSIS 2+; POLYCHROMASIA 1+
[2019-01-15 06:40] LABS: BURR CELLS SLIGHT; HOWELL-JOLLY BODIES PRESENT; SCHISTOCYTES SLIGHT; SICKLE RED CELLS 1+; TARGET CELLS 2+
--- NOTE | 2019-01-15 08:26 | PDOC PROGRESS REPORT ---
Subjective Progress Note for:: 01/15/19 Subjective:: Feeling better today, encouraged ambulation Reason For Visit: SCD WITH BONE PAIN CRISIS,HEMOLYTIC CRISIS Physical Exam Vital Signs: Temp Pulse Resp BP Pulse Ox 98.5 F 84 17 104/66 98 01/14/19 20:08 01/14/19 20:08 01/14/19 20:08 01/14/19 20:08 01/14/19 20:08 Intake & Output 01/14/19 01/15/19 01/16/19 06:59 06:59 06:59 Intake Total 4153 4240 Balance 4153 4240 Weight 68.2 kg 68 kg General appearance: PRESENT: no acute distress, well-developed, well-nourished Head exam: PRESENT: atraumatic, normocephalic Eye exam: PRESENT: conjunctiva pink, EOMI, PERRLA. ABSENT: scleral icterus Ear exam: PRESENT: normal external ear exam Mouth exam: PRESENT: moist, tongue midline Neck exam: ABSENT: carotid bruit, JVD, lymphadenopathy, thyromegaly Respiratory exam: PRESENT: clear to auscultation carolyn. ABSENT: rales, rhonchi, wheezes Cardiovascular exam: PRESENT: RRR. ABSENT: diastolic murmur, rubs, systolic murmur Pulses: PRESENT: normal dorsalis pedis pul Vascular exam: PRESENT: normal capillary refill GI/Abdominal exam: PRESENT: normal bowel sounds, soft. ABSENT: distended, guarding, mass, organolmegaly, rebound, tenderness Rectal exam: PRESENT: deferred Extremities exam: PRESENT: full ROM. ABSENT: calf tenderness, clubbing, pedal edema Neurological exam: PRESENT: alert, awake, oriented to person, oriented to place, oriented to time, oriented to situation, CN II-XII grossly intact. ABSENT: motor sensory deficit Psychiatric exam: PRESENT: appropriate affect, normal mood. ABSENT: homicidal ideation, suicidal ideation Skin exam: PRESENT: dry, intact, warm. ABSENT: cyanosis, rash Results Laboratory Results: 01/15/19 05:01 01/15/19 05:01 01/15/19 01/15/19 05:01 05:01 WBC 3.7 L RBC 2.05 L Hgb 8.3 L Hct 23.7 L MCV 116 H MCH 40.4 H MCHC 34.8 RDW 33.6 H Plt Count 150 Seg Neutrophils % Not Reportable Lymphocytes % Not Reportable Monocytes % Not Reportable Eosinophils % Not Reportable Basophils % Not Reportable Absolute Neutrophils Not Reportable Absolute Lymphocytes Not Reportable Absolute Monocytes Not Reportable Absolute Eosinophils Not Reportable Absolute Basophils Not Reportable Sodium 141.2 Potassium 3.8 Chloride 107 Carbon Dioxide 27 Anion Gap 7 BUN 6 L Creatinine 0.46 L Est GFR ( Amer) > 60 Est GFR (Non-Af Amer) > 60 Glucose 101 Calcium 8.9 12/30/18 12/30/18 12/31/18 18:50 18:50 00:43 Creatine Kinase 22 L 20 L CK-MB (CK-2) < 0.22 Troponin I < 0.012 NT-Pro-B Natriuret Pep 59 12/31/18 12/31/18 12/31/18 00:43 06:22 06:22 Creatine Kinase 24 L CK-MB (CK-2) < 0.22 < 0.22 Troponin I < 0.012 < 0.012 NT-Pro-B Natriuret Pep 12/31/18 12/31/18 12:50 14:10 Creatine Kinase 26 L CK-MB (CK-2) < 0.22 Troponin I < 0.012 NT-Pro-B Natriuret Pep Impressions: Chest X-Ray 12/30/18 17:54 IMPRESSION: NO ACUTE RADIOGRAPHIC FINDING IN THE CHEST. Wrist X-Ray 01/08/19 07:32 IMPRESSION: Minimal degenerative change 1st carpometacarpal joint. Otherwise, normal right wrist. Assessment & Plan - Diagnosis (1) Sickle-cell anemia with crisis Is this a current diagnosis for this admission?: Yes Plan: improving, cont current management (2) Anemia Qualifiers: 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 Qualified Code(s): D58.2 - Other hemoglobinopathies Is this a current diagnosis for this admission?: Yes Plan: stable (3) Secondary hemochromatosis Is this a current diagnosis for this admission?: Yes Plan: rx as outpt
[2019-01-15] MEDS: TRIAMCINOLONE ACETONIDE 0.1% CREAM 15 GM TOP SCH ×2 (09:57→18:26)
[2019-01-15] MEDS: FOLIC ACID 1 MG TABLET PO SCH (09:59)
[2019-01-15] MEDS: HYDROXYUREA 500 MG CAPSULE PO SCH ×3 (09:59→18:25)
[2019-01-15] MEDS: MULTIVITAMIN TABLET PO SCH (09:59)
[2019-01-15] MEDS: NORMAL SALINE 1000 ML 1,000 ML IV PRN ×3 (10:01→22:42)
[2019-01-15] MEDS: RIVAROXABAN 10 MG TABLET PO SCH (18:26)
--- NOTE | 2019-01-15 19:15 | PDOC PROGRESS REPORT ---
Subjective Progress Note for:: 01/15/19 Subjective:: Patient seen by the bedside, she is very deconditioned, she will need rehabilitation and PT Reason For Visit: SCD WITH BONE PAIN CRISIS,HEMOLYTIC CRISIS Physical Exam Vital Signs: Temp Pulse Resp BP Pulse Ox 99.6 F 80 16 108/68 99 01/15/19 16:21 01/15/19 16:21 01/15/19 16:21 01/15/19 16:21 01/15/19 16:21 Intake & Output 01/14/19 01/15/19 01/16/19 06:59 06:59 06:59 Intake Total 4153 4240 1610 Balance 4153 4240 1610 Weight 68.2 kg 68 kg General appearance: PRESENT: no acute distress Eye exam: PRESENT: PERRLA Respiratory exam: PRESENT: clear to auscultation carolyn Cardiovascular exam: PRESENT: +S1, +S2 Neurological exam: PRESENT: alert Results Laboratory Results: 01/15/19 05:01 01/15/19 05:01 01/15/19 01/15/19 05:01 05:01 WBC 3.7 L RBC 2.05 L Hgb 8.3 L Hct 23.7 L MCV 116 H MCH 40.4 H MCHC 34.8 RDW 33.6 H Plt Count 150 Seg Neutrophils % Not Reportable Lymphocytes % Not Reportable Monocytes % Not Reportable Eosinophils % Not Reportable Basophils % Not Reportable Absolute Neutrophils Not Reportable Absolute Lymphocytes Not Reportable Absolute Monocytes Not Reportable Absolute Eosinophils Not Reportable Absolute Basophils Not Reportable Sodium 141.2 Potassium 3.8 Chloride 107 Carbon Dioxide 27 Anion Gap 7 BUN 6 L Creatinine 0.46 L Est GFR ( Amer) > 60 Est GFR (Non-Af Amer) > 60 Glucose 101 Calcium 8.9 12/30/18 12/30/18 12/31/18 18:50 18:50 00:43 Creatine Kinase 22 L 20 L CK-MB (CK-2) < 0.22 Troponin I < 0.012 NT-Pro-B Natriuret Pep 59 12/31/18 12/31/18 12/31/18 00:43 06:22 06:22 Creatine Kinase 24 L CK-MB (CK-2) < 0.22 < 0.22 Troponin I < 0.012 < 0.012 NT-Pro-B Natriuret Pep 12/31/18 12/31/18 12:50 14:10 Creatine Kinase 26 L CK-MB (CK-2) < 0.22 Troponin I < 0.012 NT-Pro-B Natriuret Pep Impressions: Chest X-Ray 12/30/18 17:54 IMPRESSION: NO ACUTE RADIOGRAPHIC FINDING IN THE CHEST. Wrist X-Ray 01/08/19 07:32 IMPRESSION: Minimal degenerative change 1st carpometacarpal joint. Otherwise, normal right wrist. Assessment & Plan - Diagnosis (1) Vaso-occlusive sickle cell crisis Is this a current diagnosis for this admission?: Yes (2) Secondary hemochromatosis Is this a current diagnosis for this admission?: Yes (3) Hemolytic anemia Qualifiers: Hemolytic anemia type: other hemoglobinopathy Qualified Code(s): D58.2 - Other hemoglobinopathies Is this a current diagnosis for this admission?: Yes
[2019-01-16] MEDS: HYDROMORPHONE HCL INJ/PF 2 MG/ML AMPULE IV PRN ×6 (02:42→22:56)
[2019-01-16] MEDS: DIPHENHYDRAMINE HCL 50 MG/ML VIAL IV PRN ×3 (06:44→22:57)
[2019-01-16] MEDS: NORMAL SALINE 1000 ML 1,000 ML IV PRN ×3 (06:44→21:15)
[2019-01-16] MEDS: GABAPENTIN 300 MG CAPSULE PO SCH ×3 (06:44→22:28)
--- NOTE | 2019-01-16 08:17 | PDOC PROGRESS REPORT ---
Subjective Progress Note for:: 01/16/19 Subjective:: Patient states no significant changes. However, she would like to try to go home this week. She states that they stopped giving her the OxyContin about 3 days ago. She is not sure why. She is also having dysuria. Reason For Visit: SCD WITH BONE PAIN CRISIS,HEMOLYTIC CRISIS Physical Exam Vital Signs: Temp Pulse Resp BP Pulse Ox 98.7 F 74 16 105/67 99 01/15/19 23:21 01/15/19 23:21 01/15/19 23:21 01/15/19 23:21 01/15/19 23:21 Intake & Output 01/15/19 01/16/19 01/17/19 06:59 06:59 06:59 Intake Total 4240 4648 Balance 4240 4648 Weight 68 kg 67.8 kg General appearance: PRESENT: well-developed, well-nourished Head exam: PRESENT: normocephalic Eye exam: PRESENT: EOMI Respiratory exam: PRESENT: unlabored Extremities exam: ABSENT: pedal edema Neurological exam: PRESENT: alert, awake Psychiatric exam: PRESENT: appropriate affect Skin exam: PRESENT: normal color Results Laboratory Results: 01/15/19 05:01 01/15/19 05:01 12/30/18 12/30/18 12/31/18 18:50 18:50 00:43 Creatine Kinase 22 L 20 L CK-MB (CK-2) < 0.22 Troponin I < 0.012 NT-Pro-B Natriuret Pep 59 12/31/18 12/31/18 12/31/18 00:43 06:22 06:22 Creatine Kinase 24 L CK-MB (CK-2) < 0.22 < 0.22 Troponin I < 0.012 < 0.012 NT-Pro-B Natriuret Pep 12/31/18 12/31/18 12:50 14:10 Creatine Kinase 26 L CK-MB (CK-2) < 0.22 Troponin I < 0.012 NT-Pro-B Natriuret Pep Impressions: Chest X-Ray 12/30/18 17:54 IMPRESSION: NO ACUTE RADIOGRAPHIC FINDING IN THE CHEST. Wrist X-Ray 01/08/19 07:32 IMPRESSION: Minimal degenerative change 1st carpometacarpal joint. Otherwise, normal right wrist. Assessment & Plan - Diagnosis (1) Secondary hemochromatosis Is this a current diagnosis for this admission?: Yes Plan: Trying to obtain [facility] as outpatient. (2) Sickle-cell anemia with crisis Is this a current diagnosis for this admission?: Yes Plan: Will restart her long-acting narcotics, as this "fell off" her MAR after 7 days, and no one was notified. (3) Dysuria Is this a current diagnosis for this admission?: Yes Plan: Check urinalysis and culture.
[2019-01-16] MEDS: TRIAMCINOLONE ACETONIDE 0.1% CREAM 15 GM TOP SCH ×2 (10:40→18:02)
[2019-01-16] MEDS: MULTIVITAMIN TABLET PO SCH (10:41)
[2019-01-16] MEDS: OXYCODONE HCL SR 40 MG TABLET PO SCH ×2 (10:41→22:28)
[2019-01-16] MEDS: FOLIC ACID 1 MG TABLET PO SCH (10:41)
[2019-01-16] MEDS: HYDROXYUREA 500 MG CAPSULE PO SCH ×3 (12:13→18:02)
[2019-01-16] MEDS: RIVAROXABAN 10 MG TABLET PO SCH (18:02)
[2019-01-16 18:35] LABS: APPEARANCE,URINE CLEAR; BILIRUBIN,URINE NEGATIVE (NEGATIVE); COLOR,URINE YELLOW; GLUCOSE, URINE NEGATIVE (NEGATIVE); KETONES,URINE NEGATIVE (NEGATIVE); LEUKOCYTE ESTERASE,URINE TRACE (NEGATIVE); NITRITE,URINE NEGATIVE (NEGATIVE); PROTEIN,URINE NEGATIVE (NEGATIVE); URINE SPECIFIC GRAVITY 1.009
--- NOTE | 2019-01-16 21:43 | PDOC PROGRESS REPORT ---
Subjective Progress Note for:: 01/16/19 Subjective:: She is advised to get more exercise, she has Medicaid she cannot get into a facility for rehabilitation, she needs to work with PT hopefully discharge in a day or 2 Reason For Visit: SCD WITH BONE PAIN CRISIS,HEMOLYTIC CRISIS Physical Exam Vital Signs: Temp Pulse Resp BP Pulse Ox 99.0 F 80 17 101/64 99 01/16/19 20:00 01/16/19 20:00 01/16/19 20:00 01/16/19 20:00 01/16/19 20:00 Intake & Output 01/15/19 01/16/19 01/17/19 06:59 06:59 06:59 Intake Total 4240 4648 2190 Balance 4240 4648 2190 Weight 68 kg 67.8 kg General appearance: PRESENT: no acute distress Respiratory exam: PRESENT: clear to auscultation carolyn Cardiovascular exam: PRESENT: +S1, +S2 GI/Abdominal exam: PRESENT: soft Results Laboratory Results: 01/15/19 05:01 01/15/19 05:01 01/16/19 17:50 Urine Color YELLOW Urine Appearance CLEAR Urine pH 6.0 Ur Specific [place] 1.009 Urine Protein NEGATIVE Urine Glucose (UA) NEGATIVE Urine Ketones NEGATIVE Urine Blood SMALL H Urine Nitrite NEGATIVE Ur Leukocyte Esterase TRACE H Urine WBC (Auto) 1 Urine RBC (Auto) 1 12/30/18 12/30/18 12/31/18 18:50 18:50 00:43 Creatine Kinase 22 L 20 L CK-MB (CK-2) < 0.22 Troponin I < 0.012 NT-Pro-B Natriuret Pep 59 12/31/18 12/31/18 12/31/18 00:43 06:22 06:22 Creatine Kinase 24 L CK-MB (CK-2) < 0.22 < 0.22 Troponin I < 0.012 < 0.012 NT-Pro-B Natriuret Pep 12/31/18 12/31/18 12:50 14:10 Creatine Kinase 26 L CK-MB (CK-2) < 0.22 Troponin I < 0.012 NT-Pro-B Natriuret Pep Impressions: Chest X-Ray 12/30/18 17:54 IMPRESSION: NO ACUTE RADIOGRAPHIC FINDING IN THE CHEST. Wrist X-Ray 01/08/19 07:32 IMPRESSION: Minimal degenerative change 1st carpometacarpal joint. Otherwise, normal right wrist. Assessment & Plan - Diagnosis (1) Vaso-occlusive sickle cell crisis Is this a current diagnosis for this admission?: Yes (2) Secondary hemochromatosis Is this a current diagnosis for this admission?: Yes (3) Hemolytic anemia Qualifiers: Hemolytic anemia type: other hemoglobinopathy Qualified Code(s): D58.2 - Other hemoglobinopathies Is this a current diagnosis for this admission?: Yes
[2019-01-17] MEDS: HYDROMORPHONE HCL INJ/PF 2 MG/ML AMPULE IV PRN ×5 (02:56→19:59)
[2019-01-17] MEDS: NORMAL SALINE 1000 ML 1,000 ML IV PRN ×3 (04:08→17:23)
[2019-01-17] MEDS: DIPHENHYDRAMINE HCL 50 MG/ML VIAL IV PRN ×2 (06:47→15:27)
[2019-01-17] MEDS: GABAPENTIN 300 MG CAPSULE PO SCH ×3 (06:49→21:49)
--- NOTE | 2019-01-17 08:42 | PDOC PROGRESS REPORT ---
Subjective Progress Note for:: 01/17/19 Subjective:: Patient doing better, energy level is getting better, pain is getting better Reason For Visit: SCD WITH BONE PAIN CRISIS,HEMOLYTIC CRISIS Physical Exam Vital Signs: Temp Pulse Resp BP Pulse Ox 98.8 F 78 16 104/62 98 01/17/19 00:00 01/17/19 00:00 01/17/19 00:00 01/17/19 00:00 01/17/19 00:00 Intake & Output 01/16/19 01/17/19 01/18/19 06:59 06:59 06:59 Intake Total 4648 3910 Balance 4648 3910 Weight 67.8 kg 68.7 kg General appearance: PRESENT: no acute distress, well-developed, well-nourished Head exam: PRESENT: atraumatic, normocephalic Eye exam: PRESENT: conjunctiva pink, EOMI, PERRLA. ABSENT: scleral icterus Ear exam: PRESENT: normal external ear exam Mouth exam: PRESENT: moist, tongue midline Neck exam: ABSENT: carotid bruit, JVD, lymphadenopathy, thyromegaly Respiratory exam: PRESENT: clear to auscultation carolyn. ABSENT: rales, rhonchi, wheezes Cardiovascular exam: PRESENT: RRR. ABSENT: diastolic murmur, rubs, systolic murmur Pulses: PRESENT: normal dorsalis pedis pul Vascular exam: PRESENT: normal capillary refill GI/Abdominal exam: PRESENT: normal bowel sounds, soft. ABSENT: distended, guarding, mass, organolmegaly, rebound, tenderness Rectal exam: PRESENT: deferred Extremities exam: PRESENT: full ROM. ABSENT: calf tenderness, clubbing, pedal edema Neurological exam: PRESENT: alert, awake, oriented to person, oriented to place, oriented to time, oriented to situation, CN II-XII grossly intact. ABSENT: motor sensory deficit Psychiatric exam: PRESENT: appropriate affect, normal mood. ABSENT: homicidal ideation, suicidal ideation Skin exam: PRESENT: dry, intact, warm. ABSENT: cyanosis, rash Results Laboratory Results: 01/15/19 05:01 01/15/19 05:01 01/16/19 17:50 Urine Color YELLOW Urine Appearance CLEAR Urine pH 6.0 Ur Specific [place] 1.009 Urine Protein NEGATIVE Urine Glucose (UA) NEGATIVE Urine Ketones NEGATIVE Urine Blood SMALL H Urine Nitrite NEGATIVE Ur Leukocyte Esterase TRACE H Urine WBC (Auto) 1 Urine RBC (Auto) 1 12/30/18 12/30/18 12/31/18 18:50 18:50 00:43 Creatine Kinase 22 L 20 L CK-MB (CK-2) < 0.22 Troponin I < 0.012 NT-Pro-B Natriuret Pep 59 12/31/18 12/31/18 12/31/18 00:43 06:22 06:22 Creatine Kinase 24 L CK-MB (CK-2) < 0.22 < 0.22 Troponin I < 0.012 < 0.012 NT-Pro-B Natriuret Pep 12/31/18 12/31/18 12:50 14:10 Creatine Kinase 26 L CK-MB (CK-2) < 0.22 Troponin I < 0.012 NT-Pro-B Natriuret Pep Impressions: Chest X-Ray 12/30/18 17:54 IMPRESSION: NO ACUTE RADIOGRAPHIC FINDING IN THE CHEST. Wrist X-Ray 01/08/19 07:32 IMPRESSION: Minimal degenerative change 1st carpometacarpal joint. Otherwise, normal right wrist. Assessment & Plan - Diagnosis (1) Sickle-cell anemia with crisis Is this a current diagnosis for this admission?: Yes Plan: Continue supportive care, patient will walk more today and see if she is doing better. (2) Anemia Qualifiers: 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 Qualified Code(s): D58.2 - Other hemoglobinopathies Is this a current diagnosis for this admission?: Yes Plan: Hemoglobin stable (3) Secondary hemochromatosis Is this a current diagnosis for this admission?: Yes Plan: Treatment as outpatient
[2019-01-17] MEDS: OXYCODONE HCL SR 40 MG TABLET PO SCH ×2 (10:38→21:49)
[2019-01-17] MEDS: MULTIVITAMIN TABLET PO SCH (10:38)
[2019-01-17] MEDS: HYDROXYUREA 500 MG CAPSULE PO SCH ×3 (10:38→18:04)
[2019-01-17] MEDS: FOLIC ACID 1 MG TABLET PO SCH (10:38)
[2019-01-17] MEDS: TRIAMCINOLONE ACETONIDE 0.1% CREAM 15 GM TOP SCH ×2 (10:43→18:04)
--- NOTE | 2019-01-17 16:08 | PDOC PROGRESS REPORT ---
Subjective Progress Note for:: 01/17/19 Subjective:: She is advised to get more exercise, she has Medicaid she cannot get into a facility for rehabilitation, she needs to work with PT hopefully discharge in a day or 2 Reason For Visit: SCD WITH BONE PAIN CRISIS,HEMOLYTIC CRISIS Physical Exam Vital Signs: Temp Pulse Resp BP Pulse Ox 98.7 F 78 16 115/71 96 01/17/19 12:00 01/17/19 12:00 01/17/19 12:00 01/17/19 12:00 01/17/19 12:00 Intake & Output 01/16/19 01/17/19 01/18/19 06:59 06:59 06:59 Intake Total 4648 3910 1815 Balance 4648 3910 1815 Weight 67.8 kg 68.7 kg General appearance: PRESENT: no acute distress Eye exam: PRESENT: PERRLA Respiratory exam: PRESENT: clear to auscultation carolyn Cardiovascular exam: PRESENT: +S1, +S2 Results Laboratory Results: 01/15/19 05:01 01/15/19 05:01 01/16/19 17:50 Urine Color YELLOW Urine Appearance CLEAR Urine pH 6.0 Ur Specific [place] 1.009 Urine Protein NEGATIVE Urine Glucose (UA) NEGATIVE Urine Ketones NEGATIVE Urine Blood SMALL H Urine Nitrite NEGATIVE Ur Leukocyte Esterase TRACE H Urine WBC (Auto) 1 Urine RBC (Auto) 1 12/30/18 12/30/18 12/31/18 18:50 18:50 00:43 Creatine Kinase 22 L 20 L CK-MB (CK-2) < 0.22 Troponin I < 0.012 NT-Pro-B Natriuret Pep 59 12/31/18 12/31/18 12/31/18 00:43 06:22 06:22 Creatine Kinase 24 L CK-MB (CK-2) < 0.22 < 0.22 Troponin I < 0.012 < 0.012 NT-Pro-B Natriuret Pep 12/31/18 12/31/18 12:50 14:10 Creatine Kinase 26 L CK-MB (CK-2) < 0.22 Troponin I < 0.012 NT-Pro-B Natriuret Pep Impressions: Chest X-Ray 12/30/18 17:54 IMPRESSION: NO ACUTE RADIOGRAPHIC FINDING IN THE CHEST. Wrist X-Ray 01/08/19 07:32 IMPRESSION: Minimal degenerative change 1st carpometacarpal joint. Otherwise, normal right wrist. Assessment & Plan - Diagnosis (1) Vaso-occlusive sickle cell crisis Is this a current diagnosis for this admission?: Yes (2) Secondary hemochromatosis Is this a current diagnosis for this admission?: Yes (3) Hemolytic anemia Qualifiers: Hemolytic anemia type: other hemoglobinopathy Qualified Code(s): D58.2 - Other hemoglobinopathies Is this a current diagnosis for this admission?: Yes
[2019-01-17] MEDS: RIVAROXABAN 10 MG TABLET PO SCH (18:04)
[2019-01-18] MEDS: DIPHENHYDRAMINE HCL 50 MG/ML VIAL IV PRN ×3 (00:06→16:41)
[2019-01-18] MEDS: NORMAL SALINE 1000 ML 1,000 ML IV PRN ×3 (00:07→14:07)
[2019-01-18] MEDS: HYDROMORPHONE HCL INJ/PF 2 MG/ML AMPULE IV PRN ×6 (00:07→20:44)
[2019-01-18] MEDS: GABAPENTIN 300 MG CAPSULE PO SCH ×3 (06:52→22:09)
--- NOTE | 2019-01-18 07:55 | PDOC PROGRESS REPORT ---
Subjective Progress Note for:: 01/18/19 Subjective:: Patient states that she is starting to be able to walk around better. She is anxious to go home. She is still having pain in her arms and shoulders. Her long-acting narcotic has been restarted and this is helping. Reason For Visit: SCD WITH BONE PAIN CRISIS,HEMOLYTIC CRISIS Physical Exam Vital Signs: Temp Pulse Resp BP Pulse Ox 99.1 F 83 17 101/64 97 01/17/19 19:36 01/17/19 19:36 01/17/19 19:36 01/17/19 19:36 01/17/19 19:36 Intake & Output 01/17/19 01/18/19 01/19/19 06:59 06:59 06:59 Intake Total 3910 5915 Output Total 900 Balance 3910 5015 Weight 68.7 kg 67.5 kg General appearance: PRESENT: well-developed, well-nourished Head exam: PRESENT: normocephalic Respiratory exam: PRESENT: unlabored Neurological exam: PRESENT: alert, awake Psychiatric exam: PRESENT: appropriate affect Skin exam: PRESENT: normal color Results Laboratory Results: 01/15/19 05:01 01/15/19 05:01 12/30/18 12/30/18 12/31/18 18:50 18:50 00:43 Creatine Kinase 22 L 20 L CK-MB (CK-2) < 0.22 Troponin I < 0.012 NT-Pro-B Natriuret Pep 59 12/31/18 12/31/18 12/31/18 00:43 06:22 06:22 Creatine Kinase 24 L CK-MB (CK-2) < 0.22 < 0.22 Troponin I < 0.012 < 0.012 NT-Pro-B Natriuret Pep 12/31/18 12/31/18 12:50 14:10 Creatine Kinase 26 L CK-MB (CK-2) < 0.22 Troponin I < 0.012 NT-Pro-B Natriuret Pep Impressions: Chest X-Ray 12/30/18 17:54 IMPRESSION: NO ACUTE RADIOGRAPHIC FINDING IN THE CHEST. Wrist X-Ray 01/08/19 07:32 IMPRESSION: Minimal degenerative change 1st carpometacarpal joint. Otherwise, normal right wrist. Assessment & Plan - Diagnosis (1) Secondary hemochromatosis Is this a current diagnosis for this admission?: Yes (2) Sickle-cell anemia with crisis Is this a current diagnosis for this admission?: Yes (3) Dysuria Is this a current diagnosis for this admission?: Yes - Plan Summary Plan Summary: No changes today. I will sign off. Please call again if needed. Rx for her narcotics have been left in her chart for discharge. I will see her again in about 2 weeks as outpatient.
[2019-01-18] MEDS: OXYCODONE HCL SR 40 MG TABLET PO SCH ×2 (10:43→22:09)
[2019-01-18] MEDS: HYDROXYUREA 500 MG CAPSULE PO SCH ×3 (10:43→18:09)
[2019-01-18] MEDS: FOLIC ACID 1 MG TABLET PO SCH (10:43)
[2019-01-18] MEDS: MULTIVITAMIN TABLET PO SCH (10:43)
[2019-01-18] MEDS: TRIAMCINOLONE ACETONIDE 0.1% CREAM 15 GM TOP SCH ×2 (10:45→18:10)
[2019-01-18] MEDS: RIVAROXABAN 10 MG TABLET PO SCH (18:09)
--- NOTE | 2019-01-18 20:16 | PDOC PROGRESS REPORT ---
Subjective Progress Note for:: 01/18/19 Subjective:: Patient seen by the bedside, she will be discharge home in a.m. Reason For Visit: SCD WITH BONE PAIN CRISIS,HEMOLYTIC CRISIS Physical Exam Vital Signs: Temp Pulse Resp BP Pulse Ox 98.9 F 81 16 113/71 96 01/18/19 11:16 01/18/19 11:16 01/18/19 11:16 01/18/19 11:16 01/18/19 11:16 Intake & Output 01/17/19 01/18/19 01/19/19 06:59 06:59 06:59 Intake Total 3910 5915 1960 Output Total 900 Balance 3910 5015 1960 Weight 68.7 kg 67.5 kg General appearance: PRESENT: no acute distress Eye exam: PRESENT: PERRLA Respiratory exam: PRESENT: clear to auscultation carolyn Cardiovascular exam: PRESENT: +S1, +S2 GI/Abdominal exam: PRESENT: soft Neurological exam: PRESENT: alert Results Laboratory Results: 01/15/19 05:01 01/15/19 05:01 01/16/19 17:50 Clean Catch Midstream Urine Culture - Final Mixed Urogenital [place] 12/30/18 12/30/18 12/31/18 18:50 18:50 00:43 Creatine Kinase 22 L 20 L CK-MB (CK-2) < 0.22 Troponin I < 0.012 NT-Pro-B Natriuret Pep 59 12/31/18 12/31/18 12/31/18 00:43 06:22 06:22 Creatine Kinase 24 L CK-MB (CK-2) < 0.22 < 0.22 Troponin I < 0.012 < 0.012 NT-Pro-B Natriuret Pep 12/31/18 12/31/18 12:50 14:10 Creatine Kinase 26 L CK-MB (CK-2) < 0.22 Troponin I < 0.012 NT-Pro-B Natriuret Pep Impressions: Chest X-Ray 12/30/18 17:54 IMPRESSION: NO ACUTE RADIOGRAPHIC FINDING IN THE CHEST. Wrist X-Ray 01/08/19 07:32 IMPRESSION: Minimal degenerative change 1st carpometacarpal joint. Otherwise, normal right wrist. Assessment & Plan - Diagnosis (1) Vaso-occlusive sickle cell crisis Is this a current diagnosis for this admission?: Yes (2) Secondary hemochromatosis Is this a current diagnosis for this admission?: Yes (3) Hemolytic anemia Qualifiers: Hemolytic anemia type: other hemoglobinopathy Qualified Code(s): D58.2 - Other hemoglobinopathies Is this a current diagnosis for this admission?: Yes
[2019-01-19] MEDS: HYDROMORPHONE HCL INJ/PF 2 MG/ML AMPULE IV PRN ×5 (00:46→18:17)
[2019-01-19] MEDS: DIPHENHYDRAMINE HCL 50 MG/ML VIAL IV PRN ×3 (00:47→18:17)
[2019-01-19] MEDS: NORMAL SALINE 1000 ML 1,000 ML IV PRN ×2 (03:05→09:16)
[2019-01-19] MEDS: GABAPENTIN 300 MG CAPSULE PO SCH ×2 (05:06→13:49)
[2019-01-19] MEDS: FOLIC ACID 1 MG TABLET PO SCH (09:06)
[2019-01-19] MEDS: MULTIVITAMIN TABLET PO SCH (09:06)
[2019-01-19] MEDS: HYDROXYUREA 500 MG CAPSULE PO SCH ×3 (09:06→17:22)
[2019-01-19] MEDS: TRIAMCINOLONE ACETONIDE 0.1% CREAM 15 GM TOP SCH ×2 (09:06→18:19)
[2019-01-19] MEDS ORDERED: DISPOSABLE SUBCUT SCH (10:00)
[2019-01-19] MEDS ORDERED: [UNRECOGNIZED DRUG - OTHER] SUBCUT SCH (10:00)
[2019-01-19] MEDS ORDERED: EPOETIN ALFA EPBX SUBCUT SCH (10:00)
[2019-01-19] MEDS: OXYCODONE HCL SR 40 MG TABLET PO SCH (10:55)
[2019-01-19] MEDS: DISPOSABLE SUBCUT SCH (10:57)
[2019-01-19] MEDS: EPOETIN ALFA EPBX SUBCUT SCH (10:57)
[2019-01-19] MEDS: [UNRECOGNIZED DRUG - OTHER] SUBCUT SCH (10:57)
[2019-01-19] MEDS: RIVAROXABAN 10 MG TABLET PO SCH (17:22)
[2019-01-19 18:29] VITALS: BP 103/65
--- NOTE | 2019-01-20 14:18 | PDOC DISCHARGE SUMMARY ---
General - Admit/Disc Date/PCP Admission Date/Primary Care Provider: 12/30/18 21:46 HOMA BARRAZA MD Discharge Date: 01/19/19 - Discharge Diagnosis (1) Vaso-occlusive sickle cell crisis Is this a current diagnosis for this admission?: Yes (2) Secondary hemochromatosis Is this a current diagnosis for this admission?: Yes (3) Hemolytic anemia Is this a current diagnosis for this admission?: Yes - Additional Information Discharge Diet: As Tolerated, Regular Discharge Activity: Activity As Tolerated, Balance Activity w/Rest, Slowly Increase Activity Home Medications: Epoetin Federico [Procrit Inj 40,000 Unit/1 ml Vial (Renal)] 60,000 unit SQ FR 11/20/18 Folic Acid [Folvite 1 mg Tablet] 1 mg PO DAILY 11/20/18 Gabapentin [Neurontin 300 mg Capsule] 300 mg PO Q8 11/20/18 Hydroxyurea [Hydrea 500 mg Capsule] 500 mg PO TID 11/20/18 Multivitamin [Multiple Vitamins] 1 tab PO DAILY 11/20/18 Oxycodone HCl [Oxycodone HCl 10 MG Tablet] 10 mg PO Q6HP PRN 11/20/18 Oxycodone HCl [Oxycontin] 30 mg PO Q12 11/20/18 Promethazine HCl [Phenergan 25 mg Tablet] 25 mg PO Q6HP PRN 11/20/18 Rivaroxaban [Xarelto] 20 mg PO QPM 11/20/18 Sulfamethoxazole/Trimethoprim [Bactrim Ds Tablet] 1 each PO BID #20 tablet 12/27/18 Triamcinolone Acetonide [Aristocort 0.1% Cream] 1 applic TP BID #1 tub 12/27/18 History of Present Illness History of Present Illness: WILLIE ALAN is a 48 year old female, She has a history of sickle cell disease, she came to the emergency room for evaluation of generalized body pains. 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, The ferritin is 3250, the percentage saturation of the transferrin is 80% Hospital Course Hospital Course: Patient was admitted for the management of vaso-occlusive crisis with pain involving extremities on the torso. She was seen in consultation by logistics technician Dr. Viveros, she was managed with intravenous pain medication, hydration with fluid Physical Exam Vital Signs: Temp Pulse Resp BP Pulse Ox 99.0 F 80 18 112/65 98 01/19/19 16:40 01/19/19 16:40 01/19/19 16:40 01/19/19 16:40 01/19/19 16:40 Intake & Output 01/19/19 01/20/19 01/21/19 06:59 06:59 06:59 Intake Total 3966 2527 Balance 3966 2527 Weight 64.8 kg Results Laboratory Results: 01/15/19 05:01 01/15/19 05:01 12/30/18 12/30/18 12/31/18 18:50 18:50 00:43 Creatine Kinase 22 L 20 L CK-MB (CK-2) < 0.22 Troponin I < 0.012 NT-Pro-B Natriuret Pep 59 12/31/18 12/31/18 12/31/18 00:43 06:22 06:22 Creatine Kinase 24 L CK-MB (CK-2) < 0.22 < 0.22 Troponin I < 0.012 < 0.012 NT-Pro-B Natriuret Pep 12/31/18 12/31/18 12:50 14:10 Creatine Kinase 26 L CK-MB (CK-2) < 0.22 Troponin I < 0.012 NT-Pro-B Natriuret Pep Impressions: Chest X-Ray 12/30/18 17:54 IMPRESSION: NO ACUTE RADIOGRAPHIC FINDING IN THE CHEST. Wrist X-Ray 01/08/19 07:32 IMPRESSION: Minimal degenerative change 1st carpometacarpal joint. Otherwise, normal right wrist.
== END 2019-01-19 18:53 | disposition home or self-care (01) | DRG 812 ==
LOC: ER 17:11 → EH 21:46 → 4N 23:19
PROVIDERS: ADMIT Internal Medicine; ATTEND Internal Medicine
PROC: 30233N1 Transfusion of Nonautologous Red Blood Cells into Peripheral Vein, Percutaneous Approach (ICD-10-PCS; principal; 2019-01-11)
DX: D57.00 Hb-SS disease with crisis, unspecified (principal); R01.1 Cardiac murmur, unspecified; E83.118 Other hemochromatosis; Z86.14 Personal history of Methicillin resistant Staphylococcus aureus infection; Z79.891 Long term (current) use of opiate analgesic
CPT/HCPCS: 36415; 36430; 36591; 71046; 80048; 80053; 80076; 80307; 81001; 82140; 82150; 82550; 82553; 82607; 82728; 82746; 83036; 83540; 83550; 83615; 83690; 83735; 83880; 84100; 84439; 84443; 84484; 84703; 85025; 85045; 85610; 85730; 86850; 86900; 86901; 86920; 87040; 87070; 87086; 87205; 93005; 93010; 96361; 96374; 96375; 96376; 99285; J1170; J1200; J1642; J2405; J3411; J3475; J3480; J3490; J7030; P9016; Q5106

== ENCOUNTER 2019-02-11 16:24 | Emergency (ER) | payer MEDICAID ==
--- NOTE | 2019-02-11 16:45 | ER Document Report ---
ED Medical Screen (RME) - General Chief Complaint: Sickle Cell Crisis Stated Complaint: VOMITING/FEVER Time Seen by Provider: 02/11/19 16:41 Primary Care Provider: HOMA BARRAZA MD [Primary Care Provider] - Follow up as needed Mode of Arrival: Wheelchair Information source: Patient Notes: 49-year-old female presented to ED for complaint of body especially to her legs arms and back. She states this is where she always gets pain when she has a sickle cell crisis. She has a history of sickle cell anemia, cholecystectomy, splenectomy, appendectomy, tonsillectomy, bilateral tubal ligation knee surgery and . The knee surgery was due to an infection not to a broken bone. Patient is alert oriented respirations regular and unlabored in no acute dis tress at this moment. I have greeted and performed a rapid initial assessment of this patient. A comprehensive ED assessment and evaluation of the patient, analysis of test results and completion of medical decision making process will be conducted by an additional ED providers. TRAVEL OUTSIDE OF THE [place] IN LAST 30 DAYS: No - Related Data Allergies/Adverse Reactions: doxycycline [Doxycycline] Allergy (Severe, Verified 12/30/18 17:12) Past Medical History - Social History Frequency of alcohol use: None Drug Abuse: None - Past Medical History Cardiac Medical History: Reports: Hx Heart Murmur Denies: Hx Atrial Fibrillation, Hx Congestive Heart Failure, Hx Coronary Artery Disease, Hx Heart Attack, Hx Hypercholesterolemia, Hx Hypertension, Hx Peripheral Vascular Disease Pulmonary Medical History: Denies: Hx Tuberculosis Neurological Medical History: Denies: Hx Seizures Renal/ Medical History: Reports: Hx Ovarian Cysts. 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 Denies: Hx HIV Past Surgical History: Reports: Hx Appendectomy, Hx Section, Hx Cholecystectomy, Hx Orthopedic Surgery - R knee, Hx Tonsillectomy. Denies: Hx Bowel Surgery, Hx Coronary Artery Bypass Graft, Hx Gastric Bypass Surgery, Hx Herniorrhaphy, Hx Mastectomy, Hx Pacemaker, Hx Tubal Ligation - Immunizations Immunizations up to date: Yes Hx Diphtheria, Pertussis, Tetanus Vaccination: Yes History of Influenza Vaccine for 03/2017 - 08/2017 Season: No Physical Exam - Vital signs Vitals: Temp Pulse Resp BP Pulse Ox 99.0 F 83 24 H 102/51 L 97 02/11/19 16:28 02/11/19 16:28 02/11/19 16:28 02/11/19 16:28 02/11/19 16:28 Course - Vital Signs Vital signs: Temp Pulse Resp BP Pulse Ox 99.0 F 83 24 H 102/51 L 97 02/11/19 16:28 02/11/19 16:28 02/11/19 16:28 02/11/19 16:28 02/11/19 16:28 Doctor's Discharge - Discharge Referrals: HOMA BARRAZA MD [Primary Care Provider] - Follow up as needed
[2019-02-11] MEDS ORDERED: HYDROMORPHONE HCL INJ/PF 2 MG/ML AMPULE IV ONE ×3 (16:49→21:06)
[2019-02-11] MEDS ORDERED: NORMAL SALINE 1000 ML 1,000 ML IV ONE ×2 (16:50→18:47)
[2019-02-11 17:46] LABS: ABSOLUTE RETICS # 0.119 10^6/uL (0.028-0.122); HEMATOCRIT 25.8 % (36.0-47.0); MEAN CORPUSCULAR HEMOGLOBIN 41.4 pg (27.0-33.4); MEAN CORPUSCULAR HGB CONC 34.9 g/dL (32.0-36.0); MEAN CORPUSCULAR VOLUME 119 fl (80-97); PLATELET COUNT 277 10^3/uL (150-450); RED BLOOD COUNT 2.18 10^6/uL (3.72-5.28); RED CELL DISTRIBUTION WIDTH 31.3 % (11.5-14.0); RETICULOCYTE COUNT (AUTO) 5.45 % (0.66-2.85); WHITE BLOOD COUNT 4.7 10^3/uL (4.0-10.5)
[2019-02-11 17:56] LABS: ALBUMIN 4.6 g/dL (3.5-5.0); ALKALINE PHOSPHATASE 165 U/L (38-126); ANION GAP 10 (5-19); ASPARTATE AMINO TRANSFERASE 55 U/L (14-36); BILIRUBIN,DIRECT 0.7 mg/dL (0.0-0.4); BILIRUBIN,TOTAL 3.2 mg/dL (0.2-1.3); BLOOD UREA NITROGEN 7 mg/dL (7-20); CALCIUM 9.4 mg/dL (8.4-10.2); CARBON DIOXIDE 24 mmol/L (22-30); CHLORIDE 103 mmol/L (98-107); GLUCOSE 108 mg/dL (75-110); TOTAL PROTEIN 7.8 g/dL (6.3-8.2)
[2019-02-11 18:12] LABS: ABSOLUTE LYMPHOCYTES# (MANUAL) 0.6 10^3/uL (0.5-4.7); ABSOLUTE MONOCYTES # (MANUAL) 0.1 10^3/uL (0.1-1.4); ANISOCYTOSIS 4+; BASOPHILS % (MANUAL) 0 % (0-2); EOSINOPHILS % (MANUAL) 0 % (0-6); LYMPHOCYTES % (MANUAL) 13 % (13-45); MONOCYTES % (MANUAL) 2 % (3-13); NUCLEATED RED BLOOD CELLS 60 /100 WBC (0); OVALOCYTES SLIGHT; POIKILOCYTOSIS 2+; POLYCHROMASIA SLIGHT; SEGMENTED NEUTROPHILS % (MAN) 85 % (42-78); TOTAL CELLS COUNTED 100
[2019-02-11 18:13] LABS: PLATELET COMMENT ADEQUATE; SICKLE RED CELLS 1+; TARGET CELLS SLIGHT
[2019-02-11] MEDS ORDERED: METOCLOPRAMIDE HCL INJ/PF 10 MG/2 ML SDV IV ONE (18:46)
[2019-02-11] MEDS ORDERED: DIPHENHYDRAMINE HCL 50 MG/ML VIAL IV ONE (18:47)
--- NOTE | 2019-02-11 18:51 | ER Document Report ---
ED General - General Chief Complaint: Sickle Cell Crisis Stated Complaint: VOMITING/FEVER Time Seen by Provider: 02/11/19 16:41 Primary Care Provider: HOMA BARRAZA MD [Primary Care Provider] - Follow up tomorrow Mode of Arrival: Wheelchair Information source: Patient, [facility] Records Notes: 49-year-old female with sickle cell disease, degenerative disc disease, chronic back pain presents with complaint of nausea, vomiting, diarrhea, abdominal pain and myalgia that started 2 days prior to arrival. Patient also reports a fever of 102 at home. Patient's myalgias are typical of her sickle cell flare and are located in her legs, arms and back. Patient's abdominal pain is generalized described as a cramping pain. Patient's last episode of diarrhea and vomiting more this morning. She denies any black or bloody stools. She denies any chest pain, shortness of breath, cough, sick contacts. Patient did receive IV fluids and Dilaudid prior to my exam but states that she is still in significant pain. Patient takes p.o. Dilaudid at home for her sickle cell flares. TRAVEL OUTSIDE OF THE [place] IN LAST 30 DAYS: No - HPI Onset: Other Onset/Duration: Gradual, Persistent Quality of pain: Cramping Severity: Moderate Associated symptoms: Body/muscle aches, Diarrhea, Fever, Nausea, Vomiting. den ies: Chest pain, Nonproductive cough, Productive cough, Headache, Shortness of breath, Weakness Exacerbated by: Denies Relieved by: Denies Similar symptoms previously: Yes Recently seen / treated by doctor: Yes - Related Data Allergies/Adverse Reactions: doxycycline [Doxycycline] Allergy (Severe, Verified 12/30/18 17:12) Past Medical History - General Information source: Patient - Social History Smoking Status: Never Smoker Frequency of alcohol use: None Drug Abuse: None Lives with: Family Family History: Reviewed & Not Pertinent Patient has suicidal ideation: No Patient has homicidal ideation: No - Past Medical History Cardiac Medical History: Reports: Hx Heart Murmur Denies: Hx Atrial Fibrillation, Hx Congestive Heart Failure, Hx Coronary Artery Disease, Hx Heart Attack, Hx Hypercholesterolemia, Hx Hypertension, Hx Peripheral Vascular Disease Pulmonary Medical History: Denies: Hx Tuberculosis Neurological Medical History: Denies: Hx Seizures Renal/ Medical History: Reports: Hx Ovarian Cysts. 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 Denies: Hx HIV Past Surgical History: Reports: Hx Appendectomy, Hx Section, Hx Cholecystectomy, Hx Orthopedic Surgery - R knee, Hx Tonsillectomy. Denies: Hx Bowel Surgery, Hx Coronary Artery Bypass Graft, Hx Gastric Bypass Surgery, Hx Herniorrhaphy, Hx Mastectomy, Hx Pacemaker, Hx Tubal Ligation - Immunizations Immunizations up to date: Yes Hx Diphtheria, Pertussis, Tetanus Vaccination: Yes Hx Pneumococcal Vaccination: 03/20/14 Review of Systems - Review of Systems Notes: REVIEW OF SYSTEMS: CONSTITUTIONAL : + fever, +chills, denies sweats. Denies recent illness. Denies weight loss, recent hospitalizations. EENT: Denies visual changes, eye pain. Denies sore throat, oral lesions, difficulty swallowing. CARDIOVASCULAR: Denies chest pain. Denies palpitations. Denies lower extremity edema. RESPIRATORY: Denies cough. Denies shortness of breath, wheezing. GASTROINTESTINAL: Denies abdominal distention. + nausea, vomiting, or diarrhea. Denies blood in vomitus, stools, or per rectum. Denies black, tarry stools. Denies constipation. GENITOURINARY: Denies difficulty urinating, painful urination, frequency, blood in urine, or vaginal discharge. MUSCULOSKELETAL: Denies neck pain or stiffness. Denies joint pain or swelling. SKIN: Denies rash, lesions or sores. HEMATOLOGIC : Denies easy bruising or bleeding. LYMPHATIC: Denies swollen glands. NEUROLOGICAL: Denies confusion or altered mental status. Denies loss of consciousness. Denies dizziness or lightheadedness. Denies headache. Denies weakness or paralysis. Denies problems difficulty with ambulation, slurred speech. Denies sensory loss, numbness, or tingling. Denies seizures. PSYCHIATRIC: Denies anxiety or stress. Denies depression, suicidal ideation, or homicidal ideation. Denies visual or auditory hallucinations. Physical Exam - Vital signs Vitals: Temp Pulse Resp BP Pulse Ox 99.0 F 83 24 H 102/51 L 97 02/11/19 16:28 02/11/19 16:28 02/11/19 16:28 02/11/19 16:28 02/11/19 16:28 - Notes Notes: PHYSICAL EXAMINATION: GENERAL: Well-appearing, well-nourished and in no acute distress. HEAD: Atraumatic, normocephalic. EYES: Pupils equal round and reactive to light, extraocular movements intact, conjunctiva are normal. ENT: Nares patent, oropharynx clear without exudates. Moist mucous membranes. NECK: Normal range of motion, supple without lymphadenopathy LUNGS: Breath sounds clear to auscultation bilaterally and equal. No wheezes rales or rhonchi. HEART: Regular rate and rhythm without murmurs ABDOMEN: Soft, nontender, nondistended abdomen. No guarding, no rebound. No masses appreciated. Female : deferred Musculoskeletal: Normal range of motion, no pitting or edema. No cyanosis. NEUROLOGICAL: Cranial nerves grossly intact. Normal speech, normal gait. Normal sensory, motor exams PSYCH: Normal mood, normal affect. SKIN: Warm, Dry, normal turgor, no rashes or lesions noted. Course - Re-evaluation Re-evalutation: Temp Pulse Resp BP Pulse Ox 100.1 F 83 24 H 102/51 L 97 02/11/19 17:30 02/11/19 16:28 02/11/19 16:28 02/11/19 16:28 02/11/19 16:28 Laboratory 02/11/19 02/11/19 02/11/19 17:25 17:25 17:25 WBC 4.7 RBC 2.18 L Hgb 9.0 L Hct 25.8 L MCV 119 H MCH 41.4 H MCHC 34.9 RDW 31.3 H Plt Count 277 Lymph % (Auto) Not Reportable Mercer % (Auto) Not Reportable Eos % (Auto) Not Reportable Baso % (Auto) Not Reportable Reticulocyte # 0.119 Absolute Neuts (auto) Not Reportable Absolute Lymphs (auto) Not Reportable Absolute Monos (auto) Not Reportable Absolute Eos (auto) Not Reportable Absolute Basos (auto) Not Reportable Total Counted 100 Seg Neutrophils % Not Reportable Seg Neuts % (Manual) 85 H Lymphocytes % (Manual) 13 Monocytes % (Manual) 2 L Eosinophils % (Manual) 0 Basophils % (Manual) 0 Abs Neuts (Manual) 4.0 Abs Lymphs (Manual) 0.6 Abs Monocytes (Manual) 0.1 Absolute Eos (Manual) 0.0 Abs Basophils (Manual) 0.0 Nucleated RBCs 60 Platelet Comment ADEQUATE Polychromasia SLIGHT Poikilocytosis 2+ Anisocytosis 4+ Macrocytosis 3+ Sickle Cells 1+ Target Cells SLIGHT Ovalocytes SLIGHT Retic Count (auto) 5.45 H Sodium 137.4 Potassium 4.0 Chloride 103 Carbon Dioxide 24 Anion Gap 10 BUN 7 Creatinine 0.64 Est GFR ( Amer) > 60 Est GFR (MDRD) Non-Af > 60 Glucose 108 Calcium 9.4 Total Bilirubin 3.2 H Direct Bilirubin 0.7 H Neonat Total Bilirubin Not Reportable Neonat Direct Bilirubin Not Reportable Neonat Indirect Bili Not Reportable AST 55 H ALT 29 Alkaline Phosphatase 165 H Total Protein 7.8 Albumin 4.6 Lipase 49.5 Temp Pulse Resp BP Pulse Ox 100.1 F 83 23 H 101/64 96 02/11/19 19:38 02/11/19 16:28 02/11/19 19:01 02/11/19 19:01 02/11/19 19:01 02/11/19 18:51 History-2 days of myalgias, nausea, vomiting, diarrhea. Patient evaluated. Vital signs were reviewed. Patient is febrile, hypotensive. Previous medical records and nursing notes reviewed. Patient does not appear toxic or dehydrated they are in no acute distress Exam Findings: Benign physical exam Lab Findings: CBC is without leukocytosis, does show a stable anemia which is the patient's baseline. CMP is without electrolyte abnormalities, shows normal LFTs and renal function. Lipase within normal limits. CXR: May reflect pneumonitis but patient has no productive cough, shortness of breath, tachypnea, tachycardia. She is in no respiratory distress Patient Interventions/Monitor: IV fluids, Dilaudid, Zofran, Reglan, Benadryl, fentanyl. On reevaluation patient states that she does not feel well enough to go home. Patient has had no episodes of vomiting or diarrhea during her ED course. Fever has resolved. I did touch base with the patient's primary care physician Dr. Barraza in route reviewed the patient's physical exam, vital signs and labs. He states that he will see the patient first thing in the morning. Patient is agreeable to this. Patient will be discharged home with Vishal. Revaluation: Patient reports mild improvement of her pain and nausea. MDM: Presentation of an overall well-appearing patient in no acute distress with complaints of nausea, vomiting, diarrhea. This is consistent with likely viral gastroenteritis. Patient has no abdominal tenderness on exam and specifically no tenderness in the RLQ, LLQ, RUQ. Overall well hydrated on exam. Able to tolerate oral intake here in the emergency department. Low clinical suspicion for any acute life-threatening etiology based on exam and history including acute cholecystitis, SBO, appendicitis, nephrolithiasis, or pylonephritis. CMP without evidence of acute hepatitis or significant dehydration. Will plan for discharge at this time with return precautions and followup recommendations. Patient was evaluated and treated as appropriate for the patient's presenting symptoms and complaint, with consideration of any critical or life threatening conditions that may be associated with their obtained history and exam as noted above. All results were discussed with patient and patient's primary care physician. Patient provided the opportunity to ask questions, and express concerns. Patient was educated on treatments based on their presumed diagnosis as noted above. At this time we will discharge the patient with return precautions and follow-up recommendations. Verbal discharge instructions given a the bedside. Medication warnings reviewed. Patient is in agreement with this plan and has verbalized understanding of return precautions. After careful consideration I feel that that patient can be safely discharged from the emergency department, they were advised to followup with a primary care physician in 2-3 days. Dictation on this chart was performed using voice recognition software and may result in unintended grammatical, spelling, syntax or errors. 02/11/19 23:14 - Vital Signs Vital signs: Temp Pulse Resp BP Pulse Ox 99 F 83 21 H 113/71 93 02/12/19 00:00 02/11/19 16:28 02/12/19 00:00 02/11/19 23:00 02/12/19 00:00 - Laboratory Result Diagrams: 02/11/19 17:25 02/11/19 17:25 Laboratory results interpreted by me: 02/11/19 02/11/19 02/11/19 17:25 17:25 19:33 RBC 2.18 L Hgb 9.0 L Hct 25.8 L MCV 119 H MCH 41.4 H RDW 31.3 H Seg Neuts % (Manual) 85 H Monocytes % (Manual) 2 L Retic Count (auto) 5.45 H Total Bilirubin 3.2 H Direct Bilirubin 0.7 H AST 55 H Alkaline Phosphatase 165 H Urine Ketones TRACE H Urine Blood SMALL H Urine Urobilinogen 2.0 H Ur Leukocyte Esterase TRACE H - Diagnostic Test Radiology reviewed: Image reviewed, Reports reviewed Discharge - Discharge Clinical Impression: Myalgia, History of sickle cell disease, Nausea vomiting and diarrhea, Chronic pain syndrome Fever Qualifiers: Fever type: unspecified Qualified Code(s): R50.9 - Fever, unspecified Condition: Good Disposition: HOME, SELF-CARE Instructions: Antinausea Medication ([facility]), Diarrhea, Nonspecific ([facility]), Fever ([facility]), Intravenous (IV) Fluids ([facility]), Vomiting ([facility]) Additional Instructions: Your symptoms are likely due to a viral illness and should resolve in the next several days. You can take [id number] loperamide also known as Imodium as needed for diarrhea per box instructions. Continue to stay hydrated with plenty of solution such as Gatorade or Pedialyte. You are being prescribed Zofran to take as needed for nausea and vomiting. Please return if you develop severe abdominal pain, pass out, become unable to tolerate any oral fluids for 12 more hours, or any other symptoms that are concerning to you. Prescriptions: Famotidine [Pepcid 40 mg Tablet] 40 mg PO DAILY 10 Days #10 tablet Ondansetron [Zofran Odt 4 mg Tablet] 1 - 2 tab PO Q4H PRN #15 tab.rapdis PRN Reason: For Nausea/Vomiting Referrals: HOMA BARRAZA MD [Primary Care Provider] - Follow up tomorrow
[2019-02-11 19:48] LABS: APPEARANCE,URINE CLEAR; BILIRUBIN,URINE NEGATIVE (NEGATIVE); COLOR,URINE YELLOW; GLUCOSE, URINE NEGATIVE (NEGATIVE); KETONES,URINE TRACE mg/dL (NEGATIVE); LEUKOCYTE ESTERASE,URINE TRACE (NEGATIVE); NITRITE,URINE NEGATIVE (NEGATIVE); PROTEIN,URINE NEGATIVE (NEGATIVE); URINE SPECIFIC GRAVITY 1.008
[2019-02-11] MEDS ORDERED: ACETAMINOPHEN 325 MG TABLET PO ONE (21:14)
[2019-02-11] MEDS ORDERED: IBUPROFEN 600 MG TABLET PO ONE (21:14)
[2019-02-11] MEDS ORDERED: ONDANSETRON HCL INJ/PF 4 MG/2 ML SDV IV ONE (22:18)
[2019-02-11] MEDS ORDERED: FAMOTIDINE INJ/PF 20 MG/2 ML SDV IV ONE (22:19)
[2019-02-11] MEDS ORDERED: LOPERAMIDE HCL 2 MG CAPSULE PO ONE (22:19)
--- NOTE | 2019-02-11 22:26 | RADIOLOGY REPORT (SQ) ---
EXAM DESCRIPTION: XR CHEST 2 VIEWS COMPLETED DATE/TME: 02/11/2019 21:29 CLINICAL HISTORY: 49 years, Female, fever sickle cell COMPARISON: 12/30/2018 chest NUMBER OF VIEWS: 2 TECHNIQUE: 2 view chest LIMITATIONS: None. FINDINGS: Heart size is stable. Elzydv-z-Huch catheter in place. No pneumothorax. Slightly coarsened interstitial changes bilaterally, unchanged. Some equivocal retrocardiac airspace opacity. Osteopenia. IMPRESSION: Equivocal retrocardiac airspace opacity may reflect pneumonitis. copyright 2010 [employer]- All Rights Reserved
[2019-02-11] MEDS ORDERED: FENTANYL CITRATE INJ/PF 100 MCG/2 ML AMPUL IV ONE (23:08)
[2019-02-11] MEDS ORDERED: ONDANSETRON ODT 4 MG TAB (6 TAB/ER DISP) PO PRN (23:16)
[2019-02-11 23:42] VITALS: BP 113/71
== END 2019-02-12 00:13 | disposition home or self-care (01) ==
LOC: ER 16:24
DX: M79.10 Myalgia, unspecified site (principal); R11.2 Nausea with vomiting, unspecified; R19.7 Diarrhea, unspecified; G89.4 Chronic pain syndrome; R50.9 Fever, unspecified; D57.1 Sickle-cell disease without crisis; Z86.14 Personal history of Methicillin resistant Staphylococcus aureus infection
CPT/HCPCS: 36415; 83690; 85025; 85045; 80053; 81001; 71046; J3490 ×3; J1200; J3010; J2765; J1170; J2405; J7030; S0028; 96361; 96374; 96375; 96376; 99284

== ENCOUNTER 2019-02-14 18:14 | Inpatient (IN) | payer MEDICAID ==
[2019-02-14] MEDS ORDERED: NORMAL SALINE 1000 ML 1,000 ML IV ONE ×2 (18:48→20:53)
[2019-02-14] MEDS ORDERED: ONDANSETRON HCL INJ/PF 4 MG/2 ML SDV IV ONE (18:49)
--- NOTE | 2019-02-14 18:51 | ER Document Report ---
ED Medical Screen (RME) - General Chief Complaint: Vomiting Stated Complaint: VOMITNG Time Seen by Provider: 02/14/19 18:44 Primary Care Provider: HOMA BARRAZA MD [Primary Care Provider] - Follow up as needed Mode of Arrival: Wheelchair Information source: Patient Notes: This 49-year-old female with sickle cell disease presents emergency department today with complaints of nausea vomiting diarrhea since Tuesday. Also complains of generalized abdominal pain. She was evaluated in the emergency department on Tuesday. Still reports having same symptoms does not feel good. She reports she contacted her provider Dr. Viveros and was told to come the emergency department. She reports Dr. Rawls would like to be contacted. I have greeted and performed a rapid initial assessment of this patient. A comprehensive ED assessment and evaluation of the patient, analysis of test results and completion of the medical decision making process will be conducted by additional ED providers. Dictation of this chart was performed using voice recognition software; therefore, there may be some unintended grammatical errors. TRAVEL OUTSIDE OF THE [place] IN LAST 30 DAYS: No - Related Data Allergies/Adverse Reactions: doxycycline [Doxycycline] Allergy (Severe, Verified 02/14/19 18:16) Past Medical History - Social History Frequency of alcohol use: None Drug Abuse: None - Past Medical History Cardiac Medical History: Reports: Hx Heart Murmur Denies: Hx Atrial Fibrillation, Hx Congestive Heart Failure, Hx Coronary Artery Disease, Hx Heart Attack, Hx Hypercholesterolemia, Hx Hypertension, Hx Peripheral Vascular Disease Pulmonary Medical History: Denies: Hx Tuberculosis Neurological Medical History: Denies: Hx Seizures Renal/ Medical History: Reports: Hx Ovarian Cysts. 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 Denies: Hx HIV Past Surgical History: Reports: Hx Appendectomy, Hx Section, Hx Cholecystectomy, Hx Orthopedic Surgery - R knee, Hx Tonsillectomy. Denies: Hx Bowel Surgery, Hx Coronary Artery Bypass Graft, Hx Gastric Bypass Surgery, Hx Herniorrhaphy, Hx Mastectomy, Hx Pacemaker, Hx Tubal Ligation - Immunizations Immunizations up to date: Yes Hx Diphtheria, Pertussis, Tetanus Vaccination: Yes History of Influenza Vaccine for 03/2017 - 08/2017 Season: No Physical Exam - Vital signs Vitals: Temp Pulse Resp BP Pulse Ox 99.2 F 81 18 101/59 L 98 02/14/19 18:30 02/14/19 18:30 02/14/19 18:30 02/14/19 18:30 02/14/19 18:30 Course - Vital Signs Vital signs: Temp Pulse Resp BP Pulse Ox 99.2 F 81 18 101/59 L 98 02/14/19 18:30 02/14/19 18:30 02/14/19 18:30 02/14/19 18:30 02/14/19 18:30 Doctor's Discharge - Discharge Referrals: HOMA BARRAZA MD [Primary Care Provider] - Follow up as needed
[2019-02-14] MEDS ORDERED: HYDROMORPHONE HCL INJ/PF 2 MG/ML AMPULE IV ONE ×2 (19:25→22:02)
--- NOTE | 2019-02-14 19:30 | ER Document Report ---
ED General - General Chief Complaint: Vomiting Stated Complaint: VOMITNG Time Seen by Provider: 02/14/19 18:44 Primary Care Provider: HOMA BARRAZA MD [Primary Care Provider] - Follow up as needed Mode of Arrival: Wheelchair TRAVEL OUTSIDE OF THE [place] IN LAST 30 DAYS: No - HPI Notes: Patient is a 49-year-old female that presents to the emergency department for chief complaint of nausea vomiting and diarrhea. Patient states for the last 5 days she has had multiple episodes of vomiting and diarrhea. She states today she has had 4 episodes of emesis and 6 episodes of loose stools. She states the stools are dark black. Patient has not taken her Xarelto in 5 days because she has been vomiting all of her medications up. Patient also reports diffuse abdominal cramping and pain. She usually takes Dilaudid for her sickle cell pain but has been unable to keep medications down. She denies any new symptoms today compared to her presentation on February 11 but states the symptoms are not getting any better. Patient did contact Dr. Viveros today and discussed her presentation, Dr. Leon recommended coming to the emergency room. Patient has not followed with Dr. Barraza in the office. Past Medical History: Sickle cell anemia Past Surgical History: Cholecystectomy, appendectomy, , tonsillectomy Social History: Denies drugs alcohol and tobacco use Family History: Reviewed and noncontributory for presenting illness Allergies: Reviewed, see documented allergy list. REVIEW OF SYSTEMS: CONSTITUTIONAL : No fever No chills No diaphoresis No recent illness EENT: No vision changes No congestion No sore throat CARDIOVASCULAR: No chest pain No palpitations RESPIRATORY: No shortness of breath No cough No difficulty breathing GASTROINTESTINAL: abdominal pain nausea vomiting diarrhea GENITOURINARY: No dysuria No hematuria No difficulty urinating MUSCULOSKELETAL: back pain leg pain arm pain SKIN: No rashes No lesions LYMPHATIC: No swollen, enlarged glands. NEUROLOGICAL: No lightheadedness No headache No weakness No paresthesias PSYCHIATRIC: No anxiety No depression PHYSICAL EXAMINATION: Vital signs reviewed, nursing noted reviewed. GENERAL: Ill-appearing, well-nourished and in no acute distress. HEAD: Atraumatic, normocephalic. EYES: Eyes appear normal, extraocular movements intact, sclera anicteric, conjunctiva are normal. ENT: nares patent, oropharynx clear without exudates. Dry mucous membranes. NECK: Normal range of motion, supple without lymphadenopathy LUNGS: Breath sounds clear to auscultation bilaterally and equal. No wheezes rales or rhonchi. HEART: Regular rate and rhythm without murmurs ABDOMEN: Soft, diffusely tender. No rebound, guarding, or rigidity. No masses appreciated. EXTREMITIES: Diffusely tender without long bone deformity or signs of injury, good range of motion, no pitting or edema. NEUROLOGICAL: No focal neurological deficits. Moves all extremities spontaneously Motor and sensory grossly intact on exam. PSYCH: Normal mood, normal affect. SKIN: Warm, Dry, normal turgor, no rashes or lesions noted on exposed skin - Related Data Allergies/Adverse Reactions: doxycycline [Doxycycline] Allergy (Severe, Verified 02/14/19 18:16) Past Medical History - General Information source: Patient - Social History Smoking Status: Never Smoker Frequency of alcohol use: None Drug Abuse: None Family History: Reviewed & Not Pertinent Patient has suicidal ideation: No Patient has homicidal ideation: No - Past Medical History Cardiac Medical History: Reports: Hx Heart Murmur Denies: Hx Atrial Fibrillation, Hx Congestive Heart Failure, Hx Coronary Artery Disease, Hx Heart Attack, Hx Hypercholesterolemia, Hx Hypertension, Hx Peripheral Vascular Disease Pulmonary Medical History: Denies: Hx Tuberculosis Neurological Medical History: Denies: Hx Seizures Renal/ Medical History: Reports: Hx Ovarian Cysts. 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 Denies: Hx HIV Past Surgical History: Reports: Hx Appendectomy, Hx Section, Hx Cholecystectomy, Hx Orthopedic Surgery - R knee, Hx Tonsillectomy. Denies: Hx Bowel Surgery, Hx Coronary Artery Bypass Graft, Hx Gastric Bypass Surgery, Hx Herniorrhaphy, Hx Mastectomy, Hx Pacemaker, Hx Tubal Ligation - Immunizations Immunizations up to date: Yes Hx Diphtheria, Pertussis, Tetanus Vaccination: Yes Hx Pneumococcal Vaccination: 03/20/14 Physical Exam - Vital signs Vitals: Temp Pulse Resp BP Pulse Ox 99.2 F 81 18 101/59 L 98 02/14/19 18:30 02/14/19 18:30 02/14/19 18:30 02/14/19 18:30 02/14/19 18:30 Course - Re-evaluation Re-evalutation: 02/14/19 19:29 Vitals reviewed. Nursing notes reviewed. Patient given IV fluids, Zofran and Dilaudid for symptomatic management. She has no new symptoms today compared to her prior visit but does have some dry mucous membranes and may be becoming dehydrated. Lab work will be obtained to further evaluate. 02/14/19 20:55 Patient's lab work shows a mild decrease in her hemoglobin. She is Hemoccult negative in the emergency room and not acutely bleeding. Patient also has a low BUN and creatinine and mild hypokalemia. She was given 2 L of fluid in the emergency room for her dehydration. Potassium will be replaced. Patient has had multiple episodes of diarrhea while in the emergency room and has continued to feel nauseated. She is not tolerating oral intake and her sickle cell pain has become out of control. Patient has now had multiple visits to the emergency room without improvement. She will be admitted to the hospital for hydration and pain control. Stool culture has been obtained. Care discussed with Dr. Barraza who accepts admission. Laboratory 02/14/19 02/14/19 02/14/19 19:15 19:15 19:54 WBC 5.4 RBC 2.15 L Hgb 8.7 L Hct 24.9 L MCV 116 H MCH 40.3 H MCHC 34.9 RDW 29.3 H Plt Count 266 Lymph % (Auto) Not Reportable Nye % (Auto) Not Reportable Eos % (Auto) Not Reportable Baso % (Auto) Not Reportable Reticulocyte # 0.045 Absolute Neuts (auto) Not Reportable Absolute Lymphs (auto) Not Reportable Absolute Monos (auto) Not Reportable Absolute Eos (auto) Not Reportable Absolute Basos (auto) Not Reportable Total Counted 100 Seg Neutrophils % Not Reportable Seg Neuts % (Manual) 53 Lymphocytes % (Manual) 37 Monocytes % (Manual) 8 Eosinophils % (Manual) 1 Basophils % (Manual) 1 Abs Neuts (Manual) 2.9 Abs Lymphs (Manual) 2.0 Abs Monocytes (Manual) 0.4 Absolute Eos (Manual) 0.1 Abs Basophils (Manual) 0.1 Nucleated RBCs 1 Platelet Comment ADEQUATE Polychromasia SLIGHT Poikilocytosis 2+ Anisocytosis 4+ Macrocytosis 3+ Sickle Cells SLIGHT Target Cells 1+ Ovalocytes SLIGHT Retic Count (auto) 2.07 Sodium 139.2 Potassium 3.4 L Chloride 108 H Carbon Dioxide 22 Anion Gap 9 BUN 4 L Creatinine 0.51 L Est GFR ( Amer) > 60 Est GFR (MDRD) Non-Af > 60 Glucose 107 Calcium 9.5 Total Bilirubin 4.0 H Direct Bilirubin 0.7 H Neonat Total Bilirubin Not Reportable Neonat Direct Bilirubin Not Reportable Neonat Indirect Bili Not Reportable AST 65 H ALT 38 Alkaline Phosphatase 163 H Total Protein 8.1 Albumin 4.5 Urine Color YELLOW Urine Appearance CLEAR Urine pH 7.0 Ur Specific [place] 1.013 Urine Protein NEGATIVE Urine Glucose (UA) NEGATIVE Urine Ketones NEGATIVE Urine Blood SMALL H Urine Nitrite NEGATIVE Urine Bilirubin NEGATIVE Urine Urobilinogen 4.0 H Ur Leukocyte Esterase TRACE H Urine WBC (Auto) 2 Urine RBC (Auto) 1 Urine Bacteria (Auto) TRACE Squamous Epi Cells Auto 1 Urine Mucus (Auto) RARE Urine Ascorbic Acid NEGATIVE - Vital Signs Vital signs: Temp Pulse Resp BP Pulse Ox 99.2 F 81 18 101/59 L 98 02/14/19 18:30 02/14/19 18:30 02/14/19 18:30 02/14/19 18:30 02/14/19 18:30 - Laboratory Result Diagrams: 02/14/19 19:15 02/14/19 19:15 Laboratory results interpreted by me: 02/14/19 02/14/19 02/14/19 19:15 19:15 19:54 RBC 2.15 L Hgb 8.7 L Hct 24.9 L MCV 116 H MCH 40.3 H RDW 29.3 H Potassium 3.4 L Chloride 108 H BUN 4 L Creatinine 0.51 L Total Bilirubin 4.0 H Direct Bilirubin 0.7 H AST 65 H Alkaline Phosphatase 163 H Urine Blood SMALL H Urine Urobilinogen 4.0 H Ur Leukocyte Esterase TRACE H Discharge - Discharge Clinical Impression: Dehydration, Sickle cell pain crisis, Hypokalemia Abdominal pain Qualifiers: Abdominal location: generalized Qualified Code(s): R10.84 - Generalized abdominal pain Intractable vomiting Qualifiers: Vomiting type: unspecified Nausea presence: with nausea Qualified Code(s): R11.2 - Nausea with vomiting, unspecified Condition: Stable Disposition: ADMITTED OBSERVATION Admitting Provider: Da Unit Admitted: Medical Floor Referrals: HOMA BARRAZA MD [Primary Care Provider] - Follow up as needed
[2019-02-14 19:35] LABS: ABSOLUTE RETICS # 0.045 10^6/uL (0.028-0.122); HEMATOCRIT 24.9 % (36.0-47.0); HEMOGLOBIN 8.7 g/dL (12.0-15.5); MEAN CORPUSCULAR HEMOGLOBIN 40.3 pg (27.0-33.4); MEAN CORPUSCULAR HGB CONC 34.9 g/dL (32.0-36.0); MEAN CORPUSCULAR VOLUME 116 fl (80-97); PLATELET COUNT 266 10^3/uL (150-450); RED BLOOD COUNT 2.15 10^6/uL (3.72-5.28); RED CELL DISTRIBUTION WIDTH 29.3 % (11.5-14.0); RETICULOCYTE COUNT (AUTO) 2.07 % (0.66-2.85); WHITE BLOOD COUNT 5.4 10^3/uL (4.0-10.5)
[2019-02-14 19:43] LABS: ALBUMIN 4.5 g/dL (3.5-5.0); ALKALINE PHOSPHATASE 163 U/L (38-126); ANION GAP 9 (5-19); ASPARTATE AMINO TRANSFERASE 65 U/L (14-36); BILIRUBIN,DIRECT 0.7 mg/dL (0.0-0.4); BLOOD UREA NITROGEN 4 mg/dL (7-20); CALCIUM 9.5 mg/dL (8.4-10.2); CARBON DIOXIDE 22 mmol/L (22-30); CHLORIDE 108 mmol/L (98-107); GLUCOSE 107 mg/dL (75-110); POTASSIUM 3.4 mmol/L (3.6-5.0); TOTAL PROTEIN 8.1 g/dL (6.3-8.2)
[2019-02-14 19:52] LABS: ABSOLUTE MONOCYTES # (MANUAL) 0.4 10^3/uL (0.1-1.4); BASOPHILS % (MANUAL) 1 % (0-2); EOSINOPHILS % (MANUAL) 1 % (0-6); LYMPHOCYTES % (MANUAL) 37 % (13-45); MONOCYTES % (MANUAL) 8 % (3-13); NUCLEATED RED BLOOD CELLS 1 /100 WBC (0); SEGMENTED NEUTROPHILS % (MAN) 53 % (42-78); TOTAL CELLS COUNTED 100
[2019-02-14 19:54] LABS: ANISOCYTOSIS 4+; OVALOCYTES SLIGHT; PLATELET COMMENT ADEQUATE; POIKILOCYTOSIS 2+; POLYCHROMASIA SLIGHT; SICKLE RED CELLS SLIGHT; TARGET CELLS 1+
[2019-02-14 20:21] LABS: APPEARANCE,URINE CLEAR; BILIRUBIN,URINE NEGATIVE (NEGATIVE); GLUCOSE, URINE NEGATIVE (NEGATIVE); KETONES,URINE NEGATIVE (NEGATIVE); LEUKOCYTE ESTERASE,URINE TRACE (NEGATIVE); NITRITE,URINE NEGATIVE (NEGATIVE); PROTEIN,URINE NEGATIVE (NEGATIVE); URINE SPECIFIC GRAVITY 1.013
[2019-02-14 20:24] LABS: COLOR,URINE YELLOW
[2019-02-14] MEDS: POTASSI CL 20 MEQ/50 ML RIDER 20 MEQ/50 ML RTUPB IV SCH (21:25)
[2019-02-14] MEDS ORDERED: GABAPENTIN 300 MG CAPSULE PO ONE (23:00)
[2019-02-14] MEDS ORDERED: HYDROXYUREA 500 MG CAPSULE PO ONE (23:00)
[2019-02-14] MEDS ORDERED: OXYCODONE HCL SR 10 MG TABLET PO ONE (23:00)
[2019-02-15] MEDS: OXYCODONE HCL IR 5 MG TABLET PO PRN ×4 (00:35→15:24)
[2019-02-15] MEDS: PROMETHAZINE HCL 25 MG TABLET PO PRN ×2 (00:36→15:24)
[2019-02-15] MEDS: POTASSI CL 20 MEQ/50 ML RIDER 20 MEQ/50 ML RTUPB IV SCH (00:53)
[2019-02-15] MEDS: POTASSI CL 40 MEQ/NS 1L 1,000 ML IV PRN ×2 (05:10→15:02)
[2019-02-15] MEDS: GABAPENTIN 300 MG CAPSULE PO SCH ×3 (06:10→22:06)
[2019-02-15 07:25] LABS: HEMATOCRIT 22.2 % (36.0-47.0); MEAN CORPUSCULAR HEMOGLOBIN 39.6 pg (27.0-33.4); MEAN CORPUSCULAR HGB CONC 34.4 g/dL (32.0-36.0); MEAN CORPUSCULAR VOLUME 115 fl (80-97); PLATELET COUNT 236 10^3/uL (150-450); RED BLOOD COUNT 1.92 10^6/uL (3.72-5.28); RED CELL DISTRIBUTION WIDTH 28.8 % (11.5-14.0); WHITE BLOOD COUNT 6.7 10^3/uL (4.0-10.5)
[2019-02-15 07:34] LABS: ANION GAP 7 (5-19); BLOOD UREA NITROGEN 4 mg/dL (7-20); CALCIUM 8.7 mg/dL (8.4-10.2); CARBON DIOXIDE 22 mmol/L (22-30); CHLORIDE 111 mmol/L (98-107); GLUCOSE 97 mg/dL (75-110)
[2019-02-15 07:39] LABS: HEMOGLOBIN 7.6 g/dL (12.0-15.5)
[2019-02-15 07:42] LABS: ABSOLUTE LYMPHOCYTES# (MANUAL) 2.7 10^3/uL (0.5-4.7); ABSOLUTE MONOCYTES # (MANUAL) 0.4 10^3/uL (0.1-1.4); BASOPHILS % (MANUAL) 0 % (0-2); EOSINOPHILS % (MANUAL) 3 % (0-6); LYMPHOCYTES % (MANUAL) 36 % (13-45); MONOCYTES % (MANUAL) 6 % (3-13); SEGMENTED NEUTROPHILS % (MAN) 51 % (42-78); TOTAL CELLS COUNTED 100
[2019-02-15 07:44] LABS: ANISOCYTOSIS 4+; POIKILOCYTOSIS 1+; POLYCHROMASIA 1+
[2019-02-15 07:45] LABS: BURR CELLS SLIGHT; HOWELL-JOLLY BODIES PRESENT; OVALOCYTES 1+; PAPPENHEIMER BODIES PRESENT; PLATELET COMMENT ADEQUATE; SCHISTOCYTES SLIGHT; TARGET CELLS SLIGHT; TEAR DROP CELLS SLIGHT
[2019-02-15 07:48] LABS: POTASSIUM 4.9 mmol/L (3.6-5.0)
[2019-02-15] MEDS: MULTIVITAMIN TABLET PO SCH (10:54)
[2019-02-15] MEDS: OXYCODONE HCL SR 10 MG TABLET PO SCH ×2 (10:55→22:07)
[2019-02-15] MEDS: HYDROXYUREA 500 MG CAPSULE PO SCH ×3 (10:56→17:35)
[2019-02-15] MEDS: FOLIC ACID 1 MG TABLET PO SCH (10:56)
[2019-02-15] MEDS: HYDROMORPHONE HCL INJ/PF 2 MG/ML AMPULE IV PRN ×2 (13:36→20:38)
[2019-02-15] MEDS: RIVAROXABAN 10 MG TABLET PO SCH (17:35)
--- NOTE | 2019-02-15 20:33 | PDOC H&P ---
History of Present Illness Admission Date/PCP: 02/14/19 21:02 HOMA BARRAZA MD History of Present Illness: WILLIE ALAN is a 49 year old female, She has sickle cell disease, opioid dependence, she was just discharged from this hospital on 01/20/2019 after almost 3 weeks of inpatient care, she stated that she had diarrhea and vomiting for a day she was not particularly interested about coming to the emergency room for evaluation of the diarrhea or vomiting but she decided to come to the ER when she started having pain this was about 2 days ago, the ER provider gave me a call and we discussed case we concluded that there was no need to admit and that she should follow with me in the office the following day but she did not come up to see him in the office she came to emergency room again last night with the same complaint the ER physician felt she probably needed to be admitted for hydration. She has a very strong penchant for opioid usage, immediately she came in yesterday she was requesting for IV Dilaudid despite already on p.o. 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 Past Surgical History Past Surgical History: Reports: Appendectomy, Section, Cholecystectomy, Orthopedic Surgery - R knee, Tonsillectomy Social History Smoking Status: Never Smoker Frequency of Alcohol Use: None Hx Recreational Drug Use: No Drugs: None Hx Prescription Drug Abuse: No Family History Family History: Reviewed & Not Pertinent Parental Family History Reviewed: Yes Children Family History Reviewed: Yes Sibling(s) Family History Reviewed.: Yes Medication/Allergy Home Medications: Epoetin Federico [Procrit Inj 40,000 Unit/1 ml Vial (Renal)] 60,000 unit SQ FR 11/20/18 Folic Acid [Folvite 1 mg Tablet] 1 mg PO DAILY 11/20/18 Gabapentin [Neurontin 300 mg Capsule] 300 mg PO Q8 11/20/18 Hydroxyurea [Hydrea 500 mg Capsule] 500 mg PO TID 11/20/18 Multivitamin [Multiple Vitamins] 1 tab PO DAILY 11/20/18 Oxycodone HCl [Oxycodone HCl 10 MG Tablet] 10 mg PO Q6HP PRN 11/20/18 Oxycodone HCl [Oxycontin] 30 mg PO Q12 11/20/18 Promethazine HCl [Phenergan 25 mg Tablet] 25 mg PO Q6HP PRN 11/20/18 Rivaroxaban [Xarelto] 20 mg PO QPM 11/20/18 Allergies/Adverse Reactions: doxycycline [Doxycycline] Allergy (Severe, Verified 02/14/19 18:16) Review of Systems Constitutional: PRESENT: weakness Eyes: ABSENT: visual disturbances Ears: ABSENT: hearing changes Cardiovascular: ABSENT: chest pain, dyspnea on exertion, edema, orthropnea, palpitations Respiratory: ABSENT: cough, hemoptysis Gastrointestinal: PRESENT: abdominal pain, vomiting Genitourinary: ABSENT: dysuria, hematuria Musculoskeletal: ABSENT: joint swelling Integumentary: ABSENT: rash, wounds Neurological: ABSENT: abnormal gait, abnormal speech, confusion, dizziness, focal weakness, syncope Psychiatric: ABSENT: anxiety, depression, homidical ideation, suicidal ideation Endocrine: ABSENT: cold intolerance, heat intolerance, menstrual abnormalities, polydipsia, polyuria Hematologic/Lymphatic: ABSENT: easy bleeding, easy bruising, lymphadenopathy Physical Exam Vital Signs: Temp Pulse Resp BP Pulse Ox 99.2 F 82 23 H 111/70 99 02/15/19 16:39 02/15/19 16:39 02/15/19 11:56 02/15/19 16:39 02/15/19 16:39 Intake & Output 02/14/19 02/15/19 02/16/19 06:59 06:59 06:59 Intake Total 1050 2958 Output Total 250 Balance 800 2958 Weight 62.9 kg General appearance: PRESENT: no acute distress Head exam: PRESENT: atraumatic, normocephalic Eye exam: PRESENT: PERRLA Ear exam: PRESENT: normal external ear exam Mouth exam: PRESENT: moist, tongue midline Neck exam: PRESENT: full ROM Respiratory exam: PRESENT: clear to auscultation carolyn Cardiovascular exam: PRESENT: RRR, +S1, +S2 Pulses: PRESENT: normal dorsalis pedis pul, +2 pedal pulses bilateral Vascular exam: PRESENT: normal capillary refill GI/Abdominal exam: PRESENT: normal bowel sounds, soft Rectal exam: PRESENT: deferred Neurological exam: PRESENT: alert, CN II-XII grossly intact. ABSENT: motor sensory deficit Psychiatric exam: PRESENT: appropriate affect, normal mood Skin exam: PRESENT: dry, intact, warm Results Laboratory Results: 02/15/19 06:10 02/15/19 06:10 02/14/19 02/14/19 02/15/19 19:40 19:54 06:10 WBC 6.7 RBC 1.92 L Hgb 7.6 L Hct 22.2 L MCV 115 H MCH 39.6 H MCHC 34.4 RDW 28.8 H Plt Count 236 Seg Neutrophils % Not Reportable Sodium Potassium Chloride Carbon Dioxide Anion Gap BUN Creatinine Est GFR ( Amer) Glucose Calcium Urine Color YELLOW Urine Appearance CLEAR Urine pH 7.0 Ur Specific [place] 1.013 Urine Protein NEGATIVE Urine Glucose (UA) NEGATIVE Urine Ketones NEGATIVE Urine Blood SMALL H Urine Nitrite NEGATIVE Ur Leukocyte Esterase TRACE H Urine WBC (Auto) 2 Urine RBC (Auto) 1 Stool for White Cells NO WBCs SEEN 02/15/19 06:10 WBC RBC Hgb Hct MCV MCH MCHC RDW Plt Count Seg Neutrophils % Sodium 139.8 Potassium 4.9 D Chloride 111 H Carbon Dioxide 22 Anion Gap 7 BUN 4 L Creatinine 0.44 L Est GFR ( Amer) > 60 Glucose 97 Calcium 8.7 Urine Color Urine Appearance Urine pH Ur Specific [place] Urine Protein Urine Glucose (UA) Urine Ketones Urine Blood Urine Nitrite Ur Leukocyte Esterase Urine WBC (Auto) Urine RBC (Auto) Stool for White Cells Assessment & Plan - Diagnosis (1) Gastroenteritis Is this a current diagnosis for this admission?: Yes Plan: Hydrate with IV fluid (2) Sickle cell disease Qualifiers: Sickle-cell associated disorders: without crisis Qualified Code(s): D57.1 - Sickle-cell disease without crisis Is this a current diagnosis for this admission?: Yes
[2019-02-16] MEDS: HYDROMORPHONE HCL INJ/PF 2 MG/ML AMPULE IV PRN ×4 (02:44→21:43)
[2019-02-16] MEDS: GABAPENTIN 300 MG CAPSULE PO SCH ×3 (05:26→21:12)
[2019-02-16] MEDS: OXYCODONE HCL IR 5 MG TABLET PO PRN ×3 (05:39→19:43)
[2019-02-16] MEDS: OXYCODONE HCL SR 10 MG TABLET PO SCH ×2 (10:43→21:11)
[2019-02-16] MEDS: MULTIVITAMIN TABLET PO SCH (10:43)
[2019-02-16] MEDS: FOLIC ACID 1 MG TABLET PO SCH (10:43)
[2019-02-16] MEDS: HYDROXYUREA 500 MG CAPSULE PO SCH ×3 (10:43→18:22)
[2019-02-16] MEDS: POTASSI CL 40 MEQ/NS 1L 1,000 ML IV PRN ×2 (10:50→20:44)
[2019-02-16 11:18] LABS: HEMATOCRIT 21.2 % (36.0-47.0); MEAN CORPUSCULAR HEMOGLOBIN 40.3 pg (27.0-33.4); MEAN CORPUSCULAR HGB CONC 34.9 g/dL (32.0-36.0); MEAN CORPUSCULAR VOLUME 116 fl (80-97); PLATELET COUNT 262 10^3/uL (150-450); RED BLOOD COUNT 1.83 10^6/uL (3.72-5.28); RED CELL DISTRIBUTION WIDTH 28.9 % (11.5-14.0); WHITE BLOOD COUNT 5.6 10^3/uL (4.0-10.5)
[2019-02-16 11:20] LABS: HEMOGLOBIN 7.4 g/dL (12.0-15.5)
[2019-02-16 11:31] LABS: ABSOLUTE LYMPHOCYTES# (MANUAL) 2.7 10^3/uL (0.5-4.7); ABSOLUTE MONOCYTES # (MANUAL) 0.6 10^3/uL (0.1-1.4); BASOPHILS % (MANUAL) 3 % (0-2); EOSINOPHILS % (MANUAL) 7 % (0-6); LYMPHOCYTES % (MANUAL) 49 % (13-45); MONOCYTES % (MANUAL) 10 % (3-13); NUCLEATED RED BLOOD CELLS 2 /100 WBC (0); SEGMENTED NEUTROPHILS % (MAN) 31 % (42-78); TOTAL CELLS COUNTED 100
[2019-02-16 11:34] LABS: ANION GAP 6 (5-19); BLOOD UREA NITROGEN 8 mg/dL (7-20); CALCIUM 9.1 mg/dL (8.4-10.2); CARBON DIOXIDE 24 mmol/L (22-30); CHLORIDE 109 mmol/L (98-107); GLUCOSE 121 mg/dL (75-110); POTASSIUM 4.7 mmol/L (3.6-5.0)
[2019-02-16 11:35] LABS: ANISOCYTOSIS 4+; HYPERSEGMENTED NEUTROPHILS PRESENT; POIKILOCYTOSIS 1+; POLYCHROMASIA 1+
[2019-02-16 11:36] LABS: BURR CELLS SLIGHT; HOWELL-JOLLY BODIES PRESENT; OVALOCYTES SLIGHT; PAPPENHEIMER BODIES PRESENT; PLATELET COMMENT ADEQUATE; SCHISTOCYTES SLIGHT; SICKLE RED CELLS SLIGHT; TEAR DROP CELLS SLIGHT
[2019-02-16 11:37] LABS: TARGET CELLS SLIGHT
[2019-02-16] MEDS: RIVAROXABAN 10 MG TABLET PO SCH (18:22)
--- NOTE | 2019-02-16 19:09 | PDOC DISCHARGE SUMMARY ---
General - Admit/Disc Date/PCP Admission Date/Primary Care Provider: 02/14/19 21:02 HOMA BARRAZA MD Discharge Date: 02/16/19 - Discharge Diagnosis (1) Gastroenteritis Is this a current diagnosis for this admission?: Yes (2) Sickle cell disease Is this a current diagnosis for this admission?: Yes (3) Opioid dependence Is this a current diagnosis for this admission?: Yes - Additional Information Resuscitation Status: Full Code Home Medications: Epoetin Federico [Procrit Inj 40,000 Unit/1 ml Vial (Renal)] 60,000 unit SQ FR 11/20/18 Folic Acid [Folvite 1 mg Tablet] 1 mg PO DAILY 11/20/18 Gabapentin [Neurontin 300 mg Capsule] 300 mg PO Q8 11/20/18 Hydroxyurea [Hydrea 500 mg Capsule] 500 mg PO TID 11/20/18 Multivitamin [Multiple Vitamins] 1 tab PO DAILY 11/20/18 Oxycodone HCl [Oxycodone HCl 10 MG Tablet] 10 mg PO Q6HP PRN 11/20/18 Oxycodone HCl [Oxycontin] 30 mg PO Q12 11/20/18 Promethazine HCl [Phenergan 25 mg Tablet] 25 mg PO Q6HP PRN 11/20/18 Rivaroxaban [Xarelto] 20 mg PO QPM 11/20/18 History of Present Illness History of Present Illness: WILLIE ALAN is a 49 year old female, She has sickle cell disease, opioid dependence, she was just discharged from this hospital on 01/20/2019 after almost 3 weeks of inpatient care, she stated that she had diarrhea and vomiting for a day she was not particularly interested about coming to the emergency room for evaluation of the diarrhea or vomiting but she decided to come to the ER when she started having pain this was about 2 days ago, the ER provider gave me a call and we discussed case we concluded that there was no need to admit and that she should follow with me in the office the following day but she did not come up to see him in the office she came to emergency room again last night with the same complaint the ER physician felt she probably needed to be admitted for hydration. She has a very strong penchant for opioid usage, immediately she came in yesterday she was requesting for IV Dilaudid despite already on p.o. oxycodone Hospital Course Hospital Course: Patient was admitted for the management of diarrhea, the emergency room physician was concerned that she may develop dehydration. She again complained of pain, she has sickle cell disease, she is chronically on opioid both long acting and short acting opioid therapy she has a very strong penchant for opioid. She was requesting IV Dilaudid which has been consistently a pattern whenever she is admitted to the hospital. She was brought in for observation essentially for rehydration, she was given fluid therapy, there was very minimal diarrhea in the hospital Physical Exam Vital Signs: Temp Pulse Resp BP Pulse Ox 99.0 F 88 17 97/61 L 99 02/16/19 12:00 02/16/19 12:00 02/16/19 12:00 02/16/19 12:00 02/16/19 12:00 Intake & Output 02/15/19 02/16/19 02/17/19 06:59 06:59 06:59 Intake Total 1050 5352 716 Output Total 250 2000 Balance 800 5352 -1284 Weight 62.9 kg 66.8 kg General appearance: PRESENT: no acute distress Head exam: PRESENT: atraumatic, normocephalic Eye exam: PRESENT: PERRLA Ear exam: PRESENT: normal external ear exam Mouth exam: PRESENT: moist, tongue midline Neck exam: PRESENT: full ROM Respiratory exam: PRESENT: clear to auscultation carolyn Cardiovascular exam: PRESENT: RRR, +S1, +S2 Vascular exam: PRESENT: normal capillary refill GI/Abdominal exam: PRESENT: normal bowel sounds, soft Rectal exam: PRESENT: deferred Neurological exam: PRESENT: alert, CN II-XII grossly intact. ABSENT: motor sensory deficit Psychiatric exam: PRESENT: appropriate affect, normal mood Skin exam: PRESENT: dry, intact, warm Results Laboratory Results: 02/16/19 10:50 02/16/19 10:50 02/16/19 02/16/19 10:50 10:50 WBC 5.6 RBC 1.83 L Hgb 7.4 L Hct 21.2 L MCV 116 H MCH 40.3 H MCHC 34.9 RDW 28.9 H Plt Count 262 Seg Neutrophils % Not Reportable Sodium 139.3 Potassium 4.7 Chloride 109 H Carbon Dioxide 24 Anion Gap 6 BUN 8 Creatinine 0.62 Est GFR ( Amer) > 60 Glucose 121 H Calcium 9.1 Qualifiers - * PATIENT BEING DISCHARGED WITH ANY OF THE FOLLOWING DIAGNOSIS: No VTE patient discharged on overlapping Therapy?: No Reason(s) for not prescribing Overlap Therapy:: Not indicated Stroke Pt being discharged on Anti-thrombolytic therapy?: No Reason(s) for not prescribing Anti-thrombolytic therapy:: Not indicated Stroke Pt being discharged on Anti-coagulation therapy?: No Reason(s) for not prescribing Anti-coagulation therapy:: Not indicated Stroke Pt being discharged on Statins?: No Reason(s) for not prescribing Statins therapy:: Not indicated CA Pt being discharged on Aspirin therapy?: No Reason(s) for not prescribing Aspirin therapy:: Not indicated CA Pt being discharged on Statins?: No Reason(s) for not prescribing Statin therapy:: Not indicated CA Pt discharged ACEI/ARBS?: No Reason(s) for not prescribing ACEI/ARBS:: Not indicated Acute Heart Failure - Is this a Heart Failure Patient?: No Follow-up Appointment scheduled within 7 days?: Yes
[2019-02-16] MEDS: PROMETHAZINE HCL 25 MG TABLET PO PRN (21:46)
[2019-02-17] MEDS: OXYCODONE HCL IR 5 MG TABLET PO PRN ×2 (02:40→13:02)
[2019-02-17] MEDS: HYDROMORPHONE HCL INJ/PF 2 MG/ML AMPULE IV PRN ×4 (03:47→20:45)
[2019-02-17 04:11] LABS: HEMATOCRIT 22.2 % (36.0-47.0); MEAN CORPUSCULAR HEMOGLOBIN 39.8 pg (27.0-33.4); MEAN CORPUSCULAR HGB CONC 34.5 g/dL (32.0-36.0); MEAN CORPUSCULAR VOLUME 115 fl (80-97); PLATELET COUNT 294 10^3/uL (150-450); RED BLOOD COUNT 1.93 10^6/uL (3.72-5.28); WHITE BLOOD COUNT 6.6 10^3/uL (4.0-10.5)
[2019-02-17 04:24] LABS: ANION GAP 9 (5-19); BLOOD UREA NITROGEN 11 mg/dL (7-20); CALCIUM 9.3 mg/dL (8.4-10.2); CARBON DIOXIDE 25 mmol/L (22-30); CHLORIDE 108 mmol/L (98-107); GLUCOSE 102 mg/dL (75-110); POTASSIUM 5.2 mmol/L (3.6-5.0)
[2019-02-17 04:44] LABS: ABSOLUTE LYMPHOCYTES# (MANUAL) 3.1 10^3/uL (0.5-4.7); ABSOLUTE MONOCYTES # (MANUAL) 0.4 10^3/uL (0.1-1.4); BASOPHILS % (MANUAL) 1 % (0-2); EOSINOPHILS % (MANUAL) 7 % (0-6); LYMPHOCYTES % (MANUAL) 47 % (13-45); MONOCYTES % (MANUAL) 6 % (3-13); NUCLEATED RED BLOOD CELLS 2 /100 WBC (0); SEGMENTED NEUTROPHILS % (MAN) 39 % (42-78); TOTAL CELLS COUNTED 100
[2019-02-17 04:46] LABS: ANISOCYTOSIS 4+; HOWELL-JOLLY BODIES PRESENT; OVALOCYTES SLIGHT; PLATELET COMMENT ADEQUATE; POIKILOCYTOSIS SLIGHT; POLYCHROMASIA SLIGHT; SICKLE RED CELLS SLIGHT; TARGET CELLS SLIGHT
[2019-02-17 04:47] LABS: HEMOGLOBIN 7.7 g/dL (12.0-15.5)
[2019-02-17] MEDS: GABAPENTIN 300 MG CAPSULE PO SCH ×3 (06:52→21:39)
[2019-02-17] MEDS: POTASSI CL 40 MEQ/NS 1L 1,000 ML IV PRN (06:52)
[2019-02-17] MEDS: MULTIVITAMIN TABLET PO SCH (09:19)
[2019-02-17] MEDS: OXYCODONE HCL SR 10 MG TABLET PO SCH ×2 (09:19→21:39)
[2019-02-17] MEDS: FOLIC ACID 1 MG TABLET PO SCH (09:19)
[2019-02-17] MEDS: HYDROXYUREA 500 MG CAPSULE PO SCH ×3 (09:19→17:37)
--- NOTE | 2019-02-17 11:04 | PDOC PROGRESS REPORT ---
Subjective Progress Note for:: 02/17/19 Subjective:: Initially admitted because of the some mild gastroenteritis that resolved but also have ongoing sickle cell issue patient is discharged from Dr. Roberson but patients refused to discharge Patient is asked to consult the instructional resource teacher Patients denied any chest pain to than any shortness of the breath Patient has ongoing chronic back problem and a chronic pain medications issues Reason For Visit: DIARRHEA,SICKLE CELL DISEASE Physical Exam Vital Signs: Temp Pulse Resp BP Pulse Ox 99.2 F 83 16 117/67 99 02/17/19 07:33 02/17/19 07:33 02/17/19 07:33 02/17/19 07:33 02/17/19 07:33 Intake & Output 02/16/19 02/17/19 02/18/19 06:59 06:59 06:59 Intake Total 5352 3806 Output Total 4450 Balance 5352 -644 Weight 66.8 kg 65.4 kg General appearance: PRESENT: no acute distress, well-developed, well-nourished Head exam: PRESENT: atraumatic, normocephalic Eye exam: PRESENT: conjunctiva pink, EOMI, PERRLA. ABSENT: scleral icterus Ear exam: PRESENT: normal external ear exam Mouth exam: PRESENT: moist, tongue midline Neck exam: PRESENT: full ROM. ABSENT: carotid bruit, JVD, lymphadenopathy, thyromegaly Respiratory exam: PRESENT: clear to auscultation carolyn Cardiovascular exam: PRESENT: RRR. ABSENT: diastolic murmur, rubs, systolic murmur Pulses: PRESENT: normal dorsalis pedis pul, +2 pedal pulses bilateral Vascular exam: PRESENT: normal capillary refill GI/Abdominal exam: PRESENT: normal bowel sounds, soft. ABSENT: distended, guarding, mass, organolmegaly, rebound, tenderness Rectal exam: PRESENT: deferred Neurological exam: PRESENT: alert, awake, oriented to person, oriented to place, oriented to time, oriented to situation, CN II-XII grossly intact. ABSENT: motor sensory deficit Psychiatric exam: PRESENT: appropriate affect, normal mood. ABSENT: homicidal ideation, suicidal ideation Skin exam: PRESENT: dry, intact, warm. ABSENT: cyanosis, rash Results Laboratory Results: 02/17/19 03:50 02/17/19 03:50 02/16/19 02/16/19 02/17/19 10:50 10:50 03:50 WBC 5.6 6.6 RBC 1.83 L 1.93 L Hgb 7.4 L 7.7 L Hct 21.2 L 22.2 L MCV 116 H 115 H MCH 40.3 H 39.8 H MCHC 34.9 34.5 RDW 28.9 H 29.0 H Plt Count 262 294 Seg Neutrophils % Not Reportable Not Reportable Sodium 139.3 Potassium 4.7 Chloride 109 H Carbon Dioxide 24 Anion Gap 6 BUN 8 Creatinine 0.62 Est GFR ( Amer) > 60 Glucose 121 H Calcium 9.1 02/17/19 03:50 WBC RBC Hgb Hct MCV MCH MCHC RDW Plt Count Seg Neutrophils % Sodium 142.3 Potassium 5.2 H Chloride 108 H Carbon Dioxide 25 Anion Gap 9 BUN 11 Creatinine 0.67 Est GFR ( Amer) > 60 Glucose 102 Calcium 9.3 02/14/19 19:40 Stool - Stool - Final Assessment & Plan - Diagnosis (1) Sickle cell disease Qualifiers: Sickle-cell associated disorders: without crisis Qualified Code(s): D57.1 - Sickle-cell disease without crisis Is this a current diagnosis for this admission?: Yes (2) Opioid dependence Is this a current diagnosis for this admission?: Yes (3) Anemia Qualifiers: 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 Qualified Code(s): D58.2 - Other hemoglobinopathies Is this a current diagnosis for this admission?: Yes (4) Chronic pain syndrome Is this a current diagnosis for this admission?: Yes (5) Diarrhea Qualifiers: Diarrhea type: unspecified type Qualified Code(s): R19.7 - Diarrhea, unspecified Is this a current diagnosis for this admission?: Yes Plan: All resolved - Time Time Spent with patient: 15-24 minutes Medications reviewed and adjusted accordingly: Yes Anticipated discharge: Home Within: Other - Plan Summary Plan Summary: Consult the instructional resource teacher Discussed with the patient about to utilize more p.o. pain medications with ongoing chronic pain symptoms Patient is supposed to go and see a pain management for the pain management did not take the Medicaid
--- NOTE | 2019-02-17 16:22 | PDOC CONSULTATION ---
Consultation Consult Date: 02/17/19 Provider Consulted: SAVANNA AWAN Consult reason:: Hematology/Oncology consultation was requested for patient well known to me with acute sickle cell anemia pain crisis. History of Present Illness Admission Date/PCP: 02/14/19 21:02 HOMA BARRAZA MD History of Present Illness: WILLIE ALAN is a 49 year old female with longstanding sickle cell anemia. Her last hospital admission was about 1 month ago. Patient states that she was doing well until about 3 days prior to admission. She began having severe vomiting and diarrhea. She was evaluated in the ED, but was sent home after IV fluids. She progressively worsened. She could no longer keep her regular pain meds down. She was having explosive diarrhea. She again presented to the ED and was admitted. However, she states that since admission, her pain has progressively worsened. Only yesterday for the first time was she able to hold down any solid food. She had requested her regular dose of Dilaudid 4 mg IV q 4 hours and she also called my office yesterday requesting that I manage her sickle cell crisis. However, I had not yet been consulted by her PCP. Today, she is lying very still, crying in pain. 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 Denies: HIV Past Surgical History Past Surgical History: Reports: Appendectomy, Section, Cholecystectomy, Orthopedic Surgery - R knee, Tonsillectomy Denies: Amputation, Coronary Artery Bypass Graft, Gastric Bypass Surgery, Herniorrhaphy, Mastectomy, Pacemaker, Tubal Ligation Social History Smoking Status: Never Smoker Frequency of Alcohol Use: None Hx Recreational Drug Use: No Drugs: None Hx Prescription Drug Abuse: No - Advance Directive Resuscitation Status: Full Code Family History Family History: Reviewed & Not Pertinent Parental Family History Reviewed: Yes Children Family History Reviewed: Yes Sibling(s) Family History Reviewed.: Yes Medication/Allergy Home Medications: Epoetin Federico [Procrit Inj 40,000 Unit/1 ml Vial (Renal)] 60,000 unit SQ FR 11/20/18 Folic Acid [Folvite 1 mg Tablet] 1 mg PO DAILY 11/20/18 Gabapentin [Neurontin 300 mg Capsule] 300 mg PO Q8 11/20/18 Hydroxyurea [Hydrea 500 mg Capsule] 500 mg PO TID 11/20/18 Multivitamin [Multiple Vitamins] 1 tab PO DAILY 11/20/18 Oxycodone HCl [Oxycodone HCl 10 MG Tablet] 10 mg PO Q6HP PRN 11/20/18 Oxycodone HCl [Oxycontin] 30 mg PO Q12 11/20/18 Promethazine HCl [Phenergan 25 mg Tablet] 25 mg PO Q6HP PRN 11/20/18 Rivaroxaban [Xarelto] 20 mg PO QPM 11/20/18 Allergies/Adverse Reactions: doxycycline [Doxycycline] Allergy (Severe, Verified 02/14/19 18:16) Review of Systems Constitutional: ABSENT: fever(s), headache(s) Eyes: ABSENT: visual disturbances Ears: ABSENT: hearing changes Nose, Mouth, and Throat: PRESENT: headache(s) Cardiovascular: PRESENT: chest pain Respiratory: ABSENT: dyspnea Gastrointestinal: PRESENT: diarrhea, nausea, vomiting Genitourinary: ABSENT: dysuria Musculoskeletal: PRESENT: back pain, other - Hip pain Neurological: PRESENT: other - Unable to walk due to pain. Hematologic/Lymphatic: ABSENT: easy bruising Physical Exam Vital Signs: Temp Pulse Resp BP Pulse Ox 99.5 F 91 17 121/65 99 02/17/19 12:30 02/17/19 12:30 02/17/19 12:30 02/17/19 12:30 02/17/19 12:30 Intake & Output 02/16/19 02/17/19 02/18/19 06:59 06:59 06:59 Intake Total 0429 8396 Output Total 5500 Balance 5352 -641 Weight 66.8 kg 65.4 kg General appearance: PRESENT: mild distress, well-developed, well-nourished Head exam: PRESENT: atraumatic, normocephalic Eye exam: PRESENT: EOMI, PERRLA Mouth exam: PRESENT: neck supple Neck exam: ABSENT: lymphadenopathy, tenderness Respiratory exam: PRESENT: wheezes - bilaterally. Cardiovascular exam: PRESENT: RRR GI/Abdominal exam: PRESENT: soft. ABSENT: tenderness Extremities exam: ABSENT: pedal edema Neurological exam: PRESENT: alert, awake, oriented to person, oriented to place, oriented to time, oriented to situation Psychiatric exam: PRESENT: appropriate affect Skin exam: PRESENT: normal color Results Laboratory Results: 02/17/19 03:50 02/17/19 03:50 02/17/19 02/17/19 03:50 03:50 WBC 6.6 RBC 1.93 L Hgb 7.7 L Hct 22.2 L MCV 115 H MCH 39.8 H MCHC 34.5 RDW 29.0 H Plt Count 294 Seg Neutrophils % Not Reportable Sodium 142.3 Potassium 5.2 H Chloride 108 H Carbon Dioxide 25 Anion Gap 9 BUN 11 Creatinine 0.67 Est GFR ( Amer) > 60 Glucose 102 Calcium 9.3 02/14/19 19:40 Stool - Stool - Final Assessment & Plan - Diagnosis (1) Gastroenteritis Is this a current diagnosis for this admission?: Yes Plan: Slowly resolving. She has been dehydrated, but this is slowly improving. She will continue NS and will continue to try to push fluids. I will add phenergan for her nausea. (2) Intractable vomiting Qualifiers: Vomiting type: unspecified Nausea presence: with nausea Qualified Code(s): R11.2 - Nausea with vomiting, unspecified Is this a current diagnosis for this admission?: Yes Plan: Now resolved. Slowly advance diet. (3) Sickle cell pain crisis Is this a current diagnosis for this admission?: Yes Plan: I will add oxygen and K-pad and add benadryl and increase her dilaudid. Hopefully, this will resolve faster with better pain control. I do not believe she is safe to be discharged, as she is not able to ambulate without pain. I will continue to monitor her blood counts. Consider blood transfusion. None today.
[2019-02-17] MEDS: PROMETHAZINE HCL INJ 25 MG/1 ML VIAL IV PRN (16:33)
[2019-02-17] MEDS: 1/2 NORMAL SALINE 1,000 ML IV PRN (16:39)
[2019-02-17] MEDS: RIVAROXABAN 10 MG TABLET PO SCH (17:37)
[2019-02-17] MEDS: DIPHENHYDRAMINE HCL 25 MG CAPSULE PO PRN (20:46)
[2019-02-18] MEDS: OXYCODONE HCL IR 5 MG TABLET PO PRN ×2 (00:11→17:11)
[2019-02-18] MEDS: PROMETHAZINE HCL INJ 25 MG/1 ML VIAL IV PRN ×4 (00:12→21:37)
[2019-02-18] MEDS: HYDROMORPHONE HCL INJ/PF 2 MG/ML AMPULE IV PRN ×6 (01:06→23:57)
[2019-02-18] MEDS: GABAPENTIN 300 MG CAPSULE PO SCH ×3 (05:56→21:28)
[2019-02-18] MEDS: 1/2 NORMAL SALINE 1,000 ML IV PRN (08:42)
[2019-02-18] MEDS: OXYCODONE HCL SR 10 MG TABLET PO SCH ×2 (10:02→21:27)
[2019-02-18] MEDS: FOLIC ACID 1 MG TABLET PO SCH (10:03)
[2019-02-18] MEDS: MULTIVITAMIN TABLET PO SCH (10:03)
[2019-02-18] MEDS: HYDROXYUREA 500 MG CAPSULE PO SCH ×3 (10:03→17:12)
--- NOTE | 2019-02-18 10:58 | PDOC PROGRESS REPORT ---
Subjective Progress Note for:: 02/18/19 Subjective:: Patient seen by the critical care nurse yesterday adjust the pain medications Patient's denied any chest pain to than any shortness of the breath Patient's main complaint is a hip pain and shoulder pain I believe patients need a further evaluation as per the orthopedic as an outpatient Reason For Visit: DIARRHEA,SICKLE CELL DISEASE Physical Exam Vital Signs: Temp Pulse Resp BP Pulse Ox 99.2 F 80 19 109/61 96 02/18/19 08:21 02/18/19 08:21 02/18/19 08:21 02/18/19 08:21 02/18/19 08:21 Intake & Output 02/17/19 02/18/19 02/19/19 06:59 06:59 06:59 Intake Total 3806 2221 Output Total 4450 Balance -644 2221 Weight 65.4 kg 68 kg General appearance: PRESENT: no acute distress, well-developed, well-nourished Head exam: PRESENT: atraumatic, normocephalic Eye exam: PRESENT: conjunctiva pink, EOMI, PERRLA. ABSENT: scleral icterus Ear exam: PRESENT: normal external ear exam Mouth exam: PRESENT: moist, tongue midline Neck exam: PRESENT: full ROM. ABSENT: carotid bruit, JVD, lymphadenopathy, thyromegaly Respiratory exam: PRESENT: clear to auscultation carolyn Cardiovascular exam: PRESENT: RRR. ABSENT: diastolic murmur, rubs, systolic murmur Pulses: PRESENT: normal dorsalis pedis pul, +2 pedal pulses bilateral Vascular exam: PRESENT: normal capillary refill GI/Abdominal exam: PRESENT: normal bowel sounds, soft. ABSENT: distended, guarding, mass, organolmegaly, rebound, tenderness Rectal exam: PRESENT: deferred Neurological exam: PRESENT: alert, awake, oriented to person, oriented to place, oriented to time, oriented to situation, CN II-XII grossly intact. ABSENT: motor sensory deficit Psychiatric exam: PRESENT: appropriate affect, normal mood. ABSENT: homicidal ideation, suicidal ideation Skin exam: PRESENT: dry, intact, warm. ABSENT: cyanosis, rash Results Laboratory Results: 02/17/19 03:50 02/17/19 03:50 02/14/19 19:40 Stool - Stool - Final 02/14/19 19:40 Stool - Stool Stool Culture - Final NO SALMONELLA, SHIGELLA, CAMPYLOBACTER, OR E.COLI 0157 RECOVERED. NEGATIVE FOR SHIGA TOXINS 1&2. Assessment & Plan - Diagnosis (1) Sickle cell disease Qualifiers: Sickle-cell associated disorders: without crisis Qualified Code(s): D57.1 - Sickle-cell disease without crisis Is this a current diagnosis for this admission?: Yes (2) Opioid dependence Is this a current diagnosis for this admission?: Yes (3) Anemia Qualifiers: 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 Qualified Code(s): D58.2 - Other hemoglobinopathies Is this a current diagnosis for this admission?: Yes (4) Chronic pain syndrome Is this a current diagnosis for this admission?: Yes (5) Diarrhea Qualifiers: Diarrhea type: unspecified type Qualified Code(s): R19.7 - Diarrhea, unspecified Is this a current diagnosis for this admission?: Yes - Time Time Spent with patient: 15-24 minutes Medications reviewed and adjusted accordingly: Yes Anticipated discharge: Home Within: Other - Plan Summary Plan Summary: We will put the physical therapist evaluations Continues to current medications
[2019-02-18] MEDS: RIVAROXABAN 10 MG TABLET PO SCH (17:11)
[2019-02-19] MEDS: PROMETHAZINE HCL INJ 25 MG/1 ML VIAL IV PRN ×4 (02:45→17:30)
[2019-02-19] MEDS: HYDROMORPHONE HCL INJ/PF 2 MG/ML AMPULE IV PRN ×5 (03:58→21:52)
[2019-02-19] MEDS: GABAPENTIN 300 MG CAPSULE PO SCH ×3 (05:37→21:52)
[2019-02-19 06:06] LABS: HEMATOCRIT 18.8 % (36.0-47.0); MEAN CORPUSCULAR HEMOGLOBIN 41.1 pg (27.0-33.4); MEAN CORPUSCULAR HGB CONC 35.7 g/dL (32.0-36.0); MEAN CORPUSCULAR VOLUME 115 fl (80-97); PLATELET COUNT 273 10^3/uL (150-450); RED BLOOD COUNT 1.63 10^6/uL (3.72-5.28); RED CELL DISTRIBUTION WIDTH 28.8 % (11.5-14.0); WHITE BLOOD COUNT 5.8 10^3/uL (4.0-10.5)
[2019-02-19 06:16] LABS: ALBUMIN 3.9 g/dL (3.5-5.0); ALKALINE PHOSPHATASE 133 U/L (38-126); ANION GAP 8 (5-19); ASPARTATE AMINO TRANSFERASE 63 U/L (14-36); BILIRUBIN,DIRECT 0.4 mg/dL (0.0-0.4); BILIRUBIN,TOTAL 3.2 mg/dL (0.2-1.3); BLOOD UREA NITROGEN 11 mg/dL (7-20); CALCIUM 8.9 mg/dL (8.4-10.2); CARBON DIOXIDE 27 mmol/L (22-30); CHLORIDE 103 mmol/L (98-107); GLUCOSE 118 mg/dL (75-110); POTASSIUM 4.4 mmol/L (3.6-5.0); TOTAL PROTEIN 6.8 g/dL (6.3-8.2)
[2019-02-19 06:41] LABS: HEMOGLOBIN 6.7 g/dL (12.0-15.5)
[2019-02-19 06:48] LABS: ABSOLUTE LYMPHOCYTES# (MANUAL) 1.8 10^3/uL (0.5-4.7); ABSOLUTE MONOCYTES # (MANUAL) 0.4 10^3/uL (0.1-1.4); BASOPHILS % (MANUAL) 0 % (0-2); EOSINOPHILS % (MANUAL) 4 % (0-6); LYMPHOCYTES % (MANUAL) 31 % (13-45); MONOCYTES % (MANUAL) 7 % (3-13); NUCLEATED RED BLOOD CELLS 3 /100 WBC (0); SEGMENTED NEUTROPHILS % (MAN) 58 % (42-78); TOTAL CELLS COUNTED 100
[2019-02-19 06:49] LABS: ANISOCYTOSIS 4+
[2019-02-19 06:50] LABS: HYPOCHROMASIA 3+; PLATELET COMMENT ADEQUATE
[2019-02-19] MEDS: OXYCODONE HCL IR 5 MG TABLET PO PRN ×3 (07:34→22:51)
[2019-02-19] MEDS: 1/2 NORMAL SALINE 1,000 ML IV PRN ×2 (08:19)
[2019-02-19] MEDS: OXYCODONE HCL SR 10 MG TABLET PO SCH ×2 (09:34→21:51)
[2019-02-19] MEDS: FOLIC ACID 1 MG TABLET PO SCH (09:34)
[2019-02-19] MEDS: HYDROXYUREA 500 MG CAPSULE PO SCH ×3 (09:34→17:31)
[2019-02-19] MEDS: MULTIVITAMIN TABLET PO SCH (09:35)
[2019-02-19] MEDS ORDERED: NORMAL SALINE 1000 ML 1,000 ML with POTASSIUM CHLORIDE 20 MEQ, MAGNESIUM SULFATE 8 MEQ,... IV PRN ×5 (10:16)
--- NOTE | 2019-02-19 10:24 | PDOC PROGRESS REPORT ---
Subjective Progress Note for:: 02/19/19 Subjective:: Patient continues to complain of pain all over. Not improving yet. However, she continues to wok with physical therapy and continues to try to eat and drink as much as possible. She is wearing her oxygen. Reason For Visit: DIARRHEA,SICKLE CELL DISEASE Physical Exam Vital Signs: Temp Pulse Resp BP Pulse Ox 99.3 F 97 19 103/77 96 02/19/19 07:34 02/19/19 07:34 02/19/19 07:34 02/19/19 07:34 02/19/19 07:34 Intake & Output 02/18/19 02/19/19 02/20/19 06:59 06:59 06:59 Intake Total 2221 2380 1000 Output Total 260 Balance 2221 2120 1000 Weight 68 kg 66.8 kg General appearance: PRESENT: mild distress, well-developed, well-nourished Head exam: PRESENT: normocephalic Mouth exam: PRESENT: dry mucosa Respiratory exam: PRESENT: clear to auscultation carolyn, unlabored Cardiovascular exam: PRESENT: RRR GI/Abdominal exam: PRESENT: soft. ABSENT: tenderness Extremities exam: PRESENT: joint swelling - Left knee. Possible effusion Musculoskeletal exam: PRESENT: ambulatory Neurological exam: PRESENT: alert, awake Psychiatric exam: PRESENT: appropriate affect Skin exam: PRESENT: normal color Results Laboratory Results: 02/19/19 05:40 02/19/19 05:40 02/19/19 02/19/19 05:40 05:40 WBC 5.8 RBC 1.63 L Hgb 6.7 L Hct 18.8 L MCV 115 H MCH 41.1 H MCHC 35.7 RDW 28.8 H Plt Count 273 Seg Neutrophils % Not Reportable Sodium 137.8 Potassium 4.4 Chloride 103 Carbon Dioxide 27 Anion Gap 8 BUN 11 Creatinine 0.65 Est GFR ( Amer) > 60 Glucose 118 H Calcium 8.9 Total Bilirubin 3.2 H AST 63 H Alkaline Phosphatase 133 H Total Protein 6.8 Albumin 3.9 02/14/19 19:40 Stool - Stool - Final 02/14/19 19:40 Stool - Stool Stool Culture - Final NO SALMONELLA, SHIGELLA, CAMPYLOBACTER, OR E.COLI 0157 RECOVERED. NEGATIVE FOR SHIGA TOXINS 1&2. Assessment & Plan - Diagnosis (1) Gastroenteritis Is this a current diagnosis for this admission?: Yes Plan: Improved (2) Intractable vomiting Qualifiers: Vomiting type: unspecified Nausea presence: with nausea Qualified Code(s): R11.2 - Nausea with vomiting, unspecified Is this a current diagnosis for this admission?: Yes (3) Sickle cell pain crisis Is this a current diagnosis for this admission?: Yes Plan: Continue current meds. Her HGB has dropped. However,I do not believe she will benefit from blood transfusion. I will continue to follow. (4) Knee swelling Is this a current diagnosis for this admission?: Yes Plan: I will check plain X-ray today. She has heating pad for comfort.
--- NOTE | 2019-02-19 10:54 | PDOC PROGRESS REPORT ---
Subjective Progress Note for:: 02/19/19 Subjective:: Patient seen by the extermination inspector yesterday adjust the pain medications Patient's denied any chest pain to than any shortness of the breath Patient's main complaint is a hip pain and shoulder pain I believe patients need a further evaluation as per the orthopedic as an outpatient Reason For Visit: DIARRHEA,SICKLE CELL DISEASE Physical Exam Vital Signs: Temp Pulse Resp BP Pulse Ox 99.3 F 97 19 103/77 96 02/19/19 07:34 02/19/19 07:34 02/19/19 07:34 02/19/19 07:34 02/19/19 07:34 Intake & Output 02/18/19 02/19/19 02/20/19 06:59 06:59 06:59 Intake Total 2221 2380 1000 Output Total 260 Balance 2221 2120 1000 Weight 68 kg 66.8 kg General appearance: PRESENT: no acute distress, well-developed, well-nourished Head exam: PRESENT: atraumatic, normocephalic Eye exam: PRESENT: conjunctiva pink, EOMI, PERRLA. ABSENT: scleral icterus Ear exam: PRESENT: normal external ear exam Mouth exam: PRESENT: moist, tongue midline Neck exam: PRESENT: full ROM. ABSENT: carotid bruit, JVD, lymphadenopathy, thyromegaly Respiratory exam: PRESENT: clear to auscultation carolyn Cardiovascular exam: PRESENT: RRR. ABSENT: diastolic murmur, rubs, systolic murmur Pulses: PRESENT: normal dorsalis pedis pul, +2 pedal pulses bilateral Vascular exam: PRESENT: normal capillary refill GI/Abdominal exam: PRESENT: normal bowel sounds, soft. ABSENT: distended, guarding, mass, organolmegaly, rebound, tenderness Rectal exam: PRESENT: deferred Musculoskeletal exam: PRESENT: ambulatory Neurological exam: PRESENT: alert, awake, oriented to person, oriented to place, oriented to time, oriented to situation, CN II-XII grossly intact. ABSENT: motor sensory deficit Psychiatric exam: PRESENT: appropriate affect, normal mood. ABSENT: homicidal ideation, suicidal ideation Skin exam: PRESENT: dry, intact, warm. ABSENT: cyanosis, rash Results Laboratory Results: 02/19/19 05:40 02/19/19 05:40 02/19/19 02/19/19 05:40 05:40 WBC 5.8 RBC 1.63 L Hgb 6.7 L Hct 18.8 L MCV 115 H MCH 41.1 H MCHC 35.7 RDW 28.8 H Plt Count 273 Seg Neutrophils % Not Reportable Sodium 137.8 Potassium 4.4 Chloride 103 Carbon Dioxide 27 Anion Gap 8 BUN 11 Creatinine 0.65 Est GFR ( Amer) > 60 Glucose 118 H Calcium 8.9 Total Bilirubin 3.2 H AST 63 H Alkaline Phosphatase 133 H Total Protein 6.8 Albumin 3.9 02/14/19 19:40 Stool - Stool - Final 02/14/19 19:40 Stool - Stool Stool Culture - Final NO SALMONELLA, SHIGELLA, CAMPYLOBACTER, OR E.COLI 0157 RECOVERED. NEGATIVE FOR SHIGA TOXINS 1&2. Assessment & Plan - Diagnosis (1) Sickle cell disease Qualifiers: Sickle-cell associated disorders: without crisis Qualified Code(s): D57.1 - Sickle-cell disease without crisis Is this a current diagnosis for this admission?: Yes (2) Opioid dependence Is this a current diagnosis for this admission?: Yes (3) Anemia Qualifiers: 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 Qualified Code(s): D58.2 - Other hemoglobinopathies Is this a current diagnosis for this admission?: Yes (4) Chronic pain syndrome Is this a current diagnosis for this admission?: Yes (5) Diarrhea Qualifiers: Diarrhea type: unspecified type Qualified Code(s): R19.7 - Diarrhea, unspecified Is this a current diagnosis for this admission?: Yes - Time Time Spent with patient: 15-24 minutes Medications reviewed and adjusted accordingly: Yes Anticipated discharge: Home Within: Other - Plan Summary Plan Summary: Continues to physical therapy evaluations Follow with hematology
--- NOTE | 2019-02-19 11:26 | RADIOLOGY REPORT (SQ) ---
EXAM DESCRIPTION: KNEE LEFT 2 VIEWS COMPLETED DATE/TIME: 02/19/2019 11:16 am REASON FOR STUDY: swelling COMPARISON: None. NUMBER OF VIEWS: Two views. TECHNIQUE: AP and lateral radiographic images acquired of the left knee. LIMITATIONS: None. FINDINGS: MINERALIZATION: Normal. BONES: No acute fracture or dislocation. No worrisome bone lesions. No significant osteophytes. JOINT: No effusion. No chondrocalcinosis. OTHER: No other significant finding. IMPRESSION: NO SIGNIFICANT RADIOGRAPHIC ABNORMALITY. TECHNICAL DOCUMENTATION: JOB ID: [id number] [employer]- All Rights Reserved Reading location - IP/workstation name: [email or web address]
[2019-02-19] MEDS: RIVAROXABAN 10 MG TABLET PO SCH (17:30)
[2019-02-20] MEDS: PROMETHAZINE HCL INJ 25 MG/1 ML VIAL IV PRN ×6 (00:41→23:17)
[2019-02-20] MEDS: HYDROMORPHONE HCL INJ/PF 2 MG/ML AMPULE IV PRN ×6 (01:52→23:17)
[2019-02-20] MEDS: OXYCODONE HCL IR 5 MG TABLET PO PRN (05:25)
[2019-02-20] MEDS: GABAPENTIN 300 MG CAPSULE PO SCH ×3 (05:26→21:07)
[2019-02-20] MEDS: 1/2 NORMAL SALINE 1,000 ML IV PRN ×3 (05:29→23:18)
[2019-02-20] MEDS: DIPHENHYDRAMINE HCL 25 MG CAPSULE PO PRN ×4 (06:39→19:00)
--- NOTE | 2019-02-20 08:23 | PDOC PROGRESS REPORT ---
Subjective Progress Note for:: 02/20/19 Subjective:: Patient is still in pain. Hemoglobin is down to 6.7 but we discussed this morning that on last visit her hemoglobin went in the 5 range, she did receive transfusion and did not really seem to improve from it. Reason For Visit: DIARRHEA,SICKLE CELL DISEASE Physical Exam Vital Signs: Temp Pulse Resp BP Pulse Ox 98.8 F 91 19 110/65 94 02/19/19 15:03 02/19/19 15:03 02/19/19 15:03 02/19/19 15:03 02/19/19 15:03 Intake & Output 02/19/19 02/20/19 02/21/19 06:59 06:59 06:59 Intake Total 2380 3440 Output Total 260 Balance 2120 3440 Weight 66.8 kg 69.8 kg Results Laboratory Results: 02/19/19 05:40 02/19/19 05:40 Impressions: Knee X-Ray 02/19/19 10:18 IMPRESSION: NO SIGNIFICANT RADIOGRAPHIC ABNORMALITY. Assessment & Plan - Diagnosis (1) Sickle cell disease Qualifiers: Sickle-cell associated disorders: with unspecified crisis Qualified Code(s): D57.00 - Hb-SS disease with crisis, unspecified; D57.0 - Hb-SS disease with crisis Is this a current diagnosis for this admission?: Yes Plan: Sickle cell disease with continued pain crisis, hemoglobin is 6.7 would not transfuse at this point. It did not really seem to help last time. Continue with current regimen.
[2019-02-20] MEDS: OXYCODONE HCL SR 10 MG TABLET PO SCH ×2 (09:50→21:07)
[2019-02-20] MEDS: HYDROXYUREA 500 MG CAPSULE PO SCH ×3 (09:51→18:12)
[2019-02-20] MEDS: MULTIVITAMIN TABLET PO SCH (09:51)
[2019-02-20] MEDS: FOLIC ACID 1 MG TABLET PO SCH (09:51)
[2019-02-20] MEDS: RIVAROXABAN 10 MG TABLET PO SCH (18:12)
--- NOTE | 2019-02-20 20:48 | PDOC PROGRESS REPORT ---
Subjective Progress Note for:: 02/20/19 Subjective:: Patient seen by the bedside, she is on megadoses of opioid, the clinical team lead is managing her pain., She is on 2 mg Dilaudid every 4 hours, OxyContin and also oxycodone. Reason For Visit: DIARRHEA,SICKLE CELL DISEASE Physical Exam Vital Signs: Temp Pulse Resp BP Pulse Ox 98.6 F 94 16 122/66 98 02/20/19 15:48 02/20/19 15:48 02/20/19 15:48 02/20/19 15:48 02/20/19 15:48 Intake & Output 02/19/19 02/20/19 02/21/19 06:59 06:59 06:59 Intake Total 2380 3440 1442 Output Total 260 Balance 2120 3440 1442 Weight 66.8 kg 69.8 kg General appearance: PRESENT: no acute distress Eye exam: PRESENT: PERRLA Respiratory exam: PRESENT: clear to auscultation carolyn Cardiovascular exam: PRESENT: +S1, +S2 GI/Abdominal exam: PRESENT: soft Neurological exam: PRESENT: alert Results Laboratory Results: 02/19/19 05:40 02/19/19 05:40 Impressions: Knee X-Ray 02/19/19 10:18 IMPRESSION: NO SIGNIFICANT RADIOGRAPHIC ABNORMALITY. Assessment & Plan - Diagnosis (1) Gastroenteritis Is this a current diagnosis for this admission?: Yes Plan: This is resolved (2) Sickle cell disease Qualifiers: Sickle-cell associated disorders: with unspecified crisis Qualified Code(s): D57.00 - Hb-SS disease with crisis, unspecified; D57.0 - Hb-SS disease with crisis Is this a current diagnosis for this admission?: Yes (3) Opioid dependence Is this a current diagnosis for this admission?: Yes Plan: On high dosages of opioid
[2019-02-21] MEDS: PROMETHAZINE HCL INJ 25 MG/1 ML VIAL IV PRN ×5 (03:20→20:20)
[2019-02-21] MEDS: HYDROMORPHONE HCL INJ/PF 2 MG/ML AMPULE IV PRN ×5 (03:20→20:20)
[2019-02-21] MEDS: 1/2 NORMAL SALINE 1,000 ML IV PRN ×3 (06:37→22:38)
[2019-02-21] MEDS: OXYCODONE HCL IR 5 MG TABLET PO PRN (06:37)
[2019-02-21] MEDS: GABAPENTIN 300 MG CAPSULE PO SCH ×3 (06:37→22:37)
[2019-02-21] MEDS: DIPHENHYDRAMINE HCL 25 MG CAPSULE PO PRN ×3 (07:28→16:16)
--- NOTE | 2019-02-21 09:11 | PDOC PROGRESS REPORT ---
Subjective Progress Note for:: 02/21/19 Subjective:: Pt still w/ fairly severe pain requiring continuous dosing of IV dilaudid. She has c/o of b/l hip and also R shoulder pain, I told her it probably was related to her current sickle crisis. Reason For Visit: DIARRHEA,SICKLE CELL DISEASE Physical Exam Vital Signs: Temp Pulse Resp BP Pulse Ox 99.4 F 102 H 17 119/65 92 02/20/19 23:49 02/20/19 23:49 02/20/19 23:49 02/20/19 23:49 02/20/19 23:49 Intake & Output 02/20/19 02/21/19 02/22/19 06:59 06:59 06:59 Intake Total 3440 3557 Balance 3440 3557 Weight 69.8 kg 66.6 kg General appearance: PRESENT: no acute distress, well-developed, well-nourished Head exam: PRESENT: atraumatic, normocephalic Eye exam: PRESENT: conjunctiva pink, EOMI, PERRLA. ABSENT: scleral icterus Ear exam: PRESENT: normal external ear exam Mouth exam: PRESENT: moist, tongue midline Neck exam: ABSENT: carotid bruit, JVD, lymphadenopathy, thyromegaly Respiratory exam: PRESENT: clear to auscultation carolyn. ABSENT: rales, rhonchi, wheezes Cardiovascular exam: PRESENT: RRR. ABSENT: diastolic murmur, rubs, systolic murmur Pulses: PRESENT: normal dorsalis pedis pul Vascular exam: PRESENT: normal capillary refill GI/Abdominal exam: PRESENT: normal bowel sounds, soft. ABSENT: distended, guarding, mass, organolmegaly, rebound, tenderness Rectal exam: PRESENT: deferred Extremities exam: PRESENT: full ROM. ABSENT: calf tenderness, clubbing, pedal edema Neurological exam: PRESENT: alert, awake, oriented to person, oriented to place, oriented to time, oriented to situation, CN II-XII grossly intact. ABSENT: motor sensory deficit Psychiatric exam: PRESENT: appropriate affect, normal mood. ABSENT: homicidal ideation, suicidal ideation Skin exam: PRESENT: dry, intact, warm. ABSENT: cyanosis, rash Results Laboratory Results: 02/19/19 05:40 02/19/19 05:40 Impressions: Knee X-Ray 02/19/19 10:18 IMPRESSION: NO SIGNIFICANT RADIOGRAPHIC ABNORMALITY. Status: Image reviewed by me Assessment & Plan - Diagnosis (1) Sickle cell disease Qualifiers: Sickle-cell associated disorders: with unspecified crisis Qualified Code(s): D57.00 - Hb-SS disease with crisis, unspecified; D57.0 - Hb-SS disease with crisis Is this a current diagnosis for this admission?: Yes Plan: Still severe, she probably needs a few more days of IV pain meds. - Time Time Spent with patient: 35 or more minutes - Inpatient Certification Based on my medical assessment, after consideration of the patient's c omorbidities, presenting symptoms, or acuity I expect that the services needed warrant INPATIENT care.: Yes I certify that my determination is in accordance with my understanding of Medicare's requirements for reasonable and necessary INPATIENT services [42 CFR 412.3e].: Yes Medical Necessity: Need for Pain Control
[2019-02-21] MEDS: OXYCODONE HCL SR 10 MG TABLET PO SCH ×2 (10:17→22:38)
[2019-02-21] MEDS: MULTIVITAMIN TABLET PO SCH (10:18)
[2019-02-21] MEDS: HYDROXYUREA 500 MG CAPSULE PO SCH ×3 (10:18→17:30)
[2019-02-21] MEDS: FOLIC ACID 1 MG TABLET PO SCH (10:18)
[2019-02-21] MEDS: RIVAROXABAN 10 MG TABLET PO SCH (17:30)
--- NOTE | 2019-02-21 18:12 | PDOC PROGRESS REPORT ---
Subjective Progress Note for:: 02/21/19 Subjective:: Patient seen by the bedside no new complaints Reason For Visit: DIARRHEA,SICKLE CELL DISEASE Physical Exam Vital Signs: Temp Pulse Resp BP Pulse Ox 98.9 F 87 16 93/56 L 95 02/21/19 12:25 02/21/19 12:25 02/21/19 12:25 02/21/19 12:25 02/21/19 12:25 Intake & Output 02/20/19 02/21/19 02/22/19 06:59 06:59 06:59 Intake Total 3440 3557 1463 Balance 3440 3557 1463 Weight 69.8 kg 66.6 kg General appearance: PRESENT: no acute distress Eye exam: PRESENT: PERRLA Respiratory exam: PRESENT: clear to auscultation carolyn Cardiovascular exam: PRESENT: +S1, +S2 GI/Abdominal exam: PRESENT: soft Results Laboratory Results: 02/19/19 05:40 02/19/19 05:40 Impressions: Knee X-Ray 02/19/19 10:18 IMPRESSION: NO SIGNIFICANT RADIOGRAPHIC ABNORMALITY. Assessment & Plan - Diagnosis (1) Gastroenteritis Is this a current diagnosis for this admission?: Yes Plan: This is resolved (2) Sickle cell disease Qualifiers: Sickle-cell associated disorders: with unspecified crisis Qualified Code(s): D57.00 - Hb-SS disease with crisis, unspecified; D57.0 - Hb-SS disease with crisis Is this a current diagnosis for this admission?: Yes (3) Opioid dependence Is this a current diagnosis for this admission?: Yes
[2019-02-22] MEDS: PROMETHAZINE HCL INJ 25 MG/1 ML VIAL IV PRN ×6 (00:44→22:09)
[2019-02-22] MEDS: DIPHENHYDRAMINE HCL 25 MG CAPSULE PO PRN ×5 (00:44→18:19)
[2019-02-22] MEDS: HYDROMORPHONE HCL INJ/PF 2 MG/ML AMPULE IV PRN ×6 (00:44→22:06)
[2019-02-22] MEDS: OXYCODONE HCL IR 5 MG TABLET PO PRN (02:37)
[2019-02-22] MEDS: GABAPENTIN 300 MG CAPSULE PO SCH ×3 (05:17→22:05)
[2019-02-22] MEDS: 1/2 NORMAL SALINE 1,000 ML IV PRN ×2 (08:28→16:15)
[2019-02-22] MEDS: OXYCODONE HCL SR 10 MG TABLET PO SCH ×2 (10:07→22:05)
[2019-02-22] MEDS: MULTIVITAMIN TABLET PO SCH (10:07)
[2019-02-22] MEDS: FOLIC ACID 1 MG TABLET PO SCH (10:08)
[2019-02-22] MEDS: HYDROXYUREA 500 MG CAPSULE PO SCH ×3 (10:08→18:19)
[2019-02-22 13:18] LABS: CREATINE KINASE MB < 0.22 ng/mL (<4.55); TROPONIN I < 0.012 ng/mL
--- NOTE | 2019-02-22 14:20 | EKG REPORT ---
SEVERITY:- NORMAL ECG - SINUS RHYTHM : Confirmed by: Keyla Alexander 22-Feb-2019 14:19:32
--- NOTE | 2019-02-22 14:49 | PDOC PROGRESS REPORT ---
Subjective Progress Note for:: 02/22/19 Subjective:: She was seen by the bedside, complaining of chest pain, the pain is right-sided, radiates to the right upper extremity, the characteristic of the pain is not consistent with cardiac chest pain unlikely to be from pulmonary embolism patient on anticoagulation chronically. The twelve-lead EKG was sinus rhythm there is no acute ST-T wave change, Reason For Visit: DIARRHEA,SICKLE CELL DISEASE Physical Exam Vital Signs: Temp Pulse Resp BP Pulse Ox 99.2 F 88 14 108/67 93 02/22/19 11:34 02/22/19 11:34 02/22/19 11:34 02/22/19 11:34 02/22/19 11:34 Intake & Output 02/21/19 02/22/19 02/23/19 06:59 06:59 06:59 Intake Total 3557 3583 462 Output Total 600 Balance 3557 2983 462 Weight 66.6 kg 88.8 kg General appearance: PRESENT: no acute distress Head exam: PRESENT: atraumatic, normocephalic Eye exam: PRESENT: conjunctiva pink, EOMI, PERRLA Mouth exam: PRESENT: moist, tongue midline Neck exam: PRESENT: full ROM Respiratory exam: PRESENT: clear to auscultation carolyn Cardiovascular exam: PRESENT: RRR. ABSENT: diastolic murmur, rubs, systolic murmur Pulses: PRESENT: normal dorsalis pedis pul, +2 pedal pulses bilateral Vascular exam: PRESENT: normal capillary refill GI/Abdominal exam: PRESENT: normal bowel sounds, soft Rectal exam: PRESENT: deferred Neurological exam: PRESENT: alert, CN II-XII grossly intact Psychiatric exam: PRESENT: appropriate affect, normal mood Skin exam: PRESENT: dry, intact, warm. ABSENT: cyanosis, rash Results Laboratory Results: 02/19/19 05:40 02/19/19 05:40 02/22/19 02/22/19 12:15 12:15 Creatine Kinase < 20 L CK-MB (CK-2) < 0.22 Troponin I < 0.012 Impressions: Knee X-Ray 02/19/19 10:18 IMPRESSION: NO SIGNIFICANT RADIOGRAPHIC ABNORMALITY. Assessment & Plan - Diagnosis (1) Gastroenteritis Is this a current diagnosis for this admission?: Yes (2) Sickle cell disease Qualifiers: Sickle-cell associated disorders: with unspecified crisis Qualified Code(s): D57.00 - Hb-SS disease with crisis, unspecified; D57.0 - Hb-SS disease with crisis Is this a current diagnosis for this admission?: Yes (3) Opioid dependence Is this a current diagnosis for this admission?: Yes (4) Chest pain Qualifiers: Chest pain type: unspecified Qualified Code(s): R07.9 - Chest pain, unspecified Is this a current diagnosis for this admission?: Yes Plan: The chest pain is most likely from musculoskeletal system
--- NOTE | 2019-02-22 15:07 | RADIOLOGY REPORT (SQ) ---
EXAM DESCRIPTION: RIBS RIGHT W/PA CHEST COMPLETED DATE/TIME: 02/22/2019 2:53 pm REASON FOR STUDY: chest pain COMPARISON: Chest x-ray dated 02/11/2019 TECHNIQUE: Frontal view of the chest and additional views of the right ribs acquired. NUMBER OF VIEWS: Three view. LIMITATIONS: None. FINDINGS: FRONTAL CXR: No pneumothorax. No pleural effusion. No atelectasis or infiltrates. Infus e-A-Port is in place. RIBS: No displaced rib fractures. No lytic or blastic bony lesions. OTHER: No other significant finding. IMPRESSION: NO PNEUMOTHORAX. NO DISPLACED RIB FRACTURES. COMMENT: SITE OF TRAUMA/COMPLAINT MARKED/STAMP COMPLETED: NO. TECHNICAL DOCUMENTATION: JOB ID: [id number] [employer]- All Rights Reserved Reading location - IP/workstation name: [email or web address]
[2019-02-22] MEDS: RIVAROXABAN 10 MG TABLET PO SCH (18:19)
[2019-02-23] MEDS: 1/2 NORMAL SALINE 1,000 ML IV PRN ×3 (00:30→18:51)
[2019-02-23 00:54] LABS: CREATINE KINASE MB < 0.22 ng/mL (<4.55); TROPONIN I < 0.012 ng/mL
[2019-02-23] MEDS: HYDROMORPHONE HCL INJ/PF 2 MG/ML AMPULE IV PRN ×6 (02:15→22:48)
[2019-02-23] MEDS: PROMETHAZINE HCL INJ 25 MG/1 ML VIAL IV PRN ×6 (02:15→22:48)
[2019-02-23] MEDS: GABAPENTIN 300 MG CAPSULE PO SCH ×3 (06:24→21:33)
[2019-02-23 08:12] LABS: CREATINE KINASE MB < 0.22 ng/mL (<4.55); TROPONIN I < 0.012 ng/mL
[2019-02-23] MEDS: OXYCODONE HCL SR 10 MG TABLET PO SCH ×2 (10:40→21:33)
[2019-02-23] MEDS: DIPHENHYDRAMINE HCL 25 MG CAPSULE PO PRN ×3 (10:40→18:49)
[2019-02-23] MEDS: HYDROXYUREA 500 MG CAPSULE PO SCH ×3 (10:40→17:15)
[2019-02-23] MEDS: FOLIC ACID 1 MG TABLET PO SCH (10:40)
[2019-02-23] MEDS: MULTIVITAMIN TABLET PO SCH (10:40)
--- NOTE | 2019-02-23 17:11 | PDOC PROGRESS REPORT ---
Subjective Progress Note for:: 02/23/19 Subjective:: She was seen by the bedside no new complaints Reason For Visit: DIARRHEA,SICKLE CELL DISEASE Physical Exam Vital Signs: Temp Pulse Resp BP Pulse Ox 99.0 F 83 18 102/64 94 02/23/19 16:41 02/23/19 16:41 02/23/19 16:41 02/23/19 16:41 02/23/19 16:41 Intake & Output 02/22/19 02/23/19 02/24/19 06:59 06:59 06:59 Intake Total 3583 3595 1000 Output Total 600 2600 Balance 2983 995 1000 Weight 88.8 kg General appearance: PRESENT: no acute distress Eye exam: PRESENT: PERRLA Respiratory exam: PRESENT: clear to auscultation carolyn Cardiovascular exam: PRESENT: +S1, +S2 GI/Abdominal exam: PRESENT: soft Results Laboratory Results: 02/19/19 05:40 02/19/19 05:40 02/23/19 15:00 Stool for White Cells NO WBCs SEEN 02/22/19 02/22/19 02/23/19 12:15 12:15 00:05 Creatine Kinase < 20 L < 20 L CK-MB (CK-2) < 0.22 Troponin I < 0.012 02/23/19 02/23/19 02/23/19 00:05 07:15 07:15 Creatine Kinase < 20 L CK-MB (CK-2) < 0.22 < 0.22 Troponin I < 0.012 < 0.012 Impressions: Knee X-Ray 02/19/19 10:18 IMPRESSION: NO SIGNIFICANT RADIOGRAPHIC ABNORMALITY. Ribs w/Chest X-Ray 02/22/19 00:00 IMPRESSION: NO PNEUMOTHORAX. NO DISPLACED RIB FRACTURES. Assessment & Plan - Diagnosis (1) Gastroenteritis Is this a current diagnosis for this admission?: Yes Plan: This is resolved (2) Sickle cell disease Qualifiers: Sickle-cell associated disorders: with unspecified crisis Qualified Code(s): D57.00 - Hb-SS disease with crisis, unspecified; D57.0 - Hb-SS disease with crisis Is this a current diagnosis for this admission?: Yes (3) Opioid dependence Is this a current diagnosis for this admission?: Yes Plan: On high dosages of opioid (4) Chest pain Qualifiers: Chest pain type: unspecified Qualified Code(s): R07.9 - Chest pain, unspecified Is this a current diagnosis for this admission?: Yes Plan: The chest pain is most likely from musculoskeletal system
[2019-02-23] MEDS: RIVAROXABAN 10 MG TABLET PO SCH (17:15)
[2019-02-23] MEDS ORDERED: NORMAL SALINE 1000 ML 1,000 ML with POTASSIUM CHLORIDE 20 MEQ, MAGNESIUM SULFATE 8 MEQ,... IV SCH ×5 (19:30)
[2019-02-24] MEDS: PROMETHAZINE HCL INJ 25 MG/1 ML VIAL IV PRN ×5 (02:52→20:00)
[2019-02-24] MEDS: HYDROMORPHONE HCL INJ/PF 2 MG/ML AMPULE IV PRN ×5 (02:52→20:00)
[2019-02-24] MEDS: 1/2 NORMAL SALINE 1,000 ML IV PRN ×3 (02:57→20:04)
[2019-02-24] MEDS: GABAPENTIN 300 MG CAPSULE PO SCH ×3 (06:05→22:47)
[2019-02-24] MEDS: FOLIC ACID 1 MG TABLET PO SCH (10:10)
[2019-02-24] MEDS: HYDROXYUREA 500 MG CAPSULE PO SCH ×3 (10:10→17:44)
[2019-02-24] MEDS: OXYCODONE HCL SR 10 MG TABLET PO SCH ×2 (10:10→22:46)
[2019-02-24] MEDS: MULTIVITAMIN TABLET PO SCH (10:10)
--- NOTE | 2019-02-24 10:29 | PDOC PROGRESS REPORT ---
Subjective Progress Note for:: 02/24/19 Subjective:: Patient is feeling bit better, discussed with her to take more of the oral oxycodone and see if we can wean off the IV pain medication in the next 24 to 48 hours. Hopeful discharge for Tuesday if that is possible. Reason For Visit: DIARRHEA,SICKLE CELL DISEASE Physical Exam Vital Signs: Temp Pulse Resp BP Pulse Ox 99.1 F 88 15 104/59 L 95 02/23/19 20:40 02/23/19 20:40 02/23/19 20:40 02/23/19 20:40 02/23/19 20:40 Intake & Output 02/23/19 02/24/19 02/25/19 06:59 06:59 06:59 Intake Total 3595 4580 Output Total 2600 1800 Balance 995 2780 General appearance: PRESENT: no acute distress, well-developed, well-nourished Head exam: PRESENT: atraumatic, normocephalic Eye exam: PRESENT: conjunctiva pink, EOMI, PERRLA. ABSENT: scleral icterus Ear exam: PRESENT: normal external ear exam Mouth exam: PRESENT: moist, tongue midline Neck exam: ABSENT: carotid bruit, JVD, lymphadenopathy, thyromegaly Respiratory exam: PRESENT: clear to auscultation carolyn. ABSENT: rales, rhonchi, wheezes Cardiovascular exam: PRESENT: RRR. ABSENT: diastolic murmur, rubs, systolic murmur Pulses: PRESENT: normal dorsalis pedis pul Vascular exam: PRESENT: normal capillary refill GI/Abdominal exam: PRESENT: normal bowel sounds, soft. ABSENT: distended, guarding, mass, organolmegaly, rebound, tenderness Rectal exam: PRESENT: deferred Extremities exam: PRESENT: full ROM. ABSENT: calf tenderness, clubbing, pedal edema Neurological exam: PRESENT: alert, awake, oriented to person, oriented to place, oriented to time, oriented to situation, CN II-XII grossly intact. ABSENT: motor sensory deficit Psychiatric exam: PRESENT: appropriate affect, normal mood. ABSENT: homicidal ideation, suicidal ideation Skin exam: PRESENT: dry, intact, warm. ABSENT: cyanosis, rash Results Laboratory Results: 02/19/19 05:40 02/19/19 05:40 02/23/19 15:00 Stool for White Cells NO WBCs SEEN 02/22/19 02/22/19 02/23/19 12:15 12:15 00:05 Creatine Kinase < 20 L < 20 L CK-MB (CK-2) < 0.22 Troponin I < 0.012 02/23/19 02/23/19 02/23/19 00:05 07:15 07:15 Creatine Kinase < 20 L CK-MB (CK-2) < 0.22 < 0.22 Troponin I < 0.012 < 0.012 Impressions: Knee X-Ray 02/19/19 10:18 IMPRESSION: NO SIGNIFICANT RADIOGRAPHIC ABNORMALITY. Ribs w/Chest X-Ray 02/22/19 00:00 IMPRESSION: NO PNEUMOTHORAX. NO DISPLACED RIB FRACTURES. Assessment & Plan - Diagnosis (1) Sickle cell disease Qualifiers: Sickle-cell associated disorders: with unspecified crisis Qualified Code(s): D57.00 - Hb-SS disease with crisis, unspecified; D57.0 - Hb-SS disease with crisis Is this a current diagnosis for this admission?: Yes Plan: Improving, plan as above, no changes today
[2019-02-24] MEDS: DIPHENHYDRAMINE HCL 25 MG CAPSULE PO PRN ×2 (11:53→16:00)
--- NOTE | 2019-02-24 13:41 | PDOC PROGRESS REPORT ---
Subjective Progress Note for:: 02/24/19 Subjective:: Patient reported persistent right sided chest pain. No palpitation or difficulty with breathing. Remain on pain management regimen with antiemetic. Reason For Visit: DIARRHEA,SICKLE CELL DISEASE Physical Exam Vital Signs: Temp Pulse Resp BP Pulse Ox 99.1 F 88 15 104/59 L 95 02/23/19 20:40 02/23/19 20:40 02/23/19 20:40 02/23/19 20:40 02/23/19 20:40 Intake & Output 02/23/19 02/24/19 02/25/19 06:59 06:59 06:59 Intake Total 3595 4580 1000 Output Total 2600 1800 Balance 995 2780 1000 General appearance: PRESENT: mild distress - reported regarding her chronic pain Head exam: PRESENT: atraumatic, normocephalic Eye exam: PRESENT: conjunctiva pink, scleral icterus - slight Ear exam: PRESENT: normal external ear exam Mouth exam: PRESENT: moist Respiratory exam: PRESENT: clear to auscultation carolyn Cardiovascular exam: PRESENT: RRR. ABSENT: diastolic murmur, rubs, systolic murmur Vascular exam: ABSENT: pallor GI/Abdominal exam: PRESENT: normal bowel sounds, soft. ABSENT: tenderness Extremities exam: ABSENT: pedal edema Musculoskeletal exam: PRESENT: deformity Neurological exam: PRESENT: alert, awake, oriented to person, oriented to place, oriented to time, oriented to situation, CN II-XII grossly intact. ABSENT: motor sensory deficit Psychiatric exam: PRESENT: appropriate affect, normal mood. ABSENT: homicidal ideation, suicidal ideation Skin exam: PRESENT: dry, warm Results Laboratory Results: 02/19/19 05:40 02/19/19 05:40 02/23/19 15:00 Stool for White Cells NO WBCs SEEN 02/22/19 02/22/19 02/23/19 12:15 12:15 00:05 Creatine Kinase < 20 L < 20 L CK-MB (CK-2) < 0.22 Troponin I < 0.012 02/23/19 02/23/19 02/23/19 00:05 07:15 07:15 Creatine Kinase < 20 L CK-MB (CK-2) < 0.22 < 0.22 Troponin I < 0.012 < 0.012 Impressions: Knee X-Ray 02/19/19 10:18 IMPRESSION: NO SIGNIFICANT RADIOGRAPHIC ABNORMALITY. Ribs w/Chest X-Ray 02/22/19 00:00 IMPRESSION: NO PNEUMOTHORAX. NO DISPLACED RIB FRACTURES. Assessment & Plan - Diagnosis (1) Sickle cell pain crisis Is this a current diagnosis for this admission?: Yes Plan: Maintain on current medication management. (2) Hb-SS disease with vaso-occlusive crisis Is this a current diagnosis for this admission?: Yes Plan: Maintain on current medication management (3) Chronic pain syndrome Is this a current diagnosis for this admission?: Yes Plan: Maintain on current medication management - Time Time Spent with patient: 25-34 minutes Medications reviewed and adjusted accordingly: Yes Anticipated discharge: Home with Homehealth Within: Other - Inpatient Certification Based on my medical assessment, after consideration of the patient's comorbidities, presenting symptoms, or acuity I expect that the services needed warrant INPATIENT care.: Yes I certify that my determination is in accordance with my understanding of [facility]'s requirements for reasonable and necessary INPATIENT services [42 CFR 412.3e].: Yes Medical Necessity: Significant Comorbidiites Make Outpatient Treatment Too Risky, Need Close Monitoring Due to Risk of Patient Decompensation, Need For IV Fluids, Need for Pain Control, Risk of Complication if Not Cared For in Hospital, Risk of Diagnosis Which Will Require Inpatient Eval/Care/Monitoring Post Hospital Care: D/C Record Tester Documentation - Plan Summary Plan Summary: Maintain on current medication management
[2019-02-24] MEDS: RIVAROXABAN 10 MG TABLET PO SCH (17:44)
[2019-02-25] MEDS: PROMETHAZINE HCL INJ 25 MG/1 ML VIAL IV PRN ×6 (00:24→22:01)
[2019-02-25] MEDS: HYDROMORPHONE HCL INJ/PF 2 MG/ML AMPULE IV PRN ×6 (00:25→22:01)
[2019-02-25] MEDS: GABAPENTIN 300 MG CAPSULE PO SCH ×3 (05:07→22:01)
[2019-02-25] MEDS: 1/2 NORMAL SALINE 1,000 ML IV PRN ×3 (05:08→22:00)
[2019-02-25] MEDS: HYDROXYUREA 500 MG CAPSULE PO SCH ×3 (09:15→17:59)
[2019-02-25] MEDS: FOLIC ACID 1 MG TABLET PO SCH (09:15)
[2019-02-25] MEDS: MULTIVITAMIN TABLET PO SCH (09:15)
[2019-02-25] MEDS: OXYCODONE HCL SR 10 MG TABLET PO SCH ×2 (09:16→22:00)
--- NOTE | 2019-02-25 09:52 | PDOC PROGRESS REPORT ---
Subjective Progress Note for:: 02/25/19 Subjective:: Patient denied any difficulty with breathing. She continue to report right sided chest pain to movement and palpation. No reported fever or chills. She reported lower extremities muscle cramps. Remain on pain management regimen with antiemetic therapy. Reason For Visit: DIARRHEA,SICKLE CELL DISEASE Physical Exam Vital Signs: Temp Pulse Resp BP Pulse Ox 99.1 F 78 16 110/59 L 96 02/25/19 08:42 02/25/19 08:42 02/25/19 08:42 02/25/19 08:42 02/25/19 08:42 Intake & Output 02/24/19 02/25/19 02/26/19 06:59 06:59 06:59 Intake Total 4580 5822 Output Total 1800 2400 Balance 2780 3422 Weight 70.2 kg Physical Exam: General appearance: PRESENT: mild distress - reported regarding her chronic pain Head exam: PRESENT: atraumatic, normocephalic Eye exam: PRESENT: conjunctiva pink, scleral icterus - slight. ABSENT: Pallor. Ear exam: PRESENT: normal external ear exam Mouth exam: PRESENT: moist Respiratory exam: PRESENT: clear to auscultation carolyn Cardiovascular exam: PRESENT: RRR. ABSENT: diastolic murmur, rubs, systolic murmur GI/Abdominal exam: PRESENT: normal bowel sounds, soft. ABSENT: tenderness Extremities exam: ABSENT: pedal edema Musculoskeletal exam: PRESENT: deformity Neurological exam: PRESENT: alert, awake, oriented to person, oriented to place, oriented to time, oriented to situation, CN II-XII grossly intact. ABSENT: motor sensory deficit Psychiatric exam: PRESENT: appropriate affect, normal mood. ABSENT: homicidal ideation, suicidal ideation Skin exam: PRESENT: dry, warm Results Laboratory Results: 02/19/19 05:40 02/19/19 05:40 02/22/19 02/22/19 02/23/19 12:15 12:15 00:05 Creatine Kinase < 20 L < 20 L CK-MB (CK-2) < 0.22 Troponin I < 0.012 02/23/19 02/23/19 02/23/19 00:05 07:15 07:15 Creatine Kinase < 20 L CK-MB (CK-2) < 0.22 < 0.22 Troponin I < 0.012 < 0.012 Impressions: Knee X-Ray 02/19/19 10:18 IMPRESSION: NO SIGNIFICANT RADIOGRAPHIC ABNORMALITY. Ribs w/Chest X-Ray 02/22/19 00:00 IMPRESSION: NO PNEUMOTHORAX. NO DISPLACED RIB FRACTURES. Assessment & Plan - Diagnosis (1) Sickle cell pain crisis Is this a current diagnosis for this admission?: Yes (2) Hb-SS disease with vaso-occlusive crisis Is this a current diagnosis for this admission?: Yes (3) Chronic pain syndrome Is this a current diagnosis for this admission?: Yes - Time Time Spent with patient: 25-34 minutes Medications reviewed and adjusted accordingly: Yes Anticipated discharge: Home with Homehealth Within: Other - Inpatient Certification Based on my medical assessment, after consideration of the patient's comorbidities, presenting symptoms, or acuity I expect that the services needed warrant INPATIENT care.: Yes I certify that my determination is in accordance with my understanding of Medicare's requirements for reasonable and necessary INPATIENT services [42 CFR 412.3e].: Yes Medical Necessity: Significant Comorbidiites Make Outpatient Treatment Too Risky, Need Close Monitoring Due to Risk of Patient Decompensation, Need For IV Fluids, Need For Continuous Telemetry Monitoring, Need for Pain Control, Risk of Complication if Not Cared For in Hospital, Risk of Diagnosis Which Will Require Inpatient Eval/Care/Monitoring Post Hospital Care: 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
[2019-02-25] MEDS: RIVAROXABAN 10 MG TABLET PO SCH (17:59)
[2019-02-26] MEDS: HYDROMORPHONE HCL INJ/PF 2 MG/ML AMPULE IV PRN ×4 (02:15→15:24)
[2019-02-26] MEDS: PROMETHAZINE HCL INJ 25 MG/1 ML VIAL IV PRN ×4 (02:16→15:23)
[2019-02-26] MEDS: 1/2 NORMAL SALINE 1,000 ML IV PRN (06:09)
[2019-02-26] MEDS: GABAPENTIN 300 MG CAPSULE PO SCH ×2 (06:09→13:24)
--- NOTE | 2019-02-26 08:11 | PDOC PROGRESS REPORT ---
Subjective Progress Note for:: 02/26/19 Subjective:: Patient still complains of pain, but would like to try to go home to get some sleep. Her knee is feeling better. She is able to walk in singh. ROS: nausea, no constipation. Chest pain unchanged. No dyspnea. Reason For Visit: DIARRHEA,SICKLE CELL DISEASE Physical Exam Vital Signs: Temp Pulse Resp BP Pulse Ox 99.0 F 84 17 109/54 L 97 02/26/19 00:37 02/26/19 00:37 02/26/19 00:37 02/26/19 00:37 02/26/19 00:37 Intake & Output 02/25/19 02/26/19 02/27/19 06:59 06:59 06:59 Intake Total 5822 4500 Output Total 2400 1900 Balance 3422 2600 Weight 70.2 kg 69.1 kg General appearance: PRESENT: no acute distress, well-developed, well-nourished Head exam: PRESENT: normocephalic Neurological exam: PRESENT: alert, awake Psychiatric exam: PRESENT: appropriate affect Skin exam: PRESENT: normal color Results Laboratory Results: 02/19/19 05:40 02/19/19 05:40 02/23/19 15:00 Stool - Stool - Final 02/22/19 02/22/19 02/23/19 12:15 12:15 00:05 Creatine Kinase < 20 L < 20 L CK-MB (CK-2) < 0.22 Troponin I < 0.012 02/23/19 02/23/19 02/23/19 00:05 07:15 07:15 Creatine Kinase < 20 L CK-MB (CK-2) < 0.22 < 0.22 Troponin I < 0.012 < 0.012 Impressions: Knee X-Ray 02/19/19 10:18 IMPRESSION: NO SIGNIFICANT RADIOGRAPHIC ABNORMALITY. Ribs w/Chest X-Ray 02/22/19 00:00 IMPRESSION: NO PNEUMOTHORAX. NO DISPLACED RIB FRACTURES. Assessment & Plan - Diagnosis (1) Gastroenteritis Is this a current diagnosis for this admission?: Yes (2) Intractable vomiting Qualifiers: Vomiting type: unspecified Nausea presence: with nausea Qualified Code(s): R11.2 - Nausea with vomiting, unspecified Is this a current diagnosis for this admission?: Yes (3) Sickle cell pain crisis Is this a current diagnosis for this admission?: Yes (4) Knee swelling Is this a current diagnosis for this admission?: Yes - Plan Summary Plan Summary: Ok for discharge today from my standpoint. I have ordered labs as none done for a few days. I have already written all narcotic Rx for her. My office will arrange follow-up and anything else needed as outpatient.
--- NOTE | 2019-02-26 08:14 | PDOC DISCHARGE SUMMARY ---
General - Admit/Disc Date/PCP Admission Date/Primary Care Provider: 02/17/19 20:14 HOMA BARRAZA MD Discharge Date: 02/26/19 - Discharge Diagnosis (1) Gastroenteritis Is this a current diagnosis for this admission?: Yes (2) Sickle cell disease Is this a current diagnosis for this admission?: Yes (3) Opioid dependence Is this a current diagnosis for this admission?: Yes (4) Chest pain Is this a current diagnosis for this admission?: Yes (5) Sickle cell anemia with crisis Is this a current diagnosis for this admission?: Yes - Additional Information Resuscitation Status: Full Code Home Medications: Epoetin Federico [Procrit Inj 40,000 Unit/1 ml Vial (Renal)] 60,000 unit SQ FR 11/20/18 Folic Acid [Folvite 1 mg Tablet] 1 mg PO DAILY 11/20/18 Gabapentin [Neurontin 300 mg Capsule] 300 mg PO Q8 11/20/18 Hydroxyurea [Hydrea 500 mg Capsule] 500 mg PO TID 11/20/18 Multivitamin [Multiple Vitamins] 1 tab PO DAILY 11/20/18 Oxycodone HCl [Oxycodone HCl 10 MG Tablet] 10 mg PO Q6HP PRN 11/20/18 Oxycodone HCl [Oxycontin] 30 mg PO Q12 11/20/18 Promethazine HCl [Phenergan 25 mg Tablet] 25 mg PO Q6HP PRN 11/20/18 Rivaroxaban [Xarelto] 20 mg PO QPM 11/20/18 History of Present Illness History of Present Illness: WILLIE ALAN is a 49 year old female, She has sickle cell disease, opioid dependence, she was just discharged from this hospital on 01/20/2019 after almost 3 weeks of inpatient care, she stated that she had diarrhea and vomiting for a day she was not particularly interested about coming to the emergency room for evaluation of the diarrhea or vomiting but she decided to come to the ER when she started having pain this was about 2 days ago, the ER provider gave me a call and we discussed case we concluded that there was no need to admit and that she should follow with me in the office the following day but she did not come up to see him in the office she came to emergency room again last night with the same complaint the ER physician felt she probably needed to be admitted for hydration. She has a very strong penchant for opioid usage, immediately she came in yesterday she was requesting for IV Dilaudid despite already on p.o. oxycodone Hospital Course Hospital Course: Patient was discharged originally on 02/16/2019 but she refused to go home, she says she was having pain. Dr. Martinez was on-call the weekend she was discharged she requested to be seen by the front office help Dr. Viveros, she was treated with IV dose of Dilaudid 2 mg IV every 4 hours in combination with OxyContin and oxycodone. This has been a pattern for the last many years she has become highly dependent on opioid. She states another 7 days on continuous opioid therapy including Dilaudid 2 mg IV 4 hours, OxyContin and oxycodone pain management was by front office help Dr. Viveros. The initial reason for admission was diarrhea which has subsided 24 hours after she presented, before this admission she was just discharged less than a week week ago after she stayed for 3 weeks in the hospital, on that admission she also required heavy dose of opioid. She also was treated with IV fluid Physical Exam Vital Signs: Temp Pulse Resp BP Pulse Ox 99.0 F 84 17 109/54 L 97 02/26/19 00:37 02/26/19 00:37 02/26/19 00:37 02/26/19 00:37 02/26/19 00:37 Intake & Output 02/25/19 02/26/19 02/27/19 06:59 06:59 06:59 Intake Total 5822 4500 Output Total 2400 1900 Balance 3422 2600 Weight 70.2 kg 69.1 kg General appearance: PRESENT: no acute distress Eye exam: PRESENT: PERRLA Respiratory exam: PRESENT: clear to auscultation carolyn Cardiovascular exam: PRESENT: +S1, +S2 GI/Abdominal exam: PRESENT: soft Neurological exam: PRESENT: alert Results Laboratory Results: 02/19/19 05:40 02/19/19 05:40 02/23/19 15:00 Stool - Stool - Final 02/22/19 02/22/19 02/23/19 12:15 12:15 00:05 Creatine Kinase < 20 L < 20 L CK-MB (CK-2) < 0.22 Troponin I < 0.012 02/23/19 02/23/19 02/23/19 00:05 07:15 07:15 Creatine Kinase < 20 L CK-MB (CK-2) < 0.22 < 0.22 Troponin I < 0.012 < 0.012 Impressions: Knee X-Ray 02/19/19 10:18 IMPRESSION: NO SIGNIFICANT RADIOGRAPHIC ABNORMALITY. Ribs w/Chest X-Ray 02/22/19 00:00 IMPRESSION: NO PNEUMOTHORAX. NO DISPLACED RIB FRACTURES. Qualifiers - * PATIENT BEING DISCHARGED WITH ANY OF THE FOLLOWING DIAGNOSIS: No VTE patient discharged on overlapping Therapy?: No Reason(s) for not prescribing Overlap Therapy:: Not indicated Stroke Pt being discharged on Anti-thrombolytic therapy?: No Reason(s) for not prescribing Anti-thrombolytic therapy:: Not indicated Stroke Pt being discharged on Anti-coagulation therapy?: No Reason(s) for not prescribing Anti-coagulation therapy:: Not indicated Stroke Pt being discharged on Statins?: No Reason(s) for not prescribing Statins therapy:: Not indicated ME Pt being discharged on Aspirin therapy?: No Reason(s) for not prescribing Aspirin therapy:: Not indicated ME Pt being discharged on Statins?: No Reason(s) for not prescribing Statin therapy:: Not indicated ME Pt discharged ACEI/ARBS?: No Reason(s) for not prescribing ACEI/ARBS:: Not indicated Acute Heart Failure - Is this a Heart Failure Patient?: No Follow-up Appointment scheduled within 7 days?: Yes
[2019-02-26] MEDS: FOLIC ACID 1 MG TABLET PO SCH (09:05)
[2019-02-26] MEDS: MULTIVITAMIN TABLET PO SCH (09:05)
[2019-02-26] MEDS: OXYCODONE HCL SR 10 MG TABLET PO SCH (09:05)
[2019-02-26] MEDS: HYDROXYUREA 500 MG CAPSULE PO SCH ×3 (09:05→17:25)
[2019-02-26 13:12] LABS: HEMATOCRIT 17.6 % (36.0-47.0); MEAN CORPUSCULAR HEMOGLOBIN 40.9 pg (27.0-33.4); MEAN CORPUSCULAR HGB CONC 35.2 g/dL (32.0-36.0); MEAN CORPUSCULAR VOLUME 116 fl (80-97); PLATELET COUNT 229 10^3/uL (150-450); RED BLOOD COUNT 1.52 10^6/uL (3.72-5.28); RED CELL DISTRIBUTION WIDTH 30.6 % (11.5-14.0); WHITE BLOOD COUNT 3.8 10^3/uL (4.0-10.5)
[2019-02-26 13:28] LABS: HEMOGLOBIN 6.2 g/dL (12.0-15.5)
[2019-02-26 13:32] LABS: ALKALINE PHOSPHATASE 132 U/L (38-126); ANION GAP 8 (5-19); ASPARTATE AMINO TRANSFERASE 81 U/L (14-36); BILIRUBIN,DIRECT 0.2 mg/dL (0.0-0.4); BILIRUBIN,TOTAL 2.8 mg/dL (0.2-1.3); BLOOD UREA NITROGEN 7 mg/dL (7-20); CALCIUM 8.9 mg/dL (8.4-10.2); CARBON DIOXIDE 26 mmol/L (22-30); CHLORIDE 105 mmol/L (98-107); GLUCOSE 105 mg/dL (75-110); POTASSIUM 4.1 mmol/L (3.6-5.0); TOTAL PROTEIN 6.9 g/dL (6.3-8.2)
[2019-02-26 13:40] LABS: ABSOLUTE LYMPHOCYTES# (MANUAL) 1.9 10^3/uL (0.5-4.7); ABSOLUTE MONOCYTES # (MANUAL) 0.3 10^3/uL (0.1-1.4); BASOPHILS % (MANUAL) 0 % (0-2); EOSINOPHILS % (MANUAL) 6 % (0-6); LYMPHOCYTES % (MANUAL) 50 % (13-45); MONOCYTES % (MANUAL) 9 % (3-13); NUCLEATED RED BLOOD CELLS 49 /100 WBC (0); SEGMENTED NEUTROPHILS % (MAN) 35 % (42-78); TOTAL CELLS COUNTED 100
[2019-02-26 13:44] LABS: TOXIC GRANULATION 1+
[2019-02-26 13:45] LABS: ANISOCYTOSIS 4+; OVALOCYTES SLIGHT; POIKILOCYTOSIS 1+; POLYCHROMASIA 1+
[2019-02-26 13:46] LABS: HOWELL-JOLLY BODIES PRESENT; PAPPENHEIMER BODIES PRESENT; PLATELET COMMENT ADEQUATE; SCHISTOCYTES 1+; SICKLE RED CELLS SLIGHT; TARGET CELLS 1+
[2019-02-26] MEDS: RIVAROXABAN 10 MG TABLET PO SCH (17:25)
[2019-02-26 17:27] VITALS: BP 111/63
== END 2019-02-26 18:26 | disposition home or self-care (01) | DRG 391 ==
LOC: ER 18:14 → EH 21:02 → 5 22:55 → OBSVTOIN 02-17 20:14
PROVIDERS: ADMIT Internal Medicine; ATTEND Internal Medicine
DX: K52.9 Noninfective gastroenteritis and colitis, unspecified (principal); D57.00 Hb-SS disease with crisis, unspecified; F11.20 Opioid dependence, uncomplicated; G89.4 Chronic pain syndrome; E86.0 Dehydration; E87.6 Hypokalemia; R07.89 Other chest pain; R11.10 Vomiting, unspecified; Z86.14 Personal history of Methicillin resistant Staphylococcus aureus infection; Z79.01 Long term (current) use of anticoagulants; Z79.899 Other long term (current) drug therapy
CPT/HCPCS: 36415; 80048; 80053; 81001; 82272; 82550; 82553; 83615; 84484; 85025; 85045; 87045; 87205; 87493; 89055; 93005; 93010; 96361; 96365; 96375; 96376; 99285; G0378; J1170; J1642; J2405; J2550; J3480; J7030

== ENCOUNTER 2019-03-24 16:40 | Emergency (ER) | payer MEDICAID ==
--- NOTE | 2019-03-24 17:02 | ER Document Report ---
ED Medical Screen (RME) - General Chief Complaint: Sickle Cell Crisis Stated Complaint: SICKLE CELL CRISIS Time Seen by Provider: 03/24/19 17:00 Primary Care Provider: HOMA BARRAZA MD [Primary Care Provider] - Follow up as needed Mode of Arrival: Wheelchair Information source: Patient Notes: 49-year-old female presents to ED for complaint of pain in her legs arms back and chest. She does have a history of sickle cell anemia. She was at Dr. grace's office on . He states she states they did blood work and he called her back and told her that her blood levels were low she had any increase in symptoms to please go to the ED. She states that the time she did not feel bad so she did not come to the ED but now she is hurting all over and very tired and weak. We will get blood levels and treat as appropriate. I have greeted and performed a rapid initial assessment of this patient. A comprehensive ED assessment and evaluation of the patient, analysis of test results and completion of medical decision making process will be conducted by an additional ED providers. TRAVEL OUTSIDE OF THE [place] IN LAST 30 DAYS: No - Related Data Allergies/Adverse Reactions: doxycycline [Doxycycline] Allergy (Severe, Verified 02/14/19 18:16) Past Medical History - Past Medical History Cardiac Medical History: Reports: Hx Heart Murmur Denies: Hx Atrial Fibrillation, Hx Congestive Heart Failure, Hx Coronary Artery Disease, Hx Heart Attack, Hx Hypercholesterolemia, Hx Hypertension, Hx Peripheral Vascular Disease Pulmonary Medical History: Denies: Hx Tuberculosis Neurological Medical History: Denies: Hx Seizures Renal/ Medical History: Reports: Hx Ovarian Cysts. 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 Denies: Hx HIV Past Surgical History: Reports: Hx Appendectomy, Hx Section, Hx Cholecystectomy, Hx Orthopedic Surgery - R knee, Hx Tonsillectomy. Denies: Hx Bowel Surgery, Hx Coronary Artery Bypass Graft, Hx Gastric Bypass Surgery, Hx Herniorrhaphy, Hx Mastectomy, Hx Pacemaker, Hx Tubal Ligation - Immunizations Immunizations up to date: Yes Hx Diphtheria, Pertussis, Tetanus Vaccination: Yes Physical Exam - Vital signs Vitals: Temp Pulse Resp BP Pulse Ox 99 F 88 18 113/74 99 03/24/19 16:56 03/24/19 16:56 03/24/19 16:56 03/24/19 16:56 03/24/19 16:56 Course - Vital Signs Vital signs: Temp Pulse Resp BP Pulse Ox 99 F 88 18 113/74 99 03/24/19 16:56 03/24/19 16:56 03/24/19 16:56 03/24/19 16:56 03/24/19 16:56 Doctor's Discharge - Discharge Referrals: HOMA BARRAZA MD [Primary Care Provider] - Follow up as needed
[2019-03-24] MEDS ORDERED: NORMAL SALINE 1000 ML 1,000 ML IV ONE ×2 (17:04)
[2019-03-24] MEDS ORDERED: HYDROMORPHONE HCL INJ/PF 2 MG/ML AMPULE IV ONE ×4 (18:26→22:34)
[2019-03-24] MEDS ORDERED: ONDANSETRON HCL INJ/PF 4 MG/2 ML SDV IV ONE (18:26)
[2019-03-24 18:33] LABS: ABSOLUTE RETICS # 0.055 10^6/uL (0.028-0.122); MEAN CORPUSCULAR HEMOGLOBIN 42.8 pg (27.0-33.4); MEAN CORPUSCULAR HGB CONC 34.5 g/dL (32.0-36.0); PLATELET COUNT 237 10^3/uL (150-450); RED CELL DISTRIBUTION WIDTH 25.6 % (11.5-14.0); RETICULOCYTE COUNT (AUTO) 3.26 % (0.66-2.85); WHITE BLOOD COUNT 4.6 10^3/uL (4.0-10.5)
[2019-03-24 18:41] LABS: HEMOGLOBIN 7.3 g/dL (12.0-15.5); MEAN CORPUSCULAR VOLUME 124 fl (80-97)
--- NOTE | 2019-03-24 18:41 | ER Document Report ---
ED General - General Chief Complaint: Sickle Cell Crisis Stated Complaint: SICKLE CELL CRISIS Time Seen by Provider: 03/24/19 17:00 Primary Care Provider: HOMA BARRAZA MD [Primary Care Provider] - Follow up in 3-5 days Mode of Arrival: Wheelchair Notes: Patient is a 49-year-old female with history of sickle cell anemia that presents to the emergency department for chief complaint of back pain, arm and leg pain consistent with her prior sickle cell pain crises. Patient states that pain started a few days ago and got worse, so she decided come the emergency department. She usually takes OxyContin 30 mg twice daily, and oxycodone, but she has run out of her oxycodone at home and cannot get it filled for a few days. She currently describes her pain as a 9 out of 10 describes as aching deep bone pain, similar to prior episodes. She denies any significant chest pain, has had mild shortness of breath and has felt fatigued as a result of her pain. Denies any fevers, chills, night sweats or cough recently. Past Medical History: Sickle cell anemia Past Surgical History: Mediport placement Social History: Denies current tobacco, alcohol or drug use. Family History: Reviewed and noncontributory for presenting illness Allergies: Reviewed, see documented allergy list. REVIEW OF SYSTEMS: Other than noted above, the 12 point review of systems was reviewed with the patient and were negative, all pertinent findings are included in the HPI. PHYSICAL EXAMINATION: Vital signs reviewed, nursing noted reviewed. GENERAL: Well-appearing, well-nourished and in no acute distress. HEAD: Atraumatic, normocephalic. EYES: Eyes appear normal, extraocular movements intact, sclera anicteric, conjunctiva are normal. ENT: nares patent, oropharynx clear without exudates. Moist mucous membranes. NECK: Normal range of motion, supple without lymphadenopathy LUNGS: Breath sounds clear to auscultation bilaterally and equal. No wheezes rales or rhonchi. Mediport noted in the right chest wall, no signs of infection noted. HEART: Regular rate and rhythm without murmurs ABDOMEN: Soft, nontender, normoactive bowel sounds. No rebound, guarding, or rigidity. No masses appreciated. EXTREMITIES: Nontender, good range of motion, no pitting or edema. NEUROLOGICAL: No focal neurological deficits. Moves all extremities spontaneously Motor and sensory grossly intact on exam. PSYCH: Normal mood, normal affect. SKIN: Warm, Dry, normal turgor, no rashes or lesions noted on exposed skin TRAVEL OUTSIDE OF THE [place] IN LAST 30 DAYS: No - Related Data Allergies/Adverse Reactions: doxycycline [Doxycycline] Allergy (Severe, Verified 02/14/19 18:16) Past Medical History - General Information source: Patient - Social History Smoking Status: Never Smoker Family History: Reviewed & Not Pertinent Patient has suicidal ideation: No Patient has homicidal ideation: No - Past Medical History Cardiac Medical History: Reports: Hx Heart Murmur Denies: Hx Atrial Fibrillation, Hx Congestive Heart Failure, Hx Coronary Artery Disease, Hx Heart Attack, Hx Hypercholesterolemia, Hx Hypertension, Hx Peripheral Vascular Disease Pulmonary Medical History: Denies: Hx Tuberculosis Neurological Medical History: Denies: Hx Seizures Renal/ Medical History: Reports: Hx Ovarian Cysts. 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 Denies: Hx HIV Past Surgical History: Reports: Hx Appendectomy, Hx Section, Hx Cholecystectomy, Hx Orthopedic Surgery - R knee, Hx Tonsillectomy. Denies: Hx Bowel Surgery, Hx Coronary Artery Bypass Graft, Hx Gastric Bypass Surgery, Hx Herniorrhaphy, Hx Mastectomy, Hx Pacemaker, Hx Tubal Ligation - Immunizations Immunizations up to date: Yes Hx Diphtheria, Pertussis, Tetanus Vaccination: Yes Hx Pneumococcal Vaccination: 03/20/14 Physical Exam - Vital signs Vitals: Temp Pulse Resp BP Pulse Ox 99 F 88 18 113/74 99 03/24/19 16:56 03/24/19 16:56 03/24/19 16:56 03/24/19 16:56 03/24/19 16:56 Course - Re-evaluation Re-evalutation: Patient seen and examined vital signs reviewed. Laboratory data and/or imaging were ordered as appropriate for the patient's presenting symptoms and complaint, with consideration of any critical or life threatening conditions that may be associated with their obtained history and exam as noted above. Patient was treated with IV Dilaudid, and IV fluids Results were reviewed when available and demonstrated anemia hemoglobin of 7.3, consistent with the patient's prior labs, did discuss this with the on-call intensive care nurse, they do see the patient and they did not recommend any transfusion at this time. Her chest x-ray was negative, reticulocyte count was normal. The patient was re-evaluated and was stable and improved Evaluation was most consistent with sickle cell pain crisis Results were discussed with the patient at this point, after careful consideration I feel that that patient can be discharged from the emergency department, the patient was educated treatments and reasons to return to the emergency department based on their presumed diagnosis as noted above, they were advised to followup with a primary care physician in 2-3 days. Patient was agreeable to plan of care. *Note is created using voice recognition software and may contain spelling, syntax or grammatical errors. Laboratory 03/24/19 03/24/19 03/24/19 17:44 17:44 18:43 WBC 4.6 RBC 1.70 L Hgb 7.3 L Hct 21.0 L MCV 124 H D MCH 42.8 H MCHC 34.5 RDW 25.6 H Plt Count 237 Lymph % (Auto) Not Reportable [place] % (Auto) Not Reportable Eos % (Auto) Not Reportable Baso % (Auto) Not Reportable Reticulocyte # 0.055 Absolute Neuts (auto) Not Reportable Absolute Lymphs (auto) Not Reportable Absolute Monos (auto) Not Reportable Absolute Eos (auto) Not Reportable Absolute Basos (auto) Not Reportable Total Counted 100 Seg Neutrophils % Not Reportable Seg Neuts % (Manual) 67 Lymphocytes % (Manual) 32 Monocytes % (Manual) 1 L Eosinophils % (Manual) 0 Basophils % (Manual) 0 Abs Neuts (Manual) 3.1 Abs Lymphs (Manual) 1.5 Abs Monocytes (Manual) 0.0 L Absolute Eos (Manual) 0.0 Abs Basophils (Manual) 0.0 Nucleated RBCs 13 Platelet Comment ADEQUATE Hypochromasia 1+ Anisocytosis 3+ Macrocytosis 4+ Target Cells SLIGHT Ovalocytes SLIGHT Retic Count (auto) 3.26 H Sodium 141.2 Potassium 3.6 Chloride 111 H Carbon Dioxide 21 L Anion Gap 9 BUN 7 Creatinine 0.59 Est GFR ( Amer) > 60 Est GFR (MDRD) Non-Af > 60 Glucose 105 Calcium 9.4 Total Bilirubin 3.4 H Direct Bilirubin 0.4 Neonat Total Bilirubin Not Reportable Neonat Direct Bilirubin Not Reportable Neonat Indirect Bili Not Reportable AST 65 H ALT 46 Alkaline Phosphatase 143 H Total Protein 8.1 Albumin 4.6 Urine Color YELLOW Urine Appearance CLEAR Urine pH 6.0 Ur Specific Orange 1.012 Urine Protein NEGATIVE Urine Glucose (UA) NEGATIVE Urine Ketones NEGATIVE Urine Blood SMALL H Urine Nitrite NEGATIVE Urine Bilirubin NEGATIVE Urine Urobilinogen 2.0 H Ur Leukocyte Esterase NEGATIVE Urine WBC (Auto) 2 Urine RBC (Auto) 2 U Hyaline Cast (Auto) 1 Squamous Epi Cells Auto <1 Urine Mucus (Auto) RARE Urine Ascorbic Acid NEGATIVE Chest X-Ray 03/24/19 18:55 IMPRESSION: NO ACUTE FINDINGS. - Vital Signs Vital signs: Temp Pulse Resp BP Pulse Ox 99 F 76 18 108/68 99 03/24/19 16:56 03/24/19 19:34 03/24/19 16:56 03/24/19 20:01 03/24/19 16:56 - Laboratory Result Diagrams: 03/24/19 17:44 03/24/19 17:44 Laboratory results interpreted by me: 03/24/19 03/24/19 03/24/19 17:44 17:44 18:43 RBC 1.70 L Hgb 7.3 L Hct 21.0 L MCV 124 H D MCH 42.8 H RDW 25.6 H Monocytes % (Manual) 1 L Abs Monocytes (Manual) 0.0 L Retic Count (auto) 3.26 H Chloride 111 H Carbon Dioxide 21 L Total Bilirubin 3.4 H AST 65 H Alkaline Phosphatase 143 H Urine Blood SMALL H Urine Urobilinogen 2.0 H Discharge - Discharge Clinical Impression: Sickle cell pain crisis Condition: Stable Disposition: HOME, SELF-CARE Instructions: Sickle Cell Crisis ([facility]) Referrals: HOMA BARRAZA MD [Primary Care Provider] - Follow up in 3-5 days
[2019-03-24 18:49] LABS: ALBUMIN 4.6 g/dL (3.5-5.0); ALKALINE PHOSPHATASE 143 U/L (38-126); ANION GAP 9 (5-19); ASPARTATE AMINO TRANSFERASE 65 U/L (14-36); BILIRUBIN,DIRECT 0.4 mg/dL (0.0-0.4); BILIRUBIN,TOTAL 3.4 mg/dL (0.2-1.3); BLOOD UREA NITROGEN 7 mg/dL (7-20); CALCIUM 9.4 mg/dL (8.4-10.2); CARBON DIOXIDE 21 mmol/L (22-30); CHLORIDE 111 mmol/L (98-107); GLUCOSE 105 mg/dL (75-110); POTASSIUM 3.6 mmol/L (3.6-5.0); TOTAL PROTEIN 8.1 g/dL (6.3-8.2)
[2019-03-24 19:03] LABS: ABSOLUTE LYMPHOCYTES# (MANUAL) 1.5 10^3/uL (0.5-4.7); BASOPHILS % (MANUAL) 0 % (0-2); EOSINOPHILS % (MANUAL) 0 % (0-6); LYMPHOCYTES % (MANUAL) 32 % (13-45); MONOCYTES % (MANUAL) 1 % (3-13); NUCLEATED RED BLOOD CELLS 13 /100 WBC (0); SEGMENTED NEUTROPHILS % (MAN) 67 % (42-78); TOTAL CELLS COUNTED 100
[2019-03-24 19:10] LABS: ANISOCYTOSIS 3+; HYPOCHROMASIA 1+; OVALOCYTES SLIGHT; TARGET CELLS SLIGHT
[2019-03-24 19:11] LABS: PLATELET COMMENT ADEQUATE
[2019-03-24 19:16] LABS: APPEARANCE,URINE CLEAR; BILIRUBIN,URINE NEGATIVE (NEGATIVE); COLOR,URINE YELLOW; GLUCOSE, URINE NEGATIVE (NEGATIVE); KETONES,URINE NEGATIVE (NEGATIVE); LEUKOCYTE ESTERASE,URINE NEGATIVE (NEGATIVE); NITRITE,URINE NEGATIVE (NEGATIVE); PROTEIN,URINE NEGATIVE (NEGATIVE); URINE SPECIFIC GRAVITY 1.012
--- NOTE | 2019-03-24 19:30 | RADIOLOGY REPORT (SQ) ---
EXAM DESCRIPTION: CHEST SINGLE VIEW COMPLETED DATE/TIME: 03/24/2019 7:17 pm REASON FOR STUDY: chest pain COMPARISON: 02/11/2019 TECHNIQUE: Single frontal radiographic view of the chest acquired. NUMBER OF VIEWS: One view. LIMITATIONS: None. FINDINGS: LUNGS AND PLEURA: No pneumothorax. No consolidation or pleural effusion. MEDIASTINUM AND HILAR STRUCTURES: Stable. HEART AND VASCULAR STRUCTURES: Stable. BONES: No acute findings. HARDWARE: Left chest port. OTHER: No other significant finding. IMPRESSION: NO ACUTE FINDINGS. TECHNICAL DOCUMENTATION: JOB ID: [id number] [id number] 2010 [employer]- All Rights Reserved Reading location - IP/workstation name: [email or web address]
[2019-03-24] MEDS ORDERED: DIPHENHYDRAMINE HCL 50 MG/ML VIAL IV ONE (20:38)
[2019-03-24] MEDS ORDERED: HYDROCODONE/ACETAMINOPHEN 5-325 MG (6 TAB/ER DISP) PO PRN (22:34)
[2019-03-25 00:05] VITALS: BP 118/70
== END 2019-03-25 00:03 | disposition home or self-care (01) ==
LOC: ER 16:40
DX: D57.00 Hb-SS disease with crisis, unspecified (principal); Z79.891 Long term (current) use of opiate analgesic; M89.8X0 Other specified disorders of bone, multiple sites; R06.02 Shortness of breath; R53.83 Other fatigue; Z88.1 Allergy status to other antibiotic agents
CPT/HCPCS: 36415; 85025; 85045; 80053; 81001; 71045; J1200; J1170; J2405; J7030; J1642; 96361; 96374; 96375; 96376; 99284

== ENCOUNTER 2019-04-05 16:26 | Inpatient (IN) | payer MEDICAID ==
--- NOTE | 2019-04-05 17:47 | ER Document Report ---
ED Medical Screen (RME) - General Chief Complaint: Sickle Cell Crisis Stated Complaint: BODY PAIN Time Seen by Provider: 04/05/19 17:45 Primary Care Provider: HOMA BARRAZA MD [Primary Care Provider] - Follow up as needed Mode of Arrival: Wheelchair Information source: Patient Notes: 49-year-old female presented to ED for complaint of pain and swelling to both arms and legs and back. She does have sickle cell anemia. She states the skin on the left leg is starting to break down. Patient is alert oriented respirations regular and unlabored at this time. I have greeted and performed a rapid initial assessment of this patient. A comprehensive ED assessment and evaluation of the patient, analysis of test results and completion of medical decision making process will be conducted by an additional ED providers. TRAVEL OUTSIDE OF THE [place] IN LAST 30 DAYS: No - Related Data Allergies/Adverse Reactions: doxycycline [Doxycycline] Allergy (Severe, Verified 02/14/19 18:16) Past Medical History - Past Medical History Cardiac Medical History: Reports: Hx Heart Murmur Denies: Hx Atrial Fibrillation, Hx Congestive Heart Failure, Hx Coronary Artery Disease, Hx Heart Attack, Hx Hypercholesterolemia, Hx Hypertension, Hx Peripheral Vascular Disease Pulmonary Medical History: Denies: Hx Tuberculosis Neurological Medical History: Denies: Hx Seizures Renal/ Medical History: Reports: Hx Ovarian Cysts. 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 Denies: Hx HIV Past Surgical History: Reports: Hx Appendectomy, Hx Section, Hx Cholecystectomy, Hx Orthopedic Surgery - R knee, Hx Tonsillectomy. Denies: Hx Bowel Surgery, Hx Coronary Artery Bypass Graft, Hx Gastric Bypass Surgery, Hx Herniorrhaphy, Hx Mastectomy, Hx Pacemaker, Hx Tubal Ligation - Immunizations Immunizations up to date: Yes Hx Diphtheria, Pertussis, Tetanus Vaccination: Yes Physical Exam - Vital signs Vitals: Temp Pulse Resp BP Pulse Ox 98.6 F 81 16 94/53 L 94 04/05/19 17:01 04/05/19 17:01 04/05/19 17:01 04/05/19 17:01 04/05/19 17:01 Course - Vital Signs Vital signs: Temp Pulse Resp BP Pulse Ox 98.6 F 81 16 94/53 L 94 04/05/19 17:01 04/05/19 17:01 04/05/19 17:01 04/05/19 17:01 04/05/19 17:01 Doctor's Discharge - Discharge Referrals: HOMA BARRAZA MD [Primary Care Provider] - Follow up as needed
[2019-04-06] MEDS ORDERED: VANCOMYCIN HCL INJ 1000 MG VIAL IV ONE (00:05)
[2019-04-06] MEDS ORDERED: PROMETHAZINE HCL INJ 25 MG/1 ML VIAL IV ONE (00:06)
[2019-04-06] MEDS ORDERED: HYDROMORPHONE HCL INJ/PF 2 MG/ML AMPULE IV ONE ×2 (00:06→02:15)
--- NOTE | 2019-04-06 00:07 | ER Document Report ---
ED Extremity Problem, Lower - General Chief Complaint: Leg Swelling Stated Complaint: BODY PAIN Time Seen by Provider: 04/05/19 17:45 Primary Care Provider: HOMA BARRAZA MD [Primary Care Provider] - Follow up as needed Mode of Arrival: Wheelchair Notes: Patient is a history apparently of sickle cell and has had swelling and pain in the legs in the past claims that today she started developing pain fever and chills and swelling to both legs left greater than right in the anterior krishnan area. TRAVEL OUTSIDE OF THE [place] IN LAST 30 DAYS: No - HPI Patient complains to provider of: Swelling. No: Altered sensation, Injury, Other Location: No: Ankle, Back, Buttock, Foot, Hip, Knee, Leg, Thigh, Great Toe, 2nd Toe, 3rd Toe, 4th Toe, 5th Toe Quality of pain: Stabbing, Throbbing Severity: Moderate Pain Level: 2 Context: denies: Barefoot, Burn, Crush, Direct blow, Fell, Laceration, Prolonged pressure on ext, Recent immobilization, Recent surgery, Recent travel, Stubbed, Twisted, Wearing shoes, Other Associated symptoms: denies: Chest pain, Chills, Dizzy, Fainting, Fever, [place] a crack, [place] a pop, Hurts to breath, Painful ambulation, Rapid heart rate, Seizure, Short of breath, Sweaty, Unable to bear weight, Weak, Other Exacerbated by: denies: Nothing, Hanging down, Movement, Walking, Other Relieved by: denies: Nothing, Elevation, Ice, Rest, Other - Related Data Allergies/Adverse Reactions: doxycycline [Doxycycline] Allergy (Severe, Verified 02/14/19 18:16) Home Medications: Oxycotin 30mg twice daily. Oxycodone 10mg as needed every 6 hours. Xarelto 20mg twice daily. Hydroxurea 500mg three times daily. Folic Acid 1mg daily. Procrit 60,000units once weekly. Jadenu 500mg once daily. Gabapentin 300mg twice daily Past Medical History - General Information source: Patient - Social History Smoking Status: Never Smoker Chew tobacco use (# tins/day): No Drug Abuse: None Family History: Reviewed & Not Pertinent Patient has suicidal ideation: No Patient has homicidal ideation: No - Past Medical History Cardiac Medical History: Reports: Hx Heart Murmur Denies: Hx Atrial Fibrillation, Hx Congestive Heart Failure, Hx Coronary Artery Disease, Hx Heart Attack, Hx Hypercholesterolemia, Hx Hypertension, Hx Peripheral Vascular Disease Pulmonary Medical History: Denies: Hx Tuberculosis Neurological Medical History: Denies: Hx Seizures Renal/ Medical History: Reports: Hx Ovarian Cysts. 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 Denies: Hx HIV Past Surgical History: Reports: Hx Appendectomy, Hx Section, Hx Cholecystectomy, Hx Orthopedic Surgery - R knee, Hx Tonsillectomy. Denies: Hx Bowel Surgery, Hx Coronary Artery Bypass Graft, Hx Gastric Bypass Surgery, Hx Herniorrhaphy, Hx Mastectomy, Hx Pacemaker, Hx Tubal Ligation - Immunizations Immunizations up to date: Yes Hx Diphtheria, Pertussis, Tetanus Vaccination: Yes Hx Pneumococcal Vaccination: 03/20/14 Review of Systems - Review of Systems Constitutional: Chills. denies: No symptoms reported, See HPI, Diaphoresis, Malaise, Weakness, Other, Weight gain, Weight loss, Recent illness EENT: denies: No symptoms reported, See HPI, Eye pain, Eye discharge, Blurred vision, Tearing, Double vision, Ear pain, Ear discharge, Nose pain, Nose congestion, Nose discharge, Sinus pressure, Sinus discharge, Throat pain, Difficulty swallowing, Throat swelling, Mouth pain, Mouth swelling, Dental problem, Vertigo, Other Cardiovascular: denies: No symptoms reported, See HPI, Chest pain, Palpitations, Heart racing, Orthopnea, Dyspnea, Syncope, Dizziness, Lightheaded, Edema, Other, Paroxysmal Nocturnal Dysp Respiratory: denies: No symptoms reported, See HPI, Cough, Hurts to breathe, Hemoptysis, Short of breath, Sputum, Stridor, Wheezing, Other Gastrointestinal: denies: No symptoms reported, See HPI, Abdomen distended, Abdominal pain, Diarrhea, Nausea, Vomiting, Constipation, Blood streaked bowels, Poor appetite, Poor fluid intake, Blood in vomit, Black stools, Rectal bleeding, Last bowel movement, Fecal incontinence, Other Genitourinary: denies: No symptoms reported, See HPI, Burning, Dysuria, Discharge, Frequency, Flank pain, Hematuria, Incontinence, Pain, Urgency, Retention, Other Female Genitourinary: denies: No symptoms reported, See HPI, Last menstrual period, , Post menopausal, Heavy/abnormal periods, Irregular period, Vaginal bleeding, Vaginal discharge, Vaginal odor, Painful intercourse, Other Musculoskeletal: Joint pain, Leg swelling. denies: No symptoms reported, See HPI, Back pain, Gout, Joint swelling, Muscle pain, Muscle stiffness, Neck pain, Deformity, Ankle swelling, Other Skin: Rash. denies: No symptoms reported, See HPI, Change in color, Change in hair/nails, Dryness, Lesions, Lumps, Other Neurological/Psychological: denies: No symptoms reported, See HPI, Confusion, Dementia, Depression, Hallucinations, Anxiety, Homicidal ideation, Sensory change, Weakness, Gait changes, Loss of power, Paralysis, Seizure, Lost consciousness, Headaches, Speech impairment, Numbness, Suicidal ideation, Tingling, Tremor, Other -: Yes All other systems reviewed and negative Physical Exam - Vital signs Vitals: Temp Pulse Resp BP Pulse Ox 98.6 F 81 16 94/53 L 94 04/05/19 17:01 04/05/19 17:01 04/05/19 17:01 04/05/19 17:01 04/05/19 17:01 Notes: PHYSICAL EXAMINATION: GENERAL: Well-appearing, well-nourished and in no acute distress. HEAD: Atraumatic, normocephalic. EYES: Pupils equal round and reactive to light, extraocular movements intact, sclera anicteric, conjunctiva are normal. ENT: nares patent, oropharynx clear without exudates. Moist mucous membranes. NECK: Normal range of motion, supple without lymphadenopathy LUNGS: Breath sounds clear to auscultation bilaterally and equal. No wheezes rales or rhonchi. HEART: Regular rate and rhythm without murmurs ABDOMEN: Soft, nontender, normoactive bowel sounds. No guarding, no rebound. No masses appreciated. EXTREMITIES: Bilateral lower extremity swelling 2+ edema to the left leg and 1+ edema to the right leg left leg is warm to touch all the way up to the knee and the anterior aspect of the leg there is no pain in the calf popliteal fossa or medial thigh. Right leg there is some swelling however no warmth or erythema. Apparently this is typical when she has a crisis that she has pain but not normal the warmth. NEUROLOGICAL: No focal neurological deficits. Moves all extremities spontaneously and on command. PSYCH: Normal mood, normal affect. SKIN: Warm, Dry, normal turgor, no rashes or lesions noted. Course - Vital Signs Vital signs: Temp Pulse Resp BP Pulse Ox 98.6 F 81 16 93/62 L 96 04/05/19 17:01 04/05/19 17:01 04/06/19 01:01 04/06/19 01:01 04/06/19 00:01 - Laboratory Result Diagrams: 04/05/19 23:52 04/05/19 23:52 Laboratory results interpreted by me: 04/05/19 04/05/19 23:52 23:52 WBC 3.8 L RBC 1.15 L Hgb 5.0 L* Hct 14.4 L* MCV 124 H MCH 43.7 H RDW 25.6 H Lymphocytes % (Manual) 49 H Abs Neuts (Manual) 1.6 L Retic Count (auto) 5.86 H BUN 4 L Total Bilirubin 3.3 H Direct Bilirubin 0.7 H AST 47 H Alkaline Phosphatase 127 H - Transfer of Care Notes: 04/06/19 01:19 Note patient does appear to have a left leg cellulitis also a sickle cell crisis with a hemoglobin of 5 when previously been 7.7 or higher I spoke with Dr. Bryant regular forest officer oncologist who will admit the patient. Will be transfused with 2 units did receive vancomycin IV here 0 Discharge - Discharge Clinical Impression: Left leg cellulitis, Sickle-cell crisis Condition: Stable Disposition: ADMITTED INPATIENT Admitting Provider: Da Unit Admitted: Medical Floor Referrals: HOMA BARRAZA MD [Primary Care Provider] - Follow up as needed
[2019-04-06 00:10] LABS: ABSOLUTE RETICS # 0.068 10^6/uL (0.028-0.122); MEAN CORPUSCULAR HEMOGLOBIN 43.7 pg (27.0-33.4); MEAN CORPUSCULAR HGB CONC 35.1 g/dL (32.0-36.0); MEAN CORPUSCULAR VOLUME 124 fl (80-97); PLATELET COUNT 217 10^3/uL (150-450); RED BLOOD COUNT 1.15 10^6/uL (3.72-5.28); RED CELL DISTRIBUTION WIDTH 25.6 % (11.5-14.0); RETICULOCYTE COUNT (AUTO) 5.86 % (0.66-2.85); WHITE BLOOD COUNT 3.8 10^3/uL (4.0-10.5)
[2019-04-06 00:18] LABS: ALBUMIN 3.8 g/dL (3.5-5.0); ALKALINE PHOSPHATASE 127 U/L (38-126); ANION GAP 7 (5-19); ASPARTATE AMINO TRANSFERASE 47 U/L (14-36); BILIRUBIN,DIRECT 0.7 mg/dL (0.0-0.4); BILIRUBIN,TOTAL 3.3 mg/dL (0.2-1.3); BLOOD UREA NITROGEN 4 mg/dL (7-20); CALCIUM 8.7 mg/dL (8.4-10.2); CARBON DIOXIDE 24 mmol/L (22-30); CHLORIDE 106 mmol/L (98-107); GLUCOSE 90 mg/dL (75-110); POTASSIUM 3.7 mmol/L (3.6-5.0); TOTAL PROTEIN 6.9 g/dL (6.3-8.2)
[2019-04-06 00:42] LABS: ABSOLUTE LYMPHOCYTES# (MANUAL) 1.9 10^3/uL (0.5-4.7); ABSOLUTE MONOCYTES # (MANUAL) 0.3 10^3/uL (0.1-1.4); BASOPHILS % (MANUAL) 0 % (0-2); EOSINOPHILS % (MANUAL) 2 % (0-6); LYMPHOCYTES % (MANUAL) 49 % (13-45); MONOCYTES % (MANUAL) 7 % (3-13); SEGMENTED NEUTROPHILS % (MAN) 42 % (42-78); TOTAL CELLS COUNTED 100
[2019-04-06 00:48] LABS: ANISOCYTOSIS 3+; HYPOCHROMASIA SLIGHT; OVALOCYTES 2+; POIKILOCYTOSIS 3+; SCHISTOCYTES 2+; TOXIC GRANULATION 1+
[2019-04-06 00:49] LABS: SICKLE RED CELLS 2+
[2019-04-06 00:50] LABS: PLATELET COMMENT ADEQUATE; TEAR DROP CELLS 2+
[2019-04-06 00:53] LABS: HEMATOCRIT 14.4 % (36.0-47.0)
[2019-04-06 00:54] LABS: NUCLEATED RED BLOOD CELLS 17 /100 WBC (0)
[2019-04-06] MEDS ORDERED: NORMAL SALINE 250 ML IV PRN (01:08)
[2019-04-06] MEDS ORDERED: NORMAL SALINE 1000 ML 1,000 ML IV PRN (02:38)
[2019-04-06 04:47] LABS: APPEARANCE,URINE CLEAR; BILIRUBIN,URINE NEGATIVE (NEGATIVE); COLOR,URINE YELLOW; GLUCOSE, URINE NEGATIVE (NEGATIVE); KETONES,URINE NEGATIVE (NEGATIVE); LEUKOCYTE ESTERASE,URINE NEGATIVE (NEGATIVE); NITRITE,URINE NEGATIVE (NEGATIVE); PROTEIN,URINE NEGATIVE (NEGATIVE); URINE SPECIFIC GRAVITY 1.009
[2019-04-06 05:01] LABS: URINE AMPHETAMINES SCREEN NEGATIVE; URINE BARBITURATES SCREEN NEGATIVE; URINE BENZODIAZEPINES SCREEN NEGATIVE; URINE COCAINE SCREEN NEGATIVE; URINE MARIJUANA (THC) SCREEN NEGATIVE; URINE METHADONE SCREEN NEGATIVE; URINE PHENCYCLIDINE SCREEN NEGATIVE
[2019-04-06] MEDS ORDERED: CLINDAMYCIN 600 MG/D5W RTU 600 MG/50 ML RTUPB IV SCH (06:00)
[2019-04-06] MEDS ORDERED: OXYCODONE HCL IR 5 MG TABLET PO PRN (06:19)
[2019-04-06] MEDS: DIPHENHYDRAMINE HCL 50 MG/ML VIAL IV PRN ×4 (08:20→23:16)
[2019-04-06] MEDS: HYDROMORPHONE HCL INJ/PF 2 MG/ML AMPULE IV PRN ×8 (08:20→23:16)
[2019-04-06] MEDS: NORMAL SALINE 1000 ML 1,000 ML IV PRN ×2 (08:21→15:07)
--- NOTE | 2019-04-06 08:25 | PDOC CONSULTATION ---
Consultation Consult Date: 04/06/19 Provider Consulted: SAVANNA AWAN Consult reason:: Hematology/Oncology consultation was requested for patient with Sickle Cell Anemia under narcotic contract with me. History of Present Illness Admission Date/PCP: 04/06/19 01:51 HOMA BARRAZA MD History of Present Illness: WILLIE ALAN is a 49 year old female who presented to the ED with increased leg and back pain over the last 24-48 hours. She has a long standing history of Sickle Cell Anemia and had been stable at home on her regular PO meds until yesterday. She states that she believes she may have an infection in her leg as it is painful and is itching. No significant chest pain or dyspnea. She has been on Jadenu for iron overload. Her baseline HGB is 8-9. 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: Yes Medication/Allergy Home Medications: Epoetin Federico [Procrit Inj 40,000 Unit/1 ml Vial (Renal)] 60,000 unit SQ FR 11/20/18 Folic Acid [Folvite 1 mg Tablet] 1 mg PO DAILY 11/20/18 Gabapentin [Neurontin 300 mg Capsule] 300 mg PO Q8 11/20/18 Hydroxyurea [Hydrea 500 mg Capsule] 500 mg PO TID 11/20/18 Multivitamin [Multiple Vitamins] 1 tab PO DAILY 11/20/18 Oxycodone HCl [Oxycodone HCl 10 MG Tablet] 10 mg PO Q6HP PRN 11/20/18 Oxycodone HCl [Oxycontin] 30 mg PO Q12 11/20/18 Promethazine HCl [Phenergan 25 mg Tablet] 25 mg PO Q6HP PRN 11/20/18 Rivaroxaban [Xarelto] 20 mg PO QPM 11/20/18 Allergies/Adverse Reactions: doxycycline [Doxycycline] Allergy (Severe, Verified 02/14/19 18:16) Review of Systems Constitutional: PRESENT: fever(s) - to 101. Eyes: ABSENT: visual disturbances Ears: ABSENT: hearing changes Nose, Mouth, and Throat: ABSENT: sore throat Cardiovascular: ABSENT: chest pain Respiratory: ABSENT: dyspnea Gastrointestinal: PRESENT: nausea Genitourinary: ABSENT: dysuria Musculoskeletal: PRESENT: back pain Integumentary: PRESENT: pruritus, rash, wounds Neurological: ABSENT: frequent falls Hematologic/Lymphatic: ABSENT: easy bleeding Physical Exam Vital Signs: Temp Pulse Resp BP Pulse Ox 99.1 F 82 19 100/62 96 04/06/19 06:34 04/06/19 06:37 04/06/19 06:37 04/06/19 06:37 04/06/19 06:37 Intake & Output 04/05/19 04/06/19 04/07/19 06:59 06:59 06:59 Intake Total 177.1 Output Total 240 Balance -62.9 Weight 63.957 kg General appearance: PRESENT: well-developed, well-nourished Exam: 49 year old female. Head exam: PRESENT: atraumatic, normocephalic Eye exam: PRESENT: EOMI Mouth exam: PRESENT: tongue midline Neck exam: ABSENT: lymphadenopathy, tenderness Respiratory exam: PRESENT: clear to auscultation carolyn Cardiovascular exam: PRESENT: RRR GI/Abdominal exam: PRESENT: soft, tenderness Extremities exam: PRESENT: other - Left ankle with erythema and edema. Palpable veins. Neurological exam: PRESENT: alert, awake Psychiatric exam: PRESENT: appropriate affect Skin exam: PRESENT: normal color, other - Dry skin with scars and ulcers left ankle. Results Laboratory Results: 04/05/19 23:52 04/05/19 04/05/19 04/06/19 23:52 23:52 01:34 WBC 3.8 L RBC 1.15 L Hgb 5.0 L* Hct 14.4 L* MCV 124 H MCH 43.7 H MCHC 35.1 RDW 25.6 H Plt Count 217 Seg Neutrophils % Not Reportable Retic Count (auto) 5.86 H Sodium 137.4 Potassium 3.7 Chloride 106 Carbon Dioxide 24 Anion Gap 7 BUN 4 L Creatinine 0.59 Est GFR ( Amer) > 60 Glucose 90 Calcium 8.7 Total Bilirubin 3.3 H AST 47 H Alkaline Phosphatase 127 H Total Protein 6.9 Albumin 3.8 Urine Color Urine Appearance Urine pH Ur Specific [place] Urine Protein Urine Glucose (UA) Urine Ketones Urine Blood Urine Nitrite Ur Leukocyte Esterase Urine WBC (Auto) Blood Type O POSITIVE Antibody Screen NEGATIVE 04/06/19 04:00 WBC RBC Hgb Hct MCV MCH MCHC RDW Plt Count Seg Neutrophils % Retic Count (auto) Sodium Potassium Chloride Carbon Dioxide Anion Gap BUN Creatinine Est GFR ( Amer) Glucose Calcium Total Bilirubin AST Alkaline Phosphatase Total Protein Albumin Urine Color YELLOW Urine Appearance CLEAR Urine pH 6.0 Ur Specific [place] 1.009 Urine Protein NEGATIVE Urine Glucose (UA) NEGATIVE Urine Ketones NEGATIVE Urine Blood NEGATIVE Urine Nitrite NEGATIVE Ur Leukocyte Esterase NEGATIVE Urine WBC (Auto) 0 Blood Type Antibody Screen Assessment & Plan - Diagnosis (1) Iron overload due to repeated red blood cell transfusions Is this a current diagnosis for this admission?: Yes Plan: Avoid further transfusions if possible. Her baseline HGB is 8-9, so she is able to tolerate a lower HGB without hemodynamic compromise. Continue Jadenu. She should be able to take her home medication. (2) Cellulitis of left leg Is this a current diagnosis for this admission?: Yes Plan: She is on clindamycin. Await blood cultures. I will also check US of this leg to rule out DVT. She has been on Xarelto. This should be continued. (3) Sickle cell anemia with crisis Is this a current diagnosis for this admission?: Yes Plan: She should be on IVF 250 mL/hour. O2 2 L continuous, I will order IV dilsudid PRN and conitnue her home dose of OxyContin and Oxycodone. Will order heating pad as well. - Plan Summary Plan Summary: Thank you for this consultation. I will continue to follow her and will oversee her pain medications.
[2019-04-06] MEDS: FOLIC ACID 1 MG TABLET PO SCH (09:53)
[2019-04-06] MEDS: RIVAROXABAN 10 MG TABLET PO SCH (09:53)
[2019-04-06] MEDS: OXYCODONE HCL SR 10 MG TABLET PO SCH ×2 (09:53→21:20)
[2019-04-06] MEDS: CLINDAMYCIN 600 MG/D5W RTU 600 MG/50 ML RTUPB IV SCH ×2 (09:54→17:02)
--- NOTE | 2019-04-06 11:25 | RADIOLOGY REPORT (SQ) ---
EXAM DESCRIPTION: VENOUS UNILATERAL LOWER COMPLETED DATE/TIME: 04/06/2019 11:07 am REASON FOR STUDY: Left leg pain and swelling COMPARISON: None. TECHNIQUE: Dynamic and static mart scale and color images acquired of the left leg venous system. Se lected spectral images acquired with additional compression and augmentation maneuvers. The contralat eral common femoral vein and saphenofemoral junction were also imaged. Images stored on PACS. LIMITATIONS: None. FINDINGS: COMMON FEMORAL: Normal phasicity, compression and augmentation. No visualized echogenic ma terial on mart scale. No defects on color images. FEMORAL: Normal compression and augmentation. No visualized echogenic material on mart scale. No defe cts on color images. POPLITEAL: Normal compression, augmentation. No visualized echogenic material on mart scale. No defec ts on color images. CALF VESSELS: Normal compression, augmentation. No visualized echogenic material on mart scale. No de fects on color images. GSV and SSV: Normal compression, augmentation. No visualized echogenic material on mart scale. No def ects on color images. ANY DEEP VENOUS INSUFFICIENCY: Not evaluated. ANY EVIDENCE OF POPLITEAL CYST: No. OTHER: No other significant finding. CONTRALATERAL COMMON FEMORAL VEIN AND SAPHENOFEMORAL JUNCTION: Normal phasicity, compression and augmentation. No visualized echogenic material on mart scale. No de fects on color images. IMPRESSION: Negative examination for deep venous thrombosis in the left lower extremity. TECHNICAL DOCUMENTATION: JOB ID: [id number] [email or web address]- All Rights Reserved Reading location - IP/workstation name: [email or web address]
[2019-04-06 12:14] LABS: ANION GAP 6 (5-19); BLOOD UREA NITROGEN 4 mg/dL (7-20); CALCIUM 8.7 mg/dL (8.4-10.2); CARBON DIOXIDE 27 mmol/L (22-30); CHLORIDE 105 mmol/L (98-107); GLUCOSE 119 mg/dL (75-110); IRON(TIBC) 201.2 ug/dL (37-170); POTASSIUM 3.9 mmol/L (3.6-5.0)
[2019-04-06 12:31] LABS: FREE T4 (FREE THYROXINE) 1.02 ng/dL (0.78-2.19)
[2019-04-06 12:45] LABS: THYROID STIMULATING HORMONE 1.08 uIU/mL (0.47-4.68)
[2019-04-06 13:27] LABS: FOLATE > 20.00 ng/mL (>2.76)
[2019-04-06 13:32] LABS: PATH REVIEW PATHOLOGIST REVIEWED
--- NOTE | 2019-04-06 20:07 | PDOC H&P ---
History of Present Illness Admission Date/PCP: 04/06/19 01:51 HOMA BARRAZA MD History of Present Illness: WILLIE ALAN is a 49 year old female,Patient with history of sickle cell disease with multiple hospitalization, he came to the emergency room for evaluation of left leg swelling, he was also found to be very anemic with hemoglobin of 5., She stated according to the ED record that she was having pain, fever and chills of both legs on the left leg was was on the right leg, in the emergency room she was diagnosed as cellulitis, she was given a dose of vancomycin, she was also transfused with packed red blood cells. 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 She is also heavily opioid dependent, she requires heavy doses of opioid for pain control, she is on high dosages of OxyContin and oxycodone outpatient ,she also required IV dosage of Dilaudid inpatient. 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 Past Surgical History Past Surgical History: Reports: Appendectomy, Section, Cholecystectomy, Orthopedic Surgery - R knee, Tonsillectomy Social History Smoking Status: Never Smoker Electronic Cigarette use?: No Frequency of Alcohol Use: None Hx Recreational Drug Use: No Drugs: None Hx Prescription Drug Abuse: No - Advance Directive Resuscitation Status: Full Code Family History Family History: Reviewed & Not Pertinent Parental Family History Reviewed: Yes Children Family History Reviewed: Yes Sibling(s) Family History Reviewed.: Yes Medication/Allergy Home Medications: RX: Epoetin Federico [Procrit Inj 40,000 Unit/1 ml Vial (Renal)] 60,000 unit SQ FR 11/20/18 RX: Folic Acid [Folvite 1 mg Tablet] 1 mg PO DAILY 11/20/18 RX: Gabapentin [Neurontin 300 mg Capsule] 300 mg PO Q8 11/20/18 RX: Hydroxyurea [Hydrea 500 mg Capsule] 500 mg PO TID 11/20/18 RX: Multivitamin [Multiple Vitamins] 1 tab PO DAILY 11/20/18 RX: Oxycodone HCl [Oxycodone HCl 10 MG Tablet] 10 mg PO Q6HP PRN 11/20/18 RX: Oxycodone HCl [Oxycontin] 30 mg PO Q12 11/20/18 RX: Promethazine HCl [Phenergan 25 mg Tablet] 25 mg PO Q6HP PRN 11/20/18 RX: Rivaroxaban [Xarelto] 20 mg PO QPM 11/20/18 Allergies/Adverse Reactions: doxycycline [Doxycycline] Allergy (Severe, Verified 02/14/19 18:16) Review of Systems Constitutional: PRESENT: fever(s) Eyes: ABSENT: visual disturbances Ears: ABSENT: hearing changes Cardiovascular: ABSENT: chest pain, dyspnea on exertion, edema, orthropnea, palpitations Respiratory: ABSENT: cough, hemoptysis Gastrointestinal: ABSENT: abdominal pain, constipation, diarrhea, hematemesis, hematochezia, nausea, vomiting Genitourinary: ABSENT: dysuria, hematuria Musculoskeletal: PRESENT: back pain. ABSENT: joint swelling Integumentary: ABSENT: rash, wounds Neurological: PRESENT: dizziness Psychiatric: ABSENT: anxiety, depression, homidical ideation, suicidal ideation Endocrine: ABSENT: cold intolerance, heat intolerance, menstrual abnormalities, polydipsia, polyuria Hematologic/Lymphatic: ABSENT: easy bleeding, easy bruising, lymphadenopathy Physical Exam Vital Signs: Temp Pulse Resp BP Pulse Ox 99.1 F 82 16 109/53 L 100 04/06/19 14:59 04/06/19 14:59 04/06/19 14:59 04/06/19 14:59 04/06/19 14:59 Intake & Output 04/05/19 04/06/19 04/07/19 06:59 06:59 06:59 Intake Total 177.1 2222.9 Output Total 240 Balance -62.9 2222.9 Weight 63.957 kg General appearance: PRESENT: mild distress Head exam: PRESENT: atraumatic, normocephalic Eye exam: PRESENT: PERRLA Mouth exam: PRESENT: moist Neck exam: PRESENT: full ROM Respiratory exam: PRESENT: clear to auscultation carolyn Cardiovascular exam: PRESENT: RRR, +S1, +S2 Vascular exam: PRESENT: normal capillary refill GI/Abdominal exam: PRESENT: normal bowel sounds, soft Rectal exam: PRESENT: deferred Extremities exam: PRESENT: other - There is swelling, hyperpigmentation, tenderness of the left leg, there is also swelling of the right leg, left more than right Neurological exam: PRESENT: alert, CN II-XII grossly intact Psychiatric exam: PRESENT: appropriate affect, normal mood Results Laboratory Results: 04/05/19 23:52 04/06/19 11:30 04/05/19 04/05/19 04/06/19 23:52 23:52 01:34 WBC 3.8 L RBC 1.15 L Hgb 5.0 L* Hct 14.4 L* MCV 124 H MCH 43.7 H MCHC 35.1 RDW 25.6 H Plt Count 217 Seg Neutrophils % Not Reportable Retic Count (auto) 5.86 H Sodium 137.4 Potassium 3.7 Chloride 106 Carbon Dioxide 24 Anion Gap 7 BUN 4 L Creatinine 0.59 Est GFR ( Amer) > 60 Glucose 90 Calcium 8.7 Iron TIBC % Saturation Ferritin Total Bilirubin 3.3 H AST 47 H Alkaline Phosphatase 127 H Total Protein 6.9 Albumin 3.8 Vitamin B12 Folate TSH Free T4 Urine Color Urine Appearance Urine pH Ur Specific [place] Urine Protein Urine Glucose (UA) Urine Ketones Urine Blood Urine Nitrite Ur Leukocyte Esterase Urine WBC (Auto) Blood Type O POSITIVE Antibody Screen NEGATIVE 04/06/19 04/06/19 04/06/19 04:00 11:30 11:30 WBC RBC Hgb Hct MCV MCH MCHC RDW Plt Count Seg Neutrophils % Retic Count (auto) Sodium 138.1 Potassium 3.9 Chloride 105 Carbon Dioxide 27 Anion Gap 6 BUN 4 L Creatinine 0.55 Est GFR ( Amer) > 60 Glucose 119 H Calcium 8.7 Iron 201.2 H TIBC 262 % Saturation 77 Ferritin 2210.00 H Total Bilirubin AST Alkaline Phosphatase Total Protein Albumin Vitamin B12 407.0 Folate > 20.00 TSH 1.08 Free T4 1.02 Urine Color YELLOW Urine Appearance CLEAR Urine pH 6.0 Ur Specific [place] 1.009 Urine Protein NEGATIVE Urine Glucose (UA) NEGATIVE Urine Ketones NEGATIVE Urine Blood NEGATIVE Urine Nitrite NEGATIVE Ur Leukocyte Esterase NEGATIVE Urine WBC (Auto) 0 Blood Type Antibody Screen Impressions: Venous Doppler Study 04/06/19 00:00 IMPRESSION: Negative examination for deep venous thrombosis in the left lower extremity. Assessment & Plan - Diagnosis (1) Cellulitis of left leg Is this a current diagnosis for this admission?: Yes Plan: Patient at increased risk of infection especially gram-negative sepsis because of secondary hemochromatosis and also sickle cell disease, treated with clind amycin intravenously (2) Opioid dependence Qualifiers: Substance use status: with unspecified opioid-induced disorder Qualified Code(s): F11.29 - Opioid dependence with unspecified opioid-induced disorder Is this a current diagnosis for this admission?: Yes Plan: Management per furnishings conservator (3) Secondary hemochromatosis Is this a current diagnosis for this admission?: Yes (4) Sickle cell anemia Qualifiers: Sickle-cell associated disorders: with unspecified crisis Qualified Code(s): D57.00 - Hb-SS disease with crisis, unspecified; D57.0 - Hb-SS disease with crisis Is this a current diagnosis for this admission?: Yes (5) Vaso-occlusive sickle cell crisis Is this a current diagnosis for this admission?: Yes Plan: Hydration with normal saline
[2019-04-07] MEDS: CLINDAMYCIN 600 MG/D5W RTU 600 MG/50 ML RTUPB IV SCH ×3 (01:13→18:09)
[2019-04-07] MEDS: NORMAL SALINE 1000 ML 1,000 ML IV PRN ×3 (01:14→16:11)
[2019-04-07] MEDS: HYDROMORPHONE HCL INJ/PF 2 MG/ML AMPULE IV PRN ×11 (01:17→22:48)
[2019-04-07] MEDS: DIPHENHYDRAMINE HCL 50 MG/ML VIAL IV PRN ×5 (03:45→20:24)
[2019-04-07 06:35] LABS: HEMATOCRIT 16.9 % (36.0-47.0); MEAN CORPUSCULAR HEMOGLOBIN 41.6 pg (27.0-33.4); MEAN CORPUSCULAR HGB CONC 34.7 g/dL (32.0-36.0); PLATELET COUNT 234 10^3/uL (150-450); RED BLOOD COUNT 1.41 10^6/uL (3.72-5.28); RED CELL DISTRIBUTION WIDTH 28.9 % (11.5-14.0); WHITE BLOOD COUNT 4.5 10^3/uL (4.0-10.5)
[2019-04-07 06:38] LABS: HEMOGLOBIN 5.9 g/dL (12.0-15.5); MEAN CORPUSCULAR VOLUME 120 fl (80-97)
[2019-04-07 06:57] LABS: ALBUMIN 3.8 g/dL (3.5-5.0); ALKALINE PHOSPHATASE 113 U/L (38-126); ASPARTATE AMINO TRANSFERASE 47 U/L (14-36); BILIRUBIN,DIRECT 0.6 mg/dL (0.0-0.4); TOTAL PROTEIN 6.8 g/dL (6.3-8.2)
[2019-04-07 07:28] LABS: ABSOLUTE LYMPHOCYTES# (MANUAL) 2.4 10^3/uL (0.5-4.7); ABSOLUTE MONOCYTES # (MANUAL) 0.2 10^3/uL (0.1-1.4); BASOPHILS % (MANUAL) 0 % (0-2); EOSINOPHILS % (MANUAL) 9 % (0-6); LYMPHOCYTES % (MANUAL) 54 % (13-45); MONOCYTES % (MANUAL) 4 % (3-13); NUCLEATED RED BLOOD CELLS 28 /100 WBC (0); SEGMENTED NEUTROPHILS % (MAN) 33 % (42-78); TOTAL CELLS COUNTED 100
[2019-04-07 07:31] LABS: ANISOCYTOSIS 3+; HYPOCHROMASIA 1+; OVALOCYTES 1+; POIKILOCYTOSIS 1+; POLYCHROMASIA 1+
[2019-04-07 07:32] LABS: PLATELET COMMENT ADEQUATE
[2019-04-07] MEDS: JADENU 360 MG PO SCH (08:20)
[2019-04-07] MEDS: RIVAROXABAN 10 MG TABLET PO SCH (10:18)
[2019-04-07] MEDS: FOLIC ACID 1 MG TABLET PO SCH (10:18)
[2019-04-07] MEDS: OXYCODONE HCL SR 10 MG TABLET PO SCH ×2 (10:18→22:01)
--- NOTE | 2019-04-07 10:45 | PDOC PROGRESS REPORT ---
Subjective Progress Note for:: 04/07/19 Subjective:: Patient is admitted because of the sickle cell crisis leg pain Patient's 1 blood cultures grew up the organisms which is currently waiting for the culture and sensitivity Patient's pain medications followed by the oncologist Patient hemoglobin is low follow with the oncologist Reason For Visit: CELLULITIS RIGHT LEG,SCD WITH BONE PAIN CRISIS, Physical Exam Vital Signs: Temp Pulse Resp BP Pulse Ox 99.3 F 80 17 103/61 96 04/07/19 08:54 04/07/19 08:54 04/07/19 08:54 04/07/19 08:54 04/07/19 08:54 Intake & Output 04/06/19 04/07/19 04/08/19 06:59 06:59 06:59 Intake Total 177.1 3272.9 1000 Output Total 240 Balance -62.9 3272.9 1000 Weight 63.957 kg 62.6 kg General appearance: PRESENT: no acute distress, well-developed, well-nourished Head exam: PRESENT: atraumatic, normocephalic Eye exam: PRESENT: conjunctiva pink, EOMI, PERRLA. ABSENT: scleral icterus Ear exam: PRESENT: normal external ear exam Mouth exam: PRESENT: moist, tongue midline Neck exam: PRESENT: full ROM. ABSENT: carotid bruit, JVD, lymphadenopathy, thyromegaly Respiratory exam: PRESENT: clear to auscultation carolyn Cardiovascular exam: PRESENT: RRR. ABSENT: diastolic murmur, rubs, systolic murmur Pulses: PRESENT: normal dorsalis pedis pul, +2 pedal pulses bilateral Vascular exam: PRESENT: normal capillary refill GI/Abdominal exam: PRESENT: normal bowel sounds, soft. ABSENT: distended, guarding, mass, organolmegaly, rebound, tenderness Rectal exam: PRESENT: deferred Neurological exam: PRESENT: alert, awake, oriented to person, oriented to place, oriented to time, oriented to situation, CN II-XII grossly intact. ABSENT: motor sensory deficit Psychiatric exam: PRESENT: appropriate affect, normal mood. ABSENT: homicidal ideation, suicidal ideation Skin exam: PRESENT: dry, intact, warm. ABSENT: cyanosis, rash Results Laboratory Results: 04/07/19 05:30 04/06/19 11:30 04/06/19 04/06/19 04/07/19 11:30 11:30 05:30 WBC 4.5 RBC 1.41 L Hgb 5.9 L Hct 16.9 L MCV 120 H D MCH 41.6 H MCHC 34.7 RDW 28.9 H Plt Count 234 Seg Neutrophils % Not Reportable Sodium 138.1 Potassium 3.9 Chloride 105 Carbon Dioxide 27 Anion Gap 6 BUN 4 L Creatinine 0.55 Est GFR ( Amer) > 60 Glucose 119 H Calcium 8.7 Iron 201.2 H TIBC 262 % Saturation 77 Ferritin 2210.00 H Total Bilirubin AST Alkaline Phosphatase Total Protein Albumin Vitamin B12 407.0 Folate > 20.00 TSH 1.08 Free T4 1.02 04/07/19 05:30 WBC RBC Hgb Hct MCV MCH MCHC RDW Plt Count Seg Neutrophils % Sodium Potassium Chloride Carbon Dioxide Anion Gap BUN Creatinine Est GFR ( Amer) Glucose Calcium Iron TIBC % Saturation Ferritin Total Bilirubin 3.0 H AST 47 H Alkaline Phosphatase 113 Total Protein 6.8 Albumin 3.8 Vitamin B12 Folate TSH Free T4 Impressions: Venous Doppler Study 04/06/19 00:00 IMPRESSION: Negative examination for deep venous thrombosis in the left lower extremity. Assessment & Plan - Diagnosis (1) Cellulitis of left leg Is this a current diagnosis for this admission?: Yes (2) Iron overload due to repeated red blood cell transfusions Is this a current diagnosis for this admission?: Yes (3) Opioid dependence Qualifiers: Substance use status: with unspecified opioid-induced disorder Qualified Code(s): F11.29 - Opioid dependence with unspecified opioid-induced disorder Is this a current diagnosis for this admission?: Yes (4) Sickle cell anemia with crisis Is this a current diagnosis for this admission?: Yes (5) Anemia Qualifiers: 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 Qualified Code(s): D58.2 - Other hemoglobinopathies Is this a current diagnosis for this admission?: Yes - Time Time Spent with patient: 15-24 minutes Medications reviewed and adjusted accordingly: Yes Anticipated discharge: Home, Other Within: Other - Plan Summary Plan Summary: Continues to current medication
--- NOTE | 2019-04-07 11:10 | PDOC PROGRESS REPORT ---
Subjective Progress Note for:: 04/07/19 Subjective:: Patient still with considerable pain this morning but feels like the pain dose is appropriate. Reason For Visit: CELLULITIS RIGHT LEG,SCD WITH BONE PAIN CRISIS, Physical Exam Vital Signs: Temp Pulse Resp BP Pulse Ox 99.3 F 80 17 103/61 96 04/07/19 08:54 04/07/19 08:54 04/07/19 08:54 04/07/19 08:54 04/07/19 08:54 Intake & Output 04/06/19 04/07/19 04/08/19 06:59 06:59 06:59 Intake Total 177.1 3272.9 1000 Output Total 240 Balance -62.9 3272.9 1000 Weight 63.957 kg 62.6 kg General appearance: PRESENT: no acute distress, well-developed, well-nourished Head exam: PRESENT: atraumatic, normocephalic Eye exam: PRESENT: conjunctiva pink, EOMI, PERRLA. ABSENT: scleral icterus Ear exam: PRESENT: normal external ear exam Mouth exam: PRESENT: moist, tongue midline Neck exam: ABSENT: carotid bruit, JVD, lymphadenopathy, thyromegaly Respiratory exam: PRESENT: clear to auscultation carolyn. ABSENT: rales, rhonchi, wheezes Cardiovascular exam: PRESENT: RRR. ABSENT: diastolic murmur, rubs, systolic murmur Pulses: PRESENT: normal dorsalis pedis pul Vascular exam: PRESENT: normal capillary refill GI/Abdominal exam: PRESENT: normal bowel sounds, soft. ABSENT: distended, guarding, mass, organolmegaly, rebound, tenderness Rectal exam: PRESENT: deferred Extremities exam: PRESENT: full ROM. ABSENT: calf tenderness, clubbing, pedal edema Neurological exam: PRESENT: alert, awake, oriented to person, oriented to place, oriented to time, oriented to situation, CN II-XII grossly intact. ABSENT: motor sensory deficit Psychiatric exam: PRESENT: appropriate affect, normal mood. ABSENT: homicidal ideation, suicidal ideation Skin exam: PRESENT: dry, intact, warm. ABSENT: cyanosis, rash Results Laboratory Results: 04/07/19 05:30 04/06/19 11:30 04/06/19 04/06/19 04/07/19 11:30 11:30 05:30 WBC 4.5 RBC 1.41 L Hgb 5.9 L Hct 16.9 L MCV 120 H D MCH 41.6 H MCHC 34.7 RDW 28.9 H Plt Count 234 Seg Neutrophils % Not Reportable Sodium 138.1 Potassium 3.9 Chloride 105 Carbon Dioxide 27 Anion Gap 6 BUN 4 L Creatinine 0.55 Est GFR ( Amer) > 60 Glucose 119 H Calcium 8.7 Iron 201.2 H TIBC 262 % Saturation 77 Ferritin 2210.00 H Total Bilirubin AST Alkaline Phosphatase Total Protein Albumin Vitamin B12 407.0 Folate > 20.00 TSH 1.08 Free T4 1.02 04/07/19 05:30 WBC RBC Hgb Hct MCV MCH MCHC RDW Plt Count Seg Neutrophils % Sodium Potassium Chloride Carbon Dioxide Anion Gap BUN Creatinine Est GFR ( Amer) Glucose Calcium Iron TIBC % Saturation Ferritin Total Bilirubin 3.0 H AST 47 H Alkaline Phosphatase 113 Total Protein 6.8 Albumin 3.8 Vitamin B12 Folate TSH Free T4 Impressions: Venous Doppler Study 04/06/19 00:00 IMPRESSION: Negative examination for deep venous thrombosis in the left lower extremity. Status: Image reviewed by me Assessment & Plan - Diagnosis (1) Sickle cell anemia with crisis Is this a current diagnosis for this admission?: Yes Plan: Still with severe crisis requiring IV pain medication, continue with current supportive medications (2) Anemia Qualifiers: 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 Qualified Code(s): D58.2 - Other hemoglobinopathies Is this a current diagnosis for this admission?: Yes Plan: Severe, however transfusions in the past have not really improved her crises, we will monitor for now - Time Time Spent with patient: 35 or more minutes
[2019-04-08] MEDS: HYDROMORPHONE HCL INJ/PF 2 MG/ML AMPULE IV PRN ×10 (00:58→22:35)
[2019-04-08] MEDS: DIPHENHYDRAMINE HCL 50 MG/ML VIAL IV PRN ×6 (00:58→23:40)
[2019-04-08] MEDS: NORMAL SALINE 1000 ML 1,000 ML IV PRN (01:02)
[2019-04-08] MEDS: CLINDAMYCIN 600 MG/D5W RTU 600 MG/50 ML RTUPB IV SCH ×3 (01:02→17:28)
[2019-04-08 06:28] LABS: MEAN CORPUSCULAR HEMOGLOBIN 41.1 pg (27.0-33.4); MEAN CORPUSCULAR HGB CONC 34.6 g/dL (32.0-36.0); MEAN CORPUSCULAR VOLUME 119 fl (80-97); PLATELET COUNT 255 10^3/uL (150-450); RED BLOOD COUNT 1.43 10^6/uL (3.72-5.28); RED CELL DISTRIBUTION WIDTH 27.9 % (11.5-14.0); WHITE BLOOD COUNT 4.4 10^3/uL (4.0-10.5)
[2019-04-08 06:38] LABS: HEMOGLOBIN 5.9 g/dL (12.0-15.5)
[2019-04-08 06:51] LABS: ALBUMIN 3.9 g/dL (3.5-5.0); ALKALINE PHOSPHATASE 116 U/L (38-126); ASPARTATE AMINO TRANSFERASE 40 U/L (14-36); BILIRUBIN,DIRECT 0.5 mg/dL (0.0-0.4); BILIRUBIN,TOTAL 2.8 mg/dL (0.2-1.3); TOTAL PROTEIN 6.7 g/dL (6.3-8.2)
[2019-04-08 07:09] LABS: ABSOLUTE LYMPHOCYTES# (MANUAL) 0.2 10^3/uL (0.5-4.7); ABSOLUTE MONOCYTES # (MANUAL) 0.8 10^3/uL (0.1-1.4); ANISOCYTOSIS 3+; BAND NEUTROPHILS % (MANUAL) 4 % (3-5); BASOPHILS % (MANUAL) 0 % (0-2); EOSINOPHILS % (MANUAL) 14 % (0-6); LYMPHOCYTES % (MANUAL) 5 % (13-45); MONOCYTES % (MANUAL) 19 % (3-13); POIKILOCYTOSIS 2+; SEGMENTED NEUTROPHILS % (MAN) 58 % (42-78); SICKLE RED CELLS 1+; TOTAL CELLS COUNTED 100
[2019-04-08 07:10] LABS: PLATELET COMMENT ADEQUATE
[2019-04-08] MEDS: JADENU 360 MG PO SCH (08:28)
[2019-04-08] MEDS: PROMETHAZINE HCL INJ 25 MG/1 ML VIAL IV PRN ×3 (08:31→20:30)
[2019-04-08] MEDS: FOLIC ACID 1 MG TABLET PO SCH (09:22)
[2019-04-08] MEDS: OXYCODONE HCL SR 10 MG TABLET PO SCH ×2 (09:22→22:35)
[2019-04-08] MEDS: RIVAROXABAN 10 MG TABLET PO SCH (09:22)
--- NOTE | 2019-04-08 09:42 | PDOC PROGRESS REPORT ---
Subjective Progress Note for:: 04/08/19 Subjective:: Patient is currently doing fair Patient is denied any chest pain no short of breath Still have ongoing pain from sickle cell Also complaining of left leg pains Patient have a chronic dermatitis mild abrasions but not really big wound Reason For Visit: CELLULITIS RIGHT LEG,SCD WITH BONE PAIN CRISIS, Physical Exam Vital Signs: Temp Pulse Resp BP Pulse Ox 98.7 F 75 22 H 116/67 98 04/08/19 07:44 04/08/19 07:44 04/08/19 07:44 04/08/19 07:44 04/08/19 07:44 Intake & Output 04/07/19 04/08/19 04/09/19 06:59 06:59 06:59 Intake Total 3272.9 3885 1000 Balance 3272.9 3885 1000 Weight 62.6 kg 69.7 kg General appearance: PRESENT: no acute distress, well-developed, well-nourished Head exam: PRESENT: atraumatic, normocephalic Eye exam: PRESENT: conjunctiva pink, EOMI, PERRLA. ABSENT: scleral icterus Ear exam: PRESENT: normal external ear exam Mouth exam: PRESENT: moist, tongue midline Neck exam: PRESENT: full ROM. ABSENT: carotid bruit, JVD, lymphadenopathy, thyromegaly Respiratory exam: PRESENT: clear to auscultation carolyn Cardiovascular exam: PRESENT: RRR. ABSENT: diastolic murmur, rubs, systolic murmur Vascular exam: PRESENT: normal capillary refill GI/Abdominal exam: PRESENT: normal bowel sounds, soft. ABSENT: distended, guarding, mass, organolmegaly, rebound, tenderness Rectal exam: PRESENT: deferred Neurological exam: PRESENT: alert, awake, oriented to person, oriented to place, oriented to time, oriented to situation, CN II-XII grossly intact. ABSENT: motor sensory deficit Psychiatric exam: PRESENT: appropriate affect, normal mood. ABSENT: homicidal ideation, suicidal ideation Skin exam: PRESENT: dry, intact, warm. ABSENT: cyanosis, rash Results Laboratory Results: 04/08/19 06:00 04/06/19 11:30 04/08/19 04/08/19 06:00 06:00 WBC 4.4 RBC 1.43 L Hgb 5.9 L Hct 17.0 L MCV 119 H MCH 41.1 H MCHC 34.6 RDW 27.9 H Plt Count 255 Seg Neutrophils % Not Reportable Total Bilirubin 2.8 H AST 40 H Alkaline Phosphatase 116 Total Protein 6.7 Albumin 3.9 Impressions: Venous Doppler Study 04/06/19 00:00 IMPRESSION: Negative examination for deep venous thrombosis in the left lower extremity. Assessment & Plan - Diagnosis (1) Cellulitis of left leg Is this a current diagnosis for this admission?: Yes Plan: Have a chronic dermatitis (2) Iron overload due to repeated red blood cell transfusions Is this a current diagnosis for this admission?: Yes (3) Opioid dependence Qualifiers: Substance use status: with unspecified opioid-induced disorder Qualified Code(s): F11.29 - Opioid dependence with unspecified opioid-induced disorder Is this a current diagnosis for this admission?: Yes (4) Sickle cell anemia with crisis Is this a current diagnosis for this admission?: Yes (5) Anemia Qualifiers: 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
--- NOTE | 2019-04-08 11:26 | PDOC PROGRESS REPORT ---
Subjective Progress Note for:: 04/08/19 Subjective:: Pt still w/ considerable pain though controlled w/ current regimen Reason For Visit: CELLULITIS RIGHT LEG,SCD WITH BONE PAIN CRISIS, Physical Exam Vital Signs: Temp Pulse Resp BP Pulse Ox 98.7 F 75 22 H 116/67 98 04/08/19 07:44 04/08/19 07:44 04/08/19 07:44 04/08/19 07:44 04/08/19 07:44 Intake & Output 04/07/19 04/08/19 04/09/19 06:59 06:59 06:59 Intake Total 3272.9 3885 1000 Balance 3272.9 3885 1000 Weight 62.6 kg 69.7 kg General appearance: PRESENT: no acute distress, well-developed, well-nourished Head exam: PRESENT: atraumatic, normocephalic Eye exam: PRESENT: conjunctiva pink, EOMI, PERRLA. ABSENT: scleral icterus Ear exam: PRESENT: normal external ear exam Mouth exam: PRESENT: moist, tongue midline Neck exam: ABSENT: carotid bruit, JVD, lymphadenopathy, thyromegaly Respiratory exam: PRESENT: clear to auscultation carolyn. ABSENT: rales, rhonchi, wheezes Cardiovascular exam: PRESENT: RRR. ABSENT: diastolic murmur, rubs, systolic murmur Pulses: PRESENT: normal dorsalis pedis pul Vascular exam: PRESENT: normal capillary refill GI/Abdominal exam: PRESENT: normal bowel sounds, soft. ABSENT: distended, guarding, mass, organolmegaly, rebound, tenderness Rectal exam: PRESENT: deferred Extremities exam: PRESENT: full ROM. ABSENT: calf tenderness, clubbing, pedal edema Neurological exam: PRESENT: alert, awake, oriented to person, oriented to place, oriented to time, oriented to situation, CN II-XII grossly intact. ABSENT: motor sensory deficit Psychiatric exam: PRESENT: appropriate affect, normal mood. ABSENT: homicidal ideation, suicidal ideation Skin exam: PRESENT: dry, intact, warm. ABSENT: cyanosis, rash Results Laboratory Results: 04/08/19 06:00 04/06/19 11:30 04/08/19 04/08/19 06:00 06:00 WBC 4.4 RBC 1.43 L Hgb 5.9 L Hct 17.0 L MCV 119 H MCH 41.1 H MCHC 34.6 RDW 27.9 H Plt Count 255 Seg Neutrophils % Not Reportable Total Bilirubin 2.8 H AST 40 H Alkaline Phosphatase 116 Total Protein 6.7 Albumin 3.9 Impressions: Venous Doppler Study 04/06/19 00:00 IMPRESSION: Negative examination for deep venous thrombosis in the left lower extremity. Assessment & Plan - Diagnosis (1) Sickle cell anemia with crisis Is this a current diagnosis for this admission?: Yes Plan: Con't w/ current regimen, change labs to q 3 days to minimize blood draws and loss of blood from that. 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
[2019-04-08] MEDS: HYDROCORTISONE 0.5% CREAM 28.35 GM TP SCH (17:29)
[2019-04-09] MEDS: HYDROMORPHONE HCL INJ/PF 2 MG/ML AMPULE IV PRN ×9 (00:51→22:50)
[2019-04-09] MEDS: PROMETHAZINE HCL INJ 25 MG/1 ML VIAL IV PRN ×2 (00:52→11:54)
[2019-04-09] MEDS: CLINDAMYCIN 600 MG/D5W RTU 600 MG/50 ML RTUPB IV SCH ×3 (02:15→18:08)
[2019-04-09] MEDS: DIPHENHYDRAMINE HCL 50 MG/ML VIAL IV PRN ×4 (03:40→22:42)
[2019-04-09] MEDS: HYDROCORTISONE 0.5% CREAM 28.35 GM TP SCH ×2 (05:04→18:16)
[2019-04-09 06:57] LABS: ALBUMIN 3.9 g/dL (3.5-5.0); ALKALINE PHOSPHATASE 116 U/L (38-126); ASPARTATE AMINO TRANSFERASE 44 U/L (14-36); BILIRUBIN,DIRECT 0.4 mg/dL (0.0-0.4); BILIRUBIN,TOTAL 3.3 mg/dL (0.2-1.3)
--- NOTE | 2019-04-09 08:33 | PDOC PROGRESS REPORT ---
Subjective Progress Note for:: 04/09/19 Subjective:: No acute events overnight, patient still with considerable pain but the IV pain medication is working for her at current dosing Reason For Visit: CELLULITIS RIGHT LEG,SCD WITH BONE PAIN CRISIS, Physical Exam Vital Signs: Temp Pulse Resp BP Pulse Ox 98.0 F 78 20 106/63 97 04/09/19 00:00 04/09/19 00:00 04/09/19 00:00 04/09/19 00:00 04/09/19 05:06 Intake & Output 04/08/19 04/09/19 04/10/19 06:59 06:59 06:59 Intake Total 3885 1875 Balance 3885 1875 Weight 69.7 kg 69.7 kg General appearance: PRESENT: no acute distress, well-developed, well-nourished Head exam: PRESENT: atraumatic, normocephalic Eye exam: PRESENT: conjunctiva pink, EOMI, PERRLA. ABSENT: scleral icterus Ear exam: PRESENT: normal external ear exam Mouth exam: PRESENT: moist, tongue midline Neck exam: ABSENT: carotid bruit, JVD, lymphadenopathy, thyromegaly Respiratory exam: PRESENT: clear to auscultation carolyn. ABSENT: rales, rhonchi, wheezes Cardiovascular exam: PRESENT: RRR. ABSENT: diastolic murmur, rubs, systolic murmur Pulses: PRESENT: normal dorsalis pedis pul Vascular exam: PRESENT: normal capillary refill GI/Abdominal exam: PRESENT: normal bowel sounds, soft. ABSENT: distended, guarding, mass, organolmegaly, rebound, tenderness Rectal exam: PRESENT: deferred Extremities exam: PRESENT: full ROM. ABSENT: calf tenderness, clubbing, pedal edema Neurological exam: PRESENT: alert, awake, oriented to person, oriented to place, oriented to time, oriented to situation, CN II-XII grossly intact. ABSENT: motor sensory deficit Psychiatric exam: PRESENT: appropriate affect, normal mood. ABSENT: homicidal ideation, suicidal ideation Skin exam: PRESENT: dry, intact, warm. ABSENT: cyanosis, rash Results Laboratory Results: 04/08/19 06:00 04/06/19 11:30 04/09/19 06:15 Total Bilirubin 3.3 H AST 44 H Alkaline Phosphatase 116 Total Protein 7.0 Albumin 3.9 04/06/19 04:00 Clean Catch Midstream Urine Culture - Final Staph Coagulase Negative Impressions: Venous Doppler Study 04/06/19 00:00 IMPRESSION: Negative examination for deep venous thrombosis in the left lower extremity. 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
[2019-04-09] MEDS: FOLIC ACID 1 MG TABLET PO SCH (09:41)
[2019-04-09] MEDS: RIVAROXABAN 10 MG TABLET PO SCH (09:41)
[2019-04-09] MEDS: JADENU 360 MG PO SCH (09:42)
[2019-04-09] MEDS: OXYCODONE HCL SR 10 MG TABLET PO SCH ×2 (10:49→22:42)
[2019-04-09] MEDS: NORMAL SALINE 1000 ML 1,000 ML IV PRN ×2 (11:54→18:15)
--- NOTE | 2019-04-09 21:04 | PDOC PROGRESS REPORT ---
Subjective Progress Note for:: 04/09/19 Subjective:: Patient seen by the bedside, she continues to complain of pain, more so on the left leg, she is highly guarded of the left leg, MRI of the left leg is ordered to rule out bony infarct versus osteomyelitis, I am not convinced cellulitis should cause this much leg pain Reason For Visit: CELLULITIS RIGHT LEG,SCD WITH BONE PAIN CRISIS, Physical Exam Vital Signs: Temp Pulse Resp BP Pulse Ox 99.7 F 81 19 100/57 L 97 04/09/19 16:26 04/09/19 16:26 04/09/19 16:26 04/09/19 16:26 04/09/19 16:26 Intake & Output 04/08/19 04/09/19 04/10/19 06:59 06:59 06:59 Intake Total 3885 1875 1313 Balance 3885 1875 1313 Weight 69.7 kg 69.7 kg General appearance: PRESENT: no acute distress Eye exam: PRESENT: PERRLA Respiratory exam: PRESENT: clear to auscultation carolyn Cardiovascular exam: PRESENT: +S1, +S2 GI/Abdominal exam: PRESENT: soft Results Laboratory Results: 04/08/19 06:00 04/06/19 11:30 04/09/19 06:15 Total Bilirubin 3.3 H AST 44 H Alkaline Phosphatase 116 Total Protein 7.0 Albumin 3.9 04/06/19 00:52 Blood Blood Culture - Final Micrococcus Species Impressions: Venous Doppler Study 04/06/19 00:00 IMPRESSION: Negative examination for deep venous thrombosis in the left lower extremity. Assessment & Plan - Diagnosis (1) Cellulitis of left leg Is this a current diagnosis for this admission?: Yes Plan: MRI ordered to rule out Bone infarct versus osteomyelitis (2) Opioid dependence Qualifiers: Substance use status: with unspecified opioid-induced disorder Qualified Code(s): F11.29 - Opioid dependence with unspecified opioid-induced disorder Is this a current diagnosis for this admission?: Yes (3) Secondary hemochromatosis Is this a current diagnosis for this admission?: Yes (4) Sickle cell anemia Qualifiers: Sickle-cell associated disorders: with unspecified crisis Qualified Code(s): D57.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
--- NOTE | 2019-04-09 22:09 | RADIOLOGY REPORT (SQ) ---
MR LOWER EXTREMITY WITHOUT IV CONTRAST EXAM DATE: 04/09/2019 12:00 AM CDT HISTORY: Ankle pain and swelling. History of sickle cell. Evaluate for osteomyelitis. COMPARISON: None. TECHNIQUE: Multiplanar, multisequence MR imaging of the left foot without administration of intravenous gadolinium. FINDINGS: There is mildly decreased T1 signal within the distal tibia and fibula of both calcaneus which may represent red marrow hyperplasia. No abnormal T1 and T2 signal to suggest acute osteomyelitis. Flexor pollicis longus tendon synovitis. No evidence of tendon tear. Intrinsic foot musculature is preserved. No focal fluid collection is seen. No full-thickness chondral defects or talar dome AVN. IMPRESSION: 1. No evidence of acute osteomyelitis. 2. Red marrow hyperplasia in the hindfoot which may be secondary to sickle cell disease. 3. Flexor hallucis longus tenosynovitis.
[2019-04-10] MEDS: PROMETHAZINE HCL INJ 25 MG/1 ML VIAL IV PRN ×5 (00:35→21:07)
[2019-04-10] MEDS: HYDROMORPHONE HCL INJ/PF 2 MG/ML AMPULE IV PRN ×10 (01:00→23:30)
[2019-04-10] MEDS: CLINDAMYCIN 600 MG/D5W RTU 600 MG/50 ML RTUPB IV SCH ×2 (01:06→10:28)
[2019-04-10] MEDS: DIPHENHYDRAMINE HCL 50 MG/ML VIAL IV PRN ×5 (03:31→23:31)
[2019-04-10] MEDS: NORMAL SALINE 1000 ML 1,000 ML IV PRN ×3 (05:38→21:07)
[2019-04-10] MEDS: HYDROCORTISONE 0.5% CREAM 28.35 GM TP SCH ×2 (05:41→18:25)
[2019-04-10] MEDS: JADENU 360 MG PO SCH (08:17)
[2019-04-10] MEDS: FOLIC ACID 1 MG TABLET PO SCH (10:29)
[2019-04-10] MEDS: OXYCODONE HCL SR 10 MG TABLET PO SCH ×2 (10:29→21:06)
[2019-04-10] MEDS: RIVAROXABAN 10 MG TABLET PO SCH (10:29)
--- NOTE | 2019-04-10 13:19 | PDOC PROGRESS REPORT ---
Subjective Progress Note for:: 04/10/19 Subjective:: Patient states that her ankle is getting worse. There are open skin lesions now that needed to be wrapped as they are "oozing." She is not able to put any weight on this ankle due to pain. Other leg is fine to stand on. Her pain is overall controlled with current meds. No other new complaints. Reason For Visit: CELLULITIS RIGHT LEG,SCD WITH BONE PAIN CRISIS, Physical Exam Vital Signs: Temp Pulse Resp BP Pulse Ox 98.7 F 72 16 100/61 100 04/09/19 20:17 04/09/19 20:17 04/09/19 20:17 04/09/19 20:17 04/10/19 05:41 Intake & Output 04/09/19 04/10/19 04/11/19 06:59 06:59 06:59 Intake Total 1875 3267 Balance 1875 3267 Weight 69.7 kg 67.4 kg General appearance: PRESENT: well-developed, well-nourished Head exam: PRESENT: normocephalic Respiratory exam: PRESENT: clear to auscultation carolyn, unlabored Cardiovascular exam: PRESENT: RRR Extremities exam: PRESENT: other - Left ankle wrapped. bilateral venous stasis changes. Good cap refill and pulses. Neurological exam: PRESENT: alert, awake Skin exam: PRESENT: normal color Results Laboratory Results: 04/08/19 06:00 04/06/19 11:30 04/06/19 00:52 Blood Blood Culture - Final Micrococcus Species Impressions: Venous Doppler Study 04/06/19 00:00 IMPRESSION: Negative examination for deep venous thrombosis in the left lower extremity. Lower Extremity MRI 04/09/19 00:00 IMPRESSION: 1. No evidence of acute osteomyelitis. 2. Red marrow hyperplasia in the hindfoot which may be secondary to sickle cell disease. 3. Flexor hallucis longus tenosynovitis. Assessment & Plan - Diagnosis (1) Iron overload due to repeated red blood cell transfusions Is this a current diagnosis for this admission?: Yes Plan: Avoid blood transfusions. Continue Jadenu. (2) Cellulitis of left leg Is this a current diagnosis for this admission?: Yes Plan: I discussed her care with Dr. Mccabe. MRI scan was negative for osteomyelitis. Will try to change to Unasyn and see if this helps. Cultures pablo ve been negative/contaminated. Temp remains same. (3) Sickle cell anemia with crisis Is this a current diagnosis for this admission?: Yes Plan: Continue Current pain meds with O2 and fluids. Monitor labs q 2-3 days. - Time Time Spent with patient: 15-24 minutes
[2019-04-10] MEDS ORDERED: AMPICILLIN SOD/SULBACTAM 1.5 GM VIAL IV SCH (18:00)
[2019-04-10] MEDS: AMPICILLIN SODIUM/SULBACTAM NA 1.5 GM in NORMAL SALINE 50 ML IV SCH (18:24)
[2019-04-10] MEDS: METHYLPREDNISOLONE INJ 40 MG/1 ML SDV IV SCH (20:18)
--- NOTE | 2019-04-10 20:37 | PDOC PROGRESS REPORT ---
Subjective Progress Note for:: 04/10/19 Subjective:: Patient seen by the bedside, MRI of the Of the foot did not demonstrate any osteomyelitis but it demonstrated tenosynovitis of the flexor halluces longus. She says she cannot bear weight on the ankle, I suspect this could be crystal induced inflammation of the ankle joints, she will be treated with Solu-Medrol to control inflammation. I did inspect the ankle today I did not see any oozing which the nurse suggested yesterday. She was seen by the oncologist earlier, she suggested that the antibiotic to change to Unasyn, I doubt this is an infection, I think is more likely to be inflammatory process probably from crystal induced or sickle cell disease The blood culture grew micrococcus which is a contaminant Reason For Visit: CELLULITIS RIGHT LEG,SCD WITH BONE PAIN CRISIS, Physical Exam Vital Signs: Temp Pulse Resp BP Pulse Ox 98.7 F 72 16 100/61 100 04/09/19 20:17 04/09/19 20:17 04/09/19 20:17 04/09/19 20:17 04/10/19 05:41 Intake & Output 04/09/19 04/10/19 04/11/19 06:59 06:59 06:59 Intake Total 1875 3267 1050 Balance 1875 3267 1050 Weight 69.7 kg 67.4 kg General appearance: PRESENT: no acute distress Eye exam: PRESENT: PERRLA Respiratory exam: PRESENT: clear to auscultation carolyn Cardiovascular exam: PRESENT: +S1, +S2 Musculoskeletal exam: PRESENT: tenderness Neurological exam: PRESENT: alert Results Laboratory Results: 04/08/19 06:00 04/06/19 11:30 Impressions: Venous Doppler Study 04/06/19 00:00 IMPRESSION: Negative examination for deep venous thrombosis in the left lower extremity. Lower Extremity MRI 04/09/19 00:00 IMPRESSION: 1. No evidence of acute osteomyelitis. 2. Red marrow hyperplasia in the hindfoot which may be secondary to sickle cell disease. 3. Flexor hallucis longus tenosynovitis. Assessment & Plan - Diagnosis (1) Cellulitis of left leg Is this a current diagnosis for this admission?: Yes (2) Opioid dependence Qualifiers: Substance use status: with unspecified opioid-induced disorder Qualified Code(s): F11.29 - Opioid dependence with unspecified opioid-induced disorder Is this a current diagnosis for this admission?: Yes (3) Secondary hemochromatosis Is this a current diagnosis for this admission?: Yes (4) Sickle cell anemia Qualifiers: Sickle-cell associated disorders: with unspecified crisis Qualified Code(s): D57.00 - Hb-SS disease with crisis, unspecified; D57.0 - Hb-SS disease with crisis Is this a current diagnosis for this admission?: Yes (5) Vaso-occlusive sickle cell crisis Is this a current diagnosis for this admission?: Yes (6) Tenosynovitis of foot and ankle Is this a current diagnosis for this admission?: Yes Plan: Start Solu-Medrol - Time Time Spent with patient: 35 or more minutes
[2019-04-11] MEDS: AMPICILLIN SODIUM/SULBACTAM NA 1.5 GM in NORMAL SALINE 50 ML IV SCH ×5 (00:26→23:13)
[2019-04-11] MEDS: HYDROMORPHONE HCL INJ/PF 2 MG/ML AMPULE IV PRN ×10 (01:46→23:13)
[2019-04-11] MEDS: PROMETHAZINE HCL INJ 25 MG/1 ML VIAL IV PRN ×5 (01:46→21:11)
[2019-04-11] MEDS: METHYLPREDNISOLONE INJ 40 MG/1 ML SDV IV SCH ×3 (01:46→17:51)
[2019-04-11] MEDS: DIPHENHYDRAMINE HCL 50 MG/ML VIAL IV PRN ×5 (05:21→23:14)
[2019-04-11] MEDS: HYDROCORTISONE 0.5% CREAM 28.35 GM TP SCH ×2 (05:22→18:07)
[2019-04-11] MEDS: NORMAL SALINE 1000 ML 1,000 ML IV PRN ×3 (07:15→23:14)
[2019-04-11] MEDS: JADENU 360 MG PO SCH (07:26)
[2019-04-11 07:28] LABS: ALBUMIN 4.3 g/dL (3.5-5.0); ALKALINE PHOSPHATASE 142 U/L (38-126); ANION GAP 10 (5-19); ASPARTATE AMINO TRANSFERASE 42 U/L (14-36); BILIRUBIN,DIRECT 0.6 mg/dL (0.0-0.4); BILIRUBIN,TOTAL 2.3 mg/dL (0.2-1.3); BLOOD UREA NITROGEN 7 mg/dL (7-20); CALCIUM 9.1 mg/dL (8.4-10.2); CARBON DIOXIDE 26 mmol/L (22-30); CHLORIDE 104 mmol/L (98-107); GLUCOSE 194 mg/dL (75-110); POTASSIUM 4.5 mmol/L (3.6-5.0); TOTAL PROTEIN 7.5 g/dL (6.3-8.2)
[2019-04-11 07:41] LABS: HEMATOCRIT 20.3 % (36.0-47.0); MEAN CORPUSCULAR HEMOGLOBIN 41.3 pg (27.0-33.4); MEAN CORPUSCULAR HGB CONC 34.7 g/dL (32.0-36.0); MEAN CORPUSCULAR VOLUME 119 fl (80-97); PLATELET COUNT 289 10^3/uL (150-450); RED CELL DISTRIBUTION WIDTH 25.5 % (11.5-14.0)
--- NOTE | 2019-04-11 07:52 | PDOC PROGRESS REPORT ---
Subjective Progress Note for:: 04/11/19 Subjective:: Patient states her pain is about the same. She would like to have physical therapy help her to walk. She was able to sit in the chair for a short time yesterday. ROS: No chest pain. No dyspnea. No constipation. Reason For Visit: CELLULITIS RIGHT LEG,SCD WITH BONE PAIN CRISIS, Physical Exam Vital Signs: Temp Pulse Resp BP Pulse Ox 98.5 F 70 17 110/63 98 04/11/19 00:00 04/11/19 00:00 04/11/19 00:00 04/11/19 00:00 04/11/19 00:00 Intake & Output 04/10/19 04/11/19 04/12/19 06:59 06:59 06:59 Intake Total 3267 4284 Balance 3267 4284 Weight 67.4 kg 68.9 kg General appearance: PRESENT: well-developed, well-nourished Head exam: PRESENT: normocephalic Respiratory exam: PRESENT: clear to auscultation carolyn, unlabored Cardiovascular exam: PRESENT: RRR Extremities exam: ABSENT: pedal edema Neurological exam: PRESENT: alert, awake, oriented to person, oriented to place, oriented to time, oriented to situation Psychiatric exam: PRESENT: appropriate affect Skin exam: PRESENT: other - Venous stasis changes left ankle. No open lesions. Results Laboratory Results: 04/11/19 05:25 04/11/19 05:25 Sodium 140.1 Potassium 4.5 Chloride 104 Carbon Dioxide 26 Anion Gap 10 BUN 7 Creatinine 0.56 Est GFR ( Amer) > 60 Glucose 194 H Calcium 9.1 Total Bilirubin 2.3 H AST 42 H Alkaline Phosphatase 142 H Total Protein 7.5 Albumin 4.3 04/06/19 01:34 Blood Blood Culture - Final NO GROWTH IN 5 DAYS Impressions: Venous Doppler Study 04/06/19 00:00 IMPRESSION: Negative examination for deep venous thrombosis in the left lower extremity. Lower Extremity MRI 04/09/19 00:00 IMPRESSION: 1. No evidence of acute osteomyelitis. 2. Red marrow hyperplasia in the hindfoot which may be secondary to sickle cell disease. 3. Flexor hallucis longus tenosynovitis. Assessment & Plan - Diagnosis (1) Iron overload due to repeated red blood cell transfusions Is this a current diagnosis for this admission?: Yes Plan: Continue Jadenu. (2) Cellulitis of left leg Is this a current diagnosis for this admission?: Yes Plan: Antibiotics were changed yesterday. This is still quite painful, but may simply be avascular necrosis. Steroids were started yesterday. She will start to walk with PT. (3) Sickle cell anemia with crisis Is this a current diagnosis for this admission?: Yes Plan: I will re-add her Hydrea and Neurontin. Not sure why these were not continued on admission. Will also give her weekly dose of Procrit while she is here. Continue O2, fluids, pain meds same. - Time Time Spent with patient: 15-24 minutes
[2019-04-11 07:55] LABS: WHITE BLOOD COUNT 2.5 10^3/uL (4.0-10.5)
[2019-04-11] MEDS: GABAPENTIN 300 MG CAPSULE PO SCH ×3 (08:06→21:10)
[2019-04-11 08:11] LABS: ABSOLUTE LYMPHOCYTES# (MANUAL) 0.3 10^3/uL (0.5-4.7); BASOPHILS % (MANUAL) 0 % (0-2); EOSINOPHILS % (MANUAL) 0 % (0-6); LYMPHOCYTES % (MANUAL) 12 % (13-45); MONOCYTES % (MANUAL) 0 % (3-13); NUCLEATED RED BLOOD CELLS 7 /100 WBC (0); SEGMENTED NEUTROPHILS % (MAN) 88 % (42-78); TOTAL CELLS COUNTED 100
[2019-04-11 08:13] LABS: ANISOCYTOSIS 3+; OVALOCYTES SLIGHT; POIKILOCYTOSIS 1+; POLYCHROMASIA 1+; SCHISTOCYTES 1+; TEAR DROP CELLS SLIGHT
[2019-04-11 08:14] LABS: HOWELL-JOLLY BODIES PRESENT; PAPPENHEIMER BODIES PRESENT; PLATELET COMMENT ADEQUATE; PLATELET GIANT PRESENT
[2019-04-11] MEDS ORDERED: EPOETIN ALFA-EPBX 40,000 UNIT/ML VIAL (NON-ESRD) IV ONE (09:00)
[2019-04-11] MEDS: OXYCODONE HCL SR 10 MG TABLET PO SCH ×2 (09:43→21:10)
[2019-04-11] MEDS: RIVAROXABAN 10 MG TABLET PO SCH (09:43)
[2019-04-11] MEDS: FOLIC ACID 1 MG TABLET PO SCH (09:43)
[2019-04-11] MEDS: HYDROXYUREA 500 MG CAPSULE PO SCH ×2 (09:49→17:52)
--- NOTE | 2019-04-11 18:22 | PDOC PROGRESS REPORT ---
Subjective Progress Note for:: 04/11/19 Subjective:: Patient seen by the bedside, she is in deep sleep today, the RN said she has been requiring Dilaudid every 2 hours at 4 mg. I was able to arouse her. There is less swelling of the ankle today, will continue the Solu-Medrol for 2 more days to help with inflammation Reason For Visit: CELLULITIS RIGHT LEG,SCD WITH BONE PAIN CRISIS, Physical Exam Vital Signs: Temp Pulse Resp BP Pulse Ox 98.3 F 87 16 114/68 100 04/11/19 11:33 04/11/19 11:33 04/11/19 11:33 04/11/19 11:33 04/11/19 11:33 Intake & Output 04/10/19 04/11/19 04/12/19 06:59 06:59 06:59 Intake Total 3267 4284 1310 Balance 3267 4284 1310 Weight 67.4 kg 68.9 kg General appearance: PRESENT: no acute distress Eye exam: PRESENT: PERRLA Respiratory exam: PRESENT: clear to auscultation carolyn Cardiovascular exam: PRESENT: +S1, +S2 GI/Abdominal exam: PRESENT: soft Neurological exam: PRESENT: altered Results Laboratory Results: 04/11/19 05:25 04/11/19 05:25 04/11/19 04/11/19 05:25 05:25 WBC 2.5 L D RBC 1.70 L Hgb 7.0 L Hct 20.3 L MCV 119 H MCH 41.3 H MCHC 34.7 RDW 25.5 H Plt Count 289 Seg Neutrophils % Not Reportable Sodium 140.1 Potassium 4.5 Chloride 104 Carbon Dioxide 26 Anion Gap 10 BUN 7 Creatinine 0.56 Est GFR ( Amer) > 60 Glucose 194 H Calcium 9.1 Total Bilirubin 2.3 H AST 42 H Alkaline Phosphatase 142 H Total Protein 7.5 Albumin 4.3 04/06/19 01:34 Blood Blood Culture - Final NO GROWTH IN 5 DAYS Impressions: Venous Doppler Study 04/06/19 00:00 IMPRESSION: Negative examination for deep venous thrombosis in the left lower extremity. Lower Extremity MRI 04/09/19 00:00 IMPRESSION: 1. No evidence of acute osteomyelitis. 2. Red marrow hyperplasia in the hindfoot which may be secondary to sickle cell disease. 3. Flexor hallucis longus tenosynovitis. Assessment & Plan - Diagnosis (1) Cellulitis of left leg Is this a current diagnosis for this admission?: Yes (2) Opioid dependence Qualifiers: Substance use status: with unspecified opioid-induced disorder Qualified Code(s): F11.29 - Opioid dependence with unspecified opioid-induced disorder Is this a current diagnosis for this admission?: Yes (3) Secondary hemochromatosis Is this a current diagnosis for this admission?: Yes (4) Sickle cell anemia Qualifiers: Sickle-cell associated disorders: with unspecified crisis Qualified Code(s): D57.00 - Hb-SS disease with crisis, unspecified; D57.0 - Hb-SS disease with crisis Is this a current diagnosis for this admission?: Yes (5) Vaso-occlusive sickle cell crisis Is this a current diagnosis for this admission?: Yes (6) Tenosynovitis of foot and ankle Is this a current diagnosis for this admission?: Yes Plan: Continue IV Solu-Medrol - Time Time Spent with patient: 25-34 minutes
[2019-04-12] MEDS: HYDROMORPHONE HCL INJ/PF 2 MG/ML AMPULE IV PRN ×10 (01:16→23:06)
[2019-04-12] MEDS: METHYLPREDNISOLONE INJ 40 MG/1 ML SDV IV SCH ×3 (01:16→18:22)
[2019-04-12] MEDS: AMPICILLIN SODIUM/SULBACTAM NA 1.5 GM in NORMAL SALINE 50 ML IV SCH ×4 (05:08→23:07)
[2019-04-12] MEDS: GABAPENTIN 300 MG CAPSULE PO SCH ×3 (05:08→21:43)
[2019-04-12] MEDS: HYDROCORTISONE 0.5% CREAM 28.35 GM TP SCH ×2 (05:09→18:23)
[2019-04-12] MEDS: DIPHENHYDRAMINE HCL 50 MG/ML VIAL IV PRN ×5 (05:09→23:06)
[2019-04-12] MEDS: NORMAL SALINE 1000 ML 1,000 ML IV PRN ×3 (06:43→21:44)
--- NOTE | 2019-04-12 07:58 | PDOC PROGRESS REPORT ---
Subjective Progress Note for:: 04/12/19 Subjective:: Patient is still having pain mainly in her left ankle. Otherwise, feeling well. No new complaints. She was able to sit up in chair yesterday but ankles swelled afterward. Still not able to walk in [place]. PT did not come by yesterday. Reason For Visit: CELLULITIS RIGHT LEG,SCD WITH BONE PAIN CRISIS, Physical Exam Vital Signs: Temp Pulse Resp BP Pulse Ox 99.0 F 75 17 112/71 100 04/12/19 00:00 04/12/19 00:00 04/12/19 00:00 04/12/19 00:00 04/12/19 01:43 Intake & Output 04/11/19 04/12/19 04/13/19 06:59 06:59 06:59 Intake Total 4284 5478 Balance 4284 5478 Weight 68.9 kg 69.5 kg Results Laboratory Results: 04/11/19 05:25 04/11/19 05:25 04/11/19 05:25 WBC 2.5 L D RBC 1.70 L Hgb 7.0 L Hct 20.3 L MCV 119 H MCH 41.3 H MCHC 34.7 RDW 25.5 H Plt Count 289 Seg Neutrophils % Not Reportable Impressions: Venous Doppler Study 04/06/19 00:00 IMPRESSION: Negative examination for deep venous thrombosis in the left lower extremity. Lower Extremity MRI 04/09/19 00:00 IMPRESSION: 1. No evidence of acute osteomyelitis. 2. Red marrow hyperplasia in the hindfoot which may be secondary to sickle cell disease. 3. Flexor hallucis longus tenosynovitis. Assessment & Plan - Diagnosis (1) Iron overload due to repeated red blood cell transfusions Is this a current diagnosis for this admission?: Yes Plan: Continue Jadenu (2) Cellulitis of left leg Is this a current diagnosis for this admission?: Yes Plan: Improving. Some of pain is also due to avascular necrosis. (3) Sickle cell anemia with crisis Is this a current diagnosis for this admission?: Yes Plan: Improving. HGB back to baseline. - Time Time Spent with patient: 15-24 minutes
[2019-04-12] MEDS: PROMETHAZINE HCL INJ 25 MG/1 ML VIAL IV PRN ×4 (08:16→20:53)
[2019-04-12] MEDS: JADENU 360 MG PO SCH (08:23)
[2019-04-12] MEDS: OXYCODONE HCL SR 10 MG TABLET PO SCH ×2 (10:22→21:43)
[2019-04-12] MEDS: RIVAROXABAN 10 MG TABLET PO SCH (10:23)
[2019-04-12] MEDS: FOLIC ACID 1 MG TABLET PO SCH (10:23)
[2019-04-12] MEDS: HYDROXYUREA 500 MG CAPSULE PO SCH ×2 (10:27→18:22)
--- NOTE | 2019-04-12 19:58 | PDOC PROGRESS REPORT ---
Subjective Progress Note for:: 04/12/19 Subjective:: Patient seen by the bedside she is out of bed to chair Reason For Visit: CELLULITIS RIGHT LEG,SCD WITH BONE PAIN CRISIS, Physical Exam Vital Signs: Temp Pulse Resp BP Pulse Ox 98.1 F 88 17 114/70 100 04/12/19 12:11 04/12/19 12:11 04/12/19 00:00 04/12/19 12:11 04/12/19 12:11 Intake & Output 04/11/19 04/12/19 04/13/19 06:59 06:59 06:59 Intake Total 4284 5478 2440 Output Total 1000 Balance 4284 5478 1440 Weight 68.9 kg 69.5 kg General appearance: PRESENT: no acute distress Eye exam: PRESENT: PERRLA Respiratory exam: PRESENT: clear to auscultation carolyn Cardiovascular exam: PRESENT: +S1, +S2 GI/Abdominal exam: PRESENT: soft Results Laboratory Results: 04/11/19 05:25 04/11/19 05:25 Impressions: Venous Doppler Study 04/06/19 00:00 IMPRESSION: Negative examination for deep venous thrombosis in the left lower extremity. Lower Extremity MRI 04/09/19 00:00 IMPRESSION: 1. No evidence of acute osteomyelitis. 2. Red marrow hyperplasia in the hindfoot which may be secondary to sickle cell disease. 3. Flexor hallucis longus tenosynovitis. Assessment & Plan - Diagnosis (1) Cellulitis of left leg Is this a current diagnosis for this admission?: Yes (2) Opioid dependence Qualifiers: Substance use status: with unspecified opioid-induced disorder Qualified Code(s): F11.29 - Opioid dependence with unspecified opioid-induced disorder Is this a current diagnosis for this admission?: Yes (3) Secondary hemochromatosis Is this a current diagnosis for this admission?: Yes (4) Sickle cell anemia Qualifiers: Sickle-cell associated disorders: with unspecified crisis Qualified Code(s): D57.00 - Hb-SS disease with crisis, unspecified; D57.0 - Hb-SS disease with crisis Is this a current diagnosis for this admission?: Yes (5) Vaso-occlusive sickle cell crisis Is this a current diagnosis for this admission?: Yes (6) Tenosynovitis of foot and ankle Is this a current diagnosis for this admission?: Yes Plan: Continue Solu-Medrol, reduce dose - Time Time Spent with patient: 15-24 minutes
[2019-04-13] MEDS: METHYLPREDNISOLONE INJ 40 MG/1 ML SDV IV SCH ×3 (02:02→17:23)
[2019-04-13] MEDS: HYDROMORPHONE HCL INJ/PF 2 MG/ML AMPULE IV PRN ×9 (02:02→22:10)
[2019-04-13] MEDS: PROMETHAZINE HCL INJ 25 MG/1 ML VIAL IV PRN ×3 (02:02→19:26)
[2019-04-13] MEDS: DIPHENHYDRAMINE HCL 50 MG/ML VIAL IV PRN ×4 (05:07→22:11)
[2019-04-13] MEDS: AMPICILLIN SODIUM/SULBACTAM NA 1.5 GM in NORMAL SALINE 50 ML IV SCH ×3 (05:07→17:23)
[2019-04-13] MEDS: GABAPENTIN 300 MG CAPSULE PO SCH ×3 (05:07→21:22)
[2019-04-13] MEDS: NORMAL SALINE 1000 ML 1,000 ML IV PRN (05:08)
[2019-04-13] MEDS: HYDROCORTISONE 0.5% CREAM 28.35 GM TP SCH ×2 (05:27→17:24)
[2019-04-13] MEDS ORDERED: OXYCODONE HCL IR 5 MG TABLET PO PRN (06:55)
--- NOTE | 2019-04-13 08:10 | PDOC PROGRESS REPORT ---
Subjective Progress Note for:: 04/13/19 Subjective:: Patient states she is having more pain today, but she was able to get up and walk a short distance yesterday. However, she almost fell and is requiring assistance. ROS: No dyspnea. No constipation. Pain in ankle overall improving. Reason For Visit: CELLULITIS RIGHT LEG,SCD WITH BONE PAIN CRISIS, Physical Exam Vital Signs: Temp Pulse Resp BP Pulse Ox 98.3 F 79 16 119/65 97 04/12/19 23:54 04/12/19 23:54 04/12/19 23:54 04/12/19 23:54 04/13/19 00:58 Intake & Output 04/12/19 04/13/19 04/14/19 06:59 06:59 06:59 Intake Total 5478 5240 Output Total 1600 Balance 5478 3640 Weight 69.5 kg 67.8 kg General appearance: PRESENT: well-developed, well-nourished Head exam: PRESENT: normocephalic Respiratory exam: PRESENT: unlabored Extremities exam: ABSENT: pedal edema Neurological exam: PRESENT: alert, awake Psychiatric exam: PRESENT: appropriate affect Skin exam: PRESENT: normal color Results Laboratory Results: 04/11/19 05:25 04/11/19 05:25 Impressions: Venous Doppler Study 04/06/19 00:00 IMPRESSION: Negative examination for deep venous thrombosis in the left lower extremity. Lower Extremity MRI 04/09/19 00:00 IMPRESSION: 1. No evidence of acute osteomyelitis. 2. Red marrow hyperplasia in the hindfoot which may be secondary to sickle cell disease. 3. Flexor hallucis longus tenosynovitis. Assessment & Plan - Diagnosis (1) Iron overload due to repeated red blood cell transfusions Is this a current diagnosis for this admission?: Yes Plan: Continue Jadenu. Avoid transfusions. (2) Cellulitis of left leg Is this a current diagnosis for this admission?: Yes Plan: Continue Unasyn. This may simply be avascular necrosis. She will continue to try to strengthen her ankles and walk today. (3) Sickle cell anemia with crisis Is this a current diagnosis for this admission?: Yes Plan: No change to pain meds today. I will give her weekly dose of Vit D. She received Procrit this week. - Time Time Spent with patient: 15-24 minutes
[2019-04-13] MEDS ORDERED: ERGOCALCIFEROL (VITAMIN D2) 50000 UNIT (1.25 MG) CAPSULE PO ONE (09:00)
[2019-04-13] MEDS: RIVAROXABAN 10 MG TABLET PO SCH (10:27)
[2019-04-13] MEDS: OXYCODONE HCL SR 10 MG TABLET PO SCH ×2 (10:27→21:23)
[2019-04-13] MEDS: FOLIC ACID 1 MG TABLET PO SCH (10:27)
[2019-04-13] MEDS: JADENU 360 MG PO SCH (10:35)
[2019-04-13] MEDS: HYDROXYUREA 500 MG CAPSULE PO SCH ×2 (11:27→17:24)
[2019-04-13] MEDS ORDERED: NORMAL SALINE 1000 ML 1,000 ML with POTASSIUM CHLORIDE 20 MEQ, MAGNESIUM SULFATE 8 MEQ,... IV SCH ×5 (18:00)
--- NOTE | 2019-04-13 19:58 | PDOC PROGRESS REPORT ---
Subjective Progress Note for:: 04/13/19 Subjective:: She was seen by the bedside, she is out of bed to chair, she has less pain today Reason For Visit: CELLULITIS RIGHT LEG,SCD WITH BONE PAIN CRISIS, Physical Exam Vital Signs: Temp Pulse Resp BP Pulse Ox 98.4 F 98 19 110/76 97 04/13/19 16:00 04/13/19 16:00 04/13/19 16:00 04/13/19 16:00 04/13/19 16:00 Intake & Output 04/12/19 04/13/19 04/14/19 06:59 06:59 06:59 Intake Total 5478 5240 1560 Output Total 1600 Balance 5478 3640 1560 Weight 69.5 kg 67.8 kg 67.8 kg General appearance: PRESENT: no acute distress Eye exam: PRESENT: PERRLA Respiratory exam: PRESENT: clear to auscultation carolyn Cardiovascular exam: PRESENT: +S1, +S2 Neurological exam: PRESENT: alert Results Laboratory Results: 04/11/19 05:25 04/11/19 05:25 Impressions: Venous Doppler Study 04/06/19 00:00 IMPRESSION: Negative examination for deep venous thrombosis in the left lower extremity. Lower Extremity MRI 04/09/19 00:00 IMPRESSION: 1. No evidence of acute osteomyelitis. 2. Red marrow hyperplasia in the hindfoot which may be secondary to sickle cell disease. 3. Flexor hallucis longus tenosynovitis. Assessment & Plan - Diagnosis (1) Cellulitis of left leg Is this a current diagnosis for this admission?: Yes (2) Opioid dependence Qualifiers: Substance use status: with unspecified opioid-induced disorder Qualified Code(s): F11.29 - Opioid dependence with unspecified opioid-induced disorder Is this a current diagnosis for this admission?: Yes (3) Secondary hemochromatosis Is this a current diagnosis for this admission?: Yes (4) Sickle cell anemia Qualifiers: Sickle-cell associated disorders: with unspecified crisis Qualified Code(s): D57.00 - Hb-SS disease with crisis, unspecified; D57.0 - Hb-SS disease with crisis Is this a current diagnosis for this admission?: Yes (5) Vaso-occlusive sickle cell crisis Is this a current diagnosis for this admission?: Yes (6) Tenosynovitis of foot and ankle Is this a current diagnosis for this admission?: Yes Plan: Continue Solu-Medrol, reduce dose - Time Time Spent with patient: Less than 15 minutes
[2019-04-14] MEDS: PROMETHAZINE HCL INJ 25 MG/1 ML VIAL IV PRN ×6 (00:16→22:29)
[2019-04-14] MEDS: HYDROMORPHONE HCL INJ/PF 2 MG/ML AMPULE IV PRN ×11 (00:16→22:29)
[2019-04-14] MEDS: AMPICILLIN SODIUM/SULBACTAM NA 1.5 GM in NORMAL SALINE 50 ML IV SCH ×3 (00:16→11:31)
[2019-04-14] MEDS: METHYLPREDNISOLONE INJ 40 MG/1 ML SDV IV SCH ×2 (01:00→09:51)
[2019-04-14] MEDS: DIPHENHYDRAMINE HCL 50 MG/ML VIAL IV PRN ×5 (02:09→19:54)
[2019-04-14] MEDS: NORMAL SALINE 1000 ML 1,000 ML IV PRN ×2 (04:30→19:57)
[2019-04-14] MEDS: GABAPENTIN 300 MG CAPSULE PO SCH ×3 (06:21→21:23)
[2019-04-14] MEDS: HYDROCORTISONE 0.5% CREAM 28.35 GM TP SCH ×2 (06:23→17:48)
[2019-04-14] MEDS: JADENU 360 MG PO SCH (08:19)
[2019-04-14] MEDS: OXYCODONE HCL SR 10 MG TABLET PO SCH ×2 (09:51→21:23)
[2019-04-14] MEDS: FOLIC ACID 1 MG TABLET PO SCH (09:52)
[2019-04-14] MEDS: HYDROXYUREA 500 MG CAPSULE PO SCH ×2 (09:52→17:48)
[2019-04-14] MEDS: RIVAROXABAN 10 MG TABLET PO SCH (09:52)
--- NOTE | 2019-04-14 12:25 | PDOC PROGRESS REPORT ---
Subjective Progress Note for:: 04/14/19 Subjective:: Patient without new complaints. No one helped her get out of bed yesterday. The special boot for her ankle that was delivered is still laying on her counter. She is not sure what to do with it. Reason For Visit: CELLULITIS RIGHT LEG,SCD WITH BONE PAIN CRISIS, Physical Exam Vital Signs: Temp Pulse Resp BP Pulse Ox 98.1 F 83 15 124/70 100 04/14/19 08:18 04/14/19 08:18 04/14/19 08:18 04/14/19 08:18 04/14/19 08:18 Intake & Output 04/13/19 04/14/19 04/15/19 06:59 06:59 06:59 Intake Total 5240 3633 50 Output Total 1600 Balance 3640 3633 50 Weight 67.8 kg 68.9 kg General appearance: PRESENT: no acute distress Head exam: PRESENT: normocephalic Respiratory exam: PRESENT: unlabored Cardiovascular exam: PRESENT: RRR Skin exam: PRESENT: other - No change from previously. Results Laboratory Results: 04/11/19 05:25 04/11/19 05:25 Impressions: Venous Doppler Study 04/06/19 00:00 IMPRESSION: Negative examination for deep venous thrombosis in the left lower extremity. Lower Extremity MRI 04/09/19 00:00 IMPRESSION: 1. No evidence of acute osteomyelitis. 2. Red marrow hyperplasia in the hindfoot which may be secondary to sickle cell disease. 3. Flexor hallucis longus tenosynovitis. Assessment & Plan - Diagnosis (1) Iron overload due to repeated red blood cell transfusions Is this a current diagnosis for this admission?: Yes (2) Cellulitis of left leg Is this a current diagnosis for this admission?: Yes (3) Sickle cell anemia with crisis Is this a current diagnosis for this admission?: Yes - Time Time Spent with patient: 15-24 minutes - Plan Summary Plan Summary: Plan for her to walk again today and then discharge tomorrow. She is in agre ement with this plan. She should already have her regular pain medication Rx from me at home. I will refill again on Tuesday through my office if needed. Stop Antibiotics on discharge
--- NOTE | 2019-04-14 14:53 | PDOC PROGRESS REPORT ---
Subjective Progress Note for:: 04/14/19 Subjective:: Patient was seen by the bedside, the left ankle looks normal today, she has a boot by the bedside, I placed in the boot, I show her how to use the bulnt. Reason For Visit: CELLULITIS RIGHT LEG,SCD WITH BONE PAIN CRISIS, Physical Exam Vital Signs: Temp Pulse Resp BP Pulse Ox 98.1 F 86 15 115/72 100 04/14/19 08:18 04/14/19 11:01 04/14/19 08:18 04/14/19 11:01 04/14/19 11:01 Intake & Output 04/13/19 04/14/19 04/15/19 06:59 06:59 06:59 Intake Total 5240 3633 272 Output Total 1600 Balance 3640 3633 272 Weight 67.8 kg 68.9 kg General appearance: PRESENT: no acute distress Respiratory exam: PRESENT: clear to auscultation carolyn Cardiovascular exam: PRESENT: +S1, +S2 GI/Abdominal exam: PRESENT: soft Neurological exam: PRESENT: alert Results Laboratory Results: 04/11/19 05:25 04/11/19 05:25 Impressions: Venous Doppler Study 04/06/19 00:00 IMPRESSION: Negative examination for deep venous thrombosis in the left lower extremity. Lower Extremity MRI 04/09/19 00:00 IMPRESSION: 1. No evidence of acute osteomyelitis. 2. Red marrow hyperplasia in the hindfoot which may be secondary to sickle cell disease. 3. Flexor hallucis longus tenosynovitis. Assessment & Plan - Diagnosis (1) Cellulitis of left leg Is this a current diagnosis for this admission?: Yes (2) Opioid dependence Qualifiers: Substance use status: with unspecified opioid-induced disorder Qualified Code(s): F11.29 - Opioid dependence with unspecified opioid-induced disorder Is this a current diagnosis for this admission?: Yes (3) Secondary hemochromatosis Is this a current diagnosis for this admission?: Yes (4) Sickle cell anemia Qualifiers: Sickle-cell associated disorders: with unspecified crisis Qualified Code(s): D57.00 - Hb-SS disease with crisis, unspecified; D57.0 - Hb-SS disease with crisis Is this a current diagnosis for this admission?: Yes (5) Vaso-occlusive sickle cell crisis Is this a current diagnosis for this admission?: Yes (6) Tenosynovitis of foot and ankle Is this a current diagnosis for this admission?: Yes - Time Time Spent with patient: 15-24 minutes - Plan Summary Plan Summary: Discontinue IV antibiotic, IV Solu-Medrol
[2019-04-15] MEDS: HYDROMORPHONE HCL INJ/PF 2 MG/ML AMPULE IV PRN ×8 (00:38→21:28)
[2019-04-15] MEDS: DIPHENHYDRAMINE HCL 50 MG/ML VIAL IV PRN ×4 (00:38→17:22)
[2019-04-15] MEDS: PROMETHAZINE HCL INJ 25 MG/1 ML VIAL IV PRN ×3 (03:26→19:22)
[2019-04-15] MEDS: NORMAL SALINE 1000 ML 1,000 ML IV PRN ×4 (03:26→23:57)
[2019-04-15] MEDS: GABAPENTIN 300 MG CAPSULE PO SCH ×3 (05:31→21:23)
[2019-04-15] MEDS: JADENU 360 MG PO SCH (08:39)
[2019-04-15] MEDS: HYDROXYUREA 500 MG CAPSULE PO SCH ×2 (09:30→17:16)
[2019-04-15] MEDS: RIVAROXABAN 10 MG TABLET PO SCH (09:30)
[2019-04-15] MEDS: FOLIC ACID 1 MG TABLET PO SCH (09:30)
[2019-04-15] MEDS: OXYCODONE HCL SR 10 MG TABLET PO SCH ×2 (10:55→21:22)
--- NOTE | 2019-04-15 13:23 | PDOC PROGRESS REPORT ---
Subjective Progress Note for:: 04/15/19 Subjective:: Patient seen by the bedside, no new complaints hopefully discharge in 24 to 48 hours Reason For Visit: CELLULITIS RIGHT LEG,SCD WITH BONE PAIN CRISIS, Physical Exam Vital Signs: Temp Pulse Resp BP Pulse Ox 98.9 F 87 19 117/69 98 04/15/19 12:00 04/15/19 12:00 04/15/19 12:00 04/15/19 12:00 04/15/19 12:00 Intake & Output 04/14/19 04/15/19 04/16/19 06:59 06:59 06:59 Intake Total 3633 4384 905 Balance 3633 4384 905 Weight 68.9 kg General appearance: PRESENT: no acute distress Eye exam: PRESENT: PERRLA Respiratory exam: PRESENT: clear to auscultation carolyn Cardiovascular exam: PRESENT: +S1, +S2 Results Laboratory Results: 04/11/19 05:25 04/11/19 05:25 Impressions: Venous Doppler Study 04/06/19 00:00 IMPRESSION: Negative examination for deep venous thrombosis in the left lower extremity. Lower Extremity MRI 04/09/19 00:00 IMPRESSION: 1. No evidence of acute osteomyelitis. 2. Red marrow hyperplasia in the hindfoot which may be secondary to sickle cell disease. 3. Flexor hallucis longus tenosynovitis. Assessment & Plan - Diagnosis (1) Cellulitis of left leg Is this a current diagnosis for this admission?: Yes (2) Opioid dependence Qualifiers: Substance use status: with unspecified opioid-induced disorder Qualified Code(s): F11.29 - Opioid dependence with unspecified opioid-induced disorder Is this a current diagnosis for this admission?: Yes (3) Secondary hemochromatosis Is this a current diagnosis for this admission?: Yes (4) Sickle cell anemia Qualifiers: Sickle-cell associated disorders: with unspecified crisis Qualified Code (s): D57.00 - Hb-SS disease with crisis, unspecified; D57.0 - Hb-SS disease with crisis Is this a current diagnosis for this admission?: Yes (5) Vaso-occlusive sickle cell crisis Is this a current diagnosis for this admission?: Yes (6) Tenosynovitis of foot and ankle Is this a current diagnosis for this admission?: Yes - Time Time Spent with patient: 15-24 minutes
[2019-04-16] MEDS: HYDROMORPHONE HCL INJ/PF 2 MG/ML AMPULE IV PRN ×9 (00:38→22:09)
[2019-04-16] MEDS: DIPHENHYDRAMINE HCL 50 MG/ML VIAL IV PRN ×4 (00:39→22:00)
[2019-04-16] MEDS: NORMAL SALINE 1000 ML 1,000 ML IV PRN ×3 (06:00→18:47)
[2019-04-16] MEDS: GABAPENTIN 300 MG CAPSULE PO SCH ×3 (06:00→22:00)
--- NOTE | 2019-04-16 07:59 | PDOC PROGRESS REPORT ---
Subjective Progress Note for:: 04/16/19 Subjective:: Patient states that her pain in her arms and back has significantly increased from Tuesday. She is reluctant to go home. ROS: She denies constipation. No fevers. Able to walk some. Reason For Visit: CELLULITIS RIGHT LEG,SCD WITH BONE PAIN CRISIS, Physical Exam Vital Signs: Temp Pulse Resp BP Pulse Ox 99.3 F 88 22 H 115/61 96 04/15/19 23:36 04/15/19 23:36 04/15/19 23:36 04/15/19 23:36 04/15/19 23:36 Intake & Output 04/15/19 04/16/19 04/17/19 06:59 06:59 06:59 Intake Total 4384 5109 Balance 4384 5109 Weight 69.9 kg General appearance: PRESENT: well-developed, well-nourished Head exam: PRESENT: normocephalic Respiratory exam: PRESENT: unlabored Neurological exam: PRESENT: alert, awake Psychiatric exam: PRESENT: appropriate affect Skin exam: PRESENT: normal color Results Laboratory Results: 04/11/19 05:25 04/11/19 05:25 Impressions: Venous Doppler Study 04/06/19 00:00 IMPRESSION: Negative examination for deep venous thrombosis in the left lower extremity. Lower Extremity MRI 04/09/19 00:00 IMPRESSION: 1. No evidence of acute osteomyelitis. 2. Red marrow hyperplasia in the hindfoot which may be secondary to sickle cell disease. 3. Flexor hallucis longus tenosynovitis. Assessment & Plan - Diagnosis (1) Iron overload due to repeated red blood cell transfusions Is this a current diagnosis for this admission?: Yes Plan: Continue Jadenu and avoid blood transfusions. (2) Cellulitis of left leg Is this a current diagnosis for this admission?: Yes Plan: Now resolved. ABX have finished. (3) Sickle cell anemia with crisis Is this a current diagnosis for this admission?: Yes Plan: I have STRONGLY encouraged her to get out of bed and walk. I will check CBC, CMP, LDH today, but she should be discharged later today or first thing tomorrow at the latest. - Time Time Spent with patient: Less than 15 minutes
[2019-04-16 08:36] LABS: HEMATOCRIT 20.6 % (36.0-47.0); MEAN CORPUSCULAR HGB CONC 33.7 g/dL (32.0-36.0); MEAN CORPUSCULAR VOLUME 122 fl (80-97); PLATELET COUNT 307 10^3/uL (150-450); RED CELL DISTRIBUTION WIDTH 24.7 % (11.5-14.0)
[2019-04-16 09:02] LABS: ALBUMIN 3.6 g/dL (3.5-5.0); ALKALINE PHOSPHATASE 112 U/L (38-126); ANION GAP 8 (5-19); ASPARTATE AMINO TRANSFERASE 38 U/L (14-36); BILIRUBIN,DIRECT 0.4 mg/dL (0.0-0.4); BLOOD UREA NITROGEN 11 mg/dL (7-20); CALCIUM 8.3 mg/dL (8.4-10.2); CARBON DIOXIDE 27 mmol/L (22-30); CHLORIDE 104 mmol/L (98-107); GLUCOSE 84 mg/dL (75-110); POTASSIUM 3.9 mmol/L (3.6-5.0); TOTAL PROTEIN 6.6 g/dL (6.3-8.2)
[2019-04-16 09:14] LABS: ABSOLUTE MONOCYTES # (MANUAL) 0.2 10^3/uL (0.1-1.4); BASOPHILS % (MANUAL) 0 % (0-2); EOSINOPHILS % (MANUAL) 2 % (0-6); LYMPHOCYTES % (MANUAL) 40 % (13-45); MONOCYTES % (MANUAL) 3 % (3-13); NUCLEATED RED BLOOD CELLS 134 /100 WBC (0); SEGMENTED NEUTROPHILS % (MAN) 55 % (42-78); TOTAL CELLS COUNTED 100
[2019-04-16 09:16] LABS: HYPOCHROMASIA 1+; POLYCHROMASIA 1+
[2019-04-16 09:17] LABS: ANISOCYTOSIS 3+; OVALOCYTES 1+; PLATELET COMMENT ADEQUATE; SICKLE RED CELLS SLIGHT; TARGET CELLS 1+
[2019-04-16] MEDS: RIVAROXABAN 10 MG TABLET PO SCH (09:29)
[2019-04-16] MEDS: JADENU 360 MG PO SCH (09:29)
[2019-04-16] MEDS: OXYCODONE HCL SR 10 MG TABLET PO SCH ×2 (09:29→21:59)
[2019-04-16] MEDS: FOLIC ACID 1 MG TABLET PO SCH (09:29)
[2019-04-16] MEDS: HYDROXYUREA 500 MG CAPSULE PO SCH ×2 (09:30→17:28)
--- NOTE | 2019-04-16 20:49 | PDOC PROGRESS REPORT ---
Subjective Progress Note for:: 04/16/19 Subjective:: Patient seen by the bedside, she seems to have improved, in agreement for discharge home tomorrow Reason For Visit: CELLULITIS RIGHT LEG,SCD WITH BONE PAIN CRISIS, Physical Exam Vital Signs: Temp Pulse Resp BP Pulse Ox 100.0 F 88 20 109/66 96 04/16/19 16:00 04/16/19 16:00 04/16/19 16:00 04/16/19 16:00 04/16/19 16:00 Intake & Output 04/15/19 04/16/19 04/17/19 06:59 06:59 06:59 Intake Total 4384 5109 2497 Balance 4384 5109 2497 Weight 69.9 kg General appearance: PRESENT: no acute distress Eye exam: PRESENT: PERRLA Respiratory exam: PRESENT: clear to auscultation carolyn Cardiovascular exam: PRESENT: +S1, +S2 Results Laboratory Results: 04/16/19 08:18 04/16/19 08:18 04/16/19 04/16/19 08:18 08:18 WBC 5.0 RBC 1.70 L Hgb 7.0 L Hct 20.6 L MCV 122 H MCH 41.0 H MCHC 33.7 RDW 24.7 H Plt Count 307 Seg Neutrophils % Not Reportable Sodium 139.0 Potassium 3.9 Chloride 104 Carbon Dioxide 27 Anion Gap 8 BUN 11 Creatinine 0.65 Est GFR ( Amer) > 60 Glucose 84 Calcium 8.3 L Total Bilirubin 3.0 H AST 38 H Alkaline Phosphatase 112 Total Protein 6.6 Albumin 3.6 Impressions: Venous Doppler Study 04/06/19 00:00 IMPRESSION: Negative examination for deep venous thrombosis in the left lower extremity. Lower Extremity MRI 04/09/19 00:00 IMPRESSION: 1. No evidence of acute osteomyelitis. 2. Red marrow hyperplasia in the hindfoot which may be secondary to sickle cell disease. 3. Flexor hallucis longus tenosynovitis. Assessment & Plan - Diagnosis (1) Cellulitis of left leg Is this a current diagnosis for this admission?: Yes (2) Opioid dependence Qualifiers: Substance use status: with unspecified opioid-induced disorder Qualified Code(s): F11.29 - Opioid dependence with unspecified opioid-induced disorder Is this a current diagnosis for this admission?: Yes (3) Secondary hemochromatosis Is this a current diagnosis for this admission?: Yes (4) Sickle cell anemia Qualifiers: Sickle-cell associated disorders: with unspecified crisis Qualified Code(s): D57.00 - Hb-SS disease with crisis, unspecified; D57.0 - Hb-SS disease with crisis Is this a current diagnosis for this admission?: Yes (5) Vaso-occlusive sickle cell crisis Is this a current diagnosis for this admission?: Yes (6) Tenosynovitis of foot and ankle Is this a current diagnosis for this admission?: Yes - Time Time Spent with patient: Less than 15 minutes Level of Care: TELE
--- NOTE | 2019-04-16 20:50 | PDOC DISCHARGE SUMMARY ---
Impression - Admit/DC Date/PCP Admission Date/Primary Care Provider: 04/06/19 01:51 HOMA BARRAZA MD Discharge Date: 04/17/19 - Discharge Diagnosis (1) Cellulitis of left leg Is this a current diagnosis for this admission?: Yes (2) Opioid dependence Is this a current diagnosis for this admission?: Yes (3) Secondary hemochromatosis Is this a current diagnosis for this admission?: Yes (4) Sickle cell anemia Is this a current diagnosis for this admission?: Yes (5) Vaso-occlusive sickle cell crisis Is this a current diagnosis for this admission?: Yes (6) Tenosynovitis of foot and ankle Is this a current diagnosis for this admission?: Yes - Additional Information Resuscitation Status: Full Code Referrals: HOMA BARRAZA MD [Primary Care Provider] - 04/27/19 9:15 am Home Medications: RX: Epoetin Federico [Procrit Inj 40,000 Unit/1 ml Vial (Renal)] 60,000 unit SQ FR 11/20/18 RX: Folic Acid [Folvite 1 mg Tablet] 1 mg PO DAILY 11/20/18 RX: Gabapentin [Neurontin 300 mg Capsule] 300 mg PO Q8 11/20/18 RX: Hydroxyurea [Hydrea 500 mg Capsule] 500 mg PO TID 11/20/18 RX: Multivitamin [Multiple Vitamins] 1 tab PO DAILY 11/20/18 RX: Oxycodone HCl [Oxycodone HCl 10 MG Tablet] 10 mg PO Q6HP PRN 11/20/18 RX: Oxycodone HCl [Oxycontin] 30 mg PO Q12 11/20/18 RX: Promethazine HCl [Phenergan 25 mg Tablet] 25 mg PO Q6HP PRN 11/20/18 RX: Rivaroxaban [Xarelto] 20 mg PO QPM 11/20/18 History of Present Illiness History of Present Illness: WILLIE ALAN is a 49 year old female,Patient with history of sickle cell disease with multiple hospitalization, he came to the emergency room for evaluation of left leg swelling, he was also found to be very anemic with hemoglobin of 5., She stated according to the ED record that she was having pain, fever and chills of both legs on the left leg was was on the right leg, in the emergency room she was diagnosed as cellulitis, she was given a dose of vancomycin, she was also transfused with packed red blood cells. 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 She is also heavily opioid dependent, she requires heavy doses of opioid for pain control, she is on high dosages of OxyContin and oxycodone outpatient ,she also required IV dosage of Dilaudid inpatient. Hospital Course Hospital Course: Patient was admitted for the management of sickle cell vaso-occlusive bone pain crisis, cellulitis of the left leg, tenosynovitis of the left ankle. She presented with initially with symptoms and signs that suggest cellulitis of the left leg, she was empirically treated with IV antibiotic clindamycin, she has underlying sickle cell disease she also stated that she was having severe pain, consultation was obtained from her leathersmith, pain control was achieved with Dilaudid, oxycodone and OxyContin. 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 She is strongly opioid dependent.She also was seen by physical therapy, she was prescribed ankle boot Physical Exam Vital Signs: Temp Pulse Resp BP Pulse Ox 100.0 F 88 20 109/66 96 04/16/19 16:00 04/16/19 16:00 04/16/19 16:00 04/16/19 16:00 04/16/19 16:00 Intake & Output 04/15/19 04/16/19 04/17/19 06:59 06:59 06:59 Intake Total 4386 5108 7558 Balance 4380 510 249 Weight 69.9 kg General appearance: PRESENT: no acute distress Eye exam: PRESENT: PERRLA Respiratory exam: PRESENT: clear to auscultation carolyn Cardiovascular exam: PRESENT: +S1, +S2 GI/Abdominal exam: PRESENT: soft Neurological exam: PRESENT: alert Results Laboratory Results: WBC 5.0 10^3/uL (4.0-10.5) 04/16/19 08:18 RBC 1.70 10^6/uL (3.72-5.28) L 04/16/19 08:18 Hgb 7.0 g/dL (12.0-15.5) L 04/16/19 08:18 Hct 20.6 % (36.0-47.0) L 04/16/19 08:18 MCV 122 fl (80-97) H 04/16/19 08:18 MCH 41.0 pg (27.0-33.4) H 04/16/19 08:18 MCHC 33.7 g/dL (32.0-36.0) 04/16/19 08:18 RDW 24.7 % (11.5-14.0) H 04/16/19 08:18 Plt Count 307 10^3/uL (150-450) 04/16/19 08:18 Lymph % (Auto) Not Reportable 04/16/19 08:18 Elk % (Auto) Not Reportable 04/16/19 08:18 Eos % (Auto) Not Reportable 04/16/19 08:18 Baso % (Auto) Not Reportable 04/16/19 08:18 Reticulocyte # 0.068 10^6/uL (0.028-0.122) 04/05/19 23:52 Absolute Neuts (auto) Not Reportable 04/16/19 08:18 Absolute Lymphs (auto) Not Reportable 04/16/19 08:18 Absolute Monos (auto) Not Reportable 04/16/19 08:18 Absolute Eos (auto) Not Reportable 04/16/19 08:18 Absolute Basos (auto) Not Reportable 04/16/19 08:18 Total Counted 100 04/16/19 08:18 Seg Neutrophils % Not Reportable 04/16/19 08:18 Seg Neuts % (Manual) 55 % (42-78) 04/16/19 08:18 Band Neutrophils % 4 % (3-5) 04/08/19 06:00 Lymphocytes % (Manual) 40 % (13-45) 04/16/19 08:18 Monocytes % (Manual) 3 % (3-13) 04/16/19 08:18 Eosinophils % (Manual) 2 % (0-6) 04/16/19 08:18 Basophils % (Manual) 0 % (0-2) 04/16/19 08:18 Abs Neuts (Manual) 2.8 10^3/uL (1.7-8.2) 04/16/19 08:18 Abs Lymphs (Manual) 2.0 10^3/uL (0.5-4.7) 04/16/19 08:18 Abs Monocytes (Manual) 0.2 10^3/uL (0.1-1.4) 04/16/19 08:18 Absolute Eos (Manual) 0.1 10^3/uL (0.0-0.6) 04/16/19 08:18 Abs Basophils (Manual) 0.0 10^3/uL (0.0-0.2) 04/16/19 08:18 Nucleated RBCs 134 /100 WBC (0) 04/16/19 08:18 Toxic Granulation 1+ 04/05/19 23:52 Giant Platelets PRESENT 04/11/19 05:25 Platelet Comment ADEQUATE 04/16/19 08:18 Polychromasia 1+ 04/16/19 08:18 Hypochromasia 1+ 04/16/19 08:18 Poikilocytosis 1+ 04/11/19 05:25 Anisocytosis 3+ 04/16/19 08:18 Macrocytosis 3+ 04/16/19 08:18 Pappenheimer Bodies PRESENT 04/11/19 05:25 Sickle Cells SLIGHT 04/16/19 08:18 Target Cells 1+ 04/16/19 08:18 Tear Drop Cells SLIGHT 04/11/19 05:25 Ovalocytes 1+ 04/16/19 08:18 [place] Bodies PRESENT 04/11/19 05:25 Schistocytes 1+ 04/11/19 05:25 Retic Count (auto) 5.86 % (0.66-2.85) H 04/05/19 23:52 Sickle Cell Screen POSITIVE (NEGATIVE) 04/06/19 01:54 Sodium 139.0 mmol/L (137-145) 04/16/19 08:18 Potassium 3.9 mmol/L (3.6-5.0) 04/16/19 08:18 Chloride 104 mmol/L (98-107) 04/16/19 08:18 Carbon Dioxide 27 mmol/L (22-30) 04/16/19 08:18 Anion Gap 8 (5-19) 04/16/19 08:18 BUN 11 mg/dL (7-20) 04/16/19 08:18 Creatinine 0.65 mg/dL (0.52-1.25) 04/16/19 08:18 Est GFR ( Amer) > 60 (>60) 04/16/19 08:18 Est GFR (MDRD) Non-Af > 60 (>60) 04/16/19 08:18 Glucose 84 mg/dL (75-110) 04/16/19 08:18 Calcium 8.3 mg/dL (8.4-10.2) L 04/16/19 08:18 Iron 201.2 ug/dL (37-170) H 04/06/19 11:30 TIBC 262 ug/dL (250-450) 04/06/19 11:30 % Saturation 77 % 04/06/19 11:30 Ferritin 2210.00 ng/mL (11.1-264.0) H 04/06/19 11:30 Total Bilirubin 3.0 mg/dL (0.2-1.3) H 04/16/19 08:18 Direct Bilirubin 0.4 mg/dL (0.0-0.4) 04/16/19 08:18 Neonat Total Bilirubin Not Reportable 04/16/19 08:18 Neonat Direct Bilirubin Not Reportable 04/16/19 08:18 Neonat Indirect Bili Not Reportable 04/16/19 08:18 AST 38 U/L (14-36) H 04/16/19 08:18 ALT 52 U/L (<35) 04/16/19 08:18 Alkaline Phosphatase 112 U/L (38-126) 04/16/19 08:18 Lactate Dehydrogenase 240 U/L (120-246) 04/16/19 08:18 Total Protein 6.6 g/dL (6.3-8.2) 04/16/19 08:18 Albumin 3.6 g/dL (3.5-5.0) 04/16/19 08:18 Vitamin B12 407.0 pg/mL (239-931) 04/06/19 11:30 Folate > 20.00 ng/mL (>2.76) 04/06/19 11:30 TSH 1.08 uIU/mL (0.47-4.68) 04/06/19 11:30 Free T4 1.02 ng/dL (0.78-2.19) 04/06/19 11:30 Urine Color YELLOW 04/06/19 04:00 Urine Appearance CLEAR 04/06/19 04:00 Urine pH 6.0 (5.0-9.0) 04/06/19 04:00 Ur Specific [place] 1.009 04/06/19 04:00 Urine Protein NEGATIVE mg/dL (NEGATIVE) 04/06/19 04:00 Urine Glucose (UA) NEGATIVE mg/dL (NEGATIVE) 04/06/19 04:00 Urine Ketones NEGATIVE mg/dL (NEGATIVE) 04/06/19 04:00 Urine Blood NEGATIVE (NEGATIVE) 04/06/19 04:00 Urine Nitrite NEGATIVE (NEGATIVE) 04/06/19 04:00 Urine Bilirubin NEGATIVE (NEGATIVE) 04/06/19 04:00 Urine Urobilinogen 4.0 mg/dL (<2.0) H 04/06/19 04:00 Ur Leukocyte Esterase NEGATIVE (NEGATIVE) 04/06/19 04:00 Urine WBC (Auto) 0 /HPF 04/06/19 04:00 Urine Mucus (Auto) RARE /LPF 04/06/19 04:00 Urine Ascorbic Acid NEGATIVE (NEGATIVE) 04/06/19 04:00 Urine Opiates Screen UNCONFIRMED POSITIVE 04/06/19 04:00 Urine Methadone Screen NEGATIVE 04/06/19 04:00 Ur Barbiturates Screen NEGATIVE 04/06/19 04:00 Ur Phencyclidine Scrn NEGATIVE 04/06/19 04:00 Ur Amphetamines Screen NEGATIVE 04/06/19 04:00 U Benzodiazepines Scrn NEGATIVE 04/06/19 04:00 Urine Cocaine Screen NEGATIVE 04/06/19 04:00 U Marijuana (THC) Screen NEGATIVE 04/06/19 04:00 Slides for Path Review PATHOLOGIST REVIEWED 04/05/19 23:52 Blood Type O POSITIVE 04/06/19 01:34 Antibody Screen NEGATIVE 04/06/19 01:34 Antigen Identification Cancelled 04/06/19 01:54 Crossmatch See Detail 04/06/19 01:34 Impressions: Venous Doppler Study 04/06/19 00:00 IMPRESSION: Negative examination for deep venous thrombosis in the left lower extremity. Lower Extremity MRI 04/09/19 00:00 IMPRESSION: 1. No evidence of acute osteomyelitis. 2. Red marrow hyperplasia in the hindfoot which may be secondary to sickle cell disease. 3. Flexor hallucis longus tenosynovitis. Stroke Is this a Stroke Patient?: No Acute Heart Failure - Is this a Heart Failure Patient?: No
[2019-04-17] MEDS: HYDROMORPHONE HCL INJ/PF 2 MG/ML AMPULE IV PRN ×8 (00:11→16:21)
[2019-04-17] MEDS: DIPHENHYDRAMINE HCL 50 MG/ML VIAL IV PRN ×4 (02:07→14:00)
[2019-04-17] MEDS: NORMAL SALINE 1000 ML 1,000 ML IV PRN (02:10)
[2019-04-17] MEDS: GABAPENTIN 300 MG CAPSULE PO SCH ×2 (05:48→13:59)
[2019-04-17] MEDS: JADENU 360 MG PO SCH (07:42)
--- NOTE | 2019-04-17 08:06 | PDOC PROGRESS REPORT ---
Subjective Progress Note for:: 04/17/19 Subjective:: Patient states that she is not able to walk at all on her own. She now requests rehab stay in order to safely ambulate at home. No new complaints. Reason For Visit: CELLULITIS RIGHT LEG,SCD WITH BONE PAIN CRISIS, Physical Exam Vital Signs: Temp Pulse Resp BP Pulse Ox 99.1 F 88 17 101/59 L 96 04/16/19 23:53 04/16/19 23:53 04/16/19 23:53 04/16/19 23:53 04/16/19 23:53 Intake & Output 04/16/19 04/17/19 04/18/19 06:59 06:59 06:59 Intake Total 5109 4277 Balance 5109 4277 Weight 69.9 kg 68.6 kg General appearance: PRESENT: well-developed, well-nourished Head exam: PRESENT: normocephalic Respiratory exam: PRESENT: unlabored Extremities exam: ABSENT: pedal edema Musculoskeletal exam: PRESENT: normal inspection Neurological exam: PRESENT: alert, awake Psychiatric exam: PRESENT: appropriate affect Skin exam: PRESENT: normal color Results Laboratory Results: 04/16/19 08:18 04/16/19 08:18 04/16/19 04/16/19 08:18 08:18 WBC 5.0 RBC 1.70 L Hgb 7.0 L Hct 20.6 L MCV 122 H MCH 41.0 H MCHC 33.7 RDW 24.7 H Plt Count 307 Seg Neutrophils % Not Reportable Sodium 139.0 Potassium 3.9 Chloride 104 Carbon Dioxide 27 Anion Gap 8 BUN 11 Creatinine 0.65 Est GFR ( Amer) > 60 Glucose 84 Calcium 8.3 L Total Bilirubin 3.0 H AST 38 H Alkaline Phosphatase 112 Total Protein 6.6 Albumin 3.6 Impressions: Venous Doppler Study 04/06/19 00:00 IMPRESSION: Negative examination for deep venous thrombosis in the left lower extremity. Lower Extremity MRI 04/09/19 00:00 IMPRESSION: 1. No evidence of acute osteomyelitis. 2. Red marrow hyperplasia in the hindfoot which may be secondary to sickle cell disease. 3. Flexor hallucis longus tenosynovitis. Assessment & Plan - Diagnosis (1) Iron overload due to repeated red blood cell transfusions Is this a current diagnosis for this admission?: Yes (2) Cellulitis of left leg Is this a current diagnosis for this admission?: Yes (3) Sickle cell anemia with crisis Is this a current diagnosis for this admission?: Yes - Time Time Spent with patient: Less than 15 minutes - Plan Summary Plan Summary: All labs are back to baseline. No evidence of continued Sickle Cell Crisis. I have explained that there is no reason for her to stay here in the hospital. She requests senior living rehab stay. I will see if this is possible. If not, she will need discharge home with PT at home.
[2019-04-17] MEDS: PROMETHAZINE HCL INJ 25 MG/1 ML VIAL IV PRN ×2 (08:32→16:21)
[2019-04-17] MEDS: RIVAROXABAN 10 MG TABLET PO SCH (09:57)
[2019-04-17] MEDS: FOLIC ACID 1 MG TABLET PO SCH (09:57)
[2019-04-17] MEDS: OXYCODONE HCL SR 10 MG TABLET PO SCH (09:57)
[2019-04-17] MEDS: HYDROXYUREA 500 MG CAPSULE PO SCH (09:57)
[2019-04-17 16:09] VITALS: BP 107/69
== END 2019-04-17 18:00 | disposition home health service (06) | DRG 602 ==
LOC: ER 16:26 → EH 04-06 01:51 → 5 04-06 14:43
PROVIDERS: ADMIT Internal Medicine; ATTEND Internal Medicine
PROC: 30233N1 Transfusion of Nonautologous Red Blood Cells into Peripheral Vein, Percutaneous Approach (ICD-10-PCS; principal; 2019-04-06)
DX: L03.116 Cellulitis of left lower limb (principal); D57.00 Hb-SS disease with crisis, unspecified; F11.20 Opioid dependence, uncomplicated; M65.872 Other synovitis and tenosynovitis, left ankle and foot; E83.111 Hemochromatosis due to repeated red blood cell transfusions; Z86.14 Personal history of Methicillin resistant Staphylococcus aureus infection; Z90.79 Acquired absence of other genital organ(s)
CPT/HCPCS: 36415; 36430; 36591; 80048; 80053; 80076; 80307; 81001; 82607; 82728; 82746; 83540; 83550; 83615; 84439; 84443; 85025; 85045; 85660; 86850; 86900; 86901; 86902; 86920; 87040; 87077; 87086; 93971; 96374; 96375; 99284; J0295; J1170; J1200; J1642; J2550; J2920; J3370; J3411; J3475; J3480; J3490; J7030; P9016; Q5106

== ENCOUNTER 2019-05-18 19:12 | Inpatient (IN) | payer MEDICAID ==
[2019-05-18] MEDS ORDERED: NORMAL SALINE 1000 ML 1,000 ML IV ONE (20:20)
[2019-05-18] MEDS ORDERED: HYDROMORPHONE HCL INJ/PF 2 MG/ML AMPULE IV ONE (20:21)
[2019-05-18] MEDS ORDERED: DIPHENHYDRAMINE HCL 50 MG/ML VIAL IV ONE (20:21)
[2019-05-18] MEDS ORDERED: ONDANSETRON HCL INJ/PF 4 MG/2 ML SDV IV ONE (20:21)
--- NOTE | 2019-05-18 20:22 | ER Document Report ---
ED Medical Screen (RME) - General Chief Complaint: Sickle Cell Crisis Stated Complaint: SICKLE CELL CRISIS Time Seen by Provider: 05/18/19 20:20 Primary Care Provider: HOMA BARRAZA MD [Primary Care Provider] - Follow up as needed Notes: Patient is a 49-year-old female history of sickle cell presents to the emergency department in a crisis. Patient voices she has pain in bilateral upper extremities, bilateral lower extremities and chest. Patient's denying any URI symptoms or fever. Patient voices she is unsure if she had a history of acute chest syndrome. States she did take her oxycodone approximately 4:00 this afternoon. GENERAL: Alert, interacts well. No acute distress. LUNGS: Clear to auscultation bilaterally, no wheezes, rales, or rhonchi. No respiratory distress. I have greeted and performed a rapid initial assessment of this patient. A comprehensive ED assessment and evaluation of the patient, analysis of test results and completion of the medical decision making process will be conducted by additional ED providers. I have specifically instructed the patient or family members with the patient to immediately return to any nursing staff should anything change in the patient's condition or with their chief complaint. This medical record was dictated with voice recognizing software. There may be grammatical, syntax errors that are unintended. TRAVEL OUTSIDE OF THE [place] IN LAST 30 DAYS: No - Related Data Allergies/Adverse Reactions: doxycycline [Doxycycline] Allergy (Severe, Verified 02/14/19 18:16) Past Medical History - Past Medical History Cardiac Medical History: Reports: Hx Heart Murmur Denies: Hx Atrial Fibrillation, Hx Congestive Heart Failure, Hx Coronary Artery Disease, Hx Heart Attack, Hx Hypercholesterolemia, Hx Hypertension, Hx Peripheral Vascular Disease Pulmonary Medical History: Denies: Hx Tuberculosis Neurological Medical History: Denies: Hx Seizures Renal/ Medical History: Reports: Hx Ovarian Cysts. 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 Denies: Hx HIV Past Surgical History: Reports: Hx Appendectomy, Hx Section, Hx Cholecystectomy, Hx Orthopedic Surgery - R knee, Hx Tonsillectomy. Denies: Hx Bowel Surgery, Hx Coronary Artery Bypass Graft, Hx Gastric Bypass Surgery, Hx Herniorrhaphy, Hx Mastectomy, Hx Pacemaker, Hx Tubal Ligation - Immunizations Immunizations up to date: Yes Hx Diphtheria, Pertussis, Tetanus Vaccination: Yes Physical Exam - Vital signs Vitals: Temp Pulse Resp BP Pulse Ox 98.9 F 80 16 101/61 99 05/18/19 19:28 05/18/19 19:28 05/18/19 19:28 05/18/19 19:28 05/18/19 19:28 Course - Vital Signs Vital signs: Temp Pulse Resp BP Pulse Ox 98.9 F 80 16 101/61 99 05/18/19 19:28 05/18/19 19:28 05/18/19 19:28 05/18/19 19:28 05/18/19 19:28 Doctor's Discharge - Discharge Referrals: HOMA BARRAZA MD [Primary Care Provider] - Follow up as needed
--- NOTE | 2019-05-18 21:15 | RADIOLOGY REPORT (SQ) ---
EXAM DESCRIPTION: CLINICAL HISTORY: 49 years Female sickle cell pain COMPARISON: 03/24/2019 FINDINGS: The cardiomediastinal silhouette appears unremarkable. No consolidating infiltrates or pleural effusions. No pneumothorax. There is an ovoid soft tissue density which was not clearly seen on previous examinations in the left lung base measuring 1.4 cm. This may be associated with an anterior rib end but an underlying pulmonary nodules not excluded. Recommend CT of the chest. IMPRESSION: Nodular focus over the left lung base not clearly present on prior studies. Recommend correlation with CT of the chest No evidence of acute process
[2019-05-18 21:42] LABS: ALBUMIN 4.7 g/dL (3.5-5.0); ALKALINE PHOSPHATASE 146 U/L (38-126); ANION GAP 6 (5-19); ASPARTATE AMINO TRANSFERASE 64 U/L (14-36); BILIRUBIN,DIRECT 0.7 mg/dL (0.0-0.4); BILIRUBIN,TOTAL 4.7 mg/dL (0.2-1.3); BLOOD UREA NITROGEN 12 mg/dL (7-20); CALCIUM 9.2 mg/dL (8.4-10.2); CARBON DIOXIDE 28 mmol/L (22-30); CHLORIDE 105 mmol/L (98-107); GLUCOSE 99 mg/dL (75-110); POTASSIUM 4.5 mmol/L (3.6-5.0); TOTAL PROTEIN 7.8 g/dL (6.3-8.2)
[2019-05-18 21:54] LABS: ABSOLUTE RETICS # 0.053 10^6/uL (0.028-0.122); HEMATOCRIT 19.7 % (36.0-47.0); MEAN CORPUSCULAR HEMOGLOBIN 43.6 pg (27.0-33.4); MEAN CORPUSCULAR HGB CONC 35.5 g/dL (32.0-36.0); MEAN CORPUSCULAR VOLUME 123 fl (80-97); PLATELET COUNT 184 10^3/uL (150-450); RED CELL DISTRIBUTION WIDTH 23.8 % (11.5-14.0); RETICULOCYTE COUNT (AUTO) 3.28 % (0.66-2.85); WHITE BLOOD COUNT 4.4 10^3/uL (4.0-10.5)
[2019-05-18 22:15] LABS: ABSOLUTE LYMPHOCYTES# (MANUAL) 2.1 10^3/uL (0.5-4.7); ABSOLUTE MONOCYTES # (MANUAL) 0.1 10^3/uL (0.1-1.4); BASOPHILS % (MANUAL) 3 % (0-2); EOSINOPHILS % (MANUAL) 0 % (0-6); LYMPHOCYTES % (MANUAL) 47 % (13-45); METAMYELOCYTES % (MANUAL) 1 % (0-1); MONOCYTES % (MANUAL) 3 % (3-13); NUCLEATED RED BLOOD CELLS 19 /100 WBC (0); SEGMENTED NEUTROPHILS % (MAN) 46 % (42-78); TOTAL CELLS COUNTED 100
[2019-05-18 22:17] LABS: ANISOCYTOSIS 3+; OVALOCYTES 1+; SMUDGE CELLS PRESENT; TARGET CELLS SLIGHT
[2019-05-18 22:18] LABS: PLATELET COMMENT ADEQUATE
[2019-05-19] MEDS ORDERED: NORMAL SALINE 1000 ML 1,000 ML IV ONE (00:54)
[2019-05-19] MEDS ORDERED: HYDROMORPHONE HCL INJ/PF 2 MG/ML AMPULE IV ONE ×2 (01:18→02:16)
[2019-05-19] MEDS ORDERED: DIPHENHYDRAMINE HCL 50 MG/ML VIAL IV ONE (01:18)
--- NOTE | 2019-05-19 01:23 | ER Document Report ---
ED General - General Chief Complaint: Sickle Cell Crisis Stated Complaint: SICKLE CELL CRISIS Time Seen by Provider: 05/18/19 20:20 Primary Care Provider: HOMA BARRAZA MD [Primary Care Provider] - Follow up as needed TRAVEL OUTSIDE OF THE [place] IN LAST 30 DAYS: No - Related Data Allergies/Adverse Reactions: doxycycline [Doxycycline] Allergy (Severe, Verified 02/14/19 18:16) Past Medical History - Social History Smoking Status: Never Smoker Family History: Reviewed & Not Pertinent Patient has suicidal ideation: No Patient has homicidal ideation: No - Past Medical History Cardiac Medical History: Reports: Hx Heart Murmur Denies: Hx Atrial Fibrillation, Hx Congestive Heart Failure, Hx Coronary Artery Disease, Hx Heart Attack, Hx Hypercholesterolemia, Hx Hypertension, Hx Peripheral Vascular Disease Pulmonary Medical History: Denies: Hx Tuberculosis Neurological Medical History: Denies: Hx Seizures Renal/ Medical History: Reports: Hx Ovarian Cysts. 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 Denies: Hx HIV Past Surgical History: Reports: Hx Appendectomy, Hx Section, Hx Cholecystectomy, Hx Orthopedic Surgery - R knee, Hx Tonsillectomy. Denies: Hx Bowel Surgery, Hx Coronary Artery Bypass Graft, Hx Gastric Bypass Surgery, Hx Herniorrhaphy, Hx Mastectomy, Hx Pacemaker, Hx Tubal Ligation - Immunizations Immunizations up to date: Yes Hx Diphtheria, Pertussis, Tetanus Vaccination: Yes Hx Pneumococcal Vaccination: 03/20/14 Physical Exam - Vital signs Vitals: Temp Pulse Resp BP Pulse Ox 98.9 F 80 16 101/61 99 05/18/19 19:28 05/18/19 19:28 05/18/19 19:28 05/18/19 19:28 05/18/19 19:28 - Notes Notes: Patient presents to the emergency department any of sickle cell pain crisis that started last night it is located in her arms legs and chest which is typical for her previous crisis. Plan OxyContin twice a day long-acting and has short acting OxyContin for breakthrough pain. She is able to get 4 times a day has had 3 doses today with only minimal relief. The chest pain is substernal and nonradiating described as a stabbing sensation and again similar to her pain but she has had in the past. It does not change with breathing but changes slightly when she walks around. He was history of cardiac disease. Of nausea with this but no fevers cough shortness of breath vomiting abdominal pain diarrhea or dysuria She also reports that she is had several superficial ulcerations breakdown on her left ankle symptoms which is in the past when she had cellulitis. She is also noted some scant amount of yellow drainage. She is had no redness and reports that last time she had cellulitis the foot was much more swollen and red Past medical history is significant for sickle cell disease. No diabetes or hypertension. Social history does not smoke or drink at all. Last missed period was 3 years ago does not take any type of control pills Review of systems pertinent positives and negatives in HPI otherwise all the systems were reviewed and acutely negative PHYSICIAN EXAM -vital signs are noted triage note and note from triage reviewed GENERAL: Well-appearing, well-nourished and in __no acute distress____ HEAD: Atraumatic, normocephalic. EYES: Pupils equal round and reactive to light, extraocular movements intact, sclera slightly icteric conjunctiva are normal. ENT: nares patent, oropharynx clear without exudates. Moist mucous membranes. NECK: supple without lymphadenopathy LUNGS: Breath sounds clear to auscultation bilaterally and equal. No wheezes rales or rhonchi. Simply tender along the parasternal border that reproduces her pain she has no crepitus or lesions HEART: Regular rate and rhythm without murmurs ABDOMEN: Soft, nontender, normoactive bowel sounds. EXTREMITIES: No deformity, no edema. Significant tenderness diffusely the arms and legs but no localizing tenderness redness or swelling over the joints NEUROLOGICAL: No focal neurological deficits. Moves all extremities spontaneously and on command. PSYCH: Normal mood, normal affect. SKIN: Warm, Dry, normal turgor, no rashes except for her left foot which she has some hyperpigmented lesions which are chronic. She has 3 superficial ulcerated lesions that appear chronic there is no surrounding redness and no drainage from the area BACK-nontender in the midline Differential diagnosis sickle cell pain crisis chest syndrome dehydration Course - Re-evaluation Re-evalutation: 05/19/19 02:58 ED patient was given IV fluids and oxygen which she says she usually gets when she has an attack. She is given 2 doses of Dilaudid and still has significant pain and was given a third dose. She still having pain and feels that she needs to be admitted to the hospital. Medical decision making patient presents with sickle cell pain crisis and will need admission to the hospital I did discuss case with her sample driller she reports that the findings on the left leg are chronic and request patient be admitted to her family doctor they have been consulted - Vital Signs Vital signs: Temp Pulse Resp BP Pulse Ox 98.9 F 80 22 H 108/71 100 05/18/19 19:28 05/18/19 19:28 05/19/19 02:01 05/19/19 02:00 05/19/19 02:01 - Laboratory Result Diagrams: 05/18/19 21:05 05/18/19 21:05 Laboratory results interpreted by me: 05/18/19 05/18/19 05/19/19 21:05 21:05 00:59 RBC 1.60 L Hgb 7.0 L Hct 19.7 L MCV 123 H MCH 43.6 H RDW 23.8 H Lymphocytes % (Manual) 47 H Basophils % (Manual) 3 H Retic Count (auto) 3.28 H Total Bilirubin 4.7 H Direct Bilirubin 0.7 H AST 64 H Alkaline Phosphatase 146 H Urine Blood SMALL H Urine Urobilinogen 2.0 H 05/19/19 02:57 Labs are about baseline - Diagnostic Test Radiology reviewed: Reports reviewed - KG shows a normal sinus rhythm at a rate of 68. Got some LVH with strain nonspecific ST wave changes all which were present on previous EKG Discharge - Discharge Clinical Impression: Sickle cell pain crisis Disposition: ADMITTED INPATIENT Admitting Provider: wick Unit Admitted: Telemetry Referrals: HOMA BARRAZA MD [Primary Care Provider] - Follow up as needed
[2019-05-19 01:31] LABS: APPEARANCE,URINE CLEAR; BILIRUBIN,URINE NEGATIVE (NEGATIVE); COLOR,URINE YELLOW; GLUCOSE, URINE NEGATIVE (NEGATIVE); KETONES,URINE NEGATIVE (NEGATIVE); LEUKOCYTE ESTERASE,URINE NEGATIVE (NEGATIVE); NITRITE,URINE NEGATIVE (NEGATIVE); PROTEIN,URINE NEGATIVE (NEGATIVE); URINE SPECIFIC GRAVITY 1.009
[2019-05-19] MEDS ORDERED: ONDANSETRON HCL INJ/PF 4 MG/2 ML SDV IV PRN (02:59)
[2019-05-19] MEDS ORDERED: ACETAMINOPHEN 325 MG TABLET PO PRN (02:59)
[2019-05-19] MEDS: HYDROMORPHONE HCL INJ/PF 2 MG/ML AMPULE IV PRN ×5 (04:57→20:37)
[2019-05-19] MEDS: NORMAL SALINE 1000 ML 1,000 ML IV PRN ×2 (06:16→14:41)
[2019-05-19] MEDS: PANTOPRAZOLE SODIUM 40 MG TABLET.DR PO SCH (06:17)
[2019-05-19 06:53] LABS: ANION GAP 5 (5-19); BLOOD UREA NITROGEN 9 mg/dL (7-20); CALCIUM 8.3 mg/dL (8.4-10.2); CARBON DIOXIDE 26 mmol/L (22-30); CHLORIDE 108 mmol/L (98-107); GLUCOSE 94 mg/dL (75-110); POTASSIUM 4.3 mmol/L (3.6-5.0)
[2019-05-19] MEDS ORDERED: DIPHENHYDRAMINE HCL 25 MG CAPSULE PO PRN (08:40)
--- NOTE | 2019-05-19 10:16 | PDOC H&P ---
History of Present Illness Admission Date/PCP: 05/19/19 03:26 HOMA BARRAZA MD Patient complains of: Multiple body pain History of Present Illness: WILLIE ALAN is a 49 year old female 49-year-old patient of Dr. Barraza with a significant history of the sickle cell disease multiple several hospital admissions with a chronic opioid dependence and multiple other comorbidity came to the emergency department with a complaining of left arm pain leg pain chest pain back pain typical sickle cells crisis. Patient taking the high-dose of the pain medications home and every time patients come in the hospital patient is requiring very high-dose IV pain medications and also required a Benadryl IV which patient thinks habitual for all this pain medication and opiate dependence. Patient's currently start on IV fluid patient hemoglobin is 7 patient have a history of the iron overload due to the multiple blood transfusions and currently psychometrician Dr. Viveros follow the patient's closely Patient admitting in the hospital with other blood work is all stable and patient currently still have on and off pain. Patient has some mild ulceration on the left lower extremities and ankle area which I do not see any redness today which I previously examined which is much better today 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 Denies: HIV Past Surgical History Past Surgical History: Reports: Appendectomy, Section, Cholecystectomy, Orthopedic Surgery - R knee, Tonsillectomy Denies: Amputation, Coronary Artery Bypass Graft, Gastric Bypass Surgery, Herniorrhaphy, Mastectomy, Pacemaker, Tubal Ligation Social History Information Source: Patient Smoking Status: Never Smoker Electronic Cigarette use?: No Frequency of Alcohol Use: None Hx Recreational Drug Use: No Drugs: None Hx Prescription Drug Abuse: No - Advance Directive Resuscitation Status: Full Code Family History Family History: Reviewed & Not Pertinent Parental Family History Reviewed: Yes Children Family History Reviewed: Yes Sibling(s) Family History Reviewed.: Yes Medication/Allergy Home Medications: Epoetin Federico [Procrit Inj 40,000 Unit/1 ml Vial (Renal)] 60,000 unit SQ FR 11/20/18 Folic Acid [Folvite 1 mg Tablet] 1 mg PO DAILY 11/20/18 Gabapentin [Neurontin 300 mg Capsule] 300 mg PO Q8 11/20/18 Hydroxyurea [Hydrea 500 mg Capsule] 500 mg PO TID 11/20/18 Multivitamin [Multiple Vitamins] 1 tab PO DAILY 11/20/18 Oxycodone HCl [Oxycodone HCl 10 MG Tablet] 10 mg PO Q6HP PRN 11/20/18 Oxycodone HCl [Oxycontin] 30 mg PO Q12 11/20/18 Promethazine HCl [Phenergan 25 mg Tablet] 25 mg PO Q6HP PRN 11/20/18 Rivaroxaban [Xarelto] 20 mg PO QPM 11/20/18 Allergies/Adverse Reactions: doxycycline [Doxycycline] Allergy (Severe, Verified 02/14/19 18:16) Review of Systems Constitutional: ABSENT: chills, fever(s), headache(s), weight gain, weight loss Eyes: ABSENT: visual disturbances Ears: ABSENT: hearing changes Cardiovascular: PRESENT: chest pain. ABSENT: dyspnea on exertion, edema, orthropnea, palpitations Respiratory: ABSENT: cough, hemoptysis Gastrointestinal: ABSENT: abdominal pain, constipation, diarrhea, hematemesis, hematochezia, nausea, vomiting Genitourinary: ABSENT: dysuria, hematuria Musculoskeletal: ABSENT: joint swelling Integumentary: ABSENT: rash, wounds Neurological: ABSENT: abnormal gait, abnormal speech, confusion, dizziness, focal weakness, syncope Psychiatric: ABSENT: anxiety, depression, homidical ideation, suicidal ideation Endocrine: ABSENT: cold intolerance, heat intolerance, menstrual abnormalities, polydipsia, polyuria Hematologic/Lymphatic: ABSENT: easy bleeding, easy bruising, lymphadenopathy Physical Exam Vital Signs: Temp Pulse Resp BP Pulse Ox 98.2 F 72 16 116/68 98 05/19/19 07:40 05/19/19 07:40 05/19/19 07:40 05/19/19 07:40 05/19/19 07:40 Intake & Output 05/18/19 05/19/19 05/20/19 06:59 06:59 06:59 Intake Total 2000 Balance 2000 Weight 64.2 kg General appearance: PRESENT: no acute distress, well-developed, well-nourished Head exam: PRESENT: atraumatic, normocephalic Eye exam: PRESENT: conjunctiva pink, EOMI, PERRLA. ABSENT: scleral icterus Ear exam: PRESENT: normal external ear exam Mouth exam: PRESENT: moist, tongue midline Neck exam: PRESENT: full ROM. ABSENT: carotid bruit, JVD, lymphadenopathy, thyromegaly Respiratory exam: PRESENT: clear to auscultation carolyn Cardiovascular exam: PRESENT: RRR. ABSENT: diastolic murmur, rubs, systolic murmur Vascular exam: PRESENT: normal capillary refill GI/Abdominal exam: PRESENT: normal bowel sounds, soft. ABSENT: distended, guarding, mass, organolmegaly, rebound, tenderness Rectal exam: PRESENT: deferred Extremities exam: ABSENT: pedal edema Additional comments: Left lower extremity mild ulcerations but no drainage no edema chronic skin changes no redness Neurological exam: PRESENT: alert, awake, oriented to person, oriented to place, oriented to time, oriented to situation, CN II-XII grossly intact. ABSENT: motor sensory deficit Psychiatric exam: PRESENT: appropriate affect, normal mood. ABSENT: homicidal ideation, suicidal ideation Skin exam: PRESENT: dry, intact, warm. ABSENT: cyanosis, rash Results Laboratory Results: 05/18/19 21:05 05/19/19 06:12 05/18/19 05/18/19 05/19/19 21:05 21:05 00:59 WBC 4.4 RBC 1.60 L Hgb 7.0 L Hct 19.7 L MCV 123 H MCH 43.6 H MCHC 35.5 RDW 23.8 H Plt Count 184 Seg Neutrophils % Not Reportable Retic Count (auto) 3.28 H Sodium 139.3 Potassium 4.5 Chloride 105 Carbon Dioxide 28 Anion Gap 6 BUN 12 Creatinine 0.84 Est GFR ( Amer) > 60 Glucose 99 Calcium 9.2 Total Bilirubin 4.7 H AST 64 H Alkaline Phosphatase 146 H Total Protein 7.8 Albumin 4.7 Urine Color YELLOW Urine Appearance CLEAR Urine pH 7.0 Ur Specific [place] 1.009 Urine Protein NEGATIVE Urine Glucose (UA) NEGATIVE Urine Ketones NEGATIVE Urine Blood SMALL H Urine Nitrite NEGATIVE Ur Leukocyte Esterase NEGATIVE Urine WBC (Auto) 0 Urine RBC (Auto) 1 05/19/19 06:12 WBC RBC Hgb Hct MCV MCH MCHC RDW Plt Count Seg Neutrophils % Retic Count (auto) Sodium 139.1 Potassium 4.3 Chloride 108 H Carbon Dioxide 26 Anion Gap 5 BUN 9 Creatinine 0.56 Est GFR ( Amer) > 60 Glucose 94 Calcium 8.3 L Total Bilirubin AST Alkaline Phosphatase Total Protein Albumin Urine Color Urine Appearance Urine pH Ur Specific [place] Urine Protein Urine Glucose (UA) Urine Ketones Urine Blood Urine Nitrite Ur Leukocyte Esterase Urine WBC (Auto) Urine RBC (Auto) 05/18/19 21:05 Troponin I < 0.012 Impressions: Chest X-Ray 05/18/19 20:20 IMPRESSION: Nodular focus over the left lung base not clearly present on prior studies. Recommend correlation with CT of the chest No evidence of acute process Assessment & Plan - Diagnosis (1) Hb-SS disease with vaso-occlusive crisis Is this a current diagnosis for this admission?: Yes Plan: Start IV fluid Continues to IV pain medications Consult the Dr. Viveros psychometrician for further evaluations Blood culture urine cultures to rule out any underlying infections (2) Anemia, sickle cell with crisis Is this a current diagnosis for this admission?: Yes Plan: Currently prevent any blood transfusions will defer to the psychometrician due to the multiple blood transfusion in the past and iron overload (3) Chronic pain syndrome Is this a current diagnosis for this admission?: Yes Plan: Denies to current pain medications hematology currently managed the pain - Time Time Spent: 30 to 50 Minutes Critical Time spent with patient: 15-24 minutes Medications reviewed and adjusted accordingly: Yes Anticipated discharge: Home Within: Other - Inpatient Certification Based on my medical assessment, after consideration of the patient's co morbidities, presenting symptoms, or acuity I expect that the services needed warrant INPATIENT care.: Yes I certify that my determination is in accordance with my understanding of Medicare's requirements for reasonable and necessary INPATIENT services [42 CFR 412.3e].: Yes Medical Necessity: Significant Comorbidiites Make Outpatient Treatment Too Risky, Need For IV Fluids, Need for Pain Control Post Hospital Care: D/C Lead Software Development Engineer Documentation - Plan Summary Plan Summary: Admit in a telemetry bed See other MD orders
[2019-05-19] MEDS ORDERED: PROMETHAZINE HCL 25 MG TABLET PO PRN (11:01)
[2019-05-19] MEDS ORDERED: HYDROMORPHONE HCL INJ/PF 2 MG/ML AMPULE IV PRN (11:11)
[2019-05-19] MEDS: FOLIC ACID 1 MG TABLET PO SCH (11:49)
[2019-05-19] MEDS: MULTIVITAMIN TABLET PO SCH (11:49)
[2019-05-19] MEDS: OXYCODONE HCL SR 10 MG TABLET PO SCH ×2 (11:49→22:44)
--- NOTE | 2019-05-19 12:36 | EKG REPORT ---
SEVERITY:- NORMAL ECG - SINUS RHYTHM : Confirmed by: Keyla Alexander 19-May-2019 12:35:23
[2019-05-19] MEDS: GABAPENTIN 300 MG CAPSULE PO SCH ×2 (13:53→22:44)
[2019-05-19] MEDS: HYDROXYUREA 500 MG CAPSULE PO SCH ×2 (14:37→18:13)
--- NOTE | 2019-05-19 15:56 | PDOC CONSULTATION ---
Consultation Consult Date: 05/19/19 Provider Consulted: SAVANNA AWAN Consult reason:: Hematology/Oncology consultation was requested for patient with Sickle cell anemia admitted for pain crisis. History of Present Illness Admission Date/PCP: 05/19/19 03:26 HOMA BARRAZA MD History of Present Illness: WILLIE ALAN is a 49 year old female with longstanding sickle cell anemia and frequent pain crises. She is usually maintained at home with PO medications. However, over the last 2-3 days, her pain has increased, and the skin wounds on her ankle have worsened. She states that this is a typical pain crisis. No chest pain or significant dyspnea out of her ordinary. No constipation. Some nausea and itching. She is very frustrated and upset because she had to be admitted to the hospital again. 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 Denies: HIV Past Surgical History Past Surgical History: Reports: Appendectomy, Section, Cholecystectomy, Orthopedic Surgery - R knee, Tonsillectomy Denies: Amputation, Coronary Artery Bypass Graft, Gastric Bypass Surgery, Herniorrhaphy, Mastectomy, Pacemaker, Tubal Ligation Social History Smoking Status: Never Smoker Electronic Cigarette use?: No Frequency of Alcohol Use: None Hx Recreational Drug Use: No Drugs: None Hx Prescription Drug Abuse: No - Advance Directive Resuscitation Status: Full Code Family History Parental Family History Reviewed: Yes - Sickle Cell trait Children Family History Reviewed: No Sibling(s) Family History Reviewed.: Yes Medication/Allergy Home Medications: Epoetin Federico [Procrit Inj 40,000 Unit/1 ml Vial (Renal)] 60,000 unit SQ FR 11/20/18 Folic Acid [Folvite 1 mg Tablet] 1 mg PO DAILY 11/20/18 Gabapentin [Neurontin 300 mg Capsule] 300 mg PO Q8 11/20/18 Hydroxyurea [Hydrea 500 mg Capsule] 500 mg PO TID 11/20/18 Multivitamin [Multiple Vitamins] 1 tab PO DAILY 11/20/18 Oxycodone HCl [Oxycodone HCl 10 MG Tablet] 10 mg PO Q6HP PRN 11/20/18 Oxycodone HCl [Oxycontin] 30 mg PO Q12 11/20/18 Promethazine HCl [Phenergan 25 mg Tablet] 25 mg PO Q6HP PRN 11/20/18 Rivaroxaban [Xarelto] 20 mg PO QPM 11/20/18 Deferasirox [Jadenu] 360 mg PO DAILY 05/19/19 Ergocalciferol (Vitamin D2) [Vitamin D2] 50,000 unit PO WE@1000 05/19/19 Allergies/Adverse Reactions: doxycycline [Doxycycline] Allergy (Severe, Verified 02/14/19 18:16) Review of Systems Constitutional: ABSENT: fever(s), headache(s) Eyes: ABSENT: visual disturbances Ears: ABSENT: hearing changes Nose, Mouth, and Throat: ABSENT: sore throat Cardiovascular: ABSENT: chest pain Respiratory: ABSENT: dyspnea Gastrointestinal: PRESENT: nausea. ABSENT: constipation Genitourinary: ABSENT: dysuria Musculoskeletal: PRESENT: as per HPI Physical Exam Vital Signs: Temp Pulse Resp BP Pulse Ox 98.0 F 71 16 108/62 100 05/19/19 11:20 05/19/19 11:20 05/19/19 11:20 05/19/19 11:20 05/19/19 11:20 Intake & Output 05/18/19 05/19/19 05/20/19 06:59 06:59 06:59 Intake Total 1999 1480 Output Total 0 Balance 1999 1480 Weight 64.2 kg General appearance: PRESENT: well-developed, well-nourished Head exam: PRESENT: normocephalic Eye exam: PRESENT: EOMI, PERRLA Mouth exam: PRESENT: tongue midline Neck exam: ABSENT: lymphadenopathy, tenderness Respiratory exam: PRESENT: clear to auscultation carolyn Cardiovascular exam: PRESENT: RRR Vascular exam: PRESENT: other - veinous stasis changes in both ankles, with no active skin ulcers currently. Much improved from last visit. GI/Abdominal exam: PRESENT: normal bowel sounds, soft. ABSENT: tenderness Extremities exam: ABSENT: pedal edema Musculoskeletal exam: PRESENT: tenderness Neurological exam: PRESENT: alert, awake, oriented to person, oriented to place, oriented to time, oriented to situation Psychiatric exam: PRESENT: appropriate affect, depressed Skin exam: PRESENT: normal color Results Laboratory Results: 05/18/19 21:05 05/19/19 06:12 05/18/19 05/18/19 05/19/19 21:05 21:05 00:59 WBC 4.4 RBC 1.60 L Hgb 7.0 L Hct 19.7 L MCV 123 H MCH 43.6 H MCHC 35.5 RDW 23.8 H Plt Count 184 Seg Neutrophils % Not Reportable Retic Count (auto) 3.28 H Sodium 139.3 Potassium 4.5 Chloride 105 Carbon Dioxide 28 Anion Gap 6 BUN 12 Creatinine 0.84 Est GFR ( Amer) > 60 Glucose 99 Calcium 9.2 Total Bilirubin 4.7 H AST 64 H Alkaline Phosphatase 146 H Total Protein 7.8 Albumin 4.7 Urine Color YELLOW Urine Appearance CLEAR Urine pH 7.0 Ur Specific [place] 1.009 Urine Protein NEGATIVE Urine Glucose (UA) NEGATIVE Urine Ketones NEGATIVE Urine Blood SMALL H Urine Nitrite NEGATIVE Ur Leukocyte Esterase NEGATIVE Urine WBC (Auto) 0 Urine RBC (Auto) 1 05/19/19 06:12 WBC RBC Hgb Hct MCV MCH MCHC RDW Plt Count Seg Neutrophils % Retic Count (auto) Sodium 139.1 Potassium 4.3 Chloride 108 H Carbon Dioxide 26 Anion Gap 5 BUN 9 Creatinine 0.56 Est GFR ( Amer) > 60 Glucose 94 Calcium 8.3 L Total Bilirubin AST Alkaline Phosphatase Total Protein Albumin Urine Color Urine Appearance Urine pH Ur Specific [place] Urine Protein Urine Glucose (UA) Urine Ketones Urine Blood Urine Nitrite Ur Leukocyte Esterase Urine WBC (Auto) Urine RBC (Auto) 05/18/19 21:05 Troponin I < 0.012 Impressions: Chest X-Ray 05/18/19 20:20 IMPRESSION: Nodular focus over the left lung base not clearly present on prior studies. Recommend correlation with CT of the chest No evidence of acute process Assessment & Plan - Diagnosis (1) Anemia, sickle cell with crisis Is this a current diagnosis for this admission?: Yes Plan: Continue oxygen. Will change IV fluids to 1/2 NS at 150 mL/hr. Will change benadryl to IV and increase dilaudid for a few days. Make sure Long acting pain meds are continued and do not get stopped by pharmacy. (2) Iron overload due to repeated red blood cell transfusions Is this a current diagnosis for this admission?: Yes Plan: Her Jadenu during the last visit was lost, and this was not replaceable. She is very concerned about this. She will bring this form home and I have instructed staff to try to make sure patient gets this as prescribed and it is not lost. She will also continue Procrit weekly, if possible. Avoid all blood transfusions unless hemodynamically unstable.
[2019-05-19] MEDS: DIPHENHYDRAMINE HCL 50 MG/ML VIAL IV PRN (16:54)
[2019-05-19] MEDS: RIVAROXABAN 10 MG TABLET PO SCH (18:13)
[2019-05-19] MEDS: 1/2 NORMAL SALINE 1,000 ML IV PRN (21:58)
[2019-05-19] MEDS ORDERED: (PENDING PHARMACY ID) (Oxycodone Hcl [Oxycontin] 30 MG) PO SCH (22:00)
[2019-05-19] MEDS: CEFTRIAXONE 1 GM/D5W RTU 1 GM/50 ML RTUPB IV SCH (22:45)
[2019-05-20] MEDS: HYDROMORPHONE HCL INJ/PF 2 MG/ML AMPULE IV PRN ×7 (00:05→20:38)
[2019-05-20] MEDS: DIPHENHYDRAMINE HCL 50 MG/ML VIAL IV PRN ×4 (00:05→20:39)
[2019-05-20] MEDS: PROMETHAZINE HCL INJ 25 MG/1 ML VIAL IV PRN ×3 (04:23→14:28)
[2019-05-20] MEDS: 1/2 NORMAL SALINE 1,000 ML IV PRN ×3 (04:33→17:27)
[2019-05-20] MEDS: GABAPENTIN 300 MG CAPSULE PO SCH ×3 (05:57→21:58)
[2019-05-20] MEDS: PANTOPRAZOLE SODIUM 40 MG TABLET.DR PO SCH (05:57)
[2019-05-20 06:30] LABS: HEMATOCRIT 16.2 % (36.0-47.0); MEAN CORPUSCULAR HEMOGLOBIN 43.5 pg (27.0-33.4); MEAN CORPUSCULAR HGB CONC 35.1 g/dL (32.0-36.0); MEAN CORPUSCULAR VOLUME 124 fl (80-97); PLATELET COUNT 143 10^3/uL (150-450); RED BLOOD COUNT 1.31 10^6/uL (3.72-5.28); RED CELL DISTRIBUTION WIDTH 23.1 % (11.5-14.0)
[2019-05-20 06:49] LABS: HEMOGLOBIN 5.7 g/dL (12.0-15.5)
[2019-05-20 06:57] LABS: ABSOLUTE LYMPHOCYTES# (MANUAL) 1.8 10^3/uL (0.5-4.7); ABSOLUTE MONOCYTES # (MANUAL) 0.2 10^3/uL (0.1-1.4); BASOPHILS % (MANUAL) 0 % (0-2); EOSINOPHILS % (MANUAL) 4 % (0-6); LYMPHOCYTES % (MANUAL) 46 % (13-45); MONOCYTES % (MANUAL) 5 % (3-13); NUCLEATED RED BLOOD CELLS 26 /100 WBC (0); SEGMENTED NEUTROPHILS % (MAN) 45 % (42-78); TOTAL CELLS COUNTED 100
[2019-05-20 06:59] LABS: ANISOCYTOSIS 4+; OVALOCYTES SLIGHT; PAPPENHEIMER BODIES PRESENT; PLATELET COMMENT DECREASED; POIKILOCYTOSIS 1+; POLYCHROMASIA 1+; SICKLE RED CELLS 1+; TARGET CELLS SLIGHT
[2019-05-20] MEDS: OXYCODONE HCL SR 10 MG TABLET PO SCH ×2 (09:19→21:58)
[2019-05-20] MEDS: HYDROXYUREA 500 MG CAPSULE PO SCH ×3 (09:20→17:27)
[2019-05-20] MEDS: MULTIVITAMIN TABLET PO SCH (09:20)
[2019-05-20] MEDS: FOLIC ACID 1 MG TABLET PO SCH (09:20)
[2019-05-20] MEDS ORDERED: DEFERASIROX 360 MG PO SCH (10:00)
--- NOTE | 2019-05-20 10:33 | PDOC PROGRESS REPORT ---
Subjective Progress Note for:: 05/20/19 Subjective:: Patient is currently doing same patient is complaining of knee pain In the back pain Patient urine cultures grew up E. coli 80-90,000 colonies start on Rocephin Patient has some mild mucus No chest pain no short of breath Patient seen by hematology adjust the pain medications Reason For Visit: SICKLE CELL CRISIS Physical Exam Vital Signs: Temp Pulse Resp BP Pulse Ox 98.6 F 79 18 124/69 100 05/20/19 07:36 05/20/19 07:36 05/20/19 07:36 05/20/19 07:36 05/20/19 07:36 Intake & Output 05/19/19 05/20/19 05/21/19 06:59 06:59 06:59 Intake Total 1999 4716 Output Total 0 Balance 1999 4716 Weight 64.2 kg 60.4 kg General appearance: PRESENT: no acute distress, well-developed, well-nourished Head exam: PRESENT: atraumatic, normocephalic Eye exam: PRESENT: conjunctiva pink, EOMI, PERRLA. ABSENT: scleral icterus Ear exam: PRESENT: normal external ear exam Mouth exam: PRESENT: moist, tongue midline Neck exam: PRESENT: full ROM. ABSENT: carotid bruit, JVD, lymphadenopathy, th yromegaly Respiratory exam: PRESENT: clear to auscultation carolyn Cardiovascular exam: PRESENT: RRR. ABSENT: diastolic murmur, rubs, systolic murmur Pulses: PRESENT: normal dorsalis pedis pul, +2 pedal pulses bilateral Vascular exam: PRESENT: normal capillary refill GI/Abdominal exam: PRESENT: normal bowel sounds, soft. ABSENT: distended, guarding, mass, organolmegaly, rebound, tenderness Rectal exam: PRESENT: deferred Neurological exam: PRESENT: alert, awake, oriented to person, oriented to place, oriented to time, oriented to situation, CN II-XII grossly intact. ABSENT: motor sensory deficit Psychiatric exam: PRESENT: appropriate affect, normal mood. ABSENT: homicidal ideation, suicidal ideation Skin exam: PRESENT: dry, intact, warm. ABSENT: cyanosis, rash Results Laboratory Results: 05/20/19 06:00 05/19/19 06:12 05/20/19 06:00 WBC 4.0 RBC 1.31 L Hgb 5.7 L Hct 16.2 L MCV 124 H MCH 43.5 H MCHC 35.1 RDW 23.1 H Plt Count 143 L Seg Neutrophils % Not Reportable 05/18/19 21:05 Troponin I < 0.012 Impressions: Chest X-Ray 05/18/19 20:20 IMPRESSION: Nodular focus over the left lung base not clearly present on prior studies. Recommend correlation with CT of the chest No evidence of acute process Assessment & Plan - Diagnosis (1) Hb-SS disease with vaso-occlusive crisis Is this a current diagnosis for this admission?: Yes Plan: Continues to current medical management per prepress operator (2) Anemia, sickle cell with crisis Is this a current diagnosis for this admission?: Yes Plan: Due to the iron overload patient still not receiving any blood transfusions per prepress operator currently stable (3) Chronic pain syndrome Is this a current diagnosis for this admission?: Yes Plan: Follow with the prepress operator (4) E. coli urinary tract infection Is this a current diagnosis for this admission?: Yes Plan: Continues IV Rocephin - Time Time Spent with patient: 15-24 minutes Level of Care: TELE Medications reviewed and adjusted accordingly: Yes Anticipated discharge: Home Within: Other - Plan Summary Plan Summary: Continues to IV fluid and IV antibiotic Continues to monitor follow with prepress operator Physical therapy evaluations
--- NOTE | 2019-05-20 13:04 | PDOC PROGRESS REPORT ---
Subjective Progress Note for:: 05/20/19 Subjective:: Patient is sleeping peacefully in bed. No distress. However, nurses report that this is the first time in 24 hours that she has appeared comfortable. She has been needing IV Dilaudid, phenergan and benadryl to ease her symptoms. No other complaints currently. Reason For Visit: SICKLE CELL CRISIS Physical Exam Vital Signs: Temp Pulse Resp BP Pulse Ox 98.7 F 93 18 130/79 H 98 05/20/19 11:00 05/20/19 11:00 05/20/19 11:00 05/20/19 11:00 05/20/19 11:00 Intake & Output 05/19/19 05/20/19 05/21/19 06:59 06:59 06:59 Intake Total 1999 4717 970 Output Total 0 Balance 1999 4717 970 Weight 64.2 kg 60.4 kg General appearance: PRESENT: well-developed, well-nourished Head exam: PRESENT: normocephalic Respiratory exam: PRESENT: clear to auscultation carolyn, unlabored Cardiovascular exam: PRESENT: RRR Extremities exam: ABSENT: pedal edema Skin exam: PRESENT: normal color Results Laboratory Results: 05/20/19 06:00 05/19/19 06:12 05/20/19 06:00 WBC 4.0 RBC 1.31 L Hgb 5.7 L Hct 16.2 L MCV 124 H MCH 43.5 H MCHC 35.1 RDW 23.1 H Plt Count 143 L Seg Neutrophils % Not Reportable 05/18/19 21:05 Troponin I < 0.012 Impressions: Chest X-Ray 05/18/19 20:20 IMPRESSION: Nodular focus over the left lung base not clearly present on prior studies. Recommend correlation with CT of the chest No evidence of acute process Assessment & Plan - Diagnosis (1) Anemia, sickle cell with crisis Is this a current diagnosis for this admission?: Yes Plan: HGB dropped as expected with treatment. NO BLOOD TRANSFUSIONS unless hemodynamically ustable. Continue oxygen, fluids, pain meds, other supportive meds. (2) Iron overload due to repeated red blood cell transfusions Is this a current diagnosis for this admission?: Yes Plan: resume Jadenu when possible. - Time Time Spent with patient: Less than 15 minutes
[2019-05-20] MEDS: GUAIFENESIN 600 MG TABLET.SA PO SCH ×2 (14:28→21:58)
[2019-05-20] MEDS: RIVAROXABAN 10 MG TABLET PO SCH (17:26)
[2019-05-20] MEDS: CEFTRIAXONE 1 GM/D5W RTU 1 GM/50 ML RTUPB IV SCH (21:59)
[2019-05-21] MEDS: HYDROMORPHONE HCL INJ/PF 2 MG/ML AMPULE IV PRN ×7 (00:36→23:30)
[2019-05-21] MEDS: 1/2 NORMAL SALINE 1,000 ML IV PRN ×4 (00:58→21:00)
[2019-05-21] MEDS: PROMETHAZINE HCL INJ 25 MG/1 ML VIAL IV PRN ×4 (03:44→18:50)
[2019-05-21] MEDS: PANTOPRAZOLE SODIUM 40 MG TABLET.DR PO SCH (05:35)
[2019-05-21] MEDS: GABAPENTIN 300 MG CAPSULE PO SCH ×3 (05:35→22:26)
[2019-05-21 07:18] LABS: HEMATOCRIT 15.2 % (36.0-47.0); MEAN CORPUSCULAR HEMOGLOBIN 43.5 pg (27.0-33.4); MEAN CORPUSCULAR HGB CONC 35.6 g/dL (32.0-36.0); MEAN CORPUSCULAR VOLUME 122 fl (80-97); PLATELET COUNT 125 10^3/uL (150-450); RED BLOOD COUNT 1.24 10^6/uL (3.72-5.28); RED CELL DISTRIBUTION WIDTH 23.7 % (11.5-14.0); WHITE BLOOD COUNT 5.5 10^3/uL (4.0-10.5)
[2019-05-21 07:34] LABS: ABSOLUTE LYMPHOCYTES# (MANUAL) 1.5 10^3/uL (0.5-4.7); ABSOLUTE MONOCYTES # (MANUAL) 0.1 10^3/uL (0.1-1.4); BASOPHILS % (MANUAL) 0 % (0-2); EOSINOPHILS % (MANUAL) 2 % (0-6); LYMPHOCYTES % (MANUAL) 28 % (13-45); MONOCYTES % (MANUAL) 1 % (3-13); NUCLEATED RED BLOOD CELLS 13 /100 WBC (0); POLYCHROMASIA 1+; SEGMENTED NEUTROPHILS % (MAN) 69 % (42-78); TOTAL CELLS COUNTED 100
[2019-05-21 07:35] LABS: ANISOCYTOSIS 3+; PLATELET COMMENT ADEQUATE
[2019-05-21] MEDS: DIPHENHYDRAMINE HCL 50 MG/ML VIAL IV PRN ×3 (07:39→22:26)
[2019-05-21 07:52] LABS: HEMOGLOBIN 5.4 g/dL (12.0-15.5)
[2019-05-21 07:57] LABS: OVALOCYTES 1+; POIKILOCYTOSIS 1+
[2019-05-21 07:58] LABS: HOWELL-JOLLY BODIES PRESENT; TARGET CELLS SLIGHT
--- NOTE | 2019-05-21 08:34 | PDOC PROGRESS REPORT ---
Subjective Progress Note for:: 05/21/19 Subjective:: Patient states that pain continues. She is very happy with current medications and believes that only time will improve her symptoms. No new issues today. She is eating and will try to walk in singh. She is able to get up to bedside commode. ROS: She denies dyspnea, headache, constipation. Reason For Visit: SICKLE CELL CRISIS Physical Exam Vital Signs: Temp Pulse Resp BP Pulse Ox 99.4 F 89 17 116/63 98 05/21/19 07:51 05/21/19 07:51 05/21/19 07:51 05/21/19 07:51 05/21/19 07:51 Intake & Output 05/20/19 05/21/19 05/22/19 06:59 06:59 06:59 Intake Total 4717 6837 1000 Output Total 0 2100 Balance 4717 4737 1000 Weight 60.4 kg 57.5 kg General appearance: PRESENT: no acute distress, well-developed, well-nourished, other - but in obvious pain. Head exam: PRESENT: normocephalic Eye exam: PRESENT: EOMI Mouth exam: PRESENT: tongue midline Respiratory exam: PRESENT: clear to auscultation carolyn, unlabored Cardiovascular exam: PRESENT: RRR Extremities exam: PRESENT: tenderness. ABSENT: pedal edema Neurological exam: PRESENT: alert, awake Psychiatric exam: PRESENT: appropriate affect Skin exam: PRESENT: normal color Results Laboratory Results: 05/21/19 06:13 05/19/19 06:12 05/21/19 06:13 WBC 5.5 RBC 1.24 L Hgb 5.4 L Hct 15.2 L MCV 122 H MCH 43.5 H MCHC 35.6 RDW 23.7 H Plt Count 125 L Seg Neutrophils % Not Reportable 05/18/19 21:05 Troponin I < 0.012 Impressions: Chest X-Ray 05/18/19 20:20 IMPRESSION: Nodular focus over the left lung base not clearly present on prior studies. Recommend correlation with CT of the chest No evidence of acute process Assessment & Plan - Diagnosis (1) Anemia, sickle cell with crisis Is this a current diagnosis for this admission?: Yes Plan: Vital signs remain stable. No indication for blood transfusion at this time. Continue fluids, O2, pain meds. (2) Iron overload due to repeated red blood cell transfusions Is this a current diagnosis for this admission?: Yes Plan: Continue Jadenu if possible. Avoid transfusions unless vital signs unstable. - Time Time Spent with patient: 15-24 minutes
[2019-05-21] MEDS: FOLIC ACID 1 MG TABLET PO SCH (10:27)
[2019-05-21] MEDS: HYDROXYUREA 500 MG CAPSULE PO SCH ×3 (10:27→17:08)
[2019-05-21] MEDS: MULTIVITAMIN TABLET PO SCH (10:27)
[2019-05-21] MEDS: GUAIFENESIN 600 MG TABLET.SA PO SCH ×2 (10:27→22:26)
[2019-05-21] MEDS: OXYCODONE HCL SR 10 MG TABLET PO SCH ×2 (10:27→22:26)
[2019-05-21] MEDS: RIVAROXABAN 10 MG TABLET PO SCH (17:08)
--- NOTE | 2019-05-21 21:46 | PDOC PROGRESS REPORT ---
Subjective Progress Note for:: 05/21/19 Subjective:: , Patient seen by the bedside, she was admitted for bone pain crisis, E. coli UTI, The colony count is 80,000 - 90,000, presently on IV antibiotic Reason For Visit: SICKLE CELL CRISIS Physical Exam Vital Signs: Temp Pulse Resp BP Pulse Ox 98.6 F 87 20 112/57 L 100 05/21/19 20:25 05/21/19 20:25 05/21/19 20:25 05/21/19 20:25 05/21/19 20:25 Intake & Output 05/20/19 05/21/19 05/22/19 06:59 06:59 06:59 Intake Total 4717 6837 4015 Output Total 0 2100 1000 Balance 4717 4737 3015 Weight 60.4 kg 57.5 kg General appearance: PRESENT: no acute distress Respiratory exam: PRESENT: clear to auscultation carolyn Cardiovascular exam: PRESENT: +S1, +S2 GI/Abdominal exam: PRESENT: soft Neurological exam: PRESENT: alert Results Laboratory Results: 05/21/19 06:13 05/19/19 06:12 05/21/19 06:13 WBC 5.5 RBC 1.24 L Hgb 5.4 L Hct 15.2 L MCV 122 H MCH 43.5 H MCHC 35.6 RDW 23.7 H Plt Count 125 L Seg Neutrophils % Not Reportable 05/18/19 21:05 Troponin I < 0.012 Impressions: Chest X-Ray 05/18/19 20:20 IMPRESSION: Nodular focus over the left lung base not clearly present on prior studies. Recommend correlation with CT of the chest No evidence of acute process Assessment & Plan - Diagnosis (1) Sickle cell anemia with pain Is this a current diagnosis for this admission?: Yes (2) E. coli UTI Is this a current diagnosis for this admission?: Yes - Time Time Spent with patient: 25-34 minutes - Plan Summary Plan Summary: Continue present line of management
[2019-05-21] MEDS: CEFTRIAXONE 1 GM/D5W RTU 1 GM/50 ML RTUPB IV SCH (22:26)
[2019-05-22] MEDS: PROMETHAZINE HCL INJ 25 MG/1 ML VIAL IV PRN ×4 (02:33→19:43)
[2019-05-22] MEDS: HYDROMORPHONE HCL INJ/PF 2 MG/ML AMPULE IV PRN ×7 (02:33→23:05)
[2019-05-22] MEDS: 1/2 NORMAL SALINE 1,000 ML IV PRN ×3 (04:25→17:29)
[2019-05-22] MEDS: DIPHENHYDRAMINE HCL 50 MG/ML VIAL IV PRN ×3 (05:40→23:05)
[2019-05-22] MEDS: GABAPENTIN 300 MG CAPSULE PO SCH ×3 (05:41→23:06)
[2019-05-22] MEDS: PANTOPRAZOLE SODIUM 40 MG TABLET.DR PO SCH (05:41)
--- NOTE | 2019-05-22 08:15 | PDOC PROGRESS REPORT ---
Subjective Progress Note for:: 05/22/19 Subjective:: Patient continues to have pain crisis. Her ankle is site of most pain, but other bone/muscle pains continue. She is currently doing well with pain med doses. She denies nausea, constipation or dyspnea. Reason For Visit: SICKLE CELL CRISIS Physical Exam Vital Signs: Temp Pulse Resp BP Pulse Ox 98.4 F 89 20 106/58 L 96 05/22/19 03:10 05/22/19 07:00 05/22/19 03:10 05/22/19 03:10 05/22/19 04:56 Intake & Output 05/21/19 05/22/19 05/23/19 06:59 06:59 06:59 Intake Total 6837 5869 Output Total 2100 4400 Balance 4737 1469 Weight 57.5 kg 67.6 kg General appearance: PRESENT: no acute distress, well-developed, well-nourished Head exam: PRESENT: normocephalic Eye exam: PRESENT: EOMI Respiratory exam: PRESENT: unlabored Extremities exam: ABSENT: pedal edema Neurological exam: PRESENT: alert, awake Psychiatric exam: PRESENT: appropriate affect Skin exam: PRESENT: other - Unchanged from previous Results Laboratory Results: 05/21/19 06:13 05/19/19 06:12 05/19/19 00:59 Cystostomy Tube Urine Culture - Final Escherichia Coli Staphylococcus Epidermidis 05/18/19 21:05 Troponin I < 0.012 Impressions: Chest X-Ray 05/18/19 20:20 IMPRESSION: Nodular focus over the left lung base not clearly present on prior studies. Recommend correlation with CT of the chest No evidence of acute process Assessment & Plan - Diagnosis (1) Anemia, sickle cell with crisis Is this a current diagnosis for this admission?: Yes Plan: Continue current regimen. Encouraged to walk in singh. (2) Iron overload due to repeated red blood cell transfusions Is this a current diagnosis for this admission?: Yes Plan: Should continue Jadenu. No indication for blood transfusions at this time. - Time Time Spent with patient: Less than 15 minutes
[2019-05-22] MEDS: OXYCODONE HCL SR 10 MG TABLET PO SCH ×2 (10:26→23:06)
[2019-05-22] MEDS: GUAIFENESIN 600 MG TABLET.SA PO SCH ×2 (10:26→23:06)
[2019-05-22] MEDS: MULTIVITAMIN TABLET PO SCH (10:26)
[2019-05-22] MEDS: FOLIC ACID 1 MG TABLET PO SCH (10:27)
[2019-05-22] MEDS: HYDROXYUREA 500 MG CAPSULE PO SCH ×3 (10:27→17:29)
[2019-05-22] MEDS: RIVAROXABAN 10 MG TABLET PO SCH (17:29)
--- NOTE | 2019-05-22 20:03 | PDOC PROGRESS REPORT ---
Subjective Progress Note for:: 05/22/19 Subjective:: Patient seen, no new complaint she is comfortable on present regimen Reason For Visit: SICKLE CELL CRISIS Physical Exam Vital Signs: Temp Pulse Resp BP Pulse Ox 98.4 F 94 20 112/66 95 05/22/19 16:02 05/22/19 16:02 05/22/19 16:02 05/22/19 16:02 05/22/19 16:02 Intake & Output 05/21/19 05/22/19 05/23/19 06:59 06:59 06:59 Intake Total 6837 5869 2586 Output Total 2100 4400 Balance 4737 1469 2586 Weight 57.5 kg 67.6 kg General appearance: PRESENT: no acute distress, well-developed, well-nourished Head exam: PRESENT: atraumatic, normocephalic Eye exam: PRESENT: conjunctiva pink, EOMI, PERRLA Ear exam: PRESENT: normal external ear exam Mouth exam: PRESENT: moist, tongue midline Neck exam: PRESENT: full ROM Respiratory exam: PRESENT: clear to auscultation carolyn Cardiovascular exam: PRESENT: RRR, +S1, +S2 Pulses: PRESENT: normal dorsalis pedis pul, +2 pedal pulses bilateral Vascular exam: PRESENT: normal capillary refill GI/Abdominal exam: PRESENT: normal bowel sounds, soft Rectal exam: PRESENT: deferred Neurological exam: PRESENT: alert, awake, oriented to person, oriented to place, oriented to time, oriented to situation, CN II-XII grossly intact Psychiatric exam: PRESENT: appropriate affect, normal mood Skin exam: PRESENT: dry, intact, warm Results Laboratory Results: 05/21/19 06:13 05/19/19 06:12 05/19/19 00:59 Cystostomy Tube Urine Culture - Final Escherichia Coli Staphylococcus Epidermidis 05/18/19 21:05 Troponin I < 0.012 Impressions: Chest X-Ray 05/18/19 20:20 IMPRESSION: Nodular focus over the left lung base not clearly present on prior studies. Recommend correlation with CT of the chest No evidence of acute process Assessment & Plan - Diagnosis (1) Sickle cell anemia with pain Is this a current diagnosis for this admission?: Yes Plan: Continue treatment (2) E. coli UTI Is this a current diagnosis for this admission?: Yes Plan: Continue treatment - Time Time Spent with patient: 15-24 minutes
[2019-05-22] MEDS: CEFTRIAXONE 1 GM/D5W RTU 1 GM/50 ML RTUPB IV SCH (23:05)
[2019-05-23] MEDS: 1/2 NORMAL SALINE 1,000 ML IV PRN ×4 (00:40→21:27)
[2019-05-23] MEDS: HYDROMORPHONE HCL INJ/PF 2 MG/ML AMPULE IV PRN ×7 (02:08→23:44)
[2019-05-23] MEDS: PROMETHAZINE HCL INJ 25 MG/1 ML VIAL IV PRN ×3 (02:08→13:30)
[2019-05-23] MEDS: GABAPENTIN 300 MG CAPSULE PO SCH ×3 (05:29→21:28)
[2019-05-23] MEDS: DIPHENHYDRAMINE HCL 50 MG/ML VIAL IV PRN ×3 (05:29→19:49)
[2019-05-23] MEDS: PANTOPRAZOLE SODIUM 40 MG TABLET.DR PO SCH (05:29)
[2019-05-23 08:22] LABS: MEAN CORPUSCULAR HEMOGLOBIN 44.1 pg (27.0-33.4); MEAN CORPUSCULAR HGB CONC 35.8 g/dL (32.0-36.0); MEAN CORPUSCULAR VOLUME 123 fl (80-97); PLATELET COUNT 114 10^3/uL (150-450); RED BLOOD COUNT 1.16 10^6/uL (3.72-5.28); RED CELL DISTRIBUTION WIDTH 23.6 % (11.5-14.0); WHITE BLOOD COUNT 4.6 10^3/uL (4.0-10.5)
--- NOTE | 2019-05-23 08:22 | PDOC PROGRESS REPORT ---
Subjective Progress Note for:: 05/23/19 Subjective:: Patient just received pain meds so she is a bit groggy. However, she states last night was much worse than previously. Nurses report that yesterday during the day, she did well. Patient does have sub-sternal chest pain, but no dyspnea. Reason For Visit: SICKLE CELL CRISIS Physical Exam Vital Signs: Temp Pulse Resp BP Pulse Ox 98.8 F 83 17 107/59 L 97 05/23/19 03:22 05/23/19 03:22 05/23/19 03:22 05/23/19 03:22 05/23/19 05:32 Intake & Output 05/22/19 05/23/19 05/24/19 06:59 06:59 06:59 Intake Total 5869 4016 1000 Output Total 4400 2750 Balance 1469 1266 1000 Weight 67.6 kg 68 kg General appearance: PRESENT: no acute distress, well-developed, well-nourished Head exam: PRESENT: normocephalic Eye exam: PRESENT: EOMI Respiratory exam: PRESENT: clear to auscultation carolyn, unlabored Cardiovascular exam: PRESENT: RRR. ABSENT: tachycardia GI/Abdominal exam: PRESENT: soft. ABSENT: tenderness Extremities exam: ABSENT: pedal edema Musculoskeletal exam: PRESENT: normal inspection Neurological exam: PRESENT: alert, awake Psychiatric exam: PRESENT: appropriate affect Skin exam: PRESENT: normal color Results Laboratory Results: 05/19/19 00:59 Cystostomy Tube Urine Culture - Final Escherichia Coli Staphylococcus Epidermidis 05/18/19 21:05 Troponin I < 0.012 Impressions: Chest X-Ray 05/18/19 20:20 IMPRESSION: Nodular focus over the left lung base not clearly present on prior studies. Recommend correlation with CT of the chest No evidence of acute process Assessment & Plan - Diagnosis (1) Anemia, sickle cell with crisis Is this a current diagnosis for this admission?: Yes Plan: Will repeat labs today. (2) Iron overload due to repeated red blood cell transfusions Is this a current diagnosis for this admission?: Yes Plan: She should be getting Jadenu daily. Avoid transfusions if possible. Exchange transfusion is not available here. (3) E. coli urinary tract infection Is this a current diagnosis for this admission?: Yes Plan: Will stop Rocephin at this point and change to macrobid, as both organisms were sensitive to this. - Time Time Spent with patient: 15-24 minutes - Plan Summary Plan Summary: Continue pain meds, O2, fluids without changes today.
[2019-05-23 08:28] LABS: HEMOGLOBIN 5.1 g/dL (12.0-15.5)
[2019-05-23 08:45] LABS: ABSOLUTE MONOCYTES # (MANUAL) 0.1 10^3/uL (0.1-1.4); BASOPHILS % (MANUAL) 0 % (0-2); EOSINOPHILS % (MANUAL) 10 % (0-6); LYMPHOCYTES % (MANUAL) 44 % (13-45); MONOCYTES % (MANUAL) 3 % (3-13); NUCLEATED RED BLOOD CELLS 10 /100 WBC (0); SEGMENTED NEUTROPHILS % (MAN) 43 % (42-78); TOTAL CELLS COUNTED 100
[2019-05-23 08:46] LABS: ANISOCYTOSIS 4+
[2019-05-23 08:47] LABS: PLATELET COMMENT DECREASED; POIKILOCYTOSIS SLIGHT; SICKLE RED CELLS SLIGHT
[2019-05-23 08:57] LABS: HEMATOCRIT 14.3 % (36.0-47.0)
[2019-05-23 08:58] LABS: ALBUMIN 3.8 g/dL (3.5-5.0); ALKALINE PHOSPHATASE 124 U/L (38-126); ANION GAP 6 (5-19); ASPARTATE AMINO TRANSFERASE 45 U/L (14-36); BILIRUBIN,DIRECT 0.5 mg/dL (0.0-0.4); BILIRUBIN,TOTAL 2.5 mg/dL (0.2-1.3); BLOOD UREA NITROGEN 12 mg/dL (7-20); CALCIUM 8.6 mg/dL (8.4-10.2); CARBON DIOXIDE 26 mmol/L (22-30); CHLORIDE 106 mmol/L (98-107); GLUCOSE 91 mg/dL (75-110); POTASSIUM 4.2 mmol/L (3.6-5.0); TOTAL PROTEIN 6.6 g/dL (6.3-8.2)
[2019-05-23] MEDS: GUAIFENESIN 600 MG TABLET.SA PO SCH ×2 (10:42→21:28)
[2019-05-23] MEDS: OXYCODONE HCL SR 10 MG TABLET PO SCH ×2 (10:42→21:28)
[2019-05-23] MEDS: FOLIC ACID 1 MG TABLET PO SCH (10:42)
[2019-05-23] MEDS: MULTIVITAMIN TABLET PO SCH (10:42)
[2019-05-23] MEDS: HYDROXYUREA 500 MG CAPSULE PO SCH ×3 (10:43→17:23)
[2019-05-23] MEDS: ERGOCALCIFEROL (VITAMIN D2) 50000 UNIT (1.25 MG) CAPSULE PO SCH (10:43)
[2019-05-23] MEDS: NITROFURANTOIN MONOHYD/M-CRYST 100 MG CAPSULE PO SCH ×2 (10:43→21:27)
[2019-05-23] MEDS ORDERED: HYDROMORPHONE HCL INJ/PF 2 MG/ML AMPULE IV ONE (13:30)
--- NOTE | 2019-05-23 17:19 | PDOC PROGRESS REPORT ---
Subjective Progress Note for:: 05/23/19 Subjective:: She complain of bone pains, she has sickle cell disease with vaso-occlusive bone pain crisis, questionable bone infarct, will order bone scan Reason For Visit: SICKLE CELL CRISIS Physical Exam Vital Signs: Temp Pulse Resp BP Pulse Ox 98.3 F 95 18 112/66 93 05/23/19 15:56 05/23/19 15:56 05/23/19 15:56 05/23/19 15:56 05/23/19 15:56 Intake & Output 05/22/19 05/23/19 05/24/19 06:59 06:59 06:59 Intake Total 5869 4016 2242 Output Total 4400 2750 1000 Balance 1469 1266 1242 Weight 67.6 kg 68 kg General appearance: PRESENT: no acute distress Eye exam: PRESENT: PERRLA Respiratory exam: PRESENT: clear to auscultation carolyn Cardiovascular exam: PRESENT: +S1, +S2 GI/Abdominal exam: PRESENT: soft Neurological exam: PRESENT: alert Results Laboratory Results: 05/23/19 08:05 05/23/19 08:05 05/23/19 05/23/19 08:05 08:05 WBC 4.6 RBC 1.16 L Hgb 5.1 L Hct 14.3 L* MCV 123 H MCH 44.1 H MCHC 35.8 RDW 23.6 H Plt Count 114 L Seg Neutrophils % Not Reportable Sodium 137.5 Potassium 4.2 Chloride 106 Carbon Dioxide 26 Anion Gap 6 BUN 12 Creatinine 0.60 Est GFR ( Amer) > 60 Glucose 91 Calcium 8.6 Total Bilirubin 2.5 H AST 45 H Alkaline Phosphatase 124 Total Protein 6.6 Albumin 3.8 05/18/19 21:05 Troponin I < 0.012 Impressions: Chest X-Ray 05/18/19 20:20 IMPRESSION: Nodular focus over the left lung base not clearly present on prior studies. Recommend correlation with CT of the chest No evidence of acute process Assessment & Plan - Diagnosis (1) Sickle cell anemia with pain Is this a current diagnosis for this admission?: Yes Plan: Bone scan ordered (2) E. coli UTI Is this a current diagnosis for this admission?: Yes - Time Time Spent with patient: 15-24 minutes
[2019-05-23] MEDS: RIVAROXABAN 10 MG TABLET PO SCH (17:23)
[2019-05-24] MEDS: OXYCODONE HCL IR 5 MG TABLET PO PRN ×2 (01:55→11:52)
[2019-05-24] MEDS: HYDROMORPHONE HCL INJ/PF 2 MG/ML AMPULE IV PRN ×7 (03:17→21:52)
[2019-05-24] MEDS: DIPHENHYDRAMINE HCL 50 MG/ML VIAL IV PRN ×3 (03:17→15:36)
[2019-05-24] MEDS: PANTOPRAZOLE SODIUM 40 MG TABLET.DR PO SCH (06:11)
[2019-05-24] MEDS: GABAPENTIN 300 MG CAPSULE PO SCH ×3 (06:11→21:54)
--- NOTE | 2019-05-24 07:51 | PDOC PROGRESS REPORT ---
Subjective Progress Note for:: 05/24/19 Subjective:: Patient states that she was able to walk in [place] yesterday. However, pain is again worse today. She remains frustrated that she is not improving. She is eating and hydrating well. No increased dyspnea. Reason For Visit: SICKLE CELL CRISIS Physical Exam Vital Signs: Temp Pulse Resp BP Pulse Ox 98.9 F 86 16 104/55 L 96 05/24/19 04:00 05/24/19 04:00 05/24/19 04:00 05/24/19 04:00 05/24/19 04:00 Intake & Output 05/23/19 05/24/19 05/25/19 06:59 06:59 06:59 Intake Total 4016 3963 Output Total 2750 3000 Balance 1266 963 Weight 68 kg 72.7 kg General appearance: PRESENT: well-developed, well-nourished Head exam: PRESENT: normocephalic Respiratory exam: PRESENT: prolonged expiratory phas, wheezes Cardiovascular exam: PRESENT: RRR GI/Abdominal exam: PRESENT: soft. ABSENT: tenderness Musculoskeletal exam: PRESENT: ambulatory Neurological exam: PRESENT: alert, awake Psychiatric exam: PRESENT: appropriate affect Skin exam: PRESENT: normal color Results Laboratory Results: 05/23/19 08:05 05/23/19 08:05 05/23/19 05/23/19 08:05 08:05 WBC 4.6 RBC 1.16 L Hgb 5.1 L Hct 14.3 L* MCV 123 H MCH 44.1 H MCHC 35.8 RDW 23.6 H Plt Count 114 L Seg Neutrophils % Not Reportable Sodium 137.5 Potassium 4.2 Chloride 106 Carbon Dioxide 26 Anion Gap 6 BUN 12 Creatinine 0.60 Est GFR ( Amer) > 60 Glucose 91 Calcium 8.6 Total Bilirubin 2.5 H AST 45 H Alkaline Phosphatase 124 Total Protein 6.6 Albumin 3.8 05/19/19 07:16 Blood Blood Culture - Final NO GROWTH IN 5 DAYS 05/19/19 07:29 Blood Blood Culture - Final NO GROWTH IN 5 DAYS 05/18/19 21:05 Troponin I < 0.012 Impressions: Chest X-Ray 05/18/19 20:20 IMPRESSION: Nodular focus over the left lung base not clearly present on prior studies. Recommend correlation with CT of the chest No evidence of acute process Assessment & Plan - Diagnosis (1) Anemia, sickle cell with crisis Is this a current diagnosis for this admission?: Yes (2) Iron overload due to repeated red blood cell transfusions Is this a current diagnosis for this admission?: Yes (3) E. coli urinary tract infection Is this a current diagnosis for this admission?: Yes - Time Time Spent with patient: 15-24 minutes - Plan Summary Plan Summary: Continue pain meds and antibiotics today. Agree with plans for bone scan. I will repeat CXR as well and if suspicion for pulmonary nodule remains, will order CT chest. Her bili and LDH are improving. Her HGB has remained stable. Hopefully pain will improve soon.
[2019-05-24] MEDS: HYDROXYUREA 500 MG CAPSULE PO SCH ×3 (10:02→17:32)
[2019-05-24] MEDS: FOLIC ACID 1 MG TABLET PO SCH (10:03)
[2019-05-24] MEDS: OXYCODONE HCL SR 10 MG TABLET PO SCH ×2 (10:03→21:54)
[2019-05-24] MEDS: NITROFURANTOIN MONOHYD/M-CRYST 100 MG CAPSULE PO SCH ×2 (10:03→21:56)
[2019-05-24] MEDS: GUAIFENESIN 600 MG TABLET.SA PO SCH ×2 (10:04→21:54)
[2019-05-24] MEDS: MULTIVITAMIN TABLET PO SCH (10:04)
--- NOTE | 2019-05-24 11:38 | RADIOLOGY REPORT (SQ) ---
EXAM DESCRIPTION: CHEST 2 VIEWS COMPLETED DATE/TIME: 05/24/2019 9:22 am REASON FOR STUDY: lung nodule follow-up COMPARISON: 05/18/2019 EXAM PARAMETERS: NUMBER OF VIEWS: two views TECHNIQUE: Digital Frontal and Lateral radiographic views of the chest acquired. RADIATION DOSE: NA LIMITATIONS: none FINDINGS: LUNGS AND PLEURA: Interstitial markings remain prominent. Vague nodular opacity overlying the left base is again noted but most likely represents confluence of shadows. It is not appreciate d on the lateral projection. MEDIASTINUM AND HILAR STRUCTURES: No masses or contour abnormalities. HEART AND VASCULAR STRUCTURES: Heart normal size. No evidence for failure. BONES: No acute findings. HARDWARE: [id number] remains in place. OTHER: No other significant finding. IMPRESSION: No interval change in the chest with prominent bilateral interstitial markings. Subtle nodular density in the left base most likely represents confluence of shadows. TECHNICAL DOCUMENTATION: JOB ID: [id number] [employer]- All Rights Reserved Reading location - IP/workstation name: [email or web address]
[2019-05-24] MEDS: PROMETHAZINE HCL INJ 25 MG/1 ML VIAL IV PRN ×3 (11:52→21:52)
[2019-05-24] MEDS: 1/2 NORMAL SALINE 1,000 ML IV PRN ×2 (11:55→18:22)
--- NOTE | 2019-05-24 16:23 | RADIOLOGY REPORT (SQ) ---
EXAM DESCRIPTION: NM WHOLE BODY BONE SCAN COMPLETED DATE/TIME: 05/24/2019 3:34 pm REASON FOR STUDY: bone pain ? bone infarct COMPARISON: Whole-body bone scan 01/29/2011, 10/04/2012, 08/27/2014, 06/03/2016, 04/18/2018 MRI left ankle 04/09/2019 MRI lumbar spine 12/03/2018 CT abdomen pelvis 12/26/2018 RADIONUCLIDE AND DOSE: 21.5 millicuries Tc99m MDP. The route of agent administration: Intravenous. ADDITIONAL DRUGS AND DOSES: None. TECHNIQUE: Routine delayed images at 3 hours post radionuclide injection acquired of the bony skelet on including anterior and posterior whole-body projections and additional focused images as needed. LIMITATIONS: None. FINDINGS: BONES: There is very mild increased uptake along the bilateral shoulders, knees, ankles, a nd hips similar compared to previous bone scan studies. No increased uptake worrisome for radiographically occult fracture over the skeleton. KIDNEYS: Symmetric excretion without obstruction. OTHER: There is spotty increased uptake along the patient's left-sided permanent central line which w as used for injection today. This is of doubtful clinical significance. IMPRESSION: Polyarthralgia similar compared to prior bone scans COMMENT: Quality measure 147: Current bone scan is compared with any available plain radiographs, p rior bone scans, and CT/MRI. TECHNICAL DOCUMENTATION: JOB ID: [id number] [employer]- All Rights Reserved Reading location - IP/workstation name: [email or web address]
[2019-05-24] MEDS: RIVAROXABAN 10 MG TABLET PO SCH (17:32)
--- NOTE | 2019-05-24 18:59 | PDOC PROGRESS REPORT ---
Subjective Progress Note for:: 05/24/19 Subjective:: Patient seen by the bedside, the bone scan did not demonstrate any bone infarct, no change from prior bone scan. She continues to complain of pain Reason For Visit: SICKLE CELL CRISIS Physical Exam Vital Signs: Temp Pulse Resp BP Pulse Ox 99.1 F 91 20 125/62 95 05/24/19 15:49 05/24/19 15:49 05/24/19 15:49 05/24/19 15:49 05/24/19 15:49 Intake & Output 05/23/19 05/24/19 05/25/19 06:59 06:59 06:59 Intake Total 4016 3963 2688 Output Total 2750 3000 Balance 8546 556 6228 Weight 68 kg 72.7 kg General appearance: PRESENT: no acute distress Eye exam: PRESENT: PERRLA Respiratory exam: PRESENT: clear to auscultation carolyn Cardiovascular exam: PRESENT: +S1, +S2 GI/Abdominal exam: PRESENT: soft Neurological exam: PRESENT: alert Results Laboratory Results: 05/23/19 08:05 05/23/19 08:05 05/19/19 07:16 Blood Blood Culture - Final NO GROWTH IN 5 DAYS 05/19/19 07:29 Blood Blood Culture - Final NO GROWTH IN 5 DAYS 05/18/19 21:05 Troponin I < 0.012 Impressions: Body Scan Nuclear Medicine 05/23/19 00:00 IMPRESSION: Polyarthralgia similar compared to prior bone scans Chest X-Ray 05/24/19 00:00 IMPRESSION: No interval change in the chest with prominent bilateral interstitial markings. Subtle nodular density in the left base most likely represents confluence of shadows. Assessment & Plan - Diagnosis (1) Sickle cell anemia with pain Is this a current diagnosis for this admission?: Yes (2) E. coli UTI Is this a current diagnosis for this admission?: Yes - Time Time Spent with patient: 15-24 minutes Level of Care: IMCU - Plan Summary Plan Summary: She will continue present treatment
[2019-05-25] MEDS: 1/2 NORMAL SALINE 1,000 ML IV PRN ×3 (01:15→20:06)
[2019-05-25] MEDS: HYDROMORPHONE HCL INJ/PF 2 MG/ML AMPULE IV PRN ×8 (01:15→22:55)
[2019-05-25] MEDS: DIPHENHYDRAMINE HCL 50 MG/ML VIAL IV PRN ×4 (01:16→20:05)
[2019-05-25] MEDS: PROMETHAZINE HCL INJ 25 MG/1 ML VIAL IV PRN ×4 (01:17→22:55)
[2019-05-25] MEDS: PANTOPRAZOLE SODIUM 40 MG TABLET.DR PO SCH (05:27)
[2019-05-25] MEDS: GABAPENTIN 300 MG CAPSULE PO SCH ×3 (05:27→21:22)
[2019-05-25] MEDS ORDERED: NORMAL SALINE 1000 ML 1,000 ML with POTASSIUM CHLORIDE 20 MEQ, MAGNESIUM SULFATE 8 MEQ,... IV PRN ×5 (08:02)
--- NOTE | 2019-05-25 08:06 | PDOC PROGRESS REPORT ---
Subjective Progress Note for:: 05/25/19 Subjective:: Patient feeling a bit better. Her feet are starting to swell. She was able to walk in [place] yesterday. ROS: No constipation. No dyspnea. Reason For Visit: SICKLE CELL CRISIS Physical Exam Vital Signs: Temp Pulse Resp BP Pulse Ox 98.3 F 85 16 106/42 L 93 05/25/19 04:00 05/25/19 04:00 05/25/19 04:00 05/25/19 04:00 05/25/19 04:00 Intake & Output 05/24/19 05/25/19 05/26/19 06:59 06:59 06:59 Intake Total 3963 5406 945 Output Total 3000 Balance 963 5406 945 Weight 72.7 kg 72.9 kg General appearance: PRESENT: well-developed, well-nourished Head exam: PRESENT: normocephalic Eye exam: PRESENT: EOMI Respiratory exam: PRESENT: unlabored Extremities exam: ABSENT: pedal edema Neurological exam: PRESENT: alert, awake Psychiatric exam: PRESENT: appropriate affect Skin exam: PRESENT: normal color Results Laboratory Results: 05/23/19 08:05 05/23/19 08:05 05/19/19 07:16 Blood Blood Culture - Final NO GROWTH IN 5 DAYS 05/19/19 07:29 Blood Blood Culture - Final NO GROWTH IN 5 DAYS 05/18/19 21:05 Troponin I < 0.012 Impressions: Body Scan Nuclear Medicine 05/23/19 00:00 IMPRESSION: Polyarthralgia similar compared to prior bone scans Chest X-Ray 05/24/19 00:00 IMPRESSION: No interval change in the chest with prominent bilateral interstitial markings. Subtle nodular density in the left base most likely represents confluence of shadows. Assessment & Plan - Diagnosis (1) Anemia, sickle cell with crisis Is this a current diagnosis for this admission?: Yes Plan: I will decrease dilaudid today. Hope to wean this down over the weekend and plan for Discharge early next week. I will give 1 banana bag, per patient request. (2) Iron overload due to repeated red blood cell transfusions Is this a current diagnosis for this admission?: Yes (3) E. coli urinary tract infection Is this a current diagnosis for this admission?: Yes - Time Time Spent with patient: 15-24 minutes - Plan Summary Plan Summary: I have encouraged her to walk in [place] as much as possible. Repeat CXR did not show a suspicious mass. Bone scan showed no new areas of concern.
[2019-05-25] MEDS: HYDROXYUREA 500 MG CAPSULE PO SCH ×3 (10:23→17:00)
[2019-05-25] MEDS: FOLIC ACID 1 MG TABLET PO SCH (10:23)
[2019-05-25] MEDS: GUAIFENESIN 600 MG TABLET.SA PO SCH ×2 (10:23→21:22)
[2019-05-25] MEDS: OXYCODONE HCL SR 10 MG TABLET PO SCH ×2 (10:23→21:22)
[2019-05-25] MEDS: NITROFURANTOIN MONOHYD/M-CRYST 100 MG CAPSULE PO SCH ×2 (10:24→21:22)
[2019-05-25] MEDS: MULTIVITAMIN TABLET PO SCH (10:24)
[2019-05-25] MEDS: RIVAROXABAN 10 MG TABLET PO SCH (17:00)
--- NOTE | 2019-05-25 22:51 | PDOC PROGRESS REPORT ---
Subjective Progress Note for:: 05/25/19 Subjective:: Patient seen by the bedside, complaining of swelling of the left leg advised to use sequential teds SCDs she has less pain today Reason For Visit: SICKLE CELL CRISIS Physical Exam Vital Signs: Temp Pulse Resp BP Pulse Ox 99.2 F 91 17 110/55 L 96 05/25/19 20:28 05/25/19 20:28 05/25/19 20:28 05/25/19 20:28 05/25/19 20:28 Intake & Output 05/24/19 05/25/19 05/26/19 06:59 06:59 06:59 Intake Total 3963 5406 3818 Output Total 3000 Balance 963 5406 3818 Weight 72.7 kg 72.9 kg General appearance: PRESENT: no acute distress Eye exam: PRESENT: PERRLA Respiratory exam: PRESENT: clear to auscultation carolyn Cardiovascular exam: PRESENT: +S2 GI/Abdominal exam: PRESENT: soft Neurological exam: PRESENT: alert Results Laboratory Results: 05/23/19 08:05 05/23/19 08:05 05/18/19 21:05 Troponin I < 0.012 Impressions: Body Scan Nuclear Medicine 05/23/19 00:00 IMPRESSION: Polyarthralgia similar compared to prior bone scans Chest X-Ray 05/24/19 00:00 IMPRESSION: No interval change in the chest with prominent bilateral interstitial markings. Subtle nodular density in the left base most likely represents confluence of shadows. Assessment & Plan - Diagnosis (1) Sickle cell anemia with pain Is this a current diagnosis for this admission?: Yes Plan: Continue treatment (2) E. coli UTI Is this a current diagnosis for this admission?: Yes - Time Time Spent with patient: 15-24 minutes
[2019-05-26] MEDS: 1/2 NORMAL SALINE 1,000 ML IV PRN ×3 (01:53→18:55)
[2019-05-26] MEDS: DIPHENHYDRAMINE HCL 50 MG/ML VIAL IV PRN ×4 (01:54→22:54)
[2019-05-26] MEDS: HYDROMORPHONE HCL INJ/PF 2 MG/ML AMPULE IV PRN ×7 (01:54→22:55)
[2019-05-26] MEDS: GABAPENTIN 300 MG CAPSULE PO SCH ×3 (05:24→21:53)
[2019-05-26] MEDS: PROMETHAZINE HCL INJ 25 MG/1 ML VIAL IV PRN (05:24)
[2019-05-26] MEDS: PANTOPRAZOLE SODIUM 40 MG TABLET.DR PO SCH (05:24)
[2019-05-26] MEDS: OXYCODONE HCL SR 10 MG TABLET PO SCH ×2 (09:59→21:53)
[2019-05-26] MEDS: HYDROXYUREA 500 MG CAPSULE PO SCH ×3 (10:01→18:53)
[2019-05-26] MEDS: MULTIVITAMIN TABLET PO SCH (10:02)
[2019-05-26] MEDS: NITROFURANTOIN MONOHYD/M-CRYST 100 MG CAPSULE PO SCH ×2 (10:02→21:53)
[2019-05-26] MEDS: GUAIFENESIN 600 MG TABLET.SA PO SCH ×2 (10:02→21:53)
[2019-05-26] MEDS: FOLIC ACID 1 MG TABLET PO SCH (10:03)
[2019-05-26] MEDS: OXYCODONE HCL IR 5 MG TABLET PO PRN (14:53)
--- NOTE | 2019-05-26 16:12 | PDOC PROGRESS REPORT ---
Subjective Progress Note for:: 05/26/19 Subjective:: Patient complaining of swelling in her feet/ankles. She states that she was able to walk yesterday, but has not yet done so today. No new complaints, but ankles still hurt. Reason For Visit: SICKLE CELL CRISIS Physical Exam Vital Signs: Temp Pulse Resp BP Pulse Ox 99.0 F 82 18 106/62 96 05/26/19 07:45 05/26/19 07:45 05/26/19 07:45 05/26/19 07:45 05/26/19 07:45 Intake & Output 05/25/19 05/26/19 05/27/19 06:59 06:59 06:59 Intake Total 5406 4685 1000 Balance 5406 4685 1000 Weight 72.9 kg 71.7 kg General appearance: PRESENT: no acute distress, well-developed, well-nourished Head exam: PRESENT: normocephalic Eye exam: PRESENT: EOMI Respiratory exam: PRESENT: clear to auscultation carolyn, unlabored Cardiovascular exam: PRESENT: RRR GI/Abdominal exam: PRESENT: normal bowel sounds, soft. ABSENT: tenderness Extremities exam: PRESENT: +1 edema Neurological exam: PRESENT: alert, awake Psychiatric exam: PRESENT: appropriate affect Skin exam: PRESENT: normal color Results Laboratory Results: 05/23/19 08:05 05/23/19 08:05 05/18/19 21:05 Troponin I < 0.012 Impressions: Body Scan Nuclear Medicine 05/23/19 00:00 IMPRESSION: Polyarthralgia similar compared to prior bone scans Chest X-Ray 05/24/19 00:00 IMPRESSION: No interval change in the chest with prominent bilateral interstitial markings. Subtle nodular density in the left base most likely represents confluence of shadows. Assessment & Plan - Diagnosis (1) Anemia, sickle cell with crisis Is this a current diagnosis for this admission?: Yes Plan: Will continue to wean her narcotics. Continue fluids, O2. I will repeat labs in AM. (2) Iron overload due to repeated red blood cell transfusions Is this a current diagnosis for this admission?: Yes Plan: Continue Jadenu. Continue Xarelto for DVT prophylaxis. (3) E. coli urinary tract infection Is this a current diagnosis for this admission?: Yes - Time Time Spent with patient: 15-24 minutes
--- NOTE | 2019-05-26 16:57 | PDOC PROGRESS REPORT ---
Subjective Progress Note for:: 05/26/19 Subjective:: Patient reported painful leg swelling since admission. She denied ant chest pain or difficulty with breathing. No fever or chills. Reported intermittent nausea resolved with current mediation management. Reason For Visit: SICKLE CELL CRISIS Physical Exam Vital Signs: Temp Pulse Resp BP Pulse Ox 99.0 F 82 18 106/62 96 05/26/19 07:45 05/26/19 07:45 05/26/19 07:45 05/26/19 07:45 05/26/19 07:45 Intake & Output 05/25/19 05/26/19 05/27/19 06:59 06:59 06:59 Intake Total 5406 4685 1000 Balance 5406 4685 1000 Weight 72.9 kg 71.7 kg General appearance: PRESENT: mild distress - from pain in legs Head exam: PRESENT: atraumatic, normocephalic Eye exam: PRESENT: conjunctiva pink, EOMI, PERRLA. ABSENT: scleral icterus Ear exam: PRESENT: normal external ear exam Mouth exam: PRESENT: moist Respiratory exam: PRESENT: clear to auscultation carolyn Cardiovascular exam: PRESENT: RRR. ABSENT: diastolic murmur, rubs, systolic murmur Vascular exam: ABSENT: pallor GI/Abdominal exam: PRESENT: normal bowel sounds, soft. ABSENT: distended, guarding, mass, organolmegaly, rebound, tenderness Extremities exam: PRESENT: pedal edema - minimal to feet and ankle region left > right Neurological exam: PRESENT: alert, awake, oriented to person, oriented to place, oriented to time, oriented to situation, CN II-XII grossly intact. ABSENT: motor sensory deficit Psychiatric exam: PRESENT: appropriate affect, normal mood. ABSENT: homicidal ideation, suicidal ideation Skin exam: PRESENT: dry, warm Results Laboratory Results: 05/23/19 08:05 05/23/19 08:05 05/18/19 21:05 Troponin I < 0.012 Impressions: Body Scan Nuclear Medicine 05/23/19 00:00 IMPRESSION: Polyarthralgia similar compared to prior bone scans Chest X-Ray 05/24/19 00:00 IMPRESSION: No interval change in the chest with prominent bilateral interstit ial markings. Subtle nodular density in the left base most likely represents confluence of shadows. Assessment & Plan - Diagnosis (1) Anemia, sickle cell with crisis Is this a current diagnosis for this admission?: Yes Plan: Her need for blood transfusion will be discussed with manager hotel, Dr. Ramirez, in view of her issu of iron overload from repeated blood transfusion. (2) Sickle cell hemoglobin C disease Qualifiers: Sickle-cell associated disorders: with unspecified crisis Qualified Code(s): D57.219 - Sickle-cell/Hb-C disease with crisis, unspecified Is this a current diagnosis for this admission?: Yes Plan: Continue her current pain medication management with effort to taper down her opiod usage. (3) E. coli urinary tract infection Is this a current diagnosis for this admission?: Yes Plan: Continue IV Rocephin coverage. (4) Swelling of lower leg Is this a current diagnosis for this admission?: Yes Plan: Consider arterial duplex evaluation of lower extremities in view of her vaso- occlusive disease. - Time Time Spent with patient: 25-34 minutes Level of Care: TELE Medications reviewed and adjusted accordingly: Yes Anticipated discharge: Home with Homehealth Within: Other - Inpatient Certification Based on my medical assessment, after consideration of the patient's comorbidities, presenting symptoms, or acuity I expect that the services needed warrant INPATIENT care.: Yes I certify that my determination is in accordance with my understanding of Medicare's requirements for reasonable and necessary INPATIENT services [42 CFR 412.3e].: Yes Medical Necessity: Significant Comorbidiites Make Outpatient Treatment Too Risky, Need Close Monitoring Due to Risk of Patient Decompensation, Need For IV Fluids, Need For Continuous Telemetry Monitoring, Need for Pain Control, Need for IV Antibiotics, Risk of Complication if Not Cared For in Hospital, Risk of Diagnosis Which Will Require Inpatient Eval/Care/Monitoring Post 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
[2019-05-26] MEDS: RIVAROXABAN 10 MG TABLET PO SCH (18:53)
[2019-05-27] MEDS: HYDROMORPHONE HCL INJ/PF 2 MG/ML AMPULE IV PRN ×8 (02:04→23:23)
[2019-05-27] MEDS: 1/2 NORMAL SALINE 1,000 ML IV PRN ×2 (02:04→12:11)
[2019-05-27] MEDS: GABAPENTIN 300 MG CAPSULE PO SCH ×3 (05:03→21:46)
[2019-05-27] MEDS: DIPHENHYDRAMINE HCL 50 MG/ML VIAL IV PRN ×4 (05:03→23:24)
[2019-05-27] MEDS: PANTOPRAZOLE SODIUM 40 MG TABLET.DR PO SCH (05:03)
[2019-05-27 06:10] LABS: MEAN CORPUSCULAR HEMOGLOBIN 44.6 pg (27.0-33.4); MEAN CORPUSCULAR HGB CONC 35.4 g/dL (32.0-36.0); PLATELET COUNT 145 10^3/uL (150-450); RED BLOOD COUNT 1.04 10^6/uL (3.72-5.28); RED CELL DISTRIBUTION WIDTH 26.3 % (11.5-14.0)
[2019-05-27 06:25] LABS: ALBUMIN 3.6 g/dL (3.5-5.0); ALKALINE PHOSPHATASE 125 U/L (38-126); ANION GAP 7 (5-19); ASPARTATE AMINO TRANSFERASE 59 U/L (14-36); BILIRUBIN,DIRECT 0.3 mg/dL (0.0-0.4); BILIRUBIN,TOTAL 2.7 mg/dL (0.2-1.3); BLOOD UREA NITROGEN 9 mg/dL (7-20); CALCIUM 8.5 mg/dL (8.4-10.2); CARBON DIOXIDE 26 mmol/L (22-30); CHLORIDE 105 mmol/L (98-107); GLUCOSE 98 mg/dL (75-110); POTASSIUM 4.3 mmol/L (3.6-5.0); TOTAL PROTEIN 6.3 g/dL (6.3-8.2)
[2019-05-27 06:39] LABS: MEAN CORPUSCULAR VOLUME 126 fl (80-97)
[2019-05-27 06:43] LABS: HEMATOCRIT 13.1 % (36.0-47.0)
[2019-05-27 06:51] LABS: ABSOLUTE MONOCYTES # (MANUAL) 0.3 10^3/uL (0.1-1.4); BASOPHILS % (MANUAL) 2 % (0-2); EOSINOPHILS % (MANUAL) 1 % (0-6); LYMPHOCYTES % (MANUAL) 54 % (13-45); MONOCYTES % (MANUAL) 7 % (3-13); SEGMENTED NEUTROPHILS % (MAN) 36 % (42-78); TOTAL CELLS COUNTED 100
[2019-05-27 07:02] LABS: ANISOCYTOSIS 3+; POIKILOCYTOSIS 3+; TOXIC GRANULATION 1+
[2019-05-27 07:03] LABS: OVALOCYTES 2+; PLATELET COMMENT ADEQUATE; SCHISTOCYTES 2+; SICKLE RED CELLS 3+; TEAR DROP CELLS 1+
[2019-05-27 07:04] LABS: WHITE BLOOD COUNT 4.6 10^3/uL (4.0-10.5)
[2019-05-27] MEDS: PROMETHAZINE HCL INJ 25 MG/1 ML VIAL IV PRN (08:19)
[2019-05-27] MEDS: OXYCODONE HCL SR 10 MG TABLET PO SCH ×2 (09:00→21:46)
[2019-05-27] MEDS ORDERED: EPOETIN ALFA-EPBX 30,000 UNIT in SYRINGE, DISPOSABLE, 1 EACH SUBCUT ONE (09:00)
[2019-05-27] MEDS: NITROFURANTOIN MONOHYD/M-CRYST 100 MG CAPSULE PO SCH ×2 (10:52→21:45)
[2019-05-27] MEDS: MULTIVITAMIN TABLET PO SCH (10:53)
[2019-05-27] MEDS: GUAIFENESIN 600 MG TABLET.SA PO SCH ×2 (10:53→21:45)
[2019-05-27] MEDS: HYDROXYUREA 500 MG CAPSULE PO SCH ×3 (10:54→17:26)
[2019-05-27] MEDS: FOLIC ACID 1 MG TABLET PO SCH (10:54)
--- NOTE | 2019-05-27 12:29 | PDOC PROGRESS REPORT ---
Subjective Progress Note for:: 05/27/19 Subjective:: Patient reported not feeling right today. Her ain level is fairly controlled. She denied ant chest pain or difficulty with breathing. No fever or chills. There is nausea but no vomiting. Reason For Visit: SICKLE CELL CRISIS Physical Exam Vital Signs: Temp Pulse Resp BP Pulse Ox 99.1 F 88 16 108/62 97 05/27/19 08:37 05/27/19 08:37 05/27/19 08:37 05/27/19 08:37 05/27/19 08:37 Intake & Output 05/26/19 05/27/19 05/28/19 06:59 06:59 06:59 Intake Total 4685 3480 1000 Balance 4685 3480 1000 Weight 71.7 kg 64.1 kg Physical Exam: General appearance: PRESENT: mild distress - from pain in legs Head exam: PRESENT: atraumatic, normocephalic Eye exam: PRESENT: conjunctiva pale. ABSENT: scleral icterus Ear exam: PRESENT: normal external ear exam Mouth exam: PRESENT: moist Respiratory exam: PRESENT: clear to auscultation carolyn Cardiovascular exam: PRESENT: RRR. ABSENT: diastolic murmur, rubs, systolic murmur GI/Abdominal exam: PRESENT: normal bowel sounds, soft. ABSENT: distended, guarding, mass, organomegaly, rebound, tenderness Extremities exam: PRESENT: pedal edema - minimal to feet and ankle region left > right Neurological exam: PRESENT: alert, awake, oriented to person, oriented to place, oriented to time, oriented to situation, CN II-XII grossly intact. ABSENT: motor sensory deficit Psychiatric exam: PRESENT: appropriate affect, normal mood. ABSENT: homicidal ideation, suicidal ideation Skin exam: PRESENT: dry, warm Results Laboratory Results: 05/27/19 05:10 05/27/19 05:10 05/27/19 05/27/19 05:10 05:10 WBC 4.6 RBC 1.04 L Hgb 4.6 L* Hct 13.1 L* MCV 126 H MCH 44.6 H MCHC 35.4 RDW 26.3 H Plt Count 145 L Seg Neutrophils % Not Reportable Sodium 138.2 Potassium 4.3 Chloride 105 Carbon Dioxide 26 Anion Gap 7 BUN 9 Creatinine 0.51 L Est GFR ( Amer) > 60 Glucose 98 Calcium 8.5 Total Bilirubin 2.7 H AST 59 H Alkaline Phosphatase 125 Total Protein 6.3 Albumin 3.6 05/18/19 21:05 Troponin I < 0.012 Impressions: Body Scan Nuclear Medicine 05/23/19 00:00 IMPRESSION: Polyarthralgia similar compared to prior bone scans Chest X-Ray 05/24/19 00:00 IMPRESSION: No interval change in the chest with prominent bilateral interstitial markings. Subtle nodular density in the left base most likely represents confluence of shadows. Assessment & Plan - Diagnosis (1) Anemia, sickle cell with crisis Is this a current diagnosis for this admission?: Yes (2) Sickle cell hemoglobin C disease Qualifiers: Sickle-cell associated disorders: with unspecified crisis Qualified Code(s): D57.219 - Sickle-cell/Hb-C disease with crisis, unspecified Is this a current diagnosis for this admission?: Yes (3) E. coli urinary tract infection Is this a current diagnosis for this admission?: Yes (4) Swelling of lower leg Is this a current diagnosis for this admission?: Yes - Time Time Spent with patient: 25-34 minutes Level of Care: TELE Medications reviewed and adjusted accordingly: Yes Anticipated discharge: Home Within: Other - Inpatient Certification Based on my medical assessment, after consideration of the patient's comorbidities, presenting symptoms, or acuity I expect that the services needed warrant INPATIENT care.: Yes I certify that my determination is in accordance with my understanding of Medicare's requirements for reasonable and necessary INPATIENT services [42 CFR 412.3e].: Yes Medical Necessity: Significant Comorbidiites Make Outpatient Treatment Too Risky, Need Close Monitoring Due to Risk of Patient Decompensation, Need For IV Fluids, Need For Continuous Telemetry Monitoring, Need for Pain Control, Risk of Complication if Not Cared For in Hospital, Risk of Diagnosis Which Will Require Inpatient Eval/Care/Monitoring 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 hereis concern for iron overload. I discussed case with Dr. Ramirez, electrical products engineer/oncologist, on the case and I will leave the decision to transfuse to her. Continue all other current medication management.
[2019-05-27] MEDS ORDERED: NORMAL SALINE 250 ML IV PRN (14:09)
--- NOTE | 2019-05-27 14:18 | PDOC PROGRESS REPORT ---
Subjective Progress Note for:: 05/27/19 Subjective:: Patient is not feeling as well today, but her Dilaudid is now only 1/2 the dose it was 2 days ago. She has not been able to get up and walk today. No new complaints otherwise. Reason For Visit: SICKLE CELL CRISIS Physical Exam Vital Signs: Temp Pulse Resp BP Pulse Ox 99.3 F 83 16 108/52 L 98 05/27/19 12:02 05/27/19 12:02 05/27/19 12:02 05/27/19 12:02 05/27/19 12:02 Intake & Output 05/26/19 05/27/19 05/28/19 06:59 06:59 06:59 Intake Total 4685 3480 1240 Balance 4685 3480 1240 Weight 71.7 kg 64.1 kg General appearance: PRESENT: no acute distress, well-developed, well-nourished Exam: In obvious pain. Head exam: PRESENT: normocephalic Respiratory exam: PRESENT: unlabored Neurological exam: PRESENT: alert, awake Psychiatric exam: PRESENT: appropriate affect Skin exam: PRESENT: normal color Results Laboratory Results: 05/27/19 05:10 05/27/19 05:10 05/27/19 05/27/19 05:10 05:10 WBC 4.6 RBC 1.04 L Hgb 4.6 L* Hct 13.1 L* MCV 126 H MCH 44.6 H MCHC 35.4 RDW 26.3 H Plt Count 145 L Seg Neutrophils % Not Reportable Sodium 138.2 Potassium 4.3 Chloride 105 Carbon Dioxide 26 Anion Gap 7 BUN 9 Creatinine 0.51 L Est GFR ( Amer) > 60 Glucose 98 Calcium 8.5 Total Bilirubin 2.7 H AST 59 H Alkaline Phosphatase 125 Total Protein 6.3 Albumin 3.6 05/18/19 21:05 Troponin I < 0.012 Impressions: Body Scan Nuclear Medicine 05/23/19 00:00 IMPRESSION: Polyarthralgia similar compared to prior bone scans Chest X-Ray 05/24/19 00:00 IMPRESSION: No interval change in the chest with prominent bilateral inters titial markings. Subtle nodular density in the left base most likely represents confluence of shadows. Assessment & Plan - Diagnosis (1) Anemia, sickle cell with crisis Is this a current diagnosis for this admission?: Yes Plan: She received Procrit today. We discussed blood transfusion. Patient understand risks and benefits for blood transfusions. She request 1 unit today. I will arrange. Continue pain medications without changes today. (2) Iron overload due to repeated red blood cell transfusions Is this a current diagnosis for this admission?: Yes Plan: Continue Jardenu (3) E. coli urinary tract infection Is this a current diagnosis for this admission?: Yes - Time Time Spent with patient: 15-24 minutes - Plan Summary Plan Summary: Continue all other treatment without changes. Her Bili and LDH are much improved, so hemolysis is better.
[2019-05-27] MEDS: RIVAROXABAN 10 MG TABLET PO SCH (17:26)
[2019-05-27] MEDS: OXYCODONE HCL IR 5 MG TABLET PO PRN (18:34)
[2019-05-27 23:59] LABS: HEMATOCRIT 18.2 % (36.0-47.0); MEAN CORPUSCULAR HEMOGLOBIN 41.4 pg (27.0-33.4); MEAN CORPUSCULAR HGB CONC 35.7 g/dL (32.0-36.0); PLATELET COUNT 161 10^3/uL (150-450); RED BLOOD COUNT 1.57 10^6/uL (3.72-5.28); RED CELL DISTRIBUTION WIDTH 29.4 % (11.5-14.0); WHITE BLOOD COUNT 4.3 10^3/uL (4.0-10.5)
[2019-05-28 00:53] LABS: ABSOLUTE LYMPHOCYTES# (MANUAL) 2.3 10^3/uL (0.5-4.7); ABSOLUTE MONOCYTES # (MANUAL) 0.1 10^3/uL (0.1-1.4); ANISOCYTOSIS 4+; BASOPHILS % (MANUAL) 0 % (0-2); EOSINOPHILS % (MANUAL) 4 % (0-6); LYMPHOCYTES % (MANUAL) 53 % (13-45); MONOCYTES % (MANUAL) 3 % (3-13); NUCLEATED RED BLOOD CELLS 68 /100 WBC (0); PLATELET COMMENT ADEQUATE; POLYCHROMASIA 2+; SEGMENTED NEUTROPHILS % (MAN) 40 % (42-78); SICKLE RED CELLS 1+; TARGET CELLS 1+; TOTAL CELLS COUNTED 100
[2019-05-28 00:54] LABS: HEMOGLOBIN 6.5 g/dL (12.0-15.5)
[2019-05-28 00:56] LABS: MEAN CORPUSCULAR VOLUME 116 fl (80-97)
[2019-05-28] MEDS: 1/2 NORMAL SALINE 1,000 ML IV PRN ×3 (02:11→18:59)
[2019-05-28] MEDS: HYDROMORPHONE HCL INJ/PF 2 MG/ML AMPULE IV PRN ×5 (02:11→21:45)
[2019-05-28] MEDS: PROMETHAZINE HCL INJ 25 MG/1 ML VIAL IV PRN ×3 (02:11→14:02)
[2019-05-28] MEDS: GABAPENTIN 300 MG CAPSULE PO SCH ×3 (05:13→21:46)
[2019-05-28] MEDS: PANTOPRAZOLE SODIUM 40 MG TABLET.DR PO SCH (05:13)
[2019-05-28] MEDS: DIPHENHYDRAMINE HCL 50 MG/ML VIAL IV PRN ×3 (05:14→17:09)
--- NOTE | 2019-05-28 07:40 | PDOC PROGRESS REPORT ---
Subjective Progress Note for:: 05/28/19 Subjective:: Patient states that she is feeling very weak. Overall, not feeling well, as narcotics are continually being slowly weaned. She was only able to walk in the [place] once yesterday. She is trying to eat and drink. She received 1 unit pRBCs yesterday without problems. ROS: No dyspnea. No constipation Reason For Visit: SICKLE CELL CRISIS Physical Exam Vital Signs: Temp Pulse Resp BP Pulse Ox 98.2 F 78 16 105/63 100 05/28/19 04:00 05/28/19 04:00 05/28/19 04:00 05/28/19 04:00 05/28/19 04:00 Intake & Output 05/27/19 05/28/19 05/29/19 06:59 06:59 06:59 Intake Total 3480 3310 Balance 3480 3310 Weight 64.1 kg 69.2 kg General appearance: PRESENT: no acute distress, well-developed, well-nourished Head exam: PRESENT: normocephalic Respiratory exam: PRESENT: unlabored Extremities exam: ABSENT: pedal edema Neurological exam: PRESENT: alert, awake Psychiatric exam: PRESENT: appropriate affect Skin exam: PRESENT: normal color Results Laboratory Results: 05/27/19 23:30 05/27/19 05:10 05/27/19 05/27/19 14:20 23:30 WBC 4.3 RBC 1.57 L Hgb 6.5 L Hct 18.2 L MCV 116 H D MCH 41.4 H MCHC 35.7 RDW 29.4 H Plt Count 161 Seg Neutrophils % Not Reportable Blood Type O POSITIVE Antibody Screen NEGATIVE 05/18/19 21:05 Troponin I < 0.012 Impressions: Body Scan Nuclear Medicine 05/23/19 00:00 IMPRESSION: Polyarthralgia similar compared to prior bone scans Chest X-Ray 05/24/19 00:00 IMPRESSION: No interval change in the chest with prominent bilateral interstitial markings. Subtle nodular density in the left base most likely represents confluence of shadows. Assessment & Plan - Diagnosis (1) Anemia, sickle cell with crisis Is this a current diagnosis for this admission?: Yes Plan: Her IV dilaudid is being weaned. She has been encouraged to take more PO oxycodone and less IV dilaudid. She was encouraged to walk in [place] as much as possible today. Hopefully, will be able to go home in AM. (2) Iron overload due to repeated red blood cell transfusions Is this a current diagnosis for this admission?: Yes Plan: Continue Jadenu and Xaralto (DVT prophylaxis) (3) E. coli urinary tract infection Is this a current diagnosis for this admission?: Yes Plan: She will complete 7 days of Macrobid tomorrow. - Time Time Spent with patient: 15-24 minutes - Plan Summary Plan Summary: Plan for discharge in the AM.
[2019-05-28] MEDS: OXYCODONE HCL SR 10 MG TABLET PO SCH ×2 (09:00→21:46)
[2019-05-28] MEDS: OXYCODONE HCL IR 5 MG TABLET PO PRN ×3 (10:30→18:58)
[2019-05-28 10:39] LABS: HEMOGLOBIN 4.6 g/dL (12.0-15.5)
[2019-05-28 10:40] LABS: NUCLEATED RED BLOOD CELLS 30 /100 WBC (0)
[2019-05-28] MEDS: MULTIVITAMIN TABLET PO SCH (10:45)
[2019-05-28] MEDS: HYDROXYUREA 500 MG CAPSULE PO SCH ×3 (10:45→17:34)
[2019-05-28] MEDS: FOLIC ACID 1 MG TABLET PO SCH (10:45)
[2019-05-28] MEDS: GUAIFENESIN 600 MG TABLET.SA PO SCH ×2 (10:46→21:46)
[2019-05-28] MEDS: NITROFURANTOIN MONOHYD/M-CRYST 100 MG CAPSULE PO SCH ×2 (10:46→21:46)
[2019-05-28] MEDS: RIVAROXABAN 10 MG TABLET PO SCH (17:34)
--- NOTE | 2019-05-28 21:04 | PDOC PROGRESS REPORT ---
Subjective Progress Note for:: 05/28/19 Subjective:: Patient seen by the bedside, hemoglobin was as low as 4, she was transfused with 1 unit of red blood cells Reason For Visit: SICKLE CELL CRISIS Physical Exam Vital Signs: Temp Pulse Resp BP Pulse Ox 98.6 F 82 16 114/63 96 05/28/19 20:00 05/28/19 20:00 05/28/19 20:00 05/28/19 20:00 05/28/19 20:00 Intake & Output 05/27/19 05/28/19 05/29/19 06:59 06:59 06:59 Intake Total 3480 3310 2780 Balance 3480 3310 2780 Weight 64.1 kg 69.2 kg 69.2 kg General appearance: PRESENT: no acute distress Eye exam: PRESENT: PERRLA Respiratory exam: PRESENT: clear to auscultation carolyn Cardiovascular exam: PRESENT: +S1, +S2 GI/Abdominal exam: PRESENT: soft Results Laboratory Results: 05/27/19 23:30 05/27/19 05:10 05/27/19 05/27/19 05:10 23:30 WBC 4.3 RBC 1.57 L Hgb 4.6 L* 6.5 L Hct 18.2 L MCV 116 H D MCH 41.4 H MCHC 35.7 RDW 29.4 H Plt Count 161 Seg Neutrophils % Not Reportable 05/18/19 21:05 Troponin I < 0.012 Impressions: Body Scan Nuclear Medicine 05/23/19 00:00 IMPRESSION: Polyarthralgia similar compared to prior bone scans Chest X-Ray 05/24/19 00:00 IMPRESSION: No interval change in the chest with prominent bilateral intersti tial markings. Subtle nodular density in the left base most likely represents confluence of shadows. Assessment & Plan - Diagnosis (1) Sickle cell anemia with pain Is this a current diagnosis for this admission?: Yes (2) E. coli UTI Is this a current diagnosis for this admission?: Yes - Time Time Spent with patient: Less than 15 minutes
[2019-05-29] MEDS: 1/2 NORMAL SALINE 1,000 ML IV PRN ×3 (00:01→13:25)
[2019-05-29] MEDS: HYDROMORPHONE HCL INJ/PF 2 MG/ML AMPULE IV PRN ×7 (01:38→23:18)
[2019-05-29] MEDS: DIPHENHYDRAMINE HCL 50 MG/ML VIAL IV PRN ×4 (01:38→23:17)
[2019-05-29] MEDS: GABAPENTIN 300 MG CAPSULE PO SCH ×3 (05:49→21:45)
[2019-05-29] MEDS: PANTOPRAZOLE SODIUM 40 MG TABLET.DR PO SCH (05:49)
[2019-05-29] MEDS: PROMETHAZINE HCL INJ 25 MG/1 ML VIAL IV PRN ×3 (05:56→20:11)
--- NOTE | 2019-05-29 09:02 | PDOC PROGRESS REPORT ---
Subjective Progress Note for:: 05/29/19 Subjective:: Patient states that she did well yesterday. She was able to walk in [place]. Nurses report that she used less dilaudid. Patient is agreeable to discharge today. Reason For Visit: SICKLE CELL CRISIS Physical Exam Vital Signs: Temp Pulse Resp BP Pulse Ox 99.0 F 78 16 112/64 99 05/29/19 04:00 05/29/19 04:00 05/29/19 04:00 05/29/19 04:00 05/29/19 04:00 Intake & Output 05/28/19 05/29/19 05/30/19 06:59 06:59 06:59 Intake Total 3310 5585 Balance 3310 5585 Weight 69.2 kg 70 kg General appearance: PRESENT: well-developed, well-nourished Head exam: PRESENT: normocephalic Respiratory exam: PRESENT: unlabored GI/Abdominal exam: PRESENT: tenderness Neurological exam: PRESENT: alert, awake Psychiatric exam: PRESENT: appropriate affect Skin exam: PRESENT: normal color Results Laboratory Results: 05/27/19 23:30 05/27/19 05:10 05/27/19 05:10 Hgb 4.6 L* 05/18/19 21:05 Troponin I < 0.012 Impressions: Body Scan Nuclear Medicine 05/23/19 00:00 IMPRESSION: Polyarthralgia similar compared to prior bone scans Chest X-Ray 05/24/19 00:00 IMPRESSION: No interval change in the chest with prominent bilateral inters titial markings. Subtle nodular density in the left base most likely represents confluence of shadows. Assessment & Plan - Diagnosis (1) Anemia, sickle cell with crisis Is this a current diagnosis for this admission?: Yes Plan: OK from my standpoint to discharge today. She should have enough narcotics to last her another week at home and I will see her again later this week or next week to refill her narcotics in my office. (2) Iron overload due to repeated red blood cell transfusions Is this a current diagnosis for this admission?: Yes Plan: She will continue Jadenu at home. (3) E. coli urinary tract infection Is this a current diagnosis for this admission?: Yes Plan: SHe has completed antibiotics. - Time Time Spent with patient: 15-24 minutes
[2019-05-29] MEDS: MULTIVITAMIN TABLET PO SCH (09:13)
[2019-05-29] MEDS: NITROFURANTOIN MONOHYD/M-CRYST 100 MG CAPSULE PO SCH ×2 (09:14→21:45)
[2019-05-29] MEDS: GUAIFENESIN 600 MG TABLET.SA PO SCH ×2 (09:14→21:45)
[2019-05-29] MEDS: HYDROXYUREA 500 MG CAPSULE PO SCH ×3 (09:14→17:09)
[2019-05-29] MEDS: FOLIC ACID 1 MG TABLET PO SCH (09:14)
[2019-05-29] MEDS: OXYCODONE HCL SR 10 MG TABLET PO SCH ×2 (09:15→21:45)
[2019-05-29] MEDS: RIVAROXABAN 10 MG TABLET PO SCH (17:09)
--- NOTE | 2019-05-29 21:56 | PDOC PROGRESS REPORT ---
Subjective Progress Note for:: 05/29/19 Subjective:: Patient says she feels very tired no energy she is requesting banana drip Reason For Visit: SICKLE CELL CRISIS Physical Exam Vital Signs: Temp Pulse Resp BP Pulse Ox 98.9 F 79 16 104/58 L 99 05/29/19 16:43 05/29/19 16:43 05/29/19 16:43 05/29/19 16:43 05/29/19 16:43 Intake & Output 05/28/19 05/29/19 05/30/19 06:59 06:59 06:59 Intake Total 3310 5585 1622 Balance 3310 5585 1622 Weight 69.2 kg 70 kg General appearance: PRESENT: no acute distress Eye exam: PRESENT: PERRLA Respiratory exam: PRESENT: clear to auscultation carolyn Cardiovascular exam: PRESENT: +S1, +S2 GI/Abdominal exam: PRESENT: soft Neurological exam: PRESENT: alert Results Laboratory Results: 05/27/19 23:30 05/27/19 05:10 05/18/19 21:05 Troponin I < 0.012 Impressions: Body Scan Nuclear Medicine 05/23/19 00:00 IMPRESSION: Polyarthralgia similar compared to prior bone scans Chest X-Ray 05/24/19 00:00 IMPRESSION: No interval change in the chest with prominent bilateral interstitial markings. Subtle nodular density in the left base most likely represents confluence of shadows. Assessment & Plan - Diagnosis (1) Sickle cell anemia with pain Is this a current diagnosis for this admission?: Yes (2) E. coli UTI Is this a current diagnosis for this admission?: Yes - Time Time Spent with patient: 15-24 minutes
--- NOTE | 2019-05-29 21:57 | PDOC DISCHARGE SUMMARY ---
Impression - Admit/DC Date/PCP Admission Date/Primary Care Provider: 05/19/19 03:26 HOMA BARRAZA MD Discharge Date: 05/30/19 - Discharge Diagnosis (1) Sickle cell anemia with pain Is this a current diagnosis for this admission?: Yes (2) E. coli UTI Is this a current diagnosis for this admission?: Yes - Additional Information Resuscitation Status: Full Code Referrals: SAVANNA AWAN MD [ACTIVE STAFF] - 06/01/19 1:00 pm HOMA BARRAZA MD [Primary Care Provider] - 05/31/19 10:45 am Home Medications: RX: Epoetin Federico [Procrit Inj 40,000 Unit/1 ml Vial (Renal)] 60,000 unit SQ FR 11/20/18 RX: Folic Acid [Folvite 1 mg Tablet] 1 mg PO DAILY 11/20/18 RX: Gabapentin [Neurontin 300 mg Capsule] 300 mg PO Q8 11/20/18 RX: Hydroxyurea [Hydrea 500 mg Capsule] 500 mg PO TID 11/20/18 RX: Multivitamin [Multiple Vitamins] 1 tab PO DAILY 11/20/18 RX: Oxycodone HCl [Oxycodone HCl 10 MG Tablet] 10 mg PO Q6HP PRN 11/20/18 RX: Oxycodone HCl [Oxycontin] 30 mg PO Q12 11/20/18 RX: Promethazine HCl [Phenergan 25 mg Tablet] 25 mg PO Q6HP PRN 11/20/18 RX: Rivaroxaban [Xarelto] 20 mg PO QPM 11/20/18 RX: Deferasirox [Jadenu] 360 mg PO DAILY 05/19/19 RX: Ergocalciferol (Vitamin D2) [Vitamin D2] 50,000 unit PO WE@1000 05/19/19 History of Present Illiness History of Present Illness: WILLIE ALAN is a 49 year old female ,She was admitted into the hospital when she presented with vaso-occlusive bone pain crisis. Hospital Course Hospital Course: Patient was admitted for the management of vaso-occlusive bone pain crisis, anemia, E. coli UTI she was treated with IV antibiotic, IV fluid, pain medication with Dilaudid she was seen in consultation by drying frame operator/oncologist Dr.Maki, she required megadoses of Dilaudid she also received 1 unit of packed red blood cells, the hemoglobin was as low as 4. Physical Exam Vital Signs: Temp Pulse Resp BP Pulse Ox 98.9 F 79 16 104/58 L 99 05/29/19 16:43 05/29/19 16:43 05/29/19 16:43 05/29/19 16:43 05/29/19 16:43 Intake & Output 05/28/19 05/29/19 05/30/19 06:59 06:59 06:59 Intake Total 3310 5530 1622 Balance 3310 5572 1622 Weight 69.2 kg 70 kg General appearance: PRESENT: no acute distress Eye exam: PRESENT: PERRLA Respiratory exam: PRESENT: clear to auscultation carolyn Cardiovascular exam: PRESENT: +S1, +S2 GI/Abdominal exam: PRESENT: soft Neurological exam: PRESENT: alert Results Laboratory Results: WBC 4.3 10^3/uL (4.0-10.5) 05/27/19 23:30 RBC 1.57 10^6/uL (3.72-5.28) L 05/27/19 23:30 Hgb 6.5 g/dL (12.0-15.5) L 05/27/19 23:30 Hct 18.2 % (36.0-47.0) L 05/27/19 23:30 MCV 116 fl (80-97) H D 05/27/19 23:30 MCH 41.4 pg (27.0-33.4) H 05/27/19 23:30 MCHC 35.7 g/dL (32.0-36.0) 05/27/19 23:30 RDW 29.4 % (11.5-14.0) H 05/27/19 23:30 Plt Count 161 10^3/uL (150-450) 05/27/19 23:30 Lymph % (Auto) Not Reportable 05/27/19 23:30 [place] % (Auto) Not Reportable 05/27/19 23:30 Eos % (Auto) Not Reportable 05/27/19 23:30 Baso % (Auto) Not Reportable 05/27/19 23:30 Reticulocyte # 0.053 10^6/uL (0.028-0.122) 05/18/19 21:05 Absolute Neuts (auto) Not Reportable 05/27/19 23:30 Absolute Lymphs (auto) Not Reportable 05/27/19 23:30 Absolute Monos (auto) Not Reportable 05/27/19 23:30 Absolute Eos (auto) Not Reportable 05/27/19 23:30 Absolute Basos (auto) Not Reportable 05/27/19 23:30 Total Counted 100 05/27/19 23:30 Seg Neutrophils % Not Reportable 05/27/19 23:30 Seg Neuts % (Manual) 40 % (42-78) L 05/27/19 23:30 Lymphocytes % (Manual) 53 % (13-45) H 05/27/19 23:30 Monocytes % (Manual) 3 % (3-13) 05/27/19 23:30 Eosinophils % (Manual) 4 % (0-6) 05/27/19 23:30 Basophils % (Manual) 0 % (0-2) 05/27/19 23:30 Metamyelocytes % 1 % (0-1) 05/18/19 21:05 Abs Neuts (Manual) 1.7 10^3/uL (1.7-8.2) 05/27/19 23:30 Abs Lymphs (Manual) 2.3 10^3/uL (0.5-4.7) 05/27/19 23:30 Abs Monocytes (Manual) 0.1 10^3/uL (0.1-1.4) 05/27/19 23:30 Absolute Eos (Manual) 0.2 10^3/uL (0.0-0.6) 05/27/19 23:30 Abs Basophils (Manual) 0.0 10^3/uL (0.0-0.2) 05/27/19 23:30 Nucleated RBCs 68 /100 WBC (0) 05/27/19 23:30 Smudge Cells PRESENT 05/18/19 21:05 Toxic Granulation 1+ 05/27/19 05:10 Platelet Comment ADEQUATE 05/27/19 23:30 Polychromasia 2+ 05/27/19 23:30 Poikilocytosis 3+ 05/27/19 05:10 Anisocytosis 4+ 05/27/19 23:30 Macrocytosis 3+ 05/27/19 23:30 Pappenheimer Bodies PRESENT 05/20/19 06:00 Sickle Cells 1+ 05/27/19 23:30 Target Cells 1+ 05/27/19 23:30 Tear Drop Cells 1+ 05/27/19 05:10 Ovalocytes 2+ 05/27/19 05:10 [place] Bodies PRESENT 05/21/19 06:13 Acanthocytes (Spur) SLIGHT 05/18/19 21:05 Schistocytes 2+ 05/27/19 05:10 RBC Morph Comment 05/23/19 08:05 Retic Count (auto) 3.28 % (0.66-2.85) H 05/18/19 21:05 Sodium 138.2 mmol/L (137-145) 05/27/19 05:10 Potassium 4.3 mmol/L (3.6-5.0) 05/27/19 05:10 Chloride 105 mmol/L (98-107) 05/27/19 05:10 Carbon Dioxide 26 mmol/L (22-30) 05/27/19 05:10 Anion Gap 7 (5-19) 05/27/19 05:10 BUN 9 mg/dL (7-20) 05/27/19 05:10 Creatinine 0.51 mg/dL (0.52-1.25) L 05/27/19 05:10 Est GFR ( Amer) > 60 (>60) 05/27/19 05:10 Est GFR (MDRD) Non-Af > 60 (>60) 05/27/19 05:10 Glucose 98 mg/dL (75-110) 05/27/19 05:10 Calcium 8.5 mg/dL (8.4-10.2) 05/27/19 05:10 Total Bilirubin 2.7 mg/dL (0.2-1.3) H 05/27/19 05:10 Direct Bilirubin 0.3 mg/dL (0.0-0.4) 05/27/19 05:10 Neonat Total Bilirubin Not Reportable 05/27/19 05:10 Neonat Direct Bilirubin Not Reportable 05/27/19 05:10 Neonat Indirect Bili Not Reportable 05/27/19 05:10 AST 59 U/L (14-36) H 05/27/19 05:10 ALT 42 U/L (<35) 05/27/19 05:10 Alkaline Phosphatase 125 U/L (38-126) 05/27/19 05:10 Lactate Dehydrogenase 428 U/L (120-246) H 05/27/19 05:10 Troponin I < 0.012 ng/mL 05/18/19 21:05 Total Protein 6.3 g/dL (6.3-8.2) 05/27/19 05:10 Albumin 3.6 g/dL (3.5-5.0) 05/27/19 05:10 Urine Color YELLOW 05/19/19 00:59 Urine Appearance CLEAR 05/19/19 00:59 Urine pH 7.0 (5.0-9.0) 05/19/19 00:59 Ur Specific [place] 1.009 05/19/19 00:59 Urine Protein NEGATIVE mg/dL (NEGATIVE) 05/19/19 00:59 Urine Glucose (UA) NEGATIVE mg/dL (NEGATIVE) 05/19/19 00:59 Urine Ketones NEGATIVE mg/dL (NEGATIVE) 05/19/19 00:59 Urine Blood SMALL (NEGATIVE) H 05/19/19 00:59 Urine Nitrite NEGATIVE (NEGATIVE) 05/19/19 00:59 Urine Bilirubin NEGATIVE (NEGATIVE) 05/19/19 00:59 Urine Urobilinogen 2.0 mg/dL (<2.0) H 05/19/19 00:59 Ur Leukocyte Esterase NEGATIVE (NEGATIVE) 05/19/19 00:59 Urine WBC (Auto) 0 /HPF 05/19/19 00:59 Urine RBC (Auto) 1 /HPF 05/19/19 00:59 Squamous Epi Cells Auto <1 /HPF 05/19/19 00:59 Urine Mucus (Auto) RARE /LPF 05/19/19 00:59 Urine Ascorbic Acid NEGATIVE (NEGATIVE) 05/19/19 00:59 Blood Type O POSITIVE 05/27/19 14:20 Antibody Screen NEGATIVE 05/27/19 14:20 Crossmatch See Detail 05/27/19 14:20 05/18/19 21:05 Troponin I < 0.012 Impressions: Chest X-Ray 05/18/19 20:20 IMPRESSION: Nodular focus over the left lung base not clearly present on prior studies. Recommend correlation with CT of the chest No evidence of acute process Body Scan Nuclear Medicine 05/23/19 00:00 IMPRESSION: Polyarthralgia similar compared to prior bone scans Chest X-Ray 05/24/19 00:00 IMPRESSION: No interval change in the chest with prominent bilateral interstitial markings. Subtle nodular density in the left base most likely represents confluence of shadows. Stroke Is this a Stroke Patient?: No Acute Heart Failure - Is this a Heart Failure Patient?: No
[2019-05-29] MEDS ORDERED: NORMAL SALINE 1000 ML 1,000 ML with POTASSIUM CHLORIDE 20 MEQ, MAGNESIUM SULFATE 8 MEQ,... IV SCH ×5 (22:00)
[2019-05-30] MEDS: PROMETHAZINE HCL INJ 25 MG/1 ML VIAL IV PRN (03:57)
[2019-05-30] MEDS: HYDROMORPHONE HCL INJ/PF 2 MG/ML AMPULE IV PRN ×4 (03:58→14:01)
[2019-05-30] MEDS: GABAPENTIN 300 MG CAPSULE PO SCH ×2 (05:29→14:00)
[2019-05-30] MEDS: PANTOPRAZOLE SODIUM 40 MG TABLET.DR PO SCH (05:29)
[2019-05-30] MEDS: DIPHENHYDRAMINE HCL 50 MG/ML VIAL IV PRN ×2 (07:00→14:59)
--- NOTE | 2019-05-30 08:52 | PDOC PROGRESS REPORT ---
Subjective Progress Note for:: 05/30/19 Subjective:: Patient states that she is very afraid of dying at home, as she is still very weak. She wants to be able to go home, but does not feel safe. She requests repeat CBC today. Reason For Visit: SICKLE CELL CRISIS Physical Exam Vital Signs: Temp Pulse Resp BP Pulse Ox 98.9 F 78 16 107/61 97 05/29/19 23:34 05/30/19 02:00 05/29/19 23:34 05/29/19 23:34 05/29/19 23:34 Intake & Output 05/29/19 05/30/19 05/31/19 06:59 06:59 06:59 Intake Total 5585 2402 Balance 5585 2402 Weight 70 kg 69.2 kg Results Laboratory Results: 05/27/19 23:30 05/27/19 05:10 05/18/19 21:05 Troponin I < 0.012 Impressions: Body Scan Nuclear Medicine 05/23/19 00:00 IMPRESSION: Polyarthralgia similar compared to prior bone scans Chest X-Ray 05/24/19 00:00 IMPRESSION: No interval change in the chest with prominent bilateral interstitial markings. Subtle nodular density in the left base most likely represents confluence of shadows. Assessment & Plan - Diagnosis (1) Anemia, sickle cell with crisis Is this a current diagnosis for this admission?: Yes Plan: Pain is currently managed. I will continue to wean off Dilaudid IV. (2) Iron overload due to repeated red blood cell transfusions Is this a current diagnosis for this admission?: Yes Plan: She should be receiving Jadenu. (3) E. coli urinary tract infection Is this a current diagnosis for this admission?: Yes Plan: completed antibiotics. - Time Time Spent with patient: Less than 15 minutes
[2019-05-30] MEDS: GUAIFENESIN 600 MG TABLET.SA PO SCH (11:18)
[2019-05-30] MEDS: FOLIC ACID 1 MG TABLET PO SCH (11:18)
[2019-05-30] MEDS: OXYCODONE HCL SR 10 MG TABLET PO SCH (11:18)
[2019-05-30] MEDS: MULTIVITAMIN TABLET PO SCH (11:18)
[2019-05-30] MEDS: ERGOCALCIFEROL (VITAMIN D2) 50000 UNIT (1.25 MG) CAPSULE PO SCH (11:28)
[2019-05-30] MEDS: HYDROXYUREA 500 MG CAPSULE PO SCH ×2 (11:28→14:00)
[2019-05-30 13:13] VITALS: BP 104/71
== END 2019-05-30 16:30 | disposition home or self-care (01) | DRG 812 ==
LOC: ER 19:12 → EH 05-19 03:26 → 3N 05-19 05:51 → 5 05-24 02:45
PROVIDERS: ADMIT Family Medicine; ATTEND Internal Medicine
PROC: 30233N1 Transfusion of Nonautologous Red Blood Cells into Peripheral Vein, Percutaneous Approach (ICD-10-PCS; principal; 2019-05-27)
DX: D57.01 Hb-SS disease with acute chest syndrome (principal); N39.0 Urinary tract infection, site not specified; F41.9 Anxiety disorder, unspecified; B96.20 Unspecified Escherichia coli [E. coli] as the cause of diseases classified elsewhere; E83.111 Hemochromatosis due to repeated red blood cell transfusions; Z86.14 Personal history of Methicillin resistant Staphylococcus aureus infection
CPT/HCPCS: 36415; 36430; 71046; 78306; 80048; 80053; 81001; 83615; 84484; 85025; 85045; 86850; 86900; 86901; 86902; 86920; 87040; 87086; 87088; 87186; 93005; 93010; 96361; 96374; 96375; 96376; 99285; A9561; J0696; J1170; J1200; J1642; J2405; J2550; J3411; J3475; J3480; J3490; J7030; J8499; P9016; Q5106; Q9969

== ENCOUNTER 2019-06-22 18:32 | Inpatient (IN) | payer MEDICAID ==
[2019-06-22] MEDS ORDERED: HYDROMORPHONE HCL INJ/PF 2 MG/ML AMPULE IV ONE ×2 (19:54→23:45)
[2019-06-22] MEDS ORDERED: NORMAL SALINE 1000 ML 1,000 ML IV ONE (19:55)
--- NOTE | 2019-06-22 19:58 | ER Document Report ---
ED Medical Screen (RME) - General Chief Complaint: Pain All Over Stated Complaint: BODY PAIN Time Seen by Provider: 06/22/19 19:48 Primary Care Provider: HOMA BARRAZA MD [Primary Care Provider] - Follow up as needed Notes: Patient is a 49-year-old female with a history of sickle cell disease who presents the emergency department with a sickle cell crisis. Patient states that her arms and legs hurt. Her symptoms started 2 days ago. She normally takes she has been taking her pain medication as prescribed. She has not had relief of her pain. She also states that she has mild left lower chest pain. Exam: S1, S2. Clear lung sounds. I have greeted and performed a rapid initial assessment of this patient. A comprehensive ED assessment and evaluation of the patient, analysis of test results and completion of medical decision making process will be conducted by an additional ED providers. TRAVEL OUTSIDE OF THE [place] IN LAST 30 DAYS: No - Related Data Allergies/Adverse Reactions: doxycycline [Doxycycline] Allergy (Severe, Verified 06/22/19 19:46) Past Medical History - Past Medical History Cardiac Medical History: Reports: Hx Heart Murmur Denies: Hx Atrial Fibrillation, Hx Congestive Heart Failure, Hx Coronary Artery Disease, Hx Heart Attack, Hx Hypercholesterolemia, Hx Hypertension, Hx Peripheral Vascular Disease Pulmonary Medical History: Denies: Hx Tuberculosis Neurological Medical History: Denies: Hx Seizures Renal/ Medical History: Reports: Hx Ovarian Cysts. 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 Denies: Hx HIV Past Surgical History: Reports: Hx Appendectomy, Hx Section, Hx Cholecystectomy, Hx Orthopedic Surgery - R knee, Hx Tonsillectomy. Denies: Hx Bowel Surgery, Hx Coronary Artery Bypass Graft, Hx Gastric Bypass Surgery, Hx Herniorrhaphy, Hx Mastectomy, Hx Pacemaker, Hx Tubal Ligation - Immunizations Immunizations up to date: Yes Hx Diphtheria, Pertussis, Tetanus Vaccination: Yes Physical Exam - Vital signs Vitals: Temp Pulse Resp BP Pulse Ox 99.6 F 84 16 96/60 L 97 06/22/19 19:17 06/22/19 19:17 06/22/19 19:17 06/22/19 19:17 06/22/19 19:17 Course - Vital Signs Vital signs: Temp Pulse Resp BP Pulse Ox 99.6 F 84 16 96/60 L 97 06/22/19 19:17 06/22/19 19:17 06/22/19 19:17 06/22/19 19:17 06/22/19 19:17 Doctor's Discharge - Discharge Referrals: HOMA BARRAZA MD [Primary Care Provider] - Follow up as needed
--- NOTE | 2019-06-22 21:01 | RADIOLOGY REPORT (SQ) ---
EXAM DESCRIPTION: XR CHEST 2 VIEWS COMPLETED DATE/TME: 06/22/2019 19:55 CLINICAL HISTORY: 49 years, Female, sickle cell pain COMPARISON: Prior study from 05/24/2019 NUMBER OF VIEWS: Two TECHNIQUE: Frontal and lateral radiographs were obtained LIMITATIONS: None. FINDINGS: Left IJ approach central venous port catheter tip is located within the SVC. Cardiac and mediastinal contours are stable. Patchy left basilar opacity is evident. Lungs are otherwise clear. No pleural effusion or pneumothorax. IMPRESSION: Patchy left basilar opacity. Consider atelectasis or pneumonia to include aspiration. copyright 2010 [employer]- All Rights Reserved
[2019-06-23 00:21] LABS: HEMATOCRIT 22.3 % (36.0-47.0); MEAN CORPUSCULAR HEMOGLOBIN 43.8 pg (27.0-33.4); MEAN CORPUSCULAR HGB CONC 35.4 g/dL (32.0-36.0); PLATELET COUNT 209 10^3/uL (150-450); RED CELL DISTRIBUTION WIDTH 25.8 % (11.5-14.0); WHITE BLOOD COUNT 4.4 10^3/uL (4.0-10.5)
[2019-06-23 00:27] LABS: MEAN CORPUSCULAR VOLUME 124 fl (80-97)
[2019-06-23 00:28] LABS: HEMOGLOBIN 7.9 g/dL (12.0-15.5)
[2019-06-23 00:34] LABS: ALBUMIN 4.6 g/dL (3.5-5.0); ALKALINE PHOSPHATASE 139 U/L (38-126); ANION GAP 14 (5-19); ASPARTATE AMINO TRANSFERASE 60 U/L (14-36); BILIRUBIN,DIRECT 0.4 mg/dL (0.0-0.4); BILIRUBIN,TOTAL 3.9 mg/dL (0.2-1.3); BLOOD UREA NITROGEN 10 mg/dL (7-20); CALCIUM 9.3 mg/dL (8.4-10.2); CARBON DIOXIDE 22 mmol/L (22-30); CHLORIDE 103 mmol/L (98-107); CREATINE KINASE 28 U/L (30-135); GLUCOSE 197 mg/dL (75-110); POTASSIUM 3.6 mmol/L (3.6-5.0); TOTAL PROTEIN 7.9 g/dL (6.3-8.2)
[2019-06-23] MEDS ORDERED: CEFTRIAXONE 1 GM/D5W RTU 50 ML IV ONE (00:36)
[2019-06-23] MEDS ORDERED: CEFTRIAXONE INJ 1000 MG VIAL IV ONE (00:42)
[2019-06-23 00:43] LABS: ABSOLUTE LYMPHOCYTES# (MANUAL) 2.1 10^3/uL (0.5-4.7); ABSOLUTE MONOCYTES # (MANUAL) 0.1 10^3/uL (0.1-1.4); BASOPHILS % (MANUAL) 1 % (0-2); EOSINOPHILS % (MANUAL) 0 % (0-6); LYMPHOCYTES % (MANUAL) 47 % (13-45); MONOCYTES % (MANUAL) 3 % (3-13); NUCLEATED RED BLOOD CELLS 4 /100 WBC (0); SEGMENTED NEUTROPHILS % (MAN) 49 % (42-78); TOTAL CELLS COUNTED 100
--- NOTE | 2019-06-23 00:43 | ER Document Report ---
ED General - General Chief Complaint: Pain All Over Stated Complaint: BODY PAIN Time Seen by Provider: 06/22/19 19:48 Primary Care Provider: HOMA BARRAZA MD [Primary Care Provider] - Follow up as needed TRAVEL OUTSIDE OF THE [place] IN LAST 30 DAYS: No - HPI Notes: Ms. Hobson is a 49-year-old female with a history of sickle cell disease followed by Dr. Barraza and Dr. Ramirez now presenting with generalized pain typical of her usual sickle cell crisis. She is taking Percocet at home but reports this is not been helpful for pain today. She also has had a slight cough and has had some mild pleuritic discomfort at left lateral lung base. She denies dyspnea, fever, chills, or hemoptysis. No vomiting. No diarrhea. - Related Data Allergies/Adverse Reactions: doxycycline [Doxycycline] Allergy (Severe, Verified 06/22/19 19:46) Past Medical History - General Information source: Patient - Social History Smoking Status: Never Smoker Family History: Reviewed & Not Pertinent Patient has suicidal ideation: No Patient has homicidal ideation: No - Past Medical History Cardiac Medical History: Reports: Hx Heart Murmur Denies: Hx Atrial Fibrillation, Hx Congestive Heart Failure, Hx Coronary Artery Disease, Hx Heart Attack, Hx Hypercholesterolemia, Hx Hypertension, Hx Peripheral Vascular Disease Pulmonary Medical History: Denies: Hx Tuberculosis Neurological Medical History: Denies: Hx Seizures Renal/ Medical History: Reports: Hx Ovarian Cysts. 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 Denies: Hx HIV Past Surgical History: Reports: Hx Appendectomy, Hx Section, Hx Cholecystectomy, Hx Orthopedic Surgery - R knee, Hx Tonsillectomy. Denies: Hx Bowel Surgery, Hx Coronary Artery Bypass Graft, Hx Gastric Bypass Surgery, Hx Herniorrhaphy, Hx Mastectomy, Hx Pacemaker, Hx Tubal Ligation - Immunizations Immunizations up to date: Yes Hx Diphtheria, Pertussis, Tetanus Vaccination: Yes Hx Pneumococcal Vaccination: 03/20/14 Review of Systems - Review of Systems Notes: Constitutional: Negative for fever. HENT: Negative for sore throat. Eyes: Negative for visual changes. Cardiovascular: Negative for chest pain. Respiratory: As per HPI. Gastrointestinal: Negative for abdominal pain, vomiting or diarrhea. Genitourinary: Negative for dysuria. Musculoskeletal: As per HPI. Skin: Negative for rash. Neurological: Negative for headaches, weakness or numbness. 10 point ROS negative except as marked above and in HPI. Physical Exam - Vital signs Vitals: Temp Pulse Resp BP Pulse Ox 99.6 F 84 16 96/60 L 97 06/22/19 19:17 06/22/19 19:17 06/22/19 19:17 06/22/19 19:17 06/22/19 19:17 - Notes Notes: GENERAL: Well-developed well-nourished appearing in moderate discomfort. SKIN: Good turgor no rashes. HEAD: Normocephalic atraumatic. EYES: PERRLA. EOMI. scleral icterus present. EARS: CANALS AND TMS CLEAR. NOSE: CLEAR. MOUTH: Moist mucosa. Good dentition. No stridor or edema. No drooling. NECK: Supple. No masses or thyromegaly. No adenopathy. Carotids 2+ without bruits. No JVD. BACK: Symmetrical with diffuse tenderness. CHEST: Port-A-Cath present left anterior chest wall. Respirations unlabored. Breath sounds clear and symmetrical. HEART: Regular rhythm. No murmur gallop or rub. ABDOMEN: Soft nontender without masses, organomegaly or rebound. Bowel sounds normally active. No bruits. GENITALIA: Deferred. EXTREMITIES: No edema. No calf tenderness. Cap refill less than 1.5 seconds. Dorsalis pedis and posterior tibial pulses 3+ and symmetrical. NEUROLOGICAL: GCS 15. Alert and oriented x3. Normal gait. Fluent speech. Cranial nerves II through XII intact. Sensorimotor and cerebellar normal. Normal tone. PSYCHIATRIC: Appropriate affect. Course - Re-evaluation Re-evalutation: 06/23/19 03:30 Patient received IV Dilaudid and IV Rocephin. Multiple doses of pain medicine have not adequately controlled her discomfort. Findings discussed with Dr. Nicky busby on-call for Dr. Barraza and he has accepted patient for telemetry admission. - Vital Signs Vital signs: Temp Pulse Resp BP Pulse Ox 99.6 F 84 16 96/60 L 97 06/22/19 19:17 06/22/19 19:17 06/22/19 19:17 06/22/19 19:17 06/22/19 19:17 - Laboratory Result Diagrams: 06/23/19 00:05 06/23/19 00:05 Laboratory results interpreted by me: 06/23/19 06/23/19 06/23/19 00:05 00:05 00:05 RBC 1.80 L Hgb 7.9 L Hct 22.3 L MCV 124 H D MCH 43.8 H RDW 25.8 H Lymphocytes % (Manual) 47 H Glucose 197 H Total Bilirubin 3.9 H AST 60 H Alkaline Phosphatase 139 H Lactate Dehydrogenase 379 H Creatine Kinase 28 L - Diagnostic Test Radiology reviewed: Reports reviewed Radiology results interpreted by me: 06/23/19 03:29 Patchy infiltrate left lower lobe Discharge - Discharge Clinical Impression: Vaso-occlusive sickle cell crisis Left lower lobe pneumonia Qualifiers: Pneumonia type: due to unspecified organism Qualified Code(s): J18.9 - Pneumonia, unspecified organism Condition: Good Disposition: ADMITTED INPATIENT Admitting Provider: [facility] Unit Admitted: Telemetry Referrals: HOMA BARRAZA MD [Primary Care Provider] - Follow up as needed
[2019-06-23 00:46] LABS: ANISOCYTOSIS 3+; BURR CELLS 1+; OVALOCYTES 2+; PLATELET COMMENT ADEQUATE; POIKILOCYTOSIS 3+; SCHISTOCYTES 2+; SICKLE RED CELLS 1+; TARGET CELLS 1+; TOXIC GRANULATION 1+
[2019-06-23 00:52] LABS: ABSOLUTE RETICS # 0.042 10^6/uL (0.028-0.122); RETICULOCYTE COUNT (AUTO) 2.34 % (0.66-2.85)
[2019-06-23] MEDS ORDERED: HYDROMORPHONE HCL INJ/PF 2 MG/ML AMPULE IV PRN (00:52)
[2019-06-23] MEDS ORDERED: DIPHENHYDRAMINE HCL 50 MG/ML VIAL IV ONE (00:52)
[2019-06-23] MEDS ORDERED: ACETAMINOPHEN 325 MG TABLET PO PRN (03:51)
[2019-06-23] MEDS ORDERED: IPRATROPIUM/ALBUTEROL 0.5-2.5 MG/3 ML AMPUL NEB PRN ×2 (03:51→12:30)
[2019-06-23] MEDS: HYDROMORPHONE HCL INJ/PF 2 MG/ML AMPULE IV PRN ×9 (04:43→23:23)
[2019-06-23] MEDS: NORMAL SALINE 1000 ML 1,000 ML IV PRN ×2 (07:46→21:17)
--- NOTE | 2019-06-23 08:21 | EKG REPORT ---
SEVERITY:- NORMAL ECG - SINUS RHYTHM : Confirmed by: Killian Moraes MD 23-Jun-2019 08:20:33
[2019-06-23] MEDS: DIPHENHYDRAMINE HCL 50 MG/ML VIAL IV PRN ×2 (10:03→15:58)
[2019-06-23 10:49] LABS: ANION GAP 7 (5-19); BLOOD UREA NITROGEN 11 mg/dL (7-20); CALCIUM 8.8 mg/dL (8.4-10.2); CARBON DIOXIDE 24 mmol/L (22-30); CHLORIDE 107 mmol/L (98-107); GLUCOSE 105 mg/dL (75-110)
[2019-06-23 11:05] LABS: POTASSIUM 5.6 mmol/L (3.6-5.0)
[2019-06-23] MEDS ORDERED: HYDROMORPHONE HCL INJ/PF 2 MG/ML AMPULE IV ONE (11:47)
[2019-06-23] MEDS ORDERED: PROMETHAZINE HCL INJ 25 MG/1 ML VIAL IV PRN ×2 (12:13→15:12)
[2019-06-23] MEDS ORDERED: OXYCODONE HCL IR 5 MG TABLET PO PRN (12:17)
--- NOTE | 2019-06-23 12:27 | PDOC CONSULTATION ---
Consultation Consult Date: 06/23/19 Attending physician:: ESDRAS HUTCHISON Provider Consulted: BLAZE CARTAGENA Consult reason:: Patient with known sickle cell disease here with crisis History of Present Illness Admission Date/PCP: 06/23/19 04:40 HOMA BARRAZA MD Patient complains of: Pain crisis History of Present Illness: WILLIE ALAN is a 49 year old female with known longstanding history of sickle cell disease with repeated crisis, is in with severe pain crisis, having pain in her usual areas, weakness, dehydration, poor p.o. intake. Hemoglobin is been in the 7 range so far, on previous admission had fallen to the 4 range and she required a transfusion, but thus far we have been very conservative with transfusions for her. She is currently on Dilaudid 2 mg IV but still having a lot of pain, nausea and we made changes to her pain regimen. 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 Denies: HIV Past Surgical History Past Surgical History: Reports: Appendectomy, Section, Cholecystectomy, Orthopedic Surgery - R knee, Tonsillectomy Denies: Amputation, Coronary Artery Bypass Graft, Gastric Bypass Surgery, Herniorrhaphy, Mastectomy, Pacemaker, Tubal Ligation Social History Information Source: Patient Smoking Status: Never Smoker Frequency of Alcohol Use: None Hx Recreational Drug Use: No Drugs: None Hx Prescription Drug Abuse: No - Advance Directive Resuscitation Status: Full Code Family History Family History: Reviewed & Not Pertinent Parental Family History Reviewed: Yes Children Family History Reviewed: Yes Sibling(s) Family History Reviewed.: Yes Medication/Allergy Home Medications: Epoetin Federico [Procrit Inj 40,000 Unit/1 ml Vial (Renal)] 60,000 unit SQ FR 11/20/18 Folic Acid [Folvite 1 mg Tablet] 1 mg PO DAILY 11/20/18 Gabapentin [Neurontin 300 mg Capsule] 300 mg PO BID 11/20/18 Hydroxyurea [Hydrea 500 mg Capsule] 500 mg PO TID 11/20/18 Multivitamin [Multiple Vitamins] 1 tab PO DAILY 11/20/18 Oxycodone HCl [Oxycodone HCl 10 MG Tablet] 10 mg PO Q6HP PRN 11/20/18 Oxycodone HCl [Oxycontin] 30 mg PO Q12 11/20/18 Promethazine HCl [Phenergan 25 mg Tablet] 25 mg PO Q6HP PRN 11/20/18 Deferasirox [Jadenu] 360 mg PO DAILY 05/19/19 Ergocalciferol (Vitamin D2) [Vitamin D2] 50,000 unit PO WE@1000 05/19/19 Allergies/Adverse Reactions: doxycycline [Doxycycline] Allergy (Severe, Verified 06/22/19 19:46) Review of Systems Constitutional: ABSENT: chills, fever(s), headache(s), weight gain, weight loss Eyes: ABSENT: visual disturbances Ears: ABSENT: hearing changes Cardiovascular: ABSENT: chest pain, dyspnea on exertion, edema, orthropnea, palpitations Respiratory: ABSENT: cough, hemoptysis Gastrointestinal: ABSENT: abdominal pain, constipation, diarrhea, hematemesis, hematochezia, nausea, vomiting Genitourinary: ABSENT: dysuria, hematuria Musculoskeletal: ABSENT: joint swelling Integumentary: ABSENT: rash, wounds Neurological: ABSENT: abnormal gait, abnormal speech, confusion, dizziness, focal weakness, syncope Psychiatric: ABSENT: anxiety, depression, homidical ideation, suicidal ideation Endocrine: ABSENT: cold intolerance, heat intolerance, polydipsia, polyuria Hematologic/Lymphatic: ABSENT: easy bleeding, easy bruising Physical Exam Vital Signs: Temp Pulse Resp BP Pulse Ox 98.8 F 84 16 105/74 97 06/23/19 07:57 06/22/19 19:17 06/23/19 07:57 06/23/19 11:36 06/23/19 11:36 Intake & Output 06/22/19 06/23/19 06/24/19 06:59 06:59 06:59 Intake Total 1000 Balance 1000 Weight 63.63 kg General appearance: PRESENT: no acute distress, well-developed, well-nourished Head exam: PRESENT: atraumatic, normocephalic Eye exam: PRESENT: conjunctiva pink, EOMI, PERRLA. ABSENT: scleral icterus Ear exam: PRESENT: normal external ear exam Mouth exam: PRESENT: moist, tongue midline Neck exam: ABSENT: carotid bruit, JVD, lymphadenopathy, thyromegaly Respiratory exam: PRESENT: clear to auscultation carolyn. ABSENT: rales, rhonchi, wheezes Cardiovascular exam: PRESENT: RRR. ABSENT: diastolic murmur, rubs, systolic murmur Pulses: PRESENT: normal dorsalis pedis pul Vascular exam: PRESENT: normal capillary refill GI/Abdominal exam: PRESENT: normal bowel sounds, soft. ABSENT: distended, g uarding, mass, organolmegaly, rebound, tenderness Rectal exam: PRESENT: deferred Extremities exam: PRESENT: full ROM. ABSENT: calf tenderness, clubbing, pedal edema Neurological exam: PRESENT: alert, awake, oriented to person, oriented to place, oriented to time, oriented to situation, CN II-XII grossly intact. ABSENT: mo tor sensory deficit Psychiatric exam: PRESENT: appropriate affect, normal mood. ABSENT: homicidal ideation, suicidal ideation Skin exam: PRESENT: dry, intact, warm. ABSENT: cyanosis, rash Results Laboratory Results: 06/23/19 00:05 06/23/19 10:04 06/23/19 06/23/19 06/23/19 00:05 00:05 00:05 WBC 4.4 RBC 1.80 L Hgb 7.9 L Hct 22.3 L MCV 124 H D MCH 43.8 H MCHC 35.4 RDW 25.8 H Plt Count 209 Seg Neutrophils % Not Reportable Retic Count (auto) 2.34 Sodium 138.5 Potassium 3.6 Chloride 103 Carbon Dioxide 22 Anion Gap 14 BUN 10 Creatinine 0.74 Est GFR ( Amer) > 60 Est GFR (Non-Af Amer) Glucose 197 H Calcium 9.3 Total Bilirubin 3.9 H AST 60 H Alkaline Phosphatase 139 H Total Protein 7.9 Albumin 4.6 06/23/19 06/23/19 07:36 10:04 WBC RBC Hgb Hct MCV MCH MCHC RDW Plt Count Seg Neutrophils % Retic Count (auto) Sodium Cancelled 138.1 Potassium Cancelled 5.6 H D Chloride Cancelled 107 Carbon Dioxide Cancelled 24 Anion Gap Cancelled 7 BUN Cancelled 11 Creatinine Cancelled 0.60 Est GFR ( Amer) Cancelled > 60 Est GFR (Non-Af Amer) Cancelled Glucose Cancelled 105 Calcium Cancelled 8.8 Total Bilirubin AST Alkaline Phosphatase Total Protein Albumin 06/23/19 06/23/19 00:05 00:05 Creatine Kinase 28 L Troponin I < 0.012 Impressions: Chest X-Ray 06/22/19 19:55 IMPRESSION: Patchy left basilar opacity. Consider atelectasis or pneumonia to include aspiration. copyright 2010 [employer]- All Rights Reserved Assessment & Plan - Diagnosis (1) Vaso-occlusive sickle cell crisis Is this a current diagnosis for this admission?: Yes Plan: Sickle cell pain crisis, increase Dilaudid to 4 mg every 2 hours as needed, K pad for comfort, Phenergan 25 mg IV every 6 as needed nausea, continue Benadryl. She has known venous ulcerations on her lower extremities so she is used bacitracin ointment with improvement in the past. We will start that. O2 2 L. 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 - Time Time Spent: Greater than 70 Minutes
--- NOTE | 2019-06-23 12:29 | PDOC H&P ---
History of Present Illness Admission Date/PCP: 06/23/19 04:40 HOMA BARRAZA MD Patient complains of: Pain all over History of Present Illness: WILLIE ALAN is a 49 year old female 49-year-old female's with a significant history of the sickle cell disease multiple crisis history of the hypertensions history of the DVT currently see hematology Dr. Viveros with the chronic pain syndromes came to the emergency department with a complaining of pain all over and the patient is taking the p.o. pain medications does not work As usual patient is required to be a very often hospitalizations required IV Dilaudid which I think patient is addicted with that medications When I saw the patient as usual patient is complaining of pain all over Patient's chest x-ray some questionable infiltrate patient is complaining some mild cough Patient's denied any fever no chills 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 Denies: HIV Past Surgical History Past Surgical History: Reports: Appendectomy, Section, Cholecystectomy, Orthopedic Surgery - R knee, Tonsillectomy Denies: Amputation, Coronary Artery Bypass Graft, Gastric Bypass Surgery, Herniorrhaphy, Mastectomy, Pacemaker, Tubal Ligation Social History Smoking Status: Never Smoker Frequency of Alcohol Use: None Hx Recreational Drug Use: No Drugs: None Hx Prescription Drug Abuse: No Family History Family History: Reviewed & Not Pertinent Parental Family History Reviewed: Yes Children Family History Reviewed: Yes Sibling(s) Family History Reviewed.: Yes Medication/Allergy Home Medications: Epoetin Federico [Procrit Inj 40,000 Unit/1 ml Vial (Renal)] 60,000 unit SQ FR 11/20/18 Folic Acid [Folvite 1 mg Tablet] 1 mg PO DAILY 11/20/18 Gabapentin [Neurontin 300 mg Capsule] 300 mg PO Q8 11/20/18 Hydroxyurea [Hydrea 500 mg Capsule] 500 mg PO TID 11/20/18 Multivitamin [Multiple Vitamins] 1 tab PO DAILY 11/20/18 Oxycodone HCl [Oxycodone HCl 10 MG Tablet] 10 mg PO Q6HP PRN 11/20/18 Oxycodone HCl [Oxycontin] 30 mg PO Q12 11/20/18 Promethazine HCl [Phenergan 25 mg Tablet] 25 mg PO Q6HP PRN 11/20/18 Deferasirox [Jadenu] 360 mg PO DAILY 05/19/19 Ergocalciferol (Vitamin D2) [Vitamin D2] 50,000 unit PO WE@1000 05/19/19 Allergies/Adverse Reactions: doxycycline [Doxycycline] Allergy (Severe, Verified 06/22/19 19:46) Review of Systems Constitutional: PRESENT: weakness. ABSENT: chills, fever(s), headache(s), weight gain, weight loss Eyes: ABSENT: visual disturbances Ears: ABSENT: hearing changes Cardiovascular: PRESENT: chest pain. ABSENT: dyspnea on exertion, edema, orthropnea, palpitations Respiratory: PRESENT: cough. ABSENT: hemoptysis Gastrointestinal: ABSENT: abdominal pain, constipation, diarrhea, hematemesis, hematochezia, nausea, vomiting Genitourinary: ABSENT: dysuria, hematuria Musculoskeletal: PRESENT: back pain. ABSENT: joint swelling Integumentary: ABSENT: rash, wounds Neurological: ABSENT: abnormal gait, abnormal speech, confusion, dizziness, focal weakness, syncope Psychiatric: ABSENT: anxiety, depression, homidical ideation, suicidal ideation Endocrine: ABSENT: cold intolerance, heat intolerance, menstrual abnormalities, polydipsia, polyuria Hematologic/Lymphatic: ABSENT: easy bleeding, easy bruising, lymphadenopathy Physical Exam Vital Signs: Temp Pulse Resp BP Pulse Ox 98.8 F 84 16 105/74 97 06/23/19 07:57 06/22/19 19:17 06/23/19 07:57 06/23/19 11:36 06/23/19 11:36 Intake & Output 06/22/19 06/23/19 06/24/19 06:59 06:59 06:59 Intake Total 1000 Balance 1000 Weight 63.63 kg General appearance: PRESENT: no acute distress, well-developed, well-nourished Head exam: PRESENT: atraumatic, normocephalic Eye exam: PRESENT: conjunctiva pink, EOMI, PERRLA. ABSENT: scleral icterus Ear exam: PRESENT: normal external ear exam Mouth exam: PRESENT: moist, tongue midline Neck exam: PRESENT: full ROM. ABSENT: carotid bruit, JVD, lymphadenopathy, thyromegaly Respiratory exam: PRESENT: clear to auscultation carolyn Cardiovascular exam: PRESENT: RRR. ABSENT: diastolic murmur, rubs, systolic murmur Pulses: PRESENT: normal dorsalis pedis pul, +2 pedal pulses bilateral Vascular exam: PRESENT: normal capillary refill GI/Abdominal exam: PRESENT: normal bowel sounds, soft. ABSENT: distended, guarding, mass, organolmegaly, rebound, tenderness Rectal exam: PRESENT: deferred Neurological exam: PRESENT: alert, awake, oriented to person, oriented to place, oriented to time, oriented to situation, CN II-XII grossly intact. ABSENT: motor sensory deficit Psychiatric exam: PRESENT: appropriate affect, normal mood. ABSENT: homicidal ideation, suicidal ideation Skin exam: PRESENT: dry, intact, warm. ABSENT: cyanosis, rash Results Laboratory Results: 06/23/19 00:05 06/23/19 10:04 06/23/19 06/23/19 06/23/19 00:05 00:05 00:05 WBC 4.4 RBC 1.80 L Hgb 7.9 L Hct 22.3 L MCV 124 H D MCH 43.8 H MCHC 35.4 RDW 25.8 H Plt Count 209 Seg Neutrophils % Not Reportable Retic Count (auto) 2.34 Sodium 138.5 Potassium 3.6 Chloride 103 Carbon Dioxide 22 Anion Gap 14 BUN 10 Creatinine 0.74 Est GFR ( Amer) > 60 Est GFR (Non-Af Amer) Glucose 197 H Calcium 9.3 Total Bilirubin 3.9 H AST 60 H Alkaline Phosphatase 139 H Total Protein 7.9 Albumin 4.6 06/23/19 06/23/19 07:36 10:04 WBC RBC Hgb Hct MCV MCH MCHC RDW Plt Count Seg Neutrophils % Retic Count (auto) Sodium Cancelled 138.1 Potassium Cancelled 5.6 H D Chloride Cancelled 107 Carbon Dioxide Cancelled 24 Anion Gap Cancelled 7 BUN Cancelled 11 Creatinine Cancelled 0.60 Est GFR ( Amer) Cancelled > 60 Est GFR (Non-Af Amer) Cancelled Glucose Cancelled 105 Calcium Cancelled 8.8 Total Bilirubin AST Alkaline Phosphatase Total Protein Albumin 06/23/19 06/23/19 00:05 00:05 Creatine Kinase 28 L Troponin I < 0.012 Impressions: Chest X-Ray 06/22/19 19:55 IMPRESSION: Patchy left basilar opacity. Consider atelectasis or pneumonia to include aspiration. copyright 2010 [employer]- All Rights Reserved Assessment & Plan - Diagnosis (1) Vaso-occlusive sickle cell crisis Is this a current diagnosis for this admission?: Yes Plan: Start the patient on IV fluid IV pain medications Consult the hematology (2) Left lower lobe pneumonia Qualifiers: Pneumonia type: due to unspecified organism Qualified Code(s): J18.9 - Pneumonia, unspecified organism Is this a current diagnosis for this admission?: Yes Plan: Start the patient on IV Rocephin (3) Anemia Qualifiers: Is this a current diagnosis for this admission?: Yes (4) Chronic pain syndrome Is this a current diagnosis for this admission?: Yes Plan: Patient always have a chronic pain issue 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 - Time Time Spent: 30 to 50 Minutes Medications reviewed and adjusted accordingly: Yes Anticipated discharge: Home Within: Other - Inpatient Certification Based on my medical assessment, after consideration of the patient's comorbidities, presenting symptoms, or acuity I expect that the services needed warrant INPATIENT care.: Yes I certify that my determination is in accordance with my understanding of Medicare's requirements for reasonable and necessary INPATIENT services [42 CFR 412.3e].: Yes Medical Necessity: Significant Comorbidiites Make Outpatient Treatment Too Risky, Need For IV Fluids, Need for Pain Control, Need for IV Antibiotics 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
[2019-06-23] MEDS ORDERED: HYDROXYUREA 500 MG CAPSULE PO SCH (14:00)
[2019-06-23] MEDS: GABAPENTIN 300 MG CAPSULE PO SCH ×2 (14:18→21:18)
[2019-06-23] MEDS: HYDROXYUREA 500 MG CAPSULE PO SCH ×2 (15:13→21:18)
[2019-06-23] MEDS: BACITRACIN ZINC OINTMENT 15 GM TP SCH (17:37)
[2019-06-23] MEDS ORDERED: BACITRACIN ZINC OINTMENT 15 GM TP SCH (18:00)
[2019-06-23] MEDS: PROMETHAZINE HCL 25 MG TABLET PO PRN (20:36)
[2019-06-23] MEDS: OXYCODONE HCL SR 10 MG TABLET PO SCH (21:17)
[2019-06-23] MEDS: CEFTRIAXONE 1 GM/D5W RTU 1 GM/50 ML RTUPB IV SCH (21:18)
[2019-06-23] MEDS ORDERED: (PENDING PHARMACY ID) (Oxycodone Hcl [Oxycontin] 30 MG) PO SCH (22:00)
[2019-06-24] MEDS: HYDROMORPHONE HCL INJ/PF 2 MG/ML AMPULE IV PRN ×10 (00:25→23:17)
[2019-06-24] MEDS: DIPHENHYDRAMINE HCL 50 MG/ML VIAL IV PRN ×4 (00:26→23:16)
[2019-06-24] MEDS: PROMETHAZINE HCL 25 MG TABLET PO PRN ×2 (05:43→17:14)
[2019-06-24] MEDS: GABAPENTIN 300 MG CAPSULE PO SCH ×3 (05:43→21:41)
[2019-06-24] MEDS: HYDROXYUREA 500 MG CAPSULE PO SCH ×3 (05:44→21:40)
[2019-06-24] MEDS: NORMAL SALINE 1000 ML 1,000 ML IV PRN ×3 (05:49→21:40)
[2019-06-24 06:46] LABS: HEMATOCRIT 18.6 % (36.0-47.0); MEAN CORPUSCULAR HEMOGLOBIN 42.7 pg (27.0-33.4); MEAN CORPUSCULAR HGB CONC 34.8 g/dL (32.0-36.0); MEAN CORPUSCULAR VOLUME 123 fl (80-97); PLATELET COUNT 183 10^3/uL (150-450); RED BLOOD COUNT 1.52 10^6/uL (3.72-5.28); RED CELL DISTRIBUTION WIDTH 25.3 % (11.5-14.0); WHITE BLOOD COUNT 5.1 10^3/uL (4.0-10.5)
[2019-06-24 07:04] LABS: ANION GAP 10 (5-19); BLOOD UREA NITROGEN 10 mg/dL (7-20); CALCIUM 8.6 mg/dL (8.4-10.2); CARBON DIOXIDE 23 mmol/L (22-30); CHLORIDE 106 mmol/L (98-107); GLUCOSE 114 mg/dL (75-110); POTASSIUM 4.5 mmol/L (3.6-5.0)
[2019-06-24 07:35] LABS: ABSOLUTE LYMPHOCYTES# (MANUAL) 2.6 10^3/uL (0.5-4.7); BASOPHILS % (MANUAL) 1 % (0-2); EOSINOPHILS % (MANUAL) 1 % (0-6); LYMPHOCYTES % (MANUAL) 51 % (13-45); MONOCYTES % (MANUAL) 0 % (3-13); NUCLEATED RED BLOOD CELLS 2 /100 WBC (0); SEGMENTED NEUTROPHILS % (MAN) 47 % (42-78); TOTAL CELLS COUNTED 100
[2019-06-24 07:38] LABS: ANISOCYTOSIS 3+; HOWELL-JOLLY BODIES PRESENT; OVALOCYTES SLIGHT; PLATELET COMMENT ADEQUATE; POLYCHROMASIA SLIGHT; SCHISTOCYTES SLIGHT
[2019-06-24 07:39] LABS: HEMOGLOBIN 6.5 g/dL (12.0-15.5)
[2019-06-24] MEDS: OXYCODONE HCL SR 10 MG TABLET PO SCH ×2 (09:31→21:41)
[2019-06-24] MEDS: BACITRACIN ZINC OINTMENT 15 GM TP SCH ×2 (09:31→17:15)
[2019-06-24] MEDS: FOLIC ACID 1 MG TABLET PO SCH (09:31)
[2019-06-24] MEDS ORDERED: DEFERASIROX 360 MG PO SCH (10:00)
--- NOTE | 2019-06-24 11:09 | PDOC PROGRESS REPORT ---
Subjective Progress Note for:: 06/24/19 Subjective:: And is currently doing same Still have a some hand pain leg pain back pain Patient hemoglobin is 6.5 follow with hematology Reason For Visit: SICKLE CELL CRISIS Physical Exam Vital Signs: Temp Pulse Resp BP Pulse Ox 99.2 F 78 17 116/72 95 06/24/19 00:14 06/24/19 07:00 06/24/19 00:14 06/24/19 00:14 06/24/19 05:34 Intake & Output 06/23/19 06/24/19 06/25/19 06:59 06:59 06:59 Intake Total 1000 2938 Balance 1000 2938 Weight 63.63 kg 65.8 kg General appearance: PRESENT: no acute distress, well-developed, well-nourished Head exam: PRESENT: atraumatic, normocephalic Eye exam: PRESENT: conjunctiva pink, EOMI, PERRLA. ABSENT: scleral icterus Ear exam: PRESENT: normal external ear exam Mouth exam: PRESENT: moist, tongue midline Neck exam: PRESENT: full ROM. ABSENT: carotid bruit, JVD, lymphadenopathy, thyromegaly Respiratory exam: PRESENT: clear to auscultation carolyn Cardiovascular exam: PRESENT: RRR. ABSENT: diastolic murmur, rubs, systolic murmur Pulses: PRESENT: normal dorsalis pedis pul, +2 pedal pulses bilateral Vascular exam: PRESENT: normal capillary refill GI/Abdominal exam: PRESENT: normal bowel sounds, soft. ABSENT: distended, guarding, mass, organolmegaly, rebound, tenderness Rectal exam: PRESENT: deferred Neurological exam: PRESENT: alert, awake, oriented to person, oriented to place, oriented to time, oriented to situation, CN II-XII grossly intact. ABSENT: motor sensory deficit Psychiatric exam: PRESENT: appropriate affect, normal mood. ABSENT: homicidal ideation, suicidal ideation Skin exam: PRESENT: dry, intact, warm. ABSENT: cyanosis, rash Results Laboratory Results: 06/24/19 06:00 06/24/19 06:00 06/23/19 06/23/19 06/24/19 17:00 17:40 06:00 WBC 5.1 RBC 1.52 L Hgb 6.5 L Hct 18.6 L MCV 123 H MCH 42.7 H MCHC 34.8 RDW 25.3 H Plt Count 183 Seg Neutrophils % Not Reportable Sodium Potassium Cancelled 4.5 D Chloride Carbon Dioxide Anion Gap BUN Creatinine Est GFR ( Amer) Glucose Calcium 06/24/19 06:00 WBC RBC Hgb Hct MCV MCH MCHC RDW Plt Count Seg Neutrophils % Sodium 139.1 Potassium 4.5 Chloride 106 Carbon Dioxide 23 Anion Gap 10 BUN 10 Creatinine 0.65 Est GFR ( Amer) > 60 Glucose 114 H Calcium 8.6 06/23/19 06/23/19 00:05 00:05 Creatine Kinase 28 L Troponin I < 0.012 Impressions: Chest X-Ray 06/22/19 19:55 IMPRESSION: Patchy left basilar opacity. Consider atelectasis or pneumonia to include aspiration. 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
--- NOTE | 2019-06-24 11:15 | PDOC PROGRESS REPORT ---
Subjective Progress Note for:: 06/24/19 Subjective:: Patient still with considerable pain this morning Reason For Visit: SICKLE CELL CRISIS Physical Exam Vital Signs: Temp Pulse Resp BP Pulse Ox 98.9 F 72 18 103/49 L 98 06/24/19 08:29 06/24/19 08:29 06/24/19 08:29 06/24/19 08:29 06/24/19 08:29 Intake & Output 06/23/19 06/24/19 06/25/19 06:59 06:59 06:59 Intake Total 1000 2938 Balance 1000 2938 Weight 63.63 kg 65.8 kg General appearance: PRESENT: no acute distress, well-developed, well-nourished Head exam: PRESENT: atraumatic, normocephalic Eye exam: PRESENT: conjunctiva pink, EOMI, PERRLA. ABSENT: scleral icterus Ear exam: PRESENT: normal external ear exam Mouth exam: PRESENT: moist, tongue midline Neck exam: ABSENT: carotid bruit, JVD, lymphadenopathy, thyromegaly Respiratory exam: PRESENT: clear to auscultation carolyn. ABSENT: rales, rhonchi, wheezes Cardiovascular exam: PRESENT: RRR. ABSENT: diastolic murmur, rubs, systolic murmur Pulses: PRESENT: normal dorsalis pedis pul Vascular exam: PRESENT: normal capillary refill GI/Abdominal exam: PRESENT: normal bowel sounds, soft. ABSENT: distended, guarding, mass, organolmegaly, rebound, tenderness Rectal exam: PRESENT: deferred Extremities exam: PRESENT: full ROM. ABSENT: calf tenderness, clubbing, pedal edema Neurological exam: PRESENT: alert, awake, oriented to person, oriented to place, oriented to time, oriented to situation, CN II-XII grossly intact. ABSENT: motor sensory deficit Psychiatric exam: PRESENT: appropriate affect, normal mood. ABSENT: homicidal ideation, suicidal ideation Skin exam: PRESENT: dry, intact, warm. ABSENT: cyanosis, rash Results Laboratory Results: 06/24/19 06:00 06/24/19 06:00 06/23/19 06/23/19 06/24/19 17:00 17:40 06:00 WBC 5.1 RBC 1.52 L Hgb 6.5 L Hct 18.6 L MCV 123 H MCH 42.7 H MCHC 34.8 RDW 25.3 H Plt Count 183 Seg Neutrophils % Not Reportable Sodium Potassium Cancelled 4.5 D Chloride Carbon Dioxide Anion Gap BUN Creatinine Est GFR ( Amer) Glucose Calcium 06/24/19 06:00 WBC RBC Hgb Hct MCV MCH MCHC RDW Plt Count Seg Neutrophils % Sodium 139.1 Potassium 4.5 Chloride 106 Carbon Dioxide 23 Anion Gap 10 BUN 10 Creatinine 0.65 Est GFR ( Amer) > 60 Glucose 114 H Calcium 8.6 06/23/19 06/23/19 00:05 00:05 Creatine Kinase 28 L Troponin I < 0.012 Impressions: Chest X-Ray 06/22/19 19:55 IMPRESSION: Patchy left basilar opacity. Consider atelectasis or pneumonia to include aspiration. 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 - Time Time Spent with patient: 15-24 minutes
[2019-06-24] MEDS: CEFTRIAXONE 1 GM/D5W RTU 1 GM/50 ML RTUPB IV SCH (21:42)
[2019-06-25] MEDS: HYDROMORPHONE HCL INJ/PF 2 MG/ML AMPULE IV PRN ×10 (01:43→23:09)
[2019-06-25] MEDS: DIPHENHYDRAMINE HCL 50 MG/ML VIAL IV PRN ×3 (06:41→21:03)
[2019-06-25] MEDS: HYDROXYUREA 500 MG CAPSULE PO SCH ×3 (06:46→21:03)
[2019-06-25] MEDS: GABAPENTIN 300 MG CAPSULE PO SCH ×3 (06:47→21:03)
[2019-06-25] MEDS: FOLIC ACID 1 MG TABLET PO SCH (09:03)
[2019-06-25] MEDS: BACITRACIN ZINC OINTMENT 15 GM TP SCH ×2 (09:04→18:51)
[2019-06-25] MEDS: OXYCODONE HCL SR 10 MG TABLET PO SCH ×2 (09:04→21:03)
[2019-06-25] MEDS: NORMAL SALINE 1000 ML 1,000 ML IV PRN ×2 (09:12→18:53)
[2019-06-25] MEDS: CEFTRIAXONE 1 GM/D5W RTU 1 GM/50 ML RTUPB IV SCH (21:04)
--- NOTE | 2019-06-25 22:02 | PDOC PROGRESS REPORT ---
Subjective Progress Note for:: 06/25/19 Subjective:: Patient seen by the bedside, she was admitted for the management of vaso- occlusive sickle cell pain Reason For Visit: SICKLE CELL CRISIS Physical Exam Vital Signs: Temp Pulse Resp BP Pulse Ox 98.9 F 84 16 103/62 98 06/25/19 16:00 06/25/19 16:00 06/25/19 16:00 06/25/19 16:00 06/25/19 16:00 Intake & Output 06/24/19 06/25/19 06/26/19 06:59 06:59 06:59 Intake Total 2938 4528 1500 Output Total 5 Balance 2938 4528 1495 Weight 65.8 kg 67.9 kg General appearance: PRESENT: no acute distress Eye exam: PRESENT: PERRLA Respiratory exam: PRESENT: clear to auscultation carolyn Cardiovascular exam: PRESENT: +S1, +S2 GI/Abdominal exam: PRESENT: soft Neurological exam: PRESENT: alert Results Laboratory Results: 06/24/19 06:00 06/24/19 06:00 06/23/19 06/23/19 00:05 00:05 Creatine Kinase 28 L Troponin I < 0.012 Impressions: Chest X-Ray 06/22/19 19:55 IMPRESSION: Patchy left basilar opacity. Consider atelectasis or pneumonia to include aspiration. copyright 2011 [employer]- All Rights Reserved Assessment & Plan - Diagnosis (1) Vaso-occlusive sickle cell crisis Is this a current diagnosis for this admission?: Yes Plan: Continue treatment (2) Sickle cell anemia Is this a current diagnosis for this admission?: Yes - Time Time Spent with patient: 15-24 minutes
[2019-06-25 23:10] LABS: MEAN CORPUSCULAR HEMOGLOBIN 43.2 pg (27.0-33.4); MEAN CORPUSCULAR VOLUME 124 fl (80-97); PLATELET COUNT 198 10^3/uL (150-450); RED BLOOD COUNT 1.46 10^6/uL (3.72-5.28); RED CELL DISTRIBUTION WIDTH 25.3 % (11.5-14.0); WHITE BLOOD COUNT 4.6 10^3/uL (4.0-10.5)
[2019-06-25 23:18] LABS: HEMOGLOBIN 6.3 g/dL (12.0-15.5)
[2019-06-25 23:48] LABS: ABSOLUTE MONOCYTES # (MANUAL) 0.2 10^3/uL (0.1-1.4); BASOPHILS % (MANUAL) 1 % (0-2); EOSINOPHILS % (MANUAL) 8 % (0-6); LYMPHOCYTES % (MANUAL) 43 % (13-45); MONOCYTES % (MANUAL) 5 % (3-13); NUCLEATED RED BLOOD CELLS 2 /100 WBC (0); SEGMENTED NEUTROPHILS % (MAN) 43 % (42-78); TOTAL CELLS COUNTED 100
[2019-06-25 23:51] LABS: ANISOCYTOSIS 3+; HOWELL-JOLLY BODIES PRESENT; OVALOCYTES 2+; POIKILOCYTOSIS 3+; SCHISTOCYTES 2+; SICKLE RED CELLS 1+; TARGET CELLS 1+; TOXIC GRANULATION 1+
[2019-06-25 23:52] LABS: PLATELET COMMENT ADEQUATE
[2019-06-26] MEDS: HYDROMORPHONE HCL INJ/PF 2 MG/ML AMPULE IV PRN ×12 (01:07→23:57)
[2019-06-26] MEDS: DIPHENHYDRAMINE HCL 50 MG/ML VIAL IV PRN ×4 (03:13→21:42)
[2019-06-26] MEDS: GABAPENTIN 300 MG CAPSULE PO SCH ×3 (05:14→21:42)
[2019-06-26] MEDS: NORMAL SALINE 1000 ML 1,000 ML IV PRN ×3 (05:14→21:40)
[2019-06-26] MEDS: HYDROXYUREA 500 MG CAPSULE PO SCH ×2 (05:14→09:34)
[2019-06-26 06:37] LABS: HEMATOCRIT 17.7 % (36.0-47.0); MEAN CORPUSCULAR HEMOGLOBIN 43.4 pg (27.0-33.4); MEAN CORPUSCULAR HGB CONC 35.2 g/dL (32.0-36.0); MEAN CORPUSCULAR VOLUME 123 fl (80-97); PLATELET COUNT 199 10^3/uL (150-450); RED BLOOD COUNT 1.43 10^6/uL (3.72-5.28); RED CELL DISTRIBUTION WIDTH 24.9 % (11.5-14.0); WHITE BLOOD COUNT 4.8 10^3/uL (4.0-10.5)
[2019-06-26 06:57] LABS: ALKALINE PHOSPHATASE 149 U/L (38-126); ANION GAP 9 (5-19); ASPARTATE AMINO TRANSFERASE 48 U/L (14-36); BILIRUBIN,DIRECT 0.3 mg/dL (0.0-0.4); BILIRUBIN,TOTAL 2.1 mg/dL (0.2-1.3); BLOOD UREA NITROGEN 12 mg/dL (7-20); CALCIUM 8.2 mg/dL (8.4-10.2); CARBON DIOXIDE 25 mmol/L (22-30); CHLORIDE 105 mmol/L (98-107); GLUCOSE 110 mg/dL (75-110); POTASSIUM 4.3 mmol/L (3.6-5.0); TOTAL PROTEIN 6.4 g/dL (6.3-8.2)
[2019-06-26 07:31] LABS: HEMOGLOBIN 6.2 g/dL (12.0-15.5)
[2019-06-26 08:00] LABS: ABSOLUTE LYMPHOCYTES# (MANUAL) 1.7 10^3/uL (0.5-4.7); ABSOLUTE MONOCYTES # (MANUAL) 0.2 10^3/uL (0.1-1.4); BASOPHILS % (MANUAL) 0 % (0-2); EOSINOPHILS % (MANUAL) 7 % (0-6); LYMPHOCYTES % (MANUAL) 35 % (13-45); MONOCYTES % (MANUAL) 4 % (3-13); NUCLEATED RED BLOOD CELLS 9 /100 WBC (0); SEGMENTED NEUTROPHILS % (MAN) 54 % (42-78); TOTAL CELLS COUNTED 100
[2019-06-26 08:02] LABS: ANISOCYTOSIS 3+; HOWELL-JOLLY BODIES PRESENT; OVALOCYTES 1+; PAPPENHEIMER BODIES PRESENT; PLATELET COMMENT ADEQUATE; POIKILOCYTOSIS 2+; SICKLE RED CELLS 1+; TARGET CELLS SLIGHT
[2019-06-26] MEDS: BACITRACIN ZINC OINTMENT 15 GM TP SCH ×2 (09:32→17:35)
[2019-06-26] MEDS: OXYCODONE HCL SR 10 MG TABLET PO SCH ×2 (09:33→21:42)
[2019-06-26] MEDS: FOLIC ACID 1 MG TABLET PO SCH (09:34)
--- NOTE | 2019-06-26 13:14 | PDOC PROGRESS REPORT ---
Subjective Progress Note for:: 06/26/19 Subjective:: Patient was in the bathroom and I was only able to speak with her. I was not able to examine her. She states that pain is about the same as yesterday. Nurses report no new problems. She has requested Phenergan be changed to IV instead of PO. She continues with NS at 125/hr and O2 2L NC RTC. Reason For Visit: SICKLE CELL CRISIS Physical Exam Vital Signs: Temp Pulse Resp BP Pulse Ox 99.1 F 84 16 103/57 L 98 06/26/19 12:00 06/26/19 12:00 06/26/19 12:00 06/26/19 12:00 06/26/19 12:00 Intake & Output 06/25/19 06/26/19 06/27/19 06:59 06:59 06:59 Intake Total 4528 2550 Output Total 5 Balance 4528 2545 Weight 67.9 kg 67.5 kg Results Laboratory Results: 06/26/19 06:15 06/26/19 06:15 06/25/19 06/26/19 06/26/19 22:50 06:15 06:15 WBC 4.6 4.8 RBC 1.46 L 1.43 L Hgb 6.3 L 6.2 L Hct 18.0 L 17.7 L MCV 124 H 123 H MCH 43.2 H 43.4 H MCHC 35.0 35.2 RDW 25.3 H 24.9 H Plt Count 198 199 Seg Neutrophils % Not Reportable Not Reportable Sodium 138.5 Potassium 4.3 Chloride 105 Carbon Dioxide 25 Anion Gap 9 BUN 12 Creatinine 0.55 Est GFR ( Amer) > 60 Glucose 110 Calcium 8.2 L Total Bilirubin 2.1 H AST 48 H Alkaline Phosphatase 149 H Total Protein 6.4 Albumin 4.0 06/23/19 06/23/19 00:05 00:05 Creatine Kinase 28 L Troponin I < 0.012 Impressions: Chest X-Ray 06/22/19 19:55 IMPRESSION: Patchy left basilar opacity. Consider atelectasis or pneumonia to include aspiration. copyright 2010 [employer]- All Rights Reserved Assessment & Plan - Diagnosis (1) Vaso-occlusive sickle cell crisis Is this a current diagnosis for this admission?: Yes Plan: Continue Long-acting pain meds without changes. Continue Dilaudid IV without changes. Fluids, O2. (2) Anemia, sickle cell with crisis Is this a current diagnosis for this admission?: Yes Plan: HGB currently stable. I will check LDH and follow this as well. I will decrease Hydrea to daily for a few days to see if this helps her anemia. (3) Dehydration Is this a current diagnosis for this admission?: Yes Plan: Continue fluids, and all other treatments for now. - Time Time Spent with patient: Less than 15 minutes
--- NOTE | 2019-06-26 21:19 | PDOC PROGRESS REPORT ---
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, there is evidence of hemolysis, increased LDH increased bilirubin and anemia Reason For Visit: SICKLE CELL CRISIS Physical Exam Vital Signs: Temp Pulse Resp BP Pulse Ox 99.2 F 85 14 109/67 99 06/26/19 16:00 06/26/19 16:00 06/26/19 16:00 06/26/19 16:00 06/26/19 16:00 Intake & Output 06/25/19 06/26/19 06/27/19 06:59 06:59 06:59 Intake Total 4528 2550 1708 Output Total 5 Balance 4528 2545 1708 Weight 67.9 kg 67.5 kg General appearance: PRESENT: no acute distress Eye exam: PRESENT: PERRLA Respiratory exam: PRESENT: clear to auscultation carolyn Cardiovascular exam: PRESENT: +S1, +S2 GI/Abdominal exam: PRESENT: soft Neurological exam: PRESENT: alert Results Laboratory Results: 06/26/19 06:15 06/26/19 06:15 06/25/19 06/26/19 06/26/19 22:50 06:15 06:15 WBC 4.6 4.8 RBC 1.46 L 1.43 L Hgb 6.3 L 6.2 L Hct 18.0 L 17.7 L MCV 124 H 123 H MCH 43.2 H 43.4 H MCHC 35.0 35.2 RDW 25.3 H 24.9 H Plt Count 198 199 Seg Neutrophils % Not Reportable Not Reportable Sodium 138.5 Potassium 4.3 Chloride 105 Carbon Dioxide 25 Anion Gap 9 BUN 12 Creatinine 0.55 Est GFR ( Amer) > 60 Glucose 110 Calcium 8.2 L Total Bilirubin 2.1 H AST 48 H Alkaline Phosphatase 149 H Total Protein 6.4 Albumin 4.0 06/23/19 06/23/19 00:05 00:05 Creatine Kinase 28 L Troponin I < 0.012 Impressions: Chest X-Ray 06/22/19 19:55 IMPRESSION: Patchy left basilar opacity. Consider atelectasis or pneumonia to include aspiration. copyright 2010 [employer]- All Rights Reserved Assessment & Plan - Diagnosis (1) Vaso-occlusive sickle cell crisis Is this a current diagnosis for this admission?: Yes (2) Sickle cell anemia Is this a current diagnosis for this admission?: Yes (3) Hemolytic anemia Qualifiers: Hemolytic anemia type: other hemoglobinopathy Qualified Code(s): D58.2 - Other hemoglobinopathies Is this a current diagnosis for this admission?: Yes - Time Time Spent with patient: 15-24 minutes - Plan Summary Plan Summary: Continue IV hydration, analgesia
[2019-06-26] MEDS: CEFTRIAXONE 1 GM/D5W RTU 1 GM/50 ML RTUPB IV SCH (21:41)
[2019-06-27] MEDS: HYDROMORPHONE HCL INJ/PF 2 MG/ML AMPULE IV PRN ×10 (01:53→22:41)
[2019-06-27] MEDS: DIPHENHYDRAMINE HCL 50 MG/ML VIAL IV PRN ×3 (04:35→18:19)
[2019-06-27] MEDS: GABAPENTIN 300 MG CAPSULE PO SCH ×3 (06:18→21:50)
[2019-06-27] MEDS: NORMAL SALINE 1000 ML 1,000 ML IV PRN ×3 (06:18→21:55)
[2019-06-27] MEDS: OXYCODONE HCL SR 10 MG TABLET PO SCH ×2 (09:07→21:50)
[2019-06-27] MEDS: FOLIC ACID 1 MG TABLET PO SCH (09:07)
[2019-06-27] MEDS: HYDROXYUREA 500 MG CAPSULE PO SCH (09:07)
[2019-06-27] MEDS: BACITRACIN ZINC OINTMENT 15 GM TP SCH ×2 (09:07→17:29)
--- NOTE | 2019-06-27 18:27 | PDOC PROGRESS REPORT ---
Subjective Progress Note for:: 06/27/19 Subjective:: No new complaints Reason For Visit: SICKLE CELL CRISIS Physical Exam Vital Signs: Temp Pulse Resp BP Pulse Ox 99.2 F 82 20 105/67 100 06/27/19 16:10 06/27/19 16:10 06/27/19 16:10 06/27/19 16:10 06/27/19 16:10 Intake & Output 06/26/19 06/27/19 06/28/19 06:59 06:59 06:59 Intake Total 2550 4508 1550 Output Total 5 Balance 2545 4508 1550 Weight 67.5 kg General appearance: PRESENT: no acute distress Head exam: PRESENT: atraumatic, normocephalic Eye exam: PRESENT: PERRLA Mouth exam: PRESENT: moist, tongue midline Neck exam: PRESENT: full ROM Respiratory exam: PRESENT: clear to auscultation carolyn Cardiovascular exam: PRESENT: RRR, +S1, +S2 Pulses: PRESENT: normal dorsalis pedis pul, +2 pedal pulses bilateral Vascular exam: PRESENT: normal capillary refill GI/Abdominal exam: PRESENT: normal bowel sounds, soft Rectal exam: PRESENT: deferred Neurological exam: PRESENT: alert Psychiatric exam: PRESENT: appropriate affect, normal mood Skin exam: PRESENT: dry, intact, warm. ABSENT: cyanosis, rash Results Laboratory Results: 06/26/19 06:15 06/26/19 06:15 06/23/19 06/23/19 00:05 00:05 Creatine Kinase 28 L Troponin I < 0.012 Impressions: Chest X-Ray 06/22/19 19:55 IMPRESSION: Patchy left basilar opacity. Consider atelectasis or pneumonia to include aspiration. copyright 2010 [employer]- All Rights Reserved Assessment & Plan - Diagnosis (1) Vaso-occlusive sickle cell crisis Is this a current diagnosis for this admission?: Yes (2) Sickle cell anemia Is this a current diagnosis for this admission?: Yes (3) Hemolytic anemia Qualifiers: Hemolytic anemia type: other hemoglobinopathy Qualified Code(s): D58.2 - Other hemoglobinopathies Is this a current diagnosis for this admission?: Yes - Time Time Spent with patient: 15-24 minutes
[2019-06-27 20:22] LABS: HEMATOCRIT 17.6 % (36.0-47.0); MEAN CORPUSCULAR HEMOGLOBIN 42.9 pg (27.0-33.4); MEAN CORPUSCULAR HGB CONC 35.1 g/dL (32.0-36.0); MEAN CORPUSCULAR VOLUME 122 fl (80-97); PLATELET COUNT 203 10^3/uL (150-450); RED BLOOD COUNT 1.44 10^6/uL (3.72-5.28); RED CELL DISTRIBUTION WIDTH 25.4 % (11.5-14.0); WHITE BLOOD COUNT 5.2 10^3/uL (4.0-10.5)
[2019-06-27 20:29] LABS: HEMOGLOBIN 6.2 g/dL (12.0-15.5)
[2019-06-27 20:38] LABS: ALBUMIN 3.9 g/dL (3.5-5.0); ALKALINE PHOSPHATASE 150 U/L (38-126); ANION GAP 7 (5-19); ASPARTATE AMINO TRANSFERASE 63 U/L (14-36); BILIRUBIN,DIRECT 0.4 mg/dL (0.0-0.4); BILIRUBIN,TOTAL 2.3 mg/dL (0.2-1.3); BLOOD UREA NITROGEN 8 mg/dL (7-20); CALCIUM 8.6 mg/dL (8.4-10.2); CARBON DIOXIDE 26 mmol/L (22-30); CHLORIDE 105 mmol/L (98-107); GLUCOSE 112 mg/dL (75-110); POTASSIUM 4.2 mmol/L (3.6-5.0); TOTAL PROTEIN 6.7 g/dL (6.3-8.2)
[2019-06-27 21:02] LABS: ABSOLUTE LYMPHOCYTES# (MANUAL) 1.6 10^3/uL (0.5-4.7); ABSOLUTE MONOCYTES # (MANUAL) 0.1 10^3/uL (0.1-1.4); ANISOCYTOSIS 3+; BASOPHILS % (MANUAL) 1 % (0-2); EOSINOPHILS % (MANUAL) 7 % (0-6); HYPOCHROMASIA 1+; LYMPHOCYTES % (MANUAL) 31 % (13-45); MONOCYTES % (MANUAL) 1 % (3-13); NUCLEATED RED BLOOD CELLS 27 /100 WBC (0); POIKILOCYTOSIS SLIGHT; SEGMENTED NEUTROPHILS % (MAN) 60 % (42-78); SICKLE RED CELLS 1+; TOTAL CELLS COUNTED 100
[2019-06-27 21:03] LABS: PLATELET COMMENT ADEQUATE
[2019-06-27] MEDS: CEFTRIAXONE 1 GM/D5W RTU 1 GM/50 ML RTUPB IV SCH (21:51)
[2019-06-28] MEDS: HYDROMORPHONE HCL INJ/PF 2 MG/ML AMPULE IV PRN ×10 (00:58→22:32)
[2019-06-28] MEDS: DIPHENHYDRAMINE HCL 50 MG/ML VIAL IV PRN ×4 (00:59→20:32)
[2019-06-28] MEDS: NORMAL SALINE 1000 ML 1,000 ML IV PRN ×3 (06:10→22:30)
[2019-06-28] MEDS: GABAPENTIN 300 MG CAPSULE PO SCH ×3 (06:10→21:28)
[2019-06-28 06:33] LABS: MEAN CORPUSCULAR HEMOGLOBIN 43.3 pg (27.0-33.4); MEAN CORPUSCULAR HGB CONC 35.2 g/dL (32.0-36.0); MEAN CORPUSCULAR VOLUME 123 fl (80-97); PLATELET COUNT 193 10^3/uL (150-450); RED BLOOD COUNT 1.38 10^6/uL (3.72-5.28)
[2019-06-28 06:47] LABS: ALBUMIN 3.7 g/dL (3.5-5.0); ALKALINE PHOSPHATASE 152 U/L (38-126); ANION GAP 7 (5-19); ASPARTATE AMINO TRANSFERASE 59 U/L (14-36); BILIRUBIN,DIRECT 0.5 mg/dL (0.0-0.4); BLOOD UREA NITROGEN 7 mg/dL (7-20); CALCIUM 7.7 mg/dL (8.4-10.2); CARBON DIOXIDE 27 mmol/L (22-30); CHLORIDE 105 mmol/L (98-107); GLUCOSE 99 mg/dL (75-110); POTASSIUM 4.1 mmol/L (3.6-5.0)
[2019-06-28 07:11] LABS: ABSOLUTE LYMPHOCYTES# (MANUAL) 2.4 10^3/uL (0.5-4.7); ABSOLUTE MONOCYTES # (MANUAL) 0.3 10^3/uL (0.1-1.4); BASOPHILS % (MANUAL) 0 % (0-2); EOSINOPHILS % (MANUAL) 3 % (0-6); LYMPHOCYTES % (MANUAL) 48 % (13-45); MONOCYTES % (MANUAL) 5 % (3-13); NUCLEATED RED BLOOD CELLS 5 /100 WBC (0); SEGMENTED NEUTROPHILS % (MAN) 44 % (42-78); TOTAL CELLS COUNTED 100
[2019-06-28 07:12] LABS: ANISOCYTOSIS 3+; OVALOCYTES 1+; TEAR DROP CELLS SLIGHT
[2019-06-28 07:14] LABS: PLATELET COMMENT ADEQUATE; SICKLE RED CELLS SLIGHT; TARGET CELLS 1+
[2019-06-28] MEDS ORDERED: HYDROMORPHONE HCL INJ/PF 2 MG/ML AMPULE IV ONE (07:15)
[2019-06-28] MEDS: FOLIC ACID 1 MG TABLET PO SCH (10:07)
[2019-06-28] MEDS: HYDROXYUREA 500 MG CAPSULE PO SCH (10:07)
[2019-06-28] MEDS: OXYCODONE HCL SR 10 MG TABLET PO SCH ×2 (10:07→21:27)
[2019-06-28] MEDS: BACITRACIN ZINC OINTMENT 15 GM TP SCH ×2 (10:07→17:42)
--- NOTE | 2019-06-28 12:53 | PDOC PROGRESS REPORT ---
Subjective Progress Note for:: 06/28/19 Subjective:: Patient states that her pain is a bit worse this morning. Overall, she is trying to walk, eat, and drink. No new changes in her pain. ROS: No cardiac/anginal pain. No dyspnea. No constipation or diarrhea. Reason For Visit: SICKLE CELL CRISIS Physical Exam Vital Signs: Temp Pulse Resp BP Pulse Ox 99.1 F 81 18 113/62 99 06/28/19 08:03 06/28/19 08:03 06/28/19 08:03 06/28/19 08:03 06/28/19 08:03 Intake & Output 06/27/19 06/28/19 06/29/19 06:59 06:59 06:59 Intake Total 4508 4560 Balance 4508 4560 Weight 66.8 kg General appearance: PRESENT: no acute distress, well-developed, well-nourished Exam: 49 year old female in obvious pain. Head exam: PRESENT: normocephalic Respiratory exam: PRESENT: clear to auscultation carolyn, unlabored Cardiovascular exam: PRESENT: RRR GI/Abdominal exam: PRESENT: soft. ABSENT: tenderness Neurological exam: PRESENT: alert, awake Psychiatric exam: PRESENT: other - In obvious pain. Skin exam: PRESENT: normal color Results Laboratory Results: 06/28/19 06:00 06/28/19 06:00 06/27/19 06/27/19 06/28/19 19:25 19:25 06:00 WBC 5.2 5.0 RBC 1.44 L 1.38 L Hgb 6.2 L 6.0 L Hct 17.6 L 17.0 L MCV 122 H 123 H MCH 42.9 H 43.3 H MCHC 35.1 35.2 RDW 25.4 H 25.0 H Plt Count 203 193 Seg Neutrophils % Not Reportable Not Reportable Sodium 137.8 Potassium 4.2 Chloride 105 Carbon Dioxide 26 Anion Gap 7 BUN 8 Creatinine 0.51 L Est GFR ( Amer) > 60 Glucose 112 H Calcium 8.6 Total Bilirubin 2.3 H AST 63 H Alkaline Phosphatase 150 H Total Protein 6.7 Albumin 3.9 06/28/19 06:00 WBC RBC Hgb Hct MCV MCH MCHC RDW Plt Count Seg Neutrophils % Sodium 138.6 Potassium 4.1 Chloride 105 Carbon Dioxide 27 Anion Gap 7 BUN 7 Creatinine 0.54 Est GFR ( Amer) > 60 Glucose 99 Calcium 7.7 L Total Bilirubin 2.0 H AST 59 H Alkaline Phosphatase 152 H Total Protein 6.0 L Albumin 3.7 06/23/19 02:09 Blood Blood Culture - Final NO GROWTH IN 5 DAYS 06/23/19 00:50 Blood Blood Culture - Final NO GROWTH IN 5 DAYS 06/23/19 06/23/19 00:05 00:05 Creatine Kinase 28 L Troponin I < 0.012 Impressions: Chest X-Ray 06/22/19 19:55 IMPRESSION: Patchy left basilar opacity. Consider atelectasis or pneumonia to include aspiration. copyright 2010 [employer]- All Rights Reserved Assessment & Plan - Diagnosis (1) Vaso-occlusive sickle cell crisis Is this a current diagnosis for this admission?: Yes Plan: Continue current treatment. I will try to arrange new outpatient medication for her, once she is discharged. Continue Hydrea only daily for now. (2) Anemia, sickle cell with crisis Is this a current diagnosis for this admission?: Yes Plan: HGB currently stable. (3) Dehydration Is this a current diagnosis for this admission?: Yes (4) Iron overload due to repeated red blood cell transfusions Is this a current diagnosis for this admission?: Yes Plan: She has her Jadenu at bedside. She needs to continue taking this. I will again try to arrange this, although it has already been ordered. - Time Time Spent with patient: 15-24 minutes
[2019-06-28] MEDS ORDERED: OXYCODONE HCL IR 5 MG TABLET PO PRN (13:00)
--- NOTE | 2019-06-28 21:49 | PDOC PROGRESS REPORT ---
Subjective Progress Note for:: 06/28/19 Subjective:: Patient seen by the bedside, no new complaint Reason For Visit: SICKLE CELL CRISIS Physical Exam Vital Signs: Temp Pulse Resp BP Pulse Ox 98.9 F 83 18 112/72 100 06/28/19 20:46 06/28/19 20:46 06/28/19 20:46 06/28/19 20:46 06/28/19 20:46 Intake & Output 06/27/19 06/28/19 06/29/19 06:59 06:59 06:59 Intake Total 4508 4560 1460 Balance 4508 4560 1460 Weight 66.8 kg General appearance: PRESENT: no acute distress Eye exam: PRESENT: PERRLA Respiratory exam: PRESENT: clear to auscultation carolyn Cardiovascular exam: PRESENT: +S1, +S2 GI/Abdominal exam: PRESENT: soft Neurological exam: PRESENT: alert Results Laboratory Results: 06/28/19 06:00 06/28/19 06:00 06/28/19 06/28/19 06:00 06:00 WBC 5.0 RBC 1.38 L Hgb 6.0 L Hct 17.0 L MCV 123 H MCH 43.3 H MCHC 35.2 RDW 25.0 H Plt Count 193 Seg Neutrophils % Not Reportable Sodium 138.6 Potassium 4.1 Chloride 105 Carbon Dioxide 27 Anion Gap 7 BUN 7 Creatinine 0.54 Est GFR ( Amer) > 60 Glucose 99 Calcium 7.7 L Total Bilirubin 2.0 H AST 59 H Alkaline Phosphatase 152 H Total Protein 6.0 L Albumin 3.7 06/23/19 02:09 Blood Blood Culture - Final NO GROWTH IN 5 DAYS 06/23/19 00:50 Blood Blood Culture - Final NO GROWTH IN 5 DAYS 06/23/19 06/23/19 00:05 00:05 Creatine Kinase 28 L Troponin I < 0.012 Impressions: Chest X-Ray 06/22/19 19:55 IMPRESSION: Patchy left basilar opacity. Consider atelectasis or pneumonia to include aspiration. copyright 2011 [employer]- All Rights Reserved Assessment & Plan - Diagnosis (1) Vaso-occlusive sickle cell crisis Is this a current diagnosis for this admission?: Yes Plan: Continue present management (2) Sickle cell anemia Is this a current diagnosis for this admission?: Yes (3) Hemolytic anemia Qualifiers: Hemolytic anemia type: other hemoglobinopathy Qualified Code(s): D58.2 - Other hemoglobinopathies Is this a current diagnosis for this admission?: Yes - Time Time Spent with patient: 25-34 minutes
[2019-06-29] MEDS: HYDROMORPHONE HCL INJ/PF 2 MG/ML AMPULE IV PRN ×11 (00:30→22:36)
[2019-06-29] MEDS: DIPHENHYDRAMINE HCL 50 MG/ML VIAL IV PRN ×4 (02:30→21:01)
[2019-06-29] MEDS: GABAPENTIN 300 MG CAPSULE PO SCH ×3 (05:23→22:37)
[2019-06-29] MEDS: NORMAL SALINE 1000 ML 1,000 ML IV PRN (06:55)
--- NOTE | 2019-06-29 07:49 | PDOC PROGRESS REPORT ---
Subjective Progress Note for:: 06/29/19 Subjective:: Patient complaining of dry, itchy eyes. Also with LE edema and continued pain in the arms and legs. She is trying to drink and walk in hallway. She will start her Jadenu today. ROS: NO dypnea, some rib pain. No constipation. Some itching. Reason For Visit: SICKLE CELL CRISIS Physical Exam Vital Signs: Temp Pulse Resp BP Pulse Ox 99.1 F 87 16 109/57 L 100 06/29/19 00:00 06/29/19 02:00 06/29/19 00:00 06/29/19 00:00 06/28/19 20:46 Intake & Output 06/28/19 06/29/19 06/30/19 06:59 06:59 06:59 Intake Total 4560 4127 Balance 4560 4127 Weight 66.8 kg 71.3 kg General appearance: PRESENT: no acute distress, well-developed, well-nourished Head exam: PRESENT: normocephalic Respiratory exam: PRESENT: clear to auscultation carolyn, unlabored Cardiovascular exam: PRESENT: RRR Extremities exam: PRESENT: +1 edema - all 4 extremities Neurological exam: PRESENT: alert, awake Psychiatric exam: PRESENT: appropriate affect Skin exam: PRESENT: normal color Results Laboratory Results: 06/28/19 06:00 06/28/19 06:00 06/23/19 06/23/19 00:05 00:05 Creatine Kinase 28 L Troponin I < 0.012 Impressions: Chest X-Ray 06/22/19 19:55 IMPRESSION: Patchy left basilar opacity. Consider atelectasis or pneumonia to include aspiration. copyright 2010 [employer]- All Rights Reserved Assessment & Plan - Diagnosis (1) Vaso-occlusive sickle cell crisis Is this a current diagnosis for this admission?: Yes Plan: Continue pain meds without changes. I will change NS to 1/2 NS a 150 mL/hr to see if this helps her pain a bit better. (2) Anemia, sickle cell with crisis Is this a current diagnosis for this admission?: Yes Plan: No indication for blood transfusion at his time. Will continue to monitor labs only every other day. (3) Dehydration Is this a current diagnosis for this admission?: Yes (4) Iron overload due to repeated red blood cell transfusions Is this a current diagnosis for this admission?: Yes Plan: She will start her Jadenu today. She has been instructed to tell nurses when she takes this for documentation but is allowed to take her own medication. - Time Time Spent with patient: 15-24 minutes - Plan Summary Plan Summary: I have also ordered artificial tears for her dry, itchy eyes. I have encouraged her to walk in singh as much as possible.
[2019-06-29] MEDS: 1/2 NORMAL SALINE 1,000 ML IV PRN (08:58)
[2019-06-29] MEDS: FOLIC ACID 1 MG TABLET PO SCH (10:59)
[2019-06-29] MEDS: OXYCODONE HCL SR 10 MG TABLET PO SCH (10:59)
[2019-06-29] MEDS: HYDROXYUREA 500 MG CAPSULE PO SCH (10:59)
[2019-06-29] MEDS: BACITRACIN ZINC OINTMENT 15 GM TP SCH ×2 (11:00→17:07)
[2019-06-29] MEDS: POLYVINYL ALCOHOL 1.4% OPH SOLN 15 ML OU PRN ×2 (11:01→22:39)
--- NOTE | 2019-06-29 21:03 | PDOC PROGRESS REPORT ---
Subjective Progress Note for:: 06/29/19 Subjective:: she has some mild swelling of both eyelids Reason For Visit: SICKLE CELL CRISIS Physical Exam Vital Signs: Temp Pulse Resp BP Pulse Ox 99.3 F 82 16 95/45 L 99 06/29/19 15:59 06/29/19 15:59 06/29/19 15:59 06/29/19 15:59 06/29/19 15:59 Intake & Output 06/28/19 06/29/19 06/30/19 06:59 06:59 06:59 Intake Total 4560 4127 798 Balance 4560 4127 798 Weight 66.8 kg 71.3 kg General appearance: PRESENT: no acute distress Eye exam: PRESENT: PERRLA Respiratory exam: PRESENT: clear to auscultation carolyn Cardiovascular exam: PRESENT: +S1, +S2 GI/Abdominal exam: PRESENT: soft Results Laboratory Results: 06/28/19 06:00 06/28/19 06:00 06/23/19 06/23/19 00:05 00:05 Creatine Kinase 28 L Troponin I < 0.012 Impressions: Chest X-Ray 06/22/19 19:55 IMPRESSION: Patchy left basilar opacity. Consider atelectasis or pneumonia to include aspiration. copyright 2010 [employer]- All Rights Reserved Assessment & Plan - Diagnosis (1) Vaso-occlusive sickle cell crisis Is this a current diagnosis for this admission?: Yes (2) Sickle cell anemia Is this a current diagnosis for this admission?: Yes (3) Hemolytic anemia Qualifiers: Hemolytic anemia type: other hemoglobinopathy Qualified Code(s): D58.2 - Other hemoglobinopathies Is this a current diagnosis for this admission?: Yes - Time Time Spent with patient: 15-24 minutes
[2019-06-30] MEDS: OXYCODONE HCL SR 10 MG TABLET PO SCH ×3 (00:02→21:23)
[2019-06-30] MEDS: 1/2 NORMAL SALINE 1,000 ML IV PRN ×4 (00:05→21:19)
[2019-06-30] MEDS: HYDROMORPHONE HCL INJ/PF 2 MG/ML AMPULE IV PRN ×11 (00:30→22:13)
[2019-06-30] MEDS: DIPHENHYDRAMINE HCL 50 MG/ML VIAL IV PRN ×4 (02:32→22:14)
[2019-06-30] MEDS: POLYVINYL ALCOHOL 1.4% OPH SOLN 15 ML OU PRN (02:36)
[2019-06-30 05:55] LABS: ALBUMIN 3.8 g/dL (3.5-5.0); ALKALINE PHOSPHATASE 157 U/L (38-126); ANION GAP 6 (5-19); ASPARTATE AMINO TRANSFERASE 75 U/L (14-36); BILIRUBIN,DIRECT 0.3 mg/dL (0.0-0.4); BILIRUBIN,TOTAL 2.7 mg/dL (0.2-1.3); BLOOD UREA NITROGEN 9 mg/dL (7-20); CALCIUM 8.6 mg/dL (8.4-10.2); CARBON DIOXIDE 28 mmol/L (22-30); CHLORIDE 104 mmol/L (98-107); GLUCOSE 81 mg/dL (75-110); POTASSIUM 4.4 mmol/L (3.6-5.0); TOTAL PROTEIN 6.4 g/dL (6.3-8.2)
[2019-06-30 06:18] LABS: MEAN CORPUSCULAR HEMOGLOBIN 42.9 pg (27.0-33.4); MEAN CORPUSCULAR HGB CONC 35.1 g/dL (32.0-36.0); MEAN CORPUSCULAR VOLUME 122 fl (80-97); PLATELET COUNT 175 10^3/uL (150-450); RED BLOOD COUNT 1.39 10^6/uL (3.72-5.28); RED CELL DISTRIBUTION WIDTH 25.4 % (11.5-14.0); WHITE BLOOD COUNT 4.2 10^3/uL (4.0-10.5)
[2019-06-30 06:28] LABS: ABSOLUTE LYMPHOCYTES# (MANUAL) 2.1 10^3/uL (0.5-4.7); ABSOLUTE MONOCYTES # (MANUAL) 0.3 10^3/uL (0.1-1.4); BASOPHILS % (MANUAL) 0 % (0-2); EOSINOPHILS % (MANUAL) 2 % (0-6); LYMPHOCYTES % (MANUAL) 51 % (13-45); MONOCYTES % (MANUAL) 7 % (3-13); NUCLEATED RED BLOOD CELLS 7 /100 WBC (0); SEGMENTED NEUTROPHILS % (MAN) 40 % (42-78); TOTAL CELLS COUNTED 100
[2019-06-30 06:30] LABS: ANISOCYTOSIS 3+; BURR CELLS SLIGHT; OVALOCYTES 1+; PLATELET COMMENT ADEQUATE; POIKILOCYTOSIS 1+; POLYCHROMASIA SLIGHT; SCHISTOCYTES SLIGHT; SICKLE RED CELLS 1+; TARGET CELLS SLIGHT; TOXIC GRANULATION 1+
[2019-06-30] MEDS: GABAPENTIN 300 MG CAPSULE PO SCH ×3 (06:56→21:24)
[2019-06-30] MEDS: BACITRACIN ZINC OINTMENT 15 GM TP SCH (09:30)
[2019-06-30] MEDS: FOLIC ACID 1 MG TABLET PO SCH (09:30)
[2019-06-30] MEDS: HYDROXYUREA 500 MG CAPSULE PO SCH (09:30)
--- NOTE | 2019-06-30 16:38 | PDOC PROGRESS REPORT ---
Subjective Progress Note for:: 06/30/19 Subjective:: She was seen by the bedside, she has inflammation of the eyelids bilaterally, not sure what is causing these Reason For Visit: SICKLE CELL CRISIS Physical Exam Vital Signs: Temp Pulse Resp BP Pulse Ox 98.9 F 84 12 107/57 L 96 06/30/19 11:49 06/30/19 14:00 06/30/19 11:49 06/30/19 11:49 06/30/19 11:49 Intake & Output 06/29/19 06/30/19 07/01/19 06:59 06:59 06:59 Intake Total 4127 3724 1000 Balance 4127 3724 1000 Weight 71.3 kg 72.2 kg 72 kg General appearance: PRESENT: no acute distress Eye exam: PRESENT: PERRLA Respiratory exam: PRESENT: clear to auscultation carolyn Cardiovascular exam: PRESENT: +S1, +S2 GI/Abdominal exam: PRESENT: soft Results Laboratory Results: 06/30/19 04:35 06/30/19 04:35 06/30/19 06/30/19 04:35 04:35 WBC 4.2 RBC 1.39 L Hgb 6.0 L Hct 17.0 L MCV 122 H MCH 42.9 H MCHC 35.1 RDW 25.4 H Plt Count 175 Seg Neutrophils % Not Reportable Sodium 137.7 Potassium 4.4 Chloride 104 Carbon Dioxide 28 Anion Gap 6 BUN 9 Creatinine 0.53 Est GFR ( Amer) > 60 Glucose 81 Calcium 8.6 Total Bilirubin 2.7 H AST 75 H Alkaline Phosphatase 157 H Total Protein 6.4 Albumin 3.8 06/23/19 06/23/19 00:05 00:05 Creatine Kinase 28 L Troponin I < 0.012 Impressions: Chest X-Ray 06/22/19 19:55 IMPRESSION: Patchy left basilar opacity. Consider atelectasis or pneumonia to include aspiration. copyright 2010 [employer]- All Rights Reserved Assessment & Plan - Diagnosis (1) Vaso-occlusive sickle cell crisis Is this a current diagnosis for this admission?: Yes (2) Sickle cell anemia Is this a current diagnosis for this admission?: Yes (3) Hemolytic anemia Qualifiers: Hemolytic anemia type: other hemoglobinopathy Qualified Code(s): D58.2 - Other hemoglobinopathies Is this a current diagnosis for this admission?: Yes (4) Blepharitis, bilateral Qualifiers: Blepharitis type: unspecified type Eyelid: upper Qualified Code(s): H01.001 - Unspecified blepharitis right upper eyelid; H01.004 - Unspecified blepharitis left upper eyelid Is this a current diagnosis for this admission?: Yes Plan: Apply tobramycin ointment - Time Time Spent with patient: 25-34 minutes
--- NOTE | 2019-06-30 17:45 | PDOC PROGRESS REPORT ---
Subjective Progress Note for:: 06/30/19 Subjective:: Patient feeling about the same. Eyes still itching and very dry. Artificial tears not helping. Using warm compresses. New antibiotic drops have been ordered. Has not yet walked in singh. ROS: no constipation. No dyspnea. Reason For Visit: SICKLE CELL CRISIS Physical Exam Vital Signs: Temp Pulse Resp BP Pulse Ox 98.9 F 84 12 107/57 L 96 06/30/19 11:49 06/30/19 14:00 06/30/19 11:49 06/30/19 11:49 06/30/19 11:49 Intake & Output 06/29/19 06/30/19 07/01/19 06:59 06:59 06:59 Intake Total 4127 3724 1222 Balance 4127 3724 1222 Weight 71.3 kg 72.2 kg 72 kg General appearance: PRESENT: well-developed, well-nourished Head exam: PRESENT: normocephalic Respiratory exam: PRESENT: clear to auscultation carolyn, unlabored Cardiovascular exam: PRESENT: RRR Extremities exam: PRESENT: +1 edema Neurological exam: PRESENT: alert, awake Psychiatric exam: PRESENT: appropriate affect Skin exam: PRESENT: normal color Results Laboratory Results: 06/30/19 04:35 06/30/19 04:35 06/30/19 06/30/19 04:35 04:35 WBC 4.2 RBC 1.39 L Hgb 6.0 L Hct 17.0 L MCV 122 H MCH 42.9 H MCHC 35.1 RDW 25.4 H Plt Count 175 Seg Neutrophils % Not Reportable Sodium 137.7 Potassium 4.4 Chloride 104 Carbon Dioxide 28 Anion Gap 6 BUN 9 Creatinine 0.53 Est GFR ( Amer) > 60 Glucose 81 Calcium 8.6 Total Bilirubin 2.7 H AST 75 H Alkaline Phosphatase 157 H Total Protein 6.4 Albumin 3.8 06/23/19 06/23/19 00:05 00:05 Creatine Kinase 28 L Troponin I < 0.012 Impressions: Chest X-Ray 06/22/19 19:55 IMPRESSION: Patchy left basilar opacity. Consider atelectasis or pneumonia to include aspiration. copyright 2010 [employer]- All Rights Reserved Assessment & Plan - Diagnosis (1) Vaso-occlusive sickle cell crisis Is this a current diagnosis for this admission?: Yes Plan: LDH and Bili still increasing, indicating continued hemolysis. (2) Anemia, sickle cell with crisis Is this a current diagnosis for this admission?: Yes Plan: Continue all treatments without changes. Pain medications continue. (3) Dehydration Is this a current diagnosis for this admission?: Yes (4) Iron overload due to repeated red blood cell transfusions Is this a current diagnosis for this admission?: Yes Plan: She is taking her Jadenu. - Time Time Spent with patient: 15-24 minutes
[2019-06-30] MEDS ORDERED: TOBRAMYCIN SULFATE/DEXAMETH OPH OINTMENT 3.5 GM ONE (18:19)
[2019-06-30] MEDS: TOBRAMYCIN SULFATE/DEXAMETH OPH OINTMENT 3.5 GM OU SCH ×2 (18:28→21:26)
[2019-07-01] MEDS: HYDROMORPHONE HCL INJ/PF 2 MG/ML AMPULE IV PRN ×11 (00:22→22:51)
[2019-07-01] MEDS: TOBRAMYCIN SULFATE/DEXAMETH OPH OINTMENT 3.5 GM OU SCH ×5 (01:57→17:26)
[2019-07-01] MEDS: DIPHENHYDRAMINE HCL 50 MG/ML VIAL IV PRN ×4 (04:41→22:51)
[2019-07-01] MEDS: 1/2 NORMAL SALINE 1,000 ML IV PRN ×3 (05:05→19:21)
[2019-07-01] MEDS: GABAPENTIN 300 MG CAPSULE PO SCH ×3 (06:54→21:20)
[2019-07-01] MEDS: HYDROXYUREA 500 MG CAPSULE PO SCH (09:39)
[2019-07-01] MEDS: OXYCODONE HCL SR 10 MG TABLET PO SCH ×2 (09:39→21:19)
[2019-07-01] MEDS: FOLIC ACID 1 MG TABLET PO SCH (09:39)
--- NOTE | 2019-07-01 15:11 | PDOC PROGRESS REPORT ---
Subjective Progress Note for:: 07/01/19 Subjective:: Patient seen by the bedside, she was started on tobramycin ointment for the eyelid, she said the ointment gave her headache Reason For Visit: SICKLE CELL CRISIS Physical Exam Vital Signs: Temp Pulse Resp BP Pulse Ox 98.3 F 76 18 127/73 H 100 07/01/19 12:00 07/01/19 12:00 07/01/19 12:00 07/01/19 12:00 07/01/19 12:00 Intake & Output 06/30/19 07/01/19 07/02/19 06:59 06:59 06:59 Intake Total 3724 3926 998 Balance 3724 3926 998 Weight 72.2 kg 73.1 kg General appearance: PRESENT: no acute distress Eye exam: PRESENT: PERRLA Respiratory exam: PRESENT: clear to auscultation carolyn Cardiovascular exam: PRESENT: +S1, +S2 GI/Abdominal exam: PRESENT: soft Neurological exam: PRESENT: alert Results Laboratory Results: 06/30/19 04:35 06/30/19 04:35 06/23/19 06/23/19 00:05 00:05 Creatine Kinase 28 L Troponin I < 0.012 Impressions: Chest X-Ray 06/22/19 19:55 IMPRESSION: Patchy left basilar opacity. Consider atelectasis or pneumonia to include aspiration. copyright 2011 [employer] [facility] [employer]- All Rights Reserved Assessment & Plan - Diagnosis (1) Vaso-occlusive sickle cell crisis Is this a current diagnosis for this admission?: Yes (2) Sickle cell anemia Is this a current diagnosis for this admission?: Yes (3) Hemolytic anemia Qualifiers: Hemolytic anemia type: other hemoglobinopathy Qualified Code(s): D58.2 - Other hemoglobinopathies Is this a current diagnosis for this admission?: Yes - Time Time Spent with patient: Less than 15 minutes
[2019-07-02] MEDS ORDERED: TOBRAMYCIN SULFATE/DEXAMETH OPH OINTMENT 3.5 GM ONE (00:22)
[2019-07-02] MEDS: TOBRAMYCIN SULFATE/DEXAMETH OPH OINTMENT 3.5 GM OU SCH ×7 (00:25→21:30)
[2019-07-02] MEDS: HYDROMORPHONE HCL INJ/PF 2 MG/ML AMPULE IV PRN ×11 (00:59→22:34)
[2019-07-02] MEDS: 1/2 NORMAL SALINE 1,000 ML IV PRN ×4 (02:28→21:36)
[2019-07-02] MEDS: GABAPENTIN 300 MG CAPSULE PO SCH ×3 (05:05→21:29)
[2019-07-02] MEDS: DIPHENHYDRAMINE HCL 50 MG/ML VIAL IV PRN ×3 (05:05→17:45)
--- NOTE | 2019-07-02 07:45 | PDOC PROGRESS REPORT ---
Subjective Progress Note for:: 07/02/19 Subjective:: Patient states that she was able to walk in the singh yesterday. Pain has not changed, but she is trying to keep her strength up. Eyes are feeling better with new medication. ROS: rib pain with breathing, no dyspnea. No constipation. Reason For Visit: SICKLE CELL CRISIS Physical Exam Vital Signs: Temp Pulse Resp BP Pulse Ox 98.3 F 84 17 106/55 L 100 07/02/19 04:22 07/02/19 04:22 07/02/19 04:22 07/02/19 04:22 07/02/19 04:22 Intake & Output 07/01/19 07/02/19 07/03/19 06:59 06:59 06:59 Intake Total 3926 3664 Balance 3926 3664 Weight 73.1 kg 73.4 kg General appearance: PRESENT: no acute distress, well-developed, well-nourished Head exam: PRESENT: normocephalic Respiratory exam: PRESENT: clear to auscultation carolyn, unlabored Cardiovascular exam: PRESENT: RRR Extremities exam: PRESENT: +1 edema Neurological exam: PRESENT: alert, awake Psychiatric exam: PRESENT: appropriate affect Skin exam: PRESENT: normal color Results Laboratory Results: 06/30/19 04:35 06/30/19 04:35 06/23/19 06/23/19 00:05 00:05 Creatine Kinase 28 L Troponin I < 0.012 Impressions: Chest X-Ray 06/22/19 19:55 IMPRESSION: Patchy left basilar opacity. Consider atelectasis or pneumonia to include aspiration. copyright 2011 [employer]- All Rights Reserved Assessment & Plan - Diagnosis (1) Vaso-occlusive sickle cell crisis Is this a current diagnosis for this admission?: Yes Plan: Will check labs again tomorrow morning. Continue current treatments. (2) Anemia, sickle cell with crisis Is this a current diagnosis for this admission?: Yes Plan: No indication for blood transfusion. Taking Jadenu. (3) Dehydration Is this a current diagnosis for this admission?: Yes (4) Iron overload due to repeated red blood cell transfusions Is this a current diagnosis for this admission?: Yes - Time Time Spent with patient: 15-24 minutes - Plan Summary Plan Summary: Continue current therapy. No changes today. HOpe to start weaning Dilaudid within the next 1-2 days.
[2019-07-02] MEDS: OXYCODONE HCL SR 10 MG TABLET PO SCH ×2 (09:17→21:28)
[2019-07-02] MEDS: FOLIC ACID 1 MG TABLET PO SCH (09:17)
[2019-07-02] MEDS: HYDROXYUREA 500 MG CAPSULE PO SCH (09:17)
--- NOTE | 2019-07-02 20:35 | PDOC PROGRESS REPORT ---
Subjective Progress Note for:: 07/02/19 Subjective:: Patient seen by the bedside, the blepharitis is improved Reason For Visit: SICKLE CELL CRISIS Physical Exam Vital Signs: Temp Pulse Resp BP Pulse Ox 99.1 F 91 18 101/66 100 07/02/19 16:51 07/02/19 16:51 07/02/19 16:51 07/02/19 16:51 07/02/19 16:51 Intake & Output 07/01/19 07/02/19 07/03/19 06:59 06:59 06:59 Intake Total 3926 3664 3057 Output Total 1300 Balance 3926 3664 1757 Weight 73.1 kg 73.4 kg General appearance: PRESENT: no acute distress Eye exam: PRESENT: PERRLA Respiratory exam: PRESENT: clear to auscultation carolyn Cardiovascular exam: PRESENT: +S1, +S2 GI/Abdominal exam: PRESENT: soft Neurological exam: PRESENT: alert Results Laboratory Results: 06/30/19 04:35 06/30/19 04:35 06/23/19 06/23/19 00:05 00:05 Creatine Kinase 28 L Troponin I < 0.012 Impressions: Chest X-Ray 06/22/19 19:55 IMPRESSION: Patchy left basilar opacity. Consider atelectasis or pneumonia to include aspiration. copyright 2011 [employer]- All Rights Reserved Assessment & Plan - Diagnosis (1) Vaso-occlusive sickle cell crisis Is this a current diagnosis for this admission?: Yes Plan: Continue treatment per hematology (2) Sickle cell anemia Is this a current diagnosis for this admission?: Yes (3) Hemolytic anemia Qualifiers: Hemolytic anemia type: other hemoglobinopathy Qualified Code(s): D58.2 - Other hemoglobinopathies Is this a current diagnosis for this admission?: Yes - Time Time Spent with patient: 15-24 minutes
[2019-07-03] MEDS: HYDROMORPHONE HCL INJ/PF 2 MG/ML AMPULE IV PRN ×10 (00:43→22:06)
[2019-07-03] MEDS: DIPHENHYDRAMINE HCL 50 MG/ML VIAL IV PRN ×4 (00:44→19:59)
[2019-07-03] MEDS: TOBRAMYCIN SULFATE/DEXAMETH OPH OINTMENT 3.5 GM OU SCH ×6 (02:01→22:10)
[2019-07-03] MEDS: 1/2 NORMAL SALINE 1,000 ML IV PRN ×3 (03:50→18:00)
[2019-07-03] MEDS: GABAPENTIN 300 MG CAPSULE PO SCH ×3 (05:42→21:11)
[2019-07-03 07:02] LABS: HEMATOCRIT 16.5 % (36.0-47.0); PLATELET COUNT 166 10^3/uL (150-450); WHITE BLOOD COUNT 5.2 10^3/uL (4.0-10.5)
[2019-07-03] MEDS ORDERED: NORMAL SALINE 1000 ML 1,000 ML with POTASSIUM CHLORIDE 20 MEQ, MAGNESIUM SULFATE 8 MEQ,... IV PRN ×5 (08:42)
--- NOTE | 2019-07-03 08:49 | PDOC PROGRESS REPORT ---
Subjective Progress Note for:: 07/03/19 Subjective:: Patient states that pain has not improved. However, she was able to walk in [place] yesterday and day before. She is trying to keep her strength up. ROS: No dyspnea. No constipation. Rib pain continues with breathing. Reason For Visit: SICKLE CELL CRISIS Physical Exam Vital Signs: Temp Pulse Resp BP Pulse Ox 98.2 F 88 17 110/65 95 07/03/19 00:00 07/03/19 07:00 07/03/19 00:00 07/03/19 00:00 07/03/19 00:00 Intake & Output 07/02/19 07/03/19 07/04/19 06:59 06:59 06:59 Intake Total 3664 5610 Output Total 1300 Balance 3664 4310 Weight 73.4 kg 72 kg General appearance: PRESENT: no acute distress, well-developed, well-nourished Head exam: PRESENT: normocephalic Eye exam: PRESENT: EOMI Respiratory exam: PRESENT: clear to auscultation carolyn, unlabored Cardiovascular exam: PRESENT: RRR Extremities exam: PRESENT: +1 edema Neurological exam: PRESENT: awake Psychiatric exam: PRESENT: appropriate affect Skin exam: PRESENT: normal color Results Laboratory Results: 07/03/19 07/03/19 06:20 07:10 Sodium Cancelled Cancelled Potassium Cancelled Cancelled Chloride Cancelled Cancelled Carbon Dioxide Cancelled Cancelled Anion Gap Cancelled Cancelled BUN Cancelled Cancelled Creatinine Cancelled Cancelled Est GFR ( Amer) Cancelled Cancelled Est GFR (Non-Af Amer) Cancelled Cancelled Glucose Cancelled Cancelled Calcium Cancelled Cancelled Total Bilirubin Cancelled Cancelled AST Cancelled Cancelled Alkaline Phosphatase Cancelled Cancelled Total Protein Cancelled Cancelled Albumin Cancelled Cancelled 06/23/19 06/23/19 00:05 00:05 Creatine Kinase 28 L Troponin I < 0.012 Impressions: Chest X-Ray 06/22/19 19:55 IMPRESSION: Patchy left basilar opacity. Consider atelectasis or pneumonia to include aspiration. copyright 2010 [employer]- All Rights Reserved Assessment & Plan - Diagnosis (1) Vaso-occlusive sickle cell crisis Is this a current diagnosis for this admission?: Yes Plan: I will give 1 extra dose Dilaudid today. Continue all other treatments. (2) Anemia, sickle cell with crisis Is this a current diagnosis for this admission?: Yes Plan: Await labs today. Will give Banana bag x 1. (3) Dehydration Is this a current diagnosis for this admission?: Yes (4) Iron overload due to repeated red blood cell transfusions Is this a current diagnosis for this admission?: Yes Plan: Continues Jadenu - Time Time Spent with patient: 15-24 minutes - Plan Summary Plan Summary: Await today's labs. Continued encouragement walking.
[2019-07-03 09:02] LABS: ALBUMIN 3.7 g/dL (3.5-5.0); ALKALINE PHOSPHATASE 147 U/L (38-126); ANION GAP 8 (5-19); ASPARTATE AMINO TRANSFERASE 59 U/L (14-36); BILIRUBIN,DIRECT 0.3 mg/dL (0.0-0.4); BILIRUBIN,TOTAL 3.1 mg/dL (0.2-1.3); BLOOD UREA NITROGEN 8 mg/dL (7-20); CALCIUM 8.5 mg/dL (8.4-10.2); CARBON DIOXIDE 28 mmol/L (22-30); CHLORIDE 103 mmol/L (98-107); GLUCOSE 89 mg/dL (75-110); POTASSIUM 4.1 mmol/L (3.6-5.0); TOTAL PROTEIN 6.6 g/dL (6.3-8.2)
[2019-07-03 09:14] LABS: HEMOGLOBIN 5.9 g/dL (12.0-15.5)
[2019-07-03] MEDS: FOLIC ACID 1 MG TABLET PO SCH (09:20)
[2019-07-03] MEDS: HYDROXYUREA 500 MG CAPSULE PO SCH (09:20)
[2019-07-03] MEDS: OXYCODONE HCL SR 10 MG TABLET PO SCH ×2 (09:21→21:11)
[2019-07-03] MEDS ORDERED: HYDROMORPHONE HCL INJ/PF 2 MG/ML AMPULE IV ONE (09:30)
[2019-07-03 09:31] LABS: ABSOLUTE LYMPHOCYTES# (MANUAL) 2.1 10^3/uL (0.5-4.7); ABSOLUTE MONOCYTES # (MANUAL) 0.3 10^3/uL (0.1-1.4); ANISOCYTOSIS 3+; BASOPHILS % (MANUAL) 2 % (0-2); EOSINOPHILS % (MANUAL) 8 % (0-6); LYMPHOCYTES % (MANUAL) 40 % (13-45); MONOCYTES % (MANUAL) 6 % (3-13); NUCLEATED RED BLOOD CELLS 6 /100 WBC (0); POIKILOCYTOSIS 1+; SEGMENTED NEUTROPHILS % (MAN) 44 % (42-78); SICKLE RED CELLS SLIGHT; TOTAL CELLS COUNTED 100
[2019-07-03 09:32] LABS: HYPOCHROMASIA 1+; POLYCHROMASIA SLIGHT; SCHISTOCYTES SLIGHT; TARGET CELLS SLIGHT
[2019-07-03 09:34] LABS: PLATELET COMMENT ADEQUATE
--- NOTE | 2019-07-03 21:26 | PDOC PROGRESS REPORT ---
Subjective Progress Note for:: 07/03/19 Subjective:: Patient seen by the bedside, she was seen by the broadcast news producer she continues to complain of pain Reason For Visit: SICKLE CELL CRISIS Physical Exam Vital Signs: Temp Pulse Resp BP Pulse Ox 98.4 F 83 16 93/53 L 100 07/03/19 17:30 07/03/19 19:00 07/03/19 17:30 07/03/19 17:30 07/03/19 17:30 Intake & Output 07/02/19 07/03/19 07/04/19 06:59 06:59 06:59 Intake Total 3664 5610 2800 Output Total 1300 Balance 3664 4310 2800 Weight 73.4 kg 72 kg General appearance: PRESENT: no acute distress Eye exam: PRESENT: PERRLA Respiratory exam: PRESENT: clear to auscultation carolyn Cardiovascular exam: PRESENT: +S1, +S2 GI/Abdominal exam: PRESENT: soft Results Laboratory Results: 07/03/19 06:20 07/03/19 08:15 07/03/19 07/03/19 07/03/19 06:20 06:20 07:10 WBC 5.2 RBC Hgb 5.9 L Hct 16.5 L MCV MCH MCHC RDW Plt Count 166 Seg Neutrophils % Not Reportable Sodium Cancelled Cancelled Potassium Cancelled Cancelled Chloride Cancelled Cancelled Carbon Dioxide Cancelled Cancelled Anion Gap Cancelled Cancelled BUN Cancelled Cancelled Creatinine Cancelled Cancelled Est GFR ( Amer) Cancelled Cancelled Est GFR (Non-Af Amer) Cancelled Cancelled Glucose Cancelled Cancelled Calcium Cancelled Cancelled Total Bilirubin Cancelled Cancelled AST Cancelled Cancelled Alkaline Phosphatase Cancelled Cancelled Total Protein Cancelled Cancelled Albumin Cancelled Cancelled 07/03/19 08:15 WBC RBC Hgb Hct MCV MCH MCHC RDW Plt Count Seg Neutrophils % Sodium 138.9 Potassium 4.1 Chloride 103 Carbon Dioxide 28 Anion Gap 8 BUN 8 Creatinine 0.60 Est GFR ( Amer) > 60 Est GFR (Non-Af Amer) Glucose 89 Calcium 8.5 Total Bilirubin 3.1 H AST 59 H Alkaline Phosphatase 147 H Total Protein 6.6 Albumin 3.7 06/23/19 06/23/19 00:05 00:05 Creatine Kinase 28 L Troponin I < 0.012 Impressions: Chest X-Ray 06/22/19 19:55 IMPRESSION: Patchy left basilar opacity. Consider atelectasis or pneumonia to include aspiration. copyright 2011 [employer]- All Rights Reserved Assessment & Plan - Diagnosis (1) Vaso-occlusive sickle cell crisis Is this a current diagnosis for this admission?: Yes (2) Sickle cell anemia Is this a current diagnosis for this admission?: Yes (3) Hemolytic anemia Qualifiers: Hemolytic anemia type: other hemoglobinopathy Qualified Code(s): D58.2 - Other hemoglobinopathies Is this a current diagnosis for this admission?: Yes - Time Time Spent with patient: 15-24 minutes
[2019-07-04] MEDS: HYDROMORPHONE HCL INJ/PF 2 MG/ML AMPULE IV PRN ×11 (00:24→22:08)
[2019-07-04] MEDS: 1/2 NORMAL SALINE 1,000 ML IV PRN ×3 (00:56→22:10)
[2019-07-04] MEDS: TOBRAMYCIN SULFATE/DEXAMETH OPH OINTMENT 3.5 GM OU SCH ×6 (02:23→21:26)
[2019-07-04] MEDS: DIPHENHYDRAMINE HCL 50 MG/ML VIAL IV PRN ×4 (02:31→22:07)
[2019-07-04] MEDS: GABAPENTIN 300 MG CAPSULE PO SCH ×3 (06:42→21:25)
--- NOTE | 2019-07-04 07:53 | PDOC PROGRESS REPORT ---
Subjective Progress Note for:: 07/04/19 Subjective:: Patient reports no change in pain. Much worse in extremities. Able to walk in [place] yesterday. Pain is worse first thing in the morning. She did not get the banana bag as ordered yesterday. Reason For Visit: SICKLE CELL CRISIS Physical Exam Vital Signs: Temp Pulse Resp BP Pulse Ox 98.0 F 85 17 97/75 L 98 07/04/19 00:00 07/04/19 02:00 07/04/19 00:00 07/04/19 00:00 07/04/19 00:00 Intake & Output 07/03/19 07/04/19 07/05/19 06:59 06:59 06:59 Intake Total 5610 4410 Output Total 1300 Balance 4310 4410 Weight 72 kg 74.7 kg General appearance: PRESENT: no acute distress, well-developed, well-nourished Head exam: PRESENT: normocephalic Respiratory exam: PRESENT: prolonged expiratory phas Neurological exam: PRESENT: alert, awake, oriented to person, oriented to place, oriented to time, oriented to situation Psychiatric exam: PRESENT: appropriate affect Skin exam: PRESENT: normal color Results Laboratory Results: 07/03/19 06:20 07/03/19 08:15 07/03/19 07/03/19 07/03/19 06:20 07:10 08:15 WBC 5.2 RBC Hgb 5.9 L Hct 16.5 L MCV MCH MCHC RDW Plt Count 166 Seg Neutrophils % Not Reportable Sodium Cancelled 138.9 Potassium Cancelled 4.1 Chloride Cancelled 103 Carbon Dioxide Cancelled 28 Anion Gap Cancelled 8 BUN Cancelled 8 Creatinine Cancelled 0.60 Est GFR ( Amer) Cancelled > 60 Est GFR (Non-Af Amer) Cancelled Glucose Cancelled 89 Calcium Cancelled 8.5 Total Bilirubin Cancelled 3.1 H AST Cancelled 59 H Alkaline Phosphatase Cancelled 147 H Total Protein Cancelled 6.6 Albumin Cancelled 3.7 06/23/19 06/23/19 00:05 00:05 Creatine Kinase 28 L Troponin I < 0.012 Impressions: Chest X-Ray 06/22/19 19:55 IMPRESSION: Patchy left basilar opacity. Consider atelectasis or pneumonia to include aspiration. copyright 2010 [employer]- All Rights Reserved Assessment & Plan - Diagnosis (1) Vaso-occlusive sickle cell crisis Is this a current diagnosis for this admission?: Yes Plan: Continue all current treatments. Her LDH and Bili are still climbing. (2) Anemia, sickle cell with crisis Is this a current diagnosis for this admission?: Yes Plan: No indication for blood transfusion. (3) Dehydration Is this a current diagnosis for this admission?: Yes Plan: She will get the banana bag today. Continue 1/2 NS at 150 (4) Iron overload due to repeated red blood cell transfusions Is this a current diagnosis for this admission?: Yes Plan: She is taking her Jadenu. - Time Time Spent with patient: Less than 15 minutes - Plan Summary Plan Summary: I have increased her Hydrea back to TID, as this did not significantly change her blood counts. She will continue to try to walk in [place]. Eyes are feeling better.
[2019-07-04] MEDS: OXYCODONE HCL SR 10 MG TABLET PO SCH ×2 (09:28→21:25)
[2019-07-04] MEDS: FOLIC ACID 1 MG TABLET PO SCH (09:29)
[2019-07-04] MEDS: HYDROXYUREA 500 MG CAPSULE PO SCH ×2 (13:16→21:26)
--- NOTE | 2019-07-04 18:32 | PDOC PROGRESS REPORT ---
Subjective Progress Note for:: 07/04/19 Subjective:: Patient seen by the bedside, she was seen by the industrial safety and health technician she continues to complain of pain Reason For Visit: SICKLE CELL CRISIS Physical Exam Vital Signs: Temp Pulse Resp BP Pulse Ox 98.6 F 83 16 93/57 L 100 07/04/19 16:00 07/04/19 16:00 07/04/19 16:00 07/04/19 16:00 07/04/19 16:00 Intake & Output 07/03/19 07/04/19 07/05/19 06:59 06:59 06:59 Intake Total 5610 4410 2118 Output Total 1300 Balance 4310 4410 2118 Weight 72 kg 74.7 kg General appearance: PRESENT: no acute distress Eye exam: PRESENT: PERRLA Respiratory exam: PRESENT: clear to auscultation carolyn Cardiovascular exam: PRESENT: +S1, +S2 GI/Abdominal exam: PRESENT: soft Results Laboratory Results: 07/03/19 06:20 07/03/19 08:15 06/23/19 06/23/19 00:05 00:05 Creatine Kinase 28 L Troponin I < 0.012 Impressions: Chest X-Ray 06/22/19 19:55 IMPRESSION: Patchy left basilar opacity. Consider atelectasis or pneumonia to include aspiration. copyright 2011 [employer]- All Rights Reserved Assessment & Plan - Diagnosis (1) Vaso-occlusive sickle cell crisis Is this a current diagnosis for this admission?: Yes (2) Sickle cell anemia Is this a current diagnosis for this admission?: Yes (3) Hemolytic anemia Qualifiers: Hemolytic anemia type: other hemoglobinopathy Qualified Code(s): D58.2 - Other hemoglobinopathies Is this a current diagnosis for this admission?: Yes - Time Time Spent with patient: 15-24 minutes
[2019-07-05] MEDS: HYDROMORPHONE HCL INJ/PF 2 MG/ML AMPULE IV PRN ×11 (00:32→22:06)
[2019-07-05] MEDS: TOBRAMYCIN SULFATE/DEXAMETH OPH OINTMENT 3.5 GM OU SCH ×6 (01:00→22:09)
[2019-07-05] MEDS: DIPHENHYDRAMINE HCL 50 MG/ML VIAL IV PRN ×3 (04:40→17:34)
[2019-07-05] MEDS: 1/2 NORMAL SALINE 1,000 ML IV PRN ×2 (04:45→18:43)
[2019-07-05] MEDS: HYDROXYUREA 500 MG CAPSULE PO SCH ×3 (05:56→22:05)
[2019-07-05] MEDS: GABAPENTIN 300 MG CAPSULE PO SCH ×3 (05:56→22:05)
--- NOTE | 2019-07-05 07:41 | PDOC PROGRESS REPORT ---
Subjective Progress Note for:: 07/05/19 Subjective:: Patient states that after walking, she had severe pain in her legs. Otherwise, no changes today. Continues her Jadenu. She states that she did not know she could have oxycodone PRN in addition to her dilaudid. She will try this today. Reason For Visit: SICKLE CELL CRISIS Physical Exam Vital Signs: Temp Pulse Resp BP Pulse Ox 98.9 F 96 17 98/62 L 100 07/05/19 00:00 07/05/19 07:05 07/05/19 00:00 07/05/19 00:00 07/05/19 00:00 Intake & Output 07/04/19 07/05/19 07/06/19 06:59 06:59 06:59 Intake Total 4410 5100 Balance 4410 5100 Weight 74.7 kg 75.6 kg General appearance: PRESENT: no acute distress, well-developed, well-nourished Head exam: PRESENT: normocephalic Respiratory exam: PRESENT: clear to auscultation carolyn, unlabored Cardiovascular exam: PRESENT: RRR Extremities exam: PRESENT: +1 edema Neurological exam: PRESENT: alert, awake Psychiatric exam: PRESENT: appropriate affect Skin exam: PRESENT: normal color Results Laboratory Results: 07/03/19 06:20 07/03/19 08:15 06/23/19 06/23/19 00:05 00:05 Creatine Kinase 28 L Troponin I < 0.012 Impressions: Chest X-Ray 06/22/19 19:55 IMPRESSION: Patchy left basilar opacity. Consider atelectasis or pneumonia to include aspiration. copyright 2011 [employer]- All Rights Reserved Assessment & Plan - Diagnosis (1) Vaso-occlusive sickle cell crisis Is this a current diagnosis for this admission?: Yes Plan: Will give banana bag again today at her request. Otherwise, keep all treatments the same. Continue O2. (2) Anemia, sickle cell with crisis Is this a current diagnosis for this admission?: Yes Plan: Repeat labs again tomorrow morning. (3) Dehydration Is this a current diagnosis for this admission?: Yes (4) Iron overload due to repeated red blood cell transfusions Is this a current diagnosis for this admission?: Yes Plan: Continue Jadenu. - Time Time Spent with patient: Less than 15 minutes
[2019-07-05] MEDS: OXYCODONE HCL SR 10 MG TABLET PO SCH ×2 (09:50→22:05)
[2019-07-05] MEDS: FOLIC ACID 1 MG TABLET PO SCH (09:52)
[2019-07-05] MEDS ORDERED: NORMAL SALINE 1000 ML 1,000 ML with POTASSIUM CHLORIDE 20 MEQ, MAGNESIUM SULFATE 8 MEQ,... IV PRN ×5 (10:00)
--- NOTE | 2019-07-05 20:30 | PDOC PROGRESS REPORT ---
Subjective Progress Note for:: 07/05/19 Subjective:: Patient seen by the bedside,There is no new complaints except for pain Reason For Visit: SICKLE CELL CRISIS Physical Exam Vital Signs: Temp Pulse Resp BP Pulse Ox 98.3 F 91 16 97/51 L 98 07/05/19 15:55 07/05/19 15:55 07/05/19 15:55 07/05/19 15:55 07/05/19 15:55 Intake & Output 07/04/19 07/05/19 07/06/19 06:59 06:59 06:59 Intake Total 4410 5100 4247 Balance 4410 5100 4247 Weight 74.7 kg 75.6 kg 75.6 kg General appearance: PRESENT: no acute distress Eye exam: PRESENT: PERRLA Respiratory exam: PRESENT: clear to auscultation carolyn Cardiovascular exam: PRESENT: +S1, +S2 Neurological exam: PRESENT: alert Results Laboratory Results: 07/03/19 06:20 07/03/19 08:15 06/23/19 06/23/19 00:05 00:05 Creatine Kinase 28 L Troponin I < 0.012 Impressions: Chest X-Ray 06/22/19 19:55 IMPRESSION: Patchy left basilar opacity. Consider atelectasis or pneumonia to include aspiration. copyright 2011 [employer]- All Rights Reserved Assessment & Plan - Diagnosis (1) Vaso-occlusive sickle cell crisis Is this a current diagnosis for this admission?: Yes (2) Sickle cell anemia Is this a current diagnosis for this admission?: Yes (3) Hemolytic anemia Qualifiers: Hemolytic anemia type: other hemoglobinopathy Qualified Code(s): D58.2 - Other hemoglobinopathies Is this a current diagnosis for this admission?: Yes - Time Time Spent with patient: 15-24 minutes
[2019-07-06] MEDS: DIPHENHYDRAMINE HCL 50 MG/ML VIAL IV PRN ×4 (00:13→19:38)
[2019-07-06] MEDS: HYDROMORPHONE HCL INJ/PF 2 MG/ML AMPULE IV PRN ×12 (00:13→23:31)
[2019-07-06] MEDS: 1/2 NORMAL SALINE 1,000 ML IV PRN ×3 (00:19→15:26)
[2019-07-06] MEDS: TOBRAMYCIN SULFATE/DEXAMETH OPH OINTMENT 3.5 GM OU SCH ×6 (01:02→21:32)
[2019-07-06] MEDS: HYDROXYUREA 500 MG CAPSULE PO SCH ×3 (06:40→21:33)
[2019-07-06] MEDS: GABAPENTIN 300 MG CAPSULE PO SCH ×3 (06:40→21:33)
[2019-07-06 07:45] LABS: ALBUMIN 3.7 g/dL (3.5-5.0); ALKALINE PHOSPHATASE 151 U/L (38-126); ANION GAP 6 (5-19); ASPARTATE AMINO TRANSFERASE 57 U/L (14-36); BILIRUBIN,DIRECT 0.5 mg/dL (0.0-0.4); BILIRUBIN,TOTAL 2.6 mg/dL (0.2-1.3); BLOOD UREA NITROGEN 11 mg/dL (7-20); CALCIUM 8.8 mg/dL (8.4-10.2); CARBON DIOXIDE 27 mmol/L (22-30); CHLORIDE 105 mmol/L (98-107); GLUCOSE 112 mg/dL (75-110); POTASSIUM 4.7 mmol/L (3.6-5.0); TOTAL PROTEIN 6.6 g/dL (6.3-8.2)
--- NOTE | 2019-07-06 08:49 | PDOC PROGRESS REPORT ---
Subjective Progress Note for:: 07/06/19 Subjective:: Patient walked in [place] again yesterday. Denies major changes, just ankles continue to swell. Reason For Visit: SICKLE CELL CRISIS Physical Exam Vital Signs: Temp Pulse Resp BP Pulse Ox 99.1 F 84 20 100/53 L 99 07/06/19 08:03 07/06/19 08:03 07/06/19 08:03 07/06/19 08:03 07/06/19 08:03 Intake & Output 07/05/19 07/06/19 07/07/19 06:59 06:59 06:59 Intake Total 5100 5687 1000 Balance 5100 5687 1000 Weight 75.6 kg 71.8 kg General appearance: PRESENT: no acute distress, well-developed, well-nourished Head exam: PRESENT: normocephalic Respiratory exam: PRESENT: unlabored Extremities exam: PRESENT: +1 edema Neurological exam: PRESENT: alert, awake Psychiatric exam: PRESENT: appropriate affect Skin exam: PRESENT: normal color Results Laboratory Results: 07/06/19 06:45 07/06/19 07/06/19 06:45 06:45 WBC Cancelled RBC Cancelled Hgb Cancelled Hct Cancelled MCV Cancelled MCH Cancelled MCHC Cancelled RDW Cancelled Plt Count Cancelled Seg Neutrophils % Cancelled Sodium 138.0 Potassium 4.7 Chloride 105 Carbon Dioxide 27 Anion Gap 6 BUN 11 Creatinine 0.66 Est GFR ( Amer) > 60 Glucose 112 H Calcium 8.8 Total Bilirubin 2.6 H AST 57 H Alkaline Phosphatase 151 H Total Protein 6.6 Albumin 3.7 06/23/19 06/23/19 00:05 00:05 Creatine Kinase 28 L Troponin I < 0.012 Impressions: Chest X-Ray 06/22/19 19:55 IMPRESSION: Patchy left basilar opacity. Consider atelectasis or pneumonia to include aspiration. copyright 2011 [employer]- All Rights Reserved Assessment & Plan - Diagnosis (1) Vaso-occlusive sickle cell crisis Is this a current diagnosis for this admission?: Yes Plan: Await labs, but overall pain appears to be improving. (2) Anemia, sickle cell with crisis Is this a current diagnosis for this admission?: Yes Plan: Will decrease Dilaudid today. Continue to walk in [place]. She is at high risk for DVT. I will add Heparin SC TID for DVT prophylaxis. (3) Dehydration Is this a current diagnosis for this admission?: Yes (4) Iron overload due to repeated red blood cell transfusions Is this a current diagnosis for this admission?: Yes Plan: Continue Jadenu and try to avoid transfusions. - Time Time Spent with patient: 15-24 minutes
[2019-07-06] MEDS: FOLIC ACID 1 MG TABLET PO SCH (09:22)
[2019-07-06] MEDS: OXYCODONE HCL SR 10 MG TABLET PO SCH ×2 (09:22→21:33)
[2019-07-06 09:31] LABS: WHITE BLOOD COUNT 4.4 10^3/uL (4.0-10.5)
[2019-07-06 09:32] LABS: HEMATOCRIT 16.6 % (36.0-47.0); MEAN CORPUSCULAR HEMOGLOBIN 43.2 pg (27.0-33.4); MEAN CORPUSCULAR HGB CONC 34.9 g/dL (32.0-36.0); MEAN CORPUSCULAR VOLUME 124 fl (80-97); PLATELET COUNT 150 10^3/uL (150-450); RED BLOOD COUNT 1.34 10^6/uL (3.72-5.28); RED CELL DISTRIBUTION WIDTH 24.7 % (11.5-14.0)
[2019-07-06 09:33] LABS: HEMOGLOBIN 5.8 g/dL (12.0-15.5)
[2019-07-06 10:01] LABS: ABSOLUTE LYMPHOCYTES# (MANUAL) 2.1 10^3/uL (0.5-4.7); ABSOLUTE MONOCYTES # (MANUAL) 0.2 10^3/uL (0.1-1.4); ANISOCYTOSIS 3+; BASOPHILS % (MANUAL) 0 % (0-2); EOSINOPHILS % (MANUAL) 5 % (0-6); LYMPHOCYTES % (MANUAL) 48 % (13-45); MONOCYTES % (MANUAL) 5 % (3-13); NUCLEATED RED BLOOD CELLS 5 /100 WBC (0); OVALOCYTES 1+; POIKILOCYTOSIS 1+; POLYCHROMASIA 1+; SEGMENTED NEUTROPHILS % (MAN) 42 % (42-78); TOTAL CELLS COUNTED 100
[2019-07-06 10:02] LABS: PLATELET COMMENT ADEQUATE; SCHISTOCYTES 1+
[2019-07-06] MEDS: HEPARIN SOD (PORCINE) 5,000 UNIT/ML 1 ML VIAL SUBCUT SCH ×2 (13:11→21:47)
--- NOTE | 2019-07-06 20:10 | PDOC PROGRESS REPORT ---
Subjective Progress Note for:: 07/06/19 Subjective:: Patient seen by the bedside,There is no new complaints except for pain Reason For Visit: SICKLE CELL CRISIS Physical Exam Vital Signs: Temp Pulse Resp BP Pulse Ox 99.1 F 93 18 110/70 98 07/06/19 16:28 07/06/19 16:28 07/06/19 16:28 07/06/19 16:28 07/06/19 16:28 Intake & Output 07/05/19 07/06/19 07/07/19 06:59 06:59 06:59 Intake Total 5100 5687 2780 Balance 5100 5687 2780 Weight 75.6 kg 71.8 kg General appearance: PRESENT: no acute distress Eye exam: PRESENT: PERRLA Respiratory exam: PRESENT: clear to auscultation carolyn Cardiovascular exam: PRESENT: +S1, +S2 GI/Abdominal exam: PRESENT: rigid Neurological exam: PRESENT: alert Results Laboratory Results: 07/06/19 08:12 07/06/19 06:45 07/06/19 07/06/19 07/06/19 06:45 06:45 08:12 WBC Cancelled 4.4 RBC Cancelled 1.34 L Hgb Cancelled 5.8 L Hct Cancelled 16.6 L MCV Cancelled 124 H MCH Cancelled 43.2 H MCHC Cancelled 34.9 RDW Cancelled 24.7 H Plt Count Cancelled 150 Seg Neutrophils % Cancelled Not Reportable Sodium 138.0 Potassium 4.7 Chloride 105 Carbon Dioxide 27 Anion Gap 6 BUN 11 Creatinine 0.66 Est GFR ( Amer) > 60 Glucose 112 H Calcium 8.8 Total Bilirubin 2.6 H AST 57 H Alkaline Phosphatase 151 H Total Protein 6.6 Albumin 3.7 06/23/19 06/23/19 00:05 00:05 Creatine Kinase 28 L Troponin I < 0.012 Impressions: Chest X-Ray 06/22/19 19:55 IMPRESSION: Patchy left basilar opacity. Consider atelectasis or pneumonia to include aspiration. copyright 2011 [employer]- All Rights Reserved Assessment & Plan - Diagnosis (1) Vaso-occlusive sickle cell crisis Is this a current diagnosis for this admission?: Yes (2) Sickle cell anemia Is this a current diagnosis for this admission?: Yes (3) Hemolytic anemia Qualifiers: Hemolytic anemia type: other hemoglobinopathy Qualified Code(s): D58.2 - Other hemoglobinopathies Is this a current diagnosis for this admission?: Yes - Time Time Spent with patient: 15-24 minutes
[2019-07-07] MEDS: HYDROMORPHONE HCL INJ/PF 2 MG/ML AMPULE IV PRN ×11 (01:38→22:26)
[2019-07-07] MEDS: TOBRAMYCIN SULFATE/DEXAMETH OPH OINTMENT 3.5 GM OU SCH ×4 (01:39→13:14)
[2019-07-07] MEDS: DIPHENHYDRAMINE HCL 50 MG/ML VIAL IV PRN ×4 (01:39→20:37)
[2019-07-07] MEDS: HYDROXYUREA 500 MG CAPSULE PO SCH ×3 (05:44→22:27)
[2019-07-07] MEDS: GABAPENTIN 300 MG CAPSULE PO SCH ×3 (05:44→22:27)
[2019-07-07] MEDS: HEPARIN SOD (PORCINE) 5,000 UNIT/ML 1 ML VIAL SUBCUT SCH ×3 (05:45→22:27)
[2019-07-07] MEDS: FOLIC ACID 1 MG TABLET PO SCH (09:25)
[2019-07-07] MEDS: OXYCODONE HCL SR 10 MG TABLET PO SCH ×2 (09:26→22:27)
[2019-07-07] MEDS: 1/2 NORMAL SALINE 1,000 ML IV PRN ×3 (10:11→22:30)
--- NOTE | 2019-07-07 15:00 | PDOC PROGRESS REPORT ---
Subjective Progress Note for:: 07/07/19 Subjective:: Patient continue to express pain at multiple sites related to her Sickle cell disease process. Her hemoglobin is at 5.8 g/dL. She denied any chest pain or difficulty with breathing presently. She informed me that she is usually transfused below 6 g/dL. No fever or chills. No tachycardia. Reason For Visit: SICKLE CELL CRISIS Physical Exam Vital Signs: Temp Pulse Resp BP Pulse Ox 98.5 F 81 16 98/63 L 100 07/07/19 11:48 07/07/19 11:48 07/07/19 11:48 07/07/19 11:48 07/07/19 11:48 Intake & Output 07/06/19 07/07/19 07/08/19 06:59 06:59 06:59 Intake Total 5687 4605 Balance 5687 4605 Weight 71.8 kg 75 kg General appearance: PRESENT: mild distress - related to her SCD pain crisis Head exam: PRESENT: atraumatic, normocephalic Eye exam: PRESENT: conjunctiva pink. ABSENT: scleral icterus Ear exam: PRESENT: normal external ear exam Mouth exam: PRESENT: moist Respiratory exam: PRESENT: clear to auscultation carolyn Cardiovascular exam: PRESENT: RRR. ABSENT: diastolic murmur, rubs, systolic murmur Vascular exam: ABSENT: pallor GI/Abdominal exam: PRESENT: normal bowel sounds, soft. ABSENT: distended, guar ding, mass, organolmegaly, rebound, tenderness Extremities exam: ABSENT: pedal edema Neurological exam: PRESENT: alert, awake, oriented to person, oriented to place, oriented to time, oriented to situation, CN II-XII grossly intact. ABSENT: motor sensory deficit Psychiatric exam: PRESENT: appropriate affect, normal mood. ABSENT: homicidal ideation, suicidal ideation Skin exam: PRESENT: dry, warm Results Laboratory Results: 07/06/19 08:12 07/06/19 06:45 06/23/19 06/23/19 00:05 00:05 Creatine Kinase 28 L Troponin I < 0.012 Impressions: Chest X-Ray 06/22/19 19:55 IMPRESSION: Patchy left basilar opacity. Consider atelectasis or pneumonia to include aspiration. copyright 2010 [employer]- All Rights Reserved Assessment & Plan - Diagnosis (1) Hb-SS disease with vaso-occlusive crisis Is this a current diagnosis for this admission?: Yes Plan: Continue current medication and supportive care plan. (2) Sickle cell anemia with pain Is this a current diagnosis for this admission?: Yes Plan: Continue current medication and supportive care plan. (3) Sickle-cell anemia with crisis Is this a current diagnosis for this admission?: Yes Plan: Continue current medication and supportive care plan. (4) Iron overload due to repeated red blood cell transfusions Is this a current diagnosis for this admission?: Yes Plan: Continue current medication and supportive care plan. (5) Narcotic dependency, continuous Is this a current diagnosis for this admission?: Yes Plan: Continue current medication and supportive care plan. - Time Time Spent with patient: 35 or more minutes Level of Care: TELE Medications reviewed and adjusted accordingly: Yes Anticipated discharge: Home with Homehealth Within: Other - Inpatient Certification Based on my medical assessment, after consideration of the patient's comorbidities, presenting symptoms, or acuity I expect that the services needed warrant INPATIENT care.: Yes I certify that my determination is in accordance with my understanding of Medicare's requirements for reasonable and necessary INPATIENT services [42 CFR 412.3e].: Yes Medical Necessity: Significant Comorbidiites Make Outpatient Treatment Too Risky, Need Close Monitoring Due to Risk of Patient Decompensation, Need For Continuous Telemetry Monitoring, Need for Pain Control, Risk of Complication if Not Cared For in Hospital, Risk of Diagnosis Which Will Require Inpatient Eval/Care/Monitoring Post Hospital Care: D/C Package Crimper Documentation - Plan Summary Plan Summary: Continue current medication and supportive care plan. I discussed case with Dr. Ramirez, girls tennis coach, and she is in agreement to hold transfusion in view of patient's iron overload issue and absence of clinical indication for transfusion . We will continue to monitor her status.
--- NOTE | 2019-07-07 17:51 | PDOC PROGRESS REPORT ---
Subjective Progress Note for:: 07/07/19 Subjective:: Patient states that her pain is worse today. She has not been using the PRN oxycodone. She has not yet been up walking. Reason For Visit: SICKLE CELL CRISIS Physical Exam Vital Signs: Temp Pulse Resp BP Pulse Ox 98.8 F 86 17 99/51 L 97 07/07/19 15:07 07/07/19 15:07 07/07/19 15:07 07/07/19 15:07 07/07/19 15:07 Intake & Output 07/06/19 07/07/19 07/08/19 06:59 06:59 06:59 Intake Total 5687 4605 910 Balance 5687 4605 910 Weight 71.8 kg 75 kg General appearance: PRESENT: no acute distress Exam: In obvious pain and discomfort. Head exam: PRESENT: normocephalic Mouth exam: PRESENT: moist Respiratory exam: PRESENT: unlabored Extremities exam: PRESENT: +1 edema Neurological exam: PRESENT: alert, awake Psychiatric exam: PRESENT: appropriate affect Skin exam: PRESENT: normal color Results Laboratory Results: 07/06/19 08:12 07/06/19 06:45 06/23/19 06/23/19 00:05 00:05 Creatine Kinase 28 L Troponin I < 0.012 Impressions: Chest X-Ray 06/22/19 19:55 IMPRESSION: Patchy left basilar opacity. Consider atelectasis or pneumonia to include aspiration. copyright 2010 [employer]- All Rights Reserved Assessment & Plan - Diagnosis (1) Vaso-occlusive sickle cell crisis Is this a current diagnosis for this admission?: Yes (2) Anemia, sickle cell with crisis Is this a current diagnosis for this admission?: Yes (3) Dehydration Is this a current diagnosis for this admission?: Yes (4) Iron overload due to repeated red blood cell transfusions Is this a current diagnosis for this admission?: Yes - Time Time Spent with patient: Less than 15 minutes - Plan Summary Plan Summary: No changes today. Patient was discussed with primary team, but I see no indication for blood transfusion. Overall, labs are stable/improved.
[2019-07-08] MEDS: HYDROMORPHONE HCL INJ/PF 2 MG/ML AMPULE IV PRN ×12 (00:35→23:14)
[2019-07-08] MEDS: DIPHENHYDRAMINE HCL 50 MG/ML VIAL IV PRN ×4 (02:28→21:00)
[2019-07-08] MEDS: 1/2 NORMAL SALINE 1,000 ML IV PRN ×3 (04:28→16:39)
[2019-07-08] MEDS: HEPARIN SOD (PORCINE) 5,000 UNIT/ML 1 ML VIAL SUBCUT SCH ×3 (06:30→21:20)
[2019-07-08] MEDS: HYDROXYUREA 500 MG CAPSULE PO SCH ×3 (06:31→21:22)
[2019-07-08] MEDS: GABAPENTIN 300 MG CAPSULE PO SCH ×3 (06:31→21:19)
[2019-07-08] MEDS: OXYCODONE HCL SR 10 MG TABLET PO SCH ×2 (10:01→21:19)
[2019-07-08] MEDS: FOLIC ACID 1 MG TABLET PO SCH (10:01)
[2019-07-08] MEDS ORDERED: DIPHENHYDRAMINE HCL 2% CREAM 30 GM TP PRN (13:18)
--- NOTE | 2019-07-08 13:20 | PDOC PROGRESS REPORT ---
Subjective Progress Note for:: 07/08/19 Subjective:: Patient reported facia, extremities and chest wall itching. No rash, fever, or chills. No chest pain or difficulty with breathing. Reason For Visit: SICKLE CELL CRISIS Physical Exam Vital Signs: Temp Pulse Resp BP Pulse Ox 98.2 F 79 19 99/65 L 100 07/08/19 08:09 07/08/19 08:09 07/08/19 08:09 07/08/19 08:09 07/08/19 08:09 Intake & Output 07/07/19 07/08/19 07/09/19 06:59 06:59 06:59 Intake Total 4605 2743 918 Balance 4605 2743 918 Weight 75 kg 72.8 kg Physical Exam: General appearance: PRESENT: mild distress - related to her SCD pain crisis Head exam: PRESENT: atraumatic, normocephalic Eye exam: PRESENT: conjunctiva pink. ABSENT: pallor, scleral icterus Ear exam: PRESENT: normal external ear exam Mouth exam: PRESENT: moist Respiratory exam: PRESENT: clear to auscultation carolyn Cardiovascular exam: PRESENT: RRR. ABSENT: diastolic murmur, rubs, systolic murmur GI/Abdominal exam: PRESENT: normal bowel sounds, soft. ABSENT: distended, guarding, mass, organomegaly, rebound, tenderness Extremities exam: ABSENT: pedal edema Neurological exam: PRESENT: alert, awake, oriented to person, oriented to place, oriented to time, oriented to situation, CN II-XII grossly intact. ABSENT: motor sensory deficit Psychiatric exam: PRESENT: appropriate affect, normal mood. ABSENT: homicidal ideation, suicidal ideation Skin exam: PRESENT: dry, warm Results Laboratory Results: 07/06/19 08:12 07/06/19 06:45 06/23/19 06/23/19 00:05 00:05 Creatine Kinase 28 L Troponin I < 0.012 Impressions: Chest X-Ray 06/22/19 19:55 IMPRESSION: Patchy left basilar opacity. Consider atelectasis or pneumonia to include aspiration. copyright 2010 [employer]- All Rights Reserved Assessment & Plan - Diagnosis (1) Hb-SS disease with vaso-occlusive crisis Is this a current diagnosis for this admission?: Yes (2) Sickle cell anemia with pain Is this a current diagnosis for this admission?: Yes (3) Sickle-cell anemia with crisis Is this a current diagnosis for this admission?: Yes (4) Iron overload due to repeated red blood cell transfusions Is this a current diagnosis for this admission?: Yes (5) Narcotic dependency, continuous Is this a current diagnosis for this admission?: Yes - Time Time Spent with patient: 25-34 minutes Level of Care: TELE Medications reviewed and adjusted accordingly: Yes Anticipated discharge: Home with Homehealth Within: Other - Inpatient Certification Based on my medical assessment, after consideration of the patient's comorbidities, presenting symptoms, or acuity I expect that the services needed warrant INPATIENT care.: Yes I certify that my determination is in accordance with my understanding of Medicare's requirements for reasonable and necessary INPATIENT services [42 CFR 412.3e].: Yes Medical Necessity: Significant Comorbidiites Make Outpatient Treatment Too Risky, Need Close Monitoring Due to Risk of Patient Decompensation, Need For IV Fluids, Need For Continuous Telemetry Monitoring, Need for Pain Control, Risk of Complication if Not Cared For in Hospital, Risk of Diagnosis Which Will Require Inpatient Eval/Care/Monitoring Post Hospital Care: 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 Benadryl 2% cream topically prn to affected areas for itching management. Obtain CBC with diff.
[2019-07-09] MEDS: HYDROMORPHONE HCL INJ/PF 2 MG/ML AMPULE IV PRN ×11 (01:15→23:11)
[2019-07-09] MEDS: DIPHENHYDRAMINE HCL 50 MG/ML VIAL IV PRN ×5 (03:44→21:06)
[2019-07-09] MEDS: 1/2 NORMAL SALINE 1,000 ML IV PRN ×4 (03:48→23:45)
[2019-07-09] MEDS: HYDROXYUREA 500 MG CAPSULE PO SCH ×3 (05:53→21:19)
[2019-07-09] MEDS: GABAPENTIN 300 MG CAPSULE PO SCH ×3 (05:53→21:06)
[2019-07-09] MEDS: HEPARIN SOD (PORCINE) 5,000 UNIT/ML 1 ML VIAL SUBCUT SCH ×3 (05:59→21:06)
[2019-07-09 08:11] LABS: HEMATOCRIT 17.2 % (36.0-47.0); MEAN CORPUSCULAR HEMOGLOBIN 43.5 pg (27.0-33.4); MEAN CORPUSCULAR HGB CONC 35.2 g/dL (32.0-36.0); MEAN CORPUSCULAR VOLUME 124 fl (80-97); PLATELET COUNT 166 10^3/uL (150-450); RED BLOOD COUNT 1.39 10^6/uL (3.72-5.28); RED CELL DISTRIBUTION WIDTH 23.8 % (11.5-14.0); WHITE BLOOD COUNT 4.1 10^3/uL (4.0-10.5)
[2019-07-09 08:14] LABS: ALBUMIN 3.9 g/dL (3.5-5.0); ALKALINE PHOSPHATASE 139 U/L (38-126); ANION GAP 5 (5-19); ASPARTATE AMINO TRANSFERASE 53 U/L (14-36); BILIRUBIN,DIRECT 0.2 mg/dL (0.0-0.4); BILIRUBIN,TOTAL 2.7 mg/dL (0.2-1.3); BLOOD UREA NITROGEN 10 mg/dL (7-20); CALCIUM 8.9 mg/dL (8.4-10.2); CARBON DIOXIDE 29 mmol/L (22-30); CHLORIDE 103 mmol/L (98-107); GLUCOSE 89 mg/dL (75-110); POTASSIUM 4.5 mmol/L (3.6-5.0); TOTAL PROTEIN 6.7 g/dL (6.3-8.2)
--- NOTE | 2019-07-09 08:15 | PDOC PROGRESS REPORT ---
Subjective Progress Note for:: 07/09/19 Subjective:: Patient having some left-sided facial itching, and there is a little bit of a rash. Today I will change Benadryl frequencies from every 6 hours to every 4 hours. Reason For Visit: SICKLE CELL CRISIS Physical Exam Vital Signs: Temp Pulse Resp BP Pulse Ox 98.5 F 85 17 101/57 L 99 07/08/19 19:40 07/09/19 02:00 07/09/19 00:33 07/09/19 00:33 07/09/19 00:33 Intake & Output 07/08/19 07/09/19 07/10/19 06:59 06:59 06:59 Intake Total 2743 4204 Balance 2743 4204 Weight 72.8 kg 72.8 kg General appearance: PRESENT: no acute distress, well-developed, well-nourished Head exam: PRESENT: atraumatic, normocephalic Eye exam: PRESENT: conjunctiva pink, EOMI, PERRLA. ABSENT: scleral icterus Ear exam: PRESENT: normal external ear exam Mouth exam: PRESENT: moist, tongue midline Neck exam: ABSENT: carotid bruit, JVD, lymphadenopathy, thyromegaly Respiratory exam: PRESENT: clear to auscultation carolyn. ABSENT: rales, rhonchi, wheezes Cardiovascular exam: PRESENT: RRR. ABSENT: diastolic murmur, rubs, systolic murmur Pulses: PRESENT: normal dorsalis pedis pul Vascular exam: PRESENT: normal capillary refill GI/Abdominal exam: PRESENT: normal bowel sounds, soft. ABSENT: distended, guarding, mass, organolmegaly, rebound, tenderness Rectal exam: PRESENT: deferred Extremities exam: PRESENT: full ROM. ABSENT: calf tenderness, clubbing, pedal edema Neurological exam: PRESENT: alert, awake, oriented to person, oriented to place, oriented to time, oriented to situation, CN II-XII grossly intact. ABSENT: motor sensory deficit Psychiatric exam: PRESENT: appropriate affect, normal mood. ABSENT: homicidal ideation, suicidal ideation Skin exam: PRESENT: dry, intact, warm. ABSENT: cyanosis, rash Results Laboratory Results: 06/23/19 06/23/19 00:05 00:05 Creatine Kinase 28 L Troponin I < 0.012 Impressions: Chest X-Ray 06/22/19 19:55 IMPRESSION: Patchy left basilar opacity. Consider atelectasis or pneumonia to include aspiration. copyright 2010 [employer]- All Rights Reserved Assessment & Plan - Diagnosis (1) Vaso-occlusive sickle cell crisis Is this a current diagnosis for this admission?: Yes Plan: Continue with current therapy (2) Anemia Qualifiers: 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 Qualified Code(s): D58.2 - Other hemoglobinopathies Is this a current diagnosis for this admission?: Yes Plan: Hemoglobin stable - Time Time Spent with patient: 15-24 minutes
[2019-07-09 09:09] LABS: ABSOLUTE LYMPHOCYTES# (MANUAL) 2.1 10^3/uL (0.5-4.7); ABSOLUTE MONOCYTES # (MANUAL) 0.2 10^3/uL (0.1-1.4); BASOPHILS % (MANUAL) 0 % (0-2); EOSINOPHILS % (MANUAL) 4 % (0-6); LYMPHOCYTES % (MANUAL) 51 % (13-45); MONOCYTES % (MANUAL) 5 % (3-13); NUCLEATED RED BLOOD CELLS 9 /100 WBC (0); SEGMENTED NEUTROPHILS % (MAN) 40 % (42-78); TOTAL CELLS COUNTED 100
[2019-07-09 09:11] LABS: ANISOCYTOSIS 3+; OVALOCYTES 1+; POLYCHROMASIA SLIGHT; SCHISTOCYTES 1+; TARGET CELLS 1+
[2019-07-09 09:12] LABS: BURR CELLS SLIGHT; PLATELET COMMENT ADEQUATE; POIKILOCYTOSIS 1+; TEAR DROP CELLS SLIGHT
[2019-07-09] MEDS: FOLIC ACID 1 MG TABLET PO SCH (09:22)
[2019-07-09] MEDS: OXYCODONE HCL SR 10 MG TABLET PO SCH ×2 (09:22→21:13)
[2019-07-09] MEDS ORDERED: HYDROMORPHONE HCL INJ/PF 2 MG/ML AMPULE IV PRN (12:49)
--- NOTE | 2019-07-09 21:30 | PDOC PROGRESS REPORT ---
Subjective Progress Note for:: 07/09/19 Subjective:: She has nonspecific erythema of the face Reason For Visit: SICKLE CELL CRISIS Physical Exam Vital Signs: Temp Pulse Resp BP Pulse Ox 98.4 F 83 14 92/52 L 100 07/09/19 17:28 07/09/19 17:28 07/09/19 17:28 07/09/19 17:28 07/09/19 20:13 Intake & Output 07/08/19 07/09/19 07/10/19 06:59 06:59 06:59 Intake Total 2743 4204 3769 Balance 2743 4204 3769 Weight 72.8 kg 72.8 kg General appearance: PRESENT: no acute distress Eye exam: PRESENT: PERRLA Respiratory exam: PRESENT: clear to auscultation carolyn Cardiovascular exam: PRESENT: +S1, +S2 Neurological exam: PRESENT: alert Results Laboratory Results: 07/09/19 07:35 07/09/19 07:35 07/09/19 07/09/19 07:35 07:35 WBC 4.1 RBC 1.39 L Hgb 6.0 L Hct 17.2 L MCV 124 H MCH 43.5 H MCHC 35.2 RDW 23.8 H Plt Count 166 Seg Neutrophils % Not Reportable Sodium 137.4 Potassium 4.5 Chloride 103 Carbon Dioxide 29 Anion Gap 5 BUN 10 Creatinine 0.61 Est GFR ( Amer) > 60 Glucose 89 Calcium 8.9 Total Bilirubin 2.7 H AST 53 H Alkaline Phosphatase 139 H Total Protein 6.7 Albumin 3.9 06/23/19 06/23/19 00:05 00:05 Creatine Kinase 28 L Troponin I < 0.012 Impressions: Chest X-Ray 06/22/19 19:55 IMPRESSION: Patchy left basilar opacity. Consider atelectasis or pneumonia to include aspiration. copyright 2010 [employer]- All Rights Reserved Assessment & Plan - Diagnosis (1) Vaso-occlusive sickle cell crisis Is this a current diagnosis for this admission?: Yes (2) Sickle cell anemia Is this a current diagnosis for this admission?: Yes (3) Hemolytic anemia Qualifiers: Hemolytic anemia type: other hemoglobinopathy Qualified Code(s): D58.2 - Other hemoglobinopathies Is this a current diagnosis for this admission?: Yes - Time Time Spent with patient: Less than 15 minutes
[2019-07-10] MEDS: DIPHENHYDRAMINE HCL 50 MG/ML VIAL IV PRN ×6 (01:46→23:36)
[2019-07-10] MEDS: HYDROMORPHONE HCL INJ/PF 2 MG/ML AMPULE IV PRN ×11 (01:47→23:38)
[2019-07-10] MEDS: GABAPENTIN 300 MG CAPSULE PO SCH ×3 (05:47→21:29)
[2019-07-10] MEDS: HEPARIN SOD (PORCINE) 5,000 UNIT/ML 1 ML VIAL SUBCUT SCH ×3 (05:47→21:34)
[2019-07-10] MEDS: HYDROXYUREA 500 MG CAPSULE PO SCH ×3 (05:58→21:29)
--- NOTE | 2019-07-10 08:14 | PDOC PROGRESS REPORT ---
Subjective Progress Note for:: 07/10/19 Subjective:: Patient complains of face swelling. She states that this has happened before when she is under stress. There is itching and dyspnea. The benadryl is helping, but when it wears off, symptoms return. She has not been able to walk in [place] for the last 24-48 hours. Pain is unchanged. Reason For Visit: SICKLE CELL CRISIS Physical Exam Vital Signs: Temp Pulse Resp BP Pulse Ox 98.3 F 82 17 95/57 L 100 07/09/19 23:55 07/10/19 07:00 07/09/19 23:55 07/09/19 23:55 07/09/19 23:55 Intake & Output 07/09/19 07/10/19 07/11/19 06:59 06:59 06:59 Intake Total 4204 5369 Balance 4204 5369 Weight 72.8 kg 74.8 kg General appearance: PRESENT: no acute distress Head exam: PRESENT: other - facial swelling throughout. No rash. Eye exam: PRESENT: EOMI, PERRLA Mouth exam: PRESENT: moist Respiratory exam: PRESENT: clear to auscultation carolyn, unlabored Cardiovascular exam: PRESENT: RRR Extremities exam: ABSENT: pedal edema Neurological exam: PRESENT: alert, awake, oriented to person, oriented to place, oriented to time, oriented to situation Psychiatric exam: PRESENT: appropriate affect Skin exam: PRESENT: normal color Results Laboratory Results: 07/09/19 07:35 07/09/19 07:35 07/09/19 07/09/19 07:35 07:35 WBC 4.1 RBC 1.39 L Hgb 6.0 L Hct 17.2 L MCV 124 H MCH 43.5 H MCHC 35.2 RDW 23.8 H Plt Count 166 Seg Neutrophils % Not Reportable Sodium 137.4 Potassium 4.5 Chloride 103 Carbon Dioxide 29 Anion Gap 5 BUN 10 Creatinine 0.61 Est GFR ( Amer) > 60 Glucose 89 Calcium 8.9 Total Bilirubin 2.7 H AST 53 H Alkaline Phosphatase 139 H Total Protein 6.7 Albumin 3.9 06/23/19 06/23/19 00:05 00:05 Creatine Kinase 28 L Troponin I < 0.012 Impressions: Chest X-Ray 06/22/19 19:55 IMPRESSION: Patchy left basilar opacity. Consider atelectasis or pneumonia to include aspiration. copyright 2010 [email or web address]- All Rights Reserved Assessment & Plan - Diagnosis (1) Vaso-occlusive sickle cell crisis Is this a current diagnosis for this admission?: Yes Plan: Continue fluids and O2. Pain is slowly improving. Will decrease her Dilaudid dose today. (2) Anemia, sickle cell with crisis Is this a current diagnosis for this admission?: Yes Plan: HGB has been VERY stable. No evidence to suggest worsening crisis. No indication for blood transfusion. (3) Dehydration Is this a current diagnosis for this admission?: Yes (4) Iron overload due to repeated red blood cell transfusions Is this a current diagnosis for this admission?: Yes Plan: Continue Jadenu - Time Time Spent with patient: 15-24 minutes - Plan Summary Plan Summary: I have again encouraged her to walk in halls. Hopefully, plan for discharge by the end of the week.
[2019-07-10] MEDS: 1/2 NORMAL SALINE 1,000 ML IV PRN ×2 (08:20→14:45)
[2019-07-10] MEDS: FOLIC ACID 1 MG TABLET PO SCH (10:23)
[2019-07-10] MEDS: OXYCODONE HCL SR 10 MG TABLET PO SCH ×2 (10:23→21:29)
[2019-07-10] MEDS ORDERED: FUROSEMIDE INJ/PF 40 MG/4 ML SDV IV ONE (16:00)
--- NOTE | 2019-07-10 21:47 | PDOC PROGRESS REPORT ---
Subjective Progress Note for:: 07/10/19 Subjective:: Patient seen by the bedside she has mild facial swelling most likely from IV fluid Reason For Visit: SICKLE CELL CRISIS Physical Exam Vital Signs: Temp Pulse Resp BP Pulse Ox 98.4 F 89 17 96/53 L 96 07/10/19 15:59 07/10/19 15:59 07/10/19 15:59 07/10/19 15:59 07/10/19 15:59 Intake & Output 07/09/19 07/10/19 07/11/19 06:59 06:59 06:59 Intake Total 4204 6369 1523 Balance 4204 6369 1523 Weight 72.8 kg 74.8 kg General appearance: PRESENT: no acute distress Eye exam: PRESENT: PERRLA Respiratory exam: PRESENT: clear to auscultation carolyn Cardiovascular exam: PRESENT: +S1, +S2 Results Laboratory Results: 07/09/19 07:35 07/09/19 07:35 06/23/19 06/23/19 00:05 00:05 Creatine Kinase 28 L Troponin I < 0.012 Impressions: Chest X-Ray 06/22/19 19:55 IMPRESSION: Patchy left basilar opacity. Consider atelectasis or pneumonia to include aspiration. copyright 2010 [employer]- All Rights Reserved Assessment & Plan - Diagnosis (1) Vaso-occlusive sickle cell crisis Is this a current diagnosis for this admission?: Yes (2) Sickle cell anemia Is this a current diagnosis for this admission?: Yes (3) Hemolytic anemia Qualifiers: Hemolytic anemia type: other hemoglobinopathy Qualified Code(s): D58.2 - Other hemoglobinopathies Is this a current diagnosis for this admission?: Yes - Time Time Spent with patient: Less than 15 minutes
[2019-07-11] MEDS: HYDROMORPHONE HCL INJ/PF 2 MG/ML AMPULE IV PRN ×9 (01:45→23:05)
[2019-07-11] MEDS: DIPHENHYDRAMINE HCL 50 MG/ML VIAL IV PRN ×5 (05:05→22:58)
[2019-07-11] MEDS: GABAPENTIN 300 MG CAPSULE PO SCH ×3 (05:05→21:06)
[2019-07-11] MEDS: HYDROXYUREA 500 MG CAPSULE PO SCH ×3 (05:07→21:06)
--- NOTE | 2019-07-11 08:21 | PDOC PROGRESS REPORT ---
Subjective Progress Note for:: 07/11/19 Subjective:: Patient still complaining of swollen, itchy face. Otherwise, no complaints, except no change in pain. She tells me that she did walk in [place] yesterday. Reason For Visit: SICKLE CELL CRISIS Physical Exam Vital Signs: Temp Pulse Resp BP Pulse Ox 98.4 F 80 16 112/60 95 07/11/19 01:00 07/11/19 02:00 07/11/19 01:00 07/11/19 01:00 07/11/19 01:00 Intake & Output 07/10/19 07/11/19 07/12/19 06:59 06:59 06:59 Intake Total 6369 3123 Balance 6369 3123 Weight 74.8 kg 73.5 kg General appearance: PRESENT: well-developed, well-nourished Eye exam: PRESENT: EOMI, periorbital swelling Respiratory exam: PRESENT: unlabored Extremities exam: ABSENT: pedal edema Neurological exam: PRESENT: alert, awake Psychiatric exam: PRESENT: appropriate affect Skin exam: PRESENT: normal color Results Laboratory Results: 07/09/19 07:35 07/09/19 07:35 06/23/19 06/23/19 00:05 00:05 Creatine Kinase 28 L Troponin I < 0.012 Impressions: Chest X-Ray 06/22/19 19:55 IMPRESSION: Patchy left basilar opacity. Consider atelectasis or pneumonia to include aspiration. copyright 2011 [employer]- All Rights Reserved Assessment & Plan - Diagnosis (1) Vaso-occlusive sickle cell crisis Is this a current diagnosis for this admission?: Yes Plan: Will continue to wean her Dilaudid. Plan to decrease dose again tomorrow. Hopefully, patient will be discharge Tuesday. (2) Anemia, sickle cell with crisis Is this a current diagnosis for this admission?: Yes Plan: HGB has remained very stable. No indication for blood transfusion. (3) Dehydration Is this a current diagnosis for this admission?: Yes (4) Iron overload due to repeated red blood cell transfusions Is this a current diagnosis for this admission?: Yes Plan: Continue Jadenu. - Time Time Spent with patient: 15-24 minutes
[2019-07-11] MEDS: OXYCODONE HCL SR 10 MG TABLET PO SCH ×2 (10:29→21:06)
[2019-07-11] MEDS: FOLIC ACID 1 MG TABLET PO SCH (10:29)
[2019-07-11] MEDS: HEPARIN SOD (PORCINE) 5,000 UNIT/ML 1 ML VIAL SUBCUT SCH ×3 (14:51→23:04)
[2019-07-11] MEDS: 1/2 NORMAL SALINE 1,000 ML IV PRN (14:57)
[2019-07-11] MEDS ORDERED: FUROSEMIDE INJ/PF 40 MG/4 ML SDV IV ONE (16:30)
--- NOTE | 2019-07-11 18:34 | PDOC PROGRESS REPORT ---
Subjective Progress Note for:: 07/11/19 Subjective:: She complained of sore throat, on inspection of the throat I did not appreciate any evidence of inflammatory process. She has facial swelling, she has been on normal saline at a higher infusion rate this was decreased to 50 cc/h, she is getting volume overloaded Reason For Visit: SICKLE CELL CRISIS Physical Exam Vital Signs: Temp Pulse Resp BP Pulse Ox 98.3 F 79 15 97/56 L 94 07/11/19 11:01 07/11/19 14:00 07/11/19 11:01 07/11/19 11:01 07/11/19 11:01 Intake & Output 07/10/19 07/11/19 07/12/19 06:59 06:59 06:59 Intake Total 6394 3123 444 Balance 6369 3123 444 Weight 74.8 kg 73.5 kg General appearance: PRESENT: no acute distress Eye exam: PRESENT: PERRLA Respiratory exam: PRESENT: clear to auscultation carolyn Cardiovascular exam: PRESENT: +S1, +S2 GI/Abdominal exam: PRESENT: soft Neurological exam: PRESENT: alert Results Laboratory Results: 07/09/19 07:35 07/09/19 07:35 06/23/19 06/23/19 00:05 00:05 Creatine Kinase 28 L Troponin I < 0.012 Impressions: Chest X-Ray 06/22/19 19:55 IMPRESSION: Patchy left basilar opacity. Consider atelectasis or pneumonia to include aspiration. copyright 2010 [employer]- All Rights Reserved Assessment & Plan - Diagnosis (1) Vaso-occlusive sickle cell crisis Is this a current diagnosis for this admission?: Yes (2) Sickle cell anemia Is this a current diagnosis for this admission?: Yes (3) Hemolytic anemia Qualifiers: Hemolytic anemia type: other hemoglobinopathy Qualified Code(s): D58.2 - Other hemoglobinopathies Is this a current diagnosis for this admission?: Yes - Time Time Spent with patient: Less than 15 minutes - Plan Summary Plan Summary: She continue same treatment
[2019-07-12] MEDS: HYDROMORPHONE HCL INJ/PF 2 MG/ML AMPULE IV PRN ×11 (01:14→23:25)
[2019-07-12] MEDS: DIPHENHYDRAMINE HCL 50 MG/ML VIAL IV PRN ×5 (03:15→23:26)
[2019-07-12] MEDS: GABAPENTIN 300 MG CAPSULE PO SCH ×3 (05:38→21:17)
[2019-07-12] MEDS: HYDROXYUREA 500 MG CAPSULE PO SCH ×3 (05:45→21:18)
[2019-07-12 06:06] LABS: HEMATOCRIT 17.9 % (36.0-47.0); MEAN CORPUSCULAR HEMOGLOBIN 44.3 pg (27.0-33.4); MEAN CORPUSCULAR HGB CONC 35.8 g/dL (32.0-36.0); MEAN CORPUSCULAR VOLUME 124 fl (80-97); PLATELET COUNT 181 10^3/uL (150-450); RED BLOOD COUNT 1.44 10^6/uL (3.72-5.28); RED CELL DISTRIBUTION WIDTH 24.4 % (11.5-14.0); WHITE BLOOD COUNT 3.6 10^3/uL (4.0-10.5)
[2019-07-12 06:27] LABS: ABSOLUTE MONOCYTES # (MANUAL) 0.4 10^3/uL (0.1-1.4); LYMPHOCYTES % (MANUAL) 45 % (13-45); MONOCYTES % (MANUAL) 10 % (3-13); SEGMENTED NEUTROPHILS % (MAN) 30 % (42-78); TOTAL CELLS COUNTED 100
[2019-07-12 06:28] LABS: ABSOLUTE LYMPHOCYTES# (MANUAL) 1.6 10^3/uL (0.5-4.7); ANISOCYTOSIS 4+; BASOPHILS % (MANUAL) 0 % (0-2); EOSINOPHILS % (MANUAL) 15 % (0-6); NUCLEATED RED BLOOD CELLS 12 /100 WBC (0); OVALOCYTES SLIGHT; POIKILOCYTOSIS 2+; POLYCHROMASIA 1+; SCHISTOCYTES SLIGHT; SICKLE RED CELLS SLIGHT; TARGET CELLS SLIGHT
[2019-07-12 06:29] LABS: HOWELL-JOLLY BODIES PRESENT; HYPERSEGMENTED NEUTROPHILS PRESENT; PAPPENHEIMER BODIES PRESENT; PLATELET COMMENT ADEQUATE
[2019-07-12 06:34] LABS: ALBUMIN 3.8 g/dL (3.5-5.0); ALKALINE PHOSPHATASE 127 U/L (38-126); ANION GAP 6 (5-19); ASPARTATE AMINO TRANSFERASE 58 U/L (14-36); BILIRUBIN,DIRECT 0.3 mg/dL (0.0-0.4); BILIRUBIN,TOTAL 3.1 mg/dL (0.2-1.3); BLOOD UREA NITROGEN 11 mg/dL (7-20); CALCIUM 8.6 mg/dL (8.4-10.2); CARBON DIOXIDE 29 mmol/L (22-30); CHLORIDE 102 mmol/L (98-107); GLUCOSE 118 mg/dL (75-110); POTASSIUM 4.1 mmol/L (3.6-5.0); TOTAL PROTEIN 6.6 g/dL (6.3-8.2)
--- NOTE | 2019-07-12 07:26 | PDOC PROGRESS REPORT ---
Subjective Progress Note for:: 07/12/19 Subjective:: Patient states that the pain remains severe. No improvement. Her face is feeling a little better. She was not able to walk in [place] yesterday. Reason For Visit: SICKLE CELL CRISIS Physical Exam Vital Signs: Temp Pulse Resp BP Pulse Ox 98.6 F 78 17 98/60 L 95 07/12/19 01:00 07/12/19 01:00 07/12/19 01:00 07/12/19 01:00 07/12/19 01:03 Intake & Output 07/11/19 07/12/19 07/13/19 06:59 06:59 06:59 Intake Total 3123 844 Balance 3123 844 Weight 73.5 kg 72 kg General appearance: PRESENT: no acute distress Head exam: PRESENT: normocephalic Eye exam: PRESENT: periorbital swelling Respiratory exam: PRESENT: unlabored Neurological exam: PRESENT: alert, awake Psychiatric exam: PRESENT: appropriate affect Skin exam: PRESENT: normal color Results Laboratory Results: 07/12/19 05:15 07/12/19 05:15 07/12/19 07/12/19 05:15 05:15 WBC 3.6 L RBC 1.44 L Hgb 6.4 L Hct 17.9 L MCV 124 H MCH 44.3 H MCHC 35.8 RDW 24.4 H Plt Count 181 Seg Neutrophils % Not Reportable Sodium 137.2 Potassium 4.1 Chloride 102 Carbon Dioxide 29 Anion Gap 6 BUN 11 Creatinine 0.73 Est GFR ( Amer) > 60 Glucose 118 H Calcium 8.6 Total Bilirubin 3.1 H AST 58 H Alkaline Phosphatase 127 H Total Protein 6.6 Albumin 3.8 06/23/19 06/23/19 00:05 00:05 Creatine Kinase 28 L Troponin I < 0.012 Impressions: Chest X-Ray 06/22/19 19:55 IMPRESSION: Patchy left basilar opacity. Consider atelectasis or pneumonia to include aspiration. copyright 2010 [employer]- All Rights Reserved Assessment & Plan - Diagnosis (1) Vaso-occlusive sickle cell crisis Is this a current diagnosis for this admission?: Yes (2) Anemia, sickle cell with crisis Is this a current diagnosis for this admission?: Yes (3) Dehydration Is this a current diagnosis for this admission?: Yes (4) Iron overload due to repeated red blood cell transfusions Is this a current diagnosis for this admission?: Yes - Time Time Spent with patient: Less than 15 minutes - Plan Summary Plan Summary: Continue to wean IV Dilaudid today. Her HGB has improved. Plan for discharge tomorrow. Patient is in agreement with this plan.
[2019-07-12] MEDS: HEPARIN SOD (PORCINE) 5,000 UNIT/ML 1 ML VIAL SUBCUT SCH ×3 (07:48→21:19)
[2019-07-12] MEDS: 1/2 NORMAL SALINE 1,000 ML IV PRN (07:56)
[2019-07-12] MEDS: OXYCODONE HCL SR 10 MG TABLET PO SCH ×2 (09:18→21:16)
[2019-07-12] MEDS: FOLIC ACID 1 MG TABLET PO SCH (09:18)
[2019-07-12] MEDS: OXYCODONE HCL IR 5 MG TABLET PO PRN (16:04)
[2019-07-12] MEDS ORDERED: METHYLPREDNISOLONE INJ 125 MG/2 ML SDV IV ONE (17:50)
--- NOTE | 2019-07-12 19:21 | PDOC PROGRESS REPORT ---
Subjective Progress Note for:: 07/12/19 Subjective:: She said she does not feel well, she has erythema on the anterior chest Reason For Visit: SICKLE CELL CRISIS Physical Exam Vital Signs: Temp Pulse Resp BP Pulse Ox 98.4 F 78 15 101/55 L 100 07/12/19 15:41 07/12/19 15:41 07/12/19 15:41 07/12/19 15:41 07/12/19 15:41 Intake & Output 07/11/19 07/12/19 07/13/19 06:59 06:59 06:59 Intake Total 3123 1844 Balance 3123 1844 Weight 73.5 kg 72 kg 72 kg General appearance: PRESENT: no acute distress Eye exam: PRESENT: PERRLA Respiratory exam: PRESENT: clear to auscultation carolyn Cardiovascular exam: PRESENT: +S1, +S2 Neurological exam: PRESENT: alert, CN II-XII grossly intact Results Laboratory Results: 07/12/19 05:15 07/12/19 05:15 07/12/19 07/12/19 05:15 05:15 WBC 3.6 L RBC 1.44 L Hgb 6.4 L Hct 17.9 L MCV 124 H MCH 44.3 H MCHC 35.8 RDW 24.4 H Plt Count 181 Seg Neutrophils % Not Reportable Sodium 137.2 Potassium 4.1 Chloride 102 Carbon Dioxide 29 Anion Gap 6 BUN 11 Creatinine 0.73 Est GFR ( Amer) > 60 Glucose 118 H Calcium 8.6 Total Bilirubin 3.1 H AST 58 H Alkaline Phosphatase 127 H Total Protein 6.6 Albumin 3.8 06/23/19 06/23/19 00:05 00:05 Creatine Kinase 28 L Troponin I < 0.012 Impressions: Chest X-Ray 06/22/19 19:55 IMPRESSION: Patchy left basilar opacity. Consider atelectasis or pneumonia to include aspiration. copyright 2011 [employer]- All Rights Reserved Assessment & Plan - Diagnosis (1) Vaso-occlusive sickle cell crisis Is this a current diagnosis for this admission?: Yes (2) Sickle cell anemia Is this a current diagnosis for this admission?: Yes (3) Hemolytic anemia Qualifiers: Hemolytic anemia type: other hemoglobinopathy Qualified Code(s): D58.2 - Other hemoglobinopathies Is this a current diagnosis for this admission?: Yes - Time Time Spent with patient: Less than 15 minutes
[2019-07-13] MEDS: HYDROMORPHONE HCL INJ/PF 2 MG/ML AMPULE IV PRN ×10 (01:22→22:28)
[2019-07-13] MEDS: DIPHENHYDRAMINE HCL 50 MG/ML VIAL IV PRN ×5 (03:45→22:29)
[2019-07-13] MEDS: 1/2 NORMAL SALINE 1,000 ML IV PRN (03:50)
[2019-07-13] MEDS: HYDROXYUREA 500 MG CAPSULE PO SCH ×3 (06:08→22:31)
[2019-07-13] MEDS: GABAPENTIN 300 MG CAPSULE PO SCH ×3 (06:08→22:31)
[2019-07-13] MEDS: HEPARIN SOD (PORCINE) 5,000 UNIT/ML 1 ML VIAL SUBCUT SCH ×3 (06:17→22:28)
--- NOTE | 2019-07-13 08:02 | PDOC PROGRESS REPORT ---
Subjective Progress Note for:: 07/13/19 Subjective:: Patient complains of dysuria and dark urine. Did not walk yesterday, but states that pain is the same. No worse since decreasing IV dilsudid. Reason For Visit: SICKLE CELL CRISIS Physical Exam Vital Signs: Temp Pulse Resp BP Pulse Ox 98.4 F 82 15 101/55 L 100 07/12/19 15:41 07/13/19 07:00 07/12/19 15:41 07/12/19 15:41 07/12/19 15:41 Intake & Output 07/12/19 07/13/19 07/14/19 06:59 06:59 06:59 Intake Total 1844 1395 Balance 1844 1395 Weight 72 kg 66.7 kg General appearance: PRESENT: no acute distress Head exam: PRESENT: normocephalic Respiratory exam: PRESENT: unlabored Extremities exam: ABSENT: pedal edema Neurological exam: PRESENT: alert, awake Additional comments: Swelling much improved. Results Laboratory Results: 07/12/19 05:15 07/12/19 05:15 06/23/19 06/23/19 00:05 00:05 Creatine Kinase 28 L Troponin I < 0.012 Impressions: Chest X-Ray 06/22/19 19:55 IMPRESSION: Patchy left basilar opacity. Consider atelectasis or pneumonia to include aspiration. copyright 2011 [employer]- All Rights Reserved Assessment & Plan - Diagnosis (1) Vaso-occlusive sickle cell crisis Is this a current diagnosis for this admission?: Yes Plan: resolving. Plan for discharge later today. (2) Anemia, sickle cell with crisis Is this a current diagnosis for this admission?: Yes Plan: Will follow-up in the office in 2 weeks. (3) Dehydration Is this a current diagnosis for this admission?: Yes (4) Iron overload due to repeated red blood cell transfusions Is this a current diagnosis for this admission?: Yes - Time Time Spent with patient: Less than 15 minutes - Plan Summary Plan Summary: I will check U/A and culture today. If appropriate, start antibiotics. Hopefully, she can still be discharged later today
[2019-07-13 08:38] LABS: HEMOGLOBIN 6.4 g/dL (12.0-15.5)
[2019-07-13] MEDS: FOLIC ACID 1 MG TABLET PO SCH (09:56)
[2019-07-13] MEDS: OXYCODONE HCL SR 10 MG TABLET PO SCH ×2 (09:56→22:31)
[2019-07-13 14:11] LABS: APPEARANCE,URINE CLEAR; BILIRUBIN,URINE NEGATIVE (NEGATIVE); COLOR,URINE YELLOW; GLUCOSE, URINE NEGATIVE (NEGATIVE); KETONES,URINE NEGATIVE (NEGATIVE); PROTEIN,URINE NEGATIVE (NEGATIVE)
--- NOTE | 2019-07-13 20:46 | PDOC DISCHARGE SUMMARY ---
Impression - Admit/DC Date/PCP Admission Date/Primary Care Provider: 06/23/19 04:40 HOMA BARRAZA MD Discharge Date: 07/13/19 - Discharge Diagnosis (1) Vaso-occlusive sickle cell crisis Is this a current diagnosis for this admission?: Yes (2) Sickle cell anemia Is this a current diagnosis for this admission?: Yes (3) Hemolytic anemia Is this a current diagnosis for this admission?: Yes - Additional Information Resuscitation Status: Full Code Referrals: SAVANNA AWAN MD [ACTIVE STAFF] - 07/24/19 2:15 pm HOMA BARRAZA MD [Primary Care Provider] - Follow up as needed (OFFICE SAID PT IS SEEN A WALK IN USUALLY) Home Medications: Epoetin Federico [Procrit Inj 40,000 Unit/1 ml Vial (Renal)] 60,000 unit SQ FR 11/20/18 Folic Acid [Folvite 1 mg Tablet] 1 mg PO DAILY 11/20/18 Gabapentin [Neurontin 300 mg Capsule] 300 mg PO BID 11/20/18 Hydroxyurea [Hydrea 500 mg Capsule] 500 mg PO TID 11/20/18 Multivitamin [Multiple Vitamins] 1 tab PO DAILY 11/20/18 Oxycodone HCl [Oxycodone HCl 10 MG Tablet] 10 mg PO Q6HP PRN 11/20/18 Oxycodone HCl [Oxycontin] 30 mg PO Q12 11/20/18 Deferasirox [Jadenu] 360 mg PO DAILY 05/19/19 Ergocalciferol (Vitamin D2) [Vitamin D2] 50,000 unit PO WE@1000 05/19/19 History of Present Illiness History of Present Illness: WILLIE ALAN is a 49 year old female, she came to the emergency room for evaluation of bone pain, history of sickle cell disease Hospital Course Hospital Course: Patient was admitted for the management of sickle cell bone pain crisis vaso- occlusive bone pain crisis, she was seen in 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 Hospital course was prolonged because of the duration of the bone pain crisis was prolonged, she required i ntravenous Dilaudid for a prolonged period of time. She has chronic anemia due to sickle cell disease Physical Exam Vital Signs: Temp Pulse Resp BP Pulse Ox 98.8 F 74 17 91/58 L 100 07/13/19 17:02 07/13/19 17:02 07/13/19 17:02 07/13/19 17:02 07/13/19 17:02 Intake & Output 07/12/19 07/13/19 07/14/19 06:59 06:59 06:59 Intake Total 1844 1395 560 Balance 1844 1395 560 Weight 72 kg 66.7 kg General appearance: PRESENT: no acute distress Eye exam: PRESENT: PERRLA Respiratory exam: PRESENT: clear to auscultation carolyn Cardiovascular exam: PRESENT: +S1, +S2 GI/Abdominal exam: PRESENT: soft Neurological exam: PRESENT: alert, CN II-XII grossly intact Results Laboratory Results: WBC 3.6 10^3/uL (4.0-10.5) L 07/12/19 05:15 RBC 1.44 10^6/uL (3.72-5.28) L 07/12/19 05:15 Hgb 6.4 g/dL (12.0-15.5) L 07/12/19 05:15 Hct 17.9 % (36.0-47.0) L 07/12/19 05:15 MCV 124 fl (80-97) H 07/12/19 05:15 MCH 44.3 pg (27.0-33.4) H 07/12/19 05:15 MCHC 35.8 g/dL (32.0-36.0) 07/12/19 05:15 RDW 24.4 % (11.5-14.0) H 07/12/19 05:15 Plt Count 181 10^3/uL (150-450) 07/12/19 05:15 Lymph % (Auto) Not Reportable 07/12/19 05:15 [place] % (Auto) Not Reportable 07/12/19 05:15 Eos % (Auto) Not Reportable 07/12/19 05:15 Baso % (Auto) Not Reportable 07/12/19 05:15 Reticulocyte # 0.042 10^6/uL (0.028-0.122) 06/23/19 00:05 Absolute Neuts (auto) Not Reportable 07/12/19 05:15 Absolute Lymphs (auto) Not Reportable 07/12/19 05:15 Absolute Monos (auto) Not Reportable 07/12/19 05:15 Absolute Eos (auto) Not Reportable 07/12/19 05:15 Absolute Basos (auto) Not Reportable 07/12/19 05:15 Add Manual Diff Cancelled 07/06/19 06:45 Total Counted 100 07/12/19 05:15 Seg Neutrophils % Not Reportable 07/12/19 05:15 Seg Neuts % (Manual) 30 % (42-78) L 07/12/19 05:15 Lymphocytes % (Manual) 45 % (13-45) 07/12/19 05:15 Monocytes % (Manual) 10 % (3-13) 07/12/19 05:15 Eosinophils % (Manual) 15 % (0-6) H D 07/12/19 05:15 Basophils % (Manual) 0 % (0-2) 07/12/19 05:15 Abs Neuts (Manual) 1.1 10^3/uL (1.7-8.2) L 07/12/19 05:15 Abs Lymphs (Manual) 1.6 10^3/uL (0.5-4.7) 07/12/19 05:15 Abs Monocytes (Manual) 0.4 10^3/uL (0.1-1.4) 07/12/19 05:15 Absolute Eos (Manual) 0.5 10^3/uL (0.0-0.6) 07/12/19 05:15 Abs Basophils (Manual) 0.0 10^3/uL (0.0-0.2) 07/12/19 05:15 Nucleated RBCs 12 /100 WBC (0) 07/12/19 05:15 Hypersegmented Neuts PRESENT 07/12/19 05:15 Toxic Granulation 1+ 06/30/19 04:35 Platelet Estimate Cancelled 07/06/19 06:45 Platelet Comment ADEQUATE 07/12/19 05:15 Polychromasia 1+ 07/12/19 05:15 Hypochromasia 1+ 07/03/19 06:20 Poikilocytosis 2+ 07/12/19 05:15 Basophilic Stippling PRESENT 07/03/19 06:20 Anisocytosis 4+ 07/12/19 05:15 Macrocytosis 3+ 07/06/19 08:12 Pappenheimer Bodies PRESENT 07/12/19 05:15 Sickle Cells SLIGHT 07/12/19 05:15 Target Cells SLIGHT 07/12/19 05:15 Tear Drop Cells SLIGHT 07/09/19 07:35 Ovalocytes SLIGHT 07/12/19 05:15 [place] Bodies PRESENT 07/12/19 05:15 [place] Cells SLIGHT 07/09/19 07:35 Acanthocytes (Spur) SLIGHT 06/25/19 22:50 Schistocytes SLIGHT 07/12/19 05:15 Retic Count (auto) 2.34 % (0.66-2.85) 06/23/19 00:05 Sodium 137.2 mmol/L (137-145) 07/12/19 05:15 Potassium 4.1 mmol/L (3.6-5.0) 07/12/19 05:15 Chloride 102 mmol/L (98-107) 07/12/19 05:15 Carbon Dioxide 29 mmol/L (22-30) 07/12/19 05:15 Anion Gap 6 (5-19) 07/12/19 05:15 BUN 11 mg/dL (7-20) 07/12/19 05:15 Creatinine 0.73 mg/dL (0.52-1.25) 07/12/19 05:15 Est GFR ( Amer) > 60 (>60) 07/12/19 05:15 Est GFR (Non-Af Amer) Cancelled 07/03/19 07:10 Est GFR (MDRD) Non-Af > 60 (>60) 07/12/19 05:15 Glucose 118 mg/dL (75-110) H 07/12/19 05:15 Calcium 8.6 mg/dL (8.4-10.2) 07/12/19 05:15 Total Bilirubin 3.1 mg/dL (0.2-1.3) H 07/12/19 05:15 Direct Bilirubin 0.3 mg/dL (0.0-0.4) 07/12/19 05:15 Neonat Total Bilirubin Not Reportable 07/12/19 05:15 Neonat Direct Bilirubin Not Reportable 07/12/19 05:15 Neonat Indirect Bili Not Reportable 07/12/19 05:15 AST 58 U/L (14-36) H 07/12/19 05:15 ALT 28 U/L (<35) 07/12/19 05:15 Alkaline Phosphatase 127 U/L (38-126) H 07/12/19 05:15 Lactate Dehydrogenase 454 U/L (120-246) H 07/12/19 05:15 Creatine Kinase 28 U/L (30-135) L 06/23/19 00:05 Troponin I < 0.012 ng/mL 06/23/19 00:05 Total Protein 6.6 g/dL (6.3-8.2) 07/12/19 05:15 Albumin 3.8 g/dL (3.5-5.0) 07/12/19 05:15 EGFR Cancelled 07/03/19 07:10 Urine Color YELLOW 07/13/19 13:39 Urine Appearance CLEAR 07/13/19 13:39 Urine pH 7.0 (5.0-9.0) 07/13/19 13:39 Ur Specific Raymond 1.010 07/13/19 13:39 Urine Protein NEGATIVE mg/dL (NEGATIVE) 07/13/19 13:39 Urine Glucose (UA) NEGATIVE mg/dL (NEGATIVE) 07/13/19 13:39 Urine Ketones NEGATIVE mg/dL (NEGATIVE) 07/13/19 13:39 Urine Blood SMALL (NEGATIVE) H 07/13/19 13:39 Urine Nitrite (Reflex) NEGATIVE (NEGATIVE) 07/13/19 13:39 Urine Bilirubin NEGATIVE (NEGATIVE) 07/13/19 13:39 Urine Urobilinogen 4.0 mg/dL (<2.0) H 07/13/19 13:39 Leukocyte Esterase Rfl NEGATIVE (NEGATIVE) 07/13/19 13:39 Urine RBC (Auto) 0 /HPF 07/13/19 13:39 Urine WBC (Reflex) 1 /HPF 07/13/19 13:39 Squamous Epi Cells Auto <1 /HPF 07/13/19 13:39 Urine Ascorbic Acid NEGATIVE (NEGATIVE) 07/13/19 13:39 Slides for Path Review Cancelled 07/06/19 06:45 06/23/19 00:05 Troponin I < 0.012 Impressions: Chest X-Ray 06/22/19 19:55 IMPRESSION: Patchy left basilar opacity. Consider atelectasis or pneumonia to include aspiration. copyright 2010 [employer]- All Rights Reserved Stroke Is this a Stroke Patient?: No Acute Heart Failure - Is this a Heart Failure Patient?: No
[2019-07-14] MEDS: HYDROMORPHONE HCL INJ/PF 2 MG/ML AMPULE IV PRN ×4 (00:36→07:41)
[2019-07-14] MEDS: 1/2 NORMAL SALINE 1,000 ML IV PRN (00:40)
[2019-07-14] MEDS: DIPHENHYDRAMINE HCL 50 MG/ML VIAL IV PRN ×2 (02:56→07:41)
[2019-07-14] MEDS: HYDROXYUREA 500 MG CAPSULE PO SCH (05:16)
[2019-07-14] MEDS: GABAPENTIN 300 MG CAPSULE PO SCH (05:16)
[2019-07-14] MEDS: HEPARIN SOD (PORCINE) 5,000 UNIT/ML 1 ML VIAL SUBCUT SCH (05:19)
[2019-07-14] MEDS: OXYCODONE HCL SR 10 MG TABLET PO SCH (09:02)
[2019-07-14] MEDS: FOLIC ACID 1 MG TABLET PO SCH (09:03)
[2019-07-14] MEDS: OXYCODONE HCL IR 5 MG TABLET PO PRN (10:27)
[2019-07-14 12:20] VITALS: BP 104/62
== END 2019-07-14 13:40 | disposition home or self-care (01) | DRG 811 ==
LOC: ER 18:32 → EH 06-23 04:40 → 5 06-23 14:43
PROVIDERS: ADMIT Internal Medicine; ATTEND Internal Medicine
DX: D57.00 Hb-SS disease with crisis, unspecified (principal); J18.9 Pneumonia, unspecified organism; I10 Essential (primary) hypertension; G89.4 Chronic pain syndrome; E86.0 Dehydration; E83.111 Hemochromatosis due to repeated red blood cell transfusions; H01.004 Unspecified blepharitis left upper eyelid; H01.001 Unspecified blepharitis right upper eyelid; Z79.899 Other long term (current) drug therapy; Z86.14 Personal history of Methicillin resistant Staphylococcus aureus infection; Z88.3 Allergy status to other anti-infective agents; Z86.718 Personal history of other venous thrombosis and embolism; Z79.891 Long term (current) use of opiate analgesic
CPT/HCPCS: 36415; 71046; 80048; 80053; 81001; 82550; 83615; 84132; 84484; 85025; 85045; 87040; 93005; 93010; 96361; 96365; 96375; 96376; 99285; J0696; J1170; J1200; J1642; J1644; J1940; J2930; J3411; J3475; J3480; J3490; J7030

== ENCOUNTER 2019-08-01 18:25 | Emergency (ER) | payer MEDICAID ==
--- NOTE | 2019-08-01 19:43 | ER Document Report ---
ED Medical Screen (RME) - General Chief Complaint: Sickle Cell Crisis Stated Complaint: SICKLE CELL CRISIS/CHEST PAIN Time Seen by Provider: 08/01/19 19:38 Primary Care Provider: HOMA BARRAZA MD [Primary Care Provider] - Follow up as needed Mode of Arrival: Wheelchair Information source: Patient Notes: 49-year-old female with history of sickle cell presents with complaints of arms back chest pain that started yesterday. Also reports she had 102 temperature earlier today. Took Tylenol approximately 2:00 this afternoon. No complaints of vomiting or diarrhea. I have greeted and performed a rapid initial assessment of this patient. A comprehensive ED assessment and evaluation of the patient, analysis of test results and completion of the medical decision making process will be conducted by additional ED providers. TRAVEL OUTSIDE OF THE [place] IN LAST 30 DAYS: No - Related Data Allergies/Adverse Reactions: doxycycline [Doxycycline] Allergy (Severe, Verified 08/01/19 19:37) Home Medications: Oxycodone 30mg. Multivitamin. Hydrea 500mg. Neurontin 3 00mg. Folic Acid. Jadenu 360mg. Vitamin D2. Procrit Past Medical History - Past Medical History Cardiac Medical History: Reports: Hx Heart Murmur Denies: Hx Atrial Fibrillation, Hx Congestive Heart Failure, Hx Coronary Artery Disease, Hx Heart Attack, Hx Hypercholesterolemia, Hx Hypertension, Hx Peripheral Vascular Disease Pulmonary Medical History: Denies: Hx Tuberculosis Neurological Medical History: Denies: Hx Seizures Renal/ Medical History: Reports: Hx Ovarian Cysts. 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 Denies: Hx HIV Past Surgical History: Reports: Hx Appendectomy, Hx Section, Hx Cholecystectomy, Hx Orthopedic Surgery - R knee, Hx Tonsillectomy. Denies: Hx Bowel Surgery, Hx Coronary Artery Bypass Graft, Hx Gastric Bypass Surgery, Hx Herniorrhaphy, Hx Mastectomy, Hx Pacemaker, Hx Tubal Ligation - Immunizations Immunizations up to date: Yes Hx Diphtheria, Pertussis, Tetanus Vaccination: Yes Physical Exam - Vital signs Vitals: Temp Pulse Resp BP Pulse Ox 99.7 F 91 20 103/47 L 100 08/01/19 18:40 08/01/19 18:40 08/01/19 18:40 08/01/19 18:40 08/01/19 18:40 Course - Vital Signs Vital signs: Temp Pulse Resp BP Pulse Ox 99.7 F 91 20 103/47 L 100 08/01/19 18:40 08/01/19 18:40 08/01/19 18:40 08/01/19 18:40 08/01/19 18:40 Doctor's Discharge - Discharge Referrals: HOMA BARRAZA MD [Primary Care Provider] - Follow up as needed
--- NOTE | 2019-08-01 20:12 | EKG REPORT ---
SEVERITY:- NORMAL ECG - SINUS RHYTHM : Confirmed by: Killian Moraes MD 01-Aug-2019 20:11:16
--- NOTE | 2019-08-01 20:23 | RADIOLOGY REPORT (SQ) ---
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 COMPARISON: 03/24/2019 FINDINGS: Enlarged heart size with pulmonary vascular congestion. No focal consolidation is identified. No pleural effusions or pneumothorax. Stable left central venous line. IMPRESSION: Pulmonary edema pattern without large pleural effusions.
--- NOTE | 2019-08-02 00:28 | ER Document Report ---
ED General - General Mode of Arrival: Wheelchair TRAVEL OUTSIDE OF THE [place] IN LAST 30 DAYS: No - Related Data Home Medications: Oxycodone 30mg. Multivitamin. Hydrea 500mg. Neurontin 300mg. Folic Acid. Jadenu 360mg. Vitamin D2. Procrit <MELISSA DUMONT - Last Filed: 08/02/19 06:38> <YE,TINATRINHMICHAEL - Last Filed: 08/02/19 13:05> - General Chief Complaint: Sickle Cell Crisis Stated Complaint: SICKLE CELL CRISIS/CHEST PAIN Time Seen by Provider: 08/01/19 19:38 Primary Care Provider: SAVANNA RAMIREZ MD [ACTIVE STAFF] - Follow up tomorrow HOMA BARRAZA MD [Primary Care Provider] - Follow up as needed Notes: 49-year-old female patient history of sickle cell presents emergency department chief complaint of bilateral arm pain, back pain, chest pain and bilateral leg pain. Patient reports symptoms started yesterday. She also reports she had a fever of 102 earlier. She states she took some Tylenol at 2:00 this afternoon. Denies any nausea, vomiting or diarrhea. She is also complaining of some swelling to her bilateral legs, increased swelling to the right lower extremity. (MELISSA DUMONT) - Related Data Allergies/Adverse Reactions: doxycycline [Doxycycline] Allergy (Severe, Verified 08/01/19 19:37) Past Medical History - General Information source: Patient - Social History Smoking Status: Never Smoker Family History: Reviewed & Not Pertinent Patient has suicidal ideation: No Patient has homicidal ideation: No - Past Medical History Cardiac Medical History: Reports: Hx Heart Murmur Denies: Hx Atrial Fibrillation, Hx Congestive Heart Failure, Hx Coronary Artery Disease, Hx Heart Attack, Hx Hypercholesterolemia, Hx Hypertension, Hx Peripheral Vascular Disease Pulmonary Medical History: Denies: Hx Tuberculosis Neurological Medical History: Denies: Hx Seizures Renal/ Medical History: Reports: Hx Ovarian Cysts. 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 Denies: Hx HIV Past Surgical History: Reports: Hx Appendectomy, Hx Section, Hx Cholecystectomy, Hx Orthopedic Surgery - R knee, Hx Tonsillectomy. Denies: Hx Bowel Surgery, Hx Coronary Artery Bypass Graft, Hx Gastric Bypass Surgery, Hx Herniorrhaphy, Hx Mastectomy, Hx Pacemaker, Hx Tubal Ligation - Immunizations Immunizations up to date: Yes Hx Diphtheria, Pertussis, Tetanus Vaccination: Yes Hx Pneumococcal Vaccination: 03/20/14 <MELISSA DUMONT - Last Filed: 08/02/19 06:38> Review of Systems - Review of Systems Cardiovascular: Chest pain Musculoskeletal: Muscle pain, Leg swelling - Bilateral, Other -: Yes All other systems reviewed and negative <MELISSA DUMONT - Last Filed: 08/02/19 06:38> Physical Exam <MELISSA DUMONT - Last Filed: 08/02/19 06:38> - Vital signs Vitals: Temp Pulse Resp BP Pulse Ox 99.7 F 91 20 103/47 L 100 08/01/19 18:40 08/01/19 18:40 08/01/19 18:40 08/01/19 18:40 08/01/19 18:40 - Notes Notes: PHYSICAL EXAMINATION: GENERAL: Well-appearing, well-nourished and in no acute distress. HEAD: Atraumatic, normocephalic. EYES: Pupils equal round and reactive to light, extraocular movements intact, conjunctiva are normal. ENT: Nares patent, oropharynx clear without exudates. Moist mucous membranes. NECK: Normal range of motion, supple without lymphadenopathy LUNGS: Breath sounds clear to auscultation bilaterally and equal. No wheezes rales or rhonchi. HEART: Regular rate and rhythm without murmurs ABDOMEN: Soft, nontender, nondistended abdomen. No guarding, no rebound. No masses appreciated. Female : deferred Musculoskeletal: Normal range of motion, 2+ edema to right lower extremity, 1+ edema to left lower extremity. No cyanosis. NEUROLOGICAL: Cranial nerves grossly intact. Normal speech, normal gait. N ormal sensory, motor exams PSYCH: Normal mood, normal affect. SKIN: Warm, Dry, normal turgor, no rashes or lesions noted. (MELISSA DUMONT) Course - Laboratory Result Diagrams: 08/02/19 00:53 08/02/19 00:53 <MELISSA DUMONT - Last Filed: 08/02/19 06:38> - Laboratory Result Diagrams: 08/02/19 00:53 08/02/19 00:53 - Diagnostic Test Radiology reviewed: Reports reviewed <ELIANA BELCHER - Last Filed: 08/02/19 13:05> - Re-evaluation Re-evalutation: 08/02/19 03:40 Laboratory 08/02/19 08/02/19 08/02/19 00:53 00:53 00:53 WBC 5.0 RBC 1.38 L Hgb 6.2 L Hct 17.3 L MCV 125 H MCH 45.0 H MCHC 35.9 RDW 22.0 H Plt Count 228 Lymph % (Auto) Not Reportable [place] % (Auto) Not Reportable Eos % (Auto) Not Reportable Baso % (Auto) Not Reportable Reticulocyte # 0.095 Absolute Neuts (auto) Not Reportable Absolute Lymphs (auto) Not Reportable Absolute Monos (auto) Not Reportable Absolute Eos (auto) Not Reportable Absolute Basos (auto) Not Reportable Total Counted 100 Seg Neutrophils % Not Reportable Seg Neuts % (Manual) 40 L Lymphocytes % (Manual) 46 H Monocytes % (Manual) 8 Eosinophils % (Manual) 3 Basophils % (Manual) 3 H Abs Neuts (Manual) 2.0 Abs Lymphs (Manual) 2.3 Abs Monocytes (Manual) 0.4 Absolute Eos (Manual) 0.2 Abs Basophils (Manual) 0.2 Nucleated RBCs 68 Platelet Comment ADEQUATE Polychromasia 1+ Anisocytosis 3+ Macrocytosis 4+ Sickle Cells 1+ Target Cells SLIGHT [place] Bodies PRESENT Schistocytes SLIGHT Retic Count (auto) 6.88 H Sodium 135.5 L Potassium 4.2 Chloride 104 Carbon Dioxide 27 Anion Gap 5 BUN 5 L Creatinine 0.56 Est GFR ( Amer) > 60 Est GFR (MDRD) Non-Af > 60 Glucose 93 Calcium 8.8 Total Bilirubin 4.1 H Direct Bilirubin 0.4 Neonat Total Bilirubin Not Reportable Neonat Direct Bilirubin Not Reportable Neonat Indirect Bili Not Reportable AST 44 H ALT 27 Alkaline Phosphatase 123 NT-Pro-B Natriuret Pep 360 H Total Protein 6.7 Albumin 3.9 Urine Color Urine Appearance Urine pH Ur Specific Martin Urine Protein Urine Glucose (UA) Urine Ketones Urine Blood Urine Nitrite Urine Bilirubin Urine Urobilinogen Ur Leukocyte Esterase Urine WBC (Auto) Urine RBC (Auto) Squamous Epi Cells Auto Urine Mucus (Auto) Urine Ascorbic Acid 08/02/19 01:34 WBC RBC Hgb Hct MCV MCH MCHC RDW Plt Count Lymph % (Auto) [place] % (Auto) Eos % (Auto) Baso % (Auto) Reticulocyte # Absolute Neuts (auto) Absolute Lymphs (auto) Absolute Monos (auto) Absolute Eos (auto) Absolute Basos (auto) Total Counted Seg Neutrophils % Seg Neuts % (Manual) Lymphocytes % (Manual) Monocytes % (Manual) Eosinophils % (Manual) Basophils % (Manual) Abs Neuts (Manual) Abs Lymphs (Manual) Abs Monocytes (Manual) Absolute Eos (Manual) Abs Basophils (Manual) Nucleated RBCs Platelet Comment Polychromasia Anisocytosis Macrocytosis Sickle Cells Target Cells [place] Bodies Schistocytes Retic Count (auto) Sodium Potassium Chloride Carbon Dioxide Anion Gap BUN Creatinine Est GFR ( Amer) Est GFR (MDRD) Non-Af Glucose Calcium Total Bilirubin Direct Bilirubin Neonat Total Bilirubin Neonat Direct Bilirubin Neonat Indirect Bili AST ALT Alkaline Phosphatase NT-Pro-B Natriuret Pep Total Protein Albumin Urine Color YELLOW Urine Appearance CLEAR Urine pH 7.0 Ur Specific [place] 1.008 Urine Protein NEGATIVE Urine Glucose (UA) NEGATIVE Urine Ketones NEGATIVE Urine Blood NEGATIVE Urine Nitrite NEGATIVE Urine Bilirubin NEGATIVE Urine Urobilinogen 2.0 H Ur Leukocyte Esterase NEGATIVE Urine WBC (Auto) 1 Urine RBC (Auto) 0 Squamous Epi Cells Auto <1 Urine Mucus (Auto) RARE Urine Ascorbic Acid NEGATIVE Chest X-Ray 08/01/19 19:40 IMPRESSION: Pulmonary edema pattern without large pleural effusions. 08/02/19 06:50 Patient continues to report pain. Patient reports now that her leg pain feels more like when she had a DVT in the past. Order for venous Dopplers was added. I did spoke with Dr. Barraza earlier in the night, he indicated he did not believe this patient needed admission. I explained this to the patient, patient states that the last time she was here her live out nanny was not notified and she states they were very upset. Patient is requesting that prior to discharge we contact Dr. Viveros. (MELISSA DUMONT) 08/02/19 08:10 Bedside report and handoff received from Melissa Dumont NP 08/02/19 11:[address] Ramirez regarding pt's results. Dr Ramirez advises treating pt's pain symptoms. Dr Ramirez states that she will be happy to see the patient in the office tomorrow if patient feels she can manage her symptoms at home or advises calling patient's primary doctor for admission if she cannot keep her pain symptoms under control. Patient advised of conversation with Dr. Ramirez. Patient states that she would like to see if she can get her pain under control. Patient states that if her primary doctor will not admit her that she will just go home. 08/02/19 12:06 Patient states that she continues with pain and would like to see if her doctor would be willing to admit her at this time. Attempted to contact patient's primary doctor as patient is requesting admission for pain control at this time. 08/02/19 12:[address] Barraza regarding patient's desire to be admitted for pain control this time. Dr. Barraza declines admission but states that patient can see if her second vp hr assessment would be willing to admit her. Patient states that if Dr. Barraza will not admit her, she will go home and plan to follow-up with Dr. Viveros tomorrow. Discussed worsening symptoms that patient should return immediately for. Patient verbalized understanding is agreeable with plan of care. Patient is requesting additional dose of pain medicine prior to discharge at this time. (ELIANA BELCHER) - Vital Signs Vital signs: Temp Pulse Resp BP Pulse Ox 98.6 F 74 16 107/55 L 99 08/02/19 10:22 08/02/19 10:22 08/02/19 10:22 08/02/19 10:22 08/02/19 10:22 - Laboratory Laboratory results interpreted by or: 08/02/19 08/02/19 08/02/19 00:53 00:53 00:53 RBC 1.38 L Hgb 6.2 L Hct 17.3 L MCV 125 H MCH 45.0 H RDW 22.0 H Seg Neuts % (Manual) 40 L Lymphocytes % (Manual) 46 H Basophils % (Manual) 3 H Retic Count (auto) 6.88 H Sodium 135.5 L BUN 5 L Total Bilirubin 4.1 H AST 44 H NT-Pro-B Natriuret Pep 360 H Urine Urobilinogen 08/02/19 01:34 RBC Hgb Hct MCV MCH RDW Seg Neuts % (Manual) Lymphocytes % (Manual) Basophils % (Manual) Retic Count (auto) Sodium BUN Total Bilirubin AST NT-Pro-B Natriuret Pep Urine Urobilinogen 2.0 H 08/02/19 12:55 Labs- Entire Visit 08/02/19 08/02/19 08/02/19 00:53 00:53 00:53 WBC 5.0 RBC 1.38 L Hgb 6.2 L Hct 17.3 L MCV 125 H MCH 45.0 H MCHC 35.9 RDW 22.0 H Plt Count 228 Lymph % (Auto) Not Reportable [place] % (Auto) Not Reportable Eos % (Auto) Not Reportable Baso % (Auto) Not Reportable Reticulocyte # 0.095 Absolute Neuts (auto) Not Reportable Absolute Lymphs (auto) Not Reportable Absolute Monos (auto) Not Reportable Absolute Eos (auto) Not Reportable Absolute Basos (auto) Not Reportable Total Counted 100 Seg Neutrophils % Not Reportable Seg Neuts % (Manual) 40 L Lymphocytes % (Manual) 46 H Monocytes % (Manual) 8 Eosinophils % (Manual) 3 Basophils % (Manual) 3 H Abs Neuts (Manual) 2.0 Abs Lymphs (Manual) 2.3 Abs Monocytes (Manual) 0.4 Absolute Eos (Manual) 0.2 Abs Basophils (Manual) 0.2 Nucleated RBCs 68 Platelet Comment ADEQUATE Polychromasia 1+ Anisocytosis 3+ Macrocytosis 4+ Sickle Cells 1+ Target Cells SLIGHT [place] Bodies PRESENT Schistocytes SLIGHT Retic Count (auto) 6.88 H Sodium 135.5 L Potassium 4.2 Chloride 104 Carbon Dioxide 27 Anion Gap 5 BUN 5 L Creatinine 0.56 Est GFR ( Amer) > 60 Est GFR (MDRD) Non-Af > 60 Glucose 93 Calcium 8.8 Total Bilirubin 4.1 H Direct Bilirubin 0.4 Neonat Total Bilirubin Not Reportable Neonat Direct Bilirubin Not Reportable Neonat Indirect Bili Not Reportable AST 44 H ALT 27 Alkaline Phosphatase 123 NT-Pro-B Natriuret Pep 360 H Total Protein 6.7 Albumin 3.9 Urine Color Urine Appearance Urine pH Ur Specific [place] Urine Protein Urine Glucose (UA) Urine Ketones Urine Blood Urine Nitrite Urine Bilirubin Urine Urobilinogen Ur Leukocyte Esterase Urine WBC (Auto) Urine RBC (Auto) Squamous Epi Cells Auto Urine Mucus (Auto) Urine Ascorbic Acid 08/02/19 01:34 WBC RBC Hgb Hct MCV MCH MCHC RDW Plt Count Lymph % (Auto) [place] % (Auto) Eos % (Auto) Baso % (Auto) Reticulocyte # Absolute Neuts (auto) Absolute Lymphs (auto) Absolute Monos (auto) Absolute Eos (auto) Absolute Basos (auto) Total Counted Seg Neutrophils % Seg Neuts % (Manual) Lymphocytes % (Manual) Monocytes % (Manual) Eosinophils % (Manual) Basophils % (Manual) Abs Neuts (Manual) Abs Lymphs (Manual) Abs Monocytes (Manual) Absolute Eos (Manual) Abs Basophils (Manual) Nucleated RBCs Platelet Comment Polychromasia Anisocytosis Macrocytosis Sickle Cells Target Cells [place] Bodies Schistocytes Retic Count (auto) Sodium Potassium Chloride Carbon Dioxide Anion Gap BUN Creatinine Est GFR ( Amer) Est GFR (MDRD) Non-Af Glucose Calcium Total Bilirubin Direct Bilirubin Neonat Total Bilirubin Neonat Direct Bilirubin Neonat Indirect Bili AST ALT Alkaline Phosphatase NT-Pro-B Natriuret Pep Total Protein Albumin Urine Color YELLOW Urine Appearance CLEAR Urine pH 7.0 Ur Specific [place] 1.008 Urine Protein NEGATIVE Urine Glucose (UA) NEGATIVE Urine Ketones NEGATIVE Urine Blood NEGATIVE Urine Nitrite NEGATIVE Urine Bilirubin NEGATIVE Urine Urobilinogen 2.0 H Ur Leukocyte Esterase NEGATIVE Urine WBC (Auto) 1 Urine RBC (Auto) 0 Squamous Epi Cells Auto <1 Urine Mucus (Auto) RARE Urine Ascorbic Acid NEGATIVE (ELIANA BELCHER) Discharge <MELISSA DUMONT - Last Filed: 08/02/19 06:38> <ELIANA BELCHER - Last Filed: 08/02/19 13:05> - Discharge Clinical Impression: Chronic anemia, Chronic pain syndrome Sickle cell disease Qualifiers: Sickle-cell associated disorders: with unspecified crisis Qualified Code(s): D57.00 - Hb-SS disease with crisis, unspecified Condition: Stable Disposition: HOME, SELF-CARE Instructions: Chronic Pain Control ([facility]), Oral Narcotic Medication ([facility]), Sickle Cell Crisis ([facility]) Additional Instructions: Return immediately for any new or worsening symptoms Followup with your primary care provider, call tomorrow to make a followup appointment Follow-up with Dr. Ramirez tomorrow for recheck. Referrals: HOMA BARRAZA MD [Primary Care Provider] - Follow up as needed SAVANNA RAMIREZ MD [ACTIVE STAFF] - Follow up tomorrow
[2019-08-02] MEDS ORDERED: DIPHENHYDRAMINE HCL 50 MG/ML VIAL IV ONE ×3 (00:59→13:03)
[2019-08-02] MEDS ORDERED: ONDANSETRON HCL INJ/PF 4 MG/2 ML SDV IV ONE (00:59)
[2019-08-02 01:14] LABS: ABSOLUTE RETICS # 0.095 10^6/uL (0.028-0.122); HEMATOCRIT 17.3 % (36.0-47.0); MEAN CORPUSCULAR HGB CONC 35.9 g/dL (32.0-36.0); MEAN CORPUSCULAR VOLUME 125 fl (80-97); PLATELET COUNT 228 10^3/uL (150-450); RED BLOOD COUNT 1.38 10^6/uL (3.72-5.28); RETICULOCYTE COUNT (AUTO) 6.88 % (0.66-2.85)
[2019-08-02] MEDS: HYDROMORPHONE HCL INJ/PF 2 MG/ML AMPULE IV PRN ×6 (01:18→10:56)
[2019-08-02 01:22] LABS: ALBUMIN 3.9 g/dL (3.5-5.0); ALKALINE PHOSPHATASE 123 U/L (38-126); ASPARTATE AMINO TRANSFERASE 44 U/L (14-36); BILIRUBIN,DIRECT 0.4 mg/dL (0.0-0.4); BILIRUBIN,TOTAL 4.1 mg/dL (0.2-1.3); BLOOD UREA NITROGEN 5 mg/dL (7-20); CALCIUM 8.8 mg/dL (8.4-10.2); CARBON DIOXIDE 27 mmol/L (22-30); CHLORIDE 104 mmol/L (98-107); GLUCOSE 93 mg/dL (75-110); POTASSIUM 4.2 mmol/L (3.6-5.0); TOTAL PROTEIN 6.7 g/dL (6.3-8.2)
[2019-08-02 01:28] LABS: ANION GAP 5 (5-19)
[2019-08-02 01:47] LABS: APPEARANCE,URINE CLEAR; BILIRUBIN,URINE NEGATIVE (NEGATIVE); COLOR,URINE YELLOW; GLUCOSE, URINE NEGATIVE (NEGATIVE); KETONES,URINE NEGATIVE (NEGATIVE); LEUKOCYTE ESTERASE,URINE NEGATIVE (NEGATIVE); NITRITE,URINE NEGATIVE (NEGATIVE); PROTEIN,URINE NEGATIVE (NEGATIVE); URINE SPECIFIC GRAVITY 1.008
[2019-08-02 01:47] LABS: ABSOLUTE LYMPHOCYTES# (MANUAL) 2.3 10^3/uL (0.5-4.7); ABSOLUTE MONOCYTES # (MANUAL) 0.4 10^3/uL (0.1-1.4); BASOPHILS % (MANUAL) 3 % (0-2); EOSINOPHILS % (MANUAL) 3 % (0-6); LYMPHOCYTES % (MANUAL) 46 % (13-45); MONOCYTES % (MANUAL) 8 % (3-13); NUCLEATED RED BLOOD CELLS 68 /100 WBC (0); SEGMENTED NEUTROPHILS % (MAN) 40 % (42-78); TOTAL CELLS COUNTED 100
[2019-08-02 01:55] LABS: ANISOCYTOSIS 3+
[2019-08-02 01:56] LABS: POLYCHROMASIA 1+
[2019-08-02 01:57] LABS: PLATELET COMMENT ADEQUATE
[2019-08-02 02:00] LABS: SICKLE RED CELLS 1+
[2019-08-02 02:02] LABS: HOWELL-JOLLY BODIES PRESENT; SCHISTOCYTES SLIGHT; TARGET CELLS SLIGHT
[2019-08-02 02:05] LABS: HEMOGLOBIN 6.2 g/dL (12.0-15.5)
[2019-08-02 10:23] VITALS: BP 107/55
--- NOTE | 2019-08-02 10:30 | RADIOLOGY REPORT (SQ) ---
EXAM DESCRIPTION: VENOUS BILATERAL LOWER COMPLETED DATE/TIME: 08/02/2019 10:18 am REASON FOR STUDY: leg pain/swelling hx of DVT COMPARISON: None. TECHNIQUE: Dynamic and static mart scale and color images acquired of both lower extremity venous sy stems. Selected spectral images acquired with additional compression and augmentation maneuvers. Imag es stored on PACS. LIMITATIONS: None. FINDINGS: RIGHT LEG COMMON FEMORAL AND FEMORAL: Normal phasicity, compression and augmentation. No visualized echogenic m aterial on mart scale. No defects on color images. POPLITEAL: Normal compression and augmentation. No visualized echogenic material on mart scale. No de fects on color images. CALF VESSELS: Normal compression and augmentation. No visualized echogenic material on mart scale. No defects on color image. GSV AND SSV: Normal compression. No visualized echogenic material on mart scale. No defects on color images. ANY DEEP VENOUS INSUFFICIENCY: No. ANY EVIDENCE OF POPLITEAL CYST: No. OTHER: No other significant finding. LEFT LEG COMMON FEMORAL AND FEMORAL: Normal phasicity, compression and augmentation. No visualized echogenic m aterial on mart scale. No defects on color images. POPLITEAL: Normal compression and augmentation. No visualized echogenic material on mart scale. No de fects on color images. CALF VESSELS: Normal compression and augmentation. No visualized echogenic material on mart scale. No defects on color images. GSV AND SSV: Normal compression. No visualized echogenic material on mart scale. No defects on color images. ANY DEEP VENOUS INSUFFICIENCY: No. ANY EVIDENCE POPLITEAL CYST: No. OTHER: No other significant finding. IMPRESSION: NO EVIDENCE DVT OR SVT IN EITHER LEG. TECHNICAL DOCUMENTATION: JOB ID: [id number] [employer]- All Rights Reserved Reading location - IP/workstation name: [email or web address]
[2019-08-02] MEDS ORDERED: HYDROMORPHONE HCL INJ/PF 2 MG/ML AMPULE IV ONE (13:03)
== END 2019-08-02 13:59 | disposition home or self-care (01) ==
LOC: ER 18:25
DX: D57.00 Hb-SS disease with crisis, unspecified (principal); G89.4 Chronic pain syndrome; R07.9 Chest pain, unspecified; Z86.14 Personal history of Methicillin resistant Staphylococcus aureus infection
CPT/HCPCS: 93005; 36415; 85025; 85045; 80053; 81001; 83880; 93970; 71046; 93010; J1200; J1170; J2405; J1642

== ENCOUNTER 2019-08-12 18:17 | Inpatient (IN) | payer MEDICAID ==
--- NOTE | 2019-08-12 19:13 | ER Document Report ---
ED Medical Screen (RME) - General Chief Complaint: Sickle Cell Crisis Stated Complaint: SICKLE CELL CRISIS Time Seen by Provider: 08/12/19 19:04 Primary Care Provider: HOMA BARRAZA MD [Primary Care Provider] - Follow up as needed TRAVEL OUTSIDE OF THE [place] IN LAST 30 DAYS: No - HPI Notes: 08/12/19 19:11 49-year-old female to the emergency department with complaints of chest pain, bilateral arm pain, bilateral leg pain that began yesterday. She states this is pretty consistent with her acute sickle cell pain. She states that she is not sure if she has had a fever. She denies she is had a cough. She states that the left side of her chest wall does hurt which is a little bit different than her normal chest pain. She states she think she has had a history of acute chest syndrome but she is not really sure. She was last admitted to the hospital about 6 months ago. Her equine vet is Dr. Rawls. She takes OxyContin 30 mg twice a day and 10 mg of oxycodone IR 3 times a day. She states these have not been helping her. She states that typically Dilaudid and Benadryl do. I performed a brief medical screening exam on the patient determined that the patient needs further evaluation and management by main side provider. I have placed initial orders to help expedite care. - Related Data Allergies/Adverse Reactions: doxycycline [Doxycycline] Allergy (Severe, Verified 08/12/19 19:02) Past Medical History - Social History Chew tobacco use (# tins/day): No Frequency of alcohol use: None Drug Abuse: None - Past Medical History Cardiac Medical History: Reports: Hx Heart Murmur Denies: Hx Atrial Fibrillation, Hx Congestive Heart Failure, Hx Coronary Artery Disease, Hx Heart Attack, Hx Hypercholesterolemia, Hx Hypertension, Hx Peripheral Vascular Disease Pulmonary Medical History: Denies: Hx Tuberculosis Neurological Medical History: Denies: Hx Seizures Renal/ Medical History: Reports: Hx Ovarian Cysts. 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 Denies: Hx HIV Past Surgical History: Reports: Hx Appendectomy, Hx Section, Hx Cholecystectomy, Hx Orthopedic Surgery - R knee, Hx Tonsillectomy. Denies: Hx Bowel Surgery, Hx Coronary Artery Bypass Graft, Hx Gastric Bypass Surgery, Hx Herniorrhaphy, Hx Mastectomy, Hx Pacemaker, Hx Tubal Ligation - Immunizations Immunizations up to date: Yes Hx Diphtheria, Pertussis, Tetanus Vaccination: Yes Physical Exam - Vital signs Vitals: Temp Pulse Resp BP Pulse Ox 99 F 88 24 H 107/61 98 08/12/19 18:31 08/12/19 18:31 08/12/19 18:31 08/12/19 18:31 08/12/19 18:31 Course - Vital Signs Vital signs: Temp Pulse Resp BP Pulse Ox 99 F 88 24 H 107/61 98 08/12/19 18:31 08/12/19 18:31 08/12/19 18:31 08/12/19 18:31 08/12/19 18:31 Doctor's Discharge - Discharge Referrals: HOMA BARRAZA MD [Primary Care Provider] - Follow up as needed
--- NOTE | 2019-08-12 19:59 | RADIOLOGY REPORT (SQ) ---
EXAM DESCRIPTION: CHEST 2 VIEWS COMPLETED DATE/TIME: 08/12/2019 7:20 pm REASON FOR STUDY: chest pain COMPARISON: Chest radiographs 08/01/2019 EXAM PARAMETERS: NUMBER OF VIEWS: two views TECHNIQUE: Digital Frontal and Lateral radiographic views of the chest acquired. RADIATION DOSE: NA LIMITATIONS: none FINDINGS: LUNGS AND PLEURA: No opacities, masses or pneumothorax. No pleural effusion. MEDIASTINUM AND HILAR STRUCTURES: No masses or contour abnormalities. HEART AND VASCULAR STRUCTURES: Heart normal size. Diminished pulmonary vascular congestion. BONES: No acute findings. HARDWARE: Left chest wall port catheter with the tip projecting over the superior cavoatrial junction . Right upper quadrant surgical clips. OTHER: No other significant finding. IMPRESSION: Diminished pulmonary vascular congestion. No acute pulmonary findings otherwise. TECHNICAL DOCUMENTATION: JOB ID: [id number] 2010 [employer]- All Rights Reserved Reading location - IP/workstation name: [email or web address]
[2019-08-12] MEDS ORDERED: HYDROMORPHONE HCL INJ/PF 2 MG/ML AMPULE IV ONE ×2 (21:11→22:55)
[2019-08-12] MEDS ORDERED: DIPHENHYDRAMINE HCL 50 MG/ML VIAL IV ONE (21:11)
[2019-08-12 21:29] LABS: ABSOLUTE RETICS # 0.082 10^6/uL (0.028-0.122); HEMATOCRIT 24.8 % (36.0-47.0); HEMOGLOBIN 8.7 g/dL (12.0-15.5); MEAN CORPUSCULAR HGB CONC 35.3 g/dL (32.0-36.0); MEAN CORPUSCULAR VOLUME 125 fl (80-97); PLATELET COUNT 345 10^3/uL (150-450); RED BLOOD COUNT 1.98 10^6/uL (3.72-5.28); RED CELL DISTRIBUTION WIDTH 16.3 % (11.5-14.0); RETICULOCYTE COUNT (AUTO) 4.13 % (0.66-2.85); WHITE BLOOD COUNT 5.6 10^3/uL (4.0-10.5)
[2019-08-12 21:41] LABS: ALBUMIN 4.7 g/dL (3.5-5.0); ALKALINE PHOSPHATASE 156 U/L (38-126); ANION GAP 12 (5-19); ASPARTATE AMINO TRANSFERASE 64 U/L (14-36); BILIRUBIN,DIRECT 0.6 mg/dL (0.0-0.4); BILIRUBIN,TOTAL 5.4 mg/dL (0.2-1.3); BLOOD UREA NITROGEN 11 mg/dL (7-20); CALCIUM 9.5 mg/dL (8.4-10.2); CARBON DIOXIDE 22 mmol/L (22-30); CHLORIDE 106 mmol/L (98-107); GLUCOSE 107 mg/dL (75-110); TOTAL PROTEIN 8.1 g/dL (6.3-8.2)
--- NOTE | 2019-08-12 21:47 | ER Document Report ---
ED General - General Chief Complaint: Sickle Cell Crisis Stated Complaint: SICKLE CELL CRISIS Time Seen by Provider: 08/12/19 19:04 Notes: Patient is a 49-year-old female that comes to the emergency department for chief complaint of chest pain on the left side, bilateral arm and leg pain. She has a history of sickle cell anemia. Symptoms started yesterday. She states this is similar to her usual symptoms when he she has acute sickle cell. She reports of intermittent vague shortness of breath. She denies fever, abdominal pain, vomiting, headache. She denies any cardiac history, she denies smoking or alcohol, denies recreational drugs. She states that she follows with rural sociologist Dr. Ramirez. She states her only other medical history is hemochromatosis. She has been taking her pain medication but it has not been helping, she takes OxyContin 30 mg twice a day and 10 mg of oxycodone IR 3 times a day. TRAVEL OUTSIDE OF THE [place] IN LAST 30 DAYS: No - Related Data Allergies/Adverse Reactions: doxycycline [Doxycycline] Allergy (Severe, Verified 08/12/19 19:02) Past Medical History - General Information source: Patient - Social History Smoking Status: Never Smoker Chew tobacco use (# tins/day): No Frequency of alcohol use: None Drug Abuse: None Lives with: Family Family History: Reviewed & Not Pertinent Patient has suicidal ideation: No Patient has homicidal ideation: No - Past Medical History Cardiac Medical History: Reports: Hx Heart Murmur Denies: Hx Atrial Fibrillation, Hx Congestive Heart Failure, Hx Coronary Artery Disease, Hx Heart Attack, Hx Hypercholesterolemia, Hx Hypertension, Hx Peripheral Vascular Disease Pulmonary Medical History: Denies: Hx Tuberculosis Neurological Medical History: Denies: Hx Seizures Renal/ Medical History: Reports: Hx Ovarian Cysts. 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 Denies: Hx HIV Past Surgical History: Reports: Hx Appendectomy, Hx Section, Hx Cholecystectomy, Hx Orthopedic Surgery - R knee, Hx Tonsillectomy. Denies: Hx Bowel Surgery, Hx Coronary Artery Bypass Graft, Hx Gastric Bypass Surgery, Hx Herniorrhaphy, Hx Mastectomy, Hx Pacemaker, Hx Tubal Ligation - Immunizations Immunizations up to date: Yes Hx Diphtheria, Pertussis, Tetanus Vaccination: Yes Hx Pneumococcal Vaccination: 03/20/14 Review of Systems - Review of Systems Constitutional: No symptoms reported EENT: No symptoms reported Cardiovascular: See HPI Respiratory: No symptoms reported Gastrointestinal: No symptoms reported Genitourinary: No symptoms reported Female Genitourinary: No symptoms reported Musculoskeletal: See HPI Skin: No symptoms reported Hematologic/Lymphatic: See HPI Neurological/Psychological: No symptoms reported Physical Exam - Vital signs Vitals: Temp Pulse Resp BP Pulse Ox 99 F 88 24 H 107/61 98 08/12/19 18:31 08/12/19 18:31 08/12/19 18:08/12/19 18:08/12/19 18:31 - Notes Notes: GENERAL: Alert and interactive. Appears mildly uncomfortable, shifting in the bed HEAD: Normocephalic, atraumatic. EYES: Pupils equal, round, and reactive to light. Extraocular movements intact. ENT: Oral mucosa moist, tongue midline. Oropharynx unremarkable. Airway patent. NECK: Full range of motion. Supple. Trachea midline. LUNGS: Clear to auscultation bilaterally, no wheezes, rales, or rhonchi. No re spiratory distress. Some tenderness with movement over the chest wall and with palpation over the left lateral pectoral muscle. HEART: Regular rate and rhythm. No murmur ABDOMEN: Soft, non-tender. Non-distended. EXTREMITIES: Moves all 4 extremities spontaneously. No edema, normal radial and dorsalis pedis pulses bilaterally. No cyanosis. BACK: no cervical, thoracic, lumbar midline tenderness. No saddle anesthesia, normal distal neurovascular exam. Moves all extremities in full range of motion. NEUROLOGICAL: Alert and oriented x3. Normal speech. Cranial nerves II through XII grossly intact. PSYCH: Normal affect, normal mood. SKIN: Warm, dry, normal turgor. No rashes or lesions noted. Course - Re-evaluation Re-evalutation: Patient appears uncomfortable on exam, shifting occasionally, however she does not appear to be in severe pain. Vital signs unremarkable. No fever. CBC shows anemia but this is actually not significantly changed from prior. Reticulocyte count is actually 4. Chemistry nonspecific except for indirect bilirubin which is greater than 5. Patient appears to be sickling on her workup. Troponin not elevated, EKG and chest x-ray unremarkable except for possible edema but BNP is not elevated. Patient has been medicated twice now, on reevaluation she is still somewhat uncomfortable. She states she is uncomfortable going home. Will discuss with her provider for admission for sickle cell pain crisis. Discussed with Dr. Martinez, on-call for Dr. Roberson, patient is accepted to inpatient telemetry, patient's rural sociologist will be consulted. Patient states appreciation and agreement. - Vital Signs Vital signs: Temp Pulse Resp BP Pulse Ox 98.3 F 85 18 115/70 100 08/13/19 03:29 08/13/19 03:31 08/13/19 03:29 08/13/19 03:29 08/13/19 03:29 - Laboratory Result Diagrams: 08/12/19 21:02 08/12/19 21:02 Laboratory results interpreted by me: 08/12/19 08/12/19 21:02 21:02 RBC 1.98 L Hgb 8.7 L Hct 24.8 L MCV 125 H MCH 44.0 H RDW 16.3 H Retic Count (auto) 4.13 H Total Bilirubin 5.4 H Direct Bilirubin 0.6 H AST 64 H ALT 42 H Alkaline Phosphatase 156 H Discharge - Discharge Clinical Impression: Sickle cell pain crisis Extremity pain Qualifiers: Extremity pain location: unspecified extremity Qualified Code(s): M79.609 - Pain in unspecified limb Chest pain Qualifiers: Chest pain type: unspecified Qualified Code(s): R07.9 - Chest pain, unspecified Condition: Stable Disposition: ADMITTED INPATIENT Admitting Provider: Da - by Dr. Martinez Unit Admitted: Medical Floor
[2019-08-12 21:57] LABS: ABSOLUTE MONOCYTES # (MANUAL) 0.4 10^3/uL (0.1-1.4); ANISOCYTOSIS 1+; BASOPHILS % (MANUAL) 1 % (0-2); EOSINOPHILS % (MANUAL) 4 % (0-6); LYMPHOCYTES % (MANUAL) 35 % (13-45); MONOCYTES % (MANUAL) 8 % (3-13); NUCLEATED RED BLOOD CELLS 7 /100 WBC (0); POIKILOCYTOSIS 2+; SEGMENTED NEUTROPHILS % (MAN) 52 % (42-78); TOTAL CELLS COUNTED 100
[2019-08-12 21:58] LABS: OVALOCYTES 1+; PLATELET COMMENT ADEQUATE; TARGET CELLS 1+
[2019-08-12] MEDS ORDERED: ONDANSETRON HCL INJ/PF 4 MG/2 ML SDV IV ONE (22:55)
--- NOTE | 2019-08-12 23:12 | EKG REPORT ---
SEVERITY:- NORMAL ECG - SINUS RHYTHM : Confirmed by: Keyla Alexander 12-Aug-2019 23:11:52
--- NOTE | 2019-08-12 23:12 | EKG REPORT ---
SEVERITY:- ABNORMAL ECG - SINUS RHYTHM POSTERIOR INFARCT : Confirmed by: Keyla Alexander 12-Aug-2019 23:11:59
[2019-08-12 23:37] LABS: NT PRO BNP 54 pg/mL (<125)
[2019-08-12 23:38] LABS: TROPONIN I < 0.012 ng/mL
[2019-08-12] MEDS ORDERED: ACETAMINOPHEN 325 MG TABLET PO PRN (23:57)
[2019-08-12] MEDS ORDERED: NORMAL SALINE 1000 ML 1,000 ML IV PRN (23:57)
[2019-08-13] MEDS: HYDROMORPHONE HCL INJ/PF 2 MG/ML AMPULE IV PRN ×7 (00:38→22:15)
[2019-08-13] MEDS: DIPHENHYDRAMINE HCL 25 MG CAPSULE PO PRN ×2 (00:42→06:50)
[2019-08-13] MEDS: FAMOTIDINE 20 MG TABLET PO SCH ×3 (00:42→21:09)
[2019-08-13] MEDS ORDERED: HYDROMORPHONE HCL INJ/PF 2 MG/ML AMPULE ONE (08:13)
[2019-08-13] MEDS ORDERED: HYDROMORPHONE HCL INJ/PF 2 MG/ML AMPULE IV PRN (08:14)
[2019-08-13] MEDS ORDERED: HYDROMORPHONE HCL INJ/PF 2 MG/ML AMPULE IV ONE (08:30)
--- NOTE | 2019-08-13 08:32 | PDOC CONSULTATION ---
Consultation Consult Date: 08/13/19 Provider Consulted: SAVANNA AWAN Consult reason:: Hematology/Oncology consultation was requested for patient with Sickle Cell Anemia well known to me. History of Present Illness Admission Date/PCP: 08/13/19 00:22 HOMA BARRAZA MD History of Present Illness: WILLIE ALAN is a 49 year old female who has suffered with Hgb SS disease all her life. She presented with 2 day history of increased pain in the chest and joints, typicl of sickle cell crisis. She tried IV fluids as outpatient, but pain persisted. Today, she is complaining of occasional chest pains, anxiety, and increased pain in her ankle. Otherwise, no atypical symptoms from her usual crises. She is admitted about ever 4-6 weeks. 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 Denies: HIV Past Surgical History Past Surgical History: Reports: Appendectomy, Section, Cholecystectomy, Orthopedic Surgery - R knee, Tonsillectomy Denies: Amputation, Coronary Artery Bypass Graft, Gastric Bypass Surgery, Herniorrhaphy, Mastectomy, Pacemaker, Tubal Ligation Social History Lives with: Family Smoking Status: Never Smoker Electronic Cigarette use?: No Frequency of Alcohol Use: None Hx Recreational Drug Use: No Drugs: None Hx Prescription Drug Abuse: No Family History Parental Family History Reviewed: Yes Children Family History Reviewed: No Sibling(s) Family History Reviewed.: Yes - Brother also with SSA Medication/Allergy Allergies/Adverse Reactions: doxycycline [Doxycycline] Allergy (Severe, Verified 08/12/19 19:02) Review of Systems Constitutional: ABSENT: fever(s), headache(s) Eyes: ABSENT: visual disturbances Ears: ABSENT: hearing changes Nose, Mouth, and Throat: ABSENT: sore throat Cardiovascular: PRESENT: chest pain Respiratory: PRESENT: dyspnea Gastrointestinal: PRESENT: nausea Genitourinary: ABSENT: dysuria Musculoskeletal: PRESENT: back pain Integumentary: PRESENT: pruritus Neurological: ABSENT: abnormal speech, confusion Psychiatric: PRESENT: anxiety Hematologic/Lymphatic: ABSENT: easy bleeding Physical Exam Vital Signs: Temp Pulse Resp BP Pulse Ox 98.3 F 75 18 115/70 100 08/13/19 03:29 08/13/19 07:00 08/13/19 03:29 08/13/19 03:29 08/13/19 03:29 Intake & Output 08/12/19 08/13/19 08/14/19 06:59 06:59 06:59 Weight 62.4 kg General appearance: PRESENT: no acute distress, well-developed, well-nourished Exam: 49 year old female. Head exam: PRESENT: normocephalic Eye exam: PRESENT: EOMI, PERRLA Mouth exam: PRESENT: tongue midline Teeth exam: PRESENT: other - Front tooth missing. Neck exam: ABSENT: JVD, lymphadenopathy, tenderness Respiratory exam: PRESENT: clear to auscultation carolyn, unlabored Cardiovascular exam: PRESENT: RRR GI/Abdominal exam: PRESENT: soft, tenderness Extremities exam: ABSENT: pedal edema Musculoskeletal exam: PRESENT: normal inspection Neurological exam: PRESENT: alert, awake, oriented to person, oriented to place, oriented to time, oriented to situation Psychiatric exam: PRESENT: appropriate affect Skin exam: PRESENT: normal color, other - Left ankle with known ischemic le sions. No change from previous. Results Laboratory Results: 08/12/19 21:02 08/12/19 21:02 08/12/19 08/12/19 21:02 21:02 WBC 5.6 RBC 1.98 L Hgb 8.7 L Hct 24.8 L MCV 125 H MCH 44.0 H MCHC 35.3 RDW 16.3 H Plt Count 345 Seg Neutrophils % Not Reportable Retic Count (auto) 4.13 H Sodium 139.8 Potassium 4.0 Chloride 106 Carbon Dioxide 22 Anion Gap 12 BUN 11 Creatinine 0.52 Est GFR ( Amer) > 60 Glucose 107 Calcium 9.5 Total Bilirubin 5.4 H AST 64 H Alkaline Phosphatase 156 H Total Protein 8.1 Albumin 4.7 08/12/19 22:43 Troponin I < 0.012 NT-Pro-B Natriuret Pep 54 Impressions: Chest X-Ray 02/23/20 19:10 IMPRESSION: Diminished pulmonary vascular congestion. No acute pulmonary findings otherwise. Assessment & Plan - Diagnosis (1) Sickle cell pain crisis Is this a current diagnosis for this admission?: Yes Plan: Will continue her home medications of OxyContin 30 mg PO BID. Will hold her oxycodone 10 mg PRN and treat with dilaudid 2 mg IV q 2 hours PRN. Will continue gabapentin as well. (2) Hb-SS disease with vaso-occlusive crisis Is this a current diagnosis for this admission?: Yes Plan: Change to 1/2 NS at 150 cc/hr and continue oxygen. She will use Phenergan and benadryl PRN. Continue Hydrea and Folic acid. (3) Iron overload due to repeated red blood cell transfusions Is this a current diagnosis for this admission?: Yes Plan: I will increase her Jadenu to 360 mg 2 tabs daily. She may use her own supply. - Plan Summary Plan Summary: Please call me with any questions or concerns.
[2019-08-13] MEDS: FOLIC ACID 1 MG TABLET PO SCH (10:01)
[2019-08-13] MEDS: DOCUSATE SODIUM 100 MG CAPSULE PO SCH ×2 (10:01→19:22)
[2019-08-13] MEDS: CHOLECALCIFEROL (D3) 1,000 UNIT (25 MCG) TABLET PO SCH (10:02)
[2019-08-13] MEDS: HYDROXYUREA 500 MG CAPSULE PO SCH ×3 (10:02→19:22)
[2019-08-13] MEDS: GABAPENTIN 300 MG CAPSULE PO SCH ×2 (10:02→21:08)
[2019-08-13] MEDS: OXYCODONE HCL SR 10 MG TABLET PO SCH ×2 (10:03→21:08)
[2019-08-13] MEDS: PROMETHAZINE HCL INJ 25 MG/1 ML VIAL IV PRN ×2 (11:40→19:41)
[2019-08-13] MEDS: HEPARIN SOD (PORCINE) 5,000 UNIT/ML 1 ML VIAL SUBCUT SCH ×2 (14:52→21:08)
[2019-08-13] MEDS: DIPHENHYDRAMINE HCL 50 MG/ML VIAL IV PRN ×2 (14:53→19:41)
[2019-08-13] MEDS: ONDANSETRON HCL INJ/PF 4 MG/2 ML SDV IV PRN (17:12)
--- NOTE | 2019-08-13 20:59 | PDOC H&P ---
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 She was recently discharged from this hospital on 07/13/2019 when she presented with acute sickle cell bone pain crisis, since discharge from the hospital she has been to the emergency room twice requesting for admission. Patient has become essentially dependent on opioid, she is addicted to narcotics she is on megadoses of opioid outpatient, when she get admitted she also continue to get megadoses of opioid intravenously. The challenge is to discern a true bone pain crisis which is basically subjective there is no objective way to measure her claim of bone pain crisis, the lab work that was done in the ER was normal, hemoglobin is 8 her baseline hemoglobin is about 5-7 when I saw her on the floor she does not appear to me as someone in severe pain. I believe she needs to go to treatment center to help her with her opioid addiction Past Medical History Cardiac Medical History: Reports: Heart Murmur Hematology: Reports: Sickle Cell Disease Infectious Medical History: 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 Past Surgical History Past Surgical History: Reports: Appendectomy, Section, Cholecystectomy, Orthopedic Surgery - R knee, Tonsillectomy Social History Lives with: Family Smoking Status: Never Smoker Electronic Cigarette use?: No Frequency of Alcohol Use: None Hx Recreational Drug Use: No Drugs: None Hx Prescription Drug Abuse: No Family History Family History: Reviewed & Not Pertinent Parental Family History Reviewed: Yes Children Family History Reviewed: Yes Sibling(s) Family History Reviewed.: Yes Medication/Allergy Home Medications: Deferasirox [Jadenu] 360 mg PO DAILY 08/13/19 Epoetin Federico [Procrit] 60,000 unit IJ FR@1000 08/13/19 Ergocalciferol (Vitamin D2) [Vitamin D2] 50 mcg PO WE@1000 08/13/19 Folic Acid 1 mg PO DAILY 08/13/19 Gabapentin [Neurontin 300 mg Capsule] 300 mg PO Q12 08/13/19 Hydroxyurea [Hydrea 500 Mg Capsule] 500 mg PO TID 02/24/20 Oxycodone HCl [Oxy-Ir 5 mg Tablet] 10 mg PO Q6HP PRN 08/13/19 Oxycodone HCl [Oxycodone HCl ER] 30 mg PO Q12 08/13/19 Allergies/Adverse Reactions: doxycycline [Doxycycline] Allergy (Severe, Verified 08/12/19 19:02) Review of Systems Cardiovascular: PRESENT: chest pain Musculoskeletal: PRESENT: back pain, muscle weakness Physical Exam Vital Signs: Temp Pulse Resp BP Pulse Ox 98.6 F 90 13 106/56 L 100 08/13/19 15:03 08/13/19 19:00 08/13/19 15:03 08/13/19 15:03 08/13/19 15:03 Intake & Output 08/12/19 08/13/19 08/14/19 06:59 06:59 06:59 Intake Total 752 Output Total 650 Balance 102 Weight 62.4 kg General appearance: PRESENT: mild distress Head exam: PRESENT: atraumatic, normocephalic Eye exam: PRESENT: conjunctiva pale Neck exam: PRESENT: full ROM Respiratory exam: PRESENT: clear to auscultation carolyn Cardiovascular exam: PRESENT: RRR, +S1, +S2 Vascular exam: PRESENT: normal capillary refill GI/Abdominal exam: PRESENT: normal bowel sounds, soft Rectal exam: PRESENT: deferred Neurological exam: PRESENT: alert, CN II-XII grossly intact. ABSENT: motor sensory deficit Psychiatric exam: PRESENT: appropriate affect, normal mood Skin exam: PRESENT: dry, intact, warm Results Laboratory Results: 08/12/19 21:02 08/12/19 21:02 08/12/19 08/12/19 21:02 21:02 WBC 5.6 RBC 1.98 L Hgb 8.7 L Hct 24.8 L MCV 125 H MCH 44.0 H MCHC 35.3 RDW 16.3 H Plt Count 345 Seg Neutrophils % Not Reportable Retic Count (auto) 4.13 H Sodium 139.8 Potassium 4.0 Chloride 106 Carbon Dioxide 22 Anion Gap 12 BUN 11 Creatinine 0.52 Est GFR ( Amer) > 60 Glucose 107 Calcium 9.5 Total Bilirubin 5.4 H AST 64 H Alkaline Phosphatase 156 H Total Protein 8.1 Albumin 4.7 08/12/19 22:43 Troponin I < 0.012 NT-Pro-B Natriuret Pep 54 Impressions: Chest X-Ray 08/12/19 19:10 IMPRESSION: Diminished pulmonary vascular congestion. No acute pulmonary findings otherwise. Assessment & Plan - Diagnosis (1) Sickle cell anemia with pain Is this a current diagnosis for this admission?: Yes Plan: Patient is admitted for management, consult hematology
[2019-08-14] MEDS: HYDROMORPHONE HCL INJ/PF 2 MG/ML AMPULE IV PRN ×7 (01:29→22:17)
[2019-08-14] MEDS: PROMETHAZINE HCL INJ 25 MG/1 ML VIAL IV PRN ×4 (01:29→22:17)
[2019-08-14] MEDS: DIPHENHYDRAMINE HCL 50 MG/ML VIAL IV PRN ×4 (01:30→19:30)
[2019-08-14] MEDS: HEPARIN SOD (PORCINE) 5,000 UNIT/ML 1 ML VIAL SUBCUT SCH ×3 (05:34→22:17)
--- NOTE | 2019-08-14 08:16 | PDOC PROGRESS REPORT ---
Subjective Progress Note for:: 08/14/19 Subjective:: Patient still with considerable pain. Headache, some nausea. No constipation. No dyspnea. Reason For Visit: SICKLE CELL CRISIS Physical Exam Vital Signs: Temp Pulse Resp BP Pulse Ox 98.9 F 78 18 110/61 100 08/14/19 03:20 08/14/19 07:00 08/14/19 03:20 08/14/19 03:20 08/14/19 03:20 Intake & Output 08/13/19 08/14/19 08/15/19 06:59 06:59 06:59 Intake Total 752 Output Total 2049 Balance -1298 Weight 62.4 kg 67.2 kg General appearance: PRESENT: well-developed, well-nourished Head exam: PRESENT: normocephalic Respiratory exam: PRESENT: clear to auscultation carolyn, unlabored Cardiovascular exam: PRESENT: RRR Extremities exam: ABSENT: pedal edema Neurological exam: PRESENT: alert, awake Psychiatric exam: PRESENT: appropriate affect Skin exam: PRESENT: normal color Results Laboratory Results: 08/12/19 21:02 08/12/19 21:02 08/12/19 22:43 Troponin I < 0.012 NT-Pro-B Natriuret Pep 54 Impressions: Chest X-Ray 08/12/19 19:10 IMPRESSION: Diminished pulmonary vascular congestion. No acute pulmonary findings otherwise. Assessment & Plan - Diagnosis (1) Sickle cell pain crisis Is this a current diagnosis for this admission?: Yes Plan: I will increase dilaudid. She is only on 30 mg BID of long-acting pain meds and has not increased this dose in over 6 months. Although she does have painful crises, in between, she is quite stable on her meds. No evidence of abuse. (2) Hb-SS disease with vaso-occlusive crisis Is this a current diagnosis for this admission?: Yes Plan: Continue oxygen and fluids. I will check labs in AM, including LDH. (3) Iron overload due to repeated red blood cell transfusions Is this a current diagnosis for this admission?: Yes Plan: She should restart her Jadenu once available. I have increased her dose. - Time Time Spent with patient: 15-24 minutes
[2019-08-14] MEDS: ONDANSETRON HCL INJ/PF 4 MG/2 ML SDV IV PRN ×2 (09:05→19:30)
[2019-08-14] MEDS: 1/2 NORMAL SALINE 1,000 ML IV PRN ×2 (09:06→22:27)
[2019-08-14] MEDS: CHOLECALCIFEROL (D3) 1,000 UNIT (25 MCG) TABLET PO SCH (09:07)
[2019-08-14] MEDS: OXYCODONE HCL SR 10 MG TABLET PO SCH ×2 (09:08→22:16)
[2019-08-14] MEDS: FAMOTIDINE 20 MG TABLET PO SCH ×2 (09:09→22:17)
[2019-08-14] MEDS: DOCUSATE SODIUM 100 MG CAPSULE PO SCH ×2 (09:09→17:48)
[2019-08-14] MEDS: HYDROXYUREA 500 MG CAPSULE PO SCH ×3 (09:09→17:49)
[2019-08-14] MEDS: FOLIC ACID 1 MG TABLET PO SCH (09:09)
[2019-08-14] MEDS: GABAPENTIN 300 MG CAPSULE PO SCH ×2 (09:09→22:17)
--- NOTE | 2019-08-14 21:12 | PDOC PROGRESS REPORT ---
Subjective Progress Note for:: 08/14/19 Subjective:: Patient seen by the bedside, she is in deep sleep at the moment hardly arousable to verbal command Reason For Visit: SICKLE CELL CRISIS Physical Exam Vital Signs: Temp Pulse Resp BP Pulse Ox 97.7 F 89 20 123/65 100 08/14/19 19:22 08/14/19 19:22 08/14/19 19:22 08/14/19 19:22 08/14/19 19:22 Intake & Output 08/13/19 08/14/19 08/15/19 06:59 06:59 06:59 Intake Total 752 Output Total 2049 2250 Balance -1298 -2250 Weight 62.4 kg 67.2 kg General appearance: PRESENT: no acute distress Eye exam: PRESENT: PERRLA Respiratory exam: PRESENT: clear to auscultation carolyn Cardiovascular exam: PRESENT: +S1, +S2 GI/Abdominal exam: PRESENT: soft Neurological exam: PRESENT: alert Results Laboratory Results: 08/12/19 21:02 08/12/19 21:02 08/12/19 22:43 Troponin I < 0.012 NT-Pro-B Natriuret Pep 54 Impressions: Chest X-Ray 08/12/19 19:10 IMPRESSION: Diminished pulmonary vascular congestion. No acute pulmonary findings otherwise. Assessment & Plan - Diagnosis (1) Sickle cell anemia with pain Is this a current diagnosis for this admission?: Yes Plan: Continue hydration follow labs (2) Opioid dependence Qualifiers: Substance use status: with unspecified opioid-induced disorder Qualified Code(s): F11.29 - Opioid dependence with unspecified opioid-induced disorder Is this a current diagnosis for this admission?: Yes - Time Time Spent with patient: 15-24 minutes Level of Care: IMCU
[2019-08-14 22:29] LABS: HEMATOCRIT 22.7 % (36.0-47.0); MEAN CORPUSCULAR HEMOGLOBIN 44.2 pg (27.0-33.4); MEAN CORPUSCULAR HGB CONC 35.2 g/dL (32.0-36.0); MEAN CORPUSCULAR VOLUME 126 fl (80-97); PLATELET COUNT 292 10^3/uL (150-450); RED CELL DISTRIBUTION WIDTH 16.8 % (11.5-14.0); WHITE BLOOD COUNT 7.9 10^3/uL (4.0-10.5)
[2019-08-14 22:41] LABS: ALBUMIN 4.7 g/dL (3.5-5.0); ALKALINE PHOSPHATASE 137 U/L (38-126); ANION GAP 11 (5-19); ASPARTATE AMINO TRANSFERASE 68 U/L (14-36); BILIRUBIN,DIRECT 0.4 mg/dL (0.0-0.4); BLOOD UREA NITROGEN 9 mg/dL (7-20); CALCIUM 9.1 mg/dL (8.4-10.2); CARBON DIOXIDE 22 mmol/L (22-30); CHLORIDE 104 mmol/L (98-107); GLUCOSE 82 mg/dL (75-110); POTASSIUM 4.5 mmol/L (3.6-5.0); TOTAL PROTEIN 8.2 g/dL (6.3-8.2)
[2019-08-14 23:06] LABS: ABSOLUTE LYMPHOCYTES# (MANUAL) 3.6 10^3/uL (0.5-4.7); ABSOLUTE MONOCYTES # (MANUAL) 0.6 10^3/uL (0.1-1.4); ANISOCYTOSIS 1+; BASOPHILS % (MANUAL) 0 % (0-2); EOSINOPHILS % (MANUAL) 3 % (0-6); LYMPHOCYTES % (MANUAL) 46 % (13-45); MONOCYTES % (MANUAL) 8 % (3-13); NUCLEATED RED BLOOD CELLS 9 /100 WBC (0); POIKILOCYTOSIS 2+; SEGMENTED NEUTROPHILS % (MAN) 43 % (42-78); SICKLE RED CELLS SLIGHT; TOTAL CELLS COUNTED 100
[2019-08-14 23:08] LABS: PLATELET COMMENT ADEQUATE
[2019-08-15] MEDS: DIPHENHYDRAMINE HCL 50 MG/ML VIAL IV PRN ×4 (02:06→23:42)
[2019-08-15] MEDS: HYDROMORPHONE HCL INJ/PF 2 MG/ML AMPULE IV PRN ×7 (02:06→23:42)
[2019-08-15] MEDS: HEPARIN SOD (PORCINE) 5,000 UNIT/ML 1 ML VIAL SUBCUT SCH ×3 (06:10→22:04)
[2019-08-15] MEDS: 1/2 NORMAL SALINE 1,000 ML IV PRN (06:11)
[2019-08-15 07:03] LABS: HEMATOCRIT 19.8 % (36.0-47.0); MEAN CORPUSCULAR HEMOGLOBIN 44.8 pg (27.0-33.4); MEAN CORPUSCULAR HGB CONC 36.3 g/dL (32.0-36.0); MEAN CORPUSCULAR VOLUME 124 fl (80-97); PLATELET COUNT 279 10^3/uL (150-450); RED CELL DISTRIBUTION WIDTH 15.9 % (11.5-14.0); WHITE BLOOD COUNT 6.2 10^3/uL (4.0-10.5)
[2019-08-15 07:19] LABS: ALBUMIN 3.9 g/dL (3.5-5.0); ALKALINE PHOSPHATASE 114 U/L (38-126); ANION GAP 10 (5-19); ASPARTATE AMINO TRANSFERASE 57 U/L (14-36); BILIRUBIN,DIRECT 0.5 mg/dL (0.0-0.4); BILIRUBIN,TOTAL 3.9 mg/dL (0.2-1.3); BLOOD UREA NITROGEN 10 mg/dL (7-20); CALCIUM 8.5 mg/dL (8.4-10.2); CARBON DIOXIDE 23 mmol/L (22-30); CHLORIDE 104 mmol/L (98-107); GLUCOSE 81 mg/dL (75-110); POTASSIUM 4.2 mmol/L (3.6-5.0)
[2019-08-15 07:57] LABS: ABSOLUTE LYMPHOCYTES# (MANUAL) 2.7 10^3/uL (0.5-4.7); ABSOLUTE MONOCYTES # (MANUAL) 0.1 10^3/uL (0.1-1.4); BASOPHILS % (MANUAL) 1 % (0-2); EOSINOPHILS % (MANUAL) 8 % (0-6); LYMPHOCYTES % (MANUAL) 43 % (13-45); MONOCYTES % (MANUAL) 2 % (3-13); NUCLEATED RED BLOOD CELLS 5 /100 WBC (0); SEGMENTED NEUTROPHILS % (MAN) 46 % (42-78); TOTAL CELLS COUNTED 100
[2019-08-15 08:01] LABS: ANISOCYTOSIS SLIGHT; POIKILOCYTOSIS 1+; POLYCHROMASIA 1+
[2019-08-15 08:02] LABS: HOWELL-JOLLY BODIES PRESENT; OVALOCYTES 1+; PAPPENHEIMER BODIES PRESENT; PLATELET LARGE PRESENT; SCHISTOCYTES SLIGHT; TARGET CELLS SLIGHT; TEAR DROP CELLS SLIGHT
[2019-08-15 08:03] LABS: PLATELET COMMENT ADEQUATE
[2019-08-15 08:04] LABS: HEMOGLOBIN 7.2 g/dL (12.0-15.5)
--- NOTE | 2019-08-15 08:43 | PDOC PROGRESS REPORT ---
Subjective Progress Note for:: 08/15/19 Subjective:: Patient states that pain is still present, but current dose of dilaudid is adequate. She is still having pain in her ankle. She is asking for an ointment to put on this. No other new complaints. Reason For Visit: SICKLE CELL CRISIS Physical Exam Vital Signs: Temp Pulse Resp BP Pulse Ox 98.5 F 78 20 107/62 100 08/15/19 04:17 08/15/19 04:17 08/15/19 04:17 08/15/19 04:17 08/15/19 04:17 Intake & Output 08/14/19 08/15/19 08/16/19 06:59 06:59 06:59 Intake Total 752 2480 Output Total 2050 1260 Balance -1298 -2170 Weight 67.2 kg 66.4 kg General appearance: PRESENT: well-developed, well-nourished Respiratory exam: PRESENT: clear to auscultation carolyn, unlabored Cardiovascular exam: PRESENT: RRR Extremities exam: PRESENT: other - No change from previous. Neurological exam: PRESENT: alert, awake Psychiatric exam: PRESENT: appropriate affect Skin exam: PRESENT: normal color Results Laboratory Results: 08/15/19 06:06 08/15/19 06:06 08/14/19 08/14/19 08/15/19 22:12 22:12 06:06 WBC 7.9 6.2 RBC 1.80 L 1.60 L Hgb 8.0 L 7.2 L Hct 22.7 L 19.8 L MCV 126 H 124 H MCH 44.2 H 44.8 H MCHC 35.2 36.3 H RDW 16.8 H 15.9 H Plt Count 292 279 Seg Neutrophils % Not Reportable Not Reportable Sodium 136.5 L Potassium 4.5 Chloride 104 Carbon Dioxide 22 Anion Gap 11 BUN 9 Creatinine 0.58 Est GFR ( Amer) > 60 Glucose 82 Calcium 9.1 Total Bilirubin 4.0 H AST 68 H Alkaline Phosphatase 137 H Total Protein 8.2 Albumin 4.7 08/15/19 06:06 WBC RBC Hgb Hct MCV MCH MCHC RDW Plt Count Seg Neutrophils % Sodium 137.2 Potassium 4.2 Chloride 104 Carbon Dioxide 23 Anion Gap 10 BUN 10 Creatinine 0.61 Est GFR ( Amer) > 60 Glucose 81 Calcium 8.5 Total Bilirubin 3.9 H AST 57 H Alkaline Phosphatase 114 Total Protein 7.0 Albumin 3.9 08/12/19 22:43 Troponin I < 0.012 NT-Pro-B Natriuret Pep 54 Impressions: Chest X-Ray 08/12/19 19:10 IMPRESSION: Diminished pulmonary vascular congestion. No acute pulmonary findings otherwise. Assessment & Plan - Diagnosis (1) Sickle cell pain crisis Is this a current diagnosis for this admission?: Yes Plan: No changes to pain meds today. HGB is stable. LDH is starting to come down. (2) Hb-SS disease with vaso-occlusive crisis Is this a current diagnosis for this admission?: Yes (3) Iron overload due to repeated red blood cell transfusions Is this a current diagnosis for this admission?: Yes Plan: SHe has been encouraged to take her Jadenu. - Time Time Spent with patient: 15-24 minutes - Plan Summary Plan Summary: I will order banana bag daily as well as antibiotic ointment for her ankle.
[2019-08-15] MEDS: CHOLECALCIFEROL (D3) 1,000 UNIT (25 MCG) TABLET PO SCH (09:48)
[2019-08-15] MEDS: ONDANSETRON HCL INJ/PF 4 MG/2 ML SDV IV PRN ×2 (09:48→23:56)
[2019-08-15] MEDS: PROMETHAZINE HCL INJ 25 MG/1 ML VIAL IV PRN ×3 (09:48→19:44)
[2019-08-15] MEDS: FAMOTIDINE 20 MG TABLET PO SCH ×2 (09:48→22:03)
[2019-08-15] MEDS: FOLIC ACID 1 MG TABLET PO SCH (09:50)
[2019-08-15] MEDS: OXYCODONE HCL SR 10 MG TABLET PO SCH ×2 (09:50→22:03)
[2019-08-15] MEDS: HYDROXYUREA 500 MG CAPSULE PO SCH ×3 (09:51→17:23)
[2019-08-15] MEDS: DOCUSATE SODIUM 100 MG CAPSULE PO SCH ×2 (09:51→17:23)
[2019-08-15] MEDS: NEOMY/BACITRAC ZN/POLY OINT 15 GM TP SCH ×2 (09:51→17:23)
[2019-08-15] MEDS: GABAPENTIN 300 MG CAPSULE PO SCH ×2 (09:51→22:03)
--- NOTE | 2019-08-15 17:51 | PDOC PROGRESS REPORT ---
Subjective Progress Note for:: 08/15/19 Subjective:: Patient seen by the bedside, patient hardly responding verbally, I have to apply sternal pressure to wake her up and immediately she fell back to sleep, the nurses says she been requiring Dilaudid 4 mg every 2 hours it is supposed to be as needed but nurses said she is been asking for it every 2 hours consistently Reason For Visit: SICKLE CELL CRISIS Physical Exam Vital Signs: Temp Pulse Resp BP Pulse Ox 98.7 F 84 16 106/58 L 94 08/15/19 16:48 08/15/19 16:48 08/15/19 16:48 08/15/19 16:48 08/15/19 16:48 Intake & Output 08/14/19 08/15/19 08/16/19 06:59 06:59 06:59 Intake Total 752 2480 260 Output Total 2050 4650 Balance -1298 -2170 260 Weight 67.2 kg 66.4 kg Respiratory exam: PRESENT: clear to auscultation carolyn Cardiovascular exam: PRESENT: +S1, +S2 GI/Abdominal exam: PRESENT: soft Neurological exam: PRESENT: altered Results Laboratory Results: 08/15/19 06:06 08/15/19 06:06 08/14/19 08/14/19 08/15/19 22:12 22:12 06:06 WBC 7.9 6.2 RBC 1.80 L 1.60 L Hgb 8.0 L 7.2 L Hct 22.7 L 19.8 L MCV 126 H 124 H MCH 44.2 H 44.8 H MCHC 35.2 36.3 H RDW 16.8 H 15.9 H Plt Count 292 279 Seg Neutrophils % Not Reportable Not Reportable Sodium 136.5 L Potassium 4.5 Chloride 104 Carbon Dioxide 22 Anion Gap 11 BUN 9 Creatinine 0.58 Est GFR ( Amer) > 60 Glucose 82 Calcium 9.1 Total Bilirubin 4.0 H AST 68 H Alkaline Phosphatase 137 H Total Protein 8.2 Albumin 4.7 08/15/19 06:06 WBC RBC Hgb Hct MCV MCH MCHC RDW Plt Count Seg Neutrophils % Sodium 137.2 Potassium 4.2 Chloride 104 Carbon Dioxide 23 Anion Gap 10 BUN 10 Creatinine 0.61 Est GFR ( Amer) > 60 Glucose 81 Calcium 8.5 Total Bilirubin 3.9 H AST 57 H Alkaline Phosphatase 114 Total Protein 7.0 Albumin 3.9 08/13/19 05:08 Clean Catch Midstream Urine Culture - Final Escherichia Coli 08/12/19 22:43 Troponin I < 0.012 NT-Pro-B Natriuret Pep 54 Impressions: Chest X-Ray 08/12/19 19:10 IMPRESSION: Diminished pulmonary vascular congestion. No acute pulmonary findings otherwise. Assessment & Plan - Diagnosis (1) Sickle cell anemia with pain Is this a current diagnosis for this admission?: Yes (2) Opioid dependence Qualifiers: Substance use status: with unspecified opioid-induced disorder Qualified Code(s): F11.29 - Opioid dependence with unspecified opioid-induced disorder Is this a current diagnosis for this admission?: Yes Plan: Patient is completely opioid dependent, unable to function independently without opioid - Time Time Spent with patient: 25-34 minutes Level of Care: IMCU
[2019-08-15] MEDS ORDERED: NORMAL SALINE 1000 ML 1,000 ML with POTASSIUM CHLORIDE 20 MEQ, MAGNESIUM SULFATE 8 MEQ,... IV SCH ×5 (18:00)
[2019-08-16] MEDS: HYDROMORPHONE HCL INJ/PF 2 MG/ML AMPULE IV PRN ×6 (02:00→22:05)
[2019-08-16] MEDS: PROMETHAZINE HCL INJ 25 MG/1 ML VIAL IV PRN ×4 (02:01→18:21)
[2019-08-16] MEDS: 1/2 NORMAL SALINE 1,000 ML IV PRN ×2 (02:01→23:58)
[2019-08-16] MEDS: DIPHENHYDRAMINE HCL 50 MG/ML VIAL IV PRN ×4 (05:25→18:21)
[2019-08-16] MEDS: HEPARIN SOD (PORCINE) 5,000 UNIT/ML 1 ML VIAL SUBCUT SCH ×3 (05:25→22:06)
--- NOTE | 2019-08-16 07:23 | PDOC PROGRESS REPORT ---
Subjective Progress Note for:: 08/16/19 Subjective:: Patient states the medications are working and her pain is getting better. She was not able to walk yesterday, but she tells me she will get up and walk today. She is trying to eat and drink. ROS: No dyspnea. No constipation. Reason For Visit: SICKLE CELL CRISIS Physical Exam Vital Signs: Temp Pulse Resp BP Pulse Ox 97.7 F 84 20 132/68 H 100 08/16/19 04:57 08/16/19 04:57 08/16/19 04:57 08/16/19 04:57 08/16/19 04:57 Intake & Output 08/15/19 08/16/19 08/17/19 06:59 06:59 06:59 Intake Total 2480 2057 Output Total 4650 2400 Balance -2170 -343 Weight 66.4 kg 62.9 kg General appearance: PRESENT: well-developed, well-nourished Head exam: PRESENT: normocephalic Respiratory exam: PRESENT: unlabored Extremities exam: PRESENT: other - No change in ankles. No skin breakdown currently. Musculoskeletal exam: PRESENT: other - Chronic joint deformities. Neurological exam: PRESENT: alert, awake Psychiatric exam: PRESENT: appropriate affect Skin exam: PRESENT: normal color Results Laboratory Results: 08/15/19 06:06 08/15/19 06:06 08/15/19 08/15/19 06:06 06:06 WBC 6.2 RBC 1.60 L Hgb 7.2 L Hct 19.8 L MCV 124 H MCH 44.8 H MCHC 36.3 H RDW 15.9 H Plt Count 279 Seg Neutrophils % Not Reportable Sodium 137.2 Potassium 4.2 Chloride 104 Carbon Dioxide 23 Anion Gap 10 BUN 10 Creatinine 0.61 Est GFR ( Amer) > 60 Glucose 81 Calcium 8.5 Total Bilirubin 3.9 H AST 57 H Alkaline Phosphatase 114 Total Protein 7.0 Albumin 3.9 08/13/19 05:08 Clean Catch Midstream Urine Culture - Final Escherichia Coli 08/12/19 22:43 Troponin I < 0.012 NT-Pro-B Natriuret Pep 54 Impressions: Chest X-Ray 08/12/19 19:10 IMPRESSION: Diminished pulmonary vascular congestion. No acute pulmonary findings otherwise. Assessment & Plan - Diagnosis (1) Sickle cell pain crisis Is this a current diagnosis for this admission?: Yes Plan: No changes today. I have strongly encouraged her to get out of bed today. Will start weaning narcotics tomorrow. (2) Hb-SS disease with vaso-occlusive crisis Is this a current diagnosis for this admission?: Yes (3) Iron overload due to repeated red blood cell transfusions Is this a current diagnosis for this admission?: Yes Plan: Continue Jadenu. Although I do not see this listed on her AUG. I will check with nursing staff. (4) E. coli UTI Is this a current diagnosis for this admission?: Yes Plan: I will start Bactrim DS BID. - Time Time Spent with patient: 15-24 minutes - Plan Summary Plan Summary: Hope to have her discharged on Tuesday, as soon as IV pain meds can be weaned.
[2019-08-16] MEDS: CHOLECALCIFEROL (D3) 1,000 UNIT (25 MCG) TABLET PO SCH (09:18)
[2019-08-16] MEDS: DOCUSATE SODIUM 100 MG CAPSULE PO SCH ×2 (09:19→17:35)
[2019-08-16] MEDS: SULFAMETHOXAZOLE/TRIMETHOPRIM 800-160 MG TABLET PO SCH ×2 (09:20→22:04)
[2019-08-16] MEDS: FOLIC ACID 1 MG TABLET PO SCH (09:20)
[2019-08-16] MEDS: GABAPENTIN 300 MG CAPSULE PO SCH ×2 (09:21→22:04)
[2019-08-16] MEDS: OXYCODONE HCL SR 10 MG TABLET PO SCH ×2 (09:21→22:05)
[2019-08-16] MEDS: HYDROXYUREA 500 MG CAPSULE PO SCH ×3 (09:23→17:35)
[2019-08-16] MEDS: NEOMY/BACITRAC ZN/POLY OINT 15 GM TP SCH ×2 (09:23→17:35)
[2019-08-16] MEDS: FAMOTIDINE 20 MG TABLET PO SCH ×2 (09:24→22:04)
--- NOTE | 2019-08-16 20:37 | PDOC PROGRESS REPORT ---
Subjective Progress Note for:: 08/16/19 Subjective:: Patient was seen by the bedside, she has E. coli UTI already on Bactrim no new issues to address Reason For Visit: SICKLE CELL CRISIS Physical Exam Vital Signs: Temp Pulse Resp BP Pulse Ox 99.4 F 88 16 112/55 L 95 08/16/19 17:26 08/16/19 17:26 08/16/19 17:26 08/16/19 17:26 08/16/19 17:26 Intake & Output 08/15/19 08/16/19 08/17/19 06:59 06:59 06:59 Intake Total 2480 2297 120 Output Total 4650 3700 1600 Balance -6580 -6393 -1480 Weight 66.4 kg 62.9 kg General appearance: PRESENT: no acute distress Eye exam: PRESENT: PERRLA Respiratory exam: PRESENT: clear to auscultation carolyn Cardiovascular exam: PRESENT: +S1, +S2 GI/Abdominal exam: PRESENT: soft Neurological exam: PRESENT: alert Results Laboratory Results: 08/15/19 06:06 08/15/19 06:06 08/12/19 22:43 Troponin I < 0.012 NT-Pro-B Natriuret Pep 54 Impressions: Chest X-Ray 08/12/19 19:10 IMPRESSION: Diminished pulmonary vascular congestion. No acute pulmonary findings otherwise. Assessment & Plan - Diagnosis (1) Sickle cell anemia with pain Is this a current diagnosis for this admission?: Yes (2) Opioid dependence Qualifiers: Substance use status: with unspecified opioid-induced disorder Qualified Code(s): F11.29 - Opioid dependence with unspecified opioid-induced disorder Is this a current diagnosis for this admission?: Yes Plan: Patient is completely opioid dependent, unable to function independently without opioid (3) E. coli UTI (urinary tract infection) Is this a current diagnosis for this admission?: Yes Plan: Continue antibiotic - Time Time Spent with patient: 15-24 minutes Level of Care: IMCU
[2019-08-17] MEDS: HYDROMORPHONE HCL INJ/PF 2 MG/ML AMPULE IV PRN ×8 (01:25→22:57)
[2019-08-17] MEDS: DIPHENHYDRAMINE HCL 50 MG/ML VIAL IV PRN ×4 (01:25→22:57)
[2019-08-17] MEDS: HEPARIN SOD (PORCINE) 5,000 UNIT/ML 1 ML VIAL SUBCUT SCH ×3 (05:52→22:52)
[2019-08-17] MEDS: PROMETHAZINE HCL INJ 25 MG/1 ML VIAL IV PRN ×2 (08:00→20:23)
--- NOTE | 2019-08-17 08:01 | PDOC PROGRESS REPORT ---
Subjective Progress Note for:: 08/17/19 Subjective:: Patient states that she had a terrible day yesterday because Dr. Mccabe changed her pain meds to q 4 hours. She is complaining of increased pain and decreased ROM in her right shoulder. Reason For Visit: SICKLE CELL CRISIS Physical Exam Vital Signs: Temp Pulse Resp BP Pulse Ox 98.1 F 85 16 104/62 96 08/17/19 03:04 08/17/19 03:04 08/17/19 03:04 08/17/19 03:04 08/17/19 03:04 Intake & Output 08/16/19 08/17/19 08/18/19 06:59 06:59 06:59 Intake Total 2297 1560 Output Total 3700 2500 Balance -1403 -940 Weight 62.9 kg 64.2 kg General appearance: PRESENT: no acute distress, well-developed, well-nourished Head exam: PRESENT: normocephalic Respiratory exam: PRESENT: unlabored Extremities exam: PRESENT: other - Decreased ROM right shoulder Neurological exam: PRESENT: awake Psychiatric exam: PRESENT: appropriate affect Skin exam: PRESENT: other - Unchanged from previously Results Laboratory Results: 08/15/19 06:06 08/15/19 06:06 08/12/19 22:43 Troponin I < 0.012 NT-Pro-B Natriuret Pep 54 Impressions: Chest X-Ray 08/12/19 19:10 IMPRESSION: Diminished pulmonary vascular congestion. No acute pulmonary findings otherwise. Assessment & Plan - Diagnosis (1) Sickle cell pain crisis Is this a current diagnosis for this admission?: Yes Plan: I have discussed with nursing staff. I am not sure who told patient her pain meds have been decreased, but order still stands at q 2 hours PRN. Nurses will encourage her to take meds if needed. No changes today (2) Hb-SS disease with vaso-occlusive crisis Is this a current diagnosis for this admission?: Yes Plan: I will order PT to help with ROM and walking in singh. (3) Iron overload due to repeated red blood cell transfusions Is this a current diagnosis for this admission?: Yes (4) E. coli UTI Is this a current diagnosis for this admission?: Yes Plan: Continue antibiotics. - Time Time Spent with patient: 15-24 minutes
[2019-08-17] MEDS: SULFAMETHOXAZOLE/TRIMETHOPRIM 800-160 MG TABLET PO SCH ×2 (09:46→22:51)
[2019-08-17] MEDS: GABAPENTIN 300 MG CAPSULE PO SCH ×2 (09:46→22:52)
[2019-08-17] MEDS: FAMOTIDINE 20 MG TABLET PO SCH ×2 (09:47→22:52)
[2019-08-17] MEDS: DOCUSATE SODIUM 100 MG CAPSULE PO SCH ×2 (09:47→17:26)
[2019-08-17] MEDS: FOLIC ACID 1 MG TABLET PO SCH (09:47)
[2019-08-17] MEDS: CHOLECALCIFEROL (D3) 1,000 UNIT (25 MCG) TABLET PO SCH (09:47)
[2019-08-17] MEDS: OXYCODONE HCL SR 10 MG TABLET PO SCH ×2 (09:47→22:50)
[2019-08-17] MEDS: HYDROXYUREA 500 MG CAPSULE PO SCH ×3 (09:48→17:26)
[2019-08-17] MEDS: NEOMY/BACITRAC ZN/POLY OINT 15 GM TP SCH ×2 (09:48→17:26)
--- NOTE | 2019-08-17 22:03 | PDOC PROGRESS REPORT ---
Subjective Progress Note for:: 08/17/19 Subjective:: Patient seen by the bedside no new complaints Reason For Visit: SICKLE CELL CRISIS Physical Exam Vital Signs: Temp Pulse Resp BP Pulse Ox 99.2 F 93 18 100/62 94 08/17/19 11:24 08/17/19 14:00 08/17/19 11:24 08/17/19 11:24 08/17/19 11:24 Intake & Output 08/16/19 08/17/19 08/18/19 06:59 06:59 06:59 Intake Total 2297 1560 480 Output Total 3700 2500 900 Balance -1403 -940 -420 Weight 62.9 kg 64.2 kg General appearance: PRESENT: no acute distress Eye exam: PRESENT: PERRLA Respiratory exam: PRESENT: clear to auscultation carolyn Cardiovascular exam: PRESENT: +S1, +S2 GI/Abdominal exam: PRESENT: soft Neurological exam: PRESENT: alert Results Laboratory Results: 08/15/19 06:06 08/15/19 06:06 08/12/19 22:43 Troponin I < 0.012 NT-Pro-B Natriuret Pep 54 Impressions: Chest X-Ray 08/12/19 19:10 IMPRESSION: Diminished pulmonary vascular congestion. No acute pulmonary findings otherwise. Assessment & Plan - Diagnosis (1) Sickle cell anemia with pain Is this a current diagnosis for this admission?: Yes (2) Opioid dependence Qualifiers: Substance use status: with unspecified opioid-induced disorder Qualified Code(s): F11.29 - Opioid dependence with unspecified opioid-induced disorder Is this a current diagnosis for this admission?: Yes (3) E. coli UTI (urinary tract infection) Is this a current diagnosis for this admission?: Yes - Time Time Spent with patient: Less than 15 minutes
[2019-08-17] MEDS: 1/2 NORMAL SALINE 1,000 ML IV PRN (23:08)
[2019-08-18] MEDS: HYDROMORPHONE HCL INJ/PF 2 MG/ML AMPULE IV PRN ×8 (02:13→22:46)
[2019-08-18] MEDS: PROMETHAZINE HCL INJ 25 MG/1 ML VIAL IV PRN ×4 (02:15→22:47)
[2019-08-18] MEDS: HEPARIN SOD (PORCINE) 5,000 UNIT/ML 1 ML VIAL SUBCUT SCH ×3 (06:34→21:34)
[2019-08-18] MEDS: DIPHENHYDRAMINE HCL 50 MG/ML VIAL IV PRN ×3 (06:35→20:45)
[2019-08-18 08:28] LABS: ALBUMIN 4.1 g/dL (3.5-5.0); ALKALINE PHOSPHATASE 124 U/L (38-126); ANION GAP 10 (5-19); ASPARTATE AMINO TRANSFERASE 82 U/L (14-36); BILIRUBIN,TOTAL 4.8 mg/dL (0.2-1.3); BLOOD UREA NITROGEN 12 mg/dL (7-20); CALCIUM 8.8 mg/dL (8.4-10.2); CARBON DIOXIDE 25 mmol/L (22-30); CHLORIDE 101 mmol/L (98-107); GLUCOSE 106 mg/dL (75-110); POTASSIUM 4.3 mmol/L (3.6-5.0); TOTAL PROTEIN 7.3 g/dL (6.3-8.2)
[2019-08-18 08:36] LABS: ABSOLUTE BASOPHILS # (AUTO) 0.1 10^3/uL (0.0-0.2); ABSOLUTE EOSINOPHILS # (AUTO) 0.3 10^3/uL (0.0-0.6); ABSOLUTE LYMPHOCYTES (AUTO) 1.3 10^3/uL (0.5-4.7); ABSOLUTE MONOCYTES (AUTO) 0.6 10^3/uL (0.1-1.4); BASOPHILS % (AUTO) 2.1 % (0-2); EOSINOPHILS % (AUTO) 4.9 % (0-6); HEMATOCRIT 17.7 % (36.0-47.0); LYMPHOCYTES % (AUTO) 20.9 % (13-45); MEAN CORPUSCULAR HEMOGLOBIN 43.9 pg (27.0-33.4); MEAN CORPUSCULAR HGB CONC 36.1 g/dL (32.0-36.0); MEAN CORPUSCULAR VOLUME 122 fl (80-97); MONOCYTES % (AUTO) 9.9 % (3-13); PLATELET COUNT 211 10^3/uL (150-450); RED BLOOD COUNT 1.45 10^6/uL (3.72-5.28); RED CELL DISTRIBUTION WIDTH 16.7 % (11.5-14.0); SEGMENTED NEUTROPHILS % (AUTO) 62.2 % (42-78); TOTAL CELLS COUNTED % (AUTO) 100 %; WHITE BLOOD COUNT 6.4 10^3/uL (4.0-10.5)
[2019-08-18 09:23] LABS: HEMOGLOBIN 6.4 g/dL (12.0-15.5)
[2019-08-18 09:24] LABS: ANISOCYTOSIS 1+; OVALOCYTES SLIGHT; PLATELET COMMENT ADEQUATE; POIKILOCYTOSIS 1+; TARGET CELLS SLIGHT
[2019-08-18] MEDS: DOCUSATE SODIUM 100 MG CAPSULE PO SCH ×2 (09:59→17:19)
[2019-08-18] MEDS: SULFAMETHOXAZOLE/TRIMETHOPRIM 800-160 MG TABLET PO SCH ×2 (09:59→21:33)
[2019-08-18] MEDS: FAMOTIDINE 20 MG TABLET PO SCH ×2 (09:59→21:33)
[2019-08-18] MEDS: CHOLECALCIFEROL (D3) 1,000 UNIT (25 MCG) TABLET PO SCH (09:59)
[2019-08-18] MEDS: GABAPENTIN 300 MG CAPSULE PO SCH ×2 (09:59→21:33)
[2019-08-18] MEDS: 1/2 NORMAL SALINE 1,000 ML IV PRN (09:59)
[2019-08-18] MEDS: FOLIC ACID 1 MG TABLET PO SCH (09:59)
[2019-08-18] MEDS: OXYCODONE HCL SR 10 MG TABLET PO SCH ×2 (09:59→21:33)
[2019-08-18] MEDS: NEOMY/BACITRAC ZN/POLY OINT 15 GM TP SCH ×2 (10:01→17:19)
[2019-08-18] MEDS: HYDROXYUREA 500 MG CAPSULE PO SCH ×3 (10:01→17:19)
--- NOTE | 2019-08-18 14:15 | PDOC PROGRESS REPORT ---
Subjective Progress Note for:: 08/18/19 Subjective:: Patient states that hte pain is better. She was able to get up and walk today. She is still not able to raise her right shoulder without severe pain. ROS: No dyspnea. No constipation Reason For Visit: SICKLE CELL CRISIS Physical Exam Vital Signs: Temp Pulse Resp BP Pulse Ox 98.8 F 88 16 91/56 L 92 08/18/19 11:42 08/18/19 11:42 08/18/19 11:42 08/18/19 11:42 08/18/19 11:42 Intake & Output 08/17/19 08/18/19 08/19/19 06:59 06:59 06:59 Intake Total 1560 1702 1120 Output Total 2500 1900 Balance -940 -198 1120 Weight 64.2 kg 62.8 kg General appearance: PRESENT: no acute distress, well-developed, well-nourished Head exam: PRESENT: normocephalic Respiratory exam: PRESENT: unlabored Extremities exam: ABSENT: pedal edema Neurological exam: PRESENT: alert, awake Psychiatric exam: PRESENT: appropriate affect Skin exam: PRESENT: normal color Results Laboratory Results: 08/18/19 07:55 08/18/19 07:55 08/18/19 08/18/19 07:55 07:55 WBC 6.4 RBC 1.45 L Hgb 6.4 L Hct 17.7 L MCV 122 H MCH 43.9 H MCHC 36.1 H RDW 16.7 H Plt Count 211 Seg Neutrophils % 62.2 Sodium 136.2 L Potassium 4.3 Chloride 101 Carbon Dioxide 25 Anion Gap 10 BUN 12 Creatinine 0.76 Est GFR ( Amer) > 60 Glucose 106 Calcium 8.8 Total Bilirubin 4.8 H AST 82 H Alkaline Phosphatase 124 Total Protein 7.3 Albumin 4.1 08/13/19 03:39 Blood Blood Culture - Final NO GROWTH IN 5 DAYS 08/13/19 00:46 Blood Blood Culture - Final NO GROWTH IN 5 DAYS 08/12/19 22:43 Troponin I < 0.012 NT-Pro-B Natriuret Pep 54 Impressions: Chest X-Ray 08/12/19 19:10 IMPRESSION: Diminished pulmonary vascular congestion. No acute pulmonary findings otherwise. Assessment & Plan - Diagnosis (1) Sickle cell pain crisis Is this a current diagnosis for this admission?: Yes (2) Hb-SS disease with vaso-occlusive crisis Is this a current diagnosis for this admission?: Yes (3) Iron overload due to repeated red blood cell transfusions Is this a current diagnosis for this admission?: Yes (4) E. coli UTI Is this a current diagnosis for this admission?: Yes - Time Time Spent with patient: 15-24 minutes - Plan Summary Plan Summary: I will check X-ray of her right shoulder. She should continue to work with physical therapy. She needs to be out of bed BID and walking as much as possible. Continue ABX for UTI. I will decrease her dilaudid to 3 mg IV q 2 hours PRN. Keep all else the same.
--- NOTE | 2019-08-18 14:56 | RADIOLOGY REPORT (SQ) ---
EXAM DESCRIPTION: SHOULDER RIGHT 2 OR MORE VIEWS COMPLETED DATE/TIME: 08/18/2019 2:46 pm REASON FOR STUDY: acute pain without injury in sickle cell patient COMPARISON: None. NUMBER OF VIEWS: Three views. TECHNIQUE: Internal rotation, external rotation, and Y view images acquired of the right shoulder. LIMITATIONS: None. FINDINGS: MINERALIZATION: Normal. BONES: No acute fracture. No worrisome bone lesions. No significant osteophytes. GLENOHUMERAL JOINT: No significant findings. ACROMIOCLAVICULAR JOINT: No large osteophytes. SOFT TISSUES: No calcifications. VISUALIZED RIBS, SPINE, AND LUNG: No other significant finding. OTHER: No other significant finding. IMPRESSION: NEGATIVE STUDY OF THE RIGHT SHOULDER. NO EXPLANATION FOR PAIN. TECHNICAL DOCUMENTATION: JOB ID: [id number] 2010 [employer]- All Rights Reserved Reading location - IP/workstation name: [email or web address]
--- NOTE | 2019-08-18 17:15 | PDOC PROGRESS REPORT ---
Subjective Progress Note for:: 08/18/19 Subjective:: Patient seen by the bedside, she is in encouraged to get out of bed Reason For Visit: SICKLE CELL CRISIS Physical Exam Vital Signs: Temp Pulse Resp BP Pulse Ox 98.7 F 85 16 104/70 93 08/18/19 15:21 08/18/19 15:21 08/18/19 15:21 08/18/19 15:21 08/18/19 15:21 Intake & Output 08/17/19 08/18/19 08/19/19 06:59 06:59 06:59 Intake Total 1560 1702 1120 Output Total 2500 1900 Balance -940 -198 1120 Weight 64.2 kg 62.8 kg General appearance: PRESENT: no acute distress Eye exam: PRESENT: PERRLA Respiratory exam: PRESENT: clear to auscultation carolyn Cardiovascular exam: PRESENT: +S1, +S2 GI/Abdominal exam: PRESENT: soft Neurological exam: PRESENT: alert Results Laboratory Results: 08/18/19 07:55 08/18/19 07:55 08/18/19 08/18/19 07:55 07:55 WBC 6.4 RBC 1.45 L Hgb 6.4 L Hct 17.7 L MCV 122 H MCH 43.9 H MCHC 36.1 H RDW 16.7 H Plt Count 211 Seg Neutrophils % 62.2 Sodium 136.2 L Potassium 4.3 Chloride 101 Carbon Dioxide 25 Anion Gap 10 BUN 12 Creatinine 0.76 Est GFR ( Amer) > 60 Glucose 106 Calcium 8.8 Total Bilirubin 4.8 H AST 82 H Alkaline Phosphatase 124 Total Protein 7.3 Albumin 4.1 08/13/19 03:39 Blood Blood Culture - Final NO GROWTH IN 5 DAYS 08/13/19 00:46 Blood Blood Culture - Final NO GROWTH IN 5 DAYS 08/12/19 22:43 Troponin I < 0.012 NT-Pro-B Natriuret Pep 54 Impressions: Chest X-Ray 08/12/19 19:10 IMPRESSION: Diminished pulmonary vascular congestion. No acute pulmonary f indings otherwise. Shoulder X-Ray 08/18/19 00:00 IMPRESSION: NEGATIVE STUDY OF THE RIGHT SHOULDER. NO EXPLANATION FOR PAIN. Assessment & Plan - Diagnosis (1) Sickle cell anemia with pain Is this a current diagnosis for this admission?: Yes (2) Opioid dependence Qualifiers: Substance use status: with unspecified opioid-induced disorder Qualified Code(s): F11.29 - Opioid dependence with unspecified opioid-induced disorder Is this a current diagnosis for this admission?: Yes (3) E. coli UTI (urinary tract infection) Is this a current diagnosis for this admission?: Yes - Time Time Spent with patient: 25-34 minutes Level of Care: IMCU
[2019-08-19] MEDS: HYDROMORPHONE HCL INJ/PF 2 MG/ML AMPULE IV PRN ×10 (01:39→23:38)
[2019-08-19] MEDS: DIPHENHYDRAMINE HCL 50 MG/ML VIAL IV PRN ×5 (01:40→21:39)
[2019-08-19] MEDS: PROMETHAZINE HCL INJ 25 MG/1 ML VIAL IV PRN ×5 (04:07→23:38)
[2019-08-19] MEDS: HEPARIN SOD (PORCINE) 5,000 UNIT/ML 1 ML VIAL SUBCUT SCH ×3 (06:23→21:40)
[2019-08-19] MEDS: 1/2 NORMAL SALINE 1,000 ML IV PRN (06:29)
[2019-08-19] MEDS: DOCUSATE SODIUM 100 MG CAPSULE PO SCH ×2 (10:37→17:46)
[2019-08-19] MEDS: OXYCODONE HCL SR 10 MG TABLET PO SCH ×2 (10:37→21:37)
[2019-08-19] MEDS: CHOLECALCIFEROL (D3) 1,000 UNIT (25 MCG) TABLET PO SCH (10:37)
[2019-08-19] MEDS: SULFAMETHOXAZOLE/TRIMETHOPRIM 800-160 MG TABLET PO SCH ×2 (10:37→21:37)
[2019-08-19] MEDS: NEOMY/BACITRAC ZN/POLY OINT 15 GM TP SCH ×2 (10:37→17:46)
[2019-08-19] MEDS: FAMOTIDINE 20 MG TABLET PO SCH ×2 (10:37→21:37)
[2019-08-19] MEDS: HYDROXYUREA 500 MG CAPSULE PO SCH ×3 (10:37→17:46)
[2019-08-19] MEDS: GABAPENTIN 300 MG CAPSULE PO SCH ×2 (10:37→21:37)
[2019-08-19] MEDS: FOLIC ACID 1 MG TABLET PO SCH (10:37)
--- NOTE | 2019-08-19 15:02 | PDOC PROGRESS REPORT ---
Subjective Progress Note for:: 08/19/19 Subjective:: Patient seen by the bedside no new issues Reason For Visit: SICKLE CELL CRISIS Physical Exam Vital Signs: Temp Pulse Resp BP Pulse Ox 98.8 F 84 16 94/47 L 93 08/19/19 07:16 08/19/19 07:16 08/19/19 07:16 08/19/19 07:16 08/19/19 07:16 Intake & Output 08/18/19 08/19/19 08/20/19 06:59 06:59 06:59 Intake Total 1702 2590 Output Total 1900 2800 Balance -198 -210 Weight 62.8 kg 62 kg General appearance: PRESENT: no acute distress Eye exam: PRESENT: PERRLA Respiratory exam: PRESENT: clear to auscultation carolyn Cardiovascular exam: PRESENT: +S1, +S2 GI/Abdominal exam: PRESENT: soft Neurological exam: PRESENT: alert Results Laboratory Results: 08/18/19 07:55 08/18/19 07:55 08/12/19 22:43 Troponin I < 0.012 NT-Pro-B Natriuret Pep 54 Impressions: Chest X-Ray 08/12/19 19:10 IMPRESSION: Diminished pulmonary vascular congestion. No acute pulmonary findings otherwise. Shoulder X-Ray 08/18/19 00:00 IMPRESSION: NEGATIVE STUDY OF THE RIGHT SHOULDER. NO EXPLANATION FOR PAIN. Assessment & Plan - Diagnosis (1) Sickle cell anemia with pain Is this a current diagnosis for this admission?: Yes (2) Opioid dependence Qualifiers: Substance use status: with unspecified opioid-induced disorder Qualified Code(s): F11.29 - Opioid dependence with unspecified opioid-induced disorder Is this a current diagnosis for this admission?: Yes (3) E. coli UTI (urinary tract infection) Is this a current diagnosis for this admission?: Yes - Time Time Spent with patient: 15-24 minutes
[2019-08-20] MEDS: HYDROMORPHONE HCL INJ/PF 2 MG/ML AMPULE IV PRN ×9 (03:15→22:58)
[2019-08-20] MEDS: DIPHENHYDRAMINE HCL 50 MG/ML VIAL IV PRN ×5 (03:16→22:56)
[2019-08-20] MEDS: HEPARIN SOD (PORCINE) 5,000 UNIT/ML 1 ML VIAL SUBCUT SCH ×3 (06:36→21:03)
--- NOTE | 2019-08-20 08:36 | PDOC PROGRESS REPORT ---
Subjective Progress Note for:: 08/20/19 Subjective:: Patient states that she is just weak. She was able to walk with PT. She was up in chair yesterday. No new problems voiced. Pain is well controlled. Reason For Visit: SICKLE CELL CRISIS Physical Exam Vital Signs: Temp Pulse Resp BP Pulse Ox 98.6 F 77 18 92/53 L 98 08/20/19 04:00 08/20/19 06:59 08/20/19 04:00 08/20/19 00:00 08/20/19 04:00 Intake & Output 08/19/19 08/20/19 08/21/19 06:59 06:59 06:59 Intake Total 2590 800 Output Total 2800 1600 Balance -210 -800 Weight 62 kg 63.1 kg General appearance: PRESENT: no acute distress, well-developed, well-nourished Head exam: PRESENT: normocephalic Respiratory exam: PRESENT: clear to auscultation carolyn, unlabored Cardiovascular exam: PRESENT: RRR Extremities exam: ABSENT: pedal edema Neurological exam: PRESENT: alert, awake Psychiatric exam: PRESENT: appropriate affect Skin exam: PRESENT: normal color Results Laboratory Results: 08/18/19 07:55 08/18/19 07:55 08/12/19 22:43 Troponin I < 0.012 NT-Pro-B Natriuret Pep 54 Impressions: Chest X-Ray 08/12/19 19:10 IMPRESSION: Diminished pulmonary vascular congestion. No acute pulmonary findings otherwise. Shoulder X-Ray 08/18/19 00:00 IMPRESSION: NEGATIVE STUDY OF THE RIGHT SHOULDER. NO EXPLANATION FOR PAIN. Assessment & Plan - Diagnosis (1) Sickle cell pain crisis Is this a current diagnosis for this admission?: Yes Plan: I will continue to slowly wean IV dilaudid and encourage ambulation as much as possible. Continue long-acting pain medications without changes today. (2) Hb-SS disease with vaso-occlusive crisis Is this a current diagnosis for this admission?: Yes (3) Iron overload due to repeated red blood cell transfusions Is this a current diagnosis for this admission?: Yes Plan: She should continue Jadenu. (4) E. coli UTI Is this a current diagnosis for this admission?: Yes Plan: On appropriate antibiotics. - Time Time Spent with patient: 15-24 minutes
[2019-08-20] MEDS: DOCUSATE SODIUM 100 MG CAPSULE PO SCH ×2 (09:26→17:00)
[2019-08-20] MEDS: HYDROXYUREA 500 MG CAPSULE PO SCH ×3 (09:26→17:00)
[2019-08-20] MEDS: NEOMY/BACITRAC ZN/POLY OINT 15 GM TP SCH ×2 (09:27→17:00)
[2019-08-20] MEDS: OXYCODONE HCL SR 10 MG TABLET PO SCH ×2 (09:29→21:03)
[2019-08-20] MEDS: FAMOTIDINE 20 MG TABLET PO SCH ×2 (09:29→21:03)
[2019-08-20] MEDS: FOLIC ACID 1 MG TABLET PO SCH (09:29)
[2019-08-20] MEDS: CHOLECALCIFEROL (D3) 1,000 UNIT (25 MCG) TABLET PO SCH (09:29)
[2019-08-20] MEDS: GABAPENTIN 300 MG CAPSULE PO SCH ×2 (09:29→21:03)
[2019-08-20] MEDS: SULFAMETHOXAZOLE/TRIMETHOPRIM 800-160 MG TABLET PO SCH ×2 (09:29→21:03)
[2019-08-20] MEDS: 1/2 NORMAL SALINE 1,000 ML IV PRN ×2 (09:30→19:23)
[2019-08-20] MEDS: PROMETHAZINE HCL INJ 25 MG/1 ML VIAL IV PRN ×3 (10:40→19:20)
--- NOTE | 2019-08-20 17:17 | PDOC PROGRESS REPORT ---
Subjective Progress Note for:: 08/20/19 Subjective:: Patient seen by the bedside pain is improved on present regimen Reason For Visit: SICKLE CELL CRISIS Physical Exam Vital Signs: Temp Pulse Resp BP Pulse Ox 98.7 F 82 16 90/52 L 97 08/20/19 11:57 08/20/19 14:00 08/20/19 11:57 08/20/19 11:57 08/20/19 11:57 Intake & Output 08/19/19 08/20/19 08/21/19 06:59 06:59 06:59 Intake Total 2590 1800 Output Total 2800 1600 Balance -210 200 Weight 62 kg 63.1 kg General appearance: PRESENT: no acute distress Eye exam: PRESENT: PERRLA Respiratory exam: PRESENT: clear to auscultation carolyn Cardiovascular exam: PRESENT: +S1, +S2 Neurological exam: PRESENT: alert Results Laboratory Results: 08/18/19 07:55 08/18/19 07:55 08/12/19 22:43 Troponin I < 0.012 NT-Pro-B Natriuret Pep 54 Impressions: Chest X-Ray 08/12/19 19:10 IMPRESSION: Diminished pulmonary vascular congestion. No acute pulmonary findings otherwise. Shoulder X-Ray 08/18/19 00:00 IMPRESSION: NEGATIVE STUDY OF THE RIGHT SHOULDER. NO EXPLANATION FOR PAIN. Assessment & Plan - Diagnosis (1) Sickle cell anemia with pain Is this a current diagnosis for this admission?: Yes (2) Opioid dependence Qualifiers: Substance use status: with unspecified opioid-induced disorder Qualified Code(s): F11.29 - Opioid dependence with unspecified opioid-induced disorder Is this a current diagnosis for this admission?: Yes (3) E. coli UTI (urinary tract infection) Is this a current diagnosis for this admission?: Yes - Time Time Spent with patient: 15-24 minutes Level of Care: MEDICAL
[2019-08-21] MEDS: HYDROMORPHONE HCL INJ/PF 2 MG/ML AMPULE IV PRN ×9 (00:49→21:39)
[2019-08-21] MEDS: PROMETHAZINE HCL INJ 25 MG/1 ML VIAL IV PRN ×4 (00:49→21:32)
[2019-08-21] MEDS: DIPHENHYDRAMINE HCL 50 MG/ML VIAL IV PRN ×4 (03:13→19:31)
[2019-08-21] MEDS: 1/2 NORMAL SALINE 1,000 ML IV PRN (05:50)
[2019-08-21] MEDS: HEPARIN SOD (PORCINE) 5,000 UNIT/ML 1 ML VIAL SUBCUT SCH ×3 (05:52→21:31)
--- NOTE | 2019-08-21 08:11 | PDOC PROGRESS REPORT ---
Subjective Progress Note for:: 08/21/19 Subjective:: Patient states that she sat in chair yesterday and was able to walk in [place] with PT yesterday. Still with considerable pain on ambulation, but overall, pain remains controlled. She states that she has not been getting the daily banana bags, as ordered. Reason For Visit: SICKLE CELL CRISIS Physical Exam Vital Signs: Temp Pulse Resp BP Pulse Ox 99.0 F 82 16 102/57 L 100 08/20/19 22:54 08/21/19 02:00 08/20/19 22:54 08/20/19 22:54 08/20/19 22:54 Intake & Output 08/20/19 08/21/19 08/22/19 06:59 06:59 06:59 Intake Total 1800 3600 Output Total 1600 3700 Balance 200 -100 Weight 63.1 kg 64.2 kg General appearance: PRESENT: no acute distress, well-developed, well-nourished Head exam: PRESENT: normocephalic Respiratory exam: PRESENT: unlabored Musculoskeletal exam: PRESENT: normal inspection Neurological exam: PRESENT: alert, awake Psychiatric exam: PRESENT: appropriate affect Skin exam: PRESENT: normal color Results Laboratory Results: 08/18/19 07:55 08/18/19 07:55 08/12/19 22:43 Troponin I < 0.012 NT-Pro-B Natriuret Pep 54 Impressions: Chest X-Ray 08/12/19 19:10 IMPRESSION: Diminished pulmonary vascular congestion. No acute pulmonary findings otherwise. Shoulder X-Ray 08/18/19 00:00 IMPRESSION: NEGATIVE STUDY OF THE RIGHT SHOULDER. NO EXPLANATION FOR PAIN. Assessment & Plan - Diagnosis (1) Sickle cell pain crisis Is this a current diagnosis for this admission?: Yes Plan: Slowly weaning IV narcotics. Will keep same doses today and decrease dose again tomorrow. (2) Hb-SS disease with vaso-occlusive crisis Is this a current diagnosis for this admission?: Yes Plan: I will try to arrange a daily banana bag without potassium. (3) Iron overload due to repeated red blood cell transfusions Is this a current diagnosis for this admission?: Yes (4) E. coli UTI Is this a current diagnosis for this admission?: Yes Plan: Continue antibiotics. - Time Time Spent with patient: Less than 15 minutes - Plan Summary Plan Summary: Continue to ambulate and strengthen. Passive ROM exercises to Right shoulder. X-ray was normal.
[2019-08-21] MEDS: HYDROXYUREA 500 MG CAPSULE PO SCH ×3 (09:19→18:34)
[2019-08-21] MEDS: FOLIC ACID 1 MG TABLET PO SCH (09:19)
[2019-08-21] MEDS: NEOMY/BACITRAC ZN/POLY OINT 15 GM TP SCH ×2 (09:19→17:22)
[2019-08-21] MEDS: DOCUSATE SODIUM 100 MG CAPSULE PO SCH ×2 (09:19→18:34)
[2019-08-21] MEDS: OXYCODONE HCL SR 10 MG TABLET PO SCH ×3 (09:24→21:36)
[2019-08-21] MEDS: GABAPENTIN 300 MG CAPSULE PO SCH ×2 (09:24→21:32)
[2019-08-21] MEDS: CHOLECALCIFEROL (D3) 1,000 UNIT (25 MCG) TABLET PO SCH (09:25)
[2019-08-21] MEDS: FAMOTIDINE 20 MG TABLET PO SCH ×2 (09:25→21:31)
[2019-08-21] MEDS: SULFAMETHOXAZOLE/TRIMETHOPRIM 800-160 MG TABLET PO SCH ×2 (09:25→21:33)
[2019-08-21] MEDS ORDERED: NORMAL SALINE 1000 ML 1,000 ML with MAGNESIUM SULFATE 8 MEQ, THIAMINE HCL 100 MG, MVI, ... IV ONE ×4 (18:00)
--- NOTE | 2019-08-21 20:55 | PDOC PROGRESS REPORT ---
Subjective Progress Note for:: 08/21/19 Subjective:: Patient seen by the bedside she told me that when she was ambulating today and her legs gave off and she felt, she is seriously deconditioned from laying in bed for so long she will need physical therapy, she will need front wheel walker to assist with ambulation Reason For Visit: SICKLE CELL CRISIS Physical Exam Vital Signs: Temp Pulse Resp BP Pulse Ox 98.6 F 86 17 98/59 L 96 08/21/19 20:17 08/21/19 20:17 08/21/19 20:17 08/21/19 20:17 08/21/19 20:17 Intake & Output 08/20/19 08/21/19 08/22/19 06:59 06:59 06:59 Intake Total 1800 3600 1610 Output Total 1600 3700 1900 Balance 200 -100 -290 Weight 63.1 kg 64.2 kg 64.2 kg General appearance: PRESENT: no acute distress Eye exam: PRESENT: PERRLA Respiratory exam: PRESENT: clear to auscultation carolyn Cardiovascular exam: PRESENT: +S1, +S2 GI/Abdominal exam: PRESENT: soft Neurological exam: PRESENT: alert Results Laboratory Results: 08/18/19 07:55 08/18/19 07:55 08/12/19 22:43 Troponin I < 0.012 NT-Pro-B Natriuret Pep 54 Impressions: Chest X-Ray 08/12/19 19:10 IMPRESSION: Diminished pulmonary vascular congestion. No acute pulmonary findings otherwise. Shoulder X-Ray 08/18/19 00:00 IMPRESSION: NEGATIVE STUDY OF THE RIGHT SHOULDER. NO EXPLANATION FOR PAIN. Assessment & Plan - Diagnosis (1) Sickle cell anemia with pain Is this a current diagnosis for this admission?: Yes (2) Opioid dependence Qualifiers: Substance use status: with unspecified opioid-induced disorder Qualified Code(s): F11.29 - Opioid dependence with unspecified opioid-induced disorder Is this a current diagnosis for this admission?: Yes (3) E. coli UTI (urinary tract infection) Is this a current diagnosis for this admission?: Yes Plan: Continue antibiotic - Time Time Spent with patient: 15-24 minutes Level of Care: MEDICAL
[2019-08-22] MEDS: DIPHENHYDRAMINE HCL 50 MG/ML VIAL IV PRN ×6 (00:04→23:46)
[2019-08-22] MEDS: HYDROMORPHONE HCL INJ/PF 2 MG/ML AMPULE IV PRN ×11 (00:05→23:47)
[2019-08-22] MEDS: PROMETHAZINE HCL INJ 25 MG/1 ML VIAL IV PRN ×4 (02:24→21:28)
[2019-08-22] MEDS: 1/2 NORMAL SALINE 1,000 ML IV PRN ×2 (04:11→21:29)
[2019-08-22] MEDS: HEPARIN SOD (PORCINE) 5,000 UNIT/ML 1 ML VIAL SUBCUT SCH ×3 (06:49→21:30)
[2019-08-22] MEDS: GABAPENTIN 300 MG CAPSULE PO SCH ×2 (09:03→21:28)
[2019-08-22] MEDS: SULFAMETHOXAZOLE/TRIMETHOPRIM 800-160 MG TABLET PO SCH ×2 (09:03→21:28)
[2019-08-22] MEDS: FOLIC ACID 1 MG TABLET PO SCH (09:03)
[2019-08-22] MEDS: FAMOTIDINE 20 MG TABLET PO SCH ×2 (09:03→21:28)
[2019-08-22] MEDS: CHOLECALCIFEROL (D3) 1,000 UNIT (25 MCG) TABLET PO SCH (09:03)
[2019-08-22] MEDS: DOCUSATE SODIUM 100 MG CAPSULE PO SCH ×2 (09:03→17:23)
[2019-08-22] MEDS: HYDROXYUREA 500 MG CAPSULE PO SCH ×3 (09:04→17:23)
--- NOTE | 2019-08-22 09:04 | PDOC PROGRESS REPORT ---
Subjective Progress Note for:: 08/22/19 Subjective:: Still with considerable pain Reason For Visit: SICKLE CELL CRISIS Physical Exam Vital Signs: Temp Pulse Resp BP Pulse Ox 98.9 F 87 18 110/63 97 08/22/19 07:08 08/22/19 07:08 08/22/19 07:08 08/22/19 07:08 08/22/19 07:08 Intake & Output 08/21/19 08/22/19 08/23/19 06:59 06:59 06:59 Intake Total 3600 3345 Output Total 3700 1900 Balance -100 1445 Weight 64.2 kg 64 kg General appearance: PRESENT: no acute distress, well-developed, well-nourished Head exam: PRESENT: atraumatic, normocephalic Eye exam: PRESENT: conjunctiva pink, EOMI, PERRLA. ABSENT: scleral icterus Ear exam: PRESENT: normal external ear exam Mouth exam: PRESENT: moist, tongue midline Neck exam: ABSENT: carotid bruit, JVD, lymphadenopathy, thyromegaly Respiratory exam: PRESENT: clear to auscultation carolyn. ABSENT: rales, rhonchi, wheezes Cardiovascular exam: PRESENT: RRR. ABSENT: diastolic murmur, rubs, systolic murmur Pulses: PRESENT: normal dorsalis pedis pul Vascular exam: PRESENT: normal capillary refill GI/Abdominal exam: PRESENT: normal bowel sounds, soft. ABSENT: distended, guarding, mass, organolmegaly, rebound, tenderness Rectal exam: PRESENT: deferred Extremities exam: PRESENT: full ROM. ABSENT: calf tenderness, clubbing, pedal edema Neurological exam: PRESENT: alert, awake, oriented to person, oriented to place, oriented to time, oriented to situation, CN II-XII grossly intact. ABSENT: motor sensory deficit Psychiatric exam: PRESENT: appropriate affect, normal mood. ABSENT: homicidal ideation, suicidal ideation Skin exam: PRESENT: dry, intact, warm. ABSENT: cyanosis, rash Results Laboratory Results: 08/18/19 07:55 08/18/19 07:55 08/12/19 22:43 Troponin I < 0.012 NT-Pro-B Natriuret Pep 54 Impressions: Chest X-Ray 08/12/19 19:10 IMPRESSION: Diminished pulmonary vascular congestion. No acute pulmonary findings otherwise. Shoulder X-Ray 08/18/19 00:00 IMPRESSION: NEGATIVE STUDY OF THE RIGHT SHOULDER. NO EXPLANATION FOR PAIN. Assessment & Plan - Diagnosis (1) Sickle cell anemia with pain Is this a current diagnosis for this admission?: Yes Plan: Continue with current pain control, Dilaudid was decreased. - Time Time Spent with patient: 15-24 minutes
[2019-08-22] MEDS: NEOMY/BACITRAC ZN/POLY OINT 15 GM TP SCH ×2 (09:05→17:21)
[2019-08-22] MEDS: OXYCODONE HCL SR 10 MG TABLET PO SCH (10:48)
[2019-08-22 17:23] LABS: HEMATOCRIT 17.5 % (36.0-47.0); MEAN CORPUSCULAR HGB CONC 35.9 g/dL (32.0-36.0); MEAN CORPUSCULAR VOLUME 123 fl (80-97); PLATELET COUNT 185 10^3/uL (150-450); RED BLOOD COUNT 1.43 10^6/uL (3.72-5.28); RED CELL DISTRIBUTION WIDTH 17.5 % (11.5-14.0); WHITE BLOOD COUNT 6.6 10^3/uL (4.0-10.5)
--- NOTE | 2019-08-22 17:30 | PDOC PROGRESS REPORT ---
Subjective Progress Note for:: 08/22/19 Subjective:: Patient complains of tiredness, she was seen today by physical therapy, she has some sessions today Reason For Visit: SICKLE CELL CRISIS Physical Exam Vital Signs: Temp Pulse Resp BP Pulse Ox 98.5 F 82 18 90/54 L 95 08/22/19 10:55 08/22/19 14:00 08/22/19 10:55 08/22/19 10:55 08/22/19 10:55 Intake & Output 08/21/19 08/22/19 08/23/19 06:59 06:59 06:59 Intake Total 3600 3345 350 Output Total 3700 1900 Balance -100 1445 350 Weight 64.2 kg 64 kg General appearance: PRESENT: no acute distress Eye exam: PRESENT: PERRLA Respiratory exam: PRESENT: clear to auscultation carolyn Cardiovascular exam: PRESENT: +S1, +S2 GI/Abdominal exam: PRESENT: soft Neurological exam: PRESENT: alert Results Laboratory Results: 08/12/19 22:43 Troponin I < 0.012 NT-Pro-B Natriuret Pep 54 Impressions: Chest X-Ray 08/12/19 19:10 IMPRESSION: Diminished pulmonary vascular congestion. No acute pulmonary findings otherwise. Shoulder X-Ray 08/18/19 00:00 IMPRESSION: NEGATIVE STUDY OF THE RIGHT SHOULDER. NO EXPLANATION FOR PAIN. Assessment & Plan - Diagnosis (1) Sickle cell anemia with pain Is this a current diagnosis for this admission?: Yes Plan: continue treatment (2) Opioid dependence Qualifiers: Substance use status: with unspecified opioid-induced disorder Qualified Code(s): F11.29 - Opioid dependence with unspecified opioid-induced disorder Is this a current diagnosis for this admission?: Yes (3) E. coli UTI (urinary tract infection) Is this a current diagnosis for this admission?: Yes - Time Time Spent with patient: 15-24 minutes
[2019-08-22 17:47] LABS: ALBUMIN 3.9 g/dL (3.5-5.0); ALKALINE PHOSPHATASE 143 U/L (38-126); ANION GAP 8 (5-19); ASPARTATE AMINO TRANSFERASE 84 U/L (14-36); BILIRUBIN,DIRECT 0.3 mg/dL (0.0-0.4); BILIRUBIN,TOTAL 2.7 mg/dL (0.2-1.3); BLOOD UREA NITROGEN 8 mg/dL (7-20); CALCIUM 8.8 mg/dL (8.4-10.2); CARBON DIOXIDE 22 mmol/L (22-30); CHLORIDE 106 mmol/L (98-107); GLUCOSE 135 mg/dL (75-110); POTASSIUM 4.3 mmol/L (3.6-5.0); TOTAL PROTEIN 6.8 g/dL (6.3-8.2)
[2019-08-22 18:01] LABS: ABSOLUTE LYMPHOCYTES# (MANUAL) 2.7 10^3/uL (0.5-4.7); ABSOLUTE MONOCYTES # (MANUAL) 0.3 10^3/uL (0.1-1.4); BASOPHILS % (MANUAL) 0 % (0-2); EOSINOPHILS % (MANUAL) 5 % (0-6); LYMPHOCYTES % (MANUAL) 40 % (13-45); MONOCYTES % (MANUAL) 4 % (3-13); NUCLEATED RED BLOOD CELLS 4 /100 WBC (0); SEGMENTED NEUTROPHILS % (MAN) 50 % (42-78); TOTAL CELLS COUNTED 100
[2019-08-22 18:07] LABS: POLYCHROMASIA 2+
[2019-08-22 18:08] LABS: ANISOCYTOSIS 1+; HOWELL-JOLLY BODIES PRESENT; OVALOCYTES SLIGHT; PLATELET COMMENT ADEQUATE
[2019-08-22 18:09] LABS: HEMOGLOBIN 6.3 g/dL (12.0-15.5)
[2019-08-23] MEDS: OXYCODONE HCL SR 10 MG TABLET PO SCH ×3 (01:05→21:54)
[2019-08-23] MEDS: HYDROMORPHONE HCL INJ/PF 2 MG/ML AMPULE IV PRN ×9 (02:44→21:56)
[2019-08-23] MEDS: PROMETHAZINE HCL INJ 25 MG/1 ML VIAL IV PRN ×5 (02:45→21:55)
[2019-08-23] MEDS: HEPARIN SOD (PORCINE) 5,000 UNIT/ML 1 ML VIAL SUBCUT SCH ×3 (05:08→21:55)
[2019-08-23] MEDS: DIPHENHYDRAMINE HCL 50 MG/ML VIAL IV PRN ×4 (05:46→19:47)
[2019-08-23] MEDS: 1/2 NORMAL SALINE 1,000 ML IV PRN ×3 (08:15→22:01)
[2019-08-23] MEDS: DOCUSATE SODIUM 100 MG CAPSULE PO SCH ×2 (10:02→17:19)
[2019-08-23] MEDS: CHOLECALCIFEROL (D3) 1,000 UNIT (25 MCG) TABLET PO SCH (10:02)
[2019-08-23] MEDS: FOLIC ACID 1 MG TABLET PO SCH (10:03)
[2019-08-23] MEDS: NEOMY/BACITRAC ZN/POLY OINT 15 GM TP SCH ×2 (10:03→17:19)
[2019-08-23] MEDS: GABAPENTIN 300 MG CAPSULE PO SCH ×2 (10:03→21:54)
[2019-08-23] MEDS: HYDROXYUREA 500 MG CAPSULE PO SCH ×3 (11:24→17:20)
[2019-08-23] MEDS: FAMOTIDINE 20 MG TABLET PO SCH ×2 (11:24→21:54)
--- NOTE | 2019-08-23 13:16 | PDOC PROGRESS REPORT ---
Subjective Progress Note for:: 08/23/19 Subjective:: Patient states that pain still remains about the same. No new complaints. Shoulder still difficulty with movement. She is walking in the singh. She has not had her OxyContin dose for the past 24 hours. Nurses have documented that she refuses it and patient states that nurses did not always want to give it with the dilaudid. I have educated the nursing staff that these may be given at the same time. It is up to the patient as to if she continues OxyContin in the future. Reason For Visit: SICKLE CELL CRISIS Physical Exam Vital Signs: Temp Pulse Resp BP Pulse Ox 98.4 F 81 18 99/57 L 100 08/23/19 07:56 08/23/19 07:56 08/23/19 07:56 08/23/19 07:56 08/23/19 07:56 Intake & Output 08/22/19 08/23/19 08/24/19 06:59 06:59 06:59 Intake Total 3345 2210 1000 Output Total 1900 Balance 1445 2210 1000 Weight 64 kg General appearance: PRESENT: no acute distress, well-developed, well-nourished Respiratory exam: PRESENT: unlabored Extremities exam: ABSENT: pedal edema Neurological exam: PRESENT: alert, awake Psychiatric exam: PRESENT: appropriate affect Skin exam: PRESENT: normal color Results Laboratory Results: 08/22/19 16:45 08/22/19 16:45 08/22/19 08/22/19 16:45 16:45 WBC 6.6 RBC 1.43 L Hgb 6.3 L Hct 17.5 L MCV 123 H MCH 44.0 H MCHC 35.9 RDW 17.5 H Plt Count 185 Seg Neutrophils % Not Reportable Sodium 136.2 L Potassium 4.3 Chloride 106 Carbon Dioxide 22 Anion Gap 8 BUN 8 Creatinine 0.73 Est GFR ( Amer) > 60 Glucose 135 H Calcium 8.8 Total Bilirubin 2.7 H AST 84 H Alkaline Phosphatase 143 H Total Protein 6.8 Albumin 3.9 08/12/19 22:43 Troponin I < 0.012 NT-Pro-B Natriuret Pep 54 Impressions: Chest X-Ray 08/12/19 19:10 IMPRESSION: Diminished pulmonary vascular congestion. No acute pulmonary findings otherwise. Shoulder X-Ray 08/18/19 00:00 IMPRESSION: NEGATIVE STUDY OF THE RIGHT SHOULDER. NO EXPLANATION FOR PAIN. Assessment & Plan - Diagnosis (1) Sickle cell pain crisis Is this a current diagnosis for this admission?: Yes Plan: Her dilaudid has been weaned. This will stop tomorrow. Her HGB is stable. No indication for blood transfusion. (2) Hb-SS disease with vaso-occlusive crisis Is this a current diagnosis for this admission?: Yes (3) Iron overload due to repeated red blood cell transfusions Is this a current diagnosis for this admission?: Yes (4) E. coli UTI Is this a current diagnosis for this admission?: Yes Plan: Antibiotics finished. - Time Time Spent with patient: 15-24 minutes - Plan Summary Plan Summary: Plan to discharge her tomorrow. She is in agreement with this plan. She may decide to stop or continue MS Contin. Oxycodone PO will continue as outpatient PRN.
--- NOTE | 2019-08-23 21:00 | PDOC PROGRESS REPORT ---
Subjective Progress Note for:: 08/23/19 Subjective:: Patient seen by the bedside, she is ambulating with physical therapy Reason For Visit: SICKLE CELL CRISIS Physical Exam Vital Signs: Temp Pulse Resp BP Pulse Ox 99.4 F 85 18 117/63 99 08/23/19 15:17 08/23/19 19:00 08/23/19 15:17 08/23/19 15:17 08/23/19 15:17 Intake & Output 08/22/19 08/23/19 08/24/19 06:59 06:59 06:59 Intake Total 3345 2210 2600 Output Total 1900 900 Balance 1445 2210 1700 Weight 64 kg General appearance: PRESENT: no acute distress Eye exam: PRESENT: PERRLA Respiratory exam: PRESENT: clear to auscultation carolyn Cardiovascular exam: PRESENT: +S1, +S2 GI/Abdominal exam: PRESENT: soft Neurological exam: PRESENT: alert Results Laboratory Results: 08/22/19 16:45 08/22/19 16:45 08/12/19 22:43 Troponin I < 0.012 NT-Pro-B Natriuret Pep 54 Impressions: Chest X-Ray 08/12/19 19:10 IMPRESSION: Diminished pulmonary vascular congestion. No acute pulmonary findings otherwise. Shoulder X-Ray 08/18/19 00:00 IMPRESSION: NEGATIVE STUDY OF THE RIGHT SHOULDER. NO EXPLANATION FOR PAIN. Assessment & Plan - Diagnosis (1) Sickle cell anemia with pain Is this a current diagnosis for this admission?: Yes (2) Opioid dependence Qualifiers: Substance use status: with unspecified opioid-induced disorder Qualified Co de(s): F11.29 - Opioid dependence with unspecified opioid-induced disorder Is this a current diagnosis for this admission?: Yes (3) E. coli UTI (urinary tract infection) Is this a current diagnosis for this admission?: Yes - Time Time Spent with patient: 15-24 minutes
[2019-08-24] MEDS: HYDROMORPHONE HCL INJ/PF 2 MG/ML AMPULE IV PRN ×10 (00:08→23:34)
[2019-08-24] MEDS: DIPHENHYDRAMINE HCL 50 MG/ML VIAL IV PRN ×5 (00:08→23:33)
[2019-08-24] MEDS: PROMETHAZINE HCL INJ 25 MG/1 ML VIAL IV PRN ×3 (02:27→21:28)
[2019-08-24] MEDS: HEPARIN SOD (PORCINE) 5,000 UNIT/ML 1 ML VIAL SUBCUT SCH ×3 (05:03→21:27)
--- NOTE | 2019-08-24 08:18 | PDOC PROGRESS REPORT ---
Subjective Progress Note for:: 08/24/19 Subjective:: Patient remains weak but states that her pain remains controlled. She was able to walk in [place]h yesterday and sit up in chair for a while. She does not feel strong enough to go home, but states that she will follow our recommendations. Reason For Visit: SICKLE CELL CRISIS Physical Exam Vital Signs: Temp Pulse Resp BP Pulse Ox 99.2 F 78 18 102/57 L 99 08/23/19 23:58 08/24/19 07:00 08/23/19 23:58 08/23/19 23:58 08/23/19 23:58 Intake & Output 08/23/19 08/24/19 08/25/19 06:59 06:59 06:59 Intake Total 2210 3057 Output Total 3000 Balance 2210 57 Weight 62.9 kg General appearance: PRESENT: no acute distress Head exam: PRESENT: normocephalic Eye exam: PRESENT: EOMI Respiratory exam: PRESENT: unlabored Neurological exam: PRESENT: alert, awake, oriented to person, oriented to place, oriented to time, oriented to situation Psychiatric exam: PRESENT: appropriate affect Skin exam: PRESENT: normal color Results Laboratory Results: 08/22/19 16:45 08/22/19 16:45 08/12/19 22:43 Troponin I < 0.012 NT-Pro-B Natriuret Pep 54 Impressions: Chest X-Ray 08/12/19 19:10 IMPRESSION: Diminished pulmonary vascular congestion. No acute pulmonary findings otherwise. Shoulder X-Ray 08/18/19 00:00 IMPRESSION: NEGATIVE STUDY OF THE RIGHT SHOULDER. NO EXPLANATION FOR PAIN. Assessment & Plan - Diagnosis (1) Sickle cell pain crisis Is this a current diagnosis for this admission?: Yes Plan: Improved. (2) Hb-SS disease with vaso-occlusive crisis Is this a current diagnosis for this admission?: Yes (3) Iron overload due to repeated red blood cell transfusions Is this a current diagnosis for this admission?: Yes (4) E. coli UTI Is this a current diagnosis for this admission?: Yes Plan: Completed antibiotics. - Time Time Spent with patient: Less than 15 minutes - Plan Summary Plan Summary: OK for discharge today from my standpoint. I was not able to reach Dr. Mccabe this morning to discuss. I will continue to provide all her pain medications as outpatient.
[2019-08-24] MEDS: 1/2 NORMAL SALINE 1,000 ML IV PRN ×2 (08:58→19:17)
[2019-08-24] MEDS: OXYCODONE HCL SR 10 MG TABLET PO SCH ×2 (10:41→21:27)
[2019-08-24] MEDS: FOLIC ACID 1 MG TABLET PO SCH (10:42)
[2019-08-24] MEDS: FAMOTIDINE 20 MG TABLET PO SCH ×2 (10:42→21:28)
[2019-08-24] MEDS: HYDROXYUREA 500 MG CAPSULE PO SCH ×3 (10:42→17:00)
[2019-08-24] MEDS: DOCUSATE SODIUM 100 MG CAPSULE PO SCH ×2 (10:42→17:00)
[2019-08-24] MEDS: GABAPENTIN 300 MG CAPSULE PO SCH ×2 (10:42→21:28)
[2019-08-24] MEDS: CHOLECALCIFEROL (D3) 1,000 UNIT (25 MCG) TABLET PO SCH (10:42)
[2019-08-24] MEDS: NEOMY/BACITRAC ZN/POLY OINT 15 GM TP SCH ×2 (10:42→17:00)
--- NOTE | 2019-08-24 20:25 | PDOC DISCHARGE SUMMARY ---
Impression - Admit/DC Date/PCP Admission Date/Primary Care Provider: 08/13/19 00:22 HOMA BARRAZA MD Discharge Date: 08/24/19 - Discharge Diagnosis (1) Sickle cell anemia with pain Is this a current diagnosis for this admission?: Yes (2) Opioid dependence Is this a current diagnosis for this admission?: Yes (3) E. coli UTI (urinary tract infection) Is this a current diagnosis for this admission?: Yes (4) Secondary hemochromatosis Is this a current diagnosis for this admission?: Yes (5) Vaso-occlusive sickle cell crisis Is this a current diagnosis for this admission?: Yes - Additional Information Referrals: SAVANNA AWAN MD [ACTIVE STAFF] - 09/18/19 1:00 pm HOMA BARRAZA MD [Primary Care Provider] - 08/27/19 2:30 pm Home Medications: Deferasirox [Jadenu] 360 mg PO DAILY 08/13/19 Epoetin Federico [Procrit Inj 20,000 Unit/1 ml Vial (Renal)] 60,000 unit IJ FR@1000 08/13/19 Ergocalciferol (Vitamin D2) [Vitamin D2] 50 mcg PO WE@1000 08/13/19 Folic Acid 1 mg PO DAILY 08/13/19 Gabapentin [Neurontin 300 mg Capsule] 300 mg PO Q12 08/13/19 Hydroxyurea [Hydrea 500 mg Capsule] 500 mg PO TID 08/13/19 Oxycodone HCl [Oxy-Ir 5 mg Tablet] 10 mg PO Q6HP PRN 08/13/19 Oxycodone HCl [Oxycodone HCl ER] 30 mg PO Q12 08/13/19 History of Present Illiness History of Present Illness: WILLIE ALAN is a 49 year old female, She has a history of sickle cell disease, opioid dependence,Multiple hospitalization for sickle cell bone pain crisis, chronic anemia, secondary hemochromatosis due to multiple blood transfus ion. She was recently discharged from this hospital on 07/13/2019 when she presented with acute sickle cell bone pain crisis, since discharge from the hospital she has been to the emergency room twice requesting for admission. Patient has become essentially dependent on opioid, she is addicted to narcotics she is on megadoses of opioid outpatient, when she get admitted she also continue to get megadoses of opioid intravenously. The challenge is to discern a true bone pain crisis which is basically subjective there is no objective way to measure her claim of bone pain crisis, the lab work that was done in the ER was normal, hemoglobin is 8 her baseline hemoglobin is about 5-7 when I saw her on the floor she does not appear to me as someone in severe pain. I believe she needs to go to treatment center to help her with her opioid addiction Hospital Course Hospital Course: Patient was admitted for the management of acute sickle cell bone pain crisis, E. coli UTI, she was seen in consultation by Dr. Gambino, commercial portfolio manager she manage her bone pain crisis with Dilaudid and IV fluid, UTI was treated with antibiotic patient is improved ready for discharge today Physical Exam Vital Signs: Temp Pulse Resp BP Pulse Ox 99.0 F 8 L 18 103/56 L 98 08/24/19 15:45 08/24/19 19:00 08/24/19 15:45 08/24/19 15:45 08/24/19 15:45 Intake & Output 08/23/19 08/24/19 08/25/19 06:59 06:59 06:59 Intake Total 2210 3057 3105 Output Total 3000 800 Balance 2210 57 2305 Weight 62.9 kg 62.9 kg General appearance: PRESENT: no acute distress Eye exam: PRESENT: PERRLA Respiratory exam: PRESENT: clear to auscultation carolyn Cardiovascular exam: PRESENT: +S1, +S2 GI/Abdominal exam: PRESENT: soft Neurological exam: PRESENT: alert Results Laboratory Results: WBC 6.6 10^3/uL (4.0-10.5) 08/22/19 16:45 RBC 1.43 10^6/uL (3.72-5.28) L 08/22/19 16:45 Hgb 6.3 g/dL (12.0-15.5) L 08/22/19 16:45 Hct 17.5 % (36.0-47.0) L 08/22/19 16:45 MCV 123 fl (80-97) H 08/22/19 16:45 MCH 44.0 pg (27.0-33.4) H 08/22/19 16:45 MCHC 35.9 g/dL (32.0-36.0) 08/22/19 16:45 RDW 17.5 % (11.5-14.0) H 08/22/19 16:45 Plt Count 185 10^3/uL (150-450) 08/22/19 16:45 Lymph % (Auto) Not Reportable 08/22/19 16:45 [place] % (Auto) Not Reportable 08/22/19 16:45 Eos % (Auto) Not Reportable 08/22/19 16:45 Baso % (Auto) Not Reportable 08/22/19 16:45 Reticulocyte # 0.082 10^6/uL (0.028-0.122) 08/12/19 21:02 Absolute Neuts (auto) Not Reportable 08/22/19 16:45 Absolute Lymphs (auto) Not Reportable 08/22/19 16:45 Absolute Monos (auto) Not Reportable 08/22/19 16:45 Absolute Eos (auto) Not Reportable 08/22/19 16:45 Absolute Basos (auto) Not Reportable 08/22/19 16:45 Total Counted 100 08/22/19 16:45 Seg Neutrophils % Not Reportable 08/22/19 16:45 Seg Neuts % (Manual) 50 % (42-78) 08/22/19 16:45 Lymphocytes % (Manual) 40 % (13-45) 08/22/19 16:45 Atypical Lymphs % 1 % (0) 08/22/19 16:45 Monocytes % (Manual) 4 % (3-13) 08/22/19 16:45 Eosinophils % (Manual) 5 % (0-6) 08/22/19 16:45 Basophils % (Manual) 0 % (0-2) 08/22/19 16:45 Abs Neuts (Manual) 3.3 10^3/uL (1.7-8.2) 08/22/19 16:45 Abs Lymphs (Manual) 2.7 10^3/uL (0.5-4.7) 08/22/19 16:45 Abs Monocytes (Manual) 0.3 10^3/uL (0.1-1.4) 08/22/19 16:45 Absolute Eos (Manual) 0.3 10^3/uL (0.0-0.6) 08/22/19 16:45 Abs Basophils (Manual) 0.0 10^3/uL (0.0-0.2) 08/22/19 16:45 Nucleated RBCs 4 /100 WBC (0) 08/22/19 16:45 Large Platelets PRESENT 08/15/19 06:06 Platelet Comment ADEQUATE 08/22/19 16:45 Polychromasia 2+ 08/22/19 16:45 Poikilocytosis 1+ 08/18/19 07:55 Basophilic Stippling PRESENT 08/15/19 06:06 Anisocytosis 1+ 08/22/19 16:45 Macrocytosis 4+ 08/22/19 16:45 Pappenheimer Bodies PRESENT 08/15/19 06:06 Sickle Cells SLIGHT 08/14/19 22:12 Target Cells SLIGHT 08/18/19 07:55 Tear Drop Cells SLIGHT 08/15/19 06:06 Ovalocytes SLIGHT 08/22/19 16:45 [place] Bodies PRESENT 08/22/19 16:45 Acanthocytes (Spur) SLIGHT 08/15/19 06:06 Schistocytes SLIGHT 08/15/19 06:06 RBC Morph Comment 08/15/19 06:06 Retic Count (auto) 4.13 % (0.66-2.85) H 08/12/19 21:02 Sodium 136.2 mmol/L (137-145) L 08/22/19 16:45 Potassium 4.3 mmol/L (3.6-5.0) 08/22/19 16:45 Chloride 106 mmol/L (98-107) 08/22/19 16:45 Carbon Dioxide 22 mmol/L (22-30) 08/22/19 16:45 Anion Gap 8 (5-19) 08/22/19 16:45 BUN 8 mg/dL (7-20) 08/22/19 16:45 Creatinine 0.73 mg/dL (0.52-1.25) 08/22/19 16:45 Est GFR ( Amer) > 60 (>60) 08/22/19 16:45 Est GFR (MDRD) Non-Af > 60 (>60) 08/22/19 16:45 Glucose 135 mg/dL (75-110) H 08/22/19 16:45 Calcium 8.8 mg/dL (8.4-10.2) 08/22/19 16:45 Total Bilirubin 2.7 mg/dL (0.2-1.3) H 08/22/19 16:45 Direct Bilirubin 0.3 mg/dL (0.0-0.4) 08/22/19 16:45 Neonat Total Bilirubin Not Reportable 08/22/19 16:45 Neonat Direct Bilirubin Not Reportable 08/22/19 16:45 Neonat Indirect Bili Not Reportable 08/22/19 16:45 AST 84 U/L (14-36) H 08/22/19 16:45 ALT 61 U/L (<35) H 08/22/19 16:45 Alkaline Phosphatase 143 U/L (38-126) H 08/22/19 16:45 Lactate Dehydrogenase 319 U/L (120-246) H 08/18/19 07:55 Troponin I < 0.012 ng/mL 08/12/19 22:43 NT-Pro-B Natriuret Pep 54 pg/mL (<125) 08/12/19 22:43 Total Protein 6.8 g/dL (6.3-8.2) 08/22/19 16:45 Albumin 3.9 g/dL (3.5-5.0) 08/22/19 16:45 08/12/19 22:43 Troponin I < 0.012 NT-Pro-B Natriuret Pep 54 Impressions: Chest X-Ray 08/12/19 19:10 IMPRESSION: Diminished pulmonary vascular congestion. No acute pulmonary fi ndings otherwise. Shoulder X-Ray 08/18/19 00:00 IMPRESSION: NEGATIVE STUDY OF THE RIGHT SHOULDER. NO EXPLANATION FOR PAIN. Stroke Is this a Stroke Patient?: No Acute Heart Failure - Is this a Heart Failure Patient?: No
[2019-08-24] MEDS ORDERED: OXYCODONE HCL IR 5 MG TABLET PO PRN (21:07)
[2019-08-25] MEDS: PROMETHAZINE HCL INJ 25 MG/1 ML VIAL IV PRN ×2 (01:32→05:46)
[2019-08-25] MEDS: HYDROMORPHONE HCL INJ/PF 2 MG/ML AMPULE IV PRN ×3 (01:32→05:45)
[2019-08-25] MEDS: DIPHENHYDRAMINE HCL 50 MG/ML VIAL IV PRN ×2 (03:44→09:14)
[2019-08-25] MEDS: 1/2 NORMAL SALINE 1,000 ML IV PRN (03:47)
[2019-08-25] MEDS: HEPARIN SOD (PORCINE) 5,000 UNIT/ML 1 ML VIAL SUBCUT SCH (05:43)
[2019-08-25] MEDS: OXYCODONE HCL SR 10 MG TABLET PO SCH (09:09)
[2019-08-25] MEDS: GABAPENTIN 300 MG CAPSULE PO SCH (09:10)
[2019-08-25] MEDS: FOLIC ACID 1 MG TABLET PO SCH (09:10)
[2019-08-25] MEDS: DOCUSATE SODIUM 100 MG CAPSULE PO SCH (09:10)
[2019-08-25] MEDS: FAMOTIDINE 20 MG TABLET PO SCH (09:10)
[2019-08-25] MEDS: CHOLECALCIFEROL (D3) 1,000 UNIT (25 MCG) TABLET PO SCH (09:10)
[2019-08-25] MEDS: HYDROXYUREA 500 MG CAPSULE PO SCH (09:14)
[2019-08-25] MEDS: NEOMY/BACITRAC ZN/POLY OINT 15 GM TP SCH (09:14)
[2019-08-25 09:32] VITALS: BP 92/53
== END 2019-08-25 11:26 | disposition home or self-care (01) | DRG 812 ==
LOC: ER 18:17 → EH 08-13 00:22 → 3W 08-13 03:31
PROVIDERS: ADMIT Internal Medicine; ATTEND Internal Medicine
DX: D57.00 Hb-SS disease with crisis, unspecified (principal); N39.0 Urinary tract infection, site not specified; F11.20 Opioid dependence, uncomplicated; E83.111 Hemochromatosis due to repeated red blood cell transfusions; R01.1 Cardiac murmur, unspecified; F41.9 Anxiety disorder, unspecified; B96.20 Unspecified Escherichia coli [E. coli] as the cause of diseases classified elsewhere; Z86.14 Personal history of Methicillin resistant Staphylococcus aureus infection
CPT/HCPCS: 36415; 36591; 71046; 80053; 83615; 83880; 84484; 85025; 85045; 87040; 87086; 87088; 87186; 93005; 93010; 96374; 96375; 96376; 99285; J1170; J1200; J1642; J1644; J2405; J2550; J3411; J3475; J3480; J3490; J7030

== ENCOUNTER 2019-10-02 13:42 | Inpatient (IN) | payer MEDICAID ==
--- NOTE | 2019-10-02 13:56 | ER Document Report ---
ED General - General Stated Complaint: SHORTNESS OF BREATH Time Seen by Provider: 10/02/19 13:55 Primary Care Provider: SAVANNA AWAN MD [Primary Care Provider] - Follow up as needed Information source: Patient TRAVEL OUTSIDE OF THE [place] IN LAST 30 DAYS: No - HPI Onset: Other - over the last few days Onset/Duration: Gradual Quality of pain: Sharp Severity: Severe Pain Level: 5 Associated symptoms: Shortness of breath Exacerbated by: Denies Relieved by: Denies Similar symptoms previously: Yes - with sickle cell pain crisis Recently seen / treated by doctor: Yes - patient was admitted last month for a sickle cell pain crisis Notes: 49 year old female with a history of Sickle Cell Anemia here in the ER for chest pain, back pain, and shortness of breath which she says is consistent with a normal sickle cell pain crisis. The patient says she has been having some low grade temps which is also typical for her during a pain crisis. The patient was admitted in July of 2019 for a pain crisis. Looking at previous hospi talizations, there is a question of if the patient has an issue with pain medications. - Related Data Allergies/Adverse Reactions: doxycycline [Doxycycline] Allergy (Severe, Verified 08/12/19 19:02) Past Medical History - General Information source: Patient - Social History Smoking Status: Never Smoker Frequency of alcohol use: Occasional Drug Abuse: None Family History: Reviewed & Not Pertinent - Past Medical History Cardiac Medical History: Reports: Hx Heart Murmur Denies: Hx Atrial Fibrillation, Hx Congestive Heart Failure, Hx Coronary Artery Disease, Hx Heart Attack, Hx Hypercholesterolemia, Hx Hypertension, Hx Peripheral Vascular Disease Pulmonary Medical History: Denies: Hx Tuberculosis Neurological Medical History: Denies: Hx Seizures Renal/ Medical History: Reports: Hx Ovarian Cysts. 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 Denies: Hx HIV Past Surgical History: Reports: Hx Appendectomy, Hx Section, Hx Cholecystectomy, Hx Orthopedic Surgery - R knee, Hx Tonsillectomy. Denies: Hx Bowel Surgery, Hx Coronary Artery Bypass Graft, Hx Gastric Bypass Surgery, Hx Herniorrhaphy, Hx Mastectomy, Hx Pacemaker, Hx Tubal Ligation - Immunizations Immunizations up to date: Yes Hx Diphtheria, Pertussis, Tetanus Vaccination: Yes Hx Pneumococcal Vaccination: 03/20/14 Review of Systems - Review of Systems Constitutional: No symptoms reported EENT: No symptoms reported Cardiovascular: Chest pain Respiratory: Short of breath Gastrointestinal: No symptoms reported Genitourinary: No symptoms reported Female Genitourinary: No symptoms reported Musculoskeletal: Back pain Skin: No symptoms reported Hematologic/Lymphatic: No symptoms reported Neurological/Psychological: No symptoms reported -: Yes All other systems reviewed and negative Physical Exam - Vital signs Vitals: Temp Pulse Ox 99.8 F 98 10/02/19 13:48 10/02/19 13:48 - Notes Notes: GENERAL: Well-appearing, well-nourished and in no acute distress. HEAD: Atraumatic, normocephalic. EYES: Pupils equal round and reactive to light, extraocular movements intact, s clera anicteric, conjunctiva are normal. ENT: External ears normal in appearance, nares patent, oropharynx clear without exudates. Moist mucous membranes. NECK: Normal range of motion, supple without lymphadenopathy or JVD. LUNGS: Breath sounds clear to auscultation bilaterally and equal. No wheezes rales or rhonchi. HEART: Regular rate and rhythm without murmurs, rubs or gallops. ABDOMEN: Soft, nontender, normoactive bowel sounds. No guarding, no rebound. No masses appreciated. EXTREMITIES: Normal range of motion, no pitting or edema. No clubbing or cyanosis. NEUROLOGICAL: Cranial nerves II through XII grossly intact. Normal speech, normal gait. PSYCH: Normal mood, normal affect. SKIN: Warm, Dry, normal turgor, no rashes or lesions noted. Course - Re-evaluation Re-evalutation: 10/02/19 16:11 The patient is here for a sickle cell pain crisis and her labs are consistent with this for the most part. I spoke with her PCP Dr. Roberson and he feels there is certainly pain seeking behavior and I tend to agree. The patient appears comfortable here in the ER but she says she cannot possibly manage her pain pain at home. Patient therefore admitted for OBs to Dr. Roberson. Patient was given fluids, Toradol, Dilaudid, and Benadryl here in the ER prior to admission. - Vital Signs Vital signs: Temp Pulse Resp BP Pulse Ox 99.8 F 25 H 107/64 99 10/02/19 13:48 10/02/19 15:07 10/02/19 15:07 10/02/19 15:07 - Laboratory Result Diagrams: 10/02/19 14:12 10/02/19 14:12 Laboratory results interpreted by me: 10/02/19 10/02/19 10/02/19 14:12 14:12 14:12 RBC 1.85 L Hgb 8.4 L Hct 22.8 L MCV 124 H MCH 45.7 H MCHC 36.9 H RDW 15.7 H Reticulocyte # Retic Count (auto) PT 17.1 H Potassium 3.3 L Chloride 109 H Carbon Dioxide 21 L Glucose 127 H Total Bilirubin 4.8 H AST 83 H ALT 56 H Alkaline Phosphatase 150 H Lactate Dehydrogenase Total Protein 8.5 H 10/02/19 10/02/19 14:12 14:12 RBC Hgb Hct MCV MCH MCHC RDW Reticulocyte # 0.127 H Retic Count (auto) 6.72 H PT Potassium Chloride Carbon Dioxide Glucose Total Bilirubin AST ALT Alkaline Phosphatase Lactate Dehydrogenase 467 H Total Protein - Diagnostic Test Radiology reviewed: Image reviewed, Reports reviewed - EKG Interpretation by Me EKG shows normal: Sinus rhythm, [place], Intervals, QRS Complexes, ST-T Waves Rate: Normal Rhythm: NSR Discharge - Discharge Clinical Impression: Sickle cell pain crisis Condition: Stable Disposition: ADMITTED OBSERVATION Admitting Provider: [facility] Unit Admitted: Medical Floor Referrals: SAVANNA AWAN MD [Primary Care Provider] - Follow up as needed
[2019-10-02 14:30] LABS: HEMATOCRIT 22.8 % (36.0-47.0); HEMOGLOBIN 8.4 g/dL (12.0-15.5); MEAN CORPUSCULAR HEMOGLOBIN 45.7 pg (27.0-33.4); MEAN CORPUSCULAR HGB CONC 36.9 g/dL (32.0-36.0); MEAN CORPUSCULAR VOLUME 124 fl (80-97); PLATELET COUNT 354 10^3/uL (150-450); RED BLOOD COUNT 1.85 10^6/uL (3.72-5.28); RED CELL DISTRIBUTION WIDTH 15.7 % (11.5-14.0); WHITE BLOOD COUNT 5.5 10^3/uL (4.0-10.5)
[2019-10-02] MEDS ORDERED: KETOROLAC TROMETHAMINE INJ/PF 30 MG/1 ML SDV IV ONE (14:34)
[2019-10-02] MEDS ORDERED: HYDROMORPHONE HCL INJ/PF 2 MG/ML AMPULE IV ONE ×2 (14:35→17:25)
[2019-10-02] MEDS ORDERED: NORMAL SALINE 1000 ML 1,000 ML IV ONE (14:35)
[2019-10-02] MEDS ORDERED: DIPHENHYDRAMINE HCL 50 MG/ML VIAL IV ONE (14:35)
[2019-10-02 14:44] LABS: ABSOLUTE RETICS # 0.127 10^6/uL (0.028-0.122); RETICULOCYTE COUNT (AUTO) 6.72 % (0.66-2.85)
[2019-10-02 14:46] LABS: INTERNATIONAL RATION (INR) 1.38; PROTHROMBIN TIME 17.1 SEC (11.4-15.4)
[2019-10-02 14:58] LABS: ALKALINE PHOSPHATASE 150 U/L (38-126); ANION GAP 10 (5-19); ASPARTATE AMINO TRANSFERASE 83 U/L (14-36); BILIRUBIN,DIRECT 0.3 mg/dL (0.0-0.4); BILIRUBIN,TOTAL 4.8 mg/dL (0.2-1.3); BLOOD UREA NITROGEN 8 mg/dL (7-20); CALCIUM 9.7 mg/dL (8.4-10.2); CARBON DIOXIDE 21 mmol/L (22-30); CHLORIDE 109 mmol/L (98-107); GLUCOSE 127 mg/dL (75-110); POTASSIUM 3.3 mmol/L (3.6-5.0); TOTAL PROTEIN 8.5 g/dL (6.3-8.2)
[2019-10-02 15:01] LABS: ABSOLUTE LYMPHOCYTES# (MANUAL) 1.2 10^3/uL (0.5-4.7); ABSOLUTE MONOCYTES # (MANUAL) 0.3 10^3/uL (0.1-1.4); BASOPHILS % (MANUAL) 1 % (0-2); EOSINOPHILS % (MANUAL) 1 % (0-6); LYMPHOCYTES % (MANUAL) 21 % (13-45); MONOCYTES % (MANUAL) 6 % (3-13); NUCLEATED RED BLOOD CELLS 3 /100 WBC (0); SEGMENTED NEUTROPHILS % (MAN) 70 % (42-78); TOTAL CELLS COUNTED 100
--- NOTE | 2019-10-02 15:01 | RADIOLOGY REPORT (SQ) ---
EXAM DESCRIPTION: CHEST SINGLE VIEW IMAGES COMPLETED DATE/TIME: 10/02/2019 2:46 pm REASON FOR STUDY: short of breath COMPARISON: 08/12/2019 EXAM PARAMETERS: NUMBER OF VIEWS: One view. TECHNIQUE: Single frontal radiographic view of the chest acquired. RADIATION DOSE: NA LIMITATIONS: None. FINDINGS: LUNGS AND PLEURA: No opacities, masses or pneumothorax. No pleural effusion. MEDIASTINUM AND HILAR STRUCTURES: No masses. Contour normal. HEART AND VASCULAR STRUCTURES: Heart normal in size. Normal vasculature. BONES: No acute findings. HARDWARE: [id number] is in place. OTHER: No other significant finding. IMPRESSION: NO ACUTE RADIOGRAPHIC FINDING IN THE CHEST. TECHNICAL DOCUMENTATION: JOB ID: [id number] 2010 [employer]- All Rights Reserved Reading location - IP/workstation name: [email or web address]
[2019-10-02 15:03] LABS: ANISOCYTOSIS SLIGHT; HOWELL-JOLLY BODIES PRESENT; PAPPENHEIMER BODIES PRESENT; PLATELET COMMENT ADEQUATE; POIKILOCYTOSIS 1+; POLYCHROMASIA 1+; SCHISTOCYTES SLIGHT; SICKLE RED CELLS SLIGHT; TARGET CELLS SLIGHT; TEAR DROP CELLS SLIGHT
--- NOTE | 2019-10-02 17:32 | EKG REPORT ---
SEVERITY:- BORDERLINE ECG - SINUS RHYTHM NONSPECIFIC ST-T CHANGES ANTERIOR LEADS : Confirmed by: Killian Moraes MD 02-Oct-2019 17:31:41
[2019-10-02] MEDS ORDERED: NORMAL SALINE 1000 ML 1,000 ML IV PRN (18:59)
[2019-10-02] MEDS ORDERED: HYDROMORPHONE HCL INJ/PF 2 MG/ML AMPULE IV PRN (19:04)
--- NOTE | 2019-10-02 19:18 | PDOC CONSULTATION ---
Consultation Consult Date: 10/02/19 Provider Consulted: SAVANNA AWAN Consult reason:: Hematology/Oncology consultation was requested for patient with Sickle Cell pain crisi History of Present Illness Admission Date/PCP: 10/02/19 16:52 SAVANNA AWAN MD History of Present Illness: WILLIE ALAN is a 49 year old female who has frequent admissions to the hospital for acute sickle cell pain crisis. Due to COVID-19 restrictions, I was not able to examine patient, but did speak with her by telephone. I also reviewed her chart, and discussed her care with nursing staff. She presented with dyspnea as well as typical pain crisis. She was started on fluids and oxygen and was given IV dilaudid in the ED, however, she did not get much relief. She states that she has now been on the floor for quite some time without any of her medications or pain medication. 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 Denies: HIV Past Surgical History Past Surgical History: Reports: Appendectomy, Section, Cholecystectomy, Orthopedic Surgery - R knee, Tonsillectomy Denies: Amputation, Coronary Artery Bypass Graft, Gastric Bypass Surgery, Herniorrhaphy, Mastectomy, Pacemaker, Tubal Ligation Social History Smoking Status: Never Smoker Frequency of Alcohol Use: None Hx Recreational Drug Use: No Drugs: None Hx Prescription Drug Abuse: No Family History Family History: Reviewed & Not Pertinent Parental Family History Reviewed: Yes - Sickle Cell disease Children Family History Reviewed: No Sibling(s) Family History Reviewed.: No Medication/Allergy Home Medications: Deferasirox [Jadenu] 360 mg PO DAILY 08/13/19 Epoetin Federico [Procrit Inj 20,000 Unit/1 ml Vial (Renal)] 60,000 unit IJ FR@1000 08/13/19 Ergocalciferol (Vitamin D2) [Vitamin D2] 50 mcg PO WE@99908/13/19 Folic Acid 1 mg PO DAILY 08/13/19 Gabapentin [Neurontin 300 mg Capsule] 300 mg PO Q12 08/13/19 Hydroxyurea [Hydrea 500 mg Capsule] 500 mg PO TID 08/13/19 Oxycodone HCl [Oxy-Ir 5 mg Tablet] 10 mg PO Q6HP PRN 08/13/19 Oxycodone HCl [Oxycodone HCl ER] 30 mg PO Q12 08/13/19 Allergies/Adverse Reactions: doxycycline [Doxycycline] Allergy (Severe, Verified 08/12/19 19:02) Review of Systems Constitutional: ABSENT: fever(s) Eyes: ABSENT: visual disturbances Ears: PRESENT: hearing changes Nose, Mouth, and Throat: ABSENT: sore throat Cardiovascular: PRESENT: chest pain, dyspnea on exertion Respiratory: PRESENT: dyspnea Gastrointestinal: ABSENT: constipation Musculoskeletal: PRESENT: joint swelling Neurological: ABSENT: memory loss Psychiatric: ABSENT: anxiety Physical Exam Vital Signs: Temp Pulse Resp BP Pulse Ox 98.5 F 18 102/60 99 10/02/19 17:25 10/02/19 17:01 10/02/19 17:01 10/02/19 17:01 Intake & Output 10/01/19 10/02/19 10/03/19 06:59 06:59 06:59 Intake Total 1000 Balance 1000 Weight 62 kg Results Laboratory Results: 10/02/19 14:12 10/02/19 14:12 10/02/19 10/02/19 10/02/19 14:12 14:12 14:12 WBC 5.5 RBC 1.85 L Hgb 8.4 L Hct 22.8 L MCV 124 H MCH 45.7 H MCHC 36.9 H RDW 15.7 H Plt Count 354 Seg Neutrophils % Not Reportable Retic Count (auto) 6.72 H Sodium 139.5 Potassium 3.3 L Chloride 109 H Carbon Dioxide 21 L Anion Gap 10 BUN 8 Creatinine 0.56 Est GFR ( Amer) > 60 Glucose 127 H Calcium 9.7 Total Bilirubin 4.8 H AST 83 H Alkaline Phosphatase 150 H Total Protein 8.5 H Albumin 5.0 Impressions: Chest X-Ray 10/02/19 13:47 IMPRESSION: NO ACUTE RADIOGRAPHIC FINDING IN THE CHEST. Assessment & Plan - Diagnosis (1) Sickle cell pain crisis Is this a current diagnosis for this admission?: Yes Plan: Will continue IV fluids, Oxygen, and will use IV dilaudid. Will also use Folic acid, phenergan and benadryl PRN, as per her usual routine. THis usually helps her pain within a few days. (2) Iron overload due to repeated red blood cell transfusions Is this a current diagnosis for this admission?: Yes Plan: She should continue her home Jadenu. Will avoid blood transfusions if at all possible. - Plan Summary Plan Summary: I will be happy to follow her with you. Please call me with any concerns.
--- NOTE | 2019-10-02 20:05 | PDOC H&P ---
History of Present Illness Admission Date/PCP: 10/02/19 16:52 SAVANNA AWAN MD History of Present Illness: WILLIE ALAN is a 49 year old female, Patient is well-known to this hospit al, she has multiple hospitalization for the management of sickle cell crisis, she came to emergency room for evaluation of bone pain, the blood work that was done suggest evidence of hemolysis, there was associated increase reticulocyte count, LDH was elevated, hyperbilirubinemia.Usually her pain is managed by the corking machine operator Dr. 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 Denies: HIV Past Surgical History Past Surgical History: Reports: Appendectomy, Section, Cholecystectomy, Orthopedic Surgery - R knee, Tonsillectomy Social History Smoking Status: Never Smoker Frequency of Alcohol Use: None Hx Recreational Drug Use: No Drugs: None Hx Prescription Drug Abuse: No Family History Family History: Reviewed & Not Pertinent Parental Family History Reviewed: Yes Children Family History Reviewed: Yes Sibling(s) Family History Reviewed.: Yes Medication/Allergy Home Medications: Deferasirox [Jadenu] 360 mg PO DAILY 08/13/19 Epoetin Federico [Procrit Inj 20,000 Unit/1 ml Vial (Renal)] 60,000 unit IJ FR@1000 08/13/19 Ergocalciferol (Vitamin D2) [Vitamin D2] 50 mcg PO WE@1000 08/13/19 Folic Acid 1 mg PO DAILY 08/13/19 Gabapentin [Neurontin 300 mg Capsule] 300 mg PO Q12 08/13/19 Hydroxyurea [Hydrea 500 mg Capsule] 500 mg PO TID 08/13/19 Oxycodone HCl [Oxy-Ir 5 mg Tablet] 10 mg PO Q6HP PRN 08/13/19 Oxycodone HCl [Oxycodone HCl ER] 30 mg PO Q12 08/13/19 Allergies/Adverse Reactions: doxycycline [Doxycycline] Allergy (Severe, Verified 08/12/19 19:02) Review of Systems Constitutional: ABSENT: chills, fever(s), headache(s), weight gain, weight loss Eyes: ABSENT: visual disturbances Ears: ABSENT: hearing changes Cardiovascular: ABSENT: chest pain, dyspnea on exertion, edema, orthropnea, palpitations Respiratory: ABSENT: cough, hemoptysis Gastrointestinal: ABSENT: abdominal pain, constipation, diarrhea, hematemesis, hematochezia, nausea, vomiting Genitourinary: ABSENT: dysuria, hematuria Musculoskeletal: PRESENT: back pain. ABSENT: joint swelling Integumentary: ABSENT: rash, wounds Neurological: ABSENT: abnormal gait, abnormal speech, confusion, dizziness, focal weakness, syncope Psychiatric: ABSENT: anxiety, depression, homidical ideation, suicidal ideation Endocrine: ABSENT: cold intolerance, heat intolerance, menstrual abnormalities, polydipsia, polyuria Hematologic/Lymphatic: ABSENT: easy bleeding, easy bruising, lymphadenopathy Physical Exam Vital Signs: Temp Pulse Resp BP Pulse Ox 98.5 F 18 102/60 99 10/02/19 17:25 10/02/19 17:01 10/02/19 17:01 10/02/19 17:01 Intake & Output 10/01/19 10/02/19 10/03/19 06:59 06:59 06:59 Intake Total 1000 Balance 1000 Weight 62 kg General appearance: PRESENT: no acute distress Head exam: PRESENT: atraumatic, normocephalic Eye exam: PRESENT: scleral icterus Ear exam: PRESENT: normal external ear exam Mouth exam: PRESENT: moist, tongue midline Neck exam: PRESENT: full ROM. ABSENT: carotid bruit, JVD, lymphadenopathy, thyromegaly Cardiovascular exam: PRESENT: RRR, +S1, +S2 Vascular exam: PRESENT: normal capillary refill GI/Abdominal exam: PRESENT: normal bowel sounds, soft Rectal exam: PRESENT: deferred Neurological exam: PRESENT: alert, CN II-XII grossly intact Psychiatric exam: PRESENT: appropriate affect, normal mood Skin exam: PRESENT: dry, intact, warm Results Laboratory Results: 10/02/19 14:12 10/02/19 14:12 10/02/19 10/02/19 10/02/19 14:12 14:12 14:12 WBC 5.5 RBC 1.85 L Hgb 8.4 L Hct 22.8 L MCV 124 H MCH 45.7 H MCHC 36.9 H RDW 15.7 H Plt Count 354 Seg Neutrophils % Not Reportable Retic Count (auto) 6.72 H Sodium 139.5 Potassium 3.3 L Chloride 109 H Carbon Dioxide 21 L Anion Gap 10 BUN 8 Creatinine 0.56 Est GFR ( Amer) > 60 Glucose 127 H Calcium 9.7 Total Bilirubin 4.8 H AST 83 H Alkaline Phosphatase 150 H Total Protein 8.5 H Albumin 5.0 Impressions: Chest X-Ray 10/02/19 13:47 IMPRESSION: NO ACUTE RADIOGRAPHIC FINDING IN THE CHEST. 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 Is this a current diagnosis for this admission?: Yes Plan: she has vaso-occlusive pain crisis (2) Sickle cell hemolytic anemia Qualifiers: Sickle-cell associated disorders: with unspecified crisis Qualified Code(s): D57.00 - Hb-SS disease with crisis, unspecified; D57.0 - Hb-SS disease with crisis Is this a current diagnosis for this admission?: Yes
[2019-10-02] MEDS ORDERED: DEFERASIROX 360 MG PO SCH (20:15)
[2019-10-02] MEDS: DIPHENHYDRAMINE HCL 50 MG/ML VIAL IV PRN (20:18)
[2019-10-02] MEDS: 1/2 NORMAL SALINE 1,000 ML IV PRN (20:45)
[2019-10-02] MEDS: THIAMINE HCL 100 MG, FOLIC ACID 1 MG in NORMAL SALINE 250 ML IV SCH (21:45)
[2019-10-02] MEDS: GABAPENTIN 300 MG CAPSULE PO SCH (21:46)
[2019-10-02 21:54] LABS: INTERNATIONAL RATION (INR) 1.49; PROTHROMBIN TIME 18.2 SEC (11.4-15.4)
[2019-10-02 21:55] LABS: PARTIAL THROMBOPLASTIN TIME 29.9 SEC (23.5-35.8)
[2019-10-02 22:11] LABS: AMYLASE 51 U/L (30-110); ANION GAP 9 (5-19); BLOOD UREA NITROGEN 9 mg/dL (7-20); CALCIUM 9.1 mg/dL (8.4-10.2); CARBON DIOXIDE 19 mmol/L (22-30); CHLORIDE 111 mmol/L (98-107); GLUCOSE 135 mg/dL (75-110); POTASSIUM 3.5 mmol/L (3.6-5.0)
[2019-10-02] MEDS: ENOXAPARIN SODIUM INJ 40 MG/0.4 ML DISP.SYRIN SUBCUT SCH (22:24)
[2019-10-02] MEDS: FOLIC ACID 1 MG TABLET PO SCH (22:25)
[2019-10-02] MEDS: HYDROXYUREA 500 MG CAPSULE PO SCH (22:25)
[2019-10-02 22:26] LABS: FREE T4 (FREE THYROXINE) 1.08 ng/dL (0.78-2.19)
[2019-10-02 22:40] LABS: THYROID STIMULATING HORMONE 0.83 uIU/mL (0.47-4.68)
[2019-10-02] MEDS: HYDROMORPHONE HCL INJ/PF 2 MG/ML AMPULE IV PRN (23:44)
[2019-10-03] MEDS: HYDROMORPHONE HCL INJ/PF 2 MG/ML AMPULE IV PRN ×10 (01:47→23:52)
[2019-10-03] MEDS: DIPHENHYDRAMINE HCL 50 MG/ML VIAL IV PRN ×6 (01:48→23:52)
[2019-10-03] MEDS: 1/2 NORMAL SALINE 1,000 ML IV PRN ×2 (03:48→20:47)
[2019-10-03 04:13] LABS: APPEARANCE,URINE SLIGHTLY-CLOUDY; BILIRUBIN,URINE NEGATIVE (NEGATIVE); COLOR,URINE AMBER; GLUCOSE, URINE NEGATIVE (NEGATIVE); KETONES,URINE NEGATIVE (NEGATIVE); LEUKOCYTE ESTERASE,URINE NEGATIVE (NEGATIVE); NITRITE,URINE NEGATIVE (NEGATIVE); PROTEIN,URINE NEGATIVE (NEGATIVE); URINE SPECIFIC GRAVITY 1.013; UROBILINOGEN,URINE NEGATIVE mg/dL (<2.0)
[2019-10-03 04:35] LABS: URINE AMPHETAMINES SCREEN NEGATIVE; URINE BARBITURATES SCREEN NEGATIVE; URINE BENZODIAZEPINES SCREEN NEGATIVE; URINE COCAINE SCREEN NEGATIVE; URINE MARIJUANA (THC) SCREEN NEGATIVE; URINE METHADONE SCREEN NEGATIVE; URINE PHENCYCLIDINE SCREEN NEGATIVE
[2019-10-03 06:23] LABS: HEMATOCRIT 18.9 % (36.0-47.0); MEAN CORPUSCULAR HGB CONC 35.5 g/dL (32.0-36.0); MEAN CORPUSCULAR VOLUME 124 fl (80-97); PLATELET COUNT 268 10^3/uL (150-450); RED BLOOD COUNT 1.53 10^6/uL (3.72-5.28); RED CELL DISTRIBUTION WIDTH 15.6 % (11.5-14.0); RETICULOCYTE COUNT (AUTO) 7.16 % (0.66-2.85); WHITE BLOOD COUNT 7.5 10^3/uL (4.0-10.5)
[2019-10-03 06:29] LABS: HEMOGLOBIN 6.7 g/dL (12.0-15.5)
[2019-10-03 06:53] LABS: ABSOLUTE LYMPHOCYTES# (MANUAL) 3.5 10^3/uL (0.5-4.7); ABSOLUTE MONOCYTES # (MANUAL) 0.5 10^3/uL (0.1-1.4); BASOPHILS % (MANUAL) 4 % (0-2); EOSINOPHILS % (MANUAL) 3 % (0-6); LYMPHOCYTES % (MANUAL) 46 % (13-45); MONOCYTES % (MANUAL) 7 % (3-13); NUCLEATED RED BLOOD CELLS 4 /100 WBC (0); SEGMENTED NEUTROPHILS % (MAN) 40 % (42-78); TOTAL CELLS COUNTED 100
[2019-10-03 06:55] LABS: ALBUMIN 4.1 g/dL (3.5-5.0); ALKALINE PHOSPHATASE 121 U/L (38-126); ANION GAP 8 (5-19); ANISOCYTOSIS 1+; ASPARTATE AMINO TRANSFERASE 92 U/L (14-36); BILIRUBIN,DIRECT 0.1 mg/dL (0.0-0.4); BILIRUBIN,TOTAL 4.5 mg/dL (0.2-1.3); BLOOD UREA NITROGEN 11 mg/dL (7-20); CALCIUM 8.8 mg/dL (8.4-10.2); CARBON DIOXIDE 22 mmol/L (22-30); CHLORIDE 109 mmol/L (98-107); CHOLESTEROL 124.07 mg/dL (0-200); GLUCOSE 120 mg/dL (75-110); HOWELL-JOLLY BODIES PRESENT; PLATELET COMMENT ADEQUATE; POIKILOCYTOSIS SLIGHT; POLYCHROMASIA SLIGHT; POTASSIUM 3.5 mmol/L (3.6-5.0); SCHISTOCYTES SLIGHT; SICKLE RED CELLS SLIGHT; TOTAL PROTEIN 7.2 g/dL (6.3-8.2); TRIGLYCERIDES 45 mg/dL (<150)
[2019-10-03 07:07] LABS: DIRECT LDL 48 mg/dL (<100)
[2019-10-03 08:04] LABS: FOLATE > 20.00 ng/mL (>2.76)
[2019-10-03] MEDS: PROMETHAZINE HCL INJ 25 MG/1 ML VIAL IV PRN ×4 (08:10→21:21)
[2019-10-03] MEDS ORDERED: HYDROXYUREA 500 MG CAPSULE PO SCH (10:00)
[2019-10-03] MEDS ORDERED: (PENDING PHARMACY ID) (Ergocalciferol (Vitamin D2) [Vitamin D2] 50 MCG) PO SCH (10:00)
[2019-10-03] MEDS: ENOXAPARIN SODIUM INJ 40 MG/0.4 ML DISP.SYRIN SUBCUT SCH (10:16)
[2019-10-03] MEDS: FOLIC ACID 1 MG TABLET PO SCH (10:17)
[2019-10-03] MEDS: GABAPENTIN 300 MG CAPSULE PO SCH ×2 (10:17→21:22)
[2019-10-03] MEDS: HYDROXYUREA 500 MG CAPSULE PO SCH ×3 (10:17→17:05)
[2019-10-03] MEDS: ERGOCALCIFEROL (VITAMIN D2) 50000 UNIT (1.25 MG) CAPSULE PO SCH (10:35)
[2019-10-03] MEDS: NORMAL SALINE 1000 ML 1,000 ML IV PRN (12:22)
--- NOTE | 2019-10-03 16:08 | PDOC PROGRESS REPORT ---
Subjective Progress Note for:: 10/03/19 Subjective:: Patient seen by the bedside admitted yesterday Reason For Visit: SICKLE CELL PAIN CRISIS Physical Exam Vital Signs: Temp Pulse Resp BP Pulse Ox 98.9 F 80 18 107/66 95 10/03/19 12:09 10/03/19 12:09 10/03/19 12:09 10/03/19 12:09 10/03/19 12:09 Intake & Output 10/02/19 10/03/19 10/04/19 06:59 06:59 06:59 Intake Total 2321.2 1360 Balance 2321.2 1360 Weight 62 kg General appearance: PRESENT: no acute distress Eye exam: PRESENT: PERRLA Respiratory exam: PRESENT: clear to auscultation carolyn Cardiovascular exam: PRESENT: +S1, +S2 Neurological exam: PRESENT: alert Results Laboratory Results: 10/03/19 06:00 10/03/19 06:00 10/02/19 10/02/19 10/03/19 21:15 21:15 03:50 WBC RBC Hgb Hct MCV MCH MCHC RDW Plt Count Seg Neutrophils % Retic Count (auto) Sodium 139.1 Potassium 3.5 L Chloride 111 H Carbon Dioxide 19 L Anion Gap 9 BUN 9 Creatinine 0.62 Est GFR ( Amer) > 60 Glucose 135 H Calcium 9.1 Phosphorus 4.0 Magnesium 1.9 Iron TIBC Ferritin Total Bilirubin AST Alkaline Phosphatase Total Protein Albumin Triglycerides Cholesterol LDL Cholesterol Direct VLDL Cholesterol HDL Cholesterol Amylase 51 Lipase 80.3 Vitamin B12 Folate TSH 0.83 Free T4 1.08 Urine Color HINA Urine Appearance SLIGHTLY-CLOUDY Urine pH 5.0 Ur Specific Rosalia 1.013 Urine Protein NEGATIVE Urine Glucose (UA) NEGATIVE Urine Ketones NEGATIVE Urine Blood SMALL H Urine Nitrite NEGATIVE Ur Leukocyte Esterase NEGATIVE Urine WBC (Auto) 3 10/03/19 10/03/19 06:00 06:00 WBC 7.5 RBC 1.53 L Hgb 6.7 L Hct 18.9 L MCV 124 H MCH 44.0 H MCHC 35.5 RDW 15.6 H Plt Count 268 Seg Neutrophils % Not Reportable Retic Count (auto) 7.16 H Sodium 138.6 Potassium 3.5 L Chloride 109 H Carbon Dioxide 22 Anion Gap 8 BUN 11 Creatinine 0.69 Est GFR ( Amer) > 60 Glucose 120 H Calcium 8.8 Phosphorus Magnesium Iron Not Reportable TIBC Not Reportable Ferritin 3010.00 H Total Bilirubin 4.5 H AST 92 H Alkaline Phosphatase 121 Total Protein 7.2 Albumin 4.1 Triglycerides 45 Cholesterol 124.07 LDL Cholesterol Direct 48 VLDL Cholesterol 9.0 L HDL Cholesterol 59 Amylase Lipase Vitamin B12 370.0 Folate > 20.00 TSH Free T4 Urine Color Urine Appearance Urine pH Ur Specific Rosalia Urine Protein Urine Glucose (UA) Urine Ketones Urine Blood Urine Nitrite Ur Leukocyte Esterase Urine WBC (Auto) Impressions: Chest X-Ray 10/02/19 13:47 IMPRESSION: NO ACUTE RADIOGRAPHIC FINDING IN THE CHEST. 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 Is this a current diagnosis for this admission?: Yes Plan: Continue treatment (2) Sickle cell hemolytic anemia Qualifiers: Sickle-cell associated disorders: with unspecified crisis Qualified Code(s): D57.00 - Hb-SS disease with crisis, unspecified; D57.0 - Hb-SS disease with crisis Is this a current diagnosis for this admission?: Yes - Time Time Spent with patient: 25-34 minutes Level of Care: MEDICAL
[2019-10-03] MEDS: THIAMINE HCL 100 MG, FOLIC ACID 1 MG in NORMAL SALINE 250 ML IV SCH (21:22)
[2019-10-04] MEDS: PROMETHAZINE HCL INJ 25 MG/1 ML VIAL IV PRN ×4 (01:56→20:46)
[2019-10-04] MEDS: HYDROMORPHONE HCL INJ/PF 2 MG/ML AMPULE IV PRN ×10 (01:57→23:19)
[2019-10-04] MEDS: DIPHENHYDRAMINE HCL 50 MG/ML VIAL IV PRN ×5 (04:26→23:19)
[2019-10-04] MEDS: 1/2 NORMAL SALINE 1,000 ML IV PRN (05:40)
[2019-10-04] MEDS: GABAPENTIN 300 MG CAPSULE PO SCH ×2 (09:48→21:23)
[2019-10-04] MEDS: ENOXAPARIN SODIUM INJ 40 MG/0.4 ML DISP.SYRIN SUBCUT SCH (09:48)
[2019-10-04] MEDS: HYDROXYUREA 500 MG CAPSULE PO SCH ×3 (09:48→18:46)
[2019-10-04] MEDS: FOLIC ACID 1 MG TABLET PO SCH (09:48)
[2019-10-04] MEDS: NORMAL SALINE 1000 ML 1,000 ML IV PRN ×2 (11:58→18:49)
--- NOTE | 2019-10-04 19:37 | PDOC PROGRESS REPORT ---
Subjective Progress Note for:: 10/04/19 Subjective:: Patient admitted for the management of sickle cell bone pain crisis Reason For Visit: SICKLE CELL PAIN CRISIS Physical Exam Vital Signs: Temp Pulse Resp BP Pulse Ox 99.2 F 88 17 113/68 100 10/04/19 14:59 10/04/19 14:59 10/04/19 14:59 10/04/19 14:59 10/04/19 14:59 Intake & Output 10/03/19 10/04/19 10/05/19 06:59 06:59 06:59 Intake Total 2321.2 4774.2 3207 Balance 2321.2 4774.2 3207 Weight 62 kg 62 kg General appearance: PRESENT: no acute distress Eye exam: PRESENT: PERRLA Respiratory exam: PRESENT: clear to auscultation carolyn Cardiovascular exam: PRESENT: +S1, +S2 Neurological exam: PRESENT: alert Results Laboratory Results: 10/03/19 06:00 10/03/19 06:00 Impressions: Chest X-Ray 10/02/19 13:47 IMPRESSION: NO ACUTE RADIOGRAPHIC FINDING IN THE CHEST. 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 Is this a current diagnosis for this admission?: Yes (2) Sickle cell hemolytic anemia Qualifiers: Sickle-cell associated disorders: with unspecified crisis Qualified Code(s): D57.00 - Hb-SS disease with crisis, unspecified; D57.0 - Hb-SS disease with crisis Is this a current diagnosis for this admission?: Yes (3) Secondary hemochromatosis Is this a current diagnosis for this admission?: Yes - Time Time Spent with patient: 25-34 minutes - Plan Summary Plan Summary: Continue present treatment
[2019-10-04] MEDS: THIAMINE HCL 100 MG, FOLIC ACID 1 MG in NORMAL SALINE 250 ML IV SCH (21:23)
[2019-10-05] MEDS: PROMETHAZINE HCL INJ 25 MG/1 ML VIAL IV PRN ×5 (01:21→18:49)
[2019-10-05] MEDS: HYDROMORPHONE HCL INJ/PF 2 MG/ML AMPULE IV PRN ×10 (01:21→22:23)
[2019-10-05] MEDS: DIPHENHYDRAMINE HCL 50 MG/ML VIAL IV PRN ×5 (03:27→22:24)
[2019-10-05] MEDS: 1/2 NORMAL SALINE 1,000 ML IV PRN ×2 (06:13→16:36)
[2019-10-05] MEDS ORDERED: EPOETIN ALFA IJ SCH (10:00)
[2019-10-05] MEDS ORDERED: [UNRECOGNIZED DRUG - OTHER] IJ SCH (10:00)
[2019-10-05] MEDS: GABAPENTIN 300 MG CAPSULE PO SCH ×2 (10:24→22:24)
[2019-10-05] MEDS: HYDROXYUREA 500 MG CAPSULE PO SCH ×3 (10:25→18:49)
[2019-10-05] MEDS: ENOXAPARIN SODIUM INJ 40 MG/0.4 ML DISP.SYRIN SUBCUT SCH (10:25)
[2019-10-05] MEDS: FOLIC ACID 1 MG TABLET PO SCH (10:25)
[2019-10-05] MEDS: [UNRECOGNIZED DRUG - OTHER] IV SCH (10:40)
[2019-10-05] MEDS: DISPOSABLE IV SCH (10:40)
[2019-10-05] MEDS: EPOETIN ALFA EPBX IV SCH (10:40)
--- NOTE | 2019-10-05 20:21 | PDOC PROGRESS REPORT ---
Subjective Progress Note for:: 10/05/19 Subjective:: Patient condition about the same ,she has lower extremity swelling venous doppler ordered Reason For Visit: SICKLE CELL PAIN CRISIS Physical Exam Vital Signs: Temp Pulse Resp BP Pulse Ox 98.5 F 74 20 100/57 L 100 10/05/19 10:50 10/05/19 10:50 10/05/19 10:50 10/05/19 10:50 10/05/19 10:50 Intake & Output 10/04/19 10/05/19 10/06/19 06:59 06:59 06:59 Intake Total 4774.2 4458.2 1600 Balance 4774.2 4458.2 1600 Weight 62 kg 66.4 kg General appearance: PRESENT: no acute distress Eye exam: PRESENT: PERRLA Respiratory exam: PRESENT: clear to auscultation carolyn Cardiovascular exam: PRESENT: +S1, +S2 Neurological exam: PRESENT: alert Results Laboratory Results: 10/03/19 06:00 10/03/19 06:00 10/03/19 03:50 Clean Catch Midstream Urine Culture - Final Escherichia Coli Impressions: Chest X-Ray 10/02/19 13:47 IMPRESSION: NO ACUTE RADIOGRAPHIC FINDING IN THE CHEST. 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 Is this a current diagnosis for this admission?: Yes (2) Sickle cell hemolytic anemia Qualifiers: Sickle-cell associated disorders: with unspecified crisis Qualified Code(s): D57.00 - Hb-SS disease with crisis, unspecified; D57.0 - Hb-SS disease with crisis Is this a current diagnosis for this admission?: Yes (3) Secondary hemochromatosis Is this a current diagnosis for this admission?: Yes - Time Time Spent with patient: 15-24 minutes Level of Care: MEDICAL
--- NOTE | 2019-10-05 20:32 | RADIOLOGY REPORT (SQ) ---
EXAM DESCRIPTION: ULTRASOUND- left lower extremity venous Doppler ultrasound CLINICAL HISTORY: Left lower extremity swelling COMPARISON: August 02 2019 TECHNIQUE: Elizabeth scale, color and Doppler sonographic evaluation of the left lower extremity was performed. FINDINGS: There is no evidence of acute/chronic deep venous thrombosis in the left common femoral through proximal calf veins, including the popliteal, peroneal, posterior tibial veins and left greater saphenous vein/common femoral vein junction. Normal color/phasic flow, augmentation, compressibility and lack of filling defects, is demonstrated in these visualized vessels. IMPRESSION: Negative for deep vein thrombosis in the evaluated left lower extremity deep venous system.
[2019-10-06] MEDS: PROMETHAZINE HCL INJ 25 MG/1 ML VIAL IV PRN ×5 (00:46→21:35)
[2019-10-06] MEDS: HYDROMORPHONE HCL INJ/PF 2 MG/ML AMPULE IV PRN ×9 (00:46→21:34)
[2019-10-06] MEDS: DIPHENHYDRAMINE HCL 50 MG/ML VIAL IV PRN ×4 (04:35→19:05)
[2019-10-06] MEDS: HYDROXYUREA 500 MG CAPSULE PO SCH ×3 (09:36→17:20)
[2019-10-06] MEDS: THIAMINE HCL 100 MG TABLET PO SCH (09:36)
[2019-10-06] MEDS: GABAPENTIN 300 MG CAPSULE PO SCH ×2 (09:36→21:35)
[2019-10-06] MEDS: FOLIC ACID 1 MG TABLET PO SCH (09:36)
[2019-10-06] MEDS: ENOXAPARIN SODIUM INJ 40 MG/0.4 ML DISP.SYRIN SUBCUT SCH (09:37)
[2019-10-06] MEDS: NORMAL SALINE 1000 ML 1,000 ML IV PRN ×2 (09:44→22:10)
--- NOTE | 2019-10-06 14:13 | PDOC PROGRESS REPORT ---
Subjective Progress Note for:: 10/06/19 Subjective:: Patient is currently doing same with a complaining of her knee pain leg pain Patient ultrasound of the leg was negative for DVT Patient admitted for the sickle cell crisis as usual currently on IV pain medications Reason For Visit: SICKLE CELL PAIN CRISIS Physical Exam Vital Signs: Temp Pulse Resp BP Pulse Ox 98.7 F 79 12 94/47 L 98 10/06/19 11:28 10/06/19 11:28 10/06/19 11:28 10/06/19 11:28 10/06/19 11:28 Intake & Output 10/05/19 10/06/19 10/07/19 06:59 06:59 06:59 Intake Total 4458.2 2600 Balance 4458.2 2600 Weight 66.4 kg 66.4 kg General appearance: PRESENT: no acute distress, well-developed, well-nourished Head exam: PRESENT: atraumatic, normocephalic Eye exam: PRESENT: conjunctiva pink, EOMI, PERRLA. ABSENT: scleral icterus Ear exam: PRESENT: normal external ear exam Mouth exam: PRESENT: moist, tongue midline Neck exam: PRESENT: full ROM. ABSENT: carotid bruit, JVD, lymphadenopathy, thyromegaly Respiratory exam: PRESENT: clear to auscultation carolyn Cardiovascular exam: PRESENT: RRR. ABSENT: diastolic murmur, rubs, systolic murmur Pulses: PRESENT: normal dorsalis pedis pul, +2 pedal pulses bilateral Vascular exam: PRESENT: normal capillary refill GI/Abdominal exam: PRESENT: normal bowel sounds, soft. ABSENT: distended, guarding, mass, organolmegaly, rebound, tenderness Rectal exam: PRESENT: deferred Neurological exam: PRESENT: alert, awake, oriented to person, oriented to place, oriented to time, oriented to situation, CN II-XII grossly intact. ABSENT: motor sensory deficit Psychiatric exam: PRESENT: appropriate affect, normal mood. ABSENT: homicidal ideation, suicidal ideation Skin exam: PRESENT: dry, intact, warm. ABSENT: cyanosis, rash Results Laboratory Results: 10/03/19 06:00 10/03/19 06:00 Impressions: Chest X-Ray 10/02/19 13:47 IMPRESSION: NO ACUTE RADIOGRAPHIC FINDING IN THE CHEST. Venous Doppler Study 10/05/19 00:00 IMPRESSION: Negative for deep vein thrombosis in the evaluated left lower extremity deep venous system. Assessment & Plan - Diagnosis (1) Sickle cell pain crisis Is this a current diagnosis for this admission?: Yes Plan: Will continue IV fluids, Oxygen, and will use IV dilaudid. Will also use Folic acid, phenergan and benadryl PRN, as per her usual routine. THis usually helps her pain within a few days. (2) Vaso-occlusive pain due to sickle cell disease Is this a current diagnosis for this admission?: Yes Plan: Continue treatment (3) Anemia Qualifiers: 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 Qualified Code(s): D58.2 - Other hemoglobinopathies Is this a current diagnosis for this admission?: Yes (4) Chronic pain syndrome Is this a current diagnosis for this admission?: Yes - Time Time Spent with patient: 15-24 minutes Level of Care: TELE Medications reviewed and adjusted accordingly: Yes Anticipated discharge: Other Within: Other - Plan Summary Plan Summary: Continues the current medications
[2019-10-07] MEDS: HYDROMORPHONE HCL INJ/PF 2 MG/ML AMPULE IV PRN ×11 (00:07→23:53)
[2019-10-07] MEDS: DIPHENHYDRAMINE HCL 50 MG/ML VIAL IV PRN ×6 (00:08→23:53)
[2019-10-07] MEDS: PROMETHAZINE HCL INJ 25 MG/1 ML VIAL IV PRN ×5 (02:31→21:06)
[2019-10-07] MEDS: 1/2 NORMAL SALINE 1,000 ML IV PRN ×3 (05:15→21:06)
[2019-10-07] MEDS: THIAMINE HCL 100 MG TABLET PO SCH (09:22)
[2019-10-07] MEDS: FOLIC ACID 1 MG TABLET PO SCH (09:22)
[2019-10-07] MEDS: ENOXAPARIN SODIUM INJ 40 MG/0.4 ML DISP.SYRIN SUBCUT SCH (09:22)
[2019-10-07] MEDS: GABAPENTIN 300 MG CAPSULE PO SCH ×2 (09:22→21:06)
[2019-10-07] MEDS: HYDROXYUREA 500 MG CAPSULE PO SCH ×3 (09:31→17:13)
--- NOTE | 2019-10-07 10:23 | PDOC PROGRESS REPORT ---
Subjective Progress Note for:: 10/07/19 Subjective:: Patient is currently doing same with a complaining of her knee pain leg pain Patient ultrasound of the leg was negative for DVT Patient admitted for the sickle cell crisis as usual currently on IV pain medications Reason For Visit: SICKLE CELL PAIN CRISIS Physical Exam Vital Signs: Temp Pulse Resp BP Pulse Ox 98.9 F 78 12 94/54 L 98 10/06/19 23:05 10/06/19 23:05 10/06/19 23:05 10/06/19 23:05 10/06/19 23:05 Intake & Output 10/06/19 10/07/19 10/08/19 06:59 06:59 06:59 Intake Total 2600 1462 Balance 2600 1462 Weight 66.4 kg 66.4 kg General appearance: PRESENT: no acute distress, well-developed, well-nourished Head exam: PRESENT: atraumatic, normocephalic Eye exam: PRESENT: conjunctiva pink, EOMI, PERRLA. ABSENT: scleral icterus Ear exam: PRESENT: normal external ear exam Mouth exam: PRESENT: moist, tongue midline Neck exam: PRESENT: full ROM. ABSENT: carotid bruit, JVD, lymphadenopathy, thyromegaly Respiratory exam: PRESENT: clear to auscultation carolyn Cardiovascular exam: PRESENT: RRR. ABSENT: diastolic murmur, rubs, systolic murmur Pulses: PRESENT: normal dorsalis pedis pul, +2 pedal pulses bilateral Vascular exam: PRESENT: normal capillary refill GI/Abdominal exam: PRESENT: normal bowel sounds, soft. ABSENT: distended, guarding, mass, organolmegaly, rebound, tenderness Rectal exam: PRESENT: deferred Neurological exam: PRESENT: alert, awake, oriented to person, oriented to place, oriented to time, oriented to situation, CN II-XII grossly intact. ABSENT: motor sensory deficit Psychiatric exam: PRESENT: appropriate affect, normal mood. ABSENT: homicidal ideation, suicidal ideation Skin exam: PRESENT: dry, intact, warm. ABSENT: cyanosis, rash Results Laboratory Results: 10/03/19 06:00 10/03/19 06:00 Impressions: Chest X-Ray 10/02/19 13:47 IMPRESSION: NO ACUTE RADIOGRAPHIC FINDING IN THE CHEST. Venous Doppler Study 10/05/19 00:00 IMPRESSION: Negative for deep vein thrombosis in the evaluated left lower extremity deep venous system. Assessment & Plan - Diagnosis (1) Sickle cell pain crisis Is this a current diagnosis for this admission?: Yes (2) Vaso-occlusive pain due to sickle cell disease Is this a current diagnosis for this admission?: Yes (3) Anemia Qualifiers: 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 Qualified Code(s): D58.2 - Other hemoglobinopathies Is this a current diagnosis for this admission?: Yes (4) Chronic pain syndrome Is this a current diagnosis for this admission?: Yes - Time Time Spent with patient: 15-24 minutes Level of Care: TELE Medications reviewed and adjusted accordingly: Yes Anticipated discharge: Other Within: Other - Plan Summary Plan Summary: Continues to current medications
[2019-10-08] MEDS: HYDROMORPHONE HCL INJ/PF 2 MG/ML AMPULE IV PRN ×9 (01:53→22:49)
[2019-10-08] MEDS: PROMETHAZINE HCL INJ 25 MG/1 ML VIAL IV PRN ×3 (01:55→22:49)
[2019-10-08] MEDS: 1/2 NORMAL SALINE 1,000 ML IV PRN ×3 (04:33→16:49)
[2019-10-08] MEDS: DIPHENHYDRAMINE HCL 50 MG/ML VIAL IV PRN ×4 (04:33→19:38)
[2019-10-08] MEDS: GABAPENTIN 300 MG CAPSULE PO SCH ×2 (08:59→22:49)
[2019-10-08] MEDS: FOLIC ACID 1 MG TABLET PO SCH (08:59)
[2019-10-08] MEDS: ENOXAPARIN SODIUM INJ 40 MG/0.4 ML DISP.SYRIN SUBCUT SCH (08:59)
[2019-10-08] MEDS: HYDROXYUREA 500 MG CAPSULE PO SCH ×3 (08:59→17:01)
[2019-10-08] MEDS: THIAMINE HCL 100 MG TABLET PO SCH (08:59)
[2019-10-08] MEDS: POLYETHYLENE GLYCOL 3350 POWDER 17 GM/1 PACKET PO SCH (09:02)
[2019-10-08] MEDS: ACETAMINOPHEN 325 MG TABLET PO PRN ×2 (16:27→22:49)
[2019-10-08] MEDS: LEVOFLOXACIN 750 MG/D5W RTU 750 MG/150 ML RTUPB IV SCH (19:37)
--- NOTE | 2019-10-08 19:40 | PDOC PROGRESS REPORT ---
Subjective Progress Note for:: 10/08/19 Subjective:: Patient seen at the bedside, she is febrile, with temperature 101 ? Source of the fever is not known, (septic work-upchest x-ray, blood culture, urine culture, start empirically IV antibiotic) Reason For Visit: SICKLE CELL PAIN CRISIS Physical Exam Vital Signs: Temp Pulse Resp BP Pulse Ox 100.1 F 88 20 108/57 L 93 10/08/19 18:13 10/08/19 15:00 10/08/19 15:00 10/08/19 15:00 10/08/19 15:00 Intake & Output 10/07/19 10/08/19 10/09/19 06:59 06:59 06:59 Intake Total 1462 4610 3731 Output Total 2600 3000 Balance 1462 2010 731 Weight 66.4 kg 65.3 kg General appearance: PRESENT: no acute distress Eye exam: PRESENT: PERRLA Respiratory exam: PRESENT: clear to auscultation carolyn Cardiovascular exam: PRESENT: +S1, +S2 GI/Abdominal exam: PRESENT: soft Neurological exam: PRESENT: alert Results Laboratory Results: 10/03/19 06:00 10/03/19 06:00 10/02/19 21:22 Blood Blood Culture - Final NO GROWTH IN 5 DAYS 10/02/19 21:15 Blood Blood Culture - Final NO GROWTH IN 5 DAYS Impressions: Chest X-Ray 10/02/19 13:47 IMPRESSION: NO ACUTE RADIOGRAPHIC FINDING IN THE CHEST. Venous Doppler Study 10/05/19 00:00 IMPRESSION: Negative for deep vein thrombosis in the evaluated left lower extremity deep venous system. 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 Is this a current diagnosis for this admission?: Yes (2) Sickle cell hemolytic anemia Qualifiers: Sickle-cell associated disorders: with unspecified crisis Qualified Code(s): D57.00 - Hb-SS disease with crisis, unspecified; D57.0 - Hb-SS disease with crisis Is this a current diagnosis for this admission?: Yes (3) Secondary hemochromatosis Is this a current diagnosis for this admission?: Yes (4) Fever Qualifiers: Fever type: unspecified Qualified Code(s): R50.9 - Fever, unspecified Is this a current diagnosis for this admission?: Yes Plan: The apparent cause of the fever is not known, obtain blood culture, urine culture, chest x-ray start IV Levaquin empirically (5) Opioid dependence Qualifiers: Substance use status: with unspecified opioid-induced disorder Qualified Code(s): F11.29 - Opioid dependence with unspecified opioid-induced disorder Is this a current diagnosis for this admission?: Yes Plan: Reduce frequency of opioid to every 3 hours - Time Time Spent with patient: 15-24 minutes Level of Care: MEDICAL Medications reviewed and adjusted accordingly: No
[2019-10-08 20:10] LABS: HEMATOCRIT 17.5 % (36.0-47.0); MEAN CORPUSCULAR HEMOGLOBIN 45.3 pg (27.0-33.4); MEAN CORPUSCULAR HGB CONC 36.3 g/dL (32.0-36.0); MEAN CORPUSCULAR VOLUME 125 fl (80-97); PLATELET COUNT 299 10^3/uL (150-450); RED BLOOD COUNT 1.41 10^6/uL (3.72-5.28); RED CELL DISTRIBUTION WIDTH 15.7 % (11.5-14.0); WHITE BLOOD COUNT 6.4 10^3/uL (4.0-10.5)
[2019-10-08 20:22] LABS: ALBUMIN 3.9 g/dL (3.5-5.0); ALKALINE PHOSPHATASE 104 U/L (38-126); ANION GAP 7 (5-19); ASPARTATE AMINO TRANSFERASE 45 U/L (14-36); BILIRUBIN,DIRECT 0.2 mg/dL (0.0-0.4); BILIRUBIN,TOTAL 4.2 mg/dL (0.2-1.3); BLOOD UREA NITROGEN 6 mg/dL (7-20); CALCIUM 8.5 mg/dL (8.4-10.2); CARBON DIOXIDE 25 mmol/L (22-30); CHLORIDE 103 mmol/L (98-107); GLUCOSE 109 mg/dL (75-110); POTASSIUM 3.8 mmol/L (3.6-5.0); TOTAL PROTEIN 6.8 g/dL (6.3-8.2)
[2019-10-08 20:23] LABS: ABSOLUTE LYMPHOCYTES# (MANUAL) 2.2 10^3/uL (0.5-4.7); ABSOLUTE MONOCYTES # (MANUAL) 0.1 10^3/uL (0.1-1.4); BASOPHILS % (MANUAL) 0 % (0-2); EOSINOPHILS % (MANUAL) 0 % (0-6); LYMPHOCYTES % (MANUAL) 35 % (13-45); MONOCYTES % (MANUAL) 2 % (3-13); NUCLEATED RED BLOOD CELLS 45 /100 WBC (0); SEGMENTED NEUTROPHILS % (MAN) 63 % (42-78); TOTAL CELLS COUNTED 100
[2019-10-08 20:28] LABS: ANISOCYTOSIS SLIGHT; OVALOCYTES SLIGHT; PLATELET COMMENT ADEQUATE; POIKILOCYTOSIS SLIGHT; POLYCHROMASIA SLIGHT; SCHISTOCYTES SLIGHT; SICKLE RED CELLS SLIGHT; TARGET CELLS SLIGHT
[2019-10-08 20:31] LABS: HOWELL-JOLLY BODIES PRESENT
[2019-10-08 20:36] LABS: HEMOGLOBIN 6.4 g/dL (12.0-15.5)
--- NOTE | 2019-10-08 23:00 | RADIOLOGY REPORT (SQ) ---
CLINICAL INDICATION: Fever. TECHNIQUE: A single portable AP view was obtained of the chest at 2026 hours. COMPARISON: October 02, 2019. FINDINGS: The cardiomediastinal silhouette prominent but stable. Power injectable port catheter remains in good position. The lungs are grossly clear. No evidence of effusion or pneumothorax. Mild chronic parenchymal lung change. IMPRESSION: No evidence of active intrathoracic disease. Chronic change, no adverse change
[2019-10-09] MEDS: HYDROMORPHONE HCL INJ/PF 2 MG/ML AMPULE IV PRN ×7 (03:25→23:26)
[2019-10-09] MEDS: DIPHENHYDRAMINE HCL 50 MG/ML VIAL IV PRN ×4 (03:25→20:20)
[2019-10-09] MEDS: PROMETHAZINE HCL INJ 25 MG/1 ML VIAL IV PRN ×3 (06:21→23:26)
[2019-10-09] MEDS: RINGERS SOLUTION,LACTATED 1,000 ML IV PRN ×2 (06:22→16:11)
[2019-10-09 06:59] LABS: HEMATOCRIT 16.7 % (36.0-47.0); MEAN CORPUSCULAR HEMOGLOBIN 45.7 pg (27.0-33.4); MEAN CORPUSCULAR HGB CONC 36.4 g/dL (32.0-36.0); MEAN CORPUSCULAR VOLUME 126 fl (80-97); PLATELET COUNT 257 10^3/uL (150-450); RED BLOOD COUNT 1.33 10^6/uL (3.72-5.28); RED CELL DISTRIBUTION WIDTH 15.7 % (11.5-14.0)
[2019-10-09 07:25] LABS: HEMOGLOBIN 6.1 g/dL (12.0-15.5)
[2019-10-09 07:29] LABS: ABSOLUTE LYMPHOCYTES# (MANUAL) 1.6 10^3/uL (0.5-4.7); ABSOLUTE MONOCYTES # (MANUAL) 0.1 10^3/uL (0.1-1.4); BASOPHILS % (MANUAL) 1 % (0-2); EOSINOPHILS % (MANUAL) 0 % (0-6); LYMPHOCYTES % (MANUAL) 25 % (13-45); MONOCYTES % (MANUAL) 2 % (3-13); NUCLEATED RED BLOOD CELLS 57 /100 WBC (0); SEGMENTED NEUTROPHILS % (MAN) 71 % (42-78); TOTAL CELLS COUNTED 100
[2019-10-09 07:32] LABS: ANISOCYTOSIS 1+; HOWELL-JOLLY BODIES PRESENT; OVALOCYTES SLIGHT; PAPPENHEIMER BODIES PRESENT; POIKILOCYTOSIS 1+; POLYCHROMASIA 2+; SCHISTOCYTES SLIGHT; SICKLE RED CELLS SLIGHT; TARGET CELLS SLIGHT; TEAR DROP CELLS SLIGHT
[2019-10-09 07:35] LABS: PLATELET COMMENT ADEQUATE; WHITE BLOOD COUNT 5.9 10^3/uL (4.0-10.5)
--- NOTE | 2019-10-09 08:34 | Progress Note ---
Provider Note Provider Note: I was not able to reach the patient by telephone. Due to COVID-19 restrictions, I have not seen patient directly. However, I spoke with Susan, her nurse. She continues the Dilaudid and Levaquin for her UTI. She is weak, but otherwise, seems to be doing well. She has not been walking in the hallway. Her temp is back down. She will call me with concerns. Will continue to try to avoid blood transfusions and use EPO weekly.
[2019-10-09] MEDS: FOLIC ACID 1 MG TABLET PO SCH (09:38)
[2019-10-09] MEDS: GABAPENTIN 300 MG CAPSULE PO SCH ×2 (09:38→23:23)
[2019-10-09] MEDS: POLYETHYLENE GLYCOL 3350 POWDER 17 GM/1 PACKET PO SCH (09:38)
[2019-10-09] MEDS: HYDROXYUREA 500 MG CAPSULE PO SCH ×3 (09:38→17:20)
[2019-10-09] MEDS: THIAMINE HCL 100 MG TABLET PO SCH (09:38)
[2019-10-09] MEDS: ENOXAPARIN SODIUM INJ 40 MG/0.4 ML DISP.SYRIN SUBCUT SCH (09:39)
[2019-10-09] MEDS: LEVOFLOXACIN 750 MG/D5W RTU 750 MG/150 ML RTUPB IV SCH (17:20)
--- NOTE | 2019-10-09 18:21 | PDOC PROGRESS REPORT ---
Subjective Progress Note for:: 10/09/19 Subjective:: Patient seen by the bedside, she complains of back pain, she has E. coli UTI, no more fevers, she is still complaining of generalized body pains. Reason For Visit: SICKLE CELL PAIN CRISIS Physical Exam Vital Signs: Temp Pulse Resp BP Pulse Ox 99.3 F 80 18 91/51 L 91 L 10/09/19 15:01 10/09/19 15:01 10/09/19 15:01 10/09/19 15:01 10/09/19 15:01 Intake & Output 10/08/19 10/09/19 10/10/19 06:59 06:59 06:59 Intake Total 4610 5281 982 Output Total 2600 3000 Balance 2009 228 982 Weight 65.3 kg 63.1 kg General appearance: PRESENT: no acute distress Eye exam: PRESENT: PERRLA Respiratory exam: PRESENT: clear to auscultation carolyn Cardiovascular exam: PRESENT: +S1, +S2 GI/Abdominal exam: PRESENT: soft Neurological exam: PRESENT: alert Results Laboratory Results: 10/09/19 06:20 10/08/19 19:50 10/08/19 10/08/19 10/09/19 19:50 19:50 06:20 WBC 6.4 5.9 RBC 1.41 L 1.33 L Hgb 6.4 L 6.1 L Hct 17.5 L 16.7 L MCV 125 H 126 H MCH 45.3 H 45.7 H MCHC 36.3 H 36.4 H RDW 15.7 H 15.7 H Plt Count 299 257 Seg Neutrophils % Not Reportable Not Reportable Sodium 134.6 L Potassium 3.8 Chloride 103 Carbon Dioxide 25 Anion Gap 7 BUN 6 L Creatinine 0.51 L Est GFR ( Amer) > 60 Glucose 109 Calcium 8.5 Total Bilirubin 4.2 H AST 45 H Alkaline Phosphatase 104 Total Protein 6.8 Albumin 3.9 10/07/19 19:40 Clean Catch Midstream Urine Culture - Final Escherichia Coli Impressions: Venous Doppler Study 10/05/19 00:00 IMPRESSION: Negative for deep vein thrombosis in the evaluated left lower extremity deep venous system. Chest X-Ray 10/08/19 00:00 IMPRESSION: No evidence of active intrathoracic disease. Chronic change, no adverse change 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 Is this a current diagnosis for this admission?: Yes (2) Sickle cell hemolytic anemia Qualifiers: Sickle-cell associated disorders: with unspecified crisis Qualified Code(s): D57.00 - Hb-SS disease with crisis, unspecified; D57.0 - Hb-SS disease with crisis Is this a current diagnosis for this admission?: Yes (3) Secondary hemochromatosis Is this a current diagnosis for this admission?: Yes (4) Opioid dependence Qualifiers: Substance use status: with unspecified opioid-induced disorder Qualified Code(s): F11.29 - Opioid dependence with unspecified opioid-induced disorder Is this a current diagnosis for this admission?: Yes (5) E. coli UTI (urinary tract infection) Is this a current diagnosis for this admission?: Yes Plan: Continue IV antibiotic - Time Time Spent with patient: 25-34 minutes Level of Care: MEDICAL
[2019-10-10] MEDS: HYDROMORPHONE HCL INJ/PF 2 MG/ML AMPULE IV PRN ×7 (02:30→21:24)
[2019-10-10] MEDS: RINGERS SOLUTION,LACTATED 1,000 ML IV PRN ×2 (02:30→15:11)
[2019-10-10] MEDS: DIPHENHYDRAMINE HCL 50 MG/ML VIAL IV PRN ×4 (02:30→21:24)
[2019-10-10] MEDS: PROMETHAZINE HCL INJ 25 MG/1 ML VIAL IV PRN ×3 (05:24→18:27)
[2019-10-10] MEDS: POLYETHYLENE GLYCOL 3350 POWDER 17 GM/1 PACKET PO SCH (09:05)
[2019-10-10] MEDS: FOLIC ACID 1 MG TABLET PO SCH (09:06)
[2019-10-10] MEDS: GABAPENTIN 300 MG CAPSULE PO SCH ×2 (09:06→21:25)
[2019-10-10] MEDS: ENOXAPARIN SODIUM INJ 40 MG/0.4 ML DISP.SYRIN SUBCUT SCH (09:06)
[2019-10-10] MEDS: THIAMINE HCL 100 MG TABLET PO SCH (09:06)
[2019-10-10] MEDS: ERGOCALCIFEROL (VITAMIN D2) 50000 UNIT (1.25 MG) CAPSULE PO SCH (09:06)
[2019-10-10] MEDS: HYDROXYUREA 500 MG CAPSULE PO SCH ×3 (09:06→17:18)
--- NOTE | 2019-10-10 13:49 | PDOC PROGRESS REPORT ---
Subjective Progress Note for:: 10/10/19 Subjective:: She has sickle cell disease admitted for bone pain crisis, E. coli UTI Reason For Visit: SICKLE CELL PAIN CRISIS Physical Exam Vital Signs: Temp Pulse Resp BP Pulse Ox 99.0 F 68 20 93/52 L 98 10/10/19 07:39 10/10/19 07:39 10/10/19 07:39 10/10/19 07:39 10/10/19 07:39 Intake & Output 10/09/19 10/10/19 10/11/19 06:59 06:59 06:59 Intake Total 5281 2132 600 Output Total 3000 2800 1100 Balance 6470 -888 -500 Weight 63.1 kg 63.1 kg General appearance: PRESENT: no acute distress Eye exam: PRESENT: PERRLA Respiratory exam: PRESENT: clear to auscultation carolyn Cardiovascular exam: PRESENT: +S1, +S2 Neurological exam: PRESENT: alert Results Laboratory Results: 10/09/19 06:20 10/08/19 19:50 Impressions: Venous Doppler Study 10/05/19 00:00 IMPRESSION: Negative for deep vein thrombosis in the evaluated left lower extremity deep venous system. Chest X-Ray 10/08/19 00:00 IMPRESSION: No evidence of active intrathoracic disease. Chronic change, no adverse change 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 Is this a current diagnosis for this admission?: Yes Plan: Continue hydration, pain medication (2) Sickle cell hemolytic anemia Qualifiers: Sickle-cell associated disorders: with unspecified crisis Qualified Code(s): D57.00 - Hb-SS disease with crisis, unspecified; D57.0 - Hb-SS disease with crisis Is this a current diagnosis for this admission?: Yes (3) Secondary hemochromatosis Is this a current diagnosis for this admission?: Yes (4) Opioid dependence Qualifiers: Substance use status: with unspecified opioid-induced disorder Qualified Code(s): F11.29 - Opioid dependence with unspecified opioid-induced disorder Is this a current diagnosis for this admission?: Yes (5) E. coli UTI (urinary tract infection) Is this a current diagnosis for this admission?: Yes Plan: Continue IV antibiotic - Time Time Spent with patient: 25-34 minutes Level of Care: MEDICAL
[2019-10-10] MEDS: LEVOFLOXACIN 750 MG/D5W RTU 750 MG/150 ML RTUPB IV SCH (17:18)
[2019-10-11] MEDS: PROMETHAZINE HCL INJ 25 MG/1 ML VIAL IV PRN ×4 (00:37→18:58)
[2019-10-11] MEDS: HYDROMORPHONE HCL INJ/PF 2 MG/ML AMPULE IV PRN ×8 (00:37→21:51)
[2019-10-11] MEDS: RINGERS SOLUTION,LACTATED 1,000 ML IV PRN ×2 (00:38→17:10)
[2019-10-11] MEDS: DIPHENHYDRAMINE HCL 50 MG/ML VIAL IV PRN ×4 (03:36→21:51)
--- NOTE | 2019-10-11 08:19 | Progress Note ---
Provider Note Provider Note: Due to COVID-19 restrictions, patient was not examined. I did speak with her at length by telephone. She reports continued pain and weakness in her legs, making very difficult to walk. She would prefer the pain medication every 2 hours, but has been receiving then every 3 hours. She has a heating pad. No other complaints voiced today. HGB a few days ago was 6.1. Vital signs have been stable. No indication for blood transfusion at this time. I have encouraged her to walk in hallway as much as possible. Continue oxygen and fluids.
[2019-10-11] MEDS: POLYETHYLENE GLYCOL 3350 POWDER 17 GM/1 PACKET PO SCH (10:07)
[2019-10-11] MEDS: THIAMINE HCL 100 MG TABLET PO SCH (10:07)
[2019-10-11] MEDS: FOLIC ACID 1 MG TABLET PO SCH (10:07)
[2019-10-11] MEDS: GABAPENTIN 300 MG CAPSULE PO SCH ×2 (10:07→21:51)
[2019-10-11] MEDS: ENOXAPARIN SODIUM INJ 40 MG/0.4 ML DISP.SYRIN SUBCUT SCH (10:08)
[2019-10-11] MEDS: HYDROXYUREA 500 MG CAPSULE PO SCH ×3 (10:10→17:09)
[2019-10-11] MEDS: LEVOFLOXACIN 750 MG/D5W RTU 750 MG/150 ML RTUPB IV SCH (17:10)
--- NOTE | 2019-10-11 20:19 | PDOC PROGRESS REPORT ---
Subjective Progress Note for:: 10/11/19 Subjective:: Patient is alert admitted for the management of sickle cell bone pain crisis Reason For Visit: SICKLE CELL PAIN CRISIS Physical Exam Vital Signs: Temp Pulse Resp BP Pulse Ox 99.1 F 84 16 101/60 94 10/11/19 15:23 10/11/19 15:23 10/11/19 15:23 10/11/19 15:23 10/11/19 15:23 Intake & Output 10/10/19 10/11/19 10/12/19 06:59 06:59 06:59 Intake Total 2132 3295 1750 Output Total 2800 2000 Balance -668 1295 1750 Weight 63.1 kg 63.1 kg General appearance: PRESENT: no acute distress Eye exam: PRESENT: PERRLA Respiratory exam: PRESENT: clear to auscultation carolyn Cardiovascular exam: PRESENT: +S1, +S2 GI/Abdominal exam: PRESENT: soft Results Laboratory Results: 10/09/19 06:20 10/08/19 19:50 Impressions: Venous Doppler Study 10/05/19 00:00 IMPRESSION: Negative for deep vein thrombosis in the evaluated left lower extremity deep venous system. Chest X-Ray 10/08/19 00:00 IMPRESSION: No evidence of active intrathoracic disease. Chronic change, no adverse change 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 Is this a current diagnosis for this admission?: Yes Plan: Continue hydration, pain medication (2) Sickle cell hemolytic anemia Qualifiers: Sickle-cell associated disorders: with unspecified crisis Qualified Code(s): D57.00 - Hb-SS disease with crisis, unspecified; D57.0 - Hb-SS disease with crisis Is this a current diagnosis for this admission?: Yes (3) Secondary hemochromatosis Is this a current diagnosis for this admission?: Yes (4) Opioid dependence Qualifiers: Substance use status: with unspecified opioid-induced disorder Qualified Code(s): F11.29 - Opioid dependence with unspecified opioid-induced disorder Is this a current diagnosis for this admission?: Yes (5) E. coli UTI (urinary tract infection) Is this a current diagnosis for this admission?: Yes Plan: Continue IV antibiotic - Time Time Spent with patient: 15-24 minutes Level of Care: MEDICAL
[2019-10-12] MEDS: PROMETHAZINE HCL INJ 25 MG/1 ML VIAL IV PRN ×4 (00:58→20:01)
[2019-10-12] MEDS: HYDROMORPHONE HCL INJ/PF 2 MG/ML AMPULE IV PRN ×8 (00:58→23:16)
[2019-10-12] MEDS: RINGERS SOLUTION,LACTATED 1,000 ML IV PRN (01:01)
[2019-10-12] MEDS: DIPHENHYDRAMINE HCL 50 MG/ML VIAL IV PRN ×4 (03:42→23:16)
[2019-10-12 08:13] LABS: HEMATOCRIT 16.6 % (36.0-47.0); MEAN CORPUSCULAR VOLUME 127 fl (80-97); RED BLOOD COUNT 1.31 10^6/uL (3.72-5.28); WHITE BLOOD COUNT 5.1 10^3/uL (4.0-10.5)
[2019-10-12 08:14] LABS: MEAN CORPUSCULAR HEMOGLOBIN 46.1 pg (27.0-33.4); MEAN CORPUSCULAR HGB CONC 36.3 g/dL (32.0-36.0); PLATELET COUNT 207 10^3/uL (150-450); RED CELL DISTRIBUTION WIDTH 17.5 % (11.5-14.0)
[2019-10-12 08:18] LABS: ABSOLUTE MONOCYTES # (MANUAL) 0.7 10^3/uL (0.1-1.4); ANISOCYTOSIS 1+; BASOPHILS % (MANUAL) 1 % (0-2); BURR CELLS SLIGHT; EOSINOPHILS % (MANUAL) 10 % (0-6); LYMPHOCYTES % (MANUAL) 39 % (13-45); MONOCYTES % (MANUAL) 13 % (3-13); NUCLEATED RED BLOOD CELLS 73 /100 WBC (0); OVALOCYTES 1+; POIKILOCYTOSIS 1+; POLYCHROMASIA 1+; SCHISTOCYTES SLIGHT; SEGMENTED NEUTROPHILS % (MAN) 36 % (42-78); TARGET CELLS 1+; TEAR DROP CELLS SLIGHT; TOTAL CELLS COUNTED 100
[2019-10-12 08:19] LABS: PLATELET COMMENT ADEQUATE
[2019-10-12] MEDS: ENOXAPARIN SODIUM INJ 40 MG/0.4 ML DISP.SYRIN SUBCUT SCH (09:25)
[2019-10-12] MEDS: POLYETHYLENE GLYCOL 3350 POWDER 17 GM/1 PACKET PO SCH (09:25)
[2019-10-12] MEDS: FOLIC ACID 1 MG TABLET PO SCH (09:26)
[2019-10-12] MEDS: THIAMINE HCL 100 MG TABLET PO SCH (09:26)
[2019-10-12] MEDS: GABAPENTIN 300 MG CAPSULE PO SCH ×2 (09:26→21:07)
[2019-10-12] MEDS: HYDROXYUREA 500 MG CAPSULE PO SCH ×3 (09:26→17:37)
[2019-10-12] MEDS: EPOETIN ALFA EPBX IV SCH (10:06)
[2019-10-12] MEDS: DISPOSABLE IV SCH (10:06)
[2019-10-12] MEDS: [UNRECOGNIZED DRUG - OTHER] IV SCH (10:06)
[2019-10-12] MEDS: LEVOFLOXACIN 750 MG/D5W RTU 750 MG/150 ML RTUPB IV SCH (17:37)
--- NOTE | 2019-10-12 19:54 | PDOC PROGRESS REPORT ---
Subjective Progress Note for:: 10/12/19 Subjective:: Patient seen by the bedside, she complain of generalized weakness, I explained to her that she needs to get out of bed, she lays in bed on Dilaudid every 3 hours,that will make her very weak Reason For Visit: SICKLE CELL PAIN CRISIS Physical Exam Vital Signs: Temp Pulse Resp BP Pulse Ox 99.6 F 102 H 17 98/57 L 100 10/12/19 16:07 10/12/19 16:07 10/12/19 16:07 10/12/19 16:07 10/12/19 16:07 Intake & Output 10/11/19 10/12/19 10/13/19 06:59 06:59 06:59 Intake Total 3295 2535 2460 Output Total 1999 Balance 1295 2535 2460 Weight 63.1 kg 63.1 kg General appearance: PRESENT: no acute distress Eye exam: PRESENT: conjunctiva pale Respiratory exam: PRESENT: clear to auscultation carolyn Cardiovascular exam: PRESENT: +S1, +S2 GI/Abdominal exam: PRESENT: soft Neurological exam: PRESENT: alert Results Laboratory Results: 10/12/19 06:07 10/08/19 19:50 10/12/19 10/12/19 04:59 06:07 WBC Cancelled 5.1 RBC Cancelled 1.31 L Hgb Cancelled 6.0 L Hct Cancelled 16.6 L MCV Cancelled 127 H MCH Cancelled 46.1 H MCHC Cancelled 36.3 H RDW Cancelled 17.5 H Plt Count Cancelled 207 Seg Neutrophils % Cancelled Not Reportable 10/10/19 00:24 Clean Catch Midstream Urine Culture - Final Staph Coagulase Negative Impressions: Venous Doppler Study 10/05/19 00:00 IMPRESSION: Negative for deep vein thrombosis in the evaluated left lower extremity deep venous system. Chest X-Ray 10/08/19 00:00 IMPRESSION: No evidence of active intrathoracic disease. Chronic change, no adverse change 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 Is this a current diagnosis for this admission?: Yes (2) Sickle cell hemolytic anemia Qualifiers: Sickle-cell associated disorders: with unspecified crisis Qualified Code(s): D57.00 - Hb-SS disease with crisis, unspecified; D57.0 - Hb-SS disease with crisis Is this a current diagnosis for this admission?: Yes (3) Secondary hemochromatosis Is this a current diagnosis for this admission?: Yes (4) Opioid dependence Qualifiers: Substance use status: with unspecified opioid-induced disorder Qualified Code(s): F11.29 - Opioid dependence with unspecified opioid-induced disorder Is this a current diagnosis for this admission?: Yes (5) E. coli UTI (urinary tract infection) Is this a current diagnosis for this admission?: Yes Plan: Continue IV antibiotic - Time Time Spent with patient: 25-34 minutes Level of Care: MEDICAL
[2019-10-12] MEDS: 1/2 NORMAL SALINE 1,000 ML IV PRN (20:05)
[2019-10-13] MEDS: PROMETHAZINE HCL INJ 25 MG/1 ML VIAL IV PRN ×4 (02:29→18:47)
[2019-10-13] MEDS: 1/2 NORMAL SALINE 1,000 ML IV PRN ×3 (02:30→19:41)
[2019-10-13] MEDS: HYDROMORPHONE HCL INJ/PF 2 MG/ML AMPULE IV PRN ×7 (02:30→21:47)
[2019-10-13] MEDS: DIPHENHYDRAMINE HCL 50 MG/ML VIAL IV PRN ×3 (05:35→18:47)
[2019-10-13] MEDS: THIAMINE HCL 100 MG TABLET PO SCH (09:58)
[2019-10-13] MEDS: POLYETHYLENE GLYCOL 3350 POWDER 17 GM/1 PACKET PO SCH (09:58)
[2019-10-13] MEDS: ENOXAPARIN SODIUM INJ 40 MG/0.4 ML DISP.SYRIN SUBCUT SCH (09:58)
[2019-10-13] MEDS: GABAPENTIN 300 MG CAPSULE PO SCH ×2 (09:58→21:47)
[2019-10-13] MEDS: FOLIC ACID 1 MG TABLET PO SCH (09:58)
[2019-10-13] MEDS: HYDROXYUREA 500 MG CAPSULE PO SCH ×3 (09:58→17:06)
--- NOTE | 2019-10-13 15:14 | RADIOLOGY REPORT (SQ) ---
EXAM DESCRIPTION: KNEE LEFT 2 VIEWS IMAGES COMPLETED DATE/TIME: 10/13/2019 2:57 pm REASON FOR STUDY: Left knee joint pain and swelling COMPARISON: 02/19/2019. NUMBER OF VIEWS: Two views. TECHNIQUE: AP and lateral radiographic images acquired of the left knee. LIMITATIONS: None. FINDINGS: MINERALIZATION: Normal. BONES: No acute fracture or dislocation. No worrisome bone lesions. Mild joint space narrowing with s mall osteophytes. JOINT: No effusion. No chondrocalcinosis. OTHER: No other significant finding. IMPRESSION: MILD DEGENERATIVE CHANGES. NO ACUTE FINDINGS. TECHNICAL DOCUMENTATION: JOB ID: [id number] 2010 [employer]- All Rights Reserved Reading location - IP/workstation name: [email or web address]
--- NOTE | 2019-10-13 16:29 | PDOC PROGRESS REPORT ---
Subjective Progress Note for:: 10/13/19 Subjective:: Patient reported worsening left knee swelling and pain. Nursing staff reported that she has been walking more than usual on the floor so far today. She denied any recent trauma or fall. No chest pain or difficulty with breathing. No fever or chills. Reason For Visit: SICKLE CELL PAIN CRISIS Physical Exam Vital Signs: Temp Pulse Resp BP Pulse Ox 99.1 F 86 17 97/56 L 96 10/13/19 11:21 10/13/19 11:21 10/13/19 11:21 10/13/19 11:21 10/13/19 11:21 Intake & Output 10/12/19 10/13/19 10/14/19 06:59 06:59 06:59 Intake Total 2535 3423 1000 Balance 2535 3423 1000 Weight 63.1 kg 64.9 kg General appearance: PRESENT: mild distress - from reported chronic pain Head exam: PRESENT: atraumatic, normocephalic Eye exam: PRESENT: conjunctiva pink. ABSENT: scleral icterus Ear exam: PRESENT: normal external ear exam Mouth exam: PRESENT: moist Respiratory exam: PRESENT: clear to auscultation carolyn Cardiovascular exam: PRESENT: RRR. ABSENT: diastolic murmur, rubs, systolic murmur Vascular exam: ABSENT: pallor GI/Abdominal exam: PRESENT: normal bowel sounds. ABSENT: tenderness Extremities exam: PRESENT: joint swelling - left knee suprapatella region. ABSENT: pedal edema Musculoskeletal exam: PRESENT: ambulatory Neurological exam: PRESENT: alert, awake, oriented to person, oriented to place, oriented to time, oriented to situation, CN II-XII grossly intact. ABSENT: motor sensory deficit Psychiatric exam: PRESENT: appropriate affect, normal mood. ABSENT: homicidal ideation, suicidal ideation Skin exam: PRESENT: dry, warm Results Laboratory Results: 10/12/19 06:07 10/08/19 19:50 Impressions: Venous Doppler Study 10/05/19 00:00 IMPRESSION: Negative for deep vein thrombosis in the evaluated left lower extremity deep venous system. Chest X-Ray 10/08/19 00:00 IMPRESSION: No evidence of active intrathoracic disease. Chronic change, no adverse change Assessment & Plan - Diagnosis (1) Sickle cell pain crisis Is this a current diagnosis for this admission?: Yes Plan: Continue with current pain management. (2) Vaso-occlusive pain due to sickle cell disease Is this a current diagnosis for this admission?: Yes Plan: Continue with current pain management. (3) E. coli UTI (urinary tract infection) Is this a current diagnosis for this admission?: Yes Plan: Continue current IV Levofloxacin coverage. (4) Opioid dependence Qualifiers: Substance use status: with unspecified opioid-induced disorder Qualified Code(s): F11.29 - Opioid dependence with unspecified opioid-induced disorder Is this a current diagnosis for this admission?: Yes Plan: Continue with current pain management. - Time Time Spent with patient: 25-34 minutes Level of Care: MEDICAL Medications reviewed and adjusted accordingly: Yes Anticipated discharge: Home - Inpatient Certification Based on my medical assessment, after consideration of the patient's comorbidities, presenting symptoms, or acuity I expect that the services needed warrant INPATIENT care.: Yes I certify that my determination is in accordance with my understanding of Medicare's requirements for reasonable and necessary INPATIENT services [42 CFR 412.3e].: Yes Medical Necessity: Significant Comorbidiites Make Outpatient Treatment Too Risky, Need Close Monitoring Due to Risk of Patient Decompensation, Need For IV Fluids, Need for IV Antibiotics, Risk of Complication if Not Cared For in Hospital, Risk of Diagnosis Which Will Require Inpatient Eval/Care/Monitoring Post Hospital Care: D/C [employer] Documentation - Plan Summary Plan Summary: Continue with current pain management.
[2019-10-13] MEDS: LEVOFLOXACIN 750 MG/D5W RTU 750 MG/150 ML RTUPB IV SCH (17:06)
[2019-10-14] MEDS: HYDROMORPHONE HCL INJ/PF 2 MG/ML AMPULE IV PRN ×8 (00:43→22:01)
[2019-10-14] MEDS: DIPHENHYDRAMINE HCL 50 MG/ML VIAL IV PRN ×4 (00:43→18:43)
[2019-10-14] MEDS: 1/2 NORMAL SALINE 1,000 ML IV PRN ×2 (02:26→17:17)
[2019-10-14] MEDS: PROMETHAZINE HCL INJ 25 MG/1 ML VIAL IV PRN ×4 (03:43→22:01)
[2019-10-14] MEDS: GABAPENTIN 300 MG CAPSULE PO SCH ×2 (09:49→22:01)
[2019-10-14] MEDS: THIAMINE HCL 100 MG TABLET PO SCH (09:49)
[2019-10-14] MEDS: FOLIC ACID 1 MG TABLET PO SCH (09:49)
[2019-10-14] MEDS: ENOXAPARIN SODIUM INJ 40 MG/0.4 ML DISP.SYRIN SUBCUT SCH (09:49)
[2019-10-14] MEDS: HYDROXYUREA 500 MG CAPSULE PO SCH ×3 (09:50→18:47)
[2019-10-14] MEDS: POLYETHYLENE GLYCOL 3350 POWDER 17 GM/1 PACKET PO SCH (09:50)
--- NOTE | 2019-10-14 13:51 | PDOC PROGRESS REPORT ---
Subjective Progress Note for:: 10/14/19 Subjective:: Due to COVID-19 restrictions, I was only able to speak with patient by telephone. I was not able to examine her. Patient states that she still has a great deal of pain, especially with walking. She has requested an extra dose of Diluadid right before she walks to see if this will help improve her mobility. She does have chest and joint pain, typical for her crises. No other complaints today. Reason For Visit: SICKLE CELL PAIN CRISIS Physical Exam Vital Signs: Temp Pulse Resp BP Pulse Ox 99.3 F 84 16 99/50 L 93 10/14/19 10:44 10/14/19 10:44 10/14/19 10:44 10/14/19 10:44 10/14/19 10:44 Intake & Output 10/13/19 10/14/19 10/15/19 06:59 06:59 06:59 Intake Total 3423 4680 Balance 3423 4680 Weight 64.9 kg 67.8 kg Results Laboratory Results: 10/12/19 06:07 10/08/19 19:50 10/08/19 18:29 Blood Blood Culture - Final NO GROWTH IN 5 DAYS 10/08/19 18:22 Blood Blood Culture - Final NO GROWTH IN 5 DAYS Impressions: Venous Doppler Study 10/05/19 00:00 IMPRESSION: Negative for deep vein thrombosis in the evaluated left lower extremity deep venous system. Chest X-Ray 10/08/19 00:00 IMPRESSION: No evidence of active intrathoracic disease. Chronic change, no adverse change Knee X-Ray 10/13/19 00:00 IMPRESSION: MILD DEGENERATIVE CHANGES. NO ACUTE FINDINGS. Assessment & Plan - Diagnosis (1) Sickle cell pain crisis Is this a current diagnosis for this admission?: Yes Plan: I will restart her OxyContin to see if this will help her be able with the PRN dilaudid to walk in [place] more in preparation for discharge. SHe does not believe a blood transfusion is needed. (2) Iron overload due to repeated red blood cell transfusions Is this a current diagnosis for this admission?: Yes Plan: She was not able to have anyone bring her Jadenu in from home due to restrictions. She has not been taking this medication. - Time Time Spent with patient: Less than 15 minutes - Plan Summary Plan Summary: Hope to discharge within 1-2 days. I will repeat labs again in AM. Please call with any other concerns.
--- NOTE | 2019-10-14 15:26 | PDOC PROGRESS REPORT ---
Subjective Progress Note for:: 10/14/19 Subjective:: Patient denied any chest pain or difficulty with breathing. No fever or chills. Her pain crisis is fairly controlled on current medication regimen. Reason For Visit: SICKLE CELL PAIN CRISIS Physical Exam Vital Signs: Temp Pulse Resp BP Pulse Ox 99.3 F 84 16 99/50 L 93 10/14/19 10:44 10/14/19 10:44 10/14/19 10:44 10/14/19 10:44 10/14/19 10:44 Intake & Output 10/13/19 10/14/19 10/15/19 06:59 06:59 06:59 Intake Total 3423 4680 Balance 3423 4680 Weight 64.9 kg 67.8 kg Physical Exam: General appearance: PRESENT: mild distress - from reported chronic pain Head exam: PRESENT: atraumatic, normocephalic Eye exam: PRESENT: conjunctiva pink. ABSENT: pallor, scleral icterus Mouth exam: PRESENT: moist Respiratory exam: PRESENT: clear to auscultation carolyn Cardiovascular exam: PRESENT: RRR. ABSENT: diastolic murmur, rubs, systolic murmur GI/Abdominal exam: PRESENT: normal bowel sounds. ABSENT: tenderness Extremities exam: PRESENT: joint swelling - tenderness. ABSENT: pedal edema Musculoskeletal exam: PRESENT: ambulatory Neurological exam: PRESENT: alert, awake, oriented to person, oriented to place, oriented to time, oriented to situation, CN II-XII grossly intact. ABSENT: motor sensory deficit Psychiatric exam: PRESENT: appropriate affect, normal mood. ABSENT: homicidal ideation, suicidal ideation Skin exam: PRESENT: dry, warm Results Laboratory Results: 10/12/19 06:07 10/08/19 19:50 10/08/19 18:29 Blood Blood Culture - Final NO GROWTH IN 5 DAYS 10/08/19 18:22 Blood Blood Culture - Final NO GROWTH IN 5 DAYS Impressions: Venous Doppler Study 10/05/19 00:00 IMPRESSION: Negative for deep vein thrombosis in the evaluated left lower extremity deep venous system. Chest X-Ray 10/08/19 00:00 IMPRESSION: No evidence of active intrathoracic disease. Chronic change, no adverse change Knee X-Ray 10/13/19 00:00 IMPRESSION: MILD DEGENERATIVE CHANGES. NO ACUTE FINDINGS. 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 coli UTI (urinary tract infection) Is this a current diagnosis for this admission?: Yes (4) Opioid dependence Qualifiers: Substance use status: with unspecified opioid-induced disorder Qualified Code(s): F11.29 - Opioid dependence with unspecified opioid-induced disorder Is this a current diagnosis for this admission?: Yes - Time Time Spent with patient: 25-34 minutes Level of Care: MEDICAL Medications reviewed and adjusted accordingly: Yes Anticipated discharge: Home with Homehealth Within: Other - Inpatient Certification Based on my medical assessment, after consideration of the patient's comorbidities, presenting symptoms, or acuity I expect that the services needed warrant INPATIENT care.: Yes I certify that my determination is in accordance with my understanding of Medicare's requirements for reasonable and necessary INPATIENT services [42 CFR 412.3e].: Yes Medical Necessity: Significant Comorbidiites Make Outpatient Treatment Too Risky, Need Close Monitoring Due to Risk of Patient Decompensation, Need For IV Fluids, Need for Pain Control, Risk of Complication if Not Cared For in [facility], Risk of Diagnosis Which Will Require Inpatient Eval/Care/Monitoring Post Hospital Care: D/C Mains And Service Supervisor Documentation - Plan Summary Plan Summary: Continue current medication management. Consider PT intervention if left knee pain persist.
[2019-10-14] MEDS: LEVOFLOXACIN 750 MG/D5W RTU 750 MG/150 ML RTUPB IV SCH (17:18)
[2019-10-14] MEDS: OXYCODONE HCL SR 10 MG TABLET PO SCH (23:28)
[2019-10-15] MEDS: HYDROMORPHONE HCL INJ/PF 2 MG/ML AMPULE IV PRN ×8 (01:02→22:50)
[2019-10-15] MEDS: DIPHENHYDRAMINE HCL 50 MG/ML VIAL IV PRN ×4 (01:02→18:51)
[2019-10-15] MEDS: 1/2 NORMAL SALINE 1,000 ML IV PRN ×4 (01:02→22:15)
[2019-10-15] MEDS: PROMETHAZINE HCL INJ 25 MG/1 ML VIAL IV PRN ×4 (04:06→22:49)
[2019-10-15 06:13] LABS: HEMATOCRIT 16.3 % (36.0-47.0); MEAN CORPUSCULAR HEMOGLOBIN 47.9 pg (27.0-33.4); MEAN CORPUSCULAR HGB CONC 36.2 g/dL (32.0-36.0); PLATELET COUNT 194 10^3/uL (150-450); RED BLOOD COUNT 1.23 10^6/uL (3.72-5.28); RED CELL DISTRIBUTION WIDTH 23.3 % (11.5-14.0); WHITE BLOOD COUNT 5.3 10^3/uL (4.0-10.5)
[2019-10-15 06:32] LABS: ALBUMIN 3.5 g/dL (3.5-5.0); ALKALINE PHOSPHATASE 123 U/L (38-126); ANION GAP 5 (5-19); ASPARTATE AMINO TRANSFERASE 41 U/L (14-36); BILIRUBIN,DIRECT 0.2 mg/dL (0.0-0.4); BILIRUBIN,TOTAL 2.1 mg/dL (0.2-1.3); BLOOD UREA NITROGEN 9 mg/dL (7-20); CALCIUM 8.1 mg/dL (8.4-10.2); CARBON DIOXIDE 27 mmol/L (22-30); CHLORIDE 103 mmol/L (98-107); GLUCOSE 109 mg/dL (75-110); POTASSIUM 4.1 mmol/L (3.6-5.0); TOTAL PROTEIN 6.1 g/dL (6.3-8.2)
[2019-10-15 06:38] LABS: MEAN CORPUSCULAR VOLUME 132 fl (80-97)
[2019-10-15 06:46] LABS: ABSOLUTE MONOCYTES # (MANUAL) 0.3 10^3/uL (0.1-1.4); BASOPHILS % (MANUAL) 1 % (0-2); EOSINOPHILS % (MANUAL) 3 % (0-6); LYMPHOCYTES % (MANUAL) 37 % (13-45); MONOCYTES % (MANUAL) 5 % (3-13); NUCLEATED RED BLOOD CELLS 37 /100 WBC (0); SEGMENTED NEUTROPHILS % (MAN) 53 % (42-78); TOTAL CELLS COUNTED 100
[2019-10-15 06:58] LABS: ANISOCYTOSIS 3+; OVALOCYTES 2+; POIKILOCYTOSIS 3+; SCHISTOCYTES 1+; SICKLE RED CELLS 1+; TEAR DROP CELLS 1+; TOXIC GRANULATION 1+
[2019-10-15 07:05] LABS: HEMOGLOBIN 5.9 g/dL (12.0-15.5)
[2019-10-15 07:15] LABS: PLATELET COMMENT ADEQUATE
[2019-10-15] MEDS: OXYCODONE HCL SR 10 MG TABLET PO SCH ×2 (10:03→22:09)
[2019-10-15] MEDS: ENOXAPARIN SODIUM INJ 40 MG/0.4 ML DISP.SYRIN SUBCUT SCH (10:04)
[2019-10-15] MEDS: THIAMINE HCL 100 MG TABLET PO SCH (10:04)
[2019-10-15] MEDS: FOLIC ACID 1 MG TABLET PO SCH (10:04)
[2019-10-15] MEDS: HYDROXYUREA 500 MG CAPSULE PO SCH ×3 (10:04→17:21)
[2019-10-15] MEDS: GABAPENTIN 300 MG CAPSULE PO SCH ×2 (10:04→22:09)
[2019-10-15] MEDS: POLYETHYLENE GLYCOL 3350 POWDER 17 GM/1 PACKET PO SCH (10:05)
--- NOTE | 2019-10-15 19:20 | PDOC PROGRESS REPORT ---
Subjective Progress Note for:: 10/15/19 Subjective:: Patient seen by the bedside, she complains of weakness, otherwise condition about the same Reason For Visit: SICKLE CELL PAIN CRISIS Physical Exam Vital Signs: Temp Pulse Resp BP Pulse Ox 99.3 F 85 18 131/60 H 99 10/15/19 14:51 10/15/19 14:51 10/15/19 14:51 10/15/19 14:51 10/15/19 14:51 Intake & Output 10/14/19 10/15/19 10/16/19 06:59 06:59 06:59 Intake Total 4680 3110 2230 Balance 4680 3110 2230 Weight 67.8 kg 67.7 kg General appearance: PRESENT: no acute distress Respiratory exam: PRESENT: clear to auscultation carolyn Cardiovascular exam: PRESENT: +S1, +S2 Neurological exam: PRESENT: alert Results Laboratory Results: 10/15/19 05:40 10/15/19 05:40 10/15/19 10/15/19 05:40 05:40 WBC 5.3 RBC 1.23 L Hgb 5.9 L Hct 16.3 L MCV 132 H D MCH 47.9 H MCHC 36.2 H RDW 23.3 H Plt Count 194 Seg Neutrophils % Not Reportable Sodium 135.4 L Potassium 4.1 Chloride 103 Carbon Dioxide 27 Anion Gap 5 BUN 9 Creatinine 0.55 Est GFR ( Amer) > 60 Glucose 109 Calcium 8.1 L Total Bilirubin 2.1 H AST 41 H Alkaline Phosphatase 123 Total Protein 6.1 L Albumin 3.5 Impressions: Venous Doppler Study 10/05/19 00:00 IMPRESSION: Negative for deep vein thrombosis in the evaluated left lower extremity deep venous system. Chest X-Ray 10/08/19 00:00 IMPRESSION: No evidence of active intrathoracic disease. Chronic change, no adverse change Knee X-Ray 10/13/19 00:00 IMPRESSION: MILD DEGENERATIVE CHANGES. NO ACUTE FINDINGS. 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 Is this a current diagnosis for this admission?: Yes (2) Sickle cell hemolytic anemia Qualifiers: Sickle-cell associated disorders: with unspecified crisis Qualified Code(s): D57.00 - Hb-SS disease with crisis, unspecified; D57.0 - Hb-SS disease with crisis Is this a current diagnosis for this admission?: Yes (3) Secondary hemochromatosis Is this a current diagnosis for this admission?: Yes (4) Opioid dependence Qualifiers: Substance use status: with unspecified opioid-induced disorder Qualified Code(s): F11.29 - Opioid dependence with unspecified opioid-induced disorder Is this a current diagnosis for this admission?: Yes (5) E. coli UTI (urinary tract infection) Is this a current diagnosis for this admission?: Yes - Time Time Spent with patient: 15-24 minutes Level of Care: MEDICAL
[2019-10-16] MEDS: HYDROMORPHONE HCL INJ/PF 2 MG/ML AMPULE IV PRN ×7 (01:51→20:54)
[2019-10-16] MEDS: DIPHENHYDRAMINE HCL 50 MG/ML VIAL IV PRN ×4 (01:52→20:55)
[2019-10-16] MEDS: PROMETHAZINE HCL INJ 25 MG/1 ML VIAL IV PRN ×3 (05:04→17:43)
[2019-10-16] MEDS: 1/2 NORMAL SALINE 1,000 ML IV PRN ×4 (05:06→23:18)
--- NOTE | 2019-10-16 08:24 | Progress Note ---
Provider Note Provider Note: I was not able to reach the patient today to discuss with her. However, her labs yesterday have remained very stable. Hemolysis has subsided. She is requiring less PRN meds. I will decrease her Dilaudid to 1 mg q 3 hours. She will continue OxyContin. She should be encouraged to go home today or tomorrow. Physical therapy for ambulation has been ordered. If they feel patient is safe to ambulate at home, then would discharge. I will arrange for all of her narcotic Rx on discharge.
[2019-10-16] MEDS: HYDROXYUREA 500 MG CAPSULE PO SCH ×3 (09:39→17:43)
[2019-10-16] MEDS: FOLIC ACID 1 MG TABLET PO SCH (09:39)
[2019-10-16] MEDS: GABAPENTIN 300 MG CAPSULE PO SCH ×2 (09:39→21:00)
[2019-10-16] MEDS: THIAMINE HCL 100 MG TABLET PO SCH (09:39)
[2019-10-16] MEDS: ENOXAPARIN SODIUM INJ 40 MG/0.4 ML DISP.SYRIN SUBCUT SCH (09:39)
[2019-10-16] MEDS: OXYCODONE HCL SR 10 MG TABLET PO SCH ×2 (09:39→23:16)
[2019-10-16] MEDS: POLYETHYLENE GLYCOL 3350 POWDER 17 GM/1 PACKET PO SCH (09:39)
--- NOTE | 2019-10-16 21:17 | PDOC PROGRESS REPORT ---
Subjective Progress Note for:: 10/16/19 Subjective:: Patient seen by the bedside, she complains of weakness, otherwise condition about the same Reason For Visit: SICKLE CELL PAIN CRISIS Physical Exam Vital Signs: Temp Pulse Resp BP Pulse Ox 99.1 F 78 17 95/51 L 94 10/16/19 10:57 10/16/19 10:57 10/16/19 10:57 10/16/19 10:57 10/16/19 10:57 Intake & Output 10/15/19 10/16/19 10/17/19 06:59 06:59 06:59 Intake Total 3110 4178 2243 Balance 3110 4178 2243 Weight 67.7 kg 67.7 kg General appearance: PRESENT: no acute distress Eye exam: PRESENT: PERRLA Respiratory exam: PRESENT: clear to auscultation carolyn Cardiovascular exam: PRESENT: +S1, +S2 Neurological exam: PRESENT: alert Results Laboratory Results: 10/15/19 05:40 10/15/19 05:40 10/15/19 05:40 WBC 5.3 RBC 1.23 L Hgb 5.9 L Hct 16.3 L MCV 132 H D MCH 47.9 H MCHC 36.2 H RDW 23.3 H Plt Count 194 Impressions: Venous Doppler Study 10/05/19 00:00 IMPRESSION: Negative for deep vein thrombosis in the evaluated left lower extremity deep venous system. Chest X-Ray 10/08/19 00:00 IMPRESSION: No evidence of active intrathoracic disease. Chronic change, no adverse change Knee X-Ray 10/13/19 00:00 IMPRESSION: MILD DEGENERATIVE CHANGES. NO ACUTE FINDINGS. 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 Is this a current diagnosis for this admission?: Yes (2) Sickle cell hemolytic anemia Qualifiers: Sickle-cell associated disorders: with unspecified crisis Qualified Code(s): D57.00 - Hb-SS disease with crisis, unspecified; D57.0 - Hb-SS disease with crisis Is this a current diagnosis for this admission?: Yes (3) Secondary hemochromatosis Is this a current diagnosis for this admission?: Yes (4) Opioid dependence Qualifiers: Substance use status: with unspecified opioid-induced disorder Qualified Code(s): F11.29 - Opioid dependence with unspecified opioid-induced disorder Is this a current diagnosis for this admission?: Yes (5) E. coli UTI (urinary tract infection) Is this a current diagnosis for this admission?: Yes - Time Time Spent with patient: 25-34 minutes Level of Care: MEDICAL
[2019-10-17] MEDS: PROMETHAZINE HCL INJ 25 MG/1 ML VIAL IV PRN ×4 (00:31→18:46)
[2019-10-17] MEDS: HYDROMORPHONE HCL INJ/PF 2 MG/ML AMPULE IV PRN ×8 (00:31→21:52)
[2019-10-17] MEDS: DIPHENHYDRAMINE HCL 50 MG/ML VIAL IV PRN ×4 (03:35→21:52)
[2019-10-17] MEDS: FOLIC ACID 1 MG TABLET PO SCH (09:46)
[2019-10-17] MEDS: THIAMINE HCL 100 MG TABLET PO SCH (09:46)
[2019-10-17] MEDS: HYDROXYUREA 500 MG CAPSULE PO SCH ×3 (09:46→17:42)
[2019-10-17] MEDS: OXYCODONE HCL SR 10 MG TABLET PO SCH ×2 (09:46→21:52)
[2019-10-17] MEDS: GABAPENTIN 300 MG CAPSULE PO SCH ×2 (09:47→21:53)
[2019-10-17] MEDS: ENOXAPARIN SODIUM INJ 40 MG/0.4 ML DISP.SYRIN SUBCUT SCH (09:49)
[2019-10-17] MEDS: 1/2 NORMAL SALINE 1,000 ML IV PRN ×2 (09:56→21:51)
[2019-10-17] MEDS: ERGOCALCIFEROL (VITAMIN D2) 50000 UNIT (1.25 MG) CAPSULE PO SCH (09:57)
[2019-10-17] MEDS: POLYETHYLENE GLYCOL 3350 POWDER 17 GM/1 PACKET PO SCH (12:59)
[2019-10-17 15:28] LABS: MEAN CORPUSCULAR HEMOGLOBIN 48.6 pg (27.0-33.4); MEAN CORPUSCULAR HGB CONC 36.2 g/dL (32.0-36.0); MEAN CORPUSCULAR VOLUME 134 fl (80-97); PLATELET COUNT 206 10^3/uL (150-450); RED BLOOD COUNT 1.34 10^6/uL (3.72-5.28); RED CELL DISTRIBUTION WIDTH 24.8 % (11.5-14.0); WHITE BLOOD COUNT 4.4 10^3/uL (4.0-10.5)
[2019-10-17 15:40] LABS: ALBUMIN 3.8 g/dL (3.5-5.0); ALKALINE PHOSPHATASE 99 U/L (38-126); ANION GAP 6 (5-19); ASPARTATE AMINO TRANSFERASE 60 U/L (14-36); BILIRUBIN,DIRECT 0.1 mg/dL (0.0-0.4); BILIRUBIN,TOTAL 2.9 mg/dL (0.2-1.3); BLOOD UREA NITROGEN 8 mg/dL (7-20); CALCIUM 8.6 mg/dL (8.4-10.2); CARBON DIOXIDE 27 mmol/L (22-30); CHLORIDE 103 mmol/L (98-107); GLUCOSE 137 mg/dL (75-110); POTASSIUM 4.3 mmol/L (3.6-5.0); TOTAL PROTEIN 6.7 g/dL (6.3-8.2)
[2019-10-17 15:47] LABS: HEMOGLOBIN 6.5 g/dL (12.0-15.5)
[2019-10-17 15:51] LABS: ABSOLUTE LYMPHOCYTES# (MANUAL) 2.6 10^3/uL (0.5-4.7); BASOPHILS % (MANUAL) 2 % (0-2); EOSINOPHILS % (MANUAL) 2 % (0-6); LYMPHOCYTES % (MANUAL) 59 % (13-45); MONOCYTES % (MANUAL) 1 % (3-13); NUCLEATED RED BLOOD CELLS 73 /100 WBC (0); SEGMENTED NEUTROPHILS % (MAN) 36 % (42-78); TOTAL CELLS COUNTED 100
[2019-10-17 15:56] LABS: ANISOCYTOSIS 3+; HOWELL-JOLLY BODIES PRESENT; OVALOCYTES 1+; PLATELET COMMENT ADEQUATE; POIKILOCYTOSIS 2+; TARGET CELLS 1+; TEAR DROP CELLS SLIGHT
--- NOTE | 2019-10-17 16:08 | PDOC DISCHARGE SUMMARY ---
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 coli UTI (urinary tract infection) Is this a current diagnosis for this admission?: Yes - Additional Information Referrals: SAVANNA RAMIREZ MD [Primary Care Provider] - 11/15/19 10:45 am Home Medications: Deferasirox [Jadenu] 360 mg PO DAILY 08/13/19 Epoetin Federico [Procrit Inj 20,000 Unit/1 ml Vial (Renal)] 60,000 unit IJ FR@1000 08/13/19 Ergocalciferol (Vitamin D2) [Vitamin D2] 50 mcg PO WE@1000 08/13/19 Folic Acid 1 mg PO DAILY 08/13/19 Gabapentin [Neurontin 300 mg Capsule] 300 mg PO Q12 08/13/19 Hydroxyurea [Hydrea 500 mg Capsule] 500 mg PO TID 08/13/19 Oxycodone HCl [Oxy-Ir 5 mg Tablet] 10 mg PO Q6HP PRN 08/13/19 Oxycodone HCl [Oxycodone HCl ER] 30 mg PO Q12 08/13/19 History of Present Illiness History of Present Illness: WILLIE ALAN is a 49 year old female, Patient is well-known to this hospital, she has multiple hospitalization for the management of sickle cell crisis, she came to emergency room for evaluation of bone pain, the blood work that was done suggest evidence of hemolysis, there was associated increase reticulocyte count, LDH was elevated, hyperbilirubinemia.Usually her pain is managed by the resource manager Dr. Buckley she will be consulted Hospital Course Hospital Course: Patient was admitted for the management of vaso-occlusive bone pain crisis, sickle cell anemia, she was treated with IV fluid therapy she was seen by resource manager, Dr. Ramirez, she manage her pain with Dilaudid, she required Dilaudid 4 mg every 2 hours ultimately every 3 hours, he is opiate dependent. The hemoglobin was as low as 5 she was not transfused with red blood cells because she has secondary hemochromatosis due to repeated blood transfusion. She was encouraged to be more active.Patient also had E. coli UTI, treated with IV antibiotic, she is at increased risk of gram-negative sepsis because of secondary hemochromatosis. Iron overload in sickle cell disease is particularly high risk for infection Physical Exam Vital Signs: Temp Pulse Resp BP Pulse Ox 98.9 F 79 16 92/56 L 95 10/17/19 11:15 10/17/19 11:15 10/17/19 11:15 10/17/19 11:15 10/17/19 11:15 Intake & Output 10/16/19 10/17/19 10/18/19 06:59 06:59 06:59 Intake Total 4178 4073 Balance 4178 4073 Weight 67.7 kg 67 kg General appearance: PRESENT: no acute distress Eye exam: PRESENT: PERRLA Respiratory exam: PRESENT: clear to auscultation carolyn Cardiovascular exam: PRESENT: +S1, +S2 GI/Abdominal exam: PRESENT: soft Neurological exam: PRESENT: alert, CN II-XII grossly intact Results Laboratory Results: WBC 4.4 10^3/uL (4.0-10.5) 10/17/19 15:10 RBC 1.34 10^6/uL (3.72-5.28) L 10/17/19 15:10 Hgb 6.5 g/dL (12.0-15.5) L 10/17/19 15:10 Hct 18.0 % (36.0-47.0) L 10/17/19 15:10 MCV 134 fl (80-97) H 10/17/19 15:10 MCH 48.6 pg (27.0-33.4) H 10/17/19 15:10 MCHC 36.2 g/dL (32.0-36.0) H 10/17/19 15:10 RDW 24.8 % (11.5-14.0) H 10/17/19 15:10 Plt Count 206 10^3/uL (150-450) 10/17/19 15:10 Lymph % (Auto) Not Reportable 10/17/19 15:10 [place] % (Auto) Not Reportable 10/17/19 15:10 Eos % (Auto) Not Reportable 10/17/19 15:10 Baso % (Auto) Not Reportable 10/17/19 15:10 Reticulocyte # 0.110 10^6/uL (0.028-0.122) 10/03/19 06:00 Absolute Neuts (auto) Not Reportable 10/17/19 15:10 Absolute Lymphs (auto) Not Reportable 10/17/19 15:10 Absolute Monos (auto) Not Reportable 10/17/19 15:10 Absolute Eos (auto) Not Reportable 10/17/19 15:10 Absolute Basos (auto) Not Reportable 10/17/19 15:10 Total Counted 100 10/17/19 15:10 Seg Neutrophils % Not Reportable 10/17/19 15:10 Seg Neuts % (Manual) 36 % (42-78) L 10/17/19 15:10 Lymphocytes % (Manual) 59 % (13-45) H 10/17/19 15:10 Atypical Lymphs % 1 % (0) 10/15/19 05:40 Monocytes % (Manual) 1 % (3-13) L 10/17/19 15:10 Eosinophils % (Manual) 2 % (0-6) 10/17/19 15:10 Basophils % (Manual) 2 % (0-2) 10/17/19 15:10 Abs Neuts (Manual) 1.6 10^3/uL (1.7-8.2) L 10/17/19 15:10 Abs Lymphs (Manual) 2.6 10^3/uL (0.5-4.7) 10/17/19 15:10 Abs Monocytes (Manual) 0.0 10^3/uL (0.1-1.4) L 10/17/19 15:10 Absolute Eos (Manual) 0.1 10^3/uL (0.0-0.6) 10/17/19 15:10 Abs Basophils (Manual) 0.1 10^3/uL (0.0-0.2) 10/17/19 15:10 Nucleated RBCs 73 /100 WBC (0) 10/17/19 15:10 Toxic Granulation 1+ 10/15/19 05:40 Platelet Estimate Cancelled 10/12/19 04:59 Platelet Comment ADEQUATE 10/17/19 15:10 Polychromasia 1+ 10/12/19 06:07 Poikilocytosis 2+ 10/17/19 15:10 Basophilic Stippling PRESENT 10/09/19 06:20 Anisocytosis 3+ 10/17/19 15:10 Macrocytosis 4+ 10/17/19 15:10 Pappenheimer Bodies PRESENT 10/09/19 06:20 Sickle Cells 1+ 10/15/19 05:40 Target Cells 1+ 10/17/19 15:10 Tear Drop Cells SLIGHT 10/17/19 15:10 Ovalocytes 1+ 10/17/19 15:10 [place] Bodies PRESENT 10/17/19 15:10 [place]toria Cells SLIGHT 10/12/19 06:07 Schistocytes 1+ 10/15/19 05:40 RBC Morph Comment 10/09/19 06:20 Retic Count (auto) 7.16 % (0.66-2.85) H 10/03/19 06:00 PT 18.2 SEC (11.4-15.4) H 10/02/19 21:15 INR 1.49 10/02/19 21:15 APTT 29.9 SEC (23.5-35.8) 10/02/19 21:15 Sodium 136.2 mmol/L (137-145) L 10/17/19 15:10 Potassium 4.3 mmol/L (3.6-5.0) 10/17/19 15:10 Chloride 103 mmol/L (98-107) 10/17/19 15:10 Carbon Dioxide 27 mmol/L (22-30) 10/17/19 15:10 Anion Gap 6 (5-19) 10/17/19 15:10 BUN 8 mg/dL (7-20) 10/17/19 15:10 Creatinine 0.47 mg/dL (0.52-1.25) L 10/17/19 15:10 Est GFR ( Amer) > 60 (>60) 10/17/19 15:10 Est GFR (MDRD) Non-Af > 60 (>60) 10/17/19 15:10 Glucose 137 mg/dL (75-110) H 10/17/19 15:10 Hemoglobin A1c % Cancelled 10/03/19 06:00 Calcium 8.6 mg/dL (8.4-10.2) 10/17/19 15:10 Phosphorus 4.0 mg/dL (2.5-4.5) 10/02/19 21:15 Magnesium 1.9 mg/dL (1.6-2.3) 10/02/19 21:15 Iron Not Reportable 10/03/19 06:00 TIBC Not Reportable 10/03/19 06:00 Ferritin 3010.00 ng/mL (11.1-264.0) H 10/03/19 06:00 Total Bilirubin 2.9 mg/dL (0.2-1.3) H 10/17/19 15:10 Direct Bilirubin 0.1 mg/dL (0.0-0.4) 10/17/19 15:10 Neonat Total Bilirubin Not Reportable 10/17/19 15:10 Neonat Direct Bilirubin Not Reportable 10/17/19 15:10 Neonat Indirect Bili Not Reportable 10/17/19 15:10 AST 60 U/L (14-36) H 10/17/19 15:10 ALT 26 U/L (<35) 10/17/19 15:10 Alkaline Phosphatase 99 U/L (38-126) 10/17/19 15:10 Lactate Dehydrogenase 368 U/L (120-246) H 10/15/19 05:40 Total Protein 6.7 g/dL (6.3-8.2) 10/17/19 15:10 Albumin 3.8 g/dL (3.5-5.0) 10/17/19 15:10 Triglycerides 45 mg/dL (<150) 10/03/19 06:00 Cholesterol 124.07 mg/dL (0-200) 10/03/19 06:00 LDL Cholesterol Direct 48 mg/dL (<100) 10/03/19 06:00 VLDL Cholesterol 9.0 mg/dL (10-31) L 10/03/19 06:00 HDL Cholesterol 59 mg/dL (>40) 10/03/19 06:00 Amylase 51 U/L (30-110) 10/02/19 21:15 Lipase 80.3 U/L (23-300) 10/02/19 21:15 Vitamin B12 370.0 pg/mL (239-931) 10/03/19 06:00 Folate > 20.00 ng/mL (>2.76) 10/03/19 06:00 TSH 0.83 uIU/mL (0.47-4.68) 10/02/19 21:15 Free T4 1.08 ng/dL (0.78-2.19) 10/02/19 21:15 Urine Color HINA 10/03/19 03:50 Urine Appearance SLIGHTLY-CLOUDY 10/03/19 03:50 Urine pH 5.0 (5.0-9.0) 10/03/19 03:50 Ur Specific [place] 1.013 10/03/19 03:50 Urine Protein NEGATIVE mg/dL (NEGATIVE) 10/03/19 03:50 Urine Glucose (UA) NEGATIVE mg/dL (NEGATIVE) 10/03/19 03:50 Urine Ketones NEGATIVE mg/dL (NEGATIVE) 10/03/19 03:50 Urine Blood SMALL (NEGATIVE) H 10/03/19 03:50 Urine Nitrite NEGATIVE (NEGATIVE) 10/03/19 03:50 Urine Bilirubin NEGATIVE (NEGATIVE) 10/03/19 03:50 Urine Urobilinogen NEGATIVE mg/dL (<2.0) 10/03/19 03:50 Ur Leukocyte Esterase NEGATIVE (NEGATIVE) 10/03/19 03:50 Urine WBC (Auto) 3 /HPF 10/03/19 03:50 U Hyaline Cast (Auto) 3 /LPF 10/03/19 03:50 Urine Mucus (Auto) MOD /LPF 10/03/19 03:50 Urine Ascorbic Acid NEGATIVE (NEGATIVE) 10/03/19 03:50 Urine Opiates Screen UNCONFIRMED POSITIVE 10/03/19 03:50 Urine Methadone Screen NEGATIVE 10/03/19 03:50 Ur Barbiturates Screen NEGATIVE 10/03/19 03:50 Ur Phencyclidine Scrn NEGATIVE 10/03/19 03:50 Ur Amphetamines Screen NEGATIVE 10/03/19 03:50 U Benzodiazepines Scrn NEGATIVE 10/03/19 03:50 Urine Cocaine Screen NEGATIVE 10/03/19 03:50 U Marijuana (THC) Screen NEGATIVE 10/03/19 03:50 [address] Review Cancelled 10/12/19 04:59 Impressions: Chest X-Ray 10/02/19 13:47 IMPRESSION: NO ACUTE RADIOGRAPHIC FINDING IN THE CHEST. Venous Doppler Study 10/05/19 00:00 IMPRESSION: Negative for deep vein thrombosis in the evaluated left lower extremity deep venous system. Chest X-Ray 10/08/19 00:00 IMPRESSION: No evidence of active intrathoracic disease. Chronic change, no adverse change Knee X-Ray 10/13/19 00:00 IMPRESSION: MILD DEGENERATIVE CHANGES. NO ACUTE FINDINGS. Stroke Is this a Stroke Patient?: No Acute Heart Failure - Is this a Heart Failure Patient?: No
[2019-10-18] MEDS: PROMETHAZINE HCL INJ 25 MG/1 ML VIAL IV PRN ×3 (00:51→13:13)
[2019-10-18] MEDS: HYDROMORPHONE HCL INJ/PF 2 MG/ML AMPULE IV PRN ×5 (00:53→13:13)
[2019-10-18] MEDS: DIPHENHYDRAMINE HCL 50 MG/ML VIAL IV PRN ×2 (03:59→10:10)
[2019-10-18] MEDS: 1/2 NORMAL SALINE 1,000 ML IV PRN (04:02)
[2019-10-18] MEDS: ENOXAPARIN SODIUM INJ 40 MG/0.4 ML DISP.SYRIN SUBCUT SCH (10:05)
[2019-10-18] MEDS: THIAMINE HCL 100 MG TABLET PO SCH (10:06)
[2019-10-18] MEDS: GABAPENTIN 300 MG CAPSULE PO SCH (10:06)
[2019-10-18] MEDS: FOLIC ACID 1 MG TABLET PO SCH (10:06)
[2019-10-18] MEDS: POLYETHYLENE GLYCOL 3350 POWDER 17 GM/1 PACKET PO SCH (10:06)
[2019-10-18] MEDS: OXYCODONE HCL SR 10 MG TABLET PO SCH (10:06)
[2019-10-18] MEDS: HYDROXYUREA 500 MG CAPSULE PO SCH (10:10)
[2019-10-18 10:43] VITALS: BP 96/52
--- NOTE | 2019-10-18 19:26 | PDOC PROGRESS REPORT ---
Subjective Progress Note for:: 10/17/19 Subjective:: Patient seen by the bedside, she complains of weakness, otherwise condition about the same Reason For Visit: SICKLE CELL PAIN CRISIS Physical Exam Vital Signs: Temp Pulse Resp BP Pulse Ox 98.5 F 85 16 96/52 L 94 10/18/19 10:43 10/18/19 10:43 10/18/19 10:43 10/18/19 10:43 10/18/19 10:43 Intake & Output 10/17/19 10/18/19 10/19/19 06:59 06:59 06:59 Intake Total 4073 2487 1300 Balance 4073 2487 1300 Weight 67 kg 67 kg 67 kg General appearance: PRESENT: no acute distress Eye exam: PRESENT: PERRLA Respiratory exam: PRESENT: clear to auscultation carolyn Cardiovascular exam: PRESENT: +S1, +S2 Neurological exam: PRESENT: alert Results Laboratory Results: 10/17/19 15:10 10/17/19 15:10 Impressions: Venous Doppler Study 10/05/19 00:00 IMPRESSION: Negative for deep vein thrombosis in the evaluated left lower extremity deep venous system. Chest X-Ray 10/08/19 00:00 IMPRESSION: No evidence of active intrathoracic disease. Chronic change, no adverse change Knee X-Ray 10/13/19 00:00 IMPRESSION: MILD DEGENERATIVE CHANGES. NO ACUTE FINDINGS. 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 Is this a current diagnosis for this admission?: Yes (2) Sickle cell hemolytic anemia Qualifiers: Sickle-cell associated disorders: with unspecified crisis Qualified Code(s): D57.00 - Hb-SS disease with crisis, unspecified; D57.0 - Hb-SS disease with crisis Is this a current diagnosis for this admission?: Yes (3) Secondary hemochromatosis Is this a current diagnosis for this admission?: Yes (4) Opioid dependence Qualifiers: Substance use status: with unspecified opioid-induced disorder Qualified Code(s): F11.29 - Opioid dependence with unspecified opioid-induced disorder Is this a current diagnosis for this admission?: Yes (5) E. coli UTI (urinary tract infection) Is this a current diagnosis for this admission?: Yes - Time Time Spent with patient: 15-24 minutes
== END 2019-10-18 13:52 | disposition home or self-care (01) | DRG 812 ==
LOC: ER 13:42 → OBSVTOIN 16:52 → EH 16:52 → 4S 17:46
PROVIDERS: ADMIT Internal Medicine; ATTEND Internal Medicine
DX: D57.00 Hb-SS disease with crisis, unspecified (principal); N39.0 Urinary tract infection, site not specified; E83.111 Hemochromatosis due to repeated red blood cell transfusions; B96.20 Unspecified Escherichia coli [E. coli] as the cause of diseases classified elsewhere; Z86.14 Personal history of Methicillin resistant Staphylococcus aureus infection; Z88.3 Allergy status to other anti-infective agents; Z79.891 Long term (current) use of opiate analgesic; Z79.899 Other long term (current) drug therapy
CPT/HCPCS: 36415; 71045; 80053; 80061; 80307; 81001; 82150; 82607; 82728; 82746; 83540; 83550; 83615; 83690; 83735; 84100; 84439; 84443; 85025; 85045; 85610; 85730; 87040; 87070; 87086; 87088; 87186; 93005; 93010; 93971; 96361; 96374; 96375; 96376; 99285; J1170; J1200; J1642; J1650; J1885; J1956; J2550; J3411; J3490; J7030; J7050; J7120; Q5105

== ENCOUNTER 2019-11-06 14:18 | Emergency (ER) | payer MEDICAID ==
[2019-11-06] MEDS ORDERED: NORMAL SALINE 1000 ML 1,000 ML IV ONE ×2 (15:07→17:47)
[2019-11-06] MEDS ORDERED: DIPHENHYDRAMINE HCL 50 MG/ML VIAL IV ONE ×2 (15:07→20:15)
[2019-11-06] MEDS ORDERED: HYDROMORPHONE HCL INJ/PF 2 MG/ML AMPULE IV ONE ×4 (15:07→20:15)
[2019-11-06] MEDS ORDERED: ONDANSETRON HCL INJ/PF 4 MG/2 ML SDV IV ONE (15:07)
--- NOTE | 2019-11-06 15:09 | ER Document Report ---
ED Medical Screen (RME) - General Chief Complaint: Sickle Cell Crisis Stated Complaint: BODY PAIN/SICKLE CELL CRISIS Time Seen by Provider: 11/06/19 15:04 Primary Care Provider: SAVANNA AWAN MD [Primary Care Provider] - Follow up as needed Mode of Arrival: Ambulatory Information source: Patient Notes: 49-year-old female patient presenting to the emergency department with sickle cell pain. Patient reports pain ongoing for last few days. She reports she went and saw Dr. Link, he directed her to come to the emergency department however this was 2 days ago. She states she did not want to come to the emergency department but the pain has worsened. Patient reports all over body pain including chest pain. She does report having a history of acute chest s yndrome however she states that was a long time ago. Patient alert, oriented, no acute distress noted. Lung sounds clear and equal bilaterally. I have greeted and performed a rapid initial assessment of this patient. A comprehensive ED assessment and evaluation of the patient, analysis of test results and completion of the medical decision making process will be conducted by additional ED providers. I have specifically instructed the patient or family members with the patient to immediately return to any nursing staff should anything change in the patient's condition or with their chief complaint. - Related Data Allergies/Adverse Reactions: doxycycline [Doxycycline] Allergy (Severe, Verified 08/12/19 19:02) Past Medical History - Social History Frequency of alcohol use: None Drug Abuse: None - Past Medical History Cardiac Medical History: Reports: Hx Heart Murmur Denies: Hx Atrial Fibrillation, Hx Congestive Heart Failure, Hx Coronary Artery Disease, Hx Heart Attack, Hx Hypercholesterolemia, Hx Hypertension, Hx Peripheral Vascular Disease Pulmonary Medical History: Denies: Hx Tuberculosis Neurological Medical History: Denies: Hx Seizures Renal/ Medical History: Reports: Hx Ovarian Cysts. 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 Denies: Hx HIV Past Surgical History: Reports: Hx Appendectomy, Hx Section, Hx Cholecystectomy, Hx Orthopedic Surgery - R knee, Hx Tonsillectomy. Denies: Hx Bowel Surgery, Hx Coronary Artery Bypass Graft, Hx Gastric Bypass Surgery, Hx Herniorrhaphy, Hx Mastectomy, Hx Pacemaker, Hx Tubal Ligation - Immunizations Immunizations up to date: Yes Hx Diphtheria, Pertussis, Tetanus Vaccination: Yes Physical Exam - Vital signs Vitals: Temp Pulse Resp BP Pulse Ox 98.9 F 84 16 93/55 L 96 11/06/19 14:25 11/06/19 14:25 11/06/19 14:25 11/06/19 14:25 11/06/19 14:25 Course - Vital Signs Vital signs: Temp Pulse Resp BP Pulse Ox 98.9 F 84 16 93/55 L 96 11/06/19 15:04 11/06/19 14:25 11/06/19 14:25 11/06/19 14:25 11/06/19 14:25 Doctor's Discharge - Discharge Referrals: SAVANNA AWAN MD [Primary Care Provider] - Follow up as needed
--- NOTE | 2019-11-06 15:29 | RADIOLOGY REPORT (SQ) ---
EXAM DESCRIPTION: CHEST 2 VIEWS IMAGES COMPLETED DATE/TIME: 11/06/2019 3:17 pm REASON FOR STUDY: chest pain, sickle cell patient COMPARISON: 10/08/2019 EXAM PARAMETERS: NUMBER OF VIEWS: two views TECHNIQUE: Digital Frontal and Lateral radiographic views of the chest acquired. RADIATION DOSE: NA LIMITATIONS: none FINDINGS: LUNGS AND PLEURA: No opacities, masses or pneumothorax. No pleural effusion. MEDIASTINUM AND HILAR STRUCTURES: No masses or contour abnormalities. HEART AND VASCULAR STRUCTURES: Borderline enlarged cardiac silhouette. Mild central vascular congest ion without overt edema. BONES: No acute findings. HARDWARE: Left internal jugular central venous catheter tip at cavoatrial junction. Cholecystectomy clips. OTHER: No other significant finding. IMPRESSION: Stable borderline enlarged cardiac silhouette and central vascular congestion without ot her evidence of acute cardiopulmonary process. TECHNICAL DOCUMENTATION: JOB ID: [id number] [employer]- All Rights Reserved Reading location - IP/workstation name: [email or web address]
--- NOTE | 2019-11-06 16:13 | ER Document Report ---
ED General - General Chief Complaint: Sickle Cell Crisis Stated Complaint: BODY PAIN/SICKLE CELL CRISIS Time Seen by Provider: 11/06/19 15:04 Primary Care Provider: SAVANNA RAMIREZ MD [ACTIVE STAFF] - Follow up tomorrow HOMA BARRAZA MD [Primary Care Provider] - Follow up tomorrow Mode of Arrival: Ambulatory Information source: Patient Notes: Patient presents with 4-day history of generalized body pain back pain chest pain. Patient reports some nausea. Patient denies any vomiting diarrhea or cough. Patient is concerned about sickle cell crisis. - HPI Onset: Other - 4 days Onset/Duration: Persistent Quality of pain: Achy Pain Level: 5 Associated symptoms: Body/muscle aches, Chest pain, Nausea. denies: Nonproduc tive cough, Productive cough, Vomiting Exacerbated by: Denies Relieved by: Denies Similar symptoms previously: Yes Recently seen / treated by doctor: No - Related Data Allergies/Adverse Reactions: doxycycline [Doxycycline] Allergy (Severe, Verified 08/12/19 19:02) Past Medical History - General Information source: Patient - Social History Smoking Status: Never Smoker Frequency of alcohol use: None Drug Abuse: None Lives with: Family Family History: Reviewed & Not Pertinent Patient has homicidal ideation: No - Medical History Medical History: Other - Sickle cell disease - Past Medical History Cardiac Medical History: Reports: Hx Heart Murmur Denies: Hx Atrial Fibrillation, Hx Congestive Heart Failure, Hx Coronary Artery Disease, Hx Heart Attack, Hx Hypercholesterolemia, Hx Hypertension, Hx Peripheral Vascular Disease Pulmonary Medical History: Denies: Hx Tuberculosis Neurological Medical History: Denies: Hx Seizures Renal/ Medical History: Reports: Hx Ovarian Cysts. 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 Denies: Hx HIV Past Surgical History: Reports: Hx Appendectomy, Hx Section, Hx Cholecystectomy, Hx Orthopedic Surgery - R knee, Hx Tonsillectomy - Immunizations Immunizations up to date: Yes Hx Diphtheria, Pertussis, Tetanus Vaccination: Yes Hx Pneumococcal Vaccination: 03/20/14 Review of Systems - Review of Systems Constitutional: No symptoms reported. denies: Recent illness EENT: No symptoms reported Cardiovascular: Chest pain Respiratory: No symptoms reported. denies: Cough, Short of breath Gastrointestinal: Nausea. denies: Vomiting Genitourinary: No symptoms reported Female Genitourinary: No symptoms reported Musculoskeletal: Back pain, Other - Generalized extremity pain Skin: No symptoms reported Hematologic/Lymphatic: No symptoms reported Physical Exam - Vital signs Vitals: Temp Pulse Resp BP Pulse Ox 98.9 F 84 16 93/55 L 96 11/06/19 14:25 11/06/19 14:25 11/06/19 14:25 11/06/19 14:25 11/06/19 14:25 - General General appearance: Appears well, Alert In distress: None - HEENT Head: Normocephalic, Atraumatic Eyes: Normal Conjunctiva: Icteric Nasal: Normal Mouth/Lips: Normal Mucous membranes: Normal Pharynx: Normal Neck: Normal, Supple. No: Lymphadenopathy - Respiratory Respiratory status: No respiratory distress Chest status: Tender Breath sounds: Normal. No: Nonproductive cough, Productive cough Chest palpation: Normal - Cardiovascular Rhythm: Regular Heart sounds: S1 appreciated, S2 appreciated - Abdominal Inspection: Normal Distension: No distension Bowel sounds: Normal Tenderness: Nontender Organomegaly: No organomegaly - Back Back: Normal, Nontender. No: CVA tenderness - Extremities General upper extremity: Normal inspection, Normal strength General lower extremity: Normal inspection, Normal strength - Neurological Neuro grossly intact: Yes Cognition: Normal Zeeshan Coma Scale Eye Opening: Spontaneous Zeeshan Coma Scale Verbal: Oriented Zeeshan Coma Scale Motor: Obeys Commands [place] Coma Scale Total: 15 - Psychological Associated symptoms: Normal affect, Normal mood - Skin Skin Temperature: Warm Skin Moisture: Dry Skin Color: Normal Course - Re-evaluation Re-evalutation: 11/06/19 17:47 Patient continues to complain of generalized body pain. Vital signs stable at this time. Patient requesting additional pain medication at this time. Patient with history of sickle cell disease, patient with H&H of 7.3 and 20.1 respectively. Patient also with increased bilirubin. Patient without any le ukocytosis. Will medicate and reevaluate patient. 11/06/19 19:20 Patient denies any chest discomfort symptoms although complains of continued extremity pain and low back pain. Consulted with patient's primary doctor Dr. Barraza who is very familiar with patient. He declines admitting patient at this time, although is agreeable with seeing her in the office tomorrow. 11/06/19 20:15 Discussed plan of care with patient, patient states that she does not want to go to the Dr. Barraza's office tomorrow that she will call and will contact her septic tank setter office for recheck. Patient does state that she ran out of her pain medication has been unable to get up with Dr. Ramirez. - Vital Signs Vital signs: Temp Pulse Resp BP Pulse Ox 98.9 F 84 15 101/59 L 100 11/06/19 15:04 11/06/19 14:25 11/06/19 19:00 11/06/19 19:00 11/06/19 19:00 - Laboratory Result Diagrams: 11/06/19 16:30 11/06/19 16:30 Laboratory results interpreted by me: 11/06/19 11/06/19 16:30 16:30 RBC 1.55 L Hgb 7.3 L Hct 20.1 L MCV 130 H D MCH 47.0 H MCHC 36.1 H RDW 18.8 H Lymphocytes % (Manual) 48 H Retic Count (auto) 4.13 H Sodium 135.6 L BUN 5 L Total Bilirubin 4.1 H Direct Bilirubin 0.6 H AST 54 H ALT 38 H Creatine Kinase 22 L - Diagnostic Test Radiology reviewed: Reports reviewed Discharge - Discharge Clinical Impression: Chronic pain syndrome Sickle cell disease Qualifiers: Sickle-cell associated disorders: without crisis Qualified Code(s): D57.1 - Sickle-cell disease without crisis Condition: Stable Disposition: HOME, SELF-CARE Instructions: Oral Narcotic Medication ([facility]), Sickle Cell Crisis ([facility]) Additional Instructions: Return immediately for any new or worsening symptoms Followup with your primary care provider, call tomorrow to make a followup appointment Follow-up with your septic tank setter, call tomorrow for an appointment Referrals: SAVANNA RAMIREZ MD [ACTIVE STAFF] - Follow up tomorrow HOMA BARRAZA MD [Primary Care Provider] - Follow up tomorrow
[2019-11-06 17:07] LABS: ABSOLUTE RETICS # 0.064 10^6/uL (0.028-0.122); HEMATOCRIT 20.1 % (36.0-47.0); MEAN CORPUSCULAR HGB CONC 36.1 g/dL (32.0-36.0); PLATELET COUNT 223 10^3/uL (150-450); RED BLOOD COUNT 1.55 10^6/uL (3.72-5.28); RED CELL DISTRIBUTION WIDTH 18.8 % (11.5-14.0); RETICULOCYTE COUNT (AUTO) 4.13 % (0.66-2.85); WHITE BLOOD COUNT 5.5 10^3/uL (4.0-10.5)
[2019-11-06 17:20] LABS: ALBUMIN 4.5 g/dL (3.5-5.0); ALKALINE PHOSPHATASE 122 U/L (38-126); ANION GAP 9 (5-19); ASPARTATE AMINO TRANSFERASE 54 U/L (14-36); BILIRUBIN,DIRECT 0.6 mg/dL (0.0-0.4); BILIRUBIN,TOTAL 4.1 mg/dL (0.2-1.3); BLOOD UREA NITROGEN 5 mg/dL (7-20); CALCIUM 9.4 mg/dL (8.4-10.2); CARBON DIOXIDE 23 mmol/L (22-30); CHLORIDE 104 mmol/L (98-107); CREATINE KINASE 22 U/L (30-135); GLUCOSE 103 mg/dL (75-110); TOTAL PROTEIN 7.8 g/dL (6.3-8.2)
[2019-11-06 17:22] LABS: HEMOGLOBIN 7.3 g/dL (12.0-15.5)
[2019-11-06 17:23] LABS: MEAN CORPUSCULAR VOLUME 130 fl (80-97)
[2019-11-06 17:38] LABS: ABSOLUTE LYMPHOCYTES# (MANUAL) 2.6 10^3/uL (0.5-4.7); ABSOLUTE MONOCYTES # (MANUAL) 0.4 10^3/uL (0.1-1.4); ANISOCYTOSIS 2+; BASOPHILS % (MANUAL) 0 % (0-2); EOSINOPHILS % (MANUAL) 3 % (0-6); LYMPHOCYTES % (MANUAL) 48 % (13-45); MONOCYTES % (MANUAL) 7 % (3-13); NUCLEATED RED BLOOD CELLS 10 /100 WBC (0); OVALOCYTES SLIGHT; POIKILOCYTOSIS 1+; POLYCHROMASIA SLIGHT; SCHISTOCYTES SLIGHT; SEGMENTED NEUTROPHILS % (MAN) 42 % (42-78); SMUDGE CELLS PRESENT; TARGET CELLS 1+; TOTAL CELLS COUNTED 100
[2019-11-06 17:39] LABS: PLATELET CLUMPS PRESENT; PLATELET COMMENT ADEQUATE; PLATELET LARGE PRESENT
[2019-11-06] MEDS ORDERED: HYDROCODONE/ACETAMINOPHEN 5-325 MG (6 TAB/ER DISP) PO PRN (20:17)
[2019-11-06 21:06] VITALS: BP 106/63
--- NOTE | 2019-11-07 07:44 | EKG REPORT ---
SEVERITY:- NORMAL ECG - SINUS RHYTHM : Confirmed by: No Boss MD 07-Nov-2019 07:43:42
== END 2019-11-06 21:00 | disposition home or self-care (01) ==
LOC: ER 14:18
DX: G89.4 Chronic pain syndrome (principal); D57.1 Sickle-cell disease without crisis; R07.9 Chest pain, unspecified; R11.0 Nausea; Z86.14 Personal history of Methicillin resistant Staphylococcus aureus infection
CPT/HCPCS: 93005; 36591; 96376; 99284; 96361; 96374; 96375; 36415; 82550; 85025; 85045; 80053; 84484; 71046; 93010; J1200; J1170; J2405; J7030; J1642

== ENCOUNTER 2019-11-29 06:41 | Inpatient (IN) | payer MEDICAID ==
[2019-11-29] MEDS ORDERED: RINGERS SOLUTION,LACTATED 1,000 ML IV ONE (07:39)
[2019-11-29] MEDS ORDERED: HYDROMORPHONE HCL INJ/PF 2 MG/ML AMPULE IV ONE ×2 (07:47→08:50)
[2019-11-29] MEDS ORDERED: DIPHENHYDRAMINE HCL 50 MG CAPSULE PO ONE (07:48)
--- NOTE | 2019-11-29 07:49 | ER Document Report ---
ED General - General Chief Complaint: Sickle Cell Crisis Stated Complaint: SICKLE CELL CRISIS Time Seen by Provider: 11/29/19 07:38 Primary Care Provider: HOMA BARRAZA MD [Primary Care Provider] - Follow up as needed Notes: 49-year-old female presents with chest pain hip pain leg pain arm pain typical of sickle cell crises, x2 days moderate worse with movement not better with long and short acting oxycodone at home. History of acute chest syndrome x1. Patient of Dr. Viveros. No fevers. - Related Data Allergies/Adverse Reactions: doxycycline [Doxycycline] Allergy (Severe, Verified 08/12/19 19:02) Home Medications: hydroxurea, gabapentin, oxycodone prn, jadenu, vitamin E, D\. oxycontin Past Medical History - General Information source: Patient - Social History Smoking Status: Never Smoker Family History: Reviewed & Not Pertinent Patient has homicidal ideation: No - Past Medical History Cardiac Medical History: Reports: Hx Heart Murmur Denies: Hx Atrial Fibrillation, Hx Congestive Heart Failure, Hx Coronary Artery Disease, Hx Heart Attack, Hx Hypercholesterolemia, Hx Hypertension, Hx Peripheral Vascular Disease Pulmonary Medical History: Denies: Hx Tuberculosis Neurological Medical History: Denies: Hx Seizures Renal/ Medical History: Reports: Hx Ovarian Cysts. 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 Denies: Hx HIV Past Surgical History: Reports: Hx Appendectomy, Hx Section, Hx Cholecystectomy, Hx Orthopedic Surgery - R knee, Hx Tonsillectomy. Denies: Hx Bowel Surgery, Hx Coronary Artery Bypass Graft, Hx Gastric Bypass Surgery, Hx Herniorrhaphy, Hx Mastectomy, Hx Pacemaker, Hx Tubal Ligation - Immunizations Immunizations up to date: Yes Hx Diphtheria, Pertussis, Tetanus Vaccination: Yes Hx Pneumococcal Vaccination: 03/20/14 Review of Systems - Review of Systems Notes: REVIEW OF SYSTEMS GEN: Denies fever, chills, weight loss ENT: Denies sore throat, nasal discharge, ear pain EYES: Denies blurry vision, eye pain, discharge CV: Pain nonradiating RESP: Denies cough, shortness of breath, wheezing GI: Denies abdominal pain, nausea, vomiting, diarrhea MSK HPI SKIN: Denies rash, skin lesions LYMPH: Denies swollen glands/lymph nodes NEURO: Denies headache, focal weakness or numbness, dizziness PSYCH: Denies depression, suicidal or homicidal ideation PHYSICAL EXAMINATION General: No acute distress, well-nourished Head: Atraumatic, normocephalic ENT: Mouth normal, oropharynx moist, no exudates or tonsillar enlargement Eyes: Conjunctiva normal, pupils equal, lids normal Neck: No JVD, supple, no guarding CVS: Normal rate, regular rhythm, no murmurs Resp: No resp distress, equal and normal breath sounds bilaterally GI: Nondistended, soft, no tenderness to palpation, no rebound or guarding Ext: No deformities, no edema, normal range of motion in upper and lower ext Back: No CVA or midline TTP Skin: No rash, warm Lymphatic: No lymphadeopathy noted Neuro: Awake, alert. Face symmetric. GCS 15. Physical Exam - Vital signs Vitals: Temp 98.9 F 11/29/19 06:54 Course - Re-evaluation Re-evalutation: 11/29/19 07:49 Patient presents with signs and symptoms of vaso-occlusive crisis We will rule out acute chest and acute coronary syndrome Discussed her meds normally gets Dilaudid Benadryl. Will order this, x2, hydrate give oxygen etc. rule out aplastic crisis 11/29/19 09:27 Negative chest x-ray negative hemoglobin is at baseline recheck pending After 2 dose pain meds patient is still in significant pain will be admitted. Discussed large mallory - Vital Signs Vital signs: Temp Pulse Resp BP Pulse Ox 98.9 F 85 16 112/58 L 100 11/29/19 06:59 11/29/19 06:59 11/29/19 06:59 11/29/19 06:59 11/29/19 06:59 - Laboratory Result Diagrams: 11/29/19 08:00 11/29/19 08:00 Laboratory results interpreted by me: 11/29/19 11/29/19 08:00 08:00 RBC 1.56 L Hgb 7.3 L Hct 20.5 L MCV 131 H MCH 46.6 H RDW 19.9 H Sodium 136.8 L Glucose 119 H - Diagnostic Test Radiology reviewed: Image reviewed, Reports reviewed - EKG Interpretation by Me EKG shows normal: Sinus rhythm Rate: Normal Rhythm: NSR - No ST or T wave changes concerning for ischemia Discharge - Discharge Clinical Impression: Vaso-occlusive pain due to sickle cell disease Condition: Good Disposition: ADMITTED OBSERVATION Admitting Provider: Da Unit Admitted: Medical Floor Referrals: HOMA BARRAZA MD [Primary Care Provider] - Follow up as needed
--- NOTE | 2019-11-29 08:29 | RADIOLOGY REPORT (SQ) ---
EXAM DESCRIPTION: CHEST SINGLE VIEW IMAGES COMPLETED DATE/TIME: 11/29/2019 8:00 am REASON FOR STUDY: Sickle cell r/o infiltr COMPARISON: 11/06/2019 EXAM PARAMETERS: NUMBER OF VIEWS: One view. TECHNIQUE: Single frontal radiographic view of the chest acquired. RADIATION DOSE: NA LIMITATIONS: None. FINDINGS: LUNGS AND PLEURA: No opacities, masses or pneumothorax. No pleural effusion. MEDIASTINUM AND HILAR STRUCTURES: No masses. Contour normal. HEART AND VASCULAR STRUCTURES: Borderline cardiomegaly, unchanged finding. Mild pulmonary vascular redistribution (cephalization). BONES: No acute findings. HARDWARE: Left Fjymah-M-Ixvo catheter, unchanged finding. OTHER: No other significant finding. IMPRESSION: 1. NO ACUTE RADIOGRAPHIC FINDING IN THE CHEST. 2. Borderline cardiomegaly, stable finding. TECHNICAL DOCUMENTATION: JOB ID: [id number] 2010 [employer]- All Rights Reserved Reading location - IP/workstation name: [email or web address]
[2019-11-29 08:37] LABS: ANION GAP 10 (5-19); BLOOD UREA NITROGEN 14 mg/dL (7-20); CALCIUM 9.3 mg/dL (8.4-10.2); CARBON DIOXIDE 23 mmol/L (22-30); CHLORIDE 104 mmol/L (98-107); GLUCOSE 119 mg/dL (75-110); POTASSIUM 3.6 mmol/L (3.6-5.0)
[2019-11-29 08:40] LABS: HEMATOCRIT 20.5 % (36.0-47.0); MEAN CORPUSCULAR HEMOGLOBIN 46.6 pg (27.0-33.4); MEAN CORPUSCULAR HGB CONC 35.4 g/dL (32.0-36.0); MEAN CORPUSCULAR VOLUME 131 fl (80-97); PLATELET COUNT 243 10^3/uL (150-450); RED BLOOD COUNT 1.56 10^6/uL (3.72-5.28); RED CELL DISTRIBUTION WIDTH 19.9 % (11.5-14.0); WHITE BLOOD COUNT 5.1 10^3/uL (4.0-10.5)
[2019-11-29 08:45] LABS: HEMOGLOBIN 7.3 g/dL (12.0-15.5)
[2019-11-29 08:52] LABS: ABSOLUTE LYMPHOCYTES# (MANUAL) 2.2 10^3/uL (0.5-4.7); ABSOLUTE MONOCYTES # (MANUAL) 0.3 10^3/uL (0.1-1.4); BASOPHILS % (MANUAL) 1 % (0-2); EOSINOPHILS % (MANUAL) 5 % (0-6); LYMPHOCYTES % (MANUAL) 43 % (13-45); MONOCYTES % (MANUAL) 6 % (3-13); NUCLEATED RED BLOOD CELLS 31 /100 WBC (0); SEGMENTED NEUTROPHILS % (MAN) 45 % (42-78); TOTAL CELLS COUNTED 100
[2019-11-29 08:55] LABS: ANISOCYTOSIS 2+; OVALOCYTES SLIGHT; PLATELET COMMENT ADEQUATE; POIKILOCYTOSIS 1+; SICKLE RED CELLS SLIGHT; TARGET CELLS 1+
[2019-11-29 09:44] LABS: RETICULOCYTE COUNT (AUTO) 7.73 % (0.66-2.85)
[2019-11-29] MEDS: HYDROMORPHONE HCL INJ/PF 2 MG/ML AMPULE IV PRN ×3 (16:49→22:04)
[2019-11-29] MEDS: PROMETHAZINE HCL INJ 25 MG/1 ML VIAL IV PRN ×2 (16:49→23:58)
[2019-11-29] MEDS: DIPHENHYDRAMINE HCL 50 MG/ML VIAL IV PRN ×2 (16:49→22:01)
[2019-11-29] MEDS: 1/2 NORMAL SALINE 1,000 ML IV PRN ×2 (16:50→22:11)
[2019-11-29] MEDS: HYDROXYUREA 500 MG CAPSULE PO SCH (17:21)
--- NOTE | 2019-11-29 17:28 | EKG REPORT ---
SEVERITY:- NORMAL ECG - SINUS RHYTHM : Confirmed by: No Boss MD 29-Nov-2019 17:27:25
[2019-11-29] MEDS: DEFERASIROX 360 MG PO SCH (19:03)
--- NOTE | 2019-11-29 20:17 | PDOC H&P ---
History of Present Illness Admission Date/PCP: 11/29/19 09:36 HOMA BARRAZA MD History of Present Illness: WILLIE ALAN is a 49 year old female, She has a history of sickle cell disease, sickle cell anemia, she is well-known to this hospital, multiple admission for vaso-occlusive bone pain crisis, she is opioid dependent, she came emergency room earlier today for evaluation of body pains, she has pain involving extremities, the torso, she also complained of chest pain but the chest pain is in the setting of generalized body pains. The twelve-lead EKG that was done did not show any ST segment deviation that suggest ischemia. 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 Past Surgical History Past Surgical History: Reports: Appendectomy, Section, Cholecystectomy, Orthopedic Surgery - R knee, Tonsillectomy Social History Smoking Status: Never Smoker Frequency of Alcohol Use: None Hx Recreational Drug Use: No Drugs: None Hx Prescription Drug Abuse: No Family History Family History: Reviewed & Not Pertinent Parental Family History Reviewed: Yes Children Family History Reviewed: Yes Sibling(s) Family History Reviewed.: Yes Medication/Allergy Home Medications: Deferasirox [Jadenu] 360 mg PO DAILY 08/13/19 Epoetin Federico [Procrit Inj 20,000 Unit/1 ml Vial (Renal)] 60,000 unit IJ FR@1000 08/13/19 Ergocalciferol (Vitamin D2) [Vitamin D2] 50 mcg PO WE@1000 08/13/19 Folic Acid 1 mg PO DAILY 08/13/19 Gabapentin [Neurontin 300 mg Capsule] 300 mg PO Q12 08/13/19 Hydroxyurea [Hydrea 500 mg Capsule] 500 mg PO TID 08/13/19 Oxycodone HCl [Oxy-Ir 5 mg Tablet] 10 mg PO Q6HP PRN 08/13/19 Cholecalciferol (Vitamin D3) [Vitamin D3 1000 Unit Tablet] 5,000 unit PO DAILY 11/29/19 Oxycodone Myristate [Xtampza ER] 27 mg PO Q12 11/29/19 Allergies/Adverse Reactions: doxycycline [Doxycycline] Allergy (Severe, Verified 08/12/19 19:02) Review of Systems Constitutional: ABSENT: chills, fever(s), headache(s), weight gain, weight loss Eyes: ABSENT: visual disturbances Ears: ABSENT: hearing changes Cardiovascular: ABSENT: chest pain, dyspnea on exertion, edema, orthropnea, palpitations Respiratory: ABSENT: cough, hemoptysis Gastrointestinal: ABSENT: abdominal pain, constipation, diarrhea, hematemesis, hematochezia, nausea, vomiting Genitourinary: ABSENT: dysuria, hematuria Musculoskeletal: PRESENT: back pain Integumentary: ABSENT: rash, wounds Neurological: ABSENT: abnormal gait, abnormal speech, confusion, dizziness, focal weakness, syncope Psychiatric: ABSENT: anxiety, depression, homidical ideation, suicidal ideation Endocrine: ABSENT: cold intolerance, heat intolerance, menstrual abnormalities, polydipsia, polyuria Physical Exam Vital Signs: Temp Pulse Resp BP Pulse Ox 98.2 F 85 18 101/63 100 11/29/19 15:30 11/29/19 19:00 11/29/19 15:30 11/29/19 15:30 11/29/19 15:30 Intake & Output 11/28/19 11/29/19 11/30/19 06:59 06:59 06:59 Intake Total 1222 Balance 1222 Weight 61.2 kg General appearance: PRESENT: no acute distress, well-developed, well-nourished Head exam: PRESENT: atraumatic, normocephalic Eye exam: PRESENT: conjunctiva pink, EOMI, PERRLA Ear exam: PRESENT: normal external ear exam Mouth exam: PRESENT: moist, tongue midline Neck exam: PRESENT: full ROM Respiratory exam: PRESENT: clear to auscultation carolyn Cardiovascular exam: PRESENT: RRR, +S1, +S2 Vascular exam: PRESENT: normal capillary refill GI/Abdominal exam: PRESENT: normal bowel sounds, soft Rectal exam: PRESENT: deferred Musculoskeletal exam: PRESENT: tenderness Neurological exam: PRESENT: alert, CN II-XII grossly intact Psychiatric exam: PRESENT: appropriate affect, normal mood Skin exam: PRESENT: dry, intact, warm Results Laboratory Results: 11/29/19 08:00 11/29/19 08:00 11/29/19 11/29/19 11/29/19 08:00 08:00 08:00 WBC 5.1 RBC 1.56 L Hgb 7.3 L Hct 20.5 L MCV 131 H MCH 46.6 H MCHC 35.4 RDW 19.9 H Plt Count 243 Seg Neutrophils % Not Reportable Retic Count (auto) 7.73 H Sodium 136.8 L Potassium 3.6 Chloride 104 Carbon Dioxide 23 Anion Gap 10 BUN 14 Creatinine 0.69 Est GFR ( Amer) > 60 Glucose 119 H Calcium 9.3 Blood Type O POSITIVE Antibody Screen NEGATIVE 11/29/19 08:00 Troponin I < 0.012 Impressions: Chest X-Ray 11/29/19 07:38 IMPRESSION: 1. NO ACUTE RADIOGRAPHIC FINDING IN THE CHEST. 2. Borderline cardiomegaly, stable finding. 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 Is this a current diagnosis for this admission?: Yes Plan: Start pain medication, IV fluids, consult donor technician (2) Sickle cell anemia Qualifiers: Sickle-cell associated disorders: with unspecified crisis Qualified Code(s): D57.00 - Hb-SS disease with crisis, unspecified; D57.0 - Hb-SS disease with crisis Is this a current diagnosis for this admission?: Yes (3) Secondary hemochromatosis Is this a current diagnosis for this admission?: Yes
[2019-11-29] MEDS: ENOXAPARIN SODIUM INJ 40 MG/0.4 ML DISP.SYRIN SUBCUT SCH (20:45)
[2019-11-29 20:57] LABS: ALBUMIN 4.2 g/dL (3.5-5.0); ALKALINE PHOSPHATASE 103 U/L (38-126); ASPARTATE AMINO TRANSFERASE 50 U/L (14-36); BILIRUBIN,DIRECT 0.1 mg/dL (0.0-0.4); BILIRUBIN,TOTAL 3.7 mg/dL (0.2-1.3); TOTAL PROTEIN 6.8 g/dL (6.3-8.2)
[2019-11-29 20:58] LABS: CREATINE KINASE < 20 U/L (30-135)
[2019-11-29 21:12] LABS: CREATINE KINASE MB < 0.22 ng/mL (<4.55); TROPONIN I < 0.012 ng/mL
[2019-11-29] MEDS ORDERED: OXYCODONE MYRISTATE 27 MG PO SCH (22:00)
[2019-11-29] MEDS: GABAPENTIN 300 MG CAPSULE PO SCH (22:01)
[2019-11-30] MEDS: HYDROMORPHONE HCL INJ/PF 2 MG/ML AMPULE IV PRN ×8 (00:17→21:48)
[2019-11-30] MEDS: DIPHENHYDRAMINE HCL 50 MG/ML VIAL IV PRN ×4 (03:06→18:33)
[2019-11-30] MEDS: 1/2 NORMAL SALINE 1,000 ML IV PRN ×5 (04:29→23:28)
[2019-11-30 07:17] LABS: HEMATOCRIT 18.5 % (36.0-47.0); MEAN CORPUSCULAR HEMOGLOBIN 45.9 pg (27.0-33.4); MEAN CORPUSCULAR HGB CONC 34.5 g/dL (32.0-36.0); MEAN CORPUSCULAR VOLUME 133 fl (80-97); PLATELET COUNT 189 10^3/uL (150-450); RED BLOOD COUNT 1.39 10^6/uL (3.72-5.28); RED CELL DISTRIBUTION WIDTH 19.5 % (11.5-14.0); WHITE BLOOD COUNT 5.1 10^3/uL (4.0-10.5)
[2019-11-30 07:25] LABS: ALKALINE PHOSPHATASE 104 U/L (38-126); ANION GAP 6 (5-19); ASPARTATE AMINO TRANSFERASE 51 U/L (14-36); BILIRUBIN,DIRECT 0.4 mg/dL (0.0-0.4); BILIRUBIN,TOTAL 3.8 mg/dL (0.2-1.3); BLOOD UREA NITROGEN 11 mg/dL (7-20); CALCIUM 8.6 mg/dL (8.4-10.2); CARBON DIOXIDE 25 mmol/L (22-30); CHLORIDE 106 mmol/L (98-107); CREATINE KINASE 21 U/L (30-135); GLUCOSE 111 mg/dL (75-110); POTASSIUM 4.4 mmol/L (3.6-5.0); TOTAL PROTEIN 6.9 g/dL (6.3-8.2)
[2019-11-30 07:37] LABS: HEMOGLOBIN 6.4 g/dL (12.0-15.5)
[2019-11-30 07:40] LABS: ABSOLUTE LYMPHOCYTES# (MANUAL) 2.8 10^3/uL (0.5-4.7); ABSOLUTE MONOCYTES # (MANUAL) 0.1 10^3/uL (0.1-1.4); BASOPHILS % (MANUAL) 1 % (0-2); EOSINOPHILS % (MANUAL) 4 % (0-6); LYMPHOCYTES % (MANUAL) 53 % (13-45); MONOCYTES % (MANUAL) 2 % (3-13); NUCLEATED RED BLOOD CELLS 16 /100 WBC (0); SEGMENTED NEUTROPHILS % (MAN) 39 % (42-78); TOTAL CELLS COUNTED 100
[2019-11-30 07:45] LABS: ANISOCYTOSIS 2+; OVALOCYTES SLIGHT; POIKILOCYTOSIS 2+; POLYCHROMASIA 2+
[2019-11-30 07:46] LABS: HOWELL-JOLLY BODIES PRESENT; PAPPENHEIMER BODIES PRESENT; PLATELET COMMENT ADEQUATE; SCHISTOCYTES SLIGHT; SICKLE RED CELLS SLIGHT; TARGET CELLS 1+; TEAR DROP CELLS 1+
[2019-11-30 07:48] LABS: CREATINE KINASE MB < 0.22 ng/mL (<4.55); TROPONIN I < 0.012 ng/mL
--- NOTE | 2019-11-30 08:04 | PDOC CONSULTATION ---
Consultation Consult Date: 11/30/19 Attending physician:: HOMA BARRAZA Provider Consulted: BLAZE CARTAGENA Consult reason:: Sickle cell disease with crisis History of Present Illness Admission Date/PCP: 11/29/19 09:36 HOMA BARRAZA MD Patient complains of: Severe pain crisis History of Present Illness: WILLIE ALAN is a 49 year old female with known history of sickle cell disease with frequent crisis here with another crisis, currently on appropriate pain medication that she usually is on, seems to be controlling pain to some extent, getting IV fluids, hemoglobin is dropping but in the past she has had multiple antibodies and we have been very conservative with transfusions, probably only will transfuse if it gets into the 4-5 range Past Medical History Cardiac Medical History: Reports: Heart Murmur Denies: Atrial Fibrillation, Congestive Heart Failure, Coronary Artery Diseas e, Myocardial Infarction, Hyperlipidema, Hypertension, Peripheral Vascular Disease Pulmonary Medical History: Denies: Tuberculosis Neurological Medical History: Denies: Seizures Malignancy Medical History: Denies: Leukemia Musculoskeltal Medical History: Denies: Arthritis, Fibromyalgia Psychiatric Medical History: Denies: Depression Hematology: Reports: Anemia - Sickle Cell, Sickle Cell Disease Infectious Medical History: 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 Denies: HIV Past Surgical History Past Surgical History: Reports: Appendectomy, Section, Cholecystectomy, Orthopedic Surgery - R knee, Tonsillectomy Denies: Amputation, Coronary Artery Bypass Graft, Gastric Bypass Surgery, Herniorrhaphy, Mastectomy, Pacemaker, Tubal Ligation Social History Smoking Status: Never Smoker Frequency of Alcohol Use: None Hx Recreational Drug Use: No Drugs: None Hx Prescription Drug Abuse: No - Advance Directive Resuscitation Status: Full Code Family History Family History: Reviewed & Not Pertinent Parental Family History Reviewed: Yes Children Family History Reviewed: Yes Sibling(s) Family History Reviewed.: Yes Medication/Allergy Home Medications: Deferasirox [Jadenu] 360 mg PO DAILY 08/13/19 Epoetin Federico [Procrit Inj 20,000 Unit/1 ml Vial (Renal)] 60,000 unit IJ FR@1000 08/13/19 Ergocalciferol (Vitamin D2) [Vitamin D2] 50 mcg PO WE@1000 08/13/19 Folic Acid 1 mg PO DAILY 08/13/19 Gabapentin [Neurontin 300 mg Capsule] 300 mg PO Q12 08/13/19 Hydroxyurea [Hydrea 500 mg Capsule] 500 mg PO TID 08/13/19 Oxycodone HCl [Oxy-Ir 5 mg Tablet] 10 mg PO Q6HP PRN 08/13/19 Cholecalciferol (Vitamin D3) [Vitamin D3 1000 Unit Tablet] 5,000 unit PO DAILY 11/29/19 Oxycodone Myristate [Xtampza ER] 27 mg PO Q12 11/29/19 Allergies/Adverse Reactions: doxycycline [Doxycycline] Allergy (Severe, Verified 08/12/19 19:02) Review of Systems Constitutional: ABSENT: chills, fever(s), headache(s), weight gain, weight loss Eyes: ABSENT: visual disturbances Ears: ABSENT: hearing changes Cardiovascular: ABSENT: chest pain, dyspnea on exertion, edema, orthropnea, palpitations Respiratory: ABSENT: cough, hemoptysis Gastrointestinal: ABSENT: abdominal pain, constipation, diarrhea, hematemesis, hematochezia, nausea, vomiting Genitourinary: ABSENT: dysuria, hematuria Musculoskeletal: ABSENT: joint swelling Integumentary: ABSENT: rash, wounds Neurological: ABSENT: abnormal gait, abnormal speech, confusion, dizziness, focal weakness, syncope Psychiatric: ABSENT: anxiety, depression, homidical ideation, suicidal ideation Endocrine: ABSENT: cold intolerance, heat intolerance, polydipsia, polyuria Hematologic/Lymphatic: ABSENT: easy bleeding, easy bruising Physical Exam Vital Signs: Temp Pulse Resp BP Pulse Ox 98.2 F 67 20 98/61 L 100 11/30/19 03:16 11/30/19 07:00 11/30/19 03:16 11/30/19 03:16 11/30/19 03:16 Intake & Output 11/29/19 11/30/19 12/01/19 06:59 06:59 06:59 Intake Total 3742 Output Total 1300 Balance 2442 Weight 61.2 kg 63.2 kg General appearance: PRESENT: no acute distress, well-developed, well-nourished Head exam: PRESENT: atraumatic, normocephalic Eye exam: PRESENT: conjunctiva pink, EOMI, PERRLA. ABSENT: scleral icterus Ear exam: PRESENT: normal external ear exam Mouth exam: PRESENT: moist, tongue midline Neck exam: ABSENT: carotid bruit, JVD, lymphadenopathy, thyromegaly Respiratory exam: PRESENT: clear to auscultation carolyn. ABSENT: rales, rhonchi, wheezes Cardiovascular exam: PRESENT: RRR. ABSENT: diastolic murmur, rubs, systolic murmur Pulses: PRESENT: normal dorsalis pedis pul Vascular exam: PRESENT: normal capillary refill GI/Abdominal exam: PRESENT: normal bowel sounds, soft. ABSENT: distended, guarding, mass, organolmegaly, rebound, tenderness Rectal exam: PRESENT: deferred Extremities exam: PRESENT: full ROM. ABSENT: calf tenderness, clubbing, pedal edema Neurological exam: PRESENT: alert, awake, oriented to person, oriented to place, oriented to time, oriented to situation, CN II-XII grossly intact. ABSENT: motor sensory deficit Psychiatric exam: PRESENT: appropriate affect, normal mood. ABSENT: homicidal ideation, suicidal ideation Skin exam: PRESENT: dry, intact, warm. ABSENT: cyanosis, rash Results Laboratory Results: 11/30/19 06:30 11/30/19 06:30 11/29/19 11/29/19 11/29/19 08:00 08:00 08:00 WBC 5.1 RBC 1.56 L Hgb 7.3 L Hct 20.5 L MCV 131 H MCH 46.6 H MCHC 35.4 RDW 19.9 H Plt Count 243 Seg Neutrophils % Not Reportable Retic Count (auto) 7.73 H Sodium 136.8 L Potassium 3.6 Chloride 104 Carbon Dioxide 23 Anion Gap 10 BUN 14 Creatinine 0.69 Est GFR ( Amer) > 60 Glucose 119 H Calcium 9.3 Total Bilirubin AST Alkaline Phosphatase Total Protein Albumin Blood Type O POSITIVE Antibody Screen NEGATIVE 11/29/19 11/30/19 11/30/19 20:33 06:30 06:30 WBC 5.1 RBC 1.39 L Hgb 6.4 L Hct 18.5 L MCV 133 H MCH 45.9 H MCHC 34.5 RDW 19.5 H Plt Count 189 Seg Neutrophils % Not Reportable Retic Count (auto) Sodium 136.5 L Potassium 4.4 Chloride 106 Carbon Dioxide 25 Anion Gap 6 BUN 11 Creatinine 0.70 Est GFR ( Amer) > 60 Glucose 111 H Calcium 8.6 Total Bilirubin 3.7 H 3.8 H AST 50 H 51 H Alkaline Phosphatase 103 104 Total Protein 6.8 6.9 Albumin 4.2 4.0 Blood Type Antibody Screen 11/29/19 11/29/19 11/29/19 08:00 20:33 20:33 Creatine Kinase < 20 L CK-MB (CK-2) < 0.22 Troponin I < 0.012 < 0.012 11/30/19 11/30/19 06:30 06:30 Creatine Kinase 21 L CK-MB (CK-2) < 0.22 Troponin I < 0.012 Impressions: Chest X-Ray 11/29/19 07:38 IMPRESSION: 1. NO ACUTE RADIOGRAPHIC FINDING IN THE CHEST. 2. Borderline cardiomegaly, stable finding. Assessment & Plan - Diagnosis (1) Hb-SS disease with vaso-occlusive crisis Is this a current diagnosis for this admission?: Yes Plan: Sickle cell disease with pain crisis, continue IV fluids and IV pain medication, added K pad for comfort, will follow (2) Anemia, sickle cell with crisis Is this a current diagnosis for this admission?: Yes Plan: Anemia second to sickle cell disease, hold transfusion unless hemoglobin gets into the 4-5 range, multiple antibodies on previous checks - Time Time Spent: 50 to 70 Minutes
[2019-11-30] MEDS: HYDROXYUREA 500 MG CAPSULE PO SCH ×3 (09:08→18:32)
[2019-11-30] MEDS: FOLIC ACID 1 MG TABLET PO SCH (09:08)
[2019-11-30] MEDS: CHOLECALCIFEROL (D3) 1,000 UNIT (25 MCG) TABLET PO SCH (09:09)
[2019-11-30] MEDS: GABAPENTIN 300 MG CAPSULE PO SCH ×2 (09:09→21:48)
[2019-11-30] MEDS: OXYCODONE HCL IR 5 MG TABLET PO PRN ×2 (09:09→18:32)
[2019-11-30] MEDS: PROMETHAZINE HCL INJ 25 MG/1 ML VIAL IV PRN ×3 (09:10→18:34)
[2019-11-30] MEDS: ENOXAPARIN SODIUM INJ 40 MG/0.4 ML DISP.SYRIN SUBCUT SCH (09:10)
[2019-11-30] MEDS: DEFERASIROX 360 MG PO SCH (09:11)
[2019-11-30] MEDS: EPOETIN ALFA-EPBX 40,000 UNIT/ML VIAL (NON-ESRD) SUBCUT SCH (09:13)
[2019-11-30] MEDS ORDERED: [UNRECOGNIZED DRUG - OTHER] IJ SCH (10:00)
[2019-11-30] MEDS ORDERED: DEFERASIROX 360 MG PO SCH (10:00)
[2019-11-30] MEDS ORDERED: EPOETIN ALFA IJ SCH (10:00)
[2019-11-30 15:16] LABS: CREATINE KINASE MB < 0.22 ng/mL (<4.55); TROPONIN I < 0.012 ng/mL
--- NOTE | 2019-11-30 22:33 | PDOC PROGRESS REPORT ---
Subjective Progress Note for:: 11/30/19 Subjective:: Patient alert seen by the bedside admitted for the management of vaso-occlusive pain crisis Reason For Visit: VASO-OCCLUSIVE PAIN DUE TO SICKLE CELL DISEASE Physical Exam Vital Signs: Temp Pulse Resp BP Pulse Ox 98.1 F 80 17 99/68 L 98 11/30/19 20:08 11/30/19 20:08 11/30/19 20:08 11/30/19 20:08 11/30/19 20:08 Intake & Output 11/29/19 11/30/19 12/01/19 06:59 06:59 06:59 Intake Total 3742 2843 Output Total 1300 1000 Balance 2442 1843 Weight 61.2 kg 63.2 kg General appearance: PRESENT: no acute distress Respiratory exam: PRESENT: clear to auscultation carolyn Cardiovascular exam: PRESENT: +S1, +S2 GI/Abdominal exam: PRESENT: soft Neurological exam: PRESENT: alert Results Laboratory Results: 11/30/19 06:30 11/30/19 06:30 11/30/19 11/30/19 06:30 06:30 WBC 5.1 RBC 1.39 L Hgb 6.4 L Hct 18.5 L MCV 133 H MCH 45.9 H MCHC 34.5 RDW 19.5 H Plt Count 189 Seg Neutrophils % Not Reportable Sodium 136.5 L Potassium 4.4 Chloride 106 Carbon Dioxide 25 Anion Gap 6 BUN 11 Creatinine 0.70 Est GFR ( Amer) > 60 Glucose 111 H Calcium 8.6 Total Bilirubin 3.8 H AST 51 H Alkaline Phosphatase 104 Total Protein 6.9 Albumin 4.0 11/29/19 11/29/19 11/29/19 08:00 20:33 20:33 Creatine Kinase < 20 L CK-MB (CK-2) < 0.22 Troponin I < 0.012 < 0.012 11/30/19 11/30/19 11/30/19 06:30 06:30 14:30 Creatine Kinase 21 L 20 L CK-MB (CK-2) < 0.22 Troponin I < 0.012 11/30/19 14:30 Creatine Kinase CK-MB (CK-2) < 0.22 Troponin I < 0.012 Impressions: Chest X-Ray 11/29/19 07:38 IMPRESSION: 1. NO ACUTE RADIOGRAPHIC FINDING IN THE CHEST. 2. Borderline cardiomegaly, stable finding. 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 Is this a current diagnosis for this admission?: Yes Plan: Continue pain management with Dilaudid, IV fluid (2) Sickle cell anemia Qualifiers: Sickle-cell associated disorders: with unspecified crisis Qualified Code(s): D57.00 - Hb-SS disease with crisis, unspecified; D57.0 - Hb-SS disease with crisis Is this a current diagnosis for this admission?: Yes (3) Secondary hemochromatosis Is this a current diagnosis for this admission?: Yes - Time Time Spent with patient: 15-24 minutes Level of Care: IMCU
[2019-12-01] MEDS: HYDROMORPHONE HCL INJ/PF 2 MG/ML AMPULE IV PRN ×7 (01:13→19:59)
[2019-12-01] MEDS: DIPHENHYDRAMINE HCL 50 MG/ML VIAL IV PRN ×4 (01:14→15:55)
[2019-12-01] MEDS: PROMETHAZINE HCL INJ 25 MG/1 ML VIAL IV PRN ×5 (03:23→21:53)
[2019-12-01] MEDS: 1/2 NORMAL SALINE 1,000 ML IV PRN ×4 (04:37→19:58)
[2019-12-01] MEDS: OXYCODONE HCL IR 5 MG TABLET PO PRN ×2 (07:25→14:43)
[2019-12-01] MEDS: CHOLECALCIFEROL (D3) 1,000 UNIT (25 MCG) TABLET PO SCH (09:39)
[2019-12-01] MEDS: FOLIC ACID 1 MG TABLET PO SCH (09:39)
[2019-12-01] MEDS: GABAPENTIN 300 MG CAPSULE PO SCH ×2 (09:39→21:53)
[2019-12-01] MEDS: ENOXAPARIN SODIUM INJ 40 MG/0.4 ML DISP.SYRIN SUBCUT SCH (09:40)
[2019-12-01] MEDS: HYDROXYUREA 500 MG CAPSULE PO SCH ×3 (09:40→17:12)
[2019-12-01] MEDS: DEFERASIROX 360 MG PO SCH (09:41)
--- NOTE | 2019-12-01 10:08 | PDOC PROGRESS REPORT ---
Subjective Progress Note for:: 12/01/19 Subjective:: Pain seems controlled, patient does have a lot of pain in the right hand, we discussed that this probably because of sickling there. Reason For Visit: VASO-OCCLUSIVE PAIN DUE TO SICKLE CELL DISEASE Physical Exam Vital Signs: Temp Pulse Resp BP Pulse Ox 97.9 F 76 18 95/54 L 98 12/01/19 07:46 12/01/19 07:46 12/01/19 07:46 12/01/19 07:46 12/01/19 07:46 Intake & Output 11/30/19 12/01/19 12/02/19 06:59 06:59 06:59 Intake Total 3742 5238 1000 Output Total 1300 3700 Balance 2442 1538 1000 Weight 63.2 kg 66.4 kg General appearance: PRESENT: no acute distress, well-developed, well-nourished Head exam: PRESENT: atraumatic, normocephalic Eye exam: PRESENT: conjunctiva pink, EOMI, PERRLA. ABSENT: scleral icterus Ear exam: PRESENT: normal external ear exam Mouth exam: PRESENT: moist, tongue midline Neck exam: ABSENT: carotid bruit, JVD, lymphadenopathy, thyromegaly Respiratory exam: PRESENT: clear to auscultation carolyn. ABSENT: rales, rhonchi, wheezes Cardiovascular exam: PRESENT: RRR. ABSENT: diastolic murmur, rubs, systolic murmur Pulses: PRESENT: normal dorsalis pedis pul Vascular exam: PRESENT: normal capillary refill GI/Abdominal exam: PRESENT: normal bowel sounds, soft. ABSENT: distended, guarding, mass, organolmegaly, rebound, tenderness Rectal exam: PRESENT: deferred Extremities exam: PRESENT: full ROM. ABSENT: calf tenderness, clubbing, pedal edema Neurological exam: PRESENT: alert, awake, oriented to person, oriented to place, oriented to time, oriented to situation, CN II-XII grossly intact. ABSENT: motor sensory deficit Psychiatric exam: PRESENT: appropriate affect, normal mood. ABSENT: homicidal ideation, suicidal ideation Skin exam: PRESENT: dry, intact, warm. ABSENT: cyanosis, rash Results Laboratory Results: 11/30/19 06:30 11/30/19 06:30 11/29/19 11/29/19 11/29/19 08:00 20:33 20:33 Creatine Kinase < 20 L CK-MB (CK-2) < 0.22 Troponin I < 0.012 < 0.012 11/30/19 11/30/19 11/30/19 06:30 06:30 14:30 Creatine Kinase 21 L 20 L CK-MB (CK-2) < 0.22 Troponin I < 0.012 11/30/19 14:30 Creatine Kinase CK-MB (CK-2) < 0.22 Troponin I < 0.012 Impressions: Chest X-Ray 11/29/19 07:38 IMPRESSION: 1. NO ACUTE RADIOGRAPHIC FINDING IN THE CHEST. 2. Borderline cardiomegaly, stable finding. Assessment & Plan - Diagnosis (1) Hb-SS disease with vaso-occlusive crisis Is this a current diagnosis for this admission?: Yes Plan: Continue current pain regimen (2) Anemia, sickle cell with crisis Is this a current diagnosis for this admission?: Yes Plan: Hemoglobin stable - Time Time Spent with patient: 15-24 minutes
--- NOTE | 2019-12-01 16:56 | PDOC PROGRESS REPORT ---
Subjective Progress Note for:: 12/01/19 Subjective:: Patient seen by the bedside, she is admitted for the management of vaso- occlusive bone pain crisis Reason For Visit: VASO-OCCLUSIVE PAIN DUE TO SICKLE CELL DISEASE Physical Exam Vital Signs: Temp Pulse Resp BP Pulse Ox 98.5 F 73 18 108/64 98 12/01/19 12:15 12/01/19 14:00 12/01/19 12:15 12/01/19 12:15 12/01/19 12:15 Intake & Output 11/30/19 12/01/19 12/02/19 06:59 06:59 06:59 Intake Total 3742 5238 2355 Output Total 1300 3700 1000 Balance 2442 1538 1355 Weight 63.2 kg 66.4 kg General appearance: PRESENT: no acute distress Eye exam: PRESENT: PERRLA Respiratory exam: PRESENT: clear to auscultation carolyn Cardiovascular exam: PRESENT: +S1, +S2 GI/Abdominal exam: PRESENT: soft Neurological exam: PRESENT: alert Results Laboratory Results: 11/30/19 06:30 11/30/19 06:30 11/29/19 11/29/19 11/29/19 08:00 20:33 20:33 Creatine Kinase < 20 L CK-MB (CK-2) < 0.22 Troponin I < 0.012 < 0.012 11/30/19 11/30/19 11/30/19 06:30 06:30 14:30 Creatine Kinase 21 L 20 L CK-MB (CK-2) < 0.22 Troponin I < 0.012 11/30/19 14:30 Creatine Kinase CK-MB (CK-2) < 0.22 Troponin I < 0.012 Impressions: Chest X-Ray 11/29/19 07:38 IMPRESSION: 1. NO ACUTE RADIOGRAPHIC FINDING IN THE CHEST. 2. Borderline cardiomegaly, stable finding. 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 Is this a current diagnosis for this admission?: Yes Plan: Continue pain management with Dilaudid, IV fluid (2) Sickle cell anemia Qualifiers: Sickle-cell associated disorders: with unspecified crisis Qualified Code(s): D57.00 - Hb-SS disease with crisis, unspecified; D57.0 - Hb-SS disease with crisis Is this a current diagnosis for this admission?: Yes (3) Secondary hemochromatosis Is this a current diagnosis for this admission?: Yes - Time Time Spent with patient: 25-34 minutes Level of Care: IMCU
[2019-12-02] MEDS: HYDROMORPHONE HCL INJ/PF 2 MG/ML AMPULE IV PRN ×9 (00:05→23:29)
[2019-12-02] MEDS: 1/2 NORMAL SALINE 1,000 ML IV PRN ×5 (00:56→20:52)
[2019-12-02] MEDS: DIPHENHYDRAMINE HCL 50 MG/ML VIAL IV PRN ×3 (02:22→17:22)
[2019-12-02] MEDS: PROMETHAZINE HCL INJ 25 MG/1 ML VIAL IV PRN ×3 (04:37→14:24)
[2019-12-02] MEDS: FOLIC ACID 1 MG TABLET PO SCH (09:22)
[2019-12-02] MEDS: ENOXAPARIN SODIUM INJ 40 MG/0.4 ML DISP.SYRIN SUBCUT SCH (09:22)
[2019-12-02] MEDS: HYDROXYUREA 500 MG CAPSULE PO SCH ×3 (09:22→17:22)
[2019-12-02] MEDS: CHOLECALCIFEROL (D3) 1,000 UNIT (25 MCG) TABLET PO SCH (09:22)
[2019-12-02] MEDS: GABAPENTIN 300 MG CAPSULE PO SCH ×2 (09:22→21:04)
[2019-12-02] MEDS: DEFERASIROX 360 MG PO SCH (09:22)
--- NOTE | 2019-12-02 13:50 | PDOC PROGRESS REPORT ---
Subjective Progress Note for:: 12/02/19 Subjective:: Patient seen by the bedside, she is admitted for the management of vaso- occlusive bone pain crisis Reason For Visit: VASO-OCCLUSIVE PAIN DUE TO SICKLE CELL DISEASE Physical Exam Vital Signs: Temp Pulse Resp BP Pulse Ox 98.3 F 80 10 L 91/51 L 99 12/02/19 11:26 12/02/19 11:26 12/02/19 11:26 12/02/19 11:26 12/02/19 11:26 Intake & Output 12/01/19 12/02/19 12/03/19 06:59 06:59 06:59 Intake Total 5238 5769 1200 Output Total 3700 4900 2300 Balance 1538 869 -1100 Weight 66.4 kg 63.1 kg General appearance: PRESENT: no acute distress Eye exam: PRESENT: PERRLA Respiratory exam: PRESENT: clear to auscultation carolyn Cardiovascular exam: PRESENT: +S1, +S2 Results Laboratory Results: 11/30/19 06:30 11/30/19 06:30 11/29/19 11/29/19 11/29/19 08:00 20:33 20:33 Creatine Kinase < 20 L CK-MB (CK-2) < 0.22 Troponin I < 0.012 < 0.012 11/30/19 11/30/19 11/30/19 06:30 06:30 14:30 Creatine Kinase 21 L 20 L CK-MB (CK-2) < 0.22 Troponin I < 0.012 11/30/19 14:30 Creatine Kinase CK-MB (CK-2) < 0.22 Troponin I < 0.012 Impressions: Chest X-Ray 11/29/19 07:38 IMPRESSION: 1. NO ACUTE RADIOGRAPHIC FINDING IN THE CHEST. 2. Borderline cardiomegaly, stable finding. 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 Is this a current diagnosis for this admission?: Yes Plan: Continue pain management with Dilaudid, IV fluid (2) Sickle cell anemia Qualifiers: Sickle-cell associated disorders: with unspecified crisis Qualified Code(s): D57.00 - Hb-SS disease with crisis, unspecified; D57.0 - Hb-SS disease with crisis Is this a current diagnosis for this admission?: Yes (3) Secondary hemochromatosis Is this a current diagnosis for this admission?: Yes - Time Time Spent with patient: 25-34 minutes Level of Care: IMCU
[2019-12-03] MEDS: 1/2 NORMAL SALINE 1,000 ML IV PRN ×5 (01:40→21:48)
[2019-12-03] MEDS: HYDROMORPHONE HCL INJ/PF 2 MG/ML AMPULE IV PRN ×8 (03:57→21:49)
[2019-12-03] MEDS: DIPHENHYDRAMINE HCL 50 MG/ML VIAL IV PRN ×4 (03:57→18:50)
[2019-12-03] MEDS: PROMETHAZINE HCL INJ 25 MG/1 ML VIAL IV PRN ×3 (06:11→20:44)
--- NOTE | 2019-12-03 08:05 | PDOC PROGRESS REPORT ---
Subjective Progress Note for:: 12/03/19 Subjective:: No acute events overnight, getting better, Dr. Ramirez suggested readdition of oxycontin to meds, we placed order Reason For Visit: VASO-OCCLUSIVE PAIN DUE TO SICKLE CELL DISEASE Physical Exam Vital Signs: Temp Pulse Resp BP Pulse Ox 99.6 F 82 16 102/63 100 12/03/19 03:05 12/03/19 07:00 12/03/19 03:05 12/03/19 03:05 12/03/19 03:05 Intake & Output 12/02/19 12/03/19 12/04/19 06:59 06:59 06:59 Intake Total 5769 5749 Output Total 1322 6650 Balance 869 -901 Weight 63.1 kg 65.8 kg General appearance: PRESENT: no acute distress, well-developed, well-nourished Head exam: PRESENT: atraumatic, normocephalic Eye exam: PRESENT: conjunctiva pink, EOMI, PERRLA. ABSENT: scleral icterus Ear exam: PRESENT: normal external ear exam Mouth exam: PRESENT: moist, tongue midline Neck exam: ABSENT: carotid bruit, JVD, lymphadenopathy, thyromegaly Respiratory exam: PRESENT: clear to auscultation carolyn. ABSENT: rales, rhonchi, wheezes Cardiovascular exam: PRESENT: RRR. ABSENT: diastolic murmur, rubs, systolic murmur Pulses: PRESENT: normal dorsalis pedis pul Vascular exam: PRESENT: normal capillary refill GI/Abdominal exam: PRESENT: normal bowel sounds, soft. ABSENT: distended, guarding, mass, organolmegaly, rebound, tenderness Rectal exam: PRESENT: deferred Extremities exam: PRESENT: full ROM. ABSENT: calf tenderness, clubbing, pedal edema Neurological exam: PRESENT: alert, awake, oriented to person, oriented to place, oriented to time, oriented to situation, CN II-XII grossly intact. ABSENT: motor sensory deficit Psychiatric exam: PRESENT: appropriate affect, normal mood. ABSENT: homicidal ideation, suicidal ideation Skin exam: PRESENT: dry, intact, warm. ABSENT: cyanosis, rash Results Laboratory Results: 11/30/19 06:30 11/30/19 06:30 11/29/19 11/29/19 11/29/19 08:00 20:33 20:33 Creatine Kinase < 20 L CK-MB (CK-2) < 0.22 Troponin I < 0.012 < 0.012 11/30/19 11/30/19 11/30/19 06:30 06:30 14:30 Creatine Kinase 21 L 20 L CK-MB (CK-2) < 0.22 Troponin I < 0.012 11/30/19 14:30 Creatine Kinase CK-MB (CK-2) < 0.22 Troponin I < 0.012 Impressions: Chest X-Ray 11/29/19 07:38 IMPRESSION: 1. NO ACUTE RADIOGRAPHIC FINDING IN THE CHEST. 2. Borderline cardiomegaly, stable finding. Assessment & Plan - Diagnosis (1) Hb-SS disease with vaso-occlusive crisis Is this a current diagnosis for this admission?: Yes Plan: Cont current rx, pt doing better, cont current supportive care. (2) Anemia, sickle cell with crisis Is this a current diagnosis for this admission?: Yes Plan: Hb stable - Time Time Spent with patient: 15-24 minutes
[2019-12-03] MEDS: FOLIC ACID 1 MG TABLET PO SCH (09:53)
[2019-12-03] MEDS: OXYCODONE HCL SR 10 MG TABLET PO SCH ×2 (09:53→21:48)
[2019-12-03] MEDS: ENOXAPARIN SODIUM INJ 40 MG/0.4 ML DISP.SYRIN SUBCUT SCH (09:53)
[2019-12-03] MEDS: GABAPENTIN 300 MG CAPSULE PO SCH ×2 (09:53→21:48)
[2019-12-03] MEDS: CHOLECALCIFEROL (D3) 1,000 UNIT (25 MCG) TABLET PO SCH (09:53)
[2019-12-03] MEDS: HYDROXYUREA 500 MG CAPSULE PO SCH ×3 (09:54→17:58)
[2019-12-03] MEDS: DEFERASIROX 360 MG PO SCH (09:54)
--- NOTE | 2019-12-03 21:38 | PDOC PROGRESS REPORT ---
Subjective Progress Note for:: 12/03/19 Subjective:: Patient is heavily sedated Reason For Visit: VASO-OCCLUSIVE PAIN DUE TO SICKLE CELL DISEASE Physical Exam Vital Signs: Temp Pulse Resp BP Pulse Ox 99.0 F 80 20 92/55 L 98 12/03/19 19:12 12/03/19 19:12 12/03/19 19:12 12/03/19 19:12 12/03/19 19:12 Intake & Output 12/02/19 12/03/19 12/04/19 06:59 06:59 06:59 Intake Total 5769 5749 2418 Output Total 490 6650 1000 Balance 869 901 1418 Weight 63.1 kg 65.8 kg General appearance: PRESENT: no acute distress Eye exam: PRESENT: PERRLA Respiratory exam: PRESENT: clear to auscultation carolyn Cardiovascular exam: PRESENT: +S1, +S2 GI/Abdominal exam: PRESENT: soft Neurological exam: PRESENT: alert Results Laboratory Results: 11/30/19 06:30 11/30/19 06:30 11/29/19 11/29/19 11/29/19 08:00 20:33 20:33 Creatine Kinase < 20 L CK-MB (CK-2) < 0.22 Troponin I < 0.012 < 0.012 11/30/19 11/30/19 11/30/19 06:30 06:30 14:30 Creatine Kinase 21 L 20 L CK-MB (CK-2) < 0.22 Troponin I < 0.012 11/30/19 14:30 Creatine Kinase CK-MB (CK-2) < 0.22 Troponin I < 0.012 Impressions: Chest X-Ray 11/29/19 07:38 IMPRESSION: 1. NO ACUTE RADIOGRAPHIC FINDING IN THE CHEST. 2. Borderline cardiomegaly, stable finding. 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 Is this a current diagnosis for this admission?: Yes (2) Sickle cell anemia Qualifiers: Sickle-cell associated disorders: with unspecified crisis Qualified Code(s): D57.00 - Hb-SS disease with crisis, unspecified; D57.0 - Hb-SS disease with crisis Is this a current diagnosis for this admission?: Yes (3) Secondary hemochromatosis Is this a current diagnosis for this admission?: Yes - Time Time Spent with patient: 15-24 minutes Level of Care: IMCU
[2019-12-04] MEDS: HYDROMORPHONE HCL INJ/PF 2 MG/ML AMPULE IV PRN ×10 (00:41→22:27)
[2019-12-04] MEDS: 1/2 NORMAL SALINE 1,000 ML IV PRN ×5 (02:38→23:26)
[2019-12-04] MEDS: DIPHENHYDRAMINE HCL 50 MG/ML VIAL IV PRN ×4 (03:10→22:27)
[2019-12-04] MEDS: PROMETHAZINE HCL INJ 25 MG/1 ML VIAL IV PRN ×3 (05:53→20:14)
--- NOTE | 2019-12-04 08:26 | PDOC PROGRESS REPORT ---
Subjective Progress Note for:: 12/04/19 Subjective:: Patient states she is still having a great deal of pain in her hips, arms and shoulders. Pain meds are adequate at this time. She wants to get up and walk, but states that nurses have not always supported her doing this. She also states that one of the nurses put up her oxygen and said that she did not need this because her sats were >90%. ROS: no constipation. No nausea. No chest pains. Some cough with green flem. Reason For Visit: VASO-OCCLUSIVE PAIN DUE TO SICKLE CELL DISEASE Physical Exam Vital Signs: Temp Pulse Resp BP Pulse Ox 98.5 F 69 18 96/54 L 95 12/04/19 07:16 12/04/19 07:16 12/04/19 07:16 12/04/19 07:16 12/04/19 07:16 Intake & Output 12/03/19 12/04/19 12/05/19 06:59 06:59 06:59 Intake Total 5741 4645 Output Total 6658 3550 Balance -901 1945 Weight 65.8 kg 68 kg General appearance: PRESENT: well-developed, well-nourished Head exam: PRESENT: atraumatic Eye exam: PRESENT: EOMI Mouth exam: PRESENT: moist Respiratory exam: PRESENT: clear to auscultation carolyn, unlabored Cardiovascular exam: PRESENT: RRR Extremities exam: ABSENT: pedal edema Neurological exam: PRESENT: alert, awake, oriented to person, oriented to place, oriented to time, oriented to situation Psychiatric exam: PRESENT: appropriate affect Skin exam: PRESENT: normal color Results Laboratory Results: 11/30/19 06:30 11/30/19 06:30 11/29/19 11/29/19 11/29/19 08:00 20:33 20:33 Creatine Kinase < 20 L CK-MB (CK-2) < 0.22 Troponin I < 0.012 < 0.012 11/30/19 11/30/19 11/30/19 06:30 06:30 14:30 Creatine Kinase 21 L 20 L CK-MB (CK-2) < 0.22 Troponin I < 0.012 11/30/19 14:30 Creatine Kinase CK-MB (CK-2) < 0.22 Troponin I < 0.012 Impressions: Chest X-Ray 11/29/19 07:38 IMPRESSION: 1. NO ACUTE RADIOGRAPHIC FINDING IN THE CHEST. 2. Borderline cardiomegaly, stable finding. 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 Is this a current diagnosis for this admission?: Yes Plan: Continue IV fluids and Oxygen. I will order physical therapy and have requested that nurses also walk with her daily, so she should be getting up at least twice a day to walk if possible. She needs help and support so that she does not fall. Will keep pain meds the same today, but will repeat CBC and LDH today and consider weaning her pain meds in AM. - Time Time Spent with patient: 15-24 minutes
[2019-12-04] MEDS: FOLIC ACID 1 MG TABLET PO SCH (09:13)
[2019-12-04] MEDS: OXYCODONE HCL SR 10 MG TABLET PO SCH ×2 (09:13→21:47)
[2019-12-04] MEDS: HYDROXYUREA 500 MG CAPSULE PO SCH ×3 (09:13→17:48)
[2019-12-04] MEDS: CHOLECALCIFEROL (D3) 1,000 UNIT (25 MCG) TABLET PO SCH (09:13)
[2019-12-04] MEDS: GABAPENTIN 300 MG CAPSULE PO SCH ×2 (09:13→21:48)
[2019-12-04] MEDS: DEFERASIROX 360 MG PO SCH (09:13)
[2019-12-04] MEDS: ENOXAPARIN SODIUM INJ 40 MG/0.4 ML DISP.SYRIN SUBCUT SCH (09:13)
[2019-12-04 11:08] LABS: HEMATOCRIT 17.2 % (36.0-47.0); MEAN CORPUSCULAR HEMOGLOBIN 46.6 pg (27.0-33.4); MEAN CORPUSCULAR HGB CONC 35.5 g/dL (32.0-36.0); MEAN CORPUSCULAR VOLUME 131 fl (80-97); PLATELET COUNT 147 10^3/uL (150-450); RED BLOOD COUNT 1.31 10^6/uL (3.72-5.28); RED CELL DISTRIBUTION WIDTH 18.7 % (11.5-14.0); WHITE BLOOD COUNT 4.7 10^3/uL (4.0-10.5)
[2019-12-04 12:20] LABS: ABSOLUTE LYMPHOCYTES# (MANUAL) 2.4 10^3/uL (0.5-4.7); ABSOLUTE MONOCYTES # (MANUAL) 0.1 10^3/uL (0.1-1.4); ANISOCYTOSIS 2+; BASOPHILS % (MANUAL) 0 % (0-2); EOSINOPHILS % (MANUAL) 4 % (0-6); HYPOCHROMASIA SLIGHT; LYMPHOCYTES % (MANUAL) 51 % (13-45); MONOCYTES % (MANUAL) 2 % (3-13); NUCLEATED RED BLOOD CELLS 7 /100 WBC (0); OVALOCYTES 1+; PLATELET COMMENT DECREASED; POIKILOCYTOSIS 1+; POLYCHROMASIA SLIGHT; SEGMENTED NEUTROPHILS % (MAN) 43 % (42-78); SICKLE RED CELLS SLIGHT; TARGET CELLS 1+; TOTAL CELLS COUNTED 100
[2019-12-04 12:23] LABS: HEMOGLOBIN 6.1 g/dL (12.0-15.5)
--- NOTE | 2019-12-04 21:22 | PDOC PROGRESS REPORT ---
Subjective Progress Note for:: 12/04/19 Subjective:: Patient seen by the bedside Reason For Visit: VASO-OCCLUSIVE PAIN DUE TO SICKLE CELL DISEASE Physical Exam Vital Signs: Temp Pulse Resp BP Pulse Ox 98.8 F 82 20 113/65 99 12/04/19 19:14 12/04/19 19:14 12/04/19 19:14 12/04/19 19:14 12/04/19 19:14 Intake & Output 12/03/19 12/04/19 12/05/19 06:59 06:59 06:59 Intake Total 5749 4666 3667 Output Total 6650 9316 700 Balance -901 1945 2967 Weight 65.8 kg 68 kg General appearance: PRESENT: no acute distress Eye exam: PRESENT: PERRLA Respiratory exam: PRESENT: clear to auscultation carolyn Cardiovascular exam: PRESENT: +S1, +S2 GI/Abdominal exam: PRESENT: soft Results Laboratory Results: 12/04/19 10:50 11/30/19 06:30 12/04/19 10:50 WBC 4.7 RBC 1.31 L Hgb 6.1 L Hct 17.2 L MCV 131 H MCH 46.6 H MCHC 35.5 RDW 18.7 H Plt Count 147 L Seg Neutrophils % Not Reportable 11/29/19 11/29/19 11/29/19 08:00 20:33 20:33 Creatine Kinase < 20 L CK-MB (CK-2) < 0.22 Troponin I < 0.012 < 0.012 11/30/19 11/30/19 11/30/19 06:30 06:30 14:30 Creatine Kinase 21 L 20 L CK-MB (CK-2) < 0.22 Troponin I < 0.012 11/30/19 14:30 Creatine Kinase CK-MB (CK-2) < 0.22 Troponin I < 0.012 Impressions: Chest X-Ray 11/29/19 07:38 IMPRESSION: 1. NO ACUTE RADIOGRAPHIC FINDING IN THE CHEST. 2. Borderline cardiomegaly, stable finding. 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
[2019-12-05] MEDS: HYDROMORPHONE HCL INJ/PF 2 MG/ML AMPULE IV PRN ×10 (01:01→22:30)
[2019-12-05] MEDS: PROMETHAZINE HCL INJ 25 MG/1 ML VIAL IV PRN ×3 (01:01→20:07)
[2019-12-05] MEDS: DIPHENHYDRAMINE HCL 50 MG/ML VIAL IV PRN ×4 (03:49→21:31)
--- NOTE | 2019-12-05 08:08 | PDOC PROGRESS REPORT ---
Subjective Progress Note for:: 12/05/19 Subjective:: D/w pt, will wean dilaudid today Reason For Visit: VASO-OCCLUSIVE PAIN DUE TO SICKLE CELL DISEASE Physical Exam Vital Signs: Temp Pulse Resp BP Pulse Ox 98.5 F 72 9 L 101/62 100 12/05/19 07:36 12/05/19 07:36 12/05/19 07:36 12/05/19 07:36 12/05/19 07:36 Intake & Output 12/04/19 12/05/19 12/06/19 06:59 06:59 06:59 Intake Total 4645 4927 Output Total 2700 3700 Balance 1941976 Weight 68 kg 68.5 kg General appearance: PRESENT: no acute distress, well-developed, well-nourished Head exam: PRESENT: atraumatic, normocephalic Eye exam: PRESENT: conjunctiva pink, EOMI, PERRLA. ABSENT: scleral icterus Ear exam: PRESENT: normal external ear exam Mouth exam: PRESENT: moist, tongue midline Neck exam: ABSENT: carotid bruit, JVD, lymphadenopathy, thyromegaly Respiratory exam: PRESENT: clear to auscultation carolyn. ABSENT: rales, rhonchi, wheezes Cardiovascular exam: PRESENT: RRR. ABSENT: diastolic murmur, rubs, systolic murmur Pulses: PRESENT: normal dorsalis pedis pul Vascular exam: PRESENT: normal capillary refill GI/Abdominal exam: PRESENT: normal bowel sounds, soft. ABSENT: distended, guarding, mass, organolmegaly, rebound, tenderness Rectal exam: PRESENT: deferred Extremities exam: PRESENT: full ROM. ABSENT: calf tenderness, clubbing, pedal edema Neurological exam: PRESENT: alert, awake, oriented to person, oriented to place, oriented to time, oriented to situation, CN II-XII grossly intact. ABSENT: motor sensory deficit Psychiatric exam: PRESENT: appropriate affect, normal mood. ABSENT: homicidal ideation, suicidal ideation Skin exam: PRESENT: dry, intact, warm. ABSENT: cyanosis, rash Results Laboratory Results: 12/04/19 10:50 11/30/19 06:30 12/04/19 10:50 WBC 4.7 RBC 1.31 L Hgb 6.1 L Hct 17.2 L MCV 131 H MCH 46.6 H MCHC 35.5 RDW 18.7 H Plt Count 147 L Seg Neutrophils % Not Reportable 11/29/19 11/29/19 11/29/19 08:00 20:33 20:33 Creatine Kinase < 20 L CK-MB (CK-2) < 0.22 Troponin I < 0.012 < 0.012 11/30/19 11/30/19 11/30/19 06:30 06:30 14:30 Creatine Kinase 21 L 20 L CK-MB (CK-2) < 0.22 Troponin I < 0.012 11/30/19 14:30 Creatine Kinase CK-MB (CK-2) < 0.22 Troponin I < 0.012 Impressions: Chest X-Ray 11/29/19 07:38 IMPRESSION: 1. NO ACUTE RADIOGRAPHIC FINDING IN THE CHEST. 2. Borderline cardiomegaly, stable finding. Assessment & Plan - Diagnosis (1) Hb-SS disease with vaso-occlusive crisis Is this a current diagnosis for this admission?: Yes Plan: Decrease dilaudid today, cont other supportive care (2) Anemia, sickle cell with crisis Is this a current diagnosis for this admission?: Yes Plan: HB stable in 6 range - Time Time Spent with patient: 15-24 minutes
[2019-12-05] MEDS: DEFERASIROX 360 MG PO SCH (09:02)
[2019-12-05] MEDS: FOLIC ACID 1 MG TABLET PO SCH (09:06)
[2019-12-05] MEDS: HYDROXYUREA 500 MG CAPSULE PO SCH ×3 (09:06→17:47)
[2019-12-05] MEDS: ERGOCALCIFEROL (VITAMIN D2) 50000 UNIT (1.25 MG) CAPSULE PO SCH (09:06)
[2019-12-05] MEDS: CHOLECALCIFEROL (D3) 1,000 UNIT (25 MCG) TABLET PO SCH (09:06)
[2019-12-05] MEDS: OXYCODONE HCL SR 10 MG TABLET PO SCH ×2 (09:07→21:31)
[2019-12-05] MEDS: GABAPENTIN 300 MG CAPSULE PO SCH ×2 (09:07→21:32)
[2019-12-05] MEDS: ENOXAPARIN SODIUM INJ 40 MG/0.4 ML DISP.SYRIN SUBCUT SCH (09:12)
[2019-12-05] MEDS ORDERED: (PENDING PHARMACY ID) (Ergocalciferol (Vitamin D2) [Vitamin D2] 50 MCG) PO SCH (10:00)
[2019-12-05] MEDS: 1/2 NORMAL SALINE 1,000 ML IV PRN ×3 (11:50→21:33)
--- NOTE | 2019-12-05 20:48 | PDOC PROGRESS REPORT ---
Subjective Progress Note for:: 12/05/19 Subjective:: Patient seen by the bedside, opioid dependent Reason For Visit: VASO-OCCLUSIVE PAIN DUE TO SICKLE CELL DISEASE Physical Exam Vital Signs: Temp Pulse Resp BP Pulse Ox 98.7 F 84 14 99/63 L 100 12/05/19 15:15 12/05/19 19:00 12/05/19 15:15 12/05/19 15:15 12/05/19 15:15 Intake & Output 12/04/19 12/05/19 12/06/19 06:59 06:59 06:59 Intake Total 4694 5976 1844 Output Total 2701 2950 2600 Balance 1942 9879 -868 Weight 68 kg 68.5 kg 68.5 kg General appearance: PRESENT: no acute distress Eye exam: PRESENT: PERRLA Respiratory exam: PRESENT: clear to auscultation carolyn Cardiovascular exam: PRESENT: +S1, +S2 GI/Abdominal exam: PRESENT: soft Results Laboratory Results: 12/04/19 10:50 11/30/19 06:30 11/29/19 11/29/19 11/29/19 08:00 20:33 20:33 Creatine Kinase < 20 L CK-MB (CK-2) < 0.22 Troponin I < 0.012 < 0.012 11/30/19 11/30/19 11/30/19 06:30 06:30 14:30 Creatine Kinase 21 L 20 L CK-MB (CK-2) < 0.22 Troponin I < 0.012 11/30/19 14:30 Creatine Kinase CK-MB (CK-2) < 0.22 Troponin I < 0.012 Impressions: Chest X-Ray 11/29/19 07:38 IMPRESSION: 1. NO ACUTE RADIOGRAPHIC FINDING IN THE CHEST. 2. Borderline cardiomegaly, stable finding. 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 Is this a current diagnosis for this admission?: Yes (2) Sickle cell anemia Qualifiers: Sickle-cell associated disorders: with unspecified crisis Qualified Code(s): D57.00 - Hb-SS disease with crisis, unspecified; D57.0 - Hb-SS disease with crisis Is this a current diagnosis for this admission?: Yes (3) Secondary hemochromatosis Is this a current diagnosis for this admission?: Yes - Time Time Spent with patient: 15-24 minutes Level of Care: IMCU
[2019-12-06] MEDS: PROMETHAZINE HCL INJ 25 MG/1 ML VIAL IV PRN ×6 (00:41→23:09)
[2019-12-06] MEDS: HYDROMORPHONE HCL INJ/PF 2 MG/ML AMPULE IV PRN ×11 (00:41→23:02)
[2019-12-06] MEDS: DIPHENHYDRAMINE HCL 50 MG/ML VIAL IV PRN ×5 (02:43→20:38)
[2019-12-06] MEDS: 1/2 NORMAL SALINE 1,000 ML IV PRN ×3 (02:59→14:12)
--- NOTE | 2019-12-06 08:30 | PDOC PROGRESS REPORT ---
Subjective Progress Note for:: 12/06/19 Subjective:: Patient states her pain is much worse today. Could not sleep last night. She has been trying to walk in [place]. Not eating or drinking as much. ROS: Denies dyspnea or constipation. Reason For Visit: VASO-OCCLUSIVE PAIN DUE TO SICKLE CELL DISEASE Physical Exam Vital Signs: Temp Pulse Resp BP Pulse Ox 98.3 F 84 20 112/57 L 100 12/06/19 02:50 12/06/19 07:00 12/06/19 02:50 12/06/19 02:50 12/06/19 04:20 Intake & Output 12/05/19 12/06/19 12/07/19 06:59 06:59 06:59 Intake Total 5903 4364 Output Total 2955 6049 Balance 2977 -1686 Weight 68.5 kg 67.8 kg General appearance: PRESENT: well-developed, well-nourished Exam: In obvious pain. Head exam: PRESENT: normocephalic Eye exam: PRESENT: EOMI Mouth exam: PRESENT: moist Respiratory exam: PRESENT: unlabored Extremities exam: ABSENT: pedal edema Musculoskeletal exam: PRESENT: normal inspection Neurological exam: PRESENT: alert, awake, oriented to person, oriented to place, oriented to time, oriented to situation Psychiatric exam: PRESENT: appropriate affect Skin exam: PRESENT: normal color Results Laboratory Results: 12/04/19 10:50 11/30/19 06:30 11/29/19 11/29/19 11/29/19 08:00 20:33 20:33 Creatine Kinase < 20 L CK-MB (CK-2) < 0.22 Troponin I < 0.012 < 0.012 11/30/19 11/30/19 11/30/19 06:30 06:30 14:30 Creatine Kinase 21 L 20 L CK-MB (CK-2) < 0.22 Troponin I < 0.012 11/30/19 14:30 Creatine Kinase CK-MB (CK-2) < 0.22 Troponin I < 0.012 Impressions: Chest X-Ray 11/29/19 07:38 IMPRESSION: 1. NO ACUTE RADIOGRAPHIC FINDING IN THE CHEST. 2. Borderline cardiomegaly, stable finding. 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 Is this a current diagnosis for this admission?: Yes Plan: No changes today. She states that she is not getting her banana bag. I will try to make sure this happens. She will try to walk in [place]. - Time Time Spent with patient: Less than 15 minutes
[2019-12-06] MEDS: FOLIC ACID 1 MG TABLET PO SCH (09:01)
[2019-12-06] MEDS: GABAPENTIN 300 MG CAPSULE PO SCH ×2 (09:01→22:13)
[2019-12-06] MEDS: CHOLECALCIFEROL (D3) 1,000 UNIT (25 MCG) TABLET PO SCH (09:01)
[2019-12-06] MEDS: HYDROXYUREA 500 MG CAPSULE PO SCH ×3 (09:02→17:51)
[2019-12-06] MEDS: DEFERASIROX 360 MG PO SCH (09:02)
[2019-12-06] MEDS: OXYCODONE HCL SR 10 MG TABLET PO SCH ×2 (09:02→22:12)
[2019-12-06] MEDS: ENOXAPARIN SODIUM INJ 40 MG/0.4 ML DISP.SYRIN SUBCUT SCH (09:03)
[2019-12-06] MEDS: NORMAL SALINE 1000 ML 1,000 ML with POTASSIUM CHLORIDE 20 MEQ, MAGNESIUM SULFATE 8 MEQ,... IV SCH ×5 (17:51)
--- NOTE | 2019-12-06 20:00 | PDOC PROGRESS REPORT ---
Subjective Progress Note for:: 12/06/19 Subjective:: Patient seen by the bedside,She was seen by the oncologist earlier this morning,Pain control is achieved with opioid therapy Reason For Visit: VASO-OCCLUSIVE PAIN DUE TO SICKLE CELL DISEASE Physical Exam Vital Signs: Temp Pulse Resp BP Pulse Ox 98.9 F 78 18 90/44 L 100 12/06/19 16:47 12/06/19 16:47 12/06/19 16:47 12/06/19 16:47 12/06/19 16:47 Intake & Output 12/05/19 12/06/19 12/07/19 06:59 06:59 06:59 Intake Total 5927 4364 3080 Output Total 2950 6050 1280 Balance 2977 -1686 1800 Weight 68.5 kg 67.8 kg General appearance: PRESENT: no acute distress Eye exam: PRESENT: PERRLA Respiratory exam: PRESENT: clear to auscultation carolyn Cardiovascular exam: PRESENT: +S1, +S2 GI/Abdominal exam: PRESENT: soft Results Laboratory Results: 12/04/19 10:50 11/30/19 06:30 11/29/19 11/29/19 11/29/19 08:00 20:33 20:33 Creatine Kinase < 20 L CK-MB (CK-2) < 0.22 Troponin I < 0.012 < 0.012 11/30/19 11/30/19 11/30/19 06:30 06:30 14:30 Creatine Kinase 21 L 20 L CK-MB (CK-2) < 0.22 Troponin I < 0.012 11/30/19 14:30 Creatine Kinase CK-MB (CK-2) < 0.22 Troponin I < 0.012 Impressions: Chest X-Ray 11/29/19 07:38 IMPRESSION: 1. NO ACUTE RADIOGRAPHIC FINDING IN THE CHEST. 2. Borderline cardiomegaly, stable finding. 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
[2019-12-07] MEDS: HYDROMORPHONE HCL INJ/PF 2 MG/ML AMPULE IV PRN ×8 (01:20→20:47)
[2019-12-07] MEDS: 1/2 NORMAL SALINE 1,000 ML IV PRN ×2 (02:59→11:13)
[2019-12-07] MEDS: DIPHENHYDRAMINE HCL 50 MG/ML VIAL IV PRN ×5 (03:50→22:17)
[2019-12-07] MEDS: PROMETHAZINE HCL INJ 25 MG/1 ML VIAL IV PRN ×3 (06:05→20:53)
--- NOTE | 2019-12-07 09:19 | PDOC PROGRESS REPORT ---
Subjective Progress Note for:: 12/07/19 Subjective:: Patient is about the same. No change in level of pain. She was able to walk in [place] yesterday. Still trying to eat and drink. ROS: No dyspnea. No constipation. Reason For Visit: VASO-OCCLUSIVE PAIN DUE TO SICKLE CELL DISEASE Physical Exam Vital Signs: Temp Pulse Resp BP Pulse Ox 98.6 F 81 18 94/45 L 94 12/07/19 07:03 12/07/19 07:03 12/07/19 07:03 12/07/19 07:03 12/07/19 07:03 Intake & Output 12/06/19 12/07/19 12/08/19 06:59 06:59 06:59 Intake Total 4364 5847 Output Total 6050 4480 Balance -1686 1367 Weight 67.8 kg 66 kg General appearance: PRESENT: no acute distress, well-developed, well-nourished Head exam: PRESENT: normocephalic Respiratory exam: PRESENT: unlabored Extremities exam: ABSENT: pedal edema Neurological exam: PRESENT: alert, awake Skin exam: PRESENT: normal color Results Laboratory Results: 12/04/19 10:50 11/30/19 06:30 11/29/19 11/29/19 11/29/19 08:00 20:33 20:33 Creatine Kinase < 20 L CK-MB (CK-2) < 0.22 Troponin I < 0.012 < 0.012 11/30/19 11/30/19 11/30/19 06:30 06:30 14:30 Creatine Kinase 21 L 20 L CK-MB (CK-2) < 0.22 Troponin I < 0.012 11/30/19 14:30 Creatine Kinase CK-MB (CK-2) < 0.22 Troponin I < 0.012 Impressions: Chest X-Ray 11/29/19 07:38 IMPRESSION: 1. NO ACUTE RADIOGRAPHIC FINDING IN THE CHEST. 2. Borderline cardiomegaly, stable finding. 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 Is this a current diagnosis for this admission?: Yes Plan: Will decrease Dilaudid to 2 mg q 3 hours and continue to slowly wean, as tolerated. Continue all other treatments. She has been wearing her oxygen more. - Time Time Spent with patient: Less than 15 minutes
[2019-12-07] MEDS: ENOXAPARIN SODIUM INJ 40 MG/0.4 ML DISP.SYRIN SUBCUT SCH (09:54)
[2019-12-07] MEDS: CHOLECALCIFEROL (D3) 1,000 UNIT (25 MCG) TABLET PO SCH (09:59)
[2019-12-07] MEDS: OXYCODONE HCL SR 10 MG TABLET PO SCH ×2 (09:59→22:15)
[2019-12-07] MEDS: FOLIC ACID 1 MG TABLET PO SCH (09:59)
[2019-12-07] MEDS: HYDROXYUREA 500 MG CAPSULE PO SCH ×3 (09:59→17:21)
[2019-12-07] MEDS: DEFERASIROX 360 MG PO SCH (09:59)
[2019-12-07] MEDS: GABAPENTIN 300 MG CAPSULE PO SCH ×2 (09:59→22:16)
[2019-12-07] MEDS: EPOETIN ALFA-EPBX 40,000 UNIT/ML VIAL (NON-ESRD) SUBCUT SCH (10:35)
[2019-12-07] MEDS: NORMAL SALINE 1000 ML 1,000 ML with POTASSIUM CHLORIDE 20 MEQ, MAGNESIUM SULFATE 8 MEQ,... IV SCH ×5 (17:20)
--- NOTE | 2019-12-07 22:29 | PDOC PROGRESS REPORT ---
Subjective Progress Note for:: 12/07/19 Subjective:: Patient seen by the bedside, no new complaints Reason For Visit: VASO-OCCLUSIVE PAIN DUE TO SICKLE CELL DISEASE Physical Exam Vital Signs: Temp Pulse Resp BP Pulse Ox 99.3 F 78 20 95/59 L 100 12/07/19 19:40 12/07/19 19:40 12/07/19 19:40 12/07/19 19:40 12/07/19 19:40 Intake & Output 12/06/19 12/07/19 12/08/19 06:59 06:59 06:59 Intake Total 4364 5847 2182 Output Total 6050 4480 Balance -2044 6697 2182 Weight 67.8 kg 66 kg General appearance: PRESENT: no acute distress Eye exam: PRESENT: PERRLA Respiratory exam: PRESENT: clear to auscultation carolyn Cardiovascular exam: PRESENT: +S1, +S2 GI/Abdominal exam: PRESENT: soft Neurological exam: PRESENT: alert Results Laboratory Results: 12/04/19 10:50 11/30/19 06:30 11/29/19 11/29/19 11/29/19 08:00 20:33 20:33 Creatine Kinase < 20 L CK-MB (CK-2) < 0.22 Troponin I < 0.012 < 0.012 11/30/19 11/30/19 11/30/19 06:30 06:30 14:30 Creatine Kinase 21 L 20 L CK-MB (CK-2) < 0.22 Troponin I < 0.012 11/30/19 14:30 Creatine Kinase CK-MB (CK-2) < 0.22 Troponin I < 0.012 Impressions: Chest X-Ray 11/29/19 07:38 IMPRESSION: 1. NO ACUTE RADIOGRAPHIC FINDING IN THE CHEST. 2. Borderline cardiomegaly, stable finding. 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
[2019-12-08] MEDS: HYDROMORPHONE HCL INJ/PF 2 MG/ML AMPULE IV PRN ×7 (01:08→21:51)
[2019-12-08] MEDS: PROMETHAZINE HCL INJ 25 MG/1 ML VIAL IV PRN ×3 (01:08→18:25)
[2019-12-08] MEDS: 1/2 NORMAL SALINE 1,000 ML IV PRN ×3 (01:15→11:11)
[2019-12-08] MEDS: DIPHENHYDRAMINE HCL 50 MG/ML VIAL IV PRN ×4 (04:23→21:51)
[2019-12-08 05:55] LABS: HEMATOCRIT 16.2 % (36.0-47.0); MEAN CORPUSCULAR HEMOGLOBIN 45.9 pg (27.0-33.4); MEAN CORPUSCULAR HGB CONC 35.5 g/dL (32.0-36.0); MEAN CORPUSCULAR VOLUME 129 fl (80-97); PLATELET COUNT 131 10^3/uL (150-450); RED BLOOD COUNT 1.25 10^6/uL (3.72-5.28); RED CELL DISTRIBUTION WIDTH 18.7 % (11.5-14.0); WHITE BLOOD COUNT 3.5 10^3/uL (4.0-10.5)
[2019-12-08 05:56] LABS: ALBUMIN 3.8 g/dL (3.5-5.0); ALKALINE PHOSPHATASE 95 U/L (38-126); ANION GAP 6 (5-19); ASPARTATE AMINO TRANSFERASE 42 U/L (14-36); BILIRUBIN,DIRECT 0.1 mg/dL (0.0-0.4); BILIRUBIN,TOTAL 3.2 mg/dL (0.2-1.3); BLOOD UREA NITROGEN 8 mg/dL (7-20); CALCIUM 8.7 mg/dL (8.4-10.2); CARBON DIOXIDE 25 mmol/L (22-30); CHLORIDE 105 mmol/L (98-107); GLUCOSE 101 mg/dL (75-110); POTASSIUM 4.2 mmol/L (3.6-5.0); TOTAL PROTEIN 6.6 g/dL (6.3-8.2)
[2019-12-08 06:48] LABS: HEMOGLOBIN 5.7 g/dL (12.0-15.5)
[2019-12-08 06:54] LABS: BASOPHILS % (MANUAL) 0 % (0-2); EOSINOPHILS % (MANUAL) 5 % (0-6); LYMPHOCYTES % (MANUAL) 57 % (13-45); MONOCYTES % (MANUAL) 1 % (3-13); NUCLEATED RED BLOOD CELLS 48 /100 WBC (0); SEGMENTED NEUTROPHILS % (MAN) 37 % (42-78); TOTAL CELLS COUNTED 100
[2019-12-08 06:55] LABS: ANISOCYTOSIS 2+; OVALOCYTES 1+; POIKILOCYTOSIS 2+; POLYCHROMASIA 1+
[2019-12-08 06:56] LABS: PLATELET COMMENT ADEQUATE; SICKLE RED CELLS 1+; TARGET CELLS 1+
[2019-12-08] MEDS: DEFERASIROX 360 MG PO SCH (09:33)
[2019-12-08] MEDS: FOLIC ACID 1 MG TABLET PO SCH (09:34)
[2019-12-08] MEDS: CHOLECALCIFEROL (D3) 1,000 UNIT (25 MCG) TABLET PO SCH (09:34)
[2019-12-08] MEDS: HYDROXYUREA 500 MG CAPSULE PO SCH ×3 (09:34→18:25)
[2019-12-08] MEDS: GABAPENTIN 300 MG CAPSULE PO SCH ×2 (09:34→21:52)
[2019-12-08] MEDS: ENOXAPARIN SODIUM INJ 40 MG/0.4 ML DISP.SYRIN SUBCUT SCH (09:34)
[2019-12-08] MEDS: OXYCODONE HCL SR 10 MG TABLET PO SCH ×2 (09:34→21:52)
--- NOTE | 2019-12-08 11:27 | PDOC PROGRESS REPORT ---
Subjective Progress Note for:: 12/08/19 Subjective:: Patient is currently doing well Except patient was complaining of shoulder pain Patient is currently on pain medications per oncology Patient hemoglobin is 5.7 Reason For Visit: VASO-OCCLUSIVE PAIN DUE TO SICKLE CELL DISEASE Physical Exam Vital Signs: Temp Pulse Resp BP Pulse Ox 99.0 F 75 18 88/49 L 98 12/08/19 07:16 12/08/19 07:16 12/08/19 07:16 12/08/19 07:16 12/08/19 07:16 Intake & Output 12/07/19 12/08/19 12/09/19 06:59 06:59 06:59 Intake Total 5847 4182 1995 Output Total 4480 Balance 1367 4182 1995 Weight 66 kg 66.5 kg General appearance: PRESENT: no acute distress, well-developed, well-nourished Head exam: PRESENT: atraumatic, normocephalic Eye exam: PRESENT: conjunctiva pink, EOMI, PERRLA. ABSENT: scleral icterus Ear exam: PRESENT: normal external ear exam Mouth exam: PRESENT: moist, tongue midline Neck exam: PRESENT: full ROM. ABSENT: carotid bruit, JVD, lymphadenopathy, thyromegaly Respiratory exam: PRESENT: clear to auscultation carolyn Cardiovascular exam: PRESENT: RRR. ABSENT: diastolic murmur, rubs, systolic murmur Pulses: PRESENT: normal dorsalis pedis pul, +2 pedal pulses bilateral Vascular exam: PRESENT: normal capillary refill GI/Abdominal exam: PRESENT: normal bowel sounds, soft. ABSENT: distended, guarding, mass, organolmegaly, rebound, tenderness Rectal exam: PRESENT: deferred Neurological exam: PRESENT: alert, awake, oriented to person, oriented to place, oriented to time, oriented to situation, CN II-XII grossly intact. ABSENT: motor sensory deficit Psychiatric exam: PRESENT: appropriate affect, normal mood. ABSENT: homicidal ideation, suicidal ideation Skin exam: PRESENT: dry, intact, warm. ABSENT: cyanosis, rash Results Laboratory Results: 12/08/19 05:16 12/08/19 05:16 12/08/19 12/08/19 05:16 05:16 WBC 3.5 L RBC 1.25 L Hgb 5.7 L Hct 16.2 L MCV 129 H MCH 45.9 H MCHC 35.5 RDW 18.7 H Plt Count 131 L Seg Neutrophils % Not Reportable Sodium 136.4 L Potassium 4.2 Chloride 105 Carbon Dioxide 25 Anion Gap 6 BUN 8 Creatinine 0.48 L Est GFR ( Amer) > 60 Glucose 101 Calcium 8.7 Total Bilirubin 3.2 H AST 42 H Alkaline Phosphatase 95 Total Protein 6.6 Albumin 3.8 11/29/19 11/29/19 11/29/19 08:00 20:33 20:33 Creatine Kinase < 20 L CK-MB (CK-2) < 0.22 Troponin I < 0.012 < 0.012 11/30/19 11/30/19 11/30/19 06:30 06:30 14:30 Creatine Kinase 21 L 20 L CK-MB (CK-2) < 0.22 Troponin I < 0.012 11/30/19 14:30 Creatine Kinase CK-MB (CK-2) < 0.22 Troponin I < 0.012 Impressions: Chest X-Ray 11/29/19 07:38 IMPRESSION: 1. NO ACUTE RADIOGRAPHIC FINDING IN THE CHEST. 2. Borderline cardiomegaly, stable finding. 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 Is this a current diagnosis for this admission?: Yes (2) Anemia, sickle cell with crisis Is this a current diagnosis for this admission?: Yes - Time Time Spent with patient: 15-24 minutes Level of Care: TELE Medications reviewed and adjusted accordingly: Yes Anticipated discharge: Other Within: Other - Plan Summary Plan Summary: Continues to current medications will defer for the oncology about any blood transfusions continues that IV fluid get the x-ray of the shoulder
--- NOTE | 2019-12-08 12:30 | RADIOLOGY REPORT (SQ) ---
EXAM DESCRIPTION: SHOULDER RIGHT 1 VIEW IMAGES COMPLETED DATE/TIME: 12/08/2019 11:36 am REASON FOR STUDY: pain COMPARISON: None. NUMBER OF VIEWS: One view. TECHNIQUE: A single frontal radiograph of the right shoulder was obtained. LIMITATIONS: None. FINDINGS: MINERALIZATION: Osteopenia. BONES: No acute fracture. No worrisome bone lesions. JOINTS: No dislocation. VISUALIZED LUNGS AND RIBS: No pneumothorax. No rib fracture. SOFT TISSUES: Rotator cuff calcific tendinopathy. Otherwise unremarkable. OTHER: No other significant finding. IMPRESSION: No evidence of acute osseous injury. Trace rotator cuff calcific tendinopathy. TECHNICAL DOCUMENTATION: JOB ID: [id number] 2010 [employer]- All Rights Reserved Reading location - IP/workstation name: [email or web address]
--- NOTE | 2019-12-08 17:30 | PDOC PROGRESS REPORT ---
Subjective Progress Note for:: 12/08/19 Subjective:: Patient continues to have severe pain. She had a bad night last night. She received procrit yesterday. She is eating and drinking well. Trying to walk as much as possible. Reason For Visit: VASO-OCCLUSIVE PAIN DUE TO SICKLE CELL DISEASE Physical Exam Vital Signs: Temp Pulse Resp BP Pulse Ox 99.8 F 80 18 104/55 L 100 12/08/19 16:11 12/08/19 16:11 12/08/19 16:11 12/08/19 16:11 12/08/19 16:11 Intake & Output 12/07/19 12/08/19 12/09/19 06:59 06:59 06:59 Intake Total 5847 4182 2218 Output Total 4480 Balance 1367 4182 2218 Weight 66 kg 66.5 kg General appearance: PRESENT: no acute distress, well-developed, well-nourished Head exam: PRESENT: normocephalic Eye exam: PRESENT: EOMI Respiratory exam: PRESENT: clear to auscultation carolyn, unlabored Cardiovascular exam: PRESENT: RRR Extremities exam: ABSENT: pedal edema Neurological exam: PRESENT: alert, awake Psychiatric exam: PRESENT: appropriate affect Skin exam: PRESENT: normal color Results Laboratory Results: 12/08/19 05:16 12/08/19 05:16 12/08/19 12/08/19 05:16 05:16 WBC 3.5 L RBC 1.25 L Hgb 5.7 L Hct 16.2 L MCV 129 H MCH 45.9 H MCHC 35.5 RDW 18.7 H Plt Count 131 L Seg Neutrophils % Not Reportable Sodium 136.4 L Potassium 4.2 Chloride 105 Carbon Dioxide 25 Anion Gap 6 BUN 8 Creatinine 0.48 L Est GFR ( Amer) > 60 Glucose 101 Calcium 8.7 Total Bilirubin 3.2 H AST 42 H Alkaline Phosphatase 95 Total Protein 6.6 Albumin 3.8 11/29/19 11/29/19 11/29/19 08:00 20:33 20:33 Creatine Kinase < 20 L CK-MB (CK-2) < 0.22 Troponin I < 0.012 < 0.012 11/30/19 11/30/19 11/30/19 06:30 06:30 14:30 Creatine Kinase 21 L 20 L CK-MB (CK-2) < 0.22 Troponin I < 0.012 11/30/19 14:30 Creatine Kinase CK-MB (CK-2) < 0.22 Troponin I < 0.012 Impressions: Chest X-Ray 11/29/19 07:38 IMPRESSION: 1. NO ACUTE RADIOGRAPHIC FINDING IN THE CHEST. 2. Borderline cardiomegaly, stable finding. Shoulder X-Ray 12/08/19 00:00 IMPRESSION: No evidence of acute osseous injury. Trace rotator cuff calcific tendinopathy. 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 Is this a current diagnosis for this admission?: Yes Plan: Continue Oxygen and IV fluids. I will increase dilaudid and will continue to monitor. Her HGB overall has been stable. No indication for blood transfusion at this time. - Time Time Spent with patient: 15-24 minutes
[2019-12-08] MEDS: NORMAL SALINE 1000 ML 1,000 ML with POTASSIUM CHLORIDE 20 MEQ, MAGNESIUM SULFATE 8 MEQ,... IV SCH ×5 (18:25)
[2019-12-09] MEDS: PROMETHAZINE HCL INJ 25 MG/1 ML VIAL IV PRN ×4 (00:51→18:36)
[2019-12-09] MEDS: HYDROMORPHONE HCL INJ/PF 2 MG/ML AMPULE IV PRN ×8 (00:51→21:21)
[2019-12-09] MEDS: DIPHENHYDRAMINE HCL 50 MG/ML VIAL IV PRN ×4 (03:07→21:22)
[2019-12-09] MEDS: 1/2 NORMAL SALINE 1,000 ML IV PRN ×2 (03:16→09:35)
[2019-12-09] MEDS: CHOLECALCIFEROL (D3) 1,000 UNIT (25 MCG) TABLET PO SCH (09:24)
[2019-12-09] MEDS: GABAPENTIN 300 MG CAPSULE PO SCH ×2 (09:25→21:21)
[2019-12-09] MEDS: HYDROXYUREA 500 MG CAPSULE PO SCH ×3 (09:25→17:30)
[2019-12-09] MEDS: FOLIC ACID 1 MG TABLET PO SCH (09:25)
[2019-12-09] MEDS: DEFERASIROX 360 MG PO SCH (09:25)
[2019-12-09] MEDS: OXYCODONE HCL SR 10 MG TABLET PO SCH ×2 (09:26→21:20)
[2019-12-09] MEDS: ENOXAPARIN SODIUM INJ 40 MG/0.4 ML DISP.SYRIN SUBCUT SCH (09:26)
--- NOTE | 2019-12-09 10:40 | PDOC PROGRESS REPORT ---
Subjective Progress Note for:: 12/09/19 Subjective:: Patient is currently doing well Except patient was complaining of shoulder pain Patient is currently on pain medications per oncology Patient hemoglobin is 5.7 Reason For Visit: VASO-OCCLUSIVE PAIN DUE TO SICKLE CELL DISEASE Physical Exam Vital Signs: Temp Pulse Resp BP Pulse Ox 99.6 F 85 16 92/43 L 100 12/09/19 08:30 12/09/19 08:30 12/09/19 08:30 12/09/19 08:30 12/09/19 08:30 Intake & Output 12/08/19 12/09/19 12/10/19 06:59 06:59 06:59 Intake Total 4182 3218 1971 Balance 4182 3218 1971 Weight 66.5 kg 65.7 kg General appearance: PRESENT: no acute distress, well-developed, well-nourished Head exam: PRESENT: atraumatic, normocephalic Eye exam: PRESENT: conjunctiva pink, EOMI, PERRLA. ABSENT: scleral icterus Ear exam: PRESENT: normal external ear exam Mouth exam: PRESENT: moist, tongue midline Neck exam: PRESENT: full ROM. ABSENT: carotid bruit, JVD, lymphadenopathy, thy romegaly Respiratory exam: PRESENT: clear to auscultation carolyn Cardiovascular exam: PRESENT: RRR. ABSENT: diastolic murmur, rubs, systolic murmur Pulses: PRESENT: normal dorsalis pedis pul, +2 pedal pulses bilateral Vascular exam: PRESENT: normal capillary refill GI/Abdominal exam: PRESENT: normal bowel sounds, soft. ABSENT: distended, guarding, mass, organolmegaly, rebound, tenderness Rectal exam: PRESENT: deferred Neurological exam: PRESENT: alert, awake, oriented to person, oriented to place, oriented to time, oriented to situation, CN II-XII grossly intact. ABSENT: motor sensory deficit Psychiatric exam: PRESENT: appropriate affect, normal mood. ABSENT: homicidal ideation, suicidal ideation Skin exam: PRESENT: dry, intact, warm. ABSENT: cyanosis, rash Results Laboratory Results: 12/08/19 05:16 12/08/19 05:16 11/29/19 11/29/19 11/29/19 08:00 20:33 20:33 Creatine Kinase < 20 L CK-MB (CK-2) < 0.22 Troponin I < 0.012 < 0.012 11/30/19 11/30/19 11/30/19 06:30 06:30 14:30 Creatine Kinase 21 L 20 L CK-MB (CK-2) < 0.22 Troponin I < 0.012 11/30/19 14:30 Creatine Kinase CK-MB (CK-2) < 0.22 Troponin I < 0.012 Impressions: Chest X-Ray 11/29/19 07:38 IMPRESSION: 1. NO ACUTE RADIOGRAPHIC FINDING IN THE CHEST. 2. Borderline cardiomegaly, stable finding. Shoulder X-Ray 12/08/19 00:00 IMPRESSION: No evidence of acute osseous injury. Trace rotator cuff calcific tendinopathy. 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 Is this a current diagnosis for this admission?: Yes (2) Anemia, sickle cell with crisis Is this a current diagnosis for this admission?: Yes - Time Time Spent with patient: 15-24 minutes Level of Care: TELE Medications reviewed and adjusted accordingly: Yes Anticipated discharge: Other Within: Other - Plan Summary Plan Summary: Continues to current medications
[2019-12-09] MEDS: NORMAL SALINE 1000 ML 1,000 ML with POTASSIUM CHLORIDE 20 MEQ, MAGNESIUM SULFATE 8 MEQ,... IV SCH ×5 (17:30)
[2019-12-10] MEDS: PROMETHAZINE HCL INJ 25 MG/1 ML VIAL IV PRN ×5 (00:36→23:19)
[2019-12-10] MEDS: HYDROMORPHONE HCL INJ/PF 2 MG/ML AMPULE IV PRN ×8 (00:36→22:09)
[2019-12-10] MEDS: 1/2 NORMAL SALINE 1,000 ML IV PRN ×3 (02:07→22:10)
[2019-12-10] MEDS: DIPHENHYDRAMINE HCL 50 MG/ML VIAL IV PRN ×4 (03:15→22:02)
[2019-12-10] MEDS: GABAPENTIN 300 MG CAPSULE PO SCH ×2 (09:38→22:02)
[2019-12-10] MEDS: CHOLECALCIFEROL (D3) 1,000 UNIT (25 MCG) TABLET PO SCH (09:38)
[2019-12-10] MEDS: HYDROXYUREA 500 MG CAPSULE PO SCH ×3 (09:38→18:55)
[2019-12-10] MEDS: FOLIC ACID 1 MG TABLET PO SCH (09:38)
[2019-12-10] MEDS: DEFERASIROX 360 MG PO SCH (09:39)
[2019-12-10] MEDS: OXYCODONE HCL SR 10 MG TABLET PO SCH ×2 (09:39→22:01)
[2019-12-10] MEDS: ENOXAPARIN SODIUM INJ 40 MG/0.4 ML DISP.SYRIN SUBCUT SCH (09:39)
[2019-12-10] MEDS: NORMAL SALINE 1000 ML 1,000 ML with POTASSIUM CHLORIDE 20 MEQ, MAGNESIUM SULFATE 8 MEQ,... IV SCH ×5 (17:24)
[2019-12-10 18:43] LABS: HEMATOCRIT 16.2 % (36.0-47.0); MEAN CORPUSCULAR HEMOGLOBIN 47.8 pg (27.0-33.4); PLATELET COUNT 155 10^3/uL (150-450); RED BLOOD COUNT 1.22 10^6/uL (3.72-5.28); RED CELL DISTRIBUTION WIDTH 19.9 % (11.5-14.0); WHITE BLOOD COUNT 4.3 10^3/uL (4.0-10.5)
[2019-12-10 19:10] LABS: MEAN CORPUSCULAR VOLUME 133 fl (80-97)
[2019-12-10 19:20] LABS: HEMOGLOBIN 5.8 g/dL (12.0-15.5)
--- NOTE | 2019-12-10 22:50 | PDOC PROGRESS REPORT ---
Subjective Progress Note for:: 12/10/19 Subjective:: Patient seen by the bedside, no new complaints,she has anemia Reason For Visit: VASO-OCCLUSIVE PAIN DUE TO SICKLE CELL DISEASE Physical Exam Vital Signs: Temp Pulse Resp BP Pulse Ox 99.8 F 86 15 90/58 L 99 12/10/19 15:24 12/10/19 15:24 12/10/19 15:24 12/10/19 15:24 12/10/19 15:24 Intake & Output 12/09/19 12/10/19 12/11/19 06:59 06:59 06:59 Intake Total 3218 4694 2444 Output Total 1 Balance 3218 4694 2443 Weight 65.7 kg 66.7 kg General appearance: PRESENT: no acute distress Eye exam: PRESENT: PERRLA Respiratory exam: PRESENT: clear to auscultation carolyn Cardiovascular exam: PRESENT: +S1, +S2 GI/Abdominal exam: PRESENT: soft Results Laboratory Results: 12/10/19 17:58 12/08/19 05:16 12/10/19 17:58 WBC 4.3 RBC 1.22 L Hgb 5.8 L Hct 16.2 L MCV 133 H D MCH 47.8 H MCHC 36.0 RDW 19.9 H Plt Count 155 11/29/19 11/29/19 11/29/19 08:00 20:33 20:33 Creatine Kinase < 20 L CK-MB (CK-2) < 0.22 Troponin I < 0.012 < 0.012 11/30/19 11/30/19 11/30/19 06:30 06:30 14:30 Creatine Kinase 21 L 20 L CK-MB (CK-2) < 0.22 Troponin I < 0.012 11/30/19 14:30 Creatine Kinase CK-MB (CK-2) < 0.22 Troponin I < 0.012 Impressions: Chest X-Ray 11/29/19 07:38 IMPRESSION: 1. NO ACUTE RADIOGRAPHIC FINDING IN THE CHEST. 2. Borderline cardiomegaly, stable finding. Shoulder X-Ray 12/08/19 00:00 IMPRESSION: No evidence of acute osseous injury. Trace rotator cuff calcific tendinopathy. 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 Is this a current diagnosis for this admission?: Yes (2) Sickle cell anemia Qualifiers: Sickle-cell associated disorders: with unspecified crisis Qualified Code(s): D57.00 - Hb-SS disease with crisis, unspecified; D57.0 - Hb-SS disease with crisis Is this a current diagnosis for this admission?: Yes (3) Secondary hemochromatosis Is this a current diagnosis for this admission?: Yes - Time Time Spent with patient: 15-24 minutes
[2019-12-11] MEDS: HYDROMORPHONE HCL INJ/PF 2 MG/ML AMPULE IV PRN ×8 (01:08→21:53)
[2019-12-11] MEDS: DIPHENHYDRAMINE HCL 50 MG/ML VIAL IV PRN ×4 (01:08→18:46)
[2019-12-11] MEDS: PROMETHAZINE HCL INJ 25 MG/1 ML VIAL IV PRN ×4 (03:41→21:52)
[2019-12-11] MEDS: DEFERASIROX 360 MG PO SCH (09:22)
[2019-12-11] MEDS: HYDROXYUREA 500 MG CAPSULE PO SCH ×3 (09:23→17:36)
[2019-12-11] MEDS: CHOLECALCIFEROL (D3) 1,000 UNIT (25 MCG) TABLET PO SCH (09:23)
[2019-12-11] MEDS: ENOXAPARIN SODIUM INJ 40 MG/0.4 ML DISP.SYRIN SUBCUT SCH (09:24)
[2019-12-11] MEDS: GABAPENTIN 300 MG CAPSULE PO SCH ×2 (09:24→21:52)
[2019-12-11] MEDS: FOLIC ACID 1 MG TABLET PO SCH (09:24)
[2019-12-11] MEDS: OXYCODONE HCL SR 10 MG TABLET PO SCH ×2 (09:25→21:52)
[2019-12-11] MEDS: 1/2 NORMAL SALINE 1,000 ML IV PRN (11:15)
--- NOTE | 2019-12-11 14:11 | PDOC PROGRESS REPORT ---
Subjective Progress Note for:: 12/11/19 Subjective:: Patient states that she was able to walk in the [place] some yesterday after pain meds were increased. She is still not eating very well, but trying to drink. No new problems voiced. She is anxious to go home, but knows that her pain is not well enough controlled yet. Reason For Visit: VASO-OCCLUSIVE PAIN DUE TO SICKLE CELL DISEASE Physical Exam Vital Signs: Temp Pulse Resp BP Pulse Ox 99.3 F 91 22 H 95/51 L 98 12/11/19 12:05 12/11/19 12:05 12/11/19 12:05 12/11/19 12:05 12/11/19 12:05 Intake & Output 12/10/19 12/11/19 12/12/19 06:59 06:59 06:59 Intake Total 4694 2965 916 Output Total 1 Balance 4694 2964 916 Weight 66.7 kg 67.6 kg General appearance: PRESENT: no acute distress, well-developed, well-nourished Head exam: PRESENT: normocephalic Respiratory exam: PRESENT: unlabored Neurological exam: PRESENT: alert, awake, oriented to person, oriented to place, oriented to time, oriented to situation Psychiatric exam: PRESENT: appropriate affect Skin exam: PRESENT: normal color Results Laboratory Results: 12/10/19 17:58 12/08/19 05:16 12/10/19 17:58 WBC 4.3 RBC 1.22 L Hgb 5.8 L Hct 16.2 L MCV 133 H D MCH 47.8 H MCHC 36.0 RDW 19.9 H Plt Count 155 11/29/19 11/29/19 11/29/19 08:00 20:33 20:33 Creatine Kinase < 20 L CK-MB (CK-2) < 0.22 Troponin I < 0.012 < 0.012 11/30/19 11/30/19 11/30/19 06:30 06:30 14:30 Creatine Kinase 21 L 20 L CK-MB (CK-2) < 0.22 Troponin I < 0.012 11/30/19 14:30 Creatine Kinase CK-MB (CK-2) < 0.22 Troponin I < 0.012 Impressions: Chest X-Ray 11/29/19 07:38 IMPRESSION: 1. NO ACUTE RADIOGRAPHIC FINDING IN THE CHEST. 2. Borderline cardiomegaly, stable finding. Shoulder X-Ray 12/08/19 00:00 IMPRESSION: No evidence of acute osseous injury. Trace rotator cuff calcific tendinopathy. 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 Is this a current diagnosis for this admission?: Yes Plan: Her HGB was stable! Continue O2 2L NC and 1/2 NS. Continue to encourage amb ulation. Will keep pain meds the same for 1 more day, then will again wean. - Time Time Spent with patient: 15-24 minutes
[2019-12-11] MEDS: NORMAL SALINE 1000 ML 1,000 ML with POTASSIUM CHLORIDE 20 MEQ, MAGNESIUM SULFATE 8 MEQ,... IV SCH ×5 (17:36)
--- NOTE | 2019-12-11 20:28 | PDOC PROGRESS REPORT ---
Subjective Progress Note for:: 12/11/19 Subjective:: Patient seen by the bedside, she complain of pain Reason For Visit: VASO-OCCLUSIVE PAIN DUE TO SICKLE CELL DISEASE Physical Exam Vital Signs: Temp Pulse Resp BP Pulse Ox 99.7 F 87 21 H 101/50 L 100 12/11/19 16:48 12/11/19 16:48 12/11/19 16:48 12/11/19 16:48 12/11/19 16:48 Intake & Output 12/10/19 12/11/19 12/12/19 06:59 06:59 06:59 Intake Total 4694 3988 1598 Output Total 1 Balance 4694 3987 1598 Weight 66.7 kg 67.6 kg General appearance: PRESENT: no acute distress Eye exam: PRESENT: PERRLA GI/Abdominal exam: PRESENT: soft Neurological exam: PRESENT: alert Results Laboratory Results: 12/10/19 17:58 12/08/19 05:16 11/29/19 11/29/19 11/29/19 08:00 20:33 20:33 Creatine Kinase < 20 L CK-MB (CK-2) < 0.22 Troponin I < 0.012 < 0.012 11/30/19 11/30/19 11/30/19 06:30 06:30 14:30 Creatine Kinase 21 L 20 L CK-MB (CK-2) < 0.22 Troponin I < 0.012 11/30/19 14:30 Creatine Kinase CK-MB (CK-2) < 0.22 Troponin I < 0.012 Impressions: Chest X-Ray 11/29/19 07:38 IMPRESSION: 1. NO ACUTE RADIOGRAPHIC FINDING IN THE CHEST. 2. Borderline cardiomegaly, stable finding. Shoulder X-Ray 12/08/19 00:00 IMPRESSION: No evidence of acute osseous injury. Trace rotator cuff calcific tendinopathy. 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 Is this a current diagnosis for this admission?: Yes Plan: Her HGB was stable! Continue O2 2L NC and 1/2 NS. Continue to encourage ambulation. Will keep pain meds the same for 1 more day, then will again wean. (2) Sickle cell anemia Qualifiers: Sickle-cell associated disorders: with unspecified crisis Qualified Code(s): D57.00 - Hb-SS disease with crisis, unspecified; D57.0 - Hb-SS disease with crisis Is this a current diagnosis for this admission?: Yes (3) Secondary hemochromatosis Is this a current diagnosis for this admission?: Yes - Time Time Spent with patient: 15-24 minutes Level of Care: MEDICAL Medications reviewed and adjusted accordingly: Yes
[2019-12-12] MEDS: DIPHENHYDRAMINE HCL 50 MG/ML VIAL IV PRN ×5 (00:46→21:37)
[2019-12-12] MEDS: HYDROMORPHONE HCL INJ/PF 2 MG/ML AMPULE IV PRN ×7 (00:47→21:38)
[2019-12-12] MEDS: PROMETHAZINE HCL INJ 25 MG/1 ML VIAL IV PRN ×2 (03:39→11:18)
--- NOTE | 2019-12-12 08:54 | PDOC PROGRESS REPORT ---
Subjective Progress Note for:: 12/12/19 Subjective:: Still with pain today, not feeling ready to decrease pain medication Reason For Visit: VASO-OCCLUSIVE PAIN DUE TO SICKLE CELL DISEASE Physical Exam Vital Signs: Temp Pulse Resp BP Pulse Ox 98.7 F 85 18 95/47 L 98 12/12/19 07:59 12/12/19 07:59 12/12/19 07:59 12/12/19 07:59 12/12/19 07:59 Intake & Output 12/11/19 12/12/19 12/13/19 06:59 06:59 06:59 Intake Total 3988 2300 Output Total 1 Balance 3987 2300 Weight 67.6 kg 65.9 kg General appearance: PRESENT: no acute distress, well-developed, well-nourished Head exam: PRESENT: atraumatic, normocephalic Eye exam: PRESENT: conjunctiva pink, EOMI, PERRLA. ABSENT: scleral icterus Ear exam: PRESENT: normal external ear exam Mouth exam: PRESENT: moist, tongue midline Neck exam: ABSENT: carotid bruit, JVD, lymphadenopathy, thyromegaly Respiratory exam: PRESENT: clear to auscultation carolyn. ABSENT: rales, rhonchi, wheezes Cardiovascular exam: PRESENT: RRR. ABSENT: diastolic murmur, rubs, systolic murmur Pulses: PRESENT: normal dorsalis pedis pul Vascular exam: PRESENT: normal capillary refill GI/Abdominal exam: PRESENT: normal bowel sounds, soft. ABSENT: distended, guarding, mass, organolmegaly, rebound, tenderness Rectal exam: PRESENT: deferred Extremities exam: PRESENT: full ROM. ABSENT: calf tenderness, clubbing, pedal edema Neurological exam: PRESENT: alert, awake, oriented to person, oriented to place, oriented to time, oriented to situation, CN II-XII grossly intact. ABSENT: motor sensory deficit Psychiatric exam: PRESENT: appropriate affect, normal mood. ABSENT: homicidal ideation, suicidal ideation Skin exam: PRESENT: dry, intact, warm. ABSENT: cyanosis, rash Results Laboratory Results: 12/10/19 17:58 12/08/19 05:16 11/29/19 11/29/19 11/29/19 08:00 20:33 20:33 Creatine Kinase < 20 L CK-MB (CK-2) < 0.22 Troponin I < 0.012 < 0.012 11/30/19 11/30/19 11/30/19 06:30 06:30 14:30 Creatine Kinase 21 L 20 L CK-MB (CK-2) < 0.22 Troponin I < 0.012 11/30/19 14:30 Creatine Kinase CK-MB (CK-2) < 0.22 Troponin I < 0.012 Impressions: Chest X-Ray 11/29/19 07:38 IMPRESSION: 1. NO ACUTE RADIOGRAPHIC FINDING IN THE CHEST. 2. Borderline cardiomegaly, stable finding. Shoulder X-Ray 12/08/19 00:00 IMPRESSION: No evidence of acute osseous injury. Trace rotator cuff calcific tendinopathy. Assessment & Plan - Diagnosis (1) Hb-SS disease with vaso-occlusive crisis Is this a current diagnosis for this admission?: Yes Plan: Continue with current therapy for now, hopeful weaning of pain medication by tomorrow (2) Anemia, sickle cell with crisis Is this a current diagnosis for this admission?: Yes Plan: The globin in the 5 range, hold on transfusion - Time Time Spent with patient: 15-24 minutes
[2019-12-12] MEDS: OXYCODONE HCL SR 10 MG TABLET PO SCH ×2 (11:15→21:37)
[2019-12-12] MEDS: GABAPENTIN 300 MG CAPSULE PO SCH ×2 (11:17→21:37)
[2019-12-12] MEDS: CHOLECALCIFEROL (D3) 1,000 UNIT (25 MCG) TABLET PO SCH (11:17)
[2019-12-12] MEDS: FOLIC ACID 1 MG TABLET PO SCH (11:18)
[2019-12-12] MEDS: DEFERASIROX 360 MG PO SCH (11:23)
[2019-12-12] MEDS: HYDROXYUREA 500 MG CAPSULE PO SCH ×3 (11:23→17:21)
[2019-12-12] MEDS: ERGOCALCIFEROL (VITAMIN D2) 50000 UNIT (1.25 MG) CAPSULE PO SCH (11:24)
[2019-12-12] MEDS: ENOXAPARIN SODIUM INJ 40 MG/0.4 ML DISP.SYRIN SUBCUT SCH (11:28)
[2019-12-12] MEDS: NORMAL SALINE 1000 ML 1,000 ML with POTASSIUM CHLORIDE 20 MEQ, MAGNESIUM SULFATE 8 MEQ,... IV SCH ×5 (17:21)
--- NOTE | 2019-12-12 18:23 | PDOC PROGRESS REPORT ---
Subjective Progress Note for:: 12/12/19 Subjective:: She complains of right shoulder pain, she said she cannot rotate the right shoulder, she cannot elevate the shoulder, MRI of the shoulder to be ordered to rule out rotator cuff tear Reason For Visit: VASO-OCCLUSIVE PAIN DUE TO SICKLE CELL DISEASE Physical Exam Vital Signs: Temp Pulse Resp BP Pulse Ox 99.7 F 90 18 95/51 L 96 12/12/19 15:25 12/12/19 15:25 12/12/19 15:25 12/12/19 15:25 12/12/19 15:25 Intake & Output 12/11/19 12/12/19 12/13/19 06:59 06:59 06:59 Intake Total 3988 3323 1125 Output Total 1 Balance 3987 3323 1125 Weight 67.6 kg 65.9 kg General appearance: PRESENT: no acute distress Eye exam: PRESENT: PERRLA Respiratory exam: PRESENT: clear to auscultation carolyn Cardiovascular exam: PRESENT: +S1, +S2 GI/Abdominal exam: PRESENT: soft Musculoskeletal exam: PRESENT: tenderness, other - Reduced range of motion right shoulder Neurological exam: PRESENT: alert, CN II-XII grossly intact Results Laboratory Results: 12/10/19 17:58 12/08/19 05:16 11/29/19 11/29/19 11/29/19 08:00 20:33 20:33 Creatine Kinase < 20 L CK-MB (CK-2) < 0.22 Troponin I < 0.012 < 0.012 11/30/19 11/30/19 11/30/19 06:30 06:30 14:30 Creatine Kinase 21 L 20 L CK-MB (CK-2) < 0.22 Troponin I < 0.012 11/30/19 14:30 Creatine Kinase CK-MB (CK-2) < 0.22 Troponin I < 0.012 Impressions: Chest X-Ray 11/29/19 07:38 IMPRESSION: 1. NO ACUTE RADIOGRAPHIC FINDING IN THE CHEST. 2. Borderline cardiomegaly, stable finding. Shoulder X-Ray 12/08/19 00:00 IMPRESSION: No evidence of acute osseous injury. Trace rotator cuff calcific tendinopathy. 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 Is this a current diagnosis for this admission?: Yes (2) Sickle cell anemia Qualifiers: Sickle-cell associated disorders: with unspecified crisis Qualified Code(s): D57.00 - Hb-SS disease with crisis, unspecified; D57.0 - Hb-SS disease with crisis Is this a current diagnosis for this admission?: Yes (3) Secondary hemochromatosis Is this a current diagnosis for this admission?: Yes (4) Pain in right shoulder Qualifiers: Chronicity: acute Qualified Code(s): M25.511 - Pain in right shoulder Is this a current diagnosis for this admission?: Yes Plan: MRI of the shoulder to rule out rotator cuff injury - Time Time Spent with patient: 25-34 minutes Level of Care: CU
--- NOTE | 2019-12-12 19:32 | RADIOLOGY REPORT (SQ) ---
EXAM DESCRIPTION: MRI RT UPPER JOINT WITHOUT IMAGES COMPLETED DATE/TIME: 12/12/2019 5:24 pm REASON FOR STUDY: MRI RIGHT SHOULDER ? ROTATOR CUFF TEAR. Right shoulder pain and decreased range o f motion. Weakness. Calcific tendinosis seen on radiograph. Cannot lift arm overhead. Symptoms fo r 2 weeks. COMPARISON: Shoulder radiograph, 12/08/2019. TECHNIQUE: Right shoulder images acquired and stored on PACS. Multiplanar imaging to include fat sen sitive sequences such as T1, water sensitive sequences such as FST2/STIR, cartilage sensitive sequenc es such as FSPD/gradient-echo sequences. LIMITATIONS: None. FINDINGS: BONE MARROW AND CORTEX: Heterogeneous bone marrow signal may represent reactivated bone ma rrow. There are some subchondral cystic change at the far lateral humeral head. No acute fracture. JOINT OR BURSAL EFFUSION: No significant joint effusion. Small amount of fluid in the subacromion bu rsa. No suggestion of loose bodies. GLENO-HUMERAL ARTICULATION: Normal articulation. No subluxation. No cystic change. No osteophytes or cartilage loss. ACROMION AND AC JOINT: No down-sloping or distal spur. Sub-acromial space maintained. No significa nt AC joint arthropathy. ROTATOR CUFF AND INTERVAL: There is abnormal signal in the articular surface supraspinatus tendon sug gestive of a partial tear. Supraspinatus, subscapularis, and teres minor tendons are intact. No rotator interval thickening to suggest adhesive capsulitis. LABRUM AND BICEPS LABRAL COMPLEX: Grossly intact. Biceps tendon is in appropriate position in the b icipital groove. No evidence of bicipital tendon tear. REMAINDER OF LABRUM AND IGHL : No gross tear or paralabral cyst formation. Labral evaluation is less than optimal without joint distention. No thickening of IGHL to suggest adhesive capsulitis. PERIARTICULAR AND ADJACENT SOFT TISSUES: No masses or abnormal nodes. OTHER: No other significant finding. IMPRESSION: 1. Partial thickness tear articular surface supraspinatus tendon. 2. Small amount of fluid in the subacromion bursa. 3. Chronic degenerative change at the humeral head. 4. Heterogeneous bone marrow signal suggestive of reactivated bone marrow. Clinical correlation for anemia recommended. TECHNICAL DOCUMENTATION: JOB ID: [id number] 2010 [employer]- All Rights Reserved Reading location - IP/workstation name: [email or web address]
[2019-12-13] MEDS: PROMETHAZINE HCL INJ 25 MG/1 ML VIAL IV PRN ×3 (00:58→13:23)
[2019-12-13] MEDS: HYDROMORPHONE HCL INJ/PF 2 MG/ML AMPULE IV PRN ×8 (00:58→23:12)
[2019-12-13] MEDS: DIPHENHYDRAMINE HCL 50 MG/ML VIAL IV PRN ×4 (03:56→22:09)
--- NOTE | 2019-12-13 08:15 | PDOC PROGRESS REPORT ---
Subjective Progress Note for:: 12/13/19 Subjective:: Patient doing better today, discussed MRI results with her, she feels ready to decrease her pain medication. I discussed that if she is doing well she may be able to go home tomorrow. Reason For Visit: VASO-OCCLUSIVE PAIN DUE TO SICKLE CELL DISEASE Physical Exam Vital Signs: Temp Pulse Resp BP Pulse Ox 98.7 F 77 18 96/55 L 96 12/13/19 03:32 12/13/19 07:00 12/13/19 03:32 12/13/19 03:32 12/13/19 03:32 Intake & Output 12/12/19 12/13/19 12/14/19 06:59 06:59 06:59 Intake Total 3323 1805 Balance 3323 1805 Weight 65.9 kg 65.1 kg General appearance: PRESENT: no acute distress, well-developed, well-nourished Head exam: PRESENT: atraumatic, normocephalic Eye exam: PRESENT: conjunctiva pink, EOMI, PERRLA. ABSENT: scleral icterus Ear exam: PRESENT: normal external ear exam Mouth exam: PRESENT: moist, tongue midline Neck exam: ABSENT: carotid bruit, JVD, lymphadenopathy, thyromegaly Respiratory exam: PRESENT: clear to auscultation carolyn. ABSENT: rales, rhonchi, wheezes Cardiovascular exam: PRESENT: RRR. ABSENT: diastolic murmur, rubs, systolic murmur Pulses: PRESENT: normal dorsalis pedis pul Vascular exam: PRESENT: normal capillary refill GI/Abdominal exam: PRESENT: normal bowel sounds, soft. ABSENT: distended, guarding, mass, organolmegaly, rebound, tenderness Rectal exam: PRESENT: deferred Extremities exam: PRESENT: full ROM. ABSENT: calf tenderness, clubbing, pedal edema Neurological exam: PRESENT: alert, awake, oriented to person, oriented to place, oriented to time, oriented to situation, CN II-XII grossly intact. ABSENT: motor sensory deficit Psychiatric exam: PRESENT: appropriate affect, normal mood. ABSENT: homicidal ideation, suicidal ideation Skin exam: PRESENT: dry, intact, warm. ABSENT: cyanosis, rash Results Laboratory Results: 12/10/19 17:58 12/08/19 05:16 11/29/19 11/29/19 11/29/19 08:00 20:33 20:33 Creatine Kinase < 20 L CK-MB (CK-2) < 0.22 Troponin I < 0.012 < 0.012 11/30/19 11/30/19 11/30/19 06:30 06:30 14:30 Creatine Kinase 21 L 20 L CK-MB (CK-2) < 0.22 Troponin I < 0.012 11/30/19 14:30 Creatine Kinase CK-MB (CK-2) < 0.22 Troponin I < 0.012 Impressions: Chest X-Ray 11/29/19 07:38 IMPRESSION: 1. NO ACUTE RADIOGRAPHIC FINDING IN THE CHEST. 2. Borderline cardiomegaly, stable finding. Shoulder X-Ray 12/08/19 00:00 IMPRESSION: No evidence of acute osseous injury. Trace rotator cuff calcific tendinopathy. Upper Extremity MRI 12/12/19 00:00 IMPRESSION: 1. Partial thickness tear articular surface supraspinatus tendon. 2. Small amount of fluid in the subacromion bursa. 3. Chronic degenerative change at the humeral head. 4. Heterogeneous bone marrow signal suggestive of reactivated bone marrow. Clinical correlation for anemia recommended. Assessment & Plan - Diagnosis (1) Hb-SS disease with vaso-occlusive crisis Is this a current diagnosis for this admission?: Yes Plan: Continue with current therapy but decrease Dilaudid. (2) Anemia, sickle cell with crisis Is this a current diagnosis for this admission?: Yes Plan: Hold on transfusion - Time Time Spent with patient: 15-24 minutes
[2019-12-13] MEDS: ENOXAPARIN SODIUM INJ 40 MG/0.4 ML DISP.SYRIN SUBCUT SCH (10:08)
[2019-12-13] MEDS: OXYCODONE HCL SR 10 MG TABLET PO SCH ×2 (10:17→22:08)
[2019-12-13] MEDS: HYDROXYUREA 500 MG CAPSULE PO SCH ×3 (10:18→17:30)
[2019-12-13] MEDS: GABAPENTIN 300 MG CAPSULE PO SCH ×2 (10:18→22:09)
[2019-12-13] MEDS: CHOLECALCIFEROL (D3) 1,000 UNIT (25 MCG) TABLET PO SCH (10:18)
[2019-12-13] MEDS: FOLIC ACID 1 MG TABLET PO SCH (10:18)
[2019-12-13] MEDS: DEFERASIROX 360 MG PO SCH (10:18)
[2019-12-13] MEDS: NORMAL SALINE 1000 ML 1,000 ML with POTASSIUM CHLORIDE 20 MEQ, MAGNESIUM SULFATE 8 MEQ,... IV SCH ×5 (17:31)
--- NOTE | 2019-12-13 21:59 | PDOC PROGRESS REPORT ---
Subjective Progress Note for:: 12/13/19 Subjective:: Seen by the bedside no new complaints Reason For Visit: VASO-OCCLUSIVE PAIN DUE TO SICKLE CELL DISEASE Physical Exam Vital Signs: Temp Pulse Resp BP Pulse Ox 99.0 F 74 18 90/50 L 97 12/13/19 14:57 12/13/19 19:00 12/13/19 14:57 12/13/19 14:57 12/13/19 14:57 Intake & Output 12/12/19 12/13/19 12/14/19 06:59 06:59 06:59 Intake Total 3323 2828 1450 Balance 3323 2828 1450 Weight 65.9 kg 65.1 kg 65.1 kg General appearance: PRESENT: no acute distress Eye exam: PRESENT: PERRLA Respiratory exam: PRESENT: clear to auscultation carolyn Cardiovascular exam: PRESENT: +S1, +S2 GI/Abdominal exam: PRESENT: soft Results Laboratory Results: 12/10/19 17:58 12/08/19 05:16 11/29/19 11/29/19 11/29/19 08:00 20:33 20:33 Creatine Kinase < 20 L CK-MB (CK-2) < 0.22 Troponin I < 0.012 < 0.012 11/30/19 11/30/19 11/30/19 06:30 06:30 14:30 Creatine Kinase 21 L 20 L CK-MB (CK-2) < 0.22 Troponin I < 0.012 11/30/19 14:30 Creatine Kinase CK-MB (CK-2) < 0.22 Troponin I < 0.012 Impressions: Chest X-Ray 11/29/19 07:38 IMPRESSION: 1. NO ACUTE RADIOGRAPHIC FINDING IN THE CHEST. 2. Borderline cardiomegaly, stable finding. Shoulder X-Ray 12/08/19 00:00 IMPRESSION: No evidence of acute osseous injury. Trace rotator cuff calcific tendinopathy. Upper Extremity MRI 12/12/19 00:00 IMPRESSION: 1. Partial thickness tear articular surface supraspinatus tendon. 2. Small amount of fluid in the subacromion bursa. 3. Chronic degenerative change at the humeral head. 4. Heterogeneous bone marrow signal suggestive of reactivated bone marrow. Clinical correlation for anemia recommended. 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 Is this a current diagnosis for this admission?: Yes (2) Sickle cell anemia Qualifiers: Sickle-cell associated disorders: with unspecified crisis Qualified Code(s): D57.00 - Hb-SS disease with crisis, unspecified; D57.0 - Hb-SS disease with crisis Is this a current diagnosis for this admission?: Yes (3) Secondary hemochromatosis Is this a current diagnosis for this admission?: Yes (4) Pain in right shoulder Qualifiers: Chronicity: acute Qualified Code(s): M25.511 - Pain in right shoulder Is this a current diagnosis for this admission?: Yes - Time Time Spent with patient: Less than 15 minutes Level of Care: MEDICAL
[2019-12-13] MEDS: 1/2 NORMAL SALINE 1,000 ML IV PRN (23:17)
[2019-12-14] MEDS: HYDROMORPHONE HCL INJ/PF 2 MG/ML AMPULE IV PRN ×7 (02:31→23:40)
[2019-12-14] MEDS: PROMETHAZINE HCL INJ 25 MG/1 ML VIAL IV PRN ×3 (02:32→20:35)
[2019-12-14] MEDS: DIPHENHYDRAMINE HCL 50 MG/ML VIAL IV PRN ×4 (05:42→23:41)
[2019-12-14] MEDS: ENOXAPARIN SODIUM INJ 40 MG/0.4 ML DISP.SYRIN SUBCUT SCH (09:54)
[2019-12-14] MEDS ORDERED: DISPOSABLE SUBCUT SCH (10:00)
[2019-12-14] MEDS ORDERED: EPOETIN ALFA EPBX SUBCUT SCH (10:00)
[2019-12-14] MEDS ORDERED: [UNRECOGNIZED DRUG - OTHER] SUBCUT SCH (10:00)
--- NOTE | 2019-12-14 10:40 | PDOC PROGRESS REPORT ---
Subjective Progress Note for:: 12/14/19 Subjective:: Patient states that she continues to feel terrible. She is weak and is in pain. She asks to check her labs again. She is wearing her oxygen and has been walking in [place]. ROS: No consitpation. No dyspnea Reason For Visit: VASO-OCCLUSIVE PAIN DUE TO SICKLE CELL DISEASE Physical Exam Vital Signs: Temp Pulse Resp BP Pulse Ox 98.3 F 72 17 89/53 L 100 12/14/19 07:58 12/14/19 07:58 12/14/19 07:58 12/14/19 07:58 12/14/19 07:58 Intake & Output 12/13/19 12/14/19 12/15/19 06:59 06:59 06:59 Intake Total 2828 3193 Balance 2828 3193 Weight 65.1 kg 65.6 kg General appearance: PRESENT: mild distress, well-nourished Head exam: PRESENT: normocephalic Eye exam: PRESENT: EOMI Respiratory exam: PRESENT: unlabored Neurological exam: PRESENT: alert, awake, oriented to person, oriented to place, oriented to time, oriented to situation Psychiatric exam: PRESENT: depressed, other - Tearful. Skin exam: PRESENT: normal color Results Laboratory Results: 12/10/19 17:58 12/08/19 05:16 11/29/19 11/29/19 11/29/19 08:00 20:33 20:33 Creatine Kinase < 20 L CK-MB (CK-2) < 0.22 Troponin I < 0.012 < 0.012 11/30/19 11/30/19 11/30/19 06:30 06:30 14:30 Creatine Kinase 21 L 20 L CK-MB (CK-2) < 0.22 Troponin I < 0.012 11/30/19 14:30 Creatine Kinase CK-MB (CK-2) < 0.22 Troponin I < 0.012 Impressions: Chest X-Ray 11/29/19 07:38 IMPRESSION: 1. NO ACUTE RADIOGRAPHIC FINDING IN THE CHEST. 2. Borderline cardiomegaly, stable finding. Shoulder X-Ray 12/08/19 00:00 IMPRESSION: No evidence of acute osseous injury. Trace rotator cuff calcific tendinopathy. Upper Extremity MRI 12/12/19 00:00 IMPRESSION: 1. Partial thickness tear articular surface supraspinatus tendon. 2. Small amount of fluid in the subacromion bursa. 3. Chronic degenerative change at the humeral head. 4. Heterogeneous bone marrow signal suggestive of reactivated bone marrow. Clinical correlation for anemia recommended. 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 Is this a current diagnosis for this admission?: Yes Plan: I will repeat labs today. Otherwise, continue treatment without changes. She will walk in [place] and continue good PO intake. - Time Time Spent with patient: Less than 15 minutes
[2019-12-14] MEDS: GABAPENTIN 300 MG CAPSULE PO SCH ×2 (10:54→23:40)
[2019-12-14] MEDS: CHOLECALCIFEROL (D3) 1,000 UNIT (25 MCG) TABLET PO SCH (10:54)
[2019-12-14] MEDS: FOLIC ACID 1 MG TABLET PO SCH (10:55)
[2019-12-14] MEDS: HYDROXYUREA 500 MG CAPSULE PO SCH ×3 (10:58→17:17)
[2019-12-14] MEDS: DEFERASIROX 360 MG PO SCH (10:58)
[2019-12-14] MEDS: 1/2 NORMAL SALINE 1,000 ML IV PRN (14:22)
[2019-12-14 16:12] LABS: ALBUMIN 4.2 g/dL (3.5-5.0); ALKALINE PHOSPHATASE 107 U/L (38-126); ANION GAP 7 (5-19); ASPARTATE AMINO TRANSFERASE 58 U/L (14-36); BILIRUBIN,TOTAL 2.1 mg/dL (0.2-1.3); BLOOD UREA NITROGEN 9 mg/dL (7-20); CALCIUM 9.2 mg/dL (8.4-10.2); CARBON DIOXIDE 25 mmol/L (22-30); CHLORIDE 105 mmol/L (98-107); GLUCOSE 114 mg/dL (75-110); POTASSIUM 4.7 mmol/L (3.6-5.0); TOTAL PROTEIN 7.4 g/dL (6.3-8.2)
[2019-12-14] MEDS: NORMAL SALINE 1000 ML 1,000 ML with POTASSIUM CHLORIDE 20 MEQ, MAGNESIUM SULFATE 8 MEQ,... IV SCH ×5 (17:17)
[2019-12-14 17:53] LABS: HEMATOCRIT 18.4 % (36.0-47.0); MEAN CORPUSCULAR VOLUME 136 fl (80-97); PLATELET COUNT 181 10^3/uL (150-450); RED BLOOD COUNT 1.36 10^6/uL (3.72-5.28); RED CELL DISTRIBUTION WIDTH 23.3 % (11.5-14.0); WHITE BLOOD COUNT 5.3 10^3/uL (4.0-10.5)
[2019-12-14 17:55] LABS: HEMOGLOBIN 6.6 g/dL (12.0-15.5)
[2019-12-14 18:01] LABS: ABSOLUTE LYMPHOCYTES# (MANUAL) 1.8 10^3/uL (0.5-4.7); ABSOLUTE MONOCYTES # (MANUAL) 0.1 10^3/uL (0.1-1.4); BASOPHILS % (MANUAL) 0 % (0-2); EOSINOPHILS % (MANUAL) 9 % (0-6); LYMPHOCYTES % (MANUAL) 34 % (13-45); MONOCYTES % (MANUAL) 2 % (3-13); NUCLEATED RED BLOOD CELLS 83 /100 WBC (0); SEGMENTED NEUTROPHILS % (MAN) 55 % (42-78); TOTAL CELLS COUNTED 100
[2019-12-14 18:05] LABS: ANISOCYTOSIS 3+; PLATELET COMMENT ADEQUATE; POIKILOCYTOSIS 1+; POLYCHROMASIA SLIGHT; SCHISTOCYTES SLIGHT; SICKLE RED CELLS SLIGHT; TARGET CELLS 1+; TEAR DROP CELLS SLIGHT
--- NOTE | 2019-12-14 22:26 | PDOC PROGRESS REPORT ---
Subjective Progress Note for:: 12/14/19 Subjective:: Seen by the bedside ,she complain of fatique Reason For Visit: VASO-OCCLUSIVE PAIN DUE TO SICKLE CELL DISEASE Physical Exam Vital Signs: Temp Pulse Resp BP Pulse Ox 97.8 F 81 18 93/59 L 99 12/14/19 19:34 12/14/19 19:34 12/14/19 19:34 12/14/19 19:34 12/14/19 19:34 Intake & Output 12/13/19 12/14/19 12/15/19 06:59 06:59 06:59 Intake Total 2828 3193 1222 Balance 2828 3193 1222 Weight 65.1 kg 65.6 kg General appearance: PRESENT: no acute distress Eye exam: PRESENT: PERRLA Respiratory exam: PRESENT: clear to auscultation carolyn Cardiovascular exam: PRESENT: +S1, +S2 GI/Abdominal exam: PRESENT: soft Neurological exam: PRESENT: alert Results Laboratory Results: 12/14/19 16:46 12/14/19 15:40 12/14/19 12/14/19 12/14/19 15:40 15:40 16:46 WBC Cancelled 5.3 RBC Cancelled 1.36 L Hgb Cancelled 6.6 L Hct Cancelled 18.4 L MCV Cancelled 136 H MCH Cancelled 49.0 H MCHC Cancelled 36.0 RDW Cancelled 23.3 H Plt Count Cancelled 181 Seg Neutrophils % Cancelled Not Reportable Sodium 137.3 Potassium 4.7 Chloride 105 Carbon Dioxide 25 Anion Gap 7 BUN 9 Creatinine 0.71 Est GFR ( Amer) > 60 Glucose 114 H Calcium 9.2 Total Bilirubin 2.1 H AST 58 H Alkaline Phosphatase 107 Total Protein 7.4 Albumin 4.2 11/29/19 11/29/19 11/29/19 08:00 20:33 20:33 Creatine Kinase < 20 L CK-MB (CK-2) < 0.22 Troponin I < 0.012 < 0.012 11/30/19 11/30/19 11/30/19 06:30 06:30 14:30 Creatine Kinase 21 L 20 L CK-MB (CK-2) < 0.22 Troponin I < 0.012 11/30/19 14:30 Creatine Kinase CK-MB (CK-2) < 0.22 Troponin I < 0.012 Impressions: Chest X-Ray 11/29/19 07:38 IMPRESSION: 1. NO ACUTE RADIOGRAPHIC FINDING IN THE CHEST. 2. Borderline cardiomegaly, stable finding. Shoulder X-Ray 12/08/19 00:00 IMPRESSION: No evidence of acute osseous injury. Trace rotator cuff calcific tendinopathy. Upper Extremity MRI 12/12/19 00:00 IMPRESSION: 1. Partial thickness tear articular surface supraspinatus tendon. 2. Small amount of fluid in the subacromion bursa. 3. Chronic degenerative change at the humeral head. 4. Heterogeneous bone marrow signal suggestive of reactivated bone marrow. Clinical correlation for anemia recommended. 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 Is this a current diagnosis for this admission?: Yes Plan: (2) Sickle cell anemia Qualifiers: Sickle-cell associated disorders: with unspecified crisis Qualified Code(s): D57.00 - Hb-SS disease with crisis, unspecified; D57.0 - Hb-SS disease with crisis Is this a current diagnosis for this admission?: Yes (3) Secondary hemochromatosis Is this a current diagnosis for this admission?: Yes (4) Pain in right shoulder Qualifiers: Chronicity: acute Qualified Code(s): M25.511 - Pain in right shoulder Is this a current diagnosis for this admission?: Yes - Time Time Spent with patient: 15-24 minutes Level of Care: CU
[2019-12-15] MEDS: 1/2 NORMAL SALINE 1,000 ML IV PRN ×2 (01:50→14:53)
[2019-12-15] MEDS: HYDROMORPHONE HCL INJ/PF 2 MG/ML AMPULE IV PRN ×7 (02:44→21:36)
[2019-12-15] MEDS: PROMETHAZINE HCL INJ 25 MG/1 ML VIAL IV PRN ×3 (02:45→17:43)
[2019-12-15] MEDS: DIPHENHYDRAMINE HCL 50 MG/ML VIAL IV PRN ×2 (08:25→14:44)
[2019-12-15] MEDS: GABAPENTIN 300 MG CAPSULE PO SCH ×2 (09:59→21:37)
[2019-12-15] MEDS: HYDROXYUREA 500 MG CAPSULE PO SCH ×3 (09:59→17:43)
[2019-12-15] MEDS: CHOLECALCIFEROL (D3) 1,000 UNIT (25 MCG) TABLET PO SCH (09:59)
[2019-12-15] MEDS: FOLIC ACID 1 MG TABLET PO SCH (09:59)
[2019-12-15] MEDS: DEFERASIROX 360 MG PO SCH (10:00)
[2019-12-15] MEDS: ENOXAPARIN SODIUM INJ 40 MG/0.4 ML DISP.SYRIN SUBCUT SCH (10:00)
--- NOTE | 2019-12-15 12:47 | PDOC PROGRESS REPORT ---
Subjective Progress Note for:: 12/15/19 Subjective:: Patient states that she is feeling about the same. No new problems. She is trying to walk today to get her strength back. She received her procrit yesterday. We discussed her blood counts. These have greatly improved. Reason For Visit: VASO-OCCLUSIVE PAIN DUE TO SICKLE CELL DISEASE Physical Exam Vital Signs: Temp Pulse Resp BP Pulse Ox 99.0 F 81 18 85/51 L 99 12/15/19 11:27 12/15/19 11:27 12/15/19 11:27 12/15/19 11:27 12/15/19 11:27 Intake & Output 12/14/19 12/15/19 12/16/19 06:59 06:59 06:59 Intake Total 3193 3492 Balance 3193 3492 Weight 65.6 kg 65.6 kg General appearance: PRESENT: no acute distress, well-developed, well-nourished Head exam: PRESENT: normocephalic Respiratory exam: PRESENT: unlabored Musculoskeletal exam: PRESENT: other - Decreased ROM right shoulder. Neurological exam: PRESENT: alert, awake, oriented to person, oriented to place, oriented to time, oriented to situation Psychiatric exam: PRESENT: appropriate affect Skin exam: PRESENT: normal color Results Laboratory Results: 12/14/19 16:46 12/14/19 15:40 12/14/19 12/14/19 12/14/19 15:40 15:40 16:46 WBC Cancelled 5.3 RBC Cancelled 1.36 L Hgb Cancelled 6.6 L Hct Cancelled 18.4 L MCV Cancelled 136 H MCH Cancelled 49.0 H MCHC Cancelled 36.0 RDW Cancelled 23.3 H Plt Count Cancelled 181 Seg Neutrophils % Cancelled Not Reportable Sodium 137.3 Potassium 4.7 Chloride 105 Carbon Dioxide 25 Anion Gap 7 BUN 9 Creatinine 0.71 Est GFR ( Amer) > 60 Glucose 114 H Calcium 9.2 Total Bilirubin 2.1 H AST 58 H Alkaline Phosphatase 107 Total Protein 7.4 Albumin 4.2 11/29/19 11/29/19 11/29/19 08:00 20:33 20:33 Creatine Kinase < 20 L CK-MB (CK-2) < 0.22 Troponin I < 0.012 < 0.012 11/30/19 11/30/19 11/30/19 06:30 06:30 14:30 Creatine Kinase 21 L 20 L CK-MB (CK-2) < 0.22 Troponin I < 0.012 11/30/19 14:30 Creatine Kinase CK-MB (CK-2) < 0.22 Troponin I < 0.012 Impressions: Chest X-Ray 11/29/19 07:38 IMPRESSION: 1. NO ACUTE RADIOGRAPHIC FINDING IN THE CHEST. 2. Borderline cardiomegaly, stable finding. Shoulder X-Ray 12/08/19 00:00 IMPRESSION: No evidence of acute osseous injury. Trace rotator cuff calcific tendinopathy. Upper Extremity MRI 12/12/19 00:00 IMPRESSION: 1. Partial thickness tear articular surface supraspinatus tendon. 2. Small amount of fluid in the subacromion bursa. 3. Chronic degenerative change at the humeral head. 4. Heterogeneous bone marrow signal suggestive of reactivated bone marrow. Clinical correlation for anemia recommended. 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 Is this a current diagnosis for this admission?: Yes Plan: I will decrease her pain meds again later today. Continue IVF and O2. Ready for discharge tomorrow from my standpoint. She will follow-up in office. - Time Time Spent with patient: Less than 15 minutes
[2019-12-15] MEDS: NORMAL SALINE 1000 ML 1,000 ML with POTASSIUM CHLORIDE 20 MEQ, MAGNESIUM SULFATE 8 MEQ,... IV SCH ×5 (17:44)
[2019-12-16] MEDS: HYDROMORPHONE HCL INJ/PF 2 MG/ML AMPULE IV PRN ×7 (00:50→21:53)
[2019-12-16] MEDS: PROMETHAZINE HCL INJ 25 MG/1 ML VIAL IV PRN ×3 (00:51→18:38)
[2019-12-16] MEDS: ENOXAPARIN SODIUM INJ 40 MG/0.4 ML DISP.SYRIN SUBCUT SCH (10:01)
[2019-12-16] MEDS: CHOLECALCIFEROL (D3) 1,000 UNIT (25 MCG) TABLET PO SCH (10:02)
[2019-12-16] MEDS: FOLIC ACID 1 MG TABLET PO SCH (10:02)
[2019-12-16] MEDS: GABAPENTIN 300 MG CAPSULE PO SCH ×2 (10:02→21:56)
[2019-12-16] MEDS: DEFERASIROX 360 MG PO SCH (10:02)
[2019-12-16] MEDS: HYDROXYUREA 500 MG CAPSULE PO SCH ×3 (10:02→17:32)
[2019-12-16] MEDS: 1/2 NORMAL SALINE 1,000 ML IV PRN (11:56)
[2019-12-16] MEDS: DIPHENHYDRAMINE HCL 50 MG/ML VIAL IV PRN ×2 (15:40→21:55)
[2019-12-16] MEDS: NORMAL SALINE 1000 ML 1,000 ML with POTASSIUM CHLORIDE 20 MEQ, MAGNESIUM SULFATE 8 MEQ,... IV SCH ×5 (17:32)
--- NOTE | 2019-12-16 19:59 | PDOC PROGRESS REPORT ---
Subjective Progress Note for:: 12/15/19 Subjective:: Patient continue to express right shoulder joint pain. No chest pain or difficulty with her breathing. Pain management is fairly satisfactory on current regimen. Reason For Visit: VASO-OCCLUSIVE PAIN DUE TO SICKLE CELL DISEASE Physical Exam Vital Signs: Temp Pulse Resp BP Pulse Ox 99.2 F 73 17 89/56 L 98 12/15/19 16:49 12/15/19 16:49 12/15/19 16:49 12/15/19 16:49 12/15/19 16:49 Intake & Output 12/14/19 12/15/19 12/16/19 06:59 06:59 06:59 Intake Total 3193 3492 1136 Balance 3193 3492 1136 Weight 65.6 kg 65.6 kg General appearance: PRESENT: no acute distress, well-developed, well-nourished Head exam: PRESENT: atraumatic, normocephalic Eye exam: PRESENT: conjunctiva pink. ABSENT: scleral icterus Mouth exam: PRESENT: moist Respiratory exam: PRESENT: clear to auscultation carolyn Cardiovascular exam: PRESENT: RRR, +S1, +S2. ABSENT: diastolic murmur, rubs, systolic murmur Vascular exam: ABSENT: pallor GI/Abdominal exam: PRESENT: normal bowel sounds, soft. ABSENT: organolmegaly, tenderness Extremities exam: PRESENT: tenderness Musculoskeletal exam: PRESENT: tenderness - right shoulder joint. ABSENT: full ROM - limited across right shoulder joint Neurological exam: PRESENT: alert, awake, oriented to person, oriented to place, oriented to time, oriented to situation Psychiatric exam: PRESENT: appropriate affect, normal mood. ABSENT: homicidal ideation, suicidal ideation Skin exam: PRESENT: dry, warm Results Laboratory Results: 12/14/19 16:46 12/14/19 15:40 11/29/19 11/29/19 11/29/19 08:00 20:33 20:33 Creatine Kinase < 20 L CK-MB (CK-2) < 0.22 Troponin I < 0.012 < 0.012 11/30/19 11/30/19 11/30/19 06:30 06:30 14:30 Creatine Kinase 21 L 20 L CK-MB (CK-2) < 0.22 Troponin I < 0.012 11/30/19 14:30 Creatine Kinase CK-MB (CK-2) < 0.22 Troponin I < 0.012 Impressions: Chest X-Ray 11/29/19 07:38 IMPRESSION: 1. NO ACUTE RADIOGRAPHIC FINDING IN THE CHEST. 2. Borderline cardiomegaly, stable finding. Shoulder X-Ray 12/08/19 00:00 IMPRESSION: No evidence of acute osseous injury. Trace rotator cuff calcific tendinopathy. Upper Extremity MRI 12/12/19 00:00 IMPRESSION: 1. Partial thickness tear articular surface supraspinatus tendon. 2. Small amount of fluid in the subacromion bursa. 3. Chronic degenerative change at the humeral head. 4. Heterogeneous bone marrow signal suggestive of reactivated bone marrow. Clinical correlation for anemia recommended. 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 Is this a current diagnosis for this admission?: Yes Plan: Continue current medication management. 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 (2) Secondary hemochromatosis Is this a current diagnosis for this admission?: Yes Plan: Continue current medication management. (3) Sickle cell anemia Qualifiers: Sickle-cell associated disorders: with unspecified crisis Qualified Code(s): D57.00 - Hb-SS disease with crisis, unspecified; D57.0 - Hb-SS disease with crisis Is this a current diagnosis for this admission?: Yes Plan: Continue current medication management. (4) Right rotator cuff tear Qualifiers: Rotator cuff tear extent: incomplete Encounter type: initial encounter Qualified Code(s): M75.111 - Incomplete rotator cuff tear or rupture of right shoulder, not specified as traumatic Is this a current diagnosis for this admission?: Yes Plan: Continue current medication management. she may benefit from orthopod evaluation or physical therapy intervention. (5) Right shoulder pain Qualifiers: Chronicity: acute Qualified Code(s): M25.511 - Pain in right shoulder Is this a current diagnosis for this admission?: Yes Plan: Continue current medication management. (6) Opioid dependence Qualifiers: Substance use status: with unspecified opioid-induced disorder Qualified Code(s): F11.29 - Opioid dependence with unspecified opioid-induced disorder Is this a current diagnosis for this admission?: Yes Plan: Continue current medication management. - Time Time Spent with patient: 25-34 minutes Level of Care: IMCU Medications reviewed and adjusted accordingly: Yes Anticipated discharge: Home with Homehealth Within: Other - Inpatient Certification Based on my medical assessment, after consideration of the patient's comorbidities, presenting symptoms, or acuity I expect that the services needed warrant INPATIENT care.: Yes I certify that my determination is in accordance with my understanding of Medicare's requirements for reasonable and necessary INPATIENT services [42 CFR 412.3e].: Yes Medical Necessity: Significant Comorbidiites Make Outpatient Treatment Too Risky, Need Close Monitoring Due to Risk of Patient Decompensation, Need For Continuous Telemetry Monitoring, Need for Pain Control, Risk of Complication if Not Cared For in Hospital, Risk of Diagnosis Which Will Require Inpatient Eval/Care/Monitoring Post Hospital Care: D/C General Freight Agent Documentation - Plan Summary Plan Summary: Continue current medication management.
--- NOTE | 2019-12-16 20:01 | PDOC PROGRESS REPORT ---
Subjective Progress Note for:: 12/16/19 Subjective:: Patient continue to report right shoulder joint pain. no fever always chill. No chest pain or difficulty with breathing. No nausea or vomiting. Reason For Visit: VASO-OCCLUSIVE PAIN DUE TO SICKLE CELL DISEASE Physical Exam Vital Signs: Temp Pulse Resp BP Pulse Ox 99.4 F 79 20 92/53 L 94 12/16/19 16:50 12/16/19 16:50 12/16/19 16:50 12/16/19 16:50 12/16/19 16:50 Intake & Output 12/15/19 12/16/19 12/17/19 06:59 06:59 06:59 Intake Total 3492 3681 342 Balance 3492 3681 342 Weight 65.6 kg 64.1 kg Physical Exam: General appearance: PRESENT: no acute distress, well-developed, well-nourished Head exam: PRESENT: atraumatic, normocephalic Eye exam: PRESENT: conjunctiva pink. ABSENT: pallor, scleral icterus Mouth exam: PRESENT: moist Respiratory exam: PRESENT: clear to auscultation carolyn Cardiovascular exam: PRESENT: RRR, +S1, +S2. ABSENT: diastolic murmur, rubs, systolic murmur GI/Abdominal exam: PRESENT: normal bowel sounds, soft. ABSENT: organomegaly, tenderness Extremities exam: PRESENT: tenderness Musculoskeletal exam: PRESENT: tenderness - right shoulder joint. ABSENT: full ROM - limited across right shoulder joint Neurological exam: PRESENT: alert, awake, oriented to person, oriented to place, oriented to time, oriented to situation Psychiatric exam: PRESENT: appropriate affect, normal mood. ABSENT: homicidal ideation, suicidal ideation Skin exam: PRESENT: dry, warm Results Laboratory Results: 12/14/19 16:46 12/14/19 15:40 11/29/19 11/29/19 11/29/19 08:00 20:33 20:33 Creatine Kinase < 20 L CK-MB (CK-2) < 0.22 Troponin I < 0.012 < 0.012 11/30/19 11/30/19 11/30/19 06:30 06:30 14:30 Creatine Kinase 21 L 20 L CK-MB (CK-2) < 0.22 Troponin I < 0.012 11/30/19 14:30 Creatine Kinase CK-MB (CK-2) < 0.22 Troponin I < 0.012 Impressions: Chest X-Ray 11/29/19 07:38 IMPRESSION: 1. NO ACUTE RADIOGRAPHIC FINDING IN THE CHEST. 2. Borderline cardiomegaly, stable finding. Shoulder X-Ray 12/08/19 00:00 IMPRESSION: No evidence of acute osseous injury. Trace rotator cuff calcific tendinopathy. Upper Extremity MRI 12/12/19 00:00 IMPRESSION: 1. Partial thickness tear articular surface supraspinatus tendon. 2. Small amount of fluid in the subacromion bursa. 3. Chronic degenerative change at the humeral head. 4. Heterogeneous bone marrow signal suggestive of reactivated bone marrow. Clinical correlation for anemia recommended. 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 Is this a current diagnosis for this admission?: Yes (2) Secondary hemochromatosis Is this a current diagnosis for this admission?: Yes (3) Sickle cell anemia Qualifiers: Sickle-cell associated disorders: with unspecified crisis Qualified Code(s): D57.00 - Hb-SS disease with crisis, unspecified; D57.0 - Hb-SS disease with crisis Is this a current diagnosis for this admission?: Yes (4) Right rotator cuff tear Qualifiers: Rotator cuff tear extent: incomplete Encounter type: initial encounter Qualified Code(s): M75.111 - Incomplete rotator cuff tear or rupture of right shoulder, not specified as traumatic Is this a current diagnosis for this admission?: Yes (5) Right shoulder pain Qualifiers: Chronicity: acute Qualified Code(s): M25.511 - Pain in right shoulder Is this a current diagnosis for this admission?: Yes (6) Opioid dependence Qualifiers: Substance use status: with unspecified opioid-induced disorder Qualified Code(s): F11.29 - Opioid dependence with unspecified opioid-induced disorder Is this a current diagnosis for this admission?: Yes - Time Time Spent with patient: 25-34 minutes Level of Care: IMCU Medications reviewed and adjusted accordingly: Yes Anticipated discharge: Home with Homehealth Within: Other - Inpatient Certification Based on my medical assessment, after consideration of the patient's comorbidities, presenting symptoms, or acuity I expect that the services needed warrant INPATIENT care.: Yes I certify that my determination is in accordance with my understanding of Medicare's requirements for reasonable and necessary INPATIENT services [42 CFR 412.3e].: Yes Medical Necessity: Significant Comorbidiites Make Outpatient Treatment Too Risky, Need Close Monitoring Due to Risk of Patient Decompensation, Need For Continuous Telemetry Monitoring, Need for Pain Control, Risk of Complication if Not Cared For in Hospital, Risk of Diagnosis Which Will Require Inpatient Eval/Care/Monitoring Post Hospital Care: D/C Edge Finisher Documentation - Plan Summary Plan Summary: Continue current medication management.
[2019-12-17] MEDS: HYDROMORPHONE HCL INJ/PF 2 MG/ML AMPULE IV PRN ×6 (00:53→16:51)
[2019-12-17] MEDS: PROMETHAZINE HCL INJ 25 MG/1 ML VIAL IV PRN ×3 (00:53→13:49)
[2019-12-17] MEDS: DIPHENHYDRAMINE HCL 50 MG/ML VIAL IV PRN ×3 (04:13→16:50)
--- NOTE | 2019-12-17 08:14 | PDOC PROGRESS REPORT ---
Subjective Progress Note for:: 12/17/19 Subjective:: Patient states that her shoulder is still painful. However, she is ready to go home today if she can leave before this evening so she can get a ride home. Narcotics have been weaned and she has done well. Her blood counts have improved. Reason For Visit: VASO-OCCLUSIVE PAIN DUE TO SICKLE CELL DISEASE Physical Exam Vital Signs: Temp Pulse Resp BP Pulse Ox 98.6 F 73 16 93/57 L 96 12/17/19 03:58 12/17/19 07:00 12/17/19 03:58 12/17/19 03:58 12/17/19 03:58 Intake & Output 12/16/19 12/17/19 12/18/19 06:59 06:59 06:59 Intake Total 3681 1665 Balance 3681 1665 Weight 64.1 kg 65.1 kg General appearance: PRESENT: no acute distress Head exam: PRESENT: normocephalic Eye exam: PRESENT: EOMI Respiratory exam: PRESENT: unlabored Extremities exam: ABSENT: pedal edema Neurological exam: PRESENT: alert, awake Psychiatric exam: PRESENT: appropriate affect Skin exam: PRESENT: normal color Results Laboratory Results: 12/14/19 16:46 12/14/19 15:40 11/29/19 11/29/19 11/29/19 08:00 20:33 20:33 Creatine Kinase < 20 L CK-MB (CK-2) < 0.22 Troponin I < 0.012 < 0.012 11/30/19 11/30/19 11/30/19 06:30 06:30 14:30 Creatine Kinase 21 L 20 L CK-MB (CK-2) < 0.22 Troponin I < 0.012 11/30/19 14:30 Creatine Kinase CK-MB (CK-2) < 0.22 Troponin I < 0.012 Impressions: Chest X-Ray 11/29/19 07:38 IMPRESSION: 1. NO ACUTE RADIOGRAPHIC FINDING IN THE CHEST. 2. Borderline cardiomegaly, stable finding. Shoulder X-Ray 12/08/19 00:00 IMPRESSION: No evidence of acute osseous injury. Trace rotator cuff calcific tendinopathy. Upper Extremity MRI 12/12/19 00:00 IMPRESSION: 1. Partial thickness tear articular surface supraspinatus tendon. 2. Small amount of fluid in the subacromion bursa. 3. Chronic degenerative change at the humeral head. 4. Heterogeneous bone marrow signal suggestive of reactivated bone marrow. Clinical correlation for anemia recommended. 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 Is this a current diagnosis for this admission?: Yes Plan: OK for discharge today. I will continue to write all narcotic Rx. She will follow-up in my office within 2-4 weeks. - Time Time Spent with patient: Less than 15 minutes
[2019-12-17] MEDS: DEFERASIROX 360 MG PO SCH (09:06)
[2019-12-17] MEDS: GABAPENTIN 300 MG CAPSULE PO SCH (09:06)
[2019-12-17] MEDS: FOLIC ACID 1 MG TABLET PO SCH (09:07)
[2019-12-17] MEDS: CHOLECALCIFEROL (D3) 1,000 UNIT (25 MCG) TABLET PO SCH (09:07)
[2019-12-17] MEDS: ENOXAPARIN SODIUM INJ 40 MG/0.4 ML DISP.SYRIN SUBCUT SCH (09:07)
[2019-12-17] MEDS: HYDROXYUREA 500 MG CAPSULE PO SCH ×3 (09:07→17:48)
[2019-12-17] MEDS: 1/2 NORMAL SALINE 1,000 ML IV PRN (11:32)
[2019-12-17 17:58] VITALS: BP 112/58
--- NOTE | 2019-12-17 18:49 | PDOC DISCHARGE SUMMARY ---
Impression - Admit/DC Date/PCP Admission Date/Primary Care Provider: 11/29/19 10:00 HOMA BARRAZA MD Discharge Date: 12/17/19 - Discharge Diagnosis (1) Vaso-occlusive pain due to sickle cell disease Is this a current diagnosis for this admission?: Yes (2) Sickle cell anemia Is this a current diagnosis for this admission?: Yes (3) Secondary hemochromatosis Is this a current diagnosis for this admission?: Yes (4) Pain in right shoulder Is this a current diagnosis for this admission?: Yes - Additional Information Resuscitation Status: Full Code Discharge Diet: As Tolerated Discharge Activity: Activity As Tolerated, Balance Activity w/Rest Referrals: HOMA BARRAZA MD [Primary Care Provider] - 12/25/19 10:30 am Home Medications: RX: Deferasirox [Jadenu] 360 mg PO DAILY 08/13/19 RX: Epoetin Federico [Procrit Inj 20,000 Unit/1 ml Vial (Renal)] 60,000 unit IJ FR@1000 08/13/19 RX: Ergocalciferol (Vitamin D2) [Vitamin D2] 50 mcg PO WE@1000 08/13/19 RX: Folic Acid 1 mg PO DAILY 08/13/19 RX: Gabapentin [Neurontin 300 mg Capsule] 300 mg PO Q12 08/13/19 RX: Hydroxyurea [Hydrea 500 mg Capsule] 500 mg PO TID 08/13/19 RX: Oxycodone HCl [Oxy-Ir 5 mg Tablet] 10 mg PO Q6HP PRN 08/13/19 RX: Cholecalciferol (Vitamin D3) [Vitamin D3 1000 Unit Tablet] 5,000 unit PO DAILY 11/29/19 RX: Oxycodone Myristate [Xtampza ER] 27 mg PO Q12 11/29/19 History of Present Illiness History of Present Illness: WILLIE ALAN is a 49 year old female, She has a history of sickle cell disease, sickle cell anemia, she is well-known to this hospital, multiple admission for vaso-occlusive bone pain crisis, she is opioid dependent, she came emergency room earlier today for evaluation of body pains, she has pain involving extremities, the torso, she also complained of chest pain but the chest pain is in the setting of generalized body pains. The twelve-lead EKG that was done did not show any ST segment deviation that suggest ischemia. She has chronic anemia with secondary hemochromatosis, the reticulocyte count is elevated suggesting increased bone marrow activity Hospital Course Hospital Course: Patient was admitted for the management of acute vaso-occlusive bone pain crisis. She also complained of pain of the right shoulder, MRI of the shoulder revealed partial-thickness tear of the articular surface supraspinatus tendon, chronic degenerative change at the humeral head,Pain crisis was managed by the oncologist with Dilaudid, IV fluid therapy Physical Exam Vital Signs: Temp Pulse Resp BP Pulse Ox 98.9 F 78 19 112/58 L 99 12/17/19 17:56 12/17/19 17:56 12/17/19 17:56 12/17/19 17:56 12/17/19 17:56 Intake & Output 12/16/19 12/17/19 12/18/19 06:59 06:59 06:59 Intake Total 3681 2665 866 Balance 3681 2665 866 Weight 64.1 kg 65.1 kg General appearance: PRESENT: no acute distress Eye exam: PRESENT: PERRLA Respiratory exam: PRESENT: clear to auscultation carolyn Cardiovascular exam: PRESENT: +S1, +S2 Neurological exam: PRESENT: alert, CN II-XII grossly intact Results Laboratory Results: WBC 5.3 10^3/uL (4.0-10.5) 12/14/19 16:46 RBC 1.36 10^6/uL (3.72-5.28) L 12/14/19 16:46 Hgb 6.6 g/dL (12.0-15.5) L 12/14/19 16:46 Hct 18.4 % (36.0-47.0) L 12/14/19 16:46 MCV 136 fl (80-97) H 12/14/19 16:46 MCH 49.0 pg (27.0-33.4) H 12/14/19 16:46 MCHC 36.0 g/dL (32.0-36.0) 12/14/19 16:46 RDW 23.3 % (11.5-14.0) H 12/14/19 16:46 Plt Count 181 10^3/uL (150-450) 12/14/19 16:46 Lymph % (Auto) Not Reportable 12/14/19 16:46 [place] % (Auto) Not Reportable 12/14/19 16:46 Eos % (Auto) Not Reportable 12/14/19 16:46 Baso % (Auto) Not Reportable 12/14/19 16:46 Reticulocyte # 0.120 10^6/uL (0.028-0.122) 11/29/19 08:00 Absolute Neuts (auto) Not Reportable 12/14/19 16:46 Absolute Lymphs (auto) Not Reportable 12/14/19 16:46 Absolute Monos (auto) Not Reportable 12/14/19 16:46 Absolute Eos (auto) Not Reportable 12/14/19 16:46 Absolute Basos (auto) Not Reportable 12/14/19 16:46 Total Counted 100 12/14/19 16:46 Seg Neutrophils % Not Reportable 12/14/19 16:46 Seg Neuts % (Manual) 55 % (42-78) 12/14/19 16:46 Lymphocytes % (Manual) 34 % (13-45) 12/14/19 16:46 Atypical Lymphs % 1 % (0) 11/30/19 06:30 Monocytes % (Manual) 2 % (3-13) L 12/14/19 16:46 Eosinophils % (Manual) 9 % (0-6) H 12/14/19 16:46 Basophils % (Manual) 0 % (0-2) 12/14/19 16:46 Abs Neuts (Manual) 2.9 10^3/uL (1.7-8.2) 12/14/19 16:46 Abs Lymphs (Manual) 1.8 10^3/uL (0.5-4.7) 12/14/19 16:46 Abs Monocytes (Manual) 0.1 10^3/uL (0.1-1.4) 12/14/19 16:46 Absolute Eos (Manual) 0.5 10^3/uL (0.0-0.6) 12/14/19 16:46 Abs Basophils (Manual) 0.0 10^3/uL (0.0-0.2) 12/14/19 16:46 Nucleated RBCs 83 /100 WBC (0) 12/14/19 16:46 Platelet Estimate Cancelled 12/14/19 15:40 Platelet Comment ADEQUATE 12/14/19 16:46 Polychromasia SLIGHT 12/14/19 16:46 Hypochromasia SLIGHT 12/04/19 10:50 Poikilocytosis 1+ 12/14/19 16:46 Anisocytosis 3+ 12/14/19 16:46 Macrocytosis 4+ 12/14/19 16:46 Pappenheimer Bodies PRESENT 11/30/19 06:30 Sickle Cells SLIGHT 12/14/19 16:46 Target Cells 1+ 12/14/19 16:46 Tear Drop Cells SLIGHT 12/14/19 16:46 Ovalocytes 1+ 12/08/19 05:16 [place] Bodies PRESENT 11/30/19 06:30 Schistocytes SLIGHT 12/14/19 16:46 Retic Count (auto) 7.73 % (0.66-2.85) H 11/29/19 08:00 Sodium 137.3 mmol/L (137-145) 12/14/19 15:40 Potassium 4.7 mmol/L (3.6-5.0) 12/14/19 15:40 Chloride 105 mmol/L (98-107) 12/14/19 15:40 Carbon Dioxide 25 mmol/L (22-30) 12/14/19 15:40 Anion Gap 7 (5-19) 12/14/19 15:40 BUN 9 mg/dL (7-20) 12/14/19 15:40 Creatinine 0.71 mg/dL (0.52-1.25) 12/14/19 15:40 Est GFR ( Amer) > 60 (>60) 12/14/19 15:40 Est GFR (MDRD) Non-Af > 60 (>60) 12/14/19 15:40 Glucose 114 mg/dL (75-110) H 12/14/19 15:40 Calcium 9.2 mg/dL (8.4-10.2) 12/14/19 15:40 Total Bilirubin 2.1 mg/dL (0.2-1.3) H 12/14/19 15:40 Direct Bilirubin 0.0 mg/dL (0.0-0.4) 12/14/19 15:40 Neonat Total Bilirubin Not Reportable 12/14/19 15:40 Neonat Direct Bilirubin Not Reportable 12/14/19 15:40 Neonat Indirect Bili Not Reportable 12/14/19 15:40 AST 58 U/L (14-36) H 12/14/19 15:40 ALT 31 U/L (<35) 12/14/19 15:40 Alkaline Phosphatase 107 U/L (38-126) 12/14/19 15:40 Lactate Dehydrogenase 386 U/L (120-246) H 12/14/19 15:40 Creatine Kinase 20 U/L (30-135) L 11/30/19 14:30 CK-MB (CK-2) < 0.22 ng/mL (<4.55) 11/30/19 14:30 Troponin I < 0.012 ng/mL 11/30/19 14:30 Total Protein 7.4 g/dL (6.3-8.2) 12/14/19 15:40 Albumin 4.2 g/dL (3.5-5.0) 12/14/19 15:40 Slides for Path Review Cancelled 12/14/19 15:40 Blood Type O POSITIVE 11/29/19 08:00 Antibody Screen NEGATIVE 11/29/19 08:00 11/29/19 11/29/19 11/30/19 08:00 20:33 06:30 CK-MB (CK-2) < 0.22 < 0.22 Troponin I < 0.012 < 0.012 < 0.012 11/30/19 14:30 CK-MB (CK-2) < 0.22 Troponin I < 0.012 Impressions: Chest X-Ray 11/29/19 07:38 IMPRESSION: 1. NO ACUTE RADIOGRAPHIC FINDING IN THE CHEST. 2. Borderline cardiomegaly, stable finding. Shoulder X-Ray 12/08/19 00:00 IMPRESSION: No evidence of acute osseous injury. Trace rotator cuff calcific tendinopathy. Upper Extremity MRI 12/12/19 00:00 IMPRESSION: 1. Partial thickness tear articular surface supraspinatus tendon. 2. Small amount of fluid in the subacromion bursa. 3. Chronic degenerative change at the humeral head. 4. Heterogeneous bone marrow signal suggestive of reactivated bone marrow. Clinical correlation for anemia recommended. Stroke Is this a Stroke Patient?: No Acute Heart Failure - Is this a Heart Failure Patient?: No
== END 2019-12-17 19:05 | disposition home or self-care (01) | DRG 812 ==
LOC: ER 06:41 → EH 09:36 → OBSVTOIN 10:00 → 3N 15:13 → 5 12-07 18:10
PROVIDERS: ADMIT Internal Medicine; ATTEND Internal Medicine
DX: D57.00 Hb-SS disease with crisis, unspecified (principal); M75.111 Incomplete rotator cuff tear or rupture of right shoulder, not specified as traumatic; F41.9 Anxiety disorder, unspecified; E83.111 Hemochromatosis due to repeated red blood cell transfusions; Z86.14 Personal history of Methicillin resistant Staphylococcus aureus infection; R01.1 Cardiac murmur, unspecified; Z90.49 Acquired absence of other specified parts of digestive tract; Z79.891 Long term (current) use of opiate analgesic; Z88.1 Allergy status to other antibiotic agents; Z79.899 Other long term (current) drug therapy
CPT/HCPCS: 36415; 71045; 80048; 80053; 80076; 82550; 82553; 83615; 84484; 85025; 85027; 85045; 86850; 86900; 86901; 93005; 93010; 96361; 96374; 96376; 99285; J1170; J1200; J1650; J2550; J3411; J3475; J3480; J3490; J7030; J7120; Q5106

== ENCOUNTER 2020-01-11 19:37 | Inpatient (IN) | payer MEDICAID ==
--- NOTE | 2020-01-11 20:14 | ER Document Report ---
ED Medical Screen (RME) - General Chief Complaint: Sickle Cell Crisis Stated Complaint: SICKLE CELL CRISIS Time Seen by Provider: 01/11/20 20:03 Primary Care Provider: HOMA BARRAZA MD [Primary Care Provider] - Follow up as needed Mode of Arrival: Wheelchair Information source: Patient Notes: 50-year-old female presented to ED for sickle cell crisis that started yesterday. She states her normal sickle cell pain is chest back legs and arms and she is hurting in all of these areas but she is also is hurting in her abdomen today and that is not her normal sickle cell pain. She states she is also having nausea but no vomiting. She states she is postmenopausal x3 years. She states she is taking her oxycodone 10 mg that she takes every 6 hours as ordered. She states she also takes Myristate 27 mg twice a day. She states she called Dr Ramirez who is her oncologist and she told her to go to the emergency room. Have ordered her port accessed, blood work, urine, and IV fluids. She will need pain medicine when she gets to a room. I have greeted and performed a rapid initial assessment of this patient. A comprehensive ED assessment and evaluation of the patient, analysis of test results and completion of medical decision making process will be conducted by an additional ED providers. - Related Data Allergies/Adverse Reactions: doxycycline [Doxycycline] Allergy (Severe, Verified 01/11/20 20:11) Past Medical History - Past Medical History Cardiac Medical History: Reports: Hx Heart Murmur Denies: Hx Atrial Fibrillation, Hx Congestive Heart Failure, Hx Coronary Artery Disease, Hx Heart Attack, Hx Hypercholesterolemia, Hx Hypertension, Hx Peripheral Vascular Disease Pulmonary Medical History: Denies: Hx Tuberculosis Neurological Medical History: Denies: Hx Seizures Renal/ Medical History: Reports: Hx Ovarian Cysts. 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 Denies: Hx HIV Past Surgical History: Reports: Hx Appendectomy, Hx Section, Hx Cholecystectomy, Hx Orthopedic Surgery - R knee, Hx Tonsillectomy. Denies: Hx Bowel Surgery, Hx Coronary Artery Bypass Graft, Hx Gastric Bypass Surgery, Hx Herniorrhaphy, Hx Mastectomy, Hx Pacemaker, Hx Tubal Ligation - Immunizations Immunizations up to date: Yes Hx Diphtheria, Pertussis, Tetanus Vaccination: Yes Physical Exam - Vital signs Vitals: Temp Pulse Resp BP Pulse Ox 99.2 F 84 15 119/69 100 01/11/20 19:47 01/11/20 19:47 01/11/20 19:47 01/11/20 19:47 01/11/20 19:47 Course - Vital Signs Vital signs: Temp Pulse Resp BP Pulse Ox 99.2 F 84 15 119/69 100 01/11/20 19:47 01/11/20 19:47 01/11/20 19:47 01/11/20 19:47 01/11/20 19:47 Doctor's Discharge - Discharge Referrals: HOMA BARRAZA MD [Primary Care Provider] - Follow up as needed
[2020-01-11] MEDS: NORMAL SALINE 1000 ML 1,000 ML IV PRN ×2 (20:52→20:55)
[2020-01-11 21:21] LABS: ALBUMIN 4.9 g/dL (3.5-5.0); ALKALINE PHOSPHATASE 140 U/L (38-126); ANION GAP 8 (5-19); ASPARTATE AMINO TRANSFERASE 47 U/L (14-36); BILIRUBIN,DIRECT 0.6 mg/dL (0.0-0.4); BILIRUBIN,TOTAL 3.8 mg/dL (0.2-1.3); BLOOD UREA NITROGEN 7 mg/dL (7-20); CALCIUM 9.8 mg/dL (8.4-10.2); CARBON DIOXIDE 22 mmol/L (22-30); CHLORIDE 108 mmol/L (98-107); GLUCOSE 114 mg/dL (75-110); TOTAL PROTEIN 8.7 g/dL (6.3-8.2)
[2020-01-11] MEDS ORDERED: HYDROMORPHONE HCL INJ/PF 2 MG/ML AMPULE IV ONE ×2 (21:25→22:58)
[2020-01-11] MEDS ORDERED: DIPHENHYDRAMINE HCL 50 MG/ML VIAL IV ONE (21:26)
[2020-01-11 22:16] LABS: ABSOLUTE RETICS # 0.053 10^6/uL (0.028-0.122); HEMATOCRIT 21.5 % (36.0-47.0); MEAN CORPUSCULAR HEMOGLOBIN 47.3 pg (27.0-33.4); MEAN CORPUSCULAR HGB CONC 35.1 g/dL (32.0-36.0); MEAN CORPUSCULAR VOLUME 135 fl (80-97); PLATELET COUNT 268 10^3/uL (150-450); RED CELL DISTRIBUTION WIDTH 16.3 % (11.5-14.0); RETICULOCYTE COUNT (AUTO) 3.35 % (0.66-2.85)
[2020-01-11 22:27] LABS: ABSOLUTE MONOCYTES # (MANUAL) 0.1 10^3/uL (0.1-1.4); BASOPHILS % (MANUAL) 0 % (0-2); EOSINOPHILS % (MANUAL) 1 % (0-6); LYMPHOCYTES % (MANUAL) 40 % (13-45); MONOCYTES % (MANUAL) 2 % (3-13); NUCLEATED RED BLOOD CELLS 3 /100 WBC (0); SEGMENTED NEUTROPHILS % (MAN) 57 % (42-78); TOTAL CELLS COUNTED 100
[2020-01-11 22:28] LABS: POLYCHROMASIA SLIGHT
[2020-01-11 22:29] LABS: ANISOCYTOSIS 1+; OVALOCYTES SLIGHT; PLATELET COMMENT ADEQUATE; POIKILOCYTOSIS 1+; SCHISTOCYTES SLIGHT; SICKLE RED CELLS SLIGHT; TARGET CELLS 1+
[2020-01-11 22:32] LABS: HEMOGLOBIN 7.5 g/dL (12.0-15.5)
[2020-01-11 23:35] LABS: APPEARANCE,URINE CLEAR; BILIRUBIN,URINE NEGATIVE (NEGATIVE); COLOR,URINE YELLOW; GLUCOSE, URINE NEGATIVE (NEGATIVE); KETONES,URINE TRACE mg/dL (NEGATIVE); LEUKOCYTE ESTERASE,URINE NEGATIVE (NEGATIVE); NITRITE,URINE NEGATIVE (NEGATIVE); PROTEIN,URINE NEGATIVE (NEGATIVE); URINE SPECIFIC GRAVITY 1.011; UROBILINOGEN,URINE NEGATIVE mg/dL (<2.0)
--- NOTE | 2020-01-11 23:41 | ER Document Report ---
Entered by HUY WEST SCRIBE 01/11/202111 Acting as scribe for:HEIDI BLAND IV, MD ED General Pain - General Chief Complaint: Sickle Cell Crisis Stated Complaint: SICKLE CELL CRISIS Time Seen by Provider: 01/11/20 20:03 Primary Care Provider: HOMA BARRAZA MD [Primary Care Provider] - Follow up as needed Mode of Arrival: Wheelchair Information source: Patient Notes: This 50 year old female patient presents to the ED today with complaints of sickle cell crisis that started yesterday. Patient reports typical pain related to sickle cell to her chest, back, and extremities. She is also complaining of generalized abdominal pain which is atypical. Notes nausea without emesis. She states that she has been taking 10 mg Oxycodone q6hr and 27 mg Myristate BID without relief. She mentions that she usually receives Dilaudid and Benadryl for pain management. PCP is Dr. Barraza and oncologist is Dr. Ramirez. - Related Data Allergies/Adverse Reactions: doxycycline [Doxycycline] Allergy (Severe, Verified 01/11/20 20:15) Home Medications: gabapentin, hydroxyurea, oxy 10, myristate Past Medical History - General Information source: Patient - Social History Smoking Status: Never Smoker Cigarette use (# per day): No Chew tobacco use (# tins/day): No Smoking Education Provided: No Frequency of alcohol use: None Drug Abuse: None Family History: Reviewed & Not Pertinent Patient has suicidal ideation: No Patient has homicidal ideation: No - Medical History Medical History: Other - Hx Sickle Cell Anemia/Disease - Past Medical History Cardiac Medical History: Reports: Hx Heart Murmur Renal/ Medical History: Reports: Hx Ovarian Cysts Skin Medical History: Reports Hx MRSA Psychiatric Medical History: Reports: Hx Anxiety Infectious Medical History: Reports: Hx MRSA - History of MRSA osteomyelitis Past Surgical History: Reports: Hx Appendectomy, Hx Section, Hx Cholecystectomy, Hx Orthopedic Surgery - R knee, Hx Tonsillectomy - Immunizations Immunizations up to date: Yes Hx Diphtheria, Pertussis, Tetanus Vaccination: Yes Hx Pneumococcal Vaccination: 03/20/14 Review of Systems - Review of Systems Constitutional: No symptoms reported EENT: No symptoms reported Cardiovascular: See HPI, Chest pain Respiratory: No symptoms reported Gastrointestinal: See HPI, Abdominal pain, Nausea. denies: Vomiting Genitourinary: No symptoms reported Female Genitourinary: No symptoms reported Musculoskeletal: See HPI, Back pain, Muscle pain Skin: No symptoms reported Hematologic/Lymphatic: No symptoms reported Neurological/Psychological: No symptoms reported -: Yes All other systems reviewed and negative Physical Exam - Vital signs Vitals: Temp Pulse Resp BP Pulse Ox 99.2 F 84 15 119/69 100 01/11/20 19:47 01/11/20 19:47 01/11/20 19:47 01/11/20 19:47 01/11/20 19:47 Interpretation: Normal - General General appearance: Alert In distress: None - HEENT Head: Normocephalic, Atraumatic Eyes: Normal Pupils: PERRL - Respiratory Respiratory status: No respiratory distress Chest status: Nontender Breath sounds: Normal Chest palpation: Normal - Cardiovascular Rhythm: Regular Heart sounds: Normal auscultation Murmur: No Friction rub: No Gallop: None auscultated - Abdominal Inspection: Normal Distension: No distension Bowel sounds: Normal Tenderness: Nontender - Abdomen soft Organomegaly: No organomegaly - Back Back: Normal, Nontender - Extremities General upper extremity: Normal inspection General lower extremity: Normal inspection - Neurological Neuro grossly intact: Yes Cognition: Normal Orientation: AAOx4 [place] Coma Scale Eye Opening: Spontaneous [place] Coma Scale Verbal: Oriented [place] Coma Scale Motor: Obeys Commands [place] Coma Scale Total: 15 - Psychological Associated symptoms: Normal affect, Normal mood - Skin Skin Temperature: Warm Skin Moisture: Dry Skin Color: Normal Course - Re-evaluation Re-evalutation: 01/12/20 00:05 Patient's pain is still 5 out of 5 despite 4 mg of Dilaudid. Patient told the nurse that when her pain is this bad she usually has to have Dilaudid, 2 to 4 mg, every 2 hours for "a few days." - Vital Signs Vital signs: Temp Pulse Resp BP Pulse Ox 98.1 F 79 12 114/68 100 01/11/20 23:57 01/11/20 23:57 01/11/20 23:57 01/11/20 23:57 01/11/20 23:57 - Laboratory Result Diagrams: 01/11/20 21:49 01/11/20 20:53 Laboratory results interpreted by me: 01/11/20 01/11/20 01/11/20 20:53 21:49 23:20 RBC 1.60 L Hgb 7.5 L Hct 21.5 L MCV 135 H MCH 47.3 H RDW 16.3 H Monocytes % (Manual) 2 L Retic Count (auto) 3.35 H Chloride 108 H Glucose 114 H Total Bilirubin 3.8 H Direct Bilirubin 0.6 H AST 47 H Alkaline Phosphatase 140 H Total Protein 8.7 H Urine Ketones TRACE H Urine Blood SMALL H - Consults DR. CARDOZO Time consulted: 00:01 - REQUESTED PT BE ADMITTED TO TELE UNDER DR. BARRAZA Reason for consultation: 01/12/20 00:06 SICKLE CELL PAIN CRISIS WITH INTRACTABLE PAIN Discharge - Discharge Clinical Impression: Sickle cell pain crisis Condition: Stable Disposition: ADMITTED INPATIENT Admitting Provider: Da Unit Admitted: Telemetry Referrals: HOMA BARRAZA MD [Primary Care Provider] - Follow up as needed I personally performed the services described in the documentation, reviewed and edited the documentation which was dictated to the scribe in my presence, and it accurately records my words and actions.
[2020-01-12] MEDS: HYDROMORPHONE HCL INJ/PF 2 MG/ML AMPULE IV PRN ×8 (02:57→23:54)
[2020-01-12] MEDS: NORMAL SALINE 1000 ML 1,000 ML IV PRN ×3 (03:01→23:57)
[2020-01-12] MEDS ORDERED: PROMETHAZINE HCL INJ 25 MG/1 ML VIAL ONE (08:12)
[2020-01-12] MEDS ORDERED: DIPHENHYDRAMINE HCL 50 MG/ML VIAL ONE (08:13)
[2020-01-12] MEDS ORDERED: HYDROMORPHONE HCL INJ/PF 2 MG/ML AMPULE ONE ×3 (08:15→10:32)
--- NOTE | 2020-01-12 10:43 | PDOC CONSULTATION ---
Consultation Consult Date: 01/12/20 Attending physician:: BOBBY CARDOZO Provider Consulted: BLAZE CARTAGENA Consult reason:: Patient with known sickle cell disease here with crisis History of Present Illness Admission Date/PCP: 01/12/20 00:13 HOMA BARRAZA MD Patient complains of: Pain all over History of Present Illness: WILLIE ALAN is a 50 year old female well-known to our hematology clinic with frequent sickle cell crisis necessitating admission, once again having sickle cell crisis in many of the usual areas of pain along with some abdominal pain as well. She presented to the ED, received pain medication IV hydration bu t ultimately was admitted for continued pain control. We were called this morning, and I gave orders for her usual pain control medications as well as other supportive meds for sickle cell crisis. 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 Denies: HIV Past Surgical History Past Surgical History: Reports: Appendectomy, Section, Cholecystectomy, Orthopedic Surgery - R knee, Tonsillectomy Denies: Amputation, Coronary Artery Bypass Graft, Gastric Bypass Surgery, Herniorrhaphy, Mastectomy, Pacemaker, Tubal Ligation Social History Smoking Status: Never Smoker Electronic Cigarette use?: No Frequency of Alcohol Use: None Hx Recreational Drug Use: No Drugs: None Hx Prescription Drug Abuse: No - Advance Directive Resuscitation Status: Full Code Family History Family History: Reviewed & Not Pertinent Parental Family History Reviewed: Yes Children Family History Reviewed: Yes Sibling(s) Family History Reviewed.: Yes Medication/Allergy Home Medications: RX: Deferasirox [Jadenu] 360 mg PO DAILY 08/13/19 RX: Epoetin Federico [Procrit Inj 20,000 Unit/1 ml Vial (Renal)] 60,000 unit IJ FR@1000 08/13/19 RX: Folic Acid 1 mg PO DAILY 08/13/19 RX: Gabapentin [Neurontin 300 mg Capsule] 300 mg PO Q12 08/13/19 RX: Hydroxyurea [Hydrea 500 mg Capsule] 500 mg PO TID 08/13/19 RX: Oxycodone HCl [Oxy-Ir 5 mg Tablet] 10 mg PO Q6HP PRN 08/13/19 RX: Cholecalciferol (Vitamin D3) [Vitamin D3 1000 Unit Tablet] 5,000 unit PO DAILY 11/29/19 RX: Oxycodone Myristate [Xtampza ER] 27 mg PO Q12 11/29/19 Ergocalciferol (Vitamin D2) [Drisdol 50,000 Unit (1.25MG) Capsule] 50,000 unit PO WE@1000 01/12/20 Allergies/Adverse Reactions: doxycycline [Doxycycline] Allergy (Severe, Verified 01/11/20 20:15) Review of Systems Constitutional: ABSENT: chills, fever(s), headache(s), weight gain, weight loss Eyes: ABSENT: visual disturbances Ears: ABSENT: hearing changes Cardiovascular: ABSENT: chest pain, dyspnea on exertion, edema, orthropnea, palpitations Respiratory: ABSENT: cough, hemoptysis Gastrointestinal: ABSENT: abdominal pain, constipation, diarrhea, hematemesis, hematochezia, nausea, vomiting Genitourinary: ABSENT: dysuria, hematuria Musculoskeletal: ABSENT: joint swelling Integumentary: ABSENT: rash, wounds Neurological: ABSENT: abnormal gait, abnormal speech, confusion, dizziness, focal weakness, syncope Psychiatric: ABSENT: anxiety, depression, homidical ideation, suicidal ideation Endocrine: ABSENT: cold intolerance, heat intolerance, polydipsia, polyuria Hematologic/Lymphatic: ABSENT: easy bleeding, easy bruising Physical Exam Vital Signs: Temp Pulse Resp BP Pulse Ox 98.2 F 85 12 94/57 L 100 01/12/20 08:32 01/12/20 08:32 01/12/20 08:32 01/12/20 08:32 01/12/20 08:32 Intake & Output 01/11/20 01/12/20 01/13/20 06:59 06:59 06:59 Intake Total 2000 Output Total 0 Balance 1999 Weight 57.9 kg General appearance: PRESENT: no acute distress, well-developed, well-nourished Head exam: PRESENT: atraumatic, normocephalic Eye exam: PRESENT: conjunctiva pink, EOMI, PERRLA. ABSENT: scleral icterus Ear exam: PRESENT: normal external ear exam Mouth exam: PRESENT: moist, tongue midline Neck exam: ABSENT: carotid bruit, JVD, lymphadenopathy, thyromegaly Respiratory exam: PRESENT: clear to auscultation carolyn. ABSENT: rales, rhonchi, wheezes Cardiovascular exam: PRESENT: RRR. ABSENT: diastolic murmur, rubs, systolic murmur Pulses: PRESENT: normal dorsalis pedis pul Vascular exam: PRESENT: normal capillary refill GI/Abdominal exam: PRESENT: normal bowel sounds, soft. ABSENT: distended, guarding, mass, organolmegaly, rebound, tenderness Rectal exam: PRESENT: deferred Extremities exam: PRESENT: full ROM. ABSENT: calf tenderness, clubbing, pedal edema Neurological exam: PRESENT: alert, awake, oriented to person, oriented to place, oriented to time, oriented to situation, CN II-XII grossly intact. ABSENT: motor sensory deficit Psychiatric exam: PRESENT: appropriate affect, normal mood. ABSENT: homicidal ideation, suicidal ideation Skin exam: PRESENT: dry, intact, warm. ABSENT: cyanosis, rash Results Laboratory Results: 01/11/20 21:49 01/11/20 20:53 01/11/20 01/11/20 01/11/20 20:53 20:53 21:49 WBC Cancelled 5.0 RBC Cancelled 1.60 L Hgb Cancelled 7.5 L Hct Cancelled 21.5 L MCV Cancelled 135 H MCH Cancelled 47.3 H MCHC Cancelled 35.1 RDW Cancelled 16.3 H Plt Count Cancelled 268 Seg Neutrophils % Cancelled Not Reportable Retic Count (auto) Cancelled 3.35 H Absolute Retic Cancelled Sodium 138.1 Potassium 4.0 Chloride 108 H Carbon Dioxide 22 Anion Gap 8 BUN 7 Creatinine 0.60 Est GFR ( Amer) > 60 Glucose 114 H Calcium 9.8 Total Bilirubin 3.8 H AST 47 H Alkaline Phosphatase 140 H Total Protein 8.7 H Albumin 4.9 Urine Color Urine Appearance Urine pH Ur Specific [place] Urine Protein Urine Glucose (UA) Urine Ketones Urine Blood Urine Nitrite Ur Leukocyte Esterase Urine WBC (Auto) Urine RBC (Auto) 01/11/20 23:20 WBC RBC Hgb Hct MCV MCH MCHC RDW Plt Count Seg Neutrophils % Retic Count (auto) Absolute Retic Sodium Potassium Chloride Carbon Dioxide Anion Gap BUN Creatinine Est GFR ( Amer) Glucose Calcium Total Bilirubin AST Alkaline Phosphatase Total Protein Albumin Urine Color YELLOW Urine Appearance CLEAR Urine pH 6.0 Ur Specific [place] 1.011 Urine Protein NEGATIVE Urine Glucose (UA) NEGATIVE Urine Ketones TRACE H Urine Blood SMALL H Urine Nitrite NEGATIVE Ur Leukocyte Esterase NEGATIVE Urine WBC (Auto) 1 Urine RBC (Auto) 0 Assessment & Plan - Diagnosis (1) Sickle cell pain crisis Is this a current diagnosis for this admission?: Yes Plan: Known sickle cell disease with pain crisis, placed orders for pain medication, other supportive medicines, will follow. 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 If she gets into the 4 range we will consider it but she has multiple antibodies. - Time Time Spent: 50 to 70 Minutes
[2020-01-12] MEDS: SENNOSIDES/DOCUSATE 8.6-50 MG 1 EACH TABLET PO SCH ×2 (12:55→17:40)
[2020-01-12] MEDS: POLYETHYLENE GLYCOL 3350 POWDER 17 GM/1 PACKET PO SCH (12:55)
[2020-01-12] MEDS ORDERED: GABAPENTIN 300 MG CAPSULE PO ONE (13:30)
[2020-01-12] MEDS ORDERED: CHOLECALCIFEROL (D3) 1,000 UNIT (25 MCG) TABLET PO ONE (13:30)
[2020-01-12] MEDS ORDERED: HYDROXYUREA 500 MG CAPSULE PO ONE (13:30)
[2020-01-12] MEDS ORDERED: FOLIC ACID 1 MG TABLET PO ONE (13:30)
[2020-01-12] MEDS ORDERED: MULTIVITAMIN TABLET PO ONE (13:30)
[2020-01-12] MEDS: PROMETHAZINE HCL INJ 25 MG/1 ML VIAL IV PRN ×2 (15:18→23:55)
[2020-01-12] MEDS: DIPHENHYDRAMINE HCL 50 MG/ML VIAL IV PRN ×2 (15:19→22:02)
[2020-01-12] MEDS: HYDROXYUREA 500 MG CAPSULE PO SCH ×2 (15:33→17:43)
--- NOTE | 2020-01-12 19:45 | PDOC H&P ---
History of Present Illness Admission Date/PCP: 01/12/20 00:13 HOMA BARRAZA MD Patient complains of: Multiple joints pain History of Present Illness: WILLIE ALAN is a 50 year old female patient of Dr. Barraza with repeated admission for sickle cell disease pain crises. Patient presented to the ED for similar multiple joints aches and pain, particularly in her left wrist joint. she denied any fall or trauma. she was managed with IV Dilaudid and h ydration in the ED but her pain persist necessitating admission for further pain management. Her morbidities are as listed below. 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 Denies: HIV Past Surgical History Past Surgical History: Reports: Appendectomy, Section, Cholecystectomy, Orthopedic Surgery - R knee, Tonsillectomy Denies: Amputation, Coronary Artery Bypass Graft, Gastric Bypass Surgery, Herniorrhaphy, Mastectomy, Pacemaker, Tubal Ligation Social History Smoking Status: Never Smoker Electronic Cigarette use?: No Frequency of Alcohol Use: None Hx Recreational Drug Use: No Drugs: None Hx Prescription Drug Abuse: No - Advance Directive Resuscitation Status: Full Code Family History Family History: Reviewed & Not Pertinent Parental Family History Reviewed: Yes Children Family History Reviewed: Yes Sibling(s) Family History Reviewed.: Yes Medication/Allergy Home Medications: Deferasirox [Jadenu] 360 mg PO DAILY 08/13/19 Epoetin Federico [Procrit Inj 20,000 Unit/1 ml Vial (Renal)] 60,000 unit IJ FR@1000 08/13/19 Folic Acid 1 mg PO DAILY 08/13/19 Gabapentin [Neurontin 300 mg Capsule] 300 mg PO Q12 08/13/19 Hydroxyurea [Hydrea 500 mg Capsule] 500 mg PO TID 08/13/19 Oxycodone HCl [Oxy-Ir 5 mg Tablet] 10 mg PO Q6HP PRN 08/13/19 Cholecalciferol (Vitamin D3) [Vitamin D3 1000 Unit Tablet] 5,000 unit PO DAILY 11/29/19 Oxycodone Myristate [Xtampza ER] 27 mg PO Q12 11/29/19 Ergocalciferol (Vitamin D2) [Drisdol 50,000 Unit (1.25MG) Capsule] 50,000 unit PO WE@1000 01/12/20 Multivitamin [Tab-A-Yosvany (Multiple Vitamin) Tablet] 1 tab PO DAILY 01/12/20 Allergies/Adverse Reactions: doxycycline [Doxycycline] Allergy (Severe, Verified 01/11/20 20:15) Physical Exam Vital Signs: Temp Pulse Resp BP Pulse Ox 98.2 F 85 12 94/57 L 100 01/12/20 08:32 01/12/20 08:32 01/12/20 08:32 01/12/20 08:32 01/12/20 08:32 Intake & Output 01/11/20 01/12/20 01/13/20 06:59 06:59 06:59 Intake Total 2000 Output Total 0 Balance 2000 Weight 57.9 kg General appearance: PRESENT: severe distress - due to sickle cell pain crisis Head exam: PRESENT: atraumatic, normocephalic Eye exam: PRESENT: conjunctiva pink, EOMI, PERRLA. ABSENT: scleral icterus Ear exam: PRESENT: normal external ear exam Mouth exam: PRESENT: moist Respiratory exam: PRESENT: clear to auscultation carolyn Cardiovascular exam: PRESENT: RRR, +S1, +S2. ABSENT: diastolic murmur, rubs, systolic murmur Vascular exam: ABSENT: pallor GI/Abdominal exam: PRESENT: normal bowel sounds, soft. ABSENT: distended, guarding, mass, organolmegaly, rebound, tenderness Rectal exam: PRESENT: deferred Extremities exam: PRESENT: tenderness - multiple joints and lower back. ABSENT: pedal edema Musculoskeletal exam: PRESENT: deformity - due to joint involvement with her sickle cell disease process. Neurological exam: PRESENT: alert, awake, oriented to person, oriented to place, oriented to time, oriented to situation, CN II-XII grossly intact. ABSENT: motor sensory deficit Psychiatric exam: PRESENT: appropriate affect, normal mood. ABSENT: homicidal ideation, suicidal ideation Skin exam: PRESENT: dry, intact, warm. ABSENT: cyanosis, rash Results Laboratory Results: 01/11/20 21:49 01/11/20 20:53 01/11/20 01/11/20 01/11/20 20:53 20:53 21:49 WBC Cancelled 5.0 RBC Cancelled 1.60 L Hgb Cancelled 7.5 L Hct Cancelled 21.5 L MCV Cancelled 135 H MCH Cancelled 47.3 H MCHC Cancelled 35.1 RDW Cancelled 16.3 H Plt Count Cancelled 268 Seg Neutrophils % Cancelled Not Reportable Retic Count (auto) Cancelled 3.35 H Absolute Retic Cancelled Sodium 138.1 Potassium 4.0 Chloride 108 H Carbon Dioxide 22 Anion Gap 8 BUN 7 Creatinine 0.60 Est GFR ( Amer) > 60 Glucose 114 H Calcium 9.8 Total Bilirubin 3.8 H AST 47 H Alkaline Phosphatase 140 H Total Protein 8.7 H Albumin 4.9 Urine Color Urine Appearance Urine pH Ur Specific Ramey Urine Protein Urine Glucose (UA) Urine Ketones Urine Blood Urine Nitrite Ur Leukocyte Esterase Urine WBC (Auto) Urine RBC (Auto) 01/11/20 23:20 WBC RBC Hgb Hct MCV MCH MCHC RDW Plt Count Seg Neutrophils % Retic Count (auto) Absolute Retic Sodium Potassium Chloride Carbon Dioxide Anion Gap BUN Creatinine Est GFR ( Amer) Glucose Calcium Total Bilirubin AST Alkaline Phosphatase Total Protein Albumin Urine Color YELLOW Urine Appearance CLEAR Urine pH 6.0 Ur Specific Ramey 1.011 Urine Protein NEGATIVE Urine Glucose (UA) NEGATIVE Urine Ketones TRACE H Urine Blood SMALL H Urine Nitrite NEGATIVE Ur Leukocyte Esterase NEGATIVE Urine WBC (Auto) 1 Urine RBC (Auto) 0 Assessment & Plan - Diagnosis (1) Sickle cell pain crisis Is this a current diagnosis for this admission?: Yes Plan: See covering admitting attending physician orders for details about care plan. (2) Hb-SS disease with vaso-occlusive crisis Is this a current diagnosis for this admission?: Yes Plan: See covering admitting attending physician orders for details about care plan. (3) Iron overload due to repeated red blood cell transfusions Is this a current diagnosis for this admission?: Yes Plan: See covering admitting attending physician orders for details about care plan. (4) Sickle cell anemia Qualifiers: Sickle-cell associated disorders: with unspecified crisis Qualified Code(s): D57.00 - Hb-SS disease with crisis, unspecified; D57.0 - Hb-SS disease with crisis Is this a current diagnosis for this admission?: Yes Plan: See covering admitting attending physician orders for details about care plan. (5) Opioid dependence Qualifiers: Substance use status: with unspecified opioid-induced disorder Qualified Code(s): F11.29 - Opioid dependence with unspecified opioid-induced disorder Is this a current diagnosis for this admission?: Yes Plan: See covering admitting attending physician orders for details about care plan. - Time Time Spent: 50 to 70 Minutes Medications reviewed and adjusted accordingly: Yes Anticipated discharge: Home Anticipated DC Timeframe: Other - Inpatient Certification Based on my medical assessment, after consideration of the patient's comorbidities, presenting symptoms, or acuity I expect that the services needed warrant INPATIENT care.: Yes I certify that my determination is in accordance with my understanding of Medicare's requirements for reasonable and necessary INPATIENT services [42 CFR 412.3e].: Yes Medical Necessity: Significant Comorbidiites Make Outpatient Treatment Too Risky, Need Close Monitoring Due to Risk of Patient Decompensation, Need For IV Fluids, Need for Pain Control, Risk of Complication if Not Cared For in Hospital, Risk of Diagnosis Which Will Require Inpatient Eval/Care/Monitoring Post Hospital Care: D/C [employer] Documentation - Plan Summary Plan Summary: See covering admitting attending physician orders for details about care plan.
[2020-01-12] MEDS: GABAPENTIN 300 MG CAPSULE PO SCH (22:04)
[2020-01-13] MEDS: HYDROMORPHONE HCL INJ/PF 2 MG/ML AMPULE IV PRN ×9 (02:39→22:22)
[2020-01-13] MEDS: DIPHENHYDRAMINE HCL 50 MG/ML VIAL IV PRN ×2 (04:59→19:54)
[2020-01-13] MEDS: POLYETHYLENE GLYCOL 3350 POWDER 17 GM/1 PACKET PO SCH (10:21)
[2020-01-13] MEDS: PROMETHAZINE HCL INJ 25 MG/1 ML VIAL IV PRN ×2 (10:23→17:35)
[2020-01-13] MEDS: GABAPENTIN 300 MG CAPSULE PO SCH ×2 (10:24→22:22)
[2020-01-13] MEDS: CHOLECALCIFEROL (D3) 1,000 UNIT (25 MCG) TABLET PO SCH (10:24)
[2020-01-13] MEDS: MULTIVITAMIN TABLET PO SCH (10:24)
[2020-01-13] MEDS: FOLIC ACID 1 MG TABLET PO SCH (10:24)
[2020-01-13] MEDS: HYDROXYUREA 500 MG CAPSULE PO SCH ×3 (10:24→17:34)
[2020-01-13] MEDS: SENNOSIDES/DOCUSATE 8.6-50 MG 1 EACH TABLET PO SCH ×2 (10:24→17:34)
--- NOTE | 2020-01-13 13:48 | PDOC PROGRESS REPORT ---
Subjective Progress Note for:: 01/13/20 Subjective:: Patient continue to express multiple joints aches and pain, particularly her left elbow and wrist joint presently. Current pain medication dosing last about 2 hours. No chest pain or difficulty with breathing. Reason For Visit: SICKLE CELL CRISIS WITH PAIN Physical Exam Vital Signs: Temp Pulse Resp BP Pulse Ox 98.7 F 84 18 108/73 98 01/12/20 23:59 01/12/20 23:59 01/12/20 23:59 01/12/20 23:59 01/12/20 23:59 Intake & Output 01/12/20 01/13/20 01/14/20 06:59 06:59 06:59 Intake Total 1999 2600 1000 Output Total 0 300 Balance 1999 2300 1000 Weight 57.9 kg 63.4 kg General appearance: PRESENT: mild distress - due to ongoing pain crisis Head exam: PRESENT: atraumatic, normocephalic Eye exam: PRESENT: conjunctiva pink, EOMI, PERRLA. ABSENT: scleral icterus Mouth exam: PRESENT: moist Respiratory exam: PRESENT: clear to auscultation carolyn Cardiovascular exam: PRESENT: RRR, +S1, +S2. ABSENT: diastolic murmur, rubs, systolic murmur Vascular exam: ABSENT: pallor GI/Abdominal exam: PRESENT: normal bowel sounds, soft. ABSENT: distended, guarding, mass, organolmegaly, rebound, tenderness Extremities exam: ABSENT: pedal edema Musculoskeletal exam: PRESENT: deformity, tenderness Neurological exam: PRESENT: alert, awake, oriented to person, oriented to place, oriented to time, oriented to situation, CN II-XII grossly intact. ABSENT: motor sensory deficit Psychiatric exam: PRESENT: agitated, anxious Skin exam: PRESENT: dry, warm Results Laboratory Results: 01/11/20 21:49 01/11/20 20:53 Assessment & Plan - Diagnosis (1) Sickle cell pain crisis Is this a current diagnosis for this admission?: Yes (2) Hb-SS disease with vaso-occlusive crisis Is this a current diagnosis for this admission?: Yes (3) Iron overload due to repeated red blood cell transfusions Is this a current diagnosis for this admission?: Yes (4) Sickle cell anemia Qualifiers: Sickle-cell associated disorders: with unspecified crisis Qualified Code(s): D57.00 - Hb-SS disease with crisis, unspecified; D57.0 - Hb-SS disease with crisis Is this a current diagnosis for this admission?: Yes (5) Opioid dependence Qualifiers: Substance use status: with unspecified opioid-induced disorder Qualified C ode(s): F11.29 - Opioid dependence with unspecified opioid-induced disorder Is this a current diagnosis for this admission?: Yes - Time Time Spent with patient: 25-34 minutes Level of Care: MEDICAL Medications reviewed and adjusted accordingly: Yes Anticipated discharge: Home Anticipated DC Timeframe: Other - Inpatient Certification Based on my medical assessment, after consideration of the patient's comorbidities, presenting symptoms, or acuity I expect that the services needed warrant INPATIENT care.: Yes I certify that my determination is in accordance with my understanding of Medicare's requirements for reasonable and necessary INPATIENT services [42 CFR 412.3e].: Yes Medical Necessity: Significant Comorbidiites Make Outpatient Treatment Too Risky, Need Close Monitoring Due to Risk of Patient Decompensation, Need For IV Fluids, Need for Pain Control, Risk of Complication if Not Cared For in Hospital, Risk of Diagnosis Which Will Require Inpatient Eval/Care/Monitoring Post Hospital Care: D/C [employer] Documentation - Plan Summary Plan Summary: Continue current pain management regimen. Obtain CBC in AM.
[2020-01-13] MEDS: NORMAL SALINE 1000 ML 1,000 ML IV PRN (19:55)
[2020-01-14] MEDS: HYDROMORPHONE HCL INJ/PF 2 MG/ML AMPULE IV PRN ×10 (00:26→23:57)
[2020-01-14] MEDS: PROMETHAZINE HCL INJ 25 MG/1 ML VIAL IV PRN ×4 (00:26→23:59)
[2020-01-14] MEDS: DIPHENHYDRAMINE HCL 50 MG/ML VIAL IV PRN ×3 (04:40→19:42)
--- NOTE | 2020-01-14 08:14 | PDOC PROGRESS REPORT ---
Subjective Progress Note for:: 01/14/20 Subjective:: Patient states that this is a typical crisis, but she is also having abdominal pain which she has had before, but not typical. She is still eating and drinking well. She has some diarrhea. Otherwise, she is anxious to go home, as her sister is visiting from [place]. Reason For Visit: SICKLE CELL CRISIS WITH PAIN Physical Exam Vital Signs: Temp Pulse Resp BP Pulse Ox 99.7 F 86 16 108/65 100 01/13/20 23:48 01/13/20 23:48 01/13/20 23:48 01/13/20 23:48 01/13/20 23:48 Intake & Output 01/13/20 01/14/20 01/15/20 06:59 06:59 06:59 Intake Total 2600 3320 Output Total 300 Balance 2300 3320 Weight 63.4 kg 64.6 kg General appearance: PRESENT: no acute distress Head exam: PRESENT: normocephalic Eye exam: PRESENT: EOMI Respiratory exam: PRESENT: unlabored GI/Abdominal exam: ABSENT: distended Extremities exam: PRESENT: other - LUE with mild edema. Typical of crisis. Neurological exam: PRESENT: alert, awake Psychiatric exam: PRESENT: appropriate affect Skin exam: PRESENT: normal color Results Laboratory Results: 01/11/20 21:49 01/11/20 20:53 Assessment & Plan - Diagnosis (1) Sickle cell pain crisis Is this a current diagnosis for this admission?: Yes Plan: Her MIVF are only going at 100. However, she is wearing her O2. Pain medical is appropriate. I have encouraged her to get up and walk as much as possible. No changes today. Await labs, but will avoid transfusions as much as possible. She should be receiving her Jadenu from home. - Time Time Spent with patient: 15-24 minutes
[2020-01-14 08:18] LABS: HEMATOCRIT 18.5 % (36.0-47.0); MEAN CORPUSCULAR HEMOGLOBIN 46.5 pg (27.0-33.4); MEAN CORPUSCULAR HGB CONC 34.9 g/dL (32.0-36.0); MEAN CORPUSCULAR VOLUME 133 fl (80-97); PLATELET COUNT 203 10^3/uL (150-450); RED BLOOD COUNT 1.38 10^6/uL (3.72-5.28); RED CELL DISTRIBUTION WIDTH 16.1 % (11.5-14.0); WHITE BLOOD COUNT 5.3 10^3/uL (4.0-10.5)
[2020-01-14 08:32] LABS: HEMOGLOBIN 6.4 g/dL (12.0-15.5)
[2020-01-14 08:38] LABS: ALKALINE PHOSPHATASE 107 U/L (38-126); ANION GAP 8 (5-19); ASPARTATE AMINO TRANSFERASE 41 U/L (14-36); BILIRUBIN,DIRECT 0.4 mg/dL (0.0-0.4); BILIRUBIN,TOTAL 2.8 mg/dL (0.2-1.3); BLOOD UREA NITROGEN 11 mg/dL (7-20); CALCIUM 8.8 mg/dL (8.4-10.2); CARBON DIOXIDE 23 mmol/L (22-30); CHLORIDE 107 mmol/L (98-107); GLUCOSE 97 mg/dL (75-110); POTASSIUM 4.2 mmol/L (3.6-5.0); TOTAL PROTEIN 7.2 g/dL (6.3-8.2)
[2020-01-14 08:44] LABS: ABSOLUTE LYMPHOCYTES# (MANUAL) 2.8 10^3/uL (0.5-4.7); ABSOLUTE MONOCYTES # (MANUAL) 0.2 10^3/uL (0.1-1.4); BASOPHILS % (MANUAL) 0 % (0-2); EOSINOPHILS % (MANUAL) 4 % (0-6); LYMPHOCYTES % (MANUAL) 53 % (13-45); METAMYELOCYTES % (MANUAL) 1 % (0-1); MONOCYTES % (MANUAL) 3 % (3-13); NUCLEATED RED BLOOD CELLS 3 /100 WBC (0); SEGMENTED NEUTROPHILS % (MAN) 39 % (42-78); TOTAL CELLS COUNTED 100
[2020-01-14 08:47] LABS: ANISOCYTOSIS 1+; OVALOCYTES SLIGHT; PLATELET COMMENT ADEQUATE; POIKILOCYTOSIS SLIGHT; TARGET CELLS SLIGHT
[2020-01-14] MEDS: CHOLECALCIFEROL (D3) 1,000 UNIT (25 MCG) TABLET PO SCH (10:11)
[2020-01-14] MEDS: MULTIVITAMIN TABLET PO SCH (10:11)
[2020-01-14] MEDS: GABAPENTIN 300 MG CAPSULE PO SCH ×2 (10:12→21:27)
[2020-01-14] MEDS: FOLIC ACID 1 MG TABLET PO SCH (10:12)
[2020-01-14] MEDS: HYDROXYUREA 500 MG CAPSULE PO SCH ×3 (10:12→17:15)
[2020-01-14] MEDS: SENNOSIDES/DOCUSATE 8.6-50 MG 1 EACH TABLET PO SCH ×2 (10:19→17:15)
[2020-01-14] MEDS: POLYETHYLENE GLYCOL 3350 POWDER 17 GM/1 PACKET PO SCH (10:22)
[2020-01-14] MEDS: NORMAL SALINE 1000 ML 1,000 ML IV PRN (17:23)
--- NOTE | 2020-01-14 21:32 | PDOC PROGRESS REPORT ---
Subjective Progress Note for:: 01/14/20 Subjective:: Patient seen by the bedside, she was admitted over the weekend for bone pain crisis part of patient's problem is opiate dependency syndrome, she is yet to reconcile the fact that she is opioid dependent she comes in average of every 3 weeks to get IV Dilaudid Reason For Visit: SICKLE CELL CRISIS WITH PAIN Physical Exam Vital Signs: Temp Pulse Resp BP Pulse Ox 99.6 F 73 16 101/53 L 100 01/14/20 15:41 01/14/20 15:41 01/14/20 15:41 01/14/20 15:41 01/14/20 15:41 Intake & Output 01/13/20 01/14/20 01/15/20 06:59 06:59 06:59 Intake Total 2600 3320 540 Output Total 300 Balance 2300 3320 540 Weight 63.4 kg 64.6 kg General appearance: PRESENT: no acute distress Eye exam: PRESENT: PERRLA Respiratory exam: PRESENT: clear to auscultation carolyn Cardiovascular exam: PRESENT: +S1, +S2 GI/Abdominal exam: PRESENT: soft Results Laboratory Results: 01/14/20 06:30 01/14/20 06:33 01/14/20 01/14/20 06:30 06:33 WBC 5.3 RBC 1.38 L Hgb 6.4 L Hct 18.5 L MCV 133 H MCH 46.5 H MCHC 34.9 RDW 16.1 H Plt Count 203 Seg Neutrophils % Not Reportable Sodium 137.5 Potassium 4.2 Chloride 107 Carbon Dioxide 23 Anion Gap 8 BUN 11 Creatinine 0.66 Est GFR ( Amer) > 60 Glucose 97 Calcium 8.8 Total Bilirubin 2.8 H AST 41 H Alkaline Phosphatase 107 Total Protein 7.2 Albumin 4.0 Assessment & Plan - Diagnosis (1) Sickle cell anemia with crisis Is this a current diagnosis for this admission?: Yes Plan: Continue treatment - Time Time Spent with patient: 25-34 minutes Level of Care: MEDICAL Medications reviewed and adjusted accordingly: Yes Anticipated discharge: Home Anticipated DC Timeframe: Other
[2020-01-15] MEDS: HYDROMORPHONE HCL INJ/PF 2 MG/ML AMPULE IV PRN ×10 (02:08→21:25)
[2020-01-15] MEDS: NORMAL SALINE 1000 ML 1,000 ML IV PRN ×3 (02:12→21:31)
[2020-01-15] MEDS: DIPHENHYDRAMINE HCL 50 MG/ML VIAL IV PRN ×3 (04:11→17:25)
[2020-01-15] MEDS: PROMETHAZINE HCL INJ 25 MG/1 ML VIAL IV PRN ×3 (08:59→21:25)
[2020-01-15] MEDS: MULTIVITAMIN TABLET PO SCH (11:20)
[2020-01-15] MEDS: GABAPENTIN 300 MG CAPSULE PO SCH ×2 (11:20→21:25)
[2020-01-15] MEDS: CHOLECALCIFEROL (D3) 1,000 UNIT (25 MCG) TABLET PO SCH (11:20)
[2020-01-15] MEDS: HYDROXYUREA 500 MG CAPSULE PO SCH ×3 (11:20→17:31)
[2020-01-15] MEDS: SENNOSIDES/DOCUSATE 8.6-50 MG 1 EACH TABLET PO SCH ×2 (11:20→17:26)
[2020-01-15] MEDS: FOLIC ACID 1 MG TABLET PO SCH (11:21)
[2020-01-15] MEDS: POLYETHYLENE GLYCOL 3350 POWDER 17 GM/1 PACKET PO SCH (11:22)
--- NOTE | 2020-01-15 21:30 | PDOC PROGRESS REPORT ---
Subjective Progress Note for:: 01/15/20 Subjective:: Patient seen by the bedside, she seems to be improving Reason For Visit: SICKLE CELL CRISIS WITH PAIN Physical Exam Vital Signs: Temp Pulse Resp BP Pulse Ox 99.1 F 89 20 117/59 L 100 01/15/20 17:00 01/15/20 17:00 01/15/20 17:00 01/15/20 17:00 01/15/20 17:00 Intake & Output 01/14/20 01/15/20 01/16/20 06:59 06:59 06:59 Intake Total 3320 1422 1000 Balance 3320 1422 1000 Weight 64.6 kg 64.6 kg General appearance: PRESENT: no acute distress Eye exam: PRESENT: PERRLA Respiratory exam: PRESENT: clear to auscultation carolyn Cardiovascular exam: PRESENT: +S1, +S2 GI/Abdominal exam: PRESENT: soft Neurological exam: PRESENT: alert Results Laboratory Results: 01/14/20 06:30 01/14/20 06:33 Assessment & Plan - Diagnosis (1) Sickle cell anemia with crisis Is this a current diagnosis for this admission?: Yes Plan: Continue treatment - Time Time Spent with patient: 15-24 minutes Level of Care: MEDICAL Medications reviewed and adjusted accordingly: No Anticipated discharge: Home Anticipated DC Timeframe: within 72 hours
[2020-01-16] MEDS: HYDROMORPHONE HCL INJ/PF 2 MG/ML AMPULE IV PRN ×10 (02:08→23:31)
[2020-01-16] MEDS: PROMETHAZINE HCL INJ 25 MG/1 ML VIAL IV PRN ×3 (04:36→19:03)
[2020-01-16] MEDS: DIPHENHYDRAMINE HCL 50 MG/ML VIAL IV PRN ×4 (07:30→21:14)
--- NOTE | 2020-01-16 08:11 | PDOC PROGRESS REPORT ---
Subjective Progress Note for:: 01/16/20 Subjective:: Patient is quite distressed this morning as she states that her pain has not improved and another provider was quite rude to her. She has been eating and drinking OK but has not yet been able to get up and walk in the hallway. Reason For Visit: SICKLE CELL CRISIS WITH PAIN Physical Exam Vital Signs: Temp Pulse Resp BP Pulse Ox 99.0 F 90 18 126/66 H 100 01/15/20 23:43 01/15/20 23:43 01/15/20 23:43 01/15/20 23:43 01/15/20 23:43 Intake & Output 01/15/20 01/16/20 01/17/20 06:59 06:59 06:59 Intake Total 1422 1920 Balance 1422 1920 Weight 64.6 kg 64.6 kg General appearance: PRESENT: mild distress Head exam: PRESENT: normocephalic Eye exam: PRESENT: EOMI Respiratory exam: PRESENT: prolonged expiratory phas, tachypnea Extremities exam: PRESENT: +1 edema - Left upper extremity Musculoskeletal exam: PRESENT: normal inspection Neurological exam: PRESENT: alert, awake Psychiatric exam: PRESENT: appropriate affect Skin exam: PRESENT: normal color Results Laboratory Results: 01/14/20 06:30 01/14/20 06:33 Assessment & Plan - Diagnosis (1) Sickle cell pain crisis Is this a current diagnosis for this admission?: Yes Plan: I will restart her Long-acting pain medication. I will increase her Dilaudid. I will change her NS to 1/2 NS. Still awaiting approval of [id number] for Sickle Cell disease. Will start this LIEN. I have reassured her that I have seen NOTHING to indicate that she is addicted to narcotics, or that she has abused them in any way. She has a very painful disease and should NOT be treated as a drug addict. - Time Time Spent with patient: 15-24 minutes
[2020-01-16] MEDS: SENNOSIDES/DOCUSATE 8.6-50 MG 1 EACH TABLET PO SCH (10:28)
[2020-01-16] MEDS: CHOLECALCIFEROL (D3) 1,000 UNIT (25 MCG) TABLET PO SCH (10:28)
[2020-01-16] MEDS: FOLIC ACID 1 MG TABLET PO SCH (10:29)
[2020-01-16] MEDS: GABAPENTIN 300 MG CAPSULE PO SCH ×2 (10:29→21:15)
[2020-01-16] MEDS: MULTIVITAMIN TABLET PO SCH (10:30)
[2020-01-16] MEDS: HYDROXYUREA 500 MG CAPSULE PO SCH ×3 (10:34→19:06)
[2020-01-16] MEDS: ERGOCALCIFEROL (VITAMIN D2) 50000 UNIT (1.25 MG) CAPSULE PO SCH (10:41)
[2020-01-16] MEDS: POLYETHYLENE GLYCOL 3350 POWDER 17 GM/1 PACKET PO SCH (12:29)
[2020-01-16] MEDS: OXYCODONE HCL SR 10 MG TABLET PO SCH ×2 (12:31→21:15)
[2020-01-16] MEDS: 1/2 NORMAL SALINE 1,000 ML IV PRN (15:29)
--- NOTE | 2020-01-16 18:03 | PDOC PROGRESS REPORT ---
Subjective Progress Note for:: 01/16/20 Subjective:: Patient seen by the bedside, she continues to depend on Dilaudid Reason For Visit: SICKLE CELL CRISIS WITH PAIN Physical Exam Vital Signs: Temp Pulse Resp BP Pulse Ox 100.7 F H 86 16 110/65 100 01/16/20 11:50 01/16/20 11:50 01/16/20 11:50 01/16/20 11:50 01/16/20 11:50 Intake & Output 01/15/20 01/16/20 01/17/20 06:59 06:59 06:59 Intake Total 1422 1920 1575 Balance 1422 1920 1575 Weight 64.6 kg 64.6 kg General appearance: PRESENT: no acute distress Eye exam: PRESENT: PERRLA Respiratory exam: PRESENT: clear to auscultation carolyn Cardiovascular exam: PRESENT: +S1, +S2 GI/Abdominal exam: PRESENT: soft Results Laboratory Results: 01/14/20 06:30 01/14/20 06:33 Assessment & Plan - Diagnosis (1) Sickle cell anemia with crisis Is this a current diagnosis for this admission?: Yes (2) Opioid dependence Qualifiers: Substance use status: with unspecified opioid-induced disorder Qualified Code(s): F11.29 - Opioid dependence with unspecified opioid-induced disorder Is this a current diagnosis for this admission?: Yes - Time Time Spent with patient: Less than 15 minutes Level of Care: MEDICAL Anticipated discharge: Home
[2020-01-17] MEDS: 1/2 NORMAL SALINE 1,000 ML IV PRN ×3 (01:32→12:47)
[2020-01-17] MEDS: HYDROMORPHONE HCL INJ/PF 2 MG/ML AMPULE IV PRN ×9 (01:34→22:37)
[2020-01-17] MEDS: PROMETHAZINE HCL INJ 25 MG/1 ML VIAL IV PRN ×4 (01:34→22:38)
[2020-01-17] MEDS: DIPHENHYDRAMINE HCL 50 MG/ML VIAL IV PRN ×3 (05:32→19:35)
--- NOTE | 2020-01-17 07:43 | PDOC PROGRESS REPORT ---
Subjective Progress Note for:: 01/17/20 Subjective:: Patient still complaining about pain all over, especially upper extremities. No dyspnea. She is having BMs twice a day. Trying to eat and drink well. She still has not been up to walk. ROS: No headaches. No rash. Reason For Visit: SICKLE CELL CRISIS WITH PAIN Physical Exam Vital Signs: Temp Pulse Resp BP Pulse Ox 99.3 F 86 18 104/62 100 01/16/20 23:42 01/16/20 23:42 01/16/20 23:42 01/16/20 23:42 01/16/20 23:42 Intake & Output 01/16/20 01/17/20 01/18/20 06:59 06:59 06:59 Intake Total 0 5713 Balance 1919 5713 Weight 64.6 kg 65.2 kg General appearance: PRESENT: well-developed, well-nourished Head exam: PRESENT: normocephalic Eye exam: PRESENT: EOMI Respiratory exam: PRESENT: unlabored Extremities exam: PRESENT: +1 edema - Left upper extremity. No change. Doppler previously has been negative. Neurological exam: PRESENT: alert, awake, oriented to person, oriented to place, oriented to time, oriented to situation Psychiatric exam: PRESENT: appropriate affect Skin exam: PRESENT: normal color Results Laboratory Results: 01/14/20 06:30 01/14/20 06:33 Assessment & Plan - Diagnosis (1) Sickle cell pain crisis Is this a current diagnosis for this admission?: Yes Plan: Continue current pain meds. Dilaudid was increased yesterday, but can increase again today if needed. Continue OxyCOntin. I will add Banana bag daily. - Time Time Spent with patient: Less than 15 minutes - Plan Summary Plan Summary: I have encouraged her to walk in hallway daily with assistance.
[2020-01-17] MEDS: POLYETHYLENE GLYCOL 3350 POWDER 17 GM/1 PACKET PO SCH (10:12)
[2020-01-17] MEDS: HYDROXYUREA 500 MG CAPSULE PO SCH ×3 (10:17→17:24)
[2020-01-17] MEDS: OXYCODONE HCL SR 10 MG TABLET PO SCH ×2 (10:18→21:25)
[2020-01-17] MEDS: MULTIVITAMIN TABLET PO SCH (10:18)
[2020-01-17] MEDS: GABAPENTIN 300 MG CAPSULE PO SCH ×2 (10:18→21:25)
[2020-01-17] MEDS: SENNOSIDES/DOCUSATE 8.6-50 MG 1 EACH TABLET PO SCH ×3 (10:18→21:53)
[2020-01-17] MEDS: CHOLECALCIFEROL (D3) 1,000 UNIT (25 MCG) TABLET PO SCH (10:18)
[2020-01-17] MEDS: FOLIC ACID 1 MG TABLET PO SCH (10:18)
[2020-01-17] MEDS: NORMAL SALINE 1000 ML 1,000 ML with POTASSIUM CHLORIDE 10 MEQ, MAGNESIUM SULFATE 8 MEQ,... IV SCH ×5 (17:23)
--- NOTE | 2020-01-17 21:09 | PDOC PROGRESS REPORT ---
Subjective Progress Note for:: 01/17/20 Subjective:: Patient seen today by the bedside working with PT no new issues to address Reason For Visit: SICKLE CELL CRISIS WITH PAIN Physical Exam Vital Signs: Temp Pulse Resp BP Pulse Ox 99 F 88 18 113/62 97 01/17/20 13:00 01/17/20 13:00 01/17/20 13:00 01/17/20 13:00 01/17/20 13:00 Intake & Output 01/16/20 01/17/20 01/18/20 06:59 06:59 06:59 Intake Total 1920 5713 2182 Balance 1920 5713 2182 Weight 64.6 kg 65.2 kg Results Laboratory Results: 01/14/20 06:30 01/14/20 06:33 Assessment & Plan - Diagnosis (1) Sickle cell anemia with crisis Is this a current diagnosis for this admission?: Yes (2) Opioid dependence Qualifiers: Substance use status: with unspecified opioid-induced disorder Qualified Code(s): F11.29 - Opioid dependence with unspecified opioid-induced disorder Is this a current diagnosis for this admission?: Yes - Time Time Spent with patient: Less than 15 minutes Level of Care: MEDICAL Medications reviewed and adjusted accordingly: Yes Anticipated discharge: Home Anticipated DC Timeframe: Other
[2020-01-18] MEDS: HYDROMORPHONE HCL INJ/PF 2 MG/ML AMPULE IV PRN ×11 (01:15→21:54)
[2020-01-18] MEDS: DIPHENHYDRAMINE HCL 50 MG/ML VIAL IV PRN ×3 (03:38→17:37)
[2020-01-18] MEDS: 1/2 NORMAL SALINE 1,000 ML IV PRN ×2 (05:19→13:53)
[2020-01-18] MEDS: PROMETHAZINE HCL INJ 25 MG/1 ML VIAL IV PRN ×3 (05:43→19:38)
--- NOTE | 2020-01-18 08:50 | PDOC PROGRESS REPORT ---
Subjective Progress Note for:: 01/18/20 Subjective:: Patient is sleepy this morning. She reports continued pain, but a bit better this morning. She was able to walk in hallway yesterday and also received her banana bag. Reason For Visit: SICKLE CELL CRISIS WITH PAIN Physical Exam Vital Signs: Temp Pulse Resp BP Pulse Ox 99.4 F 88 12 103/56 L 98 01/18/20 07:11 01/18/20 07:11 01/18/20 07:11 01/18/20 07:11 01/18/20 07:11 Intake & Output 01/17/20 01/18/20 01/19/20 06:59 06:59 06:59 Intake Total 5713 3802 Balance 5713 3802 Weight 65.2 kg 66.3 kg General appearance: PRESENT: well-developed, well-nourished Head exam: PRESENT: normocephalic Respiratory exam: PRESENT: unlabored Extremities exam: PRESENT: +1 edema - Left upper extremity. Neurological exam: PRESENT: alert, awake, oriented to person, oriented to place Psychiatric exam: PRESENT: appropriate affect Skin exam: PRESENT: normal color Results Laboratory Results: 01/14/20 06:30 01/14/20 06:33 Assessment & Plan - Diagnosis (1) Sickle cell pain crisis Is this a current diagnosis for this admission?: Yes Plan: No changes to pain regimen today. Encouraged her to continue walking. Will try to decrease Dilaudid tomorrow. - Time Time Spent with patient: Less than 15 minutes
[2020-01-18] MEDS: HYDROXYUREA 500 MG CAPSULE PO SCH ×3 (09:38→17:04)
[2020-01-18] MEDS: GABAPENTIN 300 MG CAPSULE PO SCH ×2 (09:38→21:53)
[2020-01-18] MEDS: CHOLECALCIFEROL (D3) 1,000 UNIT (25 MCG) TABLET PO SCH (09:38)
[2020-01-18] MEDS: SENNOSIDES/DOCUSATE 8.6-50 MG 1 EACH TABLET PO SCH ×2 (09:38→17:27)
[2020-01-18] MEDS: OXYCODONE HCL SR 10 MG TABLET PO SCH ×2 (09:38→23:07)
[2020-01-18] MEDS: FOLIC ACID 1 MG TABLET PO SCH (09:39)
[2020-01-18] MEDS: POLYETHYLENE GLYCOL 3350 POWDER 17 GM/1 PACKET PO SCH (09:42)
[2020-01-18] MEDS ORDERED: EPOETIN ALFA-EPBX 10,000 UNIT/ML VIAL (NON-ESRD) IV SCH (10:00)
[2020-01-18] MEDS ORDERED: [UNRECOGNIZED DRUG - OTHER] IJ SCH (10:00)
[2020-01-18] MEDS ORDERED: EPOETIN ALFA IJ SCH (10:00)
[2020-01-18] MEDS ORDERED: EPOETIN ALFA-EPBX 40,000 UNIT/ML VIAL (NON-ESRD) IV SCH (10:00)
[2020-01-18] MEDS: DISPOSABLE SUBCUT SCH (12:02)
[2020-01-18] MEDS: [UNRECOGNIZED DRUG - OTHER] SUBCUT SCH (12:02)
[2020-01-18] MEDS: EPOETIN ALFA EPBX SUBCUT SCH (12:02)
[2020-01-18] MEDS: MULTIVITAMIN TABLET PO SCH (12:10)
--- NOTE | 2020-01-18 15:04 | RADIOLOGY REPORT (SQ) ---
EXAM DESCRIPTION: ELBOW LEFT AP/LATERAL IMAGES COMPLETED DATE/TIME: 01/18/2020 2:52 pm REASON FOR STUDY: PAIN COMPARISON: 09/28/2015, 09/15/2015 NUMBER OF VIEWS: Two views. TECHNIQUE: AP, lateral, and both oblique radiographic images acquired of the left elbow. LIMITATIONS: None. FINDINGS: MINERALIZATION: Normal. BONES: Chronic radial head dislocation. Degenerative changes in the joint itself. JOINT: No joint effusion. SOFT TISSUES: No soft tissue swelling. No foreign body. OTHER: No other significant finding. IMPRESSION: Chronic radial head dislocation. Degenerative changes. No acute findings. TECHNICAL DOCUMENTATION: JOB ID: [id number] [employer]- All Rights Reserved Reading location - IP/workstation name: [email or web address]
[2020-01-18] MEDS: NORMAL SALINE 1000 ML 1,000 ML with POTASSIUM CHLORIDE 10 MEQ, MAGNESIUM SULFATE 8 MEQ,... IV SCH ×5 (17:02)
--- NOTE | 2020-01-18 21:11 | PDOC PROGRESS REPORT ---
Subjective Progress Note for:: 01/18/20 Subjective:: Patient seen by the bedside in deep sleep, Arousable, complains of left elbow pain, x-ray obtained, demonstrated chronic radial head dislocation Reason For Visit: SICKLE CELL CRISIS WITH PAIN Physical Exam Vital Signs: Temp Pulse Resp BP Pulse Ox 99.3 F 80 12 108/54 L 100 01/18/20 15:05 01/18/20 15:05 01/18/20 15:05 01/18/20 15:05 01/18/20 15:05 Intake & Output 01/17/20 01/18/20 01/19/20 06:59 06:59 06:59 Intake Total 5713 4820 1856 Balance 5713 4820 1856 Weight 65.2 kg 66.3 kg Results Laboratory Results: 01/14/20 06:30 01/14/20 06:33 Impressions: Elbow X-Ray 01/18/20 13:58 IMPRESSION: Chronic radial head dislocation. Degenerative changes. No acute findings. Assessment & Plan - Diagnosis (1) Sickle cell anemia with crisis Is this a current diagnosis for this admission?: Yes (2) Opioid dependence Qualifiers: Substance use status: with unspecified opioid-induced disorder Qualified Code(s): F11.29 - Opioid dependence with unspecified opioid-induced disorder Is this a current diagnosis for this admission?: Yes (3) Radial head dislocation Qualifiers: Encounter type: subsequent encounter Laterality: unspecified laterality Qualified Code(s): S53.006D - Unspecified dislocation of unspecified radial head, subsequent encounter Is this a current diagnosis for this admission?: Yes - Time Time Spent with patient: Less than 15 minutes Level of Care: MEDICAL Medications reviewed and adjusted accordingly: Yes Anticipated discharge: Home Anticipated DC Timeframe: Other
[2020-01-19] MEDS: HYDROMORPHONE HCL INJ/PF 2 MG/ML AMPULE IV PRN ×10 (00:08→21:41)
[2020-01-19] MEDS: DIPHENHYDRAMINE HCL 50 MG/ML VIAL IV PRN ×4 (00:09→21:41)
[2020-01-19] MEDS: PROMETHAZINE HCL INJ 25 MG/1 ML VIAL IV PRN ×3 (04:30→17:47)
[2020-01-19] MEDS: CHOLECALCIFEROL (D3) 1,000 UNIT (25 MCG) TABLET PO SCH (10:59)
[2020-01-19] MEDS: FOLIC ACID 1 MG TABLET PO SCH (10:59)
[2020-01-19] MEDS: SENNOSIDES/DOCUSATE 8.6-50 MG 1 EACH TABLET PO SCH ×2 (10:59→17:47)
[2020-01-19] MEDS: MULTIVITAMIN TABLET PO SCH (11:00)
[2020-01-19] MEDS: GABAPENTIN 300 MG CAPSULE PO SCH ×2 (11:00→21:42)
[2020-01-19] MEDS: OXYCODONE HCL SR 10 MG TABLET PO SCH ×2 (11:00→21:42)
[2020-01-19] MEDS: POLYETHYLENE GLYCOL 3350 POWDER 17 GM/1 PACKET PO SCH (11:02)
[2020-01-19] MEDS: HYDROXYUREA 500 MG CAPSULE PO SCH ×3 (11:03→17:47)
[2020-01-19] MEDS: 1/2 NORMAL SALINE 1,000 ML IV PRN (13:18)
--- NOTE | 2020-01-19 14:20 | PDOC PROGRESS REPORT ---
Subjective Progress Note for:: 01/19/20 Subjective:: Seen by the bedside in deep sleep Reason For Visit: SICKLE CELL CRISIS WITH PAIN Physical Exam Vital Signs: Temp Pulse Resp BP Pulse Ox 100.8 F H 95 17 98/49 L 94 01/19/20 11:14 01/19/20 11:14 01/19/20 11:14 01/19/20 11:14 01/19/20 11:14 Intake & Output 01/18/20 01/19/20 01/20/20 06:59 06:59 06:59 Intake Total 4820 4524 260 Balance 4820 4524 260 Weight 66.3 kg 66.3 kg Results Laboratory Results: 01/14/20 06:30 01/14/20 06:33 Impressions: Elbow X-Ray 01/18/20 13:58 IMPRESSION: Chronic radial head dislocation. Degenerative changes. No acute findings. Assessment & Plan - Diagnosis (1) Sickle cell anemia with crisis Is this a current diagnosis for this admission?: Yes (2) Opioid dependence Qualifiers: Substance use status: with unspecified opioid-induced disorder Qualified Code(s): F11.29 - Opioid dependence with unspecified opioid-induced disorder Is this a current diagnosis for this admission?: Yes (3) Radial head dislocation Qualifiers: Encounter type: subsequent encounter Laterality: unspecified laterality Qualified Code(s): S53.006D - Unspecified dislocation of unspecified radial head, subsequent encounter Is this a current diagnosis for this admission?: Yes - Time Time Spent with patient: Less than 15 minutes Level of Care: MEDICAL Anticipated discharge: Home Anticipated DC Timeframe: Other
--- NOTE | 2020-01-19 15:14 | PDOC PROGRESS REPORT ---
Subjective Progress Note for:: 01/19/20 Subjective:: Patient reports no change from yesterday. Pain is well controlled with current meds. She was able to walk yesterday, but has not been up today. No other complaints. Reason For Visit: SICKLE CELL CRISIS WITH PAIN Physical Exam Vital Signs: Temp Pulse Resp BP Pulse Ox 100.8 F H 95 17 98/49 L 94 01/19/20 11:14 01/19/20 11:14 01/19/20 11:14 01/19/20 11:14 01/19/20 11:14 Intake & Output 01/18/20 01/19/20 01/20/20 06:59 06:59 06:59 Intake Total 4820 4524 260 Balance 4820 4524 260 Weight 66.3 kg 66.3 kg General appearance: PRESENT: no acute distress Head exam: PRESENT: normocephalic Neck exam: ABSENT: lymphadenopathy Respiratory exam: PRESENT: unlabored Musculoskeletal exam: PRESENT: other - In obvious pain. Decreased ROM in most joints Neurological exam: PRESENT: alert, awake Psychiatric exam: PRESENT: appropriate affect Skin exam: PRESENT: normal color Results Laboratory Results: 01/14/20 06:30 01/14/20 06:33 Impressions: Elbow X-Ray 01/18/20 13:58 IMPRESSION: Chronic radial head dislocation. Degenerative changes. No acute findings. Assessment & Plan - Diagnosis (1) Sickle cell pain crisis Is this a current diagnosis for this admission?: Yes Plan: No changes today. I will recheck CBC. CMP, [facility] on Tuesday and will start to wean her pain meds again at that time. I have encouraged her to walk in hallway at least once a day. Nurses will make sure this happens. - Time Time Spent with patient: Less than 15 minutes
[2020-01-19] MEDS: NORMAL SALINE 1000 ML 1,000 ML with POTASSIUM CHLORIDE 10 MEQ, MAGNESIUM SULFATE 8 MEQ,... IV SCH ×5 (17:47)
[2020-01-20] MEDS: HYDROMORPHONE HCL INJ/PF 2 MG/ML AMPULE IV PRN ×10 (02:16→23:15)
[2020-01-20] MEDS: PROMETHAZINE HCL INJ 25 MG/1 ML VIAL IV PRN ×4 (04:22→23:24)
[2020-01-20] MEDS: DIPHENHYDRAMINE HCL 50 MG/ML VIAL IV PRN ×3 (06:47→20:42)
[2020-01-20] MEDS: OXYCODONE HCL SR 10 MG TABLET PO SCH ×2 (11:33→23:15)
[2020-01-20] MEDS: HYDROXYUREA 500 MG CAPSULE PO SCH ×3 (11:33→18:29)
[2020-01-20] MEDS: FOLIC ACID 1 MG TABLET PO SCH (11:34)
[2020-01-20] MEDS: CHOLECALCIFEROL (D3) 1,000 UNIT (25 MCG) TABLET PO SCH (11:34)
[2020-01-20] MEDS: GABAPENTIN 300 MG CAPSULE PO SCH ×2 (11:34→23:15)
[2020-01-20] MEDS: SENNOSIDES/DOCUSATE 8.6-50 MG 1 EACH TABLET PO SCH ×2 (11:34→18:29)
[2020-01-20] MEDS: MULTIVITAMIN TABLET PO SCH (11:34)
[2020-01-20] MEDS: 1/2 NORMAL SALINE 1,000 ML IV PRN (11:35)
[2020-01-20] MEDS: POLYETHYLENE GLYCOL 3350 POWDER 17 GM/1 PACKET PO SCH (11:35)
--- NOTE | 2020-01-20 14:08 | PDOC PROGRESS REPORT ---
Subjective Progress Note for:: 01/20/20 Subjective:: Patient seen by the bedside, she complain of pain in the left elbow, x-ray that was done showed chronic dislocation of the radial head, orthopedic be consulted for guidance Reason For Visit: SICKLE CELL CRISIS WITH PAIN Physical Exam Vital Signs: Temp Pulse Resp BP Pulse Ox 98.8 F 99 17 104/63 96 01/20/20 08:00 01/20/20 08:00 01/20/20 08:00 01/20/20 08:00 01/20/20 08:00 Intake & Output 01/19/20 01/20/20 01/21/20 06:59 06:59 06:59 Intake Total 4524 2060 Balance 4524 2060 Weight 66.3 kg 66.3 kg Results Laboratory Results: 01/14/20 06:30 01/14/20 06:33 Impressions: Elbow X-Ray 01/18/20 13:58 IMPRESSION: Chronic radial head dislocation. Degenerative changes. No acute findings. Assessment & Plan - Diagnosis (1) Sickle cell anemia with crisis Is this a current diagnosis for this admission?: Yes (2) Opioid dependence Qualifiers: Substance use status: with unspecified opioid-induced disorder Qualified Code(s): F11.29 - Opioid dependence with unspecified opioid-induced disorder Is this a current diagnosis for this admission?: Yes (3) Radial head dislocation Qualifiers: Encounter type: subsequent encounter Laterality: unspecified laterality Qualified Code(s): S53.006D - Unspecified dislocation of unspecified radial head, subsequent encounter Is this a current diagnosis for this admission?: Yes Plan: consult orthopedics - Time Time Spent with patient: 15-24 minutes Level of Care: MEDICAL Medications reviewed and adjusted accordingly: Yes Anticipated discharge: Home Anticipated DC Timeframe: within 36 hours
[2020-01-20] MEDS: NORMAL SALINE 1000 ML 1,000 ML with POTASSIUM CHLORIDE 10 MEQ, MAGNESIUM SULFATE 8 MEQ,... IV SCH ×5 (18:30)
[2020-01-21] MEDS: HYDROMORPHONE HCL INJ/PF 2 MG/ML AMPULE IV PRN ×10 (01:55→23:46)
[2020-01-21] MEDS: DIPHENHYDRAMINE HCL 50 MG/ML VIAL IV PRN ×4 (04:15→23:46)
[2020-01-21] MEDS: PROMETHAZINE HCL INJ 25 MG/1 ML VIAL IV PRN ×3 (06:16→21:41)
[2020-01-21 07:55] LABS: HEMATOCRIT 15.9 % (36.0-47.0); MEAN CORPUSCULAR HEMOGLOBIN 46.9 pg (27.0-33.4); MEAN CORPUSCULAR HGB CONC 34.9 g/dL (32.0-36.0); MEAN CORPUSCULAR VOLUME 135 fl (80-97); RED BLOOD COUNT 1.18 10^6/uL (3.72-5.28); RED CELL DISTRIBUTION WIDTH 17.3 % (11.5-14.0)
[2020-01-21 08:10] LABS: ALBUMIN 3.5 g/dL (3.5-5.0); ALKALINE PHOSPHATASE 120 U/L (38-126); ANION GAP 5 (5-19); ASPARTATE AMINO TRANSFERASE 49 U/L (14-36); BILIRUBIN,DIRECT 0.2 mg/dL (0.0-0.4); BILIRUBIN,TOTAL 2.1 mg/dL (0.2-1.3); BLOOD UREA NITROGEN 7 mg/dL (7-20); CARBON DIOXIDE 26 mmol/L (22-30); CHLORIDE 106 mmol/L (98-107); GLUCOSE 117 mg/dL (75-110); POTASSIUM 3.9 mmol/L (3.6-5.0); TOTAL PROTEIN 6.4 g/dL (6.3-8.2)
--- NOTE | 2020-01-21 08:17 | PDOC PROGRESS REPORT ---
Subjective Progress Note for:: 01/21/20 Subjective:: Patient states that her arms are still swollen. L>R. X-ray did not show any acute changes. No other complaints today. States that she has been getting and walking. However, nurses notes contradict this. Reason For Visit: SICKLE CELL CRISIS WITH PAIN Physical Exam Vital Signs: Temp Pulse Resp BP Pulse Ox 99.3 F 89 18 104/57 L 98 01/20/20 23:47 01/20/20 23:47 01/20/20 23:47 01/20/20 23:47 01/20/20 23:47 Intake & Output 01/20/20 01/21/20 01/22/20 06:59 06:59 06:59 Intake Total 3078 3602 Balance 3078 3602 Weight 66.3 kg 66.3 kg General appearance: PRESENT: no acute distress, well-developed, well-nourished Head exam: PRESENT: normocephalic Eye exam: PRESENT: EOMI Respiratory exam: PRESENT: clear to auscultation carolyn, unlabored Cardiovascular exam: PRESENT: RRR GI/Abdominal exam: PRESENT: soft. ABSENT: tenderness Extremities exam: PRESENT: other - Pain with light touch bilateral ankles. Left upper extremity with mild edema, no erythem or warmth.. ABSENT: pedal edema Neurological exam: PRESENT: alert, awake, oriented to person, oriented to place, oriented to time, oriented to situation Psychiatric exam: PRESENT: appropriate affect Skin exam: PRESENT: normal color Results Laboratory Results: 01/21/20 06:10 Seg Neutrophils % Not Reportable Impressions: Elbow X-Ray 01/18/20 13:58 IMPRESSION: Chronic radial head dislocation. Degenerative changes. No acute findings. Assessment & Plan - Diagnosis (1) Sickle cell pain crisis Is this a current diagnosis for this admission?: Yes Plan: Will start weaning her IV dilaudid today. Await today's labs. Will check US of the left upper extremity to rule out DVT. Again encouraged her to wear her O2 and to walk in singh as much as possible. - Time Time Spent with patient: 15-24 minutes
[2020-01-21 08:41] LABS: WHITE BLOOD COUNT 3.1 10^3/uL (4.0-10.5)
[2020-01-21 08:48] LABS: ABSOLUTE LYMPHOCYTES# (MANUAL) 1.9 10^3/uL (0.5-4.7); ABSOLUTE MONOCYTES # (MANUAL) 0.1 10^3/uL (0.1-1.4); BASOPHILS % (MANUAL) 1 % (0-2); EOSINOPHILS % (MANUAL) 3 % (0-6); LYMPHOCYTES % (MANUAL) 61 % (13-45); MONOCYTES % (MANUAL) 3 % (3-13); NUCLEATED RED BLOOD CELLS 100 /100 WBC (0); SEGMENTED NEUTROPHILS % (MAN) 31 % (42-78); TOTAL CELLS COUNTED 100
[2020-01-21 09:02] LABS: ANISOCYTOSIS 1+; OVALOCYTES 1+; POIKILOCYTOSIS 2+; POLYCHROMASIA SLIGHT; SICKLE RED CELLS SLIGHT; TARGET CELLS 2+
[2020-01-21] MEDS: OXYCODONE HCL SR 10 MG TABLET PO SCH ×2 (09:02→21:41)
[2020-01-21] MEDS: GABAPENTIN 300 MG CAPSULE PO SCH ×2 (09:02→21:41)
[2020-01-21] MEDS: FOLIC ACID 1 MG TABLET PO SCH (09:02)
[2020-01-21] MEDS: SENNOSIDES/DOCUSATE 8.6-50 MG 1 EACH TABLET PO SCH ×2 (09:02→17:25)
[2020-01-21] MEDS: CHOLECALCIFEROL (D3) 1,000 UNIT (25 MCG) TABLET PO SCH (09:02)
[2020-01-21] MEDS: HYDROXYUREA 500 MG CAPSULE PO SCH ×3 (09:03→17:29)
[2020-01-21] MEDS: MULTIVITAMIN TABLET PO SCH (09:03)
[2020-01-21 09:04] LABS: PLATELET CLUMPS PRESENT; PLATELET COMMENT DECREASED
[2020-01-21] MEDS: POLYETHYLENE GLYCOL 3350 POWDER 17 GM/1 PACKET PO SCH (09:05)
[2020-01-21 09:09] LABS: PLATELET COUNT 138 10^3/uL (150-450)
[2020-01-21 09:13] LABS: HEMOGLOBIN 5.5 g/dL (12.0-15.5)
[2020-01-21] MEDS: NORMAL SALINE 1000 ML 1,000 ML with POTASSIUM CHLORIDE 10 MEQ, MAGNESIUM SULFATE 8 MEQ,... IV SCH ×5 (17:25)
--- NOTE | 2020-01-21 19:31 | PDOC PROGRESS REPORT ---
Subjective Progress Note for:: 01/21/20 Subjective:: Patient not seen yet by orthopedic, she has deformity of the left elbow Reason For Visit: SICKLE CELL CRISIS WITH PAIN Physical Exam Vital Signs: Temp Pulse Resp BP Pulse Ox 99.2 F 86 16 96/48 L 97 01/21/20 11:22 01/21/20 11:22 01/21/20 11:22 01/21/20 11:22 01/21/20 11:22 Intake & Output 01/20/20 01/21/20 01/22/20 06:59 06:59 06:59 Intake Total 3078 3602 602 Balance 3078 3602 602 Weight 66.3 kg 66.3 kg General appearance: PRESENT: no acute distress Eye exam: PRESENT: PERRLA Mouth exam: PRESENT: moist, tongue midline Neck exam: PRESENT: full ROM Cardiovascular exam: PRESENT: RRR Vascular exam: PRESENT: normal capillary refill Neurological exam: PRESENT: alert, CN II-XII grossly intact. ABSENT: motor sensory deficit Psychiatric exam: PRESENT: appropriate affect Skin exam: PRESENT: dry, intact, warm. ABSENT: cyanosis, rash Results Laboratory Results: 01/21/20 06:10 01/21/20 06:10 01/21/20 01/21/20 06:10 06:10 WBC 3.1 L RBC 1.18 L Hgb 5.5 L Hct 15.9 L MCV 135 H MCH 46.9 H MCHC 34.9 RDW 17.3 H Plt Count 138 L Seg Neutrophils % Not Reportable Sodium 136.8 L Potassium 3.9 Chloride 106 Carbon Dioxide 26 Anion Gap 5 BUN 7 Creatinine 0.54 Est GFR ( Amer) > 60 Glucose 117 H Calcium 8.0 L Total Bilirubin 2.1 H AST 49 H Alkaline Phosphatase 120 Total Protein 6.4 Albumin 3.5 Impressions: Elbow X-Ray 01/18/20 13:58 IMPRESSION: Chronic radial head dislocation. Degenerative changes. No acute findings. Assessment & Plan - Diagnosis (1) Sickle cell anemia with crisis Is this a current diagnosis for this admission?: Yes (2) Opioid dependence Qualifiers: Substance use status: with unspecified opioid-induced disorder Qualified Code(s): F11.29 - Opioid dependence with unspecified opioid-induced disorder Is this a current diagnosis for this admission?: Yes (3) Radial head dislocation Qualifiers: Encounter type: subsequent encounter Laterality: unspecified laterality Qualified Code(s): S53.006D - Unspecified dislocation of unspecified radial head, subsequent encounter Is this a current diagnosis for this admission?: Yes - Time Time Spent with patient: Less than 15 minutes Level of Care: MEDICAL Medications reviewed and adjusted accordingly: Yes Anticipated discharge: Home Anticipated DC Timeframe: within 72 hours
[2020-01-22] MEDS: HYDROMORPHONE HCL INJ/PF 2 MG/ML AMPULE IV PRN ×10 (01:46→22:25)
[2020-01-22] MEDS: PROMETHAZINE HCL INJ 25 MG/1 ML VIAL IV PRN ×3 (03:53→17:48)
[2020-01-22] MEDS: DIPHENHYDRAMINE HCL 50 MG/ML VIAL IV PRN ×3 (05:48→19:56)
[2020-01-22] MEDS: 1/2 NORMAL SALINE 1,000 ML IV PRN ×2 (05:52→12:27)
--- NOTE | 2020-01-22 08:31 | RADIOLOGY REPORT (SQ) ---
EXAM DESCRIPTION: VENOUS UNILATERAL UPPER IMAGES COMPLETED DATE/TIME: 01/21/2020 7:38 pm REASON FOR STUDY: L upper extrem swelling COMPARISON: None. TECHNIQUE: Dynamic and static mart scale and color images acquired of the left arm venous system. Se lected spectral images acquired with additional compression and augmentation maneuvers. The contralat eral subclavian vein and internal jugular vein were also imaged. Images stored on PACS. LIMITATIONS: None. FINDINGS: INTERNAL JUGULAR VEIN: Normal phasicity, compression, augmentation. No visualized echogeni c material on mart scale. No defects on color images. Comparison opposite side normal. SUBCLAVIAN VEIN: Normal compression, augmentation. No visualized echogenic material on mart scale. No defects on color images. AXILLARY VEIN: Normal compression, augmentation. No visualized echogenic material on mart scale. No d efects on color images. BRACHIAL VEIN: Normal compression, augmentation. No visualized echogenic material on mart scale. No d efects on color images. BASILIC VEIN: Normal compression, augmentation. No visualized echogenic material on mart scale. No de fects on color images. CEPHALIC VEIN: Normal compression, augmentation. No visualized echogenic material on mart scale. No d efects on color images. OTHER: No other significant finding. CONTRALATERAL SUBCLAVIAN VEIN AND INTERNAL JUGULAR VEIN: Not imaged. IMPRESSION: NO EVIDENCE DVT OR SVT LEFT ARM. TECHNICAL DOCUMENTATION: JOB ID: [id number] 2010 [employer]- All Rights Reserved Reading location - IP/workstation name: [email or web address]
--- NOTE | 2020-01-22 08:48 | PDOC PROGRESS REPORT ---
Subjective Progress Note for:: 01/22/20 Subjective:: Patient seen by the bedside, I spoke to DR Davila orthopedics, about the left elbow joint, she will be seen in consultation Reason For Visit: SICKLE CELL CRISIS WITH PAIN Physical Exam Vital Signs: Temp Pulse Resp BP Pulse Ox 99.1 F 88 17 99/48 L 100 01/21/20 23:15 01/21/20 23:15 01/21/20 23:15 01/21/20 23:15 01/21/20 23:15 Intake & Output 01/21/20 01/22/20 01/23/20 06:59 06:59 06:59 Intake Total 3602 1812 Balance 3602 1812 Weight 66.3 kg 66.3 kg General appearance: PRESENT: no acute distress Eye exam: PRESENT: PERRLA Respiratory exam: PRESENT: clear to auscultation carolyn Cardiovascular exam: PRESENT: +S1, +S2 GI/Abdominal exam: PRESENT: soft Results Laboratory Results: 01/21/20 06:10 01/21/20 06:10 01/21/20 06:10 WBC 3.1 L RBC 1.18 L Hgb 5.5 L Hct 15.9 L MCV 135 H MCH 46.9 H MCHC 34.9 RDW 17.3 H Plt Count 138 L Impressions: Elbow X-Ray 01/18/20 13:58 IMPRESSION: Chronic radial head dislocation. Degenerative changes. No acute findings. Venous Doppler Study 01/21/20 00:00 IMPRESSION: NO EVIDENCE DVT OR SVT LEFT ARM. Assessment & Plan - Diagnosis (1) Sickle cell anemia with crisis Is this a current diagnosis for this admission?: Yes (2) Opioid dependence Qualifiers: Substance use status: with unspecified opioid-induced disorder Qualified Code(s): F11.29 - Opioid dependence with unspecified opioid-induced disorder Is this a current diagnosis for this admission?: Yes (3) Radial head dislocation Qualifiers: Encounter type: subsequent encounter Laterality: unspecified laterality Qualified Code(s): S53.006D - Unspecified dislocation of unspecified radial head, subsequent encounter Is this a current diagnosis for this admission?: Yes - Time Time Spent with patient: Less than 15 minutes Level of Care: MEDICAL Anticipated discharge: Home
[2020-01-22] MEDS: OXYCODONE HCL SR 10 MG TABLET PO SCH ×2 (10:14→21:20)
[2020-01-22] MEDS: HYDROXYUREA 500 MG CAPSULE PO SCH ×3 (10:15→17:49)
[2020-01-22] MEDS: FOLIC ACID 1 MG TABLET PO SCH (10:15)
[2020-01-22] MEDS: GABAPENTIN 300 MG CAPSULE PO SCH ×2 (10:15→21:20)
[2020-01-22] MEDS: MULTIVITAMIN TABLET PO SCH (10:15)
[2020-01-22] MEDS: SENNOSIDES/DOCUSATE 8.6-50 MG 1 EACH TABLET PO SCH ×2 (10:15→17:48)
[2020-01-22] MEDS: CHOLECALCIFEROL (D3) 1,000 UNIT (25 MCG) TABLET PO SCH (10:15)
[2020-01-22] MEDS: POLYETHYLENE GLYCOL 3350 POWDER 17 GM/1 PACKET PO SCH (10:15)
--- NOTE | 2020-01-22 13:56 | PDOC PROGRESS REPORT ---
Subjective Progress Note for:: 01/22/20 Subjective:: Patient still complaining of arm swelling and shoulder pain. However, she believes pain medications are still working quite well. She still has not walked in hallway, according to nurses. Although the insist that they are encouraging her to walk regularly. She is not wearing her oxygen currently. Reason For Visit: SICKLE CELL CRISIS WITH PAIN Physical Exam Vital Signs: Temp Pulse Resp BP Pulse Ox 99.2 F 79 16 93/50 L 100 01/22/20 11:22 01/22/20 11:22 01/22/20 11:22 01/22/20 11:22 01/22/20 11:22 Intake & Output 01/21/20 01/22/20 01/23/20 06:59 06:59 06:59 Intake Total 3602 1812 2004 Balance 3602 1812 2004 Weight 66.3 kg 66.3 kg General appearance: PRESENT: no acute distress, well-developed, well-nourished Head exam: PRESENT: normocephalic Eye exam: PRESENT: EOMI Respiratory exam: PRESENT: unlabored Extremities exam: ABSENT: pedal edema Neurological exam: PRESENT: alert, awake Psychiatric exam: PRESENT: appropriate affect Skin exam: PRESENT: normal color Results Laboratory Results: 01/21/20 06:10 01/21/20 06:10 Impressions: Elbow X-Ray 01/18/20 13:58 IMPRESSION: Chronic radial head dislocation. Degenerative changes. No acute findings. Venous Doppler Study 01/21/20 00:00 IMPRESSION: NO EVIDENCE DVT OR SVT LEFT ARM. Assessment & Plan - Diagnosis (1) Sickle cell pain crisis Is this a current diagnosis for this admission?: Yes Plan: Her US of the Arm was negative for DVT. I will continue to wean her Dilaudid today. I have encouraged her to walk in the singh regularly. Hopefully, she will be ready for discharge by Tuesday. - Time Time Spent with patient: Less than 15 minutes
[2020-01-22] MEDS: NORMAL SALINE 1000 ML 1,000 ML with POTASSIUM CHLORIDE 10 MEQ, MAGNESIUM SULFATE 8 MEQ,... IV SCH ×5 (17:47)
[2020-01-23] MEDS: PROMETHAZINE HCL INJ 25 MG/1 ML VIAL IV PRN ×3 (00:33→19:34)
[2020-01-23] MEDS: HYDROMORPHONE HCL INJ/PF 2 MG/ML AMPULE IV PRN ×8 (00:33→21:54)
[2020-01-23] MEDS: DIPHENHYDRAMINE HCL 50 MG/ML VIAL IV PRN ×3 (03:11→17:07)
[2020-01-23] MEDS: 1/2 NORMAL SALINE 1,000 ML IV PRN ×2 (03:33→11:29)
--- NOTE | 2020-01-23 06:52 | PDOC CONSULTATION ---
Consultation Consult Date: 01/23/20 Provider Consulted: ANTHONY COLEMAN Consult reason:: Left elbow pain History of Present Illness Admission Date/PCP: 01/12/20 00:13 HOMA BARRAZA MD History of Present Illness: WILLIE ALAN is a 50 year old female Patient is a 50-year-old [id number] black female with sickle cell disease and what she reports is a 1 week history of left arm pain and functional disability. Prior to that she states that she had no limitations was able to walk her daughter's dog and gardening as such. 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 Denies: HIV Past Surgical History Past Surgical History: Reports: Appendectomy, Section, Cholecystectomy, Orthopedic Surgery - R knee, Tonsillectomy Denies: Amputation, Coronary Artery Bypass Graft, Gastric Bypass Surgery, Herniorrhaphy, Mastectomy, Pacemaker, Tubal Ligation Social History Information Source: Patient, [facility] [place] Records Smoking Status: Never Smoker Electronic Cigarette use?: No Frequency of Alcohol Use: None Hx Recreational Drug Use: No Drugs: None Hx Prescription Drug Abuse: No - Advance Directive Resuscitation Status: Full Code Family History Family History: Reviewed & Not Pertinent Parental Family History Reviewed: No Children Family History Reviewed: No Sibling(s) Family History Reviewed.: No Medication/Allergy Home Medications: Deferasirox [Jadenu] 360 mg PO DAILY 08/13/19 Epoetin Federico [Procrit Inj 20,000 Unit/1 ml Vial (Renal)] 60,000 unit IJ FR@1000 08/13/19 Folic Acid 1 mg PO DAILY 08/13/19 Gabapentin [Neurontin 300 mg Capsule] 300 mg PO Q12 08/13/19 Hydroxyurea [Hydrea 500 mg Capsule] 500 mg PO TID 08/13/19 Oxycodone HCl [Oxy-Ir 5 mg Tablet] 10 mg PO Q6HP PRN 08/13/19 Cholecalciferol (Vitamin D3) [Vitamin D3 1000 Unit Tablet] 5,000 unit PO DAILY 11/29/19 Oxycodone Myristate [Xtampza ER] 27 mg PO Q12 11/29/19 Ergocalciferol (Vitamin D2) [Drisdol 50,000 Unit (1.25MG) Capsule] 50,000 unit PO WE@1000 01/12/20 Multivitamin [Tab-A-Yosvany (Multiple Vitamin) Tablet] 1 tab PO DAILY 01/12/20 Allergies/Adverse Reactions: doxycycline [Doxycycline] Allergy (Severe, Verified 01/11/20 20:15) Review of Systems All systems: as per PMH Physical Exam Vital Signs: Temp Pulse Resp BP Pulse Ox 37.4 C 80 17 103/52 L 99 01/22/20 23:39 01/22/20 23:39 01/22/20 23:39 01/22/20 23:39 01/22/20 23:39 Intake & Output 01/21/20 01/22/20 01/23/20 06:59 06:59 06:59 Intake Total 3602 1812 4745 Balance 3602 1812 4745 Weight 66.3 kg 66.3 kg 66.3 kg Physical Exam: Patient patient is a somewhat disheveled appearing middle-aged black female lying in hospital bed in minor distress. Patient is alert, oriented, and appropriate. General appearance: PRESENT: no acute distress, mild distress Head exam: PRESENT: normocephalic Respiratory exam: PRESENT: unlabored Cardiovascular exam: PRESENT: RRR Vascular exam: PRESENT: normal capillary refill GI/Abdominal exam: PRESENT: soft Rectal exam: PRESENT: deferred Musculoskeletal exam: PRESENT: other - Lamination of the left upper extremity reveals obvious deformities and topical anatomy about the left elbow. Passive range of motion is 60 to 130 degrees with discomfort at both extremes. There is full pronation and supination. There is no skin abnormalities. Distal neuro vascular examination is intact. Results Laboratory Results: 01/21/20 06:10 01/21/20 06:10 Impressions: Elbow X-Ray 01/18/20 13:58 IMPRESSION: Chronic radial head dislocation. Degenerative changes. No acute findings. Venous Doppler Study 01/21/20 00:00 IMPRESSION: NO EVIDENCE DVT OR SVT LEFT ARM. Status: Imported from PACS Assessment & Plan - Diagnosis (1) Arthritis of elbow Is this a current diagnosis for this admission?: Yes Plan: 50-year-old black female with sickle cell disease and fairly significant left elbow arthritis and chronic radial head dislocation. The only surgical option for this patient would be for a left elbow replacement. Patient is somewhat hesitant to consider surgical intervention because of the risks. The advantages of this would be pain relief. It is opportune that this is the patient's nondominant extremity and that she has a relatively low functional level. The operation would take approximately 90 minutes and could be done on an outpatient basis. The patient's perioperative risk is certainly increased on the basis of her sickle cell disease. This is been discussed with the patient in great detail. I be glad to see the patient on an outpatient basis and approaches electively if she wishes to do so. - Time Time Spent: 50 to 70 Minutes Anticipated discharge: Other Anticipated DC Timeframe: Other
--- NOTE | 2020-01-23 09:16 | PDOC PROGRESS REPORT ---
Subjective Progress Note for:: 01/23/20 Subjective:: We will be decreasing Dilaudid today, for hopeful DC tomorrow. Reason For Visit: SICKLE CELL CRISIS WITH PAIN Physical Exam Vital Signs: Temp Pulse Resp BP Pulse Ox 99.3 F 80 17 103/52 L 99 01/22/20 23:39 01/22/20 23:39 01/22/20 23:39 01/22/20 23:39 01/22/20 23:39 Intake & Output 01/22/20 01/23/20 01/24/20 06:59 06:59 06:59 Intake Total 1812 4745 Balance 1812 4745 Weight 66.3 kg 66.3 kg General appearance: PRESENT: no acute distress, well-developed, well-nourished Head exam: PRESENT: atraumatic, normocephalic Eye exam: PRESENT: conjunctiva pink, EOMI, PERRLA. ABSENT: scleral icterus Ear exam: PRESENT: normal external ear exam Mouth exam: PRESENT: moist, tongue midline Neck exam: ABSENT: carotid bruit, JVD, lymphadenopathy, thyromegaly Respiratory exam: PRESENT: clear to auscultation carolyn. ABSENT: rales, rhonchi, wheezes Cardiovascular exam: PRESENT: RRR. ABSENT: diastolic murmur, rubs, systolic murmur Pulses: PRESENT: normal dorsalis pedis pul Vascular exam: PRESENT: normal capillary refill GI/Abdominal exam: PRESENT: normal bowel sounds, soft. ABSENT: distended, guarding, mass, organolmegaly, rebound, tenderness Rectal exam: PRESENT: deferred Extremities exam: PRESENT: full ROM. ABSENT: calf tenderness, clubbing, pedal edema Neurological exam: PRESENT: alert, awake, oriented to person, oriented to place, oriented to time, oriented to situation, CN II-XII grossly intact. ABSENT: motor sensory deficit Psychiatric exam: PRESENT: appropriate affect, normal mood. ABSENT: homicidal ideation, suicidal ideation Skin exam: PRESENT: dry, intact, warm. ABSENT: cyanosis, rash Results Laboratory Results: 01/21/20 06:10 01/21/20 06:10 Impressions: Elbow X-Ray 01/18/20 13:58 IMPRESSION: Chronic radial head dislocation. Degenerative changes. No acute findings. Venous Doppler Study 01/21/20 00:00 IMPRESSION: NO EVIDENCE DVT OR SVT LEFT ARM. 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
[2020-01-23] MEDS: OXYCODONE HCL SR 10 MG TABLET PO SCH ×2 (09:27→21:54)
[2020-01-23] MEDS: SENNOSIDES/DOCUSATE 8.6-50 MG 1 EACH TABLET PO SCH ×2 (09:27→17:07)
[2020-01-23] MEDS: CHOLECALCIFEROL (D3) 1,000 UNIT (25 MCG) TABLET PO SCH (09:27)
[2020-01-23] MEDS: MULTIVITAMIN TABLET PO SCH (09:27)
[2020-01-23] MEDS: FOLIC ACID 1 MG TABLET PO SCH (09:27)
[2020-01-23] MEDS: ERGOCALCIFEROL (VITAMIN D2) 50000 UNIT (1.25 MG) CAPSULE PO SCH (09:28)
[2020-01-23] MEDS: GABAPENTIN 300 MG CAPSULE PO SCH ×2 (09:28→21:54)
[2020-01-23] MEDS: HYDROXYUREA 500 MG CAPSULE PO SCH ×3 (09:28→17:07)
[2020-01-23] MEDS: POLYETHYLENE GLYCOL 3350 POWDER 17 GM/1 PACKET PO SCH (09:34)
--- NOTE | 2020-01-23 14:26 | PDOC PROGRESS REPORT ---
Subjective Progress Note for:: 01/23/20 Subjective:: Patient seen by the bedside, she was seen by orthopedic Dr. Davila, he recommend left elbow replacement, She is also on Dilaudid weaning hopefully from discharge tomorrow Reason For Visit: SICKLE CELL CRISIS WITH PAIN Physical Exam Vital Signs: Temp Pulse Resp BP Pulse Ox 99.2 F 84 18 91/53 L 97 01/23/20 11:47 01/23/20 11:47 01/23/20 11:47 01/23/20 11:47 01/23/20 11:47 Intake & Output 01/22/20 01/23/20 01/24/20 06:59 06:59 06:59 Intake Total 1812 4745 1620 Balance 1812 4745 1620 Weight 66.3 kg 66.3 kg General appearance: PRESENT: no acute distress Eye exam: PRESENT: PERRLA Respiratory exam: PRESENT: clear to auscultation carolyn Cardiovascular exam: PRESENT: +S1, +S2 GI/Abdominal exam: PRESENT: soft Results Laboratory Results: 01/21/20 06:10 01/21/20 06:10 Impressions: Elbow X-Ray 01/18/20 13:58 IMPRESSION: Chronic radial head dislocation. Degenerative changes. No acute findings. Venous Doppler Study 01/21/20 00:00 IMPRESSION: NO EVIDENCE DVT OR SVT LEFT ARM. Assessment & Plan - Diagnosis (1) Sickle cell anemia with crisis Is this a current diagnosis for this admission?: Yes (2) Opioid dependence Qualifiers: Substance use status: with unspecified opioid-induced disorder Qualified Code(s): F11.29 - Opioid dependence with unspecified opioid-induced disorder Is this a current diagnosis for this admission?: Yes (3) Radial head dislocation Qualifiers: Encounter type: subsequent encounter Laterality: unspecified laterality Q ualified Code(s): S53.006D - Unspecified dislocation of unspecified radial head, subsequent encounter Is this a current diagnosis for this admission?: Yes - Time Time Spent with patient: Less than 15 minutes Level of Care: MEDICAL Medications reviewed and adjusted accordingly: Yes Anticipated discharge: Home Anticipated DC Timeframe: within 24 hours
[2020-01-23] MEDS: NORMAL SALINE 1000 ML 1,000 ML with POTASSIUM CHLORIDE 10 MEQ, MAGNESIUM SULFATE 8 MEQ,... IV SCH ×5 (17:05)
[2020-01-24] MEDS: DIPHENHYDRAMINE HCL 50 MG/ML VIAL IV PRN ×3 (00:07→17:18)
[2020-01-24] MEDS: HYDROMORPHONE HCL INJ/PF 2 MG/ML AMPULE IV PRN ×8 (00:07→22:42)
[2020-01-24] MEDS: PROMETHAZINE HCL INJ 25 MG/1 ML VIAL IV PRN ×3 (03:03→17:19)
[2020-01-24] MEDS: 1/2 NORMAL SALINE 1,000 ML IV PRN ×3 (03:49→18:20)
--- NOTE | 2020-01-24 08:32 | PDOC PROGRESS REPORT ---
Subjective Progress Note for:: 01/24/20 Subjective:: Patient still having sickle related pain, seems controlled on current dose of Dilaudid. She tells me that Dr. Roberson was going to discuss her arm issue with Dr. Davila. Reason For Visit: SICKLE CELL CRISIS WITH PAIN Physical Exam Vital Signs: Temp Pulse Resp BP Pulse Ox 98.7 F 73 18 96/46 L 98 01/24/20 00:07 01/24/20 00:07 01/24/20 00:07 01/24/20 00:07 01/24/20 00:07 Intake & Output 01/23/20 01/24/20 01/25/20 06:59 06:59 06:59 Intake Total 4745 4528 Balance 4745 4528 Weight 66.3 kg 65 kg General appearance: PRESENT: no acute distress, well-developed, well-nourished Head exam: PRESENT: atraumatic, normocephalic Eye exam: PRESENT: conjunctiva pink, EOMI, PERRLA. ABSENT: scleral icterus Ear exam: PRESENT: normal external ear exam Mouth exam: PRESENT: moist, tongue midline Neck exam: ABSENT: carotid bruit, JVD, lymphadenopathy, thyromegaly Respiratory exam: PRESENT: clear to auscultation carolyn. ABSENT: rales, rhonchi, wheezes Cardiovascular exam: PRESENT: RRR. ABSENT: diastolic murmur, rubs, systolic murmur Pulses: PRESENT: normal dorsalis pedis pul Vascular exam: PRESENT: normal capillary refill GI/Abdominal exam: PRESENT: normal bowel sounds, soft. ABSENT: distended, guarding, mass, organolmegaly, rebound, tenderness Rectal exam: PRESENT: deferred Extremities exam: PRESENT: full ROM. ABSENT: calf tenderness, clubbing, pedal edema Neurological exam: PRESENT: alert, awake, oriented to person, oriented to place, oriented to time, oriented to situation, CN II-XII grossly intact. ABSENT: motor sensory deficit Psychiatric exam: PRESENT: appropriate affect, normal mood. ABSENT: homicidal ideation, suicidal ideation Skin exam: PRESENT: dry, intact, warm. ABSENT: cyanosis, rash Results Laboratory Results: 01/21/20 06:10 01/21/20 06:10 Impressions: Elbow X-Ray 01/18/20 13:58 IMPRESSION: Chronic radial head dislocation. Degenerative changes. No acute findings. Venous Doppler Study 01/21/20 00:00 IMPRESSION: NO EVIDENCE DVT OR SVT LEFT ARM. Assessment & Plan - Diagnosis (1) Sickle cell pain crisis Is this a current diagnosis for this admission?: Yes Plan: Improved, no changes today. 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 - Time Time Spent with patient: 15-24 minutes
[2020-01-24] MEDS: POLYETHYLENE GLYCOL 3350 POWDER 17 GM/1 PACKET PO SCH (09:36)
[2020-01-24] MEDS: HYDROXYUREA 500 MG CAPSULE PO SCH ×3 (09:51→17:22)
[2020-01-24] MEDS: FOLIC ACID 1 MG TABLET PO SCH (09:51)
[2020-01-24] MEDS: OXYCODONE HCL SR 10 MG TABLET PO SCH ×2 (09:51→22:42)
[2020-01-24] MEDS: GABAPENTIN 300 MG CAPSULE PO SCH ×2 (09:51→22:43)
[2020-01-24] MEDS: CHOLECALCIFEROL (D3) 1,000 UNIT (25 MCG) TABLET PO SCH (09:51)
[2020-01-24] MEDS: MULTIVITAMIN TABLET PO SCH (09:51)
[2020-01-24] MEDS: SENNOSIDES/DOCUSATE 8.6-50 MG 1 EACH TABLET PO SCH ×2 (09:51→17:22)
--- NOTE | 2020-01-24 19:49 | PDOC PROGRESS REPORT ---
Subjective Progress Note for:: 01/24/20 Subjective:: Patient seen by the bedside, Dr. Davila orthopedic recommend left elbow replacement, this to be arranged outpatient Reason For Visit: SICKLE CELL CRISIS WITH PAIN Physical Exam Vital Signs: Temp Pulse Resp BP Pulse Ox 99.4 F 85 16 90/50 L 97 01/24/20 15:16 01/24/20 15:16 01/24/20 15:16 01/24/20 15:16 01/24/20 15:16 Intake & Output 01/23/20 01/24/20 01/25/20 06:59 06:59 06:59 Intake Total 4748 4528 2998 Balance 4745 4528 2993 Weight 66.3 kg 65 kg General appearance: PRESENT: no acute distress Eye exam: PRESENT: PERRLA Respiratory exam: PRESENT: clear to auscultation carolyn Cardiovascular exam: PRESENT: +S1, +S2 GI/Abdominal exam: PRESENT: soft Results Laboratory Results: 01/21/20 06:10 01/21/20 06:10 Impressions: Elbow X-Ray 01/18/20 13:58 IMPRESSION: Chronic radial head dislocation. Degenerative changes. No acute findings. Venous Doppler Study 01/21/20 00:00 IMPRESSION: NO EVIDENCE DVT OR SVT LEFT ARM. Assessment & Plan - Diagnosis (1) Sickle cell anemia with crisis Is this a current diagnosis for this admission?: Yes (2) Opioid dependence Qualifiers: Substance use status: with unspecified opioid-induced disorder Qualified Code(s): F11.29 - Opioid dependence with unspecified opioid-induced disorder Is this a current diagnosis for this admission?: Yes (3) Radial head dislocation Qualifiers: Encounter type: subsequent encounter Laterality: unspecified laterality Qualified Code(s): S53.006D - Unspecified dislocation of unspecified radial head, subsequent encounter Is this a current diagnosis for this admission?: Yes - Time Time Spent with patient: Less than 15 minutes Level of Care: MEDICAL Medications reviewed and adjusted accordingly: Yes Anticipated discharge: Home Anticipated DC Timeframe: within 36 hours
[2020-01-25] MEDS: HYDROMORPHONE HCL INJ/PF 2 MG/ML AMPULE IV PRN ×8 (00:56→22:35)
[2020-01-25] MEDS: PROMETHAZINE HCL INJ 25 MG/1 ML VIAL IV PRN ×4 (00:57→22:35)
[2020-01-25] MEDS: DIPHENHYDRAMINE HCL 50 MG/ML VIAL IV PRN ×4 (00:57→19:27)
[2020-01-25] MEDS: 1/2 NORMAL SALINE 1,000 ML IV PRN ×3 (01:04→17:17)
--- NOTE | 2020-01-25 08:23 | PDOC PROGRESS REPORT ---
Subjective Progress Note for:: 01/25/20 Subjective:: No acute events overnight, I will be decreasing Dilaudid to 1 mg every [address] Ramirez's recommendations. Thereafter, tomorrow we will try and wean it to every 4 hours. After that she should be able to be discharged. Reason For Visit: SICKLE CELL CRISIS WITH PAIN Physical Exam Vital Signs: Temp Pulse Resp BP Pulse Ox 99.1 F 76 16 92/55 L 100 01/24/20 23:47 01/24/20 23:47 01/24/20 23:47 01/24/20 23:47 01/24/20 23:47 Intake & Output 01/24/20 01/25/20 01/26/20 06:59 06:59 06:59 Intake Total 4528 4253 Balance 4528 4253 Weight 65 kg 65.2 kg General appearance: PRESENT: no acute distress, well-developed, well-nourished Head exam: PRESENT: atraumatic, normocephalic Eye exam: PRESENT: conjunctiva pink, EOMI, PERRLA. ABSENT: scleral icterus Ear exam: PRESENT: normal external ear exam Mouth exam: PRESENT: moist, tongue midline Neck exam: ABSENT: carotid bruit, JVD, lymphadenopathy, thyromegaly Respiratory exam: PRESENT: clear to auscultation carolyn. ABSENT: rales, rhonchi, wheezes Cardiovascular exam: PRESENT: RRR. ABSENT: diastolic murmur, rubs, systolic murmur Pulses: PRESENT: normal dorsalis pedis pul Vascular exam: PRESENT: normal capillary refill GI/Abdominal exam: PRESENT: normal bowel sounds, soft. ABSENT: distended, guarding, mass, organolmegaly, rebound, tenderness Rectal exam: PRESENT: deferred Extremities exam: PRESENT: full ROM. ABSENT: calf tenderness, clubbing, pedal edema Neurological exam: PRESENT: alert, awake, oriented to person, oriented to place, oriented to time, oriented to situation, CN II-XII grossly intact. ABSENT: motor sensory deficit Psychiatric exam: PRESENT: appropriate affect, normal mood. ABSENT: homicidal ideation, suicidal ideation Skin exam: PRESENT: dry, intact, warm. ABSENT: cyanosis, rash Results Laboratory Results: 01/21/20 06:10 01/21/20 06:10 Impressions: Elbow X-Ray 01/18/20 13:58 IMPRESSION: Chronic radial head dislocation. Degenerative changes. No acute findings. Venous Doppler Study 01/21/20 00:00 IMPRESSION: NO EVIDENCE DVT OR SVT LEFT ARM. 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
[2020-01-25] MEDS: OXYCODONE HCL SR 10 MG TABLET PO SCH ×2 (10:25→21:50)
[2020-01-25] MEDS: MULTIVITAMIN TABLET PO SCH (10:26)
[2020-01-25] MEDS: FOLIC ACID 1 MG TABLET PO SCH (10:26)
[2020-01-25] MEDS: GABAPENTIN 300 MG CAPSULE PO SCH ×2 (10:26→21:50)
[2020-01-25] MEDS: CHOLECALCIFEROL (D3) 1,000 UNIT (25 MCG) TABLET PO SCH (10:26)
[2020-01-25] MEDS: SENNOSIDES/DOCUSATE 8.6-50 MG 1 EACH TABLET PO SCH ×2 (10:26→17:18)
[2020-01-25] MEDS: POLYETHYLENE GLYCOL 3350 POWDER 17 GM/1 PACKET PO SCH (10:35)
[2020-01-25] MEDS: HYDROXYUREA 500 MG CAPSULE PO SCH ×3 (10:43→17:17)
[2020-01-25] MEDS: [UNRECOGNIZED DRUG - OTHER] SUBCUT SCH (12:19)
[2020-01-25] MEDS: EPOETIN ALFA EPBX SUBCUT SCH (12:19)
[2020-01-25] MEDS: DISPOSABLE SUBCUT SCH (12:19)
--- NOTE | 2020-01-25 18:03 | PDOC PROGRESS REPORT ---
Subjective Progress Note for:: 01/25/20 Subjective:: Patient seen by the bedside, awaiting guiadiance from payroll accounting specialist regarding discharge Reason For Visit: SICKLE CELL CRISIS WITH PAIN Physical Exam Vital Signs: Temp Pulse Resp BP Pulse Ox 99.1 F 85 20 91/47 L 98 01/25/20 15:21 01/25/20 15:21 01/25/20 15:21 01/25/20 15:21 01/25/20 15:21 Intake & Output 01/24/20 01/25/20 01/26/20 06:59 06:59 06:59 Intake Total 4528 4253 2360 Balance 4528 4253 2360 Weight 65 kg 65.2 kg General appearance: PRESENT: no acute distress Eye exam: PRESENT: PERRLA Respiratory exam: PRESENT: clear to auscultation carolyn Cardiovascular exam: PRESENT: +S1, +S2 Results Laboratory Results: 01/21/20 06:10 01/21/20 06:10 Impressions: Elbow X-Ray 01/18/20 13:58 IMPRESSION: Chronic radial head dislocation. Degenerative changes. No acute findings. Venous Doppler Study 01/21/20 00:00 IMPRESSION: NO EVIDENCE DVT OR SVT LEFT ARM. Assessment & Plan - Diagnosis (1) Sickle cell anemia with crisis Is this a current diagnosis for this admission?: Yes (2) Opioid dependence Qualifiers: Substance use status: with unspecified opioid-induced disorder Qualified Code(s): F11.29 - Opioid dependence with unspecified opioid-induced disorder Is this a current diagnosis for this admission?: Yes (3) Radial head dislocation Qualifiers: Encounter type: subsequent encounter Laterality: unspecified laterality Qualified Code(s): S53.006D - Unspecified dislocation of unspecified radial head, subsequent encounter Is this a current diagnosis for this admission?: Yes - Time Time Spent with patient: Less than 15 minutes Level of Care: IMCU Medications reviewed and adjusted accordingly: Yes Anticipated discharge: Home
[2020-01-26] MEDS: 1/2 NORMAL SALINE 1,000 ML IV PRN ×2 (00:09→13:26)
[2020-01-26] MEDS: HYDROMORPHONE HCL INJ/PF 2 MG/ML AMPULE IV PRN ×7 (01:41→21:25)
[2020-01-26] MEDS: DIPHENHYDRAMINE HCL 50 MG/ML VIAL IV PRN ×4 (01:41→21:26)
[2020-01-26] MEDS: PROMETHAZINE HCL INJ 25 MG/1 ML VIAL IV PRN ×3 (04:42→18:01)
[2020-01-26] MEDS: GABAPENTIN 300 MG CAPSULE PO SCH ×2 (10:43→22:00)
[2020-01-26] MEDS: FOLIC ACID 1 MG TABLET PO SCH (10:43)
[2020-01-26] MEDS: CHOLECALCIFEROL (D3) 1,000 UNIT (25 MCG) TABLET PO SCH (10:43)
[2020-01-26] MEDS: MULTIVITAMIN TABLET PO SCH (10:43)
[2020-01-26] MEDS: OXYCODONE HCL SR 10 MG TABLET PO SCH ×2 (10:44→21:25)
[2020-01-26] MEDS: SENNOSIDES/DOCUSATE 8.6-50 MG 1 EACH TABLET PO SCH ×2 (10:44→18:00)
[2020-01-26] MEDS: POLYETHYLENE GLYCOL 3350 POWDER 17 GM/1 PACKET PO SCH (10:44)
[2020-01-26] MEDS: HYDROXYUREA 500 MG CAPSULE PO SCH ×3 (10:47→18:00)
--- NOTE | 2020-01-26 10:50 | PDOC PROGRESS REPORT ---
Subjective Progress Note for:: 01/26/20 Subjective:: No acute events overnight, now complaining of abdominal pain. Reason For Visit: SICKLE CELL CRISIS WITH PAIN Physical Exam Vital Signs: Temp Pulse Resp BP Pulse Ox 99.0 F 75 18 91/56 L 98 01/26/20 08:00 01/26/20 08:00 01/26/20 08:00 01/26/20 08:00 01/26/20 08:00 Intake & Output 01/25/20 01/26/20 01/27/20 06:59 06:59 06:59 Intake Total 4253 4220 Balance 4253 4220 Weight 65.2 kg 66 kg General appearance: PRESENT: no acute distress, well-developed, well-nourished Head exam: PRESENT: atraumatic, normocephalic Eye exam: PRESENT: conjunctiva pink, EOMI, PERRLA. ABSENT: scleral icterus Ear exam: PRESENT: normal external ear exam Mouth exam: PRESENT: moist, tongue midline Neck exam: ABSENT: carotid bruit, JVD, lymphadenopathy, thyromegaly Respiratory exam: PRESENT: clear to auscultation carolyn. ABSENT: rales, rhonchi, wheezes Cardiovascular exam: PRESENT: RRR. ABSENT: diastolic murmur, rubs, systolic murmur Pulses: PRESENT: normal dorsalis pedis pul Vascular exam: PRESENT: normal capillary refill GI/Abdominal exam: PRESENT: normal bowel sounds, soft. ABSENT: distended, guarding, mass, organolmegaly, rebound, tenderness Rectal exam: PRESENT: deferred Extremities exam: PRESENT: full ROM. ABSENT: calf tenderness, clubbing, pedal edema Neurological exam: PRESENT: alert, awake, oriented to person, oriented to place, oriented to time, oriented to situation, CN II-XII grossly intact. ABSENT: motor sensory deficit Psychiatric exam: PRESENT: appropriate affect, normal mood. ABSENT: homicidal ideation, suicidal ideation Skin exam: PRESENT: dry, intact, warm. ABSENT: cyanosis, rash Results Laboratory Results: 01/21/20 06:10 01/21/20 06:10 Impressions: Elbow X-Ray 01/18/20 13:58 IMPRESSION: Chronic radial head dislocation. Degenerative changes. No acute findings. Venous Doppler Study 01/21/20 00:00 IMPRESSION: NO EVIDENCE DVT OR SVT LEFT ARM. Assessment & Plan - Diagnosis (1) Sickle cell pain crisis Is this a current diagnosis for this admission?: Yes Plan: Continue current pain dosing for now. We will try and wean further by tomorrow. 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
--- NOTE | 2020-01-26 11:42 | RADIOLOGY REPORT (SQ) ---
EXAM DESCRIPTION: KUB/ABDOMEN (SINGLE VIEW) IMAGES COMPLETED DATE/TIME: 01/26/2020 11:21 am REASON FOR STUDY: abd pain COMPARISON: None. NUMBER OF VIEWS: One view. TECHNIQUE: Supine radiographic image of the abdomen acquired. LIMITATIONS: None. FINDINGS: BOWEL GAS PATTERN: Gas and fecal material from the cecum to the descending colon. No dila ophelia loops. CALCIFICATIONS: No suspicious calcifications. SOFT TISSUES: No gross mass or suggestion of organomegaly. HARDWARE: None in the abdomen. BONES: No acute fracture. No worrisome bone lesions. OTHER: No other significant finding. IMPRESSION: Mild fecal retention. No obstruction. TECHNICAL DOCUMENTATION: JOB ID: [id number] 2010 [employer]- All Rights Reserved Reading location - IP/workstation name: [email or web address]
--- NOTE | 2020-01-26 12:09 | PDOC PROGRESS REPORT ---
Subjective Progress Note for:: 01/26/20 Subjective:: Patient does complain of some mild abdominal discomfort Patient's x-ray KUB suggest the constipations Patient on the MiraLAX other stool softener and according to the patient she is going every day Patient still has sickle cell crisis No chest pain no short of breath Reason For Visit: SICKLE CELL CRISIS WITH PAIN Physical Exam Vital Signs: Temp Pulse Resp BP Pulse Ox 99.5 F 74 16 93/54 L 99 01/26/20 11:19 01/26/20 11:19 01/26/20 11:19 01/26/20 11:19 01/26/20 11:19 Intake & Output 01/25/20 01/26/20 01/27/20 06:59 06:59 06:59 Intake Total 4253 4220 Balance 4253 4220 Weight 65.2 kg 66 kg General appearance: PRESENT: no acute distress, well-developed, well-nourished Head exam: PRESENT: atraumatic, normocephalic Eye exam: PRESENT: conjunctiva pink, EOMI, PERRLA. ABSENT: scleral icterus Ear exam: PRESENT: normal external ear exam Mouth exam: PRESENT: moist, tongue midline Neck exam: PRESENT: full ROM. ABSENT: carotid bruit, JVD, lymphadenopathy, thyromegaly Respiratory exam: PRESENT: chest wall tenderness Cardiovascular exam: PRESENT: RRR. ABSENT: diastolic murmur, rubs, systolic murmur Pulses: PRESENT: normal dorsalis pedis pul, +2 pedal pulses bilateral Vascular exam: PRESENT: normal capillary refill GI/Abdominal exam: PRESENT: normal bowel sounds, soft. ABSENT: distended, guarding, mass, organolmegaly, rebound, tenderness Rectal exam: PRESENT: deferred Musculoskeletal exam: PRESENT: ambulatory Neurological exam: PRESENT: alert, awake, oriented to person, oriented to place, oriented to time, oriented to situation, CN II-XII grossly intact. ABSENT: motor sensory deficit Psychiatric exam: PRESENT: appropriate affect, normal mood. ABSENT: homicidal ideation, suicidal ideation Skin exam: PRESENT: dry, intact, warm. ABSENT: cyanosis, rash Results Laboratory Results: 01/21/20 06:10 01/21/20 06:10 Impressions: Elbow X-Ray 01/18/20 13:58 IMPRESSION: Chronic radial head dislocation. Degenerative changes. No acute findings. Venous Doppler Study 01/21/20 00:00 IMPRESSION: NO EVIDENCE DVT OR SVT LEFT ARM. KUB X-Ray 01/26/20 00:00 IMPRESSION: Mild fecal retention. No obstruction. 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
[2020-01-26 18:21] LABS: APPEARANCE,URINE CLEAR; BILIRUBIN,URINE NEGATIVE (NEGATIVE); COLOR,URINE YELLOW; GLUCOSE, URINE NEGATIVE (NEGATIVE); KETONES,URINE NEGATIVE (NEGATIVE); LEUKOCYTE ESTERASE,URINE SMALL (NEGATIVE); NITRITE,URINE NEGATIVE (NEGATIVE); PROTEIN,URINE NEGATIVE (NEGATIVE); URINE SPECIFIC GRAVITY 1.008
[2020-01-27] MEDS: HYDROMORPHONE HCL INJ/PF 2 MG/ML AMPULE IV PRN ×8 (00:39→22:43)
[2020-01-27] MEDS: PROMETHAZINE HCL INJ 25 MG/1 ML VIAL IV PRN ×4 (00:40→18:14)
[2020-01-27] MEDS: 1/2 NORMAL SALINE 1,000 ML IV PRN ×3 (00:43→19:37)
[2020-01-27] MEDS: DIPHENHYDRAMINE HCL 50 MG/ML VIAL IV PRN ×3 (03:41→16:30)
[2020-01-27 06:18] LABS: ANION GAP 6 (5-19); BLOOD UREA NITROGEN 10 mg/dL (7-20); CALCIUM 8.3 mg/dL (8.4-10.2); CARBON DIOXIDE 22 mmol/L (22-30); CHLORIDE 108 mmol/L (98-107); GLUCOSE 113 mg/dL (75-110); POTASSIUM 3.9 mmol/L (3.6-5.0)
[2020-01-27] MEDS: GABAPENTIN 300 MG CAPSULE PO SCH ×2 (09:58→21:33)
[2020-01-27] MEDS: OXYCODONE HCL SR 10 MG TABLET PO SCH ×2 (09:58→21:33)
[2020-01-27] MEDS: CHOLECALCIFEROL (D3) 1,000 UNIT (25 MCG) TABLET PO SCH (09:58)
[2020-01-27] MEDS: FOLIC ACID 1 MG TABLET PO SCH (09:58)
[2020-01-27] MEDS: MULTIVITAMIN TABLET PO SCH (09:58)
[2020-01-27] MEDS: SENNOSIDES/DOCUSATE 8.6-50 MG 1 EACH TABLET PO SCH ×2 (09:58→18:14)
[2020-01-27] MEDS: POLYETHYLENE GLYCOL 3350 POWDER 17 GM/1 PACKET PO SCH (09:59)
[2020-01-27] MEDS: HYDROXYUREA 500 MG CAPSULE PO SCH ×3 (10:06→18:14)
--- NOTE | 2020-01-27 11:03 | PDOC PROGRESS REPORT ---
Subjective Progress Note for:: 01/27/20 Subjective:: Patient x-ray KUB is all stable Patient urinalysis mild gastritis Patient still with some abdominal cramps We will send the urine for the culture Started on p.o. Keflex until the culture is back Continues stool softener Reason For Visit: SICKLE CELL CRISIS WITH PAIN Physical Exam Vital Signs: Temp Pulse Resp BP Pulse Ox 99.1 F 78 17 94/58 L 100 01/27/20 08:00 01/27/20 08:00 01/27/20 08:00 01/27/20 08:00 01/27/20 08:00 Intake & Output 01/26/20 01/27/20 01/28/20 06:59 06:59 06:59 Intake Total 4220 3572 1000 Output Total 2500 Balance 4220 1072 1000 Weight 66 kg 64.6 kg General appearance: PRESENT: no acute distress, well-developed, well-nourished Head exam: PRESENT: atraumatic, normocephalic Eye exam: PRESENT: conjunctiva pink, EOMI, PERRLA. ABSENT: scleral icterus Ear exam: PRESENT: normal external ear exam Mouth exam: PRESENT: moist, tongue midline Neck exam: PRESENT: full ROM. ABSENT: carotid bruit, JVD, lymphadenopathy, thyromegaly Respiratory exam: PRESENT: clear to auscultation carolyn Cardiovascular exam: PRESENT: RRR. ABSENT: diastolic murmur, rubs, systolic murmur Vascular exam: PRESENT: normal capillary refill GI/Abdominal exam: PRESENT: normal bowel sounds, soft. ABSENT: distended, guarding, mass, organolmegaly, rebound, tenderness Rectal exam: PRESENT: deferred Musculoskeletal exam: PRESENT: ambulatory Neurological exam: PRESENT: alert, awake, oriented to person, oriented to place, oriented to time, oriented to situation, CN II-XII grossly intact. ABSENT: motor sensory deficit Psychiatric exam: PRESENT: appropriate affect, normal mood. ABSENT: homicidal ideation, suicidal ideation Skin exam: PRESENT: dry, intact, warm. ABSENT: cyanosis, rash Results Laboratory Results: 01/21/20 06:10 01/27/20 04:16 01/26/20 01/27/20 17:55 04:16 Sodium 136.1 L Potassium 3.9 Chloride 108 H Carbon Dioxide 22 Anion Gap 6 BUN 10 Creatinine 0.58 Est GFR ( Amer) > 60 Glucose 113 H Calcium 8.3 L Urine Color YELLOW Urine Appearance CLEAR Urine pH 7.0 Ur Specific Remer 1.008 Urine Protein NEGATIVE Urine Glucose (UA) NEGATIVE Urine Ketones NEGATIVE Urine Blood NEGATIVE Urine Nitrite NEGATIVE Ur Leukocyte Esterase SMALL H Urine WBC (Auto) 10 Urine RBC (Auto) 1 Impressions: Elbow X-Ray 01/18/20 13:58 IMPRESSION: Chronic radial head dislocation. Degenerative changes. No acute findings. Venous Doppler Study 01/21/20 00:00 IMPRESSION: NO EVIDENCE DVT OR SVT LEFT ARM. KUB X-Ray 01/26/20 00:00 IMPRESSION: Mild fecal retention. No obstruction. 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
[2020-01-27] MEDS: CEPHALEXIN 500 MG CAPSULE PO SCH ×2 (12:31→21:34)
[2020-01-28] MEDS: DIPHENHYDRAMINE HCL 50 MG/ML VIAL IV PRN ×3 (01:49→15:18)
[2020-01-28] MEDS: HYDROMORPHONE HCL INJ/PF 2 MG/ML AMPULE IV PRN ×5 (01:49→15:17)
[2020-01-28] MEDS: PROMETHAZINE HCL INJ 25 MG/1 ML VIAL IV PRN ×2 (04:57→11:53)
--- NOTE | 2020-01-28 08:02 | PDOC PROGRESS REPORT ---
Subjective Progress Note for:: 01/28/20 Subjective:: Patient states that she would like to be discharged today. She also asks for something for her "nerves" because she gets so upset with her daughter. Reason For Visit: SICKLE CELL CRISIS WITH PAIN Physical Exam Vital Signs: Temp Pulse Resp BP Pulse Ox 99.1 F 83 18 90/52 L 96 01/28/20 01:33 01/28/20 01:33 01/28/20 01:33 01/28/20 01:33 01/28/20 01:33 Intake & Output 01/27/20 01/28/20 01/29/20 06:59 06:59 06:59 Intake Total 3572 3232 Output Total 2500 600 Balance 1072 2632 Weight 64.6 kg 64.6 kg General appearance: PRESENT: well-developed, well-nourished Head exam: PRESENT: normocephalic Respiratory exam: PRESENT: unlabored Extremities exam: ABSENT: pedal edema Neurological exam: PRESENT: alert, awake Psychiatric exam: PRESENT: appropriate affect Skin exam: PRESENT: normal color Results Laboratory Results: 01/21/20 06:10 01/27/20 04:16 Impressions: Elbow X-Ray 01/18/20 13:58 IMPRESSION: Chronic radial head dislocation. Degenerative changes. No acute findings. Venous Doppler Study 01/21/20 00:00 IMPRESSION: NO EVIDENCE DVT OR SVT LEFT ARM. KUB X-Ray 01/26/20 00:00 IMPRESSION: Mild fecal retention. No obstruction. Assessment & Plan - Diagnosis (1) Sickle cell pain crisis Is this a current diagnosis for this admission?: Yes Plan: She has been weaned down for her IV dilaudid. She is stable for discharge today. I will see her as outpatient and will arrange all narcotic Rx. We discussed anxiety medication, but I would feel better having psychiatry help with this. I will try to arrange as outpatient. - Time Time Spent with patient: Less than 15 minutes
--- NOTE | 2020-01-28 08:10 | PDOC DISCHARGE SUMMARY ---
Impression - Admit/DC Date/PCP Admission Date/Primary Care Provider: 01/12/20 00:13 HOMA BARRAZA MD Discharge Date: 01/28/20 - Discharge Diagnosis (1) Sickle cell anemia with crisis Is this a current diagnosis for this admission?: Yes (2) Opioid dependence Is this a current diagnosis for this admission?: Yes (3) Radial head dislocation Is this a current diagnosis for this admission?: Yes - Additional Information Resuscitation Status: Full Code Referrals: SAVANNA AWAN MD [ACTIVE STAFF] - 02/06/20 2:00 pm HOMA BARRAZA MD [Primary Care Provider] - 02/01/20 3:00 pm Home Medications: Deferasirox [Jadenu] 360 mg PO DAILY 08/13/19 Epoetin Federico [Procrit Inj 20,000 Unit/1 ml Vial (Renal)] 60,000 unit IJ FR@1000 08/13/19 Folic Acid 1 mg PO DAILY 08/13/19 Gabapentin [Neurontin 300 mg Capsule] 300 mg PO Q12 08/13/19 Hydroxyurea [Hydrea 500 mg Capsule] 500 mg PO TID 08/13/19 Oxycodone HCl [Oxy-Ir 5 mg Tablet] 10 mg PO Q6HP PRN 08/13/19 Cholecalciferol (Vitamin D3) [Vitamin D3 1000 Unit Tablet] 5,000 unit PO DAILY 11/29/19 Oxycodone Myristate [Xtampza ER] 27 mg PO Q12 11/29/19 Ergocalciferol (Vitamin D2) [Drisdol 50,000 unit (1.25MG) Capsule] 50,000 unit PO WE@1000 01/12/20 Multivitamin [Tab-A-Yosvany (Multiple Vitamin) Tablet] 1 tab PO DAILY 01/12/20 History of Present Illiness History of Present Illness: WILLIE ALAN is a 50 year old female patient owith repeated admission for sickle cell disease pain crises. Patient presented to the ED for similar multiple joints aches and pain, particularly in her left wrist joint. she denied any fall or trauma. she was managed with IV Dilaudid and hydration in the ED but her pain persist necessitating admission for further pain management. Her morbidities are as listed below. Hospital Course Hospital Course: Patient was admitted for the management of sickle cell pain crisis, opioid dependence, she was seen in consultation by Dr. Gambino, she manage her bone pain crisis with Dilaudid. She also was seen by orthopedic Dr. Davila, she has chronic dislocation of the left elbow, joint replacement therapy was recommended, she will be refer to Dr. Davila outpatient Physical Exam Vital Signs: Temp Pulse Resp BP Pulse Ox 99.1 F 83 18 90/52 L 96 01/28/20 01:33 01/28/20 01:33 01/28/20 01:33 01/28/20 01:33 01/28/20 01:33 Intake & Output 01/27/20 01/28/20 01/29/20 06:59 06:59 06:59 Intake Total 3572 3232 Output Total 2500 600 Balance 1072 2632 Weight 64.6 kg 64.6 kg General appearance: PRESENT: no acute distress Eye exam: PRESENT: PERRLA Cardiovascular exam: PRESENT: +S1, +S2 Neurological exam: PRESENT: alert Results Laboratory Results: WBC 3.1 10^3/uL (4.0-10.5) L 01/21/20 06:10 RBC 1.18 10^6/uL (3.72-5.28) L 01/21/20 06:10 Hgb 5.5 g/dL (12.0-15.5) L 01/21/20 06:10 Hct 15.9 % (36.0-47.0) L 01/21/20 06:10 MCV 135 fl (80-97) H 01/21/20 06:10 MCH 46.9 pg (27.0-33.4) H 01/21/20 06:10 MCHC 34.9 g/dL (32.0-36.0) 01/21/20 06:10 RDW 17.3 % (11.5-14.0) H 01/21/20 06:10 Plt Count 138 10^3/uL (150-450) L 01/21/20 06:10 Lymph % (Auto) Not Reportable 01/21/20 06:10 [place] % (Auto) Not Reportable 01/21/20 06:10 Eos % (Auto) Not Reportable 01/21/20 06:10 Baso % (Auto) Not Reportable 01/21/20 06:10 Reticulocyte # 0.053 10^6/uL (0.028-0.122) 01/11/20 21:49 Absolute Neuts (auto) Not Reportable 01/21/20 06:10 Absolute Lymphs (auto) Not Reportable 01/21/20 06:10 Absolute Monos (auto) Not Reportable 01/21/20 06:10 Absolute Eos (auto) Not Reportable 01/21/20 06:10 Absolute Basos (auto) Not Reportable 01/21/20 06:10 Total Counted 100 01/21/20 06:10 Seg Neutrophils % Not Reportable 01/21/20 06:10 Seg Neuts % (Manual) 31 % (42-78) L 01/21/20 06:10 Lymphocytes % (Manual) 61 % (13-45) H 01/21/20 06:10 Atypical Lymphs % 1 % (0) 01/21/20 06:10 Monocytes % (Manual) 3 % (3-13) 01/21/20 06:10 Eosinophils % (Manual) 3 % (0-6) 01/21/20 06:10 Basophils % (Manual) 1 % (0-2) 01/21/20 06:10 Metamyelocytes % 1 % (0-1) 01/14/20 06:30 Abs Neuts (Manual) 1.0 10^3/uL (1.7-8.2) L 01/21/20 06:10 Abs Lymphs (Manual) 1.9 10^3/uL (0.5-4.7) 01/21/20 06:10 Abs Monocytes (Manual) 0.1 10^3/uL (0.1-1.4) 01/21/20 06:10 Absolute Eos (Manual) 0.1 10^3/uL (0.0-0.6) 01/21/20 06:10 Abs Basophils (Manual) 0.0 10^3/uL (0.0-0.2) 01/21/20 06:10 Reticulocyte # (manual) Cancelled 01/11/20 20:53 Nucleated RBCs 100 /100 WBC (0) 01/21/20 06:10 Platelet Estimate Cancelled 01/11/20 20:53 Clumped Platelets PRESENT 01/21/20 06:10 Platelet Comment DECREASED 01/21/20 06:10 Polychromasia SLIGHT 01/21/20 06:10 Poikilocytosis 2+ 01/21/20 06:10 Anisocytosis 1+ 01/21/20 06:10 Macrocytosis 4+ 01/21/20 06:10 Sickle Cells SLIGHT 01/21/20 06:10 Target Cells 2+ 01/21/20 06:10 Ovalocytes 1+ 01/21/20 06:10 Schistocytes SLIGHT 01/11/20 21:49 Retic Count Cancelled 01/11/20 20:53 Retic Count (manual) Cancelled 01/11/20 20:53 Retic Count (auto) 3.35 % (0.66-2.85) H 01/11/20 21:49 Absolute Retic Cancelled 01/11/20 20:53 Sodium 136.1 mmol/L (137-145) L 01/27/20 04:16 Potassium 3.9 mmol/L (3.6-5.0) 01/27/20 04:16 Chloride 108 mmol/L (98-107) H 01/27/20 04:16 Carbon Dioxide 22 mmol/L (22-30) 01/27/20 04:16 Anion Gap 6 (5-19) 01/27/20 04:16 BUN 10 mg/dL (7-20) 01/27/20 04:16 Creatinine 0.58 mg/dL (0.52-1.25) 01/27/20 04:16 Est GFR ( Amer) > 60 (>60) 01/27/20 04:16 Est GFR (MDRD) Non-Af > 60 (>60) 01/27/20 04:16 Glucose 113 mg/dL (75-110) H 01/27/20 04:16 Calcium 8.3 mg/dL (8.4-10.2) L 01/27/20 04:16 Total Bilirubin 2.1 mg/dL (0.2-1.3) H 01/21/20 06:10 Direct Bilirubin 0.2 mg/dL (0.0-0.4) 01/21/20 06:10 Neonat Total Bilirubin Not Reportable 01/21/20 06:10 Neonat Direct Bilirubin Not Reportable 01/21/20 06:10 Neonat Indirect Bili Not Reportable 01/21/20 06:10 AST 49 U/L (14-36) H 01/21/20 06:10 ALT 30 U/L (<35) 01/21/20 06:10 Alkaline Phosphatase 120 U/L (38-126) 01/21/20 06:10 Lactate Dehydrogenase 284 U/L (120-246) H 01/21/20 06:10 Total Protein 6.4 g/dL (6.3-8.2) 01/21/20 06:10 Albumin 3.5 g/dL (3.5-5.0) 01/21/20 06:10 Urine Color YELLOW 01/26/20 17:55 Urine Appearance CLEAR 01/26/20 17:55 Urine pH 7.0 (5.0-9.0) 01/26/20 17:55 Ur Specific [place] 1.008 01/26/20 17:55 Urine Protein NEGATIVE mg/dL (NEGATIVE) 01/26/20 17:55 Urine Glucose (UA) NEGATIVE mg/dL (NEGATIVE) 01/26/20 17:55 Urine Ketones NEGATIVE mg/dL (NEGATIVE) 01/26/20 17:55 Urine Blood NEGATIVE (NEGATIVE) 01/26/20 17:55 Urine Nitrite NEGATIVE (NEGATIVE) 01/26/20 17:55 Urine Bilirubin NEGATIVE (NEGATIVE) 01/26/20 17:55 Urine Urobilinogen 4.0 mg/dL (<2.0) H 01/26/20 17:55 Ur Leukocyte Esterase SMALL (NEGATIVE) H 01/26/20 17:55 Urine WBC (Auto) 10 /HPF 01/26/20 17:55 Urine RBC (Auto) 1 /HPF 01/26/20 17:55 Squamous Epi Cells Auto <1 /HPF 01/26/20 17:55 Urine Mucus (Auto) RARE /LPF 01/26/20 17:55 Urine Ascorbic Acid NEGATIVE (NEGATIVE) 01/26/20 17:55 Slides for Path Review Cancelled 01/11/20 20:53 Impressions: Elbow X-Ray 01/18/20 13:58 IMPRESSION: Chronic radial head dislocation. Degenerative changes. No acute findings. Venous Doppler Study 01/21/20 00:00 IMPRESSION: NO EVIDENCE DVT OR SVT LEFT ARM. KUB X-Ray 01/26/20 00:00 IMPRESSION: Mild fecal retention. No obstruction. Stroke Is this a Stroke Patient?: No Acute Heart Failure - Is this a Heart Failure Patient?: No
[2020-01-28] MEDS: POLYETHYLENE GLYCOL 3350 POWDER 17 GM/1 PACKET PO SCH (10:07)
[2020-01-28] MEDS: GABAPENTIN 300 MG CAPSULE PO SCH (10:08)
[2020-01-28] MEDS: CHOLECALCIFEROL (D3) 1,000 UNIT (25 MCG) TABLET PO SCH (10:08)
[2020-01-28] MEDS: FOLIC ACID 1 MG TABLET PO SCH (10:08)
[2020-01-28] MEDS: HYDROXYUREA 500 MG CAPSULE PO SCH ×2 (10:08→14:21)
[2020-01-28] MEDS: MULTIVITAMIN TABLET PO SCH (10:08)
[2020-01-28] MEDS: SENNOSIDES/DOCUSATE 8.6-50 MG 1 EACH TABLET PO SCH (10:08)
[2020-01-28] MEDS: CEPHALEXIN 500 MG CAPSULE PO SCH (10:08)
[2020-01-28 12:28] VITALS: BP 93/50
== END 2020-01-28 16:16 | disposition home or self-care (01) | DRG 812 ==
LOC: ER 19:37 → EH 01-12 00:13 → 4S 01-12 02:08
PROVIDERS: ADMIT Internal Medicine; ATTEND Internal Medicine
DX: D57.00 Hb-SS disease with crisis, unspecified (principal); F11.20 Opioid dependence, uncomplicated; E83.111 Hemochromatosis due to repeated red blood cell transfusions; M24.422 Recurrent dislocation, left elbow; M19.022 Primary osteoarthritis, left elbow; R01.1 Cardiac murmur, unspecified; F41.9 Anxiety disorder, unspecified; G89.4 Chronic pain syndrome; R10.84 Generalized abdominal pain; Z86.14 Personal history of Methicillin resistant Staphylococcus aureus infection
CPT/HCPCS: 36415; 36591; 74018; 80048; 80053; 81001; 83615; 85025; 85045; 87086; 87088; 87186; 93971; 96361; 96374; 96375; 96376; 99284; J1170; J1200; J1642; J2550; J3411; J3475; J3480; J3490; J7030; Q5106

== ENCOUNTER → 2020-02-28 | Outpatient (CLI) | payer MEDICAID ==
--- NOTE | 2020-02-28 11:47 | WOMENS IMAGING REPORT ---
EXAM DESCRIPTION: 3D SCREENING MAMMO BILAT IMAGES COMPLETED DATE/TIME: 02/28/2020 11:26 am REASON FOR STUDY: Z12.31 ENCNTR SCREEN MAMMOGRAM FOR MALIGNANT NEOPLASM OF BREAST Z12.31 ENCNTR SCR EEN MAMMOGRAM FOR MALIGNANT NEOPLASM OF SIMON M81.0 AGE-RELATED OSTEOPOROSIS W/O CURRENT PATHOLOGICAL FRAC N95.9 UNSPECIFIED MENOPAUSAL AND PERIMENOPAUSAL DISORDER COMPARISON: 2013 EXAM PARAMETERS: Views: Standard craniocaudal and mediolateral oblique views of each breast recorded using digital acquisition and breast tomosynthesis. Read with the assistance of CAD. .[employer] - Multimedia Designer Version 9.2 LIMITATIONS: None. FINDINGS: No suspicious masses, suspicious calcifications or architectural distortion. No areas of c oncern. IMPRESSION: NEGATIVE MAMMOGRAM. BIRADS 1. BREAST DENSITY: c. The breasts are heterogeneously dense, which may obscure small masses. BIRAD: ASSESSMENT: 1 NEGATIVE RECOMMENDATION: ROUTINE SCREENING COMMENT: The patient has been notified of the results by letter per [place] requirements. Additional no tification policies are in place for contacting patient with suspicious or incomplete findings. Quality ID #[id number]: The [employer] recommends an annual screening mammogram for women aged 40 years or over. This facility utilizes a reminder system to ensure that all patients receive reminder letters, and/or direct phone calls for appointments. This includes reminders for routine scr eening mammograms, diagnostic mammograms, or other Breast Imaging Interventions when appropriate. Th is patient will be placed in the appropriate reminder system. TECHNICAL DOCUMENTATION: FINDING NUMBER: (1) ASSESSMENT: (1) JOB ID: [id number] 2010 [employer]- All Rights Reserved Reading location - IP/workstation name: [email or web address]
--- NOTE | 2020-02-28 11:59 | WOMENS IMAGING REPORT ---
EXAM DESCRIPTION: BONE DENSITY HIP/SPINE IMAGES COMPLETED DATE/TIME: 02/28/2020 11:26 am REASON FOR STUDY: M81.0 AGE-RELATED OSTEOPOROSIS W/O CURRENT PATHOLOGICAL FRACTURE Z12.31 ENCNTR SC REEN MAMMOGRAM FOR MALIGNANT NEOPLASM OF SIMON M81.0 AGE-RELATED OSTEOPOROSIS W/O CURRENT PATHOLOGICAL FRAC N95.9 UNSPECIFIED MENOPAUSAL AND PERIMENOPAUSAL DISORDER COMPARISON: 2009 TECHNIQUE: Dual-Energy X-ray Absorptiometry (DEXA) of the AP Spine and Hip. LIMITATIONS: None. FINDINGS: LUMBAR SPINE: The bone mineral density (BMD) measured from L1-L4 in the AP projection correlates with a T-score of -4.4, which is osteoporosis as defined by the World Health Organization. BMD Change vs Baseline: N/A HIP: The bone mineral density (BMD) measured in the left hip correlates with a T-score of -2.7, which is o steoporosis as defined by the World Health Organization. BMD Change vs Baseline: N/A 10 year Fracture Risk Assessment: Major Osteoporotic Fracture: Not available. Hip Fracture: Not available. IMPRESSION: 1. LUMBAR SPINE WHO CLASSIFICATION: OSTEOPOROSIS. 2. HIP WHO CLASSIFICATION: OSTEOPOROSIS. OVERALL ASSESSMENT: WHO CLASSIFICATION: OSTEOPOROSIS. COMMENT: The World Health Organization defines low BMD as follows: T-score: Normal: At or above -1.0 Osteopenia: Between -1.0 and -2.5 Osteoporosis: At or below -2.5 without fractures Established osteoporosis: At or below -2.5 with fractures In general, you may wish to consider: Diagnosis Treatment Follow-up DEXA Normal BMD Prevention 2-3 years Osteopenia Prevention/Therapy 1-2 years Osteoporosis Therapy Yearly TECHNICAL DOCUMENTATION: JOB ID: [id number] 2010 [email or web address]- All Rights Reserved Reading location - IP/workstation name: [email or web address]
== END ==
LOC: WI 10:48
PROVIDERS: ATTEND Internal Medicine Hematology & Oncology
DX: Z12.31 Encounter for screening mammogram for malignant neoplasm of breast (principal); M81.0 Age-related osteoporosis without current pathological fracture; N95.9 Unspecified menopausal and perimenopausal disorder
CPT/HCPCS: 77063; 77067; 77080

== ENCOUNTER 2020-03-07 03:49 | Emergency (ER) | payer MEDICAID ==
[2020-03-07] MEDS ORDERED: HYDROMORPHONE HCL INJ/PF 2 MG/ML AMPULE IV ONE ×4 (05:35→12:46)
[2020-03-07] MEDS ORDERED: DIPHENHYDRAMINE HCL 50 MG/ML VIAL IV ONE ×3 (05:36→12:47)
--- NOTE | 2020-03-07 05:38 | ER Document Report ---
ED Medical Screen (RME) - General Chief Complaint: Sickle Cell Crisis Stated Complaint: MUSCLE PAIN,CHEST PAIN,DIFFICULTY BREATHING Time Seen by Provider: 03/07/20 05:34 Primary Care Provider: SAVANNA RAMIREZ MD [Primary Care Provider] - Follow up as needed Notes: 50-year-old female with a history of sickle cell disease, chief complaint of developing pain over the past 2 days mainly in her arms, legs, lower back, and chest. She reports shortness of breath from the pain but denies cough, fever, vomiting, abdominal pain. Follows with local hematology Dr. Ramirez. Patient also reports nonhealing wound over the left lateral ankle which has started to become tender. - Related Data Allergies/Adverse Reactions: doxycycline [Doxycycline] Allergy (Severe, Verified 01/11/20 20:15) Past Medical History - Social History Frequency of alcohol use: None Drug Abuse: None - Past Medical History Cardiac Medical History: Reports: Hx Heart Murmur Denies: Hx Atrial Fibrillation, Hx Congestive Heart Failure, Hx Coronary Artery Disease, Hx Heart Attack, Hx Hypercholesterolemia, Hx Hypertension, Hx Peripheral Vascular Disease Pulmonary Medical History: Denies: Hx Tuberculosis Neurological Medical History: Denies: Hx Seizures Renal/ Medical History: Reports: Hx Ovarian Cysts. 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 Denies: Hx HIV Past Surgical History: Reports: Hx Appendectomy, Hx Section, Hx Ch olecystectomy, Hx Orthopedic Surgery - R knee, Hx Tonsillectomy. Denies: Hx Bowel Surgery, Hx Coronary Artery Bypass Graft, Hx Gastric Bypass Surgery, Hx Herniorrhaphy, Hx Mastectomy, Hx Pacemaker, Hx Tubal Ligation - Immunizations Immunizations up to date: Yes Hx Diphtheria, Pertussis, Tetanus Vaccination: Yes Physical Exam - Vital signs Vitals: Temp Pulse Resp BP Pulse Ox 98.5 F 89 18 122/74 98 03/07/20 04:03 03/07/20 04:03 03/07/20 04:03 03/07/20 04:03 03/07/20 04:03 - Respiratory Respiratory status: No respiratory distress Breath sounds: Normal. No: Decreased air movement - Cardiovascular Rhythm: Regular. No: Tachycardia Heart sounds: Normal auscultation, S1 appreciated, S2 appreciated Course - Re-evaluation Re-evalutation: I have greeted and performed a rapid initial assessment of this patient. A comprehensive ED assessment and evaluation of the patient, analysis of test results and completion of the medical decision making process will be conducted by additional ED providers. - Vital Signs Vital signs: Temp Pulse Resp BP Pulse Ox 98.5 F 89 18 122/74 98 03/07/20 04:03 03/07/20 04:03 03/07/20 04:03 03/07/20 04:03 03/07/20 04:03 Doctor's Discharge - Discharge Referrals: SAVANNA RAMIREZ MD [Primary Care Provider] - Follow up as needed
--- NOTE | 2020-03-07 06:14 | RADIOLOGY REPORT (SQ) ---
EXAM DESCRIPTION: XR CHEST 1 VIEW COMPLETED DATE/TME: 03/07/2020 05:35 CLINICAL HISTORY: 50 years, Female, sickle cell, chest pain COMPARISON: 11/29/2019 chest NUMBER OF VIEWS: 1 TECHNIQUE: Portable chest LIMITATIONS: None. FINDINGS: Heart size is normal. Osteopenia. [id number]-[id number] catheter in place. No pneumothorax. Calcified mediastinal lymph nodes. Lungs are otherwise clear IMPRESSION: No acute cardiopulmonary process copyright 2011 [employer]- All Rights Reserved
[2020-03-07 06:42] LABS: ALBUMIN 4.7 g/dL (3.5-5.0); ALKALINE PHOSPHATASE 157 U/L (38-126); ANION GAP 10 (5-19); ASPARTATE AMINO TRANSFERASE 48 U/L (14-36); BILIRUBIN,DIRECT 0.8 mg/dL (0.0-0.4); BILIRUBIN,TOTAL 4.4 mg/dL (0.2-1.3); BLOOD UREA NITROGEN 8 mg/dL (7-20); CALCIUM 9.5 mg/dL (8.4-10.2); CARBON DIOXIDE 23 mmol/L (22-30); CHLORIDE 108 mmol/L (98-107); GLUCOSE 122 mg/dL (75-110); POTASSIUM 3.8 mmol/L (3.6-5.0); TOTAL PROTEIN 8.1 g/dL (6.3-8.2)
[2020-03-07 06:45] LABS: ABSOLUTE RETICS # 0.069 10^6/uL (0.028-0.122); HEMATOCRIT 22.3 % (36.0-47.0); MEAN CORPUSCULAR HGB CONC 35.9 g/dL (32.0-36.0); MEAN CORPUSCULAR VOLUME 131 fl (80-97); PLATELET COUNT 237 10^3/uL (150-450); RED CELL DISTRIBUTION WIDTH 15.2 % (11.5-14.0); RETICULOCYTE COUNT (AUTO) 4.08 % (0.66-2.85); WHITE BLOOD COUNT 4.1 10^3/uL (4.0-10.5)
[2020-03-07 06:58] LABS: ABSOLUTE LYMPHOCYTES# (MANUAL) 1.5 10^3/uL (0.5-4.7); ABSOLUTE MONOCYTES # (MANUAL) 0.2 10^3/uL (0.1-1.4); BASOPHILS % (MANUAL) 0 % (0-2); EOSINOPHILS % (MANUAL) 0 % (0-6); LYMPHOCYTES % (MANUAL) 36 % (13-45); MONOCYTES % (MANUAL) 6 % (3-13); NUCLEATED RED BLOOD CELLS 5 /100 WBC (0); SEGMENTED NEUTROPHILS % (MAN) 58 % (42-78); TOTAL CELLS COUNTED 100
[2020-03-07 07:00] LABS: POLYCHROMASIA 1+
[2020-03-07 07:01] LABS: ANISOCYTOSIS 1+; HOWELL-JOLLY BODIES PRESENT; OVALOCYTES SLIGHT; PAPPENHEIMER BODIES PRESENT; PLATELET COMMENT ADEQUATE; PLATELET LARGE PRESENT; POIKILOCYTOSIS 1+; SCHISTOCYTES SLIGHT; SICKLE RED CELLS SLIGHT; TARGET CELLS SLIGHT; TEAR DROP CELLS SLIGHT
--- NOTE | 2020-03-07 07:19 | EKG REPORT ---
SEVERITY:- NORMAL ECG - SINUS RHYTHM : Confirmed by: Keyla Alexander 07-Mar-2020 07:18:41
[2020-03-07] MEDS ORDERED: ONDANSETRON HCL INJ/PF 4 MG/2 ML SDV IV ONE ×2 (07:44→10:11)
[2020-03-07] MEDS ORDERED: NORMAL SALINE 1000 ML 1,000 ML IV ONE ×2 (07:51→10:11)
--- NOTE | 2020-03-07 08:51 | RADIOLOGY REPORT (SQ) ---
EXAM DESCRIPTION: ANKLE LEFT COMPLETE IMAGES COMPLETED DATE/TIME: 03/07/2020 8:04 am REASON FOR STUDY: lateral tenderness/swelling/minor wound COMPARISON: None. NUMBER OF VIEWS: Three views. TECHNIQUE: AP, lateral, and oblique radiographic images acquired of the left ankle. LIMITATIONS: None. FINDINGS: MINERALIZATION: Osteopenia. BONES: No acute fracture or dislocation. The ankle mortise and talar dome are intact. JOINTS: No effusion. SOFT TISSUES: No soft tissue swelling. OTHER: No other finding. IMPRESSION: No acute osseous abnormality of the left ankle. TECHNICAL DOCUMENTATION: JOB ID: [id number] 2010 [employer]- All Rights Reserved Reading location - IP/workstation name: [email or web address]
--- NOTE | 2020-03-07 13:45 | ER Document Report ---
Entered by MICHELE MADDOX SCRIBE 03/07/20 0740 Acting as scribe for:BRANT RODAS MD ED General - General Chief Complaint: Sickle Cell Crisis Stated Complaint: MUSCLE PAIN,CHEST PAIN,DIFFICULTY BREATHING Time Seen by Provider: 03/07/20 05:34 Primary Care Provider: SAVANNA AWAN MD [Primary Care Provider] - Follow up as needed Information source: Patient Notes: This 50 year old female patient presents to the emergency department today with complaints of a possible sickle cell crisis. Patient also reports a open sore on her left ankle and pain for the past x2 days. Patient reports some drainage from the wound and has not seen her PCP for this. Patient reports chills, general weakness, and nausea. Denies any cough, throat pain, or vomiting. Patient states she takes x4 meds for her sickle cell anemia and is med compliant. - Related Data Allergies/Adverse Reactions: doxycycline [Doxycycline] Allergy (Severe, Verified 01/11/20 20:15) Past Medical History - General Information source: Patient - Social History Smoking Status: Never Smoker Cigarette use (# per day): No Frequency of alcohol use: None Drug Abuse: None Family History: Reviewed & Not Pertinent - Past Medical History Cardiac Medical History: Reports: Hx Heart Murmur Renal/ Medical History: Reports: Hx Ovarian Cysts Skin Medical History: Reports Hx MRSA Psychiatric Medical History: Reports: Hx Anxiety Infectious Medical History: Reports: Hx MRSA - History of MRSA osteomyelitis Past Surgical History: Reports: Hx Appendectomy, Hx Section, Hx Cholecystectomy, Hx Orthopedic Surgery - R knee, Hx Tonsillectomy - Immunizations Immunizations up to date: Yes Hx Diphtheria, Pertussis, Tetanus Vaccination: Yes Hx Pneumococcal Vaccination: 03/20/14 Review of Systems - Review of Systems Constitutional: See HPI, Chills, Weakness EENT: See HPI. denies: Throat pain Cardiovascular: No symptoms reported Respiratory: See HPI. denies: Cough Gastrointestinal: See HPI, Nausea. denies: Vomiting Genitourinary: No symptoms reported Female Genitourinary: No symptoms reported Musculoskeletal: No symptoms reported Skin: See HPI, Other - wound left ankle Hematologic/Lymphatic: No symptoms reported Neurological/Psychological: No symptoms reported -: Yes All other systems reviewed and negative Physical Exam - Vital signs Vitals: Temp Pulse Resp BP Pulse Ox 98.5 F 89 18 122/74 98 09/18/20 04:03 03/07/20 04:03 03/07/20 04:03 03/07/20 04:03 03/07/20 04:03 - General General appearance: Appears well, Alert - HEENT Head: Normocephalic, Atraumatic Eyes: Normal Pupils: PERRL - Respiratory Respiratory status: No respiratory distress Chest status: Nontender Breath sounds: Normal Chest palpation: Normal Notes: Portacath present in the left upper chest wall. - Cardiovascular Rhythm: Regular Heart sounds: Normal auscultation, S1 appreciated, S2 appreciated Murmur: No - Abdominal Inspection: Normal Distension: No distension Bowel sounds: Normal Tenderness: Nontender - Extremities General upper extremity: Normal inspection. No: Edema Notes: Soft tissue swelling of the lateral left ankle. Open wound, 4 inches with clear fluid draining. - Neurological Neuro grossly intact: Yes Cognition: Normal Orientation: AAOx4 [place] Coma Scale Eye Opening: Spontaneous [place] Coma Scale Verbal: Oriented [place] Coma Scale Motor: Obeys Commands [place] Coma Scale Total: 15 Speech: Normal - Psychological Associated symptoms: Normal affect, Normal mood - Skin Skin Temperature: Warm Skin Moisture: Dry Skin Color: Normal Course - Re-evaluation Re-evalutation: 03/07/20 13:33 Case earlier today was discussed with Dr. Rawls at patient's request. After discussion with Dr.Syed Dr. Rawls shared her medication regimen that she has for this patient with sickle cell crisis pain. So we followed her regimen of taking every hour 2 mg IV Dilaudid and a total of 2 L of IV fluids and oxygen therapy. As close as we could come to that formally we follow those rules and patient still at the end of the course since he was still in pain. She states her doctor is Dr. Barraza. Called Dr. Barraza and he stated that he was not admitting patient to the hospital and that I should write her prescription for Dilaudid and send her home. Shared this information with patient and and tell her that Dr. Sailaja Day her judy gerardor recommended she be discharged home. Patient has pain medications to take at home. 03/07/20 13:36 Patient also states that her left ankle hurts denies any trauma. X-ray of the left ankle did not show any acute process. - Vital Signs Vital signs: Temp Pulse Resp BP Pulse Ox 98.4 F 89 15 105/65 98 03/07/20 06:00 03/07/20 04:03 03/07/20 09:00 03/07/20 09:00 03/07/20 09:00 03/07/20 13:35 Vital signs stable. - Laboratory Result Diagrams: 03/07/20 05:45 03/07/20 05:45 Laboratory results interpreted by me: 03/07/20 03/07/20 05:45 05:45 RBC 1.70 L Hgb 8.0 L Hct 22.3 L MCV 131 H MCH 47.0 H RDW 15.2 H Retic Count (auto) 4.08 H Chloride 108 H Glucose 122 H Total Bilirubin 4.4 H Direct Bilirubin 0.8 H AST 48 H ALT 39 H Alkaline Phosphatase 157 H 03/07/20 13:36 Laboratory results shows a hemoglobin of 8.0 and a reticulocyte count of 4.08. Patient does show evidence of elevated retake count and her hemoglobin at 8 is a excellent hemoglobin for this patient. - Diagnostic Test Radiology reviewed: Image reviewed, Reports reviewed Radiology results interpreted by me: 03/07/20 13:37 Chest X-Ray 03/07/20 05:35 IMPRESSION: No acute cardiopulmonary process copyright 2011 [employer]- All Rights Reserved Ankle X-Ray 03/07/20 07:53 IMPRESSION: No acute osseous abnormality of the left ankle. ED physician interpretation chest x-ray no acute process and left ankle x-ray shows no acute osseous abnormality no fracture no foreign body. - EKG Interpretation by Me Additional EKG results interpreted by me: 03/07/20 13:39 Twelve-lead EKG shows normal sinus rhythm rate of [address]-T wave changes. Normal axis normal intervals AK QRS and QT intervals. No acute ST elevation. Discharge - Discharge Clinical Impression: Sickle cell pain crisis, Sickle cell anemia with crisis Condition: Stable Disposition: HOME, SELF-CARE Instructions: Soft Ankle Splint ([facility]) Additional Instructions: Sickle Cell Crisis You have "sickle cell crisis." Sickle cell disease is caused by abnormal hemoglobin. This hemoglobin can deform red blood cells into a sickle shape. These abnormal blood cells can block blood vessels. This causes the pain of sickle cell crisis. Sickle cell crisis can occur any time. But attacks are more likely with acute infection, dehydration, or altitude change. A crisis usually causes pain in the legs, back, abdomen, and chest. Sometimes the pain may ease and return later. The usual treatment is oxygen, pain medication, IV fluids, and treatment of infection. Attacks may take a couple of days to resolve. Return if the pain becomes more severe, or if there are new symptoms. Referrals: SAVANNA AWAN MD [Primary Care Provider] - Follow up as needed HOMA BARRAZA MD [ACTIVE STAFF] - Follow up as needed I personally performed the services described in the documentation, reviewed and edited the documentation which was dictated to the scribe in my presence, and it accurately records my words and actions.
[2020-03-07 16:27] VITALS: BP 99/65
== END 2020-03-07 16:28 | disposition home or self-care (01) ==
LOC: ER 03:49
DX: D57.00 Hb-SS disease with crisis, unspecified (principal); S91.002A Unspecified open wound, left ankle, initial encounter; X58.XXXA Exposure to other specified factors, initial encounter; R68.83 Chills (without fever); R53.1 Weakness; R11.0 Nausea; Z88.1 Allergy status to other antibiotic agents
CPT/HCPCS: 93005; 36591; 96376; 99285; 96361; 96374; 96375; 36415; 85025; 85045; 80053; 84484; 73610; 71045; 93010; J1200; J1170; J2405; J7030; J1642

== ENCOUNTER 2020-03-10 15:44 | Inpatient (IN) | payer MEDICAID ==
[2020-03-10] MEDS ORDERED: NORMAL SALINE 1000 ML 1,000 ML IV PRN (17:37)
--- NOTE | 2020-03-10 18:07 | RADIOLOGY REPORT (SQ) ---
EXAM DESCRIPTION: CHEST SINGLE VIEW IMAGES COMPLETED DATE/TIME: 03/10/2020 5:53 pm REASON FOR STUDY: Admission COMPARISON: 03/07/2020 EXAM PARAMETERS: NUMBER OF VIEWS: One view. TECHNIQUE: Single frontal radiographic view of the chest acquired. RADIATION DOSE: NA LIMITATIONS: None. FINDINGS: LUNGS AND PLEURA: No opacities, masses or pneumothorax. No pleural effusion. MEDIASTINUM AND HILAR STRUCTURES: No masses. Contour normal. HEART AND VASCULAR STRUCTURES: Heart normal in size. Normal vasculature. BONES: No acute findings. HARDWARE: Injection port on the left. OTHER: No other significant finding. IMPRESSION: NO ACUTE RADIOGRAPHIC FINDING IN THE CHEST. TECHNICAL DOCUMENTATION: JOB ID: [id number] 2010 [employer]- All Rights Reserved Reading location - IP/workstation name: [email or web address]
[2020-03-10] MEDS: 1/2 NORMAL SALINE 1,000 ML IV PRN (19:00)
[2020-03-10 19:16] LABS: HEMATOCRIT 21.5 % (36.0-47.0); MEAN CORPUSCULAR HEMOGLOBIN 47.3 pg (27.0-33.4); MEAN CORPUSCULAR HGB CONC 36.3 g/dL (32.0-36.0); MEAN CORPUSCULAR VOLUME 131 fl (80-97); PLATELET COUNT 250 10^3/uL (150-450); RED BLOOD COUNT 1.65 10^6/uL (3.72-5.28); RED CELL DISTRIBUTION WIDTH 15.3 % (11.5-14.0); WHITE BLOOD COUNT 4.2 10^3/uL (4.0-10.5)
[2020-03-10 19:32] LABS: ALBUMIN 4.7 g/dL (3.5-5.0); ALKALINE PHOSPHATASE 149 U/L (38-126); ANION GAP 10 (5-19); ASPARTATE AMINO TRANSFERASE 36 U/L (14-36); BILIRUBIN,DIRECT 0.7 mg/dL (0.0-0.4); BILIRUBIN,TOTAL 4.4 mg/dL (0.2-1.3); BLOOD UREA NITROGEN 6 mg/dL (7-20); CALCIUM 8.8 mg/dL (8.4-10.2); CARBON DIOXIDE 21 mmol/L (22-30); CHLORIDE 108 mmol/L (98-107); GLUCOSE 99 mg/dL (75-110); POTASSIUM 3.5 mmol/L (3.6-5.0); TOTAL PROTEIN 7.6 g/dL (6.3-8.2)
[2020-03-10] MEDS: PROMETHAZINE HCL INJ 25 MG/1 ML VIAL IV PRN (19:35)
[2020-03-10] MEDS: DIPHENHYDRAMINE HCL 50 MG/ML VIAL IV PRN (19:35)
[2020-03-10] MEDS: HYDROMORPHONE HCL INJ/PF 2 MG/ML AMPULE IV PRN ×2 (19:35→21:56)
[2020-03-10 20:00] LABS: HEMOGLOBIN 7.8 g/dL (12.0-15.5)
--- NOTE | 2020-03-10 20:47 | PDOC H&P ---
History of Present Illness Admission Date/PCP: 03/10/20 15:44 SAVANNA AWAN MD History of Present Illness: WILLIE ALAN is a 50 year old femaleShe was in the emergency room over the weekend for evaluation of pain, she has sickle cell disease with frequent vaso- occlusive crisis and multiple hospitalization for same. 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 Past Surgical History Past Surgical History: Reports: Appendectomy, Section, Cholecystectomy, Orthopedic Surgery - R knee, Tonsillectomy Social History Smoking Status: Former Smoker Electronic Cigarette use?: No Frequency of Alcohol Use: None Hx Recreational Drug Use: No Drugs: None Hx Prescription Drug Abuse: No Family History Family History: Reviewed & Not Pertinent Parental Family History Reviewed: Yes Children Family History Reviewed: Yes Sibling(s) Family History Reviewed.: Yes Medication/Allergy Home Medications: Deferasirox [Jadenu] 360 mg PO DAILY 08/13/19 Epoetin Federico [Procrit Inj 20,000 Unit/1 ml Vial (Renal)] 60,000 unit IJ FR@1000 08/13/19 Folic Acid 1 mg PO DAILY 08/13/19 Gabapentin [Neurontin 300 mg Capsule] 300 mg PO Q12 08/13/19 Hydroxyurea [Hydrea 500 mg Capsule] 500 mg PO TID 08/13/19 Oxycodone HCl [Oxy-Ir 5 mg Tablet] 10 mg PO Q6HP PRN 08/13/19 Cholecalciferol (Vitamin D3) [Vitamin D3 1000 Unit Tablet] 5,000 unit PO DAILY 11/29/19 Oxycodone Myristate [Xtampza ER] 27 mg PO Q12 11/29/19 Ergocalciferol (Vitamin D2) [Drisdol 50,000 unit (1.25MG) Capsule] 50,000 unit PO WE@1000 01/12/20 Multivitamin [Tab-A-Yosvany (Multiple Vitamin) Tablet] 1 tab PO DAILY 01/12/20 Allergies/Adverse Reactions: doxycycline [Doxycycline] Allergy (Severe, Verified 01/11/20 20:15) Review of Systems Constitutional: PRESENT: chills Eyes: ABSENT: visual disturbances Ears: ABSENT: hearing changes Cardiovascular: ABSENT: chest pain, dyspnea on exertion, edema, orthropnea, palpitations Respiratory: ABSENT: cough, hemoptysis Gastrointestinal: ABSENT: abdominal pain, constipation, diarrhea, hematemesis, hematochezia, nausea, vomiting Genitourinary: ABSENT: dysuria, hematuria Musculoskeletal: PRESENT: back pain Integumentary: ABSENT: rash, wounds Neurological: ABSENT: abnormal gait, abnormal speech, confusion, dizziness, focal weakness, syncope Psychiatric: ABSENT: anxiety, depression, homidical ideation, suicidal ideation Endocrine: ABSENT: cold intolerance, heat intolerance, menstrual abnormalities, polydipsia, polyuria Hematologic/Lymphatic: ABSENT: easy bleeding, easy bruising, lymphadenopathy Physical Exam Vital Signs: Temp Pulse Resp BP Pulse Ox 99.3 F 77 17 103/62 100 03/10/20 19:28 03/10/20 19:28 03/10/20 19:28 03/10/20 19:28 03/10/20 19:28 General appearance: PRESENT: no acute distress Head exam: PRESENT: atraumatic, normocephalic Eye exam: PRESENT: PERRLA, scleral icterus Ear exam: PRESENT: normal external ear exam Mouth exam: PRESENT: moist, tongue midline Neck exam: PRESENT: full ROM Respiratory exam: PRESENT: clear to auscultation carolyn Cardiovascular exam: PRESENT: RRR, +S1, +S2 Pulses: PRESENT: normal dorsalis pedis pul, +2 pedal pulses bilateral Vascular exam: PRESENT: normal capillary refill GI/Abdominal exam: PRESENT: normal bowel sounds, soft Rectal exam: PRESENT: deferred Musculoskeletal exam: PRESENT: other - ulcer on the left ankle Neurological exam: PRESENT: alert, CN II-XII grossly intact Psychiatric exam: PRESENT: appropriate affect, normal mood Skin exam: PRESENT: dry, intact, warm Results Laboratory Results: 03/10/20 18:22 03/10/20 18:22 03/10/20 03/10/20 18: 18:22 WBC 4.2 RBC 1.65 L Hgb 7.8 L Hct 21.5 L MCV 131 H MCH 47.3 H MCHC 36.3 H RDW 15.3 H Plt Count 250 Sodium 138.9 Potassium 3.5 L Chloride 108 H Carbon Dioxide 21 L Anion Gap 10 BUN 6 L Creatinine 0.55 Est GFR ( Amer) > 60 Glucose 99 Calcium 8.8 Total Bilirubin 4.4 H AST 36 Alkaline Phosphatase 149 H Total Protein 7.6 Albumin 4.7 Impressions: Chest X-Ray 03/10/20 00:00 IMPRESSION: NO ACUTE RADIOGRAPHIC FINDING IN THE CHEST. 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
[2020-03-10] MEDS: OXYCODONE HCL SR 10 MG TABLET PO SCH (21:57)
[2020-03-11] MEDS: DIPHENHYDRAMINE HCL 50 MG/ML VIAL IV PRN ×5 (00:10→21:41)
[2020-03-11] MEDS: PROMETHAZINE HCL INJ 25 MG/1 ML VIAL IV PRN ×5 (00:10→23:55)
[2020-03-11] MEDS: HYDROMORPHONE HCL INJ/PF 2 MG/ML AMPULE IV PRN ×11 (00:10→23:55)
[2020-03-11] MEDS: 1/2 NORMAL SALINE 1,000 ML IV PRN ×3 (02:34→19:39)
[2020-03-11 07:48] LABS: APPEARANCE,URINE CLEAR; BILIRUBIN,URINE NEGATIVE (NEGATIVE); COLOR,URINE YELLOW; GLUCOSE, URINE NEGATIVE (NEGATIVE); KETONES,URINE NEGATIVE (NEGATIVE); LEUKOCYTE ESTERASE,URINE SMALL (NEGATIVE); NITRITE,URINE NEGATIVE (NEGATIVE); PROTEIN,URINE NEGATIVE (NEGATIVE); URINE SPECIFIC GRAVITY 1.004; UROBILINOGEN,URINE NEGATIVE mg/dL (<2.0)
--- NOTE | 2020-03-11 08:46 | PDOC CONSULTATION ---
Consultation Consult Date: 03/11/20 Provider Consulted: SAVANNA AWAN Consult reason:: Hematology/Oncology consultation was requested for patient with sickle cell anemia in acute pain crisis. History of Present Illness Admission Date/PCP: 03/10/20 15:44 SAVANNA AWAN MD History of Present Illness: WILLIE ALAN is a 50 year old female with sickle cell anemia and frequent veno-occulsive crises. She presented to the ED Tuesday with severe pain, was treated but was sent home. She returned on Tuesday to PCP's office with same complaints and is now admitted for treatment. She states that she is having substernal chest pains and joint pains typical of her acute crises. Nothing unusual. She also has pain in her ankle from a chronic stasis ulcer. 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 Children Family History Reviewed: Yes Sibling(s) Family History Reviewed.: Yes - Sickle cell Medication/Allergy Home Medications: Deferasirox [Jadenu] 360 mg PO DAILY 08/13/19 Epoetin Federico [Procrit Inj 20,000 Unit/1 ml Vial (Renal)] 60,000 unit IJ FR@1000 08/13/19 Folic Acid 1 mg PO DAILY 08/13/19 Gabapentin [Neurontin 300 mg Capsule] 300 mg PO Q12 08/13/19 Hydroxyurea [Hydrea 500 mg Capsule] 500 mg PO TID 08/13/19 Oxycodone HCl [Oxy-Ir 5 mg Tablet] 10 mg PO Q6HP PRN 08/13/19 Cholecalciferol (Vitamin D3) [Vitamin D3 1000 Unit Tablet] 5,000 unit PO DAILY 11/29/19 Oxycodone Myristate [Xtampza ER] 27 mg PO Q12 11/29/19 Ergocalciferol (Vitamin D2) [Drisdol 50,000 unit (1.25MG) Capsule] 50,000 unit PO WE@1000 01/12/20 Multivitamin [Tab-A-Yosvany (Multiple Vitamin) Tablet] 1 tab PO DAILY 01/12/20 Allergies/Adverse Reactions: doxycycline [Doxycycline] Allergy (Severe, Verified 01/11/20 20:15) Review of Systems Constitutional: PRESENT: fatigue. ABSENT: headache(s) Eyes: ABSENT: visual disturbances Ears: ABSENT: hearing changes Nose, Mouth, and Throat: ABSENT: sore throat Cardiovascular: PRESENT: chest pain Respiratory: PRESENT: dyspnea Gastrointestinal: PRESENT: nausea Musculoskeletal: PRESENT: as per HPI Integumentary: PRESENT: pruritus Neurological: PRESENT: weakness Hematologic/Lymphatic: ABSENT: easy bleeding Physical Exam Vital Signs: Temp Pulse Resp BP Pulse Ox 99.4 F 93 18 102/61 100 03/10/20 23:35 03/10/20 23:35 03/10/20 23:35 03/10/20 23:35 03/11/20 06:03 Intake & Output 03/10/20 03/11/20 03/12/20 06:59 06:59 06:59 Intake Total 1380 Balance 1380 Weight 59.7 kg General appearance: PRESENT: no acute distress, well-developed, well-nourished Exam: 50 year old female. Head exam: PRESENT: normocephalic, other Eye exam: PRESENT: EOMI, PERRLA Mouth exam: PRESENT: moist, tongue midline Neck exam: ABSENT: lymphadenopathy, thyromegaly Respiratory exam: PRESENT: clear to auscultation carolyn, unlabored Cardiovascular exam: PRESENT: RRR GI/Abdominal exam: PRESENT: soft. ABSENT: tenderness Extremities exam: ABSENT: pedal edema Musculoskeletal exam: PRESENT: other - chronic joint changes. Neurological exam: PRESENT: alert, awake, oriented to person, oriented to place, oriented to time, oriented to situation Psychiatric exam: PRESENT: appropriate affect Skin exam: PRESENT: other - ulcer on lateral left ankle about 1 cm. Results Laboratory Results: 03/10/20 18:22 03/10/20 18:22 03/10/20 03/10/20 03/11/20 18:22 18:22 06:55 WBC 4.2 RBC 1.65 L Hgb 7.8 L Hct 21.5 L MCV 131 H MCH 47.3 H MCHC 36.3 H RDW 15.3 H Plt Count 250 Sodium 138.9 Potassium 3.5 L Chloride 108 H Carbon Dioxide 21 L Anion Gap 10 BUN 6 L Creatinine 0.55 Est GFR ( Amer) > 60 Glucose 99 Calcium 8.8 Total Bilirubin 4.4 H AST 36 Alkaline Phosphatase 149 H Total Protein 7.6 Albumin 4.7 Urine Color YELLOW Urine Appearance CLEAR Urine pH 6.0 Ur Specific [place] 1.004 Urine Protein NEGATIVE Urine Glucose (UA) NEGATIVE Urine Ketones NEGATIVE Urine Blood SMALL H Urine Nitrite NEGATIVE Ur Leukocyte Esterase SMALL H Urine WBC (Auto) 4 Urine RBC (Auto) 1 Impressions: Chest X-Ray 03/10/20 00:00 IMPRESSION: NO ACUTE RADIOGRAPHIC FINDING IN THE CHEST. Assessment & Plan - Diagnosis (1) Ankle ulcer Is this a current diagnosis for this admission?: Yes Plan: Wet to dry dressings for now. Will watch closely. (2) Anemia, sickle cell with crisis Is this a current diagnosis for this admission?: Yes Plan: Fluids, oxygen, dilaudid. Continue home Oxycontin. - Plan Summary Plan Summary: I have encouraged fluids, ambulation, and good nutrition.
[2020-03-11] MEDS: OXYCODONE HCL SR 10 MG TABLET PO SCH ×2 (11:47→21:41)
--- NOTE | 2020-03-11 20:56 | PDOC PROGRESS REPORT ---
Subjective Progress Note for:: 03/11/20 Subjective:: Patient seen by the bedside Reason For Visit: SICKLE CELL CRISIS, ULCER LEFT ANKLE Physical Exam Vital Signs: Temp Pulse Resp BP Pulse Ox 98.6 F 83 16 103/60 99 03/11/20 15:55 03/11/20 15:55 03/11/20 15:55 03/11/20 15:55 03/11/20 15:55 Intake & Output 03/10/20 03/11/20 03/12/20 06:59 06:59 06:59 Intake Total 1380 1999 Balance 1380 1999 Weight 59.7 kg General appearance: PRESENT: no acute distress Eye exam: PRESENT: PERRLA Respiratory exam: PRESENT: clear to auscultation carolyn Cardiovascular exam: PRESENT: +S1, +S2 GI/Abdominal exam: PRESENT: soft Neurological exam: PRESENT: alert Results Laboratory Results: 03/10/20 18:22 03/10/20 18:22 03/11/20 06:55 Urine Color YELLOW Urine Appearance CLEAR Urine pH 6.0 Ur Specific [place] 1.004 Urine Protein NEGATIVE Urine Glucose (UA) NEGATIVE Urine Ketones NEGATIVE Urine Blood SMALL H Urine Nitrite NEGATIVE Ur Leukocyte Esterase SMALL H Urine WBC (Auto) 4 Urine RBC (Auto) 1 Impressions: Chest X-Ray 03/10/20 00:00 IMPRESSION: NO ACUTE RADIOGRAPHIC FINDING IN THE CHEST. 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 Is this a current diagnosis for this admission?: Yes Plan: Local wound dressing (3) Sickle cell anemia Qualifiers: Sickle-cell associated disorders: with unspecified crisis Qualified Code(s): D57.00 - Hb-SS disease with crisis, unspecified; D57.0 - Hb-SS disease with crisis Is this a current diagnosis for this admission?: Yes - Time Time Spent with patient: 25-34 minutes Level of Care: IMCU Medications reviewed and adjusted accordingly: Yes Anticipated discharge: Home Anticipated DC Timeframe: within 72 hours - Inpatient Certification Based on my medical assessment, after consideration of the patient's comorbidities, presenting symptoms, or acuity I expect that the services needed warrant INPATIENT care.: No I certify that my determination is in accordance with my understanding of Medicare's requirements for reasonable and necessary INPATIENT services [42 CFR 412.3e].: No
[2020-03-12] MEDS: 1/2 NORMAL SALINE 1,000 ML IV PRN (02:29)
[2020-03-12] MEDS: DIPHENHYDRAMINE HCL 50 MG/ML VIAL IV PRN ×4 (02:33→17:35)
[2020-03-12] MEDS: HYDROMORPHONE HCL INJ/PF 2 MG/ML AMPULE IV PRN ×7 (02:34→21:01)
[2020-03-12] MEDS: PROMETHAZINE HCL INJ 25 MG/1 ML VIAL IV PRN ×3 (05:17→15:50)
[2020-03-12] MEDS ORDERED: DISPOSABLE SUBCUT ONE ×2 (08:41→17:30)
[2020-03-12] MEDS ORDERED: EPOETIN ALFA EPBX SUBCUT ONE ×2 (08:41→17:30)
--- NOTE | 2020-03-12 08:51 | PDOC PROGRESS REPORT ---
Subjective Progress Note for:: 03/12/20 Subjective:: Patient states that the pain has not improved. She has swelling in her left upper arm (same as prior admission) as well as the ulcer on her ankle. Dressing was changed yesterday. She is also having some diarrhea. ROS: No dyspnea. Chest and joint pains continue. Reason For Visit: SICKLE CELL CRISIS, ULCER LEFT ANKLE Physical Exam Vital Signs: Temp Pulse Resp BP Pulse Ox 98.9 F 82 18 112/57 L 100 03/12/20 08:39 03/11/20 23:14 03/11/20 23:14 03/11/20 23:14 03/11/20 23:14 Intake & Output 03/11/20 03/12/20 03/13/20 06:59 06:59 06:59 Intake Total 1380 3520 Balance 1380 3520 Weight 59.7 kg 59.7 kg General appearance: PRESENT: well-developed, well-nourished Exam: In moderate pain. Very uncomfortable. Head exam: PRESENT: normocephalic Eye exam: PRESENT: EOMI Respiratory exam: PRESENT: unlabored Extremities exam: PRESENT: other - No significant change in extremities. US last admission on LUE showed no evidence of DVT. Neurological exam: PRESENT: alert, awake Psychiatric exam: PRESENT: appropriate affect Skin exam: PRESENT: normal color Results Laboratory Results: 03/10/20 18:22 03/10/20 18:22 Impressions: Chest X-Ray 03/10/20 00:00 IMPRESSION: NO ACUTE RADIOGRAPHIC FINDING IN THE CHEST. Assessment & Plan - Diagnosis (1) Ankle ulcer Is this a current diagnosis for this admission?: Yes Plan: Wet to dry dressing changes daily. Will watch. (2) Anemia, sickle cell with crisis Is this a current diagnosis for this admission?: Yes Plan: Will add home meds. Need to avoid transfusions if possible. Will give EPO today. Will increase Dilaudid a bit today as well. - Time Time Spent with patient: 15-24 minutes
[2020-03-12] MEDS: OXYCODONE HCL SR 10 MG TABLET PO SCH ×2 (09:15→23:48)
[2020-03-12] MEDS ORDERED: EPOETIN ALFA EPBX SUBCUT SCH (11:00)
[2020-03-12] MEDS ORDERED: DISPOSABLE SUBCUT SCH (11:00)
[2020-03-12] MEDS ORDERED: [UNRECOGNIZED DRUG - OTHER] SUBCUT SCH (11:00)
[2020-03-12] MEDS: CHOLECALCIFEROL (D3) 1,000 UNIT (25 MCG) TABLET PO SCH (13:51)
[2020-03-12] MEDS: HYDROXYUREA 500 MG CAPSULE PO SCH ×2 (13:51→17:37)
[2020-03-12] MEDS: FOLIC ACID 1 MG TABLET PO SCH (13:51)
[2020-03-12] MEDS: GABAPENTIN 300 MG CAPSULE PO SCH ×2 (13:51→23:48)
--- NOTE | 2020-03-12 17:10 | PDOC PROGRESS REPORT ---
Subjective Progress Note for:: 03/12/20 Subjective:: Patient seen by the bedside Reason For Visit: SICKLE CELL CRISIS, ULCER LEFT ANKLE Physical Exam Vital Signs: Temp Pulse Resp BP Pulse Ox 98.9 F 76 18 106/64 99 03/12/20 08:39 03/12/20 08:08 03/12/20 08:08 03/12/20 08:08 03/12/20 08:08 Intake & Output 03/11/20 03/12/20 03/13/20 06:59 06:59 06:59 Intake Total 1380 3520 480 Balance 1380 3520 480 Weight 59.7 kg 59.7 kg General appearance: PRESENT: no acute distress Eye exam: PRESENT: PERRLA Respiratory exam: PRESENT: clear to auscultation carolyn Cardiovascular exam: PRESENT: +S1, +S2 Results Laboratory Results: 03/10/20 18:22 03/10/20 18:22 Impressions: Chest X-Ray 03/10/20 00:00 IMPRESSION: NO ACUTE RADIOGRAPHIC FINDING IN THE CHEST. 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
[2020-03-12] MEDS ORDERED: [UNRECOGNIZED DRUG - OTHER] SUBCUT ONE (17:30)
[2020-03-12] MEDS: NORMAL SALINE 1000 ML 1,000 ML with POTASSIUM CHLORIDE 10 MEQ, MAGNESIUM SULFATE 8 MEQ,... IV SCH ×5 (21:03)
[2020-03-13] MEDS: HYDROMORPHONE HCL INJ/PF 2 MG/ML AMPULE IV PRN ×8 (00:33→23:33)
[2020-03-13] MEDS: DIPHENHYDRAMINE HCL 50 MG/ML VIAL IV PRN ×4 (00:34→23:32)
[2020-03-13] MEDS: PROMETHAZINE HCL INJ 25 MG/1 ML VIAL IV PRN ×2 (04:29→13:31)
[2020-03-13] MEDS: 1/2 NORMAL SALINE 1,000 ML IV PRN ×2 (04:36→10:41)
[2020-03-13] MEDS: GABAPENTIN 300 MG CAPSULE PO SCH ×2 (10:32→22:38)
[2020-03-13] MEDS: CHOLECALCIFEROL (D3) 1,000 UNIT (25 MCG) TABLET PO SCH (10:32)
[2020-03-13] MEDS: FOLIC ACID 1 MG TABLET PO SCH (10:32)
[2020-03-13] MEDS: HYDROXYUREA 500 MG CAPSULE PO SCH ×2 (10:32→17:57)
[2020-03-13] MEDS: OXYCODONE HCL SR 10 MG TABLET PO SCH ×2 (11:25→22:38)
--- NOTE | 2020-03-13 17:49 | PDOC PROGRESS REPORT ---
Subjective Progress Note for:: 03/13/20 Subjective:: Patient states that the pain has not significantly changed, but she is moving around much more freely today and was up to the bedside commode without as much difficulty. ROS: no dyspnea. diarrhea remains. Reason For Visit: SICKLE CELL CRISIS, ULCER LEFT ANKLE Physical Exam Vital Signs: Temp Pulse Resp BP Pulse Ox 98.8 F 78 12 94/58 L 100 03/13/20 15:38 03/13/20 15:38 03/13/20 15:38 03/13/20 15:38 03/13/20 15:38 Intake & Output 03/12/20 03/13/20 03/14/20 06:59 06:59 06:59 Intake Total 3520 2498 912 Balance 3520 2498 912 Weight 59.7 kg General appearance: PRESENT: no acute distress, well-developed, well-nourished Head exam: PRESENT: normocephalic Eye exam: PRESENT: EOMI Respiratory exam: PRESENT: unlabored Extremities exam: ABSENT: pedal edema Neurological exam: PRESENT: alert, awake Psychiatric exam: PRESENT: appropriate affect Skin exam: PRESENT: normal color Results Laboratory Results: 03/10/20 18:22 03/10/20 18:22 Impressions: Chest X-Ray 03/10/20 00:00 IMPRESSION: NO ACUTE RADIOGRAPHIC FINDING IN THE CHEST. Assessment & Plan - Diagnosis (1) Ankle ulcer Is this a current diagnosis for this admission?: Yes Plan: Continue daily dressing changes (2) Anemia, sickle cell with crisis Is this a current diagnosis for this admission?: Yes Plan: Continue current pain meds, IV fluids, O2, etc. repeat labs tomorrow. She received EPO yesterday. - Time Time Spent with patient: Less than 15 minutes
[2020-03-13] MEDS: NORMAL SALINE 1000 ML 1,000 ML with POTASSIUM CHLORIDE 10 MEQ, MAGNESIUM SULFATE 8 MEQ,... IV SCH ×5 (17:57)
--- NOTE | 2020-03-13 20:44 | PDOC PROGRESS REPORT ---
Subjective Progress Note for:: 03/13/20 Subjective:: Patient seen by the bedside, complain of pain Reason For Visit: SICKLE CELL CRISIS, ULCER LEFT ANKLE Physical Exam Vital Signs: Temp Pulse Resp BP Pulse Ox 98.8 F 78 12 94/58 L 100 03/13/20 15:38 03/13/20 15:38 03/13/20 15:38 03/13/20 15:38 03/13/20 15:38 Intake & Output 03/12/20 03/13/20 03/14/20 06:59 06:59 06:59 Intake Total 3520 2498 2356 Balance 3520 2498 2356 Weight 59.7 kg General appearance: PRESENT: no acute distress Eye exam: PRESENT: PERRLA Respiratory exam: PRESENT: clear to auscultation carolyn Cardiovascular exam: PRESENT: +S1, +S2 GI/Abdominal exam: PRESENT: soft Neurological exam: PRESENT: alert Results Laboratory Results: 03/10/20 18:22 03/10/20 18:22 Impressions: Chest X-Ray 03/10/20 00:00 IMPRESSION: NO ACUTE RADIOGRAPHIC FINDING IN THE CHEST. 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
[2020-03-14] MEDS: 1/2 NORMAL SALINE 1,000 ML IV PRN ×3 (01:26→16:33)
[2020-03-14] MEDS: HYDROMORPHONE HCL INJ/PF 2 MG/ML AMPULE IV PRN ×8 (02:27→21:47)
[2020-03-14] MEDS: DIPHENHYDRAMINE HCL 50 MG/ML VIAL IV PRN ×4 (05:13→21:47)
[2020-03-14 06:19] LABS: HEMATOCRIT 17.6 % (36.0-47.0); MEAN CORPUSCULAR HEMOGLOBIN 46.2 pg (27.0-33.4); MEAN CORPUSCULAR HGB CONC 35.8 g/dL (32.0-36.0); MEAN CORPUSCULAR VOLUME 129 fl (80-97); PLATELET COUNT 217 10^3/uL (150-450); RED BLOOD COUNT 1.36 10^6/uL (3.72-5.28); RED CELL DISTRIBUTION WIDTH 15.1 % (11.5-14.0); WHITE BLOOD COUNT 6.1 10^3/uL (4.0-10.5)
[2020-03-14 06:23] LABS: HEMOGLOBIN 6.3 g/dL (12.0-15.5)
[2020-03-14 06:43] LABS: ABSOLUTE LYMPHOCYTES# (MANUAL) 2.7 10^3/uL (0.5-4.7); ABSOLUTE MONOCYTES # (MANUAL) 0.1 10^3/uL (0.1-1.4); BASOPHILS % (MANUAL) 0 % (0-2); EOSINOPHILS % (MANUAL) 9 % (0-6); LYMPHOCYTES % (MANUAL) 44 % (13-45); MONOCYTES % (MANUAL) 2 % (3-13); NUCLEATED RED BLOOD CELLS 3 /100 WBC (0); SEGMENTED NEUTROPHILS % (MAN) 45 % (42-78); TOTAL CELLS COUNTED 100
[2020-03-14 06:44] LABS: ANISOCYTOSIS 1+; PLATELET COMMENT ADEQUATE; POLYCHROMASIA SLIGHT
[2020-03-14 06:45] LABS: HOWELL-JOLLY BODIES PRESENT
[2020-03-14 06:57] LABS: ALBUMIN 3.9 g/dL (3.5-5.0); ALKALINE PHOSPHATASE 146 U/L (38-126); ANION GAP 9 (5-19); ASPARTATE AMINO TRANSFERASE 36 U/L (14-36); BILIRUBIN,DIRECT 0.8 mg/dL (0.0-0.4); BILIRUBIN,TOTAL 2.9 mg/dL (0.2-1.3); BLOOD UREA NITROGEN 9 mg/dL (7-20); CALCIUM 8.6 mg/dL (8.4-10.2); CARBON DIOXIDE 23 mmol/L (22-30); CHLORIDE 109 mmol/L (98-107); GLUCOSE 111 mg/dL (75-110); POTASSIUM 4.2 mmol/L (3.6-5.0); TOTAL PROTEIN 6.8 g/dL (6.3-8.2)
[2020-03-14] MEDS: PROMETHAZINE HCL INJ 25 MG/1 ML VIAL IV PRN (07:44)
--- NOTE | 2020-03-14 08:21 | PDOC PROGRESS REPORT ---
Subjective Progress Note for:: 03/14/20 Subjective:: Patient is about the same. Still has swelling in her left upper arm without change. Pain in ankle continues with dressing changes. No other new complaints. Reason For Visit: SICKLE CELL CRISIS, ULCER LEFT ANKLE Physical Exam Vital Signs: Temp Pulse Resp BP Pulse Ox 99.1 F 85 16 97/65 L 99 03/14/20 05:00 03/14/20 05:00 03/14/20 05:00 03/14/20 05:00 03/14/20 05:00 Intake & Output 03/13/20 03/14/20 03/15/20 06:59 06:59 06:59 Intake Total 2498 3374 Output Total 200 Balance 2498 3174 Weight 64.9 kg General appearance: PRESENT: no acute distress, well-developed, well-nourished Head exam: PRESENT: normocephalic Respiratory exam: PRESENT: unlabored Extremities exam: PRESENT: other - Wound is covered.. ABSENT: pedal edema Neurological exam: PRESENT: alert, awake Psychiatric exam: PRESENT: appropriate affect Skin exam: PRESENT: normal color Results Laboratory Results: 03/14/20 05:55 03/14/20 05:55 03/14/20 03/14/20 05:55 05:55 WBC 6.1 RBC 1.36 L Hgb 6.3 L Hct 17.6 L MCV 129 H MCH 46.2 H MCHC 35.8 RDW 15.1 H Plt Count 217 Seg Neutrophils % Not Reportable Sodium 140.7 Potassium 4.2 Chloride 109 H Carbon Dioxide 23 Anion Gap 9 BUN 9 Creatinine 0.67 Est GFR ( Amer) > 60 Glucose 111 H Calcium 8.6 Total Bilirubin 2.9 H AST 36 Alkaline Phosphatase 146 H Total Protein 6.8 Albumin 3.9 Impressions: Chest X-Ray 03/10/20 00:00 IMPRESSION: NO ACUTE RADIOGRAPHIC FINDING IN THE CHEST. Assessment & Plan - Diagnosis (1) Ankle ulcer Is this a current diagnosis for this admission?: Yes Plan: I will see if a better dressing is available like Duoderm or Polymem. (2) Anemia, sickle cell with crisis Is this a current diagnosis for this admission?: Yes Plan: No change to treatment today. May try to decrease pain meds tomorrow. - Time Time Spent with patient: Less than 15 minutes
[2020-03-14] MEDS: GABAPENTIN 300 MG CAPSULE PO SCH ×2 (09:08→22:35)
[2020-03-14] MEDS: CHOLECALCIFEROL (D3) 1,000 UNIT (25 MCG) TABLET PO SCH (09:08)
[2020-03-14] MEDS: FOLIC ACID 1 MG TABLET PO SCH (09:08)
[2020-03-14] MEDS: OXYCODONE HCL SR 10 MG TABLET PO SCH ×2 (09:08→22:35)
[2020-03-14] MEDS: HYDROXYUREA 500 MG CAPSULE PO SCH ×2 (09:08→17:08)
[2020-03-14] MEDS: NORMAL SALINE 1000 ML 1,000 ML with POTASSIUM CHLORIDE 10 MEQ, MAGNESIUM SULFATE 8 MEQ,... IV SCH ×5 (17:08)
--- NOTE | 2020-03-14 21:46 | PDOC PROGRESS REPORT ---
Subjective Progress Note for:: 03/14/20 Subjective:: Patient seen by the bedside, there is no new complaints, she continues to require pain medication Reason For Visit: SICKLE CELL CRISIS, ULCER LEFT ANKLE Physical Exam Vital Signs: Temp Pulse Resp BP Pulse Ox 99.8 F 84 18 100/53 L 99 03/14/20 19:23 03/14/20 19:23 03/14/20 19:23 03/14/20 19:23 03/14/20 19:23 Intake & Output 03/13/20 03/14/20 03/15/20 06:59 06:59 06:59 Intake Total 2498 3374 2080 Output Total 200 Balance 2498 3174 2080 Weight 64.9 kg General appearance: PRESENT: no acute distress Eye exam: PRESENT: PERRLA Respiratory exam: PRESENT: clear to auscultation carolyn Cardiovascular exam: PRESENT: +S1, +S2 Results Laboratory Results: 03/14/20 05:55 03/14/20 05:55 03/14/20 03/14/20 05:55 05:55 WBC 6.1 RBC 1.36 L Hgb 6.3 L Hct 17.6 L MCV 129 H MCH 46.2 H MCHC 35.8 RDW 15.1 H Plt Count 217 Seg Neutrophils % Not Reportable Sodium 140.7 Potassium 4.2 Chloride 109 H Carbon Dioxide 23 Anion Gap 9 BUN 9 Creatinine 0.67 Est GFR ( Amer) > 60 Glucose 111 H Calcium 8.6 Total Bilirubin 2.9 H AST 36 Alkaline Phosphatase 146 H Total Protein 6.8 Albumin 3.9 Impressions: Chest X-Ray 03/10/20 00:00 IMPRESSION: NO ACUTE RADIOGRAPHIC FINDING IN THE CHEST. 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
[2020-03-15] MEDS: HYDROMORPHONE HCL INJ/PF 2 MG/ML AMPULE IV PRN ×9 (00:40→22:38)
[2020-03-15] MEDS: DIPHENHYDRAMINE HCL 50 MG/ML VIAL IV PRN ×4 (03:50→22:38)
[2020-03-15] MEDS: 1/2 NORMAL SALINE 1,000 ML IV PRN ×2 (07:32→14:17)
[2020-03-15] MEDS: HYDROXYUREA 500 MG CAPSULE PO SCH ×2 (09:04→17:25)
[2020-03-15] MEDS: GABAPENTIN 300 MG CAPSULE PO SCH ×2 (09:05→22:39)
[2020-03-15] MEDS: FOLIC ACID 1 MG TABLET PO SCH (09:05)
[2020-03-15] MEDS: CHOLECALCIFEROL (D3) 1,000 UNIT (25 MCG) TABLET PO SCH (09:05)
[2020-03-15] MEDS: PROMETHAZINE HCL INJ 25 MG/1 ML VIAL IV PRN ×3 (09:13→22:39)
[2020-03-15] MEDS: OXYCODONE HCL SR 10 MG TABLET PO SCH ×2 (12:00→22:55)
--- NOTE | 2020-03-15 15:28 | PDOC PROGRESS REPORT ---
Subjective Progress Note for:: 03/15/20 Subjective:: Patient reports no significant chage. She states that they ordered her a heating pad, but it has not yet arrived. She has not yet been up to chair. She still complains of her arm swelling, which we again discussed and I again reminded her that this is a chronic problem and she should be exercising and moving as much as possible. Reason For Visit: SICKLE CELL CRISIS, ULCER LEFT ANKLE Physical Exam Vital Signs: Temp Pulse Resp BP Pulse Ox 98.9 F 88 20 103/68 98 03/15/20 11:27 03/15/20 11:27 03/15/20 11:27 03/15/20 11:27 03/15/20 11:27 Intake & Output 03/14/20 03/15/20 03/16/20 06:59 06:59 06:59 Intake Total 3374 3798 2040 Output Total 200 Balance 3174 3798 2040 Weight 64.9 kg 63.3 kg General appearance: PRESENT: no acute distress, well-developed, well-nourished Head exam: PRESENT: normocephalic Eye exam: PRESENT: EOMI Respiratory exam: PRESENT: unlabored Extremities exam: PRESENT: other - Chronic joint changes. Nothing new.. ABSENT: joint swelling, pedal edema Neurological exam: PRESENT: alert, awake Psychiatric exam: PRESENT: appropriate affect Skin exam: PRESENT: normal color Results Laboratory Results: 03/14/20 05:55 03/14/20 05:55 Impressions: Chest X-Ray 03/10/20 00:00 IMPRESSION: NO ACUTE RADIOGRAPHIC FINDING IN THE CHEST. Assessment & Plan - Diagnosis (1) Ankle ulcer Is this a current diagnosis for this admission?: Yes (2) Anemia, sickle cell with crisis Is this a current diagnosis for this admission?: Yes Plan: No changes today. I have encouraged the nursing staff and the patient to walk in hallway at least daily and sit up in chair a few hours every day. - Time Time Spent with patient: 15-24 minutes
[2020-03-15] MEDS: NORMAL SALINE 1000 ML 1,000 ML with POTASSIUM CHLORIDE 10 MEQ, MAGNESIUM SULFATE 8 MEQ,... IV SCH ×5 (17:26)
--- NOTE | 2020-03-15 18:16 | PDOC PROGRESS REPORT ---
Subjective Progress Note for:: 03/15/20 Subjective:: Patient seen by the bedside, there is no new complaints, she continues to require pain medication Reason For Visit: SICKLE CELL CRISIS, ULCER LEFT ANKLE Physical Exam Vital Signs: Temp Pulse Resp BP Pulse Ox 98.4 F 84 12 92/51 L 99 03/15/20 15:07 03/15/20 15:07 03/15/20 15:07 03/15/20 15:07 03/15/20 15:07 Intake & Output 03/14/20 03/15/20 03/16/20 06:59 06:59 06:59 Intake Total 3374 3798 2160 Output Total 200 Balance 3174 3798 2160 Weight 64.9 kg 63.3 kg General appearance: PRESENT: no acute distress, well-developed, well-nourished Head exam: PRESENT: atraumatic, normocephalic Eye exam: PRESENT: conjunctiva pink, EOMI, PERRLA. ABSENT: scleral icterus Ear exam: PRESENT: normal external ear exam Mouth exam: PRESENT: moist, tongue midline Neck exam: PRESENT: full ROM. ABSENT: carotid bruit, JVD, lymphadenopathy, thyromegaly Respiratory exam: PRESENT: clear to auscultation carolyn Cardiovascular exam: PRESENT: RRR, +S1, +S2. ABSENT: diastolic murmur, rubs, systolic murmur Pulses: PRESENT: normal dorsalis pedis pul, +2 pedal pulses bilateral Vascular exam: PRESENT: normal capillary refill GI/Abdominal exam: PRESENT: normal bowel sounds, soft Rectal exam: PRESENT: deferred Neurological exam: PRESENT: alert, awake, oriented to person, oriented to place, oriented to time, oriented to situation, CN II-XII grossly intact Psychiatric exam: PRESENT: appropriate affect, normal mood Skin exam: PRESENT: dry, intact, warm. ABSENT: cyanosis, rash Results Laboratory Results: 03/14/20 05:55 03/14/20 05:55 Impressions: Chest X-Ray 03/10/20 00:00 IMPRESSION: NO ACUTE RADIOGRAPHIC FINDING IN THE CHEST. 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
[2020-03-16] MEDS: DIPHENHYDRAMINE HCL 50 MG/ML VIAL IV PRN ×5 (02:44→21:14)
[2020-03-16] MEDS: HYDROMORPHONE HCL INJ/PF 2 MG/ML AMPULE IV PRN ×9 (02:44→23:28)
[2020-03-16] MEDS: PROMETHAZINE HCL INJ 25 MG/1 ML VIAL IV PRN ×5 (02:45→23:28)
[2020-03-16] MEDS: 1/2 NORMAL SALINE 1,000 ML IV PRN ×4 (02:51→17:12)
[2020-03-16] MEDS: CHOLECALCIFEROL (D3) 1,000 UNIT (25 MCG) TABLET PO SCH (09:53)
[2020-03-16] MEDS: OXYCODONE HCL SR 10 MG TABLET PO SCH ×2 (09:53→21:35)
[2020-03-16] MEDS: FOLIC ACID 1 MG TABLET PO SCH (09:54)
[2020-03-16] MEDS: GABAPENTIN 300 MG CAPSULE PO SCH ×2 (09:54→21:15)
[2020-03-16] MEDS: HYDROXYUREA 500 MG CAPSULE PO SCH ×2 (09:54→18:43)
--- NOTE | 2020-03-16 16:27 | PDOC PROGRESS REPORT ---
Subjective Progress Note for:: 03/16/20 Subjective:: Patient seen by the bedside, there is no new complaints, she continues to require pain medication Reason For Visit: SICKLE CELL CRISIS, ULCER LEFT ANKLE Physical Exam Vital Signs: Temp Pulse Resp BP Pulse Ox 98.8 F 86 12 93/53 L 100 03/16/20 11:58 03/16/20 11:58 03/16/20 11:58 03/16/20 11:58 03/16/20 11:58 Intake & Output 03/15/20 03/16/20 03/17/20 06:59 06:59 06:59 Intake Total 3798 3160 1038 Balance 3798 3160 1038 Weight 63.3 kg 63.3 kg General appearance: PRESENT: no acute distress Eye exam: PRESENT: PERRLA Respiratory exam: PRESENT: clear to auscultation carolyn Cardiovascular exam: PRESENT: +S1, +S2 Results Laboratory Results: 03/14/20 05:55 03/14/20 05:55 03/10/20 18:52 Blood Blood Culture - Final NO GROWTH IN 5 DAYS 03/10/20 18:22 Blood Blood Culture - Final NO GROWTH IN 5 DAYS Impressions: Chest X-Ray 03/10/20 00:00 IMPRESSION: NO ACUTE RADIOGRAPHIC FINDING IN THE CHEST. 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
[2020-03-16] MEDS: NORMAL SALINE 1000 ML 1,000 ML with POTASSIUM CHLORIDE 10 MEQ, MAGNESIUM SULFATE 8 MEQ,... IV SCH ×5 (18:43)
[2020-03-17] MEDS: DIPHENHYDRAMINE HCL 50 MG/ML VIAL IV PRN ×5 (02:09→22:52)
[2020-03-17] MEDS: HYDROMORPHONE HCL INJ/PF 2 MG/ML AMPULE IV PRN ×9 (02:31→22:52)
[2020-03-17] MEDS: PROMETHAZINE HCL INJ 25 MG/1 ML VIAL IV PRN ×4 (04:47→20:45)
[2020-03-17] MEDS: 1/2 NORMAL SALINE 1,000 ML IV PRN ×2 (07:30→15:04)
--- NOTE | 2020-03-17 07:56 | PDOC PROGRESS REPORT ---
Subjective Progress Note for:: 03/17/20 Subjective:: Patient states that she had a terrible night last night. However, yesterday, she was able to sit up in chair. She was not able to walk yet due to pain in her ankles/feet. ROS: No constipation. No dyspnea. No fevers. Nurses report that the wound on her ankle has decreased in size. Reason For Visit: SICKLE CELL CRISIS, ULCER LEFT ANKLE Physical Exam Vital Signs: Temp Pulse Resp BP Pulse Ox 98.7 F 84 18 104/61 100 03/16/20 23:30 03/16/20 23:30 03/16/20 23:30 03/16/20 23:30 03/16/20 23:30 Intake & Output 03/16/20 03/17/20 03/18/20 06:59 06:59 06:59 Intake Total 4178 4698 Output Total 2100 Balance 4178 2598 Weight 63.3 kg 63 kg General appearance: PRESENT: no acute distress, well-developed, well-nourished Head exam: PRESENT: normocephalic Eye exam: PRESENT: EOMI Respiratory exam: PRESENT: unlabored Extremities exam: PRESENT: other - Left ankle wrapped.. ABSENT: pedal edema Neurological exam: PRESENT: alert, awake Psychiatric exam: PRESENT: appropriate affect Skin exam: PRESENT: normal color Results Laboratory Results: 03/14/20 05:55 03/14/20 05:55 Impressions: Chest X-Ray 03/10/20 00:00 IMPRESSION: NO ACUTE RADIOGRAPHIC FINDING IN THE CHEST. Assessment & Plan - Diagnosis (1) Ankle ulcer Is this a current diagnosis for this admission?: Yes Plan: Continue wet to dry dressings for now, as it appears to be healing. (2) Anemia, sickle cell with crisis Is this a current diagnosis for this admission?: Yes Plan: Will add physical therapy for ROM and ambulation. Encouraged out of bed as much as possible. No changes to pain meds today. Repeat labs in AM. Procrit on Tue. - Time Time Spent with patient: 15-24 minutes
[2020-03-17] MEDS: CHOLECALCIFEROL (D3) 1,000 UNIT (25 MCG) TABLET PO SCH (10:33)
[2020-03-17] MEDS: GABAPENTIN 300 MG CAPSULE PO SCH ×2 (10:33→22:52)
[2020-03-17] MEDS: FOLIC ACID 1 MG TABLET PO SCH (10:34)
[2020-03-17] MEDS: HYDROXYUREA 500 MG CAPSULE PO SCH ×2 (11:07→18:04)
[2020-03-17] MEDS: OXYCODONE HCL SR 10 MG TABLET PO SCH ×2 (11:54→22:57)
[2020-03-17] MEDS: NORMAL SALINE 1000 ML 1,000 ML with POTASSIUM CHLORIDE 10 MEQ, MAGNESIUM SULFATE 8 MEQ,... IV SCH ×5 (17:44)
--- NOTE | 2020-03-17 22:40 | PDOC PROGRESS REPORT ---
Subjective Progress Note for:: 03/17/20 Subjective:: Patient seen by the bedside presently on banana IV fluid Reason For Visit: SICKLE CELL CRISIS, ULCER LEFT ANKLE Physical Exam Vital Signs: Temp Pulse Resp BP Pulse Ox 99.1 F 89 16 103/58 L 100 03/17/20 19:33 03/17/20 19:33 03/17/20 19:33 03/17/20 19:33 03/17/20 19:33 Intake & Output 03/16/20 03/17/20 03/18/20 06:59 06:59 06:59 Intake Total 4178 4698 3518 Output Total 2100 2100 Balance 4178 2598 1418 Weight 63.3 kg 63 kg 63 kg General appearance: PRESENT: no acute distress Eye exam: PRESENT: PERRLA Respiratory exam: PRESENT: clear to auscultation carolyn Cardiovascular exam: PRESENT: +S1, +S2 GI/Abdominal exam: PRESENT: soft Neurological exam: PRESENT: alert Results Laboratory Results: 03/14/20 05:55 03/14/20 05:55 Impressions: Chest X-Ray 03/10/20 00:00 IMPRESSION: NO ACUTE RADIOGRAPHIC FINDING IN THE CHEST. 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
[2020-03-18] MEDS: PROMETHAZINE HCL INJ 25 MG/1 ML VIAL IV PRN ×5 (00:51→21:06)
[2020-03-18] MEDS: HYDROMORPHONE HCL INJ/PF 2 MG/ML AMPULE IV PRN ×10 (00:52→23:15)
[2020-03-18] MEDS: DIPHENHYDRAMINE HCL 50 MG/ML VIAL IV PRN ×5 (03:10→23:15)
[2020-03-18 07:25] LABS: ALBUMIN 3.8 g/dL (3.5-5.0); ALKALINE PHOSPHATASE 136 U/L (38-126); ANION GAP 5 (5-19); ASPARTATE AMINO TRANSFERASE 51 U/L (14-36); BILIRUBIN,DIRECT 0.7 mg/dL (0.0-0.4); BLOOD UREA NITROGEN 8 mg/dL (7-20); CALCIUM 8.8 mg/dL (8.4-10.2); CARBON DIOXIDE 28 mmol/L (22-30); CHLORIDE 106 mmol/L (98-107); GLUCOSE 106 mg/dL (75-110); POTASSIUM 4.3 mmol/L (3.6-5.0); TOTAL PROTEIN 6.4 g/dL (6.3-8.2)
[2020-03-18 07:29] LABS: HEMATOCRIT 17.7 % (36.0-47.0); MEAN CORPUSCULAR HEMOGLOBIN 47.4 pg (27.0-33.4); MEAN CORPUSCULAR VOLUME 132 fl (80-97); PLATELET COUNT 238 10^3/uL (150-450); RED BLOOD COUNT 1.34 10^6/uL (3.72-5.28); RED CELL DISTRIBUTION WIDTH 16.3 % (11.5-14.0); WHITE BLOOD COUNT 4.7 10^3/uL (4.0-10.5)
[2020-03-18 08:03] LABS: ABSOLUTE LYMPHOCYTES# (MANUAL) 2.5 10^3/uL (0.5-4.7); ABSOLUTE MONOCYTES # (MANUAL) 0.4 10^3/uL (0.1-1.4); BASOPHILS % (MANUAL) 1 % (0-2); EOSINOPHILS % (MANUAL) 1 % (0-6); LYMPHOCYTES % (MANUAL) 54 % (13-45); MONOCYTES % (MANUAL) 8 % (3-13); NUCLEATED RED BLOOD CELLS 97 /100 WBC (0); SEGMENTED NEUTROPHILS % (MAN) 36 % (42-78); TOTAL CELLS COUNTED 100
[2020-03-18 08:05] LABS: ANISOCYTOSIS 2+; HOWELL-JOLLY BODIES PRESENT; PAPPENHEIMER BODIES PRESENT; PLATELET COMMENT ADEQUATE
[2020-03-18 08:06] LABS: TARGET CELLS 1+
[2020-03-18 08:09] LABS: POIKILOCYTOSIS 2+
[2020-03-18 08:10] LABS: POLYCHROMASIA 2+; SCHISTOCYTES 2+; SICKLE RED CELLS 2+; TEAR DROP CELLS 2+
[2020-03-18 08:11] LABS: OVALOCYTES 1+
[2020-03-18 08:14] LABS: HEMOGLOBIN 6.4 g/dL (12.0-15.5)
--- NOTE | 2020-03-18 09:02 | PDOC PROGRESS REPORT ---
Subjective Progress Note for:: 03/18/20 Subjective:: Patient states that the pain in her shoulders is a bit worse. She was not able to sleep again last night. She was able to sit up in chair and work with Physical therapy. Reason For Visit: SICKLE CELL CRISIS, ULCER LEFT ANKLE Physical Exam Vital Signs: Temp Pulse Resp BP Pulse Ox 99.3 F 85 18 130/60 H 100 03/18/20 08:32 03/18/20 08:08 03/18/20 08:08 03/18/20 08:08 03/18/20 08:08 Intake & Output 03/17/20 03/18/20 03/19/20 06:59 06:59 06:59 Intake Total 4698 3998 Output Total 2100 4300 Balance 2598 -302 Weight 63 kg 66.7 kg Results Laboratory Results: 03/18/20 06:10 03/18/20 06:10 03/18/20 03/18/20 06:10 06:10 WBC 4.7 RBC 1.34 L Hgb 6.4 L Hct 17.7 L MCV 132 H MCH 47.4 H MCHC 36.0 RDW 16.3 H Plt Count 238 Seg Neutrophils % Not Reportable Sodium 139.3 Potassium 4.3 Chloride 106 Carbon Dioxide 28 Anion Gap 5 BUN 8 Creatinine 0.60 Est GFR ( Amer) > 60 Glucose 106 Calcium 8.8 Total Bilirubin 3.0 H AST 51 H Alkaline Phosphatase 136 H Total Protein 6.4 Albumin 3.8 Impressions: Chest X-Ray 03/10/20 00:00 IMPRESSION: NO ACUTE RADIOGRAPHIC FINDING IN THE CHEST. Assessment & Plan - Diagnosis (1) Ankle ulcer Is this a current diagnosis for this admission?: Yes Plan: Improving, per nurses. Continue daily dressing changes. (2) Anemia, sickle cell with crisis Is this a current diagnosis for this admission?: Yes Plan: No changes today. Labs look better. She should receive EPO tomorrow. Add DVT prophylaxis. - Time Time Spent with patient: Less than 15 minutes
[2020-03-18] MEDS ORDERED: [UNRECOGNIZED DRUG - OTHER] SUBCUT SCH (10:00)
[2020-03-18] MEDS ORDERED: EPOETIN ALFA EPBX SUBCUT SCH (10:00)
[2020-03-18] MEDS ORDERED: DISPOSABLE SUBCUT SCH (10:00)
[2020-03-18] MEDS: CHOLECALCIFEROL (D3) 1,000 UNIT (25 MCG) TABLET PO SCH (10:36)
[2020-03-18] MEDS: GABAPENTIN 300 MG CAPSULE PO SCH ×2 (10:37→21:05)
[2020-03-18] MEDS: OXYCODONE HCL SR 10 MG TABLET PO SCH ×2 (10:37→21:05)
[2020-03-18] MEDS: FOLIC ACID 1 MG TABLET PO SCH (10:38)
[2020-03-18] MEDS: ENOXAPARIN SODIUM INJ 40 MG/0.4 ML DISP.SYRIN SUBCUT SCH (10:39)
[2020-03-18] MEDS: HYDROXYUREA 500 MG CAPSULE PO SCH ×2 (10:49→17:03)
[2020-03-18] MEDS: NORMAL SALINE 1000 ML 1,000 ML with POTASSIUM CHLORIDE 10 MEQ, MAGNESIUM SULFATE 8 MEQ,... IV SCH ×5 (17:03)
--- NOTE | 2020-03-18 20:04 | PDOC PROGRESS REPORT ---
Subjective Progress Note for:: 03/18/20 Subjective:: Patient seen by the bedside no new complaints Reason For Visit: SICKLE CELL CRISIS, ULCER LEFT ANKLE Physical Exam Vital Signs: Temp Pulse Resp BP Pulse Ox 99.2 F 83 18 128/68 H 100 03/18/20 10:56 03/18/20 10:56 03/18/20 10:56 03/18/20 10:56 03/18/20 10:56 Intake & Output 03/17/20 03/18/20 03/19/20 06:59 06:59 06:59 Intake Total 4698 5016 668 Output Total 2100 4300 Balance 2598 716 668 Weight 63 kg 66.7 kg General appearance: PRESENT: no acute distress Eye exam: PRESENT: PERRLA Respiratory exam: PRESENT: clear to auscultation carolyn Cardiovascular exam: PRESENT: +S1, +S2 GI/Abdominal exam: PRESENT: soft Neurological exam: PRESENT: alert Results Laboratory Results: 03/18/20 06:10 03/18/20 06:10 03/18/20 03/18/20 06:10 06:10 WBC 4.7 RBC 1.34 L Hgb 6.4 L Hct 17.7 L MCV 132 H MCH 47.4 H MCHC 36.0 RDW 16.3 H Plt Count 238 Seg Neutrophils % Not Reportable Sodium 139.3 Potassium 4.3 Chloride 106 Carbon Dioxide 28 Anion Gap 5 BUN 8 Creatinine 0.60 Est GFR ( Amer) > 60 Glucose 106 Calcium 8.8 Total Bilirubin 3.0 H AST 51 H Alkaline Phosphatase 136 H Total Protein 6.4 Albumin 3.8 Impressions: Chest X-Ray 03/10/20 00:00 IMPRESSION: NO ACUTE RADIOGRAPHIC FINDING IN THE CHEST. 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
[2020-03-19] MEDS: HYDROMORPHONE HCL INJ/PF 2 MG/ML AMPULE IV PRN ×8 (01:23→21:32)
[2020-03-19] MEDS: PROMETHAZINE HCL INJ 25 MG/1 ML VIAL IV PRN ×4 (01:23→17:57)
[2020-03-19] MEDS: 1/2 NORMAL SALINE 1,000 ML IV PRN ×3 (05:45→21:33)
[2020-03-19] MEDS: DIPHENHYDRAMINE HCL 50 MG/ML VIAL IV PRN ×4 (05:45→21:32)
--- NOTE | 2020-03-19 08:34 | PDOC PROGRESS REPORT ---
Subjective Progress Note for:: 03/19/20 Subjective:: Patient states that her pain is getting worse, especially at night. She is still requesting help to get up and walk. We both believe this will hep her pain more than anything else. She is eating and drinking well. No other complaints. She denies dyspnea or constipation. Reason For Visit: SICKLE CELL CRISIS, ULCER LEFT ANKLE Physical Exam Vital Signs: Temp Pulse Resp BP Pulse Ox 98.9 F 81 18 97/58 L 100 03/18/20 23:48 03/18/20 23:48 03/18/20 23:48 03/18/20 23:48 03/18/20 23:48 Intake & Output 03/18/20 03/19/20 03/20/20 06:59 06:59 06:59 Intake Total 6016 1926 Output Total 4300 1200 Balance 1716 726 Weight 66.7 kg 66.5 kg General appearance: PRESENT: no acute distress Head exam: PRESENT: normocephalic Eye exam: PRESENT: EOMI Respiratory exam: PRESENT: clear to auscultation carolyn, unlabored Cardiovascular exam: PRESENT: RRR GI/Abdominal exam: PRESENT: soft Extremities exam: PRESENT: other - Ankle remains wrapped in josefina bandage.. ABSENT: pedal edema Neurological exam: PRESENT: alert, awake, oriented to person, oriented to place, oriented to time, oriented to situation Psychiatric exam: PRESENT: appropriate affect Skin exam: PRESENT: normal color Results Laboratory Results: 03/18/20 06:10 03/18/20 06:10 03/18/20 06:10 WBC 4.7 RBC 1.34 L Hgb 6.4 L Hct 17.7 L MCV 132 H MCH 47.4 H MCHC 36.0 RDW 16.3 H Plt Count 238 Impressions: Chest X-Ray 03/10/20 00:00 IMPRESSION: NO ACUTE RADIOGRAPHIC FINDING IN THE CHEST. Assessment & Plan - Diagnosis (1) Ankle ulcer Is this a current diagnosis for this admission?: Yes Plan: Continue wet to dry dressings. (2) Anemia, sickle cell with crisis Is this a current diagnosis for this admission?: Yes Plan: I will increase dilaudid slightly today. Her labs are slowly improving. She is due for EPO today. She is receiving DVT prophylaxis. - Time Time Spent with patient: Less than 15 minutes
[2020-03-19] MEDS ORDERED: EPOETIN ALFA-EPBX 40,000 UNIT/ML VIAL (NON-ESRD) SUBCUT ONE (09:00)
[2020-03-19] MEDS: CHOLECALCIFEROL (D3) 1,000 UNIT (25 MCG) TABLET PO SCH (09:58)
[2020-03-19] MEDS: GABAPENTIN 300 MG CAPSULE PO SCH ×2 (09:59→21:31)
[2020-03-19] MEDS: OXYCODONE HCL SR 10 MG TABLET PO SCH ×2 (09:59→21:31)
[2020-03-19] MEDS: FOLIC ACID 1 MG TABLET PO SCH (09:59)
[2020-03-19] MEDS ORDERED: DISPOSABLE SUBCUT SCH (10:00)
[2020-03-19] MEDS ORDERED: [UNRECOGNIZED DRUG - OTHER] SUBCUT SCH (10:00)
[2020-03-19] MEDS ORDERED: EPOETIN ALFA EPBX SUBCUT SCH (10:00)
[2020-03-19] MEDS: ENOXAPARIN SODIUM INJ 40 MG/0.4 ML DISP.SYRIN SUBCUT SCH (10:02)
[2020-03-19] MEDS: HYDROXYUREA 500 MG CAPSULE PO SCH ×2 (10:15→17:49)
[2020-03-19] MEDS: CIPROFLOXACIN 400 MG/D5W RTU 400 MG/200 ML RTUPB IV SCH ×2 (15:55→21:31)
[2020-03-19 16:55] LABS: APPEARANCE,URINE CLEAR; BILIRUBIN,URINE NEGATIVE (NEGATIVE); COLOR,URINE YELLOW; GLUCOSE, URINE NEGATIVE (NEGATIVE); KETONES,URINE NEGATIVE (NEGATIVE); PROTEIN,URINE NEGATIVE (NEGATIVE); URINE SPECIFIC GRAVITY 1.004; UROBILINOGEN,URINE NEGATIVE mg/dL (<2.0)
--- NOTE | 2020-03-19 18:03 | PDOC PROGRESS REPORT ---
Subjective Progress Note for:: 03/19/20 Subjective:: Patient complains of rectal bleed, she also complained of dysuria, she is 50 years old she is yet to obtain screening colonoscopy, I will consult with the surgeon for colonoscopy Reason For Visit: SICKLE CELL CRISIS, ULCER LEFT ANKLE Physical Exam Vital Signs: Temp Pulse Resp BP Pulse Ox 98.8 F 87 16 102/63 100 03/19/20 15:25 03/19/20 15:25 03/19/20 15:25 03/19/20 15:25 03/19/20 15:25 Intake & Output 03/18/20 03/19/20 03/20/20 06:59 06:59 06:59 Intake Total 6016 1926 1440 Output Total 4300 1200 Balance 5218 701 0759 Weight 66.7 kg 66.5 kg General appearance: PRESENT: no acute distress Eye exam: PRESENT: PERRLA Respiratory exam: PRESENT: clear to auscultation carolyn Cardiovascular exam: PRESENT: +S1, +S2 Results Laboratory Results: 03/18/20 06:10 03/18/20 06:10 03/18/20 03/19/20 06:10 16:31 WBC 4.7 RBC 1.34 L Hgb 6.4 L Hct 17.7 L MCV 132 H MCH 47.4 H MCHC 36.0 RDW 16.3 H Plt Count 238 Urine Color YELLOW Urine Appearance CLEAR Urine pH 7.0 Ur Specific [place] 1.004 Urine Protein NEGATIVE Urine Glucose (UA) NEGATIVE Urine Ketones NEGATIVE Urine Blood NEGATIVE Impressions: Chest X-Ray 03/10/20 00:00 IMPRESSION: NO ACUTE RADIOGRAPHIC FINDING IN THE CHEST. 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 Is this a current diagnosis for this admission?: Yes Plan: Continue local dressing (3) Sickle cell anemia Qualifiers: Sickle-cell associated disorders: with unspecified crisis Qualified Code(s): D57.00 - Hb-SS disease with crisis, unspecified; D57.0 - Hb-SS disease with crisis Is this a current diagnosis for this admission?: Yes (4) Rectal bleed Is this a current diagnosis for this admission?: Yes Plan: Consult surgery for colonoscopy (5) Urinary tract infection Qualifiers: Urinary tract infection type: site unspecified Hematuria presence: without hematuria Qualified Code(s): N39.0 - Urinary tract infection, site not sp ecified Is this a current diagnosis for this admission?: Yes Plan: Urine culture empiric antibiotic for UTI, - Time Time Spent with patient: 15-24 minutes Level of Care: MEDICAL Medications reviewed and adjusted accordingly: Yes Anticipated discharge: Home Anticipated DC Timeframe: within 48 hours
--- NOTE | 2020-03-19 19:50 | PDOC CONSULTATION ---
Consultation Consult Date: 03/19/20 Provider Consulted: SURGICAL SURGICALIST Consult reason:: Rectal bleeding History of Present Illness Admission Date/PCP: 03/10/20 15:44 SAVANNA RAMIREZ MD Patient complains of: rectal bleeding History of Present Illness: WILLIE ALAN is a 50 year old female in consultation at the request of Dr. Roberson. This is a patient with a single episode of rectal bleeding yesterday. It filled the toilet with blood, and had blood on the toilet paper. She does have a history of hemorrhoids in the past, but has not suffered from any symptoms recently. The patient has never had a colonoscopy. She denies any change in the caliber of her stools. She is chronically anemic, 8 by report. Currently she reports joint pain, due to her sickle cell crisis. She requires Dilaudid very frequently. She denies shortness of breath or chest pain. She is wearing supplemental oxygen. She does report malaise and fatigue. 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 Denies: HIV Past Surgical History Past Surgical History: Reports: Appendectomy, Section, Cholecystectomy, Orthopedic Surgery - R knee, Tonsillectomy Denies: Amputation, Coronary Artery Bypass Graft, Gastric Bypass Surgery, Herniorrhaphy, Mastectomy, Pacemaker, Tubal Ligation Social History Smoking Status: Former Smoker Electronic Cigarette use?: No Frequency of Alcohol Use: None Hx Recreational Drug Use: No Drugs: None Hx Prescription Drug Abuse: No Family History Family History: Reviewed & Not Pertinent Parental Family History Reviewed: Yes Children Family History Reviewed: Yes Sibling(s) Family History Reviewed.: Yes Medication/Allergy Home Medications: Deferasirox [Jadenu] 360 mg PO DAILY 08/13/19 Epoetin Federico [Procrit Inj 20,000 Unit/1 ml Vial (Renal)] 60,000 unit IJ FR@1000 08/13/19 Folic Acid 1 mg PO DAILY 08/13/19 Gabapentin [Neurontin 300 mg Capsule] 300 mg PO Q12 08/13/19 Hydroxyurea [Hydrea 500 mg Capsule] 500 mg PO TID 08/13/19 Oxycodone HCl [Oxy-Ir 5 mg Tablet] 10 mg PO Q6HP PRN 08/13/19 Cholecalciferol (Vitamin D3) [Vitamin D3 1000 Unit Tablet] 5,000 unit PO DAILY 11/29/19 Oxycodone Myristate [Xtampza ER] 27 mg PO Q12 11/29/19 Ergocalciferol (Vitamin D2) [Drisdol 50,000 unit (1.25MG) Capsule] 50,000 unit PO WE@1000 01/12/20 Multivitamin [Tab-A-Yosvany (Multiple Vitamin) Tablet] 1 tab PO DAILY 01/12/20 Allergies/Adverse Reactions: doxycycline [Doxycycline] Allergy (Severe, Verified 01/11/20 20:15) Review of Systems Constitutional: PRESENT: fatigue. ABSENT: anorexia, chills, fever(s), headache(s) Eyes: ABSENT: visual disturbances Ears: ABSENT: hearing changes Nose, Mouth, and Throat: ABSENT: sore throat Cardiovascular: PRESENT: dyspnea on exertion. ABSENT: chest pain Respiratory: ABSENT: hemoptysis Gastrointestinal: PRESENT: hematochezia. ABSENT: abdominal pain, hematemesis, nausea, vomiting Genitourinary: ABSENT: dysuria Musculoskeletal: ABSENT: back pain Integumentary: ABSENT: pruritus, rash Neurological: ABSENT: confusion, convulsions, dizziness Psychiatric: ABSENT: anxiety, depression Endocrine: ABSENT: cold intolerance, heat intolerance Hematologic/Lymphatic: ABSENT: easy bleeding, easy bruising Physical Exam Vital Signs: Temp Pulse Resp BP Pulse Ox 98.8 F 87 16 102/63 100 03/19/20 15:25 03/19/20 15:25 03/19/20 15:25 03/19/20 15:25 03/19/20 15:25 Intake & Output 03/18/20 03/19/20 03/20/20 06:59 06:59 06:59 Intake Total 6016 1926 1440 Output Total 4300 1200 400 Balance 2477 392 5137 Weight 66.7 kg 66.5 kg General appearance: PRESENT: no acute distress, cooperative. ABSENT: disheveled Head exam: PRESENT: atraumatic, normocephalic Eye exam: ABSENT: scleral icterus Mouth exam: PRESENT: moist, neck supple Neck exam: ABSENT: meningismus, tenderness, thyromegaly, tracheal deviation Respiratory exam: PRESENT: unlabored. ABSENT: tachypnea, wheezes Cardiovascular exam: ABSENT: tachycardia Pulses: PRESENT: normal radial pulses Vascular exam: PRESENT: normal capillary refill GI/Abdominal exam: PRESENT: soft. ABSENT: distended, tenderness Rectal exam: PRESENT: deferred Extremities exam: ABSENT: clubbing Neurological exam: PRESENT: alert, awake, oriented to person, oriented to place, oriented to time, oriented to situation, CN II-XII grossly intact Psychiatric exam: ABSENT: agitated, anxious, depressed Focused psych exam: ABSENT: delusional Skin exam: ABSENT: cyanosis, erythema, jaundice Results Laboratory Results: 03/18/20 06:10 03/18/20 06:10 03/18/20 03/19/20 06:10 16:31 WBC 4.7 RBC 1.34 L Hgb 6.4 L Hct 17.7 L MCV 132 H MCH 47.4 H MCHC 36.0 RDW 16.3 H Plt Count 238 Urine Color YELLOW Urine Appearance CLEAR Urine pH 7.0 Ur Specific [place] 1.004 Urine Protein NEGATIVE Urine Glucose (UA) NEGATIVE Urine Ketones NEGATIVE Urine Blood NEGATIVE Impressions: Chest X-Ray 03/10/20 00:00 IMPRESSION: NO ACUTE RADIOGRAPHIC FINDING IN THE CHEST. Assessment & Plan - Diagnosis (1) Rectal bleed Is this a current diagnosis for this admission?: Yes - Plan Summary Plan Summary: 50-year-old female with a single episode of rectal bleeding. She has never had a colonoscopy. Surgery has been consulted to perform a colonoscopy. The patient currently is in a sickle cell crisis. Her hemoglobin is 6.4. I have discussed the case at length with Dr. Ramirez. She feels that the patient is slow ly improving, and a colonoscopy would be safe (in relation to her hemoglobin level). Plan for bowel prep tomorrow (the patient has refused for tonight). Colonoscopy on Tuesday. Surgery will continue to follow closely with you.
[2020-03-20] MEDS: PROMETHAZINE HCL INJ 25 MG/1 ML VIAL IV PRN ×6 (00:01→23:42)
[2020-03-20] MEDS: DIPHENHYDRAMINE HCL 50 MG/ML VIAL IV PRN ×4 (02:51→21:23)
[2020-03-20] MEDS: HYDROMORPHONE HCL INJ/PF 2 MG/ML AMPULE IV PRN ×10 (02:52→23:42)
[2020-03-20] MEDS: 1/2 NORMAL SALINE 1,000 ML IV PRN ×2 (06:30→17:23)
--- NOTE | 2020-03-20 07:50 | PDOC PROGRESS REPORT ---
Subjective Progress Note for:: 03/20/20 Subjective:: Patient states that she is feeling better today. She was able to walk a short distance yesterday. She would like for physical therapy to work with her more often. Reason For Visit: SICKLE CELL CRISIS, ULCER LEFT ANKLE Physical Exam Vital Signs: Temp Pulse Resp BP Pulse Ox 98.3 F 88 18 91/51 L 99 03/20/20 00:27 03/20/20 00:27 03/20/20 00:27 03/20/20 00:27 03/20/20 06:00 Intake & Output 03/19/20 03/20/20 03/21/20 06:59 06:59 06:59 Intake Total 1926 3640 Output Total 1200 2500 Balance 726 1140 Weight 66.5 kg 64.7 kg General appearance: PRESENT: no acute distress, well-developed, well-nourished Head exam: PRESENT: normocephalic Eye exam: PRESENT: EOMI Respiratory exam: PRESENT: unlabored Extremities exam: PRESENT: other - Ankle remains in josefina bandage. Neurological exam: PRESENT: alert, awake, oriented to person, oriented to place, oriented to time, oriented to situation Psychiatric exam: PRESENT: appropriate affect Skin exam: PRESENT: normal color Results Laboratory Results: 03/18/20 06:10 03/18/20 06:10 03/18/20 03/19/20 06:10 16:31 WBC 4.7 RBC 1.34 L Hgb 6.4 L Hct 17.7 L MCV 132 H MCH 47.4 H MCHC 36.0 RDW 16.3 H Plt Count 238 Urine Color YELLOW Urine Appearance CLEAR Urine pH 7.0 Ur Specific [place] 1.004 Urine Protein NEGATIVE Urine Glucose (UA) NEGATIVE Urine Ketones NEGATIVE Urine Blood NEGATIVE Impressions: Chest X-Ray 03/10/20 00:00 IMPRESSION: NO ACUTE RADIOGRAPHIC FINDING IN THE CHEST. Assessment & Plan - Diagnosis (1) Ankle ulcer Is this a current diagnosis for this admission?: Yes Plan: Continue wet to dry dressings. (2) Anemia, sickle cell with crisis Is this a current diagnosis for this admission?: Yes Plan: Continue pain medication without changes today. I will repeat labs tomorrow. (3) Rectal bleed Is this a current diagnosis for this admission?: Yes Plan: I agree with plans for colonoscopy as she is 50 YO and has never had screening. She also had 1 episode of blood in stool. - Time Time Spent with patient: Less than 15 minutes - Plan Summary Plan Summary: She remains on antibiotics emperically.
[2020-03-20] MEDS ORDERED: POLYETHYLENE GLYCOL 3350 POWDER 17 GM/1 PACKET PO ONE (08:00)
--- NOTE | 2020-03-20 09:28 | PDOC PROGRESS REPORT ---
Subjective Progress Note for:: 03/20/20 Subjective:: No complaints, the patient does not report any additional episodes of hematochezia Reason For Visit: SICKLE CELL CRISIS, ULCER LEFT ANKLE Physical Exam Vital Signs: Temp Pulse Resp BP Pulse Ox 98.6 F 77 16 94/67 L 99 03/20/20 07:24 03/20/20 07:24 03/20/20 07:24 03/20/20 07:24 03/20/20 07:24 Intake & Output 03/19/20 03/20/20 03/21/20 06:59 06:59 06:59 Intake Total 1926 3640 Output Total 1200 2500 Balance 726 1140 Weight 66.5 kg 64.7 kg General appearance: PRESENT: no acute distress, obese, well-nourished Respiratory exam: PRESENT: clear to auscultation carolyn Cardiovascular exam: PRESENT: RRR GI/Abdominal exam: PRESENT: soft Results Laboratory Results: 03/18/20 06:10 03/18/20 06:10 03/19/20 16:31 Urine Color YELLOW Urine Appearance CLEAR Urine pH 7.0 Ur Specific [place] 1.004 Urine Protein NEGATIVE Urine Glucose (UA) NEGATIVE Urine Ketones NEGATIVE Urine Blood NEGATIVE Impressions: Chest X-Ray 03/10/20 00:00 IMPRESSION: NO ACUTE RADIOGRAPHIC FINDING IN THE CHEST. Assessment & Plan - Diagnosis (1) Rectal bleed Is this a current diagnosis for this admission?: Yes (2) Anemia Qualifiers: 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 Qualified Code(s): D58.2 - Other hemoglobinopathies Is this a current diagnosis for this admission?: Yes (3) Anemia, sickle cell with crisis Is this a current diagnosis for this admission?: Yes - Time Anticipated Discharge Disposition: Home with Home Health Anticipated Discharge Timeframe: When okay per with PCP - Plan Summary Plan Summary: Assessment: Patient with sickle cell disease Anemia: hemoglobin/hematocrit 6.4 and 17.7, respectively today Patient has had one episode of hematochezia during this hospitalization with drop of the H&H Patient with low blood pressure (24/56), chronic according to the patient and today oncologist Dr. Osborn Patient requiring a large amount of narcotics to control her sickle cell disease pain (6 mg of Dilaudid every 2 hours) This large amount of narcotics is a concern concern about patient safety Plan: Bowel prep today for EGD /colonoscopy with biopsy tomorrow Consent obtained, procedure, risks, benefits, complications, explained to the patient, her questions were answered, she decides to proceed N.p.o. after midnight iv fluids Pharmacy to address the large amount of narcotics administered to the patient
[2020-03-20] MEDS ORDERED: BISACODYL 5 MG TABEC PO SCH (09:30)
[2020-03-20] MEDS: CHOLECALCIFEROL (D3) 1,000 UNIT (25 MCG) TABLET PO SCH (09:40)
[2020-03-20] MEDS: OXYCODONE HCL SR 10 MG TABLET PO SCH ×2 (09:40→21:25)
[2020-03-20] MEDS: FOLIC ACID 1 MG TABLET PO SCH (09:44)
[2020-03-20] MEDS: HYDROXYUREA 500 MG CAPSULE PO SCH ×2 (09:44→17:20)
[2020-03-20] MEDS: GABAPENTIN 300 MG CAPSULE PO SCH ×2 (09:44→21:25)
[2020-03-20] MEDS: CIPROFLOXACIN 400 MG/D5W RTU 400 MG/200 ML RTUPB IV SCH ×2 (09:44→21:24)
[2020-03-20] MEDS ORDERED: MAGNESIUM CITRATE 296 ML BOTTLE PO ONE (19:30)
--- NOTE | 2020-03-20 21:57 | PDOC PROGRESS REPORT ---
Subjective Progress Note for:: 03/20/20 Subjective:: She is scheduled for colonoscopy tomorrow Reason For Visit: SICKLE CELL CRISIS, ULCER LEFT ANKLE Physical Exam Vital Signs: Temp Pulse Resp BP Pulse Ox 99.4 F 89 18 98/56 L 92 03/20/20 19:30 03/20/20 19:30 03/20/20 19:30 03/20/20 19:30 03/20/20 19:30 Intake & Output 03/19/20 03/20/20 03/21/20 06:59 06:59 06:59 Intake Total 1926 3640 1200 Output Total 1200 2500 Balance 726 1140 1200 Weight 66.5 kg 64.7 kg General appearance: PRESENT: no acute distress Eye exam: PRESENT: PERRLA Respiratory exam: PRESENT: clear to auscultation caorlyn Cardiovascular exam: PRESENT: +S1, +S2 GI/Abdominal exam: PRESENT: soft Neurological exam: PRESENT: alert Results Laboratory Results: 03/18/20 06:10 03/18/20 06:10 Impressions: Chest X-Ray 03/10/20 00:00 IMPRESSION: NO ACUTE RADIOGRAPHIC FINDING IN THE CHEST. 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 Is this a current diagnosis for this admission?: Yes Plan: Continue local dressing (3) Sickle cell anemia Qualifiers: Sickle-cell associated disorders: with unspecified crisis Qualified Code(s): D57.00 - Hb-SS disease with crisis, unspecified; D57.0 - Hb-SS disease with crisis Is this a current diagnosis for this admission?: Yes (4) Rectal bleed Is this a current diagnosis for this admission?: Yes (5) Urinary tract infection Qualifiers: Urinary tract infection type: site unspecified Hematuria presence: without hematuria Qualified Code(s): N39.0 - Urinary tract infection, site not specified Is this a current diagnosis for this admission?: Yes Plan: continue antibiotic for UTI, - Time Time Spent with patient: 25-34 minutes Level of Care: IMCU Medications reviewed and adjusted accordingly: Yes Anticipated discharge: Home Anticipated DC Timeframe: within 72 hours
[2020-03-21] MEDS: DIPHENHYDRAMINE HCL 50 MG/ML VIAL IV PRN ×3 (01:42→20:21)
[2020-03-21] MEDS: HYDROMORPHONE HCL INJ/PF 2 MG/ML AMPULE IV PRN ×8 (01:42→22:28)
[2020-03-21] MEDS: 1/2 NORMAL SALINE 1,000 ML IV PRN ×3 (01:42→18:21)
[2020-03-21] MEDS ORDERED: NA PHOS,M-B/NA PHOS,DI-BA (ADULT) 133 ML ENEMA PR ONE (05:00)
[2020-03-21] MEDS ORDERED: MAGNESIUM CITRATE 296 ML BOTTLE PO ONE (06:15)
[2020-03-21] MEDS ORDERED: PROPOFOL INJ 200 MG/20 ML VIAL IV ONE (06:25)
[2020-03-21] MEDS: PROMETHAZINE HCL INJ 25 MG/1 ML VIAL IV PRN ×2 (08:04→22:28)
--- NOTE | 2020-03-21 08:12 | PDOC PROGRESS REPORT ---
Subjective Progress Note for:: 03/21/20 Subjective:: Patient states that pain is worse again today. She is still working on bowel prep for colonoscopy later today. No other complaints. Reason For Visit: SICKLE CELL CRISIS, ULCER LEFT ANKLE Physical Exam Vital Signs: Temp Pulse Resp BP Pulse Ox 99.6 F 90 18 95/57 L 97 03/20/20 23:05 03/20/20 23:05 03/20/20 23:05 03/20/20 23:05 03/21/20 05:05 Intake & Output 03/20/20 03/21/20 03/22/20 06:59 06:59 06:59 Intake Total 3640 3220 Output Total 2500 Balance 1140 3220 Weight 64.7 kg 64.5 kg General appearance: PRESENT: no acute distress Head exam: PRESENT: normocephalic Eye exam: PRESENT: EOMI Respiratory exam: PRESENT: unlabored Extremities exam: PRESENT: other - No change from previous. Musculoskeletal exam: PRESENT: other - Chronic joint changes. Nothing new. Neurological exam: PRESENT: alert, awake, oriented to person, oriented to place, oriented to time, oriented to situation Psychiatric exam: PRESENT: appropriate affect Skin exam: PRESENT: normal color Results Laboratory Results: 03/18/20 06:10 03/18/20 06:10 Impressions: Chest X-Ray 03/10/20 00:00 IMPRESSION: NO ACUTE RADIOGRAPHIC FINDING IN THE CHEST. Assessment & Plan - Diagnosis (1) Ankle ulcer Is this a current diagnosis for this admission?: Yes Plan: Continue dressing changes. (2) Anemia, sickle cell with crisis Is this a current diagnosis for this admission?: Yes Plan: No changes today. Await AM labs today. She received EPO Wed. (3) Rectal bleed Is this a current diagnosis for this admission?: Yes Plan: For colonoscopy later today. - Time Time Spent with patient: Less than 15 minutes
--- NOTE | 2020-03-21 08:52 | PDOC PROGRESS REPORT ---
Subjective Progress Note for:: 03/21/20 Subjective:: Patient not very compliant with her bowel prep Reason For Visit: SICKLE CELL CRISIS, ULCER LEFT ANKLE Physical Exam Vital Signs: Temp Pulse Resp BP Pulse Ox 99.8 F 93 20 102/53 L 93 03/21/20 08:00 03/21/20 08:00 03/21/20 08:00 03/21/20 08:00 03/21/20 08:00 Intake & Output 03/20/20 03/21/20 03/22/20 06:59 06:59 06:59 Intake Total 3640 3220 Output Total 2500 Balance 1140 3220 Weight 64.7 kg 64.5 kg General appearance: PRESENT: no acute distress, obese GI/Abdominal exam: PRESENT: soft Results Laboratory Results: 03/18/20 06:10 03/18/20 06:10 Impressions: Chest X-Ray 03/10/20 00:00 IMPRESSION: NO ACUTE RADIOGRAPHIC FINDING IN THE CHEST. Assessment & Plan - Diagnosis (1) Rectal bleed Is this a current diagnosis for this admission?: Yes (2) Anemia Qualifiers: 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 Qualified Code(s): D58.2 - Other hemoglobinopathies Is this a current diagnosis for this admission?: Yes (3) Anemia, sickle cell with crisis Is this a current diagnosis for this admission?: Yes - Time Anticipated Discharge Disposition: Home with Home Health Anticipated Discharge Timeframe: As per PCP - Plan Summary Plan Summary: Assessment: Sickle cell disease Sickle cell crisis resolving Episode of hematochezia as inpatient H&H 6.4 and 17.7, respectively today Patient not very compliant with her bowel prep; she has now completed the third bottle of magnesium citrate and she is still doing a fair amount of brown stools None: EGD and colonoscopy with biopsy today if bowel prep is adequate If bowel prep is inadequate, will continue magnesium citrate or GoLYTELY bowel prep today for possible EGD colonoscopy tomorrow
--- NOTE | 2020-03-21 09:11 | Progress Note ---
Provider Note Provider Note: Events noted. Patient noncompliant with bowel prep and she is not ready for EGD colonoscopy today Resume clear liquid diet N.p.o. after midnight Continue bowel prep today with 2 more bottles of magnesium citrate We will attempt to schedule EGD colonoscopy for tomorrow if colon is prepped
[2020-03-21] MEDS ORDERED: BISACODYL 5 MG TABEC PO PRN (09:12)
[2020-03-21] MEDS ORDERED: MAGNESIUM CITRATE 296 ML BOTTLE PO PRN (10:00)
[2020-03-21] MEDS: CIPROFLOXACIN 400 MG/D5W RTU 400 MG/200 ML RTUPB IV SCH ×2 (10:45→21:47)
[2020-03-21] MEDS: HYDROXYUREA 500 MG CAPSULE PO SCH ×2 (10:46→18:14)
[2020-03-21] MEDS: OXYCODONE HCL SR 10 MG TABLET PO SCH ×2 (10:46→21:45)
[2020-03-21] MEDS: CHOLECALCIFEROL (D3) 1,000 UNIT (25 MCG) TABLET PO SCH (10:47)
[2020-03-21] MEDS: GABAPENTIN 300 MG CAPSULE PO SCH ×2 (10:47→21:45)
[2020-03-21] MEDS: FOLIC ACID 1 MG TABLET PO SCH (10:47)
[2020-03-21 11:49] LABS: HEMATOCRIT 21.8 % (36.0-47.0); MEAN CORPUSCULAR HEMOGLOBIN 47.9 pg (27.0-33.4); MEAN CORPUSCULAR HGB CONC 36.1 g/dL (32.0-36.0); MEAN CORPUSCULAR VOLUME 133 fl (80-97); PLATELET COUNT 255 10^3/uL (150-450); RED BLOOD COUNT 1.64 10^6/uL (3.72-5.28); RED CELL DISTRIBUTION WIDTH 16.6 % (11.5-14.0); WHITE BLOOD COUNT 7.4 10^3/uL (4.0-10.5)
[2020-03-21 11:55] LABS: ALBUMIN 4.5 g/dL (3.5-5.0); ALKALINE PHOSPHATASE 205 U/L (38-126); ANION GAP 12 (5-19); ASPARTATE AMINO TRANSFERASE 219 U/L (14-36); BILIRUBIN,TOTAL 5.5 mg/dL (0.2-1.3); BLOOD UREA NITROGEN 6 mg/dL (7-20); CALCIUM 9.3 mg/dL (8.4-10.2); CARBON DIOXIDE 24 mmol/L (22-30); CHLORIDE 100 mmol/L (98-107); GLUCOSE 169 mg/dL (75-110); POTASSIUM 4.7 mmol/L (3.6-5.0); TOTAL PROTEIN 7.7 g/dL (6.3-8.2)
[2020-03-21 12:03] LABS: HEMOGLOBIN 7.9 g/dL (12.0-15.5)
[2020-03-21 12:16] LABS: ABSOLUTE LYMPHOCYTES# (MANUAL) 1.6 10^3/uL (0.5-4.7); ABSOLUTE MONOCYTES # (MANUAL) 0.1 10^3/uL (0.1-1.4); BASOPHILS % (MANUAL) 0 % (0-2); EOSINOPHILS % (MANUAL) 0 % (0-6); LYMPHOCYTES % (MANUAL) 21 % (13-45); MONOCYTES % (MANUAL) 1 % (3-13); NUCLEATED RED BLOOD CELLS 24 /100 WBC (0); SEGMENTED NEUTROPHILS % (MAN) 78 % (42-78); TOTAL CELLS COUNTED 100
[2020-03-21 12:19] LABS: ANISOCYTOSIS 2+; HOWELL-JOLLY BODIES PRESENT; PAPPENHEIMER BODIES PRESENT; PLATELET COMMENT ADEQUATE; POIKILOCYTOSIS 1+; POLYCHROMASIA SLIGHT; SCHISTOCYTES SLIGHT; SICKLE RED CELLS SLIGHT
--- NOTE | 2020-03-21 21:40 | PDOC PROGRESS REPORT ---
Subjective Progress Note for:: 03/21/20 Subjective:: Patient is alert poor colon prep not able to have colonoscopy today Reason For Visit: SICKLE CELL CRISIS, ULCER LEFT ANKLE Physical Exam Vital Signs: Temp Pulse Resp BP Pulse Ox 99.2 F 65 18 96/52 L 98 03/21/20 19:21 03/21/20 19:21 03/21/20 19:21 03/21/20 19:21 03/21/20 19:21 Intake & Output 03/20/20 03/21/20 03/22/20 06:59 06:59 06:59 Intake Total 3640 3220 2320 Output Total 2500 Balance 1140 3220 2320 Weight 64.7 kg 64.5 kg General appearance: PRESENT: no acute distress Eye exam: PRESENT: PERRLA Respiratory exam: PRESENT: clear to auscultation carolyn Cardiovascular exam: PRESENT: +S1, +S2 GI/Abdominal exam: PRESENT: soft Results Laboratory Results: 03/21/20 10:54 03/21/20 10:54 03/21/20 03/21/20 10:54 10:54 WBC 7.4 RBC 1.64 L Hgb 7.9 L Hct 21.8 L MCV 133 H MCH 47.9 H MCHC 36.1 H RDW 16.6 H Plt Count 255 Seg Neutrophils % Not Reportable Sodium 136.2 L Potassium 4.7 Chloride 100 Carbon Dioxide 24 Anion Gap 12 BUN 6 L Creatinine 0.65 Est GFR ( Amer) > 60 Glucose 169 H Calcium 9.3 Total Bilirubin 5.5 H AST 219 H Alkaline Phosphatase 205 H Total Protein 7.7 Albumin 4.5 Impressions: Chest X-Ray 03/10/20 00:00 IMPRESSION: NO ACUTE RADIOGRAPHIC FINDING IN THE CHEST. 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 Is this a current diagnosis for this admission?: Yes Plan: Continue local dressing (3) Sickle cell anemia Qualifiers: Sickle-cell associated disorders: with unspecified crisis Qualified Code(s): D57.00 - Hb-SS disease with crisis, unspecified; D57.0 - Hb-SS disease with crisis Is this a current diagnosis for this admission?: Yes (4) Rectal bleed Is this a current diagnosis for this admission?: Yes (5) Urinary tract infection Qualifiers: Urinary tract infection type: site unspecified Hematuria presence: without hematuria Qualified Code(s): N39.0 - Urinary tract infection, site not specified Is this a current diagnosis for this admission?: Yes Plan: continue antibiotic for UTI, - Time Time Spent with patient: 25-34 minutes Level of Care: MEDICAL Anticipated discharge: Home Anticipated DC Timeframe: Other
[2020-03-22] MEDS: HYDROMORPHONE HCL INJ/PF 2 MG/ML AMPULE IV PRN ×7 (00:35→22:59)
[2020-03-22] MEDS: DIPHENHYDRAMINE HCL 50 MG/ML VIAL IV PRN ×5 (00:35→22:59)
[2020-03-22] MEDS: 1/2 NORMAL SALINE 1,000 ML IV PRN ×3 (01:46→16:19)
[2020-03-22] MEDS: NA PHOS,M-B/NA PHOS,DI-BA (ADULT) 133 ML ENEMA PR SCH (05:07)
[2020-03-22] MEDS: PROMETHAZINE HCL INJ 25 MG/1 ML VIAL IV PRN ×3 (07:37→20:44)
[2020-03-22] MEDS ORDERED: INFLUENZA QUAD (6MOS+) 2020-21 VAC 0.5 ML SYR IM ONE (08:00)
[2020-03-22] MEDS: HYDROXYUREA 500 MG CAPSULE PO SCH ×2 (09:14→17:11)
[2020-03-22] MEDS: CIPROFLOXACIN 400 MG/D5W RTU 400 MG/200 ML RTUPB IV SCH ×2 (09:14→21:19)
[2020-03-22] MEDS: OXYCODONE HCL SR 10 MG TABLET PO SCH ×2 (09:14→21:18)
[2020-03-22] MEDS: GABAPENTIN 300 MG CAPSULE PO SCH ×2 (09:14→21:18)
[2020-03-22] MEDS: FOLIC ACID 1 MG TABLET PO SCH (09:14)
[2020-03-22] MEDS: CHOLECALCIFEROL (D3) 1,000 UNIT (25 MCG) TABLET PO SCH (09:14)
[2020-03-22] MEDS ORDERED: PROPOFOL INJ 200 MG/20 ML VIAL IV ONE (10:36)
[2020-03-22] MEDS ORDERED: LIDOCAINE 2% INJ-PF (20 MG/ML) 10 ML AMPUL ONE (10:36)
[2020-03-22] MEDS ORDERED: MIDAZOLAM 2 MG/2 ML INJ ONE (10:36)
[2020-03-22] MEDS ORDERED: EPINEPHRINE INJ 1 MG/10 ML DISP.SYRIN ONE (11:09)
[2020-03-22] MEDS ORDERED: MEPERIDINE HCL/PF INJ 25 MG/1 ML DISP.SYRIN IV PRN (11:29)
[2020-03-22] MEDS ORDERED: ONDANSETRON HCL INJ/PF 4 MG/2 ML SDV IV PRN (11:29)
[2020-03-22] MEDS ORDERED: DIPHENHYDRAMINE HCL 50 MG/ML VIAL IV PRN (11:29)
[2020-03-22] MEDS ORDERED: PROMETHAZINE HCL INJ 25 MG/1 ML VIAL IV PRN ×2 (11:29)
[2020-03-22] MEDS ORDERED: FENTANYL CITRATE INJ/PF 100 MCG/2 ML AMPUL IV PRN ×3 (11:29)
[2020-03-22] MEDS ORDERED: OXYCODONE-ACETAMINOPHEN 5-325 MG TABLET PO PRN ×2 (11:29)
--- NOTE | 2020-03-22 11:29 | PDOC PROGRESS REPORT ---
Subjective Progress Note for:: 03/22/20 Subjective:: Patient being plan for scope today. Reducing Dilaudid to 5 mg every 2 hours. Reason For Visit: SICKLE CELL CRISIS, ULCER LEFT ANKLE Physical Exam Vital Signs: Temp Pulse Resp BP Pulse Ox 98.4 F 75 16 94/51 L 100 03/22/20 07:10 03/22/20 07:10 03/22/20 07:10 03/22/20 07:10 03/22/20 09:10 Intake & Output 03/21/20 03/22/20 03/23/20 06:59 06:59 06:59 Intake Total 3220 4220 1200 Balance 3220 4220 1200 Weight 64.5 kg 65.7 kg General appearance: PRESENT: no acute distress, well-developed, well-nourished Head exam: PRESENT: atraumatic, normocephalic Eye exam: PRESENT: conjunctiva pink, EOMI, PERRLA. ABSENT: scleral icterus Ear exam: PRESENT: normal external ear exam Mouth exam: PRESENT: moist, tongue midline Neck exam: ABSENT: carotid bruit, JVD, lymphadenopathy, thyromegaly Respiratory exam: PRESENT: clear to auscultation carolyn. ABSENT: rales, rhonchi, wheezes Cardiovascular exam: PRESENT: RRR. ABSENT: diastolic murmur, rubs, systolic murmur Pulses: PRESENT: normal dorsalis pedis pul Vascular exam: PRESENT: normal capillary refill GI/Abdominal exam: PRESENT: normal bowel sounds, soft. ABSENT: distended, guarding, mass, organolmegaly, rebound, tenderness Rectal exam: PRESENT: deferred Extremities exam: PRESENT: full ROM. ABSENT: calf tenderness, clubbing, pedal edema Neurological exam: PRESENT: alert, awake, oriented to person, oriented to place, oriented to time, oriented to situation, CN II-XII grossly intact. ABSENT: motor sensory deficit Psychiatric exam: PRESENT: appropriate affect, normal mood. ABSENT: homicidal ideation, suicidal ideation Skin exam: PRESENT: dry, intact, warm. ABSENT: cyanosis, rash Results Laboratory Results: 03/21/20 10:54 03/21/20 10:54 03/21/20 03/21/20 10:54 10:54 WBC 7.4 RBC 1.64 L Hgb 7.9 L Hct 21.8 L MCV 133 H MCH 47.9 H MCHC 36.1 H RDW 16.6 H Plt Count 255 Seg Neutrophils % Not Reportable Sodium 136.2 L Potassium 4.7 Chloride 100 Carbon Dioxide 24 Anion Gap 12 BUN 6 L Creatinine 0.65 Est GFR ( Amer) > 60 Glucose 169 H Calcium 9.3 Total Bilirubin 5.5 H AST 219 H Alkaline Phosphatase 205 H Total Protein 7.7 Albumin 4.5 Impressions: Chest X-Ray 03/10/20 00:00 IMPRESSION: NO ACUTE RADIOGRAPHIC FINDING IN THE CHEST. 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
--- NOTE | 2020-03-22 12:05 | Operative Report ---
Nonrecallable Operative Report DATE OF SURGERY: 03/22/20 PREOPERATIVE DIAGNOSIS: Hematochezia POSTOPERATIVE DIAGNOSIS: Hematochezia OPERATION: Esophagogastroduodenoscopy and colonoscopy SURGEON: MARIO MCGARRY ANESTHESIA: Moderate Sedation TISSUE REMOVED OR ALTERED: None COMPLICATIONS: None ESTIMATED BLOOD LOSS: 5 cc INTRAOPERATIVE FINDINGS: See note PROCEDURE: Patient was brought to the operating room in awake alert stable condition placed on the operative in supine position given IV sedation she was then placed in left lateral decubitus position. After appropriate timeout site verification the procedure commenced. The Olympus gastroscope was passed into the posterior pharynx and easily traversed the upper esophageal sphincters into the esophagus we then passed the scope through the esophagus into the stomach and noted distal esophagitis. The stomach appeared to have some old heme but there was no evidence of any active bleeding or ulcerations of any of the mucosal surfaces of the fundus body antrum. As we approach the pylorus we did notice some distal gastritis as well as duodenitis. The scope was passed into the duodenum and passed into the duodenum approximately to the second portion of the duodenum. As we slowly withdrew the scope we did not see any active bleeding nor evidence of deep ulcerations there was some duodenitis and the scope then passed back into the antrum that also appeared to be relatively normal except for some mild distal gastritis. The scope was then retroflexed and identified a moderate sized hiatal hernia but no further evidence of any abnormality in the fundus of the stomach. The scope was then slowly withdrawn back to the esophagus again noting the distal esophagitis. The scope was then slowly withdrawn. The scopes were then changed and the second portion of the procedure the colonoscopy was being prepared. The Olympus colonoscope was passed into the patient's rectum the adequacy of the bowel prep was marginal. The scope slowly advanced through the rectum into the sigmoid colon descending colon to the splenic flexure hepati transverse colon hepatic flexure and then into the cecum. The cecum was visualized. As we slowly withdrew the scope the ascending colon was examined there was no evidence of any bleeding or polyps nor mucosal abnormalities we passed the hepatic flexure into the transverse colon again that appeared to be normal without evidence of bleeding or polyps. The scope was then slowly withdrawn to the splenic flexure and then the descending colon was examined also appeared to be normal without evidence of diverticulosis nor polyps no evidence of any bleeding. The patient did have grade 2 hemorr hoids. The scope was withdrawn. Impression distal esophagitis gastritis and duodenitis. Colonoscopy without evidence of any pathology. Recommendations would start the patient on proton pump inhibitors and Carafate. I did not identify any acute source of bleeding during this examination. Please reconsult surgery as necessary.
--- NOTE | 2020-03-22 13:25 | PDOC PROGRESS REPORT ---
Subjective Progress Note for:: 03/22/20 Subjective:: Post EGD and Colonoscopy. No more rectal bleeding. No chest pain or difficulty with breathing. No fever or chills/. Reason For Visit: SICKLE CELL CRISIS, ULCER LEFT ANKLE Physical Exam Vital Signs: Temp Pulse Resp BP Pulse Ox 97.8 F 75 12 90/55 L 100 03/22/20 12:28 03/22/20 12:28 03/22/20 12:28 03/22/20 12:28 03/22/20 12:28 Intake & Output 03/21/20 03/22/20 03/23/20 06:59 06:59 06:59 Intake Total 3220 4220 2100 Output Total 0 Balance 3220 4220 2100 Weight 64.5 kg 65.7 kg General appearance: PRESENT: no acute distress Head exam: PRESENT: atraumatic, normocephalic Eye exam: PRESENT: conjunctiva pink Mouth exam: PRESENT: moist Respiratory exam: PRESENT: clear to auscultation carolyn Cardiovascular exam: PRESENT: RRR. ABSENT: diastolic murmur, rubs, systolic murmur Vascular exam: ABSENT: pallor GI/Abdominal exam: PRESENT: normal bowel sounds, soft. ABSENT: tenderness Extremities exam: ABSENT: pedal edema Skin exam: PRESENT: dry, warm, other - left ankle ulcer Results Laboratory Results: 03/21/20 10:54 03/21/20 10:54 Impressions: Chest X-Ray 03/10/20 00:00 IMPRESSION: NO ACUTE RADIOGRAPHIC FINDING IN THE CHEST. 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 Is this a current diagnosis for this admission?: Yes Plan: Continue pain management as per oncology team recommendation. (2) Sickle cell anemia Qualifiers: Sickle-cell associated disorders: with unspecified crisis Qualified Code(s): D57.00 - Hb-SS disease with crisis, unspecified; D57.0 - Hb-SS disease with crisis Is this a current diagnosis for this admission?: Yes Plan: Continue to monitor her hemoglobin level. Presently fair and no need for blood transfusion due to her iron overload issue. (3) Urinary tract infection Qualifiers: Urinary tract infection type: acute cystitis Hematuria presence: without hematuria Qualified Code(s): N30.00 - Acute cystitis without hematuria Is this a current diagnosis for this admission?: Yes Plan: Continue antibiotic therapy. 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 (5) Rectal bleed Is this a current diagnosis for this admission?: Yes Plan: No identified source of active or recent bleeding on EGD ad colonoscopy. (6) Gastritis and duodenitis Is this a current diagnosis for this admission?: Yes Plan: Start on Pantoprazole 40 mg po q12. - Time Time Spent with patient: 25-34 minutes Level of Care: MEDICAL Medications reviewed and adjusted accordingly: Yes Anticipated discharge: Home with Homehealth Anticipated DC Timeframe: within 72 hours - Inpatient Certification Based on my medical assessment, after consideration of the patient's comorbidities, presenting symptoms, or acuity I expect that the services needed warrant INPATIENT care.: Yes I certify that my determination is in accordance with my understanding of Medicare's requirements for reasonable and necessary INPATIENT services [42 CFR 412.3e].: Yes Medical Necessity: Significant Comorbidiites Make Outpatient Treatment Too Risky, Need Close Monitoring Due to Risk of Patient Decompensation, Need For IV Fluids, Need For Continuous Telemetry Monitoring, Need for Pain Control, Need for IV Antibiotics, Risk of Complication if Not Cared For in Hospital, Risk of Diagnosis Which Will Require Inpatient Eval/Care/Monitoring Post Hospital Care: D/C T[employer] Drier Documentation - Plan Summary Plan Summary: Continue current medication management.
[2020-03-22] MEDS ORDERED: HYDROMORPHONE HCL INJ/PF 2 MG/ML AMPULE IV ONE (13:45)
[2020-03-22] MEDS: PANTOPRAZOLE SODIUM 40 MG TABLET.DR PO SCH (16:18)
[2020-03-23] MEDS: HYDROMORPHONE HCL INJ/PF 2 MG/ML AMPULE IV PRN ×9 (01:07→21:09)
[2020-03-23] MEDS: 1/2 NORMAL SALINE 1,000 ML IV PRN ×3 (02:19→18:51)
[2020-03-23] MEDS: DIPHENHYDRAMINE HCL 50 MG/ML VIAL IV PRN ×4 (03:11→18:54)
[2020-03-23] MEDS: PANTOPRAZOLE SODIUM 40 MG TABLET.DR PO SCH ×2 (05:13→16:46)
[2020-03-23] MEDS: PROMETHAZINE HCL INJ 25 MG/1 ML VIAL IV PRN ×4 (05:20→21:10)
[2020-03-23] MEDS: CIPROFLOXACIN 400 MG/D5W RTU 400 MG/200 ML RTUPB IV SCH ×2 (10:37→21:10)
[2020-03-23] MEDS: OXYCODONE HCL SR 10 MG TABLET PO SCH ×2 (10:38→21:10)
[2020-03-23] MEDS: CHOLECALCIFEROL (D3) 1,000 UNIT (25 MCG) TABLET PO SCH (10:38)
[2020-03-23] MEDS: FOLIC ACID 1 MG TABLET PO SCH (10:38)
[2020-03-23] MEDS: GABAPENTIN 300 MG CAPSULE PO SCH ×2 (10:38→21:10)
[2020-03-23] MEDS: NA PHOS,M-B/NA PHOS,DI-BA (ADULT) 133 ML ENEMA PR SCH (10:39)
[2020-03-23] MEDS: HYDROXYUREA 500 MG CAPSULE PO SCH ×2 (10:39→18:54)
--- NOTE | 2020-03-23 13:11 | PDOC PROGRESS REPORT ---
Subjective Progress Note for:: 03/23/20 Subjective:: Patient denied abdominal pain or vomiting but continue to experience nausea and currently on Phenergan. No chest pain or difficulty with breathing. No fever or chills. Reason For Visit: SICKLE CELL CRISIS, ULCER LEFT ANKLE Physical Exam Vital Signs: Temp Pulse Resp BP Pulse Ox 99.1 F 79 20 111/59 L 93 03/23/20 08:02 03/23/20 07:07 03/23/20 07:07 03/23/20 07:07 03/23/20 07:07 Intake & Output 03/22/20 03/23/20 03/24/20 06:59 06:59 06:59 Intake Total 4220 4560 1000 Output Total 0 Balance 4220 4560 1000 Weight 65.7 kg 61.8 kg Physical Exam: General appearance: PRESENT: no acute distress Head exam: PRESENT: atraumatic, normocephalic Eye exam: PRESENT: conjunctiva pink ABSENT: pallor, sclera icterus Mouth exam: PRESENT: moist Respiratory exam: PRESENT: clear to auscultation carolyn Cardiovascular exam: PRESENT: RRR. ABSENT: diastolic murmur, rubs, systolic murmur GI/Abdominal exam: PRESENT: normal bowel sounds, soft. ABSENT: tenderness Extremities exam: ABSENT: pedal edema Skin exam: PRESENT: dry, warm, other - left ankle ulcer Results Laboratory Results: 03/21/20 10:54 03/21/20 10:54 Impressions: Chest X-Ray 03/10/20 00:00 IMPRESSION: NO ACUTE RADIOGRAPHIC FINDING IN THE CHEST. 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 Is this a current diagnosis for this admission?: Yes (2) Sickle cell anemia Qualifiers: Sickle-cell associated disorders: with unspecified crisis Qualified Code(s): D57.00 - Hb-SS disease with crisis, unspecified; D57.0 - Hb-SS disease with crisis Is this a current diagnosis for this admission?: Yes (3) Urinary tract infection Qualifiers: Urinary tract infection type: acute cystitis Hematuria presence: without hematuria Qualified Code(s): N30.00 - Acute cystitis without hematuria Is this a current diagnosis for this admission?: Yes (4) Ulcer of left ankle Qualifiers: Non-pressure ulcer stage: limited to breakdown of skin Qualified Code(s): 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 Is this a current diagnosis for this admission?: Yes (5) Rectal bleed Is this a current diagnosis for this admission?: Yes (6) Gastritis and duodenitis Is this a current diagnosis for this admission?: Yes - Time Time Spent with patient: 25-34 minutes Level of Care: MEDICAL Medications reviewed and adjusted accordingly: Yes Anticipated discharge: Home Anticipated DC Timeframe: within 72 hours - Inpatient Certification Based on my medical assessment, after consideration of the patient's comorbidities, presenting symptoms, or acuity I expect that the services needed warrant INPATIENT care.: Yes I certify that my determination is in accordance with my understanding of Medicare's requirements for reasonable and necessary INPATIENT services [42 CFR 412.3e].: Yes Medical Necessity: Significant Comorbidiites Make Outpatient Treatment Too Risky, Need Close Monitoring Due to Risk of Patient Decompensation, Need for Pain Control, Risk of Complication if Not Cared For in Hospital, Risk of Diagnosis Which Will Require Inpatient Eval/Care/Monitoring Post Hospital Care: D/C [employer] Documentation - Plan Summary Plan Summary: Continue current medication management. I discussed case with Dr. Harris, hem/onc team this morning regarding her pain management.
[2020-03-24] MEDS: HYDROMORPHONE HCL INJ/PF 2 MG/ML AMPULE IV PRN ×10 (00:31→23:49)
[2020-03-24] MEDS: DIPHENHYDRAMINE HCL 50 MG/ML VIAL IV PRN ×5 (00:31→21:39)
[2020-03-24] MEDS: 1/2 NORMAL SALINE 1,000 ML IV PRN ×4 (03:14→23:51)
[2020-03-24] MEDS: PROMETHAZINE HCL INJ 25 MG/1 ML VIAL IV PRN ×5 (03:15→23:49)
[2020-03-24] MEDS: PANTOPRAZOLE SODIUM 40 MG TABLET.DR PO SCH ×2 (05:29→17:05)
--- NOTE | 2020-03-24 08:28 | PDOC PROGRESS REPORT ---
Subjective Progress Note for:: 03/24/20 Subjective:: No acute events overnight, still having considerable pain, I decreased her Dilaudid further however. Reason For Visit: SICKLE CELL CRISIS, ULCER LEFT ANKLE Physical Exam Vital Signs: Temp Pulse Resp BP Pulse Ox 99.6 F 85 16 109/69 95 03/23/20 23:27 03/23/20 23:27 03/23/20 23:27 03/23/20 23:27 03/23/20 23:27 Intake & Output 03/23/20 03/24/20 03/25/20 06:59 06:59 06:59 Intake Total 4560 4647 Output Total 0 2600 Balance 4560 2047 Weight 61.8 kg 61.8 kg General appearance: PRESENT: no acute distress, well-developed, well-nourished Head exam: PRESENT: atraumatic, normocephalic Eye exam: PRESENT: conjunctiva pink, EOMI, PERRLA. ABSENT: scleral icterus Ear exam: PRESENT: normal external ear exam Mouth exam: PRESENT: moist, tongue midline Neck exam: ABSENT: carotid bruit, JVD, lymphadenopathy, thyromegaly Respiratory exam: PRESENT: clear to auscultation carolyn. ABSENT: rales, rhonchi, wheezes Cardiovascular exam: PRESENT: RRR. ABSENT: diastolic murmur, rubs, systolic murmur Pulses: PRESENT: normal dorsalis pedis pul Vascular exam: PRESENT: normal capillary refill GI/Abdominal exam: PRESENT: normal bowel sounds, soft. ABSENT: distended, guar ding, mass, organolmegaly, rebound, tenderness Rectal exam: PRESENT: deferred Extremities exam: PRESENT: full ROM. ABSENT: calf tenderness, clubbing, pedal edema Neurological exam: PRESENT: alert, awake, oriented to person, oriented to place, oriented to time, oriented to situation, CN II-XII grossly intact. ABSENT: motor sensory deficit Psychiatric exam: PRESENT: appropriate affect, normal mood. ABSENT: homicidal ideation, suicidal ideation Skin exam: PRESENT: dry, intact, warm. ABSENT: cyanosis, rash Results Laboratory Results: 03/21/20 10:54 03/21/20 10:54 Impressions: Chest X-Ray 03/10/20 00:00 IMPRESSION: NO ACUTE RADIOGRAPHIC FINDING IN THE CHEST. 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
[2020-03-24] MEDS: CIPROFLOXACIN 400 MG/D5W RTU 400 MG/200 ML RTUPB IV SCH ×2 (10:00→21:39)
[2020-03-24] MEDS: CHOLECALCIFEROL (D3) 1,000 UNIT (25 MCG) TABLET PO SCH (10:02)
[2020-03-24] MEDS: GABAPENTIN 300 MG CAPSULE PO SCH ×2 (10:02→21:39)
[2020-03-24] MEDS: HYDROXYUREA 500 MG CAPSULE PO SCH ×2 (10:03→19:42)
[2020-03-24] MEDS: FOLIC ACID 1 MG TABLET PO SCH (10:03)
[2020-03-24] MEDS: NA PHOS,M-B/NA PHOS,DI-BA (ADULT) 133 ML ENEMA PR SCH (10:07)
[2020-03-24] MEDS: OXYCODONE HCL SR 10 MG TABLET PO SCH ×2 (12:02→21:39)
--- NOTE | 2020-03-24 20:35 | PDOC PROGRESS REPORT ---
Subjective Progress Note for:: 03/24/20 Subjective:: She was seen by the bedside, she complain of lower abdominal pain since the colonoscopy was done, the colonoscopy was negative, she was seen by oncology/oncologist earlier this morning the opioid dose is been de-escalated Reason For Visit: SICKLE CELL CRISIS, ULCER LEFT ANKLE Physical Exam Vital Signs: Temp Pulse Resp BP Pulse Ox 98.8 F 82 16 116/55 L 97 03/24/20 19:22 03/24/20 19:22 03/24/20 19:22 03/24/20 19:22 03/24/20 19:22 Intake & Output 03/23/20 03/24/20 03/25/20 06:59 06:59 06:59 Intake Total 4560 4647 3790 Output Total 0 2600 1200 Balance 4560 2047 2590 Weight 61.8 kg 61.8 kg 61.8 kg General appearance: PRESENT: no acute distress Eye exam: PRESENT: PERRLA Respiratory exam: PRESENT: clear to auscultation carolyn Cardiovascular exam: PRESENT: +S1, +S2 GI/Abdominal exam: PRESENT: soft Neurological exam: PRESENT: alert Results Laboratory Results: 03/21/20 10:54 03/21/20 10:54 Impressions: Chest X-Ray 03/10/20 00:00 IMPRESSION: NO ACUTE RADIOGRAPHIC FINDING IN THE CHEST. 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 Is this a current diagnosis for this admission?: Yes (3) Sickle cell anemia Qualifiers: Sickle-cell associated disorders: with unspecified crisis Qualified Code(s): D57.00 - Hb-SS disease with crisis, unspecified; D57.0 - Hb-SS disease with crisis Is this a current diagnosis for this admission?: Yes (4) Rectal bleed Is this a current diagnosis for this admission?: Yes Plan: Status post colonoscopy and EGD, both negative (5) Urinary tract infection Qualifiers: Urinary tract infection type: site unspecified Hematuria presence: without hematuria Qualified Code(s): N39.0 - Urinary tract infection, site not specified Is this a current diagnosis for this admission?: Yes Plan: continue antibiotic for UTI, - Time Time Spent with patient: 25-34 minutes Level of Care: IMCU Medications reviewed and adjusted accordingly: Yes Anticipated discharge: Home Anticipated DC Timeframe: within 72 hours
[2020-03-25] MEDS: DIPHENHYDRAMINE HCL 50 MG/ML VIAL IV PRN ×5 (01:51→20:35)
[2020-03-25] MEDS: HYDROMORPHONE HCL INJ/PF 2 MG/ML AMPULE IV PRN ×10 (01:53→23:50)
[2020-03-25] MEDS: PROMETHAZINE HCL INJ 25 MG/1 ML VIAL IV PRN ×4 (04:02→23:54)
[2020-03-25] MEDS: PANTOPRAZOLE SODIUM 40 MG TABLET.DR PO SCH ×2 (06:22→16:36)
[2020-03-25 07:27] LABS: ALBUMIN 3.7 g/dL (3.5-5.0); ALKALINE PHOSPHATASE 140 U/L (38-126); ANION GAP 10 (5-19); ASPARTATE AMINO TRANSFERASE 46 U/L (14-36); BILIRUBIN,DIRECT 0.9 mg/dL (0.0-0.4); BILIRUBIN,TOTAL 3.6 mg/dL (0.2-1.3); BLOOD UREA NITROGEN 4 mg/dL (7-20); CALCIUM 8.6 mg/dL (8.4-10.2); CARBON DIOXIDE 25 mmol/L (22-30); CHLORIDE 107 mmol/L (98-107); GLUCOSE 116 mg/dL (75-110); POTASSIUM 3.3 mmol/L (3.6-5.0); TOTAL PROTEIN 6.5 g/dL (6.3-8.2)
--- NOTE | 2020-03-25 08:13 | PDOC PROGRESS REPORT ---
Subjective Progress Note for:: 03/25/20 Subjective:: Patient feeling better today. Still with pain in her shoulders. Ankle is improving. She is getting up and walking more, per patient. No new complaints today. Agrees to consider discharge later this week. Reason For Visit: SICKLE CELL CRISIS, ULCER LEFT ANKLE Physical Exam Vital Signs: Temp Pulse Resp BP Pulse Ox 99.2 F 80 16 108/78 96 03/24/20 23:07 03/24/20 23:07 03/24/20 23:07 03/24/20 23:07 03/24/20 23:07 Intake & Output 03/24/20 03/25/20 03/26/20 06:59 06:59 06:59 Intake Total 4647 5770 Output Total 2600 2200 Balance 2047 3570 Weight 61.8 kg 63.3 kg General appearance: PRESENT: no acute distress, well-developed, well-nourished Head exam: PRESENT: normocephalic Eye exam: PRESENT: EOMI Respiratory exam: PRESENT: unlabored Extremities exam: PRESENT: other - left ankle greatly improved. Ulcer has now healed. Neurological exam: PRESENT: alert, awake, oriented to person, oriented to place, oriented to time, oriented to situation Psychiatric exam: PRESENT: appropriate affect Skin exam: PRESENT: normal color Results Laboratory Results: 03/25/20 06:45 03/25/20 06:45 Sodium 141.6 Potassium 3.3 L Chloride 107 Carbon Dioxide 25 Anion Gap 10 BUN 4 L Creatinine 0.69 Est GFR ( Amer) > 60 Glucose 116 H Calcium 8.6 Total Bilirubin 3.6 H AST 46 H Alkaline Phosphatase 140 H Total Protein 6.5 Albumin 3.7 Impressions: Chest X-Ray 03/10/20 00:00 IMPRESSION: NO ACUTE RADIOGRAPHIC FINDING IN THE CHEST. Assessment & Plan - Diagnosis (1) Ankle ulcer Is this a current diagnosis for this admission?: Yes Plan: Now healed. (2) Anemia, sickle cell with crisis Is this a current diagnosis for this admission?: Yes Plan: Continue to decrease IV dilaudid. Plan for discharge later this week. (3) Rectal bleed Is this a current diagnosis for this admission?: Yes Plan: Colonoscopy was negative except for hemorrhoids. No further bleeding. Blood counts continue to improve. Await today's levels. - Time Time Spent with patient: Less than 15 minutes
[2020-03-25] MEDS: NA PHOS,M-B/NA PHOS,DI-BA (ADULT) 133 ML ENEMA PR SCH (09:32)
[2020-03-25] MEDS: HYDROXYUREA 500 MG CAPSULE PO SCH ×2 (09:46→17:05)
[2020-03-25] MEDS: FOLIC ACID 1 MG TABLET PO SCH (09:46)
[2020-03-25] MEDS: CHOLECALCIFEROL (D3) 1,000 UNIT (25 MCG) TABLET PO SCH (09:46)
[2020-03-25] MEDS: GABAPENTIN 300 MG CAPSULE PO SCH ×2 (09:46→21:36)
[2020-03-25] MEDS: CIPROFLOXACIN 400 MG/D5W RTU 400 MG/200 ML RTUPB IV SCH ×2 (09:46→21:36)
[2020-03-25 10:01] LABS: HEMATOCRIT 20.4 % (36.0-47.0); MEAN CORPUSCULAR HEMOGLOBIN 47.1 pg (27.0-33.4); MEAN CORPUSCULAR HGB CONC 35.2 g/dL (32.0-36.0); MEAN CORPUSCULAR VOLUME 134 fl (80-97); PLATELET COUNT 223 10^3/uL (150-450); RED BLOOD COUNT 1.52 10^6/uL (3.72-5.28); RED CELL DISTRIBUTION WIDTH 16.6 % (11.5-14.0)
[2020-03-25 10:48] LABS: HEMOGLOBIN 7.2 g/dL (12.0-15.5)
[2020-03-25 10:53] LABS: ABSOLUTE LYMPHOCYTES# (MANUAL) 2.1 10^3/uL (0.5-4.7); ABSOLUTE MONOCYTES # (MANUAL) 0.3 10^3/uL (0.1-1.4); ANISOCYTOSIS 1+; BASOPHILS % (MANUAL) 1 % (0-2); EOSINOPHILS % (MANUAL) 3 % (0-6); LYMPHOCYTES % (MANUAL) 47 % (13-45); MONOCYTES % (MANUAL) 6 % (3-13); PLATELET COMMENT ADEQUATE; SEGMENTED NEUTROPHILS % (MAN) 43 % (42-78); TOTAL CELLS COUNTED 100
[2020-03-25 10:55] LABS: SICKLE RED CELLS SLIGHT; TARGET CELLS 1+
[2020-03-25 10:56] LABS: OVALOCYTES SLIGHT; POLYCHROMASIA 1+
[2020-03-25 11:00] LABS: POIKILOCYTOSIS 1+
[2020-03-25 11:11] LABS: WHITE BLOOD COUNT 2.4 10^3/uL (4.0-10.5)
[2020-03-25] MEDS: OXYCODONE HCL SR 10 MG TABLET PO SCH ×2 (12:48→21:36)
[2020-03-25] MEDS: 1/2 NORMAL SALINE 1,000 ML IV PRN (16:41)
--- NOTE | 2020-03-25 21:33 | PDOC PROGRESS REPORT ---
Subjective Progress Note for:: 03/25/20 Subjective:: There is no new complaints Reason For Visit: SICKLE CELL CRISIS, ULCER LEFT ANKLE Physical Exam Vital Signs: Temp Pulse Resp BP Pulse Ox 99.2 F 75 18 97/58 L 100 03/25/20 17:31 03/25/20 17:31 03/25/20 17:31 03/25/20 17:31 03/25/20 17:31 Intake & Output 03/24/20 03/25/20 03/26/20 06:59 06:59 06:59 Intake Total 4647 6770 1415 Output Total 2600 2200 2400 Balance 2047 4570 -985 Weight 61.8 kg 63.3 kg General appearance: PRESENT: no acute distress Eye exam: PRESENT: PERRLA Respiratory exam: PRESENT: clear to auscultation carolyn Cardiovascular exam: PRESENT: +S1, +S2 GI/Abdominal exam: PRESENT: soft Neurological exam: PRESENT: alert Results Laboratory Results: 03/25/20 09:40 03/25/20 06:45 03/25/20 03/25/20 03/25/20 06:45 06:45 09:40 WBC Cancelled 2.4 L RBC Cancelled 1.52 L Hgb Cancelled 7.2 L Hct Cancelled 20.4 L MCV Cancelled 134 H MCH Cancelled 47.1 H MCHC Cancelled 35.2 RDW Cancelled 16.6 H Plt Count Cancelled 223 Seg Neutrophils % Cancelled Not Reportable Sodium 141.6 Potassium 3.3 L Chloride 107 Carbon Dioxide 25 Anion Gap 10 BUN 4 L Creatinine 0.69 Est GFR ( Amer) > 60 Glucose 116 H Calcium 8.6 Total Bilirubin 3.6 H AST 46 H Alkaline Phosphatase 140 H Total Protein 6.5 Albumin 3.7 Impressions: Chest X-Ray 03/10/20 00:00 IMPRESSION: NO ACUTE RADIOGRAPHIC FINDING IN THE CHEST. 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 Is this a current diagnosis for this admission?: Yes (3) Sickle cell anemia Qualifiers: Sickle-cell associated disorders: with unspecified crisis Qualified Code(s): D57.00 - Hb-SS disease with crisis, unspecified; D57.0 - Hb-SS disease with crisis Is this a current diagnosis for this admission?: Yes (4) Rectal bleed Is this a current diagnosis for this admission?: Yes (5) Urinary tract infection Qualifiers: Urinary tract infection type: site unspecified Hematuria presence: without hematuria Qualified Code(s): N39.0 - Urinary tract infection, site not specified Is this a current diagnosis for this admission?: Yes - Time Time Spent with patient: 15-24 minutes Level of Care: MEDICAL Medications reviewed and adjusted accordingly: Yes Anticipated discharge: Home - Inpatient Certification Based on my medical assessment, after consideration of the patient's comorb idities, presenting symptoms, or acuity I expect that the services needed warrant INPATIENT care.: Yes I certify that my determination is in accordance with my understanding of Medicare's requirements for reasonable and necessary INPATIENT services [42 CFR 412.3e].: Yes
[2020-03-25] MEDS ORDERED: OXYCODONE HCL SR 10 MG TABLET PO SCH (22:00)
[2020-03-26] MEDS: DIPHENHYDRAMINE HCL 50 MG/ML VIAL IV PRN ×5 (02:10→20:45)
[2020-03-26] MEDS: HYDROMORPHONE HCL INJ/PF 2 MG/ML AMPULE IV PRN ×10 (02:10→22:48)
[2020-03-26] MEDS: PROMETHAZINE HCL INJ 25 MG/1 ML VIAL IV PRN ×5 (04:09→22:44)
[2020-03-26] MEDS: PANTOPRAZOLE SODIUM 40 MG TABLET.DR PO SCH ×2 (06:24→17:15)
--- NOTE | 2020-03-26 08:11 | PDOC PROGRESS REPORT ---
Subjective Progress Note for:: 03/26/20 Subjective:: Patient continues to have pain in her shoulders and legs. However, she requests to go home tomorrow. She has been walking in [place] and now feels strong enough for discharge. Reason For Visit: SICKLE CELL CRISIS, ULCER LEFT ANKLE Physical Exam Vital Signs: Temp Pulse Resp BP Pulse Ox 99.2 F 75 18 97/58 L 100 03/25/20 17:31 03/25/20 17:31 03/25/20 17:31 03/25/20 17:31 03/25/20 17:31 Intake & Output 03/25/20 03/26/20 03/27/20 06:59 06:59 06:59 Intake Total 6770 2615 Output Total 2200 2900 Balance 4570 -285 Weight 63.3 kg 63.3 kg General appearance: PRESENT: no acute distress, well-developed, well-nourished Head exam: PRESENT: normocephalic Eye exam: PRESENT: EOMI Respiratory exam: PRESENT: unlabored Extremities exam: ABSENT: pedal edema Neurological exam: PRESENT: alert, awake, oriented to person, oriented to place, oriented to time, oriented to situation Psychiatric exam: PRESENT: appropriate affect Skin exam: PRESENT: normal color Results Laboratory Results: 03/25/20 09:40 03/25/20 06:45 03/25/20 03/25/20 06:45 09:40 WBC Cancelled 2.4 L RBC Cancelled 1.52 L Hgb Cancelled 7.2 L Hct Cancelled 20.4 L MCV Cancelled 134 H MCH Cancelled 47.1 H MCHC Cancelled 35.2 RDW Cancelled 16.6 H Plt Count Cancelled 223 Seg Neutrophils % Cancelled Not Reportable Impressions: Chest X-Ray 03/10/20 00:00 IMPRESSION: NO ACUTE RADIOGRAPHIC FINDING IN THE CHEST. Assessment & Plan - Diagnosis (1) Ankle ulcer Is this a current diagnosis for this admission?: Yes Plan: Now resolved. (2) Anemia, sickle cell with crisis Is this a current diagnosis for this admission?: Yes Plan: Now resolved. I will decrease her IV dilaudid again today. She should be ready for discharge tomorrow AM. We discussed starting a new medication as outpatient, Oxbryta which is FDA approved to increase HGB in sickle cell pat ients. She agrees. I will arrange as outpatient. (3) Rectal bleed Is this a current diagnosis for this admission?: Yes - Time Time Spent with patient: Less than 15 minutes
[2020-03-26] MEDS: 1/2 NORMAL SALINE 1,000 ML IV PRN ×3 (08:55→16:11)
[2020-03-26] MEDS: CHOLECALCIFEROL (D3) 1,000 UNIT (25 MCG) TABLET PO SCH (09:40)
[2020-03-26] MEDS: HYDROXYUREA 500 MG CAPSULE PO SCH ×2 (09:40→17:15)
[2020-03-26] MEDS: GABAPENTIN 300 MG CAPSULE PO SCH ×2 (09:40→22:44)
[2020-03-26] MEDS: CIPROFLOXACIN 400 MG/D5W RTU 400 MG/200 ML RTUPB IV SCH (09:40)
[2020-03-26] MEDS: OXYCODONE HCL SR 10 MG TABLET PO SCH ×2 (09:40→22:44)
[2020-03-26] MEDS: FOLIC ACID 1 MG TABLET PO SCH (09:40)
[2020-03-26] MEDS: NA PHOS,M-B/NA PHOS,DI-BA (ADULT) 133 ML ENEMA PR SCH (09:41)
--- NOTE | 2020-03-26 20:18 | PDOC PROGRESS REPORT ---
Subjective Progress Note for:: 03/26/20 Subjective:: She says she is very tired she has no energy she wants to check her CBC ,she told she is anemic, I reviewed Dr. Ryan Viveros note about discharge/disposition plans and also regarding the use of a new agent for anemia management Reason For Visit: SICKLE CELL CRISIS, ULCER LEFT ANKLE Physical Exam Vital Signs: Temp Pulse Resp BP Pulse Ox 99.7 F 79 16 100/53 L 98 03/26/20 15:44 03/26/20 15:44 03/26/20 15:44 03/26/20 15:44 03/26/20 15:44 Intake & Output 03/25/20 03/26/20 03/27/20 06:59 06:59 06:59 Intake Total 6770 3615 2700 Output Total 2200 2900 3100 Balance 4570 715 -400 Weight 63.3 kg 63.3 kg 63.3 kg General appearance: PRESENT: no acute distress Eye exam: PRESENT: PERRLA Respiratory exam: PRESENT: clear to auscultation carolyn Cardiovascular exam: PRESENT: +S1, +S2 GI/Abdominal exam: PRESENT: soft Results Laboratory Results: 03/25/20 09:40 03/25/20 06:45 Impressions: Chest X-Ray 03/10/20 00:00 IMPRESSION: NO ACUTE RADIOGRAPHIC FINDING IN THE CHEST. 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 Is this a current diagnosis for this admission?: Yes Plan: Management per commodity merchant (2) Ulcer of left ankle Qualifiers: Non-pressure ulcer stage: limited to breakdown of skin Qualified Code(s): 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 Is this a current diagnosis for this admission?: Yes (3) Sickle cell anemia Qualifiers: Sickle-cell associated disorders: with unspecified crisis Qualified C ode(s): D57.00 - Hb-SS disease with crisis, unspecified; D57.0 - Hb-SS disease with crisis Is this a current diagnosis for this admission?: Yes (4) Rectal bleed Is this a current diagnosis for this admission?: Yes (5) Urinary tract infection Qualifiers: Urinary tract infection type: site unspecified Hematuria presence: without hematuria Qualified Code(s): N39.0 - Urinary tract infection, site not specified Is this a current diagnosis for this admission?: Yes - Time Time Spent with patient: 15-24 minutes Level of Care: MEDICAL Medications reviewed and adjusted accordingly: Yes Anticipated discharge: Home Anticipated DC Timeframe: within 72 hours
[2020-03-26 22:14] LABS: HEMATOCRIT 21.4 % (36.0-47.0); MEAN CORPUSCULAR HEMOGLOBIN 47.5 pg (27.0-33.4); MEAN CORPUSCULAR HGB CONC 35.5 g/dL (32.0-36.0); MEAN CORPUSCULAR VOLUME 134 fl (80-97); PLATELET COUNT 223 10^3/uL (150-450); RED CELL DISTRIBUTION WIDTH 15.9 % (11.5-14.0); WHITE BLOOD COUNT 3.8 10^3/uL (4.0-10.5)
[2020-03-26 22:41] LABS: ABSOLUTE LYMPHOCYTES# (MANUAL) 2.1 10^3/uL (0.5-4.7); ABSOLUTE MONOCYTES # (MANUAL) 0.2 10^3/uL (0.1-1.4); BASOPHILS % (MANUAL) 1 % (0-2); EOSINOPHILS % (MANUAL) 1 % (0-6); LYMPHOCYTES % (MANUAL) 56 % (13-45); MONOCYTES % (MANUAL) 5 % (3-13); NUCLEATED RED BLOOD CELLS 46 /100 WBC (0); SEGMENTED NEUTROPHILS % (MAN) 37 % (42-78); TOTAL CELLS COUNTED 100
[2020-03-26 22:44] LABS: ANISOCYTOSIS 1+; OVALOCYTES 1+; PLATELET COMMENT ADEQUATE; POIKILOCYTOSIS 2+; SICKLE RED CELLS 1+; TARGET CELLS SLIGHT
[2020-03-26 22:46] LABS: HEMOGLOBIN 7.6 g/dL (12.0-15.5)
[2020-03-27] MEDS: HYDROMORPHONE HCL INJ/PF 2 MG/ML AMPULE IV PRN ×9 (00:59→21:52)
[2020-03-27] MEDS: DIPHENHYDRAMINE HCL 50 MG/ML VIAL IV PRN ×5 (00:59→19:50)
[2020-03-27] MEDS: 1/2 NORMAL SALINE 1,000 ML IV PRN ×3 (01:00→17:05)
[2020-03-27] MEDS: PROMETHAZINE HCL INJ 25 MG/1 ML VIAL IV PRN ×5 (03:02→21:52)
[2020-03-27] MEDS: PANTOPRAZOLE SODIUM 40 MG TABLET.DR PO SCH ×2 (07:12→17:04)
--- NOTE | 2020-03-27 07:35 | PDOC PROGRESS REPORT ---
Subjective Progress Note for:: 03/27/20 Subjective:: Patient very sleepy this morning. States that she did not sleep well. Otherwise, no complaints. Nurses report that she had a good day yesterday. Reason For Visit: SICKLE CELL CRISIS, ULCER LEFT ANKLE Physical Exam Vital Signs: Temp Pulse Resp BP Pulse Ox 99 F 78 16 96/50 L 96 03/27/20 00:00 03/27/20 00:00 03/27/20 00:00 03/27/20 00:00 03/27/20 00:00 Intake & Output 03/26/20 03/27/20 03/28/20 06:59 06:59 06:59 Intake Total 3615 3700 Output Total 2900 3100 Balance 715 600 Weight 63.3 kg 63.3 kg General appearance: PRESENT: no acute distress Head exam: PRESENT: normocephalic Respiratory exam: PRESENT: unlabored Extremities exam: ABSENT: pedal edema Neurological exam: PRESENT: other - Sleepy, but oriented. Skin exam: PRESENT: normal color Results Laboratory Results: 03/26/20 20:54 03/25/20 06:45 03/26/20 20:54 WBC 3.8 L RBC 1.60 L Hgb 7.6 L Hct 21.4 L MCV 134 H MCH 47.5 H MCHC 35.5 RDW 15.9 H Plt Count 223 Seg Neutrophils % Not Reportable Impressions: Chest X-Ray 03/10/20 00:00 IMPRESSION: NO ACUTE RADIOGRAPHIC FINDING IN THE CHEST. Assessment & Plan - Diagnosis (1) Ankle ulcer Is this a current diagnosis for this admission?: Yes (2) Anemia, sickle cell with crisis Is this a current diagnosis for this admission?: Yes (3) Rectal bleed Is this a current diagnosis for this admission?: Yes - Time Time Spent with patient: Less than 15 minutes - Plan Summary Plan Summary: I will arrange for Procrit shot today prior to discharge. I have already Escribed all narcotics to her pharmacy. She is ready for discharge this morning. I will follow as outpatient.
[2020-03-27] MEDS ORDERED: EPOETIN ALFA-EPBX 40,000 UNIT/ML VIAL (NON-ESRD) IV ONE (08:00)
[2020-03-27] MEDS: FOLIC ACID 1 MG TABLET PO SCH (09:08)
[2020-03-27] MEDS: CHOLECALCIFEROL (D3) 1,000 UNIT (25 MCG) TABLET PO SCH (09:08)
[2020-03-27] MEDS: HYDROXYUREA 500 MG CAPSULE PO SCH ×2 (09:08→17:04)
[2020-03-27] MEDS: OXYCODONE HCL SR 10 MG TABLET PO SCH ×2 (09:08→21:53)
[2020-03-27] MEDS: GABAPENTIN 300 MG CAPSULE PO SCH ×2 (09:08→21:52)
[2020-03-27] MEDS: NA PHOS,M-B/NA PHOS,DI-BA (ADULT) 133 ML ENEMA PR SCH (09:19)
--- NOTE | 2020-03-27 22:25 | PDOC PROGRESS REPORT ---
Subjective Progress Note for:: 03/27/20 Subjective:: she was seen by the bedside Reason For Visit: SICKLE CELL CRISIS, ULCER LEFT ANKLE Physical Exam Vital Signs: Temp Pulse Resp BP Pulse Ox 99.2 F 84 18 96/59 L 96 03/27/20 19:40 03/27/20 19:40 03/27/20 19:40 03/27/20 19:40 03/27/20 19:40 Intake & Output 03/26/20 03/27/20 03/28/20 06:59 06:59 06:59 Intake Total 3615 3700 1999 Output Total 2900 3100 Balance 887 172 4523 Weight 63.3 kg 63.3 kg General appearance: PRESENT: no acute distress Eye exam: PRESENT: PERRLA Respiratory exam: PRESENT: clear to auscultation carolyn Cardiovascular exam: PRESENT: +S1, +S2 GI/Abdominal exam: PRESENT: soft Neurological exam: PRESENT: alert Results Laboratory Results: 03/26/20 20:54 03/25/20 06:45 03/26/20 20:54 WBC 3.8 L RBC 1.60 L Hgb 7.6 L Hct 21.4 L MCV 134 H MCH 47.5 H MCHC 35.5 RDW 15.9 H Plt Count 223 Seg Neutrophils % Not Reportable Impressions: Chest X-Ray 03/10/20 00:00 IMPRESSION: NO ACUTE RADIOGRAPHIC FINDING IN THE CHEST. 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 Is this a current diagnosis for this admission?: Yes Plan: Management per financial analysis advisor (2) Ulcer of left ankle Qualifiers: Non-pressure ulcer stage: limited to breakdown of skin Qualified Code(s): 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 Is this a current diagnosis for this admission?: Yes (3) Sickle cell anemia Qualifiers: Sickle-cell associated disorders: with unspecified crisis Qualified Code(s): D57.00 - Hb-SS disease with crisis, unspecified; D57.0 - Hb-SS disease with crisis Is this a current diagnosis for this admission?: Yes (4) Rectal bleed Is this a current diagnosis for this admission?: Yes (5) Urinary tract infection Qualifiers: Urinary tract infection type: site unspecified Hematuria presence: without hematuria Qualified Code(s): N39.0 - Urinary tract infection, site not specified Is this a current diagnosis for this admission?: Yes - Time Time Spent with patient: 25-34 minutes Level of Care: MEDICAL Medications reviewed and adjusted accordingly: Yes Anticipated discharge: Home
[2020-03-28] MEDS: DIPHENHYDRAMINE HCL 50 MG/ML VIAL IV PRN ×3 (00:12→12:09)
[2020-03-28] MEDS: HYDROMORPHONE HCL INJ/PF 2 MG/ML AMPULE IV PRN ×6 (00:12→14:55)
[2020-03-28] MEDS: 1/2 NORMAL SALINE 1,000 ML IV PRN ×2 (00:17→09:44)
[2020-03-28] MEDS: PROMETHAZINE HCL INJ 25 MG/1 ML VIAL IV PRN ×3 (02:17→14:55)
[2020-03-28] MEDS: PANTOPRAZOLE SODIUM 40 MG TABLET.DR PO SCH ×2 (05:29→17:02)
[2020-03-28] MEDS: NA PHOS,M-B/NA PHOS,DI-BA (ADULT) 133 ML ENEMA PR SCH (09:24)
[2020-03-28] MEDS: CHOLECALCIFEROL (D3) 1,000 UNIT (25 MCG) TABLET PO SCH (09:43)
[2020-03-28] MEDS: GABAPENTIN 300 MG CAPSULE PO SCH (09:43)
[2020-03-28] MEDS: FOLIC ACID 1 MG TABLET PO SCH (09:43)
[2020-03-28] MEDS: OXYCODONE HCL SR 10 MG TABLET PO SCH (09:43)
[2020-03-28] MEDS: HYDROXYUREA 500 MG CAPSULE PO SCH (09:44)
--- NOTE | 2020-03-28 16:39 | PDOC DISCHARGE SUMMARY ---
Impression - Admit/DC Date/PCP Admission Date/Primary Care Provider: 03/10/20 15:44 SAVANNA AWAN MD Discharge Date: 03/28/20 - Discharge Diagnosis (1) Vaso-occlusive pain due to sickle cell disease Is this a current diagnosis for this admission?: Yes (2) Ulcer of left ankle Is this a current diagnosis for this admission?: Yes (3) Sickle cell anemia Is this a current diagnosis for this admission?: Yes (4) Rectal bleed Is this a current diagnosis for this admission?: Yes (5) Urinary tract infection Is this a current diagnosis for this admission?: Yes - Additional Information Resuscitation Status: Full Code Referrals: HOMA BARRAZA MD [ACTIVE STAFF] - 04/03/20 2:30 pm Home Medications: RX: Deferasirox [Jadenu] 360 mg PO DAILY 08/13/19 RX: Epoetin Efderico [Procrit Inj 20,000 Unit/1 ml Vial (Renal)] 60,000 unit IJ FR@1000 08/13/19 RX: Folic Acid 1 mg PO DAILY 08/13/19 RX: Gabapentin [Neurontin 300 mg Capsule] 300 mg PO Q12 08/13/19 RX: Hydroxyurea [Hydrea 500 mg Capsule] 500 mg PO TID 08/13/19 RX: Oxycodone HCl [Oxy-Ir 5 mg Tablet] 10 mg PO Q6HP PRN 08/13/19 RX: Cholecalciferol (Vitamin D3) [Vitamin D3 1000 Unit Tablet] 5,000 unit PO DAILY 11/29/19 RX: Oxycodone Myristate [Xtampza ER] 27 mg PO Q12 11/29/19 RX: Ergocalciferol (Vitamin D2) [Drisdol 50,000 unit (1.25MG) Capsule] 50,000 unit PO WE@1000 01/12/20 RX: Multivitamin [Tab-A-Yosvany (Multiple Vitamin) Tablet] 1 tab PO DAILY 01/12/20 History of Present Illiness History of Present Illness: WILLIE ALAN is a 50 year old femaleShe was in the emergency room over the weekend for evaluation of pain, she has sickle cell disease with frequent vaso- occlusive crisis and multiple hospitalization for same. I advised the ED physician that patient could be discharged home to see me in the office on [place], this was her first office visit this year.She complains of pain involving the extremities the chest, the abdomen, she also have a chronic superficial ulcer on the left ankle, she was admitted directly from the office into the hospital for further management of her crisis, the hemogram demonstrated hemoglobin of 7 Hospital Course Hospital Course: She has sickle cell disease, she presented with sickle cell pain, she was seen in consultation by car head liner installer, she was treated with Dilaudid for pain control, hospital course was complicated with rectal bleed, and UTI, she underwent colonoscopy and EGD, They were both normal. She was treated with IV antibiotic ciprofloxacin for UTI Physical Exam Vital Signs: Temp Pulse Resp BP Pulse Ox 97.4 F 118 H 12 114/86 H 100 03/28/20 15:50 03/28/20 15:50 03/28/20 15:50 03/28/20 15:50 03/28/20 15:50 Intake & Output 03/27/20 03/28/20 03/29/20 06:59 06:59 06:59 Intake Total 3700 4420 260 Output Total 3100 Balance 600 4420 260 Weight 63.3 kg 63.3 kg 63.3 kg General appearance: PRESENT: no acute distress Eye exam: PRESENT: PERRLA Respiratory exam: PRESENT: clear to auscultation carolyn Cardiovascular exam: PRESENT: +S1, +S2 GI/Abdominal exam: PRESENT: soft Neurological exam: PRESENT: alert Results Laboratory Results: WBC 3.8 10^3/uL (4.0-10.5) L 03/26/20 20:54 RBC 1.60 10^6/uL (3.72-5.28) L 03/26/20 20:54 Hgb 7.6 g/dL (12.0-15.5) L 03/26/20 20:54 Hct 21.4 % (36.0-47.0) L 03/26/20 20:54 MCV 134 fl (80-97) H 03/26/20 20:54 MCH 47.5 pg (27.0-33.4) H 03/26/20 20:54 MCHC 35.5 g/dL (32.0-36.0) 03/26/20 20:54 RDW 15.9 % (11.5-14.0) H 03/26/20 20:54 Plt Count 223 10^3/uL (150-450) 03/26/20 20:54 Lymph % (Auto) Not Reportable 03/26/20 20:54 Cowley % (Auto) Not Reportable 03/26/20 20:54 Eos % (Auto) Not Reportable 03/26/20 20:54 Baso % (Auto) Not Reportable 03/26/20 20:54 Absolute Neuts (auto) Not Reportable 03/26/20 20:54 Absolute Lymphs (auto) Not Reportable 03/26/20 20:54 Absolute Monos (auto) Not Reportable 03/26/20 20:54 Absolute Eos (auto) Not Reportable 03/26/20 20:54 Absolute Basos (auto) Not Reportable 03/26/20 20:54 Total Counted 100 03/26/20 20:54 Seg Neutrophils % Not Reportable 03/26/20 20:54 Seg Neuts % (Manual) 37 % (42-78) L 03/26/20 20:54 Lymphocytes % (Manual) 56 % (13-45) H 03/26/20 20:54 Monocytes % (Manual) 5 % (3-13) 03/26/20 20:54 Eosinophils % (Manual) 1 % (0-6) 03/26/20 20:54 Basophils % (Manual) 1 % (0-2) 03/26/20 20:54 Abs Neuts (Manual) 1.4 10^3/uL (1.7-8.2) L 03/26/20 20:54 Abs Lymphs (Manual) 2.1 10^3/uL (0.5-4.7) 03/26/20 20:54 Abs Monocytes (Manual) 0.2 10^3/uL (0.1-1.4) 03/26/20 20:54 Absolute Eos (Manual) 0.0 10^3/uL (0.0-0.6) 03/26/20 20:54 Abs Basophils (Manual) 0.0 10^3/uL (0.0-0.2) 03/26/20 20:54 Nucleated RBCs 46 /100 WBC (0) 03/26/20 20:54 Platelet Estimate Cancelled 03/25/20 06:45 Platelet Comment ADEQUATE 03/26/20 20:54 Polychromasia 1+ 10/06/20 09:40 Poikilocytosis 2+ 03/26/20 20:54 Anisocytosis 1+ 03/26/20 20:54 Macrocytosis 4+ 03/26/20 20:54 Pappenheimer Bodies PRESENT 03/21/20 10:54 Sickle Cells 1+ 03/26/20 20:54 Target Cells SLIGHT 03/26/20 20:54 Tear Drop Cells 2+ 03/18/20 06:10 Ovalocytes 1+ 03/26/20 20:54 Kendall-Entiat Bodies PRESENT 03/21/20 10:54 Schistocytes SLIGHT 03/21/20 10:54 Sodium 141.6 mmol/L (137-145) 03/25/20 06:45 Potassium 3.3 mmol/L (3.6-5.0) L 03/25/20 06:45 Chloride 107 mmol/L (98-107) 03/25/20 06:45 Carbon Dioxide 25 mmol/L (22-30) 03/25/20 06:45 Anion Gap 10 (5-19) 03/25/20 06:45 BUN 4 mg/dL (7-20) L 03/25/20 06:45 Creatinine 0.69 mg/dL (0.52-1.25) 03/25/20 06:45 Est GFR ( Amer) > 60 (>60) 03/25/20 06:45 Est GFR (MDRD) Non-Af > 60 (>60) 03/25/20 06:45 Glucose 116 mg/dL (75-110) H 03/25/20 06:45 Calcium 8.6 mg/dL (8.4-10.2) 03/25/20 06:45 Total Bilirubin 3.6 mg/dL (0.2-1.3) H 03/25/20 06:45 Direct Bilirubin 0.9 mg/dL (0.0-0.4) H 03/25/20 06:45 Neonat Total Bilirubin Not Reportable 03/25/20 06:45 Neonat Direct Bilirubin Not Reportable 03/25/20 06:45 Neonat Indirect Bili Not Reportable 03/25/20 06:45 AST 46 U/L (14-36) H 03/25/20 06:45 ALT 38 U/L (<35) H 03/25/20 06:45 Alkaline Phosphatase 140 U/L (38-126) H 03/25/20 06:45 Lactate Dehydrogenase 300 U/L (120-246) H 03/25/20 06:45 Total Protein 6.5 g/dL (6.3-8.2) 03/25/20 06:45 Albumin 3.7 g/dL (3.5-5.0) 03/25/20 06:45 Urine Color YELLOW 03/19/20 16:31 Urine Appearance CLEAR 03/19/20 16:31 Urine pH 7.0 (5.0-9.0) 03/19/20 16:31 Ur Specific [place] 1.004 03/19/20 16:31 Urine Protein NEGATIVE mg/dL (NEGATIVE) 03/19/20 16:31 Urine Glucose (UA) NEGATIVE mg/dL (NEGATIVE) 03/19/20 16:31 Urine Ketones NEGATIVE mg/dL (NEGATIVE) 03/19/20 16:31 Urine Blood NEGATIVE (NEGATIVE) 03/19/20 16:31 Urine Nitrite NEGATIVE (NEGATIVE) 03/11/20 06:55 Urine Nitrite (Reflex) NEGATIVE (NEGATIVE) 03/19/20 16:31 Urine Bilirubin NEGATIVE (NEGATIVE) 03/19/20 16:31 Urine Urobilinogen NEGATIVE mg/dL (<2.0) 03/19/20 16:31 Ur Leukocyte Esterase SMALL (NEGATIVE) H 03/11/20 06:55 Leukocyte Esterase Rfl NEGATIVE (NEGATIVE) 03/19/20 16:31 Urine WBC (Auto) 4 /HPF 03/11/20 06:55 Urine RBC (Auto) 1 /HPF 03/11/20 06:55 Urine Bacteria (Auto) 3+ /HPF 03/11/20 06:55 Urine WBC (Reflex) < 1 /HPF 03/19/20 16:31 Squamous Epi Cells Auto <1 /HPF 03/19/20 16:31 Urine Mucus (Auto) RARE /LPF 03/19/20 16:31 Urine Ascorbic Acid NEGATIVE (NEGATIVE) 03/19/20 16:31 COVID-19 Source See comment 03/21/20 08:20 COVID-19 (FELISHA) Not Detected (Not Detect) 03/21/20 08:20 SARS-CoV-2 (PCR) NEGATIVE (NEGATIVE) 03/21/20 23:11 Slides for Path Review Cancelled 03/25/20 06:45 Impressions: Chest X-Ray 03/10/20 00:00 IMPRESSION: NO ACUTE RADIOGRAPHIC FINDING IN THE CHEST. Stroke Is this a Stroke Patient?: No Acute Heart Failure Is this a Heart Failure Patient?: No
[2020-03-28 16:46] VITALS: BP 102/56
== END 2020-03-28 17:09 | disposition home or self-care (01) | DRG 812 ==
LOC: 4S 15:44
PROVIDERS: ADMIT Internal Medicine; ATTEND Internal Medicine
PROC: 0DJ08ZZ Inspection of Upper Intestinal Tract, Via Natural or Artificial Opening Endoscopic (ICD-10-PCS; principal; 2020-03-22 10:00)
PROC: 0DJD8ZZ Inspection of Lower Intestinal Tract, Via Natural or Artificial Opening Endoscopic (ICD-10-PCS; 2020-03-22 10:00)
PROC: 3E02340 Introduction of Influenza Vaccine into Muscle, Percutaneous Approach (ICD-10-PCS; 2020-03-28)
DX: D57.819 Other sickle-cell disorders with crisis, unspecified (principal); K62.5 Hemorrhage of anus and rectum; L97.321 Non-pressure chronic ulcer of left ankle limited to breakdown of skin; N30.00 Acute cystitis without hematuria; I83.023 Varicose veins of left lower extremity with ulcer of ankle; K29.70 Gastritis, unspecified, without bleeding; K44.9 Diaphragmatic hernia without obstruction or gangrene; K64.1 Second degree hemorrhoids; K29.80 Duodenitis without bleeding; R19.7 Diarrhea, unspecified; Z79.899 Other long term (current) drug therapy; Z86.14 Personal history of Methicillin resistant Staphylococcus aureus infection; Z87.891 Personal history of nicotine dependence; Z79.891 Long term (current) use of opiate analgesic; Z88.3 Allergy status to other anti-infective agents; Z91.19 Patient's noncompliance with other medical treatment and regimen; Z03.818 Encounter for observation for suspected exposure to other biological agents ruled out; Z23 Encounter for immunization
CPT/HCPCS: 00731; 36415; 43235; 45378; 71045; 80048; 80053; 80076; 81001; 83615; 85025; 85027; 87040; 87635; 90471; 90686; C9803; G0008; J0171; J0744; J1170; J1200; J1642; J1650; J2250; J2550; J2704; J3411; J3475; J3480; J3490; J7030; Q5106

== ENCOUNTER 2020-04-20 18:12 | Inpatient (IN) | payer MEDICAID ==
--- NOTE | 2020-04-20 18:27 | ER Document Report ---
ED Medical Screen (RME) - General Chief Complaint: Sickle Cell Crisis Stated Complaint: SICKLE CELL CRISIS Time Seen by Provider: 04/20/20 18:19 Primary Care Provider: SAVANNA AWAN MD [Primary Care Provider] - Follow up as needed - HPI Notes: 04/20/20 18:26 50-year-old female with past medical history for sickle cell anemia to the emergency department with complaints of sickle cell crisis. She states that she has pain in her arms, back, chest, legs. She states this is typical for her acute pain crisis. She does admit to running a fever at home. She states that she did not measure it. Today in the emergency department her temperature is 100. She states she usually takes her regular pain medicine as prescribed from Dr. Gambino but it is not been helping. She has had acute chest syndrome in the past but she does not feel like this pain is consistent with an episode of acute chest. She denies any cough, body aches, nausea, vomiting. She states that she is not been in contact with anyone with COVID-19. She had a negative Covid test the beginning of March. I performed a brief medical screening exam on the patient determined that the patient needs further evaluation and management by main side provider. I have placed initial orders to help expedite care. - Related Data Allergies/Adverse Reactions: doxycycline [Doxycycline] Allergy (Severe, Verified 04/20/20 18:21) Past Medical History - Past Medical History Cardiac Medical History: Reports: Hx Heart Murmur Denies: Hx Atrial Fibrillation, Hx Congestive Heart Failure, Hx Coronary Artery Disease, Hx Heart Attack, Hx Hypercholesterolemia, Hx Hypertension, Hx Peripheral Vascular Disease Pulmonary Medical History: Denies: Hx Tuberculosis Neurological Medical History: Denies: Hx Seizures Renal/ Medical History: Reports: Hx Ovarian Cysts. 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 Denies: Hx HIV Past Surgical History: Reports: Hx Appendectomy, Hx Section, Hx Cholecystectomy, Hx Orthopedic Surgery - R knee, Hx Tonsillectomy. Denies: Hx Bowel Surgery, Hx Coronary Artery Bypass Graft, Hx Gastric Bypass Surgery, Hx Herniorrhaphy, Hx Mastectomy, Hx Pacemaker, Hx Tubal Ligation - Immunizations Immunizations up to date: Yes Hx Diphtheria, Pertussis, Tetanus Vaccination: Yes Physical Exam - Vital signs Vitals: Temp Pulse Resp BP Pulse Ox 100.0 F 99 16 106/70 97 04/20/20 18:19 04/20/20 18:19 04/20/20 18:19 04/20/20 18:19 04/20/20 18:19 Course - Vital Signs Vital signs: Temp Pulse Resp BP Pulse Ox 100.0 F 99 16 106/70 97 04/20/20 18:19 04/20/20 18:19 04/20/20 18:19 04/20/20 18:19 04/20/20 18:19 Doctor's Discharge - Discharge Referrals: SAVANNA AWAN MD [Primary Care Provider] - Follow up as needed
[2020-04-20] MEDS ORDERED: DIPHENHYDRAMINE HCL 50 MG/ML VIAL IV ONE ×2 (18:28→21:30)
[2020-04-20] MEDS ORDERED: HYDROMORPHONE HCL INJ/PF 2 MG/ML AMPULE IV ONE ×3 (18:28→22:29)
[2020-04-20] MEDS ORDERED: PROMETHAZINE HCL INJ 50 MG/1 ML VIAL IM ONE ×2 (18:28→21:30)
--- NOTE | 2020-04-20 19:13 | RADIOLOGY REPORT (SQ) ---
EXAM DESCRIPTION: CHEST SINGLE VIEW IMAGES COMPLETED DATE/TIME: 04/20/2020 6:52 pm REASON FOR STUDY: chest pain COMPARISON: 03/10/2020 NUMBER OF VIEWS: One view. TECHNIQUE: Single frontal radiographic view of the chest acquired. LIMITATIONS: None. FINDINGS: LUNGS AND PLEURA: No opacities, masses or pneumothorax. No pleural effusion. MEDIASTINUM AND HILAR STRUCTURES: No masses. Contour normal. HEART AND VASCULAR STRUCTURES: Heart normal in size. Normal vasculature. BONES: No acute findings. HARDWARE: Left port, stable appearance. OTHER: No other significant finding. IMPRESSION: NO SIGNIFICANT RADIOGRAPHIC FINDING IN THE CHEST. TECHNICAL DOCUMENTATION: JOB ID: [id number] 2010 [employer]- All Rights Reserved Reading location - IP/workstation name: [email or web address]
[2020-04-20] MEDS ORDERED: NORMAL SALINE 1000 ML 1,000 ML IV ONE (21:06)
--- NOTE | 2020-04-20 21:10 | ER Document Report ---
ED General Pain - General Chief Complaint: Sickle Cell Crisis Stated Complaint: SICKLE CELL CRISIS Time Seen by Provider: 04/20/20 18:19 Primary Care Provider: SAVANNA RAMIREZ MD [Primary Care Provider] - Follow up as needed - [facility] Notes: Patient is a 50-year-old female with a past medical history of sickle cell disease who presents with acute pain. Patient states that pain is in her back, chest, arms, and legs. This feels like a pain crisis to her. She states she has had acute chest syndrome but this feels different. She denies any cough or recent illnesses. She states she has felt warm. Has been taking her pain medicine at home but it has not been working. She states that she has had num erous admissions for pain crisis. Follows with Dr. Ramirez from oncology. - Related Data Allergies/Adverse Reactions: doxycycline [Doxycycline] Allergy (Severe, Verified 04/20/20 18:21) Past Medical History - Social History Smoking Status: Never Smoker Family History: Reviewed & Not Pertinent Patient has homicidal ideation: No - Past Medical History Cardiac Medical History: Reports: Hx Heart Murmur Denies: Hx Atrial Fibrillation, Hx Congestive Heart Failure, Hx Coronary Artery Disease, Hx Heart Attack, Hx Hypercholesterolemia, Hx Hypertension, Hx Peripheral Vascular Disease Pulmonary Medical History: Denies: Hx Tuberculosis Neurological Medical History: Denies: Hx Seizures Renal/ Medical History: Reports: Hx Ovarian Cysts. 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 Denies: Hx HIV Past Surgical History: Reports: Hx Appendectomy, Hx Section, Hx Cholecystectomy, Hx Orthopedic Surgery - R knee, Hx Tonsillectomy. Denies: Hx Bowel Surgery, Hx Coronary Artery Bypass Graft, Hx Gastric Bypass Surgery, Hx Herniorrhaphy, Hx Mastectomy, Hx Pacemaker, Hx Tubal Ligation - Immunizations Immunizations up to date: Yes Hx Diphtheria, Pertussis, Tetanus Vaccination: Yes Hx Pneumococcal Vaccination: 03/20/14 Review of Systems - Review of Systems Notes: CONSTITUTIONAL: No fever, fatigue or weight loss. SKIN: No rash. HENT: No congestion, ear pain, or sore throat. EYES: No recent vision problems or eye pain. CARDIOVASCULAR: No edema. RESPIRATORY: No cough, shortness of breath, congestion, or wheezing. GASTROINTESTINAL: No nausea, vomiting, bloody stools or diarrhea. Positive for abdominal pain. GENITOURINARY: No dysuria. MUSCULOSKELETAL: No joint pain or swelling. Positive for leg and arm muscle pain. Positive for back pain. LYMPHATIC: No swollen glands. NEUROLOGIC: No seizures. No focal weakness or sensory changes. Positive for headache. HEMATOLOGIC: No unusual bruising or bleeding. PSYCHIATRIC: No depression or anxiety. Physical Exam - Vital signs Vitals: Temp Pulse Resp BP Pulse Ox 100.0 F 99 16 106/70 97 04/20/20 18:19 04/20/20 18:19 04/20/20 18:19 04/20/20 18:19 04/20/20 18:19 - General Notes: VITAL SIGNS: Within normal limits. GENERAL: No acute distress, non-toxic appearance. HEAD: Normal with no signs of head trauma. EYES: EOMI, conjunctiva normal, no discharge. EARS: Hearing grossly intact. NOSE: Normal. NECK: Normal range of motion, no tenderness, supple, no lymphadenopathy, No adenopathy, no JVD. CHEST: Clear breath sounds bilaterally. No wheezes, rales, or rhonchi. CARDIAC: Regular rate and rhythm. VASCULAR: No Edema. ABDOMEN: Normal and soft. GENITOURINARY: Normal, No tenderness LYMPATHTIC: No lymphadenopathy noted. MUSCULOSKELETAL: Good range of motion of all major joints. Extremities without clubbing, cyanosis or edema. NEUROLOGICAL: Alert and oriented x 3. No focal sensory or strength deficits. Speech normal. Follows commands appropriately. PSYCHIATRIC: Normal Affect, judgement and mood. SKIN: Normal appearance with no rashes or lesions. Course - Re-evaluation Re-evalutation: 04/20/20 21:08 Patient was given pain medicine and fluids. Her port was accessed. I will await results of lab testing. Currently, patient is in no acute distress. 04/21/20 01:34 Patient's reticulocyte count is high. Her hemoglobin is better than normal. Patient received 4 mg of Dilaudid while in the ER. She states that the pain is not improving and she is concerned that if she goes home she will have to come back. She is concerned that she has an acute pain crisis. Patient states that she would like to be admitted. I did talk with her doctor who is on-call. He will admit her to the medical floor. - Vital Signs Vital signs: Temp Pulse Resp BP Pulse Ox 98.6 F 83 24 H 97/63 L 99 04/20/20 19:50 04/20/20 19:50 04/20/20 19:50 04/20/20 19:50 04/20/20 19:50 - Laboratory Result Diagrams: 04/20/20 20:59 04/20/20 20:59 Laboratory results interpreted by me: 04/20/20 04/20/20 20:59 20:59 RBC 1.76 L Hgb 7.8 L Hct 22.1 L MCV 126 H D MCH 44.5 H RDW 15.3 H Monocytes % (Manual) 2 L Retic Count (auto) 5.24 H Chloride 110 H Carbon Dioxide 17 L Total Bilirubin 4.2 H Direct Bilirubin 0.7 H AST 55 H Alkaline Phosphatase 148 H - Diagnostic Test Radiology reviewed: Image reviewed, Reports reviewed - EKG Interpretation by Me EKG shows normal: Sinus rhythm Rate: Normal Rhythm: NSR When compared to previous EKG there are: No significant change Additional EKG results interpreted by me: 04/20/20 21:10 Sinus rhythm at a rate of 77. QTc 449. No acute ST changes. EKG is similar to previous. Discharge - Discharge Clinical Impression: Sickle cell pain crisis Condition: Stable Disposition: ADMITTED INPATIENT [facility] Medical Floor Referrals: SAVANNA RAMIREZ MD [Primary Care Provider] - Follow up as needed
[2020-04-20] MEDS ORDERED: PROMETHAZINE HCL INJ 25 MG/1 ML VIAL IM ONE (21:15)
[2020-04-20 21:21] LABS: ABSOLUTE RETICS # 0.092 10^6/uL (0.028-0.122); HEMATOCRIT 22.1 % (36.0-47.0); MEAN CORPUSCULAR HEMOGLOBIN 44.5 pg (27.0-33.4); MEAN CORPUSCULAR HGB CONC 35.3 g/dL (32.0-36.0); PLATELET COUNT 246 10^3/uL (150-450); RED BLOOD COUNT 1.76 10^6/uL (3.72-5.28); RED CELL DISTRIBUTION WIDTH 15.3 % (11.5-14.0); RETICULOCYTE COUNT (AUTO) 5.24 % (0.66-2.85); WHITE BLOOD COUNT 7.5 10^3/uL (4.0-10.5)
[2020-04-20 21:27] LABS: HEMOGLOBIN 7.8 g/dL (12.0-15.5)
[2020-04-20 21:28] LABS: MEAN CORPUSCULAR VOLUME 126 fl (80-97)
[2020-04-20 21:34] LABS: ALBUMIN 4.6 g/dL (3.5-5.0); ALKALINE PHOSPHATASE 148 U/L (38-126); ANION GAP 12 (5-19); ASPARTATE AMINO TRANSFERASE 55 U/L (14-36); BILIRUBIN,DIRECT 0.7 mg/dL (0.0-0.4); BILIRUBIN,TOTAL 4.2 mg/dL (0.2-1.3); BLOOD UREA NITROGEN 11 mg/dL (7-20); CALCIUM 9.3 mg/dL (8.4-10.2); CARBON DIOXIDE 17 mmol/L (22-30); CHLORIDE 110 mmol/L (98-107); GLUCOSE 100 mg/dL (75-110); TOTAL PROTEIN 8.1 g/dL (6.3-8.2)
[2020-04-20 21:43] LABS: ABSOLUTE LYMPHOCYTES# (MANUAL) 2.7 10^3/uL (0.5-4.7); ABSOLUTE MONOCYTES # (MANUAL) 0.2 10^3/uL (0.1-1.4); BASOPHILS % (MANUAL) 0 % (0-2); EOSINOPHILS % (MANUAL) 1 % (0-6); LYMPHOCYTES % (MANUAL) 36 % (13-45); MONOCYTES % (MANUAL) 2 % (3-13); NUCLEATED RED BLOOD CELLS 2 /100 WBC (0); SEGMENTED NEUTROPHILS % (MAN) 61 % (42-78); TOTAL CELLS COUNTED 100
[2020-04-20 21:44] LABS: PLATELET COMMENT ADEQUATE
[2020-04-20 21:45] LABS: ANISOCYTOSIS 2+; POIKILOCYTOSIS 2+; POLYCHROMASIA 1+
[2020-04-21] MEDS ORDERED: HYDROMORPHONE HCL INJ/PF 2 MG/ML AMPULE IV ONE (00:07)
[2020-04-21 01:36] LABS: APPEARANCE,URINE CLEAR; BILIRUBIN,URINE NEGATIVE (NEGATIVE); COLOR,URINE YELLOW; GLUCOSE, URINE NEGATIVE (NEGATIVE); KETONES,URINE NEGATIVE (NEGATIVE); LEUKOCYTE ESTERASE,URINE NEGATIVE (NEGATIVE); NITRITE,URINE NEGATIVE (NEGATIVE); PROTEIN,URINE NEGATIVE (NEGATIVE); URINE SPECIFIC GRAVITY 1.013
[2020-04-21] MEDS ORDERED: NORMAL SALINE 1000 ML 1,000 ML IV PRN (03:35)
[2020-04-21] MEDS: HYDROMORPHONE HCL INJ/PF 2 MG/ML AMPULE IV PRN ×9 (03:52→21:15)
[2020-04-21] MEDS: DIPHENHYDRAMINE HCL 50 MG/ML VIAL IV PRN ×2 (05:56→13:13)
--- NOTE | 2020-04-21 06:22 | EKG REPORT ---
SEVERITY:- NORMAL ECG - SINUS RHYTHM : Confirmed by: Killian Moraes MD 21-Apr-2020 06:21:36
[2020-04-21] MEDS: PROMETHAZINE HCL INJ 25 MG/1 ML VIAL IV PRN ×2 (08:01→15:20)
--- NOTE | 2020-04-21 08:34 | PDOC CONSULTATION ---
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 History of Present Illness Admission Date/PCP: 04/21/20 02:11 SAVANNA AWAN MD History of Present Illness: WILLIE ALAN is a 50 year old female who is admitted about every 6 weeks for pain crises. She was recently started on a new Sickle Cell medication (Oxbryta), but patient has not been taking this. She is usually stable on a low-dose oral narcotic at home. However, she states that 2 days ago her pain became much worse and was not able to control with oral meds. She presented to the ED with her typical sickle cell joint pain, but states that her chest pain today is different. It is sub-sternal and radiates to her back. Her baseline HGB is 7.5-8, but during crises, usually is 6-7. She does not usually require blood transfusions, but does receive Procrit while in house weekly. Her t roponin on arrival is normal. No other new complaints. She is maintained on Jadenu for iron overload. No recent fevers or dyspnea. No URI symptoms. 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 Denies: HIV Past Surgical History Past Surgical History: Reports: Appendectomy, Section, Cholecystectomy, Orthopedic Surgery - R knee, Tonsillectomy Denies: Amputation, Coronary Artery Bypass Graft, Gastric Bypass Surgery, Herniorrhaphy, Mastectomy, Pacemaker, Tubal Ligation Social History Smoking Status: Never Smoker Frequency of Alcohol Use: None Hx Recreational Drug Use: No Drugs: None Hx Prescription Drug Abuse: No Family History Family History: Reviewed & Not Pertinent Parental Family History Reviewed: Yes Children Family History Reviewed: Yes Sibling(s) Family History Reviewed.: Yes Medication/Allergy Home Medications: Deferasirox [Jadenu] 360 mg PO DAILY 08/13/19 Epoetin Federico [Procrit Inj 20,000 Unit/1 ml Vial (Renal)] 60,000 unit IJ FR@1000 08/13/19 Folic Acid 1 mg PO DAILY 08/13/19 Gabapentin [Neurontin 300 mg Capsule] 300 mg PO Q12 08/13/19 Hydroxyurea [Hydrea 500 mg Capsule] 500 mg PO TID 08/13/19 Oxycodone HCl [Oxy-Ir 5 mg Tablet] 10 mg PO Q6HP PRN 08/13/19 Cholecalciferol (Vitamin D3) [Vitamin D3 1000 Unit Tablet] 5,000 unit PO DAILY 11/29/19 Oxycodone Myristate [Xtampza ER] 27 mg PO Q12 11/29/19 Ergocalciferol (Vitamin D2) [Drisdol 50,000 unit (1.25MG) Capsule] 50,000 unit PO WE@1000 01/12/20 Multivitamin [Tab-A-Yosvany (Multiple Vitamin) Tablet] 1 tab PO DAILY 01/12/20 Allergies/Adverse Reactions: doxycycline [Doxycycline] Allergy (Severe, Verified 04/20/20 18:21) Review of Systems Constitutional: ABSENT: fever(s), headache(s) Eyes: ABSENT: visual disturbances Ears: ABSENT: hearing changes Nose, Mouth, and Throat: ABSENT: sore throat Cardiovascular: PRESENT: chest pain Respiratory: ABSENT: cough Gastrointestinal: ABSENT: constipation, nausea Genitourinary: ABSENT: dysuria Musculoskeletal: PRESENT: as per HPI, back pain Integumentary: ABSENT: rash Neurological: ABSENT: memory loss, weakness Hematologic/Lymphatic: ABSENT: easy bleeding Physical Exam Vital Signs: Temp Pulse Resp BP Pulse Ox 99.4 F 77 16 113/63 100 04/21/20 03:16 04/21/20 03:16 04/21/20 03:16 04/21/20 03:16 04/21/20 03:16 Intake & Output 04/20/20 04/21/20 04/22/20 06:59 06:59 06:59 Intake Total 1120 Balance 1120 Weight 57.8 kg General appearance: PRESENT: no acute distress, well-developed, well-nourished Head exam: PRESENT: normocephalic Eye exam: PRESENT: EOMI Mouth exam: PRESENT: moist Neck exam: ABSENT: lymphadenopathy, tenderness Respiratory exam: PRESENT: clear to auscultation carolyn, unlabored Cardiovascular exam: PRESENT: RRR GI/Abdominal exam: PRESENT: soft. ABSENT: tenderness Extremities exam: ABSENT: pedal edema Musculoskeletal exam: PRESENT: normal inspection Neurological exam: PRESENT: alert, awake, oriented to person, oriented to place, oriented to time, oriented to situation Psychiatric exam: PRESENT: appropriate affect Skin exam: PRESENT: normal color Results Laboratory Results: 04/20/20 20:59 04/20/20 20:59 04/20/20 04/20/20 04/20/20 20:59 20:59 20:59 WBC 7.5 RBC 1.76 L Hgb 7.8 L Hct 22.1 L MCV 126 H D MCH 44.5 H MCHC 35.3 RDW 15.3 H Plt Count 246 Seg Neutrophils % Not Reportable Retic Count (auto) 5.24 H Sodium 138.5 Potassium 4.0 Chloride 110 H Carbon Dioxide 17 L Anion Gap 12 BUN 11 Creatinine 0.63 Est GFR ( Amer) > 60 Glucose 100 Calcium 9.3 Total Bilirubin 4.2 H AST 55 H Alkaline Phosphatase 148 H Total Protein 8.1 Albumin 4.6 Lipase 50.3 Urine Color Urine Appearance Urine pH Ur Specific [place] Urine Protein Urine Glucose (UA) Urine Ketones Urine Blood Urine Nitrite Ur Leukocyte Esterase Urine WBC (Auto) Urine RBC (Auto) 04/21/20 00:16 WBC RBC Hgb Hct MCV MCH MCHC RDW Plt Count Seg Neutrophils % Retic Count (auto) Sodium Potassium Chloride Carbon Dioxide Anion Gap BUN Creatinine Est GFR ( Amer) Glucose Calcium Total Bilirubin AST Alkaline Phosphatase Total Protein Albumin Lipase Urine Color YELLOW Urine Appearance CLEAR Urine pH 5.0 Ur Specific [place] 1.013 Urine Protein NEGATIVE Urine Glucose (UA) NEGATIVE Urine Ketones NEGATIVE Urine Blood NEGATIVE Urine Nitrite NEGATIVE Ur Leukocyte Esterase NEGATIVE Urine WBC (Auto) 10 Urine RBC (Auto) 2 04/20/20 20:59 Troponin I < 0.012 Impressions: Chest X-Ray 04/20/20 18:25 IMPRESSION: NO SIGNIFICANT RADIOGRAPHIC FINDING IN THE CHEST. Assessment & Plan - Diagnosis (1) Sickle cell pain crisis Is this a current diagnosis for this admission?: Yes Plan: Will start her on IVF, O2, regular home medications, and will add Dilaudid, as is typical for her pain crises. Supportive measures. (2) Acute chest syndrome Is this a current diagnosis for this admission?: Yes Plan: It is often quite difficult to say if this is cardiac or just musclo-skeletal. However, I am concerned that her pain is quite different. Await EKG results. Her Troponin was negative. I will call [facility] to see if they have criteria for plasma exchange.
[2020-04-21] MEDS: OXYCODONE HCL SR 10 MG TABLET PO SCH ×2 (09:08→21:15)
[2020-04-21] MEDS: GABAPENTIN 300 MG CAPSULE PO SCH ×2 (09:08→21:15)
[2020-04-21] MEDS: CHOLECALCIFEROL (D3) 1,000 UNIT (25 MCG) TABLET PO SCH (09:08)
[2020-04-21] MEDS: HYDROXYUREA 500 MG CAPSULE PO SCH ×2 (09:09→21:34)
[2020-04-21 12:11] LABS: TARGET CELLS 2+
[2020-04-21 12:12] LABS: SICKLE RED CELLS 1+
[2020-04-21] MEDS: NORMAL SALINE 1000 ML 1,000 ML IV PRN (13:20)
[2020-04-21] MEDS: NORMAL SALINE 1000 ML 1,000 ML with POTASSIUM CHLORIDE 20 MEQ, MAGNESIUM SULFATE 8 MEQ,... IV SCH ×5 (17:28)
--- NOTE | 2020-04-21 19:39 | PDOC H&P ---
History of Present Illness Admission Date/PCP: 04/21/20 02:11 SAVANNA AWAN MD History of Present Illness: WILLIE ALAN is a 50 year old female She has sickle cell disease, she pres ented to the emergency room for evaluation of generalized body pains, chest pain, she has multiple hospitalization for the management of acute sickle cell crisis Past Medical History Cardiac Medical History: Reports: Heart Murmur Musculoskeltal Medical History: Denies: Arthritis, Fibromyalgia Psychiatric Medical History: Denies: Depression Hematology: Reports: Anemia - Sickle Cell, Sickle Cell Disease Infectious Medical History: 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 Past Surgical History Past Surgical History: Reports: Appendectomy, Section, Cholecystectomy, Orthopedic Surgery - R knee, Tonsillectomy Social History Smoking Status: Never Smoker Frequency of Alcohol Use: None Hx Recreational Drug Use: No Drugs: None Hx Prescription Drug Abuse: No Family History Family History: Reviewed & Not Pertinent Parental Family History Reviewed: Yes Children Family History Reviewed: Yes Sibling(s) Family History Reviewed.: Yes Medication/Allergy Home Medications: Deferasirox [Jadenu] 360 mg PO DAILY 08/13/19 Epoetin Federico [Procrit Inj 20,000 Unit/1 ml Vial (Renal)] 60,000 unit IJ FR@1000 08/13/19 Folic Acid 1 mg PO DAILY 08/13/19 Gabapentin [Neurontin 300 mg Capsule] 300 mg PO Q12 08/13/19 Hydroxyurea [Hydrea 500 mg Capsule] 500 mg PO TID 08/13/19 Oxycodone HCl [Oxy-Ir 5 mg Tablet] 10 mg PO Q6HP PRN 08/13/19 Cholecalciferol (Vitamin D3) [Vitamin D3 1000 Unit Tablet] 5,000 unit PO DAILY 11/29/19 Oxycodone Myristate [Xtampza ER] 27 mg PO Q12 11/29/19 Ergocalciferol (Vitamin D2) [Drisdol 50,000 unit (1.25MG) Capsule] 50,000 unit PO WE@1000 01/12/20 Multivitamin [Tab-A-Yosvany (Multiple Vitamin) Tablet] 1 tab PO DAILY 01/12/20 Allergies/Adverse Reactions: doxycycline [Doxycycline] Allergy (Severe, Verified 04/20/20 18:21) Review of Systems Eyes: ABSENT: visual disturbances Ears: ABSENT: hearing changes Cardiovascular: ABSENT: chest pain, dyspnea on exertion, edema, orthropnea, palpitations Respiratory: ABSENT: cough, hemoptysis Gastrointestinal: ABSENT: abdominal pain, constipation, diarrhea, hematemesis, hematochezia, nausea, vomiting Genitourinary: ABSENT: dysuria, hematuria Musculoskeletal: PRESENT: back pain. ABSENT: joint swelling Integumentary: ABSENT: rash, wounds Neurological: ABSENT: abnormal gait, abnormal speech, confusion, dizziness, focal weakness, syncope Psychiatric: ABSENT: anxiety, depression, homidical ideation, suicidal ideation Endocrine: ABSENT: cold intolerance, heat intolerance, menstrual abnormalities, polydipsia, polyuria Hematologic/Lymphatic: ABSENT: easy bleeding, easy bruising, lymphadenopathy Physical Exam Vital Signs: Temp Pulse Resp BP Pulse Ox 98.8 F 80 16 102/55 L 100 04/21/20 16:25 04/21/20 16:25 04/21/20 16:25 04/21/20 16:25 04/21/20 16:25 Intake & Output 04/20/20 04/21/20 04/22/20 06:59 06:59 06:59 Intake Total 1120 1971 Balance 1120 1971 Weight 57.8 kg General appearance: PRESENT: no acute distress Head exam: PRESENT: atraumatic, normocephalic Eye exam: PRESENT: conjunctiva pink, EOMI, PERRLA Ear exam: PRESENT: normal external ear exam Mouth exam: PRESENT: moist, tongue midline Neck exam: PRESENT: full ROM Respiratory exam: PRESENT: clear to auscultation carolyn Cardiovascular exam: PRESENT: RRR, +S1, +S2 Vascular exam: PRESENT: normal capillary refill GI/Abdominal exam: PRESENT: normal bowel sounds, soft. ABSENT: distended, guarding, mass, organolmegaly, rebound, tenderness Rectal exam: PRESENT: deferred Neurological exam: PRESENT: alert, CN II-XII grossly intact Psychiatric exam: PRESENT: appropriate affect, normal mood Skin exam: PRESENT: dry, intact, warm. ABSENT: cyanosis, rash Results Laboratory Results: 04/20/20 20:59 04/20/20 20:59 04/20/20 04/20/20 04/20/20 20:59 20:59 20:59 WBC 7.5 RBC 1.76 L Hgb 7.8 L Hct 22.1 L MCV 126 H D MCH 44.5 H MCHC 35.3 RDW 15.3 H Plt Count 246 Seg Neutrophils % Not Reportable Retic Count (auto) 5.24 H Sodium 138.5 Potassium 4.0 Chloride 110 H Carbon Dioxide 17 L Anion Gap 12 BUN 11 Creatinine 0.63 Est GFR ( Amer) > 60 Glucose 100 Calcium 9.3 Total Bilirubin 4.2 H AST 55 H Alkaline Phosphatase 148 H Total Protein 8.1 Albumin 4.6 Lipase 50.3 Urine Color Urine Appearance Urine pH Ur Specific [place] Urine Protein Urine Glucose (UA) Urine Ketones Urine Blood Urine Nitrite Ur Leukocyte Esterase Urine WBC (Auto) Urine RBC (Auto) 04/21/20 00:16 WBC RBC Hgb Hct MCV MCH MCHC RDW Plt Count Seg Neutrophils % Retic Count (auto) Sodium Potassium Chloride Carbon Dioxide Anion Gap BUN Creatinine Est GFR ( Amer) Glucose Calcium Total Bilirubin AST Alkaline Phosphatase Total Protein Albumin Lipase Urine Color YELLOW Urine Appearance CLEAR Urine pH 5.0 Ur Specific [place] 1.013 Urine Protein NEGATIVE Urine Glucose (UA) NEGATIVE Urine Ketones NEGATIVE Urine Blood NEGATIVE Urine Nitrite NEGATIVE Ur Leukocyte Esterase NEGATIVE Urine WBC (Auto) 10 Urine RBC (Auto) 2 04/20/20 20:59 Troponin I < 0.012 Impressions: Chest X-Ray 04/20/20 18:25 IMPRESSION: NO SIGNIFICANT RADIOGRAPHIC FINDING IN THE CHEST. Assessment & Plan - Diagnosis (1) Sickle cell anemia with crisis Is this a current diagnosis for this admission?: Yes Plan: Patient with multiple hospitalization for bone pain crisis, consultation requested from Dr. Viveros - Time Time Spent: 50 to 70 Minutes Smoking Cessation Education: 3 to 10 minutes Medications reviewed and adjusted accordingly: Yes Anticipated Discharge Disposition: Home, Self Care Anticipated Discharge Timeframe: within 24 hours - Inpatient Certification Based on my medical assessment, after consideration of the patient's comorbidities, presenting symptoms, or acuity I expect that the services needed warrant INPATIENT care.: Yes I certify that my determination is in accordance with my understanding of Medicare's requirements for reasonable and necessary INPATIENT services [42 CFR 412.3e].: Yes
[2020-04-22] MEDS: DIPHENHYDRAMINE HCL 50 MG/ML VIAL IV PRN ×4 (00:04→23:03)
[2020-04-22] MEDS: HYDROMORPHONE HCL INJ/PF 2 MG/ML AMPULE IV PRN ×9 (00:04→23:04)
[2020-04-22] MEDS: PROMETHAZINE HCL INJ 25 MG/1 ML VIAL IV PRN ×3 (03:18→19:47)
[2020-04-22] MEDS: NORMAL SALINE 1000 ML 1,000 ML IV PRN ×2 (06:52→13:54)
[2020-04-22 07:30] LABS: HEMATOCRIT 18.2 % (36.0-47.0); MEAN CORPUSCULAR HEMOGLOBIN 44.9 pg (27.0-33.4); MEAN CORPUSCULAR HGB CONC 35.6 g/dL (32.0-36.0); MEAN CORPUSCULAR VOLUME 126 fl (80-97); PLATELET COUNT 212 10^3/uL (150-450); RED BLOOD COUNT 1.44 10^6/uL (3.72-5.28); RED CELL DISTRIBUTION WIDTH 14.9 % (11.5-14.0); WHITE BLOOD COUNT 7.9 10^3/uL (4.0-10.5)
[2020-04-22 07:54] LABS: ALBUMIN 4.1 g/dL (3.5-5.0); ALKALINE PHOSPHATASE 129 U/L (38-126); ANION GAP 9 (5-19); ASPARTATE AMINO TRANSFERASE 54 U/L (14-36); BILIRUBIN,DIRECT 0.3 mg/dL (0.0-0.4); BILIRUBIN,TOTAL 3.2 mg/dL (0.2-1.3); BLOOD UREA NITROGEN 12 mg/dL (7-20); CALCIUM 9.3 mg/dL (8.4-10.2); CARBON DIOXIDE 21 mmol/L (22-30); CHLORIDE 110 mmol/L (98-107); GLUCOSE 105 mg/dL (75-110); POTASSIUM 4.6 mmol/L (3.6-5.0); TOTAL PROTEIN 7.2 g/dL (6.3-8.2)
--- NOTE | 2020-04-22 08:29 | PDOC PROGRESS REPORT ---
Subjective Progress Note for:: 04/22/20 Subjective:: Patient states she is frustrated to have to be in the hospital again with pain. She would prefer to be at home. Pain medicines are helping. We also discussed her jadenu and oxbryta. I have stressed the importance of taking both of these, even when in the hospital. She will try to find out from the pharmacy why they did not fill the oxbryta and will try to continue the jadenu. Reason For Visit: SICKLE CELL CRISIS Physical Exam Vital Signs: Temp Pulse Resp BP Pulse Ox 99.3 F 97 16 116/84 100 04/22/20 03:09 04/22/20 03:09 04/22/20 03:09 04/22/20 03:09 04/22/20 03:09 Intake & Output 04/21/20 04/22/20 04/23/20 06:59 06:59 06:59 Intake Total 1120 3891 1023 Output Total 1900 Balance 1120 1991 1023 Weight 57.8 kg 53.1 kg General appearance: PRESENT: no acute distress Head exam: PRESENT: normocephalic Eye exam: PRESENT: EOMI Respiratory exam: PRESENT: unlabored Extremities exam: ABSENT: pedal edema Neurological exam: PRESENT: alert, awake Psychiatric exam: PRESENT: appropriate affect Skin exam: PRESENT: normal color Results Laboratory Results: 04/22/20 06:45 04/22/20 06:45 Sodium 140.1 Potassium 4.6 Chloride 110 H Carbon Dioxide 21 L Anion Gap 9 BUN 12 Creatinine 0.79 Est GFR ( Amer) > 60 Glucose 105 Calcium 9.3 Total Bilirubin 3.2 H AST 54 H Alkaline Phosphatase 129 H Total Protein 7.2 Albumin 4.1 04/20/20 20:59 Troponin I < 0.012 Impressions: Chest X-Ray 04/20/20 18:25 IMPRESSION: NO SIGNIFICANT RADIOGRAPHIC FINDING IN THE CHEST. Assessment & Plan - Diagnosis (1) Sickle cell pain crisis Is this a current diagnosis for this admission?: Yes Plan: Continue treatment without changes. We discussed slowly weaning the OxyContin. She is agreeable to this, but will continue PRN meds. (2) Acute chest syndrome Is this a current diagnosis for this admission?: No Plan: I discussed with Dr. Malik at [facility]. Patient does NOT meet criteria for acute chest syndrome at this time and is appropriate to treat with local medical management as before. - Time Time Spent with patient: 15-24 minutes
[2020-04-22 09:08] LABS: ABSOLUTE LYMPHOCYTES# (MANUAL) 3.6 10^3/uL (0.5-4.7); ABSOLUTE MONOCYTES # (MANUAL) 0.5 10^3/uL (0.1-1.4); BASOPHILS % (MANUAL) 0 % (0-2); EOSINOPHILS % (MANUAL) 7 % (0-6); LYMPHOCYTES % (MANUAL) 43 % (13-45); MONOCYTES % (MANUAL) 6 % (3-13); NUCLEATED RED BLOOD CELLS 10 /100 WBC (0); SEGMENTED NEUTROPHILS % (MAN) 42 % (42-78); TOTAL CELLS COUNTED 100
[2020-04-22 09:11] LABS: POLYCHROMASIA 1+
[2020-04-22 09:12] LABS: ANISOCYTOSIS SLIGHT; OVALOCYTES 2+; PLATELET COMMENT ADEQUATE; POIKILOCYTOSIS 2+; SCHISTOCYTES SLIGHT; SICKLE RED CELLS SLIGHT; TARGET CELLS 1+
[2020-04-22 09:13] LABS: HEMOGLOBIN 6.5 g/dL (12.0-15.5)
[2020-04-22] MEDS: CHOLECALCIFEROL (D3) 1,000 UNIT (25 MCG) TABLET PO SCH (09:20)
[2020-04-22] MEDS: OXYCODONE HCL SR 10 MG TABLET PO SCH ×2 (09:20→23:02)
[2020-04-22] MEDS: HYDROXYUREA 500 MG CAPSULE PO SCH ×2 (09:20→23:03)
[2020-04-22] MEDS: GABAPENTIN 300 MG CAPSULE PO SCH ×2 (09:20→23:03)
[2020-04-22] MEDS: NORMAL SALINE 1000 ML 1,000 ML with POTASSIUM CHLORIDE 20 MEQ, MAGNESIUM SULFATE 8 MEQ,... IV SCH ×5 (17:00)
--- NOTE | 2020-04-22 23:23 | PDOC PROGRESS REPORT ---
Subjective Progress Note for:: 04/22/20 Subjective:: patient seen by the bedside ,still complain of pain Reason For Visit: SICKLE CELL CRISIS Physical Exam Vital Signs: Temp Pulse Resp BP Pulse Ox 98.8 F 86 16 90/53 L 97 04/22/20 20:14 04/22/20 20:14 04/22/20 20:14 04/22/20 20:14 04/22/20 20:14 Intake & Output 04/21/20 04/22/20 04/23/20 06:59 06:59 06:59 Intake Total 1120 3891 3045 Output Total 1900 900 Balance 1121990 Weight 57.8 kg 53.1 kg General appearance: PRESENT: no acute distress Eye exam: PRESENT: PERRLA Respiratory exam: PRESENT: clear to auscultation carolyn Cardiovascular exam: PRESENT: +S1, +S2 GI/Abdominal exam: PRESENT: soft Neurological exam: PRESENT: alert Results Laboratory Results: 04/22/20 06:45 04/22/20 06:45 04/22/20 04/22/20 06:45 06:45 WBC 7.9 RBC 1.44 L Hgb 6.5 L Hct 18.2 L MCV 126 H MCH 44.9 H MCHC 35.6 RDW 14.9 H Plt Count 212 Seg Neutrophils % Not Reportable Sodium 140.1 Potassium 4.6 Chloride 110 H Carbon Dioxide 21 L Anion Gap 9 BUN 12 Creatinine 0.79 Est GFR ( Amer) > 60 Glucose 105 Calcium 9.3 Total Bilirubin 3.2 H AST 54 H Alkaline Phosphatase 129 H Total Protein 7.2 Albumin 4.1 04/20/20 20:59 Troponin I < 0.012 Impressions: Chest X-Ray 04/20/20 18:25 IMPRESSION: NO SIGNIFICANT RADIOGRAPHIC FINDING IN THE CHEST. Assessment & Plan - Diagnosis (1) Sickle cell anemia with crisis Is this a current diagnosis for this admission?: Yes Plan: continue treatment - Time Time Spent with patient: 15-24 minutes Level of Care: IMCU Medications reviewed and adjusted accordingly: Yes Anticipated discharge: Home Anticipated DC Timeframe: within 72 hours
[2020-04-23] MEDS: HYDROMORPHONE HCL INJ/PF 2 MG/ML AMPULE IV PRN ×10 (01:10→23:29)
[2020-04-23] MEDS: NORMAL SALINE 1000 ML 1,000 ML IV PRN ×2 (03:50→15:00)
[2020-04-23] MEDS: PROMETHAZINE HCL INJ 25 MG/1 ML VIAL IV PRN ×3 (03:50→17:54)
[2020-04-23] MEDS: DIPHENHYDRAMINE HCL 50 MG/ML VIAL IV PRN ×3 (06:47→21:11)
--- NOTE | 2020-04-23 08:16 | PDOC PROGRESS REPORT ---
Subjective Progress Note for:: 04/23/20 Subjective:: Patient still reports pain is getting worse. No new complaints. She is awaiting pain meds now. Nurses report she sleeps soundly in between doses. She did get a banana bag last night, as ordered. She is wearing her oxygen this morning. She is not getting up to walk yet. Reason For Visit: SICKLE CELL CRISIS Physical Exam Vital Signs: Temp Pulse Resp BP Pulse Ox 98.6 F 83 18 86/49 L 98 04/23/20 00:01 04/23/20 00:01 04/23/20 00:01 04/23/20 00:01 04/23/20 00:01 Intake & Output 04/22/20 04/23/20 04/24/20 06:59 06:59 06:59 Intake Total 3891 5528 Output Total 1900 900 Balance 1990 46 Weight 53.1 kg 63 kg General appearance: PRESENT: no acute distress, well-developed, well-nourished Head exam: PRESENT: normocephalic Eye exam: PRESENT: EOMI Respiratory exam: PRESENT: unlabored Musculoskeletal exam: PRESENT: normal inspection Neurological exam: PRESENT: alert, awake Psychiatric exam: PRESENT: appropriate affect Skin exam: PRESENT: normal color Results Laboratory Results: 04/22/20 06:45 04/22/20 06:45 04/22/20 06:45 WBC 7.9 RBC 1.44 L Hgb 6.5 L Hct 18.2 L MCV 126 H MCH 44.9 H MCHC 35.6 RDW 14.9 H Plt Count 212 Seg Neutrophils % Not Reportable 04/20/20 20:59 Troponin I < 0.012 Impressions: Chest X-Ray 04/20/20 18:25 IMPRESSION: NO SIGNIFICANT RADIOGRAPHIC FINDING IN THE CHEST. Assessment & Plan - Diagnosis (1) Sickle cell pain crisis Is this a current diagnosis for this admission?: Yes Plan: Continue pain medications and supportive care. I have asked nursing staff to try to get her up in hallway at least daily. I will arrange for her procrit s hot today. - Time Time Spent with patient: Less than 15 minutes
[2020-04-23] MEDS: OXYCODONE HCL SR 10 MG TABLET PO SCH ×2 (09:58→21:10)
[2020-04-23] MEDS: GABAPENTIN 300 MG CAPSULE PO SCH ×2 (09:58→21:10)
[2020-04-23] MEDS: CHOLECALCIFEROL (D3) 1,000 UNIT (25 MCG) TABLET PO SCH (09:58)
[2020-04-23] MEDS ORDERED: EPOETIN ALFA-EPBX 40,000 UNIT/ML VIAL (NON-ESRD) SUBCUT ONE (10:00)
[2020-04-23] MEDS: HYDROXYUREA 500 MG CAPSULE PO SCH ×2 (10:13→21:10)
--- NOTE | 2020-04-23 15:48 | PDOC PROGRESS REPORT ---
Subjective Progress Note for:: 04/23/20 Subjective:: patient seen by the bedside ,still complain of pain Reason For Visit: SICKLE CELL CRISIS Physical Exam Vital Signs: Temp Pulse Resp BP Pulse Ox 99.0 F 80 16 115/76 100 04/23/20 15:24 04/23/20 15:24 04/23/20 15:24 04/23/20 15:24 04/23/20 15:24 Intake & Output 04/22/20 04/23/20 04/24/20 06:59 06:59 06:59 Intake Total 3891 5528 1400 Output Total 1900 900 Balance 1990 46 1400 Weight 53.1 kg 63 kg General appearance: PRESENT: no acute distress Eye exam: PRESENT: PERRLA Respiratory exam: PRESENT: clear to auscultation carolyn Cardiovascular exam: PRESENT: +S1, +S2 GI/Abdominal exam: PRESENT: soft Neurological exam: PRESENT: alert Results Laboratory Results: 04/22/20 06:45 04/22/20 06:45 04/20/20 20:59 Troponin I < 0.012 Impressions: Chest X-Ray 04/20/20 18:25 IMPRESSION: NO SIGNIFICANT RADIOGRAPHIC FINDING IN THE CHEST. Assessment & Plan - Diagnosis (1) Sickle cell anemia with crisis Is this a current diagnosis for this admission?: Yes Plan: continue treatment - Time Time Spent with patient: 25-34 minutes Level of Care: MEDICAL Anticipated discharge: Home - Inpatient Certification Based on my medical assessment, after consideration of the patient's comorbidi ties, presenting symptoms, or acuity I expect that the services needed warrant INPATIENT care.: Yes I certify that my determination is in accordance with my understanding of Arielle castro's requirements for reasonable and necessary INPATIENT services [42 CFR 412.3e].: Yes
[2020-04-23] MEDS: NORMAL SALINE 1000 ML 1,000 ML with POTASSIUM CHLORIDE 20 MEQ, MAGNESIUM SULFATE 8 MEQ,... IV SCH ×5 (17:08)
[2020-04-24] MEDS: PROMETHAZINE HCL INJ 25 MG/1 ML VIAL IV PRN ×4 (00:19→21:12)
[2020-04-24] MEDS: HYDROMORPHONE HCL INJ/PF 2 MG/ML AMPULE IV PRN ×10 (02:55→23:44)
[2020-04-24] MEDS: DIPHENHYDRAMINE HCL 50 MG/ML VIAL IV PRN ×3 (03:32→16:54)
[2020-04-24] MEDS: NORMAL SALINE 1000 ML 1,000 ML IV PRN ×2 (03:33→09:26)
[2020-04-24] MEDS: HYDROXYUREA 500 MG CAPSULE PO SCH ×2 (09:25→21:11)
[2020-04-24] MEDS: CHOLECALCIFEROL (D3) 1,000 UNIT (25 MCG) TABLET PO SCH (09:25)
[2020-04-24] MEDS: OXYCODONE HCL SR 10 MG TABLET PO SCH ×2 (09:25→21:12)
[2020-04-24] MEDS: GABAPENTIN 300 MG CAPSULE PO SCH ×2 (09:26→21:11)
[2020-04-24] MEDS: NORMAL SALINE 1000 ML 1,000 ML with POTASSIUM CHLORIDE 20 MEQ, MAGNESIUM SULFATE 8 MEQ,... IV SCH ×5 (17:00)
--- NOTE | 2020-04-24 20:24 | PDOC PROGRESS REPORT ---
Subjective Progress Note for:: 04/24/20 Subjective:: Patient was seen by the bedside, she has less pain, complain of pain in the upper extremity Reason For Visit: SICKLE CELL CRISIS Physical Exam Vital Signs: Temp Pulse Resp BP Pulse Ox 98.6 F 95 18 98/52 L 100 04/24/20 15:24 04/24/20 15:24 04/24/20 15:24 04/24/20 15:24 04/24/20 15:24 Intake & Output 04/23/20 04/24/20 04/25/20 06:59 06:59 06:59 Intake Total 5528 3723 1882 Output Total 900 Balance 4628 3723 1882 Weight 63 kg 63 kg General appearance: PRESENT: no acute distress Eye exam: PRESENT: PERRLA Respiratory exam: PRESENT: clear to auscultation carolyn Cardiovascular exam: PRESENT: +S1, +S2 GI/Abdominal exam: PRESENT: soft Neurological exam: PRESENT: alert Results Laboratory Results: 04/22/20 06:45 04/22/20 06:45 04/20/20 20:59 Troponin I < 0.012 Impressions: Chest X-Ray 04/20/20 18:25 IMPRESSION: NO SIGNIFICANT RADIOGRAPHIC FINDING IN THE CHEST. Assessment & Plan - Diagnosis (1) Sickle cell anemia with crisis Is this a current diagnosis for this admission?: Yes Plan: continue treatment - Time Time Spent with patient: 15-24 minutes Level of Care: MEDICAL Medications reviewed and adjusted accordingly: Yes Anticipated discharge: Home Anticipated DC Timeframe: Other
[2020-04-25] MEDS: DIPHENHYDRAMINE HCL 50 MG/ML VIAL IV PRN ×3 (01:43→17:08)
[2020-04-25] MEDS: HYDROMORPHONE HCL INJ/PF 2 MG/ML AMPULE IV PRN ×9 (01:44→22:33)
[2020-04-25] MEDS: PROMETHAZINE HCL INJ 25 MG/1 ML VIAL IV PRN ×3 (06:44→22:34)
[2020-04-25] MEDS: NORMAL SALINE 1000 ML 1,000 ML IV PRN ×2 (06:44→11:36)
--- NOTE | 2020-04-25 08:14 | PDOC PROGRESS REPORT ---
Subjective Progress Note for:: 04/25/20 Subjective:: Patient states that she is feeling about the same. She did not get up to walk, but she was up in a chair for a while yesterday. Her left arm is "swollen." Reason For Visit: SICKLE CELL CRISIS Physical Exam Vital Signs: Temp Pulse Resp BP Pulse Ox 99.5 F 99 17 111/67 100 04/24/20 19:15 04/24/20 19:15 04/24/20 19:15 04/24/20 19:15 04/24/20 19:15 Intake & Output 04/24/20 04/25/20 04/26/20 06:59 06:59 06:59 Intake Total 3723 2905 Balance 3723 2905 Weight 63 kg General appearance: PRESENT: no acute distress, well-developed, well-nourished Exam: In obvious pain. Eye exam: PRESENT: EOMI, PERRLA Mouth exam: PRESENT: moist Respiratory exam: PRESENT: clear to auscultation carolyn, unlabored Cardiovascular exam: PRESENT: RRR GI/Abdominal exam: PRESENT: soft. ABSENT: tenderness Extremities exam: PRESENT: other - Left shoulder with chronic dislocation. It does not appear increased from her baseline. No warmth or erythema.. ABSENT: pedal edema Neurological exam: PRESENT: alert, awake Psychiatric exam: PRESENT: appropriate affect Skin exam: PRESENT: normal color Results Laboratory Results: 04/20/20 20:59 Troponin I < 0.012 Impressions: Chest X-Ray 04/20/20 18:25 IMPRESSION: NO SIGNIFICANT RADIOGRAPHIC FINDING IN THE CHEST. Assessment & Plan - Diagnosis (1) Sickle cell pain crisis Is this a current diagnosis for this admission?: Yes Plan: Continue current management. She is at high risk for DVT, so will add WILLIAMS and SCDs and ENCOURAGE AMBULATION. - Time Time Spent with patient: Less than 15 minutes
[2020-04-25 08:16] LABS: HEMATOCRIT 15.6 % (36.0-47.0); MEAN CORPUSCULAR HEMOGLOBIN 45.9 pg (27.0-33.4); MEAN CORPUSCULAR HGB CONC 36.4 g/dL (32.0-36.0); MEAN CORPUSCULAR VOLUME 126 fl (80-97); PLATELET COUNT 199 10^3/uL (150-450); RED BLOOD COUNT 1.24 10^6/uL (3.72-5.28); RED CELL DISTRIBUTION WIDTH 15.6 % (11.5-14.0); WHITE BLOOD COUNT 6.9 10^3/uL (4.0-10.5)
[2020-04-25 08:42] LABS: ALBUMIN 3.6 g/dL (3.5-5.0); ALKALINE PHOSPHATASE 118 U/L (38-126); ANION GAP 7 (5-19); ASPARTATE AMINO TRANSFERASE 56 U/L (14-36); BILIRUBIN,DIRECT 0.2 mg/dL (0.0-0.4); BILIRUBIN,TOTAL 2.9 mg/dL (0.2-1.3); BLOOD UREA NITROGEN 11 mg/dL (7-20); CALCIUM 8.6 mg/dL (8.4-10.2); CARBON DIOXIDE 25 mmol/L (22-30); CHLORIDE 106 mmol/L (98-107); GLUCOSE 103 mg/dL (75-110); POTASSIUM 4.3 mmol/L (3.6-5.0); TOTAL PROTEIN 6.5 g/dL (6.3-8.2)
[2020-04-25 08:47] LABS: ABSOLUTE LYMPHOCYTES# (MANUAL) 2.2 10^3/uL (0.5-4.7); ABSOLUTE MONOCYTES # (MANUAL) 0.3 10^3/uL (0.1-1.4); BASOPHILS % (MANUAL) 0 % (0-2); EOSINOPHILS % (MANUAL) 9 % (0-6); LYMPHOCYTES % (MANUAL) 31 % (13-45); MONOCYTES % (MANUAL) 4 % (3-13); NUCLEATED RED BLOOD CELLS 28 /100 WBC (0); SEGMENTED NEUTROPHILS % (MAN) 55 % (42-78); TOTAL CELLS COUNTED 100
[2020-04-25 08:49] LABS: ANISOCYTOSIS 1+
[2020-04-25 08:51] LABS: PLATELET COMMENT ADEQUATE
[2020-04-25 08:52] LABS: OVALOCYTES 2+; POIKILOCYTOSIS 2+; POLYCHROMASIA 1+; SCHISTOCYTES SLIGHT; SICKLE RED CELLS 1+; TARGET CELLS 1+; TEAR DROP CELLS 1+
[2020-04-25 08:55] LABS: HEMOGLOBIN 5.7 g/dL (12.0-15.5)
[2020-04-25] MEDS: HYDROXYUREA 500 MG CAPSULE PO SCH ×2 (09:00→22:34)
[2020-04-25] MEDS: GABAPENTIN 300 MG CAPSULE PO SCH ×2 (09:00→22:34)
[2020-04-25] MEDS: CHOLECALCIFEROL (D3) 1,000 UNIT (25 MCG) TABLET PO SCH (09:00)
[2020-04-25] MEDS: OXYCODONE HCL SR 10 MG TABLET PO SCH ×2 (10:05→22:34)
[2020-04-25] MEDS: NORMAL SALINE 1000 ML 1,000 ML with POTASSIUM CHLORIDE 20 MEQ, MAGNESIUM SULFATE 8 MEQ,... IV SCH ×5 (17:08)
--- NOTE | 2020-04-25 17:35 | PDOC PROGRESS REPORT ---
Subjective Progress Note for:: 04/25/20 Subjective:: Patient was seen by the bedside, she has less pain, complain of pain in the upper extremity Reason For Visit: SICKLE CELL CRISIS Physical Exam Vital Signs: Temp Pulse Resp BP Pulse Ox 99.7 F 90 18 91/55 L 100 04/25/20 15:34 04/25/20 15:34 04/25/20 15:34 04/25/20 15:34 04/25/20 15:34 Intake & Output 04/24/20 04/25/20 04/26/20 06:59 06:59 06:59 Intake Total 3723 2905 730 Balance 3723 2905 730 Weight 63 kg General appearance: PRESENT: no acute distress Eye exam: PRESENT: PERRLA Respiratory exam: PRESENT: clear to auscultation carolyn Cardiovascular exam: PRESENT: +S1, +S2 GI/Abdominal exam: PRESENT: soft Neurological exam: PRESENT: alert Results Laboratory Results: 04/25/20 07:45 04/25/20 07:45 04/25/20 04/25/20 07:45 07:45 WBC 6.9 RBC 1.24 L Hgb 5.7 L Hct 15.6 L MCV 126 H MCH 45.9 H MCHC 36.4 H RDW 15.6 H Plt Count 199 Seg Neutrophils % Not Reportable Sodium 138.0 Potassium 4.3 Chloride 106 Carbon Dioxide 25 Anion Gap 7 BUN 11 Creatinine 0.62 Est GFR ( Amer) > 60 Glucose 103 Calcium 8.6 Total Bilirubin 2.9 H AST 56 H Alkaline Phosphatase 118 Total Protein 6.5 Albumin 3.6 04/20/20 20:59 Troponin I < 0.012 Impressions: Chest X-Ray 04/20/20 18:25 IMPRESSION: NO SIGNIFICANT RADIOGRAPHIC FINDING IN THE CHEST. Assessment & Plan - Diagnosis (1) Sickle cell anemia with crisis Is this a current diagnosis for this admission?: Yes Plan: continue treatment - Time Time Spent with patient: Less than 15 minutes Level of Care: MEDICAL Medications reviewed and adjusted accordingly: Yes Anticipated discharge: Home
[2020-04-26] MEDS: DIPHENHYDRAMINE HCL 50 MG/ML VIAL IV PRN ×4 (00:31→22:03)
[2020-04-26] MEDS: HYDROMORPHONE HCL INJ/PF 2 MG/ML AMPULE IV PRN ×10 (00:34→22:03)
[2020-04-26] MEDS: NORMAL SALINE 1000 ML 1,000 ML IV PRN ×2 (03:47→10:47)
[2020-04-26] MEDS: PROMETHAZINE HCL INJ 25 MG/1 ML VIAL IV PRN (06:22)
--- NOTE | 2020-04-26 10:24 | PDOC PROGRESS REPORT ---
Subjective Progress Note for:: 04/26/20 Subjective:: Patient was admitted with a sickle cell crisis as usual Currently on chronic pain medications No other new complaints Reason For Visit: SICKLE CELL CRISIS Physical Exam Vital Signs: Temp Pulse Resp BP Pulse Ox 99.3 F 91 18 97/58 L 97 04/26/20 07:05 04/26/20 07:05 04/26/20 07:05 04/26/20 07:05 04/26/20 07:05 Intake & Output 04/25/20 04/26/20 04/27/20 06:59 06:59 06:59 Intake Total 2905 3793 Balance 2905 3793 Weight 71.5 kg General appearance: PRESENT: no acute distress, well-developed, well-nourished Head exam: PRESENT: atraumatic, normocephalic Eye exam: PRESENT: conjunctiva pink, EOMI, PERRLA. ABSENT: scleral icterus Ear exam: PRESENT: normal external ear exam Mouth exam: PRESENT: moist, tongue midline Neck exam: PRESENT: full ROM. ABSENT: carotid bruit, JVD, lymphadenopathy, thyromegaly Respiratory exam: PRESENT: clear to auscultation carolyn Cardiovascular exam: PRESENT: RRR. ABSENT: diastolic murmur, rubs, systolic murmur Vascular exam: PRESENT: normal capillary refill GI/Abdominal exam: PRESENT: normal bowel sounds, soft. ABSENT: distended, guarding, mass, organolmegaly, rebound, tenderness Rectal exam: PRESENT: deferred Neurological exam: PRESENT: alert, awake, oriented to person, oriented to place, oriented to time, oriented to situation, CN II-XII grossly intact. ABSENT: motor sensory deficit Psychiatric exam: PRESENT: appropriate affect, normal mood. ABSENT: homicidal ideation, suicidal ideation Skin exam: PRESENT: dry, intact, warm. ABSENT: cyanosis, rash Results Laboratory Results: 04/25/20 07:45 04/25/20 07:45 04/20/20 20:59 Troponin I < 0.012 Impressions: Chest X-Ray 04/20/20 18:25 IMPRESSION: NO SIGNIFICANT RADIOGRAPHIC FINDING IN THE CHEST. 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
--- NOTE | 2020-04-26 10:38 | PDOC PROGRESS REPORT ---
Subjective Progress Note for:: 04/26/20 Subjective:: Patient with increased pain today. She is able to sit up in bed but has not been up. She is not wearing her oxygen today. Reason For Visit: SICKLE CELL CRISIS Physical Exam Vital Signs: Temp Pulse Resp BP Pulse Ox 99.3 F 91 18 97/58 L 97 04/26/20 07:05 04/26/20 07:05 04/26/20 07:05 04/26/20 07:05 04/26/20 07:05 Intake & Output 04/25/20 04/26/20 04/27/20 06:59 06:59 06:59 Intake Total 2905 3793 Balance 2905 3793 Weight 71.5 kg General appearance: PRESENT: no acute distress, well-developed, well-nourished Exam: In obvious pain. Has a heating pack to left arm. Head exam: PRESENT: normocephalic Eye exam: PRESENT: EOMI, PERRLA Respiratory exam: PRESENT: unlabored Extremities exam: ABSENT: joint swelling Neurological exam: PRESENT: alert, awake Psychiatric exam: PRESENT: appropriate affect Skin exam: PRESENT: normal color Results Laboratory Results: 04/25/20 07:45 04/25/20 07:45 04/20/20 20:59 Troponin I < 0.012 Impressions: Chest X-Ray 04/20/20 18:25 IMPRESSION: NO SIGNIFICANT RADIOGRAPHIC FINDING IN THE CHEST. Assessment & Plan - Diagnosis (1) Sickle cell pain crisis Is this a current diagnosis for this admission?: Yes Plan: I will increase her Dilaudid today. Her HGB is lower but Bili improved. She received EPO a few days ago. No indication for blood transfusions at present. Continue to encourage her to walk in [place] as much as possible. - Time Time Spent with patient: Less than 15 minutes
[2020-04-26] MEDS: CHOLECALCIFEROL (D3) 1,000 UNIT (25 MCG) TABLET PO SCH (10:39)
[2020-04-26] MEDS: GABAPENTIN 300 MG CAPSULE PO SCH ×2 (10:40→22:03)
[2020-04-26] MEDS: HYDROXYUREA 500 MG CAPSULE PO SCH ×2 (10:40→22:03)
[2020-04-26] MEDS: OXYCODONE HCL SR 10 MG TABLET PO SCH ×2 (10:40→22:52)
[2020-04-26] MEDS ORDERED: HYDROMORPHONE HCL INJ/PF 2 MG/ML AMPULE ONE (10:54)
[2020-04-26] MEDS: NORMAL SALINE 1000 ML 1,000 ML with POTASSIUM CHLORIDE 20 MEQ, MAGNESIUM SULFATE 8 MEQ,... IV SCH ×5 (17:21)
[2020-04-27] MEDS: HYDROMORPHONE HCL INJ/PF 2 MG/ML AMPULE IV PRN ×9 (00:31→21:18)
[2020-04-27] MEDS: PROMETHAZINE HCL INJ 25 MG/1 ML VIAL IV PRN ×4 (00:38→21:20)
[2020-04-27] MEDS: DIPHENHYDRAMINE HCL 50 MG/ML VIAL IV PRN ×3 (04:18→18:08)
[2020-04-27] MEDS: NORMAL SALINE 1000 ML 1,000 ML IV PRN ×2 (04:23→09:18)
[2020-04-27] MEDS: CHOLECALCIFEROL (D3) 1,000 UNIT (25 MCG) TABLET PO SCH (09:12)
[2020-04-27] MEDS: GABAPENTIN 300 MG CAPSULE PO SCH ×2 (09:12→21:18)
[2020-04-27] MEDS: OXYCODONE HCL SR 10 MG TABLET PO SCH ×2 (09:12→21:18)
[2020-04-27] MEDS: HYDROXYUREA 500 MG CAPSULE PO SCH ×2 (09:14→21:18)
--- NOTE | 2020-04-27 10:09 | PDOC PROGRESS REPORT ---
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 ABSENT: scleral icterus Ear exam: PRESENT: normal external ear exam Mouth exam: PRESENT: moist, tongue midline Neck exam: PRESENT: full ROM. ABSENT: carotid bruit, JVD, lymphadenopathy, thyromegaly Respiratory exam: PRESENT: clear to auscultation carolyn Cardiovascular exam: PRESENT: RRR. ABSENT: diastolic murmur, rubs, systolic murmur Vascular exam: PRESENT: normal capillary refill GI/Abdominal exam: PRESENT: normal bowel sounds, soft. ABSENT: distended, guarding, mass, organolmegaly, rebound, tenderness Rectal exam: PRESENT: deferred Neurological exam: PRESENT: alert, awake, oriented to person, oriented to place, oriented to time, oriented to situation, CN II-XII grossly intact. ABSENT: motor sensory deficit Psychiatric exam: PRESENT: appropriate affect, normal mood. ABSENT: homicidal ideation, suicidal ideation Skin exam: PRESENT: dry, intact, warm. ABSENT: cyanosis, rash Results Laboratory Results: 04/25/20 07:45 04/25/20 07:45 04/20/20 20:59 Troponin I < 0.012 Impressions: Chest X-Ray 04/20/20 18:25 IMPRESSION: NO SIGNIFICANT RADIOGRAPHIC FINDING IN THE CHEST. 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
[2020-04-27] MEDS: NORMAL SALINE 1000 ML 1,000 ML with POTASSIUM CHLORIDE 20 MEQ, MAGNESIUM SULFATE 8 MEQ,... IV SCH ×5 (18:07)
[2020-04-28] MEDS: HYDROMORPHONE HCL INJ/PF 2 MG/ML AMPULE IV PRN ×10 (00:55→21:07)
[2020-04-28] MEDS: DIPHENHYDRAMINE HCL 50 MG/ML VIAL IV PRN ×4 (00:55→21:07)
[2020-04-28] MEDS: NORMAL SALINE 1000 ML 1,000 ML IV PRN ×2 (02:26→09:30)
[2020-04-28] MEDS: PROMETHAZINE HCL INJ 25 MG/1 ML VIAL IV PRN ×3 (03:19→18:56)
--- NOTE | 2020-04-28 08:22 | PDOC PROGRESS REPORT ---
Subjective Date:: 04/28/20 Subjective:: Patient is still in significant pain. Increased pain meds helped, but still is not providing pain relief. She has not been able to walk. She is not eating or drinking much. No other complaints today. She remains afebrile. Reason For Visit: SICKLE CELL CRISIS Physical Exam Vital Signs: Temp Pulse Resp BP Pulse Ox 98.6 F 92 12 95/65 L 92 04/27/20 23:54 04/27/20 23:54 04/27/20 23:54 04/27/20 23:54 04/27/20 23:54 Intake & Output 04/27/20 04/28/20 04/29/20 06:59 06:59 06:59 Intake Total 5023 4249 Output Total 4000 Balance 5023 249 Weight 72.5 kg 72.5 kg General appearance: PRESENT: no acute distress Head exam: PRESENT: normocephalic Eye exam: PRESENT: EOMI Respiratory exam: PRESENT: unlabored Extremities exam: ABSENT: pedal edema Musculoskeletal exam: PRESENT: normal inspection Neurological exam: PRESENT: alert, awake Psychiatric exam: PRESENT: appropriate affect Skin exam: PRESENT: normal color Results Laboratory Results: 04/25/20 07:45 04/25/20 07:45 04/20/20 20:59 Troponin I < 0.012 Impressions: Chest X-Ray 04/20/20 18:25 IMPRESSION: NO SIGNIFICANT RADIOGRAPHIC FINDING IN THE CHEST. Assessment & Plan - Diagnosis (1) Sickle cell pain crisis Is this a current diagnosis for this admission?: Yes Plan: Continue current meds. No changes today. Encourage ambulation. - Time Time Spent with patient: Less than 15 minutes
[2020-04-28] MEDS: GABAPENTIN 300 MG CAPSULE PO SCH ×2 (09:51→21:08)
[2020-04-28] MEDS: OXYCODONE HCL SR 10 MG TABLET PO SCH ×2 (09:51→21:08)
[2020-04-28] MEDS: CHOLECALCIFEROL (D3) 1,000 UNIT (25 MCG) TABLET PO SCH (09:51)
[2020-04-28] MEDS: HYDROXYUREA 500 MG CAPSULE PO SCH ×2 (09:52→21:08)
[2020-04-28] MEDS: NORMAL SALINE 1000 ML 1,000 ML with POTASSIUM CHLORIDE 20 MEQ, MAGNESIUM SULFATE 8 MEQ,... IV SCH ×5 (17:00)
--- NOTE | 2020-04-28 19:52 | PDOC PROGRESS REPORT ---
Subjective Date:: 04/28/20 Subjective:: Patient was seen by the bedside, she still complain of pain Reason For Visit: SICKLE CELL CRISIS Physical Exam Vital Signs: Temp Pulse Resp BP Pulse Ox 100.3 F 95 19 111/57 L 92 04/28/20 15:44 04/28/20 15:44 04/28/20 15:44 04/28/20 15:44 04/28/20 15:44 Intake & Output 04/27/20 04/28/20 04/29/20 06:59 06:59 06:59 Intake Total 5023 4249 2784 Output Total 4000 3600 Balance 5023 249 -816 Weight 72.5 kg 72.5 kg General appearance: PRESENT: no acute distress Eye exam: PRESENT: PERRLA Respiratory exam: PRESENT: clear to auscultation carolyn Cardiovascular exam: PRESENT: +S1, +S2 GI/Abdominal exam: PRESENT: soft Neurological exam: PRESENT: alert Results Laboratory Results: 04/25/20 07:45 04/25/20 07:45 04/20/20 20:59 Troponin I < 0.012 Impressions: Chest X-Ray 04/20/20 18:25 IMPRESSION: NO SIGNIFICANT RADIOGRAPHIC FINDING IN THE CHEST. Assessment & Plan - Diagnosis (1) Sickle cell anemia with crisis Is this a current diagnosis for this admission?: Yes Plan: continue treatment - Time Time Spent with patient: 15-24 minutes Level of Care: IMCU Medications reviewed and adjusted accordingly: Yes Anticipated discharge: Home Anticipated DC Timeframe: within 72 hours
[2020-04-29] MEDS: HYDROMORPHONE HCL INJ/PF 2 MG/ML AMPULE IV PRN ×11 (00:22→23:41)
[2020-04-29] MEDS: PROMETHAZINE HCL INJ 25 MG/1 ML VIAL IV PRN ×4 (02:30→23:42)
[2020-04-29] MEDS: NORMAL SALINE 1000 ML 1,000 ML IV PRN ×2 (02:32→12:05)
[2020-04-29] MEDS: DIPHENHYDRAMINE HCL 50 MG/ML VIAL IV PRN ×3 (05:47→18:56)
[2020-04-29 07:06] LABS: HEMATOCRIT 15.1 % (36.0-47.0); MEAN CORPUSCULAR HEMOGLOBIN 47.6 pg (27.0-33.4); MEAN CORPUSCULAR HGB CONC 36.9 g/dL (32.0-36.0); MEAN CORPUSCULAR VOLUME 129 fl (80-97); PLATELET COUNT 190 10^3/uL (150-450); RED BLOOD COUNT 1.17 10^6/uL (3.72-5.28); RED CELL DISTRIBUTION WIDTH 18.7 % (11.5-14.0); WHITE BLOOD COUNT 5.5 10^3/uL (4.0-10.5)
[2020-04-29 07:24] LABS: ALBUMIN 3.7 g/dL (3.5-5.0); ALKALINE PHOSPHATASE 153 U/L (38-126); ANION GAP 7 (5-19); ASPARTATE AMINO TRANSFERASE 78 U/L (14-36); BILIRUBIN,DIRECT 0.7 mg/dL (0.0-0.4); BILIRUBIN,TOTAL 4.3 mg/dL (0.2-1.3); BLOOD UREA NITROGEN 9 mg/dL (7-20); CALCIUM 8.8 mg/dL (8.4-10.2); CARBON DIOXIDE 27 mmol/L (22-30); CHLORIDE 106 mmol/L (98-107); GLUCOSE 93 mg/dL (75-110); POTASSIUM 4.7 mmol/L (3.6-5.0); TOTAL PROTEIN 6.6 g/dL (6.3-8.2)
[2020-04-29 07:36] LABS: HEMOGLOBIN 5.6 g/dL (12.0-15.5)
[2020-04-29 07:41] LABS: ABSOLUTE LYMPHOCYTES# (MANUAL) 2.2 10^3/uL (0.5-4.7); ABSOLUTE MONOCYTES # (MANUAL) 0.3 10^3/uL (0.1-1.4); BASOPHILS % (MANUAL) 1 % (0-2); EOSINOPHILS % (MANUAL) 4 % (0-6); LYMPHOCYTES % (MANUAL) 40 % (13-45); MONOCYTES % (MANUAL) 5 % (3-13); NUCLEATED RED BLOOD CELLS 106 /100 WBC (0); SEGMENTED NEUTROPHILS % (MAN) 50 % (42-78); TOTAL CELLS COUNTED 100
[2020-04-29 07:44] LABS: PLATELET COMMENT ADEQUATE; PLATELET LARGE PRESENT; POIKILOCYTOSIS 1+; POLYCHROMASIA 1+; SICKLE RED CELLS SLIGHT; TARGET CELLS SLIGHT
--- NOTE | 2020-04-29 08:02 | PDOC PROGRESS REPORT ---
Subjective Date:: 04/29/20 Subjective:: Patient complaining of swelling in her arms. She has not been up to walk yet, d espite encouragement. She states that she was up in chair for a while last evening. She is also having blood in her urine. ROS: No dyspnea. joint pains continue. No chest pain. Reason For Visit: SICKLE CELL CRISIS Physical Exam Vital Signs: Temp Pulse Resp BP Pulse Ox 99.4 F 93 18 100/51 L 94 04/28/20 19:42 04/28/20 19:42 04/28/20 19:42 04/28/20 19:42 04/28/20 19:42 Intake & Output 04/28/20 04/29/20 04/30/20 06:59 06:59 06:59 Intake Total 4249 3807 Output Total 4000 5600 Balance 249 -1793 Weight 72.5 kg 72.5 kg General appearance: PRESENT: no acute distress Exam: wearing her oxygen this morning. Head exam: PRESENT: normocephalic Eye exam: PRESENT: EOMI Mouth exam: PRESENT: moist Respiratory exam: PRESENT: clear to auscultation carolyn, unlabored Cardiovascular exam: PRESENT: RRR GI/Abdominal exam: PRESENT: soft. ABSENT: tenderness Extremities exam: ABSENT: pedal edema Neurological exam: PRESENT: alert, awake Psychiatric exam: PRESENT: appropriate affect Skin exam: PRESENT: normal color Results Laboratory Results: 04/29/20 05:40 04/29/20 05:40 04/29/20 04/29/20 05:40 05:40 WBC 5.5 RBC 1.17 L Hgb 5.6 L Hct 15.1 L MCV 129 H MCH 47.6 H MCHC 36.9 H RDW 18.7 H Plt Count 190 Seg Neutrophils % Not Reportable Sodium 140.1 Potassium 4.7 Chloride 106 Carbon Dioxide 27 Anion Gap 7 BUN 9 Creatinine 0.72 Est GFR ( Amer) > 60 Glucose 93 Calcium 8.8 Total Bilirubin 4.3 H AST 78 H Alkaline Phosphatase 153 H Total Protein 6.6 Albumin 3.7 04/20/20 20:59 Troponin I < 0.012 Impressions: Chest X-Ray 04/20/20 18:25 IMPRESSION: NO SIGNIFICANT RADIOGRAPHIC FINDING IN THE CHEST. Assessment & Plan - Diagnosis (1) Sickle cell pain crisis Is this a current diagnosis for this admission?: Yes Plan: Continue current medical management. Labs are stable. Afebrile. I will check UA and urine culture if indicated. - Time Time Spent with patient: 15-24 minutes
[2020-04-29] MEDS: HYDROXYUREA 500 MG CAPSULE PO SCH ×2 (09:58→21:13)
[2020-04-29] MEDS: GABAPENTIN 300 MG CAPSULE PO SCH ×2 (09:58→21:12)
[2020-04-29] MEDS: OXYCODONE HCL SR 10 MG TABLET PO SCH ×2 (09:58→21:12)
[2020-04-29] MEDS: CHOLECALCIFEROL (D3) 1,000 UNIT (25 MCG) TABLET PO SCH (09:58)
--- NOTE | 2020-04-29 13:51 | RADIOLOGY REPORT (SQ) ---
EXAM DESCRIPTION: VENOUS UNILATERAL UPPER IMAGES COMPLETED DATE/TIME: 04/29/2020 1:04 pm REASON FOR STUDY: L UPPER EXTREMITY PAIN, R/O DVT COMPARISON: None. 01/21/2020 TECHNIQUE: Dynamic and static mart scale and color images acquired of the left arm venous system. Se lected spectral images acquired with additional compression and augmentation maneuvers. The contralat eral subclavian vein and internal jugular vein were also imaged. Images stored on PACS. LIMITATIONS: None. FINDINGS: INTERNAL JUGULAR VEIN: Normal phasicity, compression, augmentation. No visualized echogeni c material on mart scale. No defects on color images. Comparison opposite side normal. SUBCLAVIAN VEIN: Normal compression, augmentation. No visualized echogenic material on mart scale. No defects on color images. AXILLARY VEIN: Normal compression, augmentation. No visualized echogenic material on mart scale. No d efects on color images. BRACHIAL VEIN: Normal compression, augmentation. No visualized echogenic material on mart scale. No d efects on color images. BASILIC VEIN: Normal compression, augmentation. No visualized echogenic material on mart scale. No de fects on color images. CEPHALIC VEIN: Normal compression, augmentation. No visualized echogenic material on mart scale. No d efects on color images. OTHER: No other significant finding. CONTRALATERAL SUBCLAVIAN VEIN AND INTERNAL JUGULAR VEIN: Normal phasicity, compression and augmentation. No visualized echogenic material on mart scale. No de fects on color images. IMPRESSION: NO EVIDENCE DVT OR SVT IN THE LEFT ARM. TECHNICAL DOCUMENTATION: JOB ID: [id number] 2010 [employer]- All Rights Reserved Reading location - IP/workstation name: [email or web address]
[2020-04-29] MEDS: NORMAL SALINE 1000 ML 1,000 ML with POTASSIUM CHLORIDE 20 MEQ, MAGNESIUM SULFATE 8 MEQ,... IV SCH ×5 (17:31)
--- NOTE | 2020-04-29 20:56 | PDOC PROGRESS REPORT ---
Subjective Date:: 04/29/20 Subjective:: Patient was seen by the bedside, she still complain of pain Reason For Visit: SICKLE CELL CRISIS Physical Exam Vital Signs: Temp Pulse Resp BP Pulse Ox 98.8 F 88 18 117/57 L 95 04/29/20 17:43 04/29/20 17:43 04/29/20 17:43 04/29/20 17:43 04/29/20 17:43 Intake & Output 04/28/20 04/29/20 04/30/20 06:59 06:59 06:59 Intake Total 4249 3807 1822 Output Total 4000 5600 1999 Balance 720 -6538 -178 Weight 72.5 kg 72.5 kg General appearance: PRESENT: no acute distress Eye exam: PRESENT: PERRLA Respiratory exam: PRESENT: clear to auscultation carolyn Cardiovascular exam: PRESENT: +S1, +S2 Results Laboratory Results: 04/29/20 05:40 04/29/20 05:40 04/29/20 04/29/20 05:40 05:40 WBC 5.5 RBC 1.17 L Hgb 5.6 L Hct 15.1 L MCV 129 H MCH 47.6 H MCHC 36.9 H RDW 18.7 H Plt Count 190 Seg Neutrophils % Not Reportable Sodium 140.1 Potassium 4.7 Chloride 106 Carbon Dioxide 27 Anion Gap 7 BUN 9 Creatinine 0.72 Est GFR ( Amer) > 60 Glucose 93 Calcium 8.8 Total Bilirubin 4.3 H AST 78 H Alkaline Phosphatase 153 H Total Protein 6.6 Albumin 3.7 04/20/20 20:59 Troponin I < 0.012 Impressions: Chest X-Ray 04/20/20 18:25 IMPRESSION: NO SIGNIFICANT RADIOGRAPHIC FINDING IN THE CHEST. Venous Doppler Study 04/29/20 00:00 IMPRESSION: NO EVIDENCE DVT OR SVT IN THE LEFT ARM. Assessment & Plan - Diagnosis (1) Sickle cell anemia with crisis Is this a current diagnosis for this admission?: Yes Plan: continue treatment - Time Time Spent with patient: Less than 15 minutes Level of Care: MEDICAL Medications reviewed and adjusted accordingly: Yes Anticipated discharge: Home Anticipated DC Timeframe: Other - Inpatient Certification Based on my medical assessment, after consideration of the patient's comorbidities, presenting symptoms, or acuity I expect that the services needed warrant INPATIENT care.: No I certify that my determination is in accordance with my understanding of Medicare's requirements for reasonable and necessary INPATIENT services [42 CFR 412.3e].: No
[2020-04-30 00:29] LABS: APPEARANCE,URINE CLEAR; BILIRUBIN,URINE NEGATIVE (NEGATIVE); COLOR,URINE YELLOW; GLUCOSE, URINE NEGATIVE (NEGATIVE); KETONES,URINE NEGATIVE (NEGATIVE); PROTEIN,URINE NEGATIVE (NEGATIVE); URINE SPECIFIC GRAVITY 1.008
[2020-04-30] MEDS: DIPHENHYDRAMINE HCL 50 MG/ML VIAL IV PRN ×4 (01:48→21:50)
[2020-04-30] MEDS: HYDROMORPHONE HCL INJ/PF 2 MG/ML AMPULE IV PRN ×11 (01:49→23:53)
[2020-04-30] MEDS: NORMAL SALINE 1000 ML 1,000 ML IV PRN ×3 (04:10→15:30)
[2020-04-30] MEDS: PROMETHAZINE HCL INJ 25 MG/1 ML VIAL IV PRN ×3 (06:22→19:48)
--- NOTE | 2020-04-30 08:11 | PDOC PROGRESS REPORT ---
Subjective Date:: 04/30/20 Subjective:: Patient has no new complaints today. Still asks why her arm is swollen. 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 This arm has been X-rayed and US several times. No other pathologic problems. She again states that she has not been up to walk. The SCDs and TEDs that were ordered have not been on during any of my visits. Reason For Visit: SICKLE CELL CRISIS Physical Exam Vital Signs: Temp Pulse Resp BP Pulse Ox 98.9 F 92 18 106/67 93 04/29/20 23:17 04/29/20 23:17 04/29/20 23:17 04/29/20 23:17 04/29/20 23:17 Intake & Output 04/29/20 04/30/20 05/01/20 06:59 06:59 06:59 Intake Total 3807 3845 Output Total 5600 2000 Balance -1793 1845 Weight 72.5 kg 72.5 kg General appearance: PRESENT: no acute distress Head exam: PRESENT: normocephalic Eye exam: PRESENT: EOMI Respiratory exam: PRESENT: unlabored Extremities exam: ABSENT: pedal edema Neurological exam: PRESENT: alert, awake Psychiatric exam: PRESENT: appropriate affect Skin exam: PRESENT: normal color Results Laboratory Results: 04/29/20 05:40 04/29/20 05:40 04/30/20 00:00 Urine Color YELLOW Urine Appearance CLEAR Urine pH 7.0 Ur Specific [place] 1.008 Urine Protein NEGATIVE Urine Glucose (UA) NEGATIVE Urine Ketones NEGATIVE Urine Blood NEGATIVE 04/20/20 20:59 Troponin I < 0.012 Impressions: Chest X-Ray 04/20/20 18:25 IMPRESSION: NO SIGNIFICANT RADIOGRAPHIC FINDING IN THE CHEST. Venous Doppler Study 04/29/20 00:00 IMPRESSION: NO EVIDENCE DVT OR SVT IN THE LEFT ARM. Assessment & Plan - Diagnosis (1) Sickle cell pain crisis Is this a current diagnosis for this admission?: Yes Plan: No changes today. Lovenox adde4d for DVT prophylaxis, as she continues to refuse to walk and no mechanical prophylaxis has been used, despite being ordered. - Time Time Spent with patient: Less than 15 minutes
[2020-04-30] MEDS: GABAPENTIN 300 MG CAPSULE PO SCH ×2 (09:16→21:53)
[2020-04-30] MEDS: HYDROXYUREA 500 MG CAPSULE PO SCH ×2 (09:16→21:52)
[2020-04-30] MEDS: CHOLECALCIFEROL (D3) 1,000 UNIT (25 MCG) TABLET PO SCH (09:16)
[2020-04-30] MEDS: OXYCODONE HCL SR 10 MG TABLET PO SCH ×2 (09:16→21:53)
[2020-04-30] MEDS: ENOXAPARIN SODIUM INJ 40 MG/0.4 ML DISP.SYRIN SUBCUT SCH (09:20)
--- NOTE | 2020-04-30 17:10 | PDOC PROGRESS REPORT ---
Subjective Date:: 04/30/20 Subjective:: Patient was seen by the bedside, there is no new complaints Reason For Visit: SICKLE CELL CRISIS Physical Exam Vital Signs: Temp Pulse Resp BP Pulse Ox 99.1 F 88 18 100/67 96 04/30/20 15:49 04/30/20 15:49 04/30/20 15:49 04/30/20 15:49 04/30/20 15:49 Intake & Output 04/29/20 04/30/20 05/01/20 06:59 06:59 06:59 Intake Total 3807 3845 2130 Output Total 5600 1999 Balance -1793 1845 2130 Weight 72.5 kg 72.5 kg General appearance: PRESENT: no acute distress Eye exam: PRESENT: PERRLA Respiratory exam: PRESENT: clear to auscultation carolyn Cardiovascular exam: PRESENT: +S1, +S2 GI/Abdominal exam: PRESENT: soft Neurological exam: PRESENT: alert Results Laboratory Results: 04/29/20 05:40 04/29/20 05:40 04/30/20 00:00 Urine Color YELLOW Urine Appearance CLEAR Urine pH 7.0 Ur Specific [place] 1.008 Urine Protein NEGATIVE Urine Glucose (UA) NEGATIVE Urine Ketones NEGATIVE Urine Blood NEGATIVE 04/20/20 20:59 Troponin I < 0.012 Impressions: Chest X-Ray 04/20/20 18:25 IMPRESSION: NO SIGNIFICANT RADIOGRAPHIC FINDING IN THE CHEST. Venous Doppler Study 04/29/20 00:00 IMPRESSION: NO EVIDENCE DVT OR SVT IN THE LEFT ARM. Assessment & Plan - Diagnosis (1) Sickle cell anemia with crisis Is this a current diagnosis for this admission?: Yes Plan: continue treatment - Time Time Spent with patient: 15-24 minutes Level of Care: MEDICAL Medications reviewed and adjusted accordingly: Yes Anticipated discharge: Home Anticipated DC Timeframe: within 72 hours
[2020-04-30] MEDS: NORMAL SALINE 1000 ML 1,000 ML with POTASSIUM CHLORIDE 20 MEQ, MAGNESIUM SULFATE 8 MEQ,... IV SCH ×5 (17:19)
[2020-05-01] MEDS: HYDROMORPHONE HCL INJ/PF 2 MG/ML AMPULE IV PRN ×9 (02:16→23:17)
[2020-05-01] MEDS: PROMETHAZINE HCL INJ 25 MG/1 ML VIAL IV PRN ×4 (02:17→23:17)
[2020-05-01] MEDS: DIPHENHYDRAMINE HCL 50 MG/ML VIAL IV PRN ×3 (05:31→21:15)
--- NOTE | 2020-05-01 07:37 | PDOC PROGRESS REPORT ---
Subjective Date:: 05/01/20 Subjective:: Patient is sitting on the side of the bed today. Nurses report that she is now getting up to the bathroom, but still not walking outside of room. Patient tells me that she sat up in chair and walked yesterday. Her pain has not improved. She did receive her EPO last week, but not yet this week. Reason For Visit: SICKLE CELL CRISIS Physical Exam Vital Signs: Temp Pulse Resp BP Pulse Ox 98.3 F 81 19 109/60 94 05/01/20 04:54 05/01/20 04:54 05/01/20 04:54 05/01/20 04:54 05/01/20 04:54 Intake & Output 04/30/20 05/01/20 05/02/20 06:59 06:59 06:59 Intake Total 3845 3305 Output Total 2000 900 Balance 1845 2405 Weight 72.5 kg 54.2 kg General appearance: PRESENT: no acute distress Head exam: PRESENT: normocephalic Eye exam: PRESENT: EOMI Respiratory exam: PRESENT: unlabored Extremities exam: ABSENT: pedal edema Neurological exam: PRESENT: alert, awake Psychiatric exam: PRESENT: appropriate affect Skin exam: PRESENT: normal color Results Laboratory Results: 04/29/20 05:40 04/29/20 05:40 04/20/20 20:59 Troponin I < 0.012 Impressions: Chest X-Ray 04/20/20 18:25 IMPRESSION: NO SIGNIFICANT RADIOGRAPHIC FINDING IN THE CHEST. Venous Doppler Study 04/29/20 00:00 IMPRESSION: NO EVIDENCE DVT OR SVT IN THE LEFT ARM. Assessment & Plan - Diagnosis (1) Sickle cell pain crisis Is this a current diagnosis for this admission?: Yes Plan: I will check labs again tomorrow. If HGB still very low, consider another EPO i njection. However, I am concerned that these may exacerbate her pain. No clinical indication for blood transfusion. Continue fluids, O2 and pain meds. - Time Time Spent with patient: Less than 15 minutes
[2020-05-01] MEDS: NORMAL SALINE 1000 ML 1,000 ML IV PRN (08:00)
[2020-05-01] MEDS: GABAPENTIN 300 MG CAPSULE PO SCH ×2 (10:10→21:17)
[2020-05-01] MEDS: ENOXAPARIN SODIUM INJ 40 MG/0.4 ML DISP.SYRIN SUBCUT SCH (10:15)
[2020-05-01] MEDS: HYDROXYUREA 500 MG CAPSULE PO SCH ×2 (10:17→21:17)
[2020-05-01] MEDS: OXYCODONE HCL SR 10 MG TABLET PO SCH ×2 (10:59→21:17)
[2020-05-01] MEDS: CHOLECALCIFEROL (D3) 1,000 UNIT (25 MCG) TABLET PO SCH (14:26)
[2020-05-01] MEDS: NORMAL SALINE 1000 ML 1,000 ML with POTASSIUM CHLORIDE 20 MEQ, MAGNESIUM SULFATE 8 MEQ,... IV SCH ×5 (18:02)
--- NOTE | 2020-05-01 20:32 | PDOC PROGRESS REPORT ---
Subjective Date:: 05/01/20 Subjective:: Patient was seen by the bedside, there is no new complaints Reason For Visit: SICKLE CELL CRISIS Physical Exam Vital Signs: Temp Pulse Resp BP Pulse Ox 100.4 F 98 19 105/50 L 95 05/01/20 15:44 05/01/20 15:44 05/01/20 15:44 05/01/20 15:44 05/01/20 15:44 Intake & Output 04/30/20 05/01/20 05/02/20 06:59 06:59 06:59 Intake Total 3845 3305 1731 Output Total 1999 900 1200 Balance 1845 2405 531 Weight 72.5 kg 54.2 kg General appearance: PRESENT: no acute distress Eye exam: PRESENT: PERRLA Respiratory exam: PRESENT: clear to auscultation carolyn Cardiovascular exam: PRESENT: +S1, +S2 GI/Abdominal exam: PRESENT: soft Neurological exam: PRESENT: alert Results Laboratory Results: 04/29/20 05:40 04/29/20 05:40 04/20/20 20:59 Troponin I < 0.012 Impressions: Chest X-Ray 04/20/20 18:25 IMPRESSION: NO SIGNIFICANT RADIOGRAPHIC FINDING IN THE CHEST. Venous Doppler Study 04/29/20 00:00 IMPRESSION: NO EVIDENCE DVT OR SVT IN THE LEFT ARM. Assessment & Plan - Diagnosis (1) Sickle cell anemia with crisis Is this a current diagnosis for this admission?: Yes Plan: Continue present plan - Time Time Spent with patient: 15-24 minutes Level of Care: MEDICAL Medications reviewed and adjusted accordingly: Yes Anticipated discharge: Home Anticipated DC Timeframe: within 72 hours
[2020-05-02] MEDS: HYDROMORPHONE HCL INJ/PF 2 MG/ML AMPULE IV PRN ×9 (02:15→22:25)
[2020-05-02] MEDS: DIPHENHYDRAMINE HCL 50 MG/ML VIAL IV PRN ×3 (04:49→17:49)
[2020-05-02] MEDS: PROMETHAZINE HCL INJ 25 MG/1 ML VIAL IV PRN ×3 (05:17→20:10)
[2020-05-02 05:54] LABS: HEMATOCRIT 15.1 % (36.0-47.0); MEAN CORPUSCULAR VOLUME 131 fl (80-97)
[2020-05-02 06:11] LABS: ALBUMIN 3.7 g/dL (3.5-5.0); ALKALINE PHOSPHATASE 129 U/L (38-126); ANION GAP 7 (5-19); ASPARTATE AMINO TRANSFERASE 62 U/L (14-36); BILIRUBIN,DIRECT 0.4 mg/dL (0.0-0.4); BILIRUBIN,TOTAL 4.2 mg/dL (0.2-1.3); BLOOD UREA NITROGEN 9 mg/dL (7-20); CALCIUM 8.7 mg/dL (8.4-10.2); CARBON DIOXIDE 27 mmol/L (22-30); CHLORIDE 104 mmol/L (98-107); GLUCOSE 100 mg/dL (75-110); POTASSIUM 4.6 mmol/L (3.6-5.0); TOTAL PROTEIN 6.6 g/dL (6.3-8.2)
[2020-05-02 06:43] LABS: MEAN CORPUSCULAR HEMOGLOBIN 45.9 pg (27.0-33.4); MEAN CORPUSCULAR HGB CONC 35.1 g/dL (32.0-36.0); PLATELET COUNT 162 10^3/uL (150-450); RED BLOOD COUNT 1.16 10^6/uL (3.72-5.28); RED CELL DISTRIBUTION WIDTH 19.5 % (11.5-14.0); WHITE BLOOD COUNT 4.8 10^3/uL (4.0-10.5)
[2020-05-02 06:45] LABS: ABSOLUTE LYMPHOCYTES# (MANUAL) 2.7 10^3/uL (0.5-4.7); ABSOLUTE MONOCYTES # (MANUAL) 0.4 10^3/uL (0.1-1.4); ANISOCYTOSIS 2+; BASOPHILS % (MANUAL) 1 % (0-2); EOSINOPHILS % (MANUAL) 3 % (0-6); HOWELL-JOLLY BODIES PRESENT; LYMPHOCYTES % (MANUAL) 56 % (13-45); MONOCYTES % (MANUAL) 9 % (3-13); NUCLEATED RED BLOOD CELLS 42 /100 WBC (0); OVALOCYTES SLIGHT; PLATELET COMMENT ADEQUATE; POIKILOCYTOSIS 1+; POLYCHROMASIA SLIGHT; SEGMENTED NEUTROPHILS % (MAN) 31 % (42-78); SICKLE RED CELLS SLIGHT; TARGET CELLS 1+; TOTAL CELLS COUNTED 100; TOXIC VACUOLATION PRESENT
[2020-05-02 06:46] LABS: HEMOGLOBIN 5.3 g/dL (12.0-15.5)
--- NOTE | 2020-05-02 08:37 | PDOC PROGRESS REPORT ---
Subjective Date:: 05/02/20 Subjective:: Patient states that she is feeling a bit better today. We talked about her daug hter and grand son. Her pain remains. She is not sure if the EPO injections make her pain worse or not, but is willing to try another one today. She was able to walk in the [place] yesterday with help. ROS: No constipation. No dysuria. No further hematuria. No chest pain. Reason For Visit: SICKLE CELL CRISIS Physical Exam Vital Signs: Temp Pulse Resp BP Pulse Ox 98.8 F 81 20 98/65 L 98 05/02/20 07:56 05/02/20 07:56 05/02/20 07:56 05/02/20 07:56 05/02/20 07:56 Intake & Output 05/01/20 05/02/20 05/03/20 06:59 06:59 06:59 Intake Total 3305 1881 Output Total 900 2500 Balance 2405 -619 Weight 54.2 kg 54.3 kg General appearance: PRESENT: no acute distress, severe distress Head exam: PRESENT: normocephalic Eye exam: PRESENT: EOMI Respiratory exam: PRESENT: unlabored Extremities exam: ABSENT: pedal edema Musculoskeletal exam: PRESENT: normal inspection Neurological exam: PRESENT: alert, awake Psychiatric exam: PRESENT: appropriate affect Skin exam: PRESENT: normal color Results Laboratory Results: 05/02/20 05:10 05/02/20 05:10 05/02/20 05/02/20 05:10 05:10 WBC 4.8 RBC 1.16 L Hgb 5.3 L Hct 15.1 L MCV 131 H MCH 45.9 H MCHC 35.1 RDW 19.5 H Plt Count 162 Seg Neutrophils % Not Reportable Sodium 138.4 Potassium 4.6 Chloride 104 Carbon Dioxide 27 Anion Gap 7 BUN 9 Creatinine 0.56 Est GFR ( Amer) > 60 Glucose 100 Calcium 8.7 Total Bilirubin 4.2 H AST 62 H Alkaline Phosphatase 129 H Total Protein 6.6 Albumin 3.7 04/20/20 20:59 Troponin I < 0.012 Impressions: Chest X-Ray 04/20/20 18:25 IMPRESSION: NO SIGNIFICANT RADIOGRAPHIC FINDING IN THE CHEST. Venous Doppler Study 04/29/20 00:00 IMPRESSION: NO EVIDENCE DVT OR SVT IN THE LEFT ARM. Assessment & Plan - Diagnosis (1) Sickle cell pain crisis Is this a current diagnosis for this admission?: Yes Plan: I reviewed lab results. Her HGB remains stable. Her LDH is higher today. Her Bili remains elevated. There is still evidence of considerable hemolysis. I will order EPO again today. Continue pain meds the same through the weekend. We discussed possible discharge on Tuesday. She will continue to ambulate as much as possible. - Time Time Spent with patient: 15-24 minutes
[2020-05-02] MEDS ORDERED: EPOETIN ALFA-EPBX 40,000 UNIT/ML VIAL (RENAL) SUBCUT SCH (08:45)
[2020-05-02] MEDS: OXYCODONE HCL SR 10 MG TABLET PO SCH ×2 (10:39→23:08)
[2020-05-02] MEDS: HYDROXYUREA 500 MG CAPSULE PO SCH ×2 (10:40→22:01)
[2020-05-02] MEDS: ENOXAPARIN SODIUM INJ 40 MG/0.4 ML DISP.SYRIN SUBCUT SCH (10:40)
[2020-05-02] MEDS: NORMAL SALINE 1000 ML 1,000 ML IV PRN (10:40)
[2020-05-02] MEDS: GABAPENTIN 300 MG CAPSULE PO SCH ×2 (10:40→22:00)
[2020-05-02] MEDS ORDERED: DISPOSABLE SUBCUT ONE (11:00)
[2020-05-02] MEDS ORDERED: [UNRECOGNIZED DRUG - OTHER] SUBCUT ONE (11:00)
[2020-05-02] MEDS ORDERED: EPOETIN ALFA EPBX SUBCUT ONE (11:00)
[2020-05-02] MEDS: CHOLECALCIFEROL (D3) 1,000 UNIT (25 MCG) TABLET PO SCH (11:10)
[2020-05-02] MEDS: NORMAL SALINE 1000 ML 1,000 ML with POTASSIUM CHLORIDE 20 MEQ, MAGNESIUM SULFATE 8 MEQ,... IV SCH ×5 (18:09)
--- NOTE | 2020-05-02 21:16 | PDOC PROGRESS REPORT ---
Subjective Date:: 05/02/20 Subjective:: Patient seen by the bedside, she seems to be improving Reason For Visit: SICKLE CELL CRISIS Physical Exam Vital Signs: Temp Pulse Resp BP Pulse Ox 99.3 F 88 16 95/50 L 92 05/02/20 18:57 05/02/20 18:57 05/02/20 18:57 05/02/20 18:57 05/02/20 18:57 Intake & Output 05/01/20 05/02/20 05/03/20 06:59 06:59 06:59 Intake Total 3305 1881 1263 Output Total 900 2500 Balance 2405 -619 1263 Weight 54.2 kg 54.3 kg General appearance: PRESENT: no acute distress Eye exam: PRESENT: PERRLA Respiratory exam: PRESENT: clear to auscultation carolyn Cardiovascular exam: PRESENT: +S1, +S2 GI/Abdominal exam: PRESENT: soft Neurological exam: PRESENT: alert Results Laboratory Results: 05/02/20 05:10 05/02/20 05:10 05/02/20 05/02/20 05:10 05:10 WBC 4.8 RBC 1.16 L Hgb 5.3 L Hct 15.1 L MCV 131 H MCH 45.9 H MCHC 35.1 RDW 19.5 H Plt Count 162 Seg Neutrophils % Not Reportable Sodium 138.4 Potassium 4.6 Chloride 104 Carbon Dioxide 27 Anion Gap 7 BUN 9 Creatinine 0.56 Est GFR ( Amer) > 60 Glucose 100 Calcium 8.7 Total Bilirubin 4.2 H AST 62 H Alkaline Phosphatase 129 H Total Protein 6.6 Albumin 3.7 04/20/20 20:59 Troponin I < 0.012 Impressions: Chest X-Ray 04/20/20 18:25 IMPRESSION: NO SIGNIFICANT RADIOGRAPHIC FINDING IN THE CHEST. Venous Doppler Study 04/29/20 00:00 IMPRESSION: NO EVIDENCE DVT OR SVT IN THE LEFT ARM. Assessment & Plan - Diagnosis (1) Sickle cell anemia with crisis Is this a current diagnosis for this admission?: Yes Plan: Continue present plan - Time Time Spent with patient: 15-24 minutes Level of Care: MEDICAL Medications reviewed and adjusted accordingly: Yes Anticipated discharge: Home Anticipated DC Timeframe: within 72 hours
[2020-05-03] MEDS: HYDROMORPHONE HCL INJ/PF 2 MG/ML AMPULE IV PRN ×9 (00:44→21:43)
[2020-05-03] MEDS: DIPHENHYDRAMINE HCL 50 MG/ML VIAL IV PRN ×4 (00:45→19:16)
[2020-05-03] MEDS: PROMETHAZINE HCL INJ 25 MG/1 ML VIAL IV PRN ×3 (02:54→16:47)
[2020-05-03] MEDS: GABAPENTIN 300 MG CAPSULE PO SCH ×2 (11:57→21:43)
[2020-05-03] MEDS: CHOLECALCIFEROL (D3) 1,000 UNIT (25 MCG) TABLET PO SCH (11:58)
[2020-05-03] MEDS: OXYCODONE HCL SR 10 MG TABLET PO SCH ×2 (11:58→21:43)
[2020-05-03] MEDS: HYDROXYUREA 500 MG CAPSULE PO SCH ×2 (11:59→21:43)
[2020-05-03] MEDS: ENOXAPARIN SODIUM INJ 40 MG/0.4 ML DISP.SYRIN SUBCUT SCH (11:59)
[2020-05-03] MEDS: NORMAL SALINE 1000 ML 1,000 ML IV PRN (12:25)
--- NOTE | 2020-05-03 13:39 | PDOC PROGRESS REPORT ---
Subjective Date:: 05/03/20 Subjective:: Patient was seen by the bedside, there is no new complaints Reason For Visit: SICKLE CELL CRISIS Physical Exam Vital Signs: Temp Pulse Resp BP Pulse Ox 99.1 F 89 18 99/52 L 95 05/03/20 12:00 05/03/20 12:00 05/03/20 12:00 05/03/20 12:00 05/03/20 12:00 Intake & Output 05/02/20 05/03/20 05/04/20 06:59 06:59 06:59 Intake Total 1881 2643 2263 Output Total 2500 1500 800 Balance -619 1143 1463 Weight 54.3 kg 53.2 kg General appearance: PRESENT: no acute distress Eye exam: PRESENT: PERRLA Respiratory exam: PRESENT: clear to auscultation carolyn Cardiovascular exam: PRESENT: +S1, +S2 Results Laboratory Results: 05/02/20 05:10 05/02/20 05:10 04/20/20 20:59 Troponin I < 0.012 Impressions: Chest X-Ray 04/20/20 18:25 IMPRESSION: NO SIGNIFICANT RADIOGRAPHIC FINDING IN THE CHEST. Venous Doppler Study 04/29/20 00:00 IMPRESSION: NO EVIDENCE DVT OR SVT IN THE LEFT ARM. Assessment & Plan - Diagnosis (1) Sickle cell anemia with crisis Is this a current diagnosis for this admission?: Yes Plan: Continue present plan - Time Time Spent with patient: Less than 15 minutes Level of Care: MEDICAL Medications reviewed and adjusted accordingly: Yes Anticipated DC Timeframe: within 72 hours
--- NOTE | 2020-05-03 14:34 | PDOC PROGRESS REPORT ---
Subjective Date:: 05/03/20 Subjective:: No acute events overnight, pain is stable Reason For Visit: SICKLE CELL CRISIS Physical Exam Vital Signs: Temp Pulse Resp BP Pulse Ox 99.1 F 89 18 99/52 L 95 05/03/20 12:00 05/03/20 12:00 05/03/20 12:00 05/03/20 12:00 05/03/20 12:00 Intake & Output 05/02/20 05/03/20 05/04/20 06:59 06:59 06:59 Intake Total 1881 2643 2263 Output Total 2500 1500 800 Balance -619 1143 1463 Weight 54.3 kg 53.2 kg General appearance: PRESENT: no acute distress, well-developed, well-nourished Head exam: PRESENT: atraumatic, normocephalic Eye exam: PRESENT: conjunctiva pink, EOMI, PERRLA. ABSENT: scleral icterus Ear exam: PRESENT: normal external ear exam Mouth exam: PRESENT: moist, tongue midline Neck exam: ABSENT: carotid bruit, JVD, lymphadenopathy, thyromegaly Respiratory exam: PRESENT: clear to auscultation carolyn. ABSENT: rales, rhonchi, wheezes Cardiovascular exam: PRESENT: RRR. ABSENT: diastolic murmur, rubs, systolic murmur Pulses: PRESENT: normal dorsalis pedis pul Vascular exam: PRESENT: normal capillary refill GI/Abdominal exam: PRESENT: normal bowel sounds, soft. ABSENT: distended, guarding, mass, organolmegaly, rebound, tenderness Rectal exam: PRESENT: deferred Extremities exam: PRESENT: full ROM. ABSENT: calf tenderness, clubbing, pedal edema Neurological exam: PRESENT: alert, awake, oriented to person, oriented to place, oriented to time, oriented to situation, CN II-XII grossly intact. ABSENT: motor sensory deficit Psychiatric exam: PRESENT: appropriate affect, normal mood. ABSENT: homicidal ideation, suicidal ideation Skin exam: PRESENT: dry, intact, warm. ABSENT: cyanosis, rash Results Laboratory Results: 05/02/20 05:10 05/02/20 05:10 04/20/20 20:59 Troponin I < 0.012 Impressions: Chest X-Ray 04/20/20 18:25 IMPRESSION: NO SIGNIFICANT RADIOGRAPHIC FINDING IN THE CHEST. Venous Doppler Study 11/10/20 00:00 IMPRESSION: NO EVIDENCE DVT OR SVT IN THE LEFT ARM. Assessment & Plan - Diagnosis (1) Sickle cell pain crisis Is this a current diagnosis for this admission?: Yes Plan: Continue with current supportive measures. 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
[2020-05-03] MEDS: NORMAL SALINE 1000 ML 1,000 ML with POTASSIUM CHLORIDE 20 MEQ, MAGNESIUM SULFATE 8 MEQ,... IV SCH ×5 (18:59)
[2020-05-04] MEDS: HYDROMORPHONE HCL INJ/PF 2 MG/ML AMPULE IV PRN ×10 (03:04→23:13)
[2020-05-04] MEDS: DIPHENHYDRAMINE HCL 50 MG/ML VIAL IV PRN ×3 (03:05→20:49)
[2020-05-04] MEDS: PROMETHAZINE HCL INJ 25 MG/1 ML VIAL IV PRN ×4 (06:00→23:12)
[2020-05-04] MEDS: OXYCODONE HCL SR 10 MG TABLET PO SCH ×2 (09:26→23:14)
[2020-05-04] MEDS: HYDROXYUREA 500 MG CAPSULE PO SCH ×2 (09:26→23:14)
[2020-05-04] MEDS: ENOXAPARIN SODIUM INJ 40 MG/0.4 ML DISP.SYRIN SUBCUT SCH (09:27)
[2020-05-04] MEDS: CHOLECALCIFEROL (D3) 1,000 UNIT (25 MCG) TABLET PO SCH (09:27)
[2020-05-04] MEDS: GABAPENTIN 300 MG CAPSULE PO SCH ×2 (09:27→23:14)
--- NOTE | 2020-05-04 15:05 | PDOC PROGRESS REPORT ---
Subjective Date:: 05/04/20 Subjective:: Patient with sickle cell disease and pain Reason For Visit: SICKLE CELL CRISIS Physical Exam Vital Signs: Temp Pulse Resp BP Pulse Ox 98.6 F 86 18 102/58 L 100 05/04/20 11:10 05/04/20 11:10 05/04/20 11:10 05/04/20 11:10 05/04/20 11:10 Intake & Output 05/03/20 05/04/20 05/05/20 06:59 06:59 06:59 Intake Total 2643 2723 Output Total 1500 1800 Balance 1143 923 Weight 53.2 kg 67.2 kg General appearance: PRESENT: no acute distress Eye exam: PRESENT: PERRLA Respiratory exam: PRESENT: clear to auscultation carolyn Cardiovascular exam: PRESENT: +S1, +S2 GI/Abdominal exam: PRESENT: soft Neurological exam: PRESENT: alert, CN II-XII grossly intact Results Laboratory Results: 05/02/20 05:10 05/02/20 05:10 04/20/20 20:59 Troponin I < 0.012 Impressions: Chest X-Ray 04/20/20 18:25 IMPRESSION: NO SIGNIFICANT RADIOGRAPHIC FINDING IN THE CHEST. Venous Doppler Study 04/29/20 00:00 IMPRESSION: NO EVIDENCE DVT OR SVT IN THE LEFT ARM. Assessment & Plan - Diagnosis (1) Sickle cell anemia with crisis Is this a current diagnosis for this admission?: Yes Plan: Continue present plan - Time Time Spent with patient: Less than 15 minutes Level of Care: MEDICAL Anticipated discharge: Home Anticipated DC Timeframe: within 24 hours
[2020-05-04] MEDS: NORMAL SALINE 1000 ML 1,000 ML IV PRN (18:13)
[2020-05-04] MEDS: NORMAL SALINE 1000 ML 1,000 ML with POTASSIUM CHLORIDE 20 MEQ, MAGNESIUM SULFATE 8 MEQ,... IV SCH ×5 (18:22)
[2020-05-05] MEDS: HYDROMORPHONE HCL INJ/PF 2 MG/ML AMPULE IV PRN ×11 (01:26→23:25)
[2020-05-05] MEDS: DIPHENHYDRAMINE HCL 50 MG/ML VIAL IV PRN ×4 (03:46→23:23)
[2020-05-05] MEDS: PROMETHAZINE HCL INJ 25 MG/1 ML VIAL IV PRN ×3 (06:21→19:24)
[2020-05-05 07:04] LABS: HEMATOCRIT 17.2 % (36.0-47.0); MEAN CORPUSCULAR HEMOGLOBIN 47.5 pg (27.0-33.4); MEAN CORPUSCULAR HGB CONC 35.2 g/dL (32.0-36.0); PLATELET COUNT 205 10^3/uL (150-450); RED BLOOD COUNT 1.28 10^6/uL (3.72-5.28); RED CELL DISTRIBUTION WIDTH 20.1 % (11.5-14.0)
[2020-05-05 07:24] LABS: ALBUMIN 3.7 g/dL (3.5-5.0); ALKALINE PHOSPHATASE 126 U/L (38-126); ANION GAP 7 (5-19); ASPARTATE AMINO TRANSFERASE 54 U/L (14-36); BILIRUBIN,DIRECT 0.5 mg/dL (0.0-0.4); BILIRUBIN,TOTAL 3.4 mg/dL (0.2-1.3); BLOOD UREA NITROGEN 5 mg/dL (7-20); CALCIUM 8.6 mg/dL (8.4-10.2); CARBON DIOXIDE 27 mmol/L (22-30); CHLORIDE 105 mmol/L (98-107); GLUCOSE 111 mg/dL (75-110); POTASSIUM 4.1 mmol/L (3.6-5.0); TOTAL PROTEIN 6.6 g/dL (6.3-8.2)
--- NOTE | 2020-05-05 08:33 | PDOC PROGRESS REPORT ---
Subjective Date:: 05/05/20 Subjective:: Patient states that she had a good weekend. Pain is starting to improve. She w as able to get up and walk in [place] yesterday. Nurses report no concerns. She is hoping to go home tomorrow. She still complains of chest pain, but no dyspnea. No constipation, but some blood on tissue when wiping. Reason For Visit: SICKLE CELL CRISIS Physical Exam Vital Signs: Temp Pulse Resp BP Pulse Ox 97.8 F 81 16 91/53 L 100 05/05/20 08:00 05/05/20 08:00 05/05/20 08:00 05/05/20 08:00 05/05/20 08:00 Intake & Output 05/04/20 05/05/20 05/06/20 06:59 06:59 06:59 Intake Total 2723 2123 Output Total 1800 1450 Balance 923 673 Weight 67.2 kg 62.1 kg General appearance: PRESENT: no acute distress Head exam: PRESENT: normocephalic Eye exam: PRESENT: EOMI Respiratory exam: PRESENT: unlabored Extremities exam: ABSENT: pedal edema Neurological exam: PRESENT: alert, awake Psychiatric exam: PRESENT: appropriate affect Skin exam: PRESENT: normal color Results Laboratory Results: 05/05/20 06:20 05/05/20 06:20 Sodium 138.8 Potassium 4.1 Chloride 105 Carbon Dioxide 27 Anion Gap 7 BUN 5 L Creatinine 0.55 Est GFR ( Amer) > 60 Glucose 111 H Calcium 8.6 Total Bilirubin 3.4 H AST 54 H Alkaline Phosphatase 126 Total Protein 6.6 Albumin 3.7 04/20/20 20:59 Troponin I < 0.012 Impressions: Chest X-Ray 04/20/20 18:25 IMPRESSION: NO SIGNIFICANT RADIOGRAPHIC FINDING IN THE CHEST. Venous Doppler Study 04/29/20 00:00 IMPRESSION: NO EVIDENCE DVT OR SVT IN THE LEFT ARM. Assessment & Plan - Diagnosis (1) Sickle cell pain crisis Is this a current diagnosis for this admission?: Yes Plan: I will decrease dilaudid today and plan on discharge tomorrow. - Time Time Spent with patient: 15-24 minutes
[2020-05-05 08:43] LABS: MEAN CORPUSCULAR VOLUME 135 fl (80-97)
[2020-05-05 09:09] LABS: HEMOGLOBIN 6.1 g/dL (12.0-15.5)
[2020-05-05 09:12] LABS: ABSOLUTE LYMPHOCYTES# (MANUAL) 2.9 10^3/uL (0.5-4.7); ABSOLUTE MONOCYTES # (MANUAL) 0.2 10^3/uL (0.1-1.4); BASOPHILS % (MANUAL) 1 % (0-2); EOSINOPHILS % (MANUAL) 7 % (0-6); LYMPHOCYTES % (MANUAL) 54 % (13-45); MONOCYTES % (MANUAL) 3 % (3-13); NUCLEATED RED BLOOD CELLS 102 /100 WBC (0); SEGMENTED NEUTROPHILS % (MAN) 35 % (42-78); TOTAL CELLS COUNTED 100
[2020-05-05 09:15] LABS: ANISOCYTOSIS 2+; POIKILOCYTOSIS 2+; POLYCHROMASIA 2+
[2020-05-05 09:16] LABS: HOWELL-JOLLY BODIES PRESENT; PAPPENHEIMER BODIES PRESENT; SCHISTOCYTES SLIGHT; SICKLE RED CELLS 1+; TARGET CELLS 1+; TEAR DROP CELLS SLIGHT
[2020-05-05 09:17] LABS: PLATELET COMMENT ADEQUATE; WHITE BLOOD COUNT 3.2 10^3/uL (4.0-10.5)
[2020-05-05] MEDS ORDERED: OXYCODONE HCL SR 10 MG TABLET PO ONE ×2 (10:17→10:33)
[2020-05-05] MEDS: ENOXAPARIN SODIUM INJ 40 MG/0.4 ML DISP.SYRIN SUBCUT SCH (10:21)
[2020-05-05] MEDS: GABAPENTIN 300 MG CAPSULE PO SCH ×2 (10:22→21:22)
[2020-05-05] MEDS: CHOLECALCIFEROL (D3) 1,000 UNIT (25 MCG) TABLET PO SCH (10:23)
[2020-05-05] MEDS: HYDROXYUREA 500 MG CAPSULE PO SCH ×2 (10:23→21:22)
[2020-05-05] MEDS: NORMAL SALINE 1000 ML 1,000 ML IV PRN (10:23)
[2020-05-05] MEDS: OXYCODONE HCL SR 10 MG TABLET PO SCH ×2 (11:00→21:22)
[2020-05-05] MEDS: NORMAL SALINE 1000 ML 1,000 ML with POTASSIUM CHLORIDE 20 MEQ, MAGNESIUM SULFATE 8 MEQ,... IV SCH ×5 (17:16)
[2020-05-05] MEDS ORDERED: ACETAMINOPHEN 1,000 MG/100 ML RTUPB IV ONE (20:42)
--- NOTE | 2020-05-05 21:29 | PDOC PROGRESS REPORT ---
Subjective Date:: 05/05/20 Subjective:: Patient with sickle cell disease and pain Reason For Visit: SICKLE CELL CRISIS Physical Exam Vital Signs: Temp Pulse Resp BP Pulse Ox 97.9 F 81 16 116/78 100 05/05/20 15:26 05/05/20 15:26 05/05/20 15:26 05/05/20 15:26 05/05/20 15:26 Intake & Output 05/04/20 05/05/20 05/06/20 06:59 06:59 06:59 Intake Total 2723 2123 3283 Output Total 1800 1450 700 Balance 583 049 0794 Weight 67.2 kg 62.1 kg General appearance: PRESENT: no acute distress Eye exam: PRESENT: PERRLA Respiratory exam: PRESENT: clear to auscultation carolyn Cardiovascular exam: PRESENT: +S1, +S2 GI/Abdominal exam: PRESENT: soft Neurological exam: PRESENT: alert Results Laboratory Results: 05/05/20 06:20 05/05/20 06:20 05/05/20 05/05/20 06:20 06:20 WBC 3.2 L RBC 1.28 L Hgb 6.1 L Hct 17.2 L MCV 135 H D MCH 47.5 H MCHC 35.2 RDW 20.1 H Plt Count 205 Seg Neutrophils % Not Reportable Sodium 138.8 Potassium 4.1 Chloride 105 Carbon Dioxide 27 Anion Gap 7 BUN 5 L Creatinine 0.55 Est GFR ( Amer) > 60 Glucose 111 H Calcium 8.6 Total Bilirubin 3.4 H AST 54 H Alkaline Phosphatase 126 Total Protein 6.6 Albumin 3.7 04/20/20 20:59 Troponin I < 0.012 Impressions: Chest X-Ray 04/20/20 18:25 IMPRESSION: NO SIGNIFICANT RADIOGRAPHIC FINDING IN THE CHEST. Venous Doppler Study 04/29/20 00:00 IMPRESSION: NO EVIDENCE DVT OR SVT IN THE LEFT ARM. Assessment & Plan - Diagnosis (1) Sickle cell anemia with crisis Is this a current diagnosis for this admission?: Yes Plan: Continue present plan - Time Time Spent with patient: Less than 15 minutes Level of Care: MEDICAL Medications reviewed and adjusted accordingly: Yes Anticipated discharge: Home Anticipated DC Timeframe: within 24 hours
[2020-05-06] MEDS: PROMETHAZINE HCL INJ 25 MG/1 ML VIAL IV PRN ×4 (01:32→20:30)
[2020-05-06] MEDS: HYDROMORPHONE HCL INJ/PF 2 MG/ML AMPULE IV PRN ×11 (01:32→22:43)
[2020-05-06] MEDS: DIPHENHYDRAMINE HCL 50 MG/ML VIAL IV PRN ×3 (05:56→18:39)
--- NOTE | 2020-05-06 08:31 | PDOC PROGRESS REPORT ---
Subjective Date:: 05/06/20 Subjective:: Patient states that she has not been feeling as good today. Her oxygen had been turned off. She did states that she was able to get up walking yesterday. She would still like to go home tomorrow. Her pain medications have been weaned yesterday. Reason For Visit: SICKLE CELL CRISIS Physical Exam Vital Signs: Temp Pulse Resp BP Pulse Ox 99.0 F 81 17 107/56 L 93 05/06/20 07:48 05/06/20 04:01 05/06/20 04:01 05/06/20 04:01 05/06/20 04:01 Intake & Output 05/05/20 05/06/20 05/07/20 06:59 06:59 06:59 Intake Total 2123 5908 Output Total 1450 1300 Balance 673 4608 Weight 62.1 kg 59.1 kg General appearance: PRESENT: no acute distress Head exam: PRESENT: normocephalic Eye exam: PRESENT: EOMI Respiratory exam: PRESENT: unlabored Extremities exam: ABSENT: pedal edema Musculoskeletal exam: PRESENT: other - No change from previous. Neurological exam: PRESENT: alert, awake Psychiatric exam: PRESENT: appropriate affect Skin exam: PRESENT: normal color Results Laboratory Results: 05/05/20 06:20 05/05/20 06:20 05/05/20 06:20 WBC 3.2 L RBC 1.28 L Hgb 6.1 L Hct 17.2 L MCV 135 H D MCH 47.5 H MCHC 35.2 RDW 20.1 H Plt Count 205 Seg Neutrophils % Not Reportable 04/20/20 20:59 Troponin I < 0.012 Impressions: Chest X-Ray 04/20/20 18:25 IMPRESSION: NO SIGNIFICANT RADIOGRAPHIC FINDING IN THE CHEST. Venous Doppler Study 04/29/20 00:00 IMPRESSION: NO EVIDENCE DVT OR SVT IN THE LEFT ARM. Assessment & Plan - Diagnosis (1) Sickle cell pain crisis Is this a current diagnosis for this admission?: Yes Plan: Continue to wean narcotics. Hopefully, she will be ready for discharge tomorrow morning. - Time Time Spent with patient: Less than 15 minutes
[2020-05-06] MEDS: HYDROXYUREA 500 MG CAPSULE PO SCH ×2 (10:05→22:09)
[2020-05-06] MEDS: OXYCODONE HCL SR 10 MG TABLET PO SCH ×2 (10:05→22:08)
[2020-05-06] MEDS: CHOLECALCIFEROL (D3) 1,000 UNIT (25 MCG) TABLET PO SCH (10:05)
[2020-05-06] MEDS: GABAPENTIN 300 MG CAPSULE PO SCH ×2 (10:05→22:08)
[2020-05-06] MEDS: ENOXAPARIN SODIUM INJ 40 MG/0.4 ML DISP.SYRIN SUBCUT SCH (10:09)
[2020-05-06] MEDS: NORMAL SALINE 1000 ML 1,000 ML with POTASSIUM CHLORIDE 20 MEQ, MAGNESIUM SULFATE 8 MEQ,... IV SCH ×5 (17:17)
--- NOTE | 2020-05-06 22:35 | PDOC PROGRESS REPORT ---
Subjective Date:: 05/06/20 Subjective:: Patient seen by the bedside no new complaints Reason For Visit: SICKLE CELL CRISIS Physical Exam Vital Signs: Temp Pulse Resp BP Pulse Ox 99.5 F 89 20 95/60 L 96 05/06/20 19:18 05/06/20 19:18 05/06/20 19:18 05/06/20 19:18 05/06/20 19:18 Intake & Output 05/05/20 05/06/20 05/07/20 06:59 06:59 06:59 Intake Total 2123 5908 1903 Output Total 1450 1300 Balance 673 4608 1903 Weight 62.1 kg 59.1 kg 59.1 kg General appearance: PRESENT: no acute distress Eye exam: PRESENT: PERRLA Respiratory exam: PRESENT: clear to auscultation carolyn Cardiovascular exam: PRESENT: +S1, +S2 GI/Abdominal exam: PRESENT: soft Neurological exam: PRESENT: alert Results Laboratory Results: 05/05/20 06:20 05/05/20 06:20 04/20/20 20:59 Troponin I < 0.012 Impressions: Chest X-Ray 04/20/20 18:25 IMPRESSION: NO SIGNIFICANT RADIOGRAPHIC FINDING IN THE CHEST. Venous Doppler Study 04/29/20 00:00 IMPRESSION: NO EVIDENCE DVT OR SVT IN THE LEFT ARM. Assessment & Plan - Diagnosis (1) Sickle cell anemia with crisis Is this a current diagnosis for this admission?: Yes - Time Time Spent with patient: Less than 15 minutes Level of Care: IMCU Medications reviewed and adjusted accordingly: Yes Anticipated discharge: Home Anticipated DC Timeframe: within 24 hours
[2020-05-07] MEDS: HYDROMORPHONE HCL INJ/PF 2 MG/ML AMPULE IV PRN ×3 (00:56→05:41)
[2020-05-07] MEDS: DIPHENHYDRAMINE HCL 50 MG/ML VIAL IV PRN ×3 (01:04→14:25)
[2020-05-07] MEDS ORDERED: HYDROMORPHONE HCL INJ/PF 2 MG/ML AMPULE IV PRN (06:48)
[2020-05-07] MEDS ORDERED: EPOETIN ALFA-EPBX 40,000 UNIT/ML VIAL (NON-ESRD) SUBCUT SCH (07:00)
--- NOTE | 2020-05-07 08:11 | PDOC PROGRESS REPORT ---
Subjective Date:: 05/07/20 Subjective:: Patient sleeping peacefully upon entering, but arouses easily. States that she had some blood tinged sputum yesterday and still is having left arm pain. Otherwise, no changes. She agrees that she is ready for discharge today. Reason For Visit: SICKLE CELL CRISIS Physical Exam Vital Signs: Temp Pulse Resp BP Pulse Ox 98.6 F 84 18 110/61 100 05/07/20 03:39 05/07/20 03:39 05/07/20 03:39 05/07/20 03:39 05/07/20 03:39 Intake & Output 05/06/20 05/07/20 05/08/20 06:59 06:59 06:59 Intake Total 5908 3183 Output Total 1300 3550 Balance 4608 -367 Weight 59.1 kg 59.7 kg General appearance: PRESENT: no acute distress Head exam: PRESENT: normocephalic Eye exam: PRESENT: EOMI Respiratory exam: PRESENT: unlabored Neurological exam: PRESENT: alert, awake Psychiatric exam: PRESENT: appropriate affect Skin exam: PRESENT: normal color Results Laboratory Results: 05/05/20 06:20 05/05/20 06:20 04/20/20 20:59 Troponin I < 0.012 Impressions: Chest X-Ray 04/20/20 18:25 IMPRESSION: NO SIGNIFICANT RADIOGRAPHIC FINDING IN THE CHEST. Venous Doppler Study 04/29/20 00:00 IMPRESSION: NO EVIDENCE DVT OR SVT IN THE LEFT ARM. Assessment & Plan - Diagnosis (1) Sickle cell pain crisis Is this a current diagnosis for this admission?: Yes Plan: HGB increasing. I will give EPO today prior to discharge. Follow-up as outpatient. I will arrange all narcotics for her. - Time Time Spent with patient: Less than 15 minutes - Plan Summary Plan Summary: Patient was discussed with Dr. Mccabe
[2020-05-07 08:16] VITALS: BP 95/54
[2020-05-07] MEDS: NORMAL SALINE 1000 ML 1,000 ML IV PRN (08:30)
--- NOTE | 2020-05-07 08:30 | PDOC DISCHARGE SUMMARY ---
Impression - Admit/DC Date/PCP Admission Date/Primary Care Provider: 04/21/20 02:11 SAVANNA AWAN MD Discharge Date: 05/07/20 - Discharge Diagnosis (1) Sickle cell anemia with crisis Is this a current diagnosis for this admission?: Yes - Additional Information Resuscitation Status: Full Code Referrals: SAVANNA AWAN MD [Primary Care Provider] - Follow up as needed Home Medications: Deferasirox [Jadenu] 360 mg PO DAILY 08/13/19 Epoetin Federico [Procrit Inj 20,000 Unit/1 ml Vial (Renal)] 60,000 unit IJ FR@1000 08/13/19 Folic Acid 1 mg PO DAILY 08/13/19 Gabapentin [Neurontin 300 mg Capsule] 300 mg PO Q12 08/13/19 Hydroxyurea [Hydrea 500 mg Capsule] 500 mg PO TID 08/13/19 Oxycodone HCl [Oxy-Ir 5 mg Tablet] 10 mg PO Q6HP PRN 08/13/19 Cholecalciferol (Vitamin D3) [Vitamin D3 1000 Unit Tablet] 5,000 unit PO DAILY 11/29/19 Oxycodone Myristate [Xtampza ER] 27 mg PO Q12 11/29/19 Ergocalciferol (Vitamin D2) [Drisdol 50,000 unit (1.25MG) Capsule] 50,000 unit PO WE@1000 01/12/20 Multivitamin [Tab-A-Yosvany (Multiple Vitamin) Tablet] 1 tab PO DAILY 01/12/20 History of Present Illiness History of Present Illness: WILLIE ALAN is a 50 year old female She has sickle cell disease, she presented to the emergency room for evaluation of generalized body pains, chest pain, she has multiple hospitalization for the management of acute sickle cell crisis Hospital Course Hospital Course: Patient was admitted for the management of sickle cell bone pain crisis, she was seen in consultation by account support analyst Dr. 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 Physical Exam Vital Signs: Temp Pulse Resp BP Pulse Ox 98.4 F 82 16 95/54 L 100 05/07/20 07:53 05/07/20 07:53 05/07/20 07:53 05/07/20 07:53 11/18/20 07:53 Intake & Output 05/06/20 05/07/20 05/08/20 06:59 06:59 06:59 Intake Total 5908 3183 1023 Output Total 6620 3550 Balance 4608 -367 1023 Weight 59.1 kg 59.7 kg General appearance: PRESENT: no acute distress Eye exam: PRESENT: PERRLA Respiratory exam: PRESENT: clear to auscultation carolyn Cardiovascular exam: PRESENT: +S1, +S2 GI/Abdominal exam: PRESENT: soft Neurological exam: PRESENT: alert, CN II-XII grossly intact Results Laboratory Results: WBC 3.2 10^3/uL (4.0-10.5) L 05/05/20 06:20 RBC 1.28 10^6/uL (3.72-5.28) L 05/05/20 06:20 Hgb 6.1 g/dL (12.0-15.5) L 05/05/20 06:20 Hct 17.2 % (36.0-47.0) L 05/05/20 06:20 MCV 135 fl (80-97) H D 05/05/20 06:20 MCH 47.5 pg (27.0-33.4) H 05/05/20 06:20 MCHC 35.2 g/dL (32.0-36.0) 05/05/20 06:20 RDW 20.1 % (11.5-14.0) H 05/05/20 06:20 Plt Count 205 10^3/uL (150-450) 05/05/20 06:20 Lymph % (Auto) Not Reportable 05/05/20 06:20 [place] % (Auto) Not Reportable 05/05/20 06:20 Eos % (Auto) Not Reportable 05/05/20 06:20 Baso % (Auto) Not Reportable 05/05/20 06:20 Reticulocyte # 0.092 10^6/uL (0.028-0.122) 04/20/20 20:59 Absolute Neuts (auto) Not Reportable 05/05/20 06:20 Absolute Lymphs (auto) Not Reportable 05/05/20 06:20 Absolute Monos (auto) Not Reportable 05/05/20 06:20 Absolute Eos (auto) Not Reportable 05/05/20 06:20 Absolute Basos (auto) Not Reportable 05/05/20 06:20 Total Counted 100 05/05/20 06:20 Seg Neutrophils % Not Reportable 05/05/20 06:20 Seg Neuts % (Manual) 35 % (42-78) L 05/05/20 06:20 Lymphocytes % (Manual) 54 % (13-45) H 05/05/20 06:20 Atypical Lymphs % 1 % (0) 04/25/20 07:45 Monocytes % (Manual) 3 % (3-13) 05/05/20 06:20 Eosinophils % (Manual) 7 % (0-6) H 05/05/20 06:20 Basophils % (Manual) 1 % (0-2) 05/05/20 06:20 Abs Neuts (Manual) 1.9 10^3/uL (1.7-8.2) 05/05/20 06:20 Abs Lymphs (Manual) 2.9 10^3/uL (0.5-4.7) 05/05/20 06:20 Abs Monocytes (Manual) 0.2 10^3/uL (0.1-1.4) 05/05/20 06:20 Absolute Eos (Manual) 0.4 10^3/uL (0.0-0.6) 05/05/20 06:20 Abs Basophils (Manual) 0.1 10^3/uL (0.0-0.2) 05/05/20 06:20 Nucleated RBCs 102 /100 WBC (0) 05/05/20 06:20 Toxic Vacuolation PRESENT 05/02/20 05:10 Large Platelets PRESENT 04/29/20 05:40 Platelet Comment ADEQUATE 05/05/20 06:20 Polychromasia 2+ 05/05/20 06:20 Poikilocytosis 2+ 05/05/20 06:20 Basophilic Stippling PRESENT 04/25/20 07:45 Anisocytosis 2+ 05/05/20 06:20 Macrocytosis 4+ 05/05/20 06:20 Pappenheimer Bodies PRESENT 05/05/20 06:20 Sickle Cells 1+ 05/05/20 06:20 Target Cells 1+ 05/05/20 06:20 Tear Drop Cells SLIGHT 05/05/20 06:20 Ovalocytes SLIGHT 05/02/20 05:10 Kendall-Barton Bodies PRESENT 05/05/20 06:20 Schistocytes SLIGHT 05/05/20 06:20 Retic Count (auto) 5.24 % (0.66-2.85) H 04/20/20 20:59 Sodium 138.8 mmol/L (137-145) 05/05/20 06:20 Potassium 4.1 mmol/L (3.6-5.0) 05/05/20 06:20 Chloride 105 mmol/L (98-107) 05/05/20 06:20 Carbon Dioxide 27 mmol/L (22-30) 05/05/20 06:20 Anion Gap 7 (5-19) 05/05/20 06:20 BUN 5 mg/dL (7-20) L 05/05/20 06:20 Creatinine 0.55 mg/dL (0.52-1.25) 05/05/20 06:20 Est GFR ( Amer) > 60 (>60) 05/05/20 06:20 Est GFR (MDRD) Non-Af > 60 (>60) 05/05/20 06:20 Glucose 111 mg/dL (75-110) H 05/05/20 06:20 Calcium 8.6 mg/dL (8.4-10.2) 05/05/20 06:20 Total Bilirubin 3.4 mg/dL (0.2-1.3) H 05/05/20 06:20 Direct Bilirubin 0.5 mg/dL (0.0-0.4) H 05/05/20 06:20 Neonat Total Bilirubin Not Reportable 05/05/20 06:20 Neonat Direct Bilirubin Not Reportable 05/05/20 06:20 Neonat Indirect Bili Not Reportable 05/05/20 06:20 AST 54 U/L (14-36) H 05/05/20 06:20 ALT 28 U/L (<35) 05/05/20 06:20 Alkaline Phosphatase 126 U/L (38-126) 05/05/20 06:20 Lactate Dehydrogenase 454 U/L (120-246) H 05/05/20 06:20 Troponin I < 0.012 ng/mL 04/20/20 20:59 Total Protein 6.6 g/dL (6.3-8.2) 05/05/20 06:20 Albumin 3.7 g/dL (3.5-5.0) 05/05/20 06:20 Lipase 50.3 U/L (23-300) 04/20/20 20:59 Vitamin D 25-Hydroxy 31.5 ng/mL (14.7-68.3) 04/22/20 06:45 Urine Color YELLOW 04/30/20 00:00 Urine Appearance CLEAR 04/30/20 00:00 Urine pH 7.0 (5.0-9.0) 04/30/20 00:00 Ur Specific [place] 1.008 04/30/20 00:00 Urine Protein NEGATIVE mg/dL (NEGATIVE) 04/30/20 00:00 Urine Glucose (UA) NEGATIVE mg/dL (NEGATIVE) 04/30/20 00:00 Urine Ketones NEGATIVE mg/dL (NEGATIVE) 04/30/20 00:00 Urine Blood NEGATIVE (NEGATIVE) 04/30/20 00:00 Urine Nitrite NEGATIVE (NEGATIVE) 04/21/20 00:16 Urine Nitrite (Reflex) NEGATIVE (NEGATIVE) 04/30/20 00:00 Urine Bilirubin NEGATIVE (NEGATIVE) 04/30/20 00:00 Urine Urobilinogen 2.0 mg/dL (<2.0) H 04/30/20 00:00 Ur Leukocyte Esterase NEGATIVE (NEGATIVE) 04/21/20 00:16 Leukocyte Esterase Rfl NEGATIVE (NEGATIVE) 04/30/20 00:00 Urine WBC (Auto) 10 /HPF 04/21/20 00:16 Urine RBC (Auto) 2 /HPF 04/21/20 00:16 U Hyaline Cast (Auto) 1 /LPF 04/21/20 00:16 Urine WBC (Reflex) < 1 /HPF 04/30/20 00:00 Squamous Epi Cells Auto <1 /HPF 04/30/20 00:00 Urine Mucus (Auto) RARE /LPF 04/30/20 00:00 Urine Ascorbic Acid NEGATIVE (NEGATIVE) 04/30/20 00:00 Urine HCG, Qual NEGATIVE (NEGATIVE) 04/21/20 00:16 04/20/20 20:59 Troponin I < 0.012 Impressions: Chest X-Ray 04/20/20 18:25 IMPRESSION: NO SIGNIFICANT RADIOGRAPHIC FINDING IN THE CHEST. Venous Doppler Study 04/29/20 00:00 IMPRESSION: NO EVIDENCE DVT OR SVT IN THE LEFT ARM. Stroke Is this a Stroke Patient?: No Acute Heart Failure Is this a Heart Failure Patient?: No
[2020-05-07] MEDS: OXYCODONE HCL SR 10 MG TABLET PO SCH (09:32)
[2020-05-07] MEDS: HYDROXYUREA 500 MG CAPSULE PO SCH (09:32)
[2020-05-07] MEDS: GABAPENTIN 300 MG CAPSULE PO SCH (09:32)
[2020-05-07] MEDS: CHOLECALCIFEROL (D3) 1,000 UNIT (25 MCG) TABLET PO SCH (09:34)
[2020-05-07] MEDS: ENOXAPARIN SODIUM INJ 40 MG/0.4 ML DISP.SYRIN SUBCUT SCH (09:37)
[2020-05-07] MEDS ORDERED: EPOETIN ALFA-EPBX 40,000 UNIT/ML VIAL (NON-ESRD) SUBCUT ONE (11:30)
[2020-05-07] MEDS: PROMETHAZINE HCL INJ 25 MG/1 ML VIAL IV PRN (11:49)
== END 2020-05-07 16:18 | disposition home or self-care (01) | DRG 812 ==
LOC: ER 18:12 → EH 04-21 02:11 → 4S 04-21 03:05 → 2S 04-30 20:48
PROVIDERS: ADMIT Internal Medicine; ATTEND Internal Medicine
DX: D57.00 Hb-SS disease with crisis, unspecified (principal); G89.4 Chronic pain syndrome; M24.412 Recurrent dislocation, left shoulder; Z79.899 Other long term (current) drug therapy; Z88.3 Allergy status to other anti-infective agents
CPT/HCPCS: 36415; 36591; 71045; 80053; 81001; 81025; 82306; 83615; 83690; 84484; 85025; 85045; 93005; 93010; 93971; 96361; 96372; 96374; 96375; 96376; 99285; J0131; J1170; J1200; J1642; J1650; J2550; J3411; J3475; J3480; J3490; J7030; Q5106

== ENCOUNTER 2020-06-01 18:30 | Inpatient (IN) | payer MEDICAID ==
[2020-06-01] MEDS ORDERED: MORPHINE SULFATE 10 MG/ML INJ IV ONE (18:43)
[2020-06-01] MEDS ORDERED: NORMAL SALINE 1000 ML 1,000 ML IV ONE (18:43)
[2020-06-01] MEDS ORDERED: ONDANSETRON 4 MG TAB.RAPDIS PO ONE (18:43)
[2020-06-01] MEDS ORDERED: ONDANSETRON HCL INJ/PF 4 MG/2 ML SDV IV ONE (18:44)
--- NOTE | 2020-06-01 18:48 | ER Document Report ---
ED Medical Screen (RME) - General Chief Complaint: Sickle Cell Crisis Stated Complaint: MUSCLE PAINS Time Seen by Provider: 06/01/20 18:36 Primary Care Provider: SAVANNA RAMIREZ MD [Primary Care Provider] - Follow up as needed - HPI Notes: Patient is a 50-year-old female with history of sickle cell disease who presents with sickle cell crisis. Patient states her symptoms started 2 days ago which include chest pain, back pain, abdominal pain, and upper and lower extremity pain. She states this is classic for her typical sickle cell crisis. She currently takes oxycodone for pain relief which she took 4 tablets today. She also takes hydroxyurea. She has managed by Dr. Roberson as her PCP and Dr. 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 She states her last sickle cell crisis was about 2 months ago. Patient is asplenic. - Related Data Allergies/Adverse Reactions: doxycycline [Doxycycline] Allergy (Severe, Verified 06/01/20 18:35) Home Medications: Oxycodone Past Medical History - Social History Frequency of alcohol use: None Drug Abuse: None - Past Medical History Cardiac Medical History: Reports: Hx Heart Murmur Denies: Hx Atrial Fibrillation, Hx Congestive Heart Failure, Hx Coronary Artery Disease, Hx Heart Attack, Hx Hypercholesterolemia, Hx Hypertension, Hx Peripheral Vascular Disease Pulmonary Medical History: Denies: Hx Tuberculosis Neurological Medical History: Denies: Hx Seizures Renal/ Medical History: Reports: Hx Ovarian Cysts. 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 Denies: Hx HIV Past Surgical History: Reports: Hx Appendectomy, Hx Section, Hx Cholecystectomy, Hx Orthopedic Surgery - R knee, Hx Tonsillectomy. Denies: Hx Bowel Surgery, Hx Coronary Artery Bypass Graft, Hx Gastric Bypass Surgery, Hx Herniorrhaphy, Hx Mastectomy, Hx Pacemaker, Hx Tubal Ligation - Immunizations Immunizations up to date: Yes Hx Diphtheria, Pertussis, Tetanus Vaccination: Yes Physical Exam - Vital signs Vitals: Temp Pulse Resp BP Pulse Ox 98.3 F 76 20 107/63 100 06/01/20 18:36 06/01/20 18:36 06/01/20 18:36 06/01/20 18:36 06/01/20 18:36 Interpretation: Normal - Cardiovascular Rhythm: Regular Heart sounds: Normal auscultation Course - Re-evaluation Re-evalutation: I have greeted and performed a rapid initial assessment of this patient. A comprehensive ED assessment and evaluation of the patient, analysis of test results and completion of medical decision making process will be conducted by an additional ED providers. - Vital Signs Vital signs: Temp Pulse Resp BP Pulse Ox 98.3 F 76 20 107/63 100 06/01/20 18:36 06/01/20 18:36 06/01/20 18:36 06/01/20 18:36 06/01/20 18:36 Doctor's Discharge - Discharge Referrals: SAVANNA RAMIREZ MD [Primary Care Provider] - Follow up as needed
--- NOTE | 2020-06-01 19:41 | RADIOLOGY REPORT (SQ) ---
EXAM DESCRIPTION: CHEST SINGLE VIEW IMAGES COMPLETED DATE/TIME: 06/01/2020 7:29 pm REASON FOR STUDY: chest pain, sickle cell crisis COMPARISON: Chest radiographs 04/20/2020. EXAM PARAMETERS: NUMBER OF VIEWS: One view. TECHNIQUE: Single frontal radiographic view of the chest acquired. RADIATION DOSE: NA LIMITATIONS: None. FINDINGS: LUNGS AND PLEURA: No opacities, masses or pneumothorax. No pleural effusion. MEDIASTINUM AND HILAR STRUCTURES: No masses. Contour normal. HEART AND VASCULAR STRUCTURES: Heart normal in size. Normal vasculature. BONES: No acute findings. HARDWARE: Unchanged position left chest wall port catheter. OTHER: Right upper quadrant surgical clips IMPRESSION: No acute pulmonary findings. TECHNICAL DOCUMENTATION: JOB ID: [id number] [email or web address]- All Rights Reserved Reading location - IP/workstation name: [email or web address]
[2020-06-01 20:21] LABS: ABSOLUTE RETICS # 0.087 10^6/uL (0.028-0.122); MEAN CORPUSCULAR HEMOGLOBIN 45.6 pg (27.0-33.4); MEAN CORPUSCULAR HGB CONC 34.9 g/dL (32.0-36.0); PLATELET COUNT 198 10^3/uL (150-450); RED BLOOD COUNT 1.45 10^6/uL (3.72-5.28); RETICULOCYTE COUNT (AUTO) 5.99 % (0.66-2.85); WHITE BLOOD COUNT 4.9 10^3/uL (4.0-10.5)
[2020-06-01 20:24] LABS: ALBUMIN 4.1 g/dL (3.5-5.0); ALKALINE PHOSPHATASE 126 U/L (38-126); ANION GAP 8 (5-19); ASPARTATE AMINO TRANSFERASE 47 U/L (14-36); BILIRUBIN,DIRECT 0.6 mg/dL (0.0-0.4); BILIRUBIN,TOTAL 3.8 mg/dL (0.2-1.3); BLOOD UREA NITROGEN 6 mg/dL (7-20); CALCIUM 9.1 mg/dL (8.4-10.2); CARBON DIOXIDE 25 mmol/L (22-30); CHLORIDE 103 mmol/L (98-107); GLUCOSE 92 mg/dL (75-110); POTASSIUM 4.1 mmol/L (3.6-5.0); TOTAL PROTEIN 7.3 g/dL (6.3-8.2)
[2020-06-01] MEDS ORDERED: HYDROMORPHONE HCL INJ/PF 2 MG/ML AMPULE IV ONE ×2 (20:41→23:08)
[2020-06-01] MEDS ORDERED: DIPHENHYDRAMINE HCL 50 MG/ML VIAL IV ONE ×2 (20:42→23:08)
[2020-06-01 20:58] LABS: MEAN CORPUSCULAR VOLUME 131 fl (80-97)
[2020-06-01 21:00] LABS: HEMOGLOBIN 6.6 g/dL (12.0-15.5)
[2020-06-01 21:05] LABS: ABSOLUTE MONOCYTES # (MANUAL) 0.2 10^3/uL (0.1-1.4); BASOPHILS % (MANUAL) 1 % (0-2); EOSINOPHILS % (MANUAL) 5 % (0-6); LYMPHOCYTES % (MANUAL) 41 % (13-45); MONOCYTES % (MANUAL) 4 % (3-13); NUCLEATED RED BLOOD CELLS 4 /100 WBC (0); SEGMENTED NEUTROPHILS % (MAN) 49 % (42-78); TOTAL CELLS COUNTED 100
[2020-06-01 21:06] LABS: TOXIC GRANULATION 1+
[2020-06-01 21:07] LABS: ANISOCYTOSIS 1+; OVALOCYTES 1+; PLATELET COMMENT ADEQUATE; POIKILOCYTOSIS 1+; SCHISTOCYTES 1+; SICKLE RED CELLS 1+; TARGET CELLS 1+; TEAR DROP CELLS SLIGHT
--- NOTE | 2020-06-01 21:50 | ER Document Report ---
ED General - General Chief Complaint: Sickle Cell Crisis Stated Complaint: MUSCLE PAINS Time Seen by Provider: 06/01/20 18:36 Notes: Patient is a 50-year-old female that comes to the emergency department for chief complaint of sickle cell pain crisis. Patient states that her symptoms started 2 days ago when she started having a fever and chills, she states her highest fever was 103 F, she states she has been taking Tylenol for this at home. She states she has had generalized pain including her arms, legs, back, and chest, however she denies sore throat, cough, shortness of breath, congestion, vomiting, dysuria. She denies any obvious sick contacts. Patient also states that she has an itchy rash mainly on her feet but she usually gets this when she has a pain crisis. Patient is asplenic, he is on hydroxyurea and oxycodone at home. She follows with Dr. Ramirez and Dr. Roberson. - Related Data Allergies/Adverse Reactions: doxycycline [Doxycycline] Allergy (Severe, Verified 06/01/20 18:35) Home Medications: Oxycodone Past Medical History - General Information source: Patient - Social History Smoking Status: Never Smoker Frequency of alcohol use: None Drug Abuse: None Lives with: Family Family History: Reviewed & Not Pertinent - Past Medical History Cardiac Medical History: Reports: Hx Heart Murmur Denies: Hx Atrial Fibrillation, Hx Congestive Heart Failure, Hx Coronary Artery Disease, Hx Heart Attack, Hx Hypercholesterolemia, Hx Hypertension, Hx Peripheral Vascular Disease Pulmonary Medical History: Denies: Hx Tuberculosis Neurological Medical History: Denies: Hx Seizures Renal/ Medical History: Reports: Hx Ovarian Cysts. 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 Denies: Hx HIV Past Surgical History: Reports: Hx Appendectomy, Hx Section, Hx Cholecystectomy, Hx Orthopedic Surgery - R knee, Hx Tonsillectomy. Denies: Hx Bowel Surgery, Hx Coronary Artery Bypass Graft, Hx Gastric Bypass Surgery, Hx Herniorrhaphy, Hx Mastectomy, Hx Pacemaker, Hx Tubal Ligation - Immunizations Immunizations up to date: Yes Hx Diphtheria, Pertussis, Tetanus Vaccination: Yes Hx Pneumococcal Vaccination: 03/20/14 Review of Systems - Review of Systems Constitutional: See HPI EENT: No symptoms reported Cardiovascular: No symptoms reported Respiratory: No symptoms reported Gastrointestinal: No symptoms reported Genitourinary: No symptoms reported Female Genitourinary: No symptoms reported Musculoskeletal: See HPI Skin: See HPI Hematologic/Lymphatic: No symptoms reported Neurological/Psychological: No symptoms reported Physical Exam - Vital signs Vitals: Temp Pulse Resp BP Pulse Ox 98.3 F 76 20 107/63 100 06/01/20 18:36 06/01/20 18:36 06/01/20 18:36 06/01/20 18:36 06/01/20 18:36 - Notes Notes: GENERAL: Alert, interacts well. No acute distress. HEAD: Normocephalic, atraumatic. EYES: Pupils equal, round, and reactive to light. Extraocular movements intact. ENT: Oral mucosa moist, tongue midline. Oropharynx unremarkable. Airway patent. NECK: Full range of motion. Supple. Trachea midline. No lymphadenopathy. LUNGS: Clear to auscultation bilaterally, no wheezes, rales, or rhonchi. No respiratory distress. Non-tender chest wall. HEART: Regular rate and rhythm. No murmur ABDOMEN: Soft, non-tender. Non-distended. EXTREMITIES: Moves all 4 extremities spontaneously. No edema, normal radial and dorsalis pedis pulses bilaterally. No cyanosis. BACK: no cervical, thoracic, lumbar midline tenderness. No saddle anesthesia, normal distal neurovascular exam. Moves all extremities in full range of motion. NEUROLOGICAL: Alert and oriented x3. Normal speech. Cranial nerves II through XII grossly intact. Strength 5/5 in all extremities. PSYCH: Normal affect, normal mood. SKIN: Scattered maculopapular rash with some dried areas over the dorsal right foot mainly, questionably minimally over the forearms. No induration, fluctuance, cellulitis, wounds. Unremarkable otherwise. Course - Re-evaluation Re-evalutation: Patient has a rash that has an eczema-like appearance over the right foot dorsally mainly, however her physical exam otherwise is unremarkable. No severe distress. No hypoxia, tachycardia, fever. Patient states she has had a fever at home along with chills. Patient has received initially morphine and then Dilaudid from triage provider. She is still complaining of pain and states she does not feel comfortable going home. CBC shows anemia with hemoglobin of 6.6, however this is very similar to prior. Reticulocyte count is elevated. Indurated bilirubin is also elevated suggesting sickling. Chest x-ray unremarkable. I discussed with patient again, she states she feels like she should be admitted for her symptoms. Patient will be COVID-19 tested as well because of her reported fevers and chills without an obvious diagnosed source. I called and spoke with Dr. Roberson, on-call for Dr. Roberson, patient will be accepted to the medical floor for admission under Dr. Roberson service. - Vital Signs Vital signs: Temp Pulse Resp BP Pulse Ox 98.7 F 66 16 91/57 L 99 06/02/20 02:22 06/02/20 02:22 06/02/20 02:22 06/02/20 02:22 06/02/20 02:22 - Laboratory Results Result Diagrams: 06/01/20 20:00 06/01/20 20:00 Laboratory Results Interpreted: 06/01/20 06/01/20 20:00 20:00 RBC 1.45 L Hgb 6.6 L Hct 19.0 L MCV 131 H D MCH 45.6 H RDW 18.0 H Retic Count (auto) 5.99 H Sodium 135.8 L BUN 6 L Total Bilirubin 3.8 H Direct Bilirubin 0.6 H AST 47 H Critical Laboratory Results Reviewed: No Critical Results - Radiology Results Critical Radiology Results Reviewed: No Critical Results - EKG Interpretation by Me Additional EKG results interpreted by me: EKG shows sinus rhythm at a rate of 68, QTc 477, normal axis, no T wave in versions or ST-segment changes in consecutive leads Discharge - Discharge Clinical Impression: Chills, Sickle cell pain crisis, Skin rash Condition: Stable Disposition: ADMITTED INPATIENT Admitting Provider: Da Unit Admitted: Medical Floor
--- NOTE | 2020-06-02 00:18 | EKG REPORT ---
SEVERITY:- NORMAL ECG - SINUS RHYTHM : Confirmed by: Keyla Alexander 02-Jun-2020 00:18:02
[2020-06-02] MEDS ORDERED: HYDROMORPHONE HCL INJ/PF 2 MG/ML AMPULE IV PRN (03:18)
[2020-06-02 04:52] LABS: APPEARANCE,URINE CLEAR; BILIRUBIN,URINE NEGATIVE (NEGATIVE); COLOR,URINE YELLOW; GLUCOSE, URINE NEGATIVE (NEGATIVE); KETONES,URINE NEGATIVE (NEGATIVE); LEUKOCYTE ESTERASE,URINE NEGATIVE (NEGATIVE); NITRITE,URINE NEGATIVE (NEGATIVE); PROTEIN,URINE NEGATIVE (NEGATIVE); URINE SPECIFIC GRAVITY 1.009
[2020-06-02] MEDS: HYDROMORPHONE HCL INJ/PF 2 MG/ML AMPULE IV PRN ×6 (09:01→22:09)
[2020-06-02] MEDS: 1/2 NORMAL SALINE 1,000 ML IV PRN ×2 (09:01→16:46)
[2020-06-02] MEDS: HYDROXYUREA 500 MG CAPSULE PO SCH ×2 (10:05→17:31)
[2020-06-02] MEDS: DIPHENHYDRAMINE HCL 50 MG/ML VIAL IV PRN ×3 (10:05→19:41)
[2020-06-02] MEDS: FOLIC ACID 1 MG TABLET PO SCH (10:05)
[2020-06-02] MEDS: JADENU (DEFERASIROX) 360 MG TABLET PO SCH (14:19)
--- NOTE | 2020-06-02 16:36 | PDOC CONSULTATION ---
Consultation Consult Date: 06/02/20 Provider Consulted: SAVANNA AWAN Consult reason:: Hematology/Oncology consultation was requested for patient with Sickle Cell anemia in acute pain crisis. History of Present Illness Admission Date/PCP: 06/01/20 23:57 SAVANNA AWAN MD History of Present Illness: WILLIE ALAN is a 50 year old female who is admitted to [facility] about once a month for sickle cell pain crisis. Her most recent discharge date was 05/07/2020. Today, she states that she has been having increased abdominal pain and cramping. Her sickle cell pain is different this time, in that she has skin hypersensitivity and this has not happened since she was younger. Her regular home pain medications did not help. She tells me that she was recently able to start on a new medication called Oxbryta for her anemia. 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 Denies: HIV Past Surgical History Past Surgical History: Reports: Appendectomy, Section, Cholecystectomy, Orthopedic Surgery - R knee, Tonsillectomy Denies: Amputation, Coronary Artery Bypass Graft, Gastric Bypass Surgery, Herniorrhaphy, Mastectomy, Pacemaker, Tubal Ligation Social History Lives with: Family Smoking Status: Never Smoker Frequency of Alcohol Use: None Hx Recreational Drug Use: No Drugs: None Hx Prescription Drug Abuse: No Family History Family History: Reviewed & Not Pertinent Parental Family History Reviewed: Yes Children Family History Reviewed: Yes Sibling(s) Family History Reviewed.: Yes Medication/Allergy Home Medications: Gabapentin [Neurontin 300 mg Capsule] 300 mg PO Q12 08/13/19 Hydroxyurea [Hydrea 500 mg Capsule] 500 mg PO TID 08/13/19 Oxycodone HCl [Oxy-Ir 5 mg Tablet] 10 mg PO Q6HP PRN 08/13/19 Cholecalciferol (Vitamin D3) [Vitamin D3 1000 Unit Tablet] 5,000 unit PO DAILY 11/29/19 Oxycodone Myristate [Xtampza ER] 1 cap PO Q12 06/02/20 Allergies/Adverse Reactions: doxycycline [Doxycycline] Allergy (Severe, Verified 06/01/20 18:35) Review of Systems Constitutional: ABSENT: fever(s), headache(s) Eyes: ABSENT: visual disturbances Ears: ABSENT: hearing changes Nose, Mouth, and Throat: ABSENT: sore throat Respiratory: ABSENT: dyspnea Gastrointestinal: PRESENT: nausea Genitourinary: ABSENT: dysuria Musculoskeletal: PRESENT: joint swelling Neurological: PRESENT: as per HPI Hematologic/Lymphatic: ABSENT: easy bleeding Physical Exam Vital Signs: Temp Pulse Resp BP Pulse Ox 98.9 F 77 18 83/40 L 97 06/02/20 09:56 06/02/20 08:18 06/02/20 08:18 06/02/20 08:18 06/02/20 08:26 Intake & Output 06/01/20 06/02/20 06/03/20 06:59 06:59 06:59 Intake Total 1260 Balance 1260 Weight 60.1 kg General appearance: PRESENT: no acute distress, well-developed, well-nourished Head exam: PRESENT: normocephalic Eye exam: PRESENT: EOMI Mouth exam: PRESENT: tongue midline Neck exam: ABSENT: lymphadenopathy, tenderness Respiratory exam: PRESENT: clear to auscultation carolyn Cardiovascular exam: PRESENT: RRR GI/Abdominal exam: PRESENT: soft. ABSENT: tenderness Extremities exam: PRESENT: other - tender to light touch. Musculoskeletal exam: PRESENT: ambulatory, normal inspection Neurological exam: PRESENT: alert, awake Psychiatric exam: PRESENT: appropriate affect Skin exam: PRESENT: normal color Results Laboratory Results: 06/01/20 20:00 06/01/20 20:00 06/01/20 06/01/20 06/02/20 20:00 20:00 03:45 WBC 4.9 RBC 1.45 L Hgb 6.6 L Hct 19.0 L MCV 131 H D MCH 45.6 H MCHC 34.9 RDW 18.0 H Plt Count 198 Seg Neutrophils % Not Reportable Retic Count (auto) 5.99 H Sodium 135.8 L Potassium 4.1 Chloride 103 Carbon Dioxide 25 Anion Gap 8 BUN 6 L Creatinine 0.62 Est GFR ( Amer) > 60 Glucose 92 Calcium 9.1 Total Bilirubin 3.8 H AST 47 H Alkaline Phosphatase 126 Total Protein 7.3 Albumin 4.1 Urine Color YELLOW Urine Appearance CLEAR Urine pH 7.0 Ur Specific [place] 1.009 Urine Protein NEGATIVE Urine Glucose (UA) NEGATIVE Urine Ketones NEGATIVE Urine Blood NEGATIVE Urine Nitrite NEGATIVE Ur Leukocyte Esterase NEGATIVE Urine WBC (Auto) 0 Urine RBC (Auto) 0 06/01/20 20:00 Troponin I < 0.012 Impressions: Chest X-Ray 06/01/20 18:41 IMPRESSION: No acute pulmonary findings. Assessment & Plan - Diagnosis (1) Sickle cell pain crisis Is this a current diagnosis for this admission?: Yes Plan: Will give IV fluids, pain medication and O2. She is at high risk for DVT so will order Lovenox daily. Encourage ambulation. She will continue Oxbryta for anemia as well. She should receive EPO 40,000 units q Tue. I will arrange. (2) Iron overload due to repeated red blood cell transfusions Is this a current diagnosis for this admission?: Yes Plan: She will continue Jadenu.
[2020-06-02] MEDS: NORMAL SALINE IV SCH ×5 (17:31)
[2020-06-02] MEDS: MAGNESIUM SULFATE IV SCH ×5 (17:31)
[2020-06-02] MEDS: [UNRECOGNIZED DRUG - OTHER] IV SCH ×5 (17:31)
[2020-06-02] MEDS: POTASSIUM CHLORIDE IV SCH ×5 (17:31)
--- NOTE | 2020-06-02 19:53 | PDOC H&P ---
History of Present Illness Admission Date/PCP: 06/01/20 23:57 SAVANNA AWAN MD History of Present Illness: WILLIE ALAN is a 50 year old female She came to the emergency room for ev aluation of sickle cell pain crisis, she stated to the emergency room providers that are symptoms started about 2 days ago when she started having fever and chills and that a temperature was as high as 103 F she also stated that she has been taking Tylenol at home. The temperature recorded in the hospital was 98 F. 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 Past Surgical History Past Surgical History: Reports: Appendectomy, Section, Cholecystectomy, Orthopedic Surgery - R knee, Tonsillectomy Social History Lives with: Family Smoking Status: Never Smoker Frequency of Alcohol Use: None Hx Recreational Drug Use: No Drugs: None Hx Prescription Drug Abuse: No Family History Family History: Reviewed & Not Pertinent Parental Family History Reviewed: Yes Children Family History Reviewed: Yes Sibling(s) Family History Reviewed.: Yes Medication/Allergy Home Medications: Gabapentin [Neurontin 300 mg Capsule] 300 mg PO Q12 08/13/19 Hydroxyurea [Hydrea 500 mg Capsule] 500 mg PO TID 08/13/19 Oxycodone HCl [Oxy-Ir 5 mg Tablet] 10 mg PO Q6HP PRN 08/13/19 Cholecalciferol (Vitamin D3) [Vitamin D3 1000 Unit Tablet] 5,000 unit PO DAILY 11/29/19 Oxycodone Myristate [Xtampza ER] 1 cap PO Q12 06/02/20 Allergies/Adverse Reactions: doxycycline [Doxycycline] Allergy (Severe, Verified 06/01/20 18:35) Review of Systems Constitutional: PRESENT: fatigue Eyes: ABSENT: visual disturbances Ears: ABSENT: hearing changes Cardiovascular: ABSENT: chest pain, dyspnea on exertion, edema, orthropnea, palpitations Respiratory: ABSENT: cough, hemoptysis Gastrointestinal: ABSENT: abdominal pain, constipation, diarrhea, hematemesis, hematochezia, nausea, vomiting Genitourinary: ABSENT: dysuria, hematuria Musculoskeletal: PRESENT: back pain Integumentary: ABSENT: rash, wounds Neurological: ABSENT: abnormal gait, abnormal speech, confusion, dizziness, focal weakness, syncope Psychiatric: ABSENT: anxiety, depression, homidical ideation, suicidal ideation Endocrine: ABSENT: cold intolerance, heat intolerance, menstrual abnormalities, polydipsia, polyuria Hematologic/Lymphatic: ABSENT: easy bleeding, easy bruising, lymphadenopathy Physical Exam Vital Signs: Temp Pulse Resp BP Pulse Ox 98.3 F 68 14 93/55 L 99 06/02/20 15:26 06/02/20 15:26 06/02/20 15:26 06/02/20 15:26 06/02/20 15:26 Intake & Output 06/01/20 06/02/20 06/03/20 06:59 06:59 06:59 Intake Total 1260 1301 Balance 1260 1301 Weight 60.1 kg General appearance: PRESENT: no acute distress Head exam: PRESENT: atraumatic, normocephalic Eye exam: PRESENT: PERRLA Ear exam: PRESENT: normal external ear exam Neck exam: PRESENT: full ROM Respiratory exam: PRESENT: clear to auscultation carolyn Cardiovascular exam: PRESENT: RRR, +S1, +S2 Vascular exam: PRESENT: normal capillary refill GI/Abdominal exam: PRESENT: soft Rectal exam: PRESENT: deferred Neurological exam: PRESENT: alert, CN II-XII grossly intact Psychiatric exam: PRESENT: appropriate affect, normal mood Skin exam: PRESENT: dry, intact, warm Results Laboratory Results: 06/01/20 20:00 06/01/20 20:00 06/01/20 06/01/20 06/02/20 20:00 20:00 03:45 WBC 4.9 RBC 1.45 L Hgb 6.6 L Hct 19.0 L MCV 131 H D MCH 45.6 H MCHC 34.9 RDW 18.0 H Plt Count 198 Seg Neutrophils % Not Reportable Retic Count (auto) 5.99 H Sodium 135.8 L Potassium 4.1 Chloride 103 Carbon Dioxide 25 Anion Gap 8 BUN 6 L Creatinine 0.62 Est GFR ( Amer) > 60 Glucose 92 Calcium 9.1 Total Bilirubin 3.8 H AST 47 H Alkaline Phosphatase 126 Total Protein 7.3 Albumin 4.1 Urine Color YELLOW Urine Appearance CLEAR Urine pH 7.0 Ur Specific [place] 1.009 Urine Protein NEGATIVE Urine Glucose (UA) NEGATIVE Urine Ketones NEGATIVE Urine Blood NEGATIVE Urine Nitrite NEGATIVE Ur Leukocyte Esterase NEGATIVE Urine WBC (Auto) 0 Urine RBC (Auto) 0 06/01/20 20:00 Troponin I < 0.012 Impressions: Chest X-Ray 06/01/20 18:41 IMPRESSION: No acute pulmonary findings. Assessment & Plan - Diagnosis (1) Sickle cell pain crisis Is this a current diagnosis for this admission?: Yes Plan: Patient is admitted for management (2) Sickle cell anemia Qualifiers: Sickle-cell associated disorders: with unspecified crisis Qualified Code(s): D57.00 - Hb-SS disease with crisis, unspecified; D57.0 - Hb-SS disease with crisis Is this a current diagnosis for this admission?: Yes - Time Time Spent: Greater than 70 Minutes Medications reviewed and adjusted accordingly: Yes Anticipated Discharge Disposition: Home, Self Care Anticipated Discharge Timeframe: within 72 hours - Inpatient Certification Based on my medical assessment, after consideration of the patient's comorbidities, presenting symptoms, or acuity I expect that the services needed warrant INPATIENT care.: Yes I certify that my determination is in accordance with my understanding of Medicare's requirements for reasonable and necessary INPATIENT services [42 CFR 412.3e].: Yes
[2020-06-03] MEDS: HYDROMORPHONE HCL INJ/PF 2 MG/ML AMPULE IV PRN ×12 (00:24→23:22)
[2020-06-03] MEDS: DIPHENHYDRAMINE HCL 50 MG/ML VIAL IV PRN ×6 (00:24→21:15)
--- NOTE | 2020-06-03 08:40 | PDOC PROGRESS REPORT ---
Subjective Date:: 06/03/20 Subjective:: Patient reports that she had a bad night last night. Her pain has not improved. Nurses voice no new concerns this morning. Patient denies any constipation, nausea, dyspnea, or other new problems. Reason For Visit: CHILLS,SICKLE CELL PAIN CRISIS,SKIN RASH Physical Exam Vital Signs: Temp Pulse Resp BP Pulse Ox 98.4 F 71 16 97/55 L 98 06/03/20 02:00 06/03/20 02:00 06/03/20 02:00 06/03/20 02:00 06/02/20 23:30 Intake & Output 06/02/20 06/03/20 06/04/20 06:59 06:59 06:59 Intake Total 1260 2043 Output Total 1700 Balance 1260 343 Weight 60.1 kg 60.7 kg General appearance: PRESENT: no acute distress Head exam: PRESENT: normocephalic Eye exam: PRESENT: EOMI Respiratory exam: PRESENT: clear to auscultation carolyn, unlabored Cardiovascular exam: PRESENT: RRR Neurological exam: PRESENT: alert, awake, oriented to person, oriented to place, oriented to time, oriented to situation Psychiatric exam: PRESENT: appropriate affect Skin exam: PRESENT: normal color Results Laboratory Results: 06/01/20 20:00 06/01/20 20:00 06/01/20 20:00 Troponin I < 0.012 Impressions: Chest X-Ray 06/01/20 18:41 IMPRESSION: No acute pulmonary findings. Assessment & Plan - Diagnosis (1) Sickle cell pain crisis Is this a current diagnosis for this admission?: Yes Plan: Continue treatments without changes. Consider ECHO, due to patient's concern about increased swelling. Her Cr has been stable. (2) Iron overload due to repeated red blood cell transfusions Is this a current diagnosis for this admission?: Yes Plan: Receiving Jadenu. - Time Time Spent with patient: Less than 15 minutes
[2020-06-03] MEDS: FOLIC ACID 1 MG TABLET PO SCH (09:03)
[2020-06-03] MEDS: HYDROXYUREA 500 MG CAPSULE PO SCH ×2 (09:03→17:01)
[2020-06-03] MEDS: JADENU (DEFERASIROX) 360 MG TABLET PO SCH (09:03)
[2020-06-03] MEDS: ENOXAPARIN SODIUM INJ 40 MG/0.4 ML DISP.SYRIN SUBCUT SCH (09:03)
[2020-06-03] MEDS: 1/2 NORMAL SALINE 1,000 ML IV PRN (09:07)
[2020-06-03] MEDS: POTASSIUM CHLORIDE IV SCH ×5 (16:59)
[2020-06-03] MEDS: MAGNESIUM SULFATE IV SCH ×5 (16:59)
[2020-06-03] MEDS: [UNRECOGNIZED DRUG - OTHER] IV SCH ×5 (16:59)
[2020-06-03] MEDS: NORMAL SALINE IV SCH ×5 (16:59)
--- NOTE | 2020-06-03 22:07 | PDOC PROGRESS REPORT ---
Subjective Date:: 06/03/20 Subjective:: Patient seen by the bedside,complain of skin rash Reason For Visit: CHILLS,SICKLE CELL PAIN CRISIS,SKIN RASH Physical Exam Vital Signs: Temp Pulse Resp BP Pulse Ox 98.6 F 78 18 106/57 L 99 06/03/20 20:11 06/03/20 20:11 06/03/20 16:11 06/03/20 20:11 06/03/20 20:11 Intake & Output 06/02/20 06/03/20 06/04/20 06:59 06:59 06:59 Intake Total 1260 2043 2665.5 Output Total 1700 Balance 1636 297 6813.5 Weight 60.1 kg 60.7 kg General appearance: PRESENT: no acute distress Eye exam: PRESENT: PERRLA Respiratory exam: PRESENT: clear to auscultation carolyn Cardiovascular exam: PRESENT: +S1, +S2 GI/Abdominal exam: PRESENT: soft Neurological exam: PRESENT: alert, CN II-XII grossly intact Results Laboratory Results: 06/01/20 20:00 06/01/20 20:00 06/01/20 20:00 Troponin I < 0.012 Impressions: Chest X-Ray 06/01/20 18:41 IMPRESSION: No acute pulmonary findings. Assessment & Plan - Diagnosis (1) Sickle cell pain crisis Is this a current diagnosis for this admission?: Yes Plan: Continue treatment (2) Sickle cell anemia Qualifiers: Sickle-cell associated disorders: with unspecified crisis Qualified Code(s): D57.00 - Hb-SS disease with crisis, unspecified; D57.0 - Hb-SS disease with crisis Is this a current diagnosis for this admission?: Yes - Time Time Spent with patient: 35 or more minutes Level of Care: IMCU Medications reviewed and adjusted accordingly: Yes Anticipated discharge: Home Anticipated DC Timeframe: within 72 hours - Inpatient Certification Based on my medical assessment, after consideration of the patient's comorbi dities, presenting symptoms, or acuity I expect that the services needed warrant INPATIENT care.: Yes I certify that my determination is in accordance with my understanding of Medicare's requirements for reasonable and necessary INPATIENT services [42 CFR 412.3e].: Yes
[2020-06-04] MEDS: DIPHENHYDRAMINE HCL 50 MG/ML VIAL IV PRN ×5 (01:24→21:54)
[2020-06-04] MEDS: HYDROMORPHONE HCL INJ/PF 2 MG/ML AMPULE IV PRN ×10 (01:24→21:55)
[2020-06-04] MEDS: 1/2 NORMAL SALINE 1,000 ML IV PRN ×2 (01:25→09:45)
[2020-06-04] MEDS ORDERED: HYDROCORTISONE 1% CREAM 28.35 GM TP PRN (07:33)
[2020-06-04] MEDS: JADENU (DEFERASIROX) 360 MG TABLET PO SCH (08:16)
[2020-06-04] MEDS: EPOETIN ALFA-EPBX 40,000 UNIT/ML VIAL (NON-ESRD) IV SCH (08:17)
[2020-06-04 08:50] LABS: HEMATOCRIT 18.2 % (36.0-47.0); MEAN CORPUSCULAR HEMOGLOBIN 46.4 pg (27.0-33.4); MEAN CORPUSCULAR HGB CONC 35.4 g/dL (32.0-36.0); MEAN CORPUSCULAR VOLUME 131 fl (80-97); PLATELET COUNT 158 10^3/uL (150-450); RED BLOOD COUNT 1.39 10^6/uL (3.72-5.28); RED CELL DISTRIBUTION WIDTH 17.4 % (11.5-14.0)
[2020-06-04 08:56] LABS: ALBUMIN 3.7 g/dL (3.5-5.0); ALKALINE PHOSPHATASE 120 U/L (38-126); ASPARTATE AMINO TRANSFERASE 42 U/L (14-36); BILIRUBIN,DIRECT 0.2 mg/dL (0.0-0.4); BILIRUBIN,TOTAL 2.6 mg/dL (0.2-1.3); BLOOD UREA NITROGEN 10 mg/dL (7-20); CALCIUM 8.7 mg/dL (8.4-10.2); CARBON DIOXIDE 25 mmol/L (22-30); CHLORIDE 106 mmol/L (98-107); GLUCOSE 100 mg/dL (75-110); POTASSIUM 4.4 mmol/L (3.6-5.0); TOTAL PROTEIN 6.7 g/dL (6.3-8.2)
[2020-06-04 09:03] LABS: ANION GAP 3 (5-19)
[2020-06-04 09:19] LABS: ABSOLUTE LYMPHOCYTES# (MANUAL) 2.4 10^3/uL (0.5-4.7); ABSOLUTE MONOCYTES # (MANUAL) 0.1 10^3/uL (0.1-1.4); BASOPHILS % (MANUAL) 1 % (0-2); EOSINOPHILS % (MANUAL) 5 % (0-6); LYMPHOCYTES % (MANUAL) 59 % (13-45); METAMYELOCYTES % (MANUAL) 1 % (0-1); MONOCYTES % (MANUAL) 2 % (3-13); NUCLEATED RED BLOOD CELLS 12 /100 WBC (0); SEGMENTED NEUTROPHILS % (MAN) 31 % (42-78); TOTAL CELLS COUNTED 100
[2020-06-04 09:21] LABS: ANISOCYTOSIS 1+; OVALOCYTES 2+; PLATELET COMMENT ADEQUATE; POIKILOCYTOSIS 2+; TARGET CELLS 2+
[2020-06-04 09:22] LABS: POLYCHROMASIA 1+; SCHISTOCYTES 1+; TEAR DROP CELLS 2+
[2020-06-04 09:24] LABS: HEMOGLOBIN 6.4 g/dL (12.0-15.5)
[2020-06-04] MEDS: HYDROXYUREA 500 MG CAPSULE PO SCH ×2 (09:45→17:13)
[2020-06-04] MEDS: ENOXAPARIN SODIUM INJ 40 MG/0.4 ML DISP.SYRIN SUBCUT SCH (09:45)
[2020-06-04] MEDS: FOLIC ACID 1 MG TABLET PO SCH (09:45)
--- NOTE | 2020-06-04 12:14 | PDOC PROGRESS REPORT ---
Subjective Date:: 06/04/20 Subjective:: Patient states that she is still having considerable pain. No nausea or constip ation. She also has an itchy rash that the lotions are not helping. She is getting benadryl IV but this is not helping either. This started before she was admitted, so she does not believe the dilaudid is causing this. She was decently started on Oxbryta, which is a new medication for anemia. Reason For Visit: CHILLS,SICKLE CELL PAIN CRISIS,SKIN RASH Physical Exam Vital Signs: Temp Pulse Resp BP Pulse Ox 98.5 F 72 19 104/61 100 06/04/20 08:39 06/04/20 07:54 06/04/20 07:54 06/04/20 07:54 06/04/20 07:54 Intake & Output 06/03/20 06/04/20 06/05/20 06:59 06:59 06:59 Intake Total 2043 4181.0 1000 Output Total 1700 1000 Balance 343 3181.0 1000 Weight 60.7 kg 63.6 kg General appearance: PRESENT: no acute distress Head exam: PRESENT: normocephalic Eye exam: PRESENT: EOMI Respiratory exam: PRESENT: unlabored Extremities exam: ABSENT: pedal edema Neurological exam: PRESENT: alert, awake Psychiatric exam: PRESENT: appropriate affect Skin exam: PRESENT: normal color Results Laboratory Results: 06/04/20 08:00 06/04/20 08:00 06/04/20 06/04/20 08:00 08:00 WBC 4.0 RBC 1.39 L Hgb 6.4 L Hct 18.2 L MCV 131 H MCH 46.4 H MCHC 35.4 RDW 17.4 H Plt Count 158 Seg Neutrophils % Not Reportable Sodium 133.9 L Potassium 4.4 Chloride 106 Carbon Dioxide 25 Anion Gap 3 L BUN 10 Creatinine 0.55 Est GFR ( Amer) > 60 Glucose 100 Calcium 8.7 Total Bilirubin 2.6 H AST 42 H Alkaline Phosphatase 120 Total Protein 6.7 Albumin 3.7 06/01/20 20:00 Troponin I < 0.012 Impressions: Chest X-Ray 06/01/20 18:41 IMPRESSION: No acute pulmonary findings. Assessment & Plan - Diagnosis (1) Sickle cell pain crisis Is this a current diagnosis for this admission?: Yes Plan: I will increased her dilaudid to 3 mg q 2 hours. Continue all else the same. EPO q Wed. Continue Oxbryta, but if rash gets worse, consider holding this. (2) Iron overload due to repeated red blood cell transfusions Is this a current diagnosis for this admission?: Yes Plan: Continue Jadenu. - Time Time Spent with patient: Less than 15 minutes
[2020-06-04] MEDS: NORMAL SALINE IV SCH ×5 (17:14)
[2020-06-04] MEDS: POTASSIUM CHLORIDE IV SCH ×5 (17:14)
[2020-06-04] MEDS: MAGNESIUM SULFATE IV SCH ×5 (17:14)
[2020-06-04] MEDS: [UNRECOGNIZED DRUG - OTHER] IV SCH ×5 (17:14)
--- NOTE | 2020-06-04 19:36 | PDOC PROGRESS REPORT ---
Subjective Date:: 06/04/20 Subjective:: Patient seen by the bedside,complain of skin rash,she still complain of pain Reason For Visit: CHILLS,SICKLE CELL PAIN CRISIS,SKIN RASH Physical Exam Vital Signs: Temp Pulse Resp BP Pulse Ox 98.2 F 68 17 93/48 L 100 06/04/20 15:30 06/04/20 15:31 06/04/20 15:30 06/04/20 15:31 06/04/20 15:31 Intake & Output 06/03/20 06/04/20 06/05/20 06:59 06:59 06:59 Intake Total 2043 4181.0 2479 Output Total 1700 1000 Balance 343 3181.0 2479 Weight 60.7 kg 63.6 kg General appearance: PRESENT: no acute distress Eye exam: PRESENT: PERRLA Respiratory exam: PRESENT: clear to auscultation carolyn Cardiovascular exam: PRESENT: +S1, +S2 GI/Abdominal exam: PRESENT: soft Neurological exam: PRESENT: alert Results Laboratory Results: 06/04/20 08:00 06/04/20 08:00 06/04/20 06/04/20 08:00 08:00 WBC 4.0 RBC 1.39 L Hgb 6.4 L Hct 18.2 L MCV 131 H MCH 46.4 H MCHC 35.4 RDW 17.4 H Plt Count 158 Seg Neutrophils % Not Reportable Sodium 133.9 L Potassium 4.4 Chloride 106 Carbon Dioxide 25 Anion Gap 3 L BUN 10 Creatinine 0.55 Est GFR ( Amer) > 60 Glucose 100 Calcium 8.7 Total Bilirubin 2.6 H AST 42 H Alkaline Phosphatase 120 Total Protein 6.7 Albumin 3.7 06/01/20 20:00 Troponin I < 0.012 Impressions: Chest X-Ray 06/01/20 18:41 IMPRESSION: No acute pulmonary findings. Assessment & Plan - Diagnosis (1) Sickle cell pain crisis Is this a current diagnosis for this admission?: Yes Plan: Continue treatment (2) Sickle cell anemia Qualifiers: Sickle-cell associated disorders: with unspecified crisis Qualified Code(s): D57.00 - Hb-SS disease with crisis, unspecified; D57.0 - Hb-SS disease with crisis Is this a current diagnosis for this admission?: Yes - Time Time Spent with patient: 35 or more minutes Level of Care: MEDICAL Anticipated discharge: Home Anticipated DC Timeframe: within 72 hours - Inpatient Certification Based on my medical assessment, after consideration of the patient's comorbidities, presenting symptoms, or acuity I expect that the services needed warrant INPATIENT care.: Yes I certify that my determination is in accordance with my understanding of Medicare's requirements for reasonable and necessary INPATIENT services [42 CFR 412.3e].: Yes
[2020-06-05] MEDS: DIPHENHYDRAMINE HCL 50 MG/ML VIAL IV PRN ×5 (01:56→20:10)
[2020-06-05] MEDS: HYDROMORPHONE HCL INJ/PF 2 MG/ML AMPULE IV PRN ×11 (02:02→22:16)
[2020-06-05] MEDS: 1/2 NORMAL SALINE 1,000 ML IV PRN ×2 (02:42→11:49)
--- NOTE | 2020-06-05 08:19 | PDOC PROGRESS REPORT ---
Subjective Date:: 06/05/20 Subjective:: Still with considerable pain, not much change Reason For Visit: CHILLS,SICKLE CELL PAIN CRISIS,SKIN RASH Physical Exam Vital Signs: Temp Pulse Resp BP Pulse Ox 98.8 F 83 18 95/54 L 100 06/05/20 03:37 06/05/20 03:37 06/05/20 03:37 06/05/20 03:37 06/05/20 03:37 Intake & Output 06/04/20 06/05/20 06/06/20 06:59 06:59 06:59 Intake Total 4181.0 3494.5 Output Total 1000 600 Balance 3181.0 2894.5 Weight 63.6 kg 64.9 kg General appearance: PRESENT: no acute distress, well-developed, well-nourished Head exam: PRESENT: atraumatic, normocephalic Eye exam: PRESENT: conjunctiva pink, EOMI, PERRLA. ABSENT: scleral icterus Ear exam: PRESENT: normal external ear exam Mouth exam: PRESENT: moist, tongue midline Neck exam: ABSENT: carotid bruit, JVD, lymphadenopathy, thyromegaly Respiratory exam: PRESENT: clear to auscultation carolyn. ABSENT: rales, rhonchi, wheezes Cardiovascular exam: PRESENT: RRR. ABSENT: diastolic murmur, rubs, systolic murmur Pulses: PRESENT: normal dorsalis pedis pul Vascular exam: PRESENT: normal capillary refill GI/Abdominal exam: PRESENT: normal bowel sounds, soft. ABSENT: distended, guarding, mass, organolmegaly, rebound, tenderness Rectal exam: PRESENT: deferred Extremities exam: PRESENT: full ROM. ABSENT: calf tenderness, clubbing, pedal edema Neurological exam: PRESENT: alert, awake, oriented to person, oriented to place, oriented to time, oriented to situation, CN II-XII grossly intact. ABSENT: motor sensory deficit Psychiatric exam: PRESENT: appropriate affect, normal mood. ABSENT: homicidal ideation, suicidal ideation Skin exam: PRESENT: dry, intact, warm. ABSENT: cyanosis, rash Results Laboratory Results: 06/04/20 08:00 06/04/20 08:00 06/04/20 06/04/20 08:00 08:00 WBC 4.0 RBC 1.39 L Hgb 6.4 L Hct 18.2 L MCV 131 H MCH 46.4 H MCHC 35.4 RDW 17.4 H Plt Count 158 Seg Neutrophils % Not Reportable Sodium 133.9 L Potassium 4.4 Chloride 106 Carbon Dioxide 25 Anion Gap 3 L BUN 10 Creatinine 0.55 Est GFR ( Amer) > 60 Glucose 100 Calcium 8.7 Total Bilirubin 2.6 H AST 42 H Alkaline Phosphatase 120 Total Protein 6.7 Albumin 3.7 06/01/20 20:00 Troponin I < 0.012 Impressions: Chest X-Ray 06/01/20 18:41 IMPRESSION: No acute pulmonary findings. Assessment & Plan - Diagnosis (1) Sickle cell pain crisis Is this a current diagnosis for this admission?: Yes Plan: Continued severe crisis, continue with current pain regimen no changes today - Time Time Spent with patient: 15-24 minutes
[2020-06-05] MEDS: JADENU (DEFERASIROX) 360 MG TABLET PO SCH (08:25)
[2020-06-05] MEDS: FOLIC ACID 1 MG TABLET PO SCH (11:05)
[2020-06-05] MEDS: ENOXAPARIN SODIUM INJ 40 MG/0.4 ML DISP.SYRIN SUBCUT SCH (11:05)
[2020-06-05] MEDS: HYDROXYUREA 500 MG CAPSULE PO SCH ×2 (11:48→17:44)
[2020-06-05] MEDS: [UNRECOGNIZED DRUG - OTHER] IV SCH ×5 (17:44)
[2020-06-05] MEDS: MAGNESIUM SULFATE IV SCH ×5 (17:44)
[2020-06-05] MEDS: NORMAL SALINE IV SCH ×5 (17:44)
[2020-06-05] MEDS: POTASSIUM CHLORIDE IV SCH ×5 (17:44)
--- NOTE | 2020-06-05 23:03 | PDOC PROGRESS REPORT ---
Subjective Date:: 06/05/20 Subjective:: Patient complains of pain Reason For Visit: CHILLS,SICKLE CELL PAIN CRISIS,SKIN RASH Physical Exam Vital Signs: Temp Pulse Resp BP Pulse Ox 98.8 F 69 16 101/60 100 06/05/20 22:00 06/05/20 20:26 06/05/20 20:26 06/05/20 20:26 06/05/20 20:26 Intake & Output 06/04/20 06/05/20 06/06/20 06:59 06:59 06:59 Intake Total 4181.0 3494.5 1000 Output Total 1000 600 Balance 3181.0 2894.5 1000 Weight 63.6 kg 64.9 kg General appearance: PRESENT: no acute distress Eye exam: PRESENT: PERRLA Respiratory exam: PRESENT: clear to auscultation carolyn Cardiovascular exam: PRESENT: +S1, +S2 Results Laboratory Results: 06/04/20 08:00 06/04/20 08:00 06/01/20 20:00 Troponin I < 0.012 Impressions: Chest X-Ray 06/01/20 18:41 IMPRESSION: No acute pulmonary findings. Assessment & Plan - Diagnosis (1) Sickle cell pain crisis Is this a current diagnosis for this admission?: Yes Plan: Continue treatment (2) Sickle cell anemia Qualifiers: Sickle-cell associated disorders: with unspecified crisis Qualified Code(s): D57.00 - Hb-SS disease with crisis, unspecified; D57.0 - Hb-SS disease with crisis Is this a current diagnosis for this admission?: Yes - Time Time Spent with patient: 15-24 minutes Level of Care: MEDICAL Medications reviewed and adjusted accordingly: Yes Anticipated discharge: Home Anticipated DC Timeframe: Other
[2020-06-06] MEDS: HYDROMORPHONE HCL INJ/PF 2 MG/ML AMPULE IV PRN ×10 (00:20→22:39)
[2020-06-06] MEDS: DIPHENHYDRAMINE HCL 50 MG/ML VIAL IV PRN ×6 (00:20→22:40)
[2020-06-06] MEDS: 1/2 NORMAL SALINE 1,000 ML IV PRN ×2 (03:50→11:56)
[2020-06-06] MEDS: PROMETHAZINE HCL INJ 25 MG/1 ML VIAL IV PRN ×3 (03:58→20:21)
[2020-06-06] MEDS: JADENU (DEFERASIROX) 360 MG TABLET PO SCH (07:35)
--- NOTE | 2020-06-06 08:43 | PDOC PROGRESS REPORT ---
Subjective Date:: 06/06/20 Subjective:: Severe pain, continued Reason For Visit: CHILLS,SICKLE CELL PAIN CRISIS,SKIN RASH Physical Exam Vital Signs: Temp Pulse Resp BP Pulse Ox 98.9 F 81 16 96/50 L 100 06/06/20 04:00 06/06/20 00:00 06/06/20 00:00 06/06/20 00:00 06/06/20 00:00 Intake & Output 06/05/20 06/06/20 06/07/20 06:59 06:59 06:59 Intake Total 3494.5 3317.5 Output Total 600 Balance 2894.5 3317.5 Weight 64.9 kg 65.8 kg General appearance: PRESENT: no acute distress, well-developed, well-nourished Head exam: PRESENT: atraumatic, normocephalic Eye exam: PRESENT: conjunctiva pink, EOMI, PERRLA. ABSENT: scleral icterus Ear exam: PRESENT: normal external ear exam Mouth exam: PRESENT: moist, tongue midline Neck exam: ABSENT: carotid bruit, JVD, lymphadenopathy, thyromegaly Respiratory exam: PRESENT: clear to auscultation carolyn. ABSENT: rales, rhonchi, wheezes Cardiovascular exam: PRESENT: RRR. ABSENT: diastolic murmur, rubs, systolic murmur Pulses: PRESENT: normal dorsalis pedis pul Vascular exam: PRESENT: normal capillary refill GI/Abdominal exam: PRESENT: normal bowel sounds, soft. ABSENT: distended, guarding, mass, organolmegaly, rebound, tenderness Rectal exam: PRESENT: deferred Extremities exam: PRESENT: full ROM. ABSENT: calf tenderness, clubbing, pedal edema Neurological exam: PRESENT: alert, awake, oriented to person, oriented to place, oriented to time, oriented to situation, CN II-XII grossly intact. ABSENT: motor sensory deficit Psychiatric exam: PRESENT: appropriate affect, normal mood. ABSENT: homicidal ideation, suicidal ideation Skin exam: PRESENT: dry, intact, warm. ABSENT: cyanosis, rash Results Laboratory Results: 06/04/20 08:00 06/04/20 08:00 06/01/20 20:00 Troponin I < 0.012 Impressions: Chest X-Ray 06/01/20 18:41 IMPRESSION: No acute pulmonary findings. Assessment & Plan - Diagnosis (1) Sickle cell pain crisis Is this a current diagnosis for this admission?: Yes Plan: Continue with current therapy, cannot really decrease as of yet given her level of crisis - Time Time Spent with patient: 15-24 minutes
[2020-06-06] MEDS: HYDROXYUREA 500 MG CAPSULE PO SCH ×2 (09:42→18:08)
[2020-06-06] MEDS: FOLIC ACID 1 MG TABLET PO SCH (09:42)
[2020-06-06] MEDS: ENOXAPARIN SODIUM INJ 40 MG/0.4 ML DISP.SYRIN SUBCUT SCH (09:42)
[2020-06-06] MEDS: [UNRECOGNIZED DRUG - OTHER] IV SCH ×5 (18:10)
[2020-06-06] MEDS: MAGNESIUM SULFATE IV SCH ×5 (18:10)
[2020-06-06] MEDS: NORMAL SALINE IV SCH ×5 (18:10)
[2020-06-06] MEDS: POTASSIUM CHLORIDE IV SCH ×5 (18:10)
--- NOTE | 2020-06-06 23:05 | PDOC PROGRESS REPORT ---
Subjective Date:: 06/06/20 Subjective:: Patient complains of pain Reason For Visit: CHILLS,SICKLE CELL PAIN CRISIS,SKIN RASH Physical Exam Vital Signs: Temp Pulse Resp BP Pulse Ox 98.8 F 84 17 96/49 L 100 06/06/20 19:51 06/06/20 19:51 06/06/20 19:51 06/06/20 19:51 06/06/20 19:51 Intake & Output 06/05/20 06/06/20 06/07/20 06:59 06:59 06:59 Intake Total 3494.5 3317.5 2100 Output Total 600 Balance 2894.5 3317.5 2100 Weight 64.9 kg 65.8 kg General appearance: PRESENT: no acute distress Eye exam: PRESENT: PERRLA Respiratory exam: PRESENT: clear to auscultation carolyn Cardiovascular exam: PRESENT: +S1, +S2 GI/Abdominal exam: PRESENT: soft Neurological exam: PRESENT: alert Results Laboratory Results: 06/04/20 08:00 06/04/20 08:00 06/01/20 20:00 Troponin I < 0.012 Impressions: Chest X-Ray 06/01/20 18:41 IMPRESSION: No acute pulmonary findings. Assessment & Plan - Diagnosis (1) Sickle cell pain crisis Is this a current diagnosis for this admission?: Yes (2) Sickle cell anemia Qualifiers: Sickle-cell associated disorders: with unspecified crisis Qualified Code(s): D57.00 - Hb-SS disease with crisis, unspecified; D57.0 - Hb-SS disease with crisis Is this a current diagnosis for this admission?: Yes - Time Time Spent with patient: Less than 15 minutes Level of Care: MEDICAL Medications reviewed and adjusted accordingly: Yes Anticipated discharge: Home Anticipated DC Timeframe: within 72 hours
[2020-06-07] MEDS: HYDROMORPHONE HCL INJ/PF 2 MG/ML AMPULE IV PRN ×10 (00:51→21:01)
[2020-06-07] MEDS: DIPHENHYDRAMINE HCL 50 MG/ML VIAL IV PRN ×5 (03:21→21:01)
[2020-06-07] MEDS: PROMETHAZINE HCL INJ 25 MG/1 ML VIAL IV PRN ×5 (05:49→22:32)
[2020-06-07] MEDS: 1/2 NORMAL SALINE 1,000 ML IV PRN ×2 (05:49→13:51)
[2020-06-07] MEDS: FOLIC ACID 1 MG TABLET PO SCH (10:18)
[2020-06-07] MEDS: JADENU (DEFERASIROX) 360 MG TABLET PO SCH (10:18)
[2020-06-07] MEDS: HYDROXYUREA 500 MG CAPSULE PO SCH ×2 (10:19→17:22)
[2020-06-07] MEDS: ENOXAPARIN SODIUM INJ 40 MG/0.4 ML DISP.SYRIN SUBCUT SCH (10:19)
--- NOTE | 2020-06-07 11:05 | PDOC PROGRESS REPORT ---
Subjective Date:: 06/07/20 Subjective:: Seems a little bit better this morning Reason For Visit: CHILLS,SICKLE CELL PAIN CRISIS,SKIN RASH Physical Exam Vital Signs: Temp Pulse Resp BP Pulse Ox 98.3 F 83 18 97/51 L 100 06/07/20 08:28 06/07/20 08:00 06/07/20 08:00 06/07/20 08:00 06/07/20 08:00 Intake & Output 06/06/20 06/07/20 06/08/20 06:59 06:59 06:59 Intake Total 3317.5 5344.5 Output Total 4 Balance 3317.5 5340.5 Weight 65.8 kg 66.9 kg General appearance: PRESENT: no acute distress, well-developed, well-nourished Head exam: PRESENT: atraumatic, normocephalic Eye exam: PRESENT: conjunctiva pink, EOMI, PERRLA. ABSENT: scleral icterus Ear exam: PRESENT: normal external ear exam Mouth exam: PRESENT: moist, tongue midline Neck exam: ABSENT: carotid bruit, JVD, lymphadenopathy, thyromegaly Respiratory exam: PRESENT: clear to auscultation carolyn. ABSENT: rales, rhonchi, wheezes Cardiovascular exam: PRESENT: RRR. ABSENT: diastolic murmur, rubs, systolic murmur Pulses: PRESENT: normal dorsalis pedis pul Vascular exam: PRESENT: normal capillary refill GI/Abdominal exam: PRESENT: normal bowel sounds, soft. ABSENT: distended, guarding, mass, organolmegaly, rebound, tenderness Rectal exam: PRESENT: deferred Extremities exam: PRESENT: full ROM. ABSENT: calf tenderness, clubbing, pedal edema Neurological exam: PRESENT: alert, awake, oriented to person, oriented to place, oriented to time, oriented to situation, CN II-XII grossly intact. ABSENT: motor sensory deficit Psychiatric exam: PRESENT: appropriate affect, normal mood. ABSENT: homicidal ideation, suicidal ideation Skin exam: PRESENT: dry, intact, warm. ABSENT: cyanosis, rash Results Laboratory Results: 06/04/20 08:00 06/04/20 08:00 06/02/20 03:05 Blood Blood Culture - Final NO GROWTH IN 5 DAYS 06/02/20 00:32 Blood Blood Culture - Final NO GROWTH IN 5 DAYS 06/01/20 20:00 Troponin I < 0.012 Impressions: Chest X-Ray 06/01/20 18:41 IMPRESSION: No acute pulmonary findings. Assessment & Plan - Diagnosis (1) Sickle cell pain crisis Is this a current diagnosis for this admission?: Yes Plan: Continue current pain control, and other supportive measures - Time Time Spent with patient: 15-24 minutes
[2020-06-07] MEDS: MAGNESIUM SULFATE IV SCH ×5 (17:23)
[2020-06-07] MEDS: NORMAL SALINE IV SCH ×5 (17:23)
[2020-06-07] MEDS: [UNRECOGNIZED DRUG - OTHER] IV SCH ×5 (17:23)
[2020-06-07] MEDS: POTASSIUM CHLORIDE IV SCH ×5 (17:23)
--- NOTE | 2020-06-07 18:55 | PDOC PROGRESS REPORT ---
Subjective Date:: 06/07/20 Subjective:: Patient seen by the bedside, she said she cannot move her left shoulder, she has a history of chronic dislocation of the shoulder Reason For Visit: CHILLS,SICKLE CELL PAIN CRISIS,SKIN RASH Physical Exam Vital Signs: Temp Pulse Resp BP Pulse Ox 98.3 F 85 19 97/51 L 100 06/07/20 15:44 06/07/20 15:44 06/07/20 15:44 06/07/20 15:44 06/07/20 15:44 Intake & Output 06/06/20 06/07/20 06/08/20 06:59 06:59 06:59 Intake Total 3317.5 5344.5 1000 Output Total 4 Balance 3317.5 5340.5 1000 Weight 65.8 kg 66.9 kg General appearance: PRESENT: no acute distress Eye exam: PRESENT: PERRLA Respiratory exam: PRESENT: clear to auscultation carolyn Cardiovascular exam: PRESENT: +S1, +S2 Results Laboratory Results: 06/04/20 08:00 06/04/20 08:00 06/02/20 03:05 Blood Blood Culture - Final NO GROWTH IN 5 DAYS 06/02/20 00:32 Blood Blood Culture - Final NO GROWTH IN 5 DAYS 06/01/20 20:00 Troponin I < 0.012 Impressions: Chest X-Ray 06/01/20 18:41 IMPRESSION: No acute pulmonary findings. Assessment & Plan - Diagnosis (1) Sickle cell pain crisis Is this a current diagnosis for this admission?: Yes Plan: Continue current pain control, and other supportive measures (2) Sickle cell anemia Qualifiers: Sickle-cell associated disorders: with unspecified crisis Qualified Code(s): D57.00 - Hb-SS disease with crisis, unspecified; D57.0 - Hb-SS disease with crisis Is this a current diagnosis for this admission?: Yes (3) Pain in left shoulder Qualifiers: Chronicity: chronic Qualified Code(s): M25.512 - Pain in left shoulder; G89.29 - Other chronic pain Is this a current diagnosis for this admission?: Yes Plan: X-ray ordered - Time Time Spent with patient: 15-24 minutes Level of Care: TELE Medications reviewed and adjusted accordingly: Yes Anticipated discharge: Home
--- NOTE | 2020-06-07 19:33 | RADIOLOGY REPORT (SQ) ---
EXAM DESCRIPTION: SHOULDER LEFT 2 OR MORE VIEWS IMAGES COMPLETED DATE/TIME: 06/07/2020 7:22 pm REASON FOR STUDY: r/o dislocation COMPARISON: None. NUMBER OF VIEWS: Two views. TECHNIQUE: Frontal and lateral images acquired of the left shoulder. LIMITATIONS: None. FINDINGS: MINERALIZATION: Normal. BONES: No acute fracture. No worrisome bone lesions. JOINTS: No dislocation. VISUALIZED LUNGS AND RIBS: No pneumothorax. No rib fracture. SOFT TISSUES: No radiopaque foreign body. OTHER: No other significant finding. IMPRESSION: NEGATIVE STUDY OF THE LEFT SHOULDER. NO RADIOGRAPHIC EVIDENCE OF ACUTE INJURY. TECHNICAL DOCUMENTATION: JOB ID: [id number] 2010 [employer]- All Rights Reserved Reading location - IP/workstation name: [email or web address]
[2020-06-08] MEDS: HYDROMORPHONE HCL INJ/PF 2 MG/ML AMPULE IV PRN ×9 (00:15→20:25)
[2020-06-08] MEDS: DIPHENHYDRAMINE HCL 50 MG/ML VIAL IV PRN ×5 (02:40→22:02)
[2020-06-08] MEDS: PROMETHAZINE HCL INJ 25 MG/1 ML VIAL IV PRN ×4 (05:07→20:32)
[2020-06-08] MEDS: 1/2 NORMAL SALINE 1,000 ML IV PRN ×2 (08:22→20:43)
[2020-06-08] MEDS: JADENU (DEFERASIROX) 360 MG TABLET PO SCH (08:28)
[2020-06-08] MEDS: ENOXAPARIN SODIUM INJ 40 MG/0.4 ML DISP.SYRIN SUBCUT SCH (10:14)
[2020-06-08] MEDS: HYDROXYUREA 500 MG CAPSULE PO SCH ×2 (10:14→17:02)
[2020-06-08] MEDS: FOLIC ACID 1 MG TABLET PO SCH (10:15)
[2020-06-08] MEDS: [UNRECOGNIZED DRUG - OTHER] IV SCH ×5 (17:02)
[2020-06-08] MEDS: MAGNESIUM SULFATE IV SCH ×5 (17:02)
[2020-06-08] MEDS: NORMAL SALINE IV SCH ×5 (17:02)
[2020-06-08] MEDS: POTASSIUM CHLORIDE IV SCH ×5 (17:02)
--- NOTE | 2020-06-08 19:27 | PDOC PROGRESS REPORT ---
Subjective Date:: 06/08/20 Subjective:: Patient seen by the bedside, she said she cannot move her left shoulder, she has a history of chronic dislocation of the shoulder,x-ray of the shoulder was negative Reason For Visit: CHILLS,SICKLE CELL PAIN CRISIS,SKIN RASH Physical Exam Vital Signs: Temp Pulse Resp BP Pulse Ox 98.2 F 88 20 100/62 98 06/08/20 16:18 06/08/20 16:18 06/08/20 16:18 06/08/20 16:18 06/08/20 16:18 Intake & Output 06/07/20 06/08/20 06/09/20 06:59 06:59 06:59 Intake Total 5344.5 2150 1395.5 Output Total 4 Balance 5340.5 2150 1395.5 Weight 66.9 kg 67.6 kg General appearance: PRESENT: no acute distress Eye exam: PRESENT: PERRLA Respiratory exam: PRESENT: clear to auscultation carolyn Cardiovascular exam: PRESENT: +S1, +S2 Results Laboratory Results: 06/04/20 08:00 06/04/20 08:00 06/01/20 20:00 Troponin I < 0.012 Impressions: Chest X-Ray 06/01/20 18:41 IMPRESSION: No acute pulmonary findings. Shoulder X-Ray 06/07/20 00:00 IMPRESSION: NEGATIVE STUDY OF THE LEFT SHOULDER. NO RADIOGRAPHIC EVIDENCE OF ACUTE INJURY. Assessment & Plan - Diagnosis (1) Sickle cell pain crisis Is this a current diagnosis for this admission?: Yes Plan: Continue current pain control, and other supportive measures (2) Sickle cell anemia Qualifiers: Sickle-cell associated disorders: with unspecified crisis Qualified Code(s): D57.00 - Hb-SS disease with crisis, unspecified; D57.0 - Hb-SS disease with crisis Is this a current diagnosis for this admission?: Yes (3) Pain in left shoulder Qualifiers: Chronicity: chronic Qualified Code(s): M25.512 - Pain in left shoulder; G89.29 - Other chronic pain Is this a current diagnosis for this admission?: Yes - Time Time Spent with patient: 15-24 minutes Level of Care: MEDICAL Anticipated discharge: Home
[2020-06-09] MEDS: PROMETHAZINE HCL INJ 25 MG/1 ML VIAL IV PRN ×5 (00:47→19:31)
[2020-06-09] MEDS: HYDROMORPHONE HCL INJ/PF 2 MG/ML AMPULE IV PRN ×10 (00:47→22:37)
[2020-06-09] MEDS: DIPHENHYDRAMINE HCL 50 MG/ML VIAL IV PRN ×5 (03:23→22:37)
[2020-06-09] MEDS: JADENU (DEFERASIROX) 360 MG TABLET PO SCH (07:45)
--- NOTE | 2020-06-09 07:58 | PDOC PROGRESS REPORT ---
Subjective Date:: 06/09/20 Subjective:: Still having a lot of pain this morning. Reason For Visit: CHILLS,SICKLE CELL PAIN CRISIS,SKIN RASH Physical Exam Vital Signs: Temp Pulse Resp BP Pulse Ox 99.1 F 91 22 H 100/60 94 06/09/20 07:14 06/09/20 05:01 06/09/20 05:01 06/09/20 05:01 06/09/20 05:01 Intake & Output 06/08/20 06/09/20 06/10/20 06:59 06:59 06:59 Intake Total 2150 3115.5 1015.5 Output Total 1550 Balance 2150 1565.5 1015.5 Weight 67.6 kg 69.9 kg General appearance: PRESENT: no acute distress, well-developed, well-nourished Head exam: PRESENT: atraumatic, normocephalic Eye exam: PRESENT: conjunctiva pink, EOMI, PERRLA. ABSENT: scleral icterus Ear exam: PRESENT: normal external ear exam Mouth exam: PRESENT: moist, tongue midline Neck exam: ABSENT: carotid bruit, JVD, lymphadenopathy, thyromegaly Respiratory exam: PRESENT: clear to auscultation carolyn. ABSENT: rales, rhonchi, wheezes Cardiovascular exam: PRESENT: RRR. ABSENT: diastolic murmur, rubs, systolic murmur Pulses: PRESENT: normal dorsalis pedis pul Vascular exam: PRESENT: normal capillary refill GI/Abdominal exam: PRESENT: normal bowel sounds, soft. ABSENT: distended, guarding, mass, organolmegaly, rebound, tenderness Rectal exam: PRESENT: deferred Extremities exam: PRESENT: full ROM. ABSENT: calf tenderness, clubbing, pedal edema Neurological exam: PRESENT: alert, awake, oriented to person, oriented to place, oriented to time, oriented to situation, CN II-XII grossly intact. ABSENT: motor sensory deficit Psychiatric exam: PRESENT: appropriate affect, normal mood. ABSENT: homicidal ideation, suicidal ideation Skin exam: PRESENT: dry, intact, warm. ABSENT: cyanosis, rash Results Laboratory Results: 06/04/20 08:00 06/04/20 08:00 06/01/20 20:00 Troponin I < 0.012 Impressions: Chest X-Ray 06/01/20 18:41 IMPRESSION: No acute pulmonary findings. Shoulder X-Ray 06/07/20 00:00 IMPRESSION: NEGATIVE STUDY OF THE LEFT SHOULDER. NO RADIOGRAPHIC EVIDENCE OF ACUTE INJURY. Assessment & Plan - Diagnosis (1) Sickle cell pain crisis Is this a current diagnosis for this admission?: Yes Plan: Continue with current pain regimen, cannot reduce yet because of the severe pain. - Time Time Spent with patient: 35 or more minutes
[2020-06-09] MEDS: HYDROXYUREA 500 MG CAPSULE PO SCH ×2 (09:47→17:00)
[2020-06-09] MEDS: ENOXAPARIN SODIUM INJ 40 MG/0.4 ML DISP.SYRIN SUBCUT SCH (09:47)
[2020-06-09] MEDS: FOLIC ACID 1 MG TABLET PO SCH (09:47)
[2020-06-09] MEDS: [UNRECOGNIZED DRUG - OTHER] IV SCH ×5 (17:00)
[2020-06-09] MEDS: POTASSIUM CHLORIDE IV SCH ×5 (17:00)
[2020-06-09] MEDS: NORMAL SALINE IV SCH ×5 (17:00)
[2020-06-09] MEDS: MAGNESIUM SULFATE IV SCH ×5 (17:00)
[2020-06-09] MEDS: 1/2 NORMAL SALINE 1,000 ML IV PRN (19:33)
--- NOTE | 2020-06-09 21:27 | PDOC PROGRESS REPORT ---
Subjective Date:: 06/09/20 Subjective:: Patient still complains of pain Reason For Visit: CHILLS,SICKLE CELL PAIN CRISIS,SKIN RASH Physical Exam Vital Signs: Temp Pulse Resp BP Pulse Ox 98.8 F 83 19 92/48 L 97 06/09/20 19:42 06/09/20 19:42 06/09/20 19:42 06/09/20 19:42 06/09/20 19:42 Intake & Output 06/08/20 06/09/20 06/10/20 06:59 06:59 06:59 Intake Total 2150 4115.5 2455.5 Output Total 1550 3600 Balance 2150 2565.5 -1144.5 Weight 67.6 kg 69.9 kg 69.9 kg General appearance: PRESENT: no acute distress Eye exam: PRESENT: PERRLA Respiratory exam: PRESENT: clear to auscultation carolyn Cardiovascular exam: PRESENT: +S1, +S2 Results Laboratory Results: 06/04/20 08:00 06/04/20 08:00 06/01/20 20:00 Troponin I < 0.012 Impressions: Chest X-Ray 06/01/20 18:41 IMPRESSION: No acute pulmonary findings. Shoulder X-Ray 06/07/20 00:00 IMPRESSION: NEGATIVE STUDY OF THE LEFT SHOULDER. NO RADIOGRAPHIC EVIDENCE OF ACUTE INJURY. Assessment & Plan - Diagnosis (1) Sickle cell pain crisis Is this a current diagnosis for this admission?: Yes Plan: .Continue treatment (2) Sickle cell anemia Qualifiers: Sickle-cell associated disorders: with unspecified crisis Qualified Code(s): D57.00 - Hb-SS disease with crisis, unspecified; D57.0 - Hb-SS disease with crisis Is this a current diagnosis for this admission?: Yes (3) Pain in left shoulder Qualifiers: Chronicity: chronic Qualified Code(s): M25.512 - Pain in left shoulder; G89.29 - Other chronic pain Is this a current diagnosis for this admission?: Yes - Time Time Spent with patient: 15-24 minutes Level of Care: MEDICAL Medications reviewed and adjusted accordingly: Yes Anticipated discharge: Home
[2020-06-10] MEDS: PROMETHAZINE HCL INJ 25 MG/1 ML VIAL IV PRN ×5 (01:20→19:19)
[2020-06-10] MEDS: HYDROMORPHONE HCL INJ/PF 2 MG/ML AMPULE IV PRN ×10 (01:20→21:57)
[2020-06-10] MEDS: DIPHENHYDRAMINE HCL 50 MG/ML VIAL IV PRN ×5 (03:49→21:57)
[2020-06-10] MEDS: JADENU (DEFERASIROX) 360 MG TABLET PO SCH (08:00)
--- NOTE | 2020-06-10 08:07 | PDOC PROGRESS REPORT ---
Subjective Date:: 06/10/20 Subjective:: Patient having still a lot of pain. She tells me that her primary physician was planning on getting an orthopedic consult. Reason For Visit: CHILLS,SICKLE CELL PAIN CRISIS,SKIN RASH Physical Exam Vital Signs: Temp Pulse Resp BP Pulse Ox 98.6 F 87 18 109/62 98 06/10/20 03:26 06/10/20 03:26 06/10/20 03:26 06/10/20 03:26 06/10/20 03:26 Intake & Output 06/09/20 06/10/20 06/11/20 06:59 06:59 06:59 Intake Total 4115.5 2455.5 Output Total 1550 5250 Balance 2565.5 -2794.5 Weight 69.9 kg 67.5 kg General appearance: PRESENT: no acute distress, well-developed, well-nourished Head exam: PRESENT: atraumatic, normocephalic Eye exam: PRESENT: conjunctiva pink, EOMI, PERRLA. ABSENT: scleral icterus Ear exam: PRESENT: normal external ear exam Mouth exam: PRESENT: moist, tongue midline Neck exam: ABSENT: carotid bruit, JVD, lymphadenopathy, thyromegaly Respiratory exam: PRESENT: clear to auscultation carolyn. ABSENT: rales, rhonchi, wheezes Cardiovascular exam: PRESENT: RRR. ABSENT: diastolic murmur, rubs, systolic murmur Pulses: PRESENT: normal dorsalis pedis pul Vascular exam: PRESENT: normal capillary refill GI/Abdominal exam: PRESENT: normal bowel sounds, soft. ABSENT: distended, guarding, mass, organolmegaly, rebound, tenderness Rectal exam: PRESENT: deferred Extremities exam: PRESENT: full ROM. ABSENT: calf tenderness, clubbing, pedal edema Neurological exam: PRESENT: alert, awake, oriented to person, oriented to place, oriented to time, oriented to situation, CN II-XII grossly intact. ABSENT: motor sensory deficit Psychiatric exam: PRESENT: appropriate affect, normal mood. ABSENT: homicidal ideation, suicidal ideation Skin exam: PRESENT: dry, intact, warm. ABSENT: cyanosis, rash Results Laboratory Results: 06/04/20 08:00 06/04/20 08:00 06/01/20 20:00 Troponin I < 0.012 Impressions: Chest X-Ray 06/01/20 18:41 IMPRESSION: No acute pulmonary findings. Shoulder X-Ray 06/07/20 00:00 IMPRESSION: NEGATIVE STUDY OF THE LEFT SHOULDER. NO RADIOGRAPHIC EVIDENCE OF ACUTE INJURY. Assessment & Plan - Diagnosis (1) Sickle cell pain crisis Is this a current diagnosis for this admission?: Yes Plan: Continue current regimen, pain is still severe. Unsure of when she could taper. - Time Time Spent with patient: 35 or more minutes
[2020-06-10] MEDS: 1/2 NORMAL SALINE 1,000 ML IV PRN (09:07)
[2020-06-10] MEDS: ENOXAPARIN SODIUM INJ 40 MG/0.4 ML DISP.SYRIN SUBCUT SCH (09:08)
[2020-06-10] MEDS: FOLIC ACID 1 MG TABLET PO SCH (09:08)
[2020-06-10] MEDS: HYDROXYUREA 500 MG CAPSULE PO SCH ×2 (09:08→17:01)
[2020-06-10] MEDS: [UNRECOGNIZED DRUG - OTHER] IV SCH ×5 (17:01)
[2020-06-10] MEDS: NORMAL SALINE IV SCH ×5 (17:01)
[2020-06-10] MEDS: MAGNESIUM SULFATE IV SCH ×5 (17:01)
[2020-06-10] MEDS: POTASSIUM CHLORIDE IV SCH ×5 (17:01)
--- NOTE | 2020-06-10 20:47 | PDOC PROGRESS REPORT ---
Subjective Date:: 06/10/20 Subjective:: She continues to complain of subjective pain difficult to tell how severe this pain is in this patient Reason For Visit: CHILLS,SICKLE CELL PAIN CRISIS,SKIN RASH Physical Exam Vital Signs: Temp Pulse Resp BP Pulse Ox 98.8 F 91 18 100/60 99 06/10/20 15:19 06/10/20 15:19 06/10/20 15:19 06/10/20 15:19 06/10/20 15:19 Intake & Output 06/09/20 06/10/20 06/11/20 06:59 06:59 06:59 Intake Total 4115.5 4471.0 1180 Output Total 1550 5250 800 Balance 2565.5 -779.0 380 Weight 69.9 kg 67.5 kg General appearance: PRESENT: no acute distress Eye exam: PRESENT: PERRLA Respiratory exam: PRESENT: clear to auscultation carolyn Cardiovascular exam: PRESENT: +S1, +S2 Results Laboratory Results: 06/04/20 08:00 06/04/20 08:00 06/01/20 20:00 Troponin I < 0.012 Impressions: Chest X-Ray 06/01/20 18:41 IMPRESSION: No acute pulmonary findings. Shoulder X-Ray 06/07/20 00:00 IMPRESSION: NEGATIVE STUDY OF THE LEFT SHOULDER. NO RADIOGRAPHIC EVIDENCE OF ACUTE INJURY. Assessment & Plan - Diagnosis (1) Sickle cell pain crisis Is this a current diagnosis for this admission?: Yes Plan: Continue treatment (2) Sickle cell anemia Qualifiers: Sickle-cell associated disorders: with unspecified crisis Qualified Code(s): D57.00 - Hb-SS disease with crisis, unspecified; D57.0 - Hb-SS disease with crisis Is this a current diagnosis for this admission?: Yes (3) Pain in left shoulder Qualifiers: Chronicity: chronic Qualified Code(s): M25.512 - Pain in left shoulder; G89.29 - Other chronic pain Is this a current diagnosis for this admission?: Yes - Time Time Spent with patient: 25-34 minutes Level of Care: MEDICAL Medications reviewed and adjusted accordingly: Yes Anticipated discharge: Home - Inpatient Certification Based on my medical assessment, after consideration of the patient's comorbidities, presenting symptoms, or acuity I expect that the services needed warrant INPATIENT care.: Yes I certify that my determination is in accordance with my understanding of Medicare's requirements for reasonable and necessary INPATIENT services [42 CFR 412.3e].: Yes
[2020-06-11] MEDS: PROMETHAZINE HCL INJ 25 MG/1 ML VIAL IV PRN ×5 (00:18→20:33)
[2020-06-11] MEDS: HYDROMORPHONE HCL INJ/PF 2 MG/ML AMPULE IV PRN ×10 (00:18→23:04)
[2020-06-11] MEDS: DIPHENHYDRAMINE HCL 50 MG/ML VIAL IV PRN ×5 (03:23→23:06)
[2020-06-11] MEDS: 1/2 NORMAL SALINE 1,000 ML IV PRN ×2 (03:25→12:05)
--- NOTE | 2020-06-11 07:35 | PDOC PROGRESS REPORT ---
Subjective Date:: 06/11/20 Subjective:: Still w/ considerable pain, can't move L arm much without severe pain that makes her cry Reason For Visit: CHILLS,SICKLE CELL PAIN CRISIS,SKIN RASH Physical Exam Vital Signs: Temp Pulse Resp BP Pulse Ox 98.3 F 73 18 107/58 L 97 06/11/20 05:13 06/11/20 05:13 06/11/20 05:13 06/11/20 05:13 06/11/20 05:13 Intake & Output 06/10/20 06/11/20 06/12/20 06:59 06:59 06:59 Intake Total 4471.0 2180 Output Total 5250 1750 Balance -779.0 430 Weight 67.5 kg 67.3 kg General appearance: PRESENT: no acute distress, well-developed, well-nourished Head exam: PRESENT: atraumatic, normocephalic Eye exam: PRESENT: conjunctiva pink, EOMI, PERRLA. ABSENT: scleral icterus Ear exam: PRESENT: normal external ear exam Mouth exam: PRESENT: moist, tongue midline Neck exam: ABSENT: carotid bruit, JVD, lymphadenopathy, thyromegaly Respiratory exam: PRESENT: clear to auscultation carolyn. ABSENT: rales, rhonchi, wheezes Cardiovascular exam: PRESENT: RRR. ABSENT: diastolic murmur, rubs, systolic murmur Pulses: PRESENT: normal dorsalis pedis pul Vascular exam: PRESENT: normal capillary refill GI/Abdominal exam: PRESENT: normal bowel sounds, soft. ABSENT: distended, guarding, mass, organolmegaly, rebound, tenderness Rectal exam: PRESENT: deferred Extremities exam: PRESENT: full ROM. ABSENT: calf tenderness, clubbing, pedal edema Neurological exam: PRESENT: alert, awake, oriented to person, oriented to place, oriented to time, oriented to situation, CN II-XII grossly intact. ABSENT: motor sensory deficit Psychiatric exam: PRESENT: appropriate affect, normal mood. ABSENT: homicidal ideation, suicidal ideation Skin exam: PRESENT: dry, intact, warm. ABSENT: cyanosis, rash Results Laboratory Results: 06/04/20 08:00 06/04/20 08:00 06/01/20 20:00 Troponin I < 0.012 Impressions: Chest X-Ray 06/01/20 18:41 IMPRESSION: No acute pulmonary findings. Shoulder X-Ray 06/07/20 00:00 IMPRESSION: NEGATIVE STUDY OF THE LEFT SHOULDER. NO RADIOGRAPHIC EVIDENCE OF ACUTE INJURY. Assessment & Plan - Diagnosis (1) Sickle cell pain crisis Is this a current diagnosis for this admission?: Yes Plan: Cont current regimen, don't see how we can stop the pain meds as of now. - Time Time Spent with patient: 15-24 minutes
[2020-06-11] MEDS: JADENU (DEFERASIROX) 360 MG TABLET PO SCH (08:31)
[2020-06-11] MEDS: HYDROXYUREA 500 MG CAPSULE PO SCH ×2 (12:07→17:58)
[2020-06-11] MEDS: FOLIC ACID 1 MG TABLET PO SCH (12:07)
[2020-06-11] MEDS: ENOXAPARIN SODIUM INJ 40 MG/0.4 ML DISP.SYRIN SUBCUT SCH (12:08)
[2020-06-11] MEDS: EPOETIN ALFA-EPBX 40,000 UNIT/ML VIAL (NON-ESRD) IV SCH (12:08)
[2020-06-11] MEDS: [UNRECOGNIZED DRUG - OTHER] IV SCH ×5 (17:57)
[2020-06-11] MEDS: NORMAL SALINE IV SCH ×5 (17:57)
[2020-06-11] MEDS: MAGNESIUM SULFATE IV SCH ×5 (17:57)
[2020-06-11] MEDS: POTASSIUM CHLORIDE IV SCH ×5 (17:57)
--- NOTE | 2020-06-11 20:58 | PDOC PROGRESS REPORT ---
Subjective Date:: 06/11/20 Subjective:: She complains of pain in both shoulders, x-ray was negative, we will request MRI to rule out bone infarct versus ligament tear or other causes Reason For Visit: CHILLS,SICKLE CELL PAIN CRISIS,SKIN RASH Physical Exam Vital Signs: Temp Pulse Resp BP Pulse Ox 98.4 F 84 16 98/48 L 100 06/11/20 20:53 06/11/20 17:25 06/11/20 17:25 06/11/20 17:25 06/11/20 17:25 Intake & Output 06/10/20 06/11/20 06/12/20 06:59 06:59 06:59 Intake Total 4471.0 3195.5 1797 Output Total 5250 1750 Balance -779.0 1445.5 1797 Weight 67.5 kg 67.3 kg General appearance: PRESENT: no acute distress Eye exam: PRESENT: PERRLA Respiratory exam: PRESENT: clear to auscultation carolyn Cardiovascular exam: PRESENT: +S1, +S2 Neurological exam: PRESENT: alert Results Laboratory Results: 06/04/20 08:00 06/04/20 08:00 06/01/20 20:00 Troponin I < 0.012 Impressions: Chest X-Ray 06/01/20 18:41 IMPRESSION: No acute pulmonary findings. Shoulder X-Ray 06/07/20 00:00 IMPRESSION: NEGATIVE STUDY OF THE LEFT SHOULDER. NO RADIOGRAPHIC EVIDENCE OF ACUTE INJURY. Assessment & Plan - Diagnosis (1) Sickle cell pain crisis Is this a current diagnosis for this admission?: Yes (2) Sickle cell anemia Qualifiers: Sickle-cell associated disorders: with unspecified crisis Qualified Code(s): D57.00 - Hb-SS disease with crisis, unspecified; D57.0 - Hb-SS disease with crisis Is this a current diagnosis for this admission?: Yes (3) Pain in left shoulder Qualifiers: Chronicity: chronic Qualified Code(s): M25.512 - Pain in left shoulder; G89.29 - Other chronic pain Is this a current diagnosis for this admission?: Yes - Time Time Spent with patient: 15-24 minutes Level of Care: MEDICAL Medications reviewed and adjusted accordingly: Yes Anticipated discharge: Home Anticipated DC Timeframe: within 72 hours
[2020-06-12] MEDS: HYDROMORPHONE HCL INJ/PF 2 MG/ML AMPULE IV PRN ×10 (01:37→22:23)
[2020-06-12] MEDS: PROMETHAZINE HCL INJ 25 MG/1 ML VIAL IV PRN ×5 (01:38→20:16)
[2020-06-12] MEDS: DIPHENHYDRAMINE HCL 50 MG/ML VIAL IV PRN ×5 (04:08→22:23)
--- NOTE | 2020-06-12 10:00 | PDOC PROGRESS REPORT ---
Subjective Date:: 06/12/20 Subjective:: Patient went down for left upper extremity MRI, results are pending Reason For Visit: CHILLS,SICKLE CELL PAIN CRISIS,SKIN RASH Physical Exam Vital Signs: Temp Pulse Resp BP Pulse Ox 98.3 F 86 18 100/63 96 06/11/20 23:42 06/11/20 23:42 06/11/20 23:42 06/11/20 23:42 06/11/20 23:42 Intake & Output 06/11/20 06/12/20 06/13/20 06:59 06:59 06:59 Intake Total 3195.5 2767 Output Total 1750 2400 Balance 1445.5 367 Weight 67.3 kg 66.2 kg General appearance: PRESENT: no acute distress, well-developed, well-nourished Head exam: PRESENT: atraumatic, normocephalic Eye exam: PRESENT: conjunctiva pink, EOMI, PERRLA. ABSENT: scleral icterus Ear exam: PRESENT: normal external ear exam Mouth exam: PRESENT: moist, tongue midline Neck exam: ABSENT: carotid bruit, JVD, lymphadenopathy, thyromegaly Respiratory exam: PRESENT: clear to auscultation carolyn. ABSENT: rales, rhonchi, wheezes Cardiovascular exam: PRESENT: RRR. ABSENT: diastolic murmur, rubs, systolic murmur Pulses: PRESENT: normal dorsalis pedis pul Vascular exam: PRESENT: normal capillary refill GI/Abdominal exam: PRESENT: normal bowel sounds, soft. ABSENT: distended, guarding, mass, organolmegaly, rebound, tenderness Rectal exam: PRESENT: deferred Extremities exam: PRESENT: full ROM. ABSENT: calf tenderness, clubbing, pedal edema Neurological exam: PRESENT: alert, awake, oriented to person, oriented to place, oriented to time, oriented to situation, CN II-XII grossly intact. ABSENT: motor sensory deficit Psychiatric exam: PRESENT: appropriate affect, normal mood. ABSENT: homicidal ideation, suicidal ideation Skin exam: PRESENT: dry, intact, warm. ABSENT: cyanosis, rash Results Laboratory Results: 06/04/20 08:00 06/04/20 08:00 06/01/20 20:00 Troponin I < 0.012 Impressions: Chest X-Ray 06/01/20 18:41 IMPRESSION: No acute pulmonary findings. Shoulder X-Ray 06/07/20 00:00 IMPRESSION: NEGATIVE STUDY OF THE LEFT SHOULDER. NO RADIOGRAPHIC EVIDENCE OF ACUTE INJURY. Assessment & Plan - Diagnosis (1) Sickle cell pain crisis Is this a current diagnosis for this admission?: Yes Plan: Continue with current pain regimen, most of the pain is in the left arm and there appears to be something going on there may be some sort of dislocation or possible fracture. Awaiting MRI results. Continue current pain regimen. - Time Time Spent with patient: 35 or more minutes
[2020-06-12] MEDS: 1/2 NORMAL SALINE 1,000 ML IV PRN (10:13)
[2020-06-12] MEDS: HYDROXYUREA 500 MG CAPSULE PO SCH ×2 (11:05→18:18)
[2020-06-12] MEDS: ENOXAPARIN SODIUM INJ 40 MG/0.4 ML DISP.SYRIN SUBCUT SCH (11:05)
[2020-06-12] MEDS: FOLIC ACID 1 MG TABLET PO SCH (11:05)
--- NOTE | 2020-06-12 11:52 | RADIOLOGY REPORT (SQ) ---
EXAM DESCRIPTION: MRI RT UPPER JOINT WITHOUT IMAGES COMPLETED DATE/TIME: 06/12/2020 9:12 am REASON FOR STUDY: bilateral shoulder pain radiating down the arms for 3 days. Stiffness, weakness, decreased range of motion. Sickle cell. COMPARISON: MRI right shoulder, 12/12/2019. Right shoulder radiograph 12/08/2019. TECHNIQUE: Right shoulder images acquired and stored on PACS. Multiplanar imaging to include fat sen sitive sequences such as T1, water sensitive sequences such as FST2/STIR, cartilage sensitive sequenc es such as FSPD/gradient-echo sequences. LIMITATIONS: Motion obscures some detail. FINDINGS: BONE MARROW AND CORTEX: Heterogeneous bone marrow signal is again demonstrated similar in appearance to previous examination. Subchondral cystic change at the far lateral humeral head. No a cute fracture. JOINT OR BURSAL EFFUSION: No significant joint effusion. Small amount of fluid in the subacromion bu rsa. GLENO-HUMERAL ARTICULATION: Normal articulation. No subluxation. No cystic change. No osteophytes or cartilage loss. ACROMION AND AC JOINT: No down-sloping or distal spur. Sub-acromial space maintained. No significa nt AC joint arthropathy. ROTATOR CUFF AND INTERVAL: Have normal signal articular surface supraspinatus tendon suggestive of pa rtial tear, similar in appearance to previous examination. Infraspinatus, subscapularis and teres mi nor tendons are intact. No rotator interval thickening to suggest adhesive capsulitis. LABRUM AND BICEPS LABRAL COMPLEX: Poor evaluation of the labrum secondary to motion and lack of int ra-articular contrast. REMAINDER OF LABRUM AND IGHL : No definite paralabral cyst. Labral evaluation is suboptimal. PERIARTICULAR AND ADJACENT SOFT TISSUES: No masses or abnormal nodes. OTHER: No other significant finding. IMPRESSION: 1. Since the previous examination performed 12/12/2019, there has been no significant interval change. Partial thickness articular surface tear supraspinatus tendon similar in appearance to previous. 2. Subacromial/subdeltoid bursitis. 3. Heterogeneous bone marrow signal suggestive of reactivated bone marrow. This is probably secondar y to patient's history of sickle cell anemia. TECHNICAL DOCUMENTATION: JOB ID: [id number] [employer]- All Rights Reserved Reading location - IP/workstation name: [email or web address]
[2020-06-12] MEDS: JADENU (DEFERASIROX) 360 MG TABLET PO SCH (12:00)
--- NOTE | 2020-06-12 12:49 | RADIOLOGY REPORT (SQ) ---
EXAM DESCRIPTION: MRI LT UPPER JOINT WITHOUT IMAGES COMPLETED DATE/TIME: 06/12/2020 9:12 am REASON FOR STUDY: BILATERAL SHOULDER PAIN. Stiffness, radiating pain, weakness in both shoulders ra diating down the arms. Decreased range of motion. Symptoms for 3 days. History of sickle cell anem ia. COMPARISON: Left shoulder radiograph, 06/07/2019. TECHNIQUE: Left shoulder images acquired and stored on PACS. Multiplanar imaging to include fat sens itive sequences such as T1, water sensitive sequences such as FST2/STIR, cartilage sensitive sequence s such as FSPD/gradient-echo sequences. LIMITATIONS: None. FINDINGS: BONE MARROW AND CORTEX: Diffuse abnormal bone marrow signal consistent with reactivated shantal [place] marrow probably in the setting of chronic anemia. No suspicious lesion. JOINT OR BURSAL EFFUSION: No significant joint or bursal fluid. No suggestion of loose bodies. GLENO-HUMERAL ARTICULATION: Normal articulation. No subluxation. No cystic change. No osteophytes or cartilage loss. ACROMION AND AC JOINT: No down-sloping or distal spur. Sub-acromial space maintained. No significa nt AC joint arthropathy. ROTATOR CUFF AND INTERVAL: No significant tear or signal alteration. No cuff muscle atrophy. No rotator interval tear. No rotator interval thickening to suggest adhesive capsulitis. LABRUM AND BICEPS LABRAL COMPLEX: Intact. No labral tear. Intra-articular long-head biceps tendon n ormal. Distal biceps in normal location in bicipital groove. REMAINDER OF LABRUM AND IGHL : No gross tear or paralabral cyst formation. Labral evaluation is less than optimal without joint distention. No thickening of IGHL to suggest adhesive capsulitis. PERIARTICULAR AND ADJACENT SOFT TISSUES: No masses or abnormal nodes. OTHER: No other significant finding. IMPRESSION: No rotator cuff tear. Diffuse abnormal bone marrow signal consistent with reactivated b one marrow likely secondary to patient's known history of sickle cell anemia. No acute abnormality. TECHNICAL DOCUMENTATION: JOB ID: [id number] [employer]- All Rights Reserved Reading location - IP/workstation name: [email or web address]
--- NOTE | 2020-06-12 15:42 | PDOC PROGRESS REPORT ---
Subjective Date:: 06/12/20 Subjective:: Patient is alert, MRI of the right shoulder demonstrated partial-thickness articular surface tear of the supraspinatus tendon no change from December 12, 2019 also showed was subacromial bursitis MRI of the left shoulder was negative Reason For Visit: CHILLS,SICKLE CELL PAIN CRISIS,SKIN RASH Physical Exam Vital Signs: Temp Pulse Resp BP Pulse Ox 98.3 F 86 18 100/63 96 06/11/20 23:42 06/11/20 23:42 06/11/20 23:42 06/11/20 23:42 06/11/20 23:42 Intake & Output 06/11/20 06/12/20 06/13/20 06:59 06:59 06:59 Intake Total 3195.5 3767 Output Total 1750 2400 Balance 1445.5 1367 Weight 67.3 kg 66.2 kg General appearance: PRESENT: no acute distress Eye exam: PRESENT: PERRLA Respiratory exam: PRESENT: clear to auscultation carolyn Cardiovascular exam: PRESENT: +S1, +S2 GI/Abdominal exam: PRESENT: soft Neurological exam: PRESENT: alert Results Laboratory Results: 06/04/20 08:00 06/04/20 08:00 06/01/20 20:00 Troponin I < 0.012 Impressions: Chest X-Ray 06/01/20 18:41 IMPRESSION: No acute pulmonary findings. Shoulder X-Ray 06/07/20 00:00 IMPRESSION: NEGATIVE STUDY OF THE LEFT SHOULDER. NO RADIOGRAPHIC EVIDENCE OF ACUTE INJURY. Upper Extremity MRI 06/12/20 00:00 IMPRESSION: No rotator cuff tear. Diffuse abnormal bone marrow signal consistent with reactivated bone marrow likely secondary to patient's known history of sickle cell anemia. No acute abnormality. Assessment & Plan - Diagnosis (1) Sickle cell pain crisis Is this a current diagnosis for this admission?: Yes Plan: continue treatment (2) Sickle cell anemia Qualifiers: Sickle-cell associated disorders: with unspecified crisis Qualified Code(s): D57.00 - Hb-SS disease with crisis, unspecified; D57.0 - Hb-SS disease with crisis Is this a current diagnosis for this admission?: Yes (3) Pain in left shoulder Qualifiers: Chronicity: chronic Qualified Code(s): M25.512 - Pain in left shoulder; G89.29 - Other chronic pain Is this a current diagnosis for this admission?: Yes - Time Time Spent with patient: 25-34 minutes Level of Care: MEDICAL Medications reviewed and adjusted accordingly: Yes Anticipated discharge: Home
[2020-06-12] MEDS: [UNRECOGNIZED DRUG - OTHER] IV SCH ×5 (18:14)
[2020-06-12] MEDS: POTASSIUM CHLORIDE IV SCH ×5 (18:14)
[2020-06-12] MEDS: MAGNESIUM SULFATE IV SCH ×5 (18:14)
[2020-06-12] MEDS: NORMAL SALINE IV SCH ×5 (18:14)
[2020-06-13] MEDS: HYDROMORPHONE HCL INJ/PF 2 MG/ML AMPULE IV PRN ×12 (00:29→23:09)
[2020-06-13] MEDS: PROMETHAZINE HCL INJ 25 MG/1 ML VIAL IV PRN ×6 (00:32→23:07)
[2020-06-13] MEDS: DIPHENHYDRAMINE HCL 50 MG/ML VIAL IV PRN ×6 (02:37→21:03)
[2020-06-13] MEDS: 1/2 NORMAL SALINE 1,000 ML IV PRN (02:41)
[2020-06-13] MEDS: JADENU (DEFERASIROX) 360 MG TABLET PO SCH (08:47)
[2020-06-13] MEDS: FOLIC ACID 1 MG TABLET PO SCH (10:52)
[2020-06-13] MEDS: HYDROXYUREA 500 MG CAPSULE PO SCH ×2 (10:52→17:27)
[2020-06-13] MEDS: ENOXAPARIN SODIUM INJ 40 MG/0.4 ML DISP.SYRIN SUBCUT SCH (10:54)
--- NOTE | 2020-06-13 14:35 | PDOC PROGRESS REPORT ---
Subjective Date:: 06/13/20 Subjective:: Patient reported persistent multiple joints pain related to her SCD crisis and l eft shoulder joint pain with motion. No fever or chills. No chest pain or difficulty with breathing. There is intermittent nausea but no vomiting. Reason For Visit: CHILLS,SICKLE CELL PAIN CRISIS,SKIN RASH Physical Exam Vital Signs: Temp Pulse Resp BP Pulse Ox 99.1 F 87 18 95/60 L 97 06/12/20 23:43 06/12/20 23:43 06/12/20 23:43 06/12/20 23:43 06/12/20 23:43 Intake & Output 06/12/20 06/13/20 06/14/20 06:59 06:59 06:59 Intake Total 4782.5 3775.5 Output Total 2400 3710 Balance 2382.5 65.5 Weight 66.2 kg 66.4 kg General appearance: PRESENT: no acute distress Head exam: PRESENT: atraumatic, normocephalic Eye exam: PRESENT: conjunctiva pink. ABSENT: scleral icterus Respiratory exam: PRESENT: clear to auscultation carolyn Cardiovascular exam: PRESENT: RRR, +S1, +S2. ABSENT: diastolic murmur, rubs, systolic murmur Vascular exam: ABSENT: pallor GI/Abdominal exam: PRESENT: normal bowel sounds, soft. ABSENT: tenderness Extremities exam: ABSENT: pedal edema Neurological exam: PRESENT: alert, awake, oriented to person, oriented to place, oriented to time, oriented to situation, CN II-XII grossly intact. ABSENT: motor sensory deficit Skin exam: PRESENT: dry, warm Results Laboratory Results: 06/04/20 08:00 06/04/20 08:00 06/01/20 20:00 Troponin I < 0.012 Impressions: Chest X-Ray 06/01/20 18:41 IMPRESSION: No acute pulmonary findings. Shoulder X-Ray 06/07/20 00:00 IMPRESSION: NEGATIVE STUDY OF THE LEFT SHOULDER. NO RADIOGRAPHIC EVIDENCE OF ACUTE INJURY. Upper Extremity MRI 06/12/20 00:00 IMPRESSION: No rotator cuff tear. Diffuse abnormal bone marrow signal co nsistent with reactivated bone marrow likely secondary to patient's known history of sickle cell anemia. No acute abnormality. Assessment & Plan - Diagnosis (1) Sickle cell anemia Qualifiers: Sickle-cell associated disorders: with unspecified crisis Qualified Code(s): D57.00 - Hb-SS disease with crisis, unspecified; D57.0 - Hb-SS disease with crisis Is this a current diagnosis for this admission?: Yes Plan: Continue current supportive care and pain management regimen. (2) Anemia, sickle cell with crisis Is this a current diagnosis for this admission?: Yes Plan: Continue current supportive care and pain management regimen. (3) Pain in left shoulder Qualifiers: Chronicity: chronic Qualified Code(s): M25.512 - Pain in left shoulder; G89.29 - Other chronic pain Is this a current diagnosis for this admission?: Yes Plan: Continue current pain management regimen. She may benefit from physical therapy involvement. (4) Left rotator cuff tear Qualifiers: Rotator cuff tear extent: incomplete Encounter type: initial encounter Qualified Code(s): M75.112 - Incomplete rotator cuff tear or rupture of left shoulder, not specified as traumatic Is this a current diagnosis for this admission?: Yes Plan: She may benefit from physical therapy involvement. - Time Time Spent with patient: 25-34 minutes Level of Care: IMCU Medications reviewed and adjusted accordingly: Yes Anticipated discharge: Home with Homehealth Anticipated DC Timeframe: within 72 hours - Inpatient Certification Based on my medical assessment, after consideration of the patient's comorbidities, presenting symptoms, or acuity I expect that the services needed warrant INPATIENT care.: Yes I certify that my determination is in accordance with my understanding of Medicare's requirements for reasonable and necessary INPATIENT services [42 CFR 412.3e].: Yes Medical Necessity: Significant Comorbidiites Make Outpatient Treatment Too Risky, Need Close Monitoring Due to Risk of Patient Decompensation, Need For IV Fluids, Need for Pain Control, Risk of Complication if Not Cared For in Hospital, Risk of Diagnosis Which Will Require Inpatient Eval/Care/Monitoring Post Hospital Care: D/C Community Sports Coordinator Documentation - Plan Summary Plan Summary: Continue current medication management. Request PT/OT evaluation. Obtain CBC with diff and CMP in am.
[2020-06-13] MEDS: MAGNESIUM SULFATE IV SCH ×5 (17:28)
[2020-06-13] MEDS: [UNRECOGNIZED DRUG - OTHER] IV SCH ×5 (17:28)
[2020-06-13] MEDS: NORMAL SALINE IV SCH ×5 (17:28)
[2020-06-13] MEDS: POTASSIUM CHLORIDE IV SCH ×5 (17:28)
[2020-06-14] MEDS: DIPHENHYDRAMINE HCL 50 MG/ML VIAL IV PRN ×6 (01:10→22:58)
[2020-06-14] MEDS: HYDROMORPHONE HCL INJ/PF 2 MG/ML AMPULE IV PRN ×11 (01:10→22:58)
[2020-06-14] MEDS: PROMETHAZINE HCL INJ 25 MG/1 ML VIAL IV PRN ×5 (03:12→20:24)
[2020-06-14] MEDS: 1/2 NORMAL SALINE 1,000 ML IV PRN ×2 (04:28→14:20)
[2020-06-14 07:39] LABS: ALBUMIN 3.8 g/dL (3.5-5.0); ALKALINE PHOSPHATASE 125 U/L (38-126); ANION GAP 8 (5-19); ASPARTATE AMINO TRANSFERASE 49 U/L (14-36); BILIRUBIN,DIRECT 0.4 mg/dL (0.0-0.4); BILIRUBIN,TOTAL 2.4 mg/dL (0.2-1.3); BLOOD UREA NITROGEN 8 mg/dL (7-20); CALCIUM 8.4 mg/dL (8.4-10.2); CARBON DIOXIDE 24 mmol/L (22-30); CHLORIDE 106 mmol/L (98-107); GLUCOSE 103 mg/dL (75-110); POTASSIUM 4.1 mmol/L (3.6-5.0); TOTAL PROTEIN 6.4 g/dL (6.3-8.2)
[2020-06-14] MEDS: JADENU (DEFERASIROX) 360 MG TABLET PO SCH (07:54)
[2020-06-14 09:54] LABS: HEMATOCRIT 16.1 % (36.0-47.0); MEAN CORPUSCULAR HEMOGLOBIN 46.1 pg (27.0-33.4); MEAN CORPUSCULAR HGB CONC 34.8 g/dL (32.0-36.0); MEAN CORPUSCULAR VOLUME 133 fl (80-97); PLATELET COUNT 168 10^3/uL (150-450); RED BLOOD COUNT 1.21 10^6/uL (3.72-5.28); RED CELL DISTRIBUTION WIDTH 18.1 % (11.5-14.0); WHITE BLOOD COUNT 4.2 10^3/uL (4.0-10.5)
[2020-06-14] MEDS: FOLIC ACID 1 MG TABLET PO SCH (10:07)
[2020-06-14] MEDS: ENOXAPARIN SODIUM INJ 40 MG/0.4 ML DISP.SYRIN SUBCUT SCH (10:07)
[2020-06-14] MEDS: HYDROXYUREA 500 MG CAPSULE PO SCH ×2 (10:07→18:28)
--- NOTE | 2020-06-14 10:45 | PDOC PROGRESS REPORT ---
Subjective Date:: 06/14/20 Subjective:: Patient doing better in terms of pain. Reviewed MRI imaging with patient, no acute abnormalities noted. Still having significant pain and discussed that by Tuesday need to start decreasing pain medication. Reason For Visit: CHILLS,SICKLE CELL PAIN CRISIS,SKIN RASH Physical Exam Vital Signs: Temp Pulse Resp BP Pulse Ox 98.4 F 80 18 101/64 99 06/14/20 08:00 06/14/20 08:00 06/14/20 08:00 06/14/20 08:00 06/14/20 08:00 Intake & Output 06/13/20 06/14/20 06/15/20 06:59 06:59 06:59 Intake Total 3775.5 4000.5 Output Total 3710 2020 Balance 65.5 1980.5 Weight 66.4 kg 66.2 kg General appearance: PRESENT: no acute distress, well-developed, well-nourished Head exam: PRESENT: atraumatic, normocephalic Eye exam: PRESENT: conjunctiva pink, EOMI, PERRLA. ABSENT: scleral icterus Ear exam: PRESENT: normal external ear exam Mouth exam: PRESENT: moist, tongue midline Neck exam: ABSENT: carotid bruit, JVD, lymphadenopathy, thyromegaly Respiratory exam: PRESENT: clear to auscultation carolyn. ABSENT: rales, rhonchi, wheezes Cardiovascular exam: PRESENT: RRR. ABSENT: diastolic murmur, rubs, systolic murmur Pulses: PRESENT: normal dorsalis pedis pul Vascular exam: PRESENT: normal capillary refill GI/Abdominal exam: PRESENT: normal bowel sounds, soft. ABSENT: distended, guarding, mass, organolmegaly, rebound, tenderness Rectal exam: PRESENT: deferred Extremities exam: PRESENT: full ROM. ABSENT: calf tenderness, clubbing, pedal edema Neurological exam: PRESENT: alert, awake, oriented to person, oriented to place, oriented to time, oriented to situation, CN II-XII grossly intact. ABSENT: motor sensory deficit Psychiatric exam: PRESENT: appropriate affect, normal mood. ABSENT: homicidal ideation, suicidal ideation Skin exam: PRESENT: dry, intact, warm. ABSENT: cyanosis, rash Results Laboratory Results: 06/14/20 05:50 06/14/20 06/14/20 05:50 05:50 WBC Cancelled RBC Cancelled Hgb Cancelled Hct Cancelled MCV Cancelled MCH Cancelled MCHC Cancelled RDW Cancelled Plt Count Cancelled Seg Neutrophils % Cancelled Sodium 137.7 Potassium 4.1 Chloride 106 Carbon Dioxide 24 Anion Gap 8 BUN 8 Creatinine 0.55 Est GFR ( Amer) > 60 Glucose 103 Calcium 8.4 Total Bilirubin 2.4 H AST 49 H Alkaline Phosphatase 125 Total Protein 6.4 Albumin 3.8 06/01/20 20:00 Troponin I < 0.012 Impressions: Chest X-Ray 06/01/20 18:41 IMPRESSION: No acute pulmonary findings. Shoulder X-Ray 06/07/20 00:00 IMPRESSION: NEGATIVE STUDY OF THE LEFT SHOULDER. NO RADIOGRAPHIC EVIDENCE OF ACUTE INJURY. Upper Extremity MRI 06/12/20 00:00 IMPRESSION: No rotator cuff tear. Diffuse abnormal bone marrow signal consi stent with reactivated bone marrow likely secondary to patient's known history of sickle cell anemia. No acute abnormality. Assessment & Plan - Diagnosis (1) Sickle cell pain crisis Is this a current diagnosis for this admission?: Yes Plan: Continue current regimen for now. Changes in the next 48 hours. - Time Time Spent with patient: 35 or more minutes
[2020-06-14 11:04] LABS: ABSOLUTE LYMPHOCYTES# (MANUAL) 2.2 10^3/uL (0.5-4.7); ABSOLUTE MONOCYTES # (MANUAL) 0.1 10^3/uL (0.1-1.4); BASOPHILS % (MANUAL) 2 % (0-2); EOSINOPHILS % (MANUAL) 12 % (0-6); LYMPHOCYTES % (MANUAL) 52 % (13-45); MONOCYTES % (MANUAL) 2 % (3-13); NUCLEATED RED BLOOD CELLS 10 /100 WBC (0); SEGMENTED NEUTROPHILS % (MAN) 32 % (42-78); TOTAL CELLS COUNTED 100
[2020-06-14 11:09] LABS: ANISOCYTOSIS 2+; OVALOCYTES 1+; PLATELET COMMENT ADEQUATE; PLATELET LARGE A; TARGET CELLS SLIGHT
[2020-06-14 11:12] LABS: HEMOGLOBIN 5.6 g/dL (12.0-15.5)
--- NOTE | 2020-06-14 12:29 | PDOC PROGRESS REPORT ---
Subjective Date:: 06/14/20 Subjective:: Patient participated in PT session today and continue to reported shoulder joint pain. No chest pain or difficulty with breathing. No reported fever or chills. Reason For Visit: CHILLS,SICKLE CELL PAIN CRISIS,SKIN RASH Physical Exam Vital Signs: Temp Pulse Resp BP Pulse Ox 98.4 F 80 18 101/64 99 06/14/20 08:00 06/14/20 08:00 06/14/20 08:00 06/14/20 08:00 06/14/20 08:00 Intake & Output 06/13/20 06/14/20 06/15/20 06:59 06:59 06:59 Intake Total 3775.5 4000.5 Output Total 3710 2020 Balance 65.5 1980.5 Weight 66.4 kg 66.2 kg Physical Exam: General appearance: PRESENT: no acute distress Head exam: PRESENT: atraumatic, normocephalic Eye exam: PRESENT: conjunctiva pale, pallor. ABSENT: scleral icterus Respiratory exam: PRESENT: clear to auscultation carolyn Cardiovascular exam: PRESENT: RRR, +S1, +S2. ABSENT: diastolic murmur, rubs, systolic murmur GI/Abdominal exam: PRESENT: normal bowel sounds, soft. ABSENT: tenderness Extremities exam: ABSENT: pedal edema Neurological exam: PRESENT: alert, awake, oriented to person, oriented to place, oriented to time, oriented to situation, CN II-XII grossly intact. ABSENT: motor sensory deficit Skin exam: PRESENT: dry, warm Results Laboratory Results: 06/14/20 08:20 06/14/20 05:50 06/14/20 06/14/20 06/14/20 05:50 05:50 08:20 WBC Cancelled 4.2 RBC Cancelled 1.21 L Hgb Cancelled 5.6 L Hct Cancelled 16.1 L MCV Cancelled 133 H MCH Cancelled 46.1 H MCHC Cancelled 34.8 RDW Cancelled 18.1 H Plt Count Cancelled 168 Seg Neutrophils % Cancelled Not Reportable Sodium 137.7 Potassium 4.1 Chloride 106 Carbon Dioxide 24 Anion Gap 8 BUN 8 Creatinine 0.55 Est GFR ( Amer) > 60 Glucose 103 Calcium 8.4 Total Bilirubin 2.4 H AST 49 H Alkaline Phosphatase 125 Total Protein 6.4 Albumin 3.8 06/01/20 20:00 Troponin I < 0.012 Impressions: Chest X-Ray 06/01/20 18:41 IMPRESSION: No acute pulmonary findings. Shoulder X-Ray 06/07/20 00:00 IMPRESSION: NEGATIVE STUDY OF THE LEFT SHOULDER. NO RADIOGRAPHIC EVIDENCE OF ACUTE INJURY. Upper Extremity MRI 06/12/20 00:00 IMPRESSION: No rotator cuff tear. Diffuse abnormal bone marrow signal consistent with reactivated bone marrow likely secondary to patient's known history of sickle cell anemia. No acute abnormality. Assessment & Plan - Diagnosis (1) Sickle cell anemia Qualifiers: Sickle-cell associated disorders: with unspecified crisis Qualified Code(s): D57.00 - Hb-SS disease with crisis, unspecified; D57.0 - Hb-SS disease with crisis Is this a current diagnosis for this admission?: Yes Plan: Blood transfusion is on hold at present due to her iron over load issue from prior transfusion. case was discussed with Dr. Harris, associate professor of surgery, on the case. (2) Anemia, sickle cell with crisis Is this a current diagnosis for this admission?: Yes (3) Pain in left shoulder Qualifiers: Chronicity: chronic Qualified Code(s): M25.512 - Pain in left shoulder; G89.29 - Other chronic pain Is this a current diagnosis for this admission?: Yes (4) Left rotator cuff tear Qualifiers: Rotator cuff tear extent: incomplete Encounter type: initial encounter Is this a current diagnosis for this admission?: Yes - Time Time Spent with patient: 25-34 minutes Level of Care: IMCU Medications reviewed and adjusted accordingly: Yes Anticipated discharge: Home with Homehealth Anticipated DC Timeframe: within 72 hours - Inpatient Certification Based on my medical assessment, after consideration of the patient's comorbidities, presenting symptoms, or acuity I expect that the services needed warrant INPATIENT care.: Yes I certify that my determination is in accordance with my understanding of Medicare's requirements for reasonable and necessary INPATIENT services [42 CFR 412.3e].: Yes Medical Necessity: Significant Comorbidiites Make Outpatient Treatment Too Risky, Need Close Monitoring Due to Risk of Patient Decompensation, Need For IV Fluids, Need For Continuous Telemetry Monitoring, Need for Pain Control, Risk of Complication if Not Cared For in Hospital, Risk of Diagnosis Which Will Require Inpatient Eval/Care/Monitoring Post Hospital Care: D/C Headliner Installer Documentation - Plan Summary Plan Summary: Continue current medication management. Encouraged continue participation in PT session.
[2020-06-14] MEDS: POTASSIUM CHLORIDE IV SCH ×5 (17:36)
[2020-06-14] MEDS: MAGNESIUM SULFATE IV SCH ×5 (17:36)
[2020-06-14] MEDS: NORMAL SALINE IV SCH ×5 (17:36)
[2020-06-14] MEDS: [UNRECOGNIZED DRUG - OTHER] IV SCH ×5 (17:36)
[2020-06-15] MEDS: PROMETHAZINE HCL INJ 25 MG/1 ML VIAL IV PRN ×6 (01:19→23:58)
[2020-06-15] MEDS: HYDROMORPHONE HCL INJ/PF 2 MG/ML AMPULE IV PRN ×11 (01:19→23:58)
[2020-06-15] MEDS: DIPHENHYDRAMINE HCL 50 MG/ML VIAL IV PRN ×5 (03:58→21:56)
[2020-06-15] MEDS: FOLIC ACID 1 MG TABLET PO SCH (09:12)
[2020-06-15] MEDS: HYDROXYUREA 500 MG CAPSULE PO SCH ×2 (09:12→17:42)
[2020-06-15] MEDS: ENOXAPARIN SODIUM INJ 40 MG/0.4 ML DISP.SYRIN SUBCUT SCH (09:12)
[2020-06-15] MEDS: JADENU (DEFERASIROX) 360 MG TABLET PO SCH (09:15)
--- NOTE | 2020-06-15 10:16 | PDOC PROGRESS REPORT ---
Subjective Date:: 06/15/20 Subjective:: Patient continue to experience multiple joints and lower back pain related to her SCD pain crisis. No chest pain or difficulty with breathing. No reported fever or chills. Reason For Visit: CHILLS,SICKLE CELL PAIN CRISIS,SKIN RASH Physical Exam Vital Signs: Temp Pulse Resp BP Pulse Ox 98.5 F 84 18 103/54 L 98 06/14/20 23:00 06/14/20 23:00 06/14/20 23:00 06/14/20 23:00 06/14/20 23:00 Intake & Output 06/14/20 06/15/20 06/16/20 06:59 06:59 06:59 Intake Total 4000.5 3534.5 Output Total 2020 1800 Balance 1980.5 1734.5 Weight 66.2 kg 69.2 kg Physical Exam: General appearance: PRESENT: no acute distress Head exam: PRESENT: atraumatic, normocephalic Eye exam: PRESENT: conjunctiva pale, pallor. ABSENT: scleral icterus Respiratory exam: PRESENT: clear to auscultation carolyn Cardiovascular exam: PRESENT: RRR, +S1, +S2. ABSENT: diastolic murmur, rubs, systolic murmur GI/Abdominal exam: PRESENT: normal bowel sounds, soft. ABSENT: tenderness Extremities exam: ABSENT: pedal edema Neurological exam: PRESENT: alert, awake, oriented to person, oriented to place, oriented to time, oriented to situation, CN II-XII grossly intact. ABSENT: motor sensory deficit Skin exam: PRESENT: dry, warm Results Laboratory Results: 06/14/20 08:20 06/14/20 05:50 06/14/20 08:20 WBC 4.2 RBC 1.21 L Hgb 5.6 L Hct 16.1 L MCV 133 H MCH 46.1 H MCHC 34.8 RDW 18.1 H Plt Count 168 Seg Neutrophils % Not Reportable 06/01/20 20:00 Troponin I < 0.012 Impressions: Chest X-Ray 06/01/20 18:41 IMPRESSION: No acute pulmonary findings. Shoulder X-Ray 06/07/20 00:00 IMPRESSION: NEGATIVE STUDY OF THE LEFT SHOULDER. NO RADIOGRAPHIC EVIDENCE OF ACUTE INJURY. Upper Extremity MRI 06/12/20 00:00 IMPRESSION: No rotator cuff tear. Diffuse abnormal bone marrow signal consistent with reactivated bone marrow likely secondary to patient's known history of sickle cell anemia. No acute abnormality. Assessment & Plan - Diagnosis (1) Sickle cell anemia Qualifiers: Sickle-cell associated disorders: with unspecified crisis Qualified Code(s): D57.00 - Hb-SS disease with crisis, unspecified; D57.0 - Hb-SS disease with crisis Is this a current diagnosis for this admission?: Yes (2) Anemia, sickle cell with crisis Is this a current diagnosis for this admission?: Yes (3) Pain in left shoulder Qualifiers: Chronicity: chronic Qualified Code(s): M25.512 - Pain in left shoulder; G89.29 - Other chronic pain Is this a current diagnosis for this admission?: Yes (4) Left rotator cuff tear Qualifiers: Rotator cuff tear extent: incomplete Encounter type: initial encounter Is this a current diagnosis for this admission?: Yes - Time Time Spent with patient: 25-34 minutes Level of Care: IMCU Medications reviewed and adjusted accordingly: Yes Anticipated discharge: Home with Homehealth Anticipated DC Timeframe: within 72 hours - Inpatient Certification Based on my medical assessment, after consideration of the patient's comorbidities, presenting symptoms, or acuity I expect that the services needed warrant INPATIENT care.: Yes I certify that my determination is in accordance with my understanding of Medicare's requirements for reasonable and necessary INPATIENT services [42 CFR 412.3e].: Yes Medical Necessity: Significant Comorbidiites Make Outpatient Treatment Too Risky, Need Close Monitoring Due to Risk of Patient Decompensation, Need For IV Fluids, Need For Continuous Telemetry Monitoring, Need for Pain Control, Risk of Complication if Not Cared For in Hospital, Risk of Diagnosis Which Will Require Inpatient Eval/Care/Monitoring Post Hospital Care: D/C Export Documents Clerk Documentation - Plan Summary Plan Summary: Continue current medication management.
[2020-06-15] MEDS: 1/2 NORMAL SALINE 1,000 ML IV PRN (10:54)
[2020-06-15] MEDS: MAGNESIUM SULFATE IV SCH ×5 (17:43)
[2020-06-15] MEDS: POTASSIUM CHLORIDE IV SCH ×5 (17:43)
[2020-06-15] MEDS: NORMAL SALINE IV SCH ×5 (17:43)
[2020-06-15] MEDS: [UNRECOGNIZED DRUG - OTHER] IV SCH ×5 (17:43)
[2020-06-16] MEDS: HYDROMORPHONE HCL INJ/PF 2 MG/ML AMPULE IV PRN ×11 (02:05→23:53)
[2020-06-16] MEDS: DIPHENHYDRAMINE HCL 50 MG/ML VIAL IV PRN ×6 (02:06→23:53)
[2020-06-16] MEDS: PROMETHAZINE HCL INJ 25 MG/1 ML VIAL IV PRN ×5 (04:08→21:45)
[2020-06-16] MEDS: 1/2 NORMAL SALINE 1,000 ML IV PRN (04:08)
[2020-06-16] MEDS: JADENU (DEFERASIROX) 360 MG TABLET PO SCH (08:24)
[2020-06-16] MEDS ORDERED: NORMAL SALINE 250 ML IV PRN ×2 (08:45)
--- NOTE | 2020-06-16 08:48 | PDOC PROGRESS REPORT ---
Subjective Date:: 06/16/20 Subjective:: Patient states she has not had a pain crisis like this for a long time. Her yohan nt pain remains severe. SHe has been trying to get up and walk, and has been drinking as much as she can. ROS: She denies any constipation, dyspnea, fevers. Reason For Visit: CHILLS,SICKLE CELL PAIN CRISIS,SKIN RASH Physical Exam Vital Signs: Temp Pulse Resp BP Pulse Ox 98.5 F 87 18 98/50 L 96 06/15/20 23:35 06/15/20 23:35 06/15/20 23:35 06/15/20 23:35 06/15/20 23:35 Intake & Output 06/15/20 06/16/20 06/17/20 06:59 06:59 06:59 Intake Total 3534.5 4879.5 Output Total 1800 Balance 1734.5 4879.5 Weight 69.2 kg 70.2 kg General appearance: PRESENT: no acute distress Head exam: PRESENT: normocephalic Eye exam: PRESENT: EOMI Respiratory exam: PRESENT: unlabored Cardiovascular exam: PRESENT: RRR GI/Abdominal exam: PRESENT: soft. ABSENT: tenderness Neurological exam: PRESENT: alert, awake Psychiatric exam: PRESENT: depressed Skin exam: PRESENT: normal color Results Laboratory Results: 06/14/20 08:20 06/14/20 05:50 06/01/20 20:00 Troponin I < 0.012 Impressions: Chest X-Ray 06/01/20 18:41 IMPRESSION: No acute pulmonary findings. Shoulder X-Ray 06/07/20 00:00 IMPRESSION: NEGATIVE STUDY OF THE LEFT SHOULDER. NO RADIOGRAPHIC EVIDENCE OF ACUTE INJURY. Upper Extremity MRI 06/12/20 00:00 IMPRESSION: No rotator cuff tear. Diffuse abnormal bone marrow signal consistent with reactivated bone marrow likely secondary to patient's known history of sickle cell anemia. No acute abnormality. Assessment & Plan - Diagnosis (1) Sickle cell pain crisis Is this a current diagnosis for this admission?: Yes Plan: Continue current pain medications, fluids, Oxygen. I will transfuse 1 unit pRBCs today. (2) Iron overload due to repeated red blood cell transfusions Is this a current diagnosis for this admission?: Yes Plan: Continue Jadenu. - Time Time Spent with patient: 15-24 minutes
[2020-06-16] MEDS: FOLIC ACID 1 MG TABLET PO SCH (09:14)
[2020-06-16] MEDS: HYDROXYUREA 500 MG CAPSULE PO SCH ×2 (09:14→17:08)
[2020-06-16] MEDS: ENOXAPARIN SODIUM INJ 40 MG/0.4 ML DISP.SYRIN SUBCUT SCH (09:14)
[2020-06-16 10:57] LABS: HEMATOCRIT 16.5 % (36.0-47.0); MEAN CORPUSCULAR HEMOGLOBIN 46.5 pg (27.0-33.4); MEAN CORPUSCULAR VOLUME 133 fl (80-97); PLATELET COUNT 234 10^3/uL (150-450); RED BLOOD COUNT 1.25 10^6/uL (3.72-5.28); RED CELL DISTRIBUTION WIDTH 18.9 % (11.5-14.0)
[2020-06-16 11:39] LABS: WHITE BLOOD COUNT 3.5 10^3/uL (4.0-10.5)
[2020-06-16 11:41] LABS: HEMOGLOBIN 5.8 g/dL (12.0-15.5)
[2020-06-16] MEDS: [UNRECOGNIZED DRUG - OTHER] IV SCH ×5 (17:07)
[2020-06-16] MEDS: POTASSIUM CHLORIDE IV SCH ×5 (17:07)
[2020-06-16] MEDS: MAGNESIUM SULFATE IV SCH ×5 (17:07)
[2020-06-16] MEDS: NORMAL SALINE IV SCH ×5 (17:07)
[2020-06-16 20:25] LABS: MEAN CORPUSCULAR HEMOGLOBIN 42.8 pg (27.0-33.4); MEAN CORPUSCULAR HGB CONC 35.9 g/dL (32.0-36.0); PLATELET COUNT 225 10^3/uL (150-450); RED BLOOD COUNT 1.68 10^6/uL (3.72-5.28); RED CELL DISTRIBUTION WIDTH 30.5 % (11.5-14.0); WHITE BLOOD COUNT 4.8 10^3/uL (4.0-10.5)
--- NOTE | 2020-06-16 20:29 | PDOC PROGRESS REPORT ---
Subjective Date:: 06/16/20 Subjective:: Patient still complaining of pain she was admitted on 06/01/2020 and she has bee n on continuous Dilaudid since then. MRI of the shoulders did not show any acute disease, I will consult pain specialist for advice she tends to stay too long whenever she is admitted to the hospital Reason For Visit: CHILLS,SICKLE CELL PAIN CRISIS,SKIN RASH Physical Exam Vital Signs: Temp Pulse Resp BP Pulse Ox 98.2 F 81 14 113/67 98 06/16/20 16:18 06/16/20 16:18 06/16/20 16:18 06/16/20 16:18 06/16/20 16:18 Intake & Output 06/15/20 06/16/20 06/17/20 06:59 06:59 06:59 Intake Total 3534.5 4879.5 850 Output Total 1800 Balance 1734.5 4879.5 850 Weight 69.2 kg 70.2 kg General appearance: PRESENT: no acute distress Eye exam: PRESENT: PERRLA Respiratory exam: PRESENT: clear to auscultation carolyn Cardiovascular exam: PRESENT: +S1, +S2 GI/Abdominal exam: PRESENT: soft Results Laboratory Results: 06/14/20 05:50 06/16/20 06/16/20 09:55 10:43 WBC 3.5 L RBC 1.25 L Hgb 5.8 L Hct 16.5 L MCV 133 H MCH 46.5 H MCHC 35.0 RDW 18.9 H Plt Count 234 Blood Type O POSITIVE Antibody Screen NEGATIVE 06/01/20 20:00 Troponin I < 0.012 Impressions: Chest X-Ray 06/01/20 18:41 IMPRESSION: No acute pulmonary findings. Shoulder X-Ray 06/07/20 00:00 IMPRESSION: NEGATIVE STUDY OF THE LEFT SHOULDER. NO RADIOGRAPHIC EVIDENCE OF ACUTE INJURY. Upper Extremity MRI 06/12/20 00:00 IMPRESSION: No rotator cuff tear. Diffuse abnormal bone marrow signal consistent with reactivated bone marrow likely secondary to patient's known history of sickle cell anemia. No acute abnormality. Assessment & Plan - Diagnosis (1) Sickle cell pain crisis Is this a current diagnosis for this admission?: Yes (2) Sickle cell anemia Qualifiers: Sickle-cell associated disorders: with unspecified crisis Qualified Code(s): D57.00 - Hb-SS disease with crisis, unspecified; D57.0 - Hb-SS disease with crisis Is this a current diagnosis for this admission?: Yes (3) Pain in left shoulder Qualifiers: Chronicity: chronic Qualified Code(s): M25.512 - Pain in left shoulder; G89.29 - Other chronic pain Is this a current diagnosis for this admission?: Yes - Time Time Spent with patient: 15-24 minutes Level of Care: MEDICAL Anticipated discharge: Home Anticipated DC Timeframe: Other - Consult pain specialist
[2020-06-16 20:40] LABS: MEAN CORPUSCULAR VOLUME 119 fl (80-97)
[2020-06-16 20:41] LABS: HEMOGLOBIN 7.2 g/dL (12.0-15.5)
[2020-06-16 20:50] LABS: ABSOLUTE LYMPHOCYTES# (MANUAL) 2.3 10^3/uL (0.5-4.7); ABSOLUTE MONOCYTES # (MANUAL) 0.2 10^3/uL (0.1-1.4); BASOPHILS % (MANUAL) 0 % (0-2); EOSINOPHILS % (MANUAL) 10 % (0-6); LYMPHOCYTES % (MANUAL) 48 % (13-45); MONOCYTES % (MANUAL) 5 % (3-13); NUCLEATED RED BLOOD CELLS 40 /100 WBC (0); SEGMENTED NEUTROPHILS % (MAN) 37 % (42-78); TOTAL CELLS COUNTED 100
[2020-06-16 20:53] LABS: ANISOCYTOSIS 4+; POLYCHROMASIA 1+
[2020-06-16 20:54] LABS: OVALOCYTES 1+; PLATELET COMMENT ADEQUATE; TARGET CELLS 2+
[2020-06-17] MEDS: HYDROMORPHONE HCL INJ/PF 2 MG/ML AMPULE IV PRN ×10 (01:56→22:06)
[2020-06-17] MEDS: PROMETHAZINE HCL INJ 25 MG/1 ML VIAL IV PRN ×5 (01:57→19:56)
[2020-06-17] MEDS: DIPHENHYDRAMINE HCL 50 MG/ML VIAL IV PRN ×5 (03:57→22:05)
[2020-06-17] MEDS: 1/2 NORMAL SALINE 1,000 ML IV PRN ×2 (05:45→15:14)
--- NOTE | 2020-06-17 08:15 | PDOC PROGRESS REPORT ---
Subjective Date:: 06/17/20 Subjective:: patient feeling much better today after blood transfusion yesterday. No new com plaints voiced. She still gets quite distraught when staff accuse her of malingering. Reason For Visit: CHILLS,SICKLE CELL PAIN CRISIS,SKIN RASH Physical Exam Vital Signs: Temp Pulse Resp BP Pulse Ox 98.3 F 82 22 H 109/59 L 97 06/17/20 04:27 06/17/20 04:27 06/17/20 04:27 06/17/20 04:27 06/17/20 04:27 Intake & Output 06/16/20 06/17/20 06/18/20 06:59 06:59 06:59 Intake Total 4879.5 2250 Output Total 2600 Balance 4879.5 -350 Weight 70.2 kg 70 kg General appearance: PRESENT: no acute distress Head exam: PRESENT: normocephalic Eye exam: PRESENT: EOMI Respiratory exam: PRESENT: unlabored Extremities exam: ABSENT: pedal edema Neurological exam: PRESENT: alert, awake Psychiatric exam: PRESENT: appropriate affect Skin exam: PRESENT: normal color Results Laboratory Results: 06/16/20 20:05 06/14/20 05:50 06/16/20 06/16/20 06/16/20 09:55 10:43 20:05 WBC 3.5 L 4.8 RBC 1.25 L 1.68 L Hgb 5.8 L 7.2 L Hct 16.5 L 20.0 L MCV 133 H 119 H D MCH 46.5 H 42.8 H MCHC 35.0 35.9 RDW 18.9 H 30.5 H Plt Count 234 225 Seg Neutrophils % Not Reportable Blood Type O POSITIVE Antibody Screen NEGATIVE 06/01/20 20:00 Troponin I < 0.012 Impressions: Chest X-Ray 06/01/20 18:41 IMPRESSION: No acute pulmonary findings. Shoulder X-Ray 06/07/20 00:00 IMPRESSION: NEGATIVE STUDY OF THE LEFT SHOULDER. NO RADIOGRAPHIC EVIDENCE OF ACUTE INJURY. Upper Extremity MRI 06/12/20 00:00 IMPRESSION: No rotator cuff tear. Diffuse abnormal bone marrow signal consistent with reactivated bone marrow likely secondary to patient's known history of sickle cell anemia. No acute abnormality. Assessment & Plan - Diagnosis (1) Sickle cell pain crisis Is this a current diagnosis for this admission?: Yes Plan: Continue all treatments as before. (2) Iron overload due to repeated red blood cell transfusions Is this a current diagnosis for this admission?: Yes Plan: Continue Jadenu. - Time Time Spent with patient: Less than 15 minutes - Plan Summary Plan Summary: She will try to continue to ambulate. Daily Banana bag has been stopped, as components are not available currently.
[2020-06-17 09:13] LABS: ALBUMIN 3.9 g/dL (3.5-5.0); ALKALINE PHOSPHATASE 126 U/L (38-126); ASPARTATE AMINO TRANSFERASE 58 U/L (14-36); BILIRUBIN,DIRECT 0.4 mg/dL (0.0-0.4); BILIRUBIN,TOTAL 2.5 mg/dL (0.2-1.3); BLOOD UREA NITROGEN 9 mg/dL (7-20); CALCIUM 8.6 mg/dL (8.4-10.2); CARBON DIOXIDE 27 mmol/L (22-30); CHLORIDE 105 mmol/L (98-107); GLUCOSE 87 mg/dL (75-110); POTASSIUM 4.5 mmol/L (3.6-5.0)
[2020-06-17 09:15] LABS: ANION GAP 6 (5-19)
[2020-06-17] MEDS: FOLIC ACID 1 MG TABLET PO SCH (10:53)
[2020-06-17] MEDS: ENOXAPARIN SODIUM INJ 40 MG/0.4 ML DISP.SYRIN SUBCUT SCH (10:53)
[2020-06-17] MEDS: HYDROXYUREA 500 MG CAPSULE PO SCH ×2 (10:53→17:15)
[2020-06-17] MEDS: JADENU (DEFERASIROX) 360 MG TABLET PO SCH (12:38)
--- NOTE | 2020-06-17 19:56 | PDOC PROGRESS REPORT ---
Subjective Date:: 06/17/20 Subjective:: Patient seen by the bedside she has no new complaints Reason For Visit: CHILLS,SICKLE CELL PAIN CRISIS,SKIN RASH Physical Exam Vital Signs: Temp Pulse Resp BP Pulse Ox 98.6 F 78 18 112/59 L 99 06/17/20 15:29 06/17/20 15:29 06/17/20 15:29 06/17/20 15:29 06/17/20 15:29 Intake & Output 06/16/20 06/17/20 06/18/20 06:59 06:59 06:59 Intake Total 4879.5 2250 1000 Output Total 2600 Balance 4879.5 -350 1000 Weight 70.2 kg 70 kg 70 kg General appearance: PRESENT: no acute distress Eye exam: PRESENT: PERRLA Respiratory exam: PRESENT: clear to auscultation carolyn Cardiovascular exam: PRESENT: +S1, +S2 GI/Abdominal exam: PRESENT: soft Neurological exam: PRESENT: alert Results Laboratory Results: 06/16/20 20:05 06/17/20 08:15 06/16/20 06/17/20 20:05 08:15 WBC 4.8 RBC 1.68 L Hgb 7.2 L Hct 20.0 L MCV 119 H D MCH 42.8 H MCHC 35.9 RDW 30.5 H Plt Count 225 Seg Neutrophils % Not Reportable Sodium 137.6 Potassium 4.5 Chloride 105 Carbon Dioxide 27 Anion Gap 6 BUN 9 Creatinine 0.59 Est GFR ( Amer) > 60 Glucose 87 Calcium 8.6 Total Bilirubin 2.5 H AST 58 H Alkaline Phosphatase 126 Total Protein 7.0 Albumin 3.9 06/01/20 20:00 Troponin I < 0.012 Impressions: Chest X-Ray 06/01/20 18:41 IMPRESSION: No acute pulmonary findings. Shoulder X-Ray 06/07/20 00:00 IMPRESSION: NEGATIVE STUDY OF THE LEFT SHOULDER. NO RADIOGRAPHIC EVIDENCE OF ACUTE INJURY. Upper Extremity MRI 06/12/20 00:00 IMPRESSION: No rotator cuff tear. Diffuse abnormal bone marrow signal consistent with reactivated bone marrow likely secondary to patient's known history of sickle cell anemia. No acute abnormality. Assessment & Plan - Diagnosis (1) Sickle cell pain crisis Is this a current diagnosis for this admission?: Yes Plan: Continue present treatment (2) Sickle cell anemia Qualifiers: Sickle-cell associated disorders: with unspecified crisis Qualified Code(s): D57.00 - Hb-SS disease with crisis, unspecified; D57.0 - Hb-SS disease with crisis Is this a current diagnosis for this admission?: Yes (3) Pain in left shoulder Qualifiers: Chronicity: chronic Qualified Code(s): M25.512 - Pain in left shoulder; G89.29 - Other chronic pain Is this a current diagnosis for this admission?: Yes - Time Time Spent with patient: Less than 15 minutes Level of Care: MEDICAL Medications reviewed and adjusted accordingly: Yes Anticipated DC Timeframe: within 36 hours
[2020-06-18] MEDS: 1/2 NORMAL SALINE 1,000 ML IV PRN ×3 (00:31→16:08)
[2020-06-18] MEDS: HYDROMORPHONE HCL INJ/PF 2 MG/ML AMPULE IV PRN ×10 (00:32→21:07)
[2020-06-18] MEDS: PROMETHAZINE HCL INJ 25 MG/1 ML VIAL IV PRN ×5 (00:32→19:01)
[2020-06-18] MEDS: DIPHENHYDRAMINE HCL 50 MG/ML VIAL IV PRN ×5 (02:58→21:06)
[2020-06-18] MEDS: EPOETIN ALFA-EPBX 40,000 UNIT/ML VIAL (NON-ESRD) IV SCH (08:35)
[2020-06-18] MEDS: JADENU (DEFERASIROX) 360 MG TABLET PO SCH (10:10)
[2020-06-18] MEDS: HYDROXYUREA 500 MG CAPSULE PO SCH ×2 (10:13→17:09)
[2020-06-18] MEDS: FOLIC ACID 1 MG TABLET PO SCH (10:13)
[2020-06-18] MEDS: ENOXAPARIN SODIUM INJ 40 MG/0.4 ML DISP.SYRIN SUBCUT SCH (10:13)
--- NOTE | 2020-06-18 12:14 | PDOC PROGRESS REPORT ---
Subjective Date:: 06/18/20 Subjective:: Patient is feeling about the same today. She has rash on her left arm that is i tching and is requesting more hydrocortisone cream which has helped. No other new concerns. Reason For Visit: CHILLS,SICKLE CELL PAIN CRISIS,SKIN RASH Physical Exam Vital Signs: Temp Pulse Resp BP Pulse Ox 98.7 F 80 20 106/63 100 06/18/20 10:00 06/18/20 08:00 06/18/20 08:00 06/18/20 08:00 06/18/20 08:00 Intake & Output 06/17/20 06/18/20 06/19/20 06:59 06:59 06:59 Intake Total 2250 2000 1000 Output Total 2600 2500 Balance -350 -500 1000 Weight 70 kg 62.9 kg General appearance: PRESENT: no acute distress Head exam: PRESENT: normocephalic Eye exam: PRESENT: EOMI Respiratory exam: PRESENT: unlabored Neurological exam: PRESENT: alert, awake Psychiatric exam: PRESENT: appropriate affect Skin exam: PRESENT: normal color Results Laboratory Results: 06/16/20 20:05 06/17/20 08:15 06/01/20 20:00 Troponin I < 0.012 Impressions: Chest X-Ray 06/01/20 18:41 IMPRESSION: No acute pulmonary findings. Shoulder X-Ray 06/07/20 00:00 IMPRESSION: NEGATIVE STUDY OF THE LEFT SHOULDER. NO RADIOGRAPHIC EVIDENCE OF ACUTE INJURY. Upper Extremity MRI 06/12/20 00:00 IMPRESSION: No rotator cuff tear. Diffuse abnormal bone marrow signal consistent with reactivated bone marrow likely secondary to patient's known history of sickle cell anemia. No acute abnormality. Assessment & Plan - Diagnosis (1) Sickle cell pain crisis Is this a current diagnosis for this admission?: Yes Plan: Labs are stable. She was transfused earlier this week. Continue pain medications, oxygen and fluids. (2) Iron overload due to repeated red blood cell transfusions Is this a current diagnosis for this admission?: Yes Plan: Continue Jadenu. - Time Time Spent with patient: Less than 15 minutes
--- NOTE | 2020-06-18 20:52 | PDOC PROGRESS REPORT ---
Subjective Date:: 06/18/20 Subjective:: Patient seen by the bedside she has no new complaints Reason For Visit: CHILLS,SICKLE CELL PAIN CRISIS,SKIN RASH Physical Exam Vital Signs: Temp Pulse Resp BP Pulse Ox 99.3 F 93 18 121/69 97 06/18/20 20:41 06/18/20 20:41 06/18/20 20:41 06/18/20 20:41 06/18/20 20:41 Intake & Output 06/17/20 06/18/20 06/19/20 06:59 06:59 06:59 Intake Total 2250 1999 263 Output Total 2600 2500 Balance -350 -500 2638 Weight 70 kg 62.9 kg General appearance: PRESENT: no acute distress Eye exam: PRESENT: PERRLA Respiratory exam: PRESENT: clear to auscultation carolyn Cardiovascular exam: PRESENT: +S1, +S2 Results Laboratory Results: 06/16/20 20:05 06/17/20 08:15 06/01/20 20:00 Troponin I < 0.012 Impressions: Chest X-Ray 06/01/20 18:41 IMPRESSION: No acute pulmonary findings. Shoulder X-Ray 06/07/20 00:00 IMPRESSION: NEGATIVE STUDY OF THE LEFT SHOULDER. NO RADIOGRAPHIC EVIDENCE OF ACUTE INJURY. Upper Extremity MRI 06/12/20 00:00 IMPRESSION: No rotator cuff tear. Diffuse abnormal bone marrow signal consistent with reactivated bone marrow likely secondary to patient's known history of sickle cell anemia. No acute abnormality. Assessment & Plan - Diagnosis (1) Sickle cell pain crisis Is this a current diagnosis for this admission?: Yes Plan: Continue treatment (2) Sickle cell anemia Qualifiers: Sickle-cell associated disorders: with unspecified crisis Qualified Code(s): D57.00 - Hb-SS disease with crisis, unspecified; D57.0 - Hb-SS disease with crisis Is this a current diagnosis for this admission?: Yes (3) Pain in left shoulder Qualifiers: Chronicity: chronic Qualified Code(s): M25.512 - Pain in left shoulder; G89 .29 - Other chronic pain Is this a current diagnosis for this admission?: Yes - Time Time Spent with patient: Less than 15 minutes Level of Care: MEDICAL Anticipated discharge: Home Anticipated DC Timeframe: within 24 hours
[2020-06-19] MEDS: HYDROMORPHONE HCL INJ/PF 2 MG/ML AMPULE IV PRN ×12 (00:02→23:28)
[2020-06-19] MEDS: 1/2 NORMAL SALINE 1,000 ML IV PRN ×2 (00:03→09:35)
[2020-06-19] MEDS: PROMETHAZINE HCL INJ 25 MG/1 ML VIAL IV PRN ×6 (00:03→21:20)
[2020-06-19] MEDS: DIPHENHYDRAMINE HCL 50 MG/ML VIAL IV PRN ×6 (02:15→23:29)
--- NOTE | 2020-06-19 07:29 | PDOC PROGRESS REPORT ---
Subjective Date:: 06/19/20 Subjective:: Patient states that she is feeling better and would like to go home today. She will discuss this with Dr. Mccabe. Reason For Visit: CHILLS,SICKLE CELL PAIN CRISIS,SKIN RASH Physical Exam Vital Signs: Temp Pulse Resp BP Pulse Ox 98.9 F 84 18 119/74 97 06/19/20 04:00 06/19/20 04:00 06/19/20 04:00 06/19/20 04:00 06/19/20 04:00 Intake & Output 06/18/20 06/19/20 06/20/20 06:59 06:59 06:59 Intake Total 1999 362 Output Total 2500 Balance -500 3628 Weight 62.9 kg 62.9 kg General appearance: PRESENT: no acute distress Head exam: PRESENT: normocephalic Eye exam: PRESENT: EOMI Respiratory exam: PRESENT: unlabored Extremities exam: ABSENT: pedal edema Neurological exam: PRESENT: alert, awake Psychiatric exam: PRESENT: appropriate affect Skin exam: PRESENT: normal color Results Laboratory Results: 06/16/20 20:05 06/17/20 08:15 06/01/20 20:00 Troponin I < 0.012 Impressions: Chest X-Ray 06/01/20 18:41 IMPRESSION: No acute pulmonary findings. Shoulder X-Ray 06/07/20 00:00 IMPRESSION: NEGATIVE STUDY OF THE LEFT SHOULDER. NO RADIOGRAPHIC EVIDENCE OF ACUTE INJURY. Upper Extremity MRI 06/12/20 00:00 IMPRESSION: No rotator cuff tear. Diffuse abnormal bone marrow signal consistent with reactivated bone marrow likely secondary to patient's known history of sickle cell anemia. No acute abnormality. Assessment & Plan - Diagnosis (1) Sickle cell pain crisis Is this a current diagnosis for this admission?: Yes (2) Iron overload due to repeated red blood cell transfusions Is this a current diagnosis for this admission?: Yes - Time Time Spent with patient: Less than 15 minutes - Plan Summary Plan Summary: Ready for discharge today. I will arrange all medication as outpatient. She will follow-up with me within 2 weeks.
[2020-06-19] MEDS: JADENU (DEFERASIROX) 360 MG TABLET PO SCH (08:36)
[2020-06-19] MEDS: FOLIC ACID 1 MG TABLET PO SCH (09:34)
[2020-06-19] MEDS: HYDROXYUREA 500 MG CAPSULE PO SCH ×2 (09:34→17:51)
[2020-06-19] MEDS: ENOXAPARIN SODIUM INJ 40 MG/0.4 ML DISP.SYRIN SUBCUT SCH (09:34)
--- NOTE | 2020-06-19 18:20 | PDOC PROGRESS REPORT ---
Subjective Date:: 06/19/20 Subjective:: Patient seen by the bedside she has no new complaints Reason For Visit: CHILLS,SICKLE CELL PAIN CRISIS,SKIN RASH Physical Exam Vital Signs: Temp Pulse Resp BP Pulse Ox 98.7 F 87 18 102/55 L 97 06/19/20 15:08 06/19/20 15:08 06/19/20 15:08 06/19/20 15:08 06/19/20 15:08 Intake & Output 06/18/20 06/19/20 06/20/20 06:59 06:59 06:59 Intake Total 1999 3628 1000 Output Total 2500 Balance -500 3628 1000 Weight 62.9 kg 62.9 kg General appearance: PRESENT: no acute distress Eye exam: PRESENT: PERRLA Respiratory exam: PRESENT: clear to auscultation carolyn Cardiovascular exam: PRESENT: +S1, +S2 Neurological exam: PRESENT: alert Results Laboratory Results: 06/16/20 20:05 06/17/20 08:15 06/01/20 20:00 Troponin I < 0.012 Impressions: Chest X-Ray 06/01/20 18:41 IMPRESSION: No acute pulmonary findings. Shoulder X-Ray 06/07/20 00:00 IMPRESSION: NEGATIVE STUDY OF THE LEFT SHOULDER. NO RADIOGRAPHIC EVIDENCE OF ACUTE INJURY. Upper Extremity MRI 06/12/20 00:00 IMPRESSION: No rotator cuff tear. Diffuse abnormal bone marrow signal consistent with reactivated bone marrow likely secondary to patient's known history of sickle cell anemia. No acute abnormality. Assessment & Plan - Diagnosis (1) Sickle cell pain crisis Is this a current diagnosis for this admission?: Yes (2) Sickle cell anemia Qualifiers: Sickle-cell associated disorders: with unspecified crisis Qualified Code(s): D57.00 - Hb-SS disease with crisis, unspecified; D57.0 - Hb-SS disease with crisis Is this a current diagnosis for this admission?: Yes (3) Pain in left shoulder Qualifiers: Chronicity: chronic Qualified Code(s): M25.512 - Pain in left shoulder; G89.29 - Other chronic pain Is this a current diagnosis for this admission?: Yes - Time Time Spent with patient: Less than 15 minutes Level of Care: MEDICAL Medications reviewed and adjusted accordingly: Yes Anticipated discharge: Home Anticipated DC Timeframe: within 24 hours
[2020-06-20] MEDS: HYDROMORPHONE HCL INJ/PF 2 MG/ML AMPULE IV PRN ×8 (01:34→17:58)
[2020-06-20] MEDS: 1/2 NORMAL SALINE 1,000 ML IV PRN ×2 (01:34→10:05)
[2020-06-20] MEDS: PROMETHAZINE HCL INJ 25 MG/1 ML VIAL IV PRN ×4 (01:34→15:56)
[2020-06-20] MEDS: DIPHENHYDRAMINE HCL 50 MG/ML VIAL IV PRN ×4 (03:55→17:59)
[2020-06-20] MEDS: JADENU (DEFERASIROX) 360 MG TABLET PO SCH (08:36)
[2020-06-20] MEDS: FOLIC ACID 1 MG TABLET PO SCH (10:04)
[2020-06-20] MEDS: ENOXAPARIN SODIUM INJ 40 MG/0.4 ML DISP.SYRIN SUBCUT SCH (10:05)
[2020-06-20] MEDS: HYDROXYUREA 500 MG CAPSULE PO SCH ×2 (10:05→17:58)
--- NOTE | 2020-06-20 13:11 | PDOC DISCHARGE SUMMARY ---
Impression - Admit/DC Date/PCP Admission Date/Primary Care Provider: 06/01/20 23:57 SAVANNA RAMIREZ MD Discharge Date: 06/20/20 - Discharge Diagnosis (1) Sickle cell pain crisis Is this a current diagnosis for this admission?: Yes (2) Sickle cell anemia Is this a current diagnosis for this admission?: Yes (3) Pain in left shoulder Is this a current diagnosis for this admission?: Yes - Additional Information Referrals: [facility] [Provider Group] - 07/03/20 3:00 pm Home Medications: Gabapentin [Neurontin 300 mg Capsule] 300 mg PO Q12 08/13/19 Hydroxyurea [Hydrea 500 mg Capsule] 500 mg PO TID 08/13/19 Oxycodone HCl [Oxy-Ir 5 mg Tablet] 10 mg PO Q6HP PRN 08/13/19 Cholecalciferol (Vitamin D3) [Vitamin D3 1000 Unit Tablet] 5,000 unit PO DAILY 11/29/19 Oxycodone Myristate [Xtampza ER] 1 cap PO Q12 06/02/20 History of Present Illiness History of Present Illness: WILLIE ALAN is a 50 year old female She came to the emergency room for evaluation of sickle cell pain crisis, she stated to the emergency room providers that are symptoms started about 2 days ago when she started having fever and chills and that a temperature was as high as 103 F she also stated that she has been taking Tylenol at home. The temperature recorded in the hospital was 98 F. Patient has multiple hospitalization for sickle cell related conditions.She was recently discharged from this hospital less than a month ago.She was rapidly tested for SARS-CoV-2 infection, it was negative Hospital Course Hospital Course: Patient was admitted for the management of sickle cell bone pain crisisShe was managed with IV fluid pain medication Dilaudid, she was seen in consultation by oncologist/purler, Dr. Ramirez .She also complains of bilateral shoulder pain, MRI was obtained, demonstrated old arthritic changes on the left shoulder. She recently seems to have frequent bone pain crisis requiring inpatient care usually prolonged hospital stay Physical Exam Vital Signs: Temp Pulse Resp BP Pulse Ox 98.7 F 82 18 120/72 98 06/20/20 11:27 06/20/20 11:27 06/20/20 11:27 06/20/20 11:27 06/20/20 11:27 Intake & Output 06/19/20 06/20/20 06/21/20 06:59 06:59 06:59 Intake Total 3627 1999 1399 Balance 3627 1999 1399 Weight 62.9 kg 62.9 kg General appearance: PRESENT: no acute distress Eye exam: PRESENT: PERRLA Respiratory exam: PRESENT: clear to auscultation carolyn Cardiovascular exam: PRESENT: +S1, +S2 GI/Abdominal exam: PRESENT: soft Neurological exam: PRESENT: alert Results Laboratory Results: WBC 4.8 10^3/uL (4.0-10.5) 06/16/20 20:05 RBC 1.68 10^6/uL (3.72-5.28) L 06/16/20 20:05 Hgb 7.2 g/dL (12.0-15.5) L 06/16/20 20:05 Hct 20.0 % (36.0-47.0) L 06/16/20 20:05 MCV 119 fl (80-97) H D 06/16/20 20:05 MCH 42.8 pg (27.0-33.4) H 06/16/20 20:05 MCHC 35.9 g/dL (32.0-36.0) 06/16/20 20:05 RDW 30.5 % (11.5-14.0) H 06/16/20 20:05 Plt Count 225 10^3/uL (150-450) 06/16/20 20:05 Lymph % (Auto) Not Reportable 06/16/20 20:05 [place] % (Auto) Not Reportable 06/16/20 20:05 Eos % (Auto) Not Reportable 06/16/20 20:05 Baso % (Auto) Not Reportable 06/16/20 20:05 Reticulocyte # 0.087 10^6/uL (0.028-0.122) 06/01/20 20:00 Absolute Neuts (auto) Not Reportable 06/16/20 20:05 Absolute Lymphs (auto) Not Reportable 06/16/20 20:05 Absolute Monos (auto) Not Reportable 06/16/20 20:05 Absolute Eos (auto) Not Reportable 06/16/20 20:05 Absolute Basos (auto) Not Reportable 06/16/20 20:05 Total Counted 100 06/16/20 20:05 Seg Neutrophils % Not Reportable 06/16/20 20:05 Seg Neuts % (Manual) 37 % (42-78) L 06/16/20 20:05 Band Neutrophils % Cancelled 06/14/20 05:50 Lymphocytes % (Manual) 48 % (13-45) H 06/16/20 20:05 Atypical Lymphs % Cancelled 06/14/20 05:50 Monocytes % (Manual) 5 % (3-13) 06/16/20 20:05 Eosinophils % (Manual) 10 % (0-6) H 06/16/20 20:05 Basophils % (Manual) 0 % (0-2) 06/16/20 20:05 Metamyelocytes % Cancelled 06/14/20 05:50 Myelocytes % Cancelled 06/14/20 05:50 Promyelocytes % Cancelled 06/14/20 05:50 Immature Leukocytes % Cancelled 06/14/20 05:50 Abs Neuts (Manual) 1.8 10^3/uL (1.7-8.2) 06/16/20 20:05 Abs Lymphs (Manual) 2.3 10^3/uL (0.5-4.7) 06/16/20 20:05 Abs Monocytes (Manual) 0.2 10^3/uL (0.1-1.4) 06/16/20 20:05 Absolute Eos (Manual) 0.5 10^3/uL (0.0-0.6) 06/16/20 20:05 Abs Basophils (Manual) 0.0 10^3/uL (0.0-0.2) 06/16/20 20:05 Nucleated RBCs 40 /100 WBC (0) 06/16/20 20:05 Differential Comment Cancelled 06/14/20 05:50 Hypersegmented Neuts Cancelled 06/14/20 05:50 Smudge Cells Cancelled 06/14/20 05:50 Toxic Granulation Cancelled 06/14/20 05:50 Toxic Vacuolation Cancelled 06/14/20 05:50 Dohle Bodies Cancelled 06/14/20 05:50 Julia Rods Cancelled 06/14/20 05:50 WBC Morphology Comment Cancelled 06/14/20 05:50 Platelet Estimate Cancelled 06/14/20 05:50 Clumped Platelets Cancelled 06/14/20 05:50 Large Platelets A 06/14/20 08:20 Giant Platelets Cancelled 06/14/20 05:50 Platelet Comment ADEQUATE 06/16/20 20:05 Polychromasia 1+ 06/16/20 20:05 Hypochromasia Cancelled 06/14/20 05:50 Poikilocytosis Cancelled 06/14/20 05:50 Basophilic Stippling Cancelled 06/14/20 05:50 Anisocytosis 4+ 06/16/20 20:05 Microcytosis Cancelled 06/14/20 05:50 Macrocytosis 3+ 06/16/20 20:05 Spherocytes Cancelled 06/14/20 05:50 Pappenheimer Bodies Cancelled 06/14/20 05:50 Sickle Cells Cancelled 06/14/20 05:50 Target Cells 2+ 06/16/20 20:05 Tear Drop Cells Cancelled 06/14/20 05:50 Ovalocytes 1+ 06/16/20 20:05 Stomatocytes Cancelled 06/14/20 05:50 Helmet Cells Cancelled 06/14/20 05:50 [place]-Walters Bodies Cancelled 06/14/20 05:50 [place] Cells Cancelled 06/14/20 05:50 Acanthocytes (Spur) Cancelled 06/14/20 05:50 Rouleaux Cancelled 06/14/20 05:50 Schistocytes Cancelled 06/14/20 05:50 RBC Morph Comment Cancelled 06/14/20 05:50 Retic Count (auto) 5.99 % (0.66-2.85) H 06/01/20 20:00 Sodium 137.6 mmol/L (137-145) 06/17/20 08:15 Potassium 4.5 mmol/L (3.6-5.0) 06/17/20 08:15 Chloride 105 mmol/L (98-107) 06/17/20 08:15 Carbon Dioxide 27 mmol/L (22-30) 06/17/20 08:15 Anion Gap 6 (5-19) 06/17/20 08:15 BUN 9 mg/dL (7-20) 06/17/20 08:15 Creatinine 0.59 mg/dL (0.52-1.25) 06/17/20 08:15 Est GFR ( Amer) > 60 (>60) 06/17/20 08:15 Est GFR (MDRD) Non-Af > 60 (>60) 06/17/20 08:15 Glucose 87 mg/dL (75-110) 06/17/20 08:15 Calcium 8.6 mg/dL (8.4-10.2) 06/17/20 08:15 Total Bilirubin 2.5 mg/dL (0.2-1.3) H 06/17/20 08:15 Direct Bilirubin 0.4 mg/dL (0.0-0.4) 06/17/20 08:15 Neonat Total Bilirubin Not Reportable 06/17/20 08:15 Neonat Direct Bilirubin Not Reportable 06/17/20 08:15 Neonat Indirect Bili Not Reportable 06/17/20 08:15 AST 58 U/L (14-36) H 06/17/20 08:15 ALT 35 U/L (<35) 06/17/20 08:15 Alkaline Phosphatase 126 U/L (38-126) 06/17/20 08:15 Lactate Dehydrogenase 354 U/L (120-246) H 06/17/20 08:15 Troponin I < 0.012 ng/mL 06/01/20 20:00 Total Protein 7.0 g/dL (6.3-8.2) 06/17/20 08:15 Albumin 3.9 g/dL (3.5-5.0) 06/17/20 08:15 Urine Color YELLOW 06/02/20 03:45 Urine Appearance CLEAR 06/02/20 03:45 Urine pH 7.0 (5.0-9.0) 06/02/20 03:45 Ur Specific [place] 1.009 06/02/20 03:45 Urine Protein NEGATIVE mg/dL (NEGATIVE) 06/02/20 03:45 Urine Glucose (UA) NEGATIVE mg/dL (NEGATIVE) 06/02/20 03:45 Urine Ketones NEGATIVE mg/dL (NEGATIVE) 06/02/20 03:45 Urine Blood NEGATIVE (NEGATIVE) 06/02/20 03:45 Urine Nitrite NEGATIVE (NEGATIVE) 06/02/20 03:45 Urine Bilirubin NEGATIVE (NEGATIVE) 06/02/20 03:45 Urine Urobilinogen 4.0 mg/dL (<2.0) H 06/02/20 03:45 Ur Leukocyte Esterase NEGATIVE (NEGATIVE) 06/02/20 03:45 Urine WBC (Auto) 0 /HPF 06/02/20 03:45 Urine RBC (Auto) 0 /HPF 06/02/20 03:45 Urine Mucus (Auto) RARE /LPF 06/02/20 03:45 Urine Ascorbic Acid NEGATIVE (NEGATIVE) 06/02/20 03:45 Influenza A (RT-PCR) NEGATIVE (NEGATIVE) 06/01/20 23:52 Influenza B (RT-PCR) NEGATIVE (NEGATIVE) 06/01/20 23:52 RSV (RT-PCR) NEGATIVE (NEGATIVE) 06/01/20 23:52 SARS-CoV-2 Rap RNA(RT-PCR) NEGATIVE (NEGATIVE) 06/01/20 23:52 Slides for Path Review Cancelled 06/14/20 05:50 Blood Type O POSITIVE 06/16/20 09:55 Antibody Screen NEGATIVE 06/16/20 09:55 Crossmatch See Detail 06/16/20 09:55 06/01/20 20:00 Troponin I < 0.012 Impressions: Chest X-Ray 06/01/20 18:41 IMPRESSION: No acute pulmonary findings. Shoulder X-Ray 06/07/20 00:00 IMPRESSION: NEGATIVE STUDY OF THE LEFT SHOULDER. NO RADIOGRAPHIC EVIDENCE OF ACUTE INJURY. Upper Extremity MRI 06/12/20 00:00 IMPRESSION: 1. Since the previous examination performed 12/12/2019, there has been no significant interval change. Partial thickness articular surface tear supraspinatus tendon similar in appearance to previous. 2. Subacromial/subdeltoid bursitis. 3. Heterogeneous bone marrow signal suggestive of reactivated bone marrow. This is probably secondary to patient's history of sickle cell anemia. Upper Extremity MRI 06/12/20 00:00 IMPRESSION: No rotator cuff tear. Diffuse abnormal bone marrow signal consistent with reactivated bone marrow likely secondary to patient's known history of sickle cell anemia. No acute abnormality. Stroke Is this a Stroke Patient?: No Acute Heart Failure Is this a Heart Failure Patient?: No
[2020-06-20 15:53] VITALS: BP 117/64
== END 2020-06-20 18:33 | disposition home or self-care (01) | DRG 812 ==
LOC: ER 18:30 → EH 23:57 → 5 06-02 02:18 → 2N 06-16 13:49
PROVIDERS: ADMIT Internal Medicine; ATTEND Internal Medicine
PROC: 30233N1 Transfusion of Nonautologous Red Blood Cells into Peripheral Vein, Percutaneous Approach (ICD-10-PCS; principal; 2020-06-16)
DX: D57.00 Hb-SS disease with crisis, unspecified (principal); M24.412 Recurrent dislocation, left shoulder; G89.29 Other chronic pain; M75.52 Bursitis of left shoulder; M75.112 Incomplete rotator cuff tear or rupture of left shoulder, not specified as traumatic; E83.111 Hemochromatosis due to repeated red blood cell transfusions; Z20.828 Contact with and (suspected) exposure to other viral communicable diseases; Z86.14 Personal history of Methicillin resistant Staphylococcus aureus infection; Z90.49 Acquired absence of other specified parts of digestive tract; Z88.1 Allergy status to other antibiotic agents
CPT/HCPCS: 36415; 36430; 71045; 80053; 81001; 83615; 84484; 85025; 85045; 86850; 86900; 86901; 86902; 86920; 87040; 93005; 93010; 96361; 96374; 96375; 96376; 99285; 0241U; C9803; J1170; J1200; J1642; J1650; J2270; J2405; J2550; J3411; J3475; J3480; J3490; J7030; P9016; Q5106

== ENCOUNTER 2020-07-07 00:07 | Emergency (ER) | payer MEDICAID ==
[2020-07-07] MEDS ORDERED: ONDANSETRON HCL INJ/PF 4 MG/2 ML SDV IV ONE ×2 (00:17→05:58)
[2020-07-07] MEDS ORDERED: NORMAL SALINE 1000 ML 1,000 ML IV ONE (00:17)
[2020-07-07] MEDS ORDERED: KETOROLAC TROMETHAMINE INJ/PF 30 MG/1 ML SDV IV ONE (00:17)
--- NOTE | 2020-07-07 00:19 | ER Document Report ---
ED Medical Screen (RME) - General Chief Complaint: Sickle Cell Crisis Stated Complaint: SICKLE CELL CRISIS Time Seen by Provider: 07/07/20 00:13 Primary Care Provider: SAVANNA AWAN MD [Primary Care Provider] - Follow up as needed - HPI Patient complains to provider of: Sickle cell pain Notes: 07/07/20 00:18 patient here with complaints of sickle cell pain. The patient complains of pain in her ankles, knees, hips, chest and back. She reports fevers at home of 102. Pain started a few days ago. She has nausea, but no vomiting. Nontoxic, no distress. Lungs cardiac throughout. Heart sounds normal. No respiratory distress. An initial examination was made on the patient as part of the triage process, and it was determined a more comprehensive evaluation was necessary. Initial orders were placed and patient was transferred to another provider in the ED who assumed care and finished evaluation and plan. - Related Data Allergies/Adverse Reactions: doxycycline [Doxycycline] Allergy (Severe, Verified 06/01/20 18:35) Past Medical History - Past Medical History Cardiac Medical History: Reports: Hx Heart Murmur Denies: Hx Atrial Fibrillation, Hx Congestive Heart Failure, Hx Coronary Artery Disease, Hx Heart Attack, Hx Hypercholesterolemia, Hx Hypertension, Hx Peripheral Vascular Disease Pulmonary Medical History: Denies: Hx Tuberculosis Neurological Medical History: Denies: Hx Seizures Renal/ Medical History: Reports: Hx Ovarian Cysts. 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 Denies: Hx HIV Past Surgical History: Reports: Hx Appendectomy, Hx Section, Hx Cholecystectomy, Hx Orthopedic Surgery - R knee, Hx Tonsillectomy. Denies: Hx Bowel Surgery, Hx Coronary Artery Bypass Graft, Hx Gastric Bypass Surgery, Hx Herniorrhaphy, Hx Mastectomy, Hx Pacemaker, Hx Tubal Ligation - Immunizations Immunizations up to date: Yes Hx Diphtheria, Pertussis, Tetanus Vaccination: Yes Doctor's Discharge - Discharge Referrals: SAVANNA AWAN MD [Primary Care Provider] - Follow up as needed
--- NOTE | 2020-07-07 01:51 | ER Document Report ---
ED General - General Chief Complaint: Sickle Cell Crisis Stated Complaint: SICKLE CELL CRISIS Time Seen by Provider: 07/07/20 00:13 Primary Care Provider: SAVANNA AWAN MD [Primary Care Provider] - Follow up as needed - HPI Notes: Chief Complaint: Body aches Historian: History obtained from patient HPI: This is a 50-year-old female presents the ER complaining of generalized body aches, fever, cough. Patient has sickle cell disease and feels this is likely from sickle cell crisis. She was admitted twice for sickle cell crisis in the past 2 months. Pt says her sx's started yesterday w/ temp of 101, cough, and body aches. Believes she got a cold from her nephew and reports a sore throat and congestion. denies covid contacts. Pt is followed by Dr. Viveros and Da, ROS: Constitutional: fever up to 101 HEENT: sore throat, congestion CV: chest pain Resp: no cough or SOB. GI: no abdominal pain, or n/v/d. : no dysuria, hematuria, or incont. MSK: mylagias Skin: no rashes or itching. Neuro: no seizures, weakness, numbness, or confusion. Hematological: no ecchymosis or easy bleeding. Endocrine: no polyuria/polydipsia, no heat/cold intolerance. Psych: no SI/HI, AH/VH or memory loss. PMHx: Reviewed and agree as charted by RN. PSHx: Reviewed and agree as charted by RN. SOCHx: Reviewed and agree as charted by RN. FHX: No significant familial comorbid conditions directly related to patient complaint Current Medications: Reviewed and agree with the patient medications as charted by the RN. Allergies: Reviewed and agree with the listed allergies as charted by the RN Physical Exam: Vitals: Reviewed in chart as documented by RN. General: Alert and in NAD. Head: Normocephalic; atraumatic Eyes: PERRLA, Conjunctivae clear sclerae non-icteric bilat ENT: no soft palate swelling or uvular deviation Neck: trachea midline, no unilateral swelling/tenderness/lymphadenopathy CV: RRR, no M/R/G; symmetric distal pulses Resp: respirations even and unlabored, CTA bilat. GI: abd soft and nondistended. NTTP. normal BS. no masses/HSM. no CVAT bilat MSK: FROM of all extremities. No midline CTL spine tenderness/deformity Skin: warm, moist, good turgor. no rash/lesions Neuro: Alert and oriented X 4. following CN 2-12 intact. no unilateral weakness/numbness Psych: No SI/HI or AH/VH. Medical Decision-making/Differential Diagnosis: Consider various etiologies including but not limited to Anemia, metabolic derangement, infection, vaso-occlusive crisis, aplastic crisis, splenic sequestration crisis (unlikely), acute chest syndrome, unlikely to represent ACS/CVA given history and physical, pulmonary/pleural-based processes plan for labs including reticulocyte count, LDH, CBC, and chemistries, intravenous fluid hydration, analgesics/SECURITIES CLERK, antihistamines prn, and a period of observation, if fails intermittent dosing/SECURITIES CLERK may require admission for further evaluation of life threatening causes of his pain, and pain control This course of action was discussed with the patient and/or family. They were amenable to this, verbalized understanding, and were without further questions. - Related Data Allergies/Adverse Reactions: doxycycline [Doxycycline] Allergy (Severe, Verified 06/01/20 18:35) Past Medical History - Social History Smoking Status: Never Smoker Family History: Reviewed & Not Pertinent - Past Medical History Cardiac Medical History: Reports: Hx Heart Murmur Denies: Hx Atrial Fibrillation, Hx Congestive Heart Failure, Hx Coronary Artery Disease, Hx Heart Attack, Hx Hypercholesterolemia, Hx Hypertension, Hx Peripheral Vascular Disease Pulmonary Medical History: Denies: Hx Tuberculosis Neurological Medical History: Denies: Hx Seizures Renal/ Medical History: Reports: Hx Ovarian Cysts. 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 Denies: Hx HIV Past Surgical History: Reports: Hx Appendectomy, Hx Section, Hx Cholecystectomy, Hx Orthopedic Surgery - R knee, Hx Tonsillectomy. Denies: Hx Bowel Surgery, Hx Coronary Artery Bypass Graft, Hx Gastric Bypass Surgery, Hx Herniorrhaphy, Hx Mastectomy, Hx Pacemaker, Hx Tubal Ligation - Immunizations Immunizations up to date: Yes Hx Diphtheria, Pertussis, Tetanus Vaccination: Yes Hx Pneumococcal Vaccination: 03/20/14 Physical Exam - Vital signs Vitals: Temp Pulse Resp BP Pulse Ox 99.2 F 77 20 100/66 100 07/07/20 00:18 07/07/20 00:18 07/07/20 00:18 07/07/20 00:18 07/07/20 00:18 Course - Re-evaluation Re-evalutation: 07/07/20 05:26 labs reviewed - hgb 7.7, improved from prior visits, usually in the 6's. retic count- 1.5- wnl. pts prior admission were 5.2 and 5.9. her remaining workup is at baseline. Pt continue to c/o uncontrolled pain in the ED. she recieved toradol and 2 doses of IV dilaudid. I updated pt regarding her reassuring workup and that she is not having a sickle cell crises. Pt nevertheless wants me to contact her pcp - Dr Flaherty- for admission for pain control. consulted Dr Flaherty- considering pts normal retic count and reassuring workup- he declines to admit pt to the hospital. recommended pt call his office and follow up for pain control. I will d/c pt home with his recommended plan. return factors discussed. - Vital Signs Vital signs: Temp Pulse Resp BP Pulse Ox 99.2 F 77 20 100/66 100 07/07/20 00:18 07/07/20 00:18 07/07/20 00:18 07/07/20 00:18 07/07/20 00:18 - Laboratory Results Result Diagrams: 07/07/20 02:15 07/07/20 02:15 Laboratory Results Interpreted: 07/07/20 07/07/20 02:15 02:15 RBC 1.78 L Hgb 7.7 L Hct 21.5 L MCV 121 H MCH 43.2 H RDW 26.7 H Reticulocyte # 0.027 L Lymphocytes % (Manual) 48 H Potassium 3.5 L Chloride 110 H Total Bilirubin 3.0 H Direct Bilirubin 0.7 H AST 50 H ALT 40 H Alkaline Phosphatase 135 H Creatine Kinase < 20 L Critical Laboratory Results Reviewed: No Critical Results - Radiology Results Critical Radiology Results Reviewed: No Critical Results - EKG Interpretation by Me EKG shows normal: Sinus rhythm Rate: Normal Rhythm: NSR [place]/QRS: No: Right axis deviation, Left axis deviation, RBBB, LBBB, IVCD, LAHB/LAFB, LPHB/LPFB, Bifasicular block Voltage: No: Increased voltage, Consistent with LVH, Consistent with RVH, Decreased voltage, Throughout, Limb leads P Waves: No: JUAN, LAE, Absent, AV Dissociation, Other When compared to previous EKG there are: No significant change Additional EKG results interpreted by me: 07/07/20 05:32 ECG reviewed by ER physician Discharge - Discharge Clinical Impression: Sickle cell anemia with pain Condition: Stable Disposition: HOME, SELF-CARE Instructions: Sickle Cell Crisis ([facility]) Additional Instructions: Follow all printed instructions. Take medications as prescribed. call you doctor today to schedule a follow up appointment. Return to the ER if your condition worsens. Referrals: SAVANNA AWAN MD [Primary Care Provider] - Follow up as needed HOMA BARRAZA MD [ACTIVE STAFF] - Follow up as needed
[2020-07-07 02:44] LABS: ABSOLUTE RETICS # 0.027 10^6/uL (0.028-0.122); HEMATOCRIT 21.5 % (36.0-47.0); MEAN CORPUSCULAR HEMOGLOBIN 43.2 pg (27.0-33.4); MEAN CORPUSCULAR HGB CONC 35.7 g/dL (32.0-36.0); MEAN CORPUSCULAR VOLUME 121 fl (80-97); PLATELET COUNT 228 10^3/uL (150-450); RED BLOOD COUNT 1.78 10^6/uL (3.72-5.28); RED CELL DISTRIBUTION WIDTH 26.7 % (11.5-14.0); RETICULOCYTE COUNT (AUTO) 1.51 % (0.66-2.85); WHITE BLOOD COUNT 4.5 10^3/uL (4.0-10.5)
[2020-07-07] MEDS: HYDROMORPHONE HCL INJ/PF 2 MG/ML AMPULE IV PRN ×3 (02:53→06:55)
[2020-07-07 02:54] LABS: ALBUMIN 4.1 g/dL (3.5-5.0); ALKALINE PHOSPHATASE 135 U/L (38-126); ANION GAP 8 (5-19); ASPARTATE AMINO TRANSFERASE 50 U/L (14-36); BILIRUBIN,DIRECT 0.7 mg/dL (0.0-0.4); BLOOD UREA NITROGEN 7 mg/dL (7-20); CALCIUM 8.7 mg/dL (8.4-10.2); CARBON DIOXIDE 22 mmol/L (22-30); CHLORIDE 110 mmol/L (98-107); GLUCOSE 97 mg/dL (75-110); POTASSIUM 3.5 mmol/L (3.6-5.0); TOTAL PROTEIN 7.1 g/dL (6.3-8.2)
[2020-07-07 03:04] LABS: CREATINE KINASE < 20 U/L (30-135)
--- NOTE | 2020-07-07 03:06 | RADIOLOGY REPORT (SQ) ---
CLINICAL INDICATION: sickle cell, CP. TECHNIQUE: A single portable AP view was obtained of the chest at 0121 hours. COMPARISON: June 01, 2020. FINDINGS: The cardiomediastinal silhouette is prominent. The lungs are grossly clear. No evidence of effusion or pneumothorax. Chronic parenchymal lung change. Left IJ power injectable port catheter. IMPRESSION: No evidence of active intrathoracic disease. Chronic change, no adverse change
[2020-07-07 03:07] LABS: CREATINE KINASE MB < 0.22 ng/mL (<4.55); TROPONIN I < 0.012 ng/mL
[2020-07-07 03:15] LABS: ABSOLUTE LYMPHOCYTES# (MANUAL) 2.2 10^3/uL (0.5-4.7); ABSOLUTE MONOCYTES # (MANUAL) 0.2 10^3/uL (0.1-1.4); BASOPHILS % (MANUAL) 0 % (0-2); EOSINOPHILS % (MANUAL) 2 % (0-6); LYMPHOCYTES % (MANUAL) 48 % (13-45); MONOCYTES % (MANUAL) 5 % (3-13); NUCLEATED RED BLOOD CELLS 9 /100 WBC (0); SEGMENTED NEUTROPHILS % (MAN) 45 % (42-78); TOTAL CELLS COUNTED 100
[2020-07-07 03:16] LABS: ANISOCYTOSIS 3+
[2020-07-07 03:17] LABS: HYPERSEGMENTED NEUTROPHILS PRESENT; PLATELET CLUMPS PRESENT; PLATELET COMMENT ADEQUATE
[2020-07-07 03:18] LABS: POLYCHROMASIA SLIGHT; SCHISTOCYTES SLIGHT; TARGET CELLS 1+
[2020-07-07 03:20] LABS: OVALOCYTES 1+; SICKLE RED CELLS SLIGHT
[2020-07-07 03:29] LABS: HEMOGLOBIN 7.7 g/dL (12.0-15.5)
[2020-07-07 05:29] LABS: APPEARANCE,URINE CLEAR; BILIRUBIN,URINE NEGATIVE (NEGATIVE); COLOR,URINE YELLOW; GLUCOSE, URINE NEGATIVE (NEGATIVE); KETONES,URINE TRACE mg/dL (NEGATIVE); LEUKOCYTE ESTERASE,URINE NEGATIVE (NEGATIVE); NITRITE,URINE NEGATIVE (NEGATIVE); PROTEIN,URINE NEGATIVE (NEGATIVE); URINE SPECIFIC GRAVITY 1.015
[2020-07-07] MEDS ORDERED: NORMAL SALINE 500 ML IV ONE (05:49)
[2020-07-07 07:14] VITALS: BP 113/73
--- NOTE | 2020-07-07 07:43 | EKG REPORT ---
SEVERITY:- NORMAL ECG - SINUS RHYTHM : Confirmed by: Killian Moraes MD 07-Jul-2020 07:42:33
== END 2020-07-07 07:03 | disposition home or self-care (01) ==
LOC: ER 00:07
DX: D57.1 Sickle-cell disease without crisis (principal); J02.9 Acute pharyngitis, unspecified; R07.9 Chest pain, unspecified; R50.9 Fever, unspecified; R05 Cough; Z88.1 Allergy status to other antibiotic agents
CPT/HCPCS: 93005; 36591; 96376; 99285; 96361; 96374; 96375; 36415; 82553; 82550; 85025; 85045; 80053; 81001; 84484; 71045; 93010; J1885; J1170; J2405; J7030; J7040; J1642